=== PATIENT | female | born 1965 | race American Indian/Alaskan Native ===

== ENCOUNTER 2017-02-15 08:26 | Outpatient (CLI) | payer OTHER ==
--- NOTE | 2017-02-15 09:39 | History and Physical Report ---
History of Present Illness Date of examination: 02/15/17 Chief complaint: rt. breast lesion Medications and Allergies Allergies Allergy/AdvReac Type Severity Reaction Status Date / Time No Known Allergies Allergy Unverified 03/25/14 11:38 Home Medications Medication Instructions Recorded Confirmed Last Taken Type Butalb/Acetamin/Caff 50-325-40 1 each PO Q4H PRN #7 tablet 03/25/14 Unknown Rx [Fioricet] amLODIPine [Norvasc] 5 mg PO DAILY #30 tab 03/25/14 Unknown Rx
--- NOTE | 2017-02-15 09:41 | Procedure Note ---
Date of procedure: 02/15/17 Pre-op diagnosis: rt. breast nodule Post-op diagnosis: same Procedure: rt.breast asp. Findings: cyst Anesthesia: local Surgeon: ARMANDO GRIFFIN Estimated blood loss: none Pathology: none Specimen disposition: discarded Condition: stable Disposition: same day
--- NOTE | 2017-02-15 10:09 | Ultrasound Report ---
Ultrasound guided right breast aspiration/right mammogram: The patient presents with outside images demonstrating a hypoechoic, elongated nodule in the 10:00 location with questionable correlation of small nodule on mammogram. Ultrasound imaging of the lateral breast demonstrates the nodule to be relatively anechoic. A second nodule containing a central hilum is also identified as seen on prior study. No other solid masses identified in the area of concern in the upper outer breast. The skin was cleansed with Betadine and 1% lidocaine used for local anesthesia. Under ultrasound guidance the hypoechoic nodule was entered with a 21-gauge needle. The nodule completely collapsed. There is no fluid return in the syringe cylinder. A two-view mammogram was then performed. The nodular area identified on outside mammogram is no longer noted. The mammogram appears generally unremarkable for any suspicious findings. Impressions: Right lymph node and aspirated cyst. Recommendation: Annual mammogram followup. BI-RADS CATEGORY: 2 = Benign ACR BI-RADS MAMMOGRAPHIC CODES: 0 = Needs additional imaging evaluation; 1 = Negative; 2 = Benign; 3 = Probably benign; 4 = Suspicious; 5 = Malignant; 6 = Known biopsy-proven malignancy COMMENT: 1. Dense breast tissue, i.e., adenosis, fibrocystic changes, etc., may obscure an underlying neoplasm. 2. Approximately 10% of cancers are not detected with mammography. 3. A negative mammography report should not delay biopsy if a clinically suspicious mass is present.
== END 2017-02-15 08:27 | disposition home or self-care (01) ==
LOC: US 08:26
PROVIDERS: ATTEND Internal Medicine
DX: N60.01 Solitary cyst of right breast (principal); N63 Unspecified lump in breast
CPT/HCPCS: 19000; G0206

== ENCOUNTER 2018-12-31 10:14 | Outpatient (CLI) | payer OTHER ==
--- NOTE | 2018-12-31 15:31 | Mammography Report ---
BILATERAL DIGITAL SCREENING MAMMOGRAM with CAD: 12/31/18 10:14:00 CLINICAL: Routine screening.History of a benign cyst aspiration of the right breast at 10 o'clock. COMPARISON:02/15/17 FINDINGS: The breasts are heterogeneously dense, which may obscure small masses.A partially circumscribed oval right upper asymmetry is identified on the MLO view and correlates with the previously described cyst that was aspirated. No mass, architectural distortion or suspicious calcifications. IMPRESSION: A benign right upper outer cyst. No mammographic evidence of malignancy. BI-RADS CATEGORY: 2 - - Benign RECOMMENDATION: Routine mammographic screening in one year. COMMENT: Patient follow-up letters are generated by our [employer] application.
== END 2018-12-31 10:15 | disposition home or self-care (01) ==
LOC: MAMMO 10:14
PROVIDERS: ATTEND Internal Medicine
DX: Z12.31 Encounter for screening mammogram for malignant neoplasm of breast (principal)
CPT/HCPCS: 77067

== ENCOUNTER 2021-02-25 00:29 | Emergency (ER) | payer OTHER ==
[2021-02-25 01:26] VITALS: BP 154/79
[2021-02-25] MEDS ORDERED: CONJUGATED ESTROGENS VAG CREAM 30 GM VG ONE (02:33)
[2021-02-25] MEDS ORDERED: SODIUM CHLORIDE 0.9% 1000 ML 1,000 ML IV ONE (02:33)
[2021-02-25] MEDS ORDERED: LORazepam 2 MG/ML VIAL IV ONE (02:34)
[2021-02-25 03:04] LABS: Basophils % (Auto) 0.5 % (0.0-1.8); Eosinophils % (Auto) 0.2 % (0.0-4.3); Hematocrit 39.5 % (30.3-42.9); Hemoglobin 13.1 gm/dl (10.1-14.3); Lymphocytes # (Auto) 1.7 K/mm3 (1.2-5.4); Lymphocytes % (Auto) 23.5 % (13.4-35.0); Mean Corpuscular HGB Conc 33 % (30-34); Mean Corpuscular Volume 85 fl (79-97); Monocytes # (Auto) 0.3 K/mm3 (0.0-0.8); Monocytes % (Auto) 4.1 % (0.0-7.3); Platelet Count 249 K/mm3 (140-440); Red Blood Count 4.64 M/mm3 (3.65-5.03); Red Cell Distribution Width 14.8 % (13.2-15.2)
--- NOTE | 2021-02-25 03:08 | XRay Report ---
CHEST 1 VIEW 02/25/2021 2:42 AM INDICATION / CLINICAL INFORMATION: weakness. COMPARISON: None available. FINDINGS: SUPPORT DEVICES: None. HEART / MEDIASTINUM: No significant abnormality. LUNGS / PLEURA: No significant pulmonary or pleural abnormality. No pneumothorax. ADDITIONAL FINDINGS: No significant additional findings. IMPRESSION: 1. No acute findings. Signer Name: Ciro Cavazos MD Signed: 02/25/2021 3:04 AM Workstation Name: [id number]
[2021-02-25 03:25] LABS: Alanine Aminotransferase 19 units/L (7-56); Albumin 4.7 g/dL (3.9-5); BUN/Creatinine Ratio 13; Blood Urea Nitrogen 13 mg/dL (7-17); Calcium 10.2 mg/dL (8.4-10.2); Hemolysis Index 4
[2021-02-25 03:58] LABS: Mucus,Urine FEW /HPF; RBC,Urine < 1.0 /HPF (0.0-6.0)
[2021-02-25 04:05] LABS: Bilirubin,Urine NEG (Negative); Blood,Urine NEG (Negative); Color,Urine Straw (Yellow); Protein,Urine <15 mg/dL mg/dL (Negative); Urobilinogen,Urine < 2.0 mg/dL (<2.0)
--- NOTE | 2021-02-25 04:51 | Emergency Department Report ---
ED General Adult HPI - General Chief complaint: Medical Clearance Stated complaint: HOT FLASHES Source: patient Mode of arrival: Ambulatory Limitations: No Limitations - History of Present Illness Initial comments: Patient is a 55-year-old postmenopausal -English female with a history of hypertension and anxiety who presents to the ED with complaint of diffuse body aches and pains, burning sensation all over her body with excessive sweats persistently for the last 1 week. Patient states that she knows she has a history of persistent hot flashes but that in the last 1 week her hot flashes have worsened especially in the last 2 days. Patient states that she is unable to sleep because of constantly feeling hot with joint pains and diffuse body aches. Patient states that she was evaluated by her primary care doctor 1 week ago and had some lab tests performed but she is yet to know the lab test results as she has an appointment to follow-up with her primary care physician in the next 5 days. Patient denies dizziness, syncope, chest pain, shortness of breath , fever, chills, cough, nausea and vomiting, diarrhea, dysuria, change in vision, palpitations, headache, cough or sore throat, nasal and sinus congestion. MD Complaint: "Hot flashes" , tingling and burning sensations -: Sudden, week(s) (1) Radiation: non-radiation Severity scale (0 -10): 6 Quality: burning, aching, constant Consistency: constant Improves with: none Worsens with: none Associated Symptoms: denies other symptoms, malaise. denies: confusion, chest pain, cough, diaphoresis, fever/chills, headaches, loss of appetite, nausea/vomiting, rash, seizure, shortness of breath, syncope, weakness Treatments Prior to Arrival: none - Related Data Previous Rx's Medication Instructions Recorded Last Taken Type Butalb/Acetamin/Caff 50-325-40 1 each PO Q4H PRN #7 tablet 03/25/14 Unknown Rx [Fioricet] amLODIPine [Norvasc] 5 mg PO DAILY #30 tab 03/25/14 Unknown Rx Estrogens, Conjugated [Premarin] 1 applicator VG QHS #1 tube 02/25/21 Unknown Rx hydrOXYzine PAMOATE [Vistaril] 50 mg PO Q12H PRN #30 capsule 02/25/21 Unknown Rx Allergies Allergy/AdvReac Type Severity Reaction Status Date / Time No Known Allergies Allergy Unverified 02/25/21 01:21 ED Review of Systems ROS: Stated complaint: HOT FLASHES Other details as noted in HPI Constitutional: malaise, other (diffuse body aches and "feeling hot"). denies: chills, fever, weakness Eyes: denies: eye pain, eye discharge, vision change ENT: denies: ear pain, throat pain, congestion Respiratory: denies: cough, shortness of breath, SOB with exertion, wheezing Cardiovascular: denies: chest pain, palpitations Endocrine: no symptoms reported Gastrointestinal: denies: abdominal pain, nausea, vomiting, diarrhea Genitourinary: denies: urgency, dysuria, discharge Musculoskeletal: arthralgia (diffuse body aches), myalgia, other. denies: back pain, joint swelling Skin: denies: rash, lesions Neurological: denies: headache, weakness, paresthesias Psychiatric: anxiety. denies: depression, auditory hallucinations, visual hallucinations, homicidal thoughts Hematological/Lymphatic: denies: easy bleeding, easy bruising ED Past Medical Hx - Past Medical History Hx Hypertension: Yes Hx Psychiatric Treatment: Yes (Anxiety) - Surgical History Additional Surgical History: c section x 1 - Social History Smoking Status: Never Smoker Substance Use Type: None - Medications Home Medications: Home Medications Medication Instructions Recorded Confirmed Last Taken Type Butalb/Acetamin/Caff 50-325-40 1 each PO Q4H PRN #7 tablet 03/25/14 Unknown Rx [Fioricet] amLODIPine [Norvasc] 5 mg PO DAILY #30 tab 03/25/14 Unknown Rx Estrogens, Conjugated [Premarin] 1 applicator VG QHS #1 tube 02/25/21 Unknown Rx hydrOXYzine PAMOATE [Vistaril] 50 mg PO Q12H PRN #30 capsule 02/25/21 Unknown Rx ED Physical Exam - General Limitations: No Limitations General appearance: alert, in no apparent distress - Head Head exam: Present: atraumatic, normocephalic, normal inspection - Eye Eye exam: Present: normal appearance, PERRL, EOMI Pupils: Present: normal accommodation - ENT ENT exam: Present: normal exam, normal orophraynx, mucous membranes moist, TM's normal bilaterally, normal external ear exam - Neck Neck exam: Present: normal inspection, full ROM. Absent: tenderness, meningismus, lymphadenopathy, thyromegaly - Respiratory Respiratory exam: Present: normal lung sounds bilaterally. Absent: respiratory distress, wheezes, rales, rhonchi, stridor, chest wall tenderness, accessory muscle use, prolonged expiratory - Cardiovascular Cardiovascular Exam: Present: regular rate, normal rhythm, normal heart sounds. Absent: systolic murmur, diastolic murmur, rubs, gallop - GI/Abdominal GI/Abdominal exam: Present: soft, normal bowel sounds. Absent: tenderness, guarding, rebound, hyperactive bowel sounds, hypoactive bowel sounds, organomegaly - Extremities Exam Extremities exam: Present: normal inspection, full ROM, normal capillary refill - Back Exam Back exam: Present: normal inspection, full ROM. Absent: tenderness, CVA tenderness (R), muscle spasm, paraspinal tenderness, vertebral tenderness - Neurological Exam Neurological exam: Present: alert, oriented X3, CN II-XII intact, normal gait, reflexes normal - Psychiatric Psychiatric exam: Present: normal affect, normal mood, anxious. Absent: homicidal ideation, suicidal ideation - Skin Skin exam: Present: warm, dry, intact, normal color. Absent: rash ED Course Vital Signs 02/25/21 01:21 Temperature 98.3 F Pulse Rate 72 Respiratory 18 Rate Blood Pressure 154/79 O2 Sat by Pulse 96 Oximetry ED Medical Decision Making - Lab Data Result diagrams: 02/25/21 02:48 02/25/21 02:48 - Radiology Data Radiology results: report reviewed, image reviewed [address] [address] XRay Report Signed Patient: KAYLA TUCKER MR#: [id number] : 1965 Acct:[id number] Age/Sex: 55 / F ADM Date: 02/25/21 Loc: ED Attending Dr: Ordering Physician: BHPUINDER HENDERSON Date of Service: 02/25/21 Procedure(s): XR chest 1V ap Accession Number(s): [id number] cc: BHUPINDER HENDERSON Fluoro Time In Minutes: CHEST 1 VIEW 02/25/2021 2:42 AM INDICATION / CLINICAL INFORMATION: weakness. COMPARISON: None available. FINDINGS: SUPPORT DEVICES: None. HEART / MEDIASTINUM: No significant abnormality. LUNGS / PLEURA: No significant pulmonary or pleural abnormality. No pneumothorax. ADDITIONAL FINDINGS: No significant additional findings. IMPRESSION: 1. No acute findings. Signer Name: Ciro Cavazos MD Signed: 02/25/2021 3:04 AM Workstation Name: [id number] Transcribed By: MAURO Dictated By: Ciro Cavazos MD Electronically Authenticated By: Ciro Cavazos MD Signed Date/Time: 02/25/21303 DD/ 2 TD/TT: - Medical Decision Making This is a 55-year-old postmenopausal -English female with a history of hypertension and anxiety who presents to the ED with complaint of diffuse body aches and pains, burning sensation all over her body with excessive sweats persistently for the last 1 week. Patient states that she knows she has a history of persistent hot flashes but that in the last 1 week her hot flashes have worsened especially in the last 2 days. Patient states that she is unable to sleep because of constantly feeling hot with joint pains and diffuse body aches. Patient states that she was evaluated by her primary care physician 1 week ago and had some lab tests performed but she is yet to know the lab test results as she has an appointment to follow-up with her primary care physician in the next 5 days. In the ED, patient is alert and oriented x3 and is not in any distress but anxious during the physical exam. Lab test results were reviewed and are all nonactionable. Patient was treated in the ED with normal saline 1 L IV bolus and Ativan for anxiety. On reevaluation, patient felt better and her symptoms resolved and was discharged home on medications. Patient was advised to follow-up with her primary care physician as previously scheduled in 5 days or return to the ED immediately if symptoms get worse. - Differential Diagnosis anxiety; post-menopausal symptoms "Hot flashes", Pneumonia; Viral Syndrome Critical care attestation.: If time is entered above; I have spent that time in minutes in the direct care of this critically ill patient, excluding procedure time. ED Disposition Clinical Impression: Anxiety as acute reaction to exceptional stress, Hot flashes due to menopause Disposition: - TO HOME OR SELFCARE Is pt being admited?: No Does the pt Need Aspirin: No Condition: Stable Instructions: Generalized Anxiety Disorder, Adult, Menopause and Hormone Replacement Therapy Additional Instructions: All lab test results were reviewed and are all nonactionable. Your symptoms are likely due to anxiety complicated by your hot flashes. Therefore take medications as advised, drink plenty of fluids and follow-up with your primary care physician in 5 to 7 days for reevaluation. Return to the ED immediately if symptoms get worse. Prescriptions: Estrogens, Conjugated [Premarin] 1 applicator VG QHS #1 tube hydrOXYzine PAMOATE [Vistaril] 50 mg PO Q12H PRN #30 capsule PRN Reason: Anxiety Referrals: [facility] [Provider Group] - 3-5 Days Forms: Work/School Release Form(ED) Time of Disposition: 04:49 Print Language: [place] CITIZ[place]
== END 2021-02-25 05:10 | disposition home or self-care (01) ==
LOC: ED 00:29
DX: F41.1 Generalized anxiety disorder (principal); F43.0 Acute stress reaction; N95.1 Menopausal and female climacteric states; I10 Essential (primary) hypertension; F41.9 Anxiety disorder, unspecified; Z98.890 Other specified postprocedural states; Z79.899 Other long term (current) drug therapy
CPT/HCPCS: 36415; 71045; 80053; 81001; 84443; 85025; 96361; 96374; 99284; J2060; J7030

== ENCOUNTER 2021-07-18 14:26 | Inpatient (IN) | payer OTHER ==
[2021-07-18] MEDS ORDERED: KETAMINE 500 MG/5 ML VIAL MDV ONE ×2 (14:29→18:30)
[2021-07-18] MEDS ORDERED: ROCURONIUM 50 MG/5 ML INJ IV ONE ×2 (14:29→14:44)
[2021-07-18] MEDS ORDERED: LIP THERAPY VASELINE TP PRN (14:41)
[2021-07-18] MEDS ORDERED: fentaNYL 100 MCG/2 ML INJ IV PRN (14:41)
[2021-07-18] MEDS ORDERED: MINERAL OIL/PETROLATUM, WHITE OPHTH OINT 3.5 GM OU PRN (14:41)
[2021-07-18] MEDS ORDERED: SODIUM CHLORIDE 0.9% 500 ML 500 ML IV ONE (14:44)
[2021-07-18] MEDS ORDERED: KETAMINE 200 MG/20 ML INJ MDV IV ONE ×2 (14:44→18:28)
--- NOTE | 2021-07-18 14:49 | Emergency Department Report ---
ED General Adult HPI - General Chief complaint: Dyspnea/Respdistress Stated complaint: LIZZY PUI?: Yes Time Seen by Provider: 07/18/21 14:40 Source: patient, EMS (Verbal report received from emergency medical services. EMS documentation not available at time of chart dictation ), RN notes reviewed, old records reviewed Mode of arrival: Stretcher Limitations: Altered Mental Status - History of Present Illness Initial comments: The patient was evaluated in the emergency department for symptoms described in the history of present illness. He/she was evaluated in the context of the global COVID-19 pandemic, which necessitated consideration that the patient might be at risk for infection with the virus that causes COVID-19. Institutional protocols and algorithms that pertain to the evaluation of patients at risk for COVID-19 are in a state of rapid change based on information released by regulatory bodies including the CDC and federal and state organizations. These policies and algorithms were followed during the patient's care in the emergency department. Please note that these policies, procedures and recommendations changed on a rapid basis. During the history and physical examination, I had on complete and maximal proximal protective equipment. The patient is a 55-year-old female with a history of obesity and diabetes who is not known to myself previously. She arrives via EMS on a CPAP, and with simultaneous supplemental oxygen running, and is altered, and history is obtained via EMS. EMS reports that they picked up this patient with a complaint of shortness of breath and change in mental status. Her last known well time is not explicitly known. EMS reports the patient was hypoxic in the field to the 50s. On CPAP, she is saturating in the high 60s/low 70s. She is awake and moving 4 extremities. She occasionally tries to take off the CPAP. She is instructed to not take off the CPAP. However, she is altered, does not follow commands or understand instructions. EMS reported normal Accu-Chek in the field. Secondary to alteration in mental status, acute hypoxic respiratory failure, o bvious failure of positive pressure ventilation, this patient is emergently intubated by myself for definitive airway protection. Patient continued on CPAP, and nasal cannula at 15 L/min. She is induced with 200 mg of ketamine, and paralyzed with 100 mg of rocuronium. She receives [id number]-[id number] ventilation, and O2 sat is improved to 91%. Video laryngoscopy is performed, and a 7.5 endotracheal tube is inserted under direct visualization without difficulty. The patient herself is altered, not able to describe the qualitative nature of her symptoms, exacerbating factors, relieving factors or aggravating factors. She is not currently accompanied by friends or family at this time for addit ional information or collateral information -: unknown - Related Data Previous Rx's Medication Instructions Recorded Last Taken Type Butalb/Acetamin/Caff 50-325-40 1 each PO Q4H PRN #7 tablet 03/25/14 Unknown Rx [Fioricet] amLODIPine [Norvasc] 5 mg PO DAILY #30 tab 03/25/14 Unknown Rx Estrogens, Conjugated [Premarin] 1 applicator VG QHS #1 tube 02/25/21 Unknown Rx hydrOXYzine PAMOATE [Vistaril] 50 mg PO Q12H PRN #30 capsule 02/25/21 Unknown Rx Allergies Allergy/AdvReac Type Severity Reaction Status Date / Time No Known Allergies Allergy Unverified 02/25/21 01:21 ED Review of Systems ROS: Stated complaint: LIZZY Other details as noted in HPI Comment: Unobtainable due to pts medical conditions ED Past Medical Hx - Past Medical History Hx Hypertension: Yes Hx Psychiatric Treatment: Yes (Anxiety) - Surgical History Additional Surgical History: c section x 1 - Social History Smoking Status: Never Smoker Substance Use Type: None - Medications Home Medications: Home Medications Medication Instructions Recorded Confirmed Last Taken Type Butalb/Acetamin/Caff 50-325-40 1 each PO Q4H PRN #7 tablet 03/25/14 Unknown Rx [Fioricet] amLODIPine [Norvasc] 5 mg PO DAILY #30 tab 03/25/14 Unknown Rx Estrogens, Conjugated [Premarin] 1 applicator VG QHS #1 tube 02/25/21 Unknown Rx hydrOXYzine PAMOATE [Vistaril] 50 mg PO Q12H PRN #30 capsule 02/25/21 Unknown Rx ED Physical Exam - General Limitations: Altered Mental Status General appearance: anxious, in distress, obese - Head Head exam: Present: atraumatic, normocephalic - Eye Eye exam: Present: normal appearance, PERRL, EOMI - ENT ENT exam: Present: normal exam, normal orophraynx, mucous membranes moist, normal external ear exam - Neck Neck exam: Present: normal inspection, full ROM. Absent: tenderness, meningismus - Respiratory Respiratory exam: Present: accessory muscle use, other (Pulmonary auscultation not performed secondary to lack of disposable stethoscope). 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 Absent: distended, tenderness, guarding, rebound, rigid, pulsatile mass - Extremities Exam Extremities exam: Present: normal inspection, full ROM, other (2+ pulses noted in the bilateral upper and lower extremities. There is no palpable cord. negative Homans sign. Muscular compartments are soft. The pelvis is stable.). Absent: pedal edema, calf tenderness - Back Exam Back exam: Present: normal inspection. Absent: tenderness, CVA tenderness (R), CVA tenderness (L), paraspinal tenderness, vertebral tenderness - Neurological Exam Neurological exam: Present: altered, other (Patient is awake. The patient is nonverbal. The patient is moving 4 extremities.) - Psychiatric Psychiatric exam: Present: anxious - Skin Skin exam: Present: warm, dry, intact, normal color. Absent: rash ED Course Vital Signs 07/18/21 07/18/21 07/18/21 14:40 14:43 14:46 Temperature Pulse Rate 109 H 118 H Respiratory 26 H Rate Blood Pressure 114/70 O2 Sat by Pulse 84 94 91 Oximetry 07/18/21 07/18/21 07/18/21 15:00 15:16 15:22 Temperature 101.8 F H Pulse Rate 110 H 105 H Respiratory 26 H 26 H Rate Blood Pressure 114/70 114/70 O2 Sat by Pulse 87 88 Oximetry 07/18/21 15:37 Temperature Pulse Rate Respiratory Rate Blood Pressure O2 Sat by Pulse 93 Oximetry - Reevaluation(s) Reevaluation #1: 07/18/21 14:50 Differential diagnosis, including but not limited to: Acute hypoxic respiratory failure, acute hypercarbic respiratory failure, acute encephalopathy, toxic metabolic encephalopathy, COVID-19, pneumonia, pulmonary embolism Assessment and plan: 55-year-old female with a nonfocal motor neurologic examination, he was awake, but altered, with an exact last known well time not known, presenting with acute hypoxic respiratory failure and concomitant encephalopathy, has failed positive pressure ventilation, and requires me chanical ventilation for definitive airway management. Place patient on isolation. Start steroids and fluids empirically. Patient likely has Covid, so even though she rules in for sepsis/systemic inflammatory response syndrome, we will withhold 30 cc/kg bolus of IV fluid, these patients may develop acute respiratory distress syndrome. We will defer to the inpatient team to further manage her fluid requirements. We will obtain stat chest x-ray, and CT scan of the brain, and CT angiogram of t he chest. She will be admitted to our critical care unit, and ventilated on a lung protective strategy. Courtesy consultation will be placed for infectious disease to follow on the inpatient side of things, and make recommendations for remdesivir versus other. I will defer to the inpatient team to further follow-up on infectious disease recommendations. I contacted our critical care physician, Dr. Rome, and discussed the patient's history, physical, and available data points at this time. He will be updated in real-time, however, he agrees with placement into the intensive care unit. Start steroids, rectal temperature, stat Accu-Chek, admit to our ICU after initial diagnostics have resulted. 07/18/21 17:08 Patient comfortable on mechanical ventilation. Blood pressure in the 140s/150s at this time. O2 sat 96% on mechanical ventilation. Laboratory studies suggestive of Covid inflammatory process. Elevated troponin is likely a type II troponin leak. CT scan of the brain, CT angiogram chest pending at this time. 07/18/21 17:27 Arterial blood gas demonstrates metabolic acidosis and respiratory acidosis 07/18/21 17:29 07/18/21 17:42 Patient was on 15 mcg per kg per minute of propofol. Blood pressure decreased to the high 70s/low 80s. Propofol decreased. IV fluids ordered. 07/18/21 18:13 As propofol is down titrated, the patient becomes more awake, and agitated. She requires sedation to allow acquisition of diagnostic studies, and to allow for mechanical ventilation. We will de-escalate propofol, and initiate midazolam. We will give a one-time dose of ketamine. Nursing team endorses that the patient is on max dose fentanyl. 07/18/21 18:29 Reevaluation #2: 07/18/21 18:57 After 200 mg of ketamine was personally administered by myself, patient received CT scan of the brain, CT angiogram of the chest without significant incident. Blood pressure currently 114 systolic millimeters of mercury. Patient dissociated. Patient still mechanically ventilated. Antibiotics and steroids ordered. Noncontrast CT scan of the brain to md appears negative for bleed. CT scan of the chest shows multi lobar pneumonia. Hospital physician, Dr. Nat Pacheco to admit to ICU Also, rediscussed sedation package with critical care physician, Dr. Rome. We will de-escalate propofol, and initiate midazolam drip. Further sedation package will depend on how patient tolerates this procedure. 07/18/21 18:59 CT scan chest shows multiple segmental pulmonary emboli. As per discussion with interpreting radiologist, Dr. Gould, there is no saddle pulmonary embolism, no CT evidence of right heart strain, and no main pulmonary artery embolism. We will initiate therapeutic anticoagulation with Lovenox, once noncontrast CT scan of the brain has been interpreted. - Intubation Time Out Performed: No (Emergency situation) Sedative: Ketamine Mg Given: 200 Paralytic: Rocuronium Mg Given: 100 Laryngoscope: fiberoptic video scope Size: 4 Assist Device Used: fiberoptic device ET Tube Size: 7.5 Tube Secured Depth (cm): 22 Tube Secured Location: teeth Tube Placement Confirmation: visualized tube passing t, equal breath sounds bilat, no breath sounds over epi, confirmation by capnometr Patient Tolerated Procedure: well Intubation Complications: none ED Medical Decision Making - Lab Data Result diagrams: 07/18/21 16:00 07/18/21 16:00 Vital Signs 07/18/21 07/18/21 07/18/21 14:40 14:46 15:00 Temperature Pulse Rate 118 H 110 H Respiratory 26 H 26 H Rate Blood Pressure 114/70 O2 Sat by Pulse 84 91 87 Oximetry 07/18/21 07/18/21 15:16 15:22 Temperature 101.8 F H Pulse Rate 105 H Respiratory 26 H Rate Blood Pressure 114/70 O2 Sat by Pulse 88 Oximetry Lab Results 07/18/21 07/18/21 07/18/21 Range/Units 16:00 16:00 16:00 WBC 10.4 (4.5-11.0) K/mm3 RBC 4.20 (3.65-5.03) M/mm3 Hgb 11.6 (10.1-14.3) gm/dl Hct 36.0 (30.3-42.9) % MCV 86 (79-97) fl MCH 28 (28-32) pg MCHC 32 (30-34) % RDW 15.3 H (13.2-15.2) % Plt Count 228 (140-440) K/mm3 Lymph % (Auto) 7.9 L (13.4-35.0) % Ocean % (Auto) 5.6 (0.0-7.3) % Eos % (Auto) 0.0 (0.0-4.3) % Baso % (Auto) 0.2 (0.0-1.8) % Lymph # (Auto) 0.8 L (1.2-5.4) K/mm3 Ocean # (Auto) 0.6 (0.0-0.8) K/mm3 Eos # (Auto) 0.0 (0.0-0.4) K/mm3 Baso # (Auto) 0.0 (0.0-0.1) K/mm3 Seg Neutrophils % 86.3 H (40.0-70.0) % Seg Neutrophils # 9.0 H (1.8-7.7) K/mm3 PT 15.1 H (12.2-14.9) Sec. INR 1.13 (0.87-1.13) APTT 31.9 (24.2-36.6) Sec. Sodium 141 (137-145) mmol/L Potassium 3.5 L (3.6-5.0) mmol/L Chloride 104.3 (98-107) mmol/L Carbon Dioxide 20 L (22-30) mmol/L Anion Gap 20 mmol/L BUN 19 H (7-17) mg/dL Creatinine 1.2 (0.6-1.2) mg/dL Estimated GFR 57 ml/min BUN/Creatinine Ratio 16 % Glucose 140 H (65-100) mg/dL Lactic Acid (0.7-2.0) mmol/L Calcium 8.4 (8.4-10.2) mg/dL Total Bilirubin 0.20 (0.1-1.2) mg/dL AST 43 H (5-40) units/L ALT 16 (7-56) units/L Alkaline Phosphatase 61 (35-129) units/L Lactate Dehydrogenase 705 H (91-180) units/L Total Creatine Kinase 157 H (30-135) units/L C-Reactive Protein 33.00 H (0.00-1.30) mg/dL Total Protein 7.1 (6.3-8.2) g/dL Albumin 3.2 L (3.9-5) g/dL Albumin/Globulin Ratio 0.8 % Salicylates (2.8-20.0) mg/dL Acetaminophen (10.0-30.0) ug/mL Plasma/Serum Alcohol (0-0.07) % Blood Type 07/18/21 07/18/21 07/18/21 Range/Units 16:00 16:00 16:00 WBC (4.5-11.0) K/mm3 RBC (3.65-5.03) M/mm3 Hgb (10.1-14.3) gm/dl Hct (30.3-42.9) % MCV (79-97) fl MCH (28-32) pg MCHC (30-34) % RDW (13.2-15.2) % Plt Count (140-440) K/mm3 Lymph % (Auto) (13.4-35.0) % Ocean % (Auto) (0.0-7.3) % Eos % (Auto) (0.0-4.3) % Baso % (Auto) (0.0-1.8) % Lymph # (Auto) (1.2-5.4) K/mm3 Ocean # (Auto) (0.0-0.8) K/mm3 Eos # (Auto) (0.0-0.4) K/mm3 Baso # (Auto) (0.0-0.1) K/mm3 Seg Neutrophils % (40.0-70.0) % Seg Neutrophils # (1.8-7.7) K/mm3 PT (12.2-14.9) Sec. INR (0.87-1.13) APTT (24.2-36.6) Sec. Sodium (137-145) mmol/L Potassium (3.6-5.0) mmol/L Chloride (98-107) mmol/L Carbon Dioxide (22-30) mmol/L Anion Gap mmol/L BUN (7-17) mg/dL Creatinine (0.6-1.2) mg/dL Estimated GFR ml/min BUN/Creatinine Ratio % Glucose (65-100) mg/dL Lactic Acid 1.40 (0.7-2.0) mmol/L Calcium (8.4-10.2) mg/dL Total Bilirubin (0.1-1.2) mg/dL AST (5-40) units/L ALT (7-56) units/L Alkaline Phosphatase (35-129) units/L Lactate Dehydrogenase (91-180) units/L Total Creatine Kinase (30-135) units/L C-Reactive Protein (0.00-1.30) mg/dL Total Protein (6.3-8.2) g/dL Albumin (3.9-5) g/dL Albumin/Globulin Ratio % Salicylates < 0.3 L (2.8-20.0) mg/dL Acetaminophen 5.7 L (10.0-30.0) ug/mL Plasma/Serum Alcohol (0-0.07) % Blood Type 07/18/21 07/18/21 Range/Units 16:00 16:05 WBC (4.5-11.0) K/mm3 RBC (3.65-5.03) M/mm3 Hgb (10.1-14.3) gm/dl Hct (30.3-42.9) % MCV (79-97) fl MCH (28-32) pg MCHC (30-34) % RDW (13.2-15.2) % Plt Count (140-440) K/mm3 Lymph % (Auto) (13.4-35.0) % Ocean % (Auto) (0.0-7.3) % Eos % (Auto) (0.0-4.3) % Baso % (Auto) (0.0-1.8) % Lymph # (Auto) (1.2-5.4) K/mm3 Ocean # (Auto) (0.0-0.8) K/mm3 Eos # (Auto) (0.0-0.4) K/mm3 Baso # (Auto) (0.0-0.1) K/mm3 Seg Neutrophils % (40.0-70.0) % Seg Neutrophils # (1.8-7.7) K/mm3 PT (12.2-14.9) Sec. INR (0.87-1.13) APTT (24.2-36.6) Sec. Sodium (137-145) mmol/L Potassium (3.6-5.0) mmol/L Chloride (98-107) mmol/L Carbon Dioxide (22-30) mmol/L Anion Gap mmol/L BUN (7-17) mg/dL Creatinine (0.6-1.2) mg/dL Estimated GFR ml/min BUN/Creatinine Ratio % Glucose (65-100) mg/dL Lactic Acid (0.7-2.0) mmol/L Calcium (8.4-10.2) mg/dL Total Bilirubin (0.1-1.2) mg/dL AST (5-40) units/L ALT (7-56) units/L Alkaline Phosphatase (35-129) units/L Lactate Dehydrogenase (91-180) units/L Total Creatine Kinase (30-135) units/L C-Reactive Protein (0.00-1.30) mg/dL Total Protein (6.3-8.2) g/dL Albumin (3.9-5) g/dL Albumin/Globulin Ratio % Salicylates (2.8-20.0) mg/dL Acetaminophen (10.0-30.0) ug/mL Plasma/Serum Alcohol < 0.01 (0-0.07) % Blood Type O POSITIVE - EKG Data -: EKG Interpreted by Oh Rate: tachycardia - EKG Data When compared to previous EKG there are: previous EKG unavailable 07/18/21 15:11 EKG is interpreted at 14: 53 Sinus rhythm, tachycardia, rate 111 bpm. Normal P wave axis. Left axis deviation, left anterior fascicular block. Poor R wave progression. Borderline left ventricular hypertrophy. Nonspecific ST depression. Abnormal EKG. Not a STEMI. - Radiology Data Radiology results: report reviewed, image reviewed [facility] [address] [place] [address] XRay Report Signed Patient: KAYLA TUCKER MR#: [id number] : 1965 Acct:[id number] Age/Sex: 55 / F ADM Date: 07/18/21 Loc: ED Attending Dr: Ordering Physician: GIL SALAS MD Date of Service: 07/18/21 Procedure(s): XR chest 1V ap Accession Number(s): [id number] cc: GIL SALAS MD Fluoro Time In Minutes: CHEST 1 VIEW 07/18/2021 3:04 PM INDICATION / CLINICAL IN FORMATION: Altered Mental Status /ETT PLACEMENT. COMPARISON: 02/25/2021 FINDINGS: SUPPORT DEVICES: ET tube tip 5.5 cm above mirian. NG tube has tip at GE junction with side hole noted in the distal thoracic esophagus. Recommend advancing another 15 cm HEART / MEDIASTINUM: No significant abnormality. LUNGS / PLEURA: Moderate to severe bilateral pneumonia No pneumothorax. ADDITIONAL FINDINGS: No significant additional findings. IMPRESSION: 1. Moderate to severe bilateral pneumonia 2. Malpositioned NG tube tip in distal thoracic esophagus. Signer Name: Vinod Spangler MD Signed: 07/18/2021 3:23 PM Workstation Name: [id number] Transcribed By: TL Dictated By: Vinod Spangler MD Elect ronically Authenticated By: Vinod Spangler MD Signed Date/Time: 07/18/21 1523 DD/ 1522 CT HEAD WITHOUT CONTRAST INDICATION / CLINICAL INFORMATION: Altered Mental Sta tus. TECHNIQUE: All CT scans at this location are performed using CT dose reduction for ALARA by means of automated exposure control. COMPARISON: None available. FINDINGS: HEMORRHAGE: No evidence of intracranial hemorrhage or extra-axial fluid collection. EXTRA-AXIAL SPACES: Cortical sulci, sylvian fissures and basilar cisterns have an unremarkable appearance. VENTRICULAR SYSTEM: The third and lateral ventricles are of normal size and configuration. CEREBRAL PARENCHYMA: No areas of abnormal brain parenchymal attenuation are identified. There is no indication of recent infarction. MIDLINE SHIFT OR HERNIATION: There is no mass effect. CEREBELLUM / BRAINSTEM: Brainstem and cerebellum have an unremarkable appearance. MIDLINE STRUCTURES:No abnormalities of the pituitary gland or pineal region are identified. INTRACRANIAL VESSELS:No abnormalities are identified on this noncontrast head CT. ORBITS: visualized portions of the orbits have an unremarkable appearance. SOFT TISSUES of HEAD: No significant abnormality. CALVARIUM: Evaluation of bone windows reveals no abnormalities. PARANASAL SINUSES / MASTOID AIR CELLS: Visualized portions of the paranasal sinuses are free from inflammatory mucosal disease. Mastoid air cells are normally pneumatized. IMPRESSION: 1. No significant abnormality on head CT without contrast. Signer Name: Cresencio Weiner MD Signed: 07/18/2021 6:01 PM CTA CHEST WITH IV CONTRAST INDICATION: acute resp failure. TECHNIQUE: Axial CT images were obtained through the chest after injection of 100 cc IV contrast. 3 plane MIP reconstructions were produced. All CT scans at this location are performed using CT dose reduction for ALARA by means of automated exposure control. COMPARISON: None available. FINDINGS: PULMONARY ARTERIES: Multiple segmental pulmonary emboli within right lower lobe with small pulmonary emboli within both upper and right middle lobe segmental pulmonary arteries. THORACIC AORTA: No acute abnormality. HEART: Normal. CORONARY ARTERIES: No significant calcification. PLEURA: No pleural effusion. No pneumothorax. LYMPH NODES: No significant adenopathy. LUNGS: Multifocal extensive groundglass and airspace consolidation characteristic for Covid pneumonia ADDITIONAL FINDINGS: ET tube in expected position. UPPER ABDOMEN: Large 13.5 cm left simple renal cyst. NG tube has tip in gastric antrum portion of stomach. SKELETAL STRUCTURES: No significant osseous abnormality. IMPRESSION: 1. Multiple segmental bilateral pulmonary emboli described above 2. Extensive bilateral Covid bronchopneumonia CRITICAL RESULT: Multiple bilateral segmental PTE Time of Discovery (BONDERITE OPERATOR/CDT): 5:59 PM Central time 07/18/2021 Time of Communication (BONDERITE OPERATOR/CDT): 6:01 PM Central time Licensed Practitioner Receiving Report: Gil Salas MD Read-Back Performed: Yes. Signer Name: Vinod Spangler MD Signed: 07/18/2021 6:03 PM Critical Care Time: Yes Critical care time in (mins) excluding proc time.: 120 Critical care attestation.: If time is entered above; I have spent that time in minutes in the direct care of this critically ill patient, excluding procedure time. ED Disposition Clinical Impression: Acute respiratory failure with hypoxia, Acute encephalopathy, Suspected COVID- 19 virus infection, Multiple pulmonary emboli Disposition: ADMITTED INPATIENT Is pt being admited?: Yes Does the pt Need Aspirin: No Condition: Critical Referrals: PRIMARY CARE, [Primary Care Provider] - 3-5 Days
[2021-07-18] MEDS ORDERED: ACETAMINOPHEN 650 MG RECT SUPP PR ONE (15:22)
--- NOTE | 2021-07-18 15:27 | XRay Report ---
CHEST 1 VIEW 07/18/2021 3:04 PM INDICATION / CLINICAL INFORMATION: Altered Mental Status /ETT PLACEMENT. COMPARISON: 02/25/2021 FINDINGS: SUPPORT DEVICES: ET tube tip 5.5 cm above mirian. NG tube has tip at GE junction with side hole noted in the distal thoracic esophagus. Recommend advancing another 15 cm HEART / MEDIASTINUM: No significant abnormality. LUNGS / PLEURA: Moderate to severe bilateral pneumonia No pneumothorax. ADDITIONAL FINDINGS: No significant additional findings. IMPRESSION: 1. Moderate to severe bilateral pneumonia 2. Malpositioned NG tube tip in distal thoracic esophagus. Signer Name: Vinod Spangler MD Signed: 07/18/2021 3:23 PM Workstation Name: [id number]
[2021-07-18] MEDS: fentaNYL DRIP Premix 2,000 MCG/100 ML BAG IV SCH (15:54)
[2021-07-18 16:36] LABS: Basophils % (Auto) 0.2 % (0.0-1.8); Hemoglobin 11.6 gm/dl (10.1-14.3); Lymphocytes # (Auto) 0.8 K/mm3 (1.2-5.4); Lymphocytes % (Auto) 7.9 % (13.4-35.0); Mean Corpuscular HGB Conc 32 % (30-34); Mean Corpuscular Volume 86 fl (79-97); Monocytes # (Auto) 0.6 K/mm3 (0.0-0.8); Monocytes % (Auto) 5.6 % (0.0-7.3); Platelet Count 228 K/mm3 (140-440); Red Cell Distribution Width 15.3 % (13.2-15.2)
[2021-07-18 16:50] LABS: INR 1.13 (0.87-1.13)
[2021-07-18 16:51] LABS: Partial Thromboplastin Time 31.9 Sec. (24.2-36.6)
[2021-07-18 16:55] LABS: Albumin 3.2 g/dL (3.9-5); Calcium 8.4 mg/dL (8.4-10.2)
[2021-07-18 17:15] LABS: Chol/HDL Ratio 3.84 %
[2021-07-18] MEDS ORDERED: SODIUM CHLORIDE 0.9% 1000 ML 1,000 ML ONE (17:33)
[2021-07-18] MEDS ORDERED: SODIUM CHLORIDE 0.9% 1000 ML 1,000 ML IV ONE ×3 (17:40→21:08)
[2021-07-18] MEDS ORDERED: HYDROmorphone 1 MG/1 ML INJ IV ONE (18:12)
[2021-07-18] MEDS ORDERED: AZITHROMYCIN/NS 500 MG/250 ML 500 MG/250 ML BAG IV ONE (18:56)
[2021-07-18] MEDS ORDERED: cefTRIAXone/NS 1 GM/50 ML 1 GM/50 ML BAG IV ONE (18:56)
[2021-07-18] MEDS ORDERED: dexAMETHasone 4 MG/ML VIAL IV ONE (18:56)
--- NOTE | 2021-07-18 19:05 | Cat Scan Report ---
CT HEAD WITHOUT CONTRAST INDICATION / CLINICAL INFORMATION: Altered Mental Status. TECHNIQUE: All CT scans at this location are performed using CT dose reduction for ALARA by means of automated e xposure control. COMPARISON: None available. FINDINGS: HEMORRHAGE: No evidence of intracranial hemorrhage or extra-axial fluid collection. EXTRA-AXIAL SPACES: Cortical sulci, sylvian fissures and basilar cisterns have an unremarkable appear ance. VENTRICULAR SYSTEM: The third and lateral ventricles are of normal size and configuration. CEREBRAL PARENCHYMA: No areas of abnormal brain parenchymal attenuation are identified. There is no i ndication of recent infarction. MIDLINE SHIFT OR HERNIATION: There is no mass effect. CEREBELLUM / BRAINSTEM: Brainstem and cerebellum have an unremarkable appearance. MIDLINE STRUCTURES:No abnormalities of the pituitary gland or pineal region are identified. INTRACRANIAL VESSELS:No abnormalities are identified on this noncontrast head CT. ORBITS: visualized portions of the orbits have an unremarkable appearance. SOFT TISSUES of HEAD: No significant abnormality. CALVARIUM: Evaluation of bone windows reveals no abnormalities. PARANASAL SINUSES / MASTOID AIR CELLS: Visualized portions of the paranasal sinuses are free from inf lammatory mucosal disease. Mastoid air cells are normally pneumatized. IMPRESSION: 1. No significant abnormality on head CT without contrast. Signer Name: Cresencio Weiner MD Signed: 07/18/2021 7:01 PM Workstation Name: [id number]
--- NOTE | 2021-07-18 19:08 | Cat Scan Report ---
CTA CHEST WITH IV CONTRAST INDICATION: acute resp failure. TECHNIQUE: Axial CT images were obtained through the chest after injection of 100 cc IV contrast. 3 plane MIP re constructions were produced. All CT scans at this location are performed using CT dose reduction for ALARA by means of automated exposure control. COMPARISON: None available. FINDINGS: PULMONARY ARTERIES: Multiple segmental pulmonary emboli within right lower lobe with small pulmonary emboli within both upper and right middle lobe segmental pulmonary arteries. THORACIC AORTA: No acute abnormality. HEART: Normal. CORONARY ARTERIES: No significant calcification. PLEURA: No pleural effusion. No pneumothorax. LYMPH NODES: No significant adenopathy. LUNGS: Multifocal extensive groundglass and airspace consolidation characteristic for Covid pneumonia ADDITIONAL FINDINGS: ET tube in expected position. UPPER ABDOMEN: Large 13.5 cm left simple renal cyst. NG tube has tip in gastric antrum portion of sto mach. SKELETAL STRUCTURES: No significant osseous abnormality. IMPRESSION: 1. Multiple segmental bilateral pulmonary emboli described above 2. Extensive bilateral Covid bronchopneumonia CRITICAL RESULT: Multiple bilateral segmental PTE Time of Discovery (CAMERA TECHNICIAN/CDT): 5:59 PM Central time 07/18/2021 Time of Communication (CAMERA TECHNICIAN/CDT): 6:01 PM Central time Licensed Practitioner Receiving Report: Gil Salas MD Read-Back Performed: Yes. Signer Name: Vinod Spangler MD Signed: 07/18/2021 7:03 PM Workstation Name: [id number]
[2021-07-18] MEDS ORDERED: ENOXAPARIN 100 MG/1 ML INJ SUB-Q ONE (19:09)
[2021-07-18 20:15] LABS: Amorphous Crystals,Urine Few; Bacteria,Urine 1+ /HPF (Negative); Bilirubin,Urine NEG (Negative); Blood,Urine NEG (Negative); Color,Urine Yellow (Yellow); Mucus,Urine FEW /HPF; Urobilinogen,Urine < 2.0 mg/dL (<2.0)
[2021-07-18 20:22] LABS: Amphetamine Screen,Urine Negative; Benzodiazepines Screen,Urine Negative; Cannabinoid Screen,Urine Negative; Cocaine Screen,Urine Negative; Methadone Screen,Urine Negative; Opiate Screen,Urine Negative; Protein,Urine >500 mg/dL (Negative)
[2021-07-18] MEDS: MIDAZOLAM 100 MG in SODIUM CHLORIDE 0.9% 80 ML IV SCH (20:34)
[2021-07-18] MEDS: FAMOTIDINE 20 MG/2 ML INJ IV SCH (21:41)
--- NOTE | 2021-07-18 22:04 | XRay Report ---
ABDOMEN 1 VIEW 07/18/2021 9:43 PM INDICATION / CLINICAL INFORMATION: confirm OGT placement. COMPARISON: None available. FINDINGS: TUBES / LINES: Esophagogastric tube projects over the right abdomen possibly in the proximal duodenum . BOWEL GAS PATTERN: No significant abnormality. FREE AIR / EXTRALUMINAL GAS: None. ADDITIONAL FINDINGS: No significant additional findings. IMPRESSION: 1. Esophagogastric tube possibly in the duodenum. Tube could be pulled back about 7 cm for optimal po sitioning Signer Name: Kirsty Christian MD Signed: 07/18/2021 10:00 PM Workstation Name: [id number]
--- NOTE | 2021-07-18 22:48 | History and Physical Report ---
History of Present Illness Date of examination: 07/18/21 Date of admission: 07/18/2021 Chief complaint: Respiratory distress since a.m. History of present illness: 55-year-old -[place] female with history of hypertension and diabetes brought in by EMS with very low oxygen saturations and on CPAP. In spite of being on CPAP patient was saturating in the high 20s 60s and low 70s. Patient is awake and moving all 4 extremities. Patient also fighting to take out the CPAP. Because of the persistently low oxygen levels patient was intubated in the emergency room to improve the oxygenation levels. Patient was intubated emergently by Dr. Dumont in the emergency room. Status of vaccination with Covid not known. Much history is not available. - Past Medical History --Hypertension: Yes --Psychiatric Treatment: Yes (Anxiety) - Surgical History Additional Surgical History: c section x 1 - Social History Smoking Status: Never Smoker Substance Use Type: None Family history unavailable - Medications Home Medications: Home Medications Medication Instructions Recorded Confirmed Last Taken Type Butalb/Acetamin/Caff 50-325-40 1 each PO Q4H PRN #7 tablet 03/25/14 Unknown Rx [Fioricet] amLODIPine [Norvasc] 5 mg PO DAILY #30 tab 03/25/14 Unknown Rx Estrogens, Conjugated [Premarin] 1 applicator VG QHS #1 tube 02/25/21 Unknown Rx hydrOXYzine PAMOATE [Vistaril] 50 mg PO Q12H PRN #30 capsule 02/25/21 Unknown Rx Review of Systems ROS: Stated complaint: LIZZY Other details as noted in HPI Comment: Unobtainable due to pts medical conditions Medications and Allergies Allergies Allergy/AdvReac Type Severity Reaction Status Date / Time No Known Allergies Allergy Unverified 02/25/21 01:21 Home Medications Medication Instructions Recorded Confirmed Last Taken Type Butalb/Acetamin/Caff 50-325-40 1 each PO Q4H PRN #7 tablet 03/25/14 Unknown Rx [Fioricet] amLODIPine [Norvasc] 5 mg PO DAILY #30 tab 03/25/14 Unknown Rx Estrogens, Conjugated [Premarin] 1 applicator VG QHS #1 tube 02/25/21 Unknown Rx hydrOXYzine PAMOATE [Vistaril] 50 mg PO Q12H PRN #30 capsule 02/25/21 Unknown Rx Active Meds: Active Medications Famotidine (Famotidine 20 Mg/2 Ml Inj) 20 mg IV BID [facility] Last Admin: 07/18/21 21:41 Dose: 20 mg Documented by: Fentanyl (Fentanyl 100 Mcg/2 Ml Inj) 50 mcg IV Q10MIN PRN PRN Reason: ANALGESIA Hydrophilic Ointment (Lip Therapy Vaseline) 1 applic TP Q2HR PRN PRN Reason: Dry Lips Fentanyl Citrate (Fentanyl Drip Premix) 2,000 mcg in 100 mls @ 4.915 mls/hr IV TITR [facility]; Protocol Last Admin: 07/18/21 15:54 Dose: 1 mcg/kg/hr, 4.915 mls/hr Documented by: Midazolam HCl 100 mg/ Sodium (Chloride) 100 mls @ 2 mls/hr IV TITR [facility]; Protocol Last Admin: 07/18/21 20:34 Dose: 2 mg/hr, 2 mls/hr Documented by: Midazolam HCl (Midazolam 2 Mg/2 Ml Inj) 2 mg IV Q10MIN PRN PRN Reason: Sedation Multi-Ingred Cream/Lotion/Oil/Oint (Mineral Oil/Petrolatum, White Ophth Oint 3.5 Gm) 1 applic OU Q4HR PRN PRN Reason: Dry Eye(s) Senna/Docusate Sodium (Sennosides/Docusate Sodium 8.6/50 Mg Tab) 1 tab FEEDTUBE BID [facility] Exam - Physical Exam Narrative exam: Patient intubated - Constitutional Vitals: Temp Pulse Resp BP Pulse Ox 97.7 F 70 24 97/60 94 07/18/21 19:50 07/18/21 22:37 07/18/21 21:00 07/18/21 22:37 07/18/21 22:37 General appearance: Present: severe distress, well-nourished - EENT Eyes: Present: PERRL ENT: hearing intact, clear oral mucosa - Neck Neck: Present: supple, normal ROM - Respiratory Respiratory effort: normal Respiratory: bilateral: CTA - Cardiovascular Heart rate: 98 Rhythm: regular Heart Sounds: Present: S1 & S2. Absent: rub, click - Extremities Extremities: pulses symmetrical, No edema Peripheral Pulses: within normal limits - Abdominal General gastrointestinal: Present: soft, non-tender, non-distended, normal bowel sounds Female genitourinary: Present: normal - Integumentary Integumentary: Present: clear, warm, dry - Musculoskeletal Musculoskeletal: strength equal bilaterally, other (Patient sedated) - Psychiatric Psychiatric: other (Patient sedated) - Neurologic Neurologic: CNII-XII intact, moves all extremities - Allied Health Allied health notes reviewed: nursing, case management HEART Score - HEART Score Troponin: Troponin T 0.106 ng/mL (0.00-0.029) H* 07/18/21 16:00 Results - Labs CBC & Chem 7: 07/19/21 04:59 07/19/21 04:59 Labs: Laboratory Last Values WBC 10.4 K/mm3 (4.5-11.0) 07/18/21 16:00 RBC 4.20 M/mm3 (3.65-5.03) 07/18/21 16:00 Hgb 11.6 gm/dl (10.1-14.3) 07/18/21 16:00 Hct 36.0 % (30.3-42.9) 07/18/21 16:00 MCV 86 fl (79-97) 07/18/21 16:00 MCH 28 pg (28-32) 07/18/21 16:00 MCHC 32 % (30-34) 07/18/21 16:00 RDW 15.3 % (13.2-15.2) H 07/18/21 16:00 Plt Count 228 K/mm3 (140-440) 07/18/21 16:00 Lymph % (Auto) 7.9 % (13.4-35.0) L 07/18/21 16:00 [place] % (Auto) 5.6 % (0.0-7.3) 07/18/21 16:00 Eos % (Auto) 0.0 % (0.0-4.3) 07/18/21 16:00 Baso % (Auto) 0.2 % (0.0-1.8) 07/18/21 16:00 Lymph # (Auto) 0.8 K/mm3 (1.2-5.4) L 07/18/21 16:00 [place] # (Auto) 0.6 K/mm3 (0.0-0.8) 07/18/21 16:00 Eos # (Auto) 0.0 K/mm3 (0.0-0.4) 07/18/21 16:00 Baso # (Auto) 0.0 K/mm3 (0.0-0.1) 07/18/21 16:00 Seg Neutrophils % 86.3 % (40.0-70.0) H 07/18/21 16:00 Seg Neutrophils # 9.0 K/mm3 (1.8-7.7) H 07/18/21 16:00 PT 15.1 Sec. (12.2-14.9) H 07/18/21 16:00 INR 1.13 (0.87-1.13) 07/18/21 16:00 APTT 31.9 Sec. (24.2-36.6) 07/18/21 16:00 D-Dimer > 09332 ng/mlDDU (0-234) H 07/18/21 16:00 ABG pH 7.275 (7.320-7.450) L 07/18/21 Unknown POC ABG pCO2 41.5 mmHg (32.0-48.0) 07/18/21 Unknown POC ABG pO2 68.7 mmHg (83-108) L 07/18/21 Unknown POC ABG HCO3 18.8 07/18/21 Unknown ABG O2 Saturation 88.4 (0-100) 07/18/21 Unknown POC ABG Base Excess -7.6 07/18/21 Unknown ABG Hemoglobin 12.6 (12.0-17.5) 07/18/21 Unknown ABG Oxyhemoglobin 88.3 (94-98) L 07/18/21 Unknown ABG Methemoglobin 0.1 (0.0-1.5) 07/18/21 Unknown ABG Sodium 140.1 mmol/L (136.0-145.0) 07/18/21 Unknown ABG Potassium 3.7 mmol/L (3.40-4.50) 07/18/21 Unknown ABG Chloride 105.0 mmol/L (98-107) 07/18/21 Unknown ABG Glucose 170 mg/dL (65-95) H 07/18/21 Unknown Carboxyhemoglobin 0 (0.5-1.5) L 07/18/21 Unknown FiO2 % 100.0 07/18/21 Unknown Sodium 141 mmol/L (137-145) 07/18/21 16:00 Potassium 3.5 mmol/L (3.6-5.0) L 07/18/21 16:00 Chloride 104.3 mmol/L (98-107) 07/18/21 16:00 Carbon Dioxide 20 mmol/L (22-30) L 07/18/21 16:00 Anion Gap 20 mmol/L 07/18/21 16:00 BUN 19 mg/dL (7-17) H 07/18/21 16:00 Creatinine 1.2 mg/dL (0.6-1.2) 07/18/21 16:00 Estimated GFR 57 ml/min 07/18/21 16:00 BUN/Creatinine Ratio 16 % 07/18/21 16:00 Glucose 140 mg/dL (65-100) H 07/18/21 16:00 Lactic Acid 1.40 mmol/L (0.7-2.0) 07/18/21 16:00 Calcium 8.4 mg/dL (8.4-10.2) 07/18/21 16:00 Ferritin 657.0 ng/mL (10.0-200.0) H 07/18/21 16:00 Total Bilirubin 0.20 mg/dL (0.1-1.2) 07/18/21 16:00 AST 43 units/L (5-40) H 07/18/21 16:00 ALT 16 units/L (7-56) 07/18/21 16:00 Alkaline Phosphatase 61 units/L (35-129) 07/18/21 16:00 Ammonia 37.0 umol/L (25-60) 07/18/21 16:00 Lactate Dehydrogenase 705 units/L (91-180) H 07/18/21 16:00 Total Creatine Kinase 157 units/L (30-135) H 07/18/21 16:00 Troponin T 0.106 ng/mL (0.00-0.029) H* 07/18/21 16:00 C-Reactive Protein 33.00 mg/dL (0.00-1.30) H 07/18/21 16:00 Total Protein 7.1 g/dL (6.3-8.2) 07/18/21 16:00 Albumin 3.2 g/dL (3.9-5) L 07/18/21 16:00 Albumin/Globulin Ratio 0.8 % 07/18/21 16:00 Triglycerides 156 mg/dL (2-149) H 07/18/21 16:00 Cholesterol 127 mg/dL (50-199) 07/18/21 16:00 LDL Cholesterol Direct 64 mg/dL (50-130) 07/18/21 16:00 HDL Cholesterol 33 mg/dL (40-59) L 07/18/21 16:00 Cholesterol/HDL Ratio 3.84 % 07/18/21 16:00 Procalcitonin 1.28 ng/mL (<0.15) 07/18/21 16:00 TSH 0.384 mlU/mL (0.270-4.200) 07/18/21 16:00 Arterial Blood Glucose 170 mg/dL (65-95) H 07/18/21 Unknown Urine Color Yellow (Yellow) 07/18/21 Unknown Urine Turbidity Slightly-cloudy (Clear) 07/18/21 Unknown Urine pH 5.0 (5.0-7.0) 07/18/21 Unknown Ur Specific [place] 1.020 (1.003-1.030) 07/18/21 Unknown Urine Protein >500 mg/dL (Negative) 07/18/21 Unknown Urine Glucose (UA) Neg mg/dL (Negative) 07/18/21 Unknown Urine Ketones 20 mg/dL (Negative) 07/18/21 Unknown Urine Blood Neg (Negative) 07/18/21 Unknown Urine Nitrite Neg (Negative) 07/18/21 Unknown Urine Bilirubin Neg (Negative) 07/18/21 Unknown Urine Urobilinogen < 2.0 mg/dL (<2.0) 07/18/21 Unknown Ur Leukocyte Esterase Neg (Negative) 07/18/21 Unknown Urine WBC (Auto) 9.0 /HPF (0.0-6.0) H 07/18/21 Unknown Urine RBC (Auto) 2.0 /HPF (0.0-6.0) 07/18/21 Unknown U Epithel Cells (Auto) 1.0 /HPF (0-13.0) 07/18/21 Unknown Urine Bacteria (Auto) 1+ /HPF (Negative) 07/18/21 Unknown Amorphous Crystals Few 07/18/21 Unknown Urine Mucus Few /HPF 07/18/21 Unknown Salicylates < 0.3 mg/dL (2.8-20.0) L 07/18/21 16:00 Urine Opiates Screen Negative 07/18/21 Unknown Urine Methadone Screen Negative 07/18/21 Unknown Acetaminophen 5.7 ug/mL (10.0-30.0) L 07/18/21 16:00 Ur Barbiturates Screen Negative 07/18/21 Unknown Ur Phencyclidine Scrn Negative 07/18/21 Unknown Ur Amphetamines Screen Negative 07/18/21 Unknown U Benzodiazepines Scrn Negative 07/18/21 Unknown Urine Cocaine Screen Negative 07/18/21 Unknown U Marijuana (THC) Screen Negative 07/18/21 Unknown Drugs of Abuse Note Disclamer 07/18/21 Unknown Plasma/Serum Alcohol < 0.01 % (0-0.07) 07/18/21 16:00 Blood Type O POSITIVE 07/18/21 16:05 Antibody Screen Negative 07/18/21 16:05 Short CBC 07/18/21 07/19/21 Range/Units 16:00 04:59 WBC 10.4 10.3 (4.5-11.0) K/mm3 Hgb 11.6 10.8 (10.1-14.3) gm/dl Hct 36.0 32.9 (30.3-42.9) % Plt Count 228 182 (140-440) K/mm3 BMP 07/18/21 07/19/21 16:00 04:59 Sodium 141 142 Potassium 3.5 L 4.5 D Chloride 104.3 108.8 H Carbon Dioxide 20 L 21 L BUN 19 H 28 H Creatinine 1.2 1.8 H Glucose 140 H 145 H Calcium 8.4 7.8 L Cardiac Enzymes 07/18/21 Range/Units 16:00 Total Creatine Kinase 157 H (30-135) units/L Troponin T 0.106 H* (0.00-0.029) ng/mL Liver Function 07/18/21 07/19/21 Range/Units 16:00 04:59 Total Bilirubin 0.20 0.20 (0.1-1.2) mg/dL AST 43 H 36 (5-40) units/L ALT 16 14 (7-56) units/L Alkaline Phosphatase 61 58 (35-129) units/L Albumin 3.2 L 3.2 L (3.9-5) g/dL Urine 07/18/21 Range/Units Unknown Urine Color Yellow (Yellow) Urine pH 5.0 (5.0-7.0) Ur Specific [place] 1.020 (1.003-1.030) Urine Protein >500 (Negative) mg/dL Urine Glucose (UA) Neg (Negative) mg/dL Microbiology: Microbiology 07/18/21 16:00 Peripheral/Venous Blood Culture - Preliminary Culture in Progress 07/18/21 16:00 Peripheral/Venous Blood Culture - Preliminary Culture in Progress - Imaging and Cardiology EKG: report reviewed Chest x-ray: report reviewed CT Scan - head: report reviewed Imaging and Cardiology: Chest x-ray Moderate to severe bilateral pneumonia Malpositioned NG tube tip in the distal thoracic esophagus Head CT No significant abnormality on head CT without contrast Chest CTA Multiple segmental bilateral pulmonary emboli described above Extensive bilateral COVID bronchopneumonia Chest x-ray Nasogastric tube in the duodenum tube can be pulled back about 7 scheduled weeks Assessment and Plan Assessment and plan: Critical care statement The high probability OF a clinically significant sudden or life-threatening deterioration of the cardiorespiratory system and endocrine system required my full and direct attention, intervention and postoperative management. The [facility] critical care time was 40 minutes. The time is in addition to time spent performing reported procedures but includes the followin: Data review and interpretation 2: Patient assessment and monitoring of vital signs 3: Documentation 4:: Medication orders and management Advance Directives: Yes (Full code) VTE prophylaxis?: Chemical Plan of care discussed with patient/family: Yes - Patient Problems (1) Acute encephalopathy Current Visit: Yes Status: Acute Plan to address problem: Secondary to hypoxia and respiratory failure CHF no infection-highly likely to be Covid pneumonia (2) Acute respiratory failure with hypoxia Current Visit: Yes Status: Acute Plan to address problem: Secondary to bilateral pneumonia and possible Covid pneumonia Vent support Home Sales Consultant consult requested (3) Multiple pulmonary emboli Current Visit: Yes Status: Acute Plan to address problem: Patient on weight-based Lovenox for multiple pulmonary emboli (4) Suspected COVID-19 virus infection Current Visit: Yes Status: Acute Plan to address problem: Coronavirus PCR in a.m. Patient on IV Solu-Medrol 60 mg every 8 hours ID consult requested (5) ION (acute kidney injury) Current Visit: Yes Status: Acute Plan to address problem: Possible vasomotor nephropathy IV fluids for now (6) DVT prophylaxis Current Visit: Yes Status: Acute Plan to address problem: Patient on Lovenox and GI prophylaxis
[2021-07-18] MEDS ORDERED: ONDANSETRON 4 MG/2 ML INJ IV PRN (22:49)
[2021-07-18] MEDS ORDERED: oxyCODONE /ACETAMINOPHEN 5-325MG TAB PO PRN (22:51)
[2021-07-18] MEDS ORDERED: SIMPLE SYRUP 15 ML FEEDTUBE PRN ×2 (22:56)
[2021-07-18] MEDS ORDERED: SODIUM BICARBONATE 325 MG TAB FEEDTUBE PRN (22:56)
[2021-07-18] MEDS ORDERED: LIPASE 10,500/PROTEASE 25,000/AMYLASE 43,750 (UNITS) DR CAP FEEDTUBE PRN (22:56)
[2021-07-18] MEDS ORDERED: SODIUM CHLORIDE 0.9% 1000 ML 1,000 ML IV SCH (23:00)
[2021-07-18] MEDS: SENNOSIDES/DOCUSATE SODIUM 8.6/50 MG TAB FEEDTUBE SCH (23:11)
[2021-07-18] MEDS: methylPREDNISolone Sod Succinate 125 MG/2 ML INJ IV SCH (23:20)
[2021-07-19 05:50] LABS: Basophils % (Auto) 0.1 % (0.0-1.8); Eosinophils % (Auto) 0.1 % (0.0-4.3); Hematocrit 32.9 % (30.3-42.9); Hemoglobin 10.8 gm/dl (10.1-14.3); Lymphocytes # (Auto) 1.1 K/mm3 (1.2-5.4); Lymphocytes % (Auto) 10.7 % (13.4-35.0); Mean Corpuscular HGB Conc 33 % (30-34); Mean Corpuscular Volume 87 fl (79-97); Monocytes # (Auto) 0.5 K/mm3 (0.0-0.8); Monocytes % (Auto) 4.8 % (0.0-7.3); Platelet Count 182 K/mm3 (140-440)
[2021-07-19] MEDS: methylPREDNISolone Sod Succinate 125 MG/2 ML INJ IV SCH ×2 (05:54→15:07)
[2021-07-19 06:03] LABS: Albumin 3.2 g/dL (3.9-5); Calcium 7.8 mg/dL (8.4-10.2)
[2021-07-19] MEDS ORDERED: ENOXAPARIN 40 MG/0.4 ML INJ SUB-Q SCH (10:00)
[2021-07-19] MEDS: ENOXAPARIN 100 MG/1 ML INJ SUB-Q SCH ×2 (11:00→22:00)
[2021-07-19] MEDS: SENNOSIDES/DOCUSATE SODIUM 8.6/50 MG TAB FEEDTUBE SCH ×2 (11:36→22:00)
[2021-07-19] MEDS: FAMOTIDINE 20 MG/2 ML INJ IV SCH (11:36)
--- NOTE | 2021-07-19 12:12 | Consultation ---
History of Present Illness Consult date: 07/19/21 Requesting physician: VITO HERNANDEZ Reason for consult: hypoxemia, abnormal CXR/CT (Concern for COVID, acute respiratory failure.), other (acute respiratory failure requiring intubation) History of present illness: 55 y/o obese female admitted via the ED where she was electively intubated for hypoxic respiratory failure. Patient brought in on CPAP via EMS with sats in the 60's. Patient was awake and alert per ED note prior to intubation. CUrrently sedated on Versed and Fentany. Has severe ARDs, and CTA is consistent with multisubsegemental PE. Remainder of history could not be obtained. Past History Past Medical History: diabetes, hypertension, other (obesity) Past Surgical History: Other (unable to obtain) Social history: other (unable to obtain) Family history: other (unable to obtain) Medications and Allergies Allergies Allergy/AdvReac Type Severity Reaction Status Date / Time No Known Allergies Allergy Unverified 02/25/21 01:21 Home Medications Medication Instructions Recorded Confirmed Last Taken Type Butalb/Acetamin/Caff 50-325-40 1 each PO Q4H PRN #7 tablet 03/25/14 Unknown Rx [Fioricet] amLODIPine [Norvasc] 5 mg PO DAILY #30 tab 03/25/14 Unknown Rx Estrogens, Conjugated [Premarin] 1 applicator VG QHS #1 tube 02/25/21 Unknown Rx hydrOXYzine PAMOATE [Vistaril] 50 mg PO Q12H PRN #30 capsule 02/25/21 Unknown Rx Active Meds: Active Medications Acetaminophen (Acetaminophen 325 Mg Tab) 650 mg PO Q4H PRN PRN Reason: Pain MILD(1-3)/Fever >100.5/URENA Lipase/Protease/Amylase (Lipase 10,500/Protease 25,000/Amylase 43,750 (Units) Dr Alvarado) 1 each FEEDTUBE PRN PRN PRN Reason: For Clogged Feeding Tube Enoxaparin Sodium (Enoxaparin 100 Mg/1 Ml Inj) 100 mg SUB-Q Q12HR [facility]; Protocol Last Admin: 07/19/21 11:00 Dose: 100 mg Documented by: Famotidine (Famotidine 20 Mg/2 Ml Inj) 20 mg IV BID [facility] Last Admin: 07/19/21 11:36 Dose: 20 mg Documented by: Fentanyl (Fentanyl 100 Mcg/2 Ml Inj) 50 mcg IV Q10MIN PRN PRN Reason: ANALGESIA Hydrophilic Ointment (Lip Therapy Vaseline) 1 applic TP Q2HR PRN PRN Reason: Dry Lips Fentanyl Citrate (Fentanyl Drip Premix) 2,000 mcg in 100 mls @ 4.915 mls/hr IV TITR [facility]; Protocol Last Titration: 07/19/21 09:29 Dose: 1 mcg/kg/hr, 4.915 mls/hr Documented by: Midazolam HCl 100 mg/ Sodium (Chloride) 100 mls @ 2 mls/hr IV TITR [facility]; Protocol Last Titration: 07/19/21 09:28 Dose: 5 mg/hr, 5 mls/hr Documented by: Sodium Chloride (Nacl 0.9% 1000 Ml) 1,000 mls @ 75 mls/hr IV DIRECT [facility] Stop: 07/19/21 16:00 Last Admin: 07/19/21 07:02 Dose: 75 mls/hr Documented by: Azithromycin (Zithromax/Ns) 500 mg in 250 mls @ 250 mls/hr IV Q24H [facility] Ceftriaxone Sodium (Rocephin/Ns 2 Gm/100 Ml) 2 gm in 100 mls @ 200 mls/hr IV Q24H [facility]; Protocol Methylprednisolone Sodium Succinate (Methylprednisolone Sod Succinate 125 Mg/2 Ml Inj) 60 mg IV Q8HR [facility] Last Admin: 07/19/21 05:54 Dose: 60 mg Documented by: Midazolam HCl (Midazolam 2 Mg/2 Ml Inj) 2 mg IV Q10MIN PRN PRN Reason: Sedation Multi-Ingred Cream/Lotion/Oil/Oint (Mineral Oil/Petrolatum, White Ophth Oint 3.5 Gm) 1 applic OU Q4HR PRN PRN Reason: Dry Eye(s) Ondansetron HCl (Ondansetron 4 Mg/2 Ml Inj) 4 mg IV Q8H PRN PRN Reason: Nausea And Vomiting Oxycodone/Acetaminophen (Oxycodone /Acetaminophen 5-325mg Tab) 1 tab PO Q6H PRN PRN Reason: Pain, Moderate (4-6) Senna/Docusate Sodium (Sennosides/Docusate Sodium 8.6/50 Mg Tab) 1 tab FEEDTUBE BID [facility] Last Admin: 07/19/21 11:36 Dose: Not Given Documented by: Simple Syrup (Simple Syrup 15 Ml) 15 ml FEEDTUBE PRN PRN PRN Reason: Hypoglycemia Simple Syrup (Simple Syrup 15 Ml) 30 ml FEEDTUBE PRN PRN PRN Reason: Hypoglycemia Sodium Bicarbonate (Sodium Bicarbonate 325 Mg Tab) 325 mg FEEDTUBE PRN PRN PRN Reason: For Clogged Feeding Tube Sodium Chloride (Sodium Chloride 0.9% 10 Ml Flush Syringe) 10 ml IV BID [facility] Last Admin: 07/19/21 11:36 Dose: 10 ml Documented by: Sodium Chloride (Sodium Chloride 0.9% 10 Ml Flush Syringe) 10 ml IV PRN PRN PRN Reason: LINE FLUSH Review of Systems ROS unobtainable: due to endotracheal tube, due to mental status Physical Examination Vital signs: Vital Signs Pulse Ox 84 07/18/21 14:40 General appearance: comatose ENT: other (orally intubated and sedated) Results - Laboratory Findings CBC and BMP: 07/19/21 04:59 07/19/21 04:59 ABG ABG pH 7.391 (7.320-7.450) 07/19/21 04:33 POC ABG pCO2 34.1 mmHg (32.0-48.0) 07/19/21 04:33 POC ABG pO2 53.1 mmHg (83-108) L 07/19/21 04:33 POC ABG HCO3 20.2 07/19/21 04:33 ABG O2 Saturation 85.6 (0-100) 07/19/21 04:33 PT/INR, D-dimer PT 15.1 Sec. (12.2-14.9) H 07/18/21 16:00 INR 1.13 (0.87-1.13) 07/18/21 16:00 D-Dimer > 80014 ng/mlDDU (0-234) H 07/18/21 16:00 Abnormal lab findings: Abnormal Labs 07/18/21 07/18/21 07/18/21 16:00 16:00 16:00 RDW 15.3 H Lymph % (Auto) 7.9 L Lymph # (Auto) 0.8 L Seg Neutrophils % 86.3 H Seg Neutrophils # 9.0 H PT 15.1 H D-Dimer > 46274 H ABG pH POC ABG pO2 ABG Oxyhemoglobin ABG Chloride ABG Glucose Carboxyhemoglobin Potassium 3.5 L Chloride Carbon Dioxide 20 L BUN 19 H Creatinine Glucose 140 H Calcium Ferritin AST 43 H Lactate Dehydrogenase 705 H Total Creatine Kinase 157 H Troponin T 0.106 H* C-Reactive Protein 33.00 H Total Protein Albumin 3.2 L Triglycerides 156 H HDL Cholesterol 33 L Arterial Blood Glucose Urine WBC (Auto) Salicylates Acetaminophen 07/18/21 07/18/21 07/18/21 16:00 16:00 16:00 RDW Lymph % (Auto) Lymph # (Auto) Seg Neutrophils % Seg Neutrophils # PT D-Dimer ABG pH POC ABG pO2 ABG Oxyhemoglobin ABG Chloride ABG Glucose Carboxyhemoglobin Potassium Chloride Carbon Dioxide BUN Creatinine Glucose Calcium Ferritin 657.0 H AST Lactate Dehydrogenase Total Creatine Kinase Troponin T C-Reactive Protein Total Protein Albumin Triglycerides HDL Cholesterol Arterial Blood Glucose Urine WBC (Auto) Salicylates < 0.3 L Acetaminophen 5.7 L 07/18/21 07/18/21 07/19/21 Unknown Unknown 04:33 RDW Lymph % (Auto) Lymph # (Auto) Seg Neutrophils % Seg Neutrophils # PT D-Dimer ABG pH 7.275 L POC ABG pO2 68.7 L 53.1 L ABG Oxyhemoglobin 88.3 L 85.3 L ABG Chloride 109.0 H ABG Glucose 170 H 150 H Carboxyhemoglobin 0 L 0.3 L Potassium Chloride Carbon Dioxide BUN Creatinine Glucose Calcium Ferritin AST Lactate Dehydrogenase Total Creatine Kinase Troponin T C-Reactive Protein Total Protein Albumin Triglycerides HDL Cholesterol Arterial Blood Glucose 170 H 150 H Urine WBC (Auto) 9.0 H Salicylates Acetaminophen 07/19/21 07/19/21 04:59 04:59 RDW 16.0 H Lymph % (Auto) 10.7 L Lymph # (Auto) 1.1 L Seg Neutrophils % 84.3 H Seg Neutrophils # 8.7 H PT D-Dimer ABG pH POC ABG pO2 ABG Oxyhemoglobin ABG Chloride ABG Glucose Carboxyhemoglobin Potassium Chloride 108.8 H Carbon Dioxide 21 L BUN 28 H Creatinine 1.8 H Glucose 145 H Calcium 7.8 L Ferritin AST Lactate Dehydrogenase Total Creatine Kinase Troponin T C-Reactive Protein Total Protein 6.2 L Albumin 3.2 L Triglycerides HDL Cholesterol Arterial Blood Glucose Urine WBC (Auto) Salicylates Acetaminophen - Diagnostic Findings Chest x-ray: image reviewed CT scan - chest: image reviewed Assessment and Plan 55 y/o obese female with acute respiratory failure, pulmonary embolism, now with renal failure, most likely all secondary to COVID 19 1. Follow up COVID testing, continue isolation 2. Agree with high dose IV steroids, if positive, will change to solumedrol [id number] 3. If positive then would need remdesivir and Actemra, hopefully still a candidate given bump in renal function 4. Unable to prone patient at moment, but did increase PEEP to 20 and ordered repeat ABG at 1400 5 Very very guarded prognosis CCT 31 minutes.
--- NOTE | 2021-07-19 13:09 | Progress Note ---
Hospitalist Physical - Constitutional Vitals: Temp Pulse Resp BP Pulse Ox 97.7 F 64 26 H 120/76 97 07/18/21 19:50 07/19/21 11:37 07/19/21 11:37 07/19/21 11:37 07/19/21 11:37 General appearance: Present: severe distress, well-nourished HEART Score - HEART Score Troponin: Troponin T 0.106 ng/mL (0.00-0.029) H* 07/18/21 16:00 Results - Labs CBC & Chem 7: 07/19/21 04:59 07/19/21 04:59 Labs: Laboratory Last Values WBC 10.3 K/mm3 (4.5-11.0) 07/19/21 04:59 RBC 3.80 M/mm3 (3.65-5.03) 07/19/21 04:59 Hgb 10.8 gm/dl (10.1-14.3) 07/19/21 04:59 Hct 32.9 % (30.3-42.9) 07/19/21 04:59 MCV 87 fl (79-97) 07/19/21 04:59 MCH 28 pg (28-32) 07/19/21 04:59 MCHC 33 % (30-34) 07/19/21 04:59 RDW 16.0 % (13.2-15.2) H 07/19/21 04:59 Plt Count 182 K/mm3 (140-440) 07/19/21 04:59 Lymph % (Auto) 10.7 % (13.4-35.0) L 07/19/21 04:59 [place] % (Auto) 4.8 % (0.0-7.3) 07/19/21 04:59 Eos % (Auto) 0.1 % (0.0-4.3) 07/19/21 04:59 Baso % (Auto) 0.1 % (0.0-1.8) 07/19/21 04:59 Lymph # (Auto) 1.1 K/mm3 (1.2-5.4) L 07/19/21 04:59 [place] # (Auto) 0.5 K/mm3 (0.0-0.8) 07/19/21 04:59 Eos # (Auto) 0.0 K/mm3 (0.0-0.4) 07/19/21 04:59 Baso # (Auto) 0.0 K/mm3 (0.0-0.1) 07/19/21 04:59 Seg Neutrophils % 84.3 % (40.0-70.0) H 07/19/21 04:59 Seg Neutrophils # 8.7 K/mm3 (1.8-7.7) H 07/19/21 04:59 PT 15.1 Sec. (12.2-14.9) H 07/18/21 16:00 INR 1.13 (0.87-1.13) 07/18/21 16:00 APTT 31.9 Sec. (24.2-36.6) 07/18/21 16:00 D-Dimer > 05597 ng/mlDDU (0-234) H 07/18/21 16:00 ABG pH 7.391 (7.320-7.450) 07/19/21 04:33 POC ABG pCO2 34.1 mmHg (32.0-48.0) 07/19/21 04:33 POC ABG pO2 53.1 mmHg (83-108) L 07/19/21 04:33 POC ABG HCO3 20.2 07/19/21 04:33 ABG O2 Saturation 85.6 (0-100) 07/19/21 04:33 POC ABG Base Excess -4.0 07/19/21 04:33 ABG Hemoglobin 12.0 (12.0-17.5) 07/19/21 04:33 ABG Oxyhemoglobin 85.3 (94-98) L 07/19/21 04:33 ABG Methemoglobin 0.1 (0.0-1.5) 07/19/21 04:33 ABG Sodium 139.5 mmol/L (136.0-145.0) 07/19/21 04:33 ABG Potassium 4.2 mmol/L (3.40-4.50) 07/19/21 04:33 ABG Chloride 109.0 mmol/L (98-107) H 07/19/21 04:33 ABG Glucose 150 mg/dL (65-95) H 07/19/21 04:33 Carboxyhemoglobin 0.3 (0.5-1.5) L 07/19/21 04:33 FiO2 % 100.0 07/19/21 04:33 Sodium 142 mmol/L (137-145) 07/19/21 04:59 Potassium 4.5 mmol/L (3.6-5.0) D 07/19/21 04:59 Chloride 108.8 mmol/L (98-107) H 07/19/21 04:59 Carbon Dioxide 21 mmol/L (22-30) L 07/19/21 04:59 Anion Gap 17 mmol/L 07/19/21 04:59 BUN 28 mg/dL (7-17) H 07/19/21 04:59 Creatinine 1.8 mg/dL (0.6-1.2) H 07/19/21 04:59 Estimated GFR 35 ml/min 07/19/21 04:59 BUN/Creatinine Ratio 16 % 07/19/21 04:59 Glucose 145 mg/dL (65-100) H 07/19/21 04:59 Lactic Acid 1.40 mmol/L (0.7-2.0) 07/18/21 16:00 Calcium 7.8 mg/dL (8.4-10.2) L 07/19/21 04:59 Ferritin 657.0 ng/mL (10.0-200.0) H 07/18/21 16:00 Total Bilirubin 0.20 mg/dL (0.1-1.2) 07/19/21 04:59 AST 36 units/L (5-40) 07/19/21 04:59 ALT 14 units/L (7-56) 07/19/21 04:59 Alkaline Phosphatase 58 units/L (35-129) 07/19/21 04:59 Ammonia 37.0 umol/L (25-60) 07/18/21 16:00 Lactate Dehydrogenase 705 units/L (91-180) H 07/18/21 16:00 Total Creatine Kinase 157 units/L (30-135) H 07/18/21 16:00 Troponin T 0.106 ng/mL (0.00-0.029) H* 07/18/21 16:00 C-Reactive Protein 33.00 mg/dL (0.00-1.30) H 07/18/21 16:00 Total Protein 6.2 g/dL (6.3-8.2) L 07/19/21 04:59 Albumin 3.2 g/dL (3.9-5) L 07/19/21 04:59 Albumin/Globulin Ratio 1.1 % 07/19/21 04:59 Triglycerides 156 mg/dL (2-149) H 07/18/21 16:00 Cholesterol 127 mg/dL (50-199) 07/18/21 16:00 LDL Cholesterol Direct 64 mg/dL (50-130) 07/18/21 16:00 HDL Cholesterol 33 mg/dL (40-59) L 07/18/21 16:00 Cholesterol/HDL Ratio 3.84 % 07/18/21 16:00 Procalcitonin 1.28 ng/mL (<0.15) 07/18/21 16:00 TSH 0.384 mlU/mL (0.270-4.200) 07/18/21 16:00 Arterial Blood Glucose 150 mg/dL (65-95) H 07/19/21 04:33 Urine Color Yellow (Yellow) 07/18/21 Unknown Urine Turbidity Slightly-cloudy (Clear) 07/18/21 Unknown Urine pH 5.0 (5.0-7.0) 07/18/[address] 1.020 (1.003-1.030) 07/18/21 Unknown Urine Protein >500 mg/dL (Negative) 07/18/21 Unknown Urine Glucose (UA) Neg mg/dL (Negative) 07/18/21 Unknown Urine Ketones 20 mg/dL (Negative) 07/18/21 Unknown Urine Blood Neg (Negative) 07/18/21 Unknown Urine Nitrite Neg (Negative) 07/18/21 Unknown Urine Bilirubin Neg (Negative) 07/18/21 Unknown Urine Urobilinogen < 2.0 mg/dL (<2.0) 07/18/21 Unknown Ur Leukocyte Esterase Neg (Negative) 07/18/21 Unknown Urine WBC (Auto) 9.0 /HPF (0.0-6.0) H 07/18/21 Unknown Urine RBC (Auto) 2.0 /HPF (0.0-6.0) 07/18/21 Unknown U Epithel Cells (Auto) 1.0 /HPF (0-13.0) 07/18/21 Unknown Urine Bacteria (Auto) 1+ /HPF (Negative) 07/18/21 Unknown Amorphous Crystals Few 07/18/21 Unknown Urine Mucus Few /HPF 07/18/21 Unknown Salicylates < 0.3 mg/dL (2.8-20.0) L 07/18/21 16:00 Urine Opiates Screen Negative 07/18/21 Unknown Urine Methadone Screen Negative 07/18/21 Unknown Acetaminophen 5.7 ug/mL (10.0-30.0) L 07/18/21 16:00 Ur Barbiturates Screen Negative 07/18/21 Unknown Ur Phencyclidine Scrn Negative 07/18/21 Unknown Ur Amphetamines Screen Negative 07/18/21 Unknown U Benzodiazepines Scrn Negative 07/18/21 Unknown Urine Cocaine Screen Negative 07/18/21 Unknown U Marijuana (THC) Screen Negative 07/18/21 Unknown Drugs of Abuse Note Disclamer 07/18/21 Unknown Plasma/Serum Alcohol < 0.01 % (0-0.07) 07/18/21 16:00 Blood Type O POSITIVE 07/18/21 16:05 Antibody Screen Negative 07/18/21 16:05 Microbiology: Microbiology 07/18/21 16:00 Peripheral/Venous Blood Culture - Preliminary Culture in Progress 07/18/21 16:00 Peripheral/Venous Blood Culture - Preliminary Culture in Progress Active Medications - Current Medications Current Medications: Generic Name Dose Route Start Last Admin Trade Name Freq PRN Reason Stop Dose Admin Acetaminophen 650 mg 07/18/21 22:49 Acetaminophen 325 Mg Tab PO Q4H PRN Pain MILD(1-3)/Fever >100.5/URENA Lipase/Protease/Amylase 1 each 07/18/21 22:56 Lipase 10,500/Protease 25,000/Amylase 43,750 (Units) Dr Alvarado FEEDTUBE PRN PRN For Clogged Feeding Tube Enoxaparin Sodium 100 mg 07/19/21 10:00 07/19/21 11:00 Enoxaparin 100 Mg/1 Ml Inj SUB-Q 100 mg Q12HR NICOLE Administration Protocol Famotidine 20 mg 07/18/21 22:00 07/19/21 11:36 Famotidine 20 Mg/2 Ml Inj IV 20 mg BID NICOLE Administration Fentanyl 50 mcg 07/18/21 14:41 Fentanyl 100 Mcg/2 Ml Inj IV Q10MIN PRN ANALGESIA Hydrophilic Ointment 1 applic 07/18/21 14:41 Lip Therapy Vaseline TP Q2HR PRN Dry Lips Fentanyl Citrate 2,000 mcg in 100 mls @ 4.915 mls/hr 07/18/21 16:00 07/19/21 09:29 Fentanyl Drip Premix IV 1 mcg/kg/hr TITR NICOLE 4.915 mls/hr Titration Protocol 1 MCG/KG/HR Midazolam HCl 100 mg/ Sodium 100 mls @ 2 mls/hr 07/18/21 19:00 07/19/21 09:28 Chloride IV 5 mg/hr TITR NICOLE 5 mls/hr Titration Protocol 2 MG/HR Sodium Chloride 1,000 mls @ 75 mls/hr 07/18/21 23:00 07/19/21 07:02 Nacl 0.9% 1000 Ml IV 07/19/21 16:00 75 mls/hr DIRECT NICOLE Administration Azithromycin 500 mg in 250 mls @ 250 mls/hr 07/19/21 20:00 Zithromax/Ns IV Q24H NICOLE Ceftriaxone Sodium 2 gm in 100 mls @ 200 mls/hr 07/19/21 20:00 Rocephin/Ns 2 Gm/100 Ml IV Q24H NICOLE Protocol Methylprednisolone Sodium Succinate 60 mg 07/18/21 23:00 07/19/21 05:54 Methylprednisolone Sod Succinate 125 Mg/2 Ml Inj IV 60 mg Q8HR NICOLE Administration Midazolam HCl 2 mg 07/18/21 18:11 Midazolam 2 Mg/2 Ml Inj IV Q10MIN PRN Sedation Multi-Ingred Cream/Lotion/Oil/Oint 1 applic 07/18/21 14:41 Mineral Oil/Petrolatum, White Ophth Oint 3.5 Gm OU Q4HR PRN Dry Eye(s) Ondansetron HCl 4 mg 07/18/21 22:49 Ondansetron 4 Mg/2 Ml Inj IV Q8H PRN Nausea And Vomiting Oxycodone/Acetaminophen 1 tab 07/18/21 22:51 Oxycodone /Acetaminophen 5-325mg Tab PO Q6H PRN Pain, Moderate (4-6) Senna/Docusate Sodium 1 tab 07/18/21 22:00 07/19/21 11:36 Sennosides/Docusate Sodium 8.6/50 Mg Tab FEEDTUBE Not Given BID NICOLE Simple Syrup 15 ml 07/18/21 22:56 Simple Syrup 15 Ml FEEDTUBE PRN PRN Hypoglycemia Simple Syrup 30 ml 07/18/21 22:56 Simple Syrup 15 Ml FEEDTUBE PRN PRN Hypoglycemia Sodium Bicarbonate 325 mg 07/18/21 22:56 Sodium Bicarbonate 325 Mg Tab FEEDTUBE PRN PRN For Clogged Feeding Tube Sodium Chloride 10 ml 07/19/21 10:00 07/19/21 11:36 Sodium Chloride 0.9% 10 Ml Flush Syringe IV 10 ml BID NICOLE Administration Sodium Chloride 10 ml 07/18/21 22:49 Sodium Chloride 0.9% 10 Ml Flush Syringe IV PRN PRN LINE FLUSH Nutrition/Malnutrition Assess - Dietary Evaluation Nutrition/Malnutrition Findings: Nutrition Notes Start: 07/19/21 09 :15 Freq: Status: Active Protocol: Document 07/19/21 09:15 GURPREET (Rec: 07/19/21 09:39 MK [id number]) Nutrition Notes Need for Assessment generated from: MD Order Initial or Follow up Assessment Current Diagnosis Acute Kidney Injury,Diabetes, Hypertension,Respiratory Failure Other Pertinent Diagnosis COVID PUI Current Diet TF Labs/Tests BUN 28 Cr 1.8 BG 145 Pertinent Medications NS at 75 ml/hr Solu Medrol Height 5 ft 6 in Weight 98.3 kg [place] Body Weight (kg) 59.09 BMI 34.9 Weight Status Obese Subjective/Other Information MD order to eval intakes and TF. Pt on vent. Burn Absent Trauma Absent Minimum of two criteria No #1 Nutrition Diagnosis Inadequate oral intake Etiology respiratory failure As Evidenced by Signs and Symptoms pt on vent and unable to consume PO Is patient on ventilator? Yes Is Patient Ambulatory and/or Out of Bed No REE-([facility]-confined to bed) 1923.708 Kcal/Kg value to use for calculation 14 Approximate Energy Requirements Using 1376 kcal/Kg Calculation Used for Recommendations Kcal/kg Additional Notes Protein: (>2g/kg IBW) >118g Fluid: 1 ml/kcal or per MD Nutrition Intervention Change Diet Order: Start TF Nutrition Support: Vital HP at 55 ml/hr Flush 50 ml q4h Kcal 1,320 Protein (gm) 116 Fluid (mL) 1,104 Goal #1 Meet at least 75% of protein and kcal needs via TF Anticipated Discharge Needs: Unable to determine at this time Follow-Up By: 07/21/21 Additional Comments F/u: TF start and tolerance
--- NOTE | 2021-07-19 14:58 | Consultation ---
History of Present Illness - Reason for Consult Consult date: 07/19/21 - History of Present Illness 55-year-old female past medical history hypertension brought to the hospital hypoxic. She was intubated in the emergency room, as such history is obtained per chart. Unknown Covid isolation status. Febrile to 101.8 with a white count 10.3. Covid pending. Decreased renal function, EGFR 35. Procalcitonin elevated in the setting of ION. Elevated inflammatory markers. Blood and sputum cultures pending. Imaging personally reviewed: Chest CTA: Multiple segmental bilateral pulmonary emboli, extensive bilateral pneumonia Past History Past Medical History: diabetes, hypertension, other (obesity) Past Surgical History: Other (unable to obtain) Social history: other (unable to obtain) Family history: other (unable to obtain) Medications and Allergies Allergies Allergy/AdvReac Type Severity Reaction Status Date / Time No Known Allergies Allergy Unverified 02/25/21 01:21 Home Medications Medication Instructions Recorded Confirmed Last Taken Type Butalb/Acetamin/Caff 50-325-40 1 each PO Q4H PRN #7 tablet 03/25/14 Unknown Rx [Fioricet] amLODIPine [Norvasc] 5 mg PO DAILY #30 tab 03/25/14 Unknown Rx Estrogens, Conjugated [Premarin] 1 applicator VG QHS #1 tube 02/25/21 Unknown Rx hydrOXYzine PAMOATE [Vistaril] 50 mg PO Q12H PRN #30 capsule 02/25/21 Unknown Rx Active Meds: Active Medications Acetaminophen (Acetaminophen 325 Mg Tab) 650 mg PO Q4H PRN PRN Reason: Pain MILD(1-3)/Fever >100.5/URENA Lipase/Protease/Amylase (Lipase 10,500/Protease 25,000/Amylase 43,750 (Units) Dr Alvarado) 1 each FEEDTUBE PRN PRN PRN Reason: For Clogged Feeding Tube Enoxaparin Sodium (Enoxaparin 100 Mg/1 Ml Inj) 100 mg SUB-Q Q12HR NICOLE; Protocol Last Admin: 07/19/21 11:00 Dose: 100 mg Documented by: Famotidine (Famotidine 20 Mg/2 Ml Inj) 20 mg IV BID NICOLE Last Admin: 07/19/21 11:36 Dose: 20 mg Documented by: Fentanyl (Fentanyl 100 Mcg/2 Ml Inj) 50 mcg IV Q10MIN PRN PRN Reason: ANALGESIA Hydrophilic Ointment (Lip Therapy Vaseline) 1 applic TP Q2HR PRN PRN Reason: Dry Lips Fentanyl Citrate (Fentanyl Drip Premix) 2,000 mcg in 100 mls @ 4.915 mls/hr IV TITR NICOLE; Protocol Last Titration: 07/19/21 09:29 Dose: 1 mcg/kg/hr, 4.915 mls/hr Documented by: Midazolam HCl 100 mg/ Sodium (Chloride) 100 mls @ 2 mls/hr IV TITR NICOLE; Protocol Last Titration: 07/19/21 09:28 Dose: 5 mg/hr, 5 mls/hr Documented by: Sodium Chloride (Nacl 0.9% 1000 Ml) 1,000 mls @ 75 mls/hr IV DIRECT NICOLE Stop: 07/19/21 16:00 Last Admin: 07/19/21 07:02 Dose: 75 mls/hr Documented by: Azithromycin (Zithromax/Ns) 500 mg in 250 mls @ 250 mls/hr IV Q24H NICOLE Ceftriaxone Sodium (Rocephin/Ns 2 Gm/100 Ml) 2 gm in 100 mls @ 200 mls/hr IV Q24H NICOLE; Protocol Methylprednisolone Sodium Succinate (Methylprednisolone Sod Succinate 125 Mg/2 Ml Inj) 60 mg IV Q8HR NICOLE Last Admin: 07/19/21 05:54 Dose: 60 mg Documented by: Midazolam HCl (Midazolam 2 Mg/2 Ml Inj) 2 mg IV Q10MIN PRN PRN Reason: Sedation Multi-Ingred Cream/Lotion/Oil/Oint (Mineral Oil/Petrolatum, White Ophth Oint 3.5 Gm) 1 applic OU Q4HR PRN PRN Reason: Dry Eye(s) Ondansetron HCl (Ondansetron 4 Mg/2 Ml Inj) 4 mg IV Q8H PRN PRN Reason: Nausea And Vomiting Oxycodone/Acetaminophen (Oxycodone /Acetaminophen 5-325mg Tab) 1 tab PO Q6H PRN PRN Reason: Pain, Moderate (4-6) Senna/Docusate Sodium (Sennosides/Docusate Sodium 8.6/50 Mg Tab) 1 tab FEEDTUBE BID NICOLE Last Admin: 07/19/21 11:36 Dose: Not Given Documented by: Simple Syrup (Simple Syrup 15 Ml) 15 ml FEEDTUBE PRN PRN PRN Reason: Hypoglycemia Simple Syrup (Simple Syrup 15 Ml) 30 ml FEEDTUBE PRN PRN PRN Reason: Hypoglycemia Sodium Bicarbonate (Sodium Bicarbonate 325 Mg Tab) 325 mg FEEDTUBE PRN PRN PRN Reason: For Clogged Feeding Tube Sodium Chloride (Sodium Chloride 0.9% 10 Ml Flush Syringe) 10 ml IV BID NICOLE Last Admin: 07/19/21 11:36 Dose: 10 ml Documented by: Sodium Chloride (Sodium Chloride 0.9% 10 Ml Flush Syringe) 10 ml IV PRN PRN PRN Reason: LINE FLUSH Review of Systems ROS unobtainable: due to endotracheal tube Physical Examination - Physical Exam Narrative exam: Physical exam deferred to reduce risk of transmission of COVID-19. Please refer to primary team's note. - Constitutional Vitals: Vital Signs Temp Pulse Resp BP Pulse Ox 97.7 F 56 L 29 H 104/70 99 07/18/21 19:50 07/19/21 13:47 07/19/21 13:47 07/19/21 13:47 07/19/21 13:47 Temperature -Last 24 Hours Temperature 97.7 F Temperature 98.4 F Temperature 101.8 F Results - Labs CBC & Chem 7: 07/19/21 04:59 07/19/21 04:59 Labs: Abnormal lab results 07/18/21 07/18/21 07/18/21 Range/Units 16:00 16:00 16:00 RDW 15.3 H (13.2-15.2) % Lymph % (Auto) 7.9 L (13.4-35.0) % Lymph # (Auto) 0.8 L (1.2-5.4) K/mm3 Seg Neutrophils % 86.3 H (40.0-70.0) % Seg Neutrophils # 9.0 H (1.8-7.7) K/mm3 PT 15.1 H (12.2-14.9) Sec. D-Dimer > 10069 H (0-234) ng/mlDDU ABG pH (7.320-7.450) POC ABG pO2 (83-108) mmHg ABG Oxyhemoglobin (94-98) ABG Chloride (98-107) mmol/L ABG Glucose (65-95) mg/dL Carboxyhemoglobin (0.5-1.5) Potassium 3.5 L (3.6-5.0) mmol/L Chloride (98-107) mmol/L Carbon Dioxide 20 L (22-30) mmol/L BUN 19 H (7-17) mg/dL Creatinine (0.6-1.2) mg/dL Glucose 140 H (65-100) mg/dL Calcium (8.4-10.2) mg/dL Ferritin (10.0-200.0) ng/mL AST 43 H (5-40) units/L Lactate Dehydrogenase 705 H (91-180) units/L Total Creatine Kinase 157 H (30-135) units/L Troponin T 0.106 H* (0.00-0.029) ng/mL C-Reactive Protein 33.00 H (0.00-1.30) mg/dL Total Protein (6.3-8.2) g/dL Albumin 3.2 L (3.9-5) g/dL Triglycerides 156 H (2-149) mg/dL HDL Cholesterol 33 L (40-59) mg/dL Arterial Blood Glucose (65-95) mg/dL Urine WBC (Auto) (0.0-6.0) /HPF Salicylates (2.8-20.0) mg/dL Acetaminophen (10.0-30.0) ug/mL 07/18/21 07/18/21 07/18/21 Range/Units 16:00 16:00 16:00 RDW (13.2-15.2) % Lymph % (Auto) (13.4-35.0) % Lymph # (Auto) (1.2-5.4) K/mm3 Seg Neutrophils % (40.0-70.0) % Seg Neutrophils # (1.8-7.7) K/mm3 PT (12.2-14.9) Sec. D-Dimer (0-234) ng/mlDDU ABG pH (7.320-7.450) POC ABG pO2 (83-108) mmHg ABG Oxyhemoglobin (94-98) ABG Chloride (98-107) mmol/L ABG Glucose (65-95) mg/dL Carboxyhemoglobin (0.5-1.5) Potassium (3.6-5.0) mmol/L Chloride (98-107) mmol/L Carbon Dioxide (22-30) mmol/L BUN (7-17) mg/dL Creatinine (0.6-1.2) mg/dL Glucose (65-100) mg/dL Calcium (8.4-10.2) mg/dL Ferritin 657.0 H (10.0-200.0) ng/mL AST (5-40) units/L Lactate Dehydrogenase (91-180) units/L Total Creatine Kinase (30-135) units/L Troponin T (0.00-0.029) ng/mL C-Reactive Protein (0.00-1.30) mg/dL Total Protein (6.3-8.2) g/dL Albumin (3.9-5) g/dL Triglycerides (2-149) mg/dL HDL Cholesterol (40-59) mg/dL Arterial Blood Glucose (65-95) mg/dL Urine WBC (Auto) (0.0-6.0) /HPF Salicylates < 0.3 L (2.8-20.0) mg/dL Acetaminophen 5.7 L (10.0-30.0) ug/mL 07/18/21 07/18/21 07/19/21 Range/Units Unknown Unknown 04:33 RDW (13.2-15.2) % Lymph % (Auto) (13.4-35.0) % Lymph # (Auto) (1.2-5.4) K/mm3 Seg Neutrophils % (40.0-70.0) % Seg Neutrophils # (1.8-7.7) K/mm3 PT (12.2-14.9) Sec. D-Dimer (0-234) ng/mlDDU ABG pH 7.275 L (7.320-7.450) POC ABG pO2 68.7 L 53.1 L (83-108) mmHg ABG Oxyhemoglobin 88.3 L 85.3 L (94-98) ABG Chloride 109.0 H (98-107) mmol/L ABG Glucose 170 H 150 H (65-95) mg/dL Carboxyhemoglobin 0 L 0.3 L (0.5-1.5) Potassium (3.6-5.0) mmol/L Chloride (98-107) mmol/L Carbon Dioxide (22-30) mmol/L BUN (7-17) mg/dL Creatinine (0.6-1.2) mg/dL Glucose (65-100) mg/dL Calcium (8.4-10.2) mg/dL Ferritin (10.0-200.0) ng/mL AST (5-40) units/L Lactate Dehydrogenase (91-180) units/L Total Creatine Kinase (30-135) units/L Troponin T (0.00-0.029) ng/mL C-Reactive Protein (0.00-1.30) mg/dL Total Protein (6.3-8.2) g/dL Albumin (3.9-5) g/dL Triglycerides (2-149) mg/dL HDL Cholesterol (40-59) mg/dL Arterial Blood Glucose 170 H 150 H (65-95) mg/dL Urine WBC (Auto) 9.0 H (0.0-6.0) /HPF Salicylates (2.8-20.0) mg/dL Acetaminophen (10.0-30.0) ug/mL 07/19/21 07/19/21 Range/Units 04:59 04:59 RDW 16.0 H (13.2-15.2) % Lymph % (Auto) 10.7 L (13.4-35.0) % Lymph # (Auto) 1.1 L (1.2-5.4) K/mm3 Seg Neutrophils % 84.3 H (40.0-70.0) % Seg Neutrophils # 8.7 H (1.8-7.7) K/mm3 PT (12.2-14.9) Sec. D-Dimer (0-234) ng/mlDDU ABG pH (7.320-7.450) POC ABG pO2 (83-108) mmHg ABG Oxyhemoglobin (94-98) ABG Chloride (98-107) mmol/L ABG Glucose (65-95) mg/dL Carboxyhemoglobin (0.5-1.5) Potassium (3.6-5.0) mmol/L Chloride 108.8 H (98-107) mmol/L Carbon Dioxide 21 L (22-30) mmol/L BUN 28 H (7-17) mg/dL Creatinine 1.8 H (0.6-1.2) mg/dL Glucose 145 H (65-100) mg/dL Calcium 7.8 L (8.4-10.2) mg/dL Ferritin (10.0-200.0) ng/mL AST (5-40) units/L Lactate Dehydrogenase (91-180) units/L Total Creatine Kinase (30-135) units/L Troponin T (0.00-0.029) ng/mL C-Reactive Protein (0.00-1.30) mg/dL Total Protein 6.2 L (6.3-8.2) g/dL Albumin 3.2 L (3.9-5) g/dL Triglycerides (2-149) mg/dL HDL Cholesterol (40-59) mg/dL Arterial Blood Glucose (65-95) mg/dL Urine WBC (Auto) (0.0-6.0) /HPF Salicylates (2.8-20.0) mg/dL Acetaminophen (10.0-30.0) ug/mL Assessment and Plan Cultures: Blood culture 07/18/2021 no growth so far Urine culture 07/18/2021 no growth so far A/P: 55 yo F PMHx HTN, DM2 presents with severe COVID pneumonia. #Presumed COVID pneumonia: pending PCR, clinical presentation consistent with diagnosis. Elevated procalcitonin as well, however in the setting of ION #Acute hypoxic respiratory failure: currently on the vent #Bilateral pulmonary emboli: anticoagulation per hoptal protocol #ION Recs: -Continue empiric ceftriaxone and azithromycin to complete 5 days -Would start Remdesivir now, can stop if PCR negative for COVID -Recommend Actemra if PCR positive -Anticoagulation per hospital protocol -Proning as able -Obtain q48-72h inflammatory markers - ferritin, Ddimer, CRP, LDH Thank you for the consult, we will continue to follow. Jessica Hassan MD [facility] ([facility] O: [phone] F: [phone]
--- NOTE | 2021-07-19 16:53 | Progress Note ---
<CYNTHIA RIZZO Ginna - Last Filed: 07/19/21 17:30> Assessment and Plan Assessment and plan: 55-year-old -[place] female with history of hypertension and diabetes brought in by EMS with very low oxygen saturations and on CPAP. In spite of being on CPAP patient was saturating in the high 20s 60s and low 70s. Patient is awake and moving all 4 extremities. Patient also fighting to take out the CPAP. Because of the persistently low oxygen levels patient was intubated in the emergency room to improve the oxygenation levels. Patient was intubated emergently by Dr. Dumont in the emergency room. Status of vaccination with Covid not known. Much history is not available. Remains intubated and ventilated in ER; while waiting on ICU bed NEURO; ANXIETY; AMS/ METABOLIC ENCEPHALOPATHY/ REQUIRING SEDATION NOK daughter updated by Dr Knight her no is [phone] sedated on fentanyl/versed SAT as tolerated CV: nap SR MAP goal > 65 PRN vaso/NE RESP: ACUTE RESP FAILURE WITH PE/COVID19 PNA mechanically ventilated see RT notes ABG ordered this afternoon- as of 1710 not done- reordered stat- call to Dr Rome trend ABG and chest xray CTA pos PE GI; PROTEIN JOELLEN MALNUTRITION nutrition consult PPI bowel reg TF ordered by Dr Pacheco- reordered today should be fed to dobhoff nutrition orders placed for goal rate PPI bowel reg : volume overload strict I/O follow and replace electrolytes as needed trend Cr AM labs ordered HEME: coagulopathic with covid19 no bleeding on exam trend CBC on enoxaparin ID: [id number] pna with PE ID following trend WBC and temp curve follow culture data continue remdes./ methylpred and empiric antibiotics PRN tylenol for fever ENDO- stress hyperglycemia; DM2; obesity SSI PRN avoid hypoglycemia The high probability of a clinically significant, sudden or life threatening deterioration of the [] system(s) required my full and direct attention, int ervention and personal management. The aggregate critical care time was [30] minutes. This time is in addition to time spent performing reported procedures but includes the following: [x] Data Review and interpretation [x] Patient assessment and monitoring of vital signs [x] Documentation [x] Medication orders and management 07/18 admit to hospital via ER; being held in ER for ICU bed 07/19 remains in ER intubated and mechanically ventilated; covid pos Disposition Plan: In ER waiting on ICU bed Total Time Spent with Patient (Minutes): 30 History Interval history: no acute events overnight Hospitalist Physical - Constitutional Vitals: Temp Pulse Resp BP Pulse Ox 97.7 F 53 L 28 H 108/70 99 07/18/21 19:50 07/19/21 16:08 07/19/21 16:08 07/19/21 16:08 07/19/21 16:08 General appearance: Present: well-nourished - EENT Eyes: Present: EOM intact ENT: hearing intact - Neck Neck: Present: supple - Respiratory Respiratory effort: normal - Cardiovascular Rhythm: regular Heart Sounds: Present: S1 & S2 - Abdominal General gastrointestinal: soft - Integumentary Integumentary: Present: clear, warm - Allied Health Allied health notes reviewed: nursing, RT, social work, case management HEART Score - HEART Score Troponin: Troponin T 0.106 ng/mL (0.00-0.029) H* 07/18/21 16:00 Results - Labs CBC & Chem 7: 07/19/21 04:59 07/19/21 04:59 Labs: Laboratory Last Values WBC 10.3 K/mm3 (4.5-11.0) 07/19/21 04:59 RBC 3.80 M/mm3 (3.65-5.03) 07/19/21 04:59 Hgb 10.8 gm/dl (10.1-14.3) 07/19/21 04:59 Hct 32.9 % (30.3-42.9) 07/19/21 04:59 MCV 87 fl (79-97) 07/19/21 04:59 MCH 28 pg (28-32) 07/19/21 04:59 MCHC 33 % (30-34) 07/19/21 04:59 RDW 16.0 % (13.2-15.2) H 07/19/21 04:59 Plt Count 182 K/mm3 (140-440) 07/19/21 04:59 Lymph % (Auto) 10.7 % (13.4-35.0) L 07/19/21 04:59 Stephens % (Auto) 4.8 % (0.0-7.3) 07/19/21 04:59 Eos % (Auto) 0.1 % (0.0-4.3) 07/19/21 04:59 Baso % (Auto) 0.1 % (0.0-1.8) 07/19/21 04:59 Lymph # (Auto) 1.1 K/mm3 (1.2-5.4) L 07/19/21 04:59 Stephens # (Auto) 0.5 K/mm3 (0.0-0.8) 07/19/21 04:59 Eos # (Auto) 0.0 K/mm3 (0.0-0.4) 07/19/21 04:59 Baso # (Auto) 0.0 K/mm3 (0.0-0.1) 07/19/21 04:59 Seg Neutrophils % 84.3 % (40.0-70.0) H 07/19/21 04:59 Seg Neutrophils # 8.7 K/mm3 (1.8-7.7) H 07/19/21 04:59 PT 15.1 Sec. (12.2-14.9) H 07/18/21 16:00 INR 1.13 (0.87-1.13) 07/18/21 16:00 APTT 31.9 Sec. (24.2-36.6) 07/18/21 16:00 D-Dimer > 23695 ng/mlDDU (0-234) H 07/18/21 16:00 ABG pH 7.391 (7.320-7.450) 07/19/21 04:33 POC ABG pCO2 34.1 mmHg (32.0-48.0) 07/19/21 04:33 POC ABG pO2 53.1 mmHg (83-108) L 07/19/21 04:33 POC ABG HCO3 20.2 07/19/21 04:33 ABG O2 Saturation 85.6 (0-100) 07/19/21 04:33 POC ABG Base Excess -4.0 07/19/21 04:33 ABG Hemoglobin 12.0 (12.0-17.5) 07/19/21 04:33 ABG Oxyhemoglobin 85.3 (94-98) L 07/19/21 04:33 ABG Methemoglobin 0.1 (0.0-1.5) 07/19/21 04:33 ABG Sodium 139.5 mmol/L (136.0-145.0) 07/19/21 04:33 ABG Potassium 4.2 mmol/L (3.40-4.50) 07/19/21 04:33 ABG Chloride 109.0 mmol/L (98-107) H 07/19/21 04:33 ABG Glucose 150 mg/dL (65-95) H 07/19/21 04:33 Carboxyhemoglobin 0.3 (0.5-1.5) L 07/19/21 04:33 FiO2 % 100.0 07/19/21 04:33 Sodium 142 mmol/L (137-145) 07/19/21 04:59 Potassium 4.5 mmol/L (3.6-5.0) D 07/19/21 04:59 Chloride 108.8 mmol/L (98-107) H 07/19/21 04:59 Carbon Dioxide 21 mmol/L (22-30) L 07/19/21 04:59 Anion Gap 17 mmol/L 07/19/21 04:59 BUN 28 mg/dL (7-17) H 07/19/21 04:59 Creatinine 1.8 mg/dL (0.6-1.2) H 07/19/21 04:59 Estimated GFR 35 ml/min 07/19/21 04:59 BUN/Creatinine Ratio 16 % 07/19/21 04:59 Glucose 145 mg/dL (65-100) H 07/19/21 04:59 Lactic Acid 1.40 mmol/L (0.7-2.0) 07/18/21 16:00 Calcium 7.8 mg/dL (8.4-10.2) L 07/19/21 04:59 Ferritin 657.0 ng/mL (10.0-200.0) H 07/18/21 16:00 Total Bilirubin 0.20 mg/dL (0.1-1.2) 07/19/21 04:59 AST 36 units/L (5-40) 07/19/21 04:59 ALT 14 units/L (7-56) 07/19/21 04:59 Alkaline Phosphatase 58 units/L (35-129) 07/19/21 04:59 Ammonia 37.0 umol/L (25-60) 07/18/21 16:00 Lactate Dehydrogenase 705 units/L (91-180) H 07/18/21 16:00 Total Creatine Kinase 157 units/L (30-135) H 07/18/21 16:00 Troponin T 0.106 ng/mL (0.00-0.029) H* 07/18/21 16:00 C-Reactive Protein 33.00 mg/dL (0.00-1.30) H 07/18/21 16:00 Total Protein 6.2 g/dL (6.3-8.2) L 07/19/21 04:59 Albumin 3.2 g/dL (3.9-5) L 07/19/21 04:59 Albumin/Globulin Ratio 1.1 % 07/19/21 04:59 Triglycerides 156 mg/dL (2-149) H 07/18/21 16:00 Cholesterol 127 mg/dL (50-199) 07/18/21 16:00 LDL Cholesterol Direct 64 mg/dL (50-130) 07/18/21 16:00 HDL Cholesterol 33 mg/dL (40-59) L 07/18/21 16:00 Cholesterol/HDL Ratio 3.84 % 07/18/21 16:00 Procalcitonin 1.28 ng/mL (<0.15) 07/18/21 16:00 TSH 0.384 mlU/mL (0.270-4.200) 07/18/21 16:00 Arterial Blood Glucose 150 mg/dL (65-95) H 07/19/21 04:33 Urine Color Yellow (Yellow) 07/18/21 Unknown Urine Turbidity Slightly-cloudy (Clear) 07/18/21 Unknown Urine pH 5.0 (5.0-7.0) 07/18/21 Unknown Ur Specific Nucla 1.020 (1.003-1.030) 07/18/21 Unknown Urine Protein >500 mg/dL (Negative) 07/18/21 Unknown Urine Glucose (UA) Neg mg/dL (Negative) 07/18/21 Unknown Urine Ketones 20 mg/dL (Negative) 07/18/21 Unknown Urine Blood Neg (Negative) 07/18/21 Unknown Urine Nitrite Neg (Negative) 07/18/21 Unknown Urine Bilirubin Neg (Negative) 07/18/21 Unknown Urine Urobilinogen < 2.0 mg/dL (<2.0) 07/18/21 Unknown Ur Leukocyte Esterase Neg (Negative) 07/18/21 Unknown Urine WBC (Auto) 9.0 /HPF (0.0-6.0) H 07/18/21 Unknown Urine RBC (Auto) 2.0 /HPF (0.0-6.0) 07/18/21 Unknown U Epithel Cells (Auto) 1.0 /HPF (0-13.0) 07/18/21 Unknown Urine Bacteria (Auto) 1+ /HPF (Negative) 07/18/21 Unknown Amorphous Crystals Few 07/18/21 Unknown Urine Mucus Few /HPF 07/18/21 Unknown Salicylates < 0.3 mg/dL (2.8-20.0) L 07/18/21 16:00 Urine Opiates Screen Negative 07/18/21 Unknown Urine Methadone Screen Negative 07/18/21 Unknown Acetaminophen 5.7 ug/mL (10.0-30.0) L 07/18/21 16:00 Ur Barbiturates Screen Negative 07/18/21 Unknown Ur Phencyclidine Scrn Negative 07/18/21 Unknown Ur Amphetamines Screen Negative 07/18/21 Unknown U Benzodiazepines Scrn Negative 07/18/21 Unknown Urine Cocaine Screen Negative 07/18/21 Unknown U Marijuana (THC) Screen Negative 07/18/21 Unknown Drugs of Abuse Note Disclamer 07/18/21 Unknown Plasma/Serum Alcohol < 0.01 % (0-0.07) 07/18/21 16:00 Coronavirus (PCR) Positive (Negative) A 07/19/21 Unknown Blood Type O POSITIVE 07/18/21 16:05 Antibody Screen Negative 07/18/21 16:05 Microbiology: Microbiology 07/18/21 Unknown Sputum - Endotracheal Wash Sputum Culture - Preliminary 07/18/21 16:00 Peripheral/Venous Blood Culture - Preliminary Culture in Progress 07/18/21 16:00 Peripheral/Venous Blood Culture - Preliminary Culture in Progress Active Medications - Current Medications Current Medications: Generic Name Dose Route Start Last Admin Trade Name Freq PRN Reason Stop Dose Admin Acetaminophen 650 mg 07/18/21 22:49 Acetaminophen 325 Mg Tab PO Q4H PRN Pain MILD(1-3)/Fever >100.5/URENA Lipase/Protease/Amylase 1 each 07/18/21 22:56 Lipase 10,500/Protease 25,000/Amylase 43,750 (Units) Dr Cap FEEDTUBE PRN PRN For Clogged Feeding Tube Enoxaparin Sodium 100 mg 07/19/21 10:00 07/19/21 11:00 Enoxaparin 100 Mg/1 Ml Inj SUB-Q 100 mg Q12HR NICOLE Administration Protocol Famotidine 20 mg 07/18/21 22:00 07/19/21 11:36 Famotidine 20 Mg/2 Ml Inj IV 20 mg BID NICOLE Administration Fentanyl 50 mcg 07/18/21 14:41 Fentanyl 100 Mcg/2 Ml Inj IV Q10MIN PRN ANALGESIA Hydrophilic Ointment 1 applic 07/18/21 14:41 Lip Therapy Vaseline TP Q2HR PRN Dry Lips Fentanyl Citrate 2,000 mcg in 100 mls @ 4.915 mls/hr 07/18/21 16:00 07/19/21 09:29 Fentanyl Drip Premix IV 1 mcg/kg/hr TITR NICOLE 4.915 mls/hr Titration Protocol 1 MCG/KG/HR Midazolam HCl 100 mg/ Sodium 100 mls @ 2 mls/hr 07/18/21 19:00 07/19/21 09:28 Chloride IV 5 mg/hr TITR NICOLE 5 mls/hr Titration Protocol 2 MG/HR Azithromycin 500 mg in 250 mls @ 250 mls/hr 07/19/21 20:00 Zithromax/Ns IV Q24H [facility] Ceftriaxone Sodium 2 gm in 100 mls @ 200 mls/hr 07/19/21 20:00 Rocephin/Ns 2 Gm/100 Ml IV Q24H [facility] Protocol REMDESIVIR 200 mg/ Sodium 250 mls @ 500 mls/hr 07/19/21 17:00 Chloride IV 07/19/21 17:29 ONCE ONE REMDESIVIR 100 mg/ Sodium 250 mls @ 500 mls/hr 07/20/21 21:00 Chloride IV 07/23/21 21:29 Q24HR@2100 [facility] Methylprednisolone Sodium Succinate 60 mg 07/18/21 23:00 07/19/21 15:07 Methylprednisolone Sod Succinate 125 Mg/2 Ml Inj IV 60 mg Q8HR NICOLE Administration Midazolam HCl 2 mg 07/18/21 18:11 Midazolam 2 Mg/2 Ml Inj IV Q10MIN PRN Sedation Multi-Ingred Cream/Lotion/Oil/Oint 1 applic 07/18/21 14:41 Mineral Oil/Petrolatum, White Ophth Oint 3.5 Gm OU Q4HR PRN Dry Eye(s) Ondansetron HCl 4 mg 07/18/21 22:49 Ondansetron 4 Mg/2 Ml Inj IV Q8H PRN Nausea And Vomiting Oxycodone/Acetaminophen 1 tab 07/18/21 22:51 Oxycodone /Acetaminophen 5-325mg Tab PO Q6H PRN Pain, Moderate (4-6) Senna/Docusate Sodium 1 tab 07/18/21 22:00 07/19/21 11:36 Sennosides/Docusate Sodium 8.6/50 Mg Tab FEEDTUBE Not Given BID NICOLE Simple Syrup 15 ml 07/18/21 22:56 Simple Syrup 15 Ml FEEDTUBE PRN PRN Hypoglycemia Simple Syrup 30 ml 07/18/21 22:56 Simple Syrup 15 Ml FEEDTUBE PRN PRN Hypoglycemia Sodium Bicarbonate 325 mg 07/18/21 22:56 Sodium Bicarbonate 325 Mg Tab FEEDTUBE PRN PRN For Clogged Feeding Tube Sodium Chloride 10 ml 07/19/21 10:00 07/19/21 11:36 Sodium Chloride 0.9% 10 Ml Flush Syringe IV 10 ml BID NICOLE Administration Sodium Chloride 10 ml 07/18/21 22:49 Sodium Chloride 0.9% 10 Ml Flush Syringe IV PRN PRN LINE FLUSH Sodium Chloride 50 ml 07/19/21 17:00 Sodium Chloride 0.9% 50 Ml Ivpb IV 07/22/21 21:01 Q24HR@2100 [facility] Nutrition/Malnutrition Assess - Dietary Evaluation Nutrition/Malnutrition Findings: Nutrition Notes Start: 07/19/21 09:1 5 Freq: Status: Active Protocol: Document 07/19/21 09:15 (Rec: 07/19/21 09:39 [id number]) Nutrition Notes Need for Assessment generated from: MD Order Initial or Follow up Assessment Current Diagnosis Acute Kidney Injury,Diabetes, Hypertension,Respiratory Failure Other Pertinent Diagnosis COVID PUI Current Diet TF Labs/Tests BUN 28 Cr 1.8 BG 145 Pertinent Medications NS at 75 ml/hr Solu Medrol Height 5 ft 6 in Weight 98.3 kg [place] Body Weight (kg) 59.09 BMI 34.9 Weight Status Obese Subjective/Other Information MD order to eval intakes and TF. Pt on vent. Burn Absent Trauma Absent Minimum of two criteria No #1 Nutrition Diagnosis Inadequate oral intake Etiology respiratory failure As Evidenced by Signs and Symptoms pt on vent and unable to consume PO Is patient on ventilator? Yes Is Patient Ambulatory and/or Out of Bed No REE-([facility]et[facility]-confined to bed) 1923.708 Kcal/Kg value to use for calculation 14 Approximate Energy Requirements Using 1376 kcal/Kg Calculation Used for Recommendations Kcal/kg Additional Notes Protein: (>2g/kg IBW) >118g Fluid: 1 ml/kcal or per MD Nutrition Intervention Change Diet Order: Start TF Nutrition Support: Vital HP at 55 ml/hr Flush 50 ml q4h Kcal 1,320 Protein (gm) 116 Fluid (mL) 1,104 Goal #1 Meet at least 75% of protein and kcal needs via TF Anticipated Discharge Needs: Unable to determine at this time Follow-Up By: 07/21/21 Additional Comments F/u: TF start and tolerance - Attestation Statement I have reviewed and agreed w/ Malnutrition eval & tx plan: Yes <EDMUNDO KNIGHT - Last Filed: 07/19/21 17:43> History Interval history: I saw and evaluated the patient. Discussed with the nurse practitioner and agree with their findings and plan as documented in this note. Hospitalist Physical - Constitutional Vitals: Temp Pulse Resp BP Pulse Ox 97.7 F 70 28 H 108/70 98 07/18/21 19:50 07/19/21 16:14 07/19/21 16:08 07/19/21 16:08 07/19/21 16:14 HEART Score - HEART Score Troponin: Troponin T 0.106 ng/mL (0.00-0.029) H* 07/18/21 16:00 Results - Labs CBC & Chem 7: 07/19/21 04:59 07/19/21 04:59 Labs: Laboratory Last Values WBC 10.3 K/mm3 (4.5-11.0) 07/19/21 04:59 RBC 3.80 M/mm3 (3.65-5.03) 07/19/21 04:59 Hgb 10.8 gm/dl (10.1-14.3) 07/19/21 04:59 Hct 32.9 % (30.3-42.9) 07/19/21 04:59 MCV 87 fl (79-97) 07/19/21 04:59 MCH 28 pg (28-32) 07/19/21 04:59 MCHC 33 % (30-34) 07/19/21 04:59 RDW 16.0 % (13.2-15.2) H 07/19/21 04:59 Plt Count 182 K/mm3 (140-440) 07/19/21 04:59 Lymph % (Auto) 10.7 % (13.4-35.0) L 07/19/21 04:59 Stephens % (Auto) 4.8 % (0.0-7.3) 07/19/21 04:59 Eos % (Auto) 0.1 % (0.0-4.3) 07/19/21 04:59 Baso % (Auto) 0.1 % (0.0-1.8) 07/19/21 04:59 Lymph # (Auto) 1.1 K/mm3 (1.2-5.4) L 07/19/21 04:59 Stephens # (Auto) 0.5 K/mm3 (0.0-0.8) 07/19/21 04:59 Eos # (Auto) 0.0 K/mm3 (0.0-0.4) 07/19/21 04:59 Baso # (Auto) 0.0 K/mm3 (0.0-0.1) 07/19/21 04:59 Seg Neutrophils % 84.3 % (40.0-70.0) H 07/19/21 04:59 Seg Neutrophils # 8.7 K/mm3 (1.8-7.7) H 07/19/21 04:59 PT 15.1 Sec. (12.2-14.9) H 07/18/21 16:00 INR 1.13 (0.87-1.13) 07/18/21 16:00 APTT 31.9 Sec. (24.2-36.6) 07/18/21 16:00 D-Dimer > 72333 ng/mlDDU (0-234) H 07/18/21 16:00 ABG pH 7.391 (7.320-7.450) 07/19/21 04:33 POC ABG pCO2 34.1 mmHg (32.0-48.0) 07/19/21 04:33 POC ABG pO2 53.1 mmHg (83-108) L 07/19/21 04:33 POC ABG HCO3 20.2 07/19/21 04:33 ABG O2 Saturation 85.6 (0-100) 07/19/21 04:33 POC ABG Base Excess -4.0 07/19/21 04:33 ABG Hemoglobin 12.0 (12.0-17.5) 07/19/21 04:33 ABG Oxyhemoglobin 85.3 (94-98) L 07/19/21 04:33 ABG Methemoglobin 0.1 (0.0-1.5) 07/19/21 04:33 ABG Sodium 139.5 mmol/L (136.0-145.0) 07/19/21 04:33 ABG Potassium 4.2 mmol/L (3.40-4.50) 07/19/21 04:33 ABG Chloride 109.0 mmol/L (98-107) H 07/19/21 04:33 ABG Glucose 150 mg/dL (65-95) H 07/19/21 04:33 Carboxyhemoglobin 0.3 (0.5-1.5) L 07/19/21 04:33 FiO2 % 100.0 07/19/21 04:33 Sodium 142 mmol/L (137-145) 07/19/21 04:59 Potassium 4.5 mmol/L (3.6-5.0) D 07/19/21 04:59 Chloride 108.8 mmol/L (98-107) H 07/19/21 04:59 Carbon Dioxide 21 mmol/L (22-30) L 07/19/21 04:59 Anion Gap 17 mmol/L 07/19/21 04:59 BUN 28 mg/dL (7-17) H 07/19/21 04:59 Creatinine 1.8 mg/dL (0.6-1.2) H 07/19/21 04:59 Estimated GFR 35 ml/min 07/19/21 04:59 BUN/Creatinine Ratio 16 % 07/19/21 04:59 Glucose 145 mg/dL (65-100) H 07/19/21 04:59 Lactic Acid 1.40 mmol/L (0.7-2.0) 07/18/21 16:00 Calcium 7.8 mg/dL (8.4-10.2) L 07/19/21 04:59 Ferritin 657.0 ng/mL (10.0-200.0) H 07/18/21 16:00 Total Bilirubin 0.20 mg/dL (0.1-1.2) 07/19/21 04:59 AST 36 units/L (5-40) 07/19/21 04:59 ALT 14 units/L (7-56) 07/19/21 04:59 Alkaline Phosphatase 58 units/L (35-129) 07/19/21 04:59 Ammonia 37.0 umol/L (25-60) 07/18/21 16:00 Lactate Dehydrogenase 705 units/L (91-180) H 07/18/21 16:00 Total Creatine Kinase 157 units/L (30-135) H 07/18/21 16:00 Troponin T 0.106 ng/mL (0.00-0.029) H* 07/18/21 16:00 C-Reactive Protein 33.00 mg/dL (0.00-1.30) H 07/18/21 16:00 Total Protein 6.2 g/dL (6.3-8.2) L 07/19/21 04:59 Albumin 3.2 g/dL (3.9-5) L 07/19/21 04:59 Albumin/Globulin Ratio 1.1 % 07/19/21 04:59 Triglycerides 156 mg/dL (2-149) H 07/18/21 16:00 Cholesterol 127 mg/dL (50-199) 07/18/21 16:00 LDL Cholesterol Direct 64 mg/dL (50-130) 07/18/21 16:00 HDL Cholesterol 33 mg/dL (40-59) L 07/18/21 16:00 Cholesterol/HDL Ratio 3.84 % 07/18/21 16:00 Procalcitonin 1.28 ng/mL (<0.15) 07/18/21 16:00 TSH 0.384 mlU/mL (0.270-4.200) 07/18/21 16:00 Arterial Blood Glucose 150 mg/dL (65-95) H 07/19/21 04:33 Urine Color Yellow (Yellow) 07/18/21 Unknown Urine Turbidity Slightly-cloudy (Clear) 07/18/21 Unknown Urine pH 5.0 (5.0-7.0) 07/18/21 Unknown Ur Specific Nucla 1.020 (1.003-1.030) 07/18/21 Unknown Urine Protein >500 mg/dL (Negative) 07/18/21 Unknown Urine Glucose (UA) Neg mg/dL (Negative) 07/18/21 Unknown Urine Ketones 20 mg/dL (Negative) 07/18/21 Unknown Urine Blood Neg (Negative) 07/18/21 Unknown Urine Nitrite Neg (Negative) 07/18/21 Unknown Urine Bilirubin Neg (Negative) 07/18/21 Unknown Urine Urobilinogen < 2.0 mg/dL (<2.0) 07/18/21 Unknown Ur Leukocyte Esterase Neg (Negative) 07/18/21 Unknown Urine WBC (Auto) 9.0 /HPF (0.0-6.0) H 07/18/21 Unknown Urine RBC (Auto) 2.0 /HPF (0.0-6.0) 07/18/21 Unknown U Epithel Cells (Auto) 1.0 /HPF (0-13.0) 07/18/21 Unknown Urine Bacteria (Auto) 1+ /HPF (Negative) 07/18/21 Unknown Amorphous Crystals Few 07/18/21 Unknown Urine Mucus Few /HPF 07/18/21 Unknown Salicylates < 0.3 mg/dL (2.8-20.0) L 07/18/21 16:00 Urine Opiates Screen Negative 07/18/21 Unknown Urine Methadone Screen Negative 07/18/21 Unknown Acetaminophen 5.7 ug/mL (10.0-30.0) L 07/18/21 16:00 Ur Barbiturates Screen Negative 07/18/21 Unknown Ur Phencyclidine Scrn Negative 07/18/21 Unknown Ur Amphetamines Screen Negative 07/18/21 Unknown U Benzodiazepines Scrn Negative 07/18/21 Unknown Urine Cocaine Screen Negative 07/18/21 Unknown U Marijuana (THC) Screen Negative 07/18/21 Unknown Drugs of Abuse Note Disclamer 07/18/21 Unknown Plasma/Serum Alcohol < 0.01 % (0-0.07) 07/18/21 16:00 Coronavirus (PCR) Positive (Negative) A 07/19/21 Unknown Blood Type O POSITIVE 07/18/21 16:05 Antibody Screen Negative 07/18/21 16:05 Microbiology: Microbiology 07/18/21 Unknown Sputum - Endotracheal Wash Sputum Culture - Preliminary 07/18/21 16:00 Peripheral/Venous Blood Culture - Preliminary Culture in Progress 07/18/21 16:00 Peripheral/Venous Blood Culture - Preliminary Culture in Progress Active Medications - Current Medications Current Medications: Generic Name Dose Route Start Last Admin Trade Name Freq PRN Reason Stop Dose Admin Acetaminophen 650 mg 07/18/21 22:49 Acetaminophen 325 Mg Tab PO Q4H PRN Pain MILD(1-3)/Fever >100.5/URENA Lipase/Protease/Amylase 1 each 07/18/21 22:56 Lipase 10,500/Protease 25,000/Amylase 43,750 (Units) Dr Cap FEEDTUBE PRN PRN For Clogged Feeding Tube Enoxaparin Sodium 100 mg 07/19/21 10:00 07/19/21 11:00 Enoxaparin 100 Mg/1 Ml Inj SUB-Q 100 mg Q12HR NICOLE Administration Protocol Famotidine 20 mg 07/18/21 22:00 07/19/21 11:36 Famotidine 20 Mg/2 Ml Inj IV 20 mg BID NICOLE Administration Fentanyl 50 mcg 07/18/21 14:41 Fentanyl 100 Mcg/2 Ml Inj IV Q10MIN PRN ANALGESIA Hydrophilic Ointment 1 applic 07/18/21 14:41 Lip Therapy Vaseline TP Q2HR PRN Dry Lips Fentanyl Citrate 2,000 mcg in 100 mls @ 4.915 mls/hr 07/18/21 16:00 07/19/21 09:29 Fentanyl Drip Premix IV 1 mcg/kg/hr TITR NICOLE 4.915 mls/hr Titration Protocol 1 MCG/KG/HR Midazolam HCl 100 mg/ Sodium 100 mls @ 2 mls/hr 07/18/21 19:00 07/19/21 09:28 Chloride IV 5 mg/hr TITR NICOLE 5 mls/hr Titration Protocol 2 MG/HR Azithromycin 500 mg in 250 mls @ 250 mls/hr 07/19/21 20:00 Zithromax/Ns IV Q24H [facility] Ceftriaxone Sodium 2 gm in 100 mls @ 200 mls/hr 07/19/21 20:00 Rocephin/Ns 2 Gm/100 Ml IV Q24H [facility] Protocol REMDESIVIR 100 mg/ Sodium 250 mls @ 500 mls/hr 07/20/21 21:00 Chloride IV 07/23/21 21:29 Q24HR@2100 [facility] Insulin Human Lispro 0 unit 07/19/21 18:00 Insulin Lispro 100 Unit/Ml SUB-Q Q6H [facility] Protocol Methylprednisolone Sodium Succinate 60 mg 07/18/21 23:00 07/19/21 15:07 Methylprednisolone Sod Succinate 125 Mg/2 Ml Inj IV 60 mg Q8HR NICOLE Administration Midazolam HCl 2 mg 07/18/21 18:11 Midazolam 2 Mg/2 Ml Inj IV Q10MIN PRN Sedation Multi-Ingred Cream/Lotion/Oil/Oint 1 applic 07/18/21 14:41 Mineral Oil/Petrolatum, White Ophth Oint 3.5 Gm OU Q4HR PRN Dry Eye(s) Ondansetron HCl 4 mg 07/18/21 22:49 Ondansetron 4 Mg/2 Ml Inj IV Q8H PRN Nausea And Vomiting Senna/Docusate Sodium 1 tab 07/18/21 22:00 07/19/21 11:36 Sennosides/Docusate Sodium 8.6/50 Mg Tab FEEDTUBE Not Given BID NICOLE Simple Syrup 15 ml 07/18/21 22:56 Simple Syrup 15 Ml FEEDTUBE PRN PRN Hypoglycemia Simple Syrup 30 ml 07/18/21 22:56 Simple Syrup 15 Ml FEEDTUBE PRN PRN Hypoglycemia Sodium Bicarbonate 325 mg 07/18/21 22:56 Sodium Bicarbonate 325 Mg Tab FEEDTUBE PRN PRN For Clogged Feeding Tube Sodium Chloride 10 ml 07/19/21 10:00 07/19/21 11:36 Sodium Chloride 0.9% 10 Ml Flush Syringe IV 10 ml BID NICOLE Administration Sodium Chloride 10 ml 07/18/21 22:49 Sodium Chloride 0.9% 10 Ml Flush Syringe IV PRN PRN LINE FLUSH Sodium Chloride 50 ml 07/19/21 17:00 Sodium Chloride 0.9% 50 Ml Ivpb IV 07/22/21 21:01 [id number]@2100 [facility] Nutrition/Malnutrition Assess - Dietary Evaluation Nutrition/Malnutrition Findings: Nutrition Notes Start: 07/19/21 09 :15 Freq: Status: Active Protocol: Document 07/19/21 09:15 GURPREET (Rec: 07/19/21 09:39 GURPREET [id number]) Nutrition Notes Need for Assessment generated from: MD Order Initial or Follow up Assessment Current Diagnosis Acute Kidney Injury,Diabetes, Hypertension,Respiratory Failure Other Pertinent Diagnosis COVID PUI Current Diet TF Labs/Tests BUN 28 Cr 1.8 BG 145 Pertinent Medications NS at 75 ml/hr Solu Medrol Height 5 ft 6 in Weight 98.3 kg [place] Body Weight (kg) 59.09 BMI 34.9 Weight Status Obese Subjective/Other Information MD order to eval intakes and TF. Pt on vent. Burn Absent Trauma Absent Minimum of two criteria No #1 Nutrition Diagnosis Inadequate oral intake Etiology respiratory failure As Evidenced by Signs and Symptoms pt on vent and unable to consume PO Is patient on ventilator? Yes Is Patient Ambulatory and/or Out of Bed No REE-([place]-confined to bed) 1923.708 Kcal/Kg value to use for calculation 14 Approximate Energy Requirements Using 1376 kcal/Kg Calculation Used for Recommendations Kcal/kg Additional Notes Protein: (>2g/kg IBW) >118g Fluid: 1 ml/kcal or per MD Nutrition Intervention Change Diet Order: Start TF Nutrition Support: Vital HP at 55 ml/hr Flush 50 ml q4h Kcal 1,320 Protein (gm) 116 Fluid (mL) 1,104 Goal #1 Meet at least 75% of protein and kcal needs via TF Anticipated Discharge Needs: Unable to determine at this time Follow-Up By: 07/21/21 Additional Comments F/u: TF start and tolerance
[2021-07-19] MEDS ORDERED: REMDESIVIR 200 MG in SODIUM CHLORIDE 0.9% 250ML 250 ML IV ONE (17:00)
[2021-07-19] MEDS: SODIUM CHLORIDE 0.9% 50 ML IVPB IV SCH ×2 (18:00→21:00)
[2021-07-19] MEDS: INSULIN LISPRO 100 UNIT/ML SUB-Q SCH (18:00)
[2021-07-19 18:22] LABS: ABG Base Excess -4.5 mmol/L (-2.0-3.0); ABG HCO3 20.1 mmol/L (20.0-26.0); ABG Methemoglobin 0.6 % (0.0-1.5); ABG Oxygen Saturation 93.2 % (95.0-99.0); ABG PCO2 35.2 mm Hg; ABG PH 7.374 pH Units (7.350-7.450); ABG PO2 64.2 mm Hg (80.0-90.0)
[2021-07-19] MEDS ORDERED: SODIUM CHLORIDE 0.9% 1000 ML 1,000 ML ONE (19:34)
[2021-07-20] MEDS: AZITHROMYCIN/NS 500 MG/250 ML 500 MG/250 ML BAG IV SCH ×2 (01:14→20:58)
[2021-07-20] MEDS: FAMOTIDINE 20 MG/2 ML INJ IV SCH ×3 (01:14→21:09)
[2021-07-20] MEDS: cefTRIAXone/NS 2 GM/100 ML 2 GM/100 ML BAG IV SCH ×2 (01:14→20:59)
[2021-07-20] MEDS: methylPREDNISolone Sod Succinate 125 MG/2 ML INJ IV SCH ×4 (01:14→21:09)
[2021-07-20] MEDS: MIDAZOLAM 100 MG in SODIUM CHLORIDE 0.9% 80 ML IV SCH (03:39)
[2021-07-20 05:54] LABS: Hematocrit 29.3 % (30.3-42.9); Hemoglobin 9.7 gm/dl (10.1-14.3); Mean Corpuscular HGB Conc 33 % (30-34); Mean Corpuscular Volume 86 fl (79-97); Platelet Count 214 K/mm3 (140-440); Red Blood Count 3.42 M/mm3 (3.65-5.03); Red Cell Distribution Width 16.1 % (13.2-15.2)
[2021-07-20 06:18] LABS: Alanine Aminotransferase 13 units/L (7-56); Albumin 2.8 g/dL (3.9-5); BUN/Creatinine Ratio 29; Blood Urea Nitrogen 38 mg/dL (7-17); Calcium 8.1 mg/dL (8.4-10.2); Hemolysis Index 16
[2021-07-20] MEDS: INSULIN LISPRO 100 UNIT/ML SUB-Q SCH ×4 (07:11→18:05)
[2021-07-20] MEDS ORDERED: TOCILIZUMAB 810 MG in SODIUM CHLORIDE 0.9% 100 ML IV ONE (08:00)
--- NOTE | 2021-07-20 08:55 | Electrocardiograph Report ---
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
[2021-07-20] MEDS: ENOXAPARIN 100 MG/1 ML INJ SUB-Q SCH ×2 (10:01→21:07)
[2021-07-20] MEDS: fentaNYL DRIP Premix 2,000 MCG/100 ML BAG IV SCH (10:04)
[2021-07-20] MEDS: SENNOSIDES/DOCUSATE SODIUM 8.6/50 MG TAB FEEDTUBE SCH ×2 (10:15→21:08)
--- NOTE | 2021-07-20 10:45 | Progress Note ---
Assessment and Plan Assessment and plan: 55-year-old -[place] female with history of hypertension and diabetes brought in by EMS with very low oxygen saturations and on CPAP. In spite of being on CPAP patient was saturating in the high 20s 60s and low 70s. Patient is awake and moving all 4 extremities. Patient also fighting to take out the CPAP. Because of the persistently low oxygen levels patient was intubated in the emergency room to improve the oxygenation levels. Patient was intubated emergently by Dr. Dumont in the emergency room. Status of vaccination with Covid not known. Much history is not available. Remains intubated and ventilated in ER; while waiting on ICU bed NEURO; ANXIETY; AMS/ METABOLIC ENCEPHALOPATHY/ REQUIRING SEDATION NOK daughter updated by Dr Knight her no is [phone] sedated on fentanyl/versed SAT as tolerated responding to voice CV: bradycardia; sp PE SR---now SB NO rate lowering meds MAP goal > 65 PRN vaso/NE EKG ordered Echo ordered RESP: ACUTE RESP FAILURE WITH PE/COVID19 PNA mechanically ventilated see RT notes TV to 420, PEEP 16, FiO2 .85 trend ABG and chest xray CTA pos PE GI; PROTEIN JOELLEN MALNUTRITION nutrition following PPI bowel reg TF infusing PPI bowel reg : volume overload; ION likely due to poor perfusion follow and replace electrolytes as needed trend Cr 1.3 today making urine mahan for strict I/O HEME: coagulopathic with covid19 no bleeding on exam trend CBC on enoxaparin ID: [id number] pna with PE ID following trend WBC and temp curve follow culture data continue remdes./ methylpred and empiric antibiotics PRN tylenol for fever ENDO- stress hyperglycemia; DM2; obesity SSI PRN avoid hypoglycemia thyroid studies in AM The high probability of a clinically significant, sudden or life threatening deterioration of the [] system(s) required my full and direct attention, intervention and personal management. The aggregate critical care time was [60] minutes. This time is in addition to time spent performing reported procedures but includes the following: [x] Data Review and interpretation [x] Patient assessment and monitoring of vital signs [x] Documentation [x] Medication orders and management 07/18 admit to hospital via ER; being held in ER for ICU bed 07/19 remains in ER intubated and mechanically ventilated; covid pos 07-20 came to ICU overnight from ER; no bradycardic Disposition Plan: icu Total Time Spent with Patient (Minutes): 60 History Interval history: no acute events overnight Hospitalist Physical - Constitutional Vitals: Temp Pulse Resp BP Pulse Ox 98.1 F 53 L 19 112/72 100 07/20/21 09:30 07/20/21 08:27 07/19/21 23:10 07/20/21 08:27 07/20/21 08:27 General appearance: Present: no acute distress, well-nourished - EENT Eyes: Present: PERRL ENT: clear oral mucosa - Neck Neck: Present: supple - Respiratory Respiratory effort: normal - Cardiovascular Heart Sounds: Present: S1 & S2 - Extremities Extremity abnormal: edema - Abdominal General gastrointestinal: soft - Integumentary Integumentary: Present: clear, warm, dry - Psychiatric Psychiatric: other - Neurologic Neurologic: other - Allied Health Allied health notes reviewed: nursing, RT, social work, case management HEART Score - HEART Score Troponin: Troponin T 0.106 ng/mL (0.00-0.029) H* 07/18/21 16:00 Results - Labs CBC & Chem 7: 07/20/21 04:44 07/20/21 04:44 Labs: Laboratory Last Values WBC 9.1 K/mm3 (4.5-11.0) 07/20/21 04:44 RBC 3.42 M/mm3 (3.65-5.03) L 07/20/21 04:44 Hgb 9.7 gm/dl (10.1-14.3) L 07/20/21 04:44 Hct 29.3 % (30.3-42.9) L 07/20/21 04:44 MCV 86 fl (79-97) 07/20/21 04:44 MCH 28 pg (28-32) 07/20/21 04:44 MCHC 33 % (30-34) 07/20/21 04:44 RDW 16.1 % (13.2-15.2) H 07/20/21 04:44 Plt Count 214 K/mm3 (140-440) 07/20/21 04:44 Lymph % (Auto) 10.7 % (13.4-35.0) L 07/19/21 04:59 Thomas % (Auto) 4.8 % (0.0-7.3) 07/19/21 04:59 Eos % (Auto) 0.1 % (0.0-4.3) 07/19/21 04:59 Baso % (Auto) 0.1 % (0.0-1.8) 07/19/21 04:59 Lymph # (Auto) 1.1 K/mm3 (1.2-5.4) L 07/19/21 04:59 Thomas # (Auto) 0.5 K/mm3 (0.0-0.8) 07/19/21 04:59 Eos # (Auto) 0.0 K/mm3 (0.0-0.4) 07/19/21 04:59 Baso # (Auto) 0.0 K/mm3 (0.0-0.1) 07/19/21 04:59 Seg Neutrophils % 84.3 % (40.0-70.0) H 07/19/21 04:59 Seg Neutrophils # 8.7 K/mm3 (1.8-7.7) H 07/19/21 04:59 PT 15.1 Sec. (12.2-14.9) H 07/18/21 16:00 INR 1.13 (0.87-1.13) 07/18/21 16:00 APTT 31.9 Sec. (24.2-36.6) 07/18/21 16:00 D-Dimer > 43723 ng/mlDDU (0-234) H 07/18/21 16:00 ABG pH 7.375 (7.320-7.450) 07/20/21 05:00 POC ABG pCO2 34.6 mmHg (32.0-48.0) 07/20/21 05:00 ABG pCO2 35.2 mm Hg 07/19/21 Unknown POC ABG pO2 139.0 mmHg (83-108) H 07/20/21 05:00 ABG pO2 64.2 mm Hg (80.0-90.0) L 07/19/21 Unknown POC ABG HCO3 19.8 07/20/21 05:00 ABG HCO3 20.1 mmol/L (20.0-26.0) 07/19/21 Unknown ABG O2 Saturation 98.5 (0-100) 07/20/21 05:00 ABG O2 Content 14.3 (0.0-44) 07/19/21 Unknown POC ABG Base Excess -4.8 07/20/21 05:00 ABG Base Excess -4.5 mmol/L (-2.0-3.0) L 07/19/21 Unknown ABG Hemoglobin 10.1 (12.0-17.5) L 07/20/21 05:00 ABG Oxyhemoglobin 97.9 (94-98) 07/20/21 05:00 ABG Carboxyhemoglobin 0.8 % (0.0-5.0) 07/19/21 Unknown ABG Methemoglobin 0.3 (0.0-1.5) 07/20/21 05:00 ABG Sodium 144.5 mmol/L (136.0-145.0) 07/20/21 05:00 ABG Potassium 4.2 mmol/L (3.40-4.50) 07/20/21 05:00 ABG Chloride 113.0 mmol/L (98-107) H 07/20/21 05:00 ABG Glucose 155 mg/dL (65-95) H 07/20/21 05:00 Oxyhemoglobin 91.9 % (95.0-99.0) L 07/19/21 Unknown Carboxyhemoglobin 0.3 (0.5-1.5) L 07/20/21 05:00 FiO2 100 % 07/19/21 Unknown FiO2 % 100.0 07/20/21 05:00 Sodium 145 mmol/L (137-145) 07/20/21 04:44 Potassium 4.4 mmol/L (3.6-5.0) 07/20/21 04:44 Chloride 112.2 mmol/L (98-107) H 07/20/21 04:44 Carbon Dioxide 22 mmol/L (22-30) 07/20/21 04:44 Anion Gap 15 mmol/L 07/20/21 04:44 BUN 38 mg/dL (7-17) H 07/20/21 04:44 Creatinine 1.3 mg/dL (0.6-1.2) H 07/20/21 04:44 Estimated GFR 52 ml/min 07/20/21 04:44 BUN/Creatinine Ratio 29 % 07/20/21 04:44 Glucose 156 mg/dL (65-100) H 07/20/21 04:44 POC Glucose 164 mg/dL (70-105) H 07/20/21 05:40 Lactic Acid 1.40 mmol/L (0.7-2.0) 07/18/21 16:00 Calcium 8.1 mg/dL (8.4-10.2) L 07/20/21 04:44 Phosphorus 3.70 mg/dL (2.5-4.5) 07/20/21 04:44 Magnesium 3.10 mg/dL (1.7-2.3) H 07/20/21 04:44 Ferritin 657.0 ng/mL (10.0-200.0) H 07/18/21 16:00 Total Bilirubin < 0.20 mg/dL (0.1-1.2) 07/20/21 04:44 AST 24 units/L (5-40) 07/20/21 04:44 ALT 13 units/L (7-56) 07/20/21 04:44 Alkaline Phosphatase 64 units/L (35-129) 07/20/21 04:44 Ammonia 37.0 umol/L (25-60) 07/18/21 16:00 Lactate Dehydrogenase 705 units/L (91-180) H 07/18/21 16:00 Total Creatine Kinase 157 units/L (30-135) H 07/18/21 16:00 Troponin T 0.106 ng/mL (0.00-0.029) H* 07/18/21 16:00 C-Reactive Protein 33.00 mg/dL (0.00-1.30) H 07/18/21 16:00 Total Protein 6.6 g/dL (6.3-8.2) 07/20/21 04:44 Albumin 2.8 g/dL (3.9-5) L 07/20/21 04:44 Albumin/Globulin Ratio 0.7 % 07/20/21 04:44 Triglycerides 156 mg/dL (2-149) H 07/18/21 16:00 Cholesterol 127 mg/dL (50-199) 07/18/21 16:00 LDL Cholesterol Direct 64 mg/dL (50-130) 07/18/21 16:00 HDL Cholesterol 33 mg/dL (40-59) L 07/18/21 16:00 Cholesterol/HDL Ratio 3.84 % 07/18/21 16:00 Procalcitonin 1.28 ng/mL (<0.15) 07/18/21 16:00 TSH 0.384 mlU/mL (0.270-4.200) 07/18/21 16:00 Arterial Blood Glucose 155 mg/dL (65-95) H 07/20/21 05:00 Arterial Blood Ionized Calcium 4.4 mg/dL (4.6-5.3) L 07/20/21 05:00 Urine Color Yellow (Yellow) 07/18/21 Unknown Urine Turbidity Slightly-cloudy (Clear) 07/18/21 Unknown Urine pH 5.0 (5.0-7.0) 07/18/21 Unknown Ur Specific [place] 1.020 (1.003-1.030) 07/18/21 Unknown Urine Protein >500 mg/dL (Negative) 07/18/21 Unknown Urine Glucose (UA) Neg mg/dL (Negative) 07/18/21 Unknown Urine Ketones 20 mg/dL (Negative) 07/18/21 Unknown Urine Blood Neg (Negative) 07/18/21 Unknown Urine Nitrite Neg (Negative) 07/18/21 Unknown Urine Bilirubin Neg (Negative) 07/18/21 Unknown Urine Urobilinogen < 2.0 mg/dL (<2.0) 07/18/21 Unknown Ur Leukocyte Esterase Neg (Negative) 07/18/21 Unknown Urine WBC (Auto) 9.0 /HPF (0.0-6.0) H 07/18/21 Unknown Urine RBC (Auto) 2.0 /HPF (0.0-6.0) 07/18/21 Unknown U Epithel Cells (Auto) 1.0 /HPF (0-13.0) 07/18/21 Unknown Urine Bacteria (Auto) 1+ /HPF (Negative) 07/18/21 Unknown Amorphous Crystals Few 07/18/21 Unknown Urine Mucus Few /HPF 07/18/21 Unknown Salicylates < 0.3 mg/dL (2.8-20.0) L 07/18/21 16:00 Urine Opiates Screen Negative 07/18/21 Unknown Urine Methadone Screen Negative 07/18/21 Unknown Acetaminophen 5.7 ug/mL (10.0-30.0) L 07/18/21 16:00 Ur Barbiturates Screen Negative 07/18/21 Unknown Ur Phencyclidine Scrn Negative 07/18/21 Unknown Ur Amphetamines Screen Negative 07/18/21 Unknown U Benzodiazepines Scrn Negative 07/18/21 Unknown Urine Cocaine Screen Negative 07/18/21 Unknown U Marijuana (THC) Screen Negative 07/18/21 Unknown Drugs of Abuse Note Disclamer 07/18/21 Unknown Plasma/Serum Alcohol < 0.01 % (0-0.07) 07/18/21 16:00 Coronavirus (PCR) Positive (Negative) A 07/19/21 Unknown Blood Type O POSITIVE 07/18/21 16:05 Antibody Screen Negative 07/18/21 16:05 Microbiology: Microbiology 07/18/21 Unknown Sputum - Endotracheal Wash Sputum Culture - Final 07/18/21 16:00 Peripheral/Venous Blood Culture - Preliminary NO GROWTH AFTER 24 HOURS 07/18/21 16:00 Peripheral/Venous Blood Culture - Preliminary NO GROWTH AFTER 24 HOURS Mahan/IV: Voiding Method Indwelling Catheter Active Medications - Current Medications Current Medications: Generic Name Dose Route Start Last Admin Trade Name Freq PRN Reason Stop Dose Admin Acetaminophen 650 mg 07/18/21 22:49 Acetaminophen 325 Mg Tab PO Q4H PRN Pain MILD(1-3)/Fever >100.5/URENA Lipase/Protease/Amylase 1 each 07/18/21 22:56 Lipase 10,500/Protease 25,000/Amylase 43,750 (Units) Dr Cap FEEDTUBE PRN PRN For Clogged Feeding Tube Enoxaparin Sodium 100 mg 07/19/21 10:00 07/20/21 10:01 Enoxaparin 100 Mg/1 Ml Inj SUB-Q 100 mg Q12HR [facility] Administration Protocol Famotidine 20 mg 07/18/21 22:00 07/20/21 10:02 Famotidine 20 Mg/2 Ml Inj IV 20 mg BID NICOLE Administration Fentanyl 50 mcg 07/18/21 14:41 Fentanyl 100 Mcg/2 Ml Inj IV Q10MIN PRN ANALGESIA Hydrophilic Ointment 1 applic 07/18/21 14:41 Lip Therapy Vaseline TP Q2HR PRN Dry Lips Fentanyl Citrate 2,000 mcg in 100 mls @ 4.915 mls/hr 07/18/21 16:00 07/20/21 10:04 Fentanyl Drip Premix IV 1 mcg/kg/hr TITR NICOLE 4.915 mls/hr Administration Protocol 1 MCG/KG/HR Midazolam HCl 100 mg/ Sodium 100 mls @ 2 mls/hr 07/18/21 19:00 07/20/21 03:39 Chloride IV 1 mg/hr TITR NICOLE 1 mls/hr Administration Protocol 2 MG/HR Azithromycin 500 mg in 250 mls @ 250 mls/hr 07/19/21 20:00 07/20/21 01:14 Zithromax/Ns IV 07/23/21 20:59 250 mls/hr Q24H NICOLE Administration Ceftriaxone Sodium 2 gm in 100 mls @ 200 mls/hr 07/19/21 20:00 07/20/21 01:14 Rocephin/Ns 2 Gm/100 Ml IV 07/23/21 20:29 200 mls/hr Q24H NICOLE Administration Protocol REMDESIVIR 100 mg/ Sodium 250 mls @ 500 mls/hr 07/20/21 21:00 Chloride IV 07/23/21 21:29 Q24HR@2100 NICOLE Insulin Human Lispro 0 unit 07/19/21 18:00 07/20/21 07:11 Insulin Lispro 100 Unit/Ml SUB-Q 2 unit Q6H NICOLE Administration Protocol Methylprednisolone Sodium Succinate 60 mg 07/18/21 23:00 07/20/21 07:08 Methylprednisolone Sod Succinate 125 Mg/2 Ml Inj IV 60 mg Q8HR NICOLE Administration Midazolam HCl 2 mg 07/18/21 18:11 Midazolam 2 Mg/2 Ml Inj IV Q10MIN PRN Sedation Multi-Ingred Cream/Lotion/Oil/Oint 1 applic 07/18/21 14:41 Mineral Oil/Petrolatum, White Ophth Oint 3.5 Gm OU Q4HR PRN Dry Eye(s) Ondansetron HCl 4 mg 07/18/21 22:49 Ondansetron 4 Mg/2 Ml Inj IV Q8H PRN Nausea And Vomiting Senna/Docusate Sodium 1 tab 07/18/21 22:00 07/19/21 11:36 Sennosides/Docusate Sodium 8.6/50 Mg Tab FEEDTUBE Not Given BID NICOLE Simple Syrup 15 ml 07/18/21 22:56 Simple Syrup 15 Ml FEEDTUBE PRN PRN Hypoglycemia Simple Syrup 30 ml 07/18/21 22:56 Simple Syrup 15 Ml FEEDTUBE PRN PRN Hypoglycemia Sodium Bicarbonate 325 mg 07/18/21 22:56 Sodium Bicarbonate 325 Mg Tab FEEDTUBE PRN PRN For Clogged Feeding Tube Sodium Chloride 10 ml 07/19/21 10:00 07/19/21 11:36 Sodium Chloride 0.9% 10 Ml Flush Syringe IV 10 ml BID NICOLE Administration Sodium Chloride 10 ml 07/18/21 22:49 Sodium Chloride 0.9% 10 Ml Flush Syringe IV PRN PRN LINE FLUSH Sodium Chloride 50 ml 07/19/21 17:00 07/19/21 18:00 Sodium Chloride 0.9% 50 Ml Ivpb IV 07/22/21 21:01 50 ml Q24HR@2100 NICOLE Administration Nutrition/Malnutrition Assess - Dietary Evaluation Nutrition/Malnutrition Findings: Nutrition Notes Start: 07/19/21 09:15 Freq: Status: Active Protocol: Document 07/19/21 09:15 GURPREET (Rec: 07/19/21 09:39 GURPREET [id number]) Nutrition Notes Need for Assessment generated from: MD Order Initial or Follow up Assessment Current Diagnosis Acute Kidney Injury,Diabetes, Hypertension,Respiratory Failure Other Pertinent Diagnosis COVID PUI Current Diet TF Labs/Tests BUN 28 Cr 1.8 BG 145 Pertinent Medications NS at 75 ml/hr Solu Medrol Height 5 ft 6 in Weight 98.3 kg [place] Body Weight (kg) 59.09 BMI 34.9 Weight Status Obese Subjective/Other Information MD order to eval intakes and TF. Pt on vent. Burn Absent Trauma Absent Minimum of two criteria No #1 Nutrition Diagnosis Inadequate oral intake Etiology respiratory failure As Evidenced by Signs and Symptoms pt on vent and unable to consume PO Is patient on ventilator? Yes Is Patient Ambulatory and/or Out of Bed No REE-([facility]-confined to bed) 1923.708 Kcal/Kg value to use for calculation 14 Approximate Energy Requirements Using 1376 kcal/Kg Calculation Used for Recommendations Kcal/kg Additional Notes Protein: (>2g/kg IBW) >118g Fluid: 1 ml/kcal or per MD Nutrition Intervention Change Diet Order: Start TF Nutrition Support: Vital HP at 55 ml/hr Flush 50 ml q4h Kcal 1,320 Protein (gm) 116 Fluid (mL) 1,104 Goal #1 Meet at least 75% of protein and kcal needs via TF Anticipated Discharge Needs: Unable to determine at this time Follow-Up By: 07/21/21 Additional Comments F/u: TF start and tolerance - Attestation Statement I have reviewed and agreed w/ Malnutrition eval & tx plan: Yes
--- NOTE | 2021-07-20 12:15 | Progress Note ---
Assessment and Plan 55 y/o obese female with acute respiratory failure, pulmonary embolism, now with renal failure, most likely all secondary to COVID 19 07/20/21: COVID positive. Started Remdesivir. Renal function improved. COntinue high dose steroids at current dosing for now. Suggest repeat ABG later this afternoon if able, may need art line but BP stable for now. No proning. Agree with therapeutic Lovenox. Guarded prognosis. 1. Follow up COVID testing, continue isolation 2. Agree with high dose IV steroids, if positive, will change to solumedrol 125q8 3. If positive then would need remdesivir and Actemra, hopefully still a candidate given bump in renal function 4. Unable to prone patient at moment, but did increase PEEP to 20 and ordered repeat ABG at 1400 5 Very very guarded prognosis CCT 31 minutes. Subjective Date of service: 07/20/21 Interval history: Now in unit. ABG was good this am. Mad some further adjustments in vent based off this. Sedation is adequate and is still making urine. Objective Vital Signs - 12hr 07/20/21 07/20/21 07/20/21 02:00 03:31 03:44 Temperature 97.6 F Pulse Rate 49 L Pulse Rate [ 48 L Right Dorsalis Pedis] Blood Pressure 117/72 O2 Sat by Pulse 96 98 Oximetry 07/20/21 07/20/21 07/20/21 04:00 05:23 08:27 Temperature Pulse Rate 48 L 53 L Pulse Rate [ 46 L Right Dorsalis Pedis] Blood Pressure 112/72 O2 Sat by Pulse 96 100 Oximetry 07/20/21 09:30 Temperature 98.1 F Pulse Rate Pulse Rate [ Right Dorsalis Pedis] Blood Pressure O2 Sat by Pulse Oximetry Constitutional: comatose ENT: other (orally intubated and sedated) CBC and BMP: 07/20/21 04:44 07/20/21 04:44 ABG, PT/INR, D-dimer: ABG ABG pH 7.375 (7.320-7.450) 07/20/21 05:00 POC ABG pCO2 34.6 mmHg (32.0-48.0) 07/20/21 05:00 ABG pCO2 35.2 mm Hg 07/19/21 Unknown POC ABG pO2 139.0 mmHg (83-108) H 07/20/21 05:00 ABG pO2 64.2 mm Hg (80.0-90.0) L 07/19/21 Unknown POC ABG HCO3 19.8 07/20/21 05:00 ABG O2 Saturation 98.5 (0-100) 07/20/21 05:00 PT/INR, D-dimer PT 15.1 Sec. (12.2-14.9) H 07/18/21 16:00 INR 1.13 (0.87-1.13) 07/18/21 16:00 D-Dimer > 53880 ng/mlDDU (0-234) H 07/18/21 16:00 Abnormal lab findings: Abnormal Labs 07/18/21 07/18/21 07/18/21 16:00 16:00 16:00 RBC Hgb Hct RDW 15.3 H Lymph % (Auto) 7.9 L Lymph # (Auto) 0.8 L Seg Neutrophils % 86.3 H Seg Neutrophils # 9.0 H PT 15.1 H D-Dimer > 96463 H ABG pH POC ABG pO2 ABG pO2 ABG O2 Saturation ABG Base Excess ABG Hemoglobin ABG Oxyhemoglobin ABG Chloride ABG Glucose Oxyhemoglobin Carboxyhemoglobin Potassium 3.5 L Chloride Carbon Dioxide 20 L BUN 19 H Creatinine Glucose 140 H POC Glucose Calcium Magnesium Ferritin AST 43 H Lactate Dehydrogenase 705 H Total Creatine Kinase 157 H Troponin T 0.106 H* C-Reactive Protein 33.00 H Total Protein Albumin 3.2 L Triglycerides 156 H HDL Cholesterol 33 L Arterial Blood Glucose Arterial Blood Ionized Calcium Urine WBC (Auto) Salicylates Acetaminophen Coronavirus (PCR) 07/18/21 07/18/21 07/18/21 16:00 16:00 16:00 RBC Hgb Hct RDW Lymph % (Auto) Lymph # (Auto) Seg Neutrophils % Seg Neutrophils # PT D-Dimer ABG pH POC ABG pO2 ABG pO2 ABG O2 Saturation ABG Base Excess ABG Hemoglobin ABG Oxyhemoglobin ABG Chloride ABG Glucose Oxyhemoglobin Carboxyhemoglobin Potassium Chloride Carbon Dioxide BUN Creatinine Glucose POC Glucose Calcium Magnesium Ferritin 657.0 H AST Lactate Dehydrogenase Total Creatine Kinase Troponin T C-Reactive Protein Total Protein Albumin Triglycerides HDL Cholesterol Arterial Blood Glucose Arterial Blood Ionized Calcium Urine WBC (Auto) Salicylates < 0.3 L Acetaminophen 5.7 L Coronavirus (PCR) 07/18/21 07/18/21 07/19/21 Unknown Unknown 04:33 RBC Hgb Hct RDW Lymph % (Auto) Lymph # (Auto) Seg Neutrophils % Seg Neutrophils # PT D-Dimer ABG pH 7.275 L POC ABG pO2 68.7 L 53.1 L ABG pO2 ABG O2 Saturation ABG Base Excess ABG Hemoglobin ABG Oxyhemoglobin 88.3 L 85.3 L ABG Chloride 109.0 H ABG Glucose 170 H 150 H Oxyhemoglobin Carboxyhemoglobin 0 L 0.3 L Potassium Chloride Carbon Dioxide BUN Creatinine Glucose POC Glucose Calcium Magnesium Ferritin AST Lactate Dehydrogenase Total Creatine Kinase Troponin T C-Reactive Protein Total Protein Albumin Triglycerides HDL Cholesterol Arterial Blood Glucose 170 H 150 H Arterial Blood Ionized Calcium Urine WBC (Auto) 9.0 H Salicylates Acetaminophen Coronavirus (PCR) 07/19/21 07/19/21 07/19/21 04:59 04:59 Unknown RBC Hgb Hct RDW 16.0 H Lymph % (Auto) 10.7 L Lymph # (Auto) 1.1 L Seg Neutrophils % 84.3 H Seg Neutrophils # 8.7 H PT D-Dimer ABG pH POC ABG pO2 ABG pO2 ABG O2 Saturation ABG Base Excess ABG Hemoglobin ABG Oxyhemoglobin ABG Chloride ABG Glucose Oxyhemoglobin Carboxyhemoglobin Potassium Chloride 108.8 H Carbon Dioxide 21 L BUN 28 H Creatinine 1.8 H Glucose 145 H POC Glucose Calcium 7.8 L Magnesium Ferritin AST Lactate Dehydrogenase Total Creatine Kinase Troponin T C-Reactive Protein Total Protein 6.2 L Albumin 3.2 L Triglycerides HDL Cholesterol Arterial Blood Glucose Arterial Blood Ionized Calcium Urine WBC (Auto) Salicylates Acetaminophen Coronavirus (PCR) Positive A 07/19/21 07/20/21 07/20/21 Unknown 00:14 04:44 RBC Hgb Hct RDW Lymph % (Auto) Lymph # (Auto) Seg Neutrophils % Seg Neutrophils # PT D-Dimer ABG pH POC ABG pO2 ABG pO2 64.2 L ABG O2 Saturation 93.2 L ABG Base Excess -4.5 L ABG Hemoglobin 11.0 L ABG Oxyhemoglobin ABG Chloride ABG Glucose Oxyhemoglobin 91.9 L Carboxyhemoglobin Potassium Chloride 112.2 H Carbon Dioxide BUN 38 H Creatinine 1.3 H Glucose 156 H POC Glucose 164 H Calcium 8.1 L Magnesium 3.10 H Ferritin AST Lactate Dehydrogenase Total Creatine Kinase Troponin T C-Reactive Protein Total Protein Albumin 2.8 L Triglycerides HDL Cholesterol Arterial Blood Glucose Arterial Blood Ionized Calcium Urine WBC (Auto) Salicylates Acetaminophen Coronavirus (PCR) 07/20/21 07/20/21 07/20/21 04:44 05:00 05:40 RBC 3.42 L Hgb 9.7 L Hct 29.3 L RDW 16.1 H Lymph % (Auto) Lymph # (Auto) Seg Neutrophils % Seg Neutrophils # PT D-Dimer ABG pH POC ABG pO2 139.0 H ABG pO2 ABG O2 Saturation ABG Base Excess ABG Hemoglobin 10.1 L ABG Oxyhemoglobin ABG Chloride 113.0 H ABG Glucose 155 H Oxyhemoglobin Carboxyhemoglobin 0.3 L Potassium Chloride Carbon Dioxide BUN Creatinine Glucose POC Glucose 164 H Calcium Magnesium Ferritin AST Lactate Dehydrogenase Total Creatine Kinase Troponin T C-Reactive Protein Total Protein Albumin Triglycerides HDL Cholesterol Arterial Blood Glucose 155 H Arterial Blood Ionized Calcium 4.4 L Urine WBC (Auto) Salicylates Acetaminophen Coronavirus (PCR) 07/20/21 11:40 RBC Hgb Hct RDW Lymph % (Auto) Lymph # (Auto) Seg Neutrophils % Seg Neutrophils # PT D-Dimer ABG pH POC ABG pO2 ABG pO2 ABG O2 Saturation ABG Base Excess ABG Hemoglobin ABG Oxyhemoglobin ABG Chloride ABG Glucose Oxyhemoglobin Carboxyhemoglobin Potassium Chloride Carbon Dioxide BUN Creatinine Glucose POC Glucose 137 H Calcium Magnesium Ferritin AST Lactate Dehydrogenase Total Creatine Kinase Troponin T C-Reactive Protein Total Protein Albumin Triglycerides HDL Cholesterol Arterial Blood Glucose Arterial Blood Ionized Calcium Urine WBC (Auto) Salicylates Acetaminophen Coronavirus (PCR)
[2021-07-20] MEDS ORDERED: DOPamine/D5W 800 MG/250 ML 800 MG/250 ML BAG IV SCH (14:00)
[2021-07-20] MEDS ORDERED: SODIUM CHLORIDE 0.9% 1000 ML 1,000 ML ONE (14:12)
[2021-07-20] MEDS ORDERED: SODIUM CHLORIDE 0.9% 1000 ML IV SOLN IV PRN (14:38)
--- NOTE | 2021-07-20 15:15 | Progress Note ---
Assessment and Plan Cultures: Blood culture 07/18/2021 no growth so far Urine culture 07/18/2021 no growth so far A/P: 55 yo F PMHx HTN, DM2 presents with severe COVID pneumonia. #Presumed COVID pneumonia: pending PCR, clinical presentation consistent with d iagnosis. Elevated procalcitonin as well, however in the setting of ION #Acute hypoxic respiratory failure: currently on the vent #Bilateral pulmonary emboli: anticoagulation per hoptal protocol #ION Recs: -Continue empiric ceftriaxone and azithromycin to complete 5 days -Complete 5 days remdesivir -Received Actemra 07/20/2021 -Anticoagulation per hospital protocol -Proning as able -Obtain q48-72h inflammatory markers - ferritin, Ddimer, CRP, LDH Thank you for the consult, we will continue to follow. Jessica Hassan MD [facility] ([facility]) O: [phone] F: [phone] Subjective Date of service: 07/20/21 Interval history: Afebrile, normal white count. Cultures remain negative. Covid positive. Remains on the vent. Objective - Exam Narrative Exam: Physical exam deferred to reduce risk of transmission of COVID-19. Please refer to primary team's note. - Constitutional Vitals: Vital Signs Temp Pulse Resp BP Pulse Ox 98.1 F 44 L 26 H 113/73 97 07/20/21 09:30 07/20/21 13:50 07/20/21 13:50 07/20/21 13:50 07/20/21 13:50 Temperature -Last 24 Hours Temperature 98.1 F Temperature 97.6 F Temperature 97.6 F - Labs CBC & Chem 7: 07/20/21 04:44 07/20/21 04:44 Labs: Abnormal lab results 07/19/21 07/20/21 07/20/21 Range/Units Unknown 00:14 04:44 RBC (3.65-5.03) M/mm3 Hgb (10.1-14.3) gm/dl Hct (30.3-42.9) % RDW (13.2-15.2) % POC ABG pO2 (83-108) mmHg ABG pO2 64.2 L (80.0-90.0) mm Hg ABG O2 Saturation 93.2 L (95.0-99.0) % ABG Base Excess -4.5 L (-2.0-3.0) mmol/L ABG Hemoglobin 11.0 L (12.0-16.0) gm/dl ABG Chloride (98-107) mmol/L ABG Glucose (65-95) mg/dL Oxyhemoglobin 91.9 L (95.0-99.0) % Carboxyhemoglobin (0.5-1.5) Chloride 112.2 H (98-107) mmol/L BUN 38 H (7-17) mg/dL Creatinine 1.3 H (0.6-1.2) mg/dL Glucose 156 H (65-100) mg/dL POC Glucose 164 H (70-105) mg/dL Calcium 8.1 L (8.4-10.2) mg/dL Magnesium 3.10 H (1.7-2.3) mg/dL Albumin 2.8 L (3.9-5) g/dL Arterial Blood Glucose (65-95) mg/dL Arterial Blood Ionized Calcium (4.6-5.3) mg/dL 07/20/21 07/20/21 07/20/21 Range/Units 04:44 05:00 05:40 RBC 3.42 L (3.65-5.03) M/mm3 Hgb 9.7 L (10.1-14.3) gm/dl Hct 29.3 L (30.3-42.9) % RDW 16.1 H (13.2-15.2) % POC ABG pO2 139.0 H (83-108) mmHg ABG pO2 (80.0-90.0) mm Hg ABG O2 Saturation (95.0-99.0) % ABG Base Excess (-2.0-3.0) mmol/L ABG Hemoglobin 10.1 L (12.0-16.0) gm/dl ABG Chloride 113.0 H (98-107) mmol/L ABG Glucose 155 H (65-95) mg/dL Oxyhemoglobin (95.0-99.0) % Carboxyhemoglobin 0.3 L (0.5-1.5) Chloride (98-107) mmol/L BUN (7-17) mg/dL Creatinine (0.6-1.2) mg/dL Glucose (65-100) mg/dL POC Glucose 164 H (70-105) mg/dL Calcium (8.4-10.2) mg/dL Magnesium (1.7-2.3) mg/dL Albumin (3.9-5) g/dL Arterial Blood Glucose 155 H (65-95) mg/dL Arterial Blood Ionized Calcium 4.4 L (4.6-5.3) mg/dL 07/20/21 Range/Units 11:40 RBC (3.65-5.03) M/mm3 Hgb (10.1-14.3) gm/dl Hct (30.3-42.9) % RDW (13.2-15.2) % POC ABG pO2 (83-108) mmHg ABG pO2 (80.0-90.0) mm Hg ABG O2 Saturation (95.0-99.0) % ABG Base Excess (-2.0-3.0) mmol/L ABG Hemoglobin (12.0-16.0) gm/dl ABG Chloride (98-107) mmol/L ABG Glucose (65-95) mg/dL Oxyhemoglobin (95.0-99.0) % Carboxyhemoglobin (0.5-1.5) Chloride (98-107) mmol/L BUN (7-17) mg/dL Creatinine (0.6-1.2) mg/dL Glucose (65-100) mg/dL POC Glucose 137 H (70-105) mg/dL Calcium (8.4-10.2) mg/dL Magnesium (1.7-2.3) mg/dL Albumin (3.9-5) g/dL Arterial Blood Glucose (65-95) mg/dL Arterial Blood Ionized Calcium (4.6-5.3) mg/dL
--- NOTE | 2021-07-20 17:42 | Procedure Note ---
Date of procedure: 07/20/21 (kumar) Pre-op diagnosis: resp failure Procedure: right RADIAL KUMAR INSERTED WITHOUT DIFFICULTY Procedure completed under sterile technique. Site prepped with CHG. US used to identify radial artery. Artery cannulated without difficulty. Transduced to monitor with good waveform. Pt tolerated procedure well. Time spent not included Pathology: none Disposition: ICU
[2021-07-20] MEDS: SODIUM CHLORIDE 0.9% 50 ML IVPB IV SCH (21:44)
[2021-07-20] MEDS: REMDESIVIR 100 MG in SODIUM CHLORIDE 0.9% 250ML 250 ML IV SCH (21:44)
[2021-07-21] MEDS: fentaNYL DRIP Premix 2,000 MCG/100 ML BAG IV SCH ×2 (00:06→20:23)
[2021-07-21 05:25] LABS: Alanine Aminotransferase 15 units/L (7-56); BUN/Creatinine Ratio 35; Blood Urea Nitrogen 49 mg/dL (7-17); Calcium 8.3 mg/dL (8.4-10.2); Hemolysis Index 1
[2021-07-21] MEDS: methylPREDNISolone Sod Succinate 125 MG/2 ML INJ IV SCH ×3 (06:22→21:05)
[2021-07-21] MEDS: INSULIN LISPRO 100 UNIT/ML SUB-Q SCH ×5 (06:23→23:58)
[2021-07-21] MEDS: ENOXAPARIN 100 MG/1 ML INJ SUB-Q SCH ×2 (10:07→21:06)
[2021-07-21] MEDS: SENNOSIDES/DOCUSATE SODIUM 8.6/50 MG TAB FEEDTUBE SCH ×2 (10:07→21:07)
[2021-07-21] MEDS: FAMOTIDINE 20 MG/2 ML INJ IV SCH ×2 (10:07→21:05)
--- NOTE | 2021-07-21 10:24 | Progress Note ---
Assessment and Plan Assessment and plan: 55 yo F PMHx HTN, DM2 presents with severe COVID pneumonia. Acute hypoxic respiratory failure Severe COVID-19 pneumonia. Covid PCR positive on 07/19/2021. Severe sepsis/septic shock. Patient meets criteria given the tachycardia, tachypnea and diagnosis of pneumonia. Patient also hypotensive requiring pressors Bilateral pulmonary emboli. CTA reveals multiple segmental bilateral pulmonary emboli Acute kidney injury. Etiology secondary to sepsis/ATN. Diabetes mellitus type 2 Obesity. Moderate protein calorie malnutrition Hospital course: 07/18 admit to hospital via ER; being held in ER for ICU bed 07/19 remains in ER intubated and mechanically ventilated; covid pos 07-20 came to ICU overnight from ER; no bradycardic 07/21/2021. Patient remains orally intubated on mechanical ventilation AC mode rate of 26, tidal volume 420, FiO2 90% and PEEP of 16. Continue empiric antibiotics of ceftriaxone and azithromycin for 5 days total. Complete 5 days of remdesivir and continue IV steroids. Patient received Actemra 07/20/2021. Continue therapeutic anticoagulation with Lovenox 100 mg subcu twice daily. Continue sedation of fentanyl and Versed as tolerated. Continue pressors to angelita ntain MAP > 65. Follow-up echocardiogram. The high probability of a clinically significant, sudden or life threatening deterioration of the [cardiac, respiratory and immunologic] system(s) required my full and direct attention, intervention and personal management. The aggregate critical care time was [32] minutes. This time is in addition to time spent performing reported procedures but includes the following: [] Data Review and interpretation [] Patient assessment and monitoring of vital signs [] Documentation [] Medication orders and management History Interval history: No new issues overnight. Hospitalist Physical - Constitutional Vitals: Temp Pulse Resp BP Pulse Ox 97.7 F 67 16 135/81 98 07/21/21 07:17 07/21/21 08:20 07/21/21 08:20 07/21/21 08:20 07/21/21 08:20 General appearance: Present: no acute distress, well-nourished - EENT Eyes: Present: PERRL, EOM intact ENT: hearing intact, clear oral mucosa, dentition normal - Neck Neck: Present: supple, normal ROM - Respiratory Respiratory effort: normal Respiratory: bilateral: CTA - Cardiovascular Rhythm: regular Heart Sounds: Present: S1 & S2. Absent: gallop, rub - Extremities Extremities: no ischemia, No edema, Full ROM - Abdominal General gastrointestinal: soft, non-tender, non-distended, normal bowel sounds - Integumentary Integumentary: Present: clear, warm, dry - Neurologic Neurologic: CNII-XII intact, moves all extremities HEART Score - HEART Score Troponin: Troponin T 0.106 ng/mL (0.00-0.029) H* 07/18/21 16:00 Results - Labs CBC & Chem 7: 07/20/21 04:44 07/21/21 04:52 Labs: Laboratory Last Values WBC 9.1 K/mm3 (4.5-11.0) 07/20/21 04:44 RBC 3.42 M/mm3 (3.65-5.03) L 07/20/21 04:44 Hgb 9.7 gm/dl (10.1-14.3) L 07/20/21 04:44 Hct 29.3 % (30.3-42.9) L 07/20/21 04:44 MCV 86 fl (79-97) 07/20/21 04:44 MCH 28 pg (28-32) 07/20/21 04:44 MCHC 33 % (30-34) 07/20/21 04:44 RDW 16.1 % (13.2-15.2) H 07/20/21 04:44 Plt Count 214 K/mm3 (140-440) 07/20/21 04:44 Lymph % (Auto) 10.7 % (13.4-35.0) L 07/19/21 04:59 [place] % (Auto) 4.8 % (0.0-7.3) 07/19/21 04:59 Eos % (Auto) 0.1 % (0.0-4.3) 07/19/21 04:59 Baso % (Auto) 0.1 % (0.0-1.8) 07/19/21 04:59 Lymph # (Auto) 1.1 K/mm3 (1.2-5.4) L 07/19/21 04:59 [place] # (Auto) 0.5 K/mm3 (0.0-0.8) 07/19/21 04:59 Eos # (Auto) 0.0 K/mm3 (0.0-0.4) 07/19/21 04:59 Baso # (Auto) 0.0 K/mm3 (0.0-0.1) 07/19/21 04:59 Seg Neutrophils % 84.3 % (40.0-70.0) H 07/19/21 04:59 Seg Neutrophils # 8.7 K/mm3 (1.8-7.7) H 07/19/21 04:59 PT 15.1 Sec. (12.2-14.9) H 07/18/21 16:00 INR 1.13 (0.87-1.13) 07/18/21 16:00 APTT 31.9 Sec. (24.2-36.6) 07/18/21 16:00 D-Dimer > 66864 ng/mlDDU (0-234) H 07/18/21 16:00 ABG pH 7.377 (7.320-7.450) 07/21/21 04:30 POC ABG pCO2 31.7 mmHg (32.0-48.0) L 07/21/21 04:30 ABG pCO2 35.2 mm Hg 07/19/21 Unknown POC ABG pO2 77.6 mmHg (83-108) L 07/21/21 04:30 ABG pO2 64.2 mm Hg (80.0-90.0) L 07/19/21 Unknown POC ABG HCO3 18.2 07/21/21 04:30 ABG HCO3 20.1 mmol/L (20.0-26.0) 07/19/21 Unknown ABG O2 Saturation 94.5 (0-100) 07/21/21 04:30 ABG O2 Content 14.3 (0.0-44) 07/19/21 Unknown POC ABG Base Excess -6.1 07/21/21 04:30 ABG Base Excess -4.5 mmol/L (-2.0-3.0) L 07/19/21 Unknown ABG Hemoglobin 10.2 (12.0-17.5) L 07/21/21 04:30 ABG Oxyhemoglobin 94.2 (94-98) 07/21/21 04:30 ABG Carboxyhemoglobin 0.8 % (0.0-5.0) 07/19/21 Unknown ABG Methemoglobin 0.1 (0.0-1.5) 07/21/21 04:30 ABG Sodium 148.3 mmol/L (136.0-145.0) H 07/21/21 04:30 ABG Potassium 3.7 mmol/L (3.40-4.50) 07/21/21 04:30 ABG Chloride 120.0 mmol/L (98-107) H 07/21/21 04:30 ABG Glucose 168 mg/dL (65-95) H 07/21/21 04:30 Oxyhemoglobin 91.9 % (95.0-99.0) L 07/19/21 Unknown Carboxyhemoglobin 0.2 (0.5-1.5) L 07/21/21 04:30 FiO2 100 % 07/19/21 Unknown FiO2 % 90.0 07/21/21 04:30 Sodium 150 mmol/L (137-145) H 07/21/21 04:52 Potassium 4.6 mmol/L (3.6-5.0) 07/21/21 04:52 Chloride 115.7 mmol/L (98-107) H 07/21/21 04:52 Carbon Dioxide 22 mmol/L (22-30) 07/21/21 04:52 Anion Gap 17 mmol/L 07/21/21 04:52 BUN 49 mg/dL (7-17) H 07/21/21 04:52 Creatinine 1.4 mg/dL (0.6-1.2) H 07/21/21 04:52 Estimated GFR 47 ml/min 07/21/21 04:52 BUN/Creatinine Ratio 35 % 07/21/21 04:52 Glucose 185 mg/dL (65-100) H 07/21/21 04:52 POC Glucose 170 mg/dL (70-105) H 07/21/21 05:21 Lactic Acid 1.40 mmol/L (0.7-2.0) 07/18/21 16:00 Calcium 8.3 mg/dL (8.4-10.2) L 07/21/21 04:52 Phosphorus 3.70 mg/dL (2.5-4.5) 07/20/21 04:44 Magnesium 3.10 mg/dL (1.7-2.3) H 07/20/21 04:44 Ferritin 657.0 ng/mL (10.0-200.0) H 07/18/21 16:00 Total Bilirubin < 0.20 mg/dL (0.1-1.2) 07/21/21 04:52 AST 22 units/L (5-40) 07/21/21 04:52 ALT 15 units/L (7-56) 07/21/21 04:52 Alkaline Phosphatase 75 units/L (35-129) 07/21/21 04:52 Ammonia 37.0 umol/L (25-60) 07/18/21 16:00 Lactate Dehydrogenase 705 units/L (91-180) H 07/18/21 16:00 Total Creatine Kinase 157 units/L (30-135) H 07/18/21 16:00 Troponin T 0.106 ng/mL (0.00-0.029) H* 07/18/21 16:00 C-Reactive Protein 33.00 mg/dL (0.00-1.30) H 07/18/21 16:00 Total Protein 6.6 g/dL (6.3-8.2) 07/21/21 04:52 Albumin 3.0 g/dL (3.9-5) L 07/21/21 04:52 Albumin/Globulin Ratio 0.8 % 07/21/21 04:52 Triglycerides 156 mg/dL (2-149) H 07/18/21 16:00 Cholesterol 127 mg/dL (50-199) 07/18/21 16:00 LDL Cholesterol Direct 64 mg/dL (50-130) 07/18/21 16:00 HDL Cholesterol 33 mg/dL (40-59) L 07/18/21 16:00 Cholesterol/HDL Ratio 3.84 % 07/18/21 16:00 Procalcitonin 1.28 ng/mL (<0.15) 07/18/21 16:00 TSH 0.469 mlU/mL (0.270-4.200) 07/21/21 04:52 Free T4 1.05 ng/dL (0.76-1.46) 07/21/21 04:52 Arterial Blood Glucose 168 mg/dL (65-95) H 07/21/21 04:30 Arterial Blood Ionized Calcium 4.4 mg/dL (4.6-5.3) L 07/21/21 04:30 Urine Color Yellow (Yellow) 07/18/21 Unknown Urine Turbidity Slightly-cloudy (Clear) 07/18/21 Unknown Urine pH 5.0 (5.0-7.0) 07/18/21 Unknown Ur Specific [place] 1.020 (1.003-1.030) 07/18/21 Unknown Urine Protein >500 mg/dL (Negative) 07/18/21 Unknown Urine Glucose (UA) Neg mg/dL (Negative) 07/18/21 Unknown Urine Ketones 20 mg/dL (Negative) 07/18/21 Unknown Urine Blood Neg (Negative) 07/18/21 Unknown Urine Nitrite Neg (Negative) 07/18/21 Unknown Urine Bilirubin Neg (Negative) 07/18/21 Unknown Urine Urobilinogen < 2.0 mg/dL (<2.0) 07/18/21 Unknown Ur Leukocyte Esterase Neg (Negative) 07/18/21 Unknown Urine WBC (Auto) 9.0 /HPF (0.0-6.0) H 07/18/21 Unknown Urine RBC (Auto) 2.0 /HPF (0.0-6.0) 07/18/21 Unknown U Epithel Cells (Auto) 1.0 /HPF (0-13.0) 07/18/21 Unknown Urine Bacteria (Auto) 1+ /HPF (Negative) 07/18/21 Unknown Amorphous Crystals Few 07/18/21 Unknown Urine Mucus Few /HPF 07/18/21 Unknown Salicylates < 0.3 mg/dL (2.8-20.0) L 07/18/21 16:00 Urine Opiates Screen Negative 07/18/21 Unknown Urine Methadone Screen Negative 07/18/21 Unknown Acetaminophen 5.7 ug/mL (10.0-30.0) L 07/18/21 16:00 Ur Barbiturates Screen Negative 07/18/21 Unknown Ur Phencyclidine Scrn Negative 07/18/21 Unknown Ur Amphetamines Screen Negative 07/18/21 Unknown U Benzodiazepines Scrn Negative 07/18/21 Unknown Urine Cocaine Screen Negative 07/18/21 Unknown U Marijuana (THC) Screen Negative 07/18/21 Unknown Drugs of Abuse Note Disclamer 07/18/21 Unknown Plasma/Serum Alcohol < 0.01 % (0-0.07) 07/18/21 16:00 Coronavirus (PCR) Positive (Negative) A 07/19/21 Unknown Blood Type O POSITIVE 07/18/21 16:05 Antibody Screen Negative 07/18/21 16:05 Microbiology: Microbiology 07/18/21 16:00 Peripheral/Venous Blood Culture - Preliminary NO GROWTH AFTER 48 HOURS 07/18/21 16:00 Peripheral/Venous Blood Culture - Preliminary NO GROWTH AFTER 48 HOURS 07/18/21 Unknown Urine,Catheterized - Straight Catheter Urine Culture - Preliminary NO GROWTH AFTER 24 HOURS 07/18/21 Unknown Sputum - Endotracheal Wash Sputum Culture - Final Guzman/IV: Voiding Method Indwelling Catheter Active Medications - Current Medications Current Medications: Generic Name Dose Route Start Last Admin Trade Name Freq PRN Reason Stop Dose Admin Acetaminophen 650 mg 07/18/21 22:49 Acetaminophen 325 Mg Tab PO Q4H PRN Pain MILD(1-3)/Fever >100.5/URENA Lipase/Protease/Amylase 1 each 07/18/21 22:56 Lipase 10,500/Protease 25,000/Amylase 43,750 (Units) Dr Cap FEEDTUBE PRN PRN For Clogged Feeding Tube Enoxaparin Sodium 100 mg 07/19/21 10:00 07/21/21 10:07 Enoxaparin 100 Mg/1 Ml Inj SUB-Q 100 mg Q12HR NICOLE Administration Protocol Famotidine 20 mg 07/18/21 22:00 07/21/21 10:07 Famotidine 20 Mg/2 Ml Inj IV 20 mg BID NICOLE Administration Fentanyl 50 mcg 07/18/21 14:41 Fentanyl 100 Mcg/2 Ml Inj IV Q10MIN PRN ANALGESIA Hydrophilic Ointment 1 applic 07/18/21 14:41 Lip Therapy Vaseline TP Q2HR PRN Dry Lips Fentanyl Citrate 2,000 mcg in 100 mls @ 4.915 mls/hr 07/18/21 16:00 07/21/21 00:06 Fentanyl Drip Premix IV 1 mcg/kg/hr TITR NICOLE 4.915 mls/hr Administration Protocol 1 MCG/KG/HR Midazolam HCl 100 mg/ Sodium 100 mls @ 2 mls/hr 07/18/21 19:00 07/21/21 00:08 Chloride IV 3 mg/hr TITR NICOLE 3 mls/hr Titration Protocol 2 MG/HR Azithromycin 500 mg in 250 mls @ 250 mls/hr 07/19/21 20:00 07/20/21 21:58 Zithromax/Ns IV 07/23/21 20:59 Infused Q24H NICOLE Infusion Ceftriaxone Sodium 2 gm in 100 mls @ 200 mls/hr 07/19/21 20:00 07/20/21 21:30 Rocephin/Ns 2 Gm/100 Ml IV 07/23/21 20:29 Infused Q24H NICOLE Infusion Protocol REMDESIVIR 100 mg/ Sodium 250 mls @ 500 mls/hr 07/20/21 21:00 07/20/21 22:15 Chloride IV 07/23/21 21:29 Infused Q24HR@2100 NICOLE Infusion Dopamine HCl/Dextrose 800 mg in 250 mls @ 3.686 mls/hr 07/20/21 14:00 07/20/21 21:02 Intropin Drip 800 Mg/D5w 250 Ml IV 0 mcg/kg/min TITR NICOLE 0 mls/hr Titration Protocol 2 MCG/KG/MIN Insulin Human Lispro 0 unit 07/19/21 18:00 07/21/21 06:23 Insulin Lispro 100 Unit/Ml SUB-Q 2 unit Q6H NICOLE Administration Protocol Methylprednisolone Sodium Succinate 60 mg 07/18/21 23:00 07/21/21 06:22 Methylprednisolone Sod Succinate 125 Mg/2 Ml Inj IV 60 mg Q8HR NICOLE Administration Midazolam HCl 2 mg 07/18/21 18:11 Midazolam 2 Mg/2 Ml Inj IV Q10MIN PRN Sedation Multi-Ingred Cream/Lotion/Oil/Oint 1 applic 07/18/21 14:41 Mineral Oil/Petrolatum, White Ophth Oint 3.5 Gm OU Q4HR PRN Dry Eye(s) Ondansetron HCl 4 mg 07/18/21 22:49 Ondansetron 4 Mg/2 Ml Inj IV Q8H PRN Nausea And Vomiting Senna/Docusate Sodium 1 tab 07/18/21 22:00 07/21/21 10:07 Sennosides/Docusate Sodium 8.6/50 Mg Tab FEEDTUBE 1 tab BID NICOLE Administration Simple Syrup 15 ml 07/18/21 22:56 Simple Syrup 15 Ml FEEDTUBE PRN PRN Hypoglycemia Simple Syrup 30 ml 07/18/21 22:56 Simple Syrup 15 Ml FEEDTUBE PRN PRN Hypoglycemia Sodium Bicarbonate 325 mg 07/18/21 22:56 Sodium Bicarbonate 325 Mg Tab FEEDTUBE PRN PRN For Clogged Feeding Tube Sodium Chloride 10 ml 07/19/21 10:00 07/21/21 10:09 Sodium Chloride 0.9% 10 Ml Flush Syringe IV 10 ml BID NICOLE Administration Sodium Chloride 10 ml 07/18/21 22:49 Sodium Chloride 0.9% 10 Ml Flush Syringe IV PRN PRN LINE FLUSH Sodium Chloride 50 ml 07/19/21 17:00 07/20/21 21:44 Sodium Chloride 0.9% 50 Ml Ivpb IV 07/22/21 21:01 50 ml Q24HR@2100 NICOLE Administration Sodium Chloride 5 ml 07/20/21 14:38 Sodium Chloride 0.9% 1000 Ml Iv Soln IV PRN PRN ART-LINE Nutrition/Malnutrition Assess - Dietary Evaluation Nutrition/Malnutrition Findings: Nutrition Notes Start: 07/19/21 09:15 Freq: Status: Active Protocol: Document 07/19/21 09:15 (Rec: 07/19/21 09:39 [id number]) Nutrition Notes Need for Assessment generated from: MD Order Initial or Follow up Assessment Current Diagnosis Acute Kidney Injury,Diabetes, Hypertension,Respiratory Failure Other Pertinent Diagnosis COVID PUI Current Diet TF Labs/Tests BUN 28 Cr 1.8 BG 145 Pertinent Medications NS at 75 ml/hr Solu Medrol Height 5 ft 6 in Weight 98.3 kg [place] Body Weight (kg) 59.09 BMI 34.9 Weight Status Obese Subjective/Other Information MD order to eval intakes and TF. Pt on vent. Burn Absent Trauma Absent Minimum of two criteria No #1 Nutrition Diagnosis Inadequate oral intake Etiology respiratory failure As Evidenced by Signs and Symptoms pt on vent and unable to consume PO Is patient on ventilator? Yes Is Patient Ambulatory and/or Out of Bed No REE-([facility]-confined to bed) 1923.708 Kcal/Kg value to use for calculation 14 Approximate Energy Requirements Using 1376 kcal/Kg Calculation Used for Recommendations Kcal/kg Additional Notes Protein: (>2g/kg IBW) >118g Fluid: 1 ml/kcal or per MD Nutrition Intervention Change Diet Order: Start TF Nutrition Support: Vital HP at 55 ml/hr Flush 50 ml q4h Kcal 1,320 Protein (gm) 116 Fluid (mL) 1,104 Goal #1 Meet at least 75% of protein and kcal needs via TF Anticipated Discharge Needs: Unable to determine at this time Follow-Up By: 07/21/21 Additional Comments F/u: TF start and tolerance
[2021-07-21] MEDS: MIDAZOLAM 2 MG/2 ML INJ IV PRN (13:10)
--- NOTE | 2021-07-21 13:33 | Progress Note ---
Assessment and Plan 55 y/o obese female with acute respiratory failure, pulmonary embolism, now with renal failure, most likely all secondary to COVID 19 07/21/21: Dropped FiO2 to 80%. Continue to wean for sats >88%. Keep peep elevated until FiO2 around 50-55%. Continue remdesivir and adequate levels of sedation. Continue high dose steroids. No proning for now. Continue therapeutic lovenox. Prognosis remains guarded. 07/20/21: COVID positive. Started Remdesivir. Renal function improved. COntinue high dose steroids at current dosing for now. Suggest repeat ABG later this afternoon if able, may need art line but BP stable for now. No proning. Agree with therapeutic Lovenox. Guarded prognosis. 1. Follow up COVID testing, continue isolation 2. Agree with high dose IV steroids, if positive, will change to solumedrol [id number] 3. If positive then would need remdesivir and Actemra, hopefully still a candidate given bump in renal function 4. Unable to prone patient at moment, but did increase PEEP to 20 and ordered repeat ABG at 1400 5 Very very guarded prognosis CCT 31 minutes. Subjective Date of service: 07/21/21 Interval history: No acute events overnight. Art line placed yesterday by CINDY. PaO2 better this am on 90%. PEEP the same. Dropped to 80%. Objective Vital Signs - 12hr 07/21/21 07/21/21 07/21/21 01:40 01:50 02:00 Temperature Pulse Rate 48 L 49 L 49 L Respiratory 9 L 10 L 10 L Rate Blood Pressure 125/72 131/75 128/70 O2 Sat by Pulse 96 96 94 Oximetry 07/21/21 07/21/21 07/21/21 02:10 02:20 02:30 Temperature Pulse Rate 48 L 47 L 48 L Respiratory 11 L 9 L 9 L Rate Blood Pressure 128/70 139/75 129/75 O2 Sat by Pulse 96 97 95 Oximetry 07/21/21 07/21/21 07/21/21 02:40 02:50 03:00 Temperature Pulse Rate 48 L 48 L 48 L Respiratory 10 L 11 L 10 L Rate Blood Pressure 129/75 129/73 130/73 O2 Sat by Pulse 96 96 94 Oximetry 07/21/21 07/21/21 07/21/21 03:10 03:20 03:30 Temperature Pulse Rate 59 L 52 L 62 Respiratory 14 24 11 L Rate Blood Pressure 130/73 139/75 136/82 O2 Sat by Pulse 96 97 94 Oximetry 07/21/21 07/21/21 07/21/21 03:35 03:40 03:50 Temperature Pulse Rate 73 55 L 52 L Respiratory 21 17 Rate Blood Pressure 147/75 136/82 131/75 O2 Sat by Pulse 95 95 94 Oximetry 07/21/21 07/21/21 07/21/21 04:00 04:10 04:20 Temperature 96.2 F L Pulse Rate 48 L 50 L 70 Respiratory 12 15 23 Rate Blood Pressure 134/72 134/72 158/97 O2 Sat by Pulse 89 93 96 Oximetry 07/21/21 07/21/21 07/21/21 04:30 04:40 04:50 Temperature Pulse Rate 56 L 54 L 56 L Respiratory 28 H 17 16 Rate Blood Pressure 142/85 142/85 140/82 O2 Sat by Pulse 86 92 94 Oximetry 07/21/21 07/21/21 07/21/21 05:00 05:10 05:20 Temperature Pulse Rate 49 L 49 L 54 L Respiratory 14 19 19 Rate Blood Pressure 127/72 127/72 134/73 O2 Sat by Pulse 89 93 94 Oximetry 07/21/21 07/21/21 07/21/21 05:30 05:40 05:50 Temperature Pulse Rate 50 L 49 L 49 L Respiratory 16 11 L 18 Rate Blood Pressure 135/72 135/72 137/74 O2 Sat by Pulse 90 94 94 Oximetry 07/21/21 07/21/21 07/21/21 06:00 06:10 06:20 Temperature Pulse Rate 49 L 100 H 58 L Respiratory 18 26 H 17 Rate Blood Pressure 136/75 136/75 135/84 O2 Sat by Pulse 93 97 92 Oximetry 07/21/21 07/21/21 07/21/21 06:25 06:30 06:40 Temperature Pulse Rate 85 54 L 50 L Respiratory 15 26 H Rate Blood Pressure 142/82 129/99 129/99 O2 Sat by Pulse 93 95 Oximetry 07/21/21 07/21/21 07/21/21 06:50 07:00 07:10 Temperature Pulse Rate 50 L 49 L 49 L Respiratory 25 H 22 26 H Rate Blood Pressure 132/69 130/70 129/99 O2 Sat by Pulse 96 94 97 Oximetry 07/21/21 07/21/21 07/21/21 07:17 07:20 07:30 Temperature 97.7 F Pulse Rate 49 L 50 L Respiratory 27 H 29 H Rate Blood Pressure 129/70 138/80 O2 Sat by Pulse 98 96 Oximetry 07/21/21 07/21/21 07/21/21 07:40 07:50 08:00 Temperature Pulse Rate 49 L 50 L 48 L Respiratory 28 H 28 H 27 H Rate Blood Pressure 138/80 130/71 141/71 O2 Sat by Pulse 97 96 93 Oximetry 07/21/21 07/21/21 07/21/21 08:10 08:16 08:20 Temperature Pulse Rate 50 L 50 L 67 Respiratory 27 H 16 Rate Blood Pressure 130/71 135/81 135/81 O2 Sat by Pulse 97 96 98 Oximetry 07/21/21 07/21/21 07/21/21 08:30 08:40 08:50 Temperature Pulse Rate 49 L 49 L 49 L Respiratory 26 H 26 H 27 H Rate Blood Pressure 130/85 135/81 139/72 O2 Sat by Pulse 93 97 97 Oximetry 07/21/21 07/21/21 07/21/21 09:00 09:10 09:20 Temperature Pulse Rate 48 L 48 L 49 L Respiratory 26 H 27 H 26 H Rate Blood Pressure 145/74 139/72 134/73 O2 Sat by Pulse 94 97 97 Oximetry 07/21/21 07/21/21 07/21/21 09:30 09:40 09:50 Temperature Pulse Rate 62 53 L 51 L Respiratory 21 15 26 H Rate Blood Pressure 134/73 145/82 146/80 O2 Sat by Pulse 97 96 96 Oximetry 07/21/21 07/21/21 07/21/21 10:00 10:10 10:20 Temperature Pulse Rate 49 L 51 L 50 L Respiratory 18 26 H 26 H Rate Blood Pressure 146/74 146/80 144/76 O2 Sat by Pulse 93 97 98 Oximetry 07/21/21 07/21/21 07/21/21 10:30 10:40 10:50 Temperature Pulse Rate 51 L 49 L 49 L Respiratory 26 H 19 22 Rate Blood Pressure 133/73 144/76 141/72 O2 Sat by Pulse 96 97 97 Oximetry 07/21/21 07/21/21 07/21/21 11:00 11:10 11:20 Temperature Pulse Rate 51 L 51 L 61 Respiratory 17 16 14 Rate Blood Pressure 150/75 150/75 134/69 O2 Sat by Pulse 93 97 98 Oximetry 07/21/21 07/21/21 07/21/21 11:25 11:29 11:30 Temperature 98.1 F Pulse Rate 56 L 54 L Respiratory 21 Rate Blood Pressure 134/69 140/77 O2 Sat by Pulse 97 94 Oximetry 07/21/21 07/21/21 07/21/21 11:40 11:50 12:00 Temperature Pulse Rate 52 L 52 L 51 L Respiratory 26 H 18 19 Rate Blood Pressure 140/77 161/71 139/68 O2 Sat by Pulse 97 96 96 Oximetry 07/21/21 07/21/21 07/21/21 12:10 12:20 13:20 Temperature Pulse Rate 49 L 49 L 47 L Respiratory 22 27 H Rate Blood Pressure 139/68 142/71 141/72 O2 Sat by Pulse 97 97 96 Oximetry Constitutional: comatose ENT: other (orally intubated and sedated) CBC and BMP: 07/20/21 04:44 07/21/21 04:52 ABG, PT/INR, D-dimer: ABG ABG pH 7.377 (7.320-7.450) 07/21/21 04:30 POC ABG pCO2 31.7 mmHg (32.0-48.0) L 07/21/21 04:30 ABG pCO2 35.2 mm Hg 07/19/21 Unknown POC ABG pO2 77.6 mmHg (83-108) L 07/21/21 04:30 ABG pO2 64.2 mm Hg (80.0-90.0) L 07/19/21 Unknown POC ABG HCO3 18.2 07/21/21 04:30 ABG O2 Saturation 94.5 (0-100) 07/21/21 04:30 PT/INR, D-dimer PT 15.1 Sec. (12.2-14.9) H 07/18/21 16:00 INR 1.13 (0.87-1.13) 07/18/21 16:00 D-Dimer > 64780 ng/mlDDU (0-234) H 07/18/21 16:00 Abnormal lab findings: Abnormal Labs 07/18/21 07/18/21 07/18/21 16:00 16:00 16:00 RBC Hgb Hct RDW 15.3 H Lymph % (Auto) 7.9 L Lymph # (Auto) 0.8 L Seg Neutrophils % 86.3 H Seg Neutrophils # 9.0 H PT 15.1 H D-Dimer > 91711 H ABG pH POC ABG pCO2 POC ABG pO2 ABG pO2 ABG O2 Saturation ABG Base Excess ABG Hemoglobin ABG Oxyhemoglobin ABG Sodium ABG Chloride ABG Glucose Oxyhemoglobin Carboxyhemoglobin Sodium Potassium 3.5 L Chloride Carbon Dioxide 20 L BUN 19 H Creatinine Glucose 140 H POC Glucose Calcium Magnesium Ferritin AST 43 H Lactate Dehydrogenase 705 H Total Creatine Kinase 157 H Troponin T 0.106 H* C-Reactive Protein 33.00 H Total Protein Albumin 3.2 L Triglycerides 156 H HDL Cholesterol 33 L Arterial Blood Glucose Arterial Blood Ionized Calcium Urine WBC (Auto) Salicylates Acetaminophen Coronavirus (PCR) 07/18/21 07/18/21 07/18/21 16:00 16:00 16:00 RBC Hgb Hct RDW Lymph % (Auto) Lymph # (Auto) Seg Neutrophils % Seg Neutrophils # PT D-Dimer ABG pH POC ABG pCO2 POC ABG pO2 ABG pO2 ABG O2 Saturation ABG Base Excess ABG Hemoglobin ABG Oxyhemoglobin ABG Sodium ABG Chloride ABG Glucose Oxyhemoglobin Carboxyhemoglobin Sodium Potassium Chloride Carbon Dioxide BUN Creatinine Glucose POC Glucose Calcium Magnesium Ferritin 657.0 H AST Lactate Dehydrogenase Total Creatine Kinase Troponin T C-Reactive Protein Total Protein Albumin Triglycerides HDL Cholesterol Arterial Blood Glucose Arterial Blood Ionized Calcium Urine WBC (Auto) Salicylates < 0.3 L Acetaminophen 5.7 L Coronavirus (PCR) 07/18/21 07/18/21 07/19/21 Unknown Unknown 04:33 RBC Hgb Hct RDW Lymph % (Auto) Lymph # (Auto) Seg Neutrophils % Seg Neutrophils # PT D-Dimer ABG pH 7.275 L POC ABG pCO2 POC ABG pO2 68.7 L 53.1 L ABG pO2 ABG O2 Saturation ABG Base Excess ABG Hemoglobin ABG Oxyhemoglobin 88.3 L 85.3 L ABG Sodium ABG Chloride 109.0 H ABG Glucose 170 H 150 H Oxyhemoglobin Carboxyhemoglobin 0 L 0.3 L Sodium Potassium Chloride Carbon Dioxide BUN Creatinine Glucose POC Glucose Calcium Magnesium Ferritin AST Lactate Dehydrogenase Total Creatine Kinase Troponin T C-Reactive Protein Total Protein Albumin Triglycerides HDL Cholesterol Arterial Blood Glucose 170 H 150 H Arterial Blood Ionized Calcium Urine WBC (Auto) 9.0 H Salicylates Acetaminophen Coronavirus (PCR) 07/19/21 07/19/21 07/19/21 04:59 04:59 Unknown RBC Hgb Hct RDW 16.0 H Lymph % (Auto) 10.7 L Lymph # (Auto) 1.1 L Seg Neutrophils % 84.3 H Seg Neutrophils # 8.7 H PT D-Dimer ABG pH POC ABG pCO2 POC ABG pO2 ABG pO2 ABG O2 Saturation ABG Base Excess ABG Hemoglobin ABG Oxyhemoglobin ABG Sodium ABG Chloride ABG Glucose Oxyhemoglobin Carboxyhemoglobin Sodium Potassium Chloride 108.8 H Carbon Dioxide 21 L BUN 28 H Creatinine 1.8 H Glucose 145 H POC Glucose Calcium 7.8 L Magnesium Ferritin AST Lactate Dehydrogenase Total Creatine Kinase Troponin T C-Reactive Protein Total Protein 6.2 L Albumin 3.2 L Triglycerides HDL Cholesterol Arterial Blood Glucose Arterial Blood Ionized Calcium Urine WBC (Auto) Salicylates Acetaminophen Coronavirus (PCR) Positive A 07/19/21 07/20/21 07/20/21 Unknown 00:14 04:44 RBC Hgb Hct RDW Lymph % (Auto) Lymph # (Auto) Seg Neutrophils % Seg Neutrophils # PT D-Dimer ABG pH POC ABG pCO2 POC ABG pO2 ABG pO2 64.2 L ABG O2 Saturation 93.2 L ABG Base Excess -4.5 L ABG Hemoglobin 11.0 L ABG Oxyhemoglobin ABG Sodium ABG Chloride ABG Glucose Oxyhemoglobin 91.9 L Carboxyhemoglobin Sodium Potassium Chloride 112.2 H Carbon Dioxide BUN 38 H Creatinine 1.3 H Glucose 156 H POC Glucose 164 H Calcium 8.1 L Magnesium 3.10 H Ferritin AST Lactate Dehydrogenase Total Creatine Kinase Troponin T C-Reactive Protein Total Protein Albumin 2.8 L Triglycerides HDL Cholesterol Arterial Blood Glucose Arterial Blood Ionized Calcium Urine WBC (Auto) Salicylates Acetaminophen Coronavirus (PCR) 07/20/21 07/20/21 07/20/21 04:44 05:00 05:40 RBC 3.42 L Hgb 9.7 L Hct 29.3 L RDW 16.1 H Lymph % (Auto) Lymph # (Auto) Seg Neutrophils % Seg Neutrophils # PT D-Dimer ABG pH POC ABG pCO2 POC ABG pO2 139.0 H ABG pO2 ABG O2 Saturation ABG Base Excess ABG Hemoglobin 10.1 L ABG Oxyhemoglobin ABG Sodium ABG Chloride 113.0 H ABG Glucose 155 H Oxyhemoglobin Carboxyhemoglobin 0.3 L Sodium Potassium Chloride Carbon Dioxide BUN Creatinine Glucose POC Glucose 164 H Calcium Magnesium Ferritin AST Lactate Dehydrogenase Total Creatine Kinase Troponin T C-Reactive Protein Total Protein Albumin Triglycerides HDL Cholesterol Arterial Blood Glucose 155 H Arterial Blood Ionized Calcium 4.4 L Urine WBC (Auto) Salicylates Acetaminophen Coronavirus (PCR) 07/20/21 07/20/21 07/21/21 11:40 17:48 03:31 RBC Hgb Hct RDW Lymph % (Auto) Lymph # (Auto) Seg Neutrophils % Seg Neutrophils # PT D-Dimer ABG pH POC ABG pCO2 POC ABG pO2 ABG pO2 ABG O2 Saturation ABG Base Excess ABG Hemoglobin ABG Oxyhemoglobin ABG Sodium ABG Chloride ABG Glucose Oxyhemoglobin Carboxyhemoglobin Sodium Potassium Chloride Carbon Dioxide BUN Creatinine Glucose POC Glucose 137 H 143 H 157 H Calcium Magnesium Ferritin AST Lactate Dehydrogenase Total Creatine Kinase Troponin T C-Reactive Protein Total Protein Albumin Triglycerides HDL Cholesterol Arterial Blood Glucose Arterial Blood Ionized Calcium Urine WBC (Auto) Salicylates Acetaminophen Coronavirus (PCR) 07/21/21 07/21/21 07/21/21 04:30 04:52 05:21 RBC Hgb Hct RDW Lymph % (Auto) Lymph # (Auto) Seg Neutrophils % Seg Neutrophils # PT D-Dimer ABG pH POC ABG pCO2 31.7 L POC ABG pO2 77.6 L ABG pO2 ABG O2 Saturation ABG Base Excess ABG Hemoglobin 10.2 L ABG Oxyhemoglobin ABG Sodium 148.3 H ABG Chloride 120.0 H ABG Glucose 168 H Oxyhemoglobin Carboxyhemoglobin 0.2 L Sodium 150 H Potassium Chloride 115.7 H Carbon Dioxide BUN 49 H Creatinine 1.4 H Glucose 185 H POC Glucose 170 H Calcium 8.3 L Magnesium Ferritin AST Lactate Dehydrogenase Total Creatine Kinase Troponin T C-Reactive Protein Total Protein Albumin 3.0 L Triglycerides HDL Cholesterol Arterial Blood Glucose 168 H Arterial Blood Ionized Calcium 4.4 L Urine WBC (Auto) Salicylates Acetaminophen Coronavirus (PCR) 07/21/21 11:17 RBC Hgb Hct RDW Lymph % (Auto) Lymph # (Auto) Seg Neutrophils % Seg Neutrophils # PT D-Dimer ABG pH POC ABG pCO2 POC ABG pO2 ABG pO2 ABG O2 Saturation ABG Base Excess ABG Hemoglobin ABG Oxyhemoglobin ABG Sodium ABG Chloride ABG Glucose Oxyhemoglobin Carboxyhemoglobin Sodium Potassium Chloride Carbon Dioxide BUN Creatinine Glucose POC Glucose 176 H Calcium Magnesium Ferritin AST Lactate Dehydrogenase Total Creatine Kinase Troponin T C-Reactive Protein Total Protein Albumin Triglycerides HDL Cholesterol Arterial Blood Glucose Arterial Blood Ionized Calcium Urine WBC (Auto) Salicylates Acetaminophen Coronavirus (PCR)
[2021-07-21] MEDS: FREE WATER PO SCH ×3 (15:52→21:06)
[2021-07-21] MEDS: DEXTROSE 5% IN WATER 1,000 ML IV SCH (15:53)
--- NOTE | 2021-07-21 16:50 | Progress Note ---
Assessment and Plan Cultures: Blood culture 07/18/2021 no growth so far Urine culture 07/18/2021 no growth so far A/P: 55 yo F PMHx HTN, DM2 presents with severe COVID pneumonia. #Presumed COVID pneumonia: pending PCR, clinical presentation consistent with d iagnosis. Elevated procalcitonin as well, however in the setting of ION #Acute hypoxic respiratory failure: currently on the vent #Bilateral pulmonary emboli: anticoagulation per hoptal protocol #ION Recs: -Continue empiric ceftriaxone and azithromycin to complete 5 days -Complete 5 days remdesivir -Received Actemra 07/20/2021 -Anticoagulation per hospital protocol -Proning as able -Obtain q48-72h inflammatory markers - ferritin, Ddimer, CRP, LDH Thank you for the consult, we will continue to follow. Jessica Hassan MD [facility] ([facility]) O: [phone] F: [phone] Subjective Date of service: 07/21/21 Interval history: Afebrile, remains on the vent. Cultures all been negative. Objective - Exam Narrative Exam: Physical exam deferred to reduce risk of transmission of COVID-19. Please refer to primary team's note. - Constitutional Vitals: Vital Signs Temp Pulse Resp BP Pulse Ox 98.7 F 49 L 24 140/72 94 07/21/21 16:00 07/21/21 13:30 07/21/21 13:30 07/21/21 13:30 07/21/21 13:30 Temperature -Last 24 Hours Temperature 98.7 F Temperature 98.1 F Temperature 97.7 F Temperature 96.2 F Temperature 98.3 F Temperature 98.1 F - Labs CBC & Chem 7: 07/20/21 04:44 07/21/21 04:52 Labs: Abnormal lab results 07/20/21 07/21/21 07/21/21 Range/Units 17:48 03:31 04:30 POC ABG pCO2 31.7 L (32.0-48.0) mmHg POC ABG pO2 77.6 L (83-108) mmHg ABG Hemoglobin 10.2 L (12.0-17.5) ABG Sodium 148.3 H (136.0-145.0) mmol/L ABG Chloride 120.0 H (98-107) mmol/L ABG Glucose 168 H (65-95) mg/dL Carboxyhemoglobin 0.2 L (0.5-1.5) Sodium (137-145) mmol/L Chloride (98-107) mmol/L BUN (7-17) mg/dL Creatinine (0.6-1.2) mg/dL Glucose (65-100) mg/dL POC Glucose 143 H 157 H (70-105) mg/dL Calcium (8.4-10.2) mg/dL Albumin (3.9-5) g/dL Arterial Blood Glucose 168 H (65-95) mg/dL Arterial Blood Ionized Calcium 4.4 L (4.6-5.3) mg/dL 07/21/21 07/21/21 07/21/21 Range/Units 04:52 05:21 11:17 POC ABG pCO2 (32.0-48.0) mmHg POC ABG pO2 (83-108) mmHg ABG Hemoglobin (12.0-17.5) ABG Sodium (136.0-145.0) mmol/L ABG Chloride (98-107) mmol/L ABG Glucose (65-95) mg/dL Carboxyhemoglobin (0.5-1.5) Sodium 150 H (137-145) mmol/L Chloride 115.7 H (98-107) mmol/L BUN 49 H (7-17) mg/dL Creatinine 1.4 H (0.6-1.2) mg/dL Glucose 185 H (65-100) mg/dL POC Glucose 170 H 176 H (70-105) mg/dL Calcium 8.3 L (8.4-10.2) mg/dL Albumin 3.0 L (3.9-5) g/dL Arterial Blood Glucose (65-95) mg/dL Arterial Blood Ionized Calcium (4.6-5.3) mg/dL
[2021-07-21] MEDS: cefTRIAXone/NS 2 GM/100 ML 2 GM/100 ML BAG IV SCH (20:22)
[2021-07-21] MEDS: AZITHROMYCIN/NS 500 MG/250 ML 500 MG/250 ML BAG IV SCH (20:22)
[2021-07-21] MEDS: MIDAZOLAM 100 MG in SODIUM CHLORIDE 0.9% 80 ML IV SCH (21:04)
[2021-07-21] MEDS: REMDESIVIR 100 MG in SODIUM CHLORIDE 0.9% 250ML 250 ML IV SCH (21:04)
[2021-07-21] MEDS: SODIUM CHLORIDE 0.9% 50 ML IVPB IV SCH (21:06)
[2021-07-22] MEDS: FREE WATER PO SCH ×6 (01:43→21:03)
[2021-07-22 06:19] LABS: Alanine Aminotransferase 29 units/L (7-56); Albumin 2.9 g/dL (3.9-5); BUN/Creatinine Ratio 42; Blood Urea Nitrogen 46 mg/dL (7-17); Calcium 8.4 mg/dL (8.4-10.2); Hemolysis Index 31
[2021-07-22] MEDS: methylPREDNISolone Sod Succinate 125 MG/2 ML INJ IV SCH ×3 (06:44→21:03)
[2021-07-22] MEDS: INSULIN LISPRO 100 UNIT/ML SUB-Q SCH ×3 (06:44→18:39)
[2021-07-22] MEDS: MIDAZOLAM 2 MG/2 ML INJ IV PRN (07:56)
--- NOTE | 2021-07-22 08:54 | Progress Note ---
Assessment and Plan Assessment and plan: 55 yo F PMHx HTN, DM2 presents with severe COVID pneumonia. Acute hypoxic respiratory failure Severe COVID-19 pneumonia. Covid PCR positive on 07/19/2021. Severe sepsis/septic shock. Patient meets criteria given the tachycardia, tachypnea and diagnosis of pneumonia. Patient also hypotensive requiring pressors Bilateral pulmonary emboli. CTA reveals multiple segmental bilateral pulmonary emboli Acute kidney injury. Etiology secondary to sepsis/ATN. Diabetes mellitus type 2 Obesity. Moderate protein calorie malnutrition Hospital course: 07/18 admit to hospital via ER; being held in ER for ICU bed 07/19 remains in ER intubated and mechanically ventilated; covid pos 07-20 came to ICU overnight from ER; no bradycardic 07/21/2021. Patient remains orally intubated on mechanical ventilation AC mode rate of 26, tidal volume 420, FiO2 90% and PEEP of 16. Continue empiric antibiotics of ceftriaxone and azithromycin for 5 days total. Complete 5 days of remdesivir and continue IV steroids. Patient received Actemra 07/20/2021. Continue therapeutic anticoagulation with Lovenox 100 mg subcu twice daily. Continue sedation of fentanyl and Versed as tolerated. Continue pressors to maintain MAP > 65. Follow-up echocardiogram. 07/22/2021. Patient on mechanical ventilation AC mode rate of 26, FiO2 70% and PEEP of 16. Continue to wean FiO2 as tolerated. Continue antibiotics per ID recommendations. Patient currently with ceftriaxone and azithromycin. Complete 5 days of remdesivir. Continue IV steroids. Patient received Actemra on 07/20/2021. Continue prone positioning as able. Continue to trend inflammatory markers. The high probability of a clinically significant, sudden or life threatening deterioration of the [cardiac, respiratory and immunologic] system(s) required my full and direct attention, intervention and personal management. The aggregate critical care time was [32] minutes. This time is in addition to time spent performing reported procedures but includes the following: [x] Data Review and interpretation [x] Patient assessment and monitoring of vital signs [x] Documentation [x] Medication orders and management History Interval history: No new issues overnight. Hospitalist Physical - Constitutional Vitals: Temp Pulse Resp BP Pulse Ox 99.0 F 55 L 24 190/94 95 07/22/21 04:00 07/22/21 07:24 07/22/21 06:40 07/22/21 07:24 07/22/21 07:24 General appearance: Present: no acute distress, well-nourished, other (Patient orally intubated) - EENT Eyes: Present: PERRL, EOM intact ENT: hearing intact, clear oral mucosa, dentition normal - Neck Neck: Present: supple, normal ROM - Respiratory Respiratory effort: normal Respiratory: bilateral: CTA - Cardiovascular Rhythm: regular Heart Sounds: Present: S1 & S2. Absent: gallop, rub - Extremities Extremities: no ischemia, No edema, Full ROM - Abdominal General gastrointestinal: soft, non-tender, non-distended, normal bowel sounds - Integumentary Integumentary: Present: clear, warm, dry - Neurologic Neurologic: CNII-XII intact, moves all extremities HEART Score - HEART Score Troponin: Troponin T 0.106 ng/mL (0.00-0.029) H* 07/18/21 16:00 Results - Labs CBC & Chem 7: 07/20/21 04:44 07/22/21 04:39 Labs: Laboratory Last Values WBC 9.1 K/mm3 (4.5-11.0) 07/20/21 04:44 RBC 3.42 M/mm3 (3.65-5.03) L 07/20/21 04:44 Hgb 9.7 gm/dl (10.1-14.3) L 07/20/21 04:44 Hct 29.3 % (30.3-42.9) L 07/20/21 04:44 MCV 86 fl (79-97) 07/20/21 04:44 MCH 28 pg (28-32) 07/20/21 04:44 MCHC 33 % (30-34) 07/20/21 04:44 RDW 16.1 % (13.2-15.2) H 07/20/21 04:44 Plt Count 214 K/mm3 (140-440) 07/20/21 04:44 Lymph % (Auto) 10.7 % (13.4-35.0) L 07/19/21 04:59 [place] % (Auto) 4.8 % (0.0-7.3) 07/19/21 04:59 Eos % (Auto) 0.1 % (0.0-4.3) 07/19/21 04:59 Baso % (Auto) 0.1 % (0.0-1.8) 07/19/21 04:59 Lymph # (Auto) 1.1 K/mm3 (1.2-5.4) L 07/19/21 04:59 [place] # (Auto) 0.5 K/mm3 (0.0-0.8) 07/19/21 04:59 Eos # (Auto) 0.0 K/mm3 (0.0-0.4) 07/19/21 04:59 Baso # (Auto) 0.0 K/mm3 (0.0-0.1) 07/19/21 04:59 Seg Neutrophils % 84.3 % (40.0-70.0) H 07/19/21 04:59 Seg Neutrophils # 8.7 K/mm3 (1.8-7.7) H 07/19/21 04:59 PT 15.1 Sec. (12.2-14.9) H 07/18/21 16:00 INR 1.13 (0.87-1.13) 07/18/21 16:00 APTT 31.9 Sec. (24.2-36.6) 07/18/21 16:00 D-Dimer > 16444 ng/mlDDU (0-234) H 07/18/21 16:00 ABG pH 7.398 (7.320-7.450) 07/22/21 03:30 POC ABG pCO2 38.4 mmHg (32.0-48.0) 07/22/21 03:30 ABG pCO2 35.2 mm Hg 07/19/21 Unknown POC ABG pO2 67.4 mmHg (83-108) L 07/22/21 03:30 ABG pO2 64.2 mm Hg (80.0-90.0) L 07/19/21 Unknown POC ABG HCO3 23.1 07/22/21 03:30 ABG HCO3 20.1 mmol/L (20.0-26.0) 07/19/21 Unknown ABG O2 Saturation 92.3 (0-100) 07/22/21 03:30 ABG O2 Content 14.3 (0.0-44) 07/19/21 Unknown POC ABG Base Excess -1.5 07/22/21 03:30 ABG Base Excess -4.5 mmol/L (-2.0-3.0) L 07/19/21 Unknown ABG Hemoglobin 10.4 (12.0-17.5) L 07/22/21 03:30 ABG Oxyhemoglobin 91.8 (94-98) L 07/22/21 03:30 ABG Carboxyhemoglobin 0.8 % (0.0-5.0) 07/19/21 Unknown ABG Methemoglobin 0.3 (0.0-1.5) 07/22/21 03:30 ABG Sodium 118.4 mmol/L (136.0-145.0) L 07/22/21 03:30 ABG Potassium 4.5 mmol/L (3.40-4.50) 07/22/21 03:30 ABG Chloride 114.0 mmol/L (98-107) H 07/22/21 03:30 ABG Glucose 189 mg/dL (65-95) H 07/22/21 03:30 Oxyhemoglobin 91.9 % (95.0-99.0) L 07/19/21 Unknown Carboxyhemoglobin 0.2 (0.5-1.5) L 07/22/21 03:30 FiO2 100 % 07/19/21 Unknown FiO2 % 70.0 07/22/21 03:30 Sodium 146 mmol/L (137-145) H 07/22/21 04:39 Potassium 4.9 mmol/L (3.6-5.0) 07/22/21 04:39 Chloride 112.8 mmol/L (98-107) H 07/22/21 04:39 Carbon Dioxide 21 mmol/L (22-30) L 07/22/21 04:39 Anion Gap 17 mmol/L 07/22/21 04:39 BUN 46 mg/dL (7-17) H 07/22/21 04:39 Creatinine 1.1 mg/dL (0.6-1.2) 07/22/21 04:39 Estimated GFR > 60 ml/min 07/22/21 04:39 BUN/Creatinine Ratio 42 % 07/22/21 04:39 Glucose 191 mg/dL (65-100) H 07/22/21 04:39 POC Glucose 191 mg/dL (70-105) H 07/22/21 05:29 Lactic Acid 1.40 mmol/L (0.7-2.0) 07/18/21 16:00 Calcium 8.4 mg/dL (8.4-10.2) 07/22/21 04:39 Phosphorus 3.70 mg/dL (2.5-4.5) 07/20/21 04:44 Magnesium 3.10 mg/dL (1.7-2.3) H 07/20/21 04:44 Ferritin 657.0 ng/mL (10.0-200.0) H 07/18/21 16:00 Total Bilirubin 0.20 mg/dL (0.1-1.2) 07/22/21 04:39 AST 38 units/L (5-40) 07/22/21 04:39 ALT 29 units/L (7-56) 07/22/21 04:39 Alkaline Phosphatase 83 units/L (35-129) 07/22/21 04:39 Ammonia 37.0 umol/L (25-60) 07/18/21 16:00 Lactate Dehydrogenase 705 units/L (91-180) H 07/18/21 16:00 Total Creatine Kinase 157 units/L (30-135) H 07/18/21 16:00 Troponin T 0.106 ng/mL (0.00-0.029) H* 07/18/21 16:00 C-Reactive Protein 33.00 mg/dL (0.00-1.30) H 07/18/21 16:00 Total Protein 6.4 g/dL (6.3-8.2) 07/22/21 04:39 Albumin 2.9 g/dL (3.9-5) L 07/22/21 04:39 Albumin/Globulin Ratio 0.8 % 07/22/21 04:39 Triglycerides 156 mg/dL (2-149) H 07/18/21 16:00 Cholesterol 127 mg/dL (50-199) 07/18/21 16:00 LDL Cholesterol Direct 64 mg/dL (50-130) 07/18/21 16:00 HDL Cholesterol 33 mg/dL (40-59) L 07/18/21 16:00 Cholesterol/HDL Ratio 3.84 % 07/18/21 16:00 Procalcitonin 1.28 ng/mL (<0.15) 07/18/21 16:00 TSH 0.469 mlU/mL (0.270-4.200) 07/21/21 04:52 Free T4 1.05 ng/dL (0.76-1.46) 07/21/21 04:52 Arterial Blood Glucose 189 mg/dL (65-95) H 07/22/21 03:30 Arterial Blood Ionized Calcium 4.5 mg/dL (4.6-5.3) L 07/22/21 03:30 Urine Color Yellow (Yellow) 07/18/21 Unknown Urine Turbidity Slightly-cloudy (Clear) 07/18/21 Unknown Urine pH 5.0 (5.0-7.0) 07/18/21 Unknown Ur Specific [place] 1.020 (1.003-1.030) 07/18/21 Unknown Urine Protein >500 mg/dL (Negative) 07/18/21 Unknown Urine Glucose (UA) Neg mg/dL (Negative) 07/18/21 Unknown Urine Ketones 20 mg/dL (Negative) 07/18/21 Unknown Urine Blood Neg (Negative) 07/18/21 Unknown Urine Nitrite Neg (Negative) 07/18/21 Unknown Urine Bilirubin Neg (Negative) 07/18/21 Unknown Urine Urobilinogen < 2.0 mg/dL (<2.0) 07/18/21 Unknown Ur Leukocyte Esterase Neg (Negative) 07/18/21 Unknown Urine WBC (Auto) 9.0 /HPF (0.0-6.0) H 07/18/21 Unknown Urine RBC (Auto) 2.0 /HPF (0.0-6.0) 07/18/21 Unknown U Epithel Cells (Auto) 1.0 /HPF (0-13.0) 07/18/21 Unknown Urine Bacteria (Auto) 1+ /HPF (Negative) 07/18/21 Unknown Amorphous Crystals Few 07/18/21 Unknown Urine Mucus Few /HPF 07/18/21 Unknown Salicylates < 0.3 mg/dL (2.8-20.0) L 07/18/21 16:00 Urine Opiates Screen Negative 07/18/21 Unknown Urine Methadone Screen Negative 07/18/21 Unknown Acetaminophen 5.7 ug/mL (10.0-30.0) L 07/18/21 16:00 Ur Barbiturates Screen Negative 07/18/21 Unknown Ur Phencyclidine Scrn Negative 07/18/21 Unknown Ur Amphetamines Screen Negative 07/18/21 Unknown U Benzodiazepines Scrn Negative 07/18/21 Unknown Urine Cocaine Screen Negative 07/18/21 Unknown U Marijuana (THC) Screen Negative 07/18/21 Unknown Drugs of Abuse Note Disclamer 07/18/21 Unknown Plasma/Serum Alcohol < 0.01 % (0-0.07) 07/18/21 16:00 Coronavirus (PCR) Positive (Negative) A 07/19/21 Unknown Blood Type O POSITIVE 07/18/21 16:05 Antibody Screen Negative 07/18/21 16:05 Microbiology: Microbiology 07/18/21 16:00 Peripheral/Venous Blood Culture - Preliminary NO GROWTH AFTER 72 HOURS 07/18/21 16:00 Peripheral/Venous Blood Culture - Preliminary NO GROWTH AFTER 72 HOURS 07/18/21 Unknown Urine,Catheterized - Straight Catheter Urine Culture - Final NO GROWTH AFTER 48 HOURS Guzman/IV: Voiding Method Indwelling Catheter Active Medications - Current Medications Current Medications: Generic Name Dose Route Start Last Admin Trade Name Freq PRN Reason Stop Dose Admin Acetaminophen 650 mg 07/18/21 22:49 Acetaminophen 325 Mg Tab PO Q4H PRN Pain MILD(1-3)/Fever >100.5/URENA Lipase/Protease/Amylase 1 each 07/18/21 22:56 Lipase 10,500/Protease 25,000/Amylase 43,750 (Units) Dr Cap FEEDTUBE PRN PRN For Clogged Feeding Tube Enoxaparin Sodium 100 mg 07/19/21 10:00 07/21/21 21:06 Enoxaparin 100 Mg/1 Ml Inj SUB-Q 100 mg Q12HR NICOLE Administration Protocol Famotidine 20 mg 07/18/21 22:00 07/21/21 21:05 Famotidine 20 Mg/2 Ml Inj IV 20 mg BID NICOLE Administration Fentanyl 50 mcg 07/18/21 14:41 Fentanyl 100 Mcg/2 Ml Inj IV Q10MIN PRN ANALGESIA Hydrophilic Ointment 1 applic 07/18/21 14:41 Lip Therapy Vaseline TP Q2HR PRN Dry Lips Fentanyl Citrate 2,000 mcg in 100 mls @ 4.915 mls/hr 07/18/21 16:00 07/22/21 07:51 Fentanyl Drip Premix IV 2 mcg/kg/hr TITR NICOLE 9.83 mls/hr Titration Protocol 1 MCG/KG/HR Midazolam HCl 100 mg/ Sodium 100 mls @ 2 mls/hr 07/18/21 19:00 07/22/21 07:50 Chloride IV 5 mg/hr TITR NICOLE 5 mls/hr Titration Protocol 2 MG/HR Azithromycin 500 mg in 250 mls @ 250 mls/hr 07/19/21 20:00 07/21/21 21:22 Zithromax/Ns IV 07/23/21 20:59 Infused Q24H NICOLE Infusion Ceftriaxone Sodium 2 gm in 100 mls @ 200 mls/hr 07/19/21 20:00 07/21/21 21:00 Rocephin/Ns 2 Gm/100 Ml IV 07/23/21 20:29 Infused Q24H NICOLE Infusion Protocol REMDESIVIR 100 mg/ Sodium 250 mls @ 500 mls/hr 07/20/21 21:00 07/21/21 21:35 Chloride IV 07/23/21 21:29 Infused Q24HR@2100 NICOLE Infusion Dopamine HCl/Dextrose 800 mg in 250 mls @ 3.686 mls/hr 07/20/21 14:00 07/20/21 21:02 Intropin Drip 800 Mg/D5w 250 Ml IV 0 mcg/kg/min TITR NICOLE 0 mls/hr Titration Protocol 2 MCG/KG/MIN Dextrose 1,000 mls @ 75 mls/hr 07/21/21 14:00 07/21/21 15:53 D5w IV 75 mls/hr DIRECT NICOLE Administration Insulin Human Lispro 0 unit 07/19/21 18:00 07/22/21 06:44 Insulin Lispro 100 Unit/Ml SUB-Q 2 unit Q6H NICOLE Administration Protocol Methylprednisolone Sodium Succinate 60 mg 07/18/21 23:00 07/22/21 06:44 Methylprednisolone Sod Succinate 125 Mg/2 Ml Inj IV 60 mg Q8HR NICOLE Administration Midazolam HCl 2 mg 07/18/21 18:11 07/22/21 07:56 Midazolam 2 Mg/2 Ml Inj IV 2 mg Q10MIN PRN Administration Sedation Multi-Ingred Cream/Lotion/Oil/Oint 1 applic 07/18/21 14:41 Mineral Oil/Petrolatum, White Ophth Oint 3.5 Gm OU Q4HR PRN Dry Eye(s) Ondansetron HCl 4 mg 07/18/21 22:49 Ondansetron 4 Mg/2 Ml Inj IV Q8H PRN Nausea And Vomiting Senna/Docusate Sodium 1 tab 07/18/21 22:00 07/21/21 21:07 Sennosides/Docusate Sodium 8.6/50 Mg Tab FEEDTUBE 1 tab BID NICOLE Administration Simple Syrup 15 ml 07/18/21 22:56 Simple Syrup 15 Ml FEEDTUBE PRN PRN Hypoglycemia Simple Syrup 30 ml 07/18/21 22:56 Simple Syrup 15 Ml FEEDTUBE PRN PRN Hypoglycemia Sodium Bicarbonate 325 mg 07/18/21 22:56 Sodium Bicarbonate 325 Mg Tab FEEDTUBE PRN PRN For Clogged Feeding Tube Sodium Chloride 10 ml 07/19/21 10:00 07/21/21 21:07 Sodium Chloride 0.9% 10 Ml Flush Syringe IV 10 ml BID NICOLE Administration Sodium Chloride 10 ml 07/18/21 22:49 Sodium Chloride 0.9% 10 Ml Flush Syringe IV PRN PRN LINE FLUSH Sodium Chloride 50 ml 07/19/21 17:00 07/21/21 21:06 Sodium Chloride 0.9% 50 Ml Ivpb IV 07/22/21 21:01 50 ml Q24HR@2100 NICOLE Administration Sodium Chloride 5 ml 07/20/21 14:38 Sodium Chloride 0.9% 1000 Ml Iv Soln IV PRN PRN ART-LINE Nutrition/Malnutrition Assess - Dietary Evaluation Nutrition/Malnutrition Findings: Nutrition Notes Start: 07/19/21 09:15 Freq: Status: Active Protocol: Document 07/21/21 14:54 SG (Rec: 07/21/21 15:03 SG [id number]) Nutrition Notes Need for Assessment generated from: MD Order Initial or Follow up Brief Note Current Diagnosis Acute Kidney Injury,Diabetes, Hypertension,Respiratory Failure Other Pertinent Diagnosis COVID PUI Current Diet TF Height 5 ft 6 in Weight 104 kg [place] Body Weight (kg) 59.09 BMI 37.0 Burn Absent Trauma Absent #1 Nutrition Diagnosis Inadequate oral intake Etiology respiratory failure As Evidenced by Signs and Symptoms pt on vent and unable to consume PO Diagnosis Progress(for reassessment Continues documentation) Is patient on ventilator? Yes Is Patient Ambulatory and/or Out of Bed No REE-([facility]-confined to bed) 1992.036 Kcal/Kg value to use for calculation 14 Approximate Energy Requirements Using 1456 kcal/Kg Calculation Used for Recommendations Kcal/kg Additional Notes Protein: (>2g/kg IBW) >118g Fluid: 1 ml/kcal or per MD Nutrition Intervention Nutrition Support: Osmolite 1.5 yajaira at 10 ml/hr goal rate Kcal 360 Protein (gm) 15 Goal #[address] will evaluate for increase in TF goal rate Follow-Up By: 07/22/21 Additional Comments f/u for TF formula and energy intake.
[2021-07-22] MEDS: DEXTROSE 5% IN WATER 1,000 ML IV SCH ×2 (09:40→21:12)
[2021-07-22] MEDS: fentaNYL DRIP Premix 2,000 MCG/100 ML BAG IV SCH ×2 (09:45→17:33)
[2021-07-22] MEDS: FAMOTIDINE 20 MG/2 ML INJ IV SCH ×2 (10:56→21:04)
[2021-07-22] MEDS: ENOXAPARIN 100 MG/1 ML INJ SUB-Q SCH ×2 (10:56→21:03)
--- NOTE | 2021-07-22 11:14 | Progress Note ---
Assessment and Plan 55 y/o obese female with acute respiratory failure, pulmonary embolism, now with renal failure, most likely all secondary to COVID 19 07/22/21: Dropped Fio2 to 65. Continue to wean for sats >88%. keep elevated peep until FiO2 around 50-55% so hopefully in the next 24-36 hours we can get there. Continue sedation to keep rass at -4. Continue high dose steroids. Will continue D5W for now until Free water can control sodium. need CBC in the am along with BMP. Prognosis still remains guarded. Continue lovenox 07/21/21: Dropped FiO2 to 80%. Continue to wean for sats >88%. Keep peep elevated until FiO2 around 50-55%. Continue remdesivir and adequate levels of sedation. Continue high dose steroids. No proning for now. Continue therapeutic lovenox. Prognosis remains guarded. 07/20/21: COVID positive. Started Remdesivir. Renal function improved. COntinue high dose steroids at current dosing for now. Suggest repeat ABG later this afternoon if able, may need art line but BP stable for now. No proning. Agree with therapeutic Lovenox. Guarded prognosis. 1. Follow up COVID testing, continue isolation 2. Agree with high dose IV steroids, if positive, will change to solumedrol [id number] 3. If positive then would need remdesivir and Actemra, hopefully still a candidate given bump in renal function 4. Unable to prone patient at moment, but did increase PEEP to 20 and ordered repeat ABG at 1400 5 Very very guarded prognosis CCT 31 minutes. Subjective Date of service: 07/22/21 Interval history: Having some bradycardia this am but BP stable. Was started on dopamine at 2. Sedated with versed and Fent. RR consistent with what is dialed in on vent. Dropped fiO2 to 65%. Still with good urine out put. Awaiting repeat EKG. Objective Vital Signs - 12hr 07/21/21 07/21/21 07/21/21 23:10 23:20 23:30 Temperature Pulse Rate 47 L 48 L 48 L Respiratory 11 L 11 L 9 L Rate Blood Pressure 139/74 139/74 139/74 O2 Sat by Pulse 97 96 97 Oximetry 07/21/21 07/21/21 07/22/21 23:40 23:50 00:00 Temperature 98.9 F Pulse Rate 49 L 49 L 47 L Respiratory 16 12 17 Rate Blood Pressure 139/74 139/74 152/78 O2 Sat by Pulse 98 97 97 Oximetry 07/22/21 07/22/21 07/22/21 00:10 00:20 00:30 Temperature Pulse Rate 48 L 45 L 48 L Respiratory 20 26 H 18 Rate Blood Pressure 139/74 139/74 139/74 O2 Sat by Pulse 97 98 97 Oximetry 07/22/21 07/22/21 07/22/21 00:40 00:50 01:00 Temperature Pulse Rate 48 L 48 L 47 L Respiratory 26 H 21 16 Rate Blood Pressure 139/74 139/74 139/74 O2 Sat by Pulse 97 96 96 Oximetry 07/22/21 07/22/21 07/22/21 01:10 01:20 01:30 Temperature Pulse Rate 47 L 48 L 46 L Respiratory 26 H 9 L 15 Rate Blood Pressure 139/74 139/74 139/74 O2 Sat by Pulse 97 96 96 Oximetry 07/22/21 07/22/21 07/22/21 01:40 01:50 02:00 Temperature Pulse Rate 47 L 53 L 47 L Respiratory 24 16 20 Rate Blood Pressure 139/74 139/74 139/74 O2 Sat by Pulse 96 97 97 Oximetry 07/22/21 07/22/21 07/22/21 02:10 02:20 02:30 Temperature Pulse Rate 46 L 54 L 67 Respiratory 17 20 16 Rate Blood Pressure 139/74 139/74 139/74 O2 Sat by Pulse 96 97 95 Oximetry 07/22/21 07/22/21 07/22/21 02:40 02:50 03:00 Temperature Pulse Rate 52 L 52 L 60 Respiratory 9 L 13 18 Rate Blood Pressure 139/74 139/74 139/74 O2 Sat by Pulse 94 94 94 Oximetry 07/22/21 07/22/21 07/22/21 03:10 03:20 03:30 Temperature Pulse Rate 56 L 51 L 49 L Respiratory 13 17 11 L Rate Blood Pressure 139/74 139/74 139/74 O2 Sat by Pulse 95 93 93 Oximetry 07/22/21 07/22/21 07/22/21 03:40 03:50 04:00 Temperature 99.0 F Pulse Rate 45 L 60 75 Respiratory 11 L 17 22 Rate Blood Pressure 139/74 139/74 139/74 O2 Sat by Pulse 95 96 94 Oximetry 07/22/21 07/22/21 07/22/21 04:10 04:20 04:30 Temperature Pulse Rate 84 53 L 49 L Respiratory 21 27 H 26 H Rate Blood Pressure 139/74 148/90 148/90 O2 Sat by Pulse 92 92 94 Oximetry 07/22/21 07/22/21 07/22/21 04:40 04:45 04:50 Temperature Pulse Rate 49 L 51 L 47 L Respiratory 25 H 27 H Rate Blood Pressure 148/90 174/84 148/90 O2 Sat by Pulse 94 95 94 Oximetry 07/22/21 07/22/21 07/22/21 05:00 05:10 05:20 Temperature Pulse Rate 49 L 48 L 47 L Respiratory 26 H 26 H 25 H Rate Blood Pressure 152/83 152/83 152/83 O2 Sat by Pulse 93 95 93 Oximetry 07/22/21 07/22/21 07/22/21 05:30 05:40 05:50 Temperature Pulse Rate 51 L 45 L 45 L Respiratory 15 26 H 24 Rate Blood Pressure 152/83 152/83 152/83 O2 Sat by Pulse 95 95 95 Oximetry 07/22/21 07/22/21 07/22/21 06:00 06:10 06:20 Temperature Pulse Rate 49 L 47 L 46 L Respiratory 26 H 24 24 Rate Blood Pressure 147/75 152/83 152/83 O2 Sat by Pulse 93 95 94 Oximetry 07/22/21 07/22/21 07/22/21 06:30 06:40 07:24 Temperature Pulse Rate 43 L 47 L 55 L Respiratory 26 H 24 Rate Blood Pressure 152/83 147/75 190/94 O2 Sat by Pulse 95 95 95 Oximetry Constitutional: comatose ENT: other (orally intubated and sedated) CBC and BMP: 07/20/21 04:44 07/22/21 04:39 ABG, PT/INR, D-dimer: ABG ABG pH 7.398 (7.320-7.450) 07/22/21 03:30 POC ABG pCO2 38.4 mmHg (32.0-48.0) 07/22/21 03:30 ABG pCO2 35.2 mm Hg 07/19/21 Unknown POC ABG pO2 67.4 mmHg (83-108) L 07/22/21 03:30 ABG pO2 64.2 mm Hg (80.0-90.0) L 07/19/21 Unknown POC ABG HCO3 23.1 07/22/21 03:30 ABG O2 Saturation 92.3 (0-100) 07/22/21 03:30 PT/INR, D-dimer PT 15.1 Sec. (12.2-14.9) H 07/18/21 16:00 INR 1.13 (0.87-1.13) 07/18/21 16:00 D-Dimer > 88365 ng/mlDDU (0-234) H 07/18/21 16:00 Abnormal lab findings: Abnormal Labs 07/18/21 07/18/21 07/18/21 16:00 16:00 16:00 RBC Hgb Hct RDW 15.3 H Lymph % (Auto) 7.9 L Lymph # (Auto) 0.8 L Seg Neutrophils % 86.3 H Seg Neutrophils # 9.0 H PT 15.1 H D-Dimer > 32412 H ABG pH POC ABG pCO2 POC ABG pO2 ABG pO2 ABG O2 Saturation ABG Base Excess ABG Hemoglobin ABG Oxyhemoglobin ABG Sodium ABG Chloride ABG Glucose Oxyhemoglobin Carboxyhemoglobin Sodium Potassium 3.5 L Chloride Carbon Dioxide 20 L BUN 19 H Creatinine Glucose 140 H POC Glucose Calcium Magnesium Ferritin AST 43 H Lactate Dehydrogenase 705 H Total Creatine Kinase 157 H Troponin T 0.106 H* C-Reactive Protein 33.00 H Total Protein Albumin 3.2 L Triglycerides 156 H HDL Cholesterol 33 L Arterial Blood Glucose Arterial Blood Ionized Calcium Urine WBC (Auto) Salicylates Acetaminophen Coronavirus (PCR) 07/18/21 07/18/21 07/18/21 16:00 16:00 16:00 RBC Hgb Hct RDW Lymph % (Auto) Lymph # (Auto) Seg Neutrophils % Seg Neutrophils # PT D-Dimer ABG pH POC ABG pCO2 POC ABG pO2 ABG pO2 ABG O2 Saturation ABG Base Excess ABG Hemoglobin ABG Oxyhemoglobin ABG Sodium ABG Chloride ABG Glucose Oxyhemoglobin Carboxyhemoglobin Sodium Potassium Chloride Carbon Dioxide BUN Creatinine Glucose POC Glucose Calcium Magnesium Ferritin 657.0 H AST Lactate Dehydrogenase Total Creatine Kinase Troponin T C-Reactive Protein Total Protein Albumin Triglycerides HDL Cholesterol Arterial Blood Glucose Arterial Blood Ionized Calcium Urine WBC (Auto) Salicylates < 0.3 L Acetaminophen 5.7 L Coronavirus (PCR) 07/18/21 07/18/21 07/19/21 Unknown Unknown 04:33 RBC Hgb Hct RDW Lymph % (Auto) Lymph # (Auto) Seg Neutrophils % Seg Neutrophils # PT D-Dimer ABG pH 7.275 L POC ABG pCO2 POC ABG pO2 68.7 L 53.1 L ABG pO2 ABG O2 Saturation ABG Base Excess ABG Hemoglobin ABG Oxyhemoglobin 88.3 L 85.3 L ABG Sodium ABG Chloride 109.0 H ABG Glucose 170 H 150 H Oxyhemoglobin Carboxyhemoglobin 0 L 0.3 L Sodium Potassium Chloride Carbon Dioxide BUN Creatinine Glucose POC Glucose Calcium Magnesium Ferritin AST Lactate Dehydrogenase Total Creatine Kinase Troponin T C-Reactive Protein Total Protein Albumin Triglycerides HDL Cholesterol Arterial Blood Glucose 170 H 150 H Arterial Blood Ionized Calcium Urine WBC (Auto) 9.0 H Salicylates Acetaminophen Coronavirus (PCR) 07/19/21 07/19/21 07/19/21 04:59 04:59 Unknown RBC Hgb Hct RDW 16.0 H Lymph % (Auto) 10.7 L Lymph # (Auto) 1.1 L Seg Neutrophils % 84.3 H Seg Neutrophils # 8.7 H PT D-Dimer ABG pH POC ABG pCO2 POC ABG pO2 ABG pO2 ABG O2 Saturation ABG Base Excess ABG Hemoglobin ABG Oxyhemoglobin ABG Sodium ABG Chloride ABG Glucose Oxyhemoglobin Carboxyhemoglobin Sodium Potassium Chloride 108.8 H Carbon Dioxide 21 L BUN 28 H Creatinine 1.8 H Glucose 145 H POC Glucose Calcium 7.8 L Magnesium Ferritin AST Lactate Dehydrogenase Total Creatine Kinase Troponin T C-Reactive Protein Total Protein 6.2 L Albumin 3.2 L Triglycerides HDL Cholesterol Arterial Blood Glucose Arterial Blood Ionized Calcium Urine WBC (Auto) Salicylates Acetaminophen Coronavirus (PCR) Positive A 07/19/21 07/20/21 07/20/21 Unknown 00:14 04:44 RBC Hgb Hct RDW Lymph % (Auto) Lymph # (Auto) Seg Neutrophils % Seg Neutrophils # PT D-Dimer ABG pH POC ABG pCO2 POC ABG pO2 ABG pO2 64.2 L ABG O2 Saturation 93.2 L ABG Base Excess -4.5 L ABG Hemoglobin 11.0 L ABG Oxyhemoglobin ABG Sodium ABG Chloride ABG Glucose Oxyhemoglobin 91.9 L Carboxyhemoglobin Sodium Potassium Chloride 112.2 H Carbon Dioxide BUN 38 H Creatinine 1.3 H Glucose 156 H POC Glucose 164 H Calcium 8.1 L Magnesium 3.10 H Ferritin AST Lactate Dehydrogenase Total Creatine Kinase Troponin T C-Reactive Protein Total Protein Albumin 2.8 L Triglycerides HDL Cholesterol Arterial Blood Glucose Arterial Blood Ionized Calcium Urine WBC (Auto) Salicylates Acetaminophen Coronavirus (PCR) 07/20/21 07/20/21 07/20/21 04:44 05:00 05:40 RBC 3.42 L Hgb 9.7 L Hct 29.3 L RDW 16.1 H Lymph % (Auto) Lymph # (Auto) Seg Neutrophils % Seg Neutrophils # PT D-Dimer ABG pH POC ABG pCO2 POC ABG pO2 139.0 H ABG pO2 ABG O2 Saturation ABG Base Excess ABG Hemoglobin 10.1 L ABG Oxyhemoglobin ABG Sodium ABG Chloride 113.0 H ABG Glucose 155 H Oxyhemoglobin Carboxyhemoglobin 0.3 L Sodium Potassium Chloride Carbon Dioxide BUN Creatinine Glucose POC Glucose 164 H Calcium Magnesium Ferritin AST Lactate Dehydrogenase Total Creatine Kinase Troponin T C-Reactive Protein Total Protein Albumin Triglycerides HDL Cholesterol Arterial Blood Glucose 155 H Arterial Blood Ionized Calcium 4.4 L Urine WBC (Auto) Salicylates Acetaminophen Coronavirus (PCR) 07/20/21 07/20/21 07/21/21 11:40 17:48 03:31 RBC Hgb Hct RDW Lymph % (Auto) Lymph # (Auto) Seg Neutrophils % Seg Neutrophils # PT D-Dimer ABG pH POC ABG pCO2 POC ABG pO2 ABG pO2 ABG O2 Saturation ABG Base Excess ABG Hemoglobin ABG Oxyhemoglobin ABG Sodium ABG Chloride ABG Glucose Oxyhemoglobin Carboxyhemoglobin Sodium Potassium Chloride Carbon Dioxide BUN Creatinine Glucose POC Glucose 137 H 143 H 157 H Calcium Magnesium Ferritin AST Lactate Dehydrogenase Total Creatine Kinase Troponin T C-Reactive Protein Total Protein Albumin Triglycerides HDL Cholesterol Arterial Blood Glucose Arterial Blood Ionized Calcium Urine WBC (Auto) Salicylates Acetaminophen Coronavirus (PCR) 07/21/21 07/21/21 07/21/21 04:30 04:52 05:21 RBC Hgb Hct RDW Lymph % (Auto) Lymph # (Auto) Seg Neutrophils % Seg Neutrophils # PT D-Dimer ABG pH POC ABG pCO2 31.7 L POC ABG pO2 77.6 L ABG pO2 ABG O2 Saturation ABG Base Excess ABG Hemoglobin 10.2 L ABG Oxyhemoglobin ABG Sodium 148.3 H ABG Chloride 120.0 H ABG Glucose 168 H Oxyhemoglobin Carboxyhemoglobin 0.2 L Sodium 150 H Potassium Chloride 115.7 H Carbon Dioxide BUN 49 H Creatinine 1.4 H Glucose 185 H POC Glucose 170 H Calcium 8.3 L Magnesium Ferritin AST Lactate Dehydrogenase Total Creatine Kinase Troponin T C-Reactive Protein Total Protein Albumin 3.0 L Triglycerides HDL Cholesterol Arterial Blood Glucose 168 H Arterial Blood Ionized Calcium 4.4 L Urine WBC (Auto) Salicylates Acetaminophen Coronavirus (PCR) 07/21/21 07/21/21 07/21/21 11:17 17:26 23:40 RBC Hgb Hct RDW Lymph % (Auto) Lymph # (Auto) Seg Neutrophils % Seg Neutrophils # PT D-Dimer ABG pH POC ABG pCO2 POC ABG pO2 ABG pO2 ABG O2 Saturation ABG Base Excess ABG Hemoglobin ABG Oxyhemoglobin ABG Sodium ABG Chloride ABG Glucose Oxyhemoglobin Carboxyhemoglobin Sodium Potassium Chloride Carbon Dioxide BUN Creatinine Glucose POC Glucose 176 H 184 H 161 H Calcium Magnesium Ferritin AST Lactate Dehydrogenase Total Creatine Kinase Troponin T C-Reactive Protein Total Protein Albumin Triglycerides HDL Cholesterol Arterial Blood Glucose Arterial Blood Ionized Calcium Urine WBC (Auto) Salicylates Acetaminophen Coronavirus (PCR) 07/22/21 07/22/21 07/22/21 03:30 04:39 05:29 RBC Hgb Hct RDW Lymph % (Auto) Lymph # (Auto) Seg Neutrophils % Seg Neutrophils # PT D-Dimer ABG pH POC ABG pCO2 POC ABG pO2 67.4 L ABG pO2 ABG O2 Saturation ABG Base Excess ABG Hemoglobin 10.4 L ABG Oxyhemoglobin 91.8 L ABG Sodium 118.4 L ABG Chloride 114.0 H ABG Glucose 189 H Oxyhemoglobin Carboxyhemoglobin 0.2 L Sodium 146 H Potassium Chloride 112.8 H Carbon Dioxide 21 L BUN 46 H Creatinine Glucose 191 H POC Glucose 191 H Calcium Magnesium Ferritin AST Lactate Dehydrogenase Total Creatine Kinase Troponin T C-Reactive Protein Total Protein Albumin 2.9 L Triglycerides HDL Cholesterol Arterial Blood Glucose 189 H Arterial Blood Ionized Calcium 4.5 L Urine WBC (Auto) Salicylates Acetaminophen Coronavirus (PCR)
--- NOTE | 2021-07-22 13:15 | Progress Note ---
Assessment and Plan Cultures: Blood culture 07/18/2021 no growth so far Urine culture 07/18/2021 no growth so far A/P: 55 yo F PMHx HTN, DM2 presents with severe COVID pneumonia. #Presumed COVID pneumonia: pending PCR, clinical presentation consistent with d iagnosis. Elevated procalcitonin as well, however in the setting of ION #Acute hypoxic respiratory failure: currently on the vent #Bilateral pulmonary emboli: anticoagulation per hoptal protocol #ION Recs: -Continue empiric ceftriaxone and azithromycin to complete 5 days -Complete 5 days remdesivir -Received Actemra 07/20/2021 -Anticoagulation per hospital protocol -Proning as able -Obtain q48-72h inflammatory markers - ferritin, Ddimer, CRP, LDH Thank you for the consult, we will continue to follow. Jessica Hassan MD [facility] ([facility]) O: [phone] F: [phone] Subjective Date of service: 07/22/21 Interval history: +Afebrile, no acute change. Remains on the vent. Objective - Exam Narrative Exam: Physical exam deferred to reduce risk of transmission of COVID-19. Please refer to primary team's note. - Constitutional Vitals: Vital Signs Temp Pulse Resp BP Pulse Ox 99.0 F 44 L 24 161/76 95 07/22/21 04:00 07/22/21 11:59 07/22/21 06:40 07/22/21 11:59 07/22/21 11:59 Temperature -Last 24 Hours Temperature 99.0 F Temperature 98.9 F Temperature 99.6 F Temperature 98.7 F - Labs CBC & Chem 7: 07/20/21 04:44 07/22/21 04:39 Labs: Abnormal lab results 07/21/21 07/21/21 07/22/21 Range/Units 17:26 23:40 03:30 POC ABG pO2 67.4 L (83-108) mmHg ABG Hemoglobin 10.4 L (12.0-17.5) ABG Oxyhemoglobin 91.8 L (94-98) ABG Sodium 118.4 L (136.0-145.0) mmol/L ABG Chloride 114.0 H (98-107) mmol/L ABG Glucose 189 H (65-95) mg/dL Carboxyhemoglobin 0.2 L (0.5-1.5) Sodium (137-145) mmol/L Chloride (98-107) mmol/L Carbon Dioxide (22-30) mmol/L BUN (7-17) mg/dL Glucose (65-100) mg/dL POC Glucose 184 H 161 H (70-105) mg/dL Albumin (3.9-5) g/dL Arterial Blood Glucose 189 H (65-95) mg/dL Arterial Blood Ionized Calcium 4.5 L (4.6-5.3) mg/dL 07/22/21 07/22/21 07/22/21 Range/Units 04:39 05:29 12:17 POC ABG pO2 (83-108) mmHg ABG Hemoglobin (12.0-17.5) ABG Oxyhemoglobin (94-98) ABG Sodium (136.0-145.0) mmol/L ABG Chloride (98-107) mmol/L ABG Glucose (65-95) mg/dL Carboxyhemoglobin (0.5-1.5) Sodium 146 H (137-145) mmol/L Chloride 112.8 H (98-107) mmol/L Carbon Dioxide 21 L (22-30) mmol/L BUN 46 H (7-17) mg/dL Glucose 191 H (65-100) mg/dL POC Glucose 191 H 206 H (70-105) mg/dL Albumin 2.9 L (3.9-5) g/dL Arterial Blood Glucose (65-95) mg/dL Arterial Blood Ionized Calcium (4.6-5.3) mg/dL
--- NOTE | 2021-07-22 14:14 | XRay Report ---
CHEST - 1 VIEW INDICATION: eval covid 19 COMPARISON: 07/18/2021 FINDINGS: SUPPORT DEVICES: Stable support device positioning. HEART: Stable cardiomediastinal silhouette. LUNGS/PLEURA: Moderate patchy multifocal airspace disease again noted, largely unchanged. ADDITIONAL FINDINGS: None. IMPRESSION: Unchanged exam. Signer Name: Luis A Colon MD Signed: 07/22/2021 2:04 PM Workstation Name: [id number]
[2021-07-22] MEDS: SENNOSIDES/DOCUSATE SODIUM 8.6/50 MG TAB FEEDTUBE SCH ×2 (16:48→21:03)
[2021-07-22] MEDS: MIDAZOLAM 100 MG in SODIUM CHLORIDE 0.9% 80 ML IV SCH (17:34)
[2021-07-22] MEDS: AZITHROMYCIN/NS 500 MG/250 ML 500 MG/250 ML BAG IV SCH (20:51)
[2021-07-22] MEDS: REMDESIVIR 100 MG in SODIUM CHLORIDE 0.9% 250ML 250 ML IV SCH (20:52)
[2021-07-22] MEDS: cefTRIAXone/NS 2 GM/100 ML 2 GM/100 ML BAG IV SCH (20:52)
[2021-07-22] MEDS: SODIUM CHLORIDE 0.9% 50 ML IVPB IV SCH (20:53)
[2021-07-23] MEDS: INSULIN LISPRO 100 UNIT/ML SUB-Q SCH ×4 (00:11→18:34)
[2021-07-23] MEDS: fentaNYL DRIP Premix 2,000 MCG/100 ML BAG IV SCH ×4 (01:10→21:40)
[2021-07-23] MEDS: FREE WATER PO SCH ×6 (01:12→21:38)
[2021-07-23] MEDS: methylPREDNISolone Sod Succinate 125 MG/2 ML INJ IV SCH ×3 (06:20→21:37)
[2021-07-23 09:34] LABS: Hematocrit 32.5 % (30.3-42.9); Hemoglobin 10.5 gm/dl (10.1-14.3); Mean Corpuscular HGB Conc 32 % (30-34); Mean Corpuscular Volume 86 fl (79-97); Platelet Count 274 K/mm3 (140-440); Red Blood Count 3.78 M/mm3 (3.65-5.03); Red Cell Distribution Width 15.7 % (13.2-15.2)
[2021-07-23 09:36] LABS: BUN/Creatinine Ratio 40; Blood Urea Nitrogen 32 mg/dL (7-17); Calcium 8.4 mg/dL (8.4-10.2); Hemolysis Index 5
--- NOTE | 2021-07-23 10:41 | Progress Note ---
Assessment and Plan 55 y/o obese female with acute respiratory failure, pulmonary embolism, now with renal failure, most likely all secondary to COVID 19 07/23/21: Dropped FiO2 to 70. Hopeful to wean back down. Keep peep elevated until FiO2 at 50-55%. Continue High dose steroids. Keep RASS at -4. Na is better. Will stop D5W. Updated Daughter (Linda) and [employer] over the phone. If someone could please call them at least one day over the weekend I will call them again on Monday. Prognosis remains very guarded. Explained to them the high mortality rate associated with COVID and mechanical ventilation. 07/22/21: Dropped Fio2 to 65. Continue to wean for sats >88%. keep elevated peep until FiO2 around 50-55% so hopefully in the next 24-36 hours we can get there. Continue sedation to keep rass at -4. Continue high dose steroids. Aman l continue D5W for now until Free water can control sodium. need CBC in the am along with BMP. Prognosis still remains guarded. Continue lovenox 07/21/21: Dropped FiO2 to 80%. Continue to wean for sats >88%. Keep peep elevated until FiO2 around 50-55%. Continue remdesivir and adequate levels of sedation. Continue high dose steroids. No proning for now. Continue therapeutic lovenox. Prognosis remains guarded. 07/20/21: COVID positive. Started Remdesivir. Renal function improved. COnt inue high dose steroids at current dosing for now. Suggest repeat ABG later this afternoon if able, may need art line but BP stable for now. No proning. Agree with therapeutic Lovenox. Guarded prognosis. 1. Follow up COVID testing, continue isolation 2. Agree with high dose IV steroids, if positive, will change to solumedrol [id number] 3. If positive then would need remdesivir and Actemra, hopefully still a candidate given bump in renal function 4. Unable to prone patient at moment, but did increase PEEP to 20 and ordered repeat ABG at 1400 5 Very very guarded prognosis CCT 31 minutes. Subjective Date of service: 07/23/21 Interval history: Dropped FiO2 to 70% this morning on my exam. She had to be increased yesterday to 75%. Still making urine. Objective Vital Signs - 12hr 07/22/21 07/22/2107/22/21 22:40 22:50 23:00 Temperature Pulse Rate 50 L 49 L 47 L Pulse Rate [ From Monitor] Respiratory 26 H 26 H 26 H Rate Blood Pressure 118/65 118/65 119/64 O2 Sat by Pulse 94 94 91 Oximetry 07/22/21 07/22/21 07/22/21 23:10 23:20 23:30 Temperature Pulse Rate 48 L 47 L 46 L Pulse Rate [ From Monitor] Respiratory 26 H 26 H 26 H Rate Blood Pressure 119/64 119/64 119/64 O2 Sat by Pulse 92 91 93 Oximetry 07/22/21 07/22/21 07/22/21 23:40 23:42 23:50 Temperature 99.4 F Pulse Rate 45 L 46 L Pulse Rate [ From Monitor] Respiratory 26 H 26 H Rate Blood Pressure 119/64 119/64 O2 Sat by Pulse 93 95 Oximetry 07/23/21 07/23/21 07/23/21 00:00 00:06 00:09 Temperature Pulse Rate 46 L 48 L 48 L Pulse Rate [ 48 L From Monitor] Respiratory 26 H 26 H Rate Blood Pressure 123/62 123/62 123/62 O2 Sat by Pulse 93 94 91 Oximetry 07/23/21 07/23/21 07/23/21 00:10 00:20 00:30 Temperature Pulse Rate 49 L 50 L 46 L Pulse Rate [ From Monitor] Respiratory 24 26 H 23 Rate Blood Pressure 123/62 123/62 123/62 O2 Sat by Pulse 90 90 95 Oximetry 07/23/21 07/23/21 07/23/21 00:40 00:50 01:00 Temperature Pulse Rate 47 L 46 L 52 L Pulse Rate [ From Monitor] Respiratory 18 22 15 Rate Blood Pressure 123/62 123/62 123/62 O2 Sat by Pulse 93 95 94 Oximetry 07/23/21 07/23/21 07/23/21 01:10 01:20 01:30 Temperature Pulse Rate 68 59 L 55 L Pulse Rate [ From Monitor] Respiratory 14 11 L 12 Rate Blood Pressure 149/73 149/73 149/73 O2 Sat by Pulse 96 92 92 Oximetry 07/23/21 07/23/21 07/23/21 01:40 01:50 02:00 Temperature Pulse Rate 57 L 53 L 49 L Pulse Rate [ From Monitor] Respiratory 17 17 23 Rate Blood Pressure 149/73 149/73 149/73 O2 Sat by Pulse 93 93 Oximetry 07/23/21 07/23/21 07/23/21 02:10 02:20 02:30 Temperature Pulse Rate 51 L 55 L 51 L Pulse Rate [ From Monitor] Respiratory 17 21 17 Rate Blood Pressure 128/61 128/61 128/61 O2 Sat by Pulse 93 92 93 Oximetry 07/23/21 07/23/21 07/23/21 02:40 02:50 03:00 Temperature Pulse Rate 49 L 50 L 57 L Pulse Rate [ From Monitor] Respiratory 20 26 H 15 Rate Blood Pressure 128/61 128/61 137/71 O2 Sat by Pulse 93 94 93 Oximetry 07/23/21 07/23/21 07/23/21 03:10 03:20 03:30 Temperature Pulse Rate 56 L 51 L 48 L Pulse Rate [ From Monitor] Respiratory 16 25 H 25 H Rate Blood Pressure 137/71 128/61 128/61 O2 Sat by Pulse 93 93 94 Oximetry 07/23/21 07/23/21 07/23/21 03:40 03:46 03:50 Temperature 99.7 F H Pulse Rate 49 L 56 L Pulse Rate [ From Monitor] Respiratory 26 H 17 Rate Blood Pressure 128/61 128/61 O2 Sat by Pulse 94 93 Oximetry 07/23/21 07/23/21 07/23/21 04:00 04:10 04:14 Temperature Pulse Rate 52 L 51 L 53 L Pulse Rate [ 54 L From Monitor] Respiratory 15 20 Rate Blood Pressure 141/63 141/63 141/63 O2 Sat by Pulse 92 94 94 Oximetry 07/23/21 07/23/21 07/23/21 04:20 04:30 04:40 Temperature Pulse Rate 52 L 82 65 Pulse Rate [ From Monitor] Respiratory 17 16 12 Rate Blood Pressure 141/63 141/63 141/63 O2 Sat by Pulse 94 97 94 Oximetry 07/23/21 07/23/21 07/23/21 04:50 05:00 05:10 Temperature Pulse Rate 57 L 61 53 L Pulse Rate [ From Monitor] Respiratory 25 H 21 26 H Rate Blood Pressure 141/63 151/74 151/74 O2 Sat by Pulse 92 90 91 Oximetry 07/23/21 07/23/21 07/23/21 05:20 05:30 05:40 Temperature Pulse Rate 51 L 52 L 51 L Pulse Rate [ From Monitor] Respiratory 22 15 6 L Rate Blood Pressure 151/74 141/63 141/63 O2 Sat by Pulse 91 91 90 Oximetry 07/23/21 07/23/21 07/23/21 05:50 06:00 06:10 Temperature Pulse Rate 51 L 49 L 49 L Pulse Rate [ From Monitor] Respiratory 8 L 9 L 9 L Rate Blood Pressure 141/63 141/63 125/58 O2 Sat by Pulse 89 88 90 Oximetry 07/23/21 07/23/21 07/23/21 06:20 06:30 06:40 Temperature Pulse Rate 50 L 51 L 50 L Pulse Rate [ From Monitor] Respiratory 12 9 L 9 L Rate Blood Pressure 125/58 125/58 125/58 O2 Sat by Pulse 91 90 91 Oximetry 07/23/21 07/23/21 07/23/21 06:50 07:00 07:10 Temperature 100.2 F H Pulse Rate 49 L 48 L 50 L Pulse Rate [ From Monitor] Respiratory 7 L 11 L 15 Rate Blood Pressure 125/58 136/60 136/60 O2 Sat by Pulse 89 90 91 Oximetry 07/23/21 07:21 Temperature Pulse Rate 51 L Pulse Rate [ From Monitor] Respiratory Rate Blood Pressure 136/60 O2 Sat by Pulse 92 Oximetry Constitutional: comatose ENT: other (orally intubated and sedated) CBC and BMP: 07/23/21 09:02 07/23/21 09:02 ABG, PT/INR, D-dimer: ABG ABG pH 7.415 (7.320-7.450) 07/23/21 03:30 POC ABG pCO2 39.1 mmHg (32.0-48.0) 07/23/21 03:30 ABG pCO2 35.2 mm Hg 07/19/21 Unknown POC ABG pO2 70.9 mmHg (83-108) L 07/23/21 03:30 ABG pO2 64.2 mm Hg (80.0-90.0) L 07/19/21 Unknown POC ABG HCO3 24.5 07/23/21 03:30 ABG O2 Saturation 93.3 (0-100) 07/23/21 03:30 PT/INR, D-dimer PT 15.1 Sec. (12.2-14.9) H 07/18/21 16:00 INR 1.13 (0.87-1.13) 07/18/21 16:00 D-Dimer > 80657 ng/mlDDU (0-234) H 07/18/21 16:00 Abnormal lab findings: Abnormal Labs 07/18/21 07/18/21 07/18/21 16:00 16:00 16:00 WBC RBC Hgb Hct RDW 15.3 H Lymph % (Auto) 7.9 L Lymph # (Auto) 0.8 L Seg Neutrophils % 86.3 H Seg Neutrophils # 9.0 H PT 15.1 H D-Dimer > 40434 H ABG pH POC ABG pCO2 POC ABG pO2 ABG pO2 ABG O2 Saturation ABG Base Excess ABG Hemoglobin ABG Oxyhemoglobin ABG Sodium ABG Chloride ABG Glucose Oxyhemoglobin Carboxyhemoglobin Sodium Potassium 3.5 L Chloride Carbon Dioxide 20 L BUN 19 H Creatinine Glucose 140 H POC Glucose Calcium Magnesium Ferritin AST 43 H Lactate Dehydrogenase 705 H Total Creatine Kinase 157 H Troponin T 0.106 H* C-Reactive Protein 33.00 H Total Protein Albumin 3.2 L Triglycerides 156 H HDL Cholesterol 33 L Arterial Blood Glucose Arterial Blood Ionized Calcium Urine WBC (Auto) Salicylates Acetaminophen Coronavirus (PCR) 07/18/21 07/18/21 07/18/21 16:00 16:00 16:00 WBC RBC Hgb Hct RDW Lymph % (Auto) Lymph # (Auto) Seg Neutrophils % Seg Neutrophils # PT D-Dimer ABG pH POC ABG pCO2 POC ABG pO2 ABG pO2 ABG O2 Saturation ABG Base Excess ABG Hemoglobin ABG Oxyhemoglobin ABG Sodium ABG Chloride ABG Glucose Oxyhemoglobin Carboxyhemoglobin Sodium Potassium Chloride Carbon Dioxide BUN Creatinine Glucose POC Glucose Calcium Magnesium Ferritin 657.0 H AST Lactate Dehydrogenase Total Creatine Kinase Troponin T C-Reactive Protein Total Protein Albumin Triglycerides HDL Cholesterol Arterial Blood Glucose Arterial Blood Ionized Calcium Urine WBC (Auto) Salicylates < 0.3 L Acetaminophen 5.7 L Coronavirus (PCR) 07/18/21 07/18/21 07/19/21 Unknown Unknown 04:33 WBC RBC Hgb Hct RDW Lymph % (Auto) Lymph # (Auto) Seg Neutrophils % Seg Neutrophils # PT D-Dimer ABG pH 7.275 L POC ABG pCO2 POC ABG pO2 68.7 L 53.1 L ABG pO2 ABG O2 Saturation ABG Base Excess ABG Hemoglobin ABG Oxyhemoglobin 88.3 L 85.3 L ABG Sodium ABG Chloride 109.0 H ABG Glucose 170 H 150 H Oxyhemoglobin Carboxyhemoglobin 0 L 0.3 L Sodium Potassium Chloride Carbon Dioxide BUN Creatinine Glucose POC Glucose Calcium Magnesium Ferritin AST Lactate Dehydrogenase Total Creatine Kinase Troponin T C-Reactive Protein Total Protein Albumin Triglycerides HDL Cholesterol Arterial Blood Glucose 170 H 150 H Arterial Blood Ionized Calcium Urine WBC (Auto) 9.0 H Salicylates Acetaminophen Coronavirus (PCR) 07/19/21 07/19/21 07/19/21 04:59 04:59 Unknown WBC RBC Hgb Hct RDW 16.0 H Lymph % (Auto) 10.7 L Lymph # (Auto) 1.1 L Seg Neutrophils % 84.3 H Seg Neutrophils # 8.7 H PT D-Dimer ABG pH POC ABG pCO2 POC ABG pO2 ABG pO2 ABG O2 Saturation ABG Base Excess ABG Hemoglobin ABG Oxyhemoglobin ABG Sodium ABG Chloride ABG Glucose Oxyhemoglobin Carboxyhemoglobin Sodium Potassium Chloride 108.8 H Carbon Dioxide 21 L BUN 28 H Creatinine 1.8 H Glucose 145 H POC Glucose Calcium 7.8 L Magnesium Ferritin AST Lactate Dehydrogenase Total Creatine Kinase Troponin T C-Reactive Protein Total Protein 6.2 L Albumin 3.2 L Triglycerides HDL Cholesterol Arterial Blood Glucose Arterial Blood Ionized Calcium Urine WBC (Auto) Salicylates Acetaminophen Coronavirus (PCR) Positive A 07/19/21 07/20/21 07/20/21 Unknown 00:14 04:44 WBC RBC Hgb Hct RDW Lymph % (Auto) Lymph # (Auto) Seg Neutrophils % Seg Neutrophils # PT D-Dimer ABG pH POC ABG pCO2 POC ABG pO2 ABG pO2 64.2 L ABG O2 Saturation 93.2 L ABG Base Excess -4.5 L ABG Hemoglobin 11.0 L ABG Oxyhemoglobin ABG Sodium ABG Chloride ABG Glucose Oxyhemoglobin 91.9 L Carboxyhemoglobin Sodium Potassium Chloride 112.2 H Carbon Dioxide BUN 38 H Creatinine 1.3 H Glucose 156 H POC Glucose 164 H Calcium 8.1 L Magnesium 3.10 H Ferritin AST Lactate Dehydrogenase Total Creatine Kinase Troponin T C-Reactive Protein Total Protein Albumin 2.8 L Triglycerides HDL Cholesterol Arterial Blood Glucose Arterial Blood Ionized Calcium Urine WBC (Auto) Salicylates Acetaminophen Coronavirus (PCR) 07/20/21 07/20/21 07/20/21 04:44 05:00 05:40 WBC RBC 3.42 L Hgb 9.7 L Hct 29.3 L RDW 16.1 H Lymph % (Auto) Lymph # (Auto) Seg Neutrophils % Seg Neutrophils # PT D-Dimer ABG pH POC ABG pCO2 POC ABG pO2 139.0 H ABG pO2 ABG O2 Saturation ABG Base Excess ABG Hemoglobin 10.1 L ABG Oxyhemoglobin ABG Sodium ABG Chloride 113.0 H ABG Glucose 155 H Oxyhemoglobin Carboxyhemoglobin 0.3 L Sodium Potassium Chloride Carbon Dioxide BUN Creatinine Glucose POC Glucose 164 H Calcium Magnesium Ferritin AST Lactate Dehydrogenase Total Creatine Kinase Troponin T C-Reactive Protein Total Protein Albumin Triglycerides HDL Cholesterol Arterial Blood Glucose 155 H Arterial Blood Ionized Calcium 4.4 L Urine WBC (Auto) Salicylates Acetaminophen Coronavirus (PCR) 07/20/21 07/20/21 07/21/21 11:40 17:48 03:31 WBC RBC Hgb Hct RDW Lymph % (Auto) Lymph # (Auto) Seg Neutrophils % Seg Neutrophils # PT D-Dimer ABG pH POC ABG pCO2 POC ABG pO2 ABG pO2 ABG O2 Saturation ABG Base Excess ABG Hemoglobin ABG Oxyhemoglobin ABG Sodium ABG Chloride ABG Glucose Oxyhemoglobin Carboxyhemoglobin Sodium Potassium Chloride Carbon Dioxide BUN Creatinine Glucose POC Glucose 137 H 143 H 157 H Calcium Magnesium Ferritin AST Lactate Dehydrogenase Total Creatine Kinase Troponin T C-Reactive Protein Total Protein Albumin Triglycerides HDL Cholesterol Arterial Blood Glucose Arterial Blood Ionized Calcium Urine WBC (Auto) Salicylates Acetaminophen Coronavirus (PCR) 07/21/21 07/21/21 07/21/21 04:30 04:52 05:21 WBC RBC Hgb Hct RDW Lymph % (Auto) Lymph # (Auto) Seg Neutrophils % Seg Neutrophils # PT D-Dimer ABG pH POC ABG pCO2 31.7 L POC ABG pO2 77.6 L ABG pO2 ABG O2 Saturation ABG Base Excess ABG Hemoglobin 10.2 L ABG Oxyhemoglobin ABG Sodium 148.3 H ABG Chloride 120.0 H ABG Glucose 168 H Oxyhemoglobin Carboxyhemoglobin 0.2 L Sodium 150 H Potassium Chloride 115.7 H Carbon Dioxide BUN 49 H Creatinine 1.4 H Glucose 185 H POC Glucose 170 H Calcium 8.3 L Magnesium Ferritin AST Lactate Dehydrogenase Total Creatine Kinase Troponin T C-Reactive Protein Total Protein Albumin 3.0 L Triglycerides HDL Cholesterol Arterial Blood Glucose 168 H Arterial Blood Ionized Calcium 4.4 L Urine WBC (Auto) Salicylates Acetaminophen Coronavirus (PCR) 07/21/21 07/21/21 07/21/21 11:17 17:26 23:40 WBC RBC Hgb Hct RDW Lymph % (Auto) Lymph # (Auto) Seg Neutrophils % Seg Neutrophils # PT D-Dimer ABG pH POC ABG pCO2 POC ABG pO2 ABG pO2 ABG O2 Saturation ABG Base Excess ABG Hemoglobin ABG Oxyhemoglobin ABG Sodium ABG Chloride ABG Glucose Oxyhemoglobin Carboxyhemoglobin Sodium Potassium Chloride Carbon Dioxide BUN Creatinine Glucose POC Glucose 176 H 184 H 161 H Calcium Magnesium Ferritin AST Lactate Dehydrogenase Total Creatine Kinase Troponin T C-Reactive Protein Total Protein Albumin Triglycerides HDL Cholesterol Arterial Blood Glucose Arterial Blood Ionized Calcium Urine WBC (Auto) Salicylates Acetaminophen Coronavirus (PCR) 07/22/21 07/22/21 07/22/21 03:30 04:39 05:29 WBC RBC Hgb Hct RDW Lymph % (Auto) Lymph # (Auto) Seg Neutrophils % Seg Neutrophils # PT D-Dimer ABG pH POC ABG pCO2 POC ABG pO2 67.4 L ABG pO2 ABG O2 Saturation ABG Base Excess ABG Hemoglobin 10.4 L ABG Oxyhemoglobin 91.8 L ABG Sodium 118.4 L ABG Chloride 114.0 H ABG Glucose 189 H Oxyhemoglobin Carboxyhemoglobin 0.2 L Sodium 146 H Potassium Chloride 112.8 H Carbon Dioxide 21 L BUN 46 H Creatinine Glucose 191 H POC Glucose 191 H Calcium Magnesium Ferritin AST Lactate Dehydrogenase Total Creatine Kinase Troponin T C-Reactive Protein Total Protein Albumin 2.9 L Triglycerides HDL Cholesterol Arterial Blood Glucose 189 H Arterial Blood Ionized Calcium 4.5 L Urine WBC (Auto) Salicylates Acetaminophen Coronavirus (PCR) 07/22/21 07/22/21 07/22/21 12:17 17:54 23:34 WBC RBC Hgb Hct RDW Lymph % (Auto) Lymph # (Auto) Seg Neutrophils % Seg Neutrophils # PT D-Dimer ABG pH POC ABG pCO2 POC ABG pO2 ABG pO2 ABG O2 Saturation ABG Base Excess ABG Hemoglobin ABG Oxyhemoglobin ABG Sodium ABG Chloride ABG Glucose Oxyhemoglobin Carboxyhemoglobin Sodium Potassium Chloride Carbon Dioxide BUN Creatinine Glucose POC Glucose 206 H 213 H 164 H Calcium Magnesium Ferritin AST Lactate Dehydrogenase Total Creatine Kinase Troponin T C-Reactive Protein Total Protein Albumin Triglycerides HDL Cholesterol Arterial Blood Glucose Arterial Blood Ionized Calcium Urine WBC (Auto) Salicylates Acetaminophen Coronavirus (PCR) 07/23/21 07/23/21 07/23/21 03:30 05:21 09:02 WBC RBC Hgb Hct RDW Lymph % (Auto) Lymph # (Auto) Seg Neutrophils % Seg Neutrophils # PT D-Dimer ABG pH POC ABG pCO2 POC ABG pO2 70.9 L ABG pO2 ABG O2 Saturation ABG Base Excess ABG Hemoglobin 10.9 L ABG Oxyhemoglobin 92.9 L ABG Sodium 130.2 L ABG Chloride 109.0 H ABG Glucose 177 H Oxyhemoglobin Carboxyhemoglobin 0.1 L Sodium Potassium 5.1 H Chloride Carbon Dioxide BUN 32 H Creatinine Glucose 200 H POC Glucose 191 H Calcium Magnesium Ferritin AST Lactate Dehydrogenase Total Creatine Kinase Troponin T C-Reactive Protein Total Protein Albumin Triglycerides HDL Cholesterol Arterial Blood Glucose 177 H Arterial Blood Ionized Calcium 4.3 L Urine WBC (Auto) Salicylates Acetaminophen Coronavirus (PCR) 07/23/21 09:02 WBC 13.8 H RBC Hgb Hct RDW 15.7 H Lymph % (Auto) Lymph # (Auto) Seg Neutrophils % Seg Neutrophils # PT D-Dimer ABG pH POC ABG pCO2 POC ABG pO2 ABG pO2 ABG O2 Saturation ABG Base Excess ABG Hemoglobin ABG Oxyhemoglobin ABG Sodium ABG Chloride ABG Glucose Oxyhemoglobin Carboxyhemoglobin Sodium Potassium Chloride Carbon Dioxide BUN Creatinine Glucose POC Glucose Calcium Magnesium Ferritin AST Lactate Dehydrogenase Total Creatine Kinase Troponin T C-Reactive Protein Total Protein Albumin Triglycerides HDL Cholesterol Arterial Blood Glucose Arterial Blood Ionized Calcium Urine WBC (Auto) Salicylates Acetaminophen Coronavirus (PCR)
[2021-07-23] MEDS ORDERED: SODIUM POLYSTYRENE 15 GM/60 ML ORAL LIQD PO ONE (11:00)
--- NOTE | 2021-07-23 12:04 | Progress Note ---
Assessment and Plan Assessment and plan: 55 yo F PMHx HTN, DM2 presents with severe COVID pneumonia. Acute hypoxic respiratory failure Severe COVID-19 pneumonia. Covid PCR positive on 07/19/2021. Severe sepsis/septic shock. Patient meets criteria given the tachycardia, tachypnea and diagnosis of pneumonia. Patient also hypotensive requiring pressors Bilateral pulmonary emboli. CTA reveals multiple segmental bilateral pulmonary emboli Acute kidney injury. Etiology secondary to sepsis/ATN. Diabetes mellitus type 2 Obesity. Moderate protein calorie malnutrition Hospital course: 07/18 admit to hospital via ER; being held in ER for ICU bed 07/19 remains in ER intubated and mechanically ventilated; covid pos 07-20 came to ICU overnight from ER; no bradycardic 07/21/2021. Patient remains orally intubated on mechanical ventilation AC mode rate of 26, tidal volume 420, FiO2 90% and PEEP of 16. Continue empiric antibiotics of ceftriaxone and azithromycin for 5 days total. Complete 5 days of remdesivir and continue IV steroids. Patient received Actemra 07/20/2021. Continue therapeutic anticoagulation with Lovenox 100 mg subcu twice daily. Continue sedation of fentanyl and Versed as tolerated. Continue pressors to maintain MAP > 65. Follow-up echocardiogram. 07/22/2021. Patient on mechanical ventilation AC mode rate of 26, FiO2 70% and PEEP of 16. Continue to wean FiO2 as tolerated. Continue antibiotics per ID recommendations. Patient currently with ceftriaxone and azithromycin. Complete 5 days of remdesivir. Continue IV steroids. Patient received Actemra on 07/20/2021. Continue prone positioning as able. Continue to trend inflammatory markers. 07/23/2021. Patient remains on mechanical ventilation AC mode rate of 26, tidal volume 420, FiO2 75% and PEEP of 16. Continue to wean FiO2 as tolerated. Continue antibiotics per ID recommendations. Patient currently with ceftriaxone and azithromycin. Complete 5 days of remdesivir. Continue IV steroids. Patient received Actemra on 07/20/2021. Continue prone positioning as able. Continue to trend inflammatory markers. ID and pulmonary following. The high probability of a clinically significant, sudden or life threatening deterioration of the [cardiac, respiratory and immunologic] system(s) required my full and direct attention, intervention and personal management. The aggregate critical care time was [32] minutes. This time is in addition to time spent performing reported procedures but includes the following: [x] Data Review and interpretation [x] Patient assessment and monitoring of vital signs [x] Documentation [x] Medication orders and management History Interval history: No new issues overnight. Hospitalist Physical - Constitutional Vitals: Temp Pulse Resp BP Pulse Ox 99.5 F 51 L 15 136/60 92 07/23/21 11:46 07/23/21 07:21 07/23/21 07:10 07/23/21 07:21 07/23/21 07:21 General appearance: Present: no acute distress, well-nourished, other (Patient orally intubated) - EENT Eyes: Present: PERRL, EOM intact ENT: hearing intact, clear oral mucosa, dentition normal - Neck Neck: Present: supple, normal ROM - Respiratory Respiratory effort: normal Respiratory: bilateral: CTA - Cardiovascular Rhythm: regular Heart Sounds: Present: S1 & S2. Absent: gallop, rub - Extremities Extremities: no ischemia, No edema, Full ROM - Abdominal General gastrointestinal: soft, non-tender, non-distended, normal bowel sounds - Integumentary Integumentary: Present: clear, warm, dry - Neurologic Neurologic: CNII-XII intact, moves all extremities HEART Score - HEART Score Troponin: Troponin T 0.106 ng/mL (0.00-0.029) H* 07/18/21 16:00 Results - Labs CBC & Chem 7: 07/23/21 09:02 07/23/21 09:02 Labs: Laboratory Last Values WBC 13.8 K/mm3 (4.5-11.0) H 07/23/21 09:02 RBC 3.78 M/mm3 (3.65-5.03) 07/23/21 09:02 Hgb 10.5 gm/dl (10.1-14.3) 07/23/21 09:02 Hct 32.5 % (30.3-42.9) 07/23/21 09:02 MCV 86 fl (79-97) 07/23/21 09:02 MCH 28 pg (28-32) 07/23/21 09:02 MCHC 32 % (30-34) 07/23/21 09:02 RDW 15.7 % (13.2-15.2) H 07/23/21 09:02 Plt Count 274 K/mm3 (140-440) 07/23/21 09:02 Lymph % (Auto) 10.7 % (13.4-35.0) L 07/19/21 04:59 [place] % (Auto) 4.8 % (0.0-7.3) 07/19/21 04:59 Eos % (Auto) 0.1 % (0.0-4.3) 07/19/21 04:59 Baso % (Auto) 0.1 % (0.0-1.8) 07/19/21 04:59 Lymph # (Auto) 1.1 K/mm3 (1.2-5.4) L 07/19/21 04:59 [place] # (Auto) 0.5 K/mm3 (0.0-0.8) 07/19/21 04:59 Eos # (Auto) 0.0 K/mm3 (0.0-0.4) 07/19/21 04:59 Baso # (Auto) 0.0 K/mm3 (0.0-0.1) 07/19/21 04:59 Seg Neutrophils % 84.3 % (40.0-70.0) H 07/19/21 04:59 Seg Neutrophils # 8.7 K/mm3 (1.8-7.7) H 07/19/21 04:59 PT 15.1 Sec. (12.2-14.9) H 07/18/21 16:00 INR 1.13 (0.87-1.13) 07/18/21 16:00 APTT 31.9 Sec. (24.2-36.6) 07/18/21 16:00 D-Dimer > 72029 ng/mlDDU (0-234) H 07/18/21 16:00 ABG pH 7.415 (7.320-7.450) 07/23/21 03:30 POC ABG pCO2 39.1 mmHg (32.0-48.0) 07/23/21 03:30 ABG pCO2 35.2 mm Hg 07/19/21 Unknown POC ABG pO2 70.9 mmHg (83-108) L 07/23/21 03:30 ABG pO2 64.2 mm Hg (80.0-90.0) L 07/19/21 Unknown POC ABG HCO3 24.5 07/23/21 03:30 ABG HCO3 20.1 mmol/L (20.0-26.0) 07/19/21 Unknown ABG O2 Saturation 93.3 (0-100) 07/23/21 03:30 ABG O2 Content 14.3 (0.0-44) 07/19/21 Unknown POC ABG Base Excess 0 07/23/21 03:30 ABG Base Excess -4.5 mmol/L (-2.0-3.0) L 07/19/21 Unknown ABG Hemoglobin 10.9 (12.0-17.5) L 07/23/21 03:30 ABG Oxyhemoglobin 92.9 (94-98) L 07/23/21 03:30 ABG Carboxyhemoglobin 0.8 % (0.0-5.0) 07/19/21 Unknown ABG Methemoglobin 0.3 (0.0-1.5) 07/23/21 03:30 ABG Sodium 130.2 mmol/L (136.0-145.0) L 07/23/21 03:30 ABG Potassium 4.4 mmol/L (3.40-4.50) 07/23/21 03:30 ABG Chloride 109.0 mmol/L (98-107) H 07/23/21 03:30 ABG Glucose 177 mg/dL (65-95) H 07/23/21 03:30 Oxyhemoglobin 91.9 % (95.0-99.0) L 07/19/21 Unknown Carboxyhemoglobin 0.1 (0.5-1.5) L 07/23/21 03:30 FiO2 100 % 07/19/21 Unknown FiO2 % 75.0 07/23/21 03:30 Sodium 140 mmol/L (137-145) 07/23/21 09:02 Potassium 5.1 mmol/L (3.6-5.0) H 07/23/21 09:02 Chloride 105.2 mmol/L (98-107) 07/23/21 09:02 Carbon Dioxide 28 mmol/L (22-30) D 07/23/21 09:02 Anion Gap 12 mmol/L 07/23/21 09:02 BUN 32 mg/dL (7-17) H 07/23/21 09:02 Creatinine 0.8 mg/dL (0.6-1.2) 07/23/21 09:02 Estimated GFR > 60 ml/min 07/23/21 09:02 BUN/Creatinine Ratio 40 % 07/23/21 09:02 Glucose 200 mg/dL (65-100) H 07/23/21 09:02 POC Glucose 208 mg/dL (70-105) H 07/23/21 11:34 Lactic Acid 1.40 mmol/L (0.7-2.0) 07/18/21 16:00 Calcium 8.4 mg/dL (8.4-10.2) 07/23/21 09:02 Phosphorus 3.70 mg/dL (2.5-4.5) 07/20/21 04:44 Magnesium 3.10 mg/dL (1.7-2.3) H 07/20/21 04:44 Ferritin 657.0 ng/mL (10.0-200.0) H 07/18/21 16:00 Total Bilirubin 0.20 mg/dL (0.1-1.2) 07/22/21 04:39 AST 38 units/L (5-40) 07/22/21 04:39 ALT 29 units/L (7-56) 07/22/21 04:39 Alkaline Phosphatase 83 units/L (35-129) 07/22/21 04:39 Ammonia 37.0 umol/L (25-60) 07/18/21 16:00 Lactate Dehydrogenase 705 units/L (91-180) H 07/18/21 16:00 Total Creatine Kinase 157 units/L (30-135) H 07/18/21 16:00 Troponin T 0.106 ng/mL (0.00-0.029) H* 07/18/21 16:00 C-Reactive Protein 33.00 mg/dL (0.00-1.30) H 07/18/21 16:00 Total Protein 6.4 g/dL (6.3-8.2) 07/22/21 04:39 Albumin 2.9 g/dL (3.9-5) L 07/22/21 04:39 Albumin/Globulin Ratio 0.8 % 07/22/21 04:39 Triglycerides 156 mg/dL (2-149) H 07/18/21 16:00 Cholesterol 127 mg/dL (50-199) 07/18/21 16:00 LDL Cholesterol Direct 64 mg/dL (50-130) 07/18/21 16:00 HDL Cholesterol 33 mg/dL (40-59) L 07/18/21 16:00 Cholesterol/HDL Ratio 3.84 % 07/18/21 16:00 Procalcitonin 1.28 ng/mL (<0.15) 07/18/21 16:00 TSH 0.469 mlU/mL (0.270-4.200) 07/21/21 04:52 Free T4 1.05 ng/dL (0.76-1.46) 07/21/21 04:52 Arterial Blood Glucose 177 mg/dL (65-95) H 07/23/21 03:30 Arterial Blood Ionized Calcium 4.3 mg/dL (4.6-5.3) L 07/23/21 03:30 Urine Color Yellow (Yellow) 07/18/21 Unknown Urine Turbidity Slightly-cloudy (Clear) 07/18/21 Unknown Urine pH 5.0 (5.0-7.0) 07/18/21 Unknown Ur Specific [place] 1.020 (1.003-1.030) 07/18/21 Unknown Urine Protein >500 mg/dL (Negative) 07/18/21 Unknown Urine Glucose (UA) Neg mg/dL (Negative) 07/18/21 Unknown Urine Ketones 20 mg/dL (Negative) 07/18/21 Unknown Urine Blood Neg (Negative) 07/18/21 Unknown Urine Nitrite Neg (Negative) 07/18/21 Unknown Urine Bilirubin Neg (Negative) 07/18/21 Unknown Urine Urobilinogen < 2.0 mg/dL (<2.0) 07/18/21 Unknown Ur Leukocyte Esterase Neg (Negative) 07/18/21 Unknown Urine WBC (Auto) 9.0 /HPF (0.0-6.0) H 07/18/21 Unknown Urine RBC (Auto) 2.0 /HPF (0.0-6.0) 07/18/21 Unknown U Epithel Cells (Auto) 1.0 /HPF (0-13.0) 07/18/21 Unknown Urine Bacteria (Auto) 1+ /HPF (Negative) 07/18/21 Unknown Amorphous Crystals Few 07/18/21 Unknown Urine Mucus Few /HPF 07/18/21 Unknown Salicylates < 0.3 mg/dL (2.8-20.0) L 07/18/21 16:00 Urine Opiates Screen Negative 07/18/21 Unknown Urine Methadone Screen Negative 07/18/21 Unknown Acetaminophen 5.7 ug/mL (10.0-30.0) L 07/18/21 16:00 Ur Barbiturates Screen Negative 07/18/21 Unknown Ur Phencyclidine Scrn Negative 07/18/21 Unknown Ur Amphetamines Screen Negative 07/18/21 Unknown U Benzodiazepines Scrn Negative 07/18/21 Unknown Urine Cocaine Screen Negative 07/18/21 Unknown U Marijuana (THC) Screen Negative 07/18/21 Unknown Drugs of Abuse Note Disclamer 07/18/21 Unknown Plasma/Serum Alcohol < 0.01 % (0-0.07) 07/18/21 16:00 Coronavirus (PCR) Positive (Negative) A 07/19/21 Unknown Blood Type O POSITIVE 07/18/21 16:05 Antibody Screen Negative 07/18/21 16:05 Microbiology: Microbiology 07/18/21 16:00 Peripheral/Venous Blood Culture - Preliminary NO GROWTH AFTER 4 DAYS 07/18/21 16:00 Peripheral/Venous Blood Culture - Preliminary NO GROWTH AFTER 4 DAYS Guzman/IV: Voiding Method Indwelling Catheter Active Medications - Current Medications Current Medications: Generic Name Dose Route Start Last Admin Trade Name Freq PRN Reason Stop Dose Admin Acetaminophen 650 mg 07/18/21 22:49 Acetaminophen 325 Mg Tab PO Q4H PRN Pain MILD(1-3)/Fever >100.5/URENA Lipase/Protease/Amylase 1 each 07/18/21 22:56 Lipase 10,500/Protease 25,000/Amylase 43,750 (Units) Dr Alvarado FEEDTUBE PRN PRN For Clogged Feeding Tube Enoxaparin Sodium 100 mg 07/19/21 10:00 07/22/21 21:03 Enoxaparin 100 Mg/1 Ml Inj SUB-Q 100 mg Q12HR NICOLE Administration Protocol Famotidine 20 mg 07/18/21 22:00 07/22/21 21:04 Famotidine 20 Mg/2 Ml Inj IV 20 mg BID NICOLE Administration Fentanyl 50 mcg 07/18/21 14:41 Fentanyl 100 Mcg/2 Ml Inj IV Q10MIN PRN ANALGESIA Hydrophilic Ointment 1 applic 07/18/21 14:41 Lip Therapy Vaseline TP Q2HR PRN Dry Lips Fentanyl Citrate 2,000 mcg in 100 mls @ 4.915 mls/hr 07/18/21 16:00 07/23/21 10:22 Fentanyl Drip Premix IV 4 mcg/kg/hr TITR NICOLE 19.66 mls/hr Titration Protocol 1 MCG/KG/HR Midazolam HCl 100 mg/ Sodium 100 mls @ 2 mls/hr 07/18/21 19:00 07/23/21 04:40 Chloride IV 5 mg/hr TITR NICOLE 5 mls/hr Titration Protocol 2 MG/HR Azithromycin 500 mg in 250 mls @ 250 mls/hr 07/19/21 20:00 07/22/21 21:51 Zithromax/Ns IV 07/23/21 20:59 Infused Q24H NICOLE Infusion Ceftriaxone Sodium 2 gm in 100 mls @ 200 mls/hr 07/19/21 20:00 07/22/21 21:22 Rocephin/Ns 2 Gm/100 Ml IV 07/23/21 20:29 Infused Q24H NICOLE Infusion Protocol REMDESIVIR 100 mg/ Sodium 250 mls @ 500 mls/hr 07/20/21 21:00 07/22/21 21:22 Chloride IV 07/23/21 21:29 Infused Q24HR@2100 NICOLE Infusion Insulin Human Lispro 0 unit 07/19/21 18:00 07/23/21 06:00 Insulin Lispro 100 Unit/Ml SUB-Q Not Given Q6H [facility] Protocol Methylprednisolone Sodium Succinate 60 mg 07/18/21 23:00 07/23/21 06:20 Methylprednisolone Sod Succinate 125 Mg/2 Ml Inj IV 60 mg Q8HR NICOLE Administration Midazolam HCl 2 mg 07/18/21 18:11 07/22/21 07:56 Midazolam 2 Mg/2 Ml Inj IV 2 mg Q10MIN PRN Administration Sedation Multi-Ingred Cream/Lotion/Oil/Oint 1 applic 07/18/21 14:41 Mineral Oil/Petrolatum, White Ophth Oint 3.5 Gm OU Q4HR PRN Dry Eye(s) Ondansetron HCl 4 mg 07/18/21 22:49 Ondansetron 4 Mg/2 Ml Inj IV Q8H PRN Nausea And Vomiting Senna/Docusate Sodium 1 tab 07/18/21 22:00 07/22/21 21:03 Sennosides/Docusate Sodium 8.6/50 Mg Tab FEEDTUBE 1 tab BID NICOLE Administration Simple Syrup 15 ml 07/18/21 22:56 Simple Syrup 15 Ml FEEDTUBE PRN PRN Hypoglycemia Simple Syrup 30 ml 07/18/21 22:56 Simple Syrup 15 Ml FEEDTUBE PRN PRN Hypoglycemia Sodium Bicarbonate 325 mg 07/18/21 22:56 Sodium Bicarbonate 325 Mg Tab FEEDTUBE PRN PRN For Clogged Feeding Tube Sodium Chloride 10 ml 07/19/21 10:00 07/22/21 21:04 Sodium Chloride 0.9% 10 Ml Flush Syringe IV 10 ml BID NICOLE Administration Sodium Chloride 10 ml 07/18/21 22:49 Sodium Chloride 0.9% 10 Ml Flush Syringe IV PRN PRN LINE FLUSH Sodium Chloride 5 ml 07/20/21 14:38 Sodium Chloride 0.9% 1000 Ml Iv Soln IV PRN PRN ART-LINE Nutrition/Malnutrition Assess - Dietary Evaluation Nutrition/Malnutrition Findings: Nutrition Notes Start: 07/19/21 09:15 Freq: Status: Active Protocol: Document 07/22/21 14:09 GURPREET (Rec: 07/22/21 14:14 [id number]) Nutrition Notes Initial or Follow up Reassessment Current Diagnosis Acute Kidney Injury,Diabetes, Hypertension,Respiratory Failure Other Pertinent Diagnosis COVID Current Diet Vital HP at 55 ml/hr Labs/Tests Na 143 BUN 46 BG 191 Pertinent Medications D5w at 75ml/hr Solu Medrol Height 5 ft 6 in Weight 101.7 kg [place] Body Weight (kg) 59.09 BMI 36.1 Weight change and time frame wt flucuations noted Weight Status Obese Subjective/Other Information RN reports Vital HP is running at 55 ml/hr and pt is tolerating it. Percent of energy/protein needs met: 93%/98% Burn Absent Trauma Absent Minimum of two criteria No #1 Nutrition Diagnosis Inadequate oral intake Diagnosis Progress(for reassessment Continues documentation) Is patient on ventilator? Yes Is Patient Ambulatory and/or Out of Bed No REE-([facility]-confined to bed) 1964.460 Kcal/Kg value to use for calculation 14 Approximate Energy Requirements Using 1424 kcal/Kg Calculation Used for Recommendations Kcal/kg Additional Notes Protein: (>2g/kg IBW) >118g Fluid: 1 ml/kcal or per MD Nutrition Intervention Change Diet Order: Continue Vital HP Nutrition Support: Vital HP at 55 ml/hr Flush 50 ml q4h Kcal 1,320 Protein (gm) 116 Fluid (mL) 1,104 Goal #1 Meet at least 75% of protein and kcal needs via PO and ONS intakes Anticipated Discharge Needs: Unable to determine at this time Follow-Up By: 07/24/21 Additional Comments F/u: TF tolerance
[2021-07-23] MEDS: SENNOSIDES/DOCUSATE SODIUM 8.6/50 MG TAB FEEDTUBE SCH ×2 (12:16→21:38)
[2021-07-23] MEDS: FAMOTIDINE 20 MG/2 ML INJ IV SCH ×2 (12:16→21:37)
[2021-07-23] MEDS: ENOXAPARIN 100 MG/1 ML INJ SUB-Q SCH ×2 (12:16→21:38)
--- NOTE | 2021-07-23 13:37 | Progress Note ---
Assessment and Plan Cultures: Blood culture 07/18/2021 no growth so far Urine culture 07/18/2021 no growth so far A/P: 55 yo F PMHx HTN, DM2 presents with severe COVID pneumonia. #Presumed COVID pneumonia: pending PCR, clinical presentation consistent with d iagnosis. Elevated procalcitonin as well, however in the setting of ION #Acute hypoxic respiratory failure: currently on the vent #Bilateral pulmonary emboli: anticoagulation per hoptal protocol #Tricuspid valve vegetation: possible seen on echo. #ION Recs: -Continue empiric ceftriaxone, added vancomycin -May be thrombotic lesion -Recommend cardiology consult -Complete 5 days remdesivir -Received Actemra 07/20/2021 -Anticoagulation per hospital protocol -Proning as able -Obtain q48-72h inflammatory markers - ferritin, Ddimer, CRP, LDH Thank you for the consult, we will continue to follow. Jessica Hassan MD [facility] ([facility] O: [phone] F: [phone] Subjective Date of service: 07/23/21 Interval history: Afebrile, white count 13.4 Objective - Exam Narrative Exam: Physical exam deferred to reduce risk of transmission of COVID-19. Please refer to primary team's note. - Constitutional Vitals: Vital Signs Temp Pulse Resp BP Pulse Ox 99.5 F 50 L 26 H 153/86 94 07/23/21 11:46 07/23/21 12:40 07/23/21 12:40 07/23/21 12:40 07/23/21 12:40 Temperature -Last 24 Hours Temperature 99.5 F Temperature 100.2 F Temperature 99.7 F Temperature 99.4 F Temperature 98.8 F Temperature 98.6 F - Labs CBC & Chem 7: 07/23/21 09:02 07/23/21 09:02 Labs: Abnormal lab results 07/22/21 07/22/21 07/23/21 Range/Units 17:54 23:34 03:30 WBC (4.5-11.0) K/mm3 RDW (13.2-15.2) % POC ABG pO2 70.9 L (83-108) mmHg ABG Hemoglobin 10.9 L (12.0-17.5) ABG Oxyhemoglobin 92.9 L (94-98) ABG Sodium 130.2 L (136.0-145.0) mmol/L ABG Chloride 109.0 H (98-107) mmol/L ABG Glucose 177 H (65-95) mg/dL Carboxyhemoglobin 0.1 L (0.5-1.5) Potassium (3.6-5.0) mmol/L BUN (7-17) mg/dL Glucose (65-100) mg/dL POC Glucose 213 H 164 H (70-105) mg/dL Arterial Blood Glucose 177 H (65-95) mg/dL Arterial Blood Ionized Calcium 4.3 L (4.6-5.3) mg/dL 07/23/21 07/23/21 07/23/21 Range/Units 05:21 09:02 09:02 WBC 13.8 H (4.5-11.0) K/mm3 RDW 15.7 H (13.2-15.2) % POC ABG pO2 (83-108) mmHg ABG Hemoglobin (12.0-17.5) ABG Oxyhemoglobin (94-98) ABG Sodium (136.0-145.0) mmol/L ABG Chloride (98-107) mmol/L ABG Glucose (65-95) mg/dL Carboxyhemoglobin (0.5-1.5) Potassium 5.1 H (3.6-5.0) mmol/L BUN 32 H (7-17) mg/dL Glucose 200 H (65-100) mg/dL POC Glucose 191 H (70-105) mg/dL Arterial Blood Glucose (65-95) mg/dL Arterial Blood Ionized Calcium (4.6-5.3) mg/dL 07/23/21 Range/Units 11:34 WBC (4.5-11.0) K/mm3 RDW (13.2-15.2) % POC ABG pO2 (83-108) mmHg ABG Hemoglobin (12.0-17.5) ABG Oxyhemoglobin (94-98) ABG Sodium (136.0-145.0) mmol/L ABG Chloride (98-107) mmol/L ABG Glucose (65-95) mg/dL Carboxyhemoglobin (0.5-1.5) Potassium (3.6-5.0) mmol/L BUN (7-17) mg/dL Glucose (65-100) mg/dL POC Glucose 208 H (70-105) mg/dL Arterial Blood Glucose (65-95) mg/dL Arterial Blood Ionized Calcium (4.6-5.3) mg/dL
[2021-07-23] MEDS ORDERED: VANCOMYCIN PHARMACY TO DOSE IV SCH (14:00)
[2021-07-23] MEDS: MIDAZOLAM 100 MG in SODIUM CHLORIDE 0.9% 80 ML IV SCH (14:19)
[2021-07-23] MEDS: VANCOMYCIN 2,000 MG in SODIUM CHLORIDE 0.9% 500 ML 500 ML IV SCH (15:31)
[2021-07-23] MEDS: AZITHROMYCIN/NS 500 MG/250 ML 500 MG/250 ML BAG IV SCH (20:24)
[2021-07-23] MEDS: cefTRIAXone/NS 2 GM/100 ML 2 GM/100 ML BAG IV SCH (20:24)
[2021-07-23] MEDS: REMDESIVIR 100 MG in SODIUM CHLORIDE 0.9% 250ML 250 ML IV SCH (20:25)
[2021-07-24] MEDS: INSULIN LISPRO 100 UNIT/ML SUB-Q SCH ×5 (00:11→23:58)
[2021-07-24] MEDS: FREE WATER PO SCH ×6 (02:10→22:42)
[2021-07-24] MEDS: fentaNYL DRIP Premix 2,000 MCG/100 ML BAG IV SCH ×5 (03:11→22:38)
[2021-07-24] MEDS: VANCOMYCIN 2,000 MG in SODIUM CHLORIDE 0.9% 500 ML 500 ML IV SCH ×2 (03:13→14:18)
[2021-07-24] MEDS: methylPREDNISolone Sod Succinate 125 MG/2 ML INJ IV SCH ×3 (06:38→22:37)
[2021-07-24 06:45] LABS: BUN/Creatinine Ratio 36; Blood Urea Nitrogen 29 mg/dL (7-17); Calcium 7.8 mg/dL (8.4-10.2); Hemolysis Index 29
[2021-07-24] MEDS: FAMOTIDINE 20 MG/2 ML INJ IV SCH ×2 (09:25→22:37)
[2021-07-24] MEDS: ENOXAPARIN 100 MG/1 ML INJ SUB-Q SCH ×2 (09:25→22:36)
[2021-07-24] MEDS: SENNOSIDES/DOCUSATE SODIUM 8.6/50 MG TAB FEEDTUBE SCH ×2 (09:25→22:36)
[2021-07-24] MEDS: MIDAZOLAM 100 MG in SODIUM CHLORIDE 0.9% 80 ML IV SCH ×2 (09:25→23:52)
--- NOTE | 2021-07-24 09:46 | Progress Note ---
Assessment and Plan Assessment and plan: 55 yo F PMHx HTN, DM2 presents with severe COVID pneumonia. Acute hypoxic respiratory failure Severe COVID-19 pneumonia. Covid PCR positive on 07/19/2021. Severe sepsis/septic shock. Patient meets criteria given the tachycardia, tachypnea and diagnosis of pneumonia. Patient also hypotensive requiring pressors Bilateral pulmonary emboli. CTA reveals multiple segmental bilateral pulmonary emboli Acute kidney injury. Etiology secondary to sepsis/ATN. Diabetes mellitus type 2 Obesity. Moderate protein calorie malnutrition Hospital course: 07/18 admit to hospital via ER; being held in ER for ICU bed 07/19 remains in ER intubated and mechanically ventilated; covid pos 07-20 came to ICU overnight from ER; no bradycardic 07/21/2021. Patient remains orally intubated on mechanical ventilation AC mode rate of 26, tidal volume 420, FiO2 90% and PEEP of 16. Continue empiric antibiotics of ceftriaxone and azithromycin for 5 days total. Complete 5 days of remdesivir and continue IV steroids. Patient received Actemra 07/20/2021. Continue therapeutic anticoagulation with Lovenox 100 mg subcu twice daily. Continue sedation of fentanyl and Versed as tolerated. Continue pressors to maintain MAP > 65. Follow-up echocardiogram. 07/22/2021. Patient on mechanical ventilation AC mode rate of 26, FiO2 70% and PEEP of 16. Continue to wean FiO2 as tolerated. Continue antibiotics per ID recommendations. Patient currently with ceftriaxone and azithromycin. Complete 5 days of remdesivir. Continue IV steroids. Patient received Actemra on 07/20/2021. Continue prone positioning as able. Continue to trend inflammatory markers. 07/23/2021. Patient remains on mechanical ventilation AC mode rate of 26, tidal volume 420, FiO2 75% and PEEP of 16. Continue to wean FiO2 as tolerated. Continue antibiotics per ID recommendations. Patient currently with ceftriaxone and azithromycin. Complete 5 days of remdesivir. Continue IV steroids. Patient received Actemra on 07/20/2021. Continue prone positioning as able. Continue to trend inflammatory markers. ID and pulmonary following. 07/24/2021. Patient remains on mechanical ventilation AC mode rate of 26, tidal volume 420, FiO2 70% and PEEP of 16. Patient with possible tricuspid valve vegetation seen on echocardiogram. Consult cardiology for further evaluation. Continue IV antibiotics per ID recommendations. Prone position is possible. Continue to trend inflammatory markers. The high probability of a clinically significant, sudden or life threatening deterioration of the [cardiac, respiratory and immunologic] system(s) required my full and direct attention, intervention and personal management. The aggregate critical care time was [32] minutes. This time is in addition to time spent performing reported procedures but includes the following: [x] Data Review and interpretation [x] Patient assessment and monitoring of vital signs [x] Documentation [x] Medication orders and management History Interval history: No new issues overnight. Hospitalist Physical - Constitutional Vitals: Temp Pulse Resp BP Pulse Ox 99.1 F 51 L 26 H 114/65 92 07/24/21 07:00 07/24/21 08:51 07/24/21 08:51 07/24/21 08:51 07/24/21 08:51 General appearance: Present: no acute distress, well-nourished, other (Patient orally intubated) - EENT Eyes: Present: PERRL, EOM intact ENT: hearing intact, clear oral mucosa, dentition normal - Neck Neck: Present: supple, normal ROM - Respiratory Respiratory effort: normal Respiratory: bilateral: CTA - Cardiovascular Rhythm: regular Heart Sounds: Present: S1 & S2. Absent: gallop, rub - Extremities Extremities: no ischemia, No edema, Full ROM - Abdominal General gastrointestinal: soft, non-tender, non-distended, normal bowel sounds - Integumentary Integumentary: Present: clear, warm, dry - Neurologic Neurologic: CNII-XII intact, moves all extremities HEART Score - HEART Score Troponin: Troponin T 0.106 ng/mL (0.00-0.029) H* 07/18/21 16:00 Results - Labs CBC & Chem 7: 07/23/21 09:02 07/24/21 05:01 Labs: Laboratory Last Values WBC 13.8 K/mm3 (4.5-11.0) H 07/23/21 09:02 RBC 3.78 M/mm3 (3.65-5.03) 07/23/21 09:02 Hgb 10.5 gm/dl (10.1-14.3) 07/23/21 09:02 Hct 32.5 % (30.3-42.9) 07/23/21 09:02 MCV 86 fl (79-97) 07/23/21 09:02 MCH 28 pg (28-32) 07/23/21 09:02 MCHC 32 % (30-34) 07/23/21 09:02 RDW 15.7 % (13.2-15.2) H 07/23/21 09:02 Plt Count 274 K/mm3 (140-440) 07/23/21 09:02 Lymph % (Auto) 10.7 % (13.4-35.0) L 07/19/21 04:59 [place] % (Auto) 4.8 % (0.0-7.3) 07/19/21 04:59 Eos % (Auto) 0.1 % (0.0-4.3) 07/19/21 04:59 Baso % (Auto) 0.1 % (0.0-1.8) 07/19/21 04:59 Lymph # (Auto) 1.1 K/mm3 (1.2-5.4) L 07/19/21 04:59 [place] # (Auto) 0.5 K/mm3 (0.0-0.8) 07/19/21 04:59 Eos # (Auto) 0.0 K/mm3 (0.0-0.4) 07/19/21 04:59 Baso # (Auto) 0.0 K/mm3 (0.0-0.1) 07/19/21 04:59 Seg Neutrophils % 84.3 % (40.0-70.0) H 07/19/21 04:59 Seg Neutrophils # 8.7 K/mm3 (1.8-7.7) H 07/19/21 04:59 PT 15.1 Sec. (12.2-14.9) H 07/18/21 16:00 INR 1.13 (0.87-1.13) 07/18/21 16:00 APTT 31.9 Sec. (24.2-36.6) 07/18/21 16:00 D-Dimer > 77573 ng/mlDDU (0-234) H 07/18/21 16:00 ABG pH 7.386 (7.320-7.450) 07/24/21 03:06 POC ABG pCO2 46.5 mmHg (32.0-48.0) 07/24/21 03:06 ABG pCO2 35.2 mm Hg 07/19/21 Unknown POC ABG pO2 51.1 mmHg (83-108) L 07/24/21 03:06 ABG pO2 64.2 mm Hg (80.0-90.0) L 07/19/21 Unknown POC ABG HCO3 27.3 07/24/21 03:06 ABG HCO3 20.1 mmol/L (20.0-26.0) 07/19/21 Unknown ABG O2 Saturation 85.6 (0-100) 07/24/21 03:06 ABG O2 Content 14.3 (0.0-44) 07/19/21 Unknown POC ABG Base Excess 1.7 07/24/21 03:06 ABG Base Excess -4.5 mmol/L (-2.0-3.0) L 07/19/21 Unknown ABG Hemoglobin 12.4 (12.0-17.5) 07/24/21 03:06 ABG Oxyhemoglobin 85.0 (94-98) L 07/24/21 03:06 ABG Carboxyhemoglobin 0.8 % (0.0-5.0) 07/19/21 Unknown ABG Methemoglobin 0.3 (0.0-1.5) 07/24/21 03:06 ABG Sodium 135.5 mmol/L (136.0-145.0) L 07/24/21 03:06 ABG Potassium 3.9 mmol/L (3.40-4.50) 07/24/21 03:06 ABG Chloride 106.0 mmol/L (98-107) 07/24/21 03:06 ABG Glucose 131 mg/dL (65-95) H 07/24/21 03:06 Oxyhemoglobin 91.9 % (95.0-99.0) L 07/19/21 Unknown Carboxyhemoglobin 0.4 (0.5-1.5) L 07/24/21 03:06 FiO2 100 % 07/19/21 Unknown FiO2 % 70.0 07/24/21 03:06 Sodium 142 mmol/L (137-145) 07/24/21 05:01 Potassium 4.5 mmol/L (3.6-5.0) 07/24/21 05:01 Chloride 105.9 mmol/L (98-107) 07/24/21 05:01 Carbon Dioxide 27 mmol/L (22-30) 07/24/21 05:01 Anion Gap 14 mmol/L 07/24/21 05:01 BUN 29 mg/dL (7-17) H 07/24/21 05:01 Creatinine 0.8 mg/dL (0.6-1.2) 07/24/21 05:01 Estimated GFR > 60 ml/min 07/24/21 05:01 BUN/Creatinine Ratio 36 % 07/24/21 05:01 Glucose 132 mg/dL (65-100) H 07/24/21 05:01 POC Glucose 125 mg/dL (70-105) H 07/24/21 05:06 Lactic Acid 1.40 mmol/L (0.7-2.0) 07/18/21 16:00 Calcium 7.8 mg/dL (8.4-10.2) L 07/24/21 05:01 Phosphorus 3.70 mg/dL (2.5-4.5) 07/20/21 04:44 Magnesium 3.10 mg/dL (1.7-2.3) H 07/20/21 04:44 Ferritin 657.0 ng/mL (10.0-200.0) H 07/18/21 16:00 Total Bilirubin 0.20 mg/dL (0.1-1.2) 07/22/21 04:39 AST 38 units/L (5-40) 07/22/21 04:39 ALT 29 units/L (7-56) 07/22/21 04:39 Alkaline Phosphatase 83 units/L (35-129) 07/22/21 04:39 Ammonia 37.0 umol/L (25-60) 07/18/21 16:00 Lactate Dehydrogenase 705 units/L (91-180) H 07/18/21 16:00 Total Creatine Kinase 157 units/L (30-135) H 07/18/21 16:00 Troponin T 0.106 ng/mL (0.00-0.029) H* 07/18/21 16:00 C-Reactive Protein 33.00 mg/dL (0.00-1.30) H 07/18/21 16:00 Total Protein 6.4 g/dL (6.3-8.2) 07/22/21 04:39 Albumin 2.9 g/dL (3.9-5) L 07/22/21 04:39 Albumin/Globulin Ratio 0.8 % 07/22/21 04:39 Triglycerides 156 mg/dL (2-149) H 07/18/21 16:00 Cholesterol 127 mg/dL (50-199) 07/18/21 16:00 LDL Cholesterol Direct 64 mg/dL (50-130) 07/18/21 16:00 HDL Cholesterol 33 mg/dL (40-59) L 07/18/21 16:00 Cholesterol/HDL Ratio 3.84 % 07/18/21 16:00 Procalcitonin 1.28 ng/mL (<0.15) 07/18/21 16:00 TSH 0.469 mlU/mL (0.270-4.200) 07/21/21 04:52 Free T4 1.05 ng/dL (0.76-1.46) 07/21/21 04:52 Arterial Blood Glucose 131 mg/dL (65-95) H 07/24/21 03:06 Arterial Blood Ionized Calcium 4.5 mg/dL (4.6-5.3) L 07/24/21 03:06 Urine Color Yellow (Yellow) 07/18/21 Unknown Urine Turbidity Slightly-cloudy (Clear) 07/18/21 Unknown Urine pH 5.0 (5.0-7.0) 07/18/21 Unknown Ur Specific [place] 1.020 (1.003-1.030) 07/18/21 Unknown Urine Protein >500 mg/dL (Negative) 07/18/21 Unknown Urine Glucose (UA) Neg mg/dL (Negative) 07/18/21 Unknown Urine Ketones 20 mg/dL (Negative) 07/18/21 Unknown Urine Blood Neg (Negative) 07/18/21 Unknown Urine Nitrite Neg (Negative) 07/18/21 Unknown Urine Bilirubin Neg (Negative) 07/18/21 Unknown Urine Urobilinogen < 2.0 mg/dL (<2.0) 07/18/21 Unknown Ur Leukocyte Esterase Neg (Negative) 07/18/21 Unknown Urine WBC (Auto) 9.0 /HPF (0.0-6.0) H 07/18/21 Unknown Urine RBC (Auto) 2.0 /HPF (0.0-6.0) 07/18/21 Unknown U Epithel Cells (Auto) 1.0 /HPF (0-13.0) 07/18/21 Unknown Urine Bacteria (Auto) 1+ /HPF (Negative) 07/18/21 Unknown Amorphous Crystals Few 07/18/21 Unknown Urine Mucus Few /HPF 07/18/21 Unknown Salicylates < 0.3 mg/dL (2.8-20.0) L 07/18/21 16:00 Urine Opiates Screen Negative 07/18/21 Unknown Urine Methadone Screen Negative 07/18/21 Unknown Acetaminophen 5.7 ug/mL (10.0-30.0) L 07/18/21 16:00 Ur Barbiturates Screen Negative 07/18/21 Unknown Ur Phencyclidine Scrn Negative 07/18/21 Unknown Ur Amphetamines Screen Negative 07/18/21 Unknown U Benzodiazepines Scrn Negative 07/18/21 Unknown Urine Cocaine Screen Negative 07/18/21 Unknown U Marijuana (THC) Screen Negative 07/18/21 Unknown Drugs of Abuse Note Disclamer 07/18/21 Unknown Plasma/Serum Alcohol < 0.01 % (0-0.07) 07/18/21 16:00 Coronavirus (PCR) Positive (Negative) A 07/19/21 Unknown Blood Type O POSITIVE 07/18/21 16:05 Antibody Screen Negative 07/18/21 16:05 Microbiology: Microbiology 07/18/21 16:00 Peripheral/Venous Blood Culture - Final NO GROWTH AFTER 5 DAYS 07/18/21 16:00 Peripheral/Venous Blood Culture - Final NO GROWTH AFTER 5 DAYS Guzman/IV: Voiding Method Indwelling Catheter Active Medications - Current Medications Current Medications: Generic Name Dose Route Start Last Admin Trade Name Freq PRN Reason Stop Dose Admin Acetaminophen 650 mg 07/18/21 22:49 Acetaminophen 325 Mg Tab PO Q4H PRN Pain MILD(1-3)/Fever >100.5/URENA Lipase/Protease/Amylase 1 each 07/18/21 22:56 Lipase 10,500/Protease 25,000/Amylase 43,750 (Units) Dr Alvarado FEEDTUBE PRN PRN For Clogged Feeding Tube Enoxaparin Sodium 100 mg 07/19/21 10:00 07/24/21 09:25 Enoxaparin 100 Mg/1 Ml Inj SUB-Q 100 mg Q12HR NCIOLE Administration Protocol Famotidine 20 mg 07/18/21 22:00 07/24/21 09:25 Famotidine 20 Mg/2 Ml Inj IV 20 mg BID NICOLE Administration Fentanyl 50 mcg 07/18/21 14:41 Fentanyl 100 Mcg/2 Ml Inj IV Q10MIN PRN ANALGESIA Hydrophilic Ointment 1 applic 07/18/21 14:41 Lip Therapy Vaseline TP Q2HR PRN Dry Lips Fentanyl Citrate 2,000 mcg in 100 mls @ 4.915 mls/hr 07/18/21 16:00 07/24/21 09:26 Fentanyl Drip Premix IV 4 mcg/kg/hr TITR NICOLE 19.66 mls/hr Administration Protocol 1 MCG/KG/HR Midazolam HCl 100 mg/ Sodium 100 mls @ 2 mls/hr 07/18/21 19:00 07/24/21 09:25 Chloride IV 5 mg/hr TITR NICOLE 5 mls/hr Administration Protocol 2 MG/HR Ceftriaxone Sodium 2 gm in 100 mls @ 200 mls/hr 07/24/21 22:00 Rocephin/Ns 2 Gm/100 Ml IV Q24H [facility] Protocol Vancomycin HCl 2,000 mg/ 540 mls @ 250 mls/hr 07/23/21 15:00 07/24/21 05:39 Sodium Chloride IV Infused Q12H [facility] Infusion Insulin Human Lispro 0 unit 07/19/21 18:00 07/24/21 06:06 Insulin Lispro 100 Unit/Ml SUB-Q Not Given Q6H [facility] Protocol Methylprednisolone Sodium Succinate 60 mg 07/18/21 23:00 07/24/21 06:38 Methylprednisolone Sod Succinate 125 Mg/2 Ml Inj IV 60 mg Q8HR [facility] Administration Midazolam HCl 2 mg 07/18/21 18:11 07/22/21 07:56 Midazolam 2 Mg/2 Ml Inj IV 2 mg Q10MIN PRN Administration Sedation Multi-Ingred Cream/Lotion/Oil/Oint 1 applic 07/18/21 14:41 Mineral Oil/Petrolatum, White Ophth Oint 3.5 Gm OU Q4HR PRN Dry Eye(s) Ondansetron HCl 4 mg 07/18/21 22:49 Ondansetron 4 Mg/2 Ml Inj IV Q8H PRN Nausea And Vomiting Senna/Docusate Sodium 1 tab 07/18/21 22:00 07/24/21 09:25 Sennosides/Docusate Sodium 8.6/50 Mg Tab FEEDTUBE 1 tab BID NICOLE Administration Simple Syrup 15 ml 07/18/21 22:56 Simple Syrup 15 Ml FEEDTUBE PRN PRN Hypoglycemia Simple Syrup 30 ml 07/18/21 22:56 Simple Syrup 15 Ml FEEDTUBE PRN PRN Hypoglycemia Sodium Bicarbonate 325 mg 07/18/21 22:56 Sodium Bicarbonate 325 Mg Tab FEEDTUBE PRN PRN For Clogged Feeding Tube Sodium Chloride 10 ml 07/19/21 10:00 07/24/21 09:26 Sodium Chloride 0.9% 10 Ml Flush Syringe IV 10 ml BID NICOLE Administration Sodium Chloride 10 ml 07/18/21 22:49 Sodium Chloride 0.9% 10 Ml Flush Syringe IV PRN PRN LINE FLUSH Sodium Chloride 5 ml 07/20/21 14:38 Sodium Chloride 0.9% 1000 Ml Iv Soln IV PRN PRN ART-LINE Nutrition/Malnutrition Assess - Dietary Evaluation Nutrition/Malnutrition Findings: Nutrition Notes Start: 07/19/21 09:15 Freq: Status: Active Protocol: Document 07/22/21 14:09 GURPREET (Rec: 07/22/21 14:14 GURPREET [id number]) Nutrition Notes Initial or Follow up Reassessment Current Diagnosis Acute Kidney Injury,Diabetes, Hypertension,Respiratory Failure Other Pertinent Diagnosis COVID Current Diet Vital HP at 55 ml/hr Labs/Tests Na 143 BUN 46 BG 191 Pertinent Medications D5w at 75ml/hr Solu Medrol Height 5 ft 6 in Weight 101.7 kg [place] Body Weight (kg) 59.09 BMI 36.1 Weight change and time frame wt flucuations noted Weight Status Obese Subjective/Other Information RN reports Vital HP is running at 55 ml/hr and pt is tolerating it. Percent of energy/protein needs met: 93%/98% Burn Absent Trauma Absent Minimum of two criteria No #1 Nutrition Diagnosis Inadequate oral intake Diagnosis Progress(for reassessment Continues documentation) Is patient on ventilator? Yes Is Patient Ambulatory and/or Out of Bed No REE-([facility]-confined to bed) 1964.460 Kcal/Kg value to use for calculation 14 Approximate Energy Requirements Using 1424 kcal/Kg Calculation Used for Recommendations Kcal/kg Additional Notes Protein: (>2g/kg IBW) >118g Fluid: 1 ml/kcal or per MD Nutrition Intervention Change Diet Order: Continue Vital HP Nutrition Support: Vital HP at 55 ml/hr Flush 50 ml q4h Kcal 1,320 Protein (gm) 116 Fluid (mL) 1,104 Goal #1 Meet at least 75% of protein and kcal needs via PO and ONS intakes Anticipated Discharge Needs: Unable to determine at this time Follow-Up By: 07/24/21 Additional Comments F/u: TF tolerance
--- NOTE | 2021-07-24 14:33 | Progress Note ---
Assessment and Plan Assessment and Plan 55 y/o obese female with acute respiratory failure, pulmonary embolism, now with renal failure, most likely all secondary to COVID 19 07/24/2021: Improving oxygenation. We will continue to wean FiO2 and PEEP. 07/23/21: Dropped FiO2 to 70. Hopeful to wean back down. Keep peep elevated until FiO2 at 50-55%. Continue High dose steroids. Keep RASS at -4. Na is better. Will stop D5W. Updated Daughter (Linda) and God[employer]aughter over the phone. If someone could please call them at least one day over the weekend I will call them again on Monday. Prognosis remains very guarded. Explained to them the high mortality rate associated with COVID and mechanical ventilation. 07/22/21: Dropped Fio2 to 65. Continue to wean for sats >88%. keep elevated peep until FiO2 around 50-55% so hopefully in the next 24-36 hours we can get there. Continue sedation to keep rass at -4. Continue high dose steroids. Will continue D5W for now until Free water can control sodium. need CBC in the am along with BMP. Prognosis still remains guarded. Continue lovenox 07/21/21: Dropped FiO2 to 80%. Continue to wean for sats >88%. Keep peep elevated until FiO2 around 50-55%. Continue remdesivir and adequate levels of sedation. Continue high dose steroids. No proning for now. Continue therap eutic lovenox. Prognosis remains guarded. 07/20/21: COVID positive. Started Remdesivir. Renal function improved. COntinue high dose steroids at current dosing for now. Suggest repeat ABG later this afternoon if able, may need art line but BP stable for now. No proning. Agree with therapeutic Lovenox. Guarded prognosis. 1. Follow up COVID testing, continue isolation 2. Agree with high dose IV steroids, if positive, will change to solumedrol [id number] 3. If positive then would need remdesivir and Actemra, hopefully still a candidate given bump in renal function 4. Unable to prone patient at moment, but did increase PEEP to 20 and ordered repeat ABG at 1400 5 Very very guarded prognosis CCT 31 minutes Subjective Date of service: 07/24/21 Interval history: No significant change PaO2 in morning blood gases show fifty-one however saturation has been in high 90s. Has been able to wean down FiO2. Objective - Exam Narrative Exam: Physical exam deferred to reduce risk of transmission of COVID-19. Please refer to primary team's note. Vital Signs - 12hr 07/24/21 07/24/21 07/24/21 02:40 02:50 03:00 Temperature Pulse Rate 48 L 45 L 89 Pulse Rate [ From Monitor] Respiratory 26 H 26 H 10 L Rate Blood Pressure 131/74 131/74 131/74 O2 Sat by Pulse 96 96 96 Oximetry 07/24/21 07/24/21 07/24/21 03:08 03:10 03:20 Temperature 99.2 F Pulse Rate 68 58 L Pulse Rate [ From Monitor] Respiratory 18 26 H Rate Blood Pressure 174/125 174/125 O2 Sat by Pulse 97 92 Oximetry 07/24/21 07/24/21 07/24/21 03:30 03:40 03:50 Temperature Pulse Rate 71 59 L 71 Pulse Rate [ From Monitor] Respiratory 17 28 H 21 Rate Blood Pressure 131/74 131/74 131/74 O2 Sat by Pulse 91 88 86 Oximetry 07/24/21 07/24/21 07/24/21 04:00 04:10 04:14 Temperature Pulse Rate 67 62 67 Pulse Rate [ 62 From Monitor] Respiratory 18 24 Rate Blood Pressure 118/75 118/75 118/75 O2 Sat by Pulse 96 85 92 Oximetry 07/24/21 07/24/21 07/24/21 04:20 04:30 04:40 Temperature Pulse Rate 61 90 64 Pulse Rate [ From Monitor] Respiratory 26 H 20 26 H Rate Blood Pressure 118/75 118/75 118/75 O2 Sat by Pulse 90 87 84 Oximetry 07/24/21 07/24/21 07/24/21 04:50 05:00 05:10 Temperature Pulse Rate 61 77 60 Pulse Rate [ From Monitor] Respiratory 26 H 16 27 H Rate Blood Pressure 118/75 118/75 118/75 O2 Sat by Pulse 85 98 89 Oximetry 07/24/21 07/24/21 07/24/21 05:20 05:30 05:40 Temperature Pulse Rate 64 62 61 Pulse Rate [ From Monitor] Respiratory 26 H 26 H 26 H Rate Blood Pressure 118/75 118/75 118/75 O2 Sat by Pulse 86 85 85 Oximetry 07/24/21 07/24/21 07/24/21 05:50 06:00 06:10 Temperature Pulse Rate 59 L 65 57 L Pulse Rate [ From Monitor] Respiratory 26 H 24 26 H Rate Blood Pressure 118/75 110/80 110/80 O2 Sat by Pulse 90 87 93 Oximetry 07/24/21 07/24/21 07/24/21 06:20 06:30 06:40 Temperature Pulse Rate 56 L 54 L 53 L Pulse Rate [ From Monitor] Respiratory 26 H 26 H 26 H Rate Blood Pressure 110/80 110/80 110/80 O2 Sat by Pulse 96 95 93 Oximetry 07/24/21 07/24/21 07/24/21 06:50 07:00 07:10 Temperature 99.1 F Pulse Rate 53 L 54 L 51 L Pulse Rate [ From Monitor] Respiratory 26 H 26 H 26 H Rate Blood Pressure 110/80 110/65 110/65 O2 Sat by Pulse 93 92 91 Oximetry 07/24/21 07/24/21 07/24/21 07:20 07:30 07:40 Temperature Pulse Rate 50 L 49 L 48 L Pulse Rate [ From Monitor] Respiratory 26 H 26 H 26 H Rate Blood Pressure 110/65 110/65 110/65 O2 Sat by Pulse 90 91 91 Oximetry 07/24/21 07/24/21 07/24/21 07:50 07:54 08:00 Temperature Pulse Rate 48 L 90 49 L Pulse Rate [ 68 From Monitor] Respiratory 26 H 26 H Rate Blood Pressure 110/65 110/65 114/65 O2 Sat by Pulse 90 91 88 Oximetry 07/24/21 07/24/21 07/24/21 08:10 08:21 08:31 Temperature Pulse Rate 48 L 46 L 49 L Pulse Rate [ From Monitor] Respiratory 26 H 26 H 26 H Rate Blood Pressure 114/65 114/65 O2 Sat by Pulse 91 92 91 Oximetry 07/24/21 07/24/21 07/24/21 08:41 08:51 09:00 Temperature Pulse Rate 50 L 51 L 48 L Pulse Rate [ From Monitor] Respiratory 26 H 26 H 26 H Rate Blood Pressure 114/65 114/65 110/61 O2 Sat by Pulse 92 92 92 Oximetry 07/24/21 07/24/21 07/24/21 09:11 09:21 09:31 Temperature Pulse Rate 50 L 48 L 49 L Pulse Rate [ From Monitor] Respiratory 26 H 26 H 26 H Rate Blood Pressure 110/61 110/61 110/61 O2 Sat by Pulse 94 94 94 Oximetry 07/24/21 07/24/21 07/24/21 09:41 09:51 10:00 Temperature Pulse Rate 51 L 49 L 48 L Pulse Rate [ From Monitor] Respiratory 26 H 26 H 26 H Rate Blood Pressure 110/61 110/61 118/68 O2 Sat by Pulse 94 94 92 Oximetry 07/24/21 07/24/21 07/24/21 10:11 10:21 10:31 Temperature Pulse Rate 47 L 50 L 48 L Pulse Rate [ From Monitor] Respiratory 26 H 26 H 26 H Rate Blood Pressure 118/68 118/68 118/68 O2 Sat by Pulse 94 94 95 Oximetry 07/24/21 07/24/21 07/24/21 10:41 10:51 11:00 Temperature 99.2 F Pulse Rate 47 L 47 L 46 L Pulse Rate [ From Monitor] Respiratory 26 H 26 H 26 H Rate Blood Pressure 118/68 118/68 106/60 O2 Sat by Pulse 95 95 93 Oximetry 07/24/21 07/24/21 07/24/21 11:11 11:21 11:31 Temperature Pulse Rate 48 L 48 L 48 L Pulse Rate [ From Monitor] Respiratory 26 H 26 H 26 H Rate Blood Pressure 106/60 106/60 106/60 O2 Sat by Pulse 95 95 95 Oximetry 07/24/21 07/24/21 07/24/21 11:41 11:51 11:52 Temperature Pulse Rate 45 L 45 L 44 L Pulse Rate [ From Monitor] Respiratory 26 H 26 H Rate Blood Pressure 106/60 106/60 106/60 O2 Sat by Pulse 96 96 96 Oximetry 07/24/21 07/24/21 12:00 12:11 Temperature Pulse Rate 44 L 45 L Pulse Rate [ From Monitor] Respiratory 26 H 26 H Rate Blood Pressure 117/69 117/69 O2 Sat by Pulse 94 96 Oximetry Constitutional: no acute distress, comatose ENT: other (orally intubated and sedated) Ascultation: Bilateral: diminished breath sounds Cardiovascular: regular rate and rhythm Gastrointestinal: normoactive bowel sounds, soft, non-tender Integumentary: normal Extremities: no cyanosis Neurologic: other (Sedated) CBC and BMP: 07/23/21 09:02 07/24/21 05:01 ABG, PT/INR, D-dimer: ABG ABG pH 7.386 (7.320-7.450) 07/24/21 03:06 POC ABG pCO2 46.5 mmHg (32.0-48.0) 07/24/21 03:06 ABG pCO2 35.2 mm Hg 07/19/21 Unknown POC ABG pO2 51.1 mmHg (83-108) L 07/24/21 03:06 ABG pO2 64.2 mm Hg (80.0-90.0) L 07/19/21 Unknown POC ABG HCO3 27.3 07/24/21 03:06 ABG O2 Saturation 85.6 (0-100) 07/24/21 03:06 PT/INR, D-dimer PT 15.1 Sec. (12.2-14.9) H 07/18/21 16:00 INR 1.13 (0.87-1.13) 07/18/21 16:00 D-Dimer > 15869 ng/mlDDU (0-234) H 07/18/21 16:00 Abnormal lab findings: Abnormal Labs 07/18/21 07/18/21 07/18/21 16:00 16:00 16:00 WBC RBC Hgb Hct RDW 15.3 H Lymph % (Auto) 7.9 L Lymph # (Auto) 0.8 L Seg Neutrophils % 86.3 H Seg Neutrophils # 9.0 H PT 15.1 H D-Dimer > 79422 H ABG pH POC ABG pCO2 POC ABG pO2 ABG pO2 ABG O2 Saturation ABG Base Excess ABG Hemoglobin ABG Oxyhemoglobin ABG Sodium ABG Chloride ABG Glucose Oxyhemoglobin Carboxyhemoglobin Sodium Potassium 3.5 L Chloride Carbon Dioxide 20 L BUN 19 H Creatinine Glucose 140 H POC Glucose Calcium Magnesium Ferritin AST 43 H Lactate Dehydrogenase 705 H Total Creatine Kinase 157 H Troponin T 0.106 H* C-Reactive Protein 33.00 H Total Protein Albumin 3.2 L Triglycerides 156 H HDL Cholesterol 33 L Arterial Blood Glucose Arterial Blood Ionized Calcium Urine WBC (Auto) Salicylates Acetaminophen Coronavirus (PCR) 07/18/21 07/18/21 07/18/21 16:00 16:00 16:00 WBC RBC Hgb Hct RDW Lymph % (Auto) Lymph # (Auto) Seg Neutrophils % Seg Neutrophils # PT D-Dimer ABG pH POC ABG pCO2 POC ABG pO2 ABG pO2 ABG O2 Saturation ABG Base Excess ABG Hemoglobin ABG Oxyhemoglobin ABG Sodium ABG Chloride ABG Glucose Oxyhemoglobin Carboxyhemoglobin Sodium Potassium Chloride Carbon Dioxide BUN Creatinine Glucose POC Glucose Calcium Magnesium Ferritin 657.0 H AST Lactate Dehydrogenase Total Creatine Kinase Troponin T C-Reactive Protein Total Protein Albumin Triglycerides HDL Cholesterol Arterial Blood Glucose Arterial Blood Ionized Calcium Urine WBC (Auto) Salicylates < 0.3 L Acetaminophen 5.7 L Coronavirus (PCR) 07/18/21 07/18/21 07/19/21 Unknown Unknown 04:33 WBC RBC Hgb Hct RDW Lymph % (Auto) Lymph # (Auto) Seg Neutrophils % Seg Neutrophils # PT D-Dimer ABG pH 7.275 L POC ABG pCO2 POC ABG pO2 68.7 L 53.1 L ABG pO2 ABG O2 Saturation ABG Base Excess ABG Hemoglobin ABG Oxyhemoglobin 88.3 L 85.3 L ABG Sodium ABG Chloride 109.0 H ABG Glucose 170 H 150 H Oxyhemoglobin Carboxyhemoglobin 0 L 0.3 L Sodium Potassium Chloride Carbon Dioxide BUN Creatinine Glucose POC Glucose Calcium Magnesium Ferritin AST Lactate Dehydrogenase Total Creatine Kinase Troponin T C-Reactive Protein Total Protein Albumin Triglycerides HDL Cholesterol Arterial Blood Glucose 170 H 150 H Arterial Blood Ionized Calcium Urine WBC (Auto) 9.0 H Salicylates Acetaminophen Coronavirus (PCR) 07/19/21 07/19/21 07/19/21 04:59 04:59 Unknown WBC RBC Hgb Hct RDW 16.0 H Lymph % (Auto) 10.7 L Lymph # (Auto) 1.1 L Seg Neutrophils % 84.3 H Seg Neutrophils # 8.7 H PT D-Dimer ABG pH POC ABG pCO2 POC ABG pO2 ABG pO2 ABG O2 Saturation ABG Base Excess ABG Hemoglobin ABG Oxyhemoglobin ABG Sodium ABG Chloride ABG Glucose Oxyhemoglobin Carboxyhemoglobin Sodium Potassium Chloride 108.8 H Carbon Dioxide 21 L BUN 28 H Creatinine 1.8 H Glucose 145 H POC Glucose Calcium 7.8 L Magnesium Ferritin AST Lactate Dehydrogenase Total Creatine Kinase Troponin T C-Reactive Protein Total Protein 6.2 L Albumin 3.2 L Triglycerides HDL Cholesterol Arterial Blood Glucose Arterial Blood Ionized Calcium Urine WBC (Auto) Salicylates Acetaminophen Coronavirus (PCR) Positive A 07/19/21 07/20/21 07/20/21 Unknown 00:14 04:44 WBC RBC Hgb Hct RDW Lymph % (Auto) Lymph # (Auto) Seg Neutrophils % Seg Neutrophils # PT D-Dimer ABG pH POC ABG pCO2 POC ABG pO2 ABG pO2 64.2 L ABG O2 Saturation 93.2 L ABG Base Excess -4.5 L ABG Hemoglobin 11.0 L ABG Oxyhemoglobin ABG Sodium ABG Chloride ABG Glucose Oxyhemoglobin 91.9 L Carboxyhemoglobin Sodium Potassium Chloride 112.2 H Carbon Dioxide BUN 38 H Creatinine 1.3 H Glucose 156 H POC Glucose 164 H Calcium 8.1 L Magnesium 3.10 H Ferritin AST Lactate Dehydrogenase Total Creatine Kinase Troponin T C-Reactive Protein Total Protein Albumin 2.8 L Triglycerides HDL Cholesterol Arterial Blood Glucose Arterial Blood Ionized Calcium Urine WBC (Auto) Salicylates Acetaminophen Coronavirus (PCR) 07/20/21 07/20/21 07/20/21 04:44 05:00 05:40 WBC RBC 3.42 L Hgb 9.7 L Hct 29.3 L RDW 16.1 H Lymph % (Auto) Lymph # (Auto) Seg Neutrophils % Seg Neutrophils # PT D-Dimer ABG pH POC ABG pCO2 POC ABG pO2 139.0 H ABG pO2 ABG O2 Saturation ABG Base Excess ABG Hemoglobin 10.1 L ABG Oxyhemoglobin ABG Sodium ABG Chloride 113.0 H ABG Glucose 155 H Oxyhemoglobin Carboxyhemoglobin 0.3 L Sodium Potassium Chloride Carbon Dioxide BUN Creatinine Glucose POC Glucose 164 H Calcium Magnesium Ferritin AST Lactate Dehydrogenase Total Creatine Kinase Troponin T C-Reactive Protein Total Protein Albumin Triglycerides HDL Cholesterol Arterial Blood Glucose 155 H Arterial Blood Ionized Calcium 4.4 L Urine WBC (Auto) Salicylates Acetaminophen Coronavirus (PCR) 07/20/21 07/20/21 07/21/21 11:40 17:48 03:31 WBC RBC Hgb Hct RDW Lymph % (Auto) Lymph # (Auto) Seg Neutrophils % Seg Neutrophils # PT D-Dimer ABG pH POC ABG pCO2 POC ABG pO2 ABG pO2 ABG O2 Saturation ABG Base Excess ABG Hemoglobin ABG Oxyhemoglobin ABG Sodium ABG Chloride ABG Glucose Oxyhemoglobin Carboxyhemoglobin Sodium Potassium Chloride Carbon Dioxide BUN Creatinine Glucose POC Glucose 137 H 143 H 157 H Calcium Magnesium Ferritin AST Lactate Dehydrogenase Total Creatine Kinase Troponin T C-Reactive Protein Total Protein Albumin Triglycerides HDL Cholesterol Arterial Blood Glucose Arterial Blood Ionized Calcium Urine WBC (Auto) Salicylates Acetaminophen Coronavirus (PCR) 07/21/21 07/21/21 07/21/21 04:30 04:52 05:21 WBC RBC Hgb Hct RDW Lymph % (Auto) Lymph # (Auto) Seg Neutrophils % Seg Neutrophils # PT D-Dimer ABG pH POC ABG pCO2 31.7 L POC ABG pO2 77.6 L ABG pO2 ABG O2 Saturation ABG Base Excess ABG Hemoglobin 10.2 L ABG Oxyhemoglobin ABG Sodium 148.3 H ABG Chloride 120.0 H ABG Glucose 168 H Oxyhemoglobin Carboxyhemoglobin 0.2 L Sodium 150 H Potassium Chloride 115.7 H Carbon Dioxide BUN 49 H Creatinine 1.4 H Glucose 185 H POC Glucose 170 H Calcium 8.3 L Magnesium Ferritin AST Lactate Dehydrogenase Total Creatine Kinase Troponin T C-Reactive Protein Total Protein Albumin 3.0 L Triglycerides HDL Cholesterol Arterial Blood Glucose 168 H Arterial Blood Ionized Calcium 4.4 L Urine WBC (Auto) Salicylates Acetaminophen Coronavirus (PCR) 07/21/21 07/21/21 07/21/21 11:17 17:26 23:40 WBC RBC Hgb Hct RDW Lymph % (Auto) Lymph # (Auto) Seg Neutrophils % Seg Neutrophils # PT D-Dimer ABG pH POC ABG pCO2 POC ABG pO2 ABG pO2 ABG O2 Saturation ABG Base Excess ABG Hemoglobin ABG Oxyhemoglobin ABG Sodium ABG Chloride ABG Glucose Oxyhemoglobin Carboxyhemoglobin Sodium Potassium Chloride Carbon Dioxide BUN Creatinine Glucose POC Glucose 176 H 184 H 161 H Calcium Magnesium Ferritin AST Lactate Dehydrogenase Total Creatine Kinase Troponin T C-Reactive Protein Total Protein Albumin Triglycerides HDL Cholesterol Arterial Blood Glucose Arterial Blood Ionized Calcium Urine WBC (Auto) Salicylates Acetaminophen Coronavirus (PCR) 07/22/21 07/22/21 07/22/21 03:30 04:39 05:29 WBC RBC Hgb Hct RDW Lymph % (Auto) Lymph # (Auto) Seg Neutrophils % Seg Neutrophils # PT D-Dimer ABG pH POC ABG pCO2 POC ABG pO2 67.4 L ABG pO2 ABG O2 Saturation ABG Base Excess ABG Hemoglobin 10.4 L ABG Oxyhemoglobin 91.8 L ABG Sodium 118.4 L ABG Chloride 114.0 H ABG Glucose 189 H Oxyhemoglobin Carboxyhemoglobin 0.2 L Sodium 146 H Potassium Chloride 112.8 H Carbon Dioxide 21 L BUN 46 H Creatinine Glucose 191 H POC Glucose 191 H Calcium Magnesium Ferritin AST Lactate Dehydrogenase Total Creatine Kinase Troponin T C-Reactive Protein Total Protein Albumin 2.9 L Triglycerides HDL Cholesterol Arterial Blood Glucose 189 H Arterial Blood Ionized Calcium 4.5 L Urine WBC (Auto) Salicylates Acetaminophen Coronavirus (PCR) 07/22/21 07/22/21 07/22/21 12:17 17:54 23:34 WBC RBC Hgb Hct RDW Lymph % (Auto) Lymph # (Auto) Seg Neutrophils % Seg Neutrophils # PT D-Dimer ABG pH POC ABG pCO2 POC ABG pO2 ABG pO2 ABG O2 Saturation ABG Base Excess ABG Hemoglobin ABG Oxyhemoglobin ABG Sodium ABG Chloride ABG Glucose Oxyhemoglobin Carboxyhemoglobin Sodium Potassium Chloride Carbon Dioxide BUN Creatinine Glucose POC Glucose 206 H 213 H 164 H Calcium Magnesium Ferritin AST Lactate Dehydrogenase Total Creatine Kinase Troponin T C-Reactive Protein Total Protein Albumin Triglycerides HDL Cholesterol Arterial Blood Glucose Arterial Blood Ionized Calcium Urine WBC (Auto) Salicylates Acetaminophen Coronavirus (PCR) 07/23/21 07/23/21 07/23/21 03:30 05:21 09:02 WBC RBC Hgb Hct RDW Lymph % (Auto) Lymph # (Auto) Seg Neutrophils % Seg Neutrophils # PT D-Dimer ABG pH POC ABG pCO2 POC ABG pO2 70.9 L ABG pO2 ABG O2 Saturation ABG Base Excess ABG Hemoglobin 10.9 L ABG Oxyhemoglobin 92.9 L ABG Sodium 130.2 L ABG Chloride 109.0 H ABG Glucose 177 H Oxyhemoglobin Carboxyhemoglobin 0.1 L Sodium Potassium 5.1 H Chloride Carbon Dioxide BUN 32 H Creatinine Glucose 200 H POC Glucose 191 H Calcium Magnesium Ferritin AST Lactate Dehydrogenase Total Creatine Kinase Troponin T C-Reactive Protein Total Protein Albumin Triglycerides HDL Cholesterol Arterial Blood Glucose 177 H Arterial Blood Ionized Calcium 4.3 L Urine WBC (Auto) Salicylates Acetaminophen Coronavirus (PCR) 07/23/21 07/23/21 07/23/21 09:02 11:34 17:52 WBC 13.8 H RBC Hgb Hct RDW 15.7 H Lymph % (Auto) Lymph # (Auto) Seg Neutrophils % Seg Neutrophils # PT D-Dimer ABG pH POC ABG pCO2 POC ABG pO2 ABG pO2 ABG O2 Saturation ABG Base Excess ABG Hemoglobin ABG Oxyhemoglobin ABG Sodium ABG Chloride ABG Glucose Oxyhemoglobin Carboxyhemoglobin Sodium Potassium Chloride Carbon Dioxide BUN Creatinine Glucose POC Glucose 208 H 158 H Calcium Magnesium Ferritin AST Lactate Dehydrogenase Total Creatine Kinase Troponin T C-Reactive Protein Total Protein Albumin Triglycerides HDL Cholesterol Arterial Blood Glucose Arterial Blood Ionized Calcium Urine WBC (Auto) Salicylates Acetaminophen Coronavirus (PCR) 07/23/21 07/24/21 07/24/21 23:28 03:06 05:01 WBC RBC Hgb Hct RDW Lymph % (Auto) Lymph # (Auto) Seg Neutrophils % Seg Neutrophils # PT D-Dimer ABG pH POC ABG pCO2 POC ABG pO2 51.1 L ABG pO2 ABG O2 Saturation ABG Base Excess ABG Hemoglobin ABG Oxyhemoglobin 85.0 L ABG Sodium 135.5 L ABG Chloride ABG Glucose 131 H Oxyhemoglobin Carboxyhemoglobin 0.4 L Sodium Potassium Chloride Carbon Dioxide BUN 29 H Creatinine Glucose 132 H POC Glucose 142 H Calcium 7.8 L Magnesium Ferritin AST Lactate Dehydrogenase Total Creatine Kinase Troponin T C-Reactive Protein Total Protein Albumin Triglycerides HDL Cholesterol Arterial Blood Glucose 131 H Arterial Blood Ionized Calcium 4.5 L Urine WBC (Auto) Salicylates Acetaminophen Coronavirus (PCR) 07/24/21 07/24/21 05:06 11:38 WBC RBC Hgb Hct RDW Lymph % (Auto) Lymph # (Auto) Seg Neutrophils % Seg Neutrophils # PT D-Dimer ABG pH POC ABG pCO2 POC ABG pO2 ABG pO2 ABG O2 Saturation ABG Base Excess ABG Hemoglobin ABG Oxyhemoglobin ABG Sodium ABG Chloride ABG Glucose Oxyhemoglobin Carboxyhemoglobin Sodium Potassium Chloride Carbon Dioxide BUN Creatinine Glucose POC Glucose 125 H 215 H Calcium Magnesium Ferritin AST Lactate Dehydrogenase Total Creatine Kinase Troponin T C-Reactive Protein Total Protein Albumin Triglycerides HDL Cholesterol Arterial Blood Glucose Arterial Blood Ionized Calcium Urine WBC (Auto) Salicylates Acetaminophen Coronavirus (PCR)
[2021-07-24] MEDS ORDERED: cefTRIAXone/NS 2 GM/100 ML 2 GM/100 ML BAG IV SCH (22:00)
[2021-07-25] MEDS: FREE WATER PO SCH ×6 (02:50→22:14)
[2021-07-25] MEDS: VANCOMYCIN 2,000 MG in SODIUM CHLORIDE 0.9% 500 ML 500 ML IV SCH (02:54)
[2021-07-25] MEDS: fentaNYL DRIP Premix 2,000 MCG/100 ML BAG IV SCH ×5 (04:08→22:02)
[2021-07-25 05:05] LABS: Hematocrit 34.4 % (30.3-42.9); Hemoglobin 11.2 gm/dl (10.1-14.3); Mean Corpuscular HGB Conc 33 % (30-34); Mean Corpuscular Volume 87 fl (79-97); Platelet Count 206 K/mm3 (140-440); Red Blood Count 3.95 M/mm3 (3.65-5.03); Red Cell Distribution Width 15.6 % (13.2-15.2)
[2021-07-25 05:24] LABS: Blood Urea Nitrogen 29 mg/dL (7-17); Calcium 7.3 mg/dL (8.4-10.2); Hemolysis Index 191
[2021-07-25 05:27] LABS: BUN/Creatinine Ratio 41
[2021-07-25] MEDS: methylPREDNISolone Sod Succinate 125 MG/2 ML INJ IV SCH ×3 (05:43→22:14)
[2021-07-25] MEDS: INSULIN LISPRO 100 UNIT/ML SUB-Q SCH ×3 (05:46→17:35)
--- NOTE | 2021-07-25 09:37 | Progress Note ---
Assessment and Plan Assessment and plan: 55 yo F PMHx HTN, DM2 presents with severe COVID pneumonia. Acute hypoxic respiratory failure Severe COVID-19 pneumonia. Covid PCR positive on 07/19/2021. Severe sepsis/septic shock. Patient meets criteria given the tachycardia, tachypnea and diagnosis of pneumonia. Patient also hypotensive requiring pressors Bilateral pulmonary emboli. CTA reveals multiple segmental bilateral pulmonary emboli Acute kidney injury. Etiology secondary to sepsis/ATN. Diabetes mellitus type 2 Obesity. Moderate protein calorie malnutrition Hospital course: 07/18 admit to hospital via ER; being held in ER for ICU bed 07/19 remains in ER intubated and mechanically ventilated; covid pos 07-20 came to ICU overnight from ER; no bradycardic 07/21/2021. Patient remains orally intubated on mechanical ventilation AC mode rate of 26, tidal volume 420, FiO2 90% and PEEP of 16. Continue empiric antibiotics of ceftriaxone and azithromycin for 5 days total. Complete 5 days of remdesivir and continue IV steroids. Patient received Actemra 07/20/2021. Continue therapeutic anticoagulation with Lovenox 100 mg subcu twice daily. Continue sedation of fentanyl and Versed as tolerated. Continue pressors to maintain MAP > 65. Follow-up echocardiogram. 07/22/2021. Patient on mechanical ventilation AC mode rate of 26, FiO2 70% and PEEP of 16. Continue to wean FiO2 as tolerated. Continue antibiotics per ID recommendations. Patient currently with ceftriaxone and azithromycin. Complete 5 days of remdesivir. Continue IV steroids. Patient received Actemra on 07/20/2021. Continue prone positioning as able. Continue to trend inflammatory markers. 07/23/2021. Patient remains on mechanical ventilation AC mode rate of 26, tidal volume 420, FiO2 75% and PEEP of 16. Continue to wean FiO2 as tolerated. Continue antibiotics per ID recommendations. Patient currently with ceftriaxone and azithromycin. Complete 5 days of remdesivir. Continue IV steroids. Patient received Actemra on 07/20/2021. Continue prone positioning as able. Continue to trend inflammatory markers. ID and pulmonary following. 07/24/2021. Patient remains on mechanical ventilation AC mode rate of 26, tidal volume 420, FiO2 70% and PEEP of 16. Patient with possible tricuspid valve vegetation seen on echocardiogram. Consult cardiology for further evaluation. Continue IV antibiotics per ID recommendations. Prone position is possible. Continue to trend inflammatory markers. 07/25/2021. Patient remains on mechanical ventilation AC mode rate of 26, tidal volume 420, FiO2 70% and PEEP of 14. Patient with possible tricuspid valve vegetation seen on echocardiogram. Consult cardiology for further evaluation. Continue IV antibiotics per ID recommendations. Prone position is possible. Continue to trend inflammatory markers. The high probability of a clinically significant, sudden or life threatening deterioration of the [cardiac, respiratory and immunologic] system(s) required my full and direct attention, intervention and personal management. The aggregate critical care time was [32] minutes. This time is in addition to time spent performing reported procedures but includes the following: [x] Data Review and interpretation [x] Patient assessment and monitoring of vital signs [x] Documentation [x] Medication orders and management History Interval history: No new issues overnight. Hospitalist Physical - Constitutional Vitals: Temp Pulse Resp BP Pulse Ox 98.7 F 40 L 26 H 115/67 93 07/25/21 07:00 07/25/21 08:27 07/25/21 08:00 07/25/21 08:27 07/25/21 08:27 General appearance: Present: no acute distress, well-nourished, other (Patient orally intubated) - EENT Eyes: Present: PERRL, EOM intact ENT: hearing intact, clear oral mucosa, dentition normal - Neck Neck: Present: supple, normal ROM - Respiratory Respiratory effort: normal Respiratory: bilateral: CTA - Cardiovascular Rhythm: regular Heart Sounds: Present: S1 & S2. Absent: gallop, rub - Extremities Extremities: no ischemia, No edema, Full ROM - Abdominal General gastrointestinal: soft, non-tender, non-distended, normal bowel sounds - Integumentary Integumentary: Present: clear, warm, dry - Neurologic Neurologic: CNII-XII intact, moves all extremities HEART Score - HEART Score Troponin: Troponin T 0.106 ng/mL (0.00-0.029) H* 07/18/21 16:00 Results - Labs CBC & Chem 7: 07/25/21 04:28 07/25/21 04:28 Labs: Laboratory Last Values WBC 14.9 K/mm3 (4.5-11.0) H 07/25/21 04:28 RBC 3.95 M/mm3 (3.65-5.03) 07/25/21 04:28 Hgb 11.2 gm/dl (10.1-14.3) 07/25/21 04:28 Hct 34.4 % (30.3-42.9) 07/25/21 04:28 MCV 87 fl (79-97) 07/25/21 04:28 MCH 28 pg (28-32) 07/25/21 04:28 MCHC 33 % (30-34) 07/25/21 04:28 RDW 15.6 % (13.2-15.2) H 07/25/21 04:28 Plt Count 206 K/mm3 (140-440) 07/25/21 04:28 Lymph % (Auto) 10.7 % (13.4-35.0) L 07/19/21 04:59 [place] % (Auto) 4.8 % (0.0-7.3) 07/19/21 04:59 Eos % (Auto) 0.1 % (0.0-4.3) 07/19/21 04:59 Baso % (Auto) 0.1 % (0.0-1.8) 07/19/21 04:59 Lymph # (Auto) 1.1 K/mm3 (1.2-5.4) L 07/19/21 04:59 [place] # (Auto) 0.5 K/mm3 (0.0-0.8) 07/19/21 04:59 Eos # (Auto) 0.0 K/mm3 (0.0-0.4) 07/19/21 04:59 Baso # (Auto) 0.0 K/mm3 (0.0-0.1) 07/19/21 04:59 Seg Neutrophils % [employer] Of Engineering 07/25/21 04:28 Seg Neutrophils # 8.7 K/mm3 (1.8-7.7) H 07/19/21 04:59 PT 15.1 Sec. (12.2-14.9) H 07/18/21 16:00 INR 1.13 (0.87-1.13) 07/18/21 16:00 APTT 31.9 Sec. (24.2-36.6) 07/18/21 16:00 D-Dimer > 94848 ng/mlDDU (0-234) H 07/18/21 16:00 ABG pH 7.420 (7.320-7.450) 07/25/21 03:33 POC ABG pCO2 43.8 mmHg (32.0-48.0) 07/25/21 03:33 ABG pCO2 35.2 mm Hg 07/19/21 Unknown POC ABG pO2 107.2 mmHg (83-108) 07/25/21 03:33 ABG pO2 64.2 mm Hg (80.0-90.0) L 07/19/21 Unknown POC ABG HCO3 27.8 07/25/21 03:33 ABG HCO3 20.1 mmol/L (20.0-26.0) 07/19/21 Unknown ABG O2 Saturation 98.0 (0-100) 07/25/21 03:33 ABG O2 Content 14.3 (0.0-44) 07/19/21 Unknown POC ABG Base Excess 2.9 07/25/21 03:33 ABG Base Excess -4.5 mmol/L (-2.0-3.0) L 07/19/21 Unknown ABG Hemoglobin 12.0 (12.0-17.5) 07/25/21 03:33 ABG Oxyhemoglobin 97.6 (94-98) 07/25/21 03:33 ABG Carboxyhemoglobin 0.8 % (0.0-5.0) 07/19/21 Unknown ABG Methemoglobin 0.3 (0.0-1.5) 07/25/21 03:33 ABG Sodium 135.6 mmol/L (136.0-145.0) L 07/25/21 03:33 ABG Potassium 4.3 mmol/L (3.40-4.50) 07/25/21 03:33 ABG Chloride 104.0 mmol/L (98-107) 07/25/21 03:33 ABG Glucose 174 mg/dL (65-95) H 07/25/21 03:33 Oxyhemoglobin 91.9 % (95.0-99.0) L 07/19/21 Unknown Carboxyhemoglobin 0.1 (0.5-1.5) L 07/25/21 03:33 FiO2 100 % 07/19/21 Unknown FiO2 % 90.0 07/25/21 03:33 Sodium 140 mmol/L (137-145) 07/25/21 04:28 Potassium 5.1 mmol/L (3.6-5.0) H 07/25/21 04:28 Chloride 107.7 mmol/L (98-107) H 07/25/21 04:28 Carbon Dioxide 26 mmol/L (22-30) 07/25/21 04:28 Anion Gap 11 mmol/L 07/25/21 04:28 BUN 29 mg/dL (7-17) H 07/25/21 04:28 Creatinine 0.7 mg/dL (0.6-1.2) 07/25/21 04:28 Estimated GFR > 60 ml/min 07/25/21 04:28 BUN/Creatinine Ratio 41 % 07/25/21 04:28 Glucose 164 mg/dL (65-100) H 07/25/21 04:28 POC Glucose 173 mg/dL (70-105) H 07/25/21 05:17 Lactic Acid 1.40 mmol/L (0.7-2.0) 07/18/21 16:00 Calcium 7.3 mg/dL (8.4-10.2) L 07/25/21 04:28 Phosphorus 3.70 mg/dL (2.5-4.5) 07/20/21 04:44 Magnesium 3.10 mg/dL (1.7-2.3) H 07/20/21 04:44 Ferritin 657.0 ng/mL (10.0-200.0) H 07/18/21 16:00 Total Bilirubin 0.20 mg/dL (0.1-1.2) 07/22/21 04:39 AST 38 units/L (5-40) 07/22/21 04:39 ALT 29 units/L (7-56) 07/22/21 04:39 Alkaline Phosphatase 83 units/L (35-129) 07/22/21 04:39 Ammonia 37.0 umol/L (25-60) 07/18/21 16:00 Lactate Dehydrogenase 705 units/L (91-180) H 07/18/21 16:00 Total Creatine Kinase 157 units/L (30-135) H 07/18/21 16:00 Troponin T 0.106 ng/mL (0.00-0.029) H* 07/18/21 16:00 C-Reactive Protein 33.00 mg/dL (0.00-1.30) H 07/18/21 16:00 Total Protein 6.4 g/dL (6.3-8.2) 07/22/21 04:39 Albumin 2.9 g/dL (3.9-5) L 07/22/21 04:39 Albumin/Globulin Ratio 0.8 % 07/22/21 04:39 Triglycerides 156 mg/dL (2-149) H 07/18/21 16:00 Cholesterol 127 mg/dL (50-199) 07/18/21 16:00 LDL Cholesterol Direct 64 mg/dL (50-130) 07/18/21 16:00 HDL Cholesterol 33 mg/dL (40-59) L 07/18/21 16:00 Cholesterol/HDL Ratio 3.84 % 07/18/21 16:00 Procalcitonin 1.28 ng/mL (<0.15) 07/18/21 16:00 TSH 0.469 mlU/mL (0.270-4.200) 07/21/21 04:52 Free T4 1.05 ng/dL (0.76-1.46) 07/21/21 04:52 Arterial Blood Glucose 174 mg/dL (65-95) H 07/25/21 03:33 Arterial Blood Ionized Calcium 4.6 mg/dL (4.6-5.3) 07/25/21 03:33 Urine Color Yellow (Yellow) 07/18/21 Unknown Urine Turbidity Slightly-cloudy (Clear) 07/18/21 Unknown Urine pH 5.0 (5.0-7.0) 07/18/21 Unknown Ur Specific [place] 1.020 (1.003-1.030) 07/18/21 Unknown Urine Protein >500 mg/dL (Negative) 07/18/21 Unknown Urine Glucose (UA) Neg mg/dL (Negative) 07/18/21 Unknown Urine Ketones 20 mg/dL (Negative) 07/18/21 Unknown Urine Blood Neg (Negative) 07/18/21 Unknown Urine Nitrite Neg (Negative) 07/18/21 Unknown Urine Bilirubin Neg (Negative) 07/18/21 Unknown Urine Urobilinogen < 2.0 mg/dL (<2.0) 07/18/21 Unknown Ur Leukocyte Esterase Neg (Negative) 07/18/21 Unknown Urine WBC (Auto) 9.0 /HPF (0.0-6.0) H 07/18/21 Unknown Urine RBC (Auto) 2.0 /HPF (0.0-6.0) 07/18/21 Unknown U Epithel Cells (Auto) 1.0 /HPF (0-13.0) 07/18/21 Unknown Urine Bacteria (Auto) 1+ /HPF (Negative) 07/18/21 Unknown Amorphous Crystals Few 07/18/21 Unknown Urine Mucus Few /HPF 07/18/21 Unknown Vancomycin Trough 22.9 ug/mL (5.0-20.0) H 07/25/21 04:28 Salicylates < 0.3 mg/dL (2.8-20.0) L 07/18/21 16:00 Urine Opiates Screen Negative 07/18/21 Unknown Urine Methadone Screen Negative 07/18/21 Unknown Acetaminophen 5.7 ug/mL (10.0-30.0) L 07/18/21 16:00 Ur Barbiturates Screen Negative 07/18/21 Unknown Ur Phencyclidine Scrn Negative 07/18/21 Unknown Ur Amphetamines Screen Negative 07/18/21 Unknown U Benzodiazepines Scrn Negative 07/18/21 Unknown Urine Cocaine Screen Negative 07/18/21 Unknown U Marijuana (THC) Screen Negative 07/18/21 Unknown Drugs of Abuse Note Disclamer 07/18/21 Unknown Plasma/Serum Alcohol < 0.01 % (0-0.07) 07/18/21 16:00 Coronavirus (PCR) Positive (Negative) A 07/19/21 Unknown Blood Type O POSITIVE 07/18/21 16:05 Antibody Screen Negative 07/18/21 16:05 Guzman/IV: Voiding Method Indwelling Catheter Active Medications - Current Medications Current Medications: Generic Name Dose Route Start Last Admin Trade Name Freq PRN Reason Stop Dose Admin Acetaminophen 650 mg 07/18/21 22:49 Acetaminophen 325 Mg Tab PO Q4H PRN Pain MILD(1-3)/Fever >100.5/URENA Lipase/Protease/Amylase 1 each 07/18/21 22:56 Lipase 10,500/Protease 25,000/Amylase 43,750 (Units) Dr Alvarado FEEDTUBE PRN PRN For Clogged Feeding Tube Enoxaparin Sodium 100 mg 07/19/21 10:00 07/24/21 22:36 Enoxaparin 100 Mg/1 Ml Inj SUB-Q 100 mg Q12HR NICOLE Administration Protocol Famotidine 20 mg 07/18/21 22:00 07/24/21 22:37 Famotidine 20 Mg/2 Ml Inj IV 20 mg BID NICOLE Administration Fentanyl 50 mcg 07/18/21 14:41 Fentanyl 100 Mcg/2 Ml Inj IV Q10MIN PRN ANALGESIA Hydrophilic Ointment 1 applic 07/18/21 14:41 Lip Therapy Vaseline TP Q2HR PRN Dry Lips Fentanyl Citrate 2,000 mcg in 100 mls @ 4.915 mls/hr 07/18/21 16:00 07/25/21 08:34 Fentanyl Drip Premix IV 4 mcg/kg/hr TITR NICOLE 19.66 mls/hr Administration Protocol 1 MCG/KG/HR Midazolam HCl 100 mg/ Sodium 100 mls @ 2 mls/hr 07/18/21 19:00 07/24/21 23:52 Chloride IV 4 mg/hr TITR NICOLE 4 mls/hr Administration Protocol 2 MG/HR Ceftriaxone Sodium 2 gm in 100 mls @ 200 mls/hr 07/24/21 22:00 07/24/21 22:35 Rocephin/Ns 2 Gm/100 Ml IV 200 mls/hr Q24H NICOLE Administration Protocol Vancomycin HCl 2,000 mg/ 540 mls @ 250 mls/hr 07/23/21 15:00 07/25/21 02:54 Sodium Chloride IV 250 mls/hr Q12H NICOLE Administration Insulin Human Lispro 0 unit 07/19/21 18:00 07/25/21 05:46 Insulin Lispro 100 Unit/Ml SUB-Q 2 unit Q6H NICOLE Administration Protocol Methylprednisolone Sodium Succinate 60 mg 07/18/21 23:00 07/25/21 05:43 Methylprednisolone Sod Succinate 125 Mg/2 Ml Inj IV 60 mg Q8HR NICOLE Administration Midazolam HCl 2 mg 07/18/21 18:11 07/22/21 07:56 Midazolam 2 Mg/2 Ml Inj IV 2 mg Q10MIN PRN Administration Sedation Multi-Ingred Cream/Lotion/Oil/Oint 1 applic 07/18/21 14:41 Mineral Oil/Petrolatum, White Ophth Oint 3.5 Gm OU Q4HR PRN Dry Eye(s) Ondansetron HCl 4 mg 07/18/21 22:49 Ondansetron 4 Mg/2 Ml Inj IV Q8H PRN Nausea And Vomiting Senna/Docusate Sodium 1 tab 07/18/21 22:00 07/24/21 22:36 Sennosides/Docusate Sodium 8.6/50 Mg Tab FEEDTUBE 1 tab BID NICOLE Administration Simple Syrup 15 ml 07/18/21 22:56 Simple Syrup 15 Ml FEEDTUBE PRN PRN Hypoglycemia Simple Syrup 30 ml 07/18/21 22:56 Simple Syrup 15 Ml FEEDTUBE PRN PRN Hypoglycemia Sodium Bicarbonate 325 mg 07/18/21 22:56 Sodium Bicarbonate 325 Mg Tab FEEDTUBE PRN PRN For Clogged Feeding Tube Sodium Chloride 10 ml 07/19/21 10:00 07/24/21 22:36 Sodium Chloride 0.9% 10 Ml Flush Syringe IV 10 ml BID NICOLE Administration Sodium Chloride 10 ml 07/18/21 22:49 Sodium Chloride 0.9% 10 Ml Flush Syringe IV PRN PRN LINE FLUSH Sodium Chloride 5 ml 07/20/21 14:38 Sodium Chloride 0.9% 1000 Ml Iv Soln IV PRN PRN ART-LINE Nutrition/Malnutrition Assess - Dietary Evaluation Nutrition/Malnutrition Findings: Nutrition Notes Start: 07/19/21 09:15 Freq: Status: Active Protocol: Document 07/24/21 12:35 SG (Rec: 07/24/21 12:39 [id number]) Nutrition Notes Initial or Follow up Brief Note Current Diagnosis Acute Kidney Injury,Diabetes, Hypertension,Respiratory Failure Other Pertinent Diagnosis COVID Current Diet Vital HP at 55 ml/hr Height 5 ft 6 in Weight 104.8 kg [place] Body Weight (kg) 59.09 BMI 37.3 Subjective/Other Information RN reports Vital HP is running at 55 ml/hr and pt is tolerating it. LAxtitive recommended to RN to to address lack of bowel movement . #1 Nutrition Diagnosis Inadequate oral intake Diagnosis Progress(for reassessment Continues documentation) Is patient on ventilator? Yes Is Patient Ambulatory and/or Out of Bed No REE-([facility]-confined to bed) [phone] Additional Notes Protein: (>2g/kg IBW) >118g Fluid: 1 ml/kcal or per MD Nutrition Intervention Change Diet Order: Continue Vital HP Goal #1 Meet at least 75% of protein and kcal needs via TF Anticipated Discharge Needs: Unable to determine at this time Follow-Up By: 07/26/21 Additional Comments F/u: TF tolerance
--- NOTE | 2021-07-25 09:39 | Consultation ---
History of Present Illness Consult date: 07/25/21 Consult reason: bradycardia History of present illness: Patient admitted with hypoxic respiratory failure, currently intubated and mechanically ventilated. Cardiology consulted because of abnormal transthoracic echocardiogram showing a mobile echogenic density attached to the tricuspid valve apparatus. Blood cultures are NGTD. CTA chest pertinent for multiple pulmonary emboli. Past History Past Medical History: diabetes, hypertension, other (obesity) Past Surgical History: Other (unable to obtain) Social history: other (unable to obtain) Family history: other (unable to obtain) Medications and Allergies Allergies Allergy/AdvReac Type Severity Reaction Status Date / Time No Known Allergies Allergy Unverified 02/25/21 01:21 Home Medications Medication Instructions Recorded Confirmed Last Taken Type Butalb/Acetamin/Caff 50-325-40 1 each PO Q4H PRN #7 tablet 03/25/14 Unknown Rx [Fioricet] amLODIPine [Norvasc] 5 mg PO DAILY #30 tab 03/25/14 Unknown Rx Estrogens, Conjugated [Premarin] 1 applicator VG QHS #1 tube 02/25/21 Unknown Rx hydrOXYzine PAMOATE [Vistaril] 50 mg PO Q12H PRN #30 capsule 02/25/21 Unknown Rx Active Meds: Active Medications Acetaminophen (Acetaminophen 325 Mg Tab) 650 mg PO Q4H PRN PRN Reason: Pain MILD(1-3)/Fever >100.5/URENA Lipase/Protease/Amylase (Lipase 10,500/Protease 25,000/Amylase 43,750 (Units) Dr Cap) 1 each FEEDTUBE PRN PRN PRN Reason: For Clogged Feeding Tube Enoxaparin Sodium (Enoxaparin 100 Mg/1 Ml Inj) 100 mg SUB-Q Q12HR [facility]; Protocol Last Admin: 07/24/21 22:36 Dose: 100 mg Documented by: Famotidine (Famotidine 20 Mg/2 Ml Inj) 20 mg IV BID NICOLE Last Admin: 07/24/21 22:37 Dose: 20 mg Documented by: Fentanyl (Fentanyl 100 Mcg/2 Ml Inj) 50 mcg IV Q10MIN PRN PRN Reason: ANALGESIA Hydrophilic Ointment (Lip Therapy Vaseline) 1 applic TP Q2HR PRN PRN Reason: Dry Lips Fentanyl Citrate (Fentanyl Drip Premix) 2,000 mcg in 100 mls @ 4.915 mls/hr IV TITR [facility]; Protocol Last Admin: 07/25/21 08:34 Dose: 4 mcg/kg/hr, 19.66 mls/hr Documented by: Midazolam HCl 100 mg/ Sodium (Chloride) 100 mls @ 2 mls/hr IV TITR [facility]; Protocol Last Admin: 07/24/21 23:52 Dose: 4 mg/hr, 4 mls/hr Documented by: Ceftriaxone Sodium (Rocephin/Ns 2 Gm/100 Ml) 2 gm in 100 mls @ 200 mls/hr IV Q24H [facility]; Protocol Last Admin: 07/24/21 22:35 Dose: 200 mls/hr Documented by: Vancomycin HCl 2,000 mg/ (Sodium Chloride) 540 mls @ 250 mls/hr IV Q12H [facility] Last Admin: 07/25/21 02:54 Dose: 250 mls/hr Documented by: Insulin Human Lispro (Insulin Lispro 100 Unit/Ml) 0 unit SUB-Q Q6H [facility]; Protocol Last Admin: 07/25/21 05:46 Dose: 2 unit Documented by: Methylprednisolone Sodium Succinate (Methylprednisolone Sod Succinate 125 Mg/2 Ml Inj) 60 mg IV Q8HR [facility] Last Admin: 07/25/21 05:43 Dose: 60 mg Documented by: Midazolam HCl (Midazolam 2 Mg/2 Ml Inj) 2 mg IV Q10MIN PRN PRN Reason: Sedation Last Admin: 07/22/21 07:56 Dose: 2 mg Documented by: Multi-Ingred Cream/Lotion/Oil/Oint (Mineral Oil/Petrolatum, White Ophth Oint 3.5 Gm) 1 applic OU Q4HR PRN PRN Reason: Dry Eye(s) Ondansetron HCl (Ondansetron 4 Mg/2 Ml Inj) 4 mg IV Q8H PRN PRN Reason: Nausea And Vomiting Senna/Docusate Sodium (Sennosides/Docusate Sodium 8.6/50 Mg Tab) 1 tab FEEDTUBE BID [facility] Last Admin: 07/24/21 22:36 Dose: 1 tab Documented by: Simple Syrup (Simple Syrup 15 Ml) 15 ml FEEDTUBE PRN PRN PRN Reason: Hypoglycemia Simple Syrup (Simple Syrup 15 Ml) 30 ml FEEDTUBE PRN PRN PRN Reason: Hypoglycemia Sodium Bicarbonate (Sodium Bicarbonate 325 Mg Tab) 325 mg FEEDTUBE PRN PRN PRN Reason: For Clogged Feeding Tube Sodium Chloride (Sodium Chloride 0.9% 10 Ml Flush Syringe) 10 ml IV BID NICOLE Last Admin: 07/24/21 22:36 Dose: 10 ml Documented by: Sodium Chloride (Sodium Chloride 0.9% 10 Ml Flush Syringe) 10 ml IV PRN PRN PRN Reason: LINE FLUSH Sodium Chloride (Sodium Chloride 0.9% 1000 Ml Iv Soln) 5 ml IV PRN PRN PRN Reason: ART-LINE Review of Systems All systems: negative Physical Examination Vital Signs Pulse Ox 84 07/18/21 14:40 General appearance: no acute distress Neck: Positive: neck supple Cardiac: Positive: Bradycardia Lungs: Positive: Ventilated Respirations Abdomen: Positive: Soft Results 07/25/21 04:28 07/25/21 04:28 CBC 07/25/21 Range/Units 04:28 WBC 14.9 H (4.5-11.0) K/mm3 RBC 3.95 (3.65-5.03) M/mm3 Hgb 11.2 (10.1-14.3) gm/dl Hct 34.4 (30.3-42.9) % Plt Count 206 (140-440) K/mm3 Comprehensive Metabolic Panel 07/25/21 Range/Units 04:28 Sodium 140 (137-145) mmol/L Potassium 5.1 H (3.6-5.0) mmol/L Chloride 107.7 H (98-107) mmol/L Carbon Dioxide 26 (22-30) mmol/L BUN 29 H (7-17) mg/dL Creatinine 0.7 (0.6-1.2) mg/dL Glucose 164 H (65-100) mg/dL Calcium 7.3 L (8.4-10.2) mg/dL EKG interpretations - Telemetry EKG Rhythm: Sinus Bradycardia Assessment and Plan Covid 19 pneumonia Multiple pulmonary emboli on CTA chest Acute hypoxic respiratory failure Mobile echogenic density on the tricuspid valve apparatus Given clinical picture, density most likely represents a thrombus and less likely a vegetation Sinus bradycardia No pauses or high degree AV block on tele Normal TSH Likely aggravated by remdesivir Recommendations: Continue supportive care Continue SC lovenox Recommend repeat echo in 3 months to re-evaluate mobile density Avoid negative chronotropic agents
[2021-07-25 10:23] LABS: Band Neutrophils # (Manual) 0.3 K/mm3; Myelocytes # (Manual) 0.1 K/mm3; Total Cells Counted 100
[2021-07-25 10:24] LABS: Platelet Estimate Consistent w Auto; RBC Morphology Normal
[2021-07-25] MEDS: ENOXAPARIN 100 MG/1 ML INJ SUB-Q SCH ×2 (10:39→22:13)
[2021-07-25] MEDS: FAMOTIDINE 20 MG/2 ML INJ IV SCH ×2 (10:40→22:14)
[2021-07-25] MEDS: SENNOSIDES/DOCUSATE SODIUM 8.6/50 MG TAB FEEDTUBE SCH ×2 (10:40→22:15)
--- NOTE | 2021-07-25 12:29 | Progress Note ---
Assessment and Plan Assessment and Plan 55 y/o obese female with acute respiratory failure, pulmonary embolism, now with renal failure, most likely all secondary to COVID 19 07/25/2021: Patient showing improvement in oxygenation. Able to wean down FiO2 and to some degree PEEP as well. Echocardiogram on 831 showed possible vegetation or growth on the tricuspid valve currently being worked up by cardiology. Cultures etc. has been ordered. We will continue to wean FiO2 and PEEP as tolerated. Total critical care time 31-minute 07/24/2021: Improving oxygenation. We will continue to wean FiO2 and PEEP. 07/23/21: Dropped FiO2 to 70. Hopeful to wean back down. Keep peep elevated until FiO2 at 50-55%. Continue High dose steroids. Keep RASS at -4. Na is better. Will stop D5W. Updated Daughter (Linda) and God[employer]aughter over the phone. If someone could please call them at least one day over the weekend I will call them again on Monday. Prognosis remains very guarded. Explained to them the high mortality rate associated with COVID and mechanical ventilation. 07/22/21: Dropped Fio2 to 65. Continue to wean for sats >88%. keep elevated peep until FiO2 around 50-55% so hopefully in the next 24-36 hours we can get there. Continue sedation to keep rass at -4. Continue high dose steroids. Will continue D5W for now until Free water can control sodium. need CBC in the am along with BMP. Prognosis still remains guarded. Continue lovenox 07/21/21: Dropped FiO2 to 80%. Continue to wean for sats >88%. Keep peep elevated until FiO2 around 50-55%. Continue remdesivir and adequate levels of sedation. Continue high dose steroids. No proning for now. Continue therapeutic lovenox. Prognosis remains guarded. 07/20/21: COVID positive. Started Remdesivir. Renal function improved. COntinue high dose steroids at current dosing for now. Suggest repeat ABG later this afternoon if able, may need art line but BP stable for now. No proning. Agree with therapeutic Lovenox. Guarded prognosis. 1. Follow up COVID testing, continue isolation 2. Agree with high dose IV steroids, if positive, will change to solumedrol [id number] 3. If positive then would need remdesivir and Actemra, hopefully still a cand idate given bump in renal function 4. Unable to prone patient at moment, but did increase PEEP to 20 and ordered repeat ABG at 1400 5 Very very guarded prognosis CCT 31 minutes Subjective Date of service: 07/25/21 Interval history: No significant change PaO2 in morning blood gases show PaO2 of 107 however saturation has been in high 90s. Has been able to wean down FiO2. Objective Vital Signs - 12hr 07/25/21 07/25/21 07/25/21 00:31 00:45 01:00 Temperature Pulse Rate 43 L 41 L 47 L Pulse Rate [ Right Dorsalis Pedis] Respiratory 26 H 26 H 24 Rate Blood Pressure O2 Sat by Pulse 97 97 97 Oximetry 07/25/21 07/25/21 07/25/21 01:15 01:31 01:45 Temperature Pulse Rate 41 L 41 L 43 L Pulse Rate [ Right Dorsalis Pedis] Respiratory 26 H 26 H 26 H Rate Blood Pressure 115/62 O2 Sat by Pulse 97 97 97 Oximetry 07/25/21 07/25/21 07/25/21 02:00 02:15 02:31 Temperature Pulse Rate 42 L 41 L 41 L Pulse Rate [ Right Dorsalis Pedis] Respiratory 26 H 26 H 26 H Rate Blood Pressure O2 Sat by Pulse 96 98 98 Oximetry 07/25/21 07/25/21 07/25/21 02:45 03:00 03:15 Temperature Pulse Rate 40 L 40 L 43 L Pulse Rate [ Right Dorsalis Pedis] Respiratory 26 H 26 H 26 H Rate Blood Pressure O2 Sat by Pulse 98 97 99 Oximetry 07/25/21 07/25/21 07/25/21 03:31 03:38 03:45 Temperature 100.1 F H Pulse Rate 39 L 39 L Pulse Rate [ Right Dorsalis Pedis] Respiratory 26 H 26 H Rate Blood Pressure O2 Sat by Pulse 99 99 Oximetry 07/25/21 07/25/21 07/25/21 04:00 04:15 04:28 Temperature Pulse Rate 40 L 54 L 45 L Pulse Rate [ Right Dorsalis Pedis] Respiratory 26 H 26 H Rate Blood Pressure 124/61 O2 Sat by Pulse 97 100 98 Oximetry 07/25/21 07/25/21 07/25/21 04:31 04:45 04:57 Temperature Pulse Rate 44 L 42 L 46 L Pulse Rate [ Right Dorsalis Pedis] Respiratory 26 H 26 H Rate Blood Pressure O2 Sat by Pulse 99 99 Oximetry 07/25/21 07/25/21 07/25/21 05:00 05:15 05:22 Temperature Pulse Rate 43 L 41 L Pulse Rate [ Right Dorsalis Pedis] Respiratory 26 H 26 H Rate Blood Pressure O2 Sat by Pulse 96 98 96 Oximetry 07/25/21 07/25/21 07/25/21 05:31 05:45 06:00 Temperature Pulse Rate 47 L 46 L 44 L Pulse Rate [ Right Dorsalis Pedis] Respiratory 26 H 26 H 26 H Rate Blood Pressure O2 Sat by Pulse 97 95 94 Oximetry 07/25/21 07/25/21 07/25/21 06:15 06:31 06:45 Temperature Pulse Rate 44 L 44 L 44 L Pulse Rate [ Right Dorsalis Pedis] Respiratory 26 H 26 H 26 H Rate Blood Pressure 130/75 130/75 O2 Sat by Pulse 95 93 93 Oximetry 07/25/21 07/25/21 07/25/21 07:00 07:15 07:31 Temperature 98.7 F Pulse Rate 41 L 44 L 43 L Pulse Rate [ Right Dorsalis Pedis] Respiratory 26 H 26 H 26 H Rate Blood Pressure 112/62 112/62 112/62 O2 Sat by Pulse 92 94 95 Oximetry 07/25/21 07/25/21 07/25/21 07:45 08:00 08:15 Temperature Pulse Rate 42 L 41 L 45 L Pulse Rate [ 41 L Right Dorsalis Pedis] Respiratory 26 H 26 H 26 H Rate Blood Pressure 112/62 115/67 115/67 O2 Sat by Pulse 95 99 95 Oximetry 07/25/21 07/25/21 07/25/21 08:27 08:31 08:45 Temperature Pulse Rate 40 L 58 L 46 L Pulse Rate [ Right Dorsalis Pedis] Respiratory 26 H 26 H Rate Blood Pressure 115/67 115/67 115/67 O2 Sat by Pulse 93 93 95 Oximetry 07/25/21 07/25/21 07/25/21 09:00 09:15 09:31 Temperature Pulse Rate 43 L 41 L 42 L Pulse Rate [ Right Dorsalis Pedis] Respiratory 26 H 26 H 26 H Rate Blood Pressure 120/72 120/72 120/72 O2 Sat by Pulse 93 95 96 Oximetry 07/25/21 07/25/21 07/25/21 09:45 10:00 10:15 Temperature Pulse Rate 41 L 40 L 42 L Pulse Rate [ Right Dorsalis Pedis] Respiratory 26 H 26 H 26 H Rate Blood Pressure 120/72 120/67 120/67 O2 Sat by Pulse 96 93 95 Oximetry 07/25/21 07/25/21 07/25/21 10:31 10:45 11:00 Temperature Pulse Rate 41 L 40 L 40 L Pulse Rate [ Right Dorsalis Pedis] Respiratory 26 H 26 H 26 H Rate Blood Pressure 120/67 120/67 124/69 O2 Sat by Pulse 96 96 95 Oximetry 07/25/21 07/25/21 11:43 12:19 Temperature 98.5 F Pulse Rate 40 L Pulse Rate [ Right Dorsalis Pedis] Respiratory Rate Blood Pressure 126/71 O2 Sat by Pulse 96 Oximetry Constitutional: no acute distress, comatose ENT: other (orally intubated and sedated) Ascultation: Bilateral: diminished breath sounds Cardiovascular: regular rate and rhythm Gastrointestinal: normoactive bowel sounds, soft, non-tender Integumentary: normal Extremities: no cyanosis Neurologic: other (Sedated) CBC and BMP: 07/25/21 04:28 07/25/21 04:28 ABG, PT/INR, D-dimer: ABG ABG pH 7.420 (7.320-7.450) 07/25/21 03:33 POC ABG pCO2 43.8 mmHg (32.0-48.0) 07/25/21 03:33 ABG pCO2 35.2 mm Hg 07/19/21 Unknown POC ABG pO2 107.2 mmHg (83-108) 07/25/21 03:33 ABG pO2 64.2 mm Hg (80.0-90.0) L 07/19/21 Unknown POC ABG HCO3 27.8 07/25/21 03:33 ABG O2 Saturation 98.0 (0-100) 07/25/21 03:33 PT/INR, D-dimer PT 15.1 Sec. (12.2-14.9) H 07/18/21 16:00 INR 1.13 (0.87-1.13) 07/18/21 16:00 D-Dimer > 56457 ng/mlDDU (0-234) H 07/18/21 16:00 Abnormal lab findings: Abnormal Labs 0807/18/21 07/18/21 16:00 16:00 16:00 WBC RBC Hgb Hct RDW 15.3 H Lymph % (Auto) 7.9 L Lymph # (Auto) 0.8 L Seg Neutrophils % 86.3 H Seg Neuts % (Manual) Lymphocytes % (Manual) Seg Neutrophils # 9.0 H Seg Neutrophils # Man Lymphocytes # (Manual) PT 15.1 H D-Dimer > 78274 H ABG pH POC ABG pCO2 POC ABG pO2 ABG pO2 ABG O2 Saturation ABG Base Excess ABG Hemoglobin ABG Oxyhemoglobin ABG Sodium ABG Chloride ABG Glucose Oxyhemoglobin Carboxyhemoglobin Sodium Potassium 3.5 L Chloride Carbon Dioxide 20 L BUN 19 H Creatinine Glucose 140 H POC Glucose Calcium Magnesium Ferritin AST 43 H Lactate Dehydrogenase 705 H Total Creatine Kinase 157 H Troponin T 0.106 H* C-Reactive Protein 33.00 H Total Protein Albumin 3.2 L Triglycerides 156 H HDL Cholesterol 33 L Arterial Blood Glucose Arterial Blood Ionized Calcium Urine WBC (Auto) Vancomycin Trough Salicylates Acetaminophen Coronavirus (PCR) 07/18/21 07/18/21 07/18/21 16:00 16:00 16:00 WBC RBC Hgb Hct RDW Lymph % (Auto) Lymph # (Auto) Seg Neutrophils % Seg Neuts % (Manual) Lymphocytes % (Manual) Seg Neutrophils # Seg Neutrophils # Man Lymphocytes # (Manual) PT D-Dimer ABG pH POC ABG pCO2 POC ABG pO2 ABG pO2 ABG O2 Saturation ABG Base Excess ABG Hemoglobin ABG Oxyhemoglobin ABG Sodium ABG Chloride ABG Glucose Oxyhemoglobin Carboxyhemoglobin Sodium Potassium Chloride Carbon Dioxide BUN Creatinine Glucose POC Glucose Calcium Magnesium Ferritin 657.0 H AST Lactate Dehydrogenase Total Creatine Kinase Troponin T C-Reactive Protein Total Protein Albumin Triglycerides HDL Cholesterol Arterial Blood Glucose Arterial Blood Ionized Calcium Urine WBC (Auto) Vancomycin Trough Salicylates < 0.3 L Acetaminophen 5.7 L Coronavirus (PCR) 07/18/21 07/18/21 07/19/21 Unknown Unknown 04:33 WBC RBC Hgb Hct RDW Lymph % (Auto) Lymph # (Auto) Seg Neutrophils % Seg Neuts % (Manual) Lymphocytes % (Manual) Seg Neutrophils # Seg Neutrophils # Man Lymphocytes # (Manual) PT D-Dimer ABG pH 7.275 L POC ABG pCO2 POC ABG pO2 68.7 L 53.1 L ABG pO2 ABG O2 Saturation ABG Base Excess ABG Hemoglobin ABG Oxyhemoglobin 88.3 L 85.3 L ABG Sodium ABG Chloride 109.0 H ABG Glucose 170 H 150 H Oxyhemoglobin Carboxyhemoglobin 0 L 0.3 L Sodium Potassium Chloride Carbon Dioxide BUN Creatinine Glucose POC Glucose Calcium Magnesium Ferritin AST Lactate Dehydrogenase Total Creatine Kinase Troponin T C-Reactive Protein Total Protein Albumin Triglycerides HDL Cholesterol Arterial Blood Glucose 170 H 150 H Arterial Blood Ionized Calcium Urine WBC (Auto) 9.0 H Vancomycin Trough Salicylates Acetaminophen Coronavirus (PCR) 07/19/21 07/19/21 07/19/21 04:59 04:59 Unknown WBC RBC Hgb Hct RDW 16.0 H Lymph % (Auto) 10.7 L Lymph # (Auto) 1.1 L Seg Neutrophils % 84.3 H Seg Neuts % (Manual) Lymphocytes % (Manual) Seg Neutrophils # 8.7 H Seg Neutrophils # Man Lymphocytes # (Manual) PT D-Dimer ABG pH POC ABG pCO2 POC ABG pO2 ABG pO2 ABG O2 Saturation ABG Base Excess ABG Hemoglobin ABG Oxyhemoglobin ABG Sodium ABG Chloride ABG Glucose Oxyhemoglobin Carboxyhemoglobin Sodium Potassium Chloride 108.8 H Carbon Dioxide 21 L BUN 28 H Creatinine 1.8 H Glucose 145 H POC Glucose Calcium 7.8 L Magnesium Ferritin AST Lactate Dehydrogenase Total Creatine Kinase Troponin T C-Reactive Protein Total Protein 6.2 L Albumin 3.2 L Triglycerides HDL Cholesterol Arterial Blood Glucose Arterial Blood Ionized Calcium Urine WBC (Auto) Vancomycin Trough Salicylates Acetaminophen Coronavirus (PCR) Positive A 07/19/21 07/20/21 07/20/21 Unknown 00:14 04:44 WBC RBC Hgb Hct RDW Lymph % (Auto) Lymph # (Auto) Seg Neutrophils % Seg Neuts % (Manual) Lymphocytes % (Manual) Seg Neutrophils # Seg Neutrophils # Man Lymphocytes # (Manual) PT D-Dimer ABG pH POC ABG pCO2 POC ABG pO2 ABG pO2 64.2 L ABG O2 Saturation 93.2 L ABG Base Excess -4.5 L ABG Hemoglobin 11.0 L ABG Oxyhemoglobin ABG Sodium ABG Chloride ABG Glucose Oxyhemoglobin 91.9 L Carboxyhemoglobin Sodium Potassium Chloride 112.2 H Carbon Dioxide BUN 38 H Creatinine 1.3 H Glucose 156 H POC Glucose 164 H Calcium 8.1 L Magnesium 3.10 H Ferritin AST Lactate Dehydrogenase Total Creatine Kinase Troponin T C-Reactive Protein Total Protein Albumin 2.8 L Triglycerides HDL Cholesterol Arterial Blood Glucose Arterial Blood Ionized Calcium Urine WBC (Auto) Vancomycin Trough Salicylates Acetaminophen Coronavirus (PCR) 07/20/21 07/20/21 07/20/21 04:44 05:00 05:40 WBC RBC 3.42 L Hgb 9.7 L Hct 29.3 L RDW 16.1 H Lymph % (Auto) Lymph # (Auto) Seg Neutrophils % Seg Neuts % (Manual) Lymphocytes % (Manual) Seg Neutrophils # Seg Neutrophils # Man Lymphocytes # (Manual) PT D-Dimer ABG pH POC ABG pCO2 POC ABG pO2 139.0 H ABG pO2 ABG O2 Saturation ABG Base Excess ABG Hemoglobin 10.1 L ABG Oxyhemoglobin ABG Sodium ABG Chloride 113.0 H ABG Glucose 155 H Oxyhemoglobin Carboxyhemoglobin 0.3 L Sodium Potassium Chloride Carbon Dioxide BUN Creatinine Glucose POC Glucose 164 H Calcium Magnesium Ferritin AST Lactate Dehydrogenase Total Creatine Kinase Troponin T C-Reactive Protein Total Protein Albumin Triglycerides HDL Cholesterol Arterial Blood Glucose 155 H Arterial Blood Ionized Calcium 4.4 L Urine WBC (Auto) Vancomycin Trough Salicylates Acetaminophen Coronavirus (PCR) 07/20/21 07/20/21 07/21/21 11:40 17:48 03:31 WBC RBC Hgb Hct RDW Lymph % (Auto) Lymph # (Auto) Seg Neutrophils % Seg Neuts % (Manual) Lymphocytes % (Manual) Seg Neutrophils # Seg Neutrophils # Man Lymphocytes # (Manual) PT D-Dimer ABG pH POC ABG pCO2 POC ABG pO2 ABG pO2 ABG O2 Saturation ABG Base Excess ABG Hemoglobin ABG Oxyhemoglobin ABG Sodium ABG Chloride ABG Glucose Oxyhemoglobin Carboxyhemoglobin Sodium Potassium Chloride Carbon Dioxide BUN Creatinine Glucose POC Glucose 137 H 143 H 157 H Calcium Magnesium Ferritin AST Lactate Dehydrogenase Total Creatine Kinase Troponin T C-Reactive Protein Total Protein Albumin Triglycerides HDL Cholesterol Arterial Blood Glucose Arterial Blood Ionized Calcium Urine WBC (Auto) Vancomycin Trough Salicylates Acetaminophen Coronavirus (PCR) 07/21/21 07/21/21 07/21/21 04:30 04:52 05:21 WBC RBC Hgb Hct RDW Lymph % (Auto) Lymph # (Auto) Seg Neutrophils % Seg Neuts % (Manual) Lymphocytes % (Manual) Seg Neutrophils # Seg Neutrophils # Man Lymphocytes # (Manual) PT D-Dimer ABG pH POC ABG pCO2 31.7 L POC ABG pO2 77.6 L ABG pO2 ABG O2 Saturation ABG Base Excess ABG Hemoglobin 10.2 L ABG Oxyhemoglobin ABG Sodium 148.3 H ABG Chloride 120.0 H ABG Glucose 168 H Oxyhemoglobin Carboxyhemoglobin 0.2 L Sodium 150 H Potassium Chloride 115.7 H Carbon Dioxide BUN 49 H Creatinine 1.4 H Glucose 185 H POC Glucose 170 H Calcium 8.3 L Magnesium Ferritin AST Lactate Dehydrogenase Total Creatine Kinase Troponin T C-Reactive Protein Total Protein Albumin 3.0 L Triglycerides HDL Cholesterol Arterial Blood Glucose 168 H Arterial Blood Ionized Calcium 4.4 L Urine WBC (Auto) Vancomycin Trough Salicylates Acetaminophen Coronavirus (PCR) 07/21/21 07/21/21 07/21/21 11:17 17:26 23:40 WBC RBC Hgb Hct RDW Lymph % (Auto) Lymph # (Auto) Seg Neutrophils % Seg Neuts % (Manual) Lymphocytes % (Manual) Seg Neutrophils # Seg Neutrophils # Man Lymphocytes # (Manual) PT D-Dimer ABG pH POC ABG pCO2 POC ABG pO2 ABG pO2 ABG O2 Saturation ABG Base Excess ABG Hemoglobin ABG Oxyhemoglobin ABG Sodium ABG Chloride ABG Glucose Oxyhemoglobin Carboxyhemoglobin Sodium Potassium Chloride Carbon Dioxide BUN Creatinine Glucose POC Glucose 176 H 184 H 161 H Calcium Magnesium Ferritin AST Lactate Dehydrogenase Total Creatine Kinase Troponin T C-Reactive Protein Total Protein Albumin Triglycerides HDL Cholesterol Arterial Blood Glucose Arterial Blood Ionized Calcium Urine WBC (Auto) Vancomycin Trough Salicylates Acetaminophen Coronavirus (PCR) 07/22/21 07/22/21 07/22/21 03:30 04:39 05:29 WBC RBC Hgb Hct RDW Lymph % (Auto) Lymph # (Auto) Seg Neutrophils % Seg Neuts % (Manual) Lymphocytes % (Manual) Seg Neutrophils # Seg Neutrophils # Man Lymphocytes # (Manual) PT D-Dimer ABG pH POC ABG pCO2 POC ABG pO2 67.4 L ABG pO2 ABG O2 Saturation ABG Base Excess ABG Hemoglobin 10.4 L ABG Oxyhemoglobin 91.8 L ABG Sodium 118.4 L ABG Chloride 114.0 H ABG Glucose 189 H Oxyhemoglobin Carboxyhemoglobin 0.2 L Sodium 146 H Potassium Chloride 112.8 H Carbon Dioxide 21 L BUN 46 H Creatinine Glucose 191 H POC Glucose 191 H Calcium Magnesium Ferritin AST Lactate Dehydrogenase Total Creatine Kinase Troponin T C-Reactive Protein Total Protein Albumin 2.9 L Triglycerides HDL Cholesterol Arterial Blood Glucose 189 H Arterial Blood Ionized Calcium 4.5 L Urine WBC (Auto) Vancomycin Trough Salicylates Acetaminophen Coronavirus (PCR) 07/22/21 07/22/21 07/22/21 12:17 17:54 23:34 WBC RBC Hgb Hct RDW Lymph % (Auto) Lymph # (Auto) Seg Neutrophils % Seg Neuts % (Manual) Lymphocytes % (Manual) Seg Neutrophils # Seg Neutrophils # Man Lymphocytes # (Manual) PT D-Dimer ABG pH POC ABG pCO2 POC ABG pO2 ABG pO2 ABG O2 Saturation ABG Base Excess ABG Hemoglobin ABG Oxyhemoglobin ABG Sodium ABG Chloride ABG Glucose Oxyhemoglobin Carboxyhemoglobin Sodium Potassium Chloride Carbon Dioxide BUN Creatinine Glucose POC Glucose 206 H 213 H 164 H Calcium Magnesium Ferritin AST Lactate Dehydrogenase Total Creatine Kinase Troponin T C-Reactive Protein Total Protein Albumin Triglycerides HDL Cholesterol Arterial Blood Glucose Arterial Blood Ionized Calcium Urine WBC (Auto) Vancomycin Trough Salicylates Acetaminophen Coronavirus (PCR) 07/23/21 07/23/21 07/23/21 03:30 05:21 09:02 WBC RBC Hgb Hct RDW Lymph % (Auto) Lymph # (Auto) Seg Neutrophils % Seg Neuts % (Manual) Lymphocytes % (Manual) Seg Neutrophils # Seg Neutrophils # Man Lymphocytes # (Manual) PT D-Dimer ABG pH POC ABG pCO2 POC ABG pO2 70.9 L ABG pO2 ABG O2 Saturation ABG Base Excess ABG Hemoglobin 10.9 L ABG Oxyhemoglobin 92.9 L ABG Sodium 130.2 L ABG Chloride 109.0 H ABG Glucose 177 H Oxyhemoglobin Carboxyhemoglobin 0.1 L Sodium Potassium 5.1 H Chloride Carbon Dioxide BUN 32 H Creatinine Glucose 200 H POC Glucose 191 H Calcium Magnesium Ferritin AST Lactate Dehydrogenase Total Creatine Kinase Troponin T C-Reactive Protein Total Protein Albumin Triglycerides HDL Cholesterol Arterial Blood Glucose 177 H Arterial Blood Ionized Calcium 4.3 L Urine WBC (Auto) Vancomycin Trough Salicylates Acetaminophen Coronavirus (PCR) 07/23/21 07/23/21 07/23/21 09:02 11:34 17:52 WBC 13.8 H RBC Hgb Hct RDW 15.7 H Lymph % (Auto) Lymph # (Auto) Seg Neutrophils % Seg Neuts % (Manual) Lymphocytes % (Manual) Seg Neutrophils # Seg Neutrophils # Man Lymphocytes # (Manual) PT D-Dimer ABG pH POC ABG pCO2 POC ABG pO2 ABG pO2 ABG O2 Saturation ABG Base Excess ABG Hemoglobin ABG Oxyhemoglobin ABG Sodium ABG Chloride ABG Glucose Oxyhemoglobin Carboxyhemoglobin Sodium Potassium Chloride Carbon Dioxide BUN Creatinine Glucose POC Glucose 208 H 158 H Calcium Magnesium Ferritin AST Lactate Dehydrogenase Total Creatine Kinase Troponin T C-Reactive Protein Total Protein Albumin Triglycerides HDL Cholesterol Arterial Blood Glucose Arterial Blood Ionized Calcium Urine WBC (Auto) Vancomycin Trough Salicylates Acetaminophen Coronavirus (PCR) 07/23/21 07/24/21 07/24/21 23:28 03:06 05:01 WBC RBC Hgb Hct RDW Lymph % (Auto) Lymph # (Auto) Seg Neutrophils % Seg Neuts % (Manual) Lymphocytes % (Manual) Seg Neutrophils # Seg Neutrophils # Man Lymphocytes # (Manual) PT D-Dimer ABG pH POC ABG pCO2 POC ABG pO2 51.1 L ABG pO2 ABG O2 Saturation ABG Base Excess ABG Hemoglobin ABG Oxyhemoglobin 85.0 L ABG Sodium 135.5 L ABG Chloride ABG Glucose 131 H Oxyhemoglobin Carboxyhemoglobin 0.4 L Sodium Potassium Chloride Carbon Dioxide BUN 29 H Creatinine Glucose 132 H POC Glucose 142 H Calcium 7.8 L Magnesium Ferritin AST Lactate Dehydrogenase Total Creatine Kinase Troponin T C-Reactive Protein Total Protein Albumin Triglycerides HDL Cholesterol Arterial Blood Glucose 131 H Arterial Blood Ionized Calcium 4.5 L Urine WBC (Auto) Vancomycin Trough Salicylates Acetaminophen Coronavirus (PCR) 07/24/21 07/24/21 07/24/21 05:06 11:38 17:26 WBC RBC Hgb Hct RDW Lymph % (Auto) Lymph # (Auto) Seg Neutrophils % Seg Neuts % (Manual) Lymphocytes % (Manual) Seg Neutrophils # Seg Neutrophils # Man Lymphocytes # (Manual) PT D-Dimer ABG pH POC ABG pCO2 POC ABG pO2 ABG pO2 ABG O2 Saturation ABG Base Excess ABG Hemoglobin ABG Oxyhemoglobin ABG Sodium ABG Chloride ABG Glucose Oxyhemoglobin Carboxyhemoglobin Sodium Potassium Chloride Carbon Dioxide BUN Creatinine Glucose POC Glucose 125 H 215 H 173 H Calcium Magnesium Ferritin AST Lactate Dehydrogenase Total Creatine Kinase Troponin T C-Reactive Protein Total Protein Albumin Triglycerides HDL Cholesterol Arterial Blood Glucose Arterial Blood Ionized Calcium Urine WBC (Auto) Vancomycin Trough Salicylates Acetaminophen Coronavirus (PCR) 07/24/21 07/25/21 07/25/21 23:23 03:33 04:28 WBC RBC Hgb Hct RDW Lymph % (Auto) Lymph # (Auto) Seg Neutrophils % Seg Neuts % (Manual) Lymphocytes % (Manual) Seg Neutrophils # Seg Neutrophils # Man Lymphocytes # (Manual) PT D-Dimer ABG pH POC ABG pCO2 POC ABG pO2 ABG pO2 ABG O2 Saturation ABG Base Excess ABG Hemoglobin ABG Oxyhemoglobin ABG Sodium 135.6 L ABG Chloride ABG Glucose 174 H Oxyhemoglobin Carboxyhemoglobin 0.1 L Sodium Potassium 5.1 H Chloride 107.7 H Carbon Dioxide BUN 29 H Creatinine Glucose 164 H POC Glucose 133 H Calcium 7.3 L Magnesium Ferritin AST Lactate Dehydrogenase Total Creatine Kinase Troponin T C-Reactive Protein Total Protein Albumin Triglycerides HDL Cholesterol Arterial Blood Glucose 174 H Arterial Blood Ionized Calcium Urine WBC (Auto) Vancomycin Trough Salicylates Acetaminophen Coronavirus (PCR) 07/25/21 07/25/21 07/25/21 04:28 04:28 05:17 WBC 14.9 H RBC Hgb Hct RDW 15.6 H Lymph % (Auto) Lymph # (Auto) Seg Neutrophils % Seg Neuts % (Manual) 92.0 H Lymphocytes % (Manual) 2.0 L Seg Neutrophils # Seg Neutrophils # Man 13.7 H Lymphocytes # (Manual) 0.3 L PT D-Dimer ABG pH POC ABG pCO2 POC ABG pO2 ABG pO2 ABG O2 Saturation ABG Base Excess ABG Hemoglobin ABG Oxyhemoglobin ABG Sodium ABG Chloride ABG Glucose Oxyhemoglobin Carboxyhemoglobin Sodium Potassium Chloride Carbon Dioxide BUN Creatinine Glucose POC Glucose 173 H Calcium Magnesium Ferritin AST Lactate Dehydrogenase Total Creatine Kinase Troponin T C-Reactive Protein Total Protein Albumin Triglycerides HDL Cholesterol Arterial Blood Glucose Arterial Blood Ionized Calcium Urine WBC (Auto) Vancomycin Trough 22.9 H Salicylates Acetaminophen Coronavirus (PCR) 07/25/21 11:29 WBC RBC Hgb Hct RDW Lymph % (Auto) Lymph # (Auto) Seg Neutrophils % Seg Neuts % (Manual) Lymphocytes % (Manual) Seg Neutrophils # Seg Neutrophils # Man Lymphocytes # (Manual) PT D-Dimer ABG pH POC ABG pCO2 POC ABG pO2 ABG pO2 ABG O2 Saturation ABG Base Excess ABG Hemoglobin ABG Oxyhemoglobin ABG Sodium ABG Chloride ABG Glucose Oxyhemoglobin Carboxyhemoglobin Sodium Potassium Chloride Carbon Dioxide BUN Creatinine Glucose POC Glucose 191 H Calcium Magnesium Ferritin AST Lactate Dehydrogenase Total Creatine Kinase Troponin T C-Reactive Protein Total Protein Albumin Triglycerides HDL Cholesterol Arterial Blood Glucose Arterial Blood Ionized Calcium Urine WBC (Auto) Vancomycin Trough Salicylates Acetaminophen Coronavirus (PCR)
--- NOTE | 2021-07-25 13:03 | Progress Note ---
Assessment and Plan Cultures: Blood culture 07/18/2021 no growth so far Urine culture 07/18/2021 no growth so far A/P: 55 yo F PMHx HTN, DM2 presents with severe COVID pneumonia. #Presumed COVID pneumonia: pending PCR, clinical presentation consistent with d iagnosis. Elevated procalcitonin as well, however in the setting of ION #Acute hypoxic respiratory failure: currently on the vent #[facility] #Tricuspid valve vegetation: possible seen on echo. #ION Recs: -Stopped ceftriaxone/vancomycin, started cefepime given fevers -Agree with cardiology TV lesion likely thrombus -Recommend cardiology consult -Complete 5 days remdesivir -Received Actemra 07/20/2021 -Anticoagulation per hospital protocol -Proning as able -Obtain q48-72h inflammatory markers - ferritin, Ddimer, CRP, LDH Thank you for the consult, we will continue to follow. Jessica Hassan MD [facility] ([facility] O: [phone] F: [phone] Subjective Date of service: 07/25/21 Interval history: Febrile yesterday to 101.2 with a white count 14.9. Remains on the vent. Objective - Exam Narrative Exam: Physical exam deferred to reduce risk of transmission of COVID-19. Please refer to primary team's note. - Constitutional Vitals: Vital Signs Temp Pulse Resp BP Pulse Ox 98.5 F 40 L 26 H 126/71 96 07/25/21 11:43 07/25/21 12:19 07/25/21 11:00 07/25/21 12:19 07/25/21 12:19 Temperature -Last 24 Hours Temperature 98.5 F Temperature 98.7 F Temperature 100.1 F Temperature 100.3 F Temperature 99.8 F Temperature 101.2 F - Labs CBC & Chem 7: 07/25/21 04:28 07/25/21 04:28 Labs: Abnormal lab results 07/24/21 07/24/21 07/25/21 Range/Units 17:26 23:23 03:33 WBC (4.5-11.0) K/mm3 RDW (13.2-15.2) % Seg Neuts % (Manual) (40.0-70.0) % Lymphocytes % (Manual) (13.4-35.0) % Seg Neutrophils # Man (1.8-7.7) K/mm3 Lymphocytes # (Manual) (1.2-5.4) K/mm3 ABG Sodium 135.6 L (136.0-145.0) mmol/L ABG Glucose 174 H (65-95) mg/dL Carboxyhemoglobin 0.1 L (0.5-1.5) Potassium (3.6-5.0) mmol/L Chloride (98-107) mmol/L BUN (7-17) mg/dL Glucose (65-100) mg/dL POC Glucose 173 H 133 H (70-105) mg/dL Calcium (8.4-10.2) mg/dL Arterial Blood Glucose 174 H (65-95) mg/dL Vancomycin Trough (5.0-20.0) ug/mL 07/25/21 07/25/21 07/25/21 Range/Units 04:28 04:28 04:28 WBC 14.9 H (4.5-11.0) K/mm3 RDW 15.6 H (13.2-15.2) % Seg Neuts % (Manual) 92.0 H (40.0-70.0) % Lymphocytes % (Manual) 2.0 L (13.4-35.0) % Seg Neutrophils # Man 13.7 H (1.8-7.7) K/mm3 Lymphocytes # (Manual) 0.3 L (1.2-5.4) K/mm3 ABG Sodium (136.0-145.0) mmol/L ABG Glucose (65-95) mg/dL Carboxyhemoglobin (0.5-1.5) Potassium 5.1 H (3.6-5.0) mmol/L Chloride 107.7 H (98-107) mmol/L BUN 29 H (7-17) mg/dL Glucose 164 H (65-100) mg/dL POC Glucose (70-105) mg/dL Calcium 7.3 L (8.4-10.2) mg/dL Arterial Blood Glucose (65-95) mg/dL Vancomycin Trough 22.9 H (5.0-20.0) ug/mL 07/25/21 07/25/21 Range/Units 05:17 11:29 WBC (4.5-11.0) K/mm3 RDW (13.2-15.2) % Seg Neuts % (Manual) (40.0-70.0) % Lymphocytes % (Manual) (13.4-35.0) % Seg Neutrophils # Man (1.8-7.7) K/mm3 Lymphocytes # (Manual) (1.2-5.4) K/mm3 ABG Sodium (136.0-145.0) mmol/L ABG Glucose (65-95) mg/dL Carboxyhemoglobin (0.5-1.5) Potassium (3.6-5.0) mmol/L Chloride (98-107) mmol/L BUN (7-17) mg/dL Glucose (65-100) mg/dL POC Glucose 173 H 191 H (70-105) mg/dL Calcium (8.4-10.2) mg/dL Arterial Blood Glucose (65-95) mg/dL Vancomycin Trough (5.0-20.0) ug/mL
[2021-07-25] MEDS: CEFEPIME/NS 2 GM/100 ML 2 GM/100 ML BAG IV SCH ×2 (14:55→22:16)
[2021-07-25] MEDS: MIDAZOLAM 100 MG in SODIUM CHLORIDE 0.9% 80 ML IV SCH (19:42)
[2021-07-26] MEDS: INSULIN LISPRO 100 UNIT/ML SUB-Q SCH ×4 (01:07→18:02)
[2021-07-26] MEDS: FREE WATER PO SCH ×5 (01:08→18:00)
[2021-07-26] MEDS: fentaNYL DRIP Premix 2,000 MCG/100 ML BAG IV SCH ×4 (02:34→17:55)
[2021-07-26] MEDS: CEFEPIME/NS 2 GM/100 ML 2 GM/100 ML BAG IV SCH ×3 (05:19→21:12)
[2021-07-26] MEDS: methylPREDNISolone Sod Succinate 125 MG/2 ML INJ IV SCH ×3 (05:20→22:43)
[2021-07-26 06:58] LABS: Blood Urea Nitrogen 33 mg/dL (7-17); Calcium 8.3 mg/dL (8.4-10.2); Hemolysis Index 26
[2021-07-26 07:01] LABS: Hematocrit 35.3 % (30.3-42.9); Hemoglobin 11.5 gm/dl (10.1-14.3); Mean Corpuscular HGB Conc 33 % (30-34); Mean Corpuscular Volume 87 fl (79-97); Platelet Count 218 K/mm3 (140-440); Red Blood Count 4.06 M/mm3 (3.65-5.03); Red Cell Distribution Width 15.6 % (13.2-15.2)
[2021-07-26 07:04] LABS: BUN/Creatinine Ratio 55
[2021-07-26] MEDS ORDERED: SODIUM POLYSTYRENE 15 GM/60 ML ORAL LIQD PO ONE (08:30)
[2021-07-26] MEDS: FAMOTIDINE 20 MG/2 ML INJ IV SCH ×2 (09:09→21:12)
[2021-07-26] MEDS: ENOXAPARIN 100 MG/1 ML INJ SUB-Q SCH ×2 (09:09→21:11)
[2021-07-26] MEDS: SENNOSIDES/DOCUSATE SODIUM 8.6/50 MG TAB FEEDTUBE SCH (09:09)
--- NOTE | 2021-07-26 09:25 | Progress Note ---
Assessment and Plan Covid 19 pneumonia Multiple pulmonary emboli on CTA chest Acute hypoxic respiratory failure Mobile echogenic density on the tricuspid valve apparatus Given clinical picture, density most likely represents a thrombus and less likely a vegetation Sinus bradycardia No pauses or high degree AV block on tele Normal TSH Likely aggravated by remdesivir Recommendations: Continue supportive care Continue SC lovenox Recommend repeat echo in 3 months to re-evaluate mobile density Avoid negative chronotropic agents No new cardiac recommendations Will continue to follow Subjective Date of service: 07/26/21 Principal diagnosis: COVID pneumonia Interval history: No interval changes cardiac afm She continues to have profound sinus bradycardia without pauses or evidence of high degree AV block Objective Vital Signs Temp Pulse Pulse Pulse Resp BP Pulse Ox 07/26/21 08:27 46 L 142/78 97 07/26/21 08:00 40 L 26 H 97 07/26/21 07:45 39 L 26 H 130/73 97 07/26/21 07:31 40 L 26 H 130/73 97 07/26/21 07:16 98.5 F 07/26/21 07:15 36 L 26 H 130/73 97 07/26/21 07:00 37 L 26 H 130/73 96 07/26/21 06:45 37 L 26 H 123/69 97 07/26/21 06:31 38 L 26 H 123/69 97 07/26/21 06:15 40 L 26 H 123/69 98 07/26/21 06:00 39 L 26 H 118/67 96 07/26/21 05:45 39 L 26 H 123/69 96 07/26/21 05:31 40 L 26 H 123/69 96 07/26/21 05:15 42 L 26 H 123/69 96 07/26/21 05:01 42 L 26 H 123/69 94 07/26/21 04:45 42 L 26 H 107/68 94 07/26/21 04:31 41 L 25 H 107/68 95 07/26/21 04:15 45 L 26 H 107/68 96 07/26/21 04:12 45 L 135/65 96 07/26/21 04:00 69 14 107/68 96 07/26/21 03:45 41 L 26 H 124/72 97 07/26/21 03:42 98.9 F 07/26/21 03:31 41 L 26 H 124/72 97 07/26/21 03:15 41 L 26 H 124/72 96 07/26/21 03:00 42 L 26 H 109/60 94 07/26/21 02:45 43 L 26 H 124/72 95 07/26/21 02:31 43 L 26 H 124/72 96 07/26/21 02:15 44 L 26 H 124/72 96 07/26/21 02:00 46 L 26 H 124/72 95 07/26/21 01:45 62 26 H 109/59 97 07/26/21 01:31 41 L 26 H 109/59 95 07/26/21 01:15 43 L 26 H 109/59 95 07/26/21 01:00 42 L 26 H 109/59 92 07/26/21 00:45 43 L 26 H 107/56 94 07/26/21 00:31 42 L 26 H 107/56 94 07/26/21 00:18 94 H 107/56 94 07/26/21 00:15 42 L 26 H 107/56 94 07/26/21 00:00 98.8 F 42 L 26 H 107/56 91 07/25/21 23:45 43 L 26 H 104/60 93 07/25/21 23:31 44 L 26 H 104/60 93 07/25/21 23:15 44 L 26 H 104/60 95 07/25/21 23:00 44 L 26 H 104/60 92 07/25/21 22:45 43 L 26 H 106/59 94 07/25/21 22:31 43 L 26 H 106/59 95 07/25/21 22:15 42 L 26 H 106/59 94 07/25/21 22:00 43 L 26 H 106/59 93 07/25/21 21:45 46 L 26 H 108/61 94 07/25/21 21:31 46 L 26 H 108/61 94 07/25/21 21:15 48 L 26 H 108/61 94 07/25/21 21:01 49 L 26 H 108/61 94 07/25/21 20:45 52 L 26 H 138/81 94 07/25/21 20:31 56 L 26 H 138/81 94 07/25/21 20:15 84 21 158/106 93 07/25/21 20:00 104 H 16 158/106 92 07/25/21 19:56 99 H 173/98 92 09/05/21 19:45 75 25 H 146/96 88 07/25/21 19:31 98 H 19 146/96 88 07/25/21 19:18 94 H 07/25/21 19:15 74 21 146/96 88 07/25/21 19:00 78 25 H 146/96 88 07/25/21 18:00 69 20 127/91 91 07/25/21 17:45 58 L 26 H 142/83 92 07/25/21 17:31 50 L 26 H 142/83 93 07/25/21 17:15 50 L 26 H 142/83 92 07/25/21 17:01 54 L 26 H 142/83 93 07/25/21 16:45 63 26 H 143/80 94 07/25/21 16:31 44 L 26 H 143/80 94 07/25/21 16:26 56 L 143/80 93 07/25/21 16:15 42 L 26 H 143/80 95 07/25/21 16:00 64 41 L 26 H 143/80 93 07/25/21 15:54 98.1 F 07/25/21 15:45 39 L 26 H 128/74 94 07/25/21 15:31 39 L 26 H 128/74 94 07/25/21 15:15 40 L 26 H 128/74 93 07/25/21 15:00 41 L 26 H 128/74 91 07/25/21 14:45 38 L 26 H 122/68 93 07/25/21 14:31 41 L 26 H 122/68 93 07/25/21 14:15 39 L 26 H 122/68 94 07/25/21 14:00 38 L 26 H 122/68 91 07/25/21 13:45 42 L 26 H 126/71 94 07/25/21 13:31 41 L 26 H 126/71 94 07/25/21 13:15 42 L 26 H 126/71 94 07/25/21 13:00 40 L 26 H 126/72 93 07/25/21 12:45 40 L 26 H 126/71 94 07/25/21 12:31 39 L 26 H 126/71 94 07/25/21 12:19 40 L 126/71 96 07/25/21 12:15 41 L 26 H 126/71 96 07/25/21 12:00 39 L 41 L 26 H 126/71 99 07/25/21 11:45 40 L 26 H 124/69 97 07/25/21 11:43 98.5 F 07/25/21 11:31 41 L 26 H 124/69 98 07/25/21 11:15 41 L 26 H 124/69 96 07/25/21 11:00 40 L 26 H 124/69 95 07/25/21 10:45 40 L 26 H 120/67 96 07/25/21 10:31 41 L 26 H 120/67 96 07/25/21 10:15 42 L 26 H 120/67 95 07/25/21 10:00 40 L 26 H 120/67 93 07/25/21 09:45 41 L 26 H 120/72 96 07/25/21 09:31 42 L 26 H 120/72 96 - Physical Examination Neck: Positive: neck supple Cardiac: Positive: Reg Rate and Rhythm Lungs: Positive: Normal Exam Abdomen: Positive: Soft - Labs and Meds CBC 07/26/21 Range/Units 06:07 WBC 18.0 H (4.5-11.0) K/mm3 RBC 4.06 (3.65-5.03) M/mm3 Hgb 11.5 (10.1-14.3) gm/dl Hct 35.3 (30.3-42.9) % Plt Count 218 (140-440) K/mm3 Comprehensive Metabolic Panel 07/26/21 Range/Units 06:07 Sodium 141 (137-145) mmol/L Potassium 5.4 H (3.6-5.0) mmol/L Chloride 103.9 (98-107) mmol/L Carbon Dioxide 29 (22-30) mmol/L BUN 33 H (7-17) mg/dL Creatinine 0.6 (0.6-1.2) mg/dL Glucose 155 H (65-100) mg/dL Calcium 8.3 L (8.4-10.2) mg/dL - Imaging and Cardiology EKG: report reviewed
--- NOTE | 2021-07-26 09:56 | Progress Note ---
Assessment and Plan 55 y/o obese female with acute respiratory failure, pulmonary embolism, now with renal failure, most likely all secondary to COVID 19 07/26/21: Back down to 65% like on 07/22 but PEEP is at 12. Will monitor closely. COntinue current level of sedation and high dose steroids. Prognosis is very very guarded. 07/23/21: Dropped FiO2 to 70. Hopeful to wean back down. Keep peep elevated until FiO2 at 50-55%. Continue High dose steroids. Keep RASS at -4. Na is better. Will stop D5W. Updated Daughter (Linda) and [employer] over the phone. If someone could please call them at least one day over the weekend I will call them again on Monday. Prognosis remains very guarded. Explained to them the high mortality rate associated with COVID and mechanical ventilation. 07/22/21: Dropped Fio2 to 65. Continue to wean for sats >88%. keep elevated peep until FiO2 around 50-55% so hopefully in the next 24-36 hours we can get there. Continue sedation to keep rass at -4. Continue high dose steroids. Will continue D5W for now until Free water can control sodium. need CBC in the am along with BMP. Prognosis still remains guarded. Continue lovenox 07/21/21: Dropped FiO2 to 80%. Continue to wean for sats >88%. Keep peep eleva ronna until FiO2 around 50-55%. Continue remdesivir and adequate levels of sedation. Continue high dose steroids. No proning for now. Continue therapeutic lovenox. Prognosis remains guarded. 07/20/21: COVID positive. Started Remdesivir. Renal function improved. COntinue high dose steroids at current dosing for now. Suggest repeat ABG later this afternoon if able, may need art line but BP stable for now. No proning. Agree with therapeutic Lovenox. Guarded prognosis. 1. Follow up COVID testing, continue isolation 2. Agree with high dose IV steroids, if positive, will change to solumedrol [id number] 3. If positive then would need remdesivir and Actemra, hopefully still a candidate given bump in renal function 4. Unable to prone patient at moment, but did increase PEEP to 20 and ordered repeat ABG at 1400 5 Very very guarded prognosis CCT 31 minutes. Subjective Date of service: 07/26/21 Principal diagnosis: COVID pneumonia Interval history: Down to 65%, still with sinus bradycardia but no changes/issues with BP. Cards is seeing secondary to veg on tricuspid along with bradycardia. Objective Vital Signs - 12hr 07/25/21 07/25/21 07/25/21 22:00 22:15 22:31 Temperature Pulse Rate 43 L 42 L 43 L Pulse Rate [ From Monitor] Respiratory 26 H 26 H 26 H Rate Blood Pressure 106/59 106/59 106/59 O2 Sat by Pulse 93 94 95 Oximetry 07/25/21 07/25/21 07/25/21 22:45 23:00 23:15 Temperature Pulse Rate 43 L 44 L 44 L Pulse Rate [ From Monitor] Respiratory 26 H 26 H 26 H Rate Blood Pressure 106/59 104/60 104/60 O2 Sat by Pulse 94 92 95 Oximetry 07/25/21 07/25/21 07/26/21 23:31 23:45 00:00 Temperature 98.8 F Pulse Rate 44 L 43 L 42 L Pulse Rate [ From Monitor] Respiratory 26 H 26 H 26 H Rate Blood Pressure 104/60 104/60 107/56 O2 Sat by Pulse 93 93 91 Oximetry 07/26/21 07/26/21 07/26/21 00:15 00:18 00:31 Temperature Pulse Rate 42 L 94 H 42 L Pulse Rate [ From Monitor] Respiratory 26 H 26 H Rate Blood Pressure 107/56 107/56 107/56 O2 Sat by Pulse 94 94 94 Oximetry 07/26/21 07/26/21 07/26/21 00:45 01:00 01:15 Temperature Pulse Rate 43 L 42 L 43 L Pulse Rate [ From Monitor] Respiratory 26 H 26 H 26 H Rate Blood Pressure 107/56 109/59 109/59 O2 Sat by Pulse 94 92 95 Oximetry 07/26/21 07/26/21 07/26/21 01:31 01:45 02:00 Temperature Pulse Rate 41 L 62 46 L Pulse Rate [ From Monitor] Respiratory 26 H 26 H 26 H Rate Blood Pressure 109/59 109/59 124/72 O2 Sat by Pulse 95 97 95 Oximetry 07/26/21 07/26/21 07/26/21 02:15 02:31 02:45 Temperature Pulse Rate 44 L 43 L 43 L Pulse Rate [ From Monitor] Respiratory 26 H 26 H 26 H Rate Blood Pressure 124/72 124/72 124/72 O2 Sat by Pulse 96 96 95 Oximetry 07/26/21 07/26/21 07/26/21 03:00 03:15 03:31 Temperature Pulse Rate 42 L 41 L 41 L Pulse Rate [ From Monitor] Respiratory 26 H 26 H 26 H Rate Blood Pressure 109/60 124/72 124/72 O2 Sat by Pulse 94 96 97 Oximetry 07/26/21 07/26/21 07/26/21 03:42 03:45 04:00 Temperature 98.9 F Pulse Rate 41 L 69 Pulse Rate [ From Monitor] Respiratory 26 H 14 Rate Blood Pressure 124/72 107/68 O2 Sat by Pulse 97 96 Oximetry 07/26/21 07/26/21 07/26/21 04:12 04:15 04:31 Temperature Pulse Rate 45 L 45 L 41 L Pulse Rate [ From Monitor] Respiratory 26 H 25 H Rate Blood Pressure 135/65 107/68 107/68 O2 Sat by Pulse 96 96 95 Oximetry 07/26/21 07/26/21 07/26/21 04:45 05:01 05:15 Temperature Pulse Rate 42 L 42 L 42 L Pulse Rate [ From Monitor] Respiratory 26 H 26 H 26 H Rate Blood Pressure 107/68 123/69 123/69 O2 Sat by Pulse 94 94 96 Oximetry 07/26/21 07/26/21 07/26/21 05:31 05:45 06:00 Temperature Pulse Rate 40 L 39 L 39 L Pulse Rate [ From Monitor] Respiratory 26 H 26 H 26 H Rate Blood Pressure 123/69 123/69 118/67 O2 Sat by Pulse 96 96 96 Oximetry 07/26/21 07/26/21 07/26/21 06:15 06:31 06:45 Temperature Pulse Rate 40 L 38 L 37 L Pulse Rate [ From Monitor] Respiratory 26 H 26 H 26 H Rate Blood Pressure 123/69 123/69 123/69 O2 Sat by Pulse 98 97 97 Oximetry 07/26/21 07/26/21 07/26/21 07:00 07:15 07:16 Temperature 98.5 F Pulse Rate 37 L 36 L Pulse Rate [ From Monitor] Respiratory 26 H 26 H Rate Blood Pressure 130/73 130/73 O2 Sat by Pulse 96 97 Oximetry 07/26/21 07/26/21 07/26/21 07:31 07:45 08:00 Temperature Pulse Rate 40 L 39 L Pulse Rate [ 40 L From Monitor] Respiratory 26 H 26 H 26 H Rate Blood Pressure 130/73 130/73 O2 Sat by Pulse 97 97 97 Oximetry 07/26/21 08:27 Temperature Pulse Rate 46 L Pulse Rate [ From Monitor] Respiratory Rate Blood Pressure 142/78 O2 Sat by Pulse 97 Oximetry Constitutional: no acute distress, comatose ENT: other (orally intubated and sedated) Ascultation: Bilateral: diminished breath sounds Cardiovascular: regular rate and rhythm Gastrointestinal: normoactive bowel sounds, soft, non-tender Integumentary: normal Extremities: no cyanosis Neurologic: other (Sedated) CBC and BMP: 07/26/21 06:07 07/26/21 06:07 ABG, PT/INR, D-dimer: ABG ABG pH 7.414 (7.320-7.450) 07/26/21 03:17 POC ABG pCO2 46.3 mmHg (32.0-48.0) 07/26/21 03:17 ABG pCO2 35.2 mm Hg 07/19/21 Unknown POC ABG pO2 73.7 mmHg (83-108) L 07/26/21 03:17 ABG pO2 64.2 mm Hg (80.0-90.0) L 07/19/21 Unknown POC ABG HCO3 29.0 07/26/21 03:17 ABG O2 Saturation 94.1 (0-100) 07/26/21 03:17 PT/INR, D-dimer PT 15.1 Sec. (12.2-14.9) H 07/18/21 16:00 INR 1.13 (0.87-1.13) 07/18/21 16:00 D-Dimer > 75771 ng/mlDDU (0-234) H 07/18/21 16:00 Abnormal lab findings: Abnormal Labs 07/18/21 07/18/21 07/18/21 16:00 16:00 16:00 WBC RBC Hgb Hct RDW 15.3 H Lymph % (Auto) 7.9 L Lymph # (Auto) 0.8 L Seg Neutrophils % 86.3 H Seg Neuts % (Manual) Lymphocytes % (Manual) Seg Neutrophils # 9.0 H Seg Neutrophils # Man Lymphocytes # (Manual) PT 15.1 H D-Dimer > 94224 H ABG pH POC ABG pCO2 POC ABG pO2 ABG pO2 ABG O2 Saturation ABG Base Excess ABG Hemoglobin ABG Oxyhemoglobin ABG Sodium ABG Chloride ABG Glucose Oxyhemoglobin Carboxyhemoglobin Sodium Potassium 3.5 L Chloride Carbon Dioxide 20 L BUN 19 H Creatinine Glucose 140 H POC Glucose Calcium Magnesium Ferritin AST 43 H Lactate Dehydrogenase 705 H Total Creatine Kinase 157 H Troponin T 0.106 H* C-Reactive Protein 33.00 H Total Protein Albumin 3.2 L Triglycerides 156 H HDL Cholesterol 33 L Arterial Blood Glucose Arterial Blood Ionized Calcium Urine WBC (Auto) Vancomycin Trough Salicylates Acetaminophen Coronavirus (PCR) 07/18/21 07/18/21 07/18/21 16:00 16:00 16:00 WBC RBC Hgb Hct RDW Lymph % (Auto) Lymph # (Auto) Seg Neutrophils % Seg Neuts % (Manual) Lymphocytes % (Manual) Seg Neutrophils # Seg Neutrophils # Man Lymphocytes # (Manual) PT D-Dimer ABG pH POC ABG pCO2 POC ABG pO2 ABG pO2 ABG O2 Saturation ABG Base Excess ABG Hemoglobin ABG Oxyhemoglobin ABG Sodium ABG Chloride ABG Glucose Oxyhemoglobin Carboxyhemoglobin Sodium Potassium Chloride Carbon Dioxide BUN Creatinine Glucose POC Glucose Calcium Magnesium Ferritin 657.0 H AST Lactate Dehydrogenase Total Creatine Kinase Troponin T C-Reactive Protein Total Protein Albumin Triglycerides HDL Cholesterol Arterial Blood Glucose Arterial Blood Ionized Calcium Urine WBC (Auto) Vancomycin Trough Salicylates < 0.3 L Acetaminophen 5.7 L Coronavirus (PCR) 07/18/21 07/18/21 07/19/21 Unknown Unknown 04:33 WBC RBC Hgb Hct RDW Lymph % (Auto) Lymph # (Auto) Seg Neutrophils % Seg Neuts % (Manual) Lymphocytes % (Manual) Seg Neutrophils # Seg Neutrophils # Man Lymphocytes # (Manual) PT D-Dimer ABG pH 7.275 L POC ABG pCO2 POC ABG pO2 68.7 L 53.1 L ABG pO2 ABG O2 Saturation ABG Base Excess ABG Hemoglobin ABG Oxyhemoglobin 88.3 L 85.3 L ABG Sodium ABG Chloride 109.0 H ABG Glucose 170 H 150 H Oxyhemoglobin Carboxyhemoglobin 0 L 0.3 L Sodium Potassium Chloride Carbon Dioxide BUN Creatinine Glucose POC Glucose Calcium Magnesium Ferritin AST Lactate Dehydrogenase Total Creatine Kinase Troponin T C-Reactive Protein Total Protein Albumin Triglycerides HDL Cholesterol Arterial Blood Glucose 170 H 150 H Arterial Blood Ionized Calcium Urine WBC (Auto) 9.0 H Vancomycin Trough Salicylates Acetaminophen Coronavirus (PCR) 07/19/21 07/19/21 07/19/21 04:59 04:59 Unknown WBC RBC Hgb Hct RDW 16.0 H Lymph % (Auto) 10.7 L Lymph # (Auto) 1.1 L Seg Neutrophils % 84.3 H Seg Neuts % (Manual) Lymphocytes % (Manual) Seg Neutrophils # 8.7 H Seg Neutrophils # Man Lymphocytes # (Manual) PT D-Dimer ABG pH POC ABG pCO2 POC ABG pO2 ABG pO2 ABG O2 Saturation ABG Base Excess ABG Hemoglobin ABG Oxyhemoglobin ABG Sodium ABG Chloride ABG Glucose Oxyhemoglobin Carboxyhemoglobin Sodium Potassium Chloride 108.8 H Carbon Dioxide 21 L BUN 28 H Creatinine 1.8 H Glucose 145 H POC Glucose Calcium 7.8 L Magnesium Ferritin AST Lactate Dehydrogenase Total Creatine Kinase Troponin T C-Reactive Protein Total Protein 6.2 L Albumin 3.2 L Triglycerides HDL Cholesterol Arterial Blood Glucose Arterial Blood Ionized Calcium Urine WBC (Auto) Vancomycin Trough Salicylates Acetaminophen Coronavirus (PCR) Positive A 07/19/21 07/20/21 07/20/21 Unknown 00:14 04:44 WBC RBC Hgb Hct RDW Lymph % (Auto) Lymph # (Auto) Seg Neutrophils % Seg Neuts % (Manual) Lymphocytes % (Manual) Seg Neutrophils # Seg Neutrophils # Man Lymphocytes # (Manual) PT D-Dimer ABG pH POC ABG pCO2 POC ABG pO2 ABG pO2 64.2 L ABG O2 Saturation 93.2 L ABG Base Excess -4.5 L ABG Hemoglobin 11.0 L ABG Oxyhemoglobin ABG Sodium ABG Chloride ABG Glucose Oxyhemoglobin 91.9 L Carboxyhemoglobin Sodium Potassium Chloride 112.2 H Carbon Dioxide BUN 38 H Creatinine 1.3 H Glucose 156 H POC Glucose 164 H Calcium 8.1 L Magnesium 3.10 H Ferritin AST Lactate Dehydrogenase Total Creatine Kinase Troponin T C-Reactive Protein Total Protein Albumin 2.8 L Triglycerides HDL Cholesterol Arterial Blood Glucose Arterial Blood Ionized Calcium Urine WBC (Auto) Vancomycin Trough Salicylates Acetaminophen Coronavirus (PCR) 07/20/21 07/20/21 07/20/21 04:44 05:00 05:40 WBC RBC 3.42 L Hgb 9.7 L Hct 29.3 L RDW 16.1 H Lymph % (Auto) Lymph # (Auto) Seg Neutrophils % Seg Neuts % (Manual) Lymphocytes % (Manual) Seg Neutrophils # Seg Neutrophils # Man Lymphocytes # (Manual) PT D-Dimer ABG pH POC ABG pCO2 POC ABG pO2 139.0 H ABG pO2 ABG O2 Saturation ABG Base Excess ABG Hemoglobin 10.1 L ABG Oxyhemoglobin ABG Sodium ABG Chloride 113.0 H ABG Glucose 155 H Oxyhemoglobin Carboxyhemoglobin 0.3 L Sodium Potassium Chloride Carbon Dioxide BUN Creatinine Glucose POC Glucose 164 H Calcium Magnesium Ferritin AST Lactate Dehydrogenase Total Creatine Kinase Troponin T C-Reactive Protein Total Protein Albumin Triglycerides HDL Cholesterol Arterial Blood Glucose 155 H Arterial Blood Ionized Calcium 4.4 L Urine WBC (Auto) Vancomycin Trough Salicylates Acetaminophen Coronavirus (PCR) 07/20/21 07/20/21 07/21/21 11:40 17:48 03:31 WBC RBC Hgb Hct RDW Lymph % (Auto) Lymph # (Auto) Seg Neutrophils % Seg Neuts % (Manual) Lymphocytes % (Manual) Seg Neutrophils # Seg Neutrophils # Man Lymphocytes # (Manual) PT D-Dimer ABG pH POC ABG pCO2 POC ABG pO2 ABG pO2 ABG O2 Saturation ABG Base Excess ABG Hemoglobin ABG Oxyhemoglobin ABG Sodium ABG Chloride ABG Glucose Oxyhemoglobin Carboxyhemoglobin Sodium Potassium Chloride Carbon Dioxide BUN Creatinine Glucose POC Glucose 137 H 143 H 157 H Calcium Magnesium Ferritin AST Lactate Dehydrogenase Total Creatine Kinase Troponin T C-Reactive Protein Total Protein Albumin Triglycerides HDL Cholesterol Arterial Blood Glucose Arterial Blood Ionized Calcium Urine WBC (Auto) Vancomycin Trough Salicylates Acetaminophen Coronavirus (PCR) 07/21/21 07/21/21 07/21/21 04:30 04:52 05:21 WBC RBC Hgb Hct RDW Lymph % (Auto) Lymph # (Auto) Seg Neutrophils % Seg Neuts % (Manual) Lymphocytes % (Manual) Seg Neutrophils # Seg Neutrophils # Man Lymphocytes # (Manual) PT D-Dimer ABG pH POC ABG pCO2 31.7 L POC ABG pO2 77.6 L ABG pO2 ABG O2 Saturation ABG Base Excess ABG Hemoglobin 10.2 L ABG Oxyhemoglobin ABG Sodium 148.3 H ABG Chloride 120.0 H ABG Glucose 168 H Oxyhemoglobin Carboxyhemoglobin 0.2 L Sodium 150 H Potassium Chloride 115.7 H Carbon Dioxide BUN 49 H Creatinine 1.4 H Glucose 185 H POC Glucose 170 H Calcium 8.3 L Magnesium Ferritin AST Lactate Dehydrogenase Total Creatine Kinase Troponin T C-Reactive Protein Total Protein Albumin 3.0 L Triglycerides HDL Cholesterol Arterial Blood Glucose 168 H Arterial Blood Ionized Calcium 4.4 L Urine WBC (Auto) Vancomycin Trough Salicylates Acetaminophen Coronavirus (PCR) 07/21/21 07/21/21 07/21/21 11:17 17:26 23:40 WBC RBC Hgb Hct RDW Lymph % (Auto) Lymph # (Auto) Seg Neutrophils % Seg Neuts % (Manual) Lymphocytes % (Manual) Seg Neutrophils # Seg Neutrophils # Man Lymphocytes # (Manual) PT D-Dimer ABG pH POC ABG pCO2 POC ABG pO2 ABG pO2 ABG O2 Saturation ABG Base Excess ABG Hemoglobin ABG Oxyhemoglobin ABG Sodium ABG Chloride ABG Glucose Oxyhemoglobin Carboxyhemoglobin Sodium Potassium Chloride Carbon Dioxide BUN Creatinine Glucose POC Glucose 176 H 184 H 161 H Calcium Magnesium Ferritin AST Lactate Dehydrogenase Total Creatine Kinase Troponin T C-Reactive Protein Total Protein Albumin Triglycerides HDL Cholesterol Arterial Blood Glucose Arterial Blood Ionized Calcium Urine WBC (Auto) Vancomycin Trough Salicylates Acetaminophen Coronavirus (PCR) 07/22/21 07/22/21 07/22/21 03:30 04:39 05:29 WBC RBC Hgb Hct RDW Lymph % (Auto) Lymph # (Auto) Seg Neutrophils % Seg Neuts % (Manual) Lymphocytes % (Manual) Seg Neutrophils # Seg Neutrophils # Man Lymphocytes # (Manual) PT D-Dimer ABG pH POC ABG pCO2 POC ABG pO2 67.4 L ABG pO2 ABG O2 Saturation ABG Base Excess ABG Hemoglobin 10.4 L ABG Oxyhemoglobin 91.8 L ABG Sodium 118.4 L ABG Chloride 114.0 H ABG Glucose 189 H Oxyhemoglobin Carboxyhemoglobin 0.2 L Sodium 146 H Potassium Chloride 112.8 H Carbon Dioxide 21 L BUN 46 H Creatinine Glucose 191 H POC Glucose 191 H Calcium Magnesium Ferritin AST Lactate Dehydrogenase Total Creatine Kinase Troponin T C-Reactive Protein Total Protein Albumin 2.9 L Triglycerides HDL Cholesterol Arterial Blood Glucose 189 H Arterial Blood Ionized Calcium 4.5 L Urine WBC (Auto) Vancomycin Trough Salicylates Acetaminophen Coronavirus (PCR) 07/22/21 07/22/21 07/22/21 12:17 17:54 23:34 WBC RBC Hgb Hct RDW Lymph % (Auto) Lymph # (Auto) Seg Neutrophils % Seg Neuts % (Manual) Lymphocytes % (Manual) Seg Neutrophils # Seg Neutrophils # Man Lymphocytes # (Manual) PT D-Dimer ABG pH POC ABG pCO2 POC ABG pO2 ABG pO2 ABG O2 Saturation ABG Base Excess ABG Hemoglobin ABG Oxyhemoglobin ABG Sodium ABG Chloride ABG Glucose Oxyhemoglobin Carboxyhemoglobin Sodium Potassium Chloride Carbon Dioxide BUN Creatinine Glucose POC Glucose 206 H 213 H 164 H Calcium Magnesium Ferritin AST Lactate Dehydrogenase Total Creatine Kinase Troponin T C-Reactive Protein Total Protein Albumin Triglycerides HDL Cholesterol Arterial Blood Glucose Arterial Blood Ionized Calcium Urine WBC (Auto) Vancomycin Trough Salicylates Acetaminophen Coronavirus (PCR) 07/23/21 07/23/21 07/23/21 03:30 05:21 09:02 WBC RBC Hgb Hct RDW Lymph % (Auto) Lymph # (Auto) Seg Neutrophils % Seg Neuts % (Manual) Lymphocytes % (Manual) Seg Neutrophils # Seg Neutrophils # Man Lymphocytes # (Manual) PT D-Dimer ABG pH POC ABG pCO2 POC ABG pO2 70.9 L ABG pO2 ABG O2 Saturation ABG Base Excess ABG Hemoglobin 10.9 L ABG Oxyhemoglobin 92.9 L ABG Sodium 130.2 L ABG Chloride 109.0 H ABG Glucose 177 H Oxyhemoglobin Carboxyhemoglobin 0.1 L Sodium Potassium 5.1 H Chloride Carbon Dioxide BUN 32 H Creatinine Glucose 200 H POC Glucose 191 H Calcium Magnesium Ferritin AST Lactate Dehydrogenase Total Creatine Kinase Troponin T C-Reactive Protein Total Protein Albumin Triglycerides HDL Cholesterol Arterial Blood Glucose 177 H Arterial Blood Ionized Calcium 4.3 L Urine WBC (Auto) Vancomycin Trough Salicylates Acetaminophen Coronavirus (PCR) 07/23/21 07/23/21 07/23/21 09:02 11:34 17:52 WBC 13.8 H RBC Hgb Hct RDW 15.7 H Lymph % (Auto) Lymph # (Auto) Seg Neutrophils % Seg Neuts % (Manual) Lymphocytes % (Manual) Seg Neutrophils # Seg Neutrophils # Man Lymphocytes # (Manual) PT D-Dimer ABG pH POC ABG pCO2 POC ABG pO2 ABG pO2 ABG O2 Saturation ABG Base Excess ABG Hemoglobin ABG Oxyhemoglobin ABG Sodium ABG Chloride ABG Glucose Oxyhemoglobin Carboxyhemoglobin Sodium Potassium Chloride Carbon Dioxide BUN Creatinine Glucose POC Glucose 208 H 158 H Calcium Magnesium Ferritin AST Lactate Dehydrogenase Total Creatine Kinase Troponin T C-Reactive Protein Total Protein Albumin Triglycerides HDL Cholesterol Arterial Blood Glucose Arterial Blood Ionized Calcium Urine WBC (Auto) Vancomycin Trough Salicylates Acetaminophen Coronavirus (PCR) 07/23/21 07/24/21 07/24/21 23:28 03:06 05:01 WBC RBC Hgb Hct RDW Lymph % (Auto) Lymph # (Auto) Seg Neutrophils % Seg Neuts % (Manual) Lymphocytes % (Manual) Seg Neutrophils # Seg Neutrophils # Man Lymphocytes # (Manual) PT D-Dimer ABG pH POC ABG pCO2 POC ABG pO2 51.1 L ABG pO2 ABG O2 Saturation ABG Base Excess ABG Hemoglobin ABG Oxyhemoglobin 85.0 L ABG Sodium 135.5 L ABG Chloride ABG Glucose 131 H Oxyhemoglobin Carboxyhemoglobin 0.4 L Sodium Potassium Chloride Carbon Dioxide BUN 29 H Creatinine Glucose 132 H POC Glucose 142 H Calcium 7.8 L Magnesium Ferritin AST Lactate Dehydrogenase Total Creatine Kinase Troponin T C-Reactive Protein Total Protein Albumin Triglycerides HDL Cholesterol Arterial Blood Glucose 131 H Arterial Blood Ionized Calcium 4.5 L Urine WBC (Auto) Vancomycin Trough Salicylates Acetaminophen Coronavirus (PCR) 07/24/21 07/24/21 07/24/21 05:06 11:38 17:26 WBC RBC Hgb Hct RDW Lymph % (Auto) Lymph # (Auto) Seg Neutrophils % Seg Neuts % (Manual) Lymphocytes % (Manual) Seg Neutrophils # Seg Neutrophils # Man Lymphocytes # (Manual) PT D-Dimer ABG pH POC ABG pCO2 POC ABG pO2 ABG pO2 ABG O2 Saturation ABG Base Excess ABG Hemoglobin ABG Oxyhemoglobin ABG Sodium ABG Chloride ABG Glucose Oxyhemoglobin Carboxyhemoglobin Sodium Potassium Chloride Carbon Dioxide BUN Creatinine Glucose POC Glucose 125 H 215 H 173 H Calcium Magnesium Ferritin AST Lactate Dehydrogenase Total Creatine Kinase Troponin T C-Reactive Protein Total Protein Albumin Triglycerides HDL Cholesterol Arterial Blood Glucose Arterial Blood Ionized Calcium Urine WBC (Auto) Vancomycin Trough Salicylates Acetaminophen Coronavirus (PCR) 07/24/21 07/25/21 07/25/21 23:23 03:33 04:28 WBC RBC Hgb Hct RDW Lymph % (Auto) Lymph # (Auto) Seg Neutrophils % Seg Neuts % (Manual) Lymphocytes % (Manual) Seg Neutrophils # Seg Neutrophils # Man Lymphocytes # (Manual) PT D-Dimer ABG pH POC ABG pCO2 POC ABG pO2 ABG pO2 ABG O2 Saturation ABG Base Excess ABG Hemoglobin ABG Oxyhemoglobin ABG Sodium 135.6 L ABG Chloride ABG Glucose 174 H Oxyhemoglobin Carboxyhemoglobin 0.1 L Sodium Potassium 5.1 H Chloride 107.7 H Carbon Dioxide BUN 29 H Creatinine Glucose 164 H POC Glucose 133 H Calcium 7.3 L Magnesium Ferritin AST Lactate Dehydrogenase Total Creatine Kinase Troponin T C-Reactive Protein Total Protein Albumin Triglycerides HDL Cholesterol Arterial Blood Glucose 174 H Arterial Blood Ionized Calcium Urine WBC (Auto) Vancomycin Trough Salicylates Acetaminophen Coronavirus (PCR) 07/25/21 07/25/21 07/25/21 04:28 04:28 05:17 WBC 14.9 H RBC Hgb Hct RDW 15.6 H Lymph % (Auto) Lymph # (Auto) Seg Neutrophils % Seg Neuts % (Manual) 92.0 H Lymphocytes % (Manual) 2.0 L Seg Neutrophils # Seg Neutrophils # Man 13.7 H Lymphocytes # (Manual) 0.3 L PT D-Dimer ABG pH POC ABG pCO2 POC ABG pO2 ABG pO2 ABG O2 Saturation ABG Base Excess ABG Hemoglobin ABG Oxyhemoglobin ABG Sodium ABG Chloride ABG Glucose Oxyhemoglobin Carboxyhemoglobin Sodium Potassium Chloride Carbon Dioxide BUN Creatinine Glucose POC Glucose 173 H Calcium Magnesium Ferritin AST Lactate Dehydrogenase Total Creatine Kinase Troponin T C-Reactive Protein Total Protein Albumin Triglycerides HDL Cholesterol Arterial Blood Glucose Arterial Blood Ionized Calcium Urine WBC (Auto) Vancomycin Trough 22.9 H Salicylates Acetaminophen Coronavirus (PCR) 07/25/21 07/25/21 07/25/21 11:29 17:00 23:46 WBC RBC Hgb Hct RDW Lymph % (Auto) Lymph # (Auto) Seg Neutrophils % Seg Neuts % (Manual) Lymphocytes % (Manual) Seg Neutrophils # Seg Neutrophils # Man Lymphocytes # (Manual) PT D-Dimer ABG pH POC ABG pCO2 POC ABG pO2 ABG pO2 ABG O2 Saturation ABG Base Excess ABG Hemoglobin ABG Oxyhemoglobin ABG Sodium ABG Chloride ABG Glucose Oxyhemoglobin Carboxyhemoglobin Sodium Potassium Chloride Carbon Dioxide BUN Creatinine Glucose POC Glucose 191 H 184 H 192 H Calcium Magnesium Ferritin AST Lactate Dehydrogenase Total Creatine Kinase Troponin T C-Reactive Protein Total Protein Albumin Triglycerides HDL Cholesterol Arterial Blood Glucose Arterial Blood Ionized Calcium Urine WBC (Auto) Vancomycin Trough Salicylates Acetaminophen Coronavirus (PCR) 07/26/21 07/26/21 07/26/21 03:17 05:33 06:07 WBC 18.0 H RBC Hgb Hct RDW 15.6 H Lymph % (Auto) Lymph # (Auto) Seg Neutrophils % Seg Neuts % (Manual) Lymphocytes % (Manual) Seg Neutrophils # Seg Neutrophils # Man Lymphocytes # (Manual) PT D-Dimer ABG pH POC ABG pCO2 POC ABG pO2 73.7 L ABG pO2 ABG O2 Saturation ABG Base Excess ABG Hemoglobin 11.8 L ABG Oxyhemoglobin 93.6 L ABG Sodium ABG Chloride ABG Glucose 183 H Oxyhemoglobin Carboxyhemoglobin 0.2 L Sodium Potassium Chloride Carbon Dioxide BUN Creatinine Glucose POC Glucose 172 H Calcium Magnesium Ferritin AST Lactate Dehydrogenase Total Creatine Kinase Troponin T C-Reactive Protein Total Protein Albumin Triglycerides HDL Cholesterol Arterial Blood Glucose 183 H Arterial Blood Ionized Calcium Urine WBC (Auto) Vancomycin Trough Salicylates Acetaminophen Coronavirus (PCR) 07/26/21 06:07 WBC RBC Hgb Hct RDW Lymph % (Auto) Lymph # (Auto) Seg Neutrophils % Seg Neuts % (Manual) Lymphocytes % (Manual) Seg Neutrophils # Seg Neutrophils # Man Lymphocytes # (Manual) PT D-Dimer ABG pH POC ABG pCO2 POC ABG pO2 ABG pO2 ABG O2 Saturation ABG Base Excess ABG Hemoglobin ABG Oxyhemoglobin ABG Sodium ABG Chloride ABG Glucose Oxyhemoglobin Carboxyhemoglobin Sodium Potassium 5.4 H Chloride Carbon Dioxide BUN 33 H Creatinine Glucose 155 H POC Glucose Calcium 8.3 L Magnesium Ferritin AST Lactate Dehydrogenase Total Creatine Kinase Troponin T C-Reactive Protein Total Protein Albumin Triglycerides HDL Cholesterol Arterial Blood Glucose Arterial Blood Ionized Calcium Urine WBC (Auto) Vancomycin Trough Salicylates Acetaminophen Coronavirus (PCR)
[2021-07-26 13:49] LABS: Band Neutrophils # (Manual) 0.2 K/mm3; Platelet Estimate Consistent w Auto; RBC Morphology Normal; Total Cells Counted 100
--- NOTE | 2021-07-26 13:58 | Electrocardiograph Report ---
[facility] Test Date: 2021-07-22 Test Time: 10:54:20 Pat Name: KAYLA TUCKER Department: Room: A257 1 Gender: F [employer]er: VISHNU : 1965 Requested By: FRANCINE SORTO Order Number: [id number] Reading MD: Juan Francisco Logan Measurements Intervals [place] Rate: 45 P: 30 [place]: 155 QRS: 5 QRSD: 95 T: 22 QT: 525 QTc: 457 Interpretive Statements Sinus bradycardia Nonspecific early repolarization ST changes Compared to ECG 07/18/2021 14:53:19 Sinus rate has decreased Electronically Signed On 07-26-2021 13:57:52 EDT by Juan Francisco Logan
[2021-07-26 14:59] LABS: C-Reactive Protein 0.4 mg/dL (0.00-1.30)
--- NOTE | 2021-07-26 15:04 | Progress Note ---
Assessment and Plan Assessment and plan: This is a 55-year-old female with obesity, diabetes, anxiety, hypertension admitted with severe Covid 19 pneumonia, multiple subsegmental pulmonary embolism, acute kidney injury and sepsis Neuro: Acute metabolic encephalopathy, h/o anxiety -Sedated with fentanyl and Versed -Goal RASS 0 to -1 -Daily SAT trial when appropriate -Avoid delirium -Bilateral wrist restraints for safety CV: SRSB, mobile echogenic density on the tricuspid valve apparatus -Cardiology consulted, patient recommendations -Cardiology concluded SVT likely aggravated by remdesivir -Normal TSH -Recommend repeat echo in 3 months to evaluate mobile port density -Per cardiology: Given clinical picture density most likely represents a thrombus in the second vegetation Respiratory: ARDS, acute hypoxic respiratory failure, severe COVID-19 bronchopneumonia -Intubated 07/18 with 7.50 ETT at 21 the lips -[facility] consulted, appreciate recommendations -VAP bundle -A.m. vent settings assist control tidal volume 420, rate 26, PEEP of 12, FiO2 60% -Daily CXR and ABG -Daily SAT/SBT trials when appropriate GI: Moderate protein calorie malnutrition, obesity -Nutrition consult -On tube feedings -BR with Senokot -PPI -24-hour fluid balance +541 -Free water flush 200 mL every 4 : Acute kidney injury secondary to sepsis/ATN, hyperkalemia -Strict intake and output -Daily weights -Give Kionex -Trend BMP Heme: Multiple subsegmental pulmonary embolism -On Lovenox -Trend CBC -Monitor temperature curve -SCDs to bilateral lower extremities while in bed -Evidenced on CTA chest-> see results ID: COVID-19 pneumonia, sepsis/septic shock -Infectious disease consulted, patient recommendations -COVID-19 PCR positive -Antibiotics with cefepime -S/p remdesivir and Actemra -Solu-Medrol 60 mg every 8 Endo: Stress hyperglycemia, obesity, h/o DM type II -Avoid hypoglycemia -SSI -Accu-Cheks every 6 The high probability of a clinically significant, sudden or life threatening deterioration of the [multi] system(s) required my full and direct attention, intervention and personal management. The aggregate critical care time was [60] minutes. This time is in addition to time spent performing reported procedures but includes the following: [x] Data Review and interpretation [x] Patient assessment and monitoring of vital signs [x] Documentation [x] Medication orders and management Disposition Plan: icu Total Time Spent with Patient (Minutes): 60 History Interval history: This is a 55-year-old female with obesity, diabetes, anxiety, hypertension who presented to the emergency department on 07/18 via EMS for low oxygen saturations on CPAP in the high 60s to 70s. In the emergency department patient had persistently low oxygen levels and was intubated electively. Work-up in the emergency department revealed bilateral pneumonia, multiple segmental bilateral pulmonary emboli, extensive bilateral Covid bronchopneumonia. Patient was admitted to the hospitalist service with consults to [facility] for acute hypoxic respiratory failure, acute encephalopathy, multiple pulmonary embolism ION and as a COVID-19 PUI. 07/18 admit to hospital via ER; being held in ER for ICU bed 07/19 remains in ER intubated and mechanically ventilated; covid pos 07-20 came to ICU overnight from ER; no bradycardic 07/21/2021. Patient remains orally intubated on mechanical ventilation AC mode rate of 26, tidal volume 420, FiO2 90% and PEEP of 16. Continue empiric antibiotics of ceftriaxone and azithromycin for 5 days total. Complete 5 days of remdesivir and continue IV steroids. Patient received Actemra 07/20/2021. Continue therapeutic anticoagulation with Lovenox 100 mg subcu twice daily. Continue sedation of fentanyl and Versed as tolerated. Continue pressors to maintain MAP > 65. Follow-up echocardiogram. 07/22/2021. Patient on mechanical ventilation AC mode rate of 26, FiO2 70% and PEEP of 16. Continue to wean FiO2 as tolerated. Continue antibiotics per ID recommendations. Patient currently with ceftriaxone and azithromycin. Complete 5 days of remdesivir. Continue IV steroids. Patient received Actemra on 07/20/2021. Continue prone positioning as able. Continue to trend inflammatory markers. 07/23/2021. Patient remains on mechanical ventilation AC mode rate of 26, tidal v olume 420, FiO2 75% and PEEP of 16. Continue to wean FiO2 as tolerated. C ontinue antibiotics per ID recommendations. Patient currently with ceftriaxone and azithromycin. Complete 5 days of remdesivir. Continue IV steroids. Patient received Actemra on 07/20/2021. Continue prone positioning as able. Continue to trend inflammatory markers. ID and pulmonary following. 07/24/2021. Patient remains on mechanical ventilation AC mode rate of 26, tidal volume 420, FiO2 70% and PEEP of 16. Patient with possible tricuspid valve vegetation seen on echocardiogram. Consult cardiology for further evaluation. Continue IV antibiotics per ID recommendations. Prone position is possible. Continue to trend inflammatory markers. 07/25/2021. Patient remains on mechanical ventilation AC mode rate of 26, tidal volume 420, FiO2 70% and PEEP of 14. Patient with possible tricuspid valve vegetation seen on echocardiogram. Consult cardiology for further evaluation. Continue IV antibiotics per ID recommendations. Prone position is possible. Continue to trend inflammatory markers. 07/26: MICHAEL, hyperkalemia Hospitalist Physical - Constitutional Vitals: Temp Pulse Resp BP Pulse Ox 98.8 F 42 L 26 H 118/60 96 07/26/21 12:10 07/26/21 14:00 07/26/21 14:00 07/26/21 14:00 07/26/21 14:00 General appearance: Present: no acute distress, other (sedated) - EENT Eyes: Present: PERRL ENT: hearing intact, poor dentition - Neck Neck: Present: normal ROM - Respiratory Respiratory effort: normal Respiratory: bilateral: diminished - Cardiovascular Rhythm: regular Heart Sounds: Present: S1 & S2. Absent: systolic murmur, diastolic murmur - Extremities Extremities: no ischemia, pulses intact, pulses symmetrical, No edema, normal temperature, normal color, Full ROM Peripheral Pulses: within normal limits - Abdominal General gastrointestinal: soft, non-tender, non-distended, normal bowel sounds - Integumentary Integumentary: Present: warm, dry - Psychiatric Psychiatric: cooperative - Neurologic Neurologic: CNII-XII intact, moves all extremities - Allied Health Allied health notes reviewed: nursing, RT HEART Score - HEART Score Troponin: Troponin T 0.106 ng/mL (0.00-0.029) H* 07/18/21 16:00 Results - Labs CBC & Chem 7: 07/26/21 06:07 07/26/21 14:16 Labs: Laboratory Last Values WBC 18.0 K/mm3 (4.5-11.0) H 07/26/21 06:07 RBC 4.06 M/mm3 (3.65-5.03) 07/26/21 06:07 Hgb 11.5 gm/dl (10.1-14.3) 07/26/21 06:07 Hct 35.3 % (30.3-42.9) 07/26/21 06:07 MCV 87 fl (79-97) 07/26/21 06:07 MCH 28 pg (28-32) 07/26/21 06:07 MCHC 33 % (30-34) 07/26/21 06:07 RDW 15.6 % (13.2-15.2) H 07/26/21 06:07 Plt Count 218 K/mm3 (140-440) 07/26/21 06:07 Lymph % (Auto) 10.7 % (13.4-35.0) L 07/19/21 04:59 [place] % (Auto) 4.8 % (0.0-7.3) 07/19/21 04:59 Eos % (Auto) 0.1 % (0.0-4.3) 07/19/21 04:59 Baso % (Auto) 0.1 % (0.0-1.8) 07/19/21 04:59 Lymph # (Auto) 1.1 K/mm3 (1.2-5.4) L 07/19/21 04:59 [place] # (Auto) 0.5 K/mm3 (0.0-0.8) 07/19/21 04:59 Eos # (Auto) 0.0 K/mm3 (0.0-0.4) 07/19/21 04:59 Baso # (Auto) 0.0 K/mm3 (0.0-0.1) 07/19/21 04:59 Add Manual Diff Complete 07/26/21 06:07 Total Counted 100 07/26/21 06:07 Seg Neutrophils % Service Desk Lead 07/25/21 04:28 Seg Neuts % (Manual) 87.0 % (40.0-70.0) H 07/26/21 06:07 Band Neutrophils % 1.0 % 07/26/21 06:07 Lymphocytes % (Manual) 5.0 % (13.4-35.0) L 07/26/21 06:07 Monocytes % (Manual) 6.0 % (0.0-7.3) 07/26/21 06:07 Metamyelocytes % 1.0 % 07/26/21 06:07 Myelocytes % 1.0 % 07/25/21 04:28 Nucleated RBC % Not Reportable 07/26/21 06:07 Seg Neutrophils # 8.7 K/mm3 (1.8-7.7) H 07/19/21 04:59 Seg Neutrophils # Man 15.7 K/mm3 (1.8-7.7) H 07/26/21 06:07 Band Neutrophils # 0.2 K/mm3 07/26/21 06:07 Lymphocytes # (Manual) 0.9 K/mm3 (1.2-5.4) L 07/26/21 06:07 Abs React Lymphs (Man) 0.0 K/mm3 07/26/21 06:07 Monocytes # (Manual) 1.1 K/mm3 (0.0-0.8) H 07/26/21 06:07 Eosinophils # (Manual) 0.0 K/mm3 (0.0-0.4) 07/26/21 06:07 Basophils # (Manual) 0.0 K/mm3 (0.0-0.1) 07/26/21 06:07 Metamyelocytes # 0.2 K/mm3 07/26/21 06:07 Myelocytes # 0.0 K/mm3 07/26/21 06:07 Promyelocytes # 0.0 K/mm3 07/26/21 06:07 Blast Cells # 0.0 K/mm3 07/26/21 06:07 WBC Morphology Not Reportable 07/26/21 06:07 Hypersegmented Neuts Not Reportable 07/26/21 06:07 Hyposegmented Neuts Not Reportable 07/26/21 06:07 Hypogranular Neuts Not Reportable 07/26/21 06:07 Smudge Cells Not Reportable 07/26/21 06:07 Toxic Granulation Not Reportable 07/26/21 06:07 Toxic Vacuolation Not Reportable 07/26/21 06:07 Dohle Bodies Not Reportable 07/26/21 06:07 Pelger-Huet Anomaly Not Reportable 07/26/21 06:07 Alonzo Rods Not Reportable 07/26/21 06:07 Platelet Estimate Consistent w auto 07/26/21 06:07 Clumped Platelets Not Reportable 07/26/21 06:07 Plt Clumps, EDTA Not Reportable 07/26/21 06:07 Large Platelets Not Reportable 07/26/21 06:07 Giant Platelets Not Reportable 07/26/21 06:07 Platelet Satelliting Not Reportable 07/26/21 06:07 Plt Morphology Comment Not Reportable 07/26/21 06:07 RBC Morphology Normal 07/26/21 06:07 Dimorphic RBCs Not Reportable 07/26/21 06:07 Polychromasia Not Reportable 07/26/21 06:07 Hypochromasia Not Reportable 07/26/21 06:07 Poikilocytosis Not Reportable 07/26/21 06:07 Anisocytosis Not Reportable 07/26/21 06:07 Microcytosis Not Reportable 07/26/21 06:07 Macrocytosis Not Reportable 07/26/21 06:07 Spherocytes Not Reportable 07/26/21 06:07 Pappenheimer Bodies Not Reportable 07/26/21 06:07 Sickle Cells Not Reportable 07/26/21 06:07 Target Cells Not Reportable 07/26/21 06:07 Tear Drop Cells Not Reportable 07/26/21 06:07 Ovalocytes Not Reportable 07/26/21 06:07 Helmet Cells Not Reportable 07/26/21 06:07 [place] Bodies Not Reportable 07/26/21 06:07 [place] Rings Not Reportable 07/26/21 06:07 [place] Cells Not Reportable 07/26/21 06:07 Bite Cells Not Reportable 07/26/21 06:07 Crenated Cell Not Reportable 07/26/21 06:07 Elliptocytes Not Reportable 07/26/21 06:07 Acanthocytes (Spur) Not Reportable 07/26/21 06:07 Rouleaux Not Reportable 07/26/21 06:07 Hemoglobin C Crystals Not Reportable 07/26/21 06:07 Schistocytes Not Reportable 07/26/21 06:07 Malaria parasites Not Reportable 07/26/21 06:07 [place] Bodies Not Reportable 07/26/21 06:07 Hem Pathologist Commnt No 07/26/21 06:07 PT 15.1 Sec. (12.2-14.9) H 07/18/21 16:00 INR 1.13 (0.87-1.13) 07/18/21 16:00 APTT 31.9 Sec. (24.2-36.6) 07/18/21 16:00 D-Dimer > 49124 ng/mlDDU (0-234) H 07/18/21 16:00 ABG pH 7.414 (7.320-7.450) 07/26/21 03:17 POC ABG pCO2 46.3 mmHg (32.0-48.0) 07/26/21 03:17 ABG pCO2 35.2 mm Hg 07/19/21 Unknown POC ABG pO2 73.7 mmHg (83-108) L 07/26/21 03:17 ABG pO2 64.2 mm Hg (80.0-90.0) L 07/19/21 Unknown POC ABG HCO3 29.0 07/26/21 03:17 ABG HCO3 20.1 mmol/L (20.0-26.0) 07/19/21 Unknown ABG O2 Saturation 94.1 (0-100) 07/26/21 03:17 ABG O2 Content 14.3 (0.0-44) 07/19/21 Unknown POC ABG Base Excess 3.8 07/26/21 03:17 ABG Base Excess -4.5 mmol/L (-2.0-3.0) L 07/19/21 Unknown ABG Hemoglobin 11.8 (12.0-17.5) L 07/26/21 03:17 ABG Oxyhemoglobin 93.6 (94-98) L 07/26/21 03:17 ABG Carboxyhemoglobin 0.8 % (0.0-5.0) 07/19/21 Unknown ABG Methemoglobin 0.3 (0.0-1.5) 07/26/21 03:17 ABG Sodium 136.1 mmol/L (136.0-145.0) 07/26/21 03:17 ABG Potassium 4.5 mmol/L (3.40-4.50) 07/26/21 03:17 ABG Chloride 104.0 mmol/L (98-107) 07/26/21 03:17 ABG Glucose 183 mg/dL (65-95) H 07/26/21 03:17 Oxyhemoglobin 91.9 % (95.0-99.0) L 07/19/21 Unknown Carboxyhemoglobin 0.2 (0.5-1.5) L 07/26/21 03:17 FiO2 100 % 07/19/21 Unknown FiO2 % 70.0 07/26/21 03:17 Sodium 141 mmol/L (137-145) 07/26/21 06:07 Potassium 5.4 mmol/L (3.6-5.0) H 07/26/21 06:07 Chloride 103.9 mmol/L (98-107) 07/26/21 06:07 Carbon Dioxide 29 mmol/L (22-30) 07/26/21 06:07 Anion Gap 14 mmol/L 07/26/21 06:07 BUN 33 mg/dL (7-17) H 07/26/21 06:07 Creatinine 0.6 mg/dL (0.6-1.2) 07/26/21 06:07 Estimated GFR > 60 ml/min 07/26/21 06:07 BUN/Creatinine Ratio 55 % 07/26/21 06:07 Glucose 200 mg/dL (65-100) H 07/26/21 14:16 POC Glucose 142 mg/dL (70-105) H 07/26/21 11:46 Lactic Acid 1.40 mmol/L (0.7-2.0) 07/18/21 16:00 Calcium 8.3 mg/dL (8.4-10.2) L 07/26/21 06:07 Phosphorus 3.70 mg/dL (2.5-4.5) 07/20/21 04:44 Magnesium 3.10 mg/dL (1.7-2.3) H 07/20/21 04:44 Ferritin 657.0 ng/mL (10.0-200.0) H 07/18/21 16:00 Total Bilirubin 0.20 mg/dL (0.1-1.2) 07/22/21 04:39 AST 38 units/L (5-40) 07/22/21 04:39 ALT 29 units/L (7-56) 07/22/21 04:39 Alkaline Phosphatase 83 units/L (35-129) 07/22/21 04:39 Ammonia 37.0 umol/L (25-60) 07/18/21 16:00 Lactate Dehydrogenase 515 units/L (91-180) H 07/26/21 14:16 Total Creatine Kinase 157 units/L (30-135) H 07/18/21 16:00 Troponin T 0.106 ng/mL (0.00-0.029) H* 07/18/21 16:00 C-Reactive Protein 0.40 mg/dL (0.00-1.30) 07/26/21 14:16 Total Protein 6.4 g/dL (6.3-8.2) 07/22/21 04:39 Albumin 2.9 g/dL (3.9-5) L 07/22/21 04:39 Albumin/Globulin Ratio 0.8 % 07/22/21 04:39 Triglycerides 156 mg/dL (2-149) H 07/18/21 16:00 Cholesterol 127 mg/dL (50-199) 07/18/21 16:00 LDL Cholesterol Direct 64 mg/dL (50-130) 07/18/21 16:00 HDL Cholesterol 33 mg/dL (40-59) L 07/18/21 16:00 Cholesterol/HDL Ratio 3.84 % 07/18/21 16:00 Procalcitonin 1.28 ng/mL (<0.15) 07/18/21 16:00 TSH 0.469 mlU/mL (0.270-4.200) 07/21/21 04:52 Free T4 1.05 ng/dL (0.76-1.46) 07/21/21 04:52 Arterial Blood Glucose 183 mg/dL (65-95) H 07/26/21 03:17 Arterial Blood Ionized Calcium 4.7 mg/dL (4.6-5.3) 07/26/21 03:17 Urine Color Yellow (Yellow) 07/18/21 Unknown Urine Turbidity Slightly-cloudy (Clear) 07/18/21 Unknown Urine pH 5.0 (5.0-7.0) 07/18/21 Unknown Ur Specific [place] 1.020 (1.003-1.030) 07/18/21 Unknown Urine Protein >500 mg/dL (Negative) 07/18/21 Unknown Urine Glucose (UA) Neg mg/dL (Negative) 07/18/21 Unknown Urine Ketones 20 mg/dL (Negative) 07/18/21 Unknown Urine Blood Neg (Negative) 07/18/21 Unknown Urine Nitrite Neg (Negative) 07/18/21 Unknown Urine Bilirubin Neg (Negative) 07/18/21 Unknown Urine Urobilinogen < 2.0 mg/dL (<2.0) 07/18/21 Unknown Ur Leukocyte Esterase Neg (Negative) 07/18/21 Unknown Urine WBC (Auto) 9.0 /HPF (0.0-6.0) H 07/18/21 Unknown Urine RBC (Auto) 2.0 /HPF (0.0-6.0) 07/18/21 Unknown U Epithel Cells (Auto) 1.0 /HPF (0-13.0) 07/18/21 Unknown Urine Bacteria (Auto) 1+ /HPF (Negative) 07/18/21 Unknown Amorphous Crystals Few 07/18/21 Unknown Urine Mucus Few /HPF 07/18/21 Unknown Vancomycin Trough 22.9 ug/mL (5.0-20.0) H 07/25/21 04:28 Salicylates < 0.3 mg/dL (2.8-20.0) L 07/18/21 16:00 Urine Opiates Screen Negative 07/18/21 Unknown Urine Methadone Screen Negative 07/18/21 Unknown Acetaminophen 5.7 ug/mL (10.0-30.0) L 07/18/21 16:00 Ur Barbiturates Screen Negative 07/18/21 Unknown Ur Phencyclidine Scrn Negative 07/18/21 Unknown Ur Amphetamines Screen Negative 07/18/21 Unknown U Benzodiazepines Scrn Negative 07/18/21 Unknown Urine Cocaine Screen Negative 07/18/21 Unknown U Marijuana (THC) Screen Negative 07/18/21 Unknown Drugs of Abuse Note Disclamer 07/18/21 Unknown Plasma/Serum Alcohol < 0.01 % (0-0.07) 07/18/21 16:00 Coronavirus (PCR) Positive (Negative) A 07/19/21 Unknown Blood Type O POSITIVE 07/18/21 16:05 Antibody Screen Negative 07/18/21 16:05 Guzman/IV: Voiding Method Indwelling Catheter Active Medications - Current Medications Current Medications: Generic Name Dose Route Start Last Admin Trade Name Freq PRN Reason Stop Dose Admin Acetaminophen 650 mg 07/18/21 22:49 Acetaminophen 325 Mg Tab PO Q4H PRN Pain MILD(1-3)/Fever >100.5/URENA Lipase/Protease/Amylase 1 each 07/18/21 22:56 Lipase 10,500/Protease 25,000/Amylase 43,750 (Units) Dr Alvarado FEEDTUBE PRN PRN For Clogged Feeding Tube Enoxaparin Sodium 100 mg 07/19/21 10:00 09/06/21 09:09 Enoxaparin 100 Mg/1 Ml Inj SUB-Q 100 mg Q12HR [facility] Administration Protocol Famotidine 20 mg 07/18/21 22:00 07/26/21 09:09 Famotidine 20 Mg/2 Ml Inj IV 20 mg BID NICOLE Administration Fentanyl 50 mcg 07/18/21 14:41 Fentanyl 100 Mcg/2 Ml Inj IV Q10MIN PRN ANALGESIA Hydrophilic Ointment 1 applic 07/18/21 14:41 Lip Therapy Vaseline TP Q2HR PRN Dry Lips Fentanyl Citrate 2,000 mcg in 100 mls @ 4.915 mls/hr 07/18/21 16:00 07/26/21 12:46 Fentanyl Drip Premix IV 4 mcg/kg/hr TITR NICOLE 19.66 mls/hr Administration Protocol 1 MCG/KG/HR Midazolam HCl 100 mg/ Sodium 100 mls @ 2 mls/hr 07/18/21 19:00 07/26/21 07:00 Chloride IV 5 mg/hr TITR NICOLE 5 mls/hr Titration Protocol 2 MG/HR Cefepime HCl 2 gm in 100 mls @ 200 mls/hr 07/25/21 14:00 07/26/21 13:25 Cefepime/Ns 2 Gm/100 Ml IV 200 mls/hr Q8H [facility] Administration Protocol Insulin Human Lispro 0 unit 07/19/21 18:00 07/26/21 12:49 Insulin Lispro 100 Unit/Ml SUB-Q Not Given Q6H [facility] Protocol Methylprednisolone Sodium Succinate 60 mg 07/18/21 23:00 07/26/21 13:24 Methylprednisolone Sod Succinate 125 Mg/2 Ml Inj IV 60 mg Q8HR NICOLE Administration Midazolam HCl 2 mg 07/18/21 18:11 07/22/21 07:56 Midazolam 2 Mg/2 Ml Inj IV 2 mg Q10MIN PRN Administration Sedation Multi-Ingred Cream/Lotion/Oil/Oint 1 applic 07/18/21 14:41 Mineral Oil/Petrolatum, White Ophth Oint 3.5 Gm OU Q4HR PRN Dry Eye(s) Ondansetron HCl 4 mg 07/18/21 22:49 Ondansetron 4 Mg/2 Ml Inj IV Q8H PRN Nausea And Vomiting Senna/Docusate Sodium 1 tab 07/18/21 22:00 07/26/21 09:09 Sennosides/Docusate Sodium 8.6/50 Mg Tab FEEDTUBE 1 tab BID NICOLE Administration Simple Syrup 15 ml 07/18/21 22:56 Simple Syrup 15 Ml FEEDTUBE PRN PRN Hypoglycemia Simple Syrup 30 ml 07/18/21 22:56 Simple Syrup 15 Ml FEEDTUBE PRN PRN Hypoglycemia Sodium Bicarbonate 325 mg 07/18/21 22:56 Sodium Bicarbonate 325 Mg Tab FEEDTUBE PRN PRN For Clogged Feeding Tube Sodium Chloride 10 ml 07/19/21 10:00 07/26/21 09:10 Sodium Chloride 0.9% 10 Ml Flush Syringe IV 10 ml BID NICOLE Administration Sodium Chloride 10 ml 07/18/21 22:49 Sodium Chloride 0.9% 10 Ml Flush Syringe IV PRN PRN LINE FLUSH Sodium Chloride 5 ml 07/20/21 14:38 Sodium Chloride 0.9% 1000 Ml Iv Soln IV PRN PRN ART-LINE Nutrition/Malnutrition Assess - Dietary Evaluation Nutrition/Malnutrition Findings: Nutrition Notes Start: 07/19/21 09:15 Freq: Status: Active Protocol: Document 07/26/21 10:11 CW (Rec: 07/26/21 10:21 CW [id number]) Nutrition Notes Initial or Follow up Reassessment Current Diagnosis Acute Kidney Injury,Diabetes, Hypertension,Respiratory Failure Other Pertinent Diagnosis COVID Current Diet Vital HP at 55 ml/hr Labs/Tests K 5.4 BUN 33 BG 155 Pertinent Medications Senokot Humalog Solumedrol Kionex Height 5 ft 6 in Weight 104.8 kg [place] Body Weight (kg) 59.09 BMI 37.3 Weight Status Obese Subjective/Other Information Pt remains on mechancial vent. TF continues to run at goal. No reports of TF intolerance. Percent of energy/protein needs met: 93%/98% Burn Absent Trauma Absent Difficulty In Swallowing Current % PO Negligible Minimum of two criteria No physical signs of malnutrition #1 Nutrition Diagnosis Inadequate oral intake Diagnosis Progress(for reassessment Continues documentation) Is patient on ventilator? Yes Is Patient Ambulatory and/or Out of Bed No REE-([facility]-confined to bed) 2000.624 Kcal/Kg value to use for calculation 14 Approximate Energy Requirements Using 1467 kcal/Kg Calculation Used for Recommendations Kcal/kg Additional Notes Protein: (>2g/kg IBW) >118g Fluid: 1 ml/kcal or per MD Nutrition Intervention Change Diet Order: Continue Vital HP Nutrition Support: Vital HP at 55 ml/hr Flush 50 ml q4h Kcal 1,320 Protein (gm) 116 Fluid (mL) 1,104 Goal #1 Meet at least 75% of protein and kcal needs via TF Anticipated Discharge Needs: Unable to determine at this time Follow-Up By: 07/29/21 Additional Comments F/u: TF tolerance
[2021-07-26] MEDS: MIDAZOLAM 100 MG in SODIUM CHLORIDE 0.9% 80 ML IV SCH (16:58)
[2021-07-27] MEDS: INSULIN LISPRO 100 UNIT/ML SUB-Q SCH ×4 (00:42→18:19)
[2021-07-27] MEDS: fentaNYL DRIP Premix 2,000 MCG/100 ML BAG IV SCH ×5 (00:42→22:17)
[2021-07-27] MEDS: FREE WATER PO SCH ×5 (05:58→22:17)
[2021-07-27] MEDS: CEFEPIME/NS 2 GM/100 ML 2 GM/100 ML BAG IV SCH ×3 (05:58→22:18)
[2021-07-27 05:59] LABS: Hematocrit 34.3 % (30.3-42.9); Hemoglobin 11.1 gm/dl (10.1-14.3); Mean Corpuscular HGB Conc 32 % (30-34); Mean Corpuscular Volume 87 fl (79-97); Platelet Count 209 K/mm3 (140-440); Red Blood Count 3.96 M/mm3 (3.65-5.03); Red Cell Distribution Width 14.7 % (13.2-15.2)
[2021-07-27 06:07] LABS: Blood Urea Nitrogen 35 mg/dL (7-17); Calcium 8.6 mg/dL (8.4-10.2); Hemolysis Index 13
[2021-07-27 06:08] LABS: BUN/Creatinine Ratio 58
--- NOTE | 2021-07-27 09:55 | XRay Report ---
CHEST 1 VIEW 07/27/2021 9:35 AM INDICATION / CLINICAL INFORMATION: hypoxia. COMPARISON: 07/22/2021 FINDINGS: SUPPORT DEVICES: ET tube 6.6 cm above the mirian HEART / MEDIASTINUM: No significant abnormality. LUNGS / PLEURA: Mild increased interstitial prominence and opacities in bilateral lungs No pneumothor ax. ADDITIONAL FINDINGS: No significant additional findings. IMPRESSION: 1. Bilateral pulmonary opacities persist however appear improved Signer Name: Jt Perez MD Signed: 07/27/2021 9:51 AM Workstation Name: [id number]
--- NOTE | 2021-07-27 10:50 | Progress Note ---
Assessment and Plan Covid 19 pneumonia Multiple pulmonary emboli on CTA chest on lovenox Acute hypoxic respiratory failure Mobile echogenic density on the tricuspid valve apparatus Given clinical picture, density most likely represents a thrombus and less likely a vegetation Sinus bradycardia No pauses or high degree AV block on tele Normal TSH Recommendations: Continue telemetry monitoring. Avoid AV jaylene blocking agents. Subjective Date of service: 07/27/21 Principal diagnosis: COVID pneumonia Interval history: Remains intubated on the vent. Currently she is marked sinus bradycardia, rate 44 on telemetry. Objective Vital Signs Temp Pulse Pulse Resp BP Pulse Ox 07/27/21 08:46 46 L 26 H 130/66 96 07/27/21 08:30 41 L 26 H 130/66 98 07/27/21 08:16 43 L 26 H 130/66 97 07/27/21 08:04 42 L 130/66 96 07/27/21 08:00 98.8 F 49 L 41 L 26 H 130/66 95 07/27/21 07:46 42 L 26 H 146/79 95 07/27/21 07:30 40 L 26 H 146/79 96 07/27/21 07:16 39 L 26 H 146/79 97 07/27/21 07:00 43 L 26 H 143/74 96 07/27/21 06:45 44 L 26 H 146/79 96 07/27/21 06:31 45 L 26 H 146/79 97 07/27/21 06:15 41 L 26 H 146/79 97 07/27/21 06:00 45 L 26 H 146/79 97 07/27/21 05:45 36 L 26 H 123/66 97 07/27/21 05:31 37 L 23 123/66 97 07/27/21 05:15 37 L 26 H 123/66 98 07/27/21 05:00 37 L 26 H 123/66 95 07/27/21 04:45 39 L 26 H 119/60 98 07/27/21 04:35 41 L 119/60 97 07/27/21 04:31 40 L 26 H 119/60 96 07/27/21 04:15 39 L 26 H 119/60 97 07/27/21 04:00 97.6 F 39 L 41 L 26 H 119/60 95 07/27/21 03:45 38 L 25 H 119/65 97 07/27/21 03:31 41 L 26 H 119/65 97 07/27/21 03:15 38 L 26 H 119/65 97 07/27/21 03:00 41 L 26 H 119/65 95 07/27/21 02:45 41 L 26 H 127/68 97 07/27/21 02:31 43 L 26 H 127/68 96 07/27/21 02:15 46 L 26 H 127/68 97 07/27/21 02:01 48 L 26 H 127/68 95 07/27/21 01:45 49 L 26 H 158/78 94 07/27/21 01:31 49 L 26 H 158/78 95 07/27/21 01:15 47 L 26 H 158/78 95 07/27/21 01:00 52 L 26 H 158/78 95 07/27/21 00:45 60 26 H 119/59 96 07/27/21 00:41 57 L 160/83 96 07/27/21 00:31 58 L 26 H 119/59 96 07/27/21 00:15 43 L 26 H 119/59 97 07/27/21 00:01 46 L 26 H 119/59 95 07/27/21 00:00 98.3 F 42 L 41 L 26 H 97 07/26/21 23:45 47 L 26 H 119/59 97 07/26/21 23:37 39 L 26 H 119/59 96 07/26/21 23:31 37 L 26 H 119/59 96 07/26/21 23:15 36 L 26 H 119/59 95 07/26/21 23:00 37 L 26 H 119/59 93 07/26/21 22:45 36 L 26 H 114/56 95 07/26/21 22:31 40 L 26 H 114/56 95 07/26/21 22:15 40 L 26 H 114/56 94 07/26/21 22:01 41 L 26 H 114/56 92 07/26/21 21:45 42 L 26 H 143/76 95 07/26/21 21:31 41 L 26 H 143/76 95 07/26/21 21:15 47 L 26 H 143/76 96 07/26/21 21:01 47 L 26 H 143/76 92 07/26/21 20:45 40 L 26 H 117/65 94 07/26/21 20:31 42 L 26 H 117/65 96 07/26/21 20:23 41 L 117/65 97 07/26/21 20:15 39 L 26 H 117/65 97 07/26/21 20:00 98.4 F 34 L 41 L 26 H 117/65 93 07/26/21 19:45 40 L 26 H 137/79 97 07/26/21 19:31 40 L 26 H 137/79 97 07/26/21 19:15 40 L 26 H 137/79 96 07/26/21 19:00 47 L 26 H 137/79 95 07/26/21 18:45 39 L 26 H 151/74 97 07/26/21 18:31 42 L 26 H 151/74 97 07/26/21 18:15 41 L 26 H 151/74 97 07/26/21 18:01 45 L 26 H 151/74 96 07/26/21 17:45 42 L 26 H 141/77 96 07/26/21 17:31 41 L 26 H 141/77 97 07/26/21 17:15 51 L 26 H 141/77 98 07/26/21 17:01 41 L 26 H 141/77 97 07/26/21 16:45 41 L 26 H 112/60 98 07/26/21 16:32 45 L 112/60 98 07/26/21 16:31 82 11 L 112/60 94 07/26/21 16:19 98.3 F 07/26/21 16:15 39 L 26 H 112/60 98 07/26/21 16:00 40 L 41 L 26 H 112/60 97 07/26/21 15:45 38 L 26 H 110/63 97 07/26/21 15:31 39 L 26 H 110/63 97 07/26/21 15:15 41 L 26 H 110/63 96 07/26/21 15:00 41 L 26 H 110/63 96 07/26/21 14:45 40 L 26 H 118/60 97 07/26/21 14:31 40 L 26 H 118/60 97 07/26/21 14:15 54 L 26 H 118/60 99 07/26/21 14:00 42 L 26 H 118/60 96 07/26/21 13:45 41 L 26 H 112/63 97 07/26/21 13:31 40 L 26 H 112/63 97 07/26/21 13:15 41 L 26 H 112/63 97 07/26/21 13:00 42 L 26 H 112/63 95 07/26/21 12:45 43 L 26 H 131/74 97 07/26/21 12:31 42 L 26 H 131/74 98 07/26/21 12:15 43 L 26 H 131/74 98 07/26/21 12:10 98.8 F 07/26/21 12:00 47 L 42 L 26 H 131/74 95 07/26/21 11:45 43 L 26 H 128/73 97 07/26/21 11:31 61 25 H 128/73 98 07/26/21 11:15 40 L 26 H 128/73 98 07/26/21 11:00 43 L 26 H 128/73 96 - Physical Examination Narrative exam: Deferred due to isolation protocol. General: Other (intubated on the vent) Cardiac: Positive: Bradycardia - Labs and Meds Cardiac Enzymes 07/26/21 Range/Units 14:16 Lactate Dehydrogenase 515 H (91-180) units/L CBC 07/27/21 Range/Units 04:48 WBC 16.5 H (4.5-11.0) K/mm3 RBC 3.96 (3.65-5.03) M/mm3 Hgb 11.1 (10.1-14.3) gm/dl Hct 34.3 (30.3-42.9) % Plt Count 209 (140-440) K/mm3 Comprehensive Metabolic Panel 07/26/21 07/27/21 Range/Units 14:16 04:48 Sodium 137 (137-145) mmol/L Potassium 4.5 (3.6-5.0) mmol/L Chloride 98.9 (98-107) mmol/L Carbon Dioxide 29 (22-30) mmol/L BUN 35 H (7-17) mg/dL Creatinine 0.6 (0.6-1.2) mg/dL Glucose 200 H 216 H (65-100) mg/dL Calcium 8.6 (8.4-10.2) mg/dL
--- NOTE | 2021-07-27 10:59 | Progress Note ---
Assessment and Plan 55 y/o obese female with acute respiratory failure, pulmonary embolism, now with renal failure, most likely all secondary to COVID 19 07/27/21: Ok with advancing ET tube 2-3 cm. Continue to wean FiO2 as tolerated. Repeat CXR post advancement of ET tube. Dropped steroids too 40q8 07/26/21: Back down to 65% like on 07/22 but PEEP is at 12. Will monitor closely. COntinue current level of sedation and high dose steroids. Prognosis is very very guarded. 07/23/21: Dropped FiO2 to 70. Hopeful to wean back down. Keep peep elevated until FiO2 at 50-55%. Continue High dose steroids. Keep RASS at -4. Na is better. Will stop D5W. Updated Daughter (Linda) and [employer] over the phone. If someone could please call them at least one day over the weekend I will call them again on Monday. Prognosis remains very guarded. Explained to them the high mortality rate associated with COVID and mechanical ventilation. 07/22/21: Dropped Fio2 to 65. Continue to wean for sats >88%. keep elevated peep until FiO2 around 50-55% so hopefully in the next 24-36 hours we can get there. Continue sedation to keep rass at -4. Continue high dose steroids. Will continue D5W for now until Free water can control sodium. need CBC in the am along with BMP. Prognosis still remains guarded. Continue lovenox 07/21/21: Dropped FiO2 to 80%. Continue to wean for sats >88%. Keep peep elevated until FiO2 around 50-55%. Continue remdesivir and adequate levels of sedation. Continue high dose steroids. No proning for now. Continue therap eutic lovenox. Prognosis remains guarded. 07/20/21: COVID positive. Started Remdesivir. Renal function improved. COntinue high dose steroids at current dosing for now. Suggest repeat ABG later this afternoon if able, may need art line but BP stable for now. No proning. Agree with therapeutic Lovenox. Guarded prognosis. 1. Follow up COVID testing, continue isolation 2. Agree with high dose IV steroids, if positive, will change to solumedrol 125q8 3. If positive then would need remdesivir and Actemra, hopefully still a candidate given bump in renal function 4. Unable to prone patient at moment, but did increase PEEP to 20 and ordered repeat ABG at 1400 5 Very very guarded prognosis CCT 31 minutes. Subjective Date of service: 07/27/21 Principal diagnosis: COVID pneumonia Interval history: no acute events. Down to 50% FiO2 this am. CXR shows ET tube to be up higher than it should. Objective Vital Signs - 12hr 07/26/21 07/26/21 07/26/21 23:00 23:15 23:31 Temperature Pulse Rate 37 L 36 L 37 L Pulse Rate [ From Monitor] Respiratory 26 H 26 H 26 H Rate Blood Pressure 119/59 119/59 119/59 O2 Sat by Pulse 93 95 96 Oximetry 07/26/21 07/26/21 07/27/21 23:37 23:45 00:00 Temperature 98.3 F Pulse Rate 39 L 47 L 42 L Pulse Rate [ 41 L From Monitor] Respiratory 26 H 26 H 26 H Rate Blood Pressure 119/59 119/59 O2 Sat by Pulse 96 97 97 Oximetry 07/27/21 07/27/21 07/27/21 00:01 00:15 00:31 Temperature Pulse Rate 46 L 43 L 58 L Pulse Rate [ From Monitor] Respiratory 26 H 26 H 26 H Rate Blood Pressure 119/59 119/59 119/59 O2 Sat by Pulse 95 97 96 Oximetry 07/27/21 07/27/21 07/27/21 00:41 00:45 01:00 Temperature Pulse Rate 57 L 60 52 L Pulse Rate [ From Monitor] Respiratory 26 H 26 H Rate Blood Pressure 160/83 119/59 158/78 O2 Sat by Pulse 96 96 95 Oximetry 07/27/21 07/27/21 07/27/21 01:15 01:31 01:45 Temperature Pulse Rate 47 L 49 L 49 L Pulse Rate [ From Monitor] Respiratory 26 H 26 H 26 H Rate Blood Pressure 158/78 158/78 158/78 O2 Sat by Pulse 95 95 94 Oximetry 07/27/21 07/27/21 07/27/21 02:01 02:15 02:31 Temperature Pulse Rate 48 L 46 L 43 L Pulse Rate [ From Monitor] Respiratory 26 H 26 H 26 H Rate Blood Pressure 127/68 127/68 127/68 O2 Sat by Pulse 95 97 96 Oximetry 07/27/21 07/27/21 07/27/21 02:45 03:00 03:15 Temperature Pulse Rate 41 L 41 L 38 L Pulse Rate [ From Monitor] Respiratory 26 H 26 H 26 H Rate Blood Pressure 127/68 119/65 119/65 O2 Sat by Pulse 97 95 97 Oximetry 07/27/21 07/27/21 07/27/21 03:31 03:45 04:00 Temperature 97.6 F Pulse Rate 41 L 38 L 39 L Pulse Rate [ 41 L From Monitor] Respiratory 26 H 25 H 26 H Rate Blood Pressure 119/65 119/65 119/60 O2 Sat by Pulse 97 97 95 Oximetry 07/27/21 07/27/21 07/27/21 04:15 04:31 04:35 Temperature Pulse Rate 39 L 40 L 41 L Pulse Rate [ From Monitor] Respiratory 26 H 26 H Rate Blood Pressure 119/60 119/60 119/60 O2 Sat by Pulse 97 96 97 Oximetry 07/27/21 07/27/21 07/27/21 04:45 05:00 05:15 Temperature Pulse Rate 39 L 37 L 37 L Pulse Rate [ From Monitor] Respiratory 26 H 26 H 26 H Rate Blood Pressure 119/60 123/66 123/66 O2 Sat by Pulse 98 95 98 Oximetry 07/27/21 07/27/21 07/27/21 05:31 05:45 06:00 Temperature Pulse Rate 37 L 36 L 45 L Pulse Rate [ From Monitor] Respiratory 23 26 H 26 H Rate Blood Pressure 123/66 123/66 146/79 O2 Sat by Pulse 97 97 97 Oximetry 07/27/21 07/27/21 07/27/21 06:15 06:31 06:45 Temperature Pulse Rate 41 L 45 L 44 L Pulse Rate [ From Monitor] Respiratory 26 H 26 H 26 H Rate Blood Pressure 146/79 146/79 146/79 O2 Sat by Pulse 97 97 96 Oximetry 07/27/21 07/27/21 07/27/21 07:00 07:16 07:30 Temperature Pulse Rate 43 L 39 L 40 L Pulse Rate [ From Monitor] Respiratory 26 H 26 H 26 H Rate Blood Pressure 143/74 146/79 146/79 O2 Sat by Pulse 96 97 96 Oximetry 07/27/21 07/27/21 07/27/21 07:46 08:00 08:04 Temperature 98.8 F Pulse Rate 42 L 49 L 42 L Pulse Rate [ 41 L From Monitor] Respiratory 26 H 26 H Rate Blood Pressure 146/79 130/66 130/66 O2 Sat by Pulse 95 95 96 Oximetry 07/27/21 07/27/21 07/27/21 08:16 08:30 08:46 Temperature Pulse Rate 43 L 41 L 46 L Pulse Rate [ From Monitor] Respiratory 26 H 26 H 26 H Rate Blood Pressure 130/66 130/66 130/66 O2 Sat by Pulse 97 98 96 Oximetry Constitutional: no acute distress, comatose ENT: other (orally intubated and sedated) Ascultation: Bilateral: diminished breath sounds Cardiovascular: regular rate and rhythm Gastrointestinal: normoactive bowel sounds, soft, non-tender Integumentary: normal Extremities: no cyanosis Neurologic: other (Sedated) CBC and BMP: 07/27/21 04:48 07/27/21 04:48 ABG, PT/INR, D-dimer: ABG ABG pH 7.481 (7.320-7.450) H 07/27/21 04:00 POC ABG pCO2 36.6 mmHg (32.0-48.0) 07/27/21 04:00 ABG pCO2 35.2 mm Hg 07/19/21 Unknown POC ABG pO2 70.4 mmHg (83-108) L 07/27/21 04:00 ABG pO2 64.2 mm Hg (80.0-90.0) L 07/19/21 Unknown POC ABG HCO3 26.7 07/27/21 04:00 ABG O2 Saturation 95.0 (0-100) 07/27/21 04:00 PT/INR, D-dimer PT 15.1 Sec. (12.2-14.9) H 07/18/21 16:00 INR 1.13 (0.87-1.13) 07/18/21 16:00 D-Dimer 6992.45 ng/mlDDU (0-234) H 07/26/21 13:53 Abnormal lab findings: Abnormal Labs 07/18/21 07/18/21 07/18/21 16:00 16:00 16:00 WBC RBC Hgb Hct RDW 15.3 H Lymph % (Auto) 7.9 L Lymph # (Auto) 0.8 L Seg Neutrophils % 86.3 H Seg Neuts % (Manual) Lymphocytes % (Manual) Seg Neutrophils # 9.0 H Seg Neutrophils # Man Lymphocytes # (Manual) Monocytes # (Manual) PT 15.1 H D-Dimer > 74037 H ABG pH POC ABG pCO2 POC ABG pO2 ABG pO2 ABG O2 Saturation ABG Base Excess ABG Hemoglobin ABG Oxyhemoglobin ABG Sodium ABG Chloride ABG Glucose Oxyhemoglobin Carboxyhemoglobin Sodium Potassium 3.5 L Chloride Carbon Dioxide 20 L BUN 19 H Creatinine Glucose 140 H POC Glucose Calcium Magnesium Ferritin AST 43 H Lactate Dehydrogenase 705 H Total Creatine Kinase 157 H Troponin T 0.106 H* C-Reactive Protein 33.00 H Total Protein Albumin 3.2 L Triglycerides 156 H HDL Cholesterol 33 L Arterial Blood Glucose Arterial Blood Ionized Calcium Urine WBC (Auto) Vancomycin Trough Salicylates Acetaminophen Coronavirus (PCR) 07/18/21 07/18/21 07/18/21 16:00 16:00 16:00 WBC RBC Hgb Hct RDW Lymph % (Auto) Lymph # (Auto) Seg Neutrophils % Seg Neuts % (Manual) Lymphocytes % (Manual) Seg Neutrophils # Seg Neutrophils # Man Lymphocytes # (Manual) Monocytes # (Manual) PT D-Dimer ABG pH POC ABG pCO2 POC ABG pO2 ABG pO2 ABG O2 Saturation ABG Base Excess ABG Hemoglobin ABG Oxyhemoglobin ABG Sodium ABG Chloride ABG Glucose Oxyhemoglobin Carboxyhemoglobin Sodium Potassium Chloride Carbon Dioxide BUN Creatinine Glucose POC Glucose Calcium Magnesium Ferritin 657.0 H AST Lactate Dehydrogenase Total Creatine Kinase Troponin T C-Reactive Protein Total Protein Albumin Triglycerides HDL Cholesterol Arterial Blood Glucose Arterial Blood Ionized Calcium Urine WBC (Auto) Vancomycin Trough Salicylates < 0.3 L Acetaminophen 5.7 L Coronavirus (PCR) 07/18/21 07/18/21 07/19/21 Unknown Unknown 04:33 WBC RBC Hgb Hct RDW Lymph % (Auto) Lymph # (Auto) Seg Neutrophils % Seg Neuts % (Manual) Lymphocytes % (Manual) Seg Neutrophils # Seg Neutrophils # Man Lymphocytes # (Manual) Monocytes # (Manual) PT D-Dimer ABG pH 7.275 L POC ABG pCO2 POC ABG pO2 68.7 L 53.1 L ABG pO2 ABG O2 Saturation ABG Base Excess ABG Hemoglobin ABG Oxyhemoglobin 88.3 L 85.3 L ABG Sodium ABG Chloride 109.0 H ABG Glucose 170 H 150 H Oxyhemoglobin Carboxyhemoglobin 0 L 0.3 L Sodium Potassium Chloride Carbon Dioxide BUN Creatinine Glucose POC Glucose Calcium Magnesium Ferritin AST Lactate Dehydrogenase Total Creatine Kinase Troponin T C-Reactive Protein Total Protein Albumin Triglycerides HDL Cholesterol Arterial Blood Glucose 170 H 150 H Arterial Blood Ionized Calcium Urine WBC (Auto) 9.0 H Vancomycin Trough Salicylates Acetaminophen Coronavirus (PCR) 07/19/21 07/19/21 07/19/21 04:59 04:59 Unknown WBC RBC Hgb Hct RDW 16.0 H Lymph % (Auto) 10.7 L Lymph # (Auto) 1.1 L Seg Neutrophils % 84.3 H Seg Neuts % (Manual) Lymphocytes % (Manual) Seg Neutrophils # 8.7 H Seg Neutrophils # Man Lymphocytes # (Manual) Monocytes # (Manual) PT D-Dimer ABG pH POC ABG pCO2 POC ABG pO2 ABG pO2 ABG O2 Saturation ABG Base Excess ABG Hemoglobin ABG Oxyhemoglobin ABG Sodium ABG Chloride ABG Glucose Oxyhemoglobin Carboxyhemoglobin Sodium Potassium Chloride 108.8 H Carbon Dioxide 21 L BUN 28 H Creatinine 1.8 H Glucose 145 H POC Glucose Calcium 7.8 L Magnesium Ferritin AST Lactate Dehydrogenase Total Creatine Kinase Troponin T C-Reactive Protein Total Protein 6.2 L Albumin 3.2 L Triglycerides HDL Cholesterol Arterial Blood Glucose Arterial Blood Ionized Calcium Urine WBC (Auto) Vancomycin Trough Salicylates Acetaminophen Coronavirus (PCR) Positive A 07/19/21 07/20/21 07/20/21 Unknown 00:14 04:44 WBC RBC Hgb Hct RDW Lymph % (Auto) Lymph # (Auto) Seg Neutrophils % Seg Neuts % (Manual) Lymphocytes % (Manual) Seg Neutrophils # Seg Neutrophils # Man Lymphocytes # (Manual) Monocytes # (Manual) PT D-Dimer ABG pH POC ABG pCO2 POC ABG pO2 ABG pO2 64.2 L ABG O2 Saturation 93.2 L ABG Base Excess -4.5 L ABG Hemoglobin 11.0 L ABG Oxyhemoglobin ABG Sodium ABG Chloride ABG Glucose Oxyhemoglobin 91.9 L Carboxyhemoglobin Sodium Potassium Chloride 112.2 H Carbon Dioxide BUN 38 H Creatinine 1.3 H Glucose 156 H POC Glucose 164 H Calcium 8.1 L Magnesium 3.10 H Ferritin AST Lactate Dehydrogenase Total Creatine Kinase Troponin T C-Reactive Protein Total Protein Albumin 2.8 L Triglycerides HDL Cholesterol Arterial Blood Glucose Arterial Blood Ionized Calcium Urine WBC (Auto) Vancomycin Trough Salicylates Acetaminophen Coronavirus (PCR) 07/20/21 07/20/21 07/20/21 04:44 05:00 05:40 WBC RBC 3.42 L Hgb 9.7 L Hct 29.3 L RDW 16.1 H Lymph % (Auto) Lymph # (Auto) Seg Neutrophils % Seg Neuts % (Manual) Lymphocytes % (Manual) Seg Neutrophils # Seg Neutrophils # Man Lymphocytes # (Manual) Monocytes # (Manual) PT D-Dimer ABG pH POC ABG pCO2 POC ABG pO2 139.0 H ABG pO2 ABG O2 Saturation ABG Base Excess ABG Hemoglobin 10.1 L ABG Oxyhemoglobin ABG Sodium ABG Chloride 113.0 H ABG Glucose 155 H Oxyhemoglobin Carboxyhemoglobin 0.3 L Sodium Potassium Chloride Carbon Dioxide BUN Creatinine Glucose POC Glucose 164 H Calcium Magnesium Ferritin AST Lactate Dehydrogenase Total Creatine Kinase Troponin T C-Reactive Protein Total Protein Albumin Triglycerides HDL Cholesterol Arterial Blood Glucose 155 H Arterial Blood Ionized Calcium 4.4 L Urine WBC (Auto) Vancomycin Trough Salicylates Acetaminophen Coronavirus (PCR) 07/20/21 07/20/21 07/21/21 11:40 17:48 03:31 WBC RBC Hgb Hct RDW Lymph % (Auto) Lymph # (Auto) Seg Neutrophils % Seg Neuts % (Manual) Lymphocytes % (Manual) Seg Neutrophils # Seg Neutrophils # Man Lymphocytes # (Manual) Monocytes # (Manual) PT D-Dimer ABG pH POC ABG pCO2 POC ABG pO2 ABG pO2 ABG O2 Saturation ABG Base Excess ABG Hemoglobin ABG Oxyhemoglobin ABG Sodium ABG Chloride ABG Glucose Oxyhemoglobin Carboxyhemoglobin Sodium Potassium Chloride Carbon Dioxide BUN Creatinine Glucose POC Glucose 137 H 143 H 157 H Calcium Magnesium Ferritin AST Lactate Dehydrogenase Total Creatine Kinase Troponin T C-Reactive Protein Total Protein Albumin Triglycerides HDL Cholesterol Arterial Blood Glucose Arterial Blood Ionized Calcium Urine WBC (Auto) Vancomycin Trough Salicylates Acetaminophen Coronavirus (PCR) 07/21/21 07/21/21 07/21/21 04:30 04:52 05:21 WBC RBC Hgb Hct RDW Lymph % (Auto) Lymph # (Auto) Seg Neutrophils % Seg Neuts % (Manual) Lymphocytes % (Manual) Seg Neutrophils # Seg Neutrophils # Man Lymphocytes # (Manual) Monocytes # (Manual) PT D-Dimer ABG pH POC ABG pCO2 31.7 L POC ABG pO2 77.6 L ABG pO2 ABG O2 Saturation ABG Base Excess ABG Hemoglobin 10.2 L ABG Oxyhemoglobin ABG Sodium 148.3 H ABG Chloride 120.0 H ABG Glucose 168 H Oxyhemoglobin Carboxyhemoglobin 0.2 L Sodium 150 H Potassium Chloride 115.7 H Carbon Dioxide BUN 49 H Creatinine 1.4 H Glucose 185 H POC Glucose 170 H Calcium 8.3 L Magnesium Ferritin AST Lactate Dehydrogenase Total Creatine Kinase Troponin T C-Reactive Protein Total Protein Albumin 3.0 L Triglycerides HDL Cholesterol Arterial Blood Glucose 168 H Arterial Blood Ionized Calcium 4.4 L Urine WBC (Auto) Vancomycin Trough Salicylates Acetaminophen Coronavirus (PCR) 07/21/21 07/21/21 07/21/21 11:17 17:26 23:40 WBC RBC Hgb Hct RDW Lymph % (Auto) Lymph # (Auto) Seg Neutrophils % Seg Neuts % (Manual) Lymphocytes % (Manual) Seg Neutrophils # Seg Neutrophils # Man Lymphocytes # (Manual) Monocytes # (Manual) PT D-Dimer ABG pH POC ABG pCO2 POC ABG pO2 ABG pO2 ABG O2 Saturation ABG Base Excess ABG Hemoglobin ABG Oxyhemoglobin ABG Sodium ABG Chloride ABG Glucose Oxyhemoglobin Carboxyhemoglobin Sodium Potassium Chloride Carbon Dioxide BUN Creatinine Glucose POC Glucose 176 H 184 H 161 H Calcium Magnesium Ferritin AST Lactate Dehydrogenase Total Creatine Kinase Troponin T C-Reactive Protein Total Protein Albumin Triglycerides HDL Cholesterol Arterial Blood Glucose Arterial Blood Ionized Calcium Urine WBC (Auto) Vancomycin Trough Salicylates Acetaminophen Coronavirus (PCR) 07/22/21 07/22/21 07/22/21 03:30 04:39 05:29 WBC RBC Hgb Hct RDW Lymph % (Auto) Lymph # (Auto) Seg Neutrophils % Seg Neuts % (Manual) Lymphocytes % (Manual) Seg Neutrophils # Seg Neutrophils # Man Lymphocytes # (Manual) Monocytes # (Manual) PT D-Dimer ABG pH POC ABG pCO2 POC ABG pO2 67.4 L ABG pO2 ABG O2 Saturation ABG Base Excess ABG Hemoglobin 10.4 L ABG Oxyhemoglobin 91.8 L ABG Sodium 118.4 L ABG Chloride 114.0 H ABG Glucose 189 H Oxyhemoglobin Carboxyhemoglobin 0.2 L Sodium 146 H Potassium Chloride 112.8 H Carbon Dioxide 21 L BUN 46 H Creatinine Glucose 191 H POC Glucose 191 H Calcium Magnesium Ferritin AST Lactate Dehydrogenase Total Creatine Kinase Troponin T C-Reactive Protein Total Protein Albumin 2.9 L Triglycerides HDL Cholesterol Arterial Blood Glucose 189 H Arterial Blood Ionized Calcium 4.5 L Urine WBC (Auto) Vancomycin Trough Salicylates Acetaminophen Coronavirus (PCR) 07/22/21 07/22/21 07/22/21 12:17 17:54 23:34 WBC RBC Hgb Hct RDW Lymph % (Auto) Lymph # (Auto) Seg Neutrophils % Seg Neuts % (Manual) Lymphocytes % (Manual) Seg Neutrophils # Seg Neutrophils # Man Lymphocytes # (Manual) Monocytes # (Manual) PT D-Dimer ABG pH POC ABG pCO2 POC ABG pO2 ABG pO2 ABG O2 Saturation ABG Base Excess ABG Hemoglobin ABG Oxyhemoglobin ABG Sodium ABG Chloride ABG Glucose Oxyhemoglobin Carboxyhemoglobin Sodium Potassium Chloride Carbon Dioxide BUN Creatinine Glucose POC Glucose 206 H 213 H 164 H Calcium Magnesium Ferritin AST Lactate Dehydrogenase Total Creatine Kinase Troponin T C-Reactive Protein Total Protein Albumin Triglycerides HDL Cholesterol Arterial Blood Glucose Arterial Blood Ionized Calcium Urine WBC (Auto) Vancomycin Trough Salicylates Acetaminophen Coronavirus (PCR) 07/23/21 07/23/21 07/23/21 03:30 05:21 09:02 WBC RBC Hgb Hct RDW Lymph % (Auto) Lymph # (Auto) Seg Neutrophils % Seg Neuts % (Manual) Lymphocytes % (Manual) Seg Neutrophils # Seg Neutrophils # Man Lymphocytes # (Manual) Monocytes # (Manual) PT D-Dimer ABG pH POC ABG pCO2 POC ABG pO2 70.9 L ABG pO2 ABG O2 Saturation ABG Base Excess ABG Hemoglobin 10.9 L ABG Oxyhemoglobin 92.9 L ABG Sodium 130.2 L ABG Chloride 109.0 H ABG Glucose 177 H Oxyhemoglobin Carboxyhemoglobin 0.1 L Sodium Potassium 5.1 H Chloride Carbon Dioxide BUN 32 H Creatinine Glucose 200 H POC Glucose 191 H Calcium Magnesium Ferritin AST Lactate Dehydrogenase Total Creatine Kinase Troponin T C-Reactive Protein Total Protein Albumin Triglycerides HDL Cholesterol Arterial Blood Glucose 177 H Arterial Blood Ionized Calcium 4.3 L Urine WBC (Auto) Vancomycin Trough Salicylates Acetaminophen Coronavirus (PCR) 07/23/21 07/23/21 07/23/21 09:02 11:34 17:52 WBC 13.8 H RBC Hgb Hct RDW 15.7 H Lymph % (Auto) Lymph # (Auto) Seg Neutrophils % Seg Neuts % (Manual) Lymphocytes % (Manual) Seg Neutrophils # Seg Neutrophils # Man Lymphocytes # (Manual) Monocytes # (Manual) PT D-Dimer ABG pH POC ABG pCO2 POC ABG pO2 ABG pO2 ABG O2 Saturation ABG Base Excess ABG Hemoglobin ABG Oxyhemoglobin ABG Sodium ABG Chloride ABG Glucose Oxyhemoglobin Carboxyhemoglobin Sodium Potassium Chloride Carbon Dioxide BUN Creatinine Glucose POC Glucose 208 H 158 H Calcium Magnesium Ferritin AST Lactate Dehydrogenase Total Creatine Kinase Troponin T C-Reactive Protein Total Protein Albumin Triglycerides HDL Cholesterol Arterial Blood Glucose Arterial Blood Ionized Calcium Urine WBC (Auto) Vancomycin Trough Salicylates Acetaminophen Coronavirus (PCR) 07/23/21 07/24/21 07/24/21 23:28 03:06 05:01 WBC RBC Hgb Hct RDW Lymph % (Auto) Lymph # (Auto) Seg Neutrophils % Seg Neuts % (Manual) Lymphocytes % (Manual) Seg Neutrophils # Seg Neutrophils # Man Lymphocytes # (Manual) Monocytes # (Manual) PT D-Dimer ABG pH POC ABG pCO2 POC ABG pO2 51.1 L ABG pO2 ABG O2 Saturation ABG Base Excess ABG Hemoglobin ABG Oxyhemoglobin 85.0 L ABG Sodium 135.5 L ABG Chloride ABG Glucose 131 H Oxyhemoglobin Carboxyhemoglobin 0.4 L Sodium Potassium Chloride Carbon Dioxide BUN 29 H Creatinine Glucose 132 H POC Glucose 142 H Calcium 7.8 L Magnesium Ferritin AST Lactate Dehydrogenase Total Creatine Kinase Troponin T C-Reactive Protein Total Protein Albumin Triglycerides HDL Cholesterol Arterial Blood Glucose 131 H Arterial Blood Ionized Calcium 4.5 L Urine WBC (Auto) Vancomycin Trough Salicylates Acetaminophen Coronavirus (PCR) 07/24/21 07/24/21 07/24/21 05:06 11:38 17:26 WBC RBC Hgb Hct RDW Lymph % (Auto) Lymph # (Auto) Seg Neutrophils % Seg Neuts % (Manual) Lymphocytes % (Manual) Seg Neutrophils # Seg Neutrophils # Man Lymphocytes # (Manual) Monocytes # (Manual) PT D-Dimer ABG pH POC ABG pCO2 POC ABG pO2 ABG pO2 ABG O2 Saturation ABG Base Excess ABG Hemoglobin ABG Oxyhemoglobin ABG Sodium ABG Chloride ABG Glucose Oxyhemoglobin Carboxyhemoglobin Sodium Potassium Chloride Carbon Dioxide BUN Creatinine Glucose POC Glucose 125 H 215 H 173 H Calcium Magnesium Ferritin AST Lactate Dehydrogenase Total Creatine Kinase Troponin T C-Reactive Protein Total Protein Albumin Triglycerides HDL Cholesterol Arterial Blood Glucose Arterial Blood Ionized Calcium Urine WBC (Auto) Vancomycin Trough Salicylates Acetaminophen Coronavirus (PCR) 07/24/21 07/25/21 07/25/21 23:23 03:33 04:28 WBC RBC Hgb Hct RDW Lymph % (Auto) Lymph # (Auto) Seg Neutrophils % Seg Neuts % (Manual) Lymphocytes % (Manual) Seg Neutrophils # Seg Neutrophils # Man Lymphocytes # (Manual) Monocytes # (Manual) PT D-Dimer ABG pH POC ABG pCO2 POC ABG pO2 ABG pO2 ABG O2 Saturation ABG Base Excess ABG Hemoglobin ABG Oxyhemoglobin ABG Sodium 135.6 L ABG Chloride ABG Glucose 174 H Oxyhemoglobin Carboxyhemoglobin 0.1 L Sodium Potassium 5.1 H Chloride 107.7 H Carbon Dioxide BUN 29 H Creatinine Glucose 164 H POC Glucose 133 H Calcium 7.3 L Magnesium Ferritin AST Lactate Dehydrogenase Total Creatine Kinase Troponin T C-Reactive Protein Total Protein Albumin Triglycerides HDL Cholesterol Arterial Blood Glucose 174 H Arterial Blood Ionized Calcium Urine WBC (Auto) Vancomycin Trough Salicylates Acetaminophen Coronavirus (PCR) 07/25/21 07/25/21 07/25/21 04:28 04:28 05:17 WBC 14.9 H RBC Hgb Hct RDW 15.6 H Lymph % (Auto) Lymph # (Auto) Seg Neutrophils % Seg Neuts % (Manual) 92.0 H Lymphocytes % (Manual) 2.0 L Seg Neutrophils # Seg Neutrophils # Man 13.7 H Lymphocytes # (Manual) 0.3 L Monocytes # (Manual) PT D-Dimer ABG pH POC ABG pCO2 POC ABG pO2 ABG pO2 ABG O2 Saturation ABG Base Excess ABG Hemoglobin ABG Oxyhemoglobin ABG Sodium ABG Chloride ABG Glucose Oxyhemoglobin Carboxyhemoglobin Sodium Potassium Chloride Carbon Dioxide BUN Creatinine Glucose POC Glucose 173 H Calcium Magnesium Ferritin AST Lactate Dehydrogenase Total Creatine Kinase Troponin T C-Reactive Protein Total Protein Albumin Triglycerides HDL Cholesterol Arterial Blood Glucose Arterial Blood Ionized Calcium Urine WBC (Auto) Vancomycin Trough 22.9 H Salicylates Acetaminophen Coronavirus (PCR) 07/25/21 07/25/21 07/25/21 11:29 17:00 23:46 WBC RBC Hgb Hct RDW Lymph % (Auto) Lymph # (Auto) Seg Neutrophils % Seg Neuts % (Manual) Lymphocytes % (Manual) Seg Neutrophils # Seg Neutrophils # Man Lymphocytes # (Manual) Monocytes # (Manual) PT D-Dimer ABG pH POC ABG pCO2 POC ABG pO2 ABG pO2 ABG O2 Saturation ABG Base Excess ABG Hemoglobin ABG Oxyhemoglobin ABG Sodium ABG Chloride ABG Glucose Oxyhemoglobin Carboxyhemoglobin Sodium Potassium Chloride Carbon Dioxide BUN Creatinine Glucose POC Glucose 191 H 184 H 192 H Calcium Magnesium Ferritin AST Lactate Dehydrogenase Total Creatine Kinase Troponin T C-Reactive Protein Total Protein Albumin Triglycerides HDL Cholesterol Arterial Blood Glucose Arterial Blood Ionized Calcium Urine WBC (Auto) Vancomycin Trough Salicylates Acetaminophen Coronavirus (PCR) 07/26/21 07/26/21 07/26/21 03:17 05:33 06:07 WBC 18.0 H RBC Hgb Hct RDW 15.6 H Lymph % (Auto) Lymph # (Auto) Seg Neutrophils % Seg Neuts % (Manual) 87.0 H Lymphocytes % (Manual) 5.0 L Seg Neutrophils # Seg Neutrophils # Man 15.7 H Lymphocytes # (Manual) 0.9 L Monocytes # (Manual) 1.1 H PT D-Dimer ABG pH POC ABG pCO2 POC ABG pO2 73.7 L ABG pO2 ABG O2 Saturation ABG Base Excess ABG Hemoglobin 11.8 L ABG Oxyhemoglobin 93.6 L ABG Sodium ABG Chloride ABG Glucose 183 H Oxyhemoglobin Carboxyhemoglobin 0.2 L Sodium Potassium Chloride Carbon Dioxide BUN Creatinine Glucose POC Glucose 172 H Calcium Magnesium Ferritin AST Lactate Dehydrogenase Total Creatine Kinase Troponin T C-Reactive Protein Total Protein Albumin Triglycerides HDL Cholesterol Arterial Blood Glucose 183 H Arterial Blood Ionized Calcium Urine WBC (Auto) Vancomycin Trough Salicylates Acetaminophen Coronavirus (PCR) 07/26/21 07/26/21 07/26/21 06:07 11:46 13:53 WBC RBC Hgb Hct RDW Lymph % (Auto) Lymph # (Auto) Seg Neutrophils % Seg Neuts % (Manual) Lymphocytes % (Manual) Seg Neutrophils # Seg Neutrophils # Man Lymphocytes # (Manual) Monocytes # (Manual) PT D-Dimer 6992.45 H ABG pH POC ABG pCO2 POC ABG pO2 ABG pO2 ABG O2 Saturation ABG Base Excess ABG Hemoglobin ABG Oxyhemoglobin ABG Sodium ABG Chloride ABG Glucose Oxyhemoglobin Carboxyhemoglobin Sodium Potassium 5.4 H Chloride Carbon Dioxide BUN 33 H Creatinine Glucose 155 H POC Glucose 142 H Calcium 8.3 L Magnesium Ferritin AST Lactate Dehydrogenase Total Creatine Kinase Troponin T C-Reactive Protein Total Protein Albumin Triglycerides HDL Cholesterol Arterial Blood Glucose Arterial Blood Ionized Calcium Urine WBC (Auto) Vancomycin Trough Salicylates Acetaminophen Coronavirus (PCR) 07/26/21 07/26/21 07/26/21 13:53 14:16 17:29 WBC RBC Hgb Hct RDW Lymph % (Auto) Lymph # (Auto) Seg Neutrophils % Seg Neuts % (Manual) Lymphocytes % (Manual) Seg Neutrophils # Seg Neutrophils # Man Lymphocytes # (Manual) Monocytes # (Manual) PT D-Dimer ABG pH POC ABG pCO2 POC ABG pO2 ABG pO2 ABG O2 Saturation ABG Base Excess ABG Hemoglobin ABG Oxyhemoglobin ABG Sodium ABG Chloride ABG Glucose Oxyhemoglobin Carboxyhemoglobin Sodium Potassium Chloride Carbon Dioxide BUN Creatinine Glucose 200 H POC Glucose 185 H Calcium Magnesium Ferritin 348.4 H AST Lactate Dehydrogenase 515 H Total Creatine Kinase Troponin T C-Reactive Protein Total Protein Albumin Triglycerides HDL Cholesterol Arterial Blood Glucose Arterial Blood Ionized Calcium Urine WBC (Auto) Vancomycin Trough Salicylates Acetaminophen Coronavirus (PCR) 07/26/21 07/27/21 07/27/21 23:30 04:00 04:48 WBC 16.5 H RBC Hgb Hct RDW Lymph % (Auto) Lymph # (Auto) Seg Neutrophils % Seg Neuts % (Manual) Lymphocytes % (Manual) Seg Neutrophils # Seg Neutrophils # Man Lymphocytes # (Manual) Monocytes # (Manual) PT D-Dimer ABG pH 7.481 H POC ABG pCO2 POC ABG pO2 70.4 L ABG pO2 ABG O2 Saturation ABG Base Excess ABG Hemoglobin 11.6 L ABG Oxyhemoglobin ABG Sodium 131.9 L ABG Chloride ABG Glucose 207 H Oxyhemoglobin Carboxyhemoglobin Sodium Potassium Chloride Carbon Dioxide BUN Creatinine Glucose POC Glucose 186 H Calcium Magnesium Ferritin AST Lactate Dehydrogenase Total Creatine Kinase Troponin T C-Reactive Protein Total Protein Albumin Triglycerides HDL Cholesterol Arterial Blood Glucose 207 H Arterial Blood Ionized Calcium Urine WBC (Auto) Vancomycin Trough Salicylates Acetaminophen Coronavirus (PCR) 07/27/21 07/27/21 04:48 05:04 WBC RBC Hgb Hct RDW Lymph % (Auto) Lymph # (Auto) Seg Neutrophils % Seg Neuts % (Manual) Lymphocytes % (Manual) Seg Neutrophils # Seg Neutrophils # Man Lymphocytes # (Manual) Monocytes # (Manual) PT D-Dimer ABG pH POC ABG pCO2 POC ABG pO2 ABG pO2 ABG O2 Saturation ABG Base Excess ABG Hemoglobin ABG Oxyhemoglobin ABG Sodium ABG Chloride ABG Glucose Oxyhemoglobin Carboxyhemoglobin Sodium Potassium Chloride Carbon Dioxide BUN 35 H Creatinine Glucose 216 H POC Glucose 201 H Calcium Magnesium Ferritin AST Lactate Dehydrogenase Total Creatine Kinase Troponin T C-Reactive Protein Total Protein Albumin Triglycerides HDL Cholesterol Arterial Blood Glucose Arterial Blood Ionized Calcium Urine WBC (Auto) Vancomycin Trough Salicylates Acetaminophen Coronavirus (PCR)
[2021-07-27] MEDS: FAMOTIDINE 20 MG/2 ML INJ IV SCH ×2 (11:16→22:19)
[2021-07-27] MEDS: ENOXAPARIN 100 MG/1 ML INJ SUB-Q SCH ×2 (11:16→22:18)
[2021-07-27] MEDS: SENNOSIDES/DOCUSATE SODIUM 8.6/50 MG TAB FEEDTUBE SCH ×2 (11:18→22:19)
[2021-07-27] MEDS: MIDAZOLAM 100 MG in SODIUM CHLORIDE 0.9% 80 ML IV SCH (12:41)
[2021-07-27 13:42] LABS: Platelet Estimate Consistent w Auto; RBC Morphology Normal; Total Cells Counted 100
[2021-07-27] MEDS: methylPREDNISolone Sod Succinate 40 MG/1 ML INJ IV SCH ×2 (14:09→22:19)
--- NOTE | 2021-07-27 15:15 | XRay Report ---
XR chest 1V ap INDICATION / CLINICAL INFORMATION: advanced ett. COMPARISON: Radiograph from earlier same day. FINDINGS: SUPPORT DEVICES: The distal tip of the endotracheal tube is difficult to visualize. The tip of the tu be appears to terminate at the mirian. Otherwise unchanged. HEART /PULMONARY VASCULATURE: Unchanged. LUNGS / PLEURA: Lung parenchyma is not significantly changed. No pneumothorax. IMPRESSION: Distal tip of endotracheal tube is difficult to visualize, though appears to terminate at the mirian. Recommend retraction by approximately 3-4 cm. Signer Name: Yimi Gonzalez MD Signed: 07/27/2021 3:11 PM Workstation Name: [id number]
--- NOTE | 2021-07-27 15:22 | Progress Note ---
<CASSIDYKirstyRYANVeronica - Last Filed: 07/27/21 16:59> Assessment and Plan Assessment and plan: This is a 55-year-old female with obesity, diabetes, anxiety, hypertension admitted with severe Covid 19 pneumonia, multiple subsegmental pulmonary embolism, acute kidney injury and sepsis Neuro: Acute metabolic encephalopathy, h/o anxiety -Sedated with fentanyl and Versed -Goal RASS 0 to -1 -Daily SAT trial when appropriate -Avoid delirium -Bilateral wrist restraints for safety CV: SRSB, mobile echogenic density on the tricuspid valve apparatus -Cardiology consulted, appreciate recommendations -Cardiology concluded SB likely aggravated by remdesivir -Normal TSH -Recommend repeat echo in 3 months to evaluate mobile port density -Per cardiology: Given clinical picture density most likely represents a thrombus in the second vegetation Respiratory: ARDS, acute hypoxic respiratory failure, severe COVID-19 bronchopneumonia -Intubated 07/18 with 7.50 ETT at 21 the lips -CCM consulted, appreciate recommendations -VAP bundle -A.m. vent settings assist control TV 420, R 20, PEPP 12, 50% fiO2 -Daily CXR and ABG -Daily SAT/SBT trials when appropriate -RT advanced oett today GI: Moderate protein calorie malnutrition, obesity -Nutrition consult -On tube feedings -BR with Senokot -PPI -24-hour fluid balance -393 -Free water flush 200 mL every 4 : Acute kidney injury secondary to sepsis/ATN, hyperkalemia -Strict intake and output -Daily weights -Give Kionex -Trend BMP Heme: Multiple subsegmental pulmonary embolism, LLE DVT -On Lovenox -Trend CBC -Monitor temperature curve -SCDs to bilateral lower extremities while in bed -Evidenced on CTA chest-> see results -BLE US today shows LLE DVT ID: COVID-19 pneumonia, sepsis/septic shock -Infectious disease consulted, patient recommendations -COVID-19 PCR positive -Antibiotics with cefepime -S/p remdesivir and Actemra -Solu-Medrol 60 mg every 8->weaning per CCM Endo: Stress hyperglycemia, obesity, h/o DM type II -Avoid hypoglycemia -SSI -Accu-Cheks every 6 The high probability of a clinically significant, sudden or life threatening deterioration of the [multi] system(s) required my full and direct attention, intervention and personal management. The aggregate critical care time was [60] minutes. This time is in addition to time spent performing reported procedures but includes the following: [x] Data Review and interpretation [x] Patient assessment and monitoring of vital signs [x] Documentation [x] Medication orders and management Disposition Plan: icu Total Time Spent with Patient (Minutes): 60 History Interval history: This is a 55-year-old female with obesity, diabetes, anxiety, hypertension who presented to the emergency department on 07/18 via EMS for low oxygen saturations on CPAP in the high 60s to 70s. In the emergency department patient had persistently low oxygen levels and was intubated electively. Work-up in the emergency department revealed bilateral pneumonia, multiple segmental bilateral pulmonary emboli, extensive bilateral Covid bronchopneumonia. Patient was admitted to the hospitalist service with consults to [facility] for acute hypoxic respiratory failure, acute encephalopathy, multiple pulmonary embolism ION and as a COVID-19 PUI. 07/18 admit to hospital via ER; being held in ER for ICU bed 07/19 remains in ER intubated and mechanically ventilated; covid pos 07-20 came to ICU overnight from ER; no bradycardic 07/21/2021. Patient remains orally intubated on mechanical ventilation AC mode rate of 26, tidal volume 420, FiO2 90% and PEEP of 16. Continue empiric antibiotics of ceftriaxone and azithromycin for 5 days total. Complete 5 days of remdesivir and continue IV steroids. Patient received Actemra 07/20/2021. Continue therapeutic anticoagulation with Lovenox 100 mg subcu twice daily. Continue sedation of fentanyl and Versed as tolerated. Continue pressors to maintain MAP > 65. Follow-up echocardiogram. 07/22/2021. Patient on mechanical ventilation AC mode rate of 26, FiO2 70% and PEEP of 16. Continue to wean FiO2 as tolerated. Continue antibiotics per ID recommendations. Patient currently with ceftriaxone and azithromycin. Complete 5 days of remdesivir. Continue IV steroids. Patient received Actemra on 07/20/2021. Continue prone positioning as able. Continue to trend inflammatory markers. 07/23/2021. Patient remains on mechanical ventilation AC mode rate of 26, tidal volume 420, FiO2 75% and PEEP of 16. Continue to wean FiO2 as tolerated. Continue antibiotics per ID recommendations. Patient currently with ceftriaxone and azithromycin. Complete 5 days of remdesivir. Continue IV steroids. Patient received Actemra on 07/20/2021. Continue prone positioning as able. Continue to trend inflammatory markers. ID and pulmonary following. 07/24/2021. Patient remains on mechanical ventilation AC mode rate of 26, tidal volume 420, FiO2 70% and PEEP of 16. Patient with possible tricuspid valve vegetation seen on echocardiogram. Consult cardiology for further evaluation. Continue IV antibiotics per ID recommendations. Prone position is possible. Continue to trend inflammatory markers. 07/25/2021. Patient remains on mechanical ventilation AC mode rate of 26, tidal volume 420, FiO2 70% and PEEP of 14. Patient with possible tricuspid valve veg etation seen on echocardiogram. Consult cardiology for further evaluation. Continue IV antibiotics per ID recommendations. Prone position is possible. Continue to trend inflammatory markers. 07/26: MICHAEL, hyperkalemia 07/27: OETT advanced. Remains sedated but able to follow commands. MICHAEL. Hospitalist Physical - Constitutional Vitals: Temp Pulse Resp BP Pulse Ox 98.5 F 59 L 26 H 130/71 90 07/27/21 12:00 07/27/21 11:46 07/27/21 08:46 07/27/21 11:46 07/27/21 11:46 General appearance: Present: no acute distress, other (sedated) - EENT Eyes: Present: PERRL ENT: dentition normal - Neck Neck: Present: normal ROM - Respiratory Respiratory effort: normal Respiratory: bilateral: diminished - Cardiovascular Rhythm: regular Heart Sounds: Present: S1 & S2. Absent: systolic murmur, diastolic murmur - Extremities Extremities: no ischemia, pulses intact, pulses symmetrical, No edema, normal temperature, normal color Peripheral Pulses: within normal limits - Abdominal General gastrointestinal: soft, non-tender, non-distended, normal bowel sounds - Integumentary Integumentary: Present: warm, dry - Psychiatric Psychiatric: other (sedated) - Neurologic Neurologic: other (sedated) - Allied Health Allied health notes reviewed: nursing, RT HEART Score - HEART Score Troponin: Troponin T 0.106 ng/mL (0.00-0.029) H* 07/18/21 16:00 Results - Labs CBC & Chem 7: 07/27/21 04:48 07/27/21 04:48 Labs: Laboratory Last Values WBC 16.5 K/mm3 (4.5-11.0) H 07/27/21 04:48 RBC 3.96 M/mm3 (3.65-5.03) 07/27/21 04:48 Hgb 11.1 gm/dl (10.1-14.3) 07/27/21 04:48 Hct 34.3 % (30.3-42.9) 07/27/21 04:48 MCV 87 fl (79-97) 07/27/21 04:48 MCH 28 pg (28-32) 07/27/21 04:48 MCHC 32 % (30-34) 07/27/21 04:48 RDW 14.7 % (13.2-15.2) 07/27/21 04:48 Plt Count 209 K/mm3 (140-440) 07/27/21 04:48 Lymph % (Auto) 10.7 % (13.4-35.0) L 07/19/21 04:59 Ray % (Auto) 4.8 % (0.0-7.3) 07/19/21 04:59 Eos % (Auto) 0.1 % (0.0-4.3) 07/19/21 04:59 Baso % (Auto) 0.1 % (0.0-1.8) 07/19/21 04:59 Lymph # (Auto) 1.1 K/mm3 (1.2-5.4) L 07/19/21 04:59 Ray # (Auto) 0.5 K/mm3 (0.0-0.8) 07/19/21 04:59 Eos # (Auto) 0.0 K/mm3 (0.0-0.4) 07/19/21 04:59 Baso # (Auto) 0.0 K/mm3 (0.0-0.1) 07/19/21 04:59 Add Manual Diff Complete 07/27/21 04:48 Total Counted 100 07/27/21 04:48 Seg Neutrophils % Environmental Compliance Engineer 07/27/21 04:48 Seg Neuts % (Manual) 92.0 % (40.0-70.0) H 07/27/21 04:48 Band Neutrophils % 1.0 % 07/26/21 06:07 Lymphocytes % (Manual) 3.0 % (13.4-35.0) L 07/27/21 04:48 Monocytes % (Manual) 5.0 % (0.0-7.3) 07/27/21 04:48 Metamyelocytes % 1.0 % 07/26/21 06:07 Myelocytes % 1.0 % 07/25/21 04:28 Nucleated RBC % 1.0 % (0.0-0.9) H 07/27/21 04:48 Seg Neutrophils # 8.7 K/mm3 (1.8-7.7) H 07/19/21 04:59 Seg Neutrophils # Man 15.2 K/mm3 (1.8-7.7) H 07/27/21 04:48 Band Neutrophils # 0.0 K/mm3 07/27/21 04:48 Lymphocytes # (Manual) 0.5 K/mm3 (1.2-5.4) L 07/27/21 04:48 Abs React Lymphs (Man) 0.0 K/mm3 07/27/21 04:48 Monocytes # (Manual) 0.8 K/mm3 (0.0-0.8) 07/27/21 04:48 Eosinophils # (Manual) 0.0 K/mm3 (0.0-0.4) 07/27/21 04:48 Basophils # (Manual) 0.0 K/mm3 (0.0-0.1) 07/27/21 04:48 Metamyelocytes # 0.0 K/mm3 07/27/21 04:48 Myelocytes # 0.0 K/mm3 07/27/21 04:48 Promyelocytes # 0.0 K/mm3 07/27/21 04:48 Blast Cells # 0.0 K/mm3 07/27/21 04:48 WBC Morphology Not Reportable 07/27/21 04:48 Hypersegmented Neuts Not Reportable 07/27/21 04:48 Hyposegmented Neuts Not Reportable 07/27/21 04:48 Hypogranular Neuts Not Reportable 07/27/21 04:48 Smudge Cells Not Reportable 07/27/21 04:48 Toxic Granulation Not Reportable 07/27/21 04:48 Toxic Vacuolation Not Reportable 07/27/21 04:48 Dohle Bodies Not Reportable 07/27/21 04:48 Pelger-Huet Anomaly Not Reportable 07/27/21 04:48 Alonzo Rods Not Reportable 07/27/21 04:48 Platelet Estimate Consistent w auto 07/27/21 04:48 Clumped Platelets Not Reportable 07/27/21 04:48 Plt Clumps, EDTA Not Reportable 07/27/21 04:48 Large Platelets Not Reportable 07/27/21 04:48 Giant Platelets Not Reportable 07/27/21 04:48 Platelet Satelliting Not Reportable 07/27/21 04:48 Plt Morphology Comment Not Reportable 07/27/21 04:48 RBC Morphology Normal 07/27/21 04:48 Dimorphic RBCs Not Reportable 07/27/21 04:48 Polychromasia Not Reportable 07/27/21 04:48 Hypochromasia Not Reportable 07/27/21 04:48 Poikilocytosis Not Reportable 07/27/21 04:48 Anisocytosis Not Reportable 07/27/21 04:48 Microcytosis Not Reportable 07/27/21 04:48 Macrocytosis Not Reportable 07/27/21 04:48 Spherocytes Not Reportable 07/27/21 04:48 Pappenheimer Bodies Not Reportable 07/27/21 04:48 Sickle Cells Not Reportable 07/27/21 04:48 Target Cells Not Reportable 07/27/21 04:48 Tear Drop Cells Not Reportable 07/27/21 04:48 Ovalocytes Not Reportable 07/27/21 04:48 Helmet Cells Not Reportable 07/27/21 04:48 Jacinto-Dresbach Bodies Not Reportable 07/27/21 04:48 [place] Rings Not Reportable 07/27/21 04:48 Marshall Cells Not Reportable 07/27/21 04:48 Bite Cells Not Reportable 07/27/21 04:48 Crenated Cell Not Reportable 07/27/21 04:48 Elliptocytes Not Reportable 07/27/21 04:48 Acanthocytes (Spur) Not Reportable 07/27/21 04:48 Rouleaux Not Reportable 07/27/21 04:48 Hemoglobin C Crystals Not Reportable 07/27/21 04:48 Schistocytes Not Reportable 07/27/21 04:48 Malaria parasites Not Reportable 07/27/21 04:48 Jarvis Bodies Not Reportable 07/27/21 04:48 Hem Pathologist Commnt No 07/27/21 04:48 PT 15.1 Sec. (12.2-14.9) H 07/18/21 16:00 INR 1.13 (0.87-1.13) 07/18/21 16:00 APTT 31.9 Sec. (24.2-36.6) 07/18/21 16:00 D-Dimer 6992.45 ng/mlDDU (0-234) H 07/26/21 13:53 ABG pH 7.481 (7.320-7.450) H 07/27/21 04:00 POC ABG pCO2 36.6 mmHg (32.0-48.0) 07/27/21 04:00 ABG pCO2 35.2 mm Hg 07/19/21 Unknown POC ABG pO2 70.4 mmHg (83-108) L 07/27/21 04:00 ABG pO2 64.2 mm Hg (80.0-90.0) L 07/19/21 Unknown POC ABG HCO3 26.7 07/27/21 04:00 ABG HCO3 20.1 mmol/L (20.0-26.0) 07/19/21 Unknown ABG O2 Saturation 95.0 (0-100) 07/27/21 04:00 ABG O2 Content 14.3 (0.0-44) 07/19/21 Unknown POC ABG Base Excess 3.2 07/27/21 04:00 ABG Base Excess -4.5 mmol/L (-2.0-3.0) L 07/19/21 Unknown ABG Hemoglobin 11.6 (12.0-17.5) L 07/27/21 04:00 ABG Oxyhemoglobin 94.1 (94-98) 07/27/21 04:00 ABG Carboxyhemoglobin 0.8 % (0.0-5.0) 07/19/21 Unknown ABG Methemoglobin 0.3 (0.0-1.5) 07/27/21 04:00 ABG Sodium 131.9 mmol/L (136.0-145.0) L 07/27/21 04:00 ABG Potassium 4.1 mmol/L (3.40-4.50) 07/27/21 04:00 ABG Chloride 102.0 mmol/L (98-107) 07/27/21 04:00 ABG Glucose 207 mg/dL (65-95) H 07/27/21 04:00 Oxyhemoglobin 91.9 % (95.0-99.0) L 07/19/21 Unknown Carboxyhemoglobin 0.6 (0.5-1.5) 07/27/21 04:00 FiO2 100 % 07/19/21 Unknown FiO2 % 50.0 07/27/21 04:00 Sodium 137 mmol/L (137-145) 07/27/21 04:48 Potassium 4.5 mmol/L (3.6-5.0) 07/27/21 04:48 Chloride 98.9 mmol/L (98-107) 07/27/21 04:48 Carbon Dioxide 29 mmol/L (22-30) 07/27/21 04:48 Anion Gap 14 mmol/L 07/27/21 04:48 BUN 35 mg/dL (7-17) H 07/27/21 04:48 Creatinine 0.6 mg/dL (0.6-1.2) 07/27/21 04:48 Estimated GFR > 60 ml/min 07/27/21 04:48 BUN/Creatinine Ratio 58 % 07/27/21 04:48 Glucose 216 mg/dL (65-100) H 07/27/21 04:48 POC Glucose 142 mg/dL (70-105) H 07/27/21 11:36 Lactic Acid 1.40 mmol/L (0.7-2.0) 07/18/21 16:00 Calcium 8.6 mg/dL (8.4-10.2) 07/27/21 04:48 Phosphorus 3.70 mg/dL (2.5-4.5) 07/20/21 04:44 Magnesium 3.10 mg/dL (1.7-2.3) H 07/20/21 04:44 Ferritin 348.4 ng/mL (10.0-200.0) H 07/26/21 13:53 Total Bilirubin 0.20 mg/dL (0.1-1.2) 07/22/21 04:39 AST 38 units/L (5-40) 07/22/21 04:39 ALT 29 units/L (7-56) 07/22/21 04:39 Alkaline Phosphatase 83 units/L (35-129) 07/22/21 04:39 Ammonia 37.0 umol/L (25-60) 07/18/21 16:00 Lactate Dehydrogenase 515 units/L (91-180) H 07/26/21 14:16 Total Creatine Kinase 157 units/L (30-135) H 07/18/21 16:00 Troponin T 0.106 ng/mL (0.00-0.029) H* 07/18/21 16:00 C-Reactive Protein 0.40 mg/dL (0.00-1.30) 07/26/21 14:16 Total Protein 6.4 g/dL (6.3-8.2) 07/22/21 04:39 Albumin 2.9 g/dL (3.9-5) L 07/22/21 04:39 Albumin/Globulin Ratio 0.8 % 07/22/21 04:39 Triglycerides 156 mg/dL (2-149) H 07/18/21 16:00 Cholesterol 127 mg/dL (50-199) 07/18/21 16:00 LDL Cholesterol Direct 64 mg/dL (50-130) 07/18/21 16:00 HDL Cholesterol 33 mg/dL (40-59) L 07/18/21 16:00 Cholesterol/HDL Ratio 3.84 % 07/18/21 16:00 Procalcitonin < 0.05 ng/mL (<0.15) 07/26/21 13:53 TSH 0.469 mlU/mL (0.270-4.200) 07/21/21 04:52 Free T4 1.05 ng/dL (0.76-1.46) 07/21/21 04:52 Arterial Blood Glucose 207 mg/dL (65-95) H 07/27/21 04:00 Arterial Blood Ionized Calcium 4.6 mg/dL (4.6-5.3) 07/27/21 04:00 Urine Color Yellow (Yellow) 07/18/21 Unknown Urine Turbidity Slightly-cloudy (Clear) 07/18/21 Unknown Urine pH 5.0 (5.0-7.0) 07/18/21 Unknown Ur Specific [place] 1.020 (1.003-1.030) 07/18/21 Unknown Urine Protein >500 mg/dL (Negative) 07/18/21 Unknown Urine Glucose (UA) Neg mg/dL (Negative) 07/18/21 Unknown Urine Ketones 20 mg/dL (Negative) 07/18/21 Unknown Urine Blood Neg (Negative) 07/18/21 Unknown Urine Nitrite Neg (Negative) 07/18/21 Unknown Urine Bilirubin Neg (Negative) 07/18/21 Unknown Urine Urobilinogen < 2.0 mg/dL (<2.0) 07/18/21 Unknown Ur Leukocyte Esterase Neg (Negative) 07/18/21 Unknown Urine WBC (Auto) 9.0 /HPF (0.0-6.0) H 07/18/21 Unknown Urine RBC (Auto) 2.0 /HPF (0.0-6.0) 07/18/21 Unknown U Epithel Cells (Auto) 1.0 /HPF (0-13.0) 07/18/21 Unknown Urine Bacteria (Auto) 1+ /HPF (Negative) 07/18/21 Unknown Amorphous Crystals Few 07/18/21 Unknown Urine Mucus Few /HPF 07/18/21 Unknown Vancomycin Trough 22.9 ug/mL (5.0-20.0) H 07/25/21 04:28 Salicylates < 0.3 mg/dL (2.8-20.0) L 07/18/21 16:00 Urine Opiates Screen Negative 07/18/21 Unknown Urine Methadone Screen Negative 07/18/21 Unknown Acetaminophen 5.7 ug/mL (10.0-30.0) L 07/18/21 16:00 Ur Barbiturates Screen Negative 07/18/21 Unknown Ur Phencyclidine Scrn Negative 07/18/21 Unknown Ur Amphetamines Screen Negative 07/18/21 Unknown U Benzodiazepines Scrn Negative 07/18/21 Unknown Urine Cocaine Screen Negative 07/18/21 Unknown U Marijuana (THC) Screen Negative 07/18/21 Unknown Drugs of Abuse Note Disclamer 07/18/21 Unknown Plasma/Serum Alcohol < 0.01 % (0-0.07) 07/18/21 16:00 Coronavirus (PCR) Positive (Negative) A 07/19/21 Unknown Blood Type O POSITIVE 07/18/21 16:05 Antibody Screen Negative 07/18/21 16:05 Guzamn/IV: Voiding Method Indwelling Catheter Active Medications - Current Medications Current Medications: Generic Name Dose Route Start Last Admin Trade Name Freq PRN Reason Stop Dose Admin Acetaminophen 650 mg 07/18/21 22:49 Acetaminophen 325 Mg Tab PO Q4H PRN Pain MILD(1-3)/Fever >100.5/URENA Lipase/Protease/Amylase 1 each 07/18/21 22:56 Lipase 10,500/Protease 25,000/Amylase 43,750 (Units) Dr Alvarado FEEDTUBE PRN PRN For Clogged Feeding Tube Bisacodyl 10 mg 07/27/21 09:02 07/27/21 11:16 Bisacodyl 10 Mg Rect Supp [place] 10 mg QDAY PRN Administration Constip unreliev by MOM/or NPO Enoxaparin Sodium 100 mg 07/19/21 10:00 07/27/21 11:16 Enoxaparin 100 Mg/1 Ml Inj SUB-Q 100 mg Q12HR [facility] Administration Protocol Famotidine 20 mg 07/18/21 22:00 07/27/21 11:16 Famotidine 20 Mg/2 Ml Inj IV 20 mg BID [facility] Administration Fentanyl 50 mcg 07/18/21 14:41 Fentanyl 100 Mcg/2 Ml Inj IV Q10MIN PRN ANALGESIA Hydrophilic Ointment 1 applic 07/18/21 14:41 Lip Therapy Vaseline TP Q2HR PRN Dry Lips Fentanyl Citrate 2,000 mcg in 100 mls @ 4.915 mls/hr 07/18/21 16:00 07/27/21 11:31 Fentanyl Drip Premix IV 4 mcg/kg/hr TITR NICOLE 19.66 mls/hr Administration Protocol 1 MCG/KG/HR Midazolam HCl 100 mg/ Sodium 100 mls @ 2 mls/hr 07/18/21 19:00 07/27/21 12:41 Chloride IV 5 mg/hr TITR NICOLE 5 mls/hr Administration Protocol 2 MG/HR Cefepime HCl 2 gm in 100 mls @ 200 mls/hr 07/25/21 14:00 07/27/21 14:08 Cefepime/Ns 2 Gm/100 Ml IV 200 mls/hr Q8H [facility] Administration Protocol Insulin Glargine 5 units 07/27/21 22:00 Insulin Glargine 100 Units/Ml SUB-Q QHS [facility] Insulin Human Lispro 0 unit 07/27/21 12:00 07/27/21 12:43 Insulin Lispro 100 Unit/Ml SUB-Q Not Given Q6HR [facility] Protocol Methylprednisolone Sodium Succinate 40 mg 07/27/21 14:00 07/27/21 14:09 Methylprednisolone Sod Succinate 40 Mg/1 Ml Inj IV 40 mg Q8HR [facility] Administration Midazolam HCl 2 mg 07/18/21 18:11 07/22/21 07:56 Midazolam 2 Mg/2 Ml Inj IV 2 mg Q10MIN PRN Administration Sedation Multi-Ingred Cream/Lotion/Oil/Oint 1 applic 07/18/21 14:41 Mineral Oil/Petrolatum, White Ophth Oint 3.5 Gm OU Q4HR PRN Dry Eye(s) Ondansetron HCl 4 mg 07/18/21 22:49 Ondansetron 4 Mg/2 Ml Inj IV Q8H PRN Nausea And Vomiting Senna/Docusate Sodium 1 tab 07/18/21 22:00 07/27/21 11:18 Sennosides/Docusate Sodium 8.6/50 Mg Tab FEEDTUBE Not Given BID NICOLE Simple Syrup 15 ml 07/18/21 22:56 Simple Syrup 15 Ml FEEDTUBE PRN PRN Hypoglycemia Simple Syrup 30 ml 07/18/21 22:56 Simple Syrup 15 Ml FEEDTUBE PRN PRN Hypoglycemia Sodium Bicarbonate 325 mg 07/18/21 22:56 Sodium Bicarbonate 325 Mg Tab FEEDTUBE PRN PRN For Clogged Feeding Tube Sodium Chloride 10 ml 07/19/21 10:00 07/27/21 11:17 Sodium Chloride 0.9% 10 Ml Flush Syringe IV 10 ml BID NICOLE Administration Sodium Chloride 10 ml 07/18/21 22:49 Sodium Chloride 0.9% 10 Ml Flush Syringe IV PRN PRN LINE FLUSH Sodium Chloride 5 ml 07/20/21 14:38 Sodium Chloride 0.9% 1000 Ml Iv Soln IV PRN PRN ART-LINE Nutrition/Malnutrition Assess - Dietary Evaluation Nutrition/Malnutrition Findings: Nutrition Notes Start: 07/19/21 09:15 Freq: Status: Active Protocol: Document 07/26/21 10:11 CW (Rec: 07/26/21 10:21 CW [id number]) Nutrition Notes Initial or Follow up Reassessment Current Diagnosis Acute Kidney Injury,Diabetes, Hypertension,Respiratory Failure Other Pertinent Diagnosis COVID Current Diet Vital HP at 55 ml/hr Labs/Tests K 5.4 BUN 33 BG 155 Pertinent Medications Senokot Humalog Solumedrol Kionex Height 5 ft 6 in Weight 104.8 kg [place] Body Weight (kg) 59.09 BMI 37.3 Weight Status Obese Subjective/Other Information Pt remains on mechancial vent. TF continues to run at goal. No reports of TF intolerance. Percent of energy/protein needs met: 93%/98% Burn Absent Trauma Absent Difficulty In Swallowing Current % PO Negligible Minimum of two criteria No physical signs of malnutrition #1 Nutrition Diagnosis Inadequate oral intake Diagnosis Progress(for reassessment Continues documentation) Is patient on ventilator? Yes Is Patient Ambulatory and/or Out of Bed No REE-([facility]-confined to bed) 2000.624 Kcal/Kg value to use for calculation 14 Approximate Energy Requirements Using 1467 kcal/Kg Calculation Used for Recommendations Kcal/kg Additional Notes Protein: (>2g/kg IBW) >118g Fluid: 1 ml/kcal or per MD Nutrition Intervention Change Diet Order: Continue Vital HP Nutrition Support: Vital HP at 55 ml/hr Flush 50 ml q4h Kcal 1,320 Protein (gm) 116 Fluid (mL) 1,104 Goal #1 Meet at least 75% of protein and kcal needs via TF Anticipated Discharge Needs: Unable to determine at this time Follow-Up By: 07/29/21 Additional Comments F/u: TF tolerance <EDMUNDO DAS - Last Filed: 07/28/21 07:16> History Interval history: I saw and evaluated the patient. Discussed with the nurse practitioner and agree with their findings and plan as documented in this note. Hospitalist Physical - Constitutional Vitals: Temp Pulse Resp BP Pulse Ox 97.4 F L 48 L 26 H 159/81 99 07/28/21 04:00 07/28/21 05:45 07/28/21 05:45 07/28/21 05:45 07/28/21 05:45 HEART Score - HEART Score Troponin: Troponin T 0.106 ng/mL (0.00-0.029) H* 07/18/21 16:00 Results - Labs CBC & Chem 7: 07/28/21 04:10 07/28/21 04:10 Labs: Laboratory Last Values WBC 13.7 K/mm3 (4.5-11.0) H 07/28/21 04:10 RBC 4.11 M/mm3 (3.65-5.03) 07/28/21 04:10 Hgb 11.5 gm/dl (10.1-14.3) 07/28/21 04:10 Hct 35.1 % (30.3-42.9) 07/28/21 04:10 MCV 85 fl (79-97) 07/28/21 04:10 MCH 28 pg (28-32) 07/28/21 04:10 MCHC 33 % (30-34) 07/28/21 04:10 RDW 15.0 % (13.2-15.2) 07/28/21 04:10 Plt Count 206 K/mm3 (140-440) 07/28/21 04:10 Lymph % (Auto) 10.7 % (13.4-35.0) L 07/19/21 04:59 Ray % (Auto) 4.8 % (0.0-7.3) 07/19/21 04:59 Eos % (Auto) 0.1 % (0.0-4.3) 07/19/21 04:59 Baso % (Auto) 0.1 % (0.0-1.8) 07/19/21 04:59 Lymph # (Auto) 1.1 K/mm3 (1.2-5.4) L 07/19/21 04:59 Ray # (Auto) 0.5 K/mm3 (0.0-0.8) 07/19/21 04:59 Eos # (Auto) 0.0 K/mm3 (0.0-0.4) 07/19/21 04:59 Baso # (Auto) 0.0 K/mm3 (0.0-0.1) 07/19/21 04:59 Add Manual Diff Complete 07/27/21 04:48 Total Counted 100 07/27/21 04:48 Seg Neutrophils % Environmental Compliance Engineer 07/27/21 04:48 Seg Neuts % (Manual) 92.0 % (40.0-70.0) H 07/27/21 04:48 Band Neutrophils % 1.0 % 07/26/21 06:07 Lymphocytes % (Manual) 3.0 % (13.4-35.0) L 07/27/21 04:48 Monocytes % (Manual) 5.0 % (0.0-7.3) 07/27/21 04:48 Metamyelocytes % 1.0 % 07/26/21 06:07 Myelocytes % 1.0 % 07/25/21 04:28 Nucleated RBC % 1.0 % (0.0-0.9) H 07/27/21 04:48 Seg Neutrophils # 8.7 K/mm3 (1.8-7.7) H 07/19/21 04:59 Seg Neutrophils # Man 15.2 K/mm3 (1.8-7.7) H 07/27/21 04:48 Band Neutrophils # 0.0 K/mm3 07/27/21 04:48 Lymphocytes # (Manual) 0.5 K/mm3 (1.2-5.4) L 07/27/21 04:48 Abs React Lymphs (Man) 0.0 K/mm3 07/27/21 04:48 Monocytes # (Manual) 0.8 K/mm3 (0.0-0.8) 07/27/21 04:48 Eosinophils # (Manual) 0.0 K/mm3 (0.0-0.4) 07/27/21 04:48 Basophils # (Manual) 0.0 K/mm3 (0.0-0.1) 07/27/21 04:48 Metamyelocytes # 0.0 K/mm3 07/27/21 04:48 Myelocytes # 0.0 K/mm3 07/27/21 04:48 Promyelocytes # 0.0 K/mm3 07/27/21 04:48 Blast Cells # 0.0 K/mm3 07/27/21 04:48 WBC Morphology Not Reportable 07/27/21 04:48 Hypersegmented Neuts Not Reportable 07/27/21 04:48 Hyposegmented Neuts Not Reportable 07/27/21 04:48 Hypogranular Neuts Not Reportable 07/27/21 04:48 Smudge Cells Not Reportable 07/27/21 04:48 Toxic Granulation Not Reportable 07/27/21 04:48 Toxic Vacuolation Not Reportable 07/27/21 04:48 Dohle Bodies Not Reportable 07/27/21 04:48 Pelger-Huet Anomaly Not Reportable 07/27/21 04:48 Alonzo Rods Not Reportable 07/27/21 04:48 Platelet Estimate Consistent w auto 07/27/21 04:48 Clumped Platelets Not Reportable 07/27/21 04:48 Plt Clumps, EDTA Not Reportable 07/27/21 04:48 Large Platelets Not Reportable 07/27/21 04:48 Giant Platelets Not Reportable 07/27/21 04:48 Platelet Satelliting Not Reportable 07/27/21 04:48 Plt Morphology Comment Not Reportable 07/27/21 04:48 RBC Morphology Normal 07/27/21 04:48 Dimorphic RBCs Not Reportable 07/27/21 04:48 Polychromasia Not Reportable 07/27/21 04:48 Hypochromasia Not Reportable 07/27/21 04:48 Poikilocytosis Not Reportable 07/27/21 04:48 Anisocytosis Not Reportable 07/27/21 04:48 Microcytosis Not Reportable 07/27/21 04:48 Macrocytosis Not Reportable 07/27/21 04:48 Spherocytes Not Reportable 07/27/21 04:48 Pappenheimer Bodies Not Reportable 07/27/21 04:48 Sickle Cells Not Reportable 07/27/21 04:48 Target Cells Not Reportable 07/27/21 04:48 Tear Drop Cells Not Reportable 07/27/21 04:48 Ovalocytes Not Reportable 07/27/21 04:48 Helmet Cells Not Reportable 07/27/21 04:48 Jacinto-Dresbach Bodies Not Reportable 07/27/21 04:48 [place] Rings Not Reportable 07/27/21 04:48 [place] Cells Not Reportable 07/27/21 04:48 Bite Cells Not Reportable 07/27/21 04:48 Crenated Cell Not Reportable 07/27/21 04:48 Elliptocytes Not Reportable 07/27/21 04:48 Acanthocytes (Spur) Not Reportable 07/27/21 04:48 Rouleaux Not Reportable 07/27/21 04:48 Hemoglobin C Crystals Not Reportable 07/27/21 04:48 Schistocytes Not Reportable 07/27/21 04:48 Malaria parasites Not Reportable 07/27/21 04:48 Jarvis Bodies Not Reportable 07/27/21 04:48 Hem Pathologist Commnt No 07/27/21 04:48 PT 15.1 Sec. (12.2-14.9) H 07/18/21 16:00 INR 1.13 (0.87-1.13) 07/18/21 16:00 APTT 31.9 Sec. (24.2-36.6) 07/18/21 16:00 D-Dimer 5318.85 ng/mlDDU (0-234) H 07/28/21 04:10 ABG pH 7.491 (7.320-7.450) H 07/28/21 04:00 POC ABG pCO2 39.4 mmHg (32.0-48.0) 07/28/21 04:00 ABG pCO2 35.2 mm Hg 07/19/21 Unknown POC ABG pO2 109.2 mmHg (83-108) H 07/28/21 04:00 ABG pO2 64.2 mm Hg (80.0-90.0) L 07/19/21 Unknown POC ABG HCO3 29.4 07/28/21 04:00 ABG HCO3 20.1 mmol/L (20.0-26.0) 07/19/21 Unknown ABG O2 Saturation 98.2 (0-100) 07/28/21 04:00 ABG O2 Content 14.3 (0.0-44) 07/19/21 Unknown POC ABG Base Excess 5.7 07/28/21 04:00 ABG Base Excess -4.5 mmol/L (-2.0-3.0) L 07/19/21 Unknown ABG Hemoglobin 12.3 (12.0-17.5) 07/28/21 04:00 ABG Oxyhemoglobin 97.4 (94-98) 07/28/21 04:00 ABG Carboxyhemoglobin 0.8 % (0.0-5.0) 07/19/21 Unknown ABG Methemoglobin 0.3 (0.0-1.5) 07/28/21 04:00 ABG Sodium 133.9 mmol/L (136.0-145.0) L 07/28/21 04:00 ABG Potassium 4.4 mmol/L (3.40-4.50) 07/28/21 04:00 ABG Chloride 100.0 mmol/L (98-107) 07/28/21 04:00 ABG Glucose 163 mg/dL (65-95) H 07/28/21 04:00 Oxyhemoglobin 91.9 % (95.0-99.0) L 07/19/21 Unknown Carboxyhemoglobin 0.5 (0.5-1.5) 07/28/21 04:00 FiO2 100 % 07/19/21 Unknown FiO2 % 70.0 07/28/21 04:00 Sodium 138 mmol/L (137-145) 07/28/21 04:10 Potassium 4.6 mmol/L (3.6-5.0) 07/28/21 04:10 Chloride 100.8 mmol/L (98-107) 07/28/21 04:10 Carbon Dioxide 31 mmol/L (22-30) H 07/28/21 04:10 Anion Gap 11 mmol/L 07/28/21 04:10 BUN 35 mg/dL (7-17) H 07/28/21 04:10 Creatinine 0.6 mg/dL (0.6-1.2) 07/28/21 04:10 Estimated GFR > 60 ml/min 07/28/21 04:10 BUN/Creatinine Ratio 58 % 07/28/21 04:10 Glucose 187 mg/dL (65-100) H 07/28/21 04:10 POC Glucose 152 mg/dL (70-105) H 07/28/21 05:25 Lactic Acid 1.40 mmol/L (0.7-2.0) 07/18/21 16:00 Calcium 8.9 mg/dL (8.4-10.2) 07/28/21 04:10 Phosphorus 3.70 mg/dL (2.5-4.5) 07/20/21 04:44 Magnesium 3.10 mg/dL (1.7-2.3) H 07/20/21 04:44 Ferritin 324.6 ng/mL (10.0-200.0) H 07/28/21 04:10 Total Bilirubin 0.20 mg/dL (0.1-1.2) 07/22/21 04:39 AST 38 units/L (5-40) 07/22/21 04:39 ALT 29 units/L (7-56) 07/22/21 04:39 Alkaline Phosphatase 83 units/L (35-129) 07/22/21 04:39 Ammonia 37.0 umol/L (25-60) 07/18/21 16:00 Lactate Dehydrogenase 414 units/L (91-180) H 07/28/21 04:10 Total Creatine Kinase 157 units/L (30-135) H 07/18/21 16:00 Troponin T 0.106 ng/mL (0.00-0.029) H* 07/18/21 16:00 C-Reactive Protein 0.30 mg/dL (0.00-1.30) 07/28/21 04:10 Total Protein 6.4 g/dL (6.3-8.2) 07/22/21 04:39 Albumin 2.9 g/dL (3.9-5) L 07/22/21 04:39 Albumin/Globulin Ratio 0.8 % 07/22/21 04:39 Triglycerides 156 mg/dL (2-149) H 07/18/21 16:00 Cholesterol 127 mg/dL (50-199) 07/18/21 16:00 LDL Cholesterol Direct 64 mg/dL (50-130) 07/18/21 16:00 HDL Cholesterol 33 mg/dL (40-59) L 07/18/21 16:00 Cholesterol/HDL Ratio 3.84 % 07/18/21 16:00 Procalcitonin < 0.05 ng/mL (<0.15) 07/26/21 13:53 TSH 0.469 mlU/mL (0.270-4.200) 07/21/21 04:52 Free T4 1.05 ng/dL (0.76-1.46) 07/21/21 04:52 Arterial Blood Glucose 163 mg/dL (65-95) H 07/28/21 04:00 Arterial Blood Ionized Calcium 4.6 mg/dL (4.6-5.3) 07/28/21 04:00 Urine Color Yellow (Yellow) 07/18/21 Unknown Urine Turbidity Slightly-cloudy (Clear) 07/18/21 Unknown Urine pH 5.0 (5.0-7.0) 07/18/21 Unknown Ur Specific [place] 1.020 (1.003-1.030) 07/18/21 Unknown Urine Protein >500 mg/dL (Negative) 07/18/21 Unknown Urine Glucose (UA) Neg mg/dL (Negative) 07/18/21 Unknown Urine Ketones 20 mg/dL (Negative) 07/18/21 Unknown Urine Blood Neg (Negative) 07/18/21 Unknown Urine Nitrite Neg (Negative) 07/18/21 Unknown Urine Bilirubin Neg (Negative) 07/18/21 Unknown Urine Urobilinogen < 2.0 mg/dL (<2.0) 07/18/21 Unknown Ur Leukocyte Esterase Neg (Negative) 07/18/21 Unknown Urine WBC (Auto) 9.0 /HPF (0.0-6.0) H 07/18/21 Unknown Urine RBC (Auto) 2.0 /HPF (0.0-6.0) 07/18/21 Unknown U Epithel Cells (Auto) 1.0 /HPF (0-13.0) 07/18/21 Unknown Urine Bacteria (Auto) 1+ /HPF (Negative) 07/18/21 Unknown Amorphous Crystals Few 07/18/21 Unknown Urine Mucus Few /HPF 07/18/21 Unknown Vancomycin Trough 22.9 ug/mL (5.0-20.0) H 07/25/21 04:28 Salicylates < 0.3 mg/dL (2.8-20.0) L 07/18/21 16:00 Urine Opiates Screen Negative 07/18/21 Unknown Urine Methadone Screen Negative 07/18/21 Unknown Acetaminophen 5.7 ug/mL (10.0-30.0) L 07/18/21 16:00 Ur Barbiturates Screen Negative 07/18/21 Unknown Ur Phencyclidine Scrn Negative 07/18/21 Unknown Ur Amphetamines Screen Negative 07/18/21 Unknown U Benzodiazepines Scrn Negative 07/18/21 Unknown Urine Cocaine Screen Negative 07/18/21 Unknown U Marijuana (THC) Screen Negative 07/18/21 Unknown Drugs of Abuse Note Disclamer 07/18/21 Unknown Plasma/Serum Alcohol < 0.01 % (0-0.07) 07/18/21 16:00 Coronavirus (PCR) Positive (Negative) A 07/19/21 Unknown Blood Type O POSITIVE 07/18/21 16:05 Antibody Screen Negative 07/18/21 16:05 Guzman/IV: Voiding Method Indwelling Catheter Active Medications - Current Medications Current Medications: Generic Name Dose Route Start Last Admin Trade Name Freq PRN Reason Stop Dose Admin Acetaminophen 650 mg 07/18/21 22:49 Acetaminophen 325 Mg Tab PO Q4H PRN Pain MILD(1-3)/Fever >100.5/URENA Lipase/Protease/Amylase 1 each 07/18/21 22:56 Lipase 10,500/Protease 25,000/Amylase 43,750 (Units) Dr Cap FEEDTUBE PRN PRN For Clogged Feeding Tube Bisacodyl 10 mg 07/27/21 09:02 07/27/21 11:16 Bisacodyl 10 Mg Rect Supp [place] 10 mg QDAY PRN Administration Constip unreliev by MOM/or NPO Enoxaparin Sodium 100 mg 07/19/21 10:00 07/27/21 22:18 Enoxaparin 100 Mg/1 Ml Inj SUB-Q 100 mg Q12HR NICOLE Administration Protocol Famotidine 20 mg 07/18/21 22:00 07/27/21 22:19 Famotidine 20 Mg/2 Ml Inj IV 20 mg BID NICOLE Administration Fentanyl 50 mcg 07/18/21 14:41 Fentanyl 100 Mcg/2 Ml Inj IV Q10MIN PRN ANALGESIA Hydrophilic Ointment 1 applic 07/18/21 14:41 Lip Therapy Vaseline TP Q2HR PRN Dry Lips Fentanyl Citrate 2,000 mcg in 100 mls @ 4.915 mls/hr 07/18/21 16:00 07/27/21 22:17 Fentanyl Drip Premix IV 4 mcg/kg/hr TITR NICOLE 19.66 mls/hr Administration Protocol 1 MCG/KG/HR Midazolam HCl 100 mg/ Sodium 100 mls @ 2 mls/hr 07/18/21 19:00 07/27/21 12:41 Chloride IV 5 mg/hr TITR NICOLE 5 mls/hr Administration Protocol 2 MG/HR Cefepime HCl 2 gm in 100 mls @ 200 mls/hr 07/25/21 14:00 07/28/21 05:54 Cefepime/Ns 2 Gm/100 Ml IV 200 mls/hr Q8H [facility] Administration Protocol Insulin Glargine 5 units 07/27/21 22:00 07/27/21 22:18 Insulin Glargine 100 Units/Ml SUB-Q 5 units QHS NICOLE Administration Insulin Human Lispro 0 unit 07/27/21 12:00 07/27/21 18:19 Insulin Lispro 100 Unit/Ml SUB-Q 3 unit Q6HR [facility] Administration Protocol Methylprednisolone Sodium Succinate 40 mg 07/27/21 14:00 07/28/21 06:37 Methylprednisolone Sod Succinate 40 Mg/1 Ml Inj IV 40 mg Q8HR NICOLE Administration Midazolam HCl 2 mg 07/18/21 18:11 07/22/21 07:56 Midazolam 2 Mg/2 Ml Inj IV 2 mg Q10MIN PRN Administration Sedation Multi-Ingred Cream/Lotion/Oil/Oint 1 applic 07/18/21 14:41 Mineral Oil/Petrolatum, White Ophth Oint 3.5 Gm OU Q4HR PRN Dry Eye(s) Ondansetron HCl 4 mg 07/18/21 22:49 Ondansetron 4 Mg/2 Ml Inj IV Q8H PRN Nausea And Vomiting Senna/Docusate Sodium 1 tab 07/18/21 22:00 07/27/21 22:19 Sennosides/Docusate Sodium 8.6/50 Mg Tab FEEDTUBE 1 tab BID NICOLE Administration Simple Syrup 15 ml 07/18/21 22:56 Simple Syrup 15 Ml FEEDTUBE PRN PRN Hypoglycemia Simple Syrup 30 ml 07/18/21 22:56 Simple Syrup 15 Ml FEEDTUBE PRN PRN Hypoglycemia Sodium Bicarbonate 325 mg 07/18/21 22:56 Sodium Bicarbonate 325 Mg Tab FEEDTUBE PRN PRN For Clogged Feeding Tube Sodium Chloride 10 ml 07/19/21 10:00 07/27/21 11:17 Sodium Chloride 0.9% 10 Ml Flush Syringe IV 10 ml BID NICOLE Administration Sodium Chloride 10 ml 07/18/21 22:49 Sodium Chloride 0.9% 10 Ml Flush Syringe IV PRN PRN LINE FLUSH Sodium Chloride 5 ml 07/20/21 14:38 Sodium Chloride 0.9% 1000 Ml Iv Soln IV PRN PRN ART-LINE Nutrition/Malnutrition Assess - Dietary Evaluation Nutrition/Malnutrition Findings: Nutrition Notes Start: 07/19/21 0 9:15 Freq: Status: Active Protocol: Document 07/26/21 10:11 CW (Rec: 07/26/21 10:21 CW [email or web address]) Nutrition Notes Initial or Follow up Reassessment Current Diagnosis Acute Kidney Injury,Diabetes, Hypertension,Respiratory Failure Other Pertinent Diagnosis COVID Current Diet Vital HP at 55 ml/hr Labs/Tests K 5.4 BUN 33 BG 155 Pertinent Medications Senokot Humalog Solumedrol Kionex Height 5 ft 6 in Weight 104.8 kg [place] Body Weight (kg) 59.09 BMI 37.3 Weight Status Obese Subjective/Other Information Pt remains on mechancial vent. TF continues to run at goal. No reports of TF intolerance. Percent of energy/protein needs met: 93%/98% Burn Absent Trauma Absent Difficulty In Swallowing Current % PO Negligible Minimum of two criteria No physical signs of malnutrition #1 Nutrition Diagnosis Inadequate oral intake Diagnosis Progress(for reassessment Continues documentation) Is patient on ventilator? Yes Is Patient Ambulatory and/or Out of Bed No REE-([facility]-confined to bed) 2000.624 Kcal/Kg value to use for calculation 14 Approximate Energy Requirements Using 1467 kcal/Kg Calculation Used for Recommendations Kcal/kg Additional Notes Protein: (>2g/kg IBW) >118g Fluid: 1 ml/kcal or per MD Nutrition Intervention Change Diet Order: Continue Vital HP Nutrition Support: Vital HP at 55 ml/hr Flush 50 ml q4h Kcal 1,320 Protein (gm) 116 Fluid (mL) 1,104 Goal #1 Meet at least 75% of protein and kcal needs via TF Anticipated Discharge Needs: Unable to determine at this time Follow-Up By: 07/29/21 Additional Comments F/u: TF tolerance
--- NOTE | 2021-07-27 16:32 | Progress Note ---
Assessment and Plan Cultures: Blood culture 07/18/2021 no growth so far Urine culture 07/18/2021 no growth so far A/P: 55 yo F PMHx HTN, DM2 presents with severe COVID pneumonia. #Presumed COVID pneumonia: pending PCR, clinical presentation consistent with d iagnosis. Elevated procalcitonin as well, however in the setting of ION #Acute hypoxic respiratory failure: currently on the vent #Bilateral pulmonary emboli: anticoagulation per hoptal protocol #Tricuspid valve vegetation: possible seen on echo. #ION Recs: -Continue cefepime given fevers -Agree with cardiology TV lesion likely thrombus -Completed 5 days remdesivir -Received Actemra 07/20/2021 -Anticoagulation per hospital protocol -Proning as able -Obtain q48-72h inflammatory markers - ferritin, Ddimer, CRP, LDH Thank you for the consult, we will continue to follow. Jessica Hassan MD [facility] ([facility]) O: [phone] F: [phone] Subjective Date of service: 07/27/21 Principal diagnosis: COVID pneumonia Interval history: Afebrile, white count 16.5 which is stable. Cultures are remain negative. Imaging personally reviewed: Chest x-ray: Lung opacities unchanged. Objective - Exam Narrative Exam: Physical exam deferred to reduce risk of transmission of COVID-19. Please refer to primary team's note. - Constitutional Vitals: Vital Signs Temp Pulse Resp BP Pulse Ox 98.5 F 59 L 26 H 130/71 90 07/27/21 12:00 07/27/21 11:46 07/27/21 08:46 07/27/21 11:46 07/27/21 11:46 Temperature -Last 24 Hours Temperature 98.5 F Temperature 98.8 F Temperature 97.6 F Temperature 98.3 F Temperature 98.4 F - Labs CBC & Chem 7: 07/27/21 04:48 07/27/21 04:48 Labs: Abnormal lab results 07/26/21 07/26/21 07/27/21 Range/Units 17:29 23:30 04:00 WBC (4.5-11.0) K/mm3 Seg Neuts % (Manual) (40.0-70.0) % Lymphocytes % (Manual) (13.4-35.0) % Nucleated RBC % (0.0-0.9) % Seg Neutrophils # Man (1.8-7.7) K/mm3 Lymphocytes # (Manual) (1.2-5.4) K/mm3 ABG pH 7.481 H (7.320-7.450) POC ABG pO2 70.4 L (83-108) mmHg ABG Hemoglobin 11.6 L (12.0-17.5) ABG Sodium 131.9 L (136.0-145.0) mmol/L ABG Glucose 207 H (65-95) mg/dL BUN (7-17) mg/dL Glucose (65-100) mg/dL POC Glucose 185 H 186 H (70-105) mg/dL Arterial Blood Glucose 207 H (65-95) mg/dL 07/27/21 07/27/21 07/27/21 Range/Units 04:48 04:48 05:04 WBC 16.5 H (4.5-11.0) K/mm3 Seg Neuts % (Manual) 92.0 H (40.0-70.0) % Lymphocytes % (Manual) 3.0 L (13.4-35.0) % Nucleated RBC % 1.0 H (0.0-0.9) % Seg Neutrophils # Man 15.2 H (1.8-7.7) K/mm3 Lymphocytes # (Manual) 0.5 L (1.2-5.4) K/mm3 ABG pH (7.320-7.450) POC ABG pO2 (83-108) mmHg ABG Hemoglobin (12.0-17.5) ABG Sodium (136.0-145.0) mmol/L ABG Glucose (65-95) mg/dL BUN 35 H (7-17) mg/dL Glucose 216 H (65-100) mg/dL POC Glucose 201 H (70-105) mg/dL Arterial Blood Glucose (65-95) mg/dL 07/27/21 Range/Units 11:36 WBC (4.5-11.0) K/mm3 Seg Neuts % (Manual) (40.0-70.0) % Lymphocytes % (Manual) (13.4-35.0) % Nucleated RBC % (0.0-0.9) % Seg Neutrophils # Man (1.8-7.7) K/mm3 Lymphocytes # (Manual) (1.2-5.4) K/mm3 ABG pH (7.320-7.450) POC ABG pO2 (83-108) mmHg ABG Hemoglobin (12.0-17.5) ABG Sodium (136.0-145.0) mmol/L ABG Glucose (65-95) mg/dL BUN (7-17) mg/dL Glucose (65-100) mg/dL POC Glucose 142 H (70-105) mg/dL Arterial Blood Glucose (65-95) mg/dL
--- NOTE | 2021-07-27 18:01 | Vascular Lab Report ---
VL venous duplex LE BILAT INDICATION / CLINICAL INFORMATION: r/o dvt. TECHNIQUE: Duplex doppler imaging was performed using venous compression and other maneuvers. COMPARISON: None available. FINDINGS: Nonobstructing thrombus seen left posterior tibial vein and peroneal vein. No venous thrombosis is identified within the visualized right lower extremity vasculature. ADDITIONAL FINDINGS: None. IMPRESSION: 1. Deep venous thrombosis in the left lower extremity as described. 2. No DVT in the right lower extremity. Signer Name: Darren Coleman MD Signed: 07/27/2021 5:57 PM Workstation Name: [id number]
[2021-07-27] MEDS: INSULIN GLARGINE 100 UNITS/ML SUB-Q SCH (22:18)
[2021-07-28 04:55] LABS: Hematocrit 35.1 % (30.3-42.9); Hemoglobin 11.5 gm/dl (10.1-14.3); Mean Corpuscular HGB Conc 33 % (30-34); Mean Corpuscular Volume 85 fl (79-97); Platelet Count 206 K/mm3 (140-440); Red Blood Count 4.11 M/mm3 (3.65-5.03)
[2021-07-28 05:34] LABS: Blood Urea Nitrogen 35 mg/dL (7-17); Calcium 8.9 mg/dL (8.4-10.2); Hemolysis Index 2
[2021-07-28 05:51] LABS: BUN/Creatinine Ratio 58
[2021-07-28] MEDS: CEFEPIME/NS 2 GM/100 ML 2 GM/100 ML BAG IV SCH ×3 (05:54→22:25)
[2021-07-28] MEDS: methylPREDNISolone Sod Succinate 40 MG/1 ML INJ IV SCH ×3 (06:37→22:17)
[2021-07-28] MEDS: INSULIN LISPRO 100 UNIT/ML SUB-Q SCH ×3 (07:47→18:01)
[2021-07-28] MEDS: fentaNYL DRIP Premix 2,000 MCG/100 ML BAG IV SCH ×3 (08:29→18:19)
[2021-07-28] MEDS: MIDAZOLAM 100 MG in SODIUM CHLORIDE 0.9% 80 ML IV SCH (08:45)
--- NOTE | 2021-07-28 08:57 | Progress Note ---
Assessment and Plan Covid 19 pneumonia Acute bilateral pulmonary emboli on CTA chest on lovenox Acute hypoxic respiratory failure Mobile echogenic density on the tricuspid valve apparatus Given clinical picture, density most likely represents a thrombus and less likely a vegetation Sinus bradycardia -resolved No pauses or high degree AV block on tele Normal TSH Recommendations: Continue telemetry monitoring. Avoid AV jaylene blocking agents. Otherwise, conservative cardiac management. Subjective Date of service: 07/28/21 Principal diagnosis: COVID pneumonia Interval history: Remains intubated on the vent. Currently, she is sinus rhythm, rate 65 on telemetry. Objective Vital Signs Temp Pulse Pulse Resp BP Pulse Ox 07/28/21 08:38 57 L 174/84 100 07/28/21 07:00 99.4 F 07/28/21 05:45 48 L 26 H 159/81 99 07/28/21 05:31 44 L 26 H 159/81 99 07/28/21 05:15 46 L 26 H 159/81 100 07/28/21 05:01 44 L 26 H 159/81 100 07/28/21 04:45 39 L 26 H 172/79 100 07/28/21 04:31 37 L 26 H 172/79 100 07/28/21 04:15 41 L 26 H 172/79 100 07/28/21 04:01 36 L 26 H 121/65 100 07/28/21 04:00 97.4 F L 46 L 37 L 26 H 97 07/28/21 03:48 35 L 113/61 99 07/28/21 03:45 36 L 26 H 121/65 99 07/28/21 03:31 35 L 26 H 121/65 99 07/28/21 03:15 36 L 26 H 121/65 99 07/28/21 03:00 36 L 26 H 121/65 98 07/28/21 02:45 39 L 26 H 129/78 99 07/28/21 02:31 37 L 26 H 129/78 99 07/28/21 02:15 39 L 26 H 129/78 98 07/28/21 02:00 48 L 26 H 129/78 97 07/28/21 01:45 48 L 26 H 139/73 96 07/28/21 01:31 45 L 26 H 139/73 98 07/28/21 01:15 43 L 26 H 139/73 98 07/28/21 01:00 48 L 26 H 139/73 97 07/28/21 00:45 41 L 26 H 134/83 98 07/28/21 00:31 44 L 26 H 134/83 99 07/28/21 00:15 45 L 26 H 134/83 100 07/28/21 00:01 46 L 26 H 134/83 100 07/28/21 00:00 98.9 F 37 L 31 L 26 H 97 07/27/21 23:45 43 L 26 H 124/73 100 07/27/21 23:31 38 L 26 H 124/73 98 07/27/21 23:15 36 L 26 H 124/73 99 07/27/21 23:05 37 L 127/61 98 07/27/21 23:00 39 L 26 H 124/73 96 07/27/21 22:45 37 L 26 H 112/65 97 07/27/21 22:31 38 L 26 H 112/65 98 07/27/21 22:15 36 L 26 H 112/65 98 07/27/21 22:00 38 L 26 H 112/65 96 07/27/21 21:45 39 L 26 H 111/63 98 07/27/21 21:31 37 L 26 H 111/63 97 07/27/21 21:15 38 L 26 H 111/63 98 07/27/21 21:00 40 L 26 H 111/63 96 07/27/21 20:47 37 L 26 H 108/62 99 07/27/21 20:45 40 L 26 H 108/62 98 07/27/21 20:31 38 L 26 H 108/62 98 07/27/21 20:15 39 L 26 H 108/62 98 07/27/21 20:10 118/56 93 07/27/21 20:00 99.0 F 43 L 38 L 26 H 108/62 93 07/27/21 19:45 41 L 26 H 132/77 95 07/27/21 19:31 40 L 26 H 132/77 95 07/27/21 19:15 44 L 26 H 132/77 97 07/27/21 19:00 47 L 26 H 132/77 98 07/27/21 18:45 44 L 26 H 114/65 100 07/27/21 18:31 66 23 114/65 99 07/27/21 18:15 42 L 26 H 114/65 95 07/27/21 18:01 41 L 26 H 114/65 94 07/27/21 17:45 44 L 26 H 138/85 94 07/27/21 17:31 46 L 26 H 138/85 93 07/27/21 17:15 46 L 26 H 138/85 92 07/27/21 17:11 89 138/85 91 07/27/21 17:00 51 L 26 H 138/85 91 07/27/21 16:45 44 L 26 H 125/67 95 07/27/21 16:31 47 L 26 H 125/67 94 07/27/21 16:15 52 L 26 H 125/67 95 07/27/21 16:00 99 F 47 L 47 L 26 H 125/67 97 07/27/21 15:45 47 L 26 H 160/87 91 07/27/21 15:31 47 L 26 H 160/87 90 07/27/21 15:15 49 L 26 H 160/87 84 07/27/21 15:01 58 L 26 H 160/87 92 07/27/21 14:45 50 L 26 H 149/95 87 07/27/21 14:31 52 L 26 H 149/95 92 07/27/21 14:15 50 L 26 H 149/95 90 07/27/21 14:01 85 25 H 149/95 96 07/27/21 13:45 47 L 26 H 143/73 93 07/27/21 13:31 63 26 H 143/73 93 07/27/21 13:15 48 L 26 H 143/73 93 07/27/21 13:00 54 L 26 H 143/73 92 07/27/21 12:45 46 L 26 H 143/75 90 07/27/21 12:31 45 L 26 H 143/75 87 07/27/21 12:15 47 L 26 H 143/75 86 07/27/21 12:00 98.5 F 46 L 41 L 26 H 143/75 97 07/27/21 11:46 59 L 130/71 90 07/27/21 11:45 56 L 26 H 130/71 90 07/27/21 11:31 52 L 26 H 130/71 91 07/27/21 11:15 36 L 26 H 130/71 97 07/27/21 11:00 40 L 26 H 130/71 96 07/27/21 10:45 42 L 26 H 143/74 96 07/27/21 10:31 40 L 26 H 143/74 96 07/27/21 10:15 43 L 26 H 96 07/27/21 10:00 47 L 26 H 135/73 96 07/27/21 09:46 59 L 26 H 135/73 97 07/27/21 09:30 39 L 26 H 135/73 98 07/27/21 09:16 40 L 26 H 135/73 99 07/27/21 09:00 43 L 26 H 135/73 98 - Physical Examination Narrative exam: Deferred due to isolation protocol. General: Other (intubated on the vent) Cardiac: Positive: Reg Rate and Rhythm - Labs and Meds Cardiac Enzymes 07/28/21 Range/Units 04:10 Lactate Dehydrogenase 414 H (91-180) units/L CBC 07/28/21 Range/Units 04:10 WBC 13.7 H (4.5-11.0) K/mm3 RBC 4.11 (3.65-5.03) M/mm3 Hgb 11.5 (10.1-14.3) gm/dl Hct 35.1 (30.3-42.9) % Plt Count 206 (140-440) K/mm3 Comprehensive Metabolic Panel 07/28/21 Range/Units 04:10 Sodium 138 (137-145) mmol/L Potassium 4.6 (3.6-5.0) mmol/L Chloride 100.8 (98-107) mmol/L Carbon Dioxide 31 H (22-30) mmol/L BUN 35 H (7-17) mg/dL Creatinine 0.6 (0.6-1.2) mg/dL Glucose 187 H (65-100) mg/dL Calcium 8.9 (8.4-10.2) mg/dL
[2021-07-28] MEDS: FREE WATER PO SCH ×4 (09:41→22:10)
[2021-07-28] MEDS: SENNOSIDES/DOCUSATE SODIUM 8.6/50 MG TAB FEEDTUBE SCH ×2 (09:41→22:00)
[2021-07-28] MEDS: ENOXAPARIN 100 MG/1 ML INJ SUB-Q SCH ×2 (09:41→22:19)
[2021-07-28] MEDS: FAMOTIDINE 20 MG/2 ML INJ IV SCH ×2 (09:41→22:00)
--- NOTE | 2021-07-28 14:39 | Progress Note ---
Assessment and Plan 55 y/o obese female with acute respiratory failure, pulmonary embolism, now with renal failure, most likely all secondary to COVID 19 07/28/21: Repeat CXR today to check ET tube. Wean steroids when able. Continue to wean FiO2 as tolerated. Do not move PEEP until FiO2 is at 45-50%. Guarded prognosis remains. Will call family now. 07/27/21: Ok with advancing ET tube 2-3 cm. Continue to wean FiO2 as tolerated. Repeat CXR post advancement of ET tube. Dropped steroids too 40q8 07/26/21: Back down to 65% like on 07/22 but PEEP is at 12. Will monitor closely. COntinue current level of sedation and high dose steroids. Prognosis is very very guarded. 07/23/21: Dropped FiO2 to 70. Hopeful to wean back down. Keep peep elevated unt il FiO2 at 50-55%. Continue High dose steroids. Keep RASS at -4. Na is better. Will stop D5W. Updated Daughter (Linda) and GodDaughter over the phone. If someone could please call them at least one day over the weekend I will call them again on Monday. Prognosis remains very guarded. Explained to them the high mortality rate associated with COVID and mechanical ventilation. 07/22/21: Dropped Fio2 to 65. Continue to wean for sats >88%. keep elevated peep until FiO2 around 50-55% so hopefully in the next 24-36 hours we can get there. Continue sedation to keep rass at -4. Continue high dose steroids. Will continue D5W for now until Free water can control sodium. need CBC in the am along with BMP. Prognosis still remains guarded. Continue lovenox 07/21/21: Dropped FiO2 to 80%. Continue to wean for sats >88%. Keep peep elevated until FiO2 around 50-55%. Continue remdesivir and adequate levels of sedation. Continue high dose steroids. No proning for now. Continue ther apeutic lovenox. Prognosis remains guarded. 07/20/21: COVID positive. Started Remdesivir. Renal function improved. COntinue high dose steroids at current dosing for now. Suggest repeat ABG later this afternoon if able, may need art line but BP stable for now. No proning. Agree with therapeutic Lovenox. Guarded prognosis. 1. Follow up COVID testing, continue isolation 2. Agree with high dose IV steroids, if positive, will change to solumedrol 125q8 3. If positive then would need remdesivir and Actemra, hopefully still a candidate given bump in renal function 4. Unable to prone patient at moment, but did increase PEEP to 20 and ordered repeat ABG at 1400 5 Very very guarded prognosis CCT 31 minutes. Subjective Date of service: 07/28/21 Principal diagnosis: COVID pneumonia Interval history: Back down to 60%. Had to be increased again overnight. Renal function is still holding. Family has called several times already today but I hadn't seen the patient yet so wasn't ready to speak with them. Objective Vital Signs - 12hr 07/28/21 07/28/21 07/28/21 02:45 03:00 03:15 Temperature Pulse Rate 39 L 36 L 36 L Pulse Rate [ From Monitor] Respiratory 26 H 26 H 26 H Rate Blood Pressure 129/78 121/65 121/65 O2 Sat by Pulse 99 98 99 Oximetry 07/28/21 07/28/21 07/28/21 03:31 03:45 03:48 Temperature Pulse Rate 35 L 36 L 35 L Pulse Rate [ From Monitor] Respiratory 26 H 26 H Rate Blood Pressure 121/65 121/65 113/61 O2 Sat by Pulse 99 99 99 Oximetry 07/28/21 07/28/21 07/28/21 04:00 04:01 04:15 Temperature 97.4 F L Pulse Rate 46 L 36 L 41 L Pulse Rate [ 37 L From Monitor] Respiratory 26 H 26 H 26 H Rate Blood Pressure 121/65 172/79 O2 Sat by Pulse 97 100 100 Oximetry 07/28/21 07/28/21 07/28/21 04:31 04:45 05:01 Temperature Pulse Rate 37 L 39 L 44 L Pulse Rate [ From Monitor] Respiratory 26 H 26 H 26 H Rate Blood Pressure 172/79 172/79 159/81 O2 Sat by Pulse 100 100 100 Oximetry 07/28/21 07/28/21 07/28/21 05:15 05:31 05:45 Temperature Pulse Rate 46 L 44 L 48 L Pulse Rate [ From Monitor] Respiratory 26 H 26 H 26 H Rate Blood Pressure 159/81 159/81 159/81 O2 Sat by Pulse 100 99 99 Oximetry 07/28/21 07/28/21 07/28/21 06:00 06:15 06:31 Temperature Pulse Rate 46 L 44 L 44 L Pulse Rate [ From Monitor] Respiratory 26 H 26 H 26 H Rate Blood Pressure 159/81 146/75 146/75 O2 Sat by Pulse 99 97 97 Oximetry 07/28/21 07/28/21 07/28/21 06:45 07:00 07:15 Temperature 99.4 F Pulse Rate 48 L 51 L 51 L Pulse Rate [ From Monitor] Respiratory 26 H 26 H 26 H Rate Blood Pressure 146/75 154/78 154/78 O2 Sat by Pulse 99 99 99 Oximetry 07/28/21 07/28/21 07/28/21 07:31 07:45 08:00 Temperature Pulse Rate 56 L 51 L 49 L Pulse Rate [ 37 L From Monitor] Respiratory 26 H 26 H 26 H Rate Blood Pressure 154/78 154/78 146/74 O2 Sat by Pulse 99 99 97 Oximetry 07/28/21 07/28/21 07/28/21 08:15 08:31 08:38 Temperature Pulse Rate 52 L 57 L 57 L Pulse Rate [ From Monitor] Respiratory 26 H 26 H Rate Blood Pressure 146/74 146/74 174/84 O2 Sat by Pulse 100 100 100 Oximetry 07/28/21 07/28/21 07/28/21 08:45 09:00 09:15 Temperature Pulse Rate 72 61 59 L Pulse Rate [ From Monitor] Respiratory 26 H 26 H 26 H Rate Blood Pressure 174/84 147/80 147/80 O2 Sat by Pulse 98 98 Oximetry 07/28/21 07/28/21 07/28/21 09:31 09:45 10:00 Temperature Pulse Rate 59 L 52 L 53 L Pulse Rate [ From Monitor] Respiratory 26 H 26 H 26 H Rate Blood Pressure 147/80 147/80 143/69 O2 Sat by Pulse 99 98 98 Oximetry 07/28/21 07/28/21 07/28/21 10:15 10:30 10:45 Temperature Pulse Rate 49 L 46 L 45 L Pulse Rate [ From Monitor] Respiratory 26 H 26 H 26 H Rate Blood Pressure 143/69 143/69 143/69 O2 Sat by Pulse 100 100 100 Oximetry 07/28/21 07/28/21 07/28/21 11:00 11:01 11:15 Temperature 98.3 F Pulse Rate 43 L 40 L Pulse Rate [ From Monitor] Respiratory 26 H 26 H Rate Blood Pressure 104/59 104/59 O2 Sat by Pulse 98 99 Oximetry 07/28/21 07/28/21 07/28/21 11:31 11:45 12:00 Temperature Pulse Rate 41 L 41 L 39 L Pulse Rate [ From Monitor] Respiratory 26 H 26 H 26 H Rate Blood Pressure 104/59 104/59 100/54 O2 Sat by Pulse 99 99 98 Oximetry 07/28/21 07/28/21 07/28/21 12:15 12:29 12:36 Temperature 98.3 F Pulse Rate 40 L 40 L Pulse Rate [ From Monitor] Respiratory 26 H Rate Blood Pressure 100/54 100/54 O2 Sat by Pulse 100 100 Oximetry Constitutional: no acute distress, comatose ENT: other (orally intubated and sedated) Ascultation: Bilateral: diminished breath sounds Cardiovascular: regular rate and rhythm Gastrointestinal: normoactive bowel sounds, soft, non-tender Integumentary: normal Extremities: no cyanosis Neurologic: other (Sedated) CBC and BMP: 07/28/21 04:10 07/28/21 04:10 ABG, PT/INR, D-dimer: ABG ABG pH 7.491 (7.320-7.450) H 07/28/21 04:00 POC ABG pCO2 39.4 mmHg (32.0-48.0) 07/28/21 04:00 ABG pCO2 35.2 mm Hg 07/19/21 Unknown POC ABG pO2 109.2 mmHg (83-108) H 07/28/21 04:00 ABG pO2 64.2 mm Hg (80.0-90.0) L 07/19/21 Unknown POC ABG HCO3 29.4 07/28/21 04:00 ABG O2 Saturation 98.2 (0-100) 07/28/21 04:00 PT/INR, D-dimer PT 15.1 Sec. (12.2-14.9) H 07/18/21 16:00 INR 1.13 (0.87-1.13) 07/18/21 16:00 D-Dimer 5318.85 ng/mlDDU (0-234) H 07/28/21 04:10 Abnormal lab findings: Abnormal Labs 07/18/21 07/18/21 07/18/21 16:00 16:00 16:00 WBC RBC Hgb Hct RDW 15.3 H Lymph % (Auto) 7.9 L Lymph # (Auto) 0.8 L Seg Neutrophils % 86.3 H Seg Neuts % (Manual) Lymphocytes % (Manual) Nucleated RBC % Seg Neutrophils # 9.0 H Seg Neutrophils # Man Lymphocytes # (Manual) Monocytes # (Manual) PT 15.1 H D-Dimer > 44912 H ABG pH POC ABG pCO2 POC ABG pO2 ABG pO2 ABG O2 Saturation ABG Base Excess ABG Hemoglobin ABG Oxyhemoglobin ABG Sodium ABG Chloride ABG Glucose Oxyhemoglobin Carboxyhemoglobin Sodium Potassium 3.5 L Chloride Carbon Dioxide 20 L BUN 19 H Creatinine Glucose 140 H POC Glucose Calcium Magnesium Ferritin AST 43 H Lactate Dehydrogenase 705 H Total Creatine Kinase 157 H Troponin T 0.106 H* C-Reactive Protein 33.00 H Total Protein Albumin 3.2 L Triglycerides 156 H HDL Cholesterol 33 L Arterial Blood Glucose Arterial Blood Ionized Calcium Urine WBC (Auto) Vancomycin Trough Salicylates Acetaminophen Coronavirus (PCR) 07/18/21 07/18/21 07/18/21 16:00 16:00 16:00 WBC RBC Hgb Hct RDW Lymph % (Auto) Lymph # (Auto) Seg Neutrophils % Seg Neuts % (Manual) Lymphocytes % (Manual) Nucleated RBC % Seg Neutrophils # Seg Neutrophils # Man Lymphocytes # (Manual) Monocytes # (Manual) PT D-Dimer ABG pH POC ABG pCO2 POC ABG pO2 ABG pO2 ABG O2 Saturation ABG Base Excess ABG Hemoglobin ABG Oxyhemoglobin ABG Sodium ABG Chloride ABG Glucose Oxyhemoglobin Carboxyhemoglobin Sodium Potassium Chloride Carbon Dioxide BUN Creatinine Glucose POC Glucose Calcium Magnesium Ferritin 657.0 H AST Lactate Dehydrogenase Total Creatine Kinase Troponin T C-Reactive Protein Total Protein Albumin Triglycerides HDL Cholesterol Arterial Blood Glucose Arterial Blood Ionized Calcium Urine WBC (Auto) Vancomycin Trough Salicylates < 0.3 L Acetaminophen 5.7 L Coronavirus (PCR) 07/18/21 07/18/21 07/19/21 Unknown Unknown 04:33 WBC RBC Hgb Hct RDW Lymph % (Auto) Lymph # (Auto) Seg Neutrophils % Seg Neuts % (Manual) Lymphocytes % (Manual) Nucleated RBC % Seg Neutrophils # Seg Neutrophils # Man Lymphocytes # (Manual) Monocytes # (Manual) PT D-Dimer ABG pH 7.275 L POC ABG pCO2 POC ABG pO2 68.7 L 53.1 L ABG pO2 ABG O2 Saturation ABG Base Excess ABG Hemoglobin ABG Oxyhemoglobin 88.3 L 85.3 L ABG Sodium ABG Chloride 109.0 H ABG Glucose 170 H 150 H Oxyhemoglobin Carboxyhemoglobin 0 L 0.3 L Sodium Potassium Chloride Carbon Dioxide BUN Creatinine Glucose POC Glucose Calcium Magnesium Ferritin AST Lactate Dehydrogenase Total Creatine Kinase Troponin T C-Reactive Protein Total Protein Albumin Triglycerides HDL Cholesterol Arterial Blood Glucose 170 H 150 H Arterial Blood Ionized Calcium Urine WBC (Auto) 9.0 H Vancomycin Trough Salicylates Acetaminophen Coronavirus (PCR) 07/19/21 07/19/21 07/19/21 04:59 04:59 Unknown WBC RBC Hgb Hct RDW 16.0 H Lymph % (Auto) 10.7 L Lymph # (Auto) 1.1 L Seg Neutrophils % 84.3 H Seg Neuts % (Manual) Lymphocytes % (Manual) Nucleated RBC % Seg Neutrophils # 8.7 H Seg Neutrophils # Man Lymphocytes # (Manual) Monocytes # (Manual) PT D-Dimer ABG pH POC ABG pCO2 POC ABG pO2 ABG pO2 ABG O2 Saturation ABG Base Excess ABG Hemoglobin ABG Oxyhemoglobin ABG Sodium ABG Chloride ABG Glucose Oxyhemoglobin Carboxyhemoglobin Sodium Potassium Chloride 108.8 H Carbon Dioxide 21 L BUN 28 H Creatinine 1.8 H Glucose 145 H POC Glucose Calcium 7.8 L Magnesium Ferritin AST Lactate Dehydrogenase Total Creatine Kinase Troponin T C-Reactive Protein Total Protein 6.2 L Albumin 3.2 L Triglycerides HDL Cholesterol Arterial Blood Glucose Arterial Blood Ionized Calcium Urine WBC (Auto) Vancomycin Trough Salicylates Acetaminophen Coronavirus (PCR) Positive A 07/19/21 07/20/21 07/20/21 Unknown 00:14 04:44 WBC RBC Hgb Hct RDW Lymph % (Auto) Lymph # (Auto) Seg Neutrophils % Seg Neuts % (Manual) Lymphocytes % (Manual) Nucleated RBC % Seg Neutrophils # Seg Neutrophils # Man Lymphocytes # (Manual) Monocytes # (Manual) PT D-Dimer ABG pH POC ABG pCO2 POC ABG pO2 ABG pO2 64.2 L ABG O2 Saturation 93.2 L ABG Base Excess -4.5 L ABG Hemoglobin 11.0 L ABG Oxyhemoglobin ABG Sodium ABG Chloride ABG Glucose Oxyhemoglobin 91.9 L Carboxyhemoglobin Sodium Potassium Chloride 112.2 H Carbon Dioxide BUN 38 H Creatinine 1.3 H Glucose 156 H POC Glucose 164 H Calcium 8.1 L Magnesium 3.10 H Ferritin AST Lactate Dehydrogenase Total Creatine Kinase Troponin T C-Reactive Protein Total Protein Albumin 2.8 L Triglycerides HDL Cholesterol Arterial Blood Glucose Arterial Blood Ionized Calcium Urine WBC (Auto) Vancomycin Trough Salicylates Acetaminophen Coronavirus (PCR) 07/20/21 07/20/21 07/20/21 04:44 05:00 05:40 WBC RBC 3.42 L Hgb 9.7 L Hct 29.3 L RDW 16.1 H Lymph % (Auto) Lymph # (Auto) Seg Neutrophils % Seg Neuts % (Manual) Lymphocytes % (Manual) Nucleated RBC % Seg Neutrophils # Seg Neutrophils # Man Lymphocytes # (Manual) Monocytes # (Manual) PT D-Dimer ABG pH POC ABG pCO2 POC ABG pO2 139.0 H ABG pO2 ABG O2 Saturation ABG Base Excess ABG Hemoglobin 10.1 L ABG Oxyhemoglobin ABG Sodium ABG Chloride 113.0 H ABG Glucose 155 H Oxyhemoglobin Carboxyhemoglobin 0.3 L Sodium Potassium Chloride Carbon Dioxide BUN Creatinine Glucose POC Glucose 164 H Calcium Magnesium Ferritin AST Lactate Dehydrogenase Total Creatine Kinase Troponin T C-Reactive Protein Total Protein Albumin Triglycerides HDL Cholesterol Arterial Blood Glucose 155 H Arterial Blood Ionized Calcium 4.4 L Urine WBC (Auto) Vancomycin Trough Salicylates Acetaminophen Coronavirus (PCR) 07/20/21 07/20/21 07/21/21 11:40 17:48 03:31 WBC RBC Hgb Hct RDW Lymph % (Auto) Lymph # (Auto) Seg Neutrophils % Seg Neuts % (Manual) Lymphocytes % (Manual) Nucleated RBC % Seg Neutrophils # Seg Neutrophils # Man Lymphocytes # (Manual) Monocytes # (Manual) PT D-Dimer ABG pH POC ABG pCO2 POC ABG pO2 ABG pO2 ABG O2 Saturation ABG Base Excess ABG Hemoglobin ABG Oxyhemoglobin ABG Sodium ABG Chloride ABG Glucose Oxyhemoglobin Carboxyhemoglobin Sodium Potassium Chloride Carbon Dioxide BUN Creatinine Glucose POC Glucose 137 H 143 H 157 H Calcium Magnesium Ferritin AST Lactate Dehydrogenase Total Creatine Kinase Troponin T C-Reactive Protein Total Protein Albumin Triglycerides HDL Cholesterol Arterial Blood Glucose Arterial Blood Ionized Calcium Urine WBC (Auto) Vancomycin Trough Salicylates Acetaminophen Coronavirus (PCR) 07/21/21 07/21/21 07/21/21 04:30 04:52 05:21 WBC RBC Hgb Hct RDW Lymph % (Auto) Lymph # (Auto) Seg Neutrophils % Seg Neuts % (Manual) Lymphocytes % (Manual) Nucleated RBC % Seg Neutrophils # Seg Neutrophils # Man Lymphocytes # (Manual) Monocytes # (Manual) PT D-Dimer ABG pH POC ABG pCO2 31.7 L POC ABG pO2 77.6 L ABG pO2 ABG O2 Saturation ABG Base Excess ABG Hemoglobin 10.2 L ABG Oxyhemoglobin ABG Sodium 148.3 H ABG Chloride 120.0 H ABG Glucose 168 H Oxyhemoglobin Carboxyhemoglobin 0.2 L Sodium 150 H Potassium Chloride 115.7 H Carbon Dioxide BUN 49 H Creatinine 1.4 H Glucose 185 H POC Glucose 170 H Calcium 8.3 L Magnesium Ferritin AST Lactate Dehydrogenase Total Creatine Kinase Troponin T C-Reactive Protein Total Protein Albumin 3.0 L Triglycerides HDL Cholesterol Arterial Blood Glucose 168 H Arterial Blood Ionized Calcium 4.4 L Urine WBC (Auto) Vancomycin Trough Salicylates Acetaminophen Coronavirus (PCR) 07/21/21 07/21/21 07/21/21 11:17 17:26 23:40 WBC RBC Hgb Hct RDW Lymph % (Auto) Lymph # (Auto) Seg Neutrophils % Seg Neuts % (Manual) Lymphocytes % (Manual) Nucleated RBC % Seg Neutrophils # Seg Neutrophils # Man Lymphocytes # (Manual) Monocytes # (Manual) PT D-Dimer ABG pH POC ABG pCO2 POC ABG pO2 ABG pO2 ABG O2 Saturation ABG Base Excess ABG Hemoglobin ABG Oxyhemoglobin ABG Sodium ABG Chloride ABG Glucose Oxyhemoglobin Carboxyhemoglobin Sodium Potassium Chloride Carbon Dioxide BUN Creatinine Glucose POC Glucose 176 H 184 H 161 H Calcium Magnesium Ferritin AST Lactate Dehydrogenase Total Creatine Kinase Troponin T C-Reactive Protein Total Protein Albumin Triglycerides HDL Cholesterol Arterial Blood Glucose Arterial Blood Ionized Calcium Urine WBC (Auto) Vancomycin Trough Salicylates Acetaminophen Coronavirus (PCR) 07/22/21 07/22/21 07/22/21 03:30 04:39 05:29 WBC RBC Hgb Hct RDW Lymph % (Auto) Lymph # (Auto) Seg Neutrophils % Seg Neuts % (Manual) Lymphocytes % (Manual) Nucleated RBC % Seg Neutrophils # Seg Neutrophils # Man Lymphocytes # (Manual) Monocytes # (Manual) PT D-Dimer ABG pH POC ABG pCO2 POC ABG pO2 67.4 L ABG pO2 ABG O2 Saturation ABG Base Excess ABG Hemoglobin 10.4 L ABG Oxyhemoglobin 91.8 L ABG Sodium 118.4 L ABG Chloride 114.0 H ABG Glucose 189 H Oxyhemoglobin Carboxyhemoglobin 0.2 L Sodium 146 H Potassium Chloride 112.8 H Carbon Dioxide 21 L BUN 46 H Creatinine Glucose 191 H POC Glucose 191 H Calcium Magnesium Ferritin AST Lactate Dehydrogenase Total Creatine Kinase Troponin T C-Reactive Protein Total Protein Albumin 2.9 L Triglycerides HDL Cholesterol Arterial Blood Glucose 189 H Arterial Blood Ionized Calcium 4.5 L Urine WBC (Auto) Vancomycin Trough Salicylates Acetaminophen Coronavirus (PCR) 07/22/21 07/22/21 07/22/21 12:17 17:54 23:34 WBC RBC Hgb Hct RDW Lymph % (Auto) Lymph # (Auto) Seg Neutrophils % Seg Neuts % (Manual) Lymphocytes % (Manual) Nucleated RBC % Seg Neutrophils # Seg Neutrophils # Man Lymphocytes # (Manual) Monocytes # (Manual) PT D-Dimer ABG pH POC ABG pCO2 POC ABG pO2 ABG pO2 ABG O2 Saturation ABG Base Excess ABG Hemoglobin ABG Oxyhemoglobin ABG Sodium ABG Chloride ABG Glucose Oxyhemoglobin Carboxyhemoglobin Sodium Potassium Chloride Carbon Dioxide BUN Creatinine Glucose POC Glucose 206 H 213 H 164 H Calcium Magnesium Ferritin AST Lactate Dehydrogenase Total Creatine Kinase Troponin T C-Reactive Protein Total Protein Albumin Triglycerides HDL Cholesterol Arterial Blood Glucose Arterial Blood Ionized Calcium Urine WBC (Auto) Vancomycin Trough Salicylates Acetaminophen Coronavirus (PCR) 07/23/21 07/23/21 07/23/21 03:30 05:21 09:02 WBC RBC Hgb Hct RDW Lymph % (Auto) Lymph # (Auto) Seg Neutrophils % Seg Neuts % (Manual) Lymphocytes % (Manual) Nucleated RBC % Seg Neutrophils # Seg Neutrophils # Man Lymphocytes # (Manual) Monocytes # (Manual) PT D-Dimer ABG pH POC ABG pCO2 POC ABG pO2 70.9 L ABG pO2 ABG O2 Saturation ABG Base Excess ABG Hemoglobin 10.9 L ABG Oxyhemoglobin 92.9 L ABG Sodium 130.2 L ABG Chloride 109.0 H ABG Glucose 177 H Oxyhemoglobin Carboxyhemoglobin 0.1 L Sodium Potassium 5.1 H Chloride Carbon Dioxide BUN 32 H Creatinine Glucose 200 H POC Glucose 191 H Calcium Magnesium Ferritin AST Lactate Dehydrogenase Total Creatine Kinase Troponin T C-Reactive Protein Total Protein Albumin Triglycerides HDL Cholesterol Arterial Blood Glucose 177 H Arterial Blood Ionized Calcium 4.3 L Urine WBC (Auto) Vancomycin Trough Salicylates Acetaminophen Coronavirus (PCR) 07/23/21 07/23/21 07/23/21 09:02 11:34 17:52 WBC 13.8 H RBC Hgb Hct RDW 15.7 H Lymph % (Auto) Lymph # (Auto) Seg Neutrophils % Seg Neuts % (Manual) Lymphocytes % (Manual) Nucleated RBC % Seg Neutrophils # Seg Neutrophils # Man Lymphocytes # (Manual) Monocytes # (Manual) PT D-Dimer ABG pH POC ABG pCO2 POC ABG pO2 ABG pO2 ABG O2 Saturation ABG Base Excess ABG Hemoglobin ABG Oxyhemoglobin ABG Sodium ABG Chloride ABG Glucose Oxyhemoglobin Carboxyhemoglobin Sodium Potassium Chloride Carbon Dioxide BUN Creatinine Glucose POC Glucose 208 H 158 H Calcium Magnesium Ferritin AST Lactate Dehydrogenase Total Creatine Kinase Troponin T C-Reactive Protein Total Protein Albumin Triglycerides HDL Cholesterol Arterial Blood Glucose Arterial Blood Ionized Calcium Urine WBC (Auto) Vancomycin Trough Salicylates Acetaminophen Coronavirus (PCR) 07/23/21 07/24/21 07/24/21 23:28 03:06 05:01 WBC RBC Hgb Hct RDW Lymph % (Auto) Lymph # (Auto) Seg Neutrophils % Seg Neuts % (Manual) Lymphocytes % (Manual) Nucleated RBC % Seg Neutrophils # Seg Neutrophils # Man Lymphocytes # (Manual) Monocytes # (Manual) PT D-Dimer ABG pH POC ABG pCO2 POC ABG pO2 51.1 L ABG pO2 ABG O2 Saturation ABG Base Excess ABG Hemoglobin ABG Oxyhemoglobin 85.0 L ABG Sodium 135.5 L ABG Chloride ABG Glucose 131 H Oxyhemoglobin Carboxyhemoglobin 0.4 L Sodium Potassium Chloride Carbon Dioxide BUN 29 H Creatinine Glucose 132 H POC Glucose 142 H Calcium 7.8 L Magnesium Ferritin AST Lactate Dehydrogenase Total Creatine Kinase Troponin T C-Reactive Protein Total Protein Albumin Triglycerides HDL Cholesterol Arterial Blood Glucose 131 H Arterial Blood Ionized Calcium 4.5 L Urine WBC (Auto) Vancomycin Trough Salicylates Acetaminophen Coronavirus (PCR) 07/24/21 07/24/21 07/24/21 05:06 11:38 17:26 WBC RBC Hgb Hct RDW Lymph % (Auto) Lymph # (Auto) Seg Neutrophils % Seg Neuts % (Manual) Lymphocytes % (Manual) Nucleated RBC % Seg Neutrophils # Seg Neutrophils # Man Lymphocytes # (Manual) Monocytes # (Manual) PT D-Dimer ABG pH POC ABG pCO2 POC ABG pO2 ABG pO2 ABG O2 Saturation ABG Base Excess ABG Hemoglobin ABG Oxyhemoglobin ABG Sodium ABG Chloride ABG Glucose Oxyhemoglobin Carboxyhemoglobin Sodium Potassium Chloride Carbon Dioxide BUN Creatinine Glucose POC Glucose 125 H 215 H 173 H Calcium Magnesium Ferritin AST Lactate Dehydrogenase Total Creatine Kinase Troponin T C-Reactive Protein Total Protein Albumin Triglycerides HDL Cholesterol Arterial Blood Glucose Arterial Blood Ionized Calcium Urine WBC (Auto) Vancomycin Trough Salicylates Acetaminophen Coronavirus (PCR) 07/24/21 07/25/21 07/25/21 23:23 03:33 04:28 WBC RBC Hgb Hct RDW Lymph % (Auto) Lymph # (Auto) Seg Neutrophils % Seg Neuts % (Manual) Lymphocytes % (Manual) Nucleated RBC % Seg Neutrophils # Seg Neutrophils # Man Lymphocytes # (Manual) Monocytes # (Manual) PT D-Dimer ABG pH POC ABG pCO2 POC ABG pO2 ABG pO2 ABG O2 Saturation ABG Base Excess ABG Hemoglobin ABG Oxyhemoglobin ABG Sodium 135.6 L ABG Chloride ABG Glucose 174 H Oxyhemoglobin Carboxyhemoglobin 0.1 L Sodium Potassium 5.1 H Chloride 107.7 H Carbon Dioxide BUN 29 H Creatinine Glucose 164 H POC Glucose 133 H Calcium 7.3 L Magnesium Ferritin AST Lactate Dehydrogenase Total Creatine Kinase Troponin T C-Reactive Protein Total Protein Albumin Triglycerides HDL Cholesterol Arterial Blood Glucose 174 H Arterial Blood Ionized Calcium Urine WBC (Auto) Vancomycin Trough Salicylates Acetaminophen Coronavirus (PCR) 07/25/21 07/25/21 07/25/21 04:28 04:28 05:17 WBC 14.9 H RBC Hgb Hct RDW 15.6 H Lymph % (Auto) Lymph # (Auto) Seg Neutrophils % Seg Neuts % (Manual) 92.0 H Lymphocytes % (Manual) 2.0 L Nucleated RBC % Seg Neutrophils # Seg Neutrophils # Man 13.7 H Lymphocytes # (Manual) 0.3 L Monocytes # (Manual) PT D-Dimer ABG pH POC ABG pCO2 POC ABG pO2 ABG pO2 ABG O2 Saturation ABG Base Excess ABG Hemoglobin ABG Oxyhemoglobin ABG Sodium ABG Chloride ABG Glucose Oxyhemoglobin Carboxyhemoglobin Sodium Potassium Chloride Carbon Dioxide BUN Creatinine Glucose POC Glucose 173 H Calcium Magnesium Ferritin AST Lactate Dehydrogenase Total Creatine Kinase Troponin T C-Reactive Protein Total Protein Albumin Triglycerides HDL Cholesterol Arterial Blood Glucose Arterial Blood Ionized Calcium Urine WBC (Auto) Vancomycin Trough 22.9 H Salicylates Acetaminophen Coronavirus (PCR) 07/25/21 07/25/21 07/25/21 11:29 17:00 23:46 WBC RBC Hgb Hct RDW Lymph % (Auto) Lymph # (Auto) Seg Neutrophils % Seg Neuts % (Manual) Lymphocytes % (Manual) Nucleated RBC % Seg Neutrophils # Seg Neutrophils # Man Lymphocytes # (Manual) Monocytes # (Manual) PT D-Dimer ABG pH POC ABG pCO2 POC ABG pO2 ABG pO2 ABG O2 Saturation ABG Base Excess ABG Hemoglobin ABG Oxyhemoglobin ABG Sodium ABG Chloride ABG Glucose Oxyhemoglobin Carboxyhemoglobin Sodium Potassium Chloride Carbon Dioxide BUN Creatinine Glucose POC Glucose 191 H 184 H 192 H Calcium Magnesium Ferritin AST Lactate Dehydrogenase Total Creatine Kinase Troponin T C-Reactive Protein Total Protein Albumin Triglycerides HDL Cholesterol Arterial Blood Glucose Arterial Blood Ionized Calcium Urine WBC (Auto) Vancomycin Trough Salicylates Acetaminophen Coronavirus (PCR) 07/26/21 07/26/21 07/26/21 03:17 05:33 06:07 WBC 18.0 H RBC Hgb Hct RDW 15.6 H Lymph % (Auto) Lymph # (Auto) Seg Neutrophils % Seg Neuts % (Manual) 87.0 H Lymphocytes % (Manual) 5.0 L Nucleated RBC % Seg Neutrophils # Seg Neutrophils # Man 15.7 H Lymphocytes # (Manual) 0.9 L Monocytes # (Manual) 1.1 H PT D-Dimer ABG pH POC ABG pCO2 POC ABG pO2 73.7 L ABG pO2 ABG O2 Saturation ABG Base Excess ABG Hemoglobin 11.8 L ABG Oxyhemoglobin 93.6 L ABG Sodium ABG Chloride ABG Glucose 183 H Oxyhemoglobin Carboxyhemoglobin 0.2 L Sodium Potassium Chloride Carbon Dioxide BUN Creatinine Glucose POC Glucose 172 H Calcium Magnesium Ferritin AST Lactate Dehydrogenase Total Creatine Kinase Troponin T C-Reactive Protein Total Protein Albumin Triglycerides HDL Cholesterol Arterial Blood Glucose 183 H Arterial Blood Ionized Calcium Urine WBC (Auto) Vancomycin Trough Salicylates Acetaminophen Coronavirus (PCR) 07/26/21 07/26/21 07/26/21 06:07 11:46 13:53 WBC RBC Hgb Hct RDW Lymph % (Auto) Lymph # (Auto) Seg Neutrophils % Seg Neuts % (Manual) Lymphocytes % (Manual) Nucleated RBC % Seg Neutrophils # Seg Neutrophils # Man Lymphocytes # (Manual) Monocytes # (Manual) PT D-Dimer 6992.45 H ABG pH POC ABG pCO2 POC ABG pO2 ABG pO2 ABG O2 Saturation ABG Base Excess ABG Hemoglobin ABG Oxyhemoglobin ABG Sodium ABG Chloride ABG Glucose Oxyhemoglobin Carboxyhemoglobin Sodium Potassium 5.4 H Chloride Carbon Dioxide BUN 33 H Creatinine Glucose 155 H POC Glucose 142 H Calcium 8.3 L Magnesium Ferritin AST Lactate Dehydrogenase Total Creatine Kinase Troponin T C-Reactive Protein Total Protein Albumin Triglycerides HDL Cholesterol Arterial Blood Glucose Arterial Blood Ionized Calcium Urine WBC (Auto) Vancomycin Trough Salicylates Acetaminophen Coronavirus (PCR) 07/26/21 07/26/21 07/26/21 13:53 14:16 17:29 WBC RBC Hgb Hct RDW Lymph % (Auto) Lymph # (Auto) Seg Neutrophils % Seg Neuts % (Manual) Lymphocytes % (Manual) Nucleated RBC % Seg Neutrophils # Seg Neutrophils # Man Lymphocytes # (Manual) Monocytes # (Manual) PT D-Dimer ABG pH POC ABG pCO2 POC ABG pO2 ABG pO2 ABG O2 Saturation ABG Base Excess ABG Hemoglobin ABG Oxyhemoglobin ABG Sodium ABG Chloride ABG Glucose Oxyhemoglobin Carboxyhemoglobin Sodium Potassium Chloride Carbon Dioxide BUN Creatinine Glucose 200 H POC Glucose 185 H Calcium Magnesium Ferritin 348.4 H AST Lactate Dehydrogenase 515 H Total Creatine Kinase Troponin T C-Reactive Protein Total Protein Albumin Triglycerides HDL Cholesterol Arterial Blood Glucose Arterial Blood Ionized Calcium Urine WBC (Auto) Vancomycin Trough Salicylates Acetaminophen Coronavirus (PCR) 07/26/21 07/27/21 07/27/21 23:30 04:00 04:48 WBC 16.5 H RBC Hgb Hct RDW Lymph % (Auto) Lymph # (Auto) Seg Neutrophils % Seg Neuts % (Manual) 92.0 H Lymphocytes % (Manual) 3.0 L Nucleated RBC % 1.0 H Seg Neutrophils # Seg Neutrophils # Man 15.2 H Lymphocytes # (Manual) 0.5 L Monocytes # (Manual) PT D-Dimer ABG pH 7.481 H POC ABG pCO2 POC ABG pO2 70.4 L ABG pO2 ABG O2 Saturation ABG Base Excess ABG Hemoglobin 11.6 L ABG Oxyhemoglobin ABG Sodium 131.9 L ABG Chloride ABG Glucose 207 H Oxyhemoglobin Carboxyhemoglobin Sodium Potassium Chloride Carbon Dioxide BUN Creatinine Glucose POC Glucose 186 H Calcium Magnesium Ferritin AST Lactate Dehydrogenase Total Creatine Kinase Troponin T C-Reactive Protein Total Protein Albumin Triglycerides HDL Cholesterol Arterial Blood Glucose 207 H Arterial Blood Ionized Calcium Urine WBC (Auto) Vancomycin Trough Salicylates Acetaminophen Coronavirus (PCR) 07/27/21 07/27/21 07/27/21 04:48 05:04 11:36 WBC RBC Hgb Hct RDW Lymph % (Auto) Lymph # (Auto) Seg Neutrophils % Seg Neuts % (Manual) Lymphocytes % (Manual) Nucleated RBC % Seg Neutrophils # Seg Neutrophils # Man Lymphocytes # (Manual) Monocytes # (Manual) PT D-Dimer ABG pH POC ABG pCO2 POC ABG pO2 ABG pO2 ABG O2 Saturation ABG Base Excess ABG Hemoglobin ABG Oxyhemoglobin ABG Sodium ABG Chloride ABG Glucose Oxyhemoglobin Carboxyhemoglobin Sodium Potassium Chloride Carbon Dioxide BUN 35 H Creatinine Glucose 216 H POC Glucose 201 H 142 H Calcium Magnesium Ferritin AST Lactate Dehydrogenase Total Creatine Kinase Troponin T C-Reactive Protein Total Protein Albumin Triglycerides HDL Cholesterol Arterial Blood Glucose Arterial Blood Ionized Calcium Urine WBC (Auto) Vancomycin Trough Salicylates Acetaminophen Coronavirus (PCR) 07/27/21 07/27/21 07/28/21 18:14 22:03 04:00 WBC RBC Hgb Hct RDW Lymph % (Auto) Lymph # (Auto) Seg Neutrophils % Seg Neuts % (Manual) Lymphocytes % (Manual) Nucleated RBC % Seg Neutrophils # Seg Neutrophils # Man Lymphocytes # (Manual) Monocytes # (Manual) PT D-Dimer ABG pH 7.491 H POC ABG pCO2 POC ABG pO2 109.2 H ABG pO2 ABG O2 Saturation ABG Base Excess ABG Hemoglobin ABG Oxyhemoglobin ABG Sodium 133.9 L ABG Chloride ABG Glucose 163 H Oxyhemoglobin Carboxyhemoglobin Sodium Potassium Chloride Carbon Dioxide BUN Creatinine Glucose POC Glucose 166 H 149 H Calcium Magnesium Ferritin AST Lactate Dehydrogenase Total Creatine Kinase Troponin T C-Reactive Protein Total Protein Albumin Triglycerides HDL Cholesterol Arterial Blood Glucose 163 H Arterial Blood Ionized Calcium Urine WBC (Auto) Vancomycin Trough Salicylates Acetaminophen Coronavirus (PCR) 07/28/21 07/28/21 07/28/21 04:10 04:10 04:10 WBC RBC Hgb Hct RDW Lymph % (Auto) Lymph # (Auto) Seg Neutrophils % Seg Neuts % (Manual) Lymphocytes % (Manual) Nucleated RBC % Seg Neutrophils # Seg Neutrophils # Man Lymphocytes # (Manual) Monocytes # (Manual) PT D-Dimer 5318.85 H ABG pH POC ABG pCO2 POC ABG pO2 ABG pO2 ABG O2 Saturation ABG Base Excess ABG Hemoglobin ABG Oxyhemoglobin ABG Sodium ABG Chloride ABG Glucose Oxyhemoglobin Carboxyhemoglobin Sodium Potassium Chloride Carbon Dioxide 31 H BUN 35 H Creatinine Glucose 187 H POC Glucose Calcium Magnesium Ferritin 324.6 H AST Lactate Dehydrogenase 414 H Total Creatine Kinase Troponin T C-Reactive Protein Total Protein Albumin Triglycerides HDL Cholesterol Arterial Blood Glucose Arterial Blood Ionized Calcium Urine WBC (Auto) Vancomycin Trough Salicylates Acetaminophen Coronavirus (PCR) 07/28/21 07/28/21 07/28/21 04:10 05:25 12:10 WBC 13.7 H RBC Hgb Hct RDW Lymph % (Auto) Lymph # (Auto) Seg Neutrophils % Seg Neuts % (Manual) Lymphocytes % (Manual) Nucleated RBC % Seg Neutrophils # Seg Neutrophils # Man Lymphocytes # (Manual) Monocytes # (Manual) PT D-Dimer ABG pH POC ABG pCO2 POC ABG pO2 ABG pO2 ABG O2 Saturation ABG Base Excess ABG Hemoglobin ABG Oxyhemoglobin ABG Sodium ABG Chloride ABG Glucose Oxyhemoglobin Carboxyhemoglobin Sodium Potassium Chloride Carbon Dioxide BUN Creatinine Glucose POC Glucose 152 H 162 H Calcium Magnesium Ferritin AST Lactate Dehydrogenase Total Creatine Kinase Troponin T C-Reactive Protein Total Protein Albumin Triglycerides HDL Cholesterol Arterial Blood Glucose Arterial Blood Ionized Calcium Urine WBC (Auto) Vancomycin Trough Salicylates Acetaminophen Coronavirus (PCR)
[2021-07-28] MEDS ORDERED: hydrALAZINE 25 MG TAB PO SCH (15:00)
--- NOTE | 2021-07-28 15:34 | XRay Report ---
CHEST 1 VIEW 07/28/2021 2:18 PM INDICATION / CLINICAL INFORMATION: Verify position of ET tube. COMPARISON: 07/27/2021 FINDINGS: SUPPORT DEVICES: Endotracheal tube terminates approximately 1.5 cm above the mirian. HEART / MEDIASTINUM: Stable. LUNGS / PLEURA: Mild patchy airspace disease is unchanged. No pneumothorax. ADDITIONAL FINDINGS: No significant additional findings. IMPRESSION: 1. Endotracheal tube is about 1.5 cm from the mirian. Recommend retraction of approximately 3 cm with repeat radiograph. Signer Name: Bryan Foley MD Signed: 07/28/2021 3:30 PM Workstation Name: [id number]
--- NOTE | 2021-07-28 16:03 | Progress Note ---
Assessment and Plan Cultures: Blood culture 07/18/2021 no growth so far Urine culture 07/18/2021 no growth so far A/P: 55 yo F PMHx HTN, DM2 presents with severe COVID pneumonia. #Presumed COVID pneumonia: pending PCR, clinical presentation consistent with d iagnosis. Elevated procalcitonin as well, however in the setting of ION #Acute hypoxic respiratory failure: currently on the vent #Bilateral pulmonary emboli: anticoagulation per hospital protocol #Tricuspid valve thrombus #ION Recs: -Continue cefepime given fevers, plan 8 days -Agree with cardiology TV lesion likely thrombus -Completed 5 days remdesivir -Received Actemra 07/20/2021 -Anticoagulation per hospital protocol -Proning as able -Obtain q48-72h inflammatory markers - ferritin, Ddimer, CRP, LDH Thank you for the consult, we will continue to follow. Jessica Hassan MD [facility] O: [phone] F: [phone] Subjective Date of service: 07/28/21 Principal diagnosis: COVID pneumonia Interval history: Afebrile, white count 13.7 which is improving. Remains on the vent. Imaging personally reviewed: Chest x-ray: Stable bilateral airspace disease. Objective - Exam Narrative Exam: Physical exam deferred to reduce risk of transmission of COVID-19. Please refer to primary team's note. - Constitutional Vitals: Vital Signs Temp Pulse Resp BP Pulse Ox 98.3 F 52 L 26 H 132/50 97 07/28/21 14:50 07/28/21 15:45 07/28/21 15:00 07/28/21 15:45 07/28/21 15:00 Temperature -Last 24 Hours Temperature 98.3 F Temperature 98.3 F Temperature 98.3 F Temperature 99.4 F Temperature 97.4 F Temperature 98.9 F Temperature 99.0 F - Labs CBC & Chem 7: 07/28/21 04:10 07/28/21 04:10 Labs: Abnormal lab results 07/27/21 07/27/21 07/28/21 Range/Units 18:14 22:03 04:00 WBC (4.5-11.0) K/mm3 D-Dimer (0-234) ng/mlDDU ABG pH 7.491 H (7.320-7.450) POC ABG pO2 109.2 H (83-108) mmHg ABG Sodium 133.9 L (136.0-145.0) mmol/L ABG Glucose 163 H (65-95) mg/dL Carbon Dioxide (22-30) mmol/L BUN (7-17) mg/dL Glucose (65-100) mg/dL POC Glucose 166 H 149 H (70-105) mg/dL Ferritin (10.0-200.0) ng/mL Lactate Dehydrogenase (91-180) units/L Arterial Blood Glucose 163 H (65-95) mg/dL 07/28/21 07/28/21 07/28/21 Range/Units 04:10 04:10 04:10 WBC (4.5-11.0) K/mm3 D-Dimer 5318.85 H (0-234) ng/mlDDU ABG pH (7.320-7.450) POC ABG pO2 (83-108) mmHg ABG Sodium (136.0-145.0) mmol/L ABG Glucose (65-95) mg/dL Carbon Dioxide 31 H (22-30) mmol/L BUN 35 H (7-17) mg/dL Glucose 187 H (65-100) mg/dL POC Glucose (70-105) mg/dL Ferritin 324.6 H (10.0-200.0) ng/mL Lactate Dehydrogenase 414 H (91-180) units/L Arterial Blood Glucose (65-95) mg/dL 07/28/21 07/28/21 07/28/21 Range/Units 04:10 05:25 12:10 WBC 13.7 H (4.5-11.0) K/mm3 D-Dimer (0-234) ng/mlDDU ABG pH (7.320-7.450) POC ABG pO2 (83-108) mmHg ABG Sodium (136.0-145.0) mmol/L ABG Glucose (65-95) mg/dL Carbon Dioxide (22-30) mmol/L BUN (7-17) mg/dL Glucose (65-100) mg/dL POC Glucose 152 H 162 H (70-105) mg/dL Ferritin (10.0-200.0) ng/mL Lactate Dehydrogenase (91-180) units/L Arterial Blood Glucose (65-95) mg/dL
--- NOTE | 2021-07-28 19:32 | Progress Note ---
<KMAARIRYAN BermudezVeronica - Last Filed: 07/28/21 19:28> Assessment and Plan Assessment and plan: This is a 55-year-old female with obesity, diabetes, anxiety, hypertension admitted with severe Covid 19 pneumonia, multiple subsegmental pulmonary embolism, acute kidney injury and sepsis Neuro: Acute metabolic encephalopathy, h/o anxiety -Sedated with fentanyl and Versed -Goal RASS 0 to -1 -Daily SAT trial when appropriate -Avoid delirium -Bilateral wrist restraints for safety CV: SRSB, mobile echogenic density on the tricuspid valve apparatus -Cardiology consulted, appreciate recommendations -Cardiology concluded SB likely aggravated by remdesivir -Normal TSH -Recommend repeat echo in 3 months to evaluate mobile port density -Per cardiology: Given clinical picture density most likely represents a thrombus in the second vegetation Respiratory: ARDS, acute hypoxic respiratory failure, severe COVID-19 bronchopneumonia -Intubated 07/18 with 7.50 ETT at 21 the lips -CCM consulted, appreciate recommendations -VAP bundle -A.m. vent settings assist control TV 420, R 26, PEEP 12, 60% fiO2 -Daily CXR and ABG -Daily SAT/SBT trials when appropriate -RT advanced oett today GI: Moderate protein calorie malnutrition, obesity -Nutrition consult -On tube feedings -BR with Senokot -PPI -24-hour fluid balance +185ml -Free water flush 200 mL every 4 : Acute kidney injury secondary to sepsis/ATN, hyperkalemia (resolved) -Strict intake and output -Daily weights -Monitor and intervene with electrolytes as needed -Trend BMP Heme: Multiple subsegmental pulmonary embolism, LLE DVT -On Lovenox -Trend CBC -Monitor temperature curve -SCDs to bilateral lower extremities while in bed -Evidenced on CTA chest-> see results -BLE US shows LLE DVT ID: COVID-19 pneumonia, sepsis/septic shock -Infectious disease consulted, appreciate recommendations -COVID-19 PCR positive -Antibiotics with cefepime -S/p remdesivir and Actemra -Solu-Medrol 60 mg every 8->weaning per CCM -Contact/droplet isolation -Prone as tolerated and needed -Pulmonary hygiene -Trend COVID-19 from 2 markers to risk stratification Endo: Stress hyperglycemia, obesity, h/o DM type II -Avoid hypoglycemia -SSI -Accu-Cheks every 6 The high probability of a clinically significant, sudden or life threatening deterioration of the [multi] system(s) required my full and direct attention, intervention and personal management. The aggregate critical care time was [60] minutes. This time is in addition to time spent performing reported procedures but includes the following: [x] Data Review and interpretation [x] Patient assessment and monitoring of vital signs [x] Documentation [x] Medication orders and management Disposition Plan: icu Total Time Spent with Patient (Minutes): 60 History Interval history: This is a 55-year-old female with obesity, diabetes, anxiety, hypertension who presented to the emergency department on 07/18 via EMS for low oxygen saturations on CPAP in the high 60s to 70s. In the emergency department patient had persistently low oxygen levels and was intubated electively. Work-up in the emergency department revealed bilateral pneumonia, multiple segmental bilateral pulmonary emboli, extensive bilateral Covid bronchopneumonia. Patient was admitted to the hospitalist service with consults to [facility] for acute hypoxic respiratory failure, acute encephalopathy, multiple pulmonary embolism ION and as a COVID-19 PUI. 07/18 admit to hospital via ER; being held in ER for ICU bed 07/19 remains in ER intubated and mechanically ventilated; covid pos - came to ICU overnight from ER; no bradycardic 07/21/2021. Patient remains orally intubated on mechanical ventilation AC mode rate of 26, tidal volume 420, FiO2 90% and PEEP of 16. Continue empiric antibiotics of ceftriaxone and azithromycin for 5 days total. Complete 5 days of remdesivir and continue IV steroids. Patient received Actemra 07/20/2021. Continue therapeutic anticoagulation with Lovenox 100 mg subcu twice daily. Continue sedation of fentanyl and Versed as tolerated. Continue pressors to maintain MAP > 65. Follow-up echocardiogram. 07/22/2021. Patient on mechanical ventilation AC mode rate of 26, FiO2 70% and PEEP of 16. Continue to wean FiO2 as tolerated. Continue antibiotics per ID recommendations. Patient currently with ceftriaxone and azithromycin. Complete 5 days of remdesivir. Continue IV steroids. Patient received Actemra on 07/20/2021. Continue prone positioning as able. Continue to trend inflammatory markers. 07/23/2021. Patient remains on mechanical ventilation AC mode rate of 26, tidal volume 420, FiO2 75% and PEEP of 16. Continue to wean FiO2 as tolerated. Continue antibiotics per ID recommendations. Patient currently with ceftriaxone and azithromycin. Complete 5 days of remdesivir. Continue IV steroids. Patient received Actemra on 07/20/2021. Continue prone positioning as able. Continue to trend inflammatory markers. ID and pulmonary following. 07/24/2021. Patient remains on mechanical ventilation AC mode rate of 26, tidal volume 420, FiO2 70% and PEEP of 16. Patient with possible tricuspid valve veg etation seen on echocardiogram. Consult cardiology for further evaluation. Continue IV antibiotics per ID recommendations. Prone position is possible. Continue to trend inflammatory markers. 07/25/2021. Patient remains on mechanical ventilation AC mode rate of 26, tidal volume 420, FiO2 70% and PEEP of 14. Patient with possible tricuspid valve vegetation seen on echocardiogram. Consult cardiology for further evaluation. Continue IV antibiotics per ID recommendations. Prone position is possible. Continue to trend inflammatory markers. 07/26: MICHAEL, hyperkalemia 07/27: OETT advanced. Remains sedated but able to follow commands. MICHAEL. 07/28: O ETT retracted. MICHAEL overnight. Patient remains sinus bradycardia and hypertensive at times. Remains on Versed and fentanyl. Hospitalist Physical - Constitutional Vitals: Temp Pulse Resp BP Pulse Ox 98.3 F 61 26 H 144/72 98 07/28/21 14:50 07/28/21 18:31 07/28/21 18:31 07/28/21 18:31 07/28/21 18:31 General appearance: Present: no acute distress, other (sedated) - EENT Eyes: Present: PERRL ENT: dentition normal - Neck Neck: Present: normal ROM - Respiratory Respiratory effort: normal Respiratory: bilateral: diminished - Cardiovascular Rhythm: regular Heart Sounds: Present: S1 & S2. Absent: systolic murmur, diastolic murmur - Extremities Extremities: no ischemia, pulses intact, pulses symmetrical, No edema, normal temperature, normal color Peripheral Pulses: within normal limits - Abdominal General gastrointestinal: soft, non-tender, non-distended, normal bowel sounds - Integumentary Integumentary: Present: warm, dry - Psychiatric Psychiatric: cooperative - Neurologic Neurologic: moves all extremities - Allied Health Allied health notes reviewed: nursing, RT, social work HEART Score - HEART Score Troponin: Troponin T 0.106 ng/mL (0.00-0.029) H* 07/18/21 16:00 Results - Labs CBC & Chem 7: 07/28/21 04:10 07/28/21 04:10 Labs: Laboratory Last Values WBC 13.7 K/mm3 (4.5-11.0) H 07/28/21 04:10 RBC 4.11 M/mm3 (3.65-5.03) 07/28/21 04:10 Hgb 11.5 gm/dl (10.1-14.3) 07/28/21 04:10 Hct 35.1 % (30.3-42.9) 07/28/21 04:10 MCV 85 fl (79-97) 07/28/21 04:10 MCH 28 pg (28-32) 07/28/21 04:10 MCHC 33 % (30-34) 07/28/21 04:10 RDW 15.0 % (13.2-15.2) 07/28/21 04:10 Plt Count 206 K/mm3 (140-440) 07/28/21 04:10 Lymph % (Auto) 10.7 % (13.4-35.0) L 07/19/21 04:59 [place] % (Auto) 4.8 % (0.0-7.3) 07/19/21 04:59 Eos % (Auto) 0.1 % (0.0-4.3) 07/19/21 04:59 Baso % (Auto) 0.1 % (0.0-1.8) 07/19/21 04:59 Lymph # (Auto) 1.1 K/mm3 (1.2-5.4) L 07/19/21 04:59 [place] # (Auto) 0.5 K/mm3 (0.0-0.8) 07/19/21 04:59 Eos # (Auto) 0.0 K/mm3 (0.0-0.4) 07/19/21 04:59 Baso # (Auto) 0.0 K/mm3 (0.0-0.1) 07/19/21 04:59 Add Manual Diff Complete 07/27/21 04:48 Total Counted 100 07/27/21 04:48 Seg Neutrophils % Director Speech 07/27/21 04:48 Seg Neuts % (Manual) 92.0 % (40.0-70.0) H 07/27/21 04:48 Band Neutrophils % 1.0 % 07/26/21 06:07 Lymphocytes % (Manual) 3.0 % (13.4-35.0) L 07/27/21 04:48 Monocytes % (Manual) 5.0 % (0.0-7.3) 07/27/21 04:48 Metamyelocytes % 1.0 % 07/26/21 06:07 Myelocytes % 1.0 % 07/25/21 04:28 Nucleated RBC % 1.0 % (0.0-0.9) H 07/27/21 04:48 Seg Neutrophils # 8.7 K/mm3 (1.8-7.7) H 07/19/21 04:59 Seg Neutrophils # Man 15.2 K/mm3 (1.8-7.7) H 07/27/21 04:48 Band Neutrophils # 0.0 K/mm3 07/27/21 04:48 Lymphocytes # (Manual) 0.5 K/mm3 (1.2-5.4) L 07/27/21 04:48 Abs React Lymphs (Man) 0.0 K/mm3 07/27/21 04:48 Monocytes # (Manual) 0.8 K/mm3 (0.0-0.8) 07/27/21 04:48 Eosinophils # (Manual) 0.0 K/mm3 (0.0-0.4) 07/27/21 04:48 Basophils # (Manual) 0.0 K/mm3 (0.0-0.1) 07/27/21 04:48 Metamyelocytes # 0.0 K/mm3 07/27/21 04:48 Myelocytes # 0.0 K/mm3 07/27/21 04:48 Promyelocytes # 0.0 K/mm3 07/27/21 04:48 Blast Cells # 0.0 K/mm3 07/27/21 04:48 WBC Morphology Not Reportable 07/27/21 04:48 Hypersegmented Neuts Not Reportable 07/27/21 04:48 Hyposegmented Neuts Not Reportable 07/27/21 04:48 Hypogranular Neuts Not Reportable 07/27/21 04:48 Smudge Cells Not Reportable 07/27/21 04:48 Toxic Granulation Not Reportable 07/27/21 04:48 Toxic Vacuolation Not Reportable 07/27/21 04:48 Dohle Bodies Not Reportable 07/27/21 04:48 Pelger-Huet Anomaly Not Reportable 07/27/21 04:48 Alonzo Rods Not Reportable 07/27/21 04:48 Platelet Estimate Consistent w auto 07/27/21 04:48 Clumped Platelets Not Reportable 07/27/21 04:48 Plt Clumps, EDTA Not Reportable 07/27/21 04:48 Large Platelets Not Reportable 07/27/21 04:48 Giant Platelets Not Reportable 07/27/21 04:48 Platelet Satelliting Not Reportable 07/27/21 04:48 Plt Morphology Comment Not Reportable 07/27/21 04:48 RBC Morphology Normal 07/27/21 04:48 Dimorphic RBCs Not Reportable 07/27/21 04:48 Polychromasia Not Reportable 07/27/21 04:48 Hypochromasia Not Reportable 07/27/21 04:48 Poikilocytosis Not Reportable 07/27/21 04:48 Anisocytosis Not Reportable 07/27/21 04:48 Microcytosis Not Reportable 07/27/21 04:48 Macrocytosis Not Reportable 07/27/21 04:48 Spherocytes Not Reportable 07/27/21 04:48 Pappenheimer Bodies Not Reportable 07/27/21 04:48 Sickle Cells Not Reportable 07/27/21 04:48 Target Cells Not Reportable 07/27/21 04:48 Tear Drop Cells Not Reportable 07/27/21 04:48 Ovalocytes Not Reportable 07/27/21 04:48 Helmet Cells Not Reportable 07/27/21 04:48 [place] Bodies Not Reportable 07/27/21 04:48 Tibbie Rings Not Reportable 07/27/21 04:48 [place] Cells Not Reportable 07/27/21 04:48 Bite Cells Not Reportable 07/27/21 04:48 Crenated Cell Not Reportable 07/27/21 04:48 Elliptocytes Not Reportable 07/27/21 04:48 Acanthocytes (Spur) Not Reportable 07/27/21 04:48 Rouleaux Not Reportable 07/27/21 04:48 Hemoglobin C Crystals Not Reportable 07/27/21 04:48 Schistocytes Not Reportable 07/27/21 04:48 Malaria parasites Not Reportable 07/27/21 04:48 Jarvis Bodies Not Reportable 07/27/21 04:48 Hem Pathologist Commnt No 07/27/21 04:48 PT 15.1 Sec. (12.2-14.9) H 07/18/21 16:00 INR 1.13 (0.87-1.13) 07/18/21 16:00 APTT 31.9 Sec. (24.2-36.6) 07/18/21 16:00 D-Dimer 5318.85 ng/mlDDU (0-234) H 07/28/21 04:10 ABG pH 7.491 (7.320-7.450) H 07/28/21 04:00 POC ABG pCO2 39.4 mmHg (32.0-48.0) 07/28/21 04:00 ABG pCO2 35.2 mm Hg 07/19/21 Unknown POC ABG pO2 109.2 mmHg (83-108) H 07/28/21 04:00 ABG pO2 64.2 mm Hg (80.0-90.0) L 07/19/21 Unknown POC ABG HCO3 29.4 07/28/21 04:00 ABG HCO3 20.1 mmol/L (20.0-26.0) 07/19/21 Unknown ABG O2 Saturation 98.2 (0-100) 07/28/21 04:00 ABG O2 Content 14.3 (0.0-44) 07/19/21 Unknown POC ABG Base Excess 5.7 07/28/21 04:00 ABG Base Excess -4.5 mmol/L (-2.0-3.0) L 07/19/21 Unknown ABG Hemoglobin 12.3 (12.0-17.5) 07/28/21 04:00 ABG Oxyhemoglobin 97.4 (94-98) 07/28/21 04:00 ABG Carboxyhemoglobin 0.8 % (0.0-5.0) 07/19/21 Unknown ABG Methemoglobin 0.3 (0.0-1.5) 07/28/21 04:00 ABG Sodium 133.9 mmol/L (136.0-145.0) L 07/28/21 04:00 ABG Potassium 4.4 mmol/L (3.40-4.50) 07/28/21 04:00 ABG Chloride 100.0 mmol/L (98-107) 07/28/21 04:00 ABG Glucose 163 mg/dL (65-95) H 07/28/21 04:00 Oxyhemoglobin 91.9 % (95.0-99.0) L 07/19/21 Unknown Carboxyhemoglobin 0.5 (0.5-1.5) 07/28/21 04:00 FiO2 100 % 07/19/21 Unknown FiO2 % 70.0 07/28/21 04:00 Sodium 138 mmol/L (137-145) 07/28/21 04:10 Potassium 4.6 mmol/L (3.6-5.0) 07/28/21 04:10 Chloride 100.8 mmol/L (98-107) 07/28/21 04:10 Carbon Dioxide 31 mmol/L (22-30) H 07/28/21 04:10 Anion Gap 11 mmol/L 07/28/21 04:10 BUN 35 mg/dL (7-17) H 07/28/21 04:10 Creatinine 0.6 mg/dL (0.6-1.2) 07/28/21 04:10 Estimated GFR > 60 ml/min 07/28/21 04:10 BUN/Creatinine Ratio 58 % 07/28/21 04:10 Glucose 187 mg/dL (65-100) H 07/28/21 04:10 POC Glucose 152 mg/dL (70-105) H 07/28/21 17:44 Lactic Acid 1.40 mmol/L (0.7-2.0) 07/18/21 16:00 Calcium 8.9 mg/dL (8.4-10.2) 07/28/21 04:10 Phosphorus 3.70 mg/dL (2.5-4.5) 07/20/21 04:44 Magnesium 3.10 mg/dL (1.7-2.3) H 07/20/21 04:44 Ferritin 324.6 ng/mL (10.0-200.0) H 07/28/21 04:10 Total Bilirubin 0.20 mg/dL (0.1-1.2) 07/22/21 04:39 AST 38 units/L (5-40) 07/22/21 04:39 ALT 29 units/L (7-56) 07/22/21 04:39 Alkaline Phosphatase 83 units/L (35-129) 07/22/21 04:39 Ammonia 37.0 umol/L (25-60) 07/18/21 16:00 Lactate Dehydrogenase 414 units/L (91-180) H 07/28/21 04:10 Total Creatine Kinase 157 units/L (30-135) H 07/18/21 16:00 Troponin T 0.106 ng/mL (0.00-0.029) H* 07/18/21 16:00 C-Reactive Protein 0.30 mg/dL (0.00-1.30) 07/28/21 04:10 Total Protein 6.4 g/dL (6.3-8.2) 07/22/21 04:39 Albumin 2.9 g/dL (3.9-5) L 07/22/21 04:39 Albumin/Globulin Ratio 0.8 % 07/22/21 04:39 Triglycerides 156 mg/dL (2-149) H 07/18/21 16:00 Cholesterol 127 mg/dL (50-199) 07/18/21 16:00 LDL Cholesterol Direct 64 mg/dL (50-130) 07/18/21 16:00 HDL Cholesterol 33 mg/dL (40-59) L 07/18/21 16:00 Cholesterol/HDL Ratio 3.84 % 07/18/21 16:00 Procalcitonin < 0.05 ng/mL (<0.15) 07/26/21 13:53 TSH 0.469 mlU/mL (0.270-4.200) 07/21/21 04:52 Free T4 1.05 ng/dL (0.76-1.46) 07/21/21 04:52 Arterial Blood Glucose 163 mg/dL (65-95) H 07/28/21 04:00 Arterial Blood Ionized Calcium 4.6 mg/dL (4.6-5.3) 07/28/21 04:00 Urine Color Yellow (Yellow) 07/18/21 Unknown Urine Turbidity Slightly-cloudy (Clear) 07/18/21 Unknown Urine pH 5.0 (5.0-7.0) 07/18/21 Unknown Ur Specific [place] 1.020 (1.003-1.030) 07/18/21 Unknown Urine Protein >500 mg/dL (Negative) 07/18/21 Unknown Urine Glucose (UA) Neg mg/dL (Negative) 07/18/21 Unknown Urine Ketones 20 mg/dL (Negative) 07/18/21 Unknown Urine Blood Neg (Negative) 07/18/21 Unknown Urine Nitrite Neg (Negative) 07/18/21 Unknown Urine Bilirubin Neg (Negative) 07/18/21 Unknown Urine Urobilinogen < 2.0 mg/dL (<2.0) 07/18/21 Unknown Ur Leukocyte Esterase Neg (Negative) 07/18/21 Unknown Urine WBC (Auto) 9.0 /HPF (0.0-6.0) H 07/18/21 Unknown Urine RBC (Auto) 2.0 /HPF (0.0-6.0) 07/18/21 Unknown U Epithel Cells (Auto) 1.0 /HPF (0-13.0) 07/18/21 Unknown Urine Bacteria (Auto) 1+ /HPF (Negative) 07/18/21 Unknown Amorphous Crystals Few 07/18/21 Unknown Urine Mucus Few /HPF 07/18/21 Unknown Vancomycin Trough 22.9 ug/mL (5.0-20.0) H 07/25/21 04:28 Salicylates < 0.3 mg/dL (2.8-20.0) L 07/18/21 16:00 Urine Opiates Screen Negative 07/18/21 Unknown Urine Methadone Screen Negative 07/18/21 Unknown Acetaminophen 5.7 ug/mL (10.0-30.0) L 07/18/21 16:00 Ur Barbiturates Screen Negative 07/18/21 Unknown Ur Phencyclidine Scrn Negative 07/18/21 Unknown Ur Amphetamines Screen Negative 07/18/21 Unknown U Benzodiazepines Scrn Negative 07/18/21 Unknown Urine Cocaine Screen Negative 07/18/21 Unknown U Marijuana (THC) Screen Negative 07/18/21 Unknown Drugs of Abuse Note Disclamer 07/18/21 Unknown Plasma/Serum Alcohol < 0.01 % (0-0.07) 07/18/21 16:00 Coronavirus (PCR) Positive (Negative) A 07/19/21 Unknown Blood Type O POSITIVE 07/18/21 16:05 Antibody Screen Negative 07/18/21 16:05 Guzman/IV: Voiding Method Indwelling Catheter Active Medications - Current Medications Current Medications: Generic Name Dose Route Start Last Admin Trade Name Freq PRN Reason Stop Dose Admin Acetaminophen 650 mg 07/18/21 22:49 Acetaminophen 325 Mg Tab PO Q4H PRN Pain MILD(1-3)/Fever >100.5/URENA Lipase/Protease/Amylase 1 each 07/18/21 22:56 Lipase 10,500/Protease 25,000/Amylase 43,750 (Units) Dr Alvarado FEEDTUBE PRN PRN For Clogged Feeding Tube Bisacodyl 10 mg 07/27/21 09:02 07/27/21 11:16 Bisacodyl 10 Mg Rect Supp IL 10 mg QDAY PRN Administration Constip unreliev by MOM/or NPO Enoxaparin Sodium 100 mg 07/19/21 10:00 07/28/21 09:41 Enoxaparin 100 Mg/1 Ml Inj SUB-Q 100 mg Q12HR NICOLE Administration Protocol Famotidine 20 mg 07/18/21 22:00 07/28/21 09:41 Famotidine 20 Mg/2 Ml Inj IV 20 mg BID NICOLE Administration Fentanyl 50 mcg 07/18/21 14:41 Fentanyl 100 Mcg/2 Ml Inj IV Q10MIN PRN ANALGESIA Hydralazine HCl 25 mg 07/28/21 15:00 07/28/21 15:45 Hydralazine 25 Mg Tab PO 25 mg Q8HR NICOLE Administration Hydrophilic Ointment 1 applic 07/18/21 14:41 Lip Therapy Vaseline TP Q2HR PRN Dry Lips Fentanyl Citrate 2,000 mcg in 100 mls @ 4.915 mls/hr 07/18/21 16:00 07/28/21 18:19 Fentanyl Drip Premix IV 4 mcg/kg/hr TITR NICOLE 19.66 mls/hr Administration Protocol 1 MCG/KG/HR Midazolam HCl 100 mg/ Sodium 100 mls @ 2 mls/hr 07/18/21 19:00 07/28/21 08:45 Chloride IV 5 mg/hr TITR NICOLE 5 mls/hr Administration Protocol 2 MG/HR Cefepime HCl 2 gm in 100 mls @ 200 mls/hr 07/25/21 14:00 07/28/21 13:12 Cefepime/Ns 2 Gm/100 Ml IV 200 mls/hr Q8H NICOLE Administration Protocol Insulin Glargine 5 units 07/27/21 22:00 07/27/21 22:18 Insulin Glargine 100 Units/Ml SUB-Q 5 units QHS NICOLE Administration Insulin Human Lispro 0 unit 07/27/21 12:00 07/28/21 18:01 Insulin Lispro 100 Unit/Ml SUB-Q 3 unit Q6HR NICOLE Administration Protocol Methylprednisolone Sodium Succinate 40 mg 07/27/21 14:00 07/28/21 13:12 Methylprednisolone Sod Succinate 40 Mg/1 Ml Inj IV 40 mg Q8HR NICOLE Administration Midazolam HCl 2 mg 07/18/21 18:11 07/22/21 07:56 Midazolam 2 Mg/2 Ml Inj IV 2 mg Q10MIN PRN Administration Sedation Multi-Ingred Cream/Lotion/Oil/Oint 1 applic 07/18/21 14:41 Mineral Oil/Petrolatum, White Ophth Oint 3.5 Gm OU Q4HR PRN Dry Eye(s) Ondansetron HCl 4 mg 07/18/21 22:49 Ondansetron 4 Mg/2 Ml Inj IV Q8H PRN Nausea And Vomiting Senna/Docusate Sodium 1 tab 07/18/21 22:00 07/28/21 09:41 Sennosides/Docusate Sodium 8.6/50 Mg Tab FEEDTUBE 1 tab BID NICOLE Administration Simple Syrup 15 ml 07/18/21 22:56 Simple Syrup 15 Ml FEEDTUBE PRN PRN Hypoglycemia Simple Syrup 30 ml 07/18/21 22:56 Simple Syrup 15 Ml FEEDTUBE PRN PRN Hypoglycemia Sodium Bicarbonate 325 mg 07/18/21 22:56 Sodium Bicarbonate 325 Mg Tab FEEDTUBE PRN PRN For Clogged Feeding Tube Sodium Chloride 10 ml 07/19/21 10:00 07/28/21 09:41 Sodium Chloride 0.9% 10 Ml Flush Syringe IV 10 ml BID NICOLE Administration Sodium Chloride 10 ml 07/18/21 22:49 Sodium Chloride 0.9% 10 Ml Flush Syringe IV PRN PRN LINE FLUSH Sodium Chloride 5 ml 07/20/21 14:38 Sodium Chloride 0.9% 1000 Ml Iv Soln IV PRN PRN ART-LINE Nutrition/Malnutrition Assess - Dietary Evaluation Nutrition/Malnutrition Findings: Nutrition Notes Start: 07/19/21 09:15 Freq: Status: Active Protocol: Document 07/26/21 10:11 CW (Rec: 07/26/21 10:21 CW [id number]) Nutrition Notes Initial or Follow up Reassessment Current Diagnosis Acute Kidney Injury,Diabetes, Hypertension,Respiratory Failure Other Pertinent Diagnosis COVID Current Diet Vital HP at 55 ml/hr Labs/Tests K 5.4 BUN 33 BG 155 Pertinent Medications Senokot Humalog Solumedrol Kionex Height 5 ft 6 in Weight 104.8 kg [place] Body Weight (kg) 59.09 BMI 37.3 Weight Status Obese Subjective/Other Information Pt remains on mechancial vent. TF continues to run at goal. No reports of TF intolerance. Percent of energy/protein needs met: 93%/98% Burn Absent Trauma Absent Difficulty In Swallowing Current % PO Negligible Minimum of two criteria No physical signs of malnutrition #1 Nutrition Diagnosis Inadequate oral intake Diagnosis Progress(for reassessment Continues documentation) Is patient on ventilator? Yes Is Patient Ambulatory and/or Out of Bed No REE-([facility]-confined to bed) 2000.624 Kcal/Kg value to use for calculation 14 Approximate Energy Requirements Using 1467 kcal/Kg Calculation Used for Recommendations Kcal/kg Additional Notes Protein: (>2g/kg IBW) >118g Fluid: 1 ml/kcal or per MD Nutrition Intervention Change Diet Order: Continue Vital HP Nutrition Support: Vital HP at 55 ml/hr Flush 50 ml q4h Kcal 1,320 Protein (gm) 116 Fluid (mL) 1,104 Goal #1 Meet at least 75% of protein and kcal needs via TF Anticipated Discharge Needs: Unable to determine at this time Follow-Up By: 07/29/21 Additional Comments F/u: TF tolerance <EDMUNDO DAS - Last Filed: 07/29/21 07:27> History Interval history: I saw and evaluated the patient. Discussed with the nurse practitioner and agree with their findings and plan as documented in this note. Hospitalist Physical - Constitutional Vitals: Temp Pulse Resp BP Pulse Ox 99.2 F 60 26 H 130/70 99 07/29/21 07:00 07/29/21 05:45 07/29/21 05:45 07/29/21 05:45 07/29/21 05:45 HEART Score - HEART Score Troponin: Troponin T 0.106 ng/mL (0.00-0.029) H* 07/18/21 16:00 Results - Labs CBC & Chem 7: 07/29/21 04:35 07/29/21 04:35 Labs: Laboratory Last Values WBC 12.0 K/mm3 (4.5-11.0) H 07/29/21 04:35 RBC 3.94 M/mm3 (3.65-5.03) 07/29/21 04:35 Hgb 11.3 gm/dl (10.1-14.3) 07/29/21 04:35 Hct 34.1 % (30.3-42.9) 07/29/21 04:35 MCV 87 fl (79-97) 07/29/21 04:35 MCH 29 pg (28-32) 07/29/21 04:35 MCHC 33 % (30-34) 07/29/21 04:35 RDW 14.7 % (13.2-15.2) 07/29/21 04:35 Plt Count 201 K/mm3 (140-440) 07/29/21 04:35 Lymph % (Auto) 10.7 % (13.4-35.0) L 07/19/21 04:59 [place] % (Auto) 4.8 % (0.0-7.3) 07/19/21 04:59 Eos % (Auto) 0.1 % (0.0-4.3) 07/19/21 04:59 Baso % (Auto) 0.1 % (0.0-1.8) 07/19/21 04:59 Lymph # (Auto) 1.1 K/mm3 (1.2-5.4) L 07/19/21 04:59 [place] # (Auto) 0.5 K/mm3 (0.0-0.8) 07/19/21 04:59 Eos # (Auto) 0.0 K/mm3 (0.0-0.4) 07/19/21 04:59 Baso # (Auto) 0.0 K/mm3 (0.0-0.1) 07/19/21 04:59 Add Manual Diff Complete 07/27/21 04:48 Total Counted 100 07/27/21 04:48 Seg Neutrophils % Director Speech 07/27/21 04:48 Seg Neuts % (Manual) 92.0 % (40.0-70.0) H 07/27/21 04:48 Band Neutrophils % 1.0 % 07/26/21 06:07 Lymphocytes % (Manual) 3.0 % (13.4-35.0) L 07/27/21 04:48 Monocytes % (Manual) 5.0 % (0.0-7.3) 07/27/21 04:48 Metamyelocytes % 1.0 % 07/26/21 06:07 Myelocytes % 1.0 % 07/25/21 04:28 Nucleated RBC % 1.0 % (0.0-0.9) H 07/27/21 04:48 Seg Neutrophils # 8.7 K/mm3 (1.8-7.7) H 07/19/21 04:59 Seg Neutrophils # Man 15.2 K/mm3 (1.8-7.7) H 07/27/21 04:48 Band Neutrophils # 0.0 K/mm3 07/27/21 04:48 Lymphocytes # (Manual) 0.5 K/mm3 (1.2-5.4) L 07/27/21 04:48 Abs React Lymphs (Man) 0.0 K/mm3 07/27/21 04:48 Monocytes # (Manual) 0.8 K/mm3 (0.0-0.8) 07/27/21 04:48 Eosinophils # (Manual) 0.0 K/mm3 (0.0-0.4) 07/27/21 04:48 Basophils # (Manual) 0.0 K/mm3 (0.0-0.1) 07/27/21 04:48 Metamyelocytes # 0.0 K/mm3 07/27/21 04:48 Myelocytes # 0.0 K/mm3 07/27/21 04:48 Promyelocytes # 0.0 K/mm3 07/27/21 04:48 Blast Cells # 0.0 K/mm3 07/27/21 04:48 WBC Morphology Not Reportable 07/27/21 04:48 Hypersegmented Neuts Not Reportable 07/27/21 04:48 Hyposegmented Neuts Not Reportable 07/27/21 04:48 Hypogranular Neuts Not Reportable 07/27/21 04:48 Smudge Cells Not Reportable 07/27/21 04:48 Toxic Granulation Not Reportable 07/27/21 04:48 Toxic Vacuolation Not Reportable 07/27/21 04:48 Dohle Bodies Not Reportable 07/27/21 04:48 Pelger-Huet Anomaly Not Reportable 07/27/21 04:48 Alonzo Rods Not Reportable 07/27/21 04:48 Platelet Estimate Consistent w auto 07/27/21 04:48 Clumped Platelets Not Reportable 07/27/21 04:48 Plt Clumps, EDTA Not Reportable 07/27/21 04:48 Large Platelets Not Reportable 07/27/21 04:48 Giant Platelets Not Reportable 07/27/21 04:48 Platelet Satelliting Not Reportable 07/27/21 04:48 Plt Morphology Comment Not Reportable 07/27/21 04:48 RBC Morphology Normal 07/27/21 04:48 Dimorphic RBCs Not Reportable 07/27/21 04:48 Polychromasia Not Reportable 07/27/21 04:48 Hypochromasia Not Reportable 07/27/21 04:48 Poikilocytosis Not Reportable 07/27/21 04:48 Anisocytosis Not Reportable 07/27/21 04:48 Microcytosis Not Reportable 07/27/21 04:48 Macrocytosis Not Reportable 07/27/21 04:48 Spherocytes Not Reportable 07/27/21 04:48 Pappenheimer Bodies Not Reportable 07/27/21 04:48 Sickle Cells Not Reportable 07/27/21 04:48 Target Cells Not Reportable 07/27/21 04:48 Tear Drop Cells Not Reportable 07/27/21 04:48 Ovalocytes Not Reportable 07/27/21 04:48 Helmet Cells Not Reportable 07/27/21 04:48 [place] Bodies Not Reportable 07/27/21 04:48 Tibbie Rings Not Reportable 07/27/21 04:48 [place] Cells Not Reportable 07/27/21 04:48 Bite Cells Not Reportable 07/27/21 04:48 Crenated Cell Not Reportable 07/27/21 04:48 Elliptocytes Not Reportable 07/27/21 04:48 Acanthocytes (Spur) Not Reportable 07/27/21 04:48 Rouleaux Not Reportable 07/27/21 04:48 Hemoglobin C Crystals Not Reportable 07/27/21 04:48 Schistocytes Not Reportable 07/27/21 04:48 Malaria parasites Not Reportable 07/27/21 04:48 Jarvis Bodies Not Reportable 07/27/21 04:48 Hem Pathologist Commnt No 07/27/21 04:48 PT 15.1 Sec. (12.2-14.9) H 07/18/21 16:00 INR 1.13 (0.87-1.13) 07/18/21 16:00 APTT 31.9 Sec. (24.2-36.6) 07/18/21 16:00 D-Dimer 5318.85 ng/mlDDU (0-234) H 07/28/21 04:10 ABG pH 7.510 (7.320-7.450) H 07/29/21 04:00 POC ABG pCO2 38.1 mmHg (32.0-48.0) 07/29/21 04:00 ABG pCO2 35.2 mm Hg 07/19/21 Unknown POC ABG pO2 113.0 mmHg (83-108) H 07/29/21 04:00 ABG pO2 64.2 mm Hg (80.0-90.0) L 07/19/21 Unknown POC ABG HCO3 29.7 07/29/21 04:00 ABG HCO3 20.1 mmol/L (20.0-26.0) 07/19/21 Unknown ABG O2 Saturation 98.0 (0-100) 07/29/21 04:00 ABG O2 Content 14.3 (0.0-44) 07/19/21 Unknown POC ABG Base Excess 6.3 07/29/21 04:00 ABG Base Excess -4.5 mmol/L (-2.0-3.0) L 07/19/21 Unknown ABG Hemoglobin 11.1 (12.0-17.5) L 07/29/21 04:00 ABG Oxyhemoglobin 97.4 (94-98) 07/29/21 04:00 ABG Carboxyhemoglobin 0.8 % (0.0-5.0) 07/19/21 Unknown ABG Methemoglobin 0.3 (0.0-1.5) 07/29/21 04:00 ABG Sodium 135.0 mmol/L (136.0-145.0) L 07/29/21 04:00 ABG Potassium 4.4 mmol/L (3.40-4.50) 07/29/21 04:00 ABG Chloride 101.0 mmol/L (98-107) 07/29/21 04:00 ABG Glucose 162 mg/dL (65-95) H 07/29/21 04:00 Oxyhemoglobin 91.9 % (95.0-99.0) L 07/19/21 Unknown Carboxyhemoglobin 0.3 (0.5-1.5) L 07/29/21 04:00 FiO2 100 % 07/19/21 Unknown FiO2 % 60.0 07/29/21 04:00 Sodium 138 mmol/L (137-145) 07/29/21 04:35 Potassium 4.8 mmol/L (3.6-5.0) 07/29/21 04:35 Chloride 99.6 mmol/L (98-107) 07/29/21 04:35 Carbon Dioxide 30 mmol/L (22-30) 07/29/21 04:35 Anion Gap 13 mmol/L 07/29/21 04:35 BUN 34 mg/dL (7-17) H 07/29/21 04:35 Creatinine 0.6 mg/dL (0.6-1.2) 07/29/21 04:35 Estimated GFR > 60 ml/min 07/29/21 04:35 BUN/Creatinine Ratio 57 % 07/29/21 04:35 Glucose 170 mg/dL (65-100) H 07/29/21 04:35 POC Glucose 153 mg/dL (70-105) H 07/29/21 05:47 Lactic Acid 1.40 mmol/L (0.7-2.0) 07/18/21 16:00 Calcium 9.0 mg/dL (8.4-10.2) 07/29/21 04:35 Phosphorus 3.70 mg/dL (2.5-4.5) 07/20/21 04:44 Magnesium 3.10 mg/dL (1.7-2.3) H 07/20/21 04:44 Ferritin 324.6 ng/mL (10.0-200.0) H 07/28/21 04:10 Total Bilirubin 0.20 mg/dL (0.1-1.2) 07/22/21 04:39 AST 38 units/L (5-40) 07/22/21 04:39 ALT 29 units/L (7-56) 07/22/21 04:39 Alkaline Phosphatase 83 units/L (35-129) 07/22/21 04:39 Ammonia 37.0 umol/L (25-60) 07/18/21 16:00 Lactate Dehydrogenase 414 units/L (91-180) H 07/28/21 04:10 Total Creatine Kinase 157 units/L (30-135) H 07/18/21 16:00 Troponin T 0.106 ng/mL (0.00-0.029) H* 07/18/21 16:00 C-Reactive Protein 0.30 mg/dL (0.00-1.30) 07/28/21 04:10 Total Protein 6.4 g/dL (6.3-8.2) 07/22/21 04:39 Albumin 2.9 g/dL (3.9-5) L 07/22/21 04:39 Albumin/Globulin Ratio 0.8 % 07/22/21 04:39 Triglycerides 156 mg/dL (2-149) H 07/18/21 16:00 Cholesterol 127 mg/dL (50-199) 07/18/21 16:00 LDL Cholesterol Direct 64 mg/dL (50-130) 07/18/21 16:00 HDL Cholesterol 33 mg/dL (40-59) L 07/18/21 16:00 Cholesterol/HDL Ratio 3.84 % 07/18/21 16:00 Procalcitonin < 0.05 ng/mL (<0.15) 07/26/21 13:53 TSH 0.469 mlU/mL (0.270-4.200) 07/21/21 04:52 Free T4 1.05 ng/dL (0.76-1.46) 07/21/21 04:52 Arterial Blood Glucose 162 mg/dL (65-95) H 07/29/21 04:00 Arterial Blood Ionized Calcium 4.4 mg/dL (4.6-5.3) L 07/29/21 04:00 Urine Color Yellow (Yellow) 07/18/21 Unknown Urine Turbidity Slightly-cloudy (Clear) 07/18/21 Unknown Urine pH 5.0 (5.0-7.0) 07/18/21 Unknown Ur Specific [place] 1.020 (1.003-1.030) 07/18/21 Unknown Urine Protein >500 mg/dL (Negative) 07/18/21 Unknown Urine Glucose (UA) Neg mg/dL (Negative) 07/18/21 Unknown Urine Ketones 20 mg/dL (Negative) 07/18/21 Unknown Urine Blood Neg (Negative) 07/18/21 Unknown Urine Nitrite Neg (Negative) 07/18/21 Unknown Urine Bilirubin Neg (Negative) 07/18/21 Unknown Urine Urobilinogen < 2.0 mg/dL (<2.0) 07/18/21 Unknown Ur Leukocyte Esterase Neg (Negative) 07/18/21 Unknown Urine WBC (Auto) 9.0 /HPF (0.0-6.0) H 07/18/21 Unknown Urine RBC (Auto) 2.0 /HPF (0.0-6.0) 07/18/21 Unknown U Epithel Cells (Auto) 1.0 /HPF (0-13.0) 07/18/21 Unknown Urine Bacteria (Auto) 1+ /HPF (Negative) 07/18/21 Unknown Amorphous Crystals Few 07/18/21 Unknown Urine Mucus Few /HPF 07/18/21 Unknown Vancomycin Trough 22.9 ug/mL (5.0-20.0) H 07/25/21 04:28 Salicylates < 0.3 mg/dL (2.8-20.0) L 07/18/21 16:00 Urine Opiates Screen Negative 07/18/21 Unknown Urine Methadone Screen Negative 07/18/21 Unknown Acetaminophen 5.7 ug/mL (10.0-30.0) L 07/18/21 16:00 Ur Barbiturates Screen Negative 07/18/21 Unknown Ur Phencyclidine Scrn Negative 07/18/21 Unknown Ur Amphetamines Screen Negative 07/18/21 Unknown U Benzodiazepines Scrn Negative 07/18/21 Unknown Urine Cocaine Screen Negative 07/18/21 Unknown U Marijuana (THC) Screen Negative 07/18/21 Unknown Drugs of Abuse Note Disclamer 07/18/21 Unknown Plasma/Serum Alcohol < 0.01 % (0-0.07) 07/18/21 16:00 Coronavirus (PCR) Positive (Negative) A 07/19/21 Unknown Blood Type O POSITIVE 07/18/21 16:05 Antibody Screen Negative 07/18/21 16:05 Guzman/IV: Voiding Method Indwelling Catheter Active Medications - Current Medications Current Medications: Generic Name Dose Route Start Last Admin Trade Name Freq PRN Reason Stop Dose Admin Acetaminophen 650 mg 07/18/21 22:49 Acetaminophen 325 Mg Tab PO Q4H PRN Pain MILD(1-3)/Fever >100.5/URENA Lipase/Protease/Amylase 1 each 07/18/21 22:56 Lipase 10,500/Protease 25,000/Amylase 43,750 (Units) Dr Alvarado FEEDTUBE PRN PRN For Clogged Feeding Tube Bisacodyl 10 mg 07/27/21 09:02 07/27/21 11:16 Bisacodyl 10 Mg Rect Supp [place] 10 mg QDAY PRN Administration Constip unreliev by MOM/or NPO Enoxaparin Sodium 100 mg 07/19/21 10:00 07/28/21 22:19 Enoxaparin 100 Mg/1 Ml Inj SUB-Q 100 mg Q12HR NICOLE Administration Protocol Famotidine 20 mg 07/18/21 22:00 07/28/21 09:41 Famotidine 20 Mg/2 Ml Inj IV 20 mg BID NICOLE Administration Fentanyl 50 mcg 07/18/21 14:41 Fentanyl 100 Mcg/2 Ml Inj IV Q10MIN PRN ANALGESIA Hydralazine HCl 25 mg 07/28/21 15:00 07/28/21 15:45 Hydralazine 25 Mg Tab PO 25 mg Q8HR NICOLE Administration Hydrophilic Ointment 1 applic 07/18/21 14:41 Lip Therapy Vaseline TP Q2HR PRN Dry Lips Fentanyl Citrate 2,000 mcg in 100 mls @ 4.915 mls/hr 07/18/21 16:00 07/29/21 00:49 Fentanyl Drip Premix IV 2 mcg/kg/hr TITR NICOLE 9.83 mls/hr Administration Protocol 1 MCG/KG/HR Midazolam HCl 100 mg/ Sodium 100 mls @ 2 mls/hr 07/18/21 19:00 07/29/21 01:31 Chloride IV 3 mg/hr TITR NICOLE 3 mls/hr Administration Protocol 2 MG/HR Cefepime HCl 2 gm in 100 mls @ 200 mls/hr 07/25/21 14:00 07/29/21 06:06 Cefepime/Ns 2 Gm/100 Ml IV 08/02/21 06:29 200 mls/hr Q8H NICOLE Administration Protocol Insulin Glargine 5 units 07/27/21 22:00 07/28/21 22:17 Insulin Glargine 100 Units/Ml SUB-Q 5 units QHS NICOLE Administration Insulin Human Lispro 0 unit 07/27/21 12:00 07/28/21 18:01 Insulin Lispro 100 Unit/Ml SUB-Q 3 unit Q6HR NICOLE Administration Protocol Methylprednisolone Sodium Succinate 40 mg 07/27/21 14:00 07/29/21 06:06 Methylprednisolone Sod Succinate 40 Mg/1 Ml Inj IV 40 mg Q8HR NICOLE Administration Midazolam HCl 2 mg 07/18/21 18:11 07/22/21 07:56 Midazolam 2 Mg/2 Ml Inj IV 2 mg Q10MIN PRN Administration Sedation Multi-Ingred Cream/Lotion/Oil/Oint 1 applic 07/18/21 14:41 Mineral Oil/Petrolatum, White Ophth Oint 3.5 Gm OU Q4HR PRN Dry Eye(s) Ondansetron HCl 4 mg 07/18/21 22:49 Ondansetron 4 Mg/2 Ml Inj IV Q8H PRN Nausea And Vomiting Senna/Docusate Sodium 1 tab 07/18/21 22:00 07/28/21 09:41 Sennosides/Docusate Sodium 8.6/50 Mg Tab FEEDTUBE 1 tab BID NICOLE Administration Simple Syrup 15 ml 07/18/21 22:56 Simple Syrup 15 Ml FEEDTUBE PRN PRN Hypoglycemia Simple Syrup 30 ml 07/18/21 22:56 Simple Syrup 15 Ml FEEDTUBE PRN PRN Hypoglycemia Sodium Bicarbonate 325 mg 07/18/21 22:56 Sodium Bicarbonate 325 Mg Tab FEEDTUBE PRN PRN For Clogged Feeding Tube Sodium Chloride 10 ml 07/19/21 10:00 07/28/21 22:08 Sodium Chloride 0.9% 10 Ml Flush Syringe IV 10 ml BID NICOLE Administration Sodium Chloride 10 ml 07/18/21 22:49 Sodium Chloride 0.9% 10 Ml Flush Syringe IV PRN PRN LINE FLUSH Sodium Chloride 5 ml 07/20/21 14:38 Sodium Chloride 0.9% 1000 Ml Iv Soln IV PRN PRN ART-LINE Nutrition/Malnutrition Assess - Dietary Evaluation Nutrition/Malnutrition Findings: Nutrition Notes Start: 07/19/21 09:15 Freq: Status: Active Protocol: Document 07/26/21 10:11 CW (Rec: 07/26/21 10:21 CW [id number]) Nutrition Notes Initial or Follow up Reassessment Current Diagnosis Acute Kidney Injury,Diabetes, Hypertension,Respiratory Failure Other Pertinent Diagnosis COVID Current Diet Vital HP at 55 ml/hr Labs/Tests K 5.4 BUN 33 BG 155 Pertinent Medications Senokot Humalog Solumedrol Kionex Height 5 ft 6 in Weight 104.8 kg [place] Body Weight (kg) 59.09 BMI 37.3 Weight Status Obese Subjective/Other Information Pt remains on mechancial vent. TF continues to run at goal. No reports of TF intolerance. Percent of energy/protein needs met: 93%/98% Burn Absent Trauma Absent Difficulty In Swallowing Current % PO Negligible Minimum of two criteria No physical signs of malnutrition #1 Nutrition Diagnosis Inadequate oral intake Diagnosis Progress(for reassessment Continues documentation) Is patient on ventilator? Yes Is Patient Ambulatory and/or Out of Bed No REE-([facility]-confined to bed) 2000.624 Kcal/Kg value to use for calculation 14 Approximate Energy Requirements Using 1467 kcal/Kg Calculation Used for Recommendations Kcal/kg Additional Notes Protein: (>2g/kg IBW) >118g Fluid: 1 ml/kcal or per MD Nutrition Intervention Change Diet Order: Continue Vital HP Nutrition Support: Vital HP at 55 ml/hr Flush 50 ml q4h Kcal 1,320 Protein (gm) 116 Fluid (mL) 1,104 Goal #1 Meet at least 75% of protein and kcal needs via TF Anticipated Discharge Needs: Unable to determine at this time Follow-Up By: 07/29/21 Additional Comments F/u: TF tolerance
--- NOTE | 2021-07-28 20:25 | XRay Report ---
CHEST 1 VIEW INDICATION / CLINICAL INFORMATION: OETT placement STUDY TIME: 1999 COMPARISON: 1451 FINDINGS: SUPPORT DEVICES: The endotracheal tube is of low density making evaluation difficult on this image. T he tip is somewhat difficult to visualize but I believe lies in satisfactory position approximately 3 cm above the mirian. Nasogastric tube is again seen extending below the diaphragm well into the stom ach. HEART / MEDIASTINUM: Stable LUNGS / PLEURA: Bibasilar infiltrates appear mildly improved. No pneumothorax. ADDITIONAL FINDINGS: No significant additional findings. Signer Name: Naldo Vyas MD Signed: 07/28/2021 8:21 PM Workstation Name: [id number]
[2021-07-28] MEDS ORDERED: SODIUM CHLORIDE 0.9% 500 ML 500 ML IV ONE (22:05)
[2021-07-28] MEDS: INSULIN GLARGINE 100 UNITS/ML SUB-Q SCH (22:17)
[2021-07-29] MEDS: fentaNYL DRIP Premix 2,000 MCG/100 ML BAG IV SCH ×5 (00:49→23:35)
[2021-07-29] MEDS: MIDAZOLAM 100 MG in SODIUM CHLORIDE 0.9% 80 ML IV SCH (01:31)
[2021-07-29 05:01] LABS: Hematocrit 34.1 % (30.3-42.9); Hemoglobin 11.3 gm/dl (10.1-14.3); Mean Corpuscular HGB Conc 33 % (30-34); Mean Corpuscular Volume 87 fl (79-97); Platelet Count 201 K/mm3 (140-440); Red Blood Count 3.94 M/mm3 (3.65-5.03); Red Cell Distribution Width 14.7 % (13.2-15.2)
[2021-07-29 05:27] LABS: Blood Urea Nitrogen 34 mg/dL (7-17); Hemolysis Index 3
[2021-07-29 05:30] LABS: BUN/Creatinine Ratio 57
[2021-07-29] MEDS: CEFEPIME/NS 2 GM/100 ML 2 GM/100 ML BAG IV SCH ×3 (06:06→22:35)
[2021-07-29] MEDS: FREE WATER PO SCH ×5 (06:06→22:11)
[2021-07-29] MEDS: methylPREDNISolone Sod Succinate 40 MG/1 ML INJ IV SCH ×3 (06:06→22:30)
--- NOTE | 2021-07-29 06:20 | XRay Report ---
CHEST 1 VIEW INDICATION: hypoxia. COMPARISON: One day prior. FINDINGS: Support devices: Unchanged. Heart: Stable. Lungs/Pleura: Lung volumes are decreased on today's exam, this may account at least in part for appar ent worsening of right lung opacities. No pneumothorax is seen. IMPRESSION: 1. Low lung volumes on today's exam which may account for apparent worsening of right lung opacities. Signer Name: Shan Seth MD Signed: 07/29/2021 6:16 AM Workstation Name: [id number]
[2021-07-29] MEDS: INSULIN LISPRO 100 UNIT/ML SUB-Q SCH ×4 (08:00→17:22)
[2021-07-29] MEDS: hydrALAZINE 10 MG TAB PO SCH ×3 (09:54→22:09)
[2021-07-29] MEDS: ENOXAPARIN 100 MG/1 ML INJ SUB-Q SCH ×2 (09:54→22:30)
[2021-07-29] MEDS: SENNOSIDES/DOCUSATE SODIUM 8.6/50 MG TAB FEEDTUBE SCH ×2 (09:55→22:00)
[2021-07-29] MEDS: FAMOTIDINE 20 MG/2 ML INJ IV SCH ×2 (09:55→22:29)
--- NOTE | 2021-07-29 11:42 | Progress Note ---
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 Avoid AV jaylene blocking agents. Continue optimal anticoagulation therapy. Otherwise, conservative cardiac management. Subjective Date of service: 07/29/21 Principal diagnosis: COVID pneumonia Interval history: Remains intubated on the vent. Currently, she is sinus rhythm, rate 61 on telemetry. Objective Vital Signs Temp Pulse Pulse Resp BP Pulse Ox 07/29/21 09:54 70 166/76 07/29/21 09:24 66 155/72 99 07/29/21 08:15 29 H 174/83 99 07/29/21 08:01 68 26 H 174/83 97 07/29/21 07:45 63 26 H 146/73 99 07/29/21 07:31 61 26 H 146/73 100 07/29/21 07:15 56 L 26 H 146/73 99 07/29/21 07:01 58 L 26 H 146/73 98 07/29/21 07:00 99.2 F 07/29/21 06:45 59 L 26 H 143/73 100 07/29/21 06:31 53 L 26 H 143/73 100 07/29/21 06:15 55 L 26 H 143/73 100 07/29/21 06:00 52 L 26 H 143/73 95 07/29/21 05:45 60 26 H 130/70 99 07/29/21 05:31 57 L 26 H 130/70 99 07/29/21 05:15 104 H 24 130/70 99 07/29/21 05:00 53 L 26 H 130/70 96 07/29/21 04:45 51 L 26 H 143/80 99 07/29/21 04:44 54 L 143/80 99 07/29/21 04:31 51 L 26 H 143/80 99 07/29/21 04:15 53 L 26 H 143/80 99 07/29/21 04:00 99.4 F 52 L 52 L 26 H 143/80 97 07/29/21 03:45 53 L 26 H 154/81 99 07/29/21 03:31 55 L 26 H 154/81 99 07/29/21 03:15 58 L 26 H 154/81 99 07/29/21 03:00 53 L 26 H 154/81 96 07/29/21 02:45 53 L 26 H 135/74 99 07/29/21 02:31 56 L 26 H 135/74 99 07/29/21 02:15 54 L 26 H 135/74 99 07/29/21 02:00 57 L 26 H 135/74 95 07/29/21 01:45 52 L 26 H 142/86 98 07/29/21 01:31 53 L 26 H 142/86 98 07/29/21 01:15 60 26 H 142/86 98 07/29/21 01:00 56 L 26 H 142/86 96 07/29/21 00:45 57 L 26 H 147/78 99 07/29/21 00:31 59 L 26 H 147/78 99 07/29/21 00:20 59 L 147/78 99 07/29/21 00:15 58 L 26 H 147/78 99 07/29/21 00:00 55 L 57 L 26 H 147/78 98 07/28/21 23:45 57 L 26 H 151/82 100 07/28/21 23:42 98.9 F 07/28/21 23:31 48 L 26 H 164/90 100 07/28/21 23:15 47 L 26 H 164/90 100 07/28/21 23:00 52 L 26 H 164/90 100 07/28/21 22:45 49 L 26 H 105/58 100 07/28/21 22:31 46 L 26 H 105/58 100 07/28/21 22:15 44 L 26 H 105/58 99 07/28/21 22:00 42 L 26 H 105/58 98 07/28/21 21:45 42 L 26 H 108/60 100 07/28/21 21:31 43 L 26 H 108/60 100 07/28/21 21:15 45 L 26 H 108/60 100 07/28/21 21:01 46 L 26 H 108/60 97 07/28/21 20:45 51 L 26 H 142/78 99 07/28/21 20:31 59 L 25 H 142/78 99 07/28/21 20:27 51 L 142/78 99 07/28/21 20:15 52 L 26 H 142/78 100 07/28/21 20:00 99.3 F 73 54 L 26 H 142/78 97 07/28/21 19:45 55 L 26 H 133/68 99 07/28/21 19:31 51 L 26 H 133/68 99 07/28/21 19:15 55 L 26 H 133/68 99 07/28/21 19:00 52 L 26 H 133/68 97 07/28/21 18:45 54 L 26 H 144/72 100 07/28/21 18:43 64 26 H 144/72 98 07/28/21 18:31 61 26 H 144/72 98 07/28/21 18:15 74 26 H 144/72 98 07/28/21 18:00 98.3 F 50 L 26 H 144/72 96 07/28/21 17:45 52 L 26 H 139/67 98 07/28/21 17:31 48 L 26 H 139/67 98 07/28/21 17:15 48 L 26 H 139/67 98 07/28/21 17:07 48 L 139/67 98 07/28/21 17:00 60 26 H 139/67 97 07/28/21 16:45 51 L 26 H 123/75 99 07/28/21 16:31 52 L 26 H 123/75 99 07/28/21 16:15 51 L 26 H 123/75 99 07/28/21 16:00 54 L 26 H 123/75 99 07/28/21 15:45 51 L 26 H 134/69 99 07/28/21 15:31 49 L 26 H 134/69 99 07/28/21 15:15 47 L 26 H 134/69 98 07/28/21 15:00 53 L 26 H 134/69 97 07/28/21 14:50 98.3 F 07/28/21 14:45 47 L 26 H 130/65 98 07/28/21 14:31 51 L 26 H 130/65 100 07/28/21 14:15 45 L 26 H 130/65 98 07/28/21 14:00 52 L 26 H 130/65 98 07/28/21 13:45 45 L 26 H 134/73 98 07/28/21 13:31 44 L 26 H 134/73 100 07/28/21 13:15 44 L 26 H 134/73 100 07/28/21 13:01 45 L 26 H 134/73 100 07/28/21 12:45 42 L 26 H 100/54 100 07/28/21 12:36 40 L 100/54 100 07/28/21 12:31 39 L 26 H 100/54 100 07/28/21 12:29 98.3 F 07/28/21 12:15 40 L 26 H 100/54 100 07/28/21 12:00 39 L 26 H 100/54 97 07/28/21 11:45 41 L 26 H 104/59 99 - Physical Examination Narrative exam: Deferred due to isolation protocol. General: Other (intubated on the vent) Cardiac: Positive: Reg Rate and Rhythm - Labs and Meds CBC 07/29/21 Range/Units 04:35 WBC 12.0 H (4.5-11.0) K/mm3 RBC 3.94 (3.65-5.03) M/mm3 Hgb 11.3 (10.1-14.3) gm/dl Hct 34.1 (30.3-42.9) % Plt Count 201 (140-440) K/mm3 Comprehensive Metabolic Panel 07/29/21 Range/Units 04:35 Sodium 138 (137-145) mmol/L Potassium 4.8 (3.6-5.0) mmol/L Chloride 99.6 (98-107) mmol/L Carbon Dioxide 30 (22-30) mmol/L BUN 34 H (7-17) mg/dL Creatinine 0.6 (0.6-1.2) mg/dL Glucose 170 H (65-100) mg/dL Calcium 9.0 (8.4-10.2) mg/dL
--- NOTE | 2021-07-29 13:29 | Progress Note ---
Assessment and Plan 55 y/o obese female with acute respiratory failure, pulmonary embolism, now with renal failure, most likely all secondary to COVID 19 07/29/21: Wean FiO2 as tolerated. PaO2 is good. Continue current dose of steroids. Changed Hydralazine. Continue anticoagulation. May be able to start weaning PEEP tomorrow. 07/28/21: Repeat CXR today to check ET tube. Wean steroids when able. Continue to wean FiO2 as tolerated. Do not move PEEP until FiO2 is at 45-50%. Guarded prognosis remains. Will call family now. 07/27/21: Ok with advancing ET tube 2-3 cm. Continue to wean FiO2 as tolerated. Repeat CXR post advancement of ET tube. Dropped steroids too 40q8 07/26/21: Back down to 65% like on 07/22 but PEEP is at 12. Will monitor closely. COntinue current level of sedation and high dose steroids. Prognosis is very very guarded. 07/23/21: Dropped FiO2 to 70. Hopeful to wean back down. Keep peep elevated until FiO2 at 50-55%. Continue High dose steroids. Keep RASS at -4. Na is better. Will stop D5W. Updated Daughter (Linda) and God[employer]aughter over the phone. If someone could please call them at least one day over the weekend I will call them again on Monday. Prognosis remains very guarded. Explained to them the high mortality rate associated with COVID and mechanical ventilation. 07/22/21: Dropped Fio2 to 65. Continue to wean for sats >88%. keep elevated peep until FiO2 around 50-55% so hopefully in the next 24-36 hours we can get there. Continue sedation to keep rass at -4. Continue high dose steroids. W ill continue D5W for now until Free water can control sodium. need CBC in the am along with BMP. Prognosis still remains guarded. Continue lovenox 07/21/21: Dropped FiO2 to 80%. Continue to wean for sats >88%. Keep peep elevated until FiO2 around 50-55%. Continue remdesivir and adequate levels of sedation. Continue high dose steroids. No proning for now. Continue therapeutic lovenox. Prognosis remains guarded. 07/20/21: COVID positive. Started Remdesivir. Renal function improved. CO ntinue high dose steroids at current dosing for now. Suggest repeat ABG later this afternoon if able, may need art line but BP stable for now. No proning. Agree with therapeutic Lovenox. Guarded prognosis. 1. Follow up COVID testing, continue isolation 2. Agree with high dose IV steroids, if positive, will change to solumedrol 125q8 3. If positive then would need remdesivir and Actemra, hopefully still a candidate given bump in renal function 4. Unable to prone patient at moment, but did increase PEEP to 20 and ordered repeat ABG at 1400 5 Very very guarded prognosis CCT 31 minutes. Subjective Date of service: 07/29/21 Principal diagnosis: COVID pneumonia Interval history: Had some hypotension last night. Bolused with fluid. Hydralazine adjusted. Objective Vital Signs - 12hr 07/29/21 07/29/21 07/29/21 01:31 01:45 02:00 Temperature Pulse Rate 53 L 52 L 57 L Pulse Rate [ From Monitor] Respiratory 26 H 26 H 26 H Rate Blood Pressure 142/86 142/86 135/74 O2 Sat by Pulse 98 98 95 Oximetry 07/29/21 07/29/21 07/29/21 02:15 02:31 02:45 Temperature Pulse Rate 54 L 56 L 53 L Pulse Rate [ From Monitor] Respiratory 26 H 26 H 26 H Rate Blood Pressure 135/74 135/74 135/74 O2 Sat by Pulse 99 99 99 Oximetry 07/29/21 07/29/21 07/29/21 03:00 03:15 03:31 Temperature Pulse Rate 53 L 58 L 55 L Pulse Rate [ From Monitor] Respiratory 26 H 26 H 26 H Rate Blood Pressure 154/81 154/81 154/81 O2 Sat by Pulse 96 99 99 Oximetry 07/29/21 07/29/21 07/29/21 03:45 04:00 04:15 Temperature 99.4 F Pulse Rate 53 L 52 L 53 L Pulse Rate [ 52 L From Monitor] Respiratory 26 H 26 H 26 H Rate Blood Pressure 154/81 143/80 143/80 O2 Sat by Pulse 99 97 99 Oximetry 07/29/21 07/29/21 07/29/21 04:31 04:44 04:45 Temperature Pulse Rate 51 L 54 L 51 L Pulse Rate [ From Monitor] Respiratory 26 H 26 H Rate Blood Pressure 143/80 143/80 143/80 O2 Sat by Pulse 99 99 99 Oximetry 07/29/21 07/29/21 07/29/21 05:00 05:15 05:31 Temperature Pulse Rate 53 L 104 H 57 L Pulse Rate [ From Monitor] Respiratory 26 H 24 26 H Rate Blood Pressure 130/70 130/70 130/70 O2 Sat by Pulse 96 99 99 Oximetry 07/29/21 07/29/21 07/29/21 05:45 06:00 06:15 Temperature Pulse Rate 60 52 L 55 L Pulse Rate [ From Monitor] Respiratory 26 H 26 H 26 H Rate Blood Pressure 130/70 143/73 143/73 O2 Sat by Pulse 99 95 100 Oximetry 07/29/21 07/29/21 07/29/21 06:31 06:45 07:00 Temperature 99.2 F Pulse Rate 53 L 59 L Pulse Rate [ From Monitor] Respiratory 26 H 26 H Rate Blood Pressure 143/73 143/73 O2 Sat by Pulse 100 100 Oximetry 07/29/21 07/29/21 07/29/21 07:01 07:15 07:31 Temperature Pulse Rate 58 L 56 L 61 Pulse Rate [ From Monitor] Respiratory 26 H 26 H 26 H Rate Blood Pressure 146/73 146/73 146/73 O2 Sat by Pulse 98 99 100 Oximetry 07/29/21 07/29/21 07/29/21 07:45 08:01 08:15 Temperature Pulse Rate 63 68 Pulse Rate [ From Monitor] Respiratory 26 H 26 H 29 H Rate Blood Pressure 146/73 174/83 174/83 O2 Sat by Pulse 99 97 99 Oximetry 07/29/21 07/29/21 07/29/21 09:24 09:54 11:42 Temperature 100.2 F H Pulse Rate 66 70 Pulse Rate [ From Monitor] Respiratory Rate Blood Pressure 155/72 166/76 O2 Sat by Pulse 99 Oximetry 07/29/21 12:35 Temperature Pulse Rate 54 L Pulse Rate [ From Monitor] Respiratory Rate Blood Pressure 126/62 O2 Sat by Pulse 99 Oximetry Constitutional: no acute distress, comatose ENT: other (orally intubated and sedated) Ascultation: Bilateral: diminished breath sounds Cardiovascular: regular rate and rhythm Gastrointestinal: normoactive bowel sounds, soft, non-tender Integumentary: normal Extremities: no cyanosis Neurologic: other (Sedated) CBC and BMP: 07/29/21 04:35 07/29/21 04:35 ABG, PT/INR, D-dimer: ABG ABG pH 7.510 (7.320-7.450) H 07/29/21 04:00 POC ABG pCO2 38.1 mmHg (32.0-48.0) 07/29/21 04:00 ABG pCO2 35.2 mm Hg 07/19/21 Unknown POC ABG pO2 113.0 mmHg (83-108) H 07/29/21 04:00 ABG pO2 64.2 mm Hg (80.0-90.0) L 07/19/21 Unknown POC ABG HCO3 29.7 07/29/21 04:00 ABG O2 Saturation 98.0 (0-100) 07/29/21 04:00 PT/INR, D-dimer PT 15.1 Sec. (12.2-14.9) H 07/18/21 16:00 INR 1.13 (0.87-1.13) 07/18/21 16:00 D-Dimer 5318.85 ng/mlDDU (0-234) H 07/28/21 04:10 Abnormal lab findings: Abnormal Labs 07/18/21 07/18/21 07/18/21 16:00 16:00 16:00 WBC RBC Hgb Hct RDW 15.3 H Lymph % (Auto) 7.9 L Lymph # (Auto) 0.8 L Seg Neutrophils % 86.3 H Seg Neuts % (Manual) Lymphocytes % (Manual) Nucleated RBC % Seg Neutrophils # 9.0 H Seg Neutrophils # Man Lymphocytes # (Manual) Monocytes # (Manual) PT 15.1 H D-Dimer > 65196 H ABG pH POC ABG pCO2 POC ABG pO2 ABG pO2 ABG O2 Saturation ABG Base Excess ABG Hemoglobin ABG Oxyhemoglobin ABG Sodium ABG Chloride ABG Glucose Oxyhemoglobin Carboxyhemoglobin Sodium Potassium 3.5 L Chloride Carbon Dioxide 20 L BUN 19 H Creatinine Glucose 140 H POC Glucose Calcium Magnesium Ferritin AST 43 H Lactate Dehydrogenase 705 H Total Creatine Kinase 157 H Troponin T 0.106 H* C-Reactive Protein 33.00 H Total Protein Albumin 3.2 L Triglycerides 156 H HDL Cholesterol 33 L Arterial Blood Glucose Arterial Blood Ionized Calcium Urine WBC (Auto) Vancomycin Trough Salicylates Acetaminophen Coronavirus (PCR) 07/18/21 07/18/21 07/18/21 16:00 16:00 16:00 WBC RBC Hgb Hct RDW Lymph % (Auto) Lymph # (Auto) Seg Neutrophils % Seg Neuts % (Manual) Lymphocytes % (Manual) Nucleated RBC % Seg Neutrophils # Seg Neutrophils # Man Lymphocytes # (Manual) Monocytes # (Manual) PT D-Dimer ABG pH POC ABG pCO2 POC ABG pO2 ABG pO2 ABG O2 Saturation ABG Base Excess ABG Hemoglobin ABG Oxyhemoglobin ABG Sodium ABG Chloride ABG Glucose Oxyhemoglobin Carboxyhemoglobin Sodium Potassium Chloride Carbon Dioxide BUN Creatinine Glucose POC Glucose Calcium Magnesium Ferritin 657.0 H AST Lactate Dehydrogenase Total Creatine Kinase Troponin T C-Reactive Protein Total Protein Albumin Triglycerides HDL Cholesterol Arterial Blood Glucose Arterial Blood Ionized Calcium Urine WBC (Auto) Vancomycin Trough Salicylates < 0.3 L Acetaminophen 5.7 L Coronavirus (PCR) 07/18/21 07/18/21 07/19/21 Unknown Unknown 04:33 WBC RBC Hgb Hct RDW Lymph % (Auto) Lymph # (Auto) Seg Neutrophils % Seg Neuts % (Manual) Lymphocytes % (Manual) Nucleated RBC % Seg Neutrophils # Seg Neutrophils # Man Lymphocytes # (Manual) Monocytes # (Manual) PT D-Dimer ABG pH 7.275 L POC ABG pCO2 POC ABG pO2 68.7 L 53.1 L ABG pO2 ABG O2 Saturation ABG Base Excess ABG Hemoglobin ABG Oxyhemoglobin 88.3 L 85.3 L ABG Sodium ABG Chloride 109.0 H ABG Glucose 170 H 150 H Oxyhemoglobin Carboxyhemoglobin 0 L 0.3 L Sodium Potassium Chloride Carbon Dioxide BUN Creatinine Glucose POC Glucose Calcium Magnesium Ferritin AST Lactate Dehydrogenase Total Creatine Kinase Troponin T C-Reactive Protein Total Protein Albumin Triglycerides HDL Cholesterol Arterial Blood Glucose 170 H 150 H Arterial Blood Ionized Calcium Urine WBC (Auto) 9.0 H Vancomycin Trough Salicylates Acetaminophen Coronavirus (PCR) 07/19/21 07/19/21 07/19/21 04:59 04:59 Unknown WBC RBC Hgb Hct RDW 16.0 H Lymph % (Auto) 10.7 L Lymph # (Auto) 1.1 L Seg Neutrophils % 84.3 H Seg Neuts % (Manual) Lymphocytes % (Manual) Nucleated RBC % Seg Neutrophils # 8.7 H Seg Neutrophils # Man Lymphocytes # (Manual) Monocytes # (Manual) PT D-Dimer ABG pH POC ABG pCO2 POC ABG pO2 ABG pO2 ABG O2 Saturation ABG Base Excess ABG Hemoglobin ABG Oxyhemoglobin ABG Sodium ABG Chloride ABG Glucose Oxyhemoglobin Carboxyhemoglobin Sodium Potassium Chloride 108.8 H Carbon Dioxide 21 L BUN 28 H Creatinine 1.8 H Glucose 145 H POC Glucose Calcium 7.8 L Magnesium Ferritin AST Lactate Dehydrogenase Total Creatine Kinase Troponin T C-Reactive Protein Total Protein 6.2 L Albumin 3.2 L Triglycerides HDL Cholesterol Arterial Blood Glucose Arterial Blood Ionized Calcium Urine WBC (Auto) Vancomycin Trough Salicylates Acetaminophen Coronavirus (PCR) Positive A 07/19/21 07/20/21 07/20/21 Unknown 00:14 04:44 WBC RBC Hgb Hct RDW Lymph % (Auto) Lymph # (Auto) Seg Neutrophils % Seg Neuts % (Manual) Lymphocytes % (Manual) Nucleated RBC % Seg Neutrophils # Seg Neutrophils # Man Lymphocytes # (Manual) Monocytes # (Manual) PT D-Dimer ABG pH POC ABG pCO2 POC ABG pO2 ABG pO2 64.2 L ABG O2 Saturation 93.2 L ABG Base Excess -4.5 L ABG Hemoglobin 11.0 L ABG Oxyhemoglobin ABG Sodium ABG Chloride ABG Glucose Oxyhemoglobin 91.9 L Carboxyhemoglobin Sodium Potassium Chloride 112.2 H Carbon Dioxide BUN 38 H Creatinine 1.3 H Glucose 156 H POC Glucose 164 H Calcium 8.1 L Magnesium 3.10 H Ferritin AST Lactate Dehydrogenase Total Creatine Kinase Troponin T C-Reactive Protein Total Protein Albumin 2.8 L Triglycerides HDL Cholesterol Arterial Blood Glucose Arterial Blood Ionized Calcium Urine WBC (Auto) Vancomycin Trough Salicylates Acetaminophen Coronavirus (PCR) 07/20/21 07/20/21 07/20/21 04:44 05:00 05:40 WBC RBC 3.42 L Hgb 9.7 L Hct 29.3 L RDW 16.1 H Lymph % (Auto) Lymph # (Auto) Seg Neutrophils % Seg Neuts % (Manual) Lymphocytes % (Manual) Nucleated RBC % Seg Neutrophils # Seg Neutrophils # Man Lymphocytes # (Manual) Monocytes # (Manual) PT D-Dimer ABG pH POC ABG pCO2 POC ABG pO2 139.0 H ABG pO2 ABG O2 Saturation ABG Base Excess ABG Hemoglobin 10.1 L ABG Oxyhemoglobin ABG Sodium ABG Chloride 113.0 H ABG Glucose 155 H Oxyhemoglobin Carboxyhemoglobin 0.3 L Sodium Potassium Chloride Carbon Dioxide BUN Creatinine Glucose POC Glucose 164 H Calcium Magnesium Ferritin AST Lactate Dehydrogenase Total Creatine Kinase Troponin T C-Reactive Protein Total Protein Albumin Triglycerides HDL Cholesterol Arterial Blood Glucose 155 H Arterial Blood Ionized Calcium 4.4 L Urine WBC (Auto) Vancomycin Trough Salicylates Acetaminophen Coronavirus (PCR) 07/20/21 07/20/21 07/21/21 11:40 17:48 03:31 WBC RBC Hgb Hct RDW Lymph % (Auto) Lymph # (Auto) Seg Neutrophils % Seg Neuts % (Manual) Lymphocytes % (Manual) Nucleated RBC % Seg Neutrophils # Seg Neutrophils # Man Lymphocytes # (Manual) Monocytes # (Manual) PT D-Dimer ABG pH POC ABG pCO2 POC ABG pO2 ABG pO2 ABG O2 Saturation ABG Base Excess ABG Hemoglobin ABG Oxyhemoglobin ABG Sodium ABG Chloride ABG Glucose Oxyhemoglobin Carboxyhemoglobin Sodium Potassium Chloride Carbon Dioxide BUN Creatinine Glucose POC Glucose 137 H 143 H 157 H Calcium Magnesium Ferritin AST Lactate Dehydrogenase Total Creatine Kinase Troponin T C-Reactive Protein Total Protein Albumin Triglycerides HDL Cholesterol Arterial Blood Glucose Arterial Blood Ionized Calcium Urine WBC (Auto) Vancomycin Trough Salicylates Acetaminophen Coronavirus (PCR) 07/21/21 07/21/21 07/21/21 04:30 04:52 05:21 WBC RBC Hgb Hct RDW Lymph % (Auto) Lymph # (Auto) Seg Neutrophils % Seg Neuts % (Manual) Lymphocytes % (Manual) Nucleated RBC % Seg Neutrophils # Seg Neutrophils # Man Lymphocytes # (Manual) Monocytes # (Manual) PT D-Dimer ABG pH POC ABG pCO2 31.7 L POC ABG pO2 77.6 L ABG pO2 ABG O2 Saturation ABG Base Excess ABG Hemoglobin 10.2 L ABG Oxyhemoglobin ABG Sodium 148.3 H ABG Chloride 120.0 H ABG Glucose 168 H Oxyhemoglobin Carboxyhemoglobin 0.2 L Sodium 150 H Potassium Chloride 115.7 H Carbon Dioxide BUN 49 H Creatinine 1.4 H Glucose 185 H POC Glucose 170 H Calcium 8.3 L Magnesium Ferritin AST Lactate Dehydrogenase Total Creatine Kinase Troponin T C-Reactive Protein Total Protein Albumin 3.0 L Triglycerides HDL Cholesterol Arterial Blood Glucose 168 H Arterial Blood Ionized Calcium 4.4 L Urine WBC (Auto) Vancomycin Trough Salicylates Acetaminophen Coronavirus (PCR) 07/21/21 07/21/21 07/21/21 11:17 17:26 23:40 WBC RBC Hgb Hct RDW Lymph % (Auto) Lymph # (Auto) Seg Neutrophils % Seg Neuts % (Manual) Lymphocytes % (Manual) Nucleated RBC % Seg Neutrophils # Seg Neutrophils # Man Lymphocytes # (Manual) Monocytes # (Manual) PT D-Dimer ABG pH POC ABG pCO2 POC ABG pO2 ABG pO2 ABG O2 Saturation ABG Base Excess ABG Hemoglobin ABG Oxyhemoglobin ABG Sodium ABG Chloride ABG Glucose Oxyhemoglobin Carboxyhemoglobin Sodium Potassium Chloride Carbon Dioxide BUN Creatinine Glucose POC Glucose 176 H 184 H 161 H Calcium Magnesium Ferritin AST Lactate Dehydrogenase Total Creatine Kinase Troponin T C-Reactive Protein Total Protein Albumin Triglycerides HDL Cholesterol Arterial Blood Glucose Arterial Blood Ionized Calcium Urine WBC (Auto) Vancomycin Trough Salicylates Acetaminophen Coronavirus (PCR) 07/22/21 07/22/21 07/22/21 03:30 04:39 05:29 WBC RBC Hgb Hct RDW Lymph % (Auto) Lymph # (Auto) Seg Neutrophils % Seg Neuts % (Manual) Lymphocytes % (Manual) Nucleated RBC % Seg Neutrophils # Seg Neutrophils # Man Lymphocytes # (Manual) Monocytes # (Manual) PT D-Dimer ABG pH POC ABG pCO2 POC ABG pO2 67.4 L ABG pO2 ABG O2 Saturation ABG Base Excess ABG Hemoglobin 10.4 L ABG Oxyhemoglobin 91.8 L ABG Sodium 118.4 L ABG Chloride 114.0 H ABG Glucose 189 H Oxyhemoglobin Carboxyhemoglobin 0.2 L Sodium 146 H Potassium Chloride 112.8 H Carbon Dioxide 21 L BUN 46 H Creatinine Glucose 191 H POC Glucose 191 H Calcium Magnesium Ferritin AST Lactate Dehydrogenase Total Creatine Kinase Troponin T C-Reactive Protein Total Protein Albumin 2.9 L Triglycerides HDL Cholesterol Arterial Blood Glucose 189 H Arterial Blood Ionized Calcium 4.5 L Urine WBC (Auto) Vancomycin Trough Salicylates Acetaminophen Coronavirus (PCR) 07/22/21 07/22/21 07/22/21 12:17 17:54 23:34 WBC RBC Hgb Hct RDW Lymph % (Auto) Lymph # (Auto) Seg Neutrophils % Seg Neuts % (Manual) Lymphocytes % (Manual) Nucleated RBC % Seg Neutrophils # Seg Neutrophils # Man Lymphocytes # (Manual) Monocytes # (Manual) PT D-Dimer ABG pH POC ABG pCO2 POC ABG pO2 ABG pO2 ABG O2 Saturation ABG Base Excess ABG Hemoglobin ABG Oxyhemoglobin ABG Sodium ABG Chloride ABG Glucose Oxyhemoglobin Carboxyhemoglobin Sodium Potassium Chloride Carbon Dioxide BUN Creatinine Glucose POC Glucose 206 H 213 H 164 H Calcium Magnesium Ferritin AST Lactate Dehydrogenase Total Creatine Kinase Troponin T C-Reactive Protein Total Protein Albumin Triglycerides HDL Cholesterol Arterial Blood Glucose Arterial Blood Ionized Calcium Urine WBC (Auto) Vancomycin Trough Salicylates Acetaminophen Coronavirus (PCR) 07/23/21 07/23/21 07/23/21 03:30 05:21 09:02 WBC RBC Hgb Hct RDW Lymph % (Auto) Lymph # (Auto) Seg Neutrophils % Seg Neuts % (Manual) Lymphocytes % (Manual) Nucleated RBC % Seg Neutrophils # Seg Neutrophils # Man Lymphocytes # (Manual) Monocytes # (Manual) PT D-Dimer ABG pH POC ABG pCO2 POC ABG pO2 70.9 L ABG pO2 ABG O2 Saturation ABG Base Excess ABG Hemoglobin 10.9 L ABG Oxyhemoglobin 92.9 L ABG Sodium 130.2 L ABG Chloride 109.0 H ABG Glucose 177 H Oxyhemoglobin Carboxyhemoglobin 0.1 L Sodium Potassium 5.1 H Chloride Carbon Dioxide BUN 32 H Creatinine Glucose 200 H POC Glucose 191 H Calcium Magnesium Ferritin AST Lactate Dehydrogenase Total Creatine Kinase Troponin T C-Reactive Protein Total Protein Albumin Triglycerides HDL Cholesterol Arterial Blood Glucose 177 H Arterial Blood Ionized Calcium 4.3 L Urine WBC (Auto) Vancomycin Trough Salicylates Acetaminophen Coronavirus (PCR) 07/23/21 07/23/21 07/23/21 09:02 11:34 17:52 WBC 13.8 H RBC Hgb Hct RDW 15.7 H Lymph % (Auto) Lymph # (Auto) Seg Neutrophils % Seg Neuts % (Manual) Lymphocytes % (Manual) Nucleated RBC % Seg Neutrophils # Seg Neutrophils # Man Lymphocytes # (Manual) Monocytes # (Manual) PT D-Dimer ABG pH POC ABG pCO2 POC ABG pO2 ABG pO2 ABG O2 Saturation ABG Base Excess ABG Hemoglobin ABG Oxyhemoglobin ABG Sodium ABG Chloride ABG Glucose Oxyhemoglobin Carboxyhemoglobin Sodium Potassium Chloride Carbon Dioxide BUN Creatinine Glucose POC Glucose 208 H 158 H Calcium Magnesium Ferritin AST Lactate Dehydrogenase Total Creatine Kinase Troponin T C-Reactive Protein Total Protein Albumin Triglycerides HDL Cholesterol Arterial Blood Glucose Arterial Blood Ionized Calcium Urine WBC (Auto) Vancomycin Trough Salicylates Acetaminophen Coronavirus (PCR) 0907/24/21 07/24/21 23:28 03:06 05:01 WBC RBC Hgb Hct RDW Lymph % (Auto) Lymph # (Auto) Seg Neutrophils % Seg Neuts % (Manual) Lymphocytes % (Manual) Nucleated RBC % Seg Neutrophils # Seg Neutrophils # Man Lymphocytes # (Manual) Monocytes # (Manual) PT D-Dimer ABG pH POC ABG pCO2 POC ABG pO2 51.1 L ABG pO2 ABG O2 Saturation ABG Base Excess ABG Hemoglobin ABG Oxyhemoglobin 85.0 L ABG Sodium 135.5 L ABG Chloride ABG Glucose 131 H Oxyhemoglobin Carboxyhemoglobin 0.4 L Sodium Potassium Chloride Carbon Dioxide BUN 29 H Creatinine Glucose 132 H POC Glucose 142 H Calcium 7.8 L Magnesium Ferritin AST Lactate Dehydrogenase Total Creatine Kinase Troponin T C-Reactive Protein Total Protein Albumin Triglycerides HDL Cholesterol Arterial Blood Glucose 131 H Arterial Blood Ionized Calcium 4.5 L Urine WBC (Auto) Vancomycin Trough Salicylates Acetaminophen Coronavirus (PCR) 07/24/21 07/24/21 07/24/21 05:06 11:38 17:26 WBC RBC Hgb Hct RDW Lymph % (Auto) Lymph # (Auto) Seg Neutrophils % Seg Neuts % (Manual) Lymphocytes % (Manual) Nucleated RBC % Seg Neutrophils # Seg Neutrophils # Man Lymphocytes # (Manual) Monocytes # (Manual) PT D-Dimer ABG pH POC ABG pCO2 POC ABG pO2 ABG pO2 ABG O2 Saturation ABG Base Excess ABG Hemoglobin ABG Oxyhemoglobin ABG Sodium ABG Chloride ABG Glucose Oxyhemoglobin Carboxyhemoglobin Sodium Potassium Chloride Carbon Dioxide BUN Creatinine Glucose POC Glucose 125 H 215 H 173 H Calcium Magnesium Ferritin AST Lactate Dehydrogenase Total Creatine Kinase Troponin T C-Reactive Protein Total Protein Albumin Triglycerides HDL Cholesterol Arterial Blood Glucose Arterial Blood Ionized Calcium Urine WBC (Auto) Vancomycin Trough Salicylates Acetaminophen Coronavirus (PCR) 07/24/21 07/25/21 07/25/21 23:23 03:33 04:28 WBC RBC Hgb Hct RDW Lymph % (Auto) Lymph # (Auto) Seg Neutrophils % Seg Neuts % (Manual) Lymphocytes % (Manual) Nucleated RBC % Seg Neutrophils # Seg Neutrophils # Man Lymphocytes # (Manual) Monocytes # (Manual) PT D-Dimer ABG pH POC ABG pCO2 POC ABG pO2 ABG pO2 ABG O2 Saturation ABG Base Excess ABG Hemoglobin ABG Oxyhemoglobin ABG Sodium 135.6 L ABG Chloride ABG Glucose 174 H Oxyhemoglobin Carboxyhemoglobin 0.1 L Sodium Potassium 5.1 H Chloride 107.7 H Carbon Dioxide BUN 29 H Creatinine Glucose 164 H POC Glucose 133 H Calcium 7.3 L Magnesium Ferritin AST Lactate Dehydrogenase Total Creatine Kinase Troponin T C-Reactive Protein Total Protein Albumin Triglycerides HDL Cholesterol Arterial Blood Glucose 174 H Arterial Blood Ionized Calcium Urine WBC (Auto) Vancomycin Trough Salicylates Acetaminophen Coronavirus (PCR) 07/25/21 07/25/21 07/25/21 04:28 04:28 05:17 WBC 14.9 H RBC Hgb Hct RDW 15.6 H Lymph % (Auto) Lymph # (Auto) Seg Neutrophils % Seg Neuts % (Manual) 92.0 H Lymphocytes % (Manual) 2.0 L Nucleated RBC % Seg Neutrophils # Seg Neutrophils # Man 13.7 H Lymphocytes # (Manual) 0.3 L Monocytes # (Manual) PT D-Dimer ABG pH POC ABG pCO2 POC ABG pO2 ABG pO2 ABG O2 Saturation ABG Base Excess ABG Hemoglobin ABG Oxyhemoglobin ABG Sodium ABG Chloride ABG Glucose Oxyhemoglobin Carboxyhemoglobin Sodium Potassium Chloride Carbon Dioxide BUN Creatinine Glucose POC Glucose 173 H Calcium Magnesium Ferritin AST Lactate Dehydrogenase Total Creatine Kinase Troponin T C-Reactive Protein Total Protein Albumin Triglycerides HDL Cholesterol Arterial Blood Glucose Arterial Blood Ionized Calcium Urine WBC (Auto) Vancomycin Trough 22.9 H Salicylates Acetaminophen Coronavirus (PCR) 07/25/21 07/25/21 07/25/21 11:29 17:00 23:46 WBC RBC Hgb Hct RDW Lymph % (Auto) Lymph # (Auto) Seg Neutrophils % Seg Neuts % (Manual) Lymphocytes % (Manual) Nucleated RBC % Seg Neutrophils # Seg Neutrophils # Man Lymphocytes # (Manual) Monocytes # (Manual) PT D-Dimer ABG pH POC ABG pCO2 POC ABG pO2 ABG pO2 ABG O2 Saturation ABG Base Excess ABG Hemoglobin ABG Oxyhemoglobin ABG Sodium ABG Chloride ABG Glucose Oxyhemoglobin Carboxyhemoglobin Sodium Potassium Chloride Carbon Dioxide BUN Creatinine Glucose POC Glucose 191 H 184 H 192 H Calcium Magnesium Ferritin AST Lactate Dehydrogenase Total Creatine Kinase Troponin T C-Reactive Protein Total Protein Albumin Triglycerides HDL Cholesterol Arterial Blood Glucose Arterial Blood Ionized Calcium Urine WBC (Auto) Vancomycin Trough Salicylates Acetaminophen Coronavirus (PCR) 07/26/21 07/26/21 07/26/21 03:17 05:33 06:07 WBC 18.0 H RBC Hgb Hct RDW 15.6 H Lymph % (Auto) Lymph # (Auto) Seg Neutrophils % Seg Neuts % (Manual) 87.0 H Lymphocytes % (Manual) 5.0 L Nucleated RBC % Seg Neutrophils # Seg Neutrophils # Man 15.7 H Lymphocytes # (Manual) 0.9 L Monocytes # (Manual) 1.1 H PT D-Dimer ABG pH POC ABG pCO2 POC ABG pO2 73.7 L ABG pO2 ABG O2 Saturation ABG Base Excess ABG Hemoglobin 11.8 L ABG Oxyhemoglobin 93.6 L ABG Sodium ABG Chloride ABG Glucose 183 H Oxyhemoglobin Carboxyhemoglobin 0.2 L Sodium Potassium Chloride Carbon Dioxide BUN Creatinine Glucose POC Glucose 172 H Calcium Magnesium Ferritin AST Lactate Dehydrogenase Total Creatine Kinase Troponin T C-Reactive Protein Total Protein Albumin Triglycerides HDL Cholesterol Arterial Blood Glucose 183 H Arterial Blood Ionized Calcium Urine WBC (Auto) Vancomycin Trough Salicylates Acetaminophen Coronavirus (PCR) 07/26/21 07/26/21 07/26/21 06:07 11:46 13:53 WBC RBC Hgb Hct RDW Lymph % (Auto) Lymph # (Auto) Seg Neutrophils % Seg Neuts % (Manual) Lymphocytes % (Manual) Nucleated RBC % Seg Neutrophils # Seg Neutrophils # Man Lymphocytes # (Manual) Monocytes # (Manual) PT D-Dimer 6992.45 H ABG pH POC ABG pCO2 POC ABG pO2 ABG pO2 ABG O2 Saturation ABG Base Excess ABG Hemoglobin ABG Oxyhemoglobin ABG Sodium ABG Chloride ABG Glucose Oxyhemoglobin Carboxyhemoglobin Sodium Potassium 5.4 H Chloride Carbon Dioxide BUN 33 H Creatinine Glucose 155 H POC Glucose 142 H Calcium 8.3 L Magnesium Ferritin AST Lactate Dehydrogenase Total Creatine Kinase Troponin T C-Reactive Protein Total Protein Albumin Triglycerides HDL Cholesterol Arterial Blood Glucose Arterial Blood Ionized Calcium Urine WBC (Auto) Vancomycin Trough Salicylates Acetaminophen Coronavirus (PCR) 07/26/21 07/26/21 07/26/21 13:53 14:16 17:29 WBC RBC Hgb Hct RDW Lymph % (Auto) Lymph # (Auto) Seg Neutrophils % Seg Neuts % (Manual) Lymphocytes % (Manual) Nucleated RBC % Seg Neutrophils # Seg Neutrophils # Man Lymphocytes # (Manual) Monocytes # (Manual) PT D-Dimer ABG pH POC ABG pCO2 POC ABG pO2 ABG pO2 ABG O2 Saturation ABG Base Excess ABG Hemoglobin ABG Oxyhemoglobin ABG Sodium ABG Chloride ABG Glucose Oxyhemoglobin Carboxyhemoglobin Sodium Potassium Chloride Carbon Dioxide BUN Creatinine Glucose 200 H POC Glucose 185 H Calcium Magnesium Ferritin 348.4 H AST Lactate Dehydrogenase 515 H Total Creatine Kinase Troponin T C-Reactive Protein Total Protein Albumin Triglycerides HDL Cholesterol Arterial Blood Glucose Arterial Blood Ionized Calcium Urine WBC (Auto) Vancomycin Trough Salicylates Acetaminophen Coronavirus (PCR) 07/26/21 07/27/21 07/27/21 23:30 04:00 04:48 WBC 16.5 H RBC Hgb Hct RDW Lymph % (Auto) Lymph # (Auto) Seg Neutrophils % Seg Neuts % (Manual) 92.0 H Lymphocytes % (Manual) 3.0 L Nucleated RBC % 1.0 H Seg Neutrophils # Seg Neutrophils # Man 15.2 H Lymphocytes # (Manual) 0.5 L Monocytes # (Manual) PT D-Dimer ABG pH 7.481 H POC ABG pCO2 POC ABG pO2 70.4 L ABG pO2 ABG O2 Saturation ABG Base Excess ABG Hemoglobin 11.6 L ABG Oxyhemoglobin ABG Sodium 131.9 L ABG Chloride ABG Glucose 207 H Oxyhemoglobin Carboxyhemoglobin Sodium Potassium Chloride Carbon Dioxide BUN Creatinine Glucose POC Glucose 186 H Calcium Magnesium Ferritin AST Lactate Dehydrogenase Total Creatine Kinase Troponin T C-Reactive Protein Total Protein Albumin Triglycerides HDL Cholesterol Arterial Blood Glucose 207 H Arterial Blood Ionized Calcium Urine WBC (Auto) Vancomycin Trough Salicylates Acetaminophen Coronavirus (PCR) 07/27/21 07/27/21 07/27/21 04:48 05:04 11:36 WBC RBC Hgb Hct RDW Lymph % (Auto) Lymph # (Auto) Seg Neutrophils % Seg Neuts % (Manual) Lymphocytes % (Manual) Nucleated RBC % Seg Neutrophils # Seg Neutrophils # Man Lymphocytes # (Manual) Monocytes # (Manual) PT D-Dimer ABG pH POC ABG pCO2 POC ABG pO2 ABG pO2 ABG O2 Saturation ABG Base Excess ABG Hemoglobin ABG Oxyhemoglobin ABG Sodium ABG Chloride ABG Glucose Oxyhemoglobin Carboxyhemoglobin Sodium Potassium Chloride Carbon Dioxide BUN 35 H Creatinine Glucose 216 H POC Glucose 201 H 142 H Calcium Magnesium Ferritin AST Lactate Dehydrogenase Total Creatine Kinase Troponin T C-Reactive Protein Total Protein Albumin Triglycerides HDL Cholesterol Arterial Blood Glucose Arterial Blood Ionized Calcium Urine WBC (Auto) Vancomycin Trough Salicylates Acetaminophen Coronavirus (PCR) 07/27/21 07/27/21 07/28/21 18:14 22:03 04:00 WBC RBC Hgb Hct RDW Lymph % (Auto) Lymph # (Auto) Seg Neutrophils % Seg Neuts % (Manual) Lymphocytes % (Manual) Nucleated RBC % Seg Neutrophils # Seg Neutrophils # Man Lymphocytes # (Manual) Monocytes # (Manual) PT D-Dimer ABG pH 7.491 H POC ABG pCO2 POC ABG pO2 109.2 H ABG pO2 ABG O2 Saturation ABG Base Excess ABG Hemoglobin ABG Oxyhemoglobin ABG Sodium 133.9 L ABG Chloride ABG Glucose 163 H Oxyhemoglobin Carboxyhemoglobin Sodium Potassium Chloride Carbon Dioxide BUN Creatinine Glucose POC Glucose 166 H 149 H Calcium Magnesium Ferritin AST Lactate Dehydrogenase Total Creatine Kinase Troponin T C-Reactive Protein Total Protein Albumin Triglycerides HDL Cholesterol Arterial Blood Glucose 163 H Arterial Blood Ionized Calcium Urine WBC (Auto) Vancomycin Trough Salicylates Acetaminophen Coronavirus (PCR) 07/28/21 07/28/21 07/28/21 04:10 04:10 04:10 WBC RBC Hgb Hct RDW Lymph % (Auto) Lymph # (Auto) Seg Neutrophils % Seg Neuts % (Manual) Lymphocytes % (Manual) Nucleated RBC % Seg Neutrophils # Seg Neutrophils # Man Lymphocytes # (Manual) Monocytes # (Manual) PT D-Dimer 5318.85 H ABG pH POC ABG pCO2 POC ABG pO2 ABG pO2 ABG O2 Saturation ABG Base Excess ABG Hemoglobin ABG Oxyhemoglobin ABG Sodium ABG Chloride ABG Glucose Oxyhemoglobin Carboxyhemoglobin Sodium Potassium Chloride Carbon Dioxide 31 H BUN 35 H Creatinine Glucose 187 H POC Glucose Calcium Magnesium Ferritin 324.6 H AST Lactate Dehydrogenase 414 H Total Creatine Kinase Troponin T C-Reactive Protein Total Protein Albumin Triglycerides HDL Cholesterol Arterial Blood Glucose Arterial Blood Ionized Calcium Urine WBC (Auto) Vancomycin Trough Salicylates Acetaminophen Coronavirus (PCR) 07/28/21 07/28/21 07/28/21 04:10 05:25 12:10 WBC 13.7 H RBC Hgb Hct RDW Lymph % (Auto) Lymph # (Auto) Seg Neutrophils % Seg Neuts % (Manual) Lymphocytes % (Manual) Nucleated RBC % Seg Neutrophils # Seg Neutrophils # Man Lymphocytes # (Manual) Monocytes # (Manual) PT D-Dimer ABG pH POC ABG pCO2 POC ABG pO2 ABG pO2 ABG O2 Saturation ABG Base Excess ABG Hemoglobin ABG Oxyhemoglobin ABG Sodium ABG Chloride ABG Glucose Oxyhemoglobin Carboxyhemoglobin Sodium Potassium Chloride Carbon Dioxide BUN Creatinine Glucose POC Glucose 152 H 162 H Calcium Magnesium Ferritin AST Lactate Dehydrogenase Total Creatine Kinase Troponin T C-Reactive Protein Total Protein Albumin Triglycerides HDL Cholesterol Arterial Blood Glucose Arterial Blood Ionized Calcium Urine WBC (Auto) Vancomycin Trough Salicylates Acetaminophen Coronavirus (PCR) 07/28/21 07/28/21 07/29/21 17:44 21:58 04:00 WBC RBC Hgb Hct RDW Lymph % (Auto) Lymph # (Auto) Seg Neutrophils % Seg Neuts % (Manual) Lymphocytes % (Manual) Nucleated RBC % Seg Neutrophils # Seg Neutrophils # Man Lymphocytes # (Manual) Monocytes # (Manual) PT D-Dimer ABG pH 7.510 H POC ABG pCO2 POC ABG pO2 113.0 H ABG pO2 ABG O2 Saturation ABG Base Excess ABG Hemoglobin 11.1 L ABG Oxyhemoglobin ABG Sodium 135.0 L ABG Chloride ABG Glucose 162 H Oxyhemoglobin Carboxyhemoglobin 0.3 L Sodium Potassium Chloride Carbon Dioxide BUN Creatinine Glucose POC Glucose 152 H 139 H Calcium Magnesium Ferritin AST Lactate Dehydrogenase Total Creatine Kinase Troponin T C-Reactive Protein Total Protein Albumin Triglycerides HDL Cholesterol Arterial Blood Glucose 162 H Arterial Blood Ionized Calcium 4.4 L Urine WBC (Auto) Vancomycin Trough Salicylates Acetaminophen Coronavirus (PCR) 07/29/21 07/29/21 07/29/21 04:35 04:35 05:47 WBC 12.0 H RBC Hgb Hct RDW Lymph % (Auto) Lymph # (Auto) Seg Neutrophils % Seg Neuts % (Manual) Lymphocytes % (Manual) Nucleated RBC % Seg Neutrophils # Seg Neutrophils # Man Lymphocytes # (Manual) Monocytes # (Manual) PT D-Dimer ABG pH POC ABG pCO2 POC ABG pO2 ABG pO2 ABG O2 Saturation ABG Base Excess ABG Hemoglobin ABG Oxyhemoglobin ABG Sodium ABG Chloride ABG Glucose Oxyhemoglobin Carboxyhemoglobin Sodium Potassium Chloride Carbon Dioxide BUN 34 H Creatinine Glucose 170 H POC Glucose 153 H Calcium Magnesium Ferritin AST Lactate Dehydrogenase Total Creatine Kinase Troponin T C-Reactive Protein Total Protein Albumin Triglycerides HDL Cholesterol Arterial Blood Glucose Arterial Blood Ionized Calcium Urine WBC (Auto) Vancomycin Trough Salicylates Acetaminophen Coronavirus (PCR) 07/29/21 11:25 WBC RBC Hgb Hct RDW Lymph % (Auto) Lymph # (Auto) Seg Neutrophils % Seg Neuts % (Manual) Lymphocytes % (Manual) Nucleated RBC % Seg Neutrophils # Seg Neutrophils # Man Lymphocytes # (Manual) Monocytes # (Manual) PT D-Dimer ABG pH POC ABG pCO2 POC ABG pO2 ABG pO2 ABG O2 Saturation ABG Base Excess ABG Hemoglobin ABG Oxyhemoglobin ABG Sodium ABG Chloride ABG Glucose Oxyhemoglobin Carboxyhemoglobin Sodium Potassium Chloride Carbon Dioxide BUN Creatinine Glucose POC Glucose 142 H Calcium Magnesium Ferritin AST Lactate Dehydrogenase Total Creatine Kinase Troponin T C-Reactive Protein Total Protein Albumin Triglycerides HDL Cholesterol Arterial Blood Glucose Arterial Blood Ionized Calcium Urine WBC (Auto) Vancomycin Trough Salicylates Acetaminophen Coronavirus (PCR)
--- NOTE | 2021-07-29 14:32 | Progress Note ---
Assessment and Plan Cultures: Blood culture 07/18/2021 no growth so far Urine culture 07/18/2021 no growth so far A/P: 55 yo F PMHx HTN, DM2 presents with severe COVID pneumonia. #Presumed COVID pneumonia: pending PCR, clinical presentation consistent with d iagnosis. Elevated procalcitonin as well, however in the setting of ION #Acute hypoxic respiratory failure: currently on the vent #Bilateral pulmonary emboli: anticoagulation per hospital protocol #Tricuspid valve thrombus #ION Recs: -Continue cefepime given fevers, plan 8 days -Completed 5 days remdesivir -Received Actemra 07/20/2021 -Anticoagulation per hospital protocol -Proning as able -Obtain q48-72h inflammatory markers - ferritin, Ddimer, CRP, LDH Thank you for the consult, we will sign off. Please call back with any questions. Jessica Hassan MD [facility] O: [phone] F: [phone] Subjective Date of service: 07/29/21 Principal diagnosis: COVID pneumonia Interval history: Afebrile with T-max 100.2. White count improving, now 12. Imaging personally reviewed: Chest x-ray: Low lung volumes. Objective - Exam Narrative Exam: Physical exam deferred to reduce risk of transmission of COVID-19. Please refer to primary team's note. - Constitutional Vitals: Vital Signs Temp Pulse Resp BP Pulse Ox 100.2 F H 54 L 29 H 126/62 99 07/29/21 11:42 07/29/21 12:35 07/29/21 08:15 07/29/21 12:35 07/29/21 12:35 Temperature -Last 24 Hours Temperature 100.2 F Temperature 99.2 F Temperature 99.4 F Temperature 98.9 F Temperature 99.3 F Temperature 98.3 F Temperature 98.3 F - Labs CBC & Chem 7: 07/29/21 04:35 07/29/21 04:35 Labs: Abnormal lab results 07/28/21 07/28/21 07/29/21 Range/Units 17:44 21:58 04:00 WBC (4.5-11.0) K/mm3 ABG pH 7.510 H (7.320-7.450) POC ABG pO2 113.0 H (83-108) mmHg ABG Hemoglobin 11.1 L (12.0-17.5) ABG Sodium 135.0 L (136.0-145.0) mmol/L ABG Glucose 162 H (65-95) mg/dL Carboxyhemoglobin 0.3 L (0.5-1.5) BUN (7-17) mg/dL Glucose (65-100) mg/dL POC Glucose 152 H 139 H (70-105) mg/dL Arterial Blood Glucose 162 H (65-95) mg/dL Arterial Blood Ionized Calcium 4.4 L (4.6-5.3) mg/dL 07/29/21 07/29/21 07/29/21 Range/Units 04:35 04:35 05:47 WBC 12.0 H (4.5-11.0) K/mm3 ABG pH (7.320-7.450) POC ABG pO2 (83-108) mmHg ABG Hemoglobin (12.0-17.5) ABG Sodium (136.0-145.0) mmol/L ABG Glucose (65-95) mg/dL Carboxyhemoglobin (0.5-1.5) BUN 34 H (7-17) mg/dL Glucose 170 H (65-100) mg/dL POC Glucose 153 H (70-105) mg/dL Arterial Blood Glucose (65-95) mg/dL Arterial Blood Ionized Calcium (4.6-5.3) mg/dL 07/29/21 Range/Units 11:25 WBC (4.5-11.0) K/mm3 ABG pH (7.320-7.450) POC ABG pO2 (83-108) mmHg ABG Hemoglobin (12.0-17.5) ABG Sodium (136.0-145.0) mmol/L ABG Glucose (65-95) mg/dL Carboxyhemoglobin (0.5-1.5) BUN (7-17) mg/dL Glucose (65-100) mg/dL POC Glucose 142 H (70-105) mg/dL Arterial Blood Glucose (65-95) mg/dL Arterial Blood Ionized Calcium (4.6-5.3) mg/dL
--- NOTE | 2021-07-29 16:33 | Progress Note ---
<KAMARIRYAN HVeronica - Last Filed: 07/29/21 16:25> Assessment and Plan Assessment and plan: This is a 55-year-old female with obesity, diabetes, anxiety, hypertension admitted with severe Covid 19 pneumonia, multiple subsegmental pulmonary embolism, acute kidney injury and sepsis Neuro: Acute metabolic encephalopathy, h/o anxiety -Sedated with fentanyl and Versed -Goal RASS 0 to -1 -Daily SAT trial when appropriate -Avoid delirium -Bilateral wrist restraints for safety CV: SRSB, mobile echogenic density on the tricuspid valve apparatus -Cardiology consulted, appreciate recommendations -Cardiology concluded SB likely aggravated by remdesivir -Normal TSH -Recommend repeat echo in 3 months to evaluate mobile port density -Per cardiology: Given clinical picture density most likely represents a thrombus in the second vegetation Respiratory: ARDS, acute hypoxic respiratory failure, severe COVID-19 bronchopneumonia -Intubated 07/18 with 7.50 ETT at 21 the lips -CCM consulted, appreciate recommendations -VAP bundle -A.m. vent settings: AC rate 26, tidal volume 420, PEEP 12, FiO2 55% -See RT notes for titration -Daily CXR and ABG -Daily SAT/SBT trials when appropriate -AM CXR and ABG reviewed GI: Moderate protein calorie malnutrition, obesity -Nutrition consult -On tube feedings -BR with Senokot -PPI -24-hour fluid balance -775 -Free water flush 200 mL every 4 : Acute kidney injury secondary to sepsis/ATN, hyperkalemia (resolved) -Strict intake and output -Daily weights -Monitor and intervene with electrolytes as needed -Trend BMP Heme: Multiple subsegmental pulmonary embolism, LLE DVT -On Lovenox -Trend CBC -Monitor temperature curve -SCDs to bilateral lower extremities while in bed -Evidenced on CTA chest-> see results -BLE US shows LLE DVT ID: COVID-19 pneumonia, sepsis/septic shock -Infectious disease consulted, appreciate recommendations -COVID-19 PCR positive -Antibiotics with cefepime -S/p remdesivir and Actemra -Solu-Medrol 60 mg every 8->weaning per CCM -Contact/droplet isolation -Prone as tolerated and needed -Pulmonary hygiene -Trend COVID-19 inflammatory markers for recertification Endo: Stress hyperglycemia, obesity, h/o DM type II -Avoid hypoglycemia -SSI -Lantus -Accu-Cheks every 6 The high probability of a clinically significant, sudden or life threatening deterioration of the [multi] system(s) required my full and direct attention, intervention and personal management. The aggregate critical care time was [60] minutes. This time is in addition to time spent performing reported procedures but includes the following: [x] Data Review and interpretation [x] Patient assessment and monitoring of vital signs [x] Documentation [x] Medication orders and management Disposition Plan: icu Total Time Spent with Patient (Minutes): 60 History Interval history: This is a 55-year-old female with obesity, diabetes, anxiety, hypertension who presented to the emergency department on 07/18 via EMS for low oxygen saturations on CPAP in the high 60s to 70s. In the emergency department patient had persistently low oxygen levels and was intubated electively. Work-up in the emergency department revealed bilateral pneumonia, multiple segmental bilateral pulmonary emboli, extensive bilateral Covid bronchopneumonia. Patient was admitted to the hospitalist service with consults to [facility] for acute hypoxic respiratory failure, acute encephalopathy, multiple pulmonary embolism ION and as a COVID-19 PUI. 07/18 admit to hospital via ER; being held in ER for ICU bed 07/19 remains in ER intubated and mechanically ventilated; covid pos 07-20 came to ICU overnight from ER; no bradycardic 07/21/2021. Patient remains orally intubated on mechanical ventilation AC mode rate of 26, tidal volume 420, FiO2 90% and PEEP of 16. Continue empiric antibiotics of ceftriaxone and azithromycin for 5 days total. Complete 5 days of remdesivir and continue IV steroids. Patient received Actemra 07/20/2021. Continue therapeutic anticoagulation with Lovenox 100 mg subcu twice daily. Continue sedation of fentanyl and Versed as tolerated. Continue pressors to maintain MAP > 65. Follow-up echocardiogram. 07/22/2021. Patient on mechanical ventilation AC mode rate of 26, FiO2 70% and PEEP of 16. Continue to wean FiO2 as tolerated. Continue antibiotics per ID recommendations. Patient currently with ceftriaxone and azithromycin. Complete 5 days of remdesivir. Continue IV steroids. Patient received Actemra on 07/20/2021. Continue prone positioning as able. Continue to trend inflammatory markers. 07/23/2021. Patient remains on mechanical ventilation AC mode rate of 26, tidal volume 420, FiO2 75% and PEEP of 16. Continue to wean FiO2 as tolerated. Continue antibiotics per ID recommendations. Patient currently with ceftriaxone and azithromycin. Complete 5 days of remdesivir. Continue IV steroids. Patient received Actemra on 07/20/2021. Continue prone positioning as able. Continue to trend inflammatory markers. ID and pulmonary following. 07/24/2021. Patient remains on mechanical ventilation AC mode rate of 26, tidal volume 420, FiO2 70% and PEEP of 16. Patient with possible tricuspid valve vegetation seen on echocardiogram. Consult cardiology for further evaluation. Continue IV antibiotics per ID recommendations. Prone position is possible. Continue to trend inflammatory markers. 07/25/2021. Patient remains on mechanical ventilation AC mode rate of 26, tidal volume 420, FiO2 70% and PEEP of 14. Patient with possible tricuspid valve vegetation seen on echocardiogram. Consult cardiology for further evaluation. Continue IV antibiotics per ID recommendations. Prone position is possible. Continue to trend inflammatory markers. 07/26: MICHAEL, hyperkalemia 07/27: OETT advanced. Remains sedated but able to follow commands. MICHAEL. 07/28: O ETT retracted. MICHAEL overnight. Patient remains sinus bradycardia and hypertensive at times. Remains on Versed and fentanyl. 07/29: Night patient became hypotensive and required a 500 cc bolus. Hydralazine dose change. Hospitalist Physical - Constitutional Vitals: Temp Pulse Resp BP Pulse Ox 100.2 F H 39 L 26 H 99/49 99 07/29/21 11:42 07/29/21 16:21 07/29/21 16:00 07/29/21 16:21 07/29/21 16:21 General appearance: Present: no acute distress, other (sedated) - EENT Eyes: Present: PERRL ENT: dentition normal - Neck Neck: Present: normal ROM - Respiratory Respiratory effort: normal Respiratory: bilateral: diminished - Cardiovascular Rhythm: regular Heart Sounds: Present: S1 & S2. Absent: systolic murmur, diastolic murmur - Extremities Extremities: no ischemia, pulses intact, pulses symmetrical, normal temperature, normal color Extremity abnormal: edema Peripheral Pulses: within normal limits - Abdominal General gastrointestinal: soft, non-tender, non-distended, normal bowel sounds - Integumentary Integumentary: Present: warm, dry - Psychiatric Psychiatric: other (Sedated) - Allied Health Allied health notes reviewed: nursing, RT, social work HEART Score - HEART Score Troponin: Troponin T 0.106 ng/mL (0.00-0.029) H* 07/18/21 16:00 Results - Labs CBC & Chem 7: 07/29/21 04:35 07/29/21 04:35 Labs: Laboratory Last Values WBC 12.0 K/mm3 (4.5-11.0) H 07/29/21 04:35 RBC 3.94 M/mm3 (3.65-5.03) 07/29/21 04:35 Hgb 11.3 gm/dl (10.1-14.3) 07/29/21 04:35 Hct 34.1 % (30.3-42.9) 07/29/21 04:35 MCV 87 fl (79-97) 07/29/21 04:35 MCH 29 pg (28-32) 07/29/21 04:35 MCHC 33 % (30-34) 07/29/21 04:35 RDW 14.7 % (13.2-15.2) 07/29/21 04:35 Plt Count 201 K/mm3 (140-440) 07/29/21 04:35 Lymph % (Auto) 10.7 % (13.4-35.0) L 07/19/21 04:59 Mayes % (Auto) 4.8 % (0.0-7.3) 07/19/21 04:59 Eos % (Auto) 0.1 % (0.0-4.3) 07/19/21 04:59 Baso % (Auto) 0.1 % (0.0-1.8) 07/19/21 04:59 Lymph # (Auto) 1.1 K/mm3 (1.2-5.4) L 07/19/21 04:59 Mayes # (Auto) 0.5 K/mm3 (0.0-0.8) 07/19/21 04:59 Eos # (Auto) 0.0 K/mm3 (0.0-0.4) 07/19/21 04:59 Baso # (Auto) 0.0 K/mm3 (0.0-0.1) 07/19/21 04:59 Add Manual Diff Complete 07/27/21 04:48 Total Counted 100 07/27/21 04:48 Seg Neutrophils % Rhythmic Gymnastics Coach 07/27/21 04:48 Seg Neuts % (Manual) 92.0 % (40.0-70.0) H 07/27/21 04:48 Band Neutrophils % 1.0 % 07/26/21 06:07 Lymphocytes % (Manual) 3.0 % (13.4-35.0) L 07/27/21 04:48 Monocytes % (Manual) 5.0 % (0.0-7.3) 07/27/21 04:48 Metamyelocytes % 1.0 % 07/26/21 06:07 Myelocytes % 1.0 % 07/25/21 04:28 Nucleated RBC % 1.0 % (0.0-0.9) H 07/27/21 04:48 Seg Neutrophils # 8.7 K/mm3 (1.8-7.7) H 07/19/21 04:59 Seg Neutrophils # Man 15.2 K/mm3 (1.8-7.7) H 07/27/21 04:48 Band Neutrophils # 0.0 K/mm3 07/27/21 04:48 Lymphocytes # (Manual) 0.5 K/mm3 (1.2-5.4) L 07/27/21 04:48 Abs React Lymphs (Man) 0.0 K/mm3 07/27/21 04:48 Monocytes # (Manual) 0.8 K/mm3 (0.0-0.8) 07/27/21 04:48 Eosinophils # (Manual) 0.0 K/mm3 (0.0-0.4) 07/27/21 04:48 Basophils # (Manual) 0.0 K/mm3 (0.0-0.1) 07/27/21 04:48 Metamyelocytes # 0.0 K/mm3 07/27/21 04:48 Myelocytes # 0.0 K/mm3 07/27/21 04:48 Promyelocytes # 0.0 K/mm3 07/27/21 04:48 Blast Cells # 0.0 K/mm3 07/27/21 04:48 WBC Morphology Not Reportable 07/27/21 04:48 Hypersegmented Neuts Not Reportable 07/27/21 04:48 Hyposegmented Neuts Not Reportable 07/27/21 04:48 Hypogranular Neuts Not Reportable 07/27/21 04:48 Smudge Cells Not Reportable 07/27/21 04:48 Toxic Granulation Not Reportable 07/27/21 04:48 Toxic Vacuolation Not Reportable 07/27/21 04:48 Dohle Bodies Not Reportable 07/27/21 04:48 Pelger-Huet Anomaly Not Reportable 07/27/21 04:48 Alonzo Rods Not Reportable 07/27/21 04:48 Platelet Estimate Consistent w auto 07/27/21 04:48 Clumped Platelets Not Reportable 07/27/21 04:48 Plt Clumps, EDTA Not Reportable 07/27/21 04:48 Large Platelets Not Reportable 07/27/21 04:48 Giant Platelets Not Reportable 07/27/21 04:48 Platelet Satelliting Not Reportable 07/27/21 04:48 Plt Morphology Comment Not Reportable 07/27/21 04:48 RBC Morphology Normal 07/27/21 04:48 Dimorphic RBCs Not Reportable 07/27/21 04:48 Polychromasia Not Reportable 07/27/21 04:48 Hypochromasia Not Reportable 07/27/21 04:48 Poikilocytosis Not Reportable 07/27/21 04:48 Anisocytosis Not Reportable 07/27/21 04:48 Microcytosis Not Reportable 07/27/21 04:48 Macrocytosis Not Reportable 07/27/21 04:48 Spherocytes Not Reportable 07/27/21 04:48 Pappenheimer Bodies Not Reportable 07/27/21 04:48 Sickle Cells Not Reportable 07/27/21 04:48 Target Cells Not Reportable 07/27/21 04:48 Tear Drop Cells Not Reportable 07/27/21 04:48 Ovalocytes Not Reportable 07/27/21 04:48 Helmet Cells Not Reportable 07/27/21 04:48 Jacinto-Hospers Bodies Not Reportable 07/27/21 04:48 [place] Rings Not Reportable 07/27/21 04:48 Platinum Cells Not Reportable 07/27/21 04:48 Bite Cells Not Reportable 07/27/21 04:48 Crenated Cell Not Reportable 07/27/21 04:48 Elliptocytes Not Reportable 07/27/21 04:48 Acanthocytes (Spur) Not Reportable 07/27/21 04:48 Rouleaux Not Reportable 07/27/21 04:48 Hemoglobin C Crystals Not Reportable 07/27/21 04:48 Schistocytes Not Reportable 07/27/21 04:48 Malaria parasites Not Reportable 07/27/21 04:48 Jarvis Bodies Not Reportable 07/27/21 04:48 Hem Pathologist Commnt No 07/27/21 04:48 PT 15.1 Sec. (12.2-14.9) H 07/18/21 16:00 INR 1.13 (0.87-1.13) 07/18/21 16:00 APTT 31.9 Sec. (24.2-36.6) 07/18/21 16:00 D-Dimer 5318.85 ng/mlDDU (0-234) H 07/28/21 04:10 ABG pH 7.510 (7.320-7.450) H 07/29/21 04:00 POC ABG pCO2 38.1 mmHg (32.0-48.0) 07/29/21 04:00 ABG pCO2 35.2 mm Hg 07/19/21 Unknown POC ABG pO2 113.0 mmHg (83-108) H 07/29/21 04:00 ABG pO2 64.2 mm Hg (80.0-90.0) L 07/19/21 Unknown POC ABG HCO3 29.7 07/29/21 04:00 ABG HCO3 20.1 mmol/L (20.0-26.0) 07/19/21 Unknown ABG O2 Saturation 98.0 (0-100) 07/29/21 04:00 ABG O2 Content 14.3 (0.0-44) 07/19/21 Unknown POC ABG Base Excess 6.3 07/29/21 04:00 ABG Base Excess -4.5 mmol/L (-2.0-3.0) L 07/19/21 Unknown ABG Hemoglobin 11.1 (12.0-17.5) L 07/29/21 04:00 ABG Oxyhemoglobin 97.4 (94-98) 07/29/21 04:00 ABG Carboxyhemoglobin 0.8 % (0.0-5.0) 07/19/21 Unknown ABG Methemoglobin 0.3 (0.0-1.5) 07/29/21 04:00 ABG Sodium 135.0 mmol/L (136.0-145.0) L 07/29/21 04:00 ABG Potassium 4.4 mmol/L (3.40-4.50) 07/29/21 04:00 ABG Chloride 101.0 mmol/L (98-107) 07/29/21 04:00 ABG Glucose 162 mg/dL (65-95) H 07/29/21 04:00 Oxyhemoglobin 91.9 % (95.0-99.0) L 07/19/21 Unknown Carboxyhemoglobin 0.3 (0.5-1.5) L 07/29/21 04:00 FiO2 100 % 07/19/21 Unknown FiO2 % 60.0 07/29/21 04:00 Sodium 138 mmol/L (137-145) 07/29/21 04:35 Potassium 4.8 mmol/L (3.6-5.0) 07/29/21 04:35 Chloride 99.6 mmol/L (98-107) 07/29/21 04:35 Carbon Dioxide 30 mmol/L (22-30) 07/29/21 04:35 Anion Gap 13 mmol/L 07/29/21 04:35 BUN 34 mg/dL (7-17) H 07/29/21 04:35 Creatinine 0.6 mg/dL (0.6-1.2) 07/29/21 04:35 Estimated GFR > 60 ml/min 07/29/21 04:35 BUN/Creatinine Ratio 57 % 07/29/21 04:35 Glucose 170 mg/dL (65-100) H 07/29/21 04:35 POC Glucose 142 mg/dL (70-105) H 07/29/21 11:25 Lactic Acid 1.40 mmol/L (0.7-2.0) 07/18/21 16:00 Calcium 9.0 mg/dL (8.4-10.2) 07/29/21 04:35 Phosphorus 3.70 mg/dL (2.5-4.5) 07/20/21 04:44 Magnesium 3.10 mg/dL (1.7-2.3) H 07/20/21 04:44 Ferritin 324.6 ng/mL (10.0-200.0) H 07/28/21 04:10 Total Bilirubin 0.20 mg/dL (0.1-1.2) 07/22/21 04:39 AST 38 units/L (5-40) 07/22/21 04:39 ALT 29 units/L (7-56) 07/22/21 04:39 Alkaline Phosphatase 83 units/L (35-129) 07/22/21 04:39 Ammonia 37.0 umol/L (25-60) 07/18/21 16:00 Lactate Dehydrogenase 414 units/L (91-180) H 07/28/21 04:10 Total Creatine Kinase 157 units/L (30-135) H 07/18/21 16:00 Troponin T 0.106 ng/mL (0.00-0.029) H* 07/18/21 16:00 C-Reactive Protein 0.30 mg/dL (0.00-1.30) 07/28/21 04:10 Total Protein 6.4 g/dL (6.3-8.2) 07/22/21 04:39 Albumin 2.9 g/dL (3.9-5) L 07/22/21 04:39 Albumin/Globulin Ratio 0.8 % 07/22/21 04:39 Triglycerides 156 mg/dL (2-149) H 07/18/21 16:00 Cholesterol 127 mg/dL (50-199) 07/18/21 16:00 LDL Cholesterol Direct 64 mg/dL (50-130) 07/18/21 16:00 HDL Cholesterol 33 mg/dL (40-59) L 07/18/21 16:00 Cholesterol/HDL Ratio 3.84 % 07/18/21 16:00 Procalcitonin < 0.05 ng/mL (<0.15) 07/26/21 13:53 TSH 0.469 mlU/mL (0.270-4.200) 07/21/21 04:52 Free T4 1.05 ng/dL (0.76-1.46) 07/21/21 04:52 Arterial Blood Glucose 162 mg/dL (65-95) H 07/29/21 04:00 Arterial Blood Ionized Calcium 4.4 mg/dL (4.6-5.3) L 07/29/21 04:00 Urine Color Yellow (Yellow) 07/18/21 Unknown Urine Turbidity Slightly-cloudy (Clear) 07/18/21 Unknown Urine pH 5.0 (5.0-7.0) 07/18/21 Unknown Ur Specific [place] 1.020 (1.003-1.030) 07/18/21 Unknown Urine Protein >500 mg/dL (Negative) 07/18/21 Unknown Urine Glucose (UA) Neg mg/dL (Negative) 07/18/21 Unknown Urine Ketones 20 mg/dL (Negative) 07/18/21 Unknown Urine Blood Neg (Negative) 07/18/21 Unknown Urine Nitrite Neg (Negative) 07/18/21 Unknown Urine Bilirubin Neg (Negative) 07/18/21 Unknown Urine Urobilinogen < 2.0 mg/dL (<2.0) 07/18/21 Unknown Ur Leukocyte Esterase Neg (Negative) 07/18/21 Unknown Urine WBC (Auto) 9.0 /HPF (0.0-6.0) H 07/18/21 Unknown Urine RBC (Auto) 2.0 /HPF (0.0-6.0) 07/18/21 Unknown U Epithel Cells (Auto) 1.0 /HPF (0-13.0) 07/18/21 Unknown Urine Bacteria (Auto) 1+ /HPF (Negative) 07/18/21 Unknown Amorphous Crystals Few 07/18/21 Unknown Urine Mucus Few /HPF 07/18/21 Unknown Vancomycin Trough 22.9 ug/mL (5.0-20.0) H 07/25/21 04:28 Salicylates < 0.3 mg/dL (2.8-20.0) L 07/18/21 16:00 Urine Opiates Screen Negative 07/18/21 Unknown Urine Methadone Screen Negative 07/18/21 Unknown Acetaminophen 5.7 ug/mL (10.0-30.0) L 07/18/21 16:00 Ur Barbiturates Screen Negative 07/18/21 Unknown Ur Phencyclidine Scrn Negative 07/18/21 Unknown Ur Amphetamines Screen Negative 07/18/21 Unknown U Benzodiazepines Scrn Negative 07/18/21 Unknown Urine Cocaine Screen Negative 07/18/21 Unknown U Marijuana (THC) Screen Negative 07/18/21 Unknown Drugs of Abuse Note Disclamer 07/18/21 Unknown Plasma/Serum Alcohol < 0.01 % (0-0.07) 07/18/21 16:00 Coronavirus (PCR) Positive (Negative) A 07/19/21 Unknown Blood Type O POSITIVE 07/18/21 16:05 Antibody Screen Negative 07/18/21 16:05 Guzman/IV: Voiding Method Indwelling Catheter Active Medications - Current Medications Current Medications: Generic Name Dose Route Start Last Admin Trade Name Freq PRN Reason Stop Dose Admin Acetaminophen 650 mg 07/18/21 22:49 Acetaminophen 325 Mg Tab PO Q4H PRN Pain MILD(1-3)/Fever >100.5/URENA Lipase/Protease/Amylase 1 each 07/18/21 22:56 Lipase 10,500/Protease 25,000/Amylase 43,750 (Units) Dr Cap FEEDTUBE PRN PRN For Clogged Feeding Tube Bisacodyl 10 mg 07/27/21 09:02 07/27/21 11:16 Bisacodyl 10 Mg Rect Supp CO 10 mg QDAY PRN Administration Constip unreliev by MOM/or NPO Enoxaparin Sodium 100 mg 07/19/21 10:00 07/29/21 09:54 Enoxaparin 100 Mg/1 Ml Inj SUB-Q 100 mg Q12HR NICOLE Administration Protocol Famotidine 20 mg 07/18/21 22:00 07/29/21 09:55 Famotidine 20 Mg/2 Ml Inj IV 20 mg BID NICOLE Administration Fentanyl 50 mcg 07/18/21 14:41 Fentanyl 100 Mcg/2 Ml Inj IV Q10MIN PRN ANALGESIA Hydralazine HCl 10 mg 07/29/21 09:00 07/29/21 09:54 Hydralazine 10 Mg Tab PO 10 mg Q8HR NICOLE Administration Hydrophilic Ointment 1 applic 07/18/21 14:41 Lip Therapy Vaseline TP Q2HR PRN Dry Lips Fentanyl Citrate 2,000 mcg in 100 mls @ 4.915 mls/hr 07/18/21 16:00 07/29/21 13:26 Fentanyl Drip Premix IV 4 mcg/kg/hr TITR NICOLE 19.66 mls/hr Administration Protocol 1 MCG/KG/HR Midazolam HCl 100 mg/ Sodium 100 mls @ 2 mls/hr 07/18/21 19:00 07/29/21 10:03 Chloride IV 5 mg/hr TITR NICOLE 5 mls/hr Titration Protocol 2 MG/HR Cefepime HCl 2 gm in 100 mls @ 200 mls/hr 07/25/21 14:00 07/29/21 13:24 Cefepime/Ns 2 Gm/100 Ml IV 08/02/21 06:29 200 mls/hr Q8H NICOLE Administration Protocol Insulin Glargine 5 units 07/27/21 22:00 07/28/21 22:17 Insulin Glargine 100 Units/Ml SUB-Q 5 units QHS NICOLE Administration Insulin Human Lispro 0 unit 07/27/21 12:00 07/29/21 08:00 Insulin Lispro 100 Unit/Ml SUB-Q 3 unit Q6HR NICOLE Administration Protocol Methylprednisolone Sodium Succinate 40 mg 07/27/21 14:00 07/29/21 13:25 Methylprednisolone Sod Succinate 40 Mg/1 Ml Inj IV 40 mg Q8HR NICOLE Administration Midazolam HCl 2 mg 07/18/21 18:11 07/22/21 07:56 Midazolam 2 Mg/2 Ml Inj IV 2 mg Q10MIN PRN Administration Sedation Multi-Ingred Cream/Lotion/Oil/Oint 1 applic 07/18/21 14:41 Mineral Oil/Petrolatum, White Ophth Oint 3.5 Gm OU Q4HR PRN Dry Eye(s) Ondansetron HCl 4 mg 07/18/21 22:49 Ondansetron 4 Mg/2 Ml Inj IV Q8H PRN Nausea And Vomiting Senna/Docusate Sodium 1 tab 07/18/21 22:00 07/29/21 09:55 Sennosides/Docusate Sodium 8.6/50 Mg Tab FEEDTUBE 1 tab BID NICOLE Administration Simple Syrup 15 ml 07/18/21 22:56 Simple Syrup 15 Ml FEEDTUBE PRN PRN Hypoglycemia Simple Syrup 30 ml 07/18/21 22:56 Simple Syrup 15 Ml FEEDTUBE PRN PRN Hypoglycemia Sodium Bicarbonate 325 mg 07/18/21 22:56 Sodium Bicarbonate 325 Mg Tab FEEDTUBE PRN PRN For Clogged Feeding Tube Sodium Chloride 10 ml 07/19/21 10:00 07/29/21 09:55 Sodium Chloride 0.9% 10 Ml Flush Syringe IV 10 ml BID NICOLE Administration Sodium Chloride 10 ml 07/18/21 22:49 Sodium Chloride 0.9% 10 Ml Flush Syringe IV PRN PRN LINE FLUSH Sodium Chloride 5 ml 07/20/21 14:38 Sodium Chloride 0.9% 1000 Ml Iv Soln IV PRN PRN ART-LINE Nutrition/Malnutrition Assess - Dietary Evaluation Nutrition/Malnutrition Findings: Nutrition Notes Start: 07/19/21 09:15 Freq: Status: Active Protocol: Document 07/29/21 11:53 MK (Rec: 07/29/21 11:55 MK [id number]) Nutrition Notes Initial or Follow up Reassessment Current Diagnosis Acute Kidney Injury,Diabetes, Hypertension,Respiratory Failure Other Pertinent Diagnosis COVID Current Diet Vital HP at 55 ml/hr Labs/Tests BUN 34 Pertinent Medications Solumedrol Height 5 ft 6 in Weight 104.8 kg [place] Body Weight (kg) 59.09 BMI 37.3 Weight Status Obese Subjective/Other Information TF remains at goal and pt tolerating. Percent of energy/protein needs met: 93%/98% Burn Absent Trauma Absent Difficulty In Swallowing Current % PO Negligible Minimum of two criteria No physical signs of malnutrition #1 Nutrition Diagnosis Inadequate oral intake Diagnosis Progress(for reassessment Continues documentation) Is patient on ventilator? Yes Is Patient Ambulatory and/or Out of Bed No REE-([facility]-confined to bed) 2000.624 Kcal/Kg value to use for calculation 14 Approximate Energy Requirements Using 1467 kcal/Kg Calculation Used for Recommendations Kcal/kg Additional Notes Protein: (>2g/kg IBW) >118g Fluid: 1 ml/kcal or per MD Nutrition Intervention Change Diet Order: Continue Vital HP Nutrition Support: Vital HP at 55 ml/hr Flush 50 ml q4h Kcal 1,320 Protein (gm) 116 Fluid (mL) 1,104 Goal #1 Meet at least 75% of protein and kcal needs via TF Anticipated Discharge Needs: Unable to determine at this time Follow-Up By: 08/03/21 Additional Comments F/u: TF tolerance and renal function <EDMUNDO DAS - Last Filed: 07/30/21 16:50> History Interval history: I saw and evaluated the patient. Discussed with the nurse practitioner and agree with their findings and plan as documented in this note. Hospitalist Physical - Constitutional Vitals: Temp Pulse Resp BP Pulse Ox 99.0 F 67 26 H 131/44 98 07/30/21 16:00 07/30/21 15:15 07/30/21 13:15 07/30/21 15:15 07/30/21 15:15 HEART Score - HEART Score Troponin: Troponin T 0.106 ng/mL (0.00-0.029) H* 07/18/21 16:00 Results - Labs CBC & Chem 7: 07/30/21 05:00 07/30/21 05:00 Labs: Laboratory Last Values WBC 9.2 K/mm3 (4.5-11.0) 07/30/21 05:00 RBC 3.45 M/mm3 (3.65-5.03) L 07/30/21 05:00 Hgb 10.0 gm/dl (10.1-14.3) L 07/30/21 05:00 Hct 29.9 % (30.3-42.9) L 07/30/21 05:00 MCV 87 fl (79-97) 07/30/21 05:00 MCH 29 pg (28-32) 07/30/21 05:00 MCHC 34 % (30-34) 07/30/21 05:00 RDW 14.9 % (13.2-15.2) 07/30/21 05:00 Plt Count 180 K/mm3 (140-440) 07/30/21 05:00 Lymph % (Auto) 10.7 % (13.4-35.0) L 07/19/21 04:59 Mayes % (Auto) 4.8 % (0.0-7.3) 07/19/21 04:59 Eos % (Auto) 0.1 % (0.0-4.3) 07/19/21 04:59 Baso % (Auto) 0.1 % (0.0-1.8) 07/19/21 04:59 Lymph # (Auto) 1.1 K/mm3 (1.2-5.4) L 07/19/21 04:59 Mayes # (Auto) 0.5 K/mm3 (0.0-0.8) 07/19/21 04:59 Eos # (Auto) 0.0 K/mm3 (0.0-0.4) 07/19/21 04:59 Baso # (Auto) 0.0 K/mm3 (0.0-0.1) 07/19/21 04:59 Add Manual Diff Complete 07/27/21 04:48 Total Counted 100 07/27/21 04:48 Seg Neutrophils % Rhythmic Gymnastics Coach 07/27/21 04:48 Seg Neuts % (Manual) 92.0 % (40.0-70.0) H 07/27/21 04:48 Band Neutrophils % 1.0 % 07/26/21 06:07 Lymphocytes % (Manual) 3.0 % (13.4-35.0) L 07/27/21 04:48 Monocytes % (Manual) 5.0 % (0.0-7.3) 07/27/21 04:48 Metamyelocytes % 1.0 % 07/26/21 06:07 Myelocytes % 1.0 % 07/25/21 04:28 Nucleated RBC % 1.0 % (0.0-0.9) H 07/27/21 04:48 Seg Neutrophils # 8.7 K/mm3 (1.8-7.7) H 07/19/21 04:59 Seg Neutrophils # Man 15.2 K/mm3 (1.8-7.7) H 07/27/21 04:48 Band Neutrophils # 0.0 K/mm3 07/27/21 04:48 Lymphocytes # (Manual) 0.5 K/mm3 (1.2-5.4) L 07/27/21 04:48 Abs React Lymphs (Man) 0.0 K/mm3 07/27/21 04:48 Monocytes # (Manual) 0.8 K/mm3 (0.0-0.8) 07/27/21 04:48 Eosinophils # (Manual) 0.0 K/mm3 (0.0-0.4) 07/27/21 04:48 Basophils # (Manual) 0.0 K/mm3 (0.0-0.1) 07/27/21 04:48 Metamyelocytes # 0.0 K/mm3 07/27/21 04:48 Myelocytes # 0.0 K/mm3 07/27/21 04:48 Promyelocytes # 0.0 K/mm3 07/27/21 04:48 Blast Cells # 0.0 K/mm3 07/27/21 04:48 WBC Morphology Not Reportable 07/27/21 04:48 Hypersegmented Neuts Not Reportable 07/27/21 04:48 Hyposegmented Neuts Not Reportable 07/27/21 04:48 Hypogranular Neuts Not Reportable 07/27/21 04:48 Smudge Cells Not Reportable 07/27/21 04:48 Toxic Granulation Not Reportable 07/27/21 04:48 Toxic Vacuolation Not Reportable 07/27/21 04:48 Dohle Bodies Not Reportable 07/27/21 04:48 Pelger-Huet Anomaly Not Reportable 07/27/21 04:48 Alonzo Rods Not Reportable 07/27/21 04:48 Platelet Estimate Consistent w auto 07/27/21 04:48 Clumped Platelets Not Reportable 07/27/21 04:48 Plt Clumps, EDTA Not Reportable 07/27/21 04:48 Large Platelets Not Reportable 07/27/21 04:48 Giant Platelets Not Reportable 07/27/21 04:48 Platelet Satelliting Not Reportable 07/27/21 04:48 Plt Morphology Comment Not Reportable 07/27/21 04:48 RBC Morphology Normal 07/27/21 04:48 Dimorphic RBCs Not Reportable 07/27/21 04:48 Polychromasia Not Reportable 07/27/21 04:48 Hypochromasia Not Reportable 07/27/21 04:48 Poikilocytosis Not Reportable 07/27/21 04:48 Anisocytosis Not Reportable 07/27/21 04:48 Microcytosis Not Reportable 07/27/21 04:48 Macrocytosis Not Reportable 07/27/21 04:48 Spherocytes Not Reportable 07/27/21 04:48 Pappenheimer Bodies Not Reportable 07/27/21 04:48 Sickle Cells Not Reportable 07/27/21 04:48 Target Cells Not Reportable 07/27/21 04:48 Tear Drop Cells Not Reportable 07/27/21 04:48 Ovalocytes Not Reportable 07/27/21 04:48 Helmet Cells Not Reportable 07/27/21 04:48 Jacinto-Hospers Bodies Not Reportable 07/27/21 04:48 [place] Rings Not Reportable 07/27/21 04:48 Marshall Cells Not Reportable 07/27/21 04:48 Bite Cells Not Reportable 07/27/21 04:48 Crenated Cell Not Reportable 07/27/21 04:48 Elliptocytes Not Reportable 07/27/21 04:48 Acanthocytes (Spur) Not Reportable 07/27/21 04:48 Rouleaux Not Reportable 07/27/21 04:48 Hemoglobin C Crystals Not Reportable 07/27/21 04:48 Schistocytes Not Reportable 07/27/21 04:48 Malaria parasites Not Reportable 07/27/21 04:48 Jarvis Bodies Not Reportable 07/27/21 04:48 Hem Pathologist Commnt No 07/27/21 04:48 PT 15.1 Sec. (12.2-14.9) H 07/18/21 16:00 INR 1.13 (0.87-1.13) 07/18/21 16:00 APTT 31.9 Sec. (24.2-36.6) 07/18/21 16:00 D-Dimer 1818.72 ng/mlDDU (0-234) H 07/30/21 05:00 ABG pH 7.510 (7.320-7.450) H 07/29/21 04:00 POC ABG pCO2 38.1 mmHg (32.0-48.0) 07/29/21 04:00 ABG pCO2 35.2 mm Hg 07/19/21 Unknown POC ABG pO2 113.0 mmHg (83-108) H 07/29/21 04:00 ABG pO2 64.2 mm Hg (80.0-90.0) L 07/19/21 Unknown POC ABG HCO3 29.7 07/29/21 04:00 ABG HCO3 20.1 mmol/L (20.0-26.0) 07/19/21 Unknown ABG O2 Saturation 98.0 (0-100) 07/29/21 04:00 ABG O2 Content 14.3 (0.0-44) 07/19/21 Unknown POC ABG Base Excess 6.3 07/29/21 04:00 ABG Base Excess -4.5 mmol/L (-2.0-3.0) L 07/19/21 Unknown ABG Hemoglobin 11.1 (12.0-17.5) L 07/29/21 04:00 ABG Oxyhemoglobin 97.4 (94-98) 07/29/21 04:00 ABG Carboxyhemoglobin 0.8 % (0.0-5.0) 07/19/21 Unknown ABG Methemoglobin 0.3 (0.0-1.5) 07/29/21 04:00 ABG Sodium 135.0 mmol/L (136.0-145.0) L 07/29/21 04:00 ABG Potassium 4.4 mmol/L (3.40-4.50) 07/29/21 04:00 ABG Chloride 101.0 mmol/L (98-107) 07/29/21 04:00 ABG Glucose 162 mg/dL (65-95) H 07/29/21 04:00 Oxyhemoglobin 91.9 % (95.0-99.0) L 07/19/21 Unknown Carboxyhemoglobin 0.3 (0.5-1.5) L 07/29/21 04:00 FiO2 100 % 07/19/21 Unknown FiO2 % 60.0 07/29/21 04:00 Sodium 138 mmol/L (137-145) 07/30/21 05:00 Potassium 4.5 mmol/L (3.6-5.0) 07/30/21 05:00 Chloride 102.6 mmol/L (98-107) 07/30/21 05:00 Carbon Dioxide 29 mmol/L (22-30) 07/30/21 05:00 Anion Gap 11 mmol/L 07/30/21 05:00 BUN 34 mg/dL (7-17) H 07/30/21 05:00 Creatinine 0.6 mg/dL (0.6-1.2) 07/30/21 05:00 Estimated GFR > 60 ml/min 07/30/21 05:00 BUN/Creatinine Ratio 57 % 07/30/21 05:00 Glucose 184 mg/dL (65-100) H 07/30/21 05:00 POC Glucose 182 mg/dL (70-105) H 07/30/21 11:41 Lactic Acid 1.40 mmol/L (0.7-2.0) 07/18/21 16:00 Calcium 9.0 mg/dL (8.4-10.2) 07/30/21 05:00 Phosphorus 3.70 mg/dL (2.5-4.5) 07/30/21 05:00 Magnesium 2.10 mg/dL (1.7-2.3) 07/30/21 05:00 Ferritin 242.1 ng/mL (10.0-200.0) H 07/30/21 05:00 Total Bilirubin 0.20 mg/dL (0.1-1.2) 07/22/21 04:39 AST 38 units/L (5-40) 07/22/21 04:39 ALT 29 units/L (7-56) 07/22/21 04:39 Alkaline Phosphatase 83 units/L (35-129) 07/22/21 04:39 Ammonia 37.0 umol/L (25-60) 07/18/21 16:00 Lactate Dehydrogenase 304 units/L (91-180) H 07/30/21 05:00 Total Creatine Kinase 157 units/L (30-135) H 07/18/21 16:00 Troponin T 0.106 ng/mL (0.00-0.029) H* 07/18/21 16:00 C-Reactive Protein 0.20 mg/dL (0.00-1.30) 07/30/21 05:00 Total Protein 6.4 g/dL (6.3-8.2) 07/22/21 04:39 Albumin 2.9 g/dL (3.9-5) L 07/22/21 04:39 Albumin/Globulin Ratio 0.8 % 07/22/21 04:39 Triglycerides 156 mg/dL (2-149) H 07/18/21 16:00 Cholesterol 127 mg/dL (50-199) 07/18/21 16:00 LDL Cholesterol Direct 64 mg/dL (50-130) 07/18/21 16:00 HDL Cholesterol 33 mg/dL (40-59) L 07/18/21 16:00 Cholesterol/HDL Ratio 3.84 % 07/18/21 16:00 Procalcitonin < 0.05 ng/mL (<0.15) 07/26/21 13:53 TSH 0.469 mlU/mL (0.270-4.200) 07/21/21 04:52 Free T4 1.05 ng/dL (0.76-1.46) 07/21/21 04:52 Arterial Blood Glucose 162 mg/dL (65-95) H 07/29/21 04:00 Arterial Blood Ionized Calcium 4.4 mg/dL (4.6-5.3) L 07/29/21 04:00 Urine Color Yellow (Yellow) 07/18/21 Unknown Urine Turbidity Slightly-cloudy (Clear) 07/18/21 Unknown Urine pH 5.0 (5.0-7.0) 07/18/21 Unknown Ur Specific [place] 1.020 (1.003-1.030) 07/18/21 Unknown Urine Protein >500 mg/dL (Negative) 07/18/21 Unknown Urine Glucose (UA) Neg mg/dL (Negative) 07/18/21 Unknown Urine Ketones 20 mg/dL (Negative) 07/18/21 Unknown Urine Blood Neg (Negative) 07/18/21 Unknown Urine Nitrite Neg (Negative) 07/18/21 Unknown Urine Bilirubin Neg (Negative) 07/18/21 Unknown Urine Urobilinogen < 2.0 mg/dL (<2.0) 07/18/21 Unknown Ur Leukocyte Esterase Neg (Negative) 07/18/21 Unknown Urine WBC (Auto) 9.0 /HPF (0.0-6.0) H 07/18/21 Unknown Urine RBC (Auto) 2.0 /HPF (0.0-6.0) 07/18/21 Unknown U Epithel Cells (Auto) 1.0 /HPF (0-13.0) 07/18/21 Unknown Urine Bacteria (Auto) 1+ /HPF (Negative) 07/18/21 Unknown Amorphous Crystals Few 07/18/21 Unknown Urine Mucus Few /HPF 07/18/21 Unknown Vancomycin Trough 22.9 ug/mL (5.0-20.0) H 07/25/21 04:28 Salicylates < 0.3 mg/dL (2.8-20.0) L 07/18/21 16:00 Urine Opiates Screen Negative 07/18/21 Unknown Urine Methadone Screen Negative 07/18/21 Unknown Acetaminophen 5.7 ug/mL (10.0-30.0) L 07/18/21 16:00 Ur Barbiturates Screen Negative 07/18/21 Unknown Ur Phencyclidine Scrn Negative 07/18/21 Unknown Ur Amphetamines Screen Negative 07/18/21 Unknown U Benzodiazepines Scrn Negative 07/18/21 Unknown Urine Cocaine Screen Negative 07/18/21 Unknown U Marijuana (THC) Screen Negative 07/18/21 Unknown Drugs of Abuse Note Disclamer 07/18/21 Unknown Plasma/Serum Alcohol < 0.01 % (0-0.07) 07/18/21 16:00 Coronavirus (PCR) Positive (Negative) A 07/19/21 Unknown Blood Type O POSITIVE 07/18/21 16:05 Antibody Screen Negative 07/18/21 16:05 Guzman/IV: Voiding Method Indwelling Catheter Active Medications - Current Medications Current Medications: Generic Name Dose Route Start Last Admin Trade Name Freq PRN Reason Stop Dose Admin Acetaminophen 650 mg 07/18/21 22:49 Acetaminophen 325 Mg Tab PO Q4H PRN Pain MILD(1-3)/Fever >100.5/URENA Lipase/Protease/Amylase 1 each 07/18/21 22:56 Lipase 10,500/Protease 25,000/Amylase 43,750 (Units) Dr Cap FEEDTUBE PRN PRN For Clogged Feeding Tube Bisacodyl 10 mg 07/27/21 09:02 07/27/21 11:16 Bisacodyl 10 Mg Rect Supp CO 10 mg QDAY PRN Administration Constip unreliev by MOM/or NPO Enoxaparin Sodium 100 mg 07/19/21 10:00 07/30/21 09:00 Enoxaparin 100 Mg/1 Ml Inj SUB-Q 100 mg Q12HR NICOLE Administration Protocol Famotidine 20 mg 07/18/21 22:00 07/30/21 09:00 Famotidine 20 Mg/2 Ml Inj IV 20 mg BID NICOLE Administration Fentanyl 50 mcg 07/18/21 14:41 Fentanyl 100 Mcg/2 Ml Inj IV Q10MIN PRN ANALGESIA Hydralazine HCl 10 mg 07/29/21 09:00 07/30/21 13:10 Hydralazine 10 Mg Tab PO 10 mg Q8HR NICOLE Administration Hydrophilic Ointment 1 applic 07/18/21 14:41 Lip Therapy Vaseline TP Q2HR PRN Dry Lips Fentanyl Citrate 2,000 mcg in 100 mls @ 4.915 mls/hr 07/18/21 16:00 07/30/21 05:59 Fentanyl Drip Premix IV 2 mcg/kg/hr TITR NICOLE 9.83 mls/hr Administration Protocol 1 MCG/KG/HR Midazolam HCl 100 mg/ Sodium 100 mls @ 2 mls/hr 07/18/21 19:00 07/30/21 09:17 Chloride IV 3 mg/hr TITR NICOLE 3 mls/hr Titration Protocol 2 MG/HR Cefepime HCl 2 gm in 100 mls @ 200 mls/hr 07/25/21 14:00 07/30/21 13:11 Cefepime/Ns 2 Gm/100 Ml IV 08/02/21 06:29 200 mls/hr Q8H NICOLE Administration Protocol Insulin Glargine 5 units 07/27/21 22:00 07/29/21 22:10 Insulin Glargine 100 Units/Ml SUB-Q 5 units QHS NICOLE Administration Insulin Human Lispro 0 unit 07/27/21 12:00 07/30/21 13:11 Insulin Lispro 100 Unit/Ml SUB-Q 3 unit Q6HR NICOLE Administration Protocol Methylprednisolone Sodium Succinate 40 mg 07/27/21 14:00 07/30/21 13:11 Methylprednisolone Sod Succinate 40 Mg/1 Ml Inj IV 40 mg Q8HR NICOLE Administration Midazolam HCl 2 mg 07/18/21 18:11 07/22/21 07:56 Midazolam 2 Mg/2 Ml Inj IV 2 mg Q10MIN PRN Administration Sedation Multi-Ingred Cream/Lotion/Oil/Oint 1 applic 07/18/21 14:41 Mineral Oil/Petrolatum, White Ophth Oint 3.5 Gm OU Q4HR PRN Dry Eye(s) Ondansetron HCl 4 mg 07/18/21 22:49 Ondansetron 4 Mg/2 Ml Inj IV Q8H PRN Nausea And Vomiting Quetiapine Fumarate 25 mg 07/30/21 22:00 Quetiapine 25 Mg Tab PO QHS NICOLE Senna/Docusate Sodium 1 tab 07/18/21 22:00 07/30/21 09:00 Sennosides/Docusate Sodium 8.6/50 Mg Tab FEEDTUBE 1 tab BID NICOLE Administration Simple Syrup 15 ml 07/18/21 22:56 Simple Syrup 15 Ml FEEDTUBE PRN PRN Hypoglycemia Simple Syrup 30 ml 07/18/21 22:56 Simple Syrup 15 Ml FEEDTUBE PRN PRN Hypoglycemia Sodium Bicarbonate 325 mg 07/18/21 22:56 Sodium Bicarbonate 325 Mg Tab FEEDTUBE PRN PRN For Clogged Feeding Tube Sodium Chloride 10 ml 07/19/21 10:00 07/30/21 09:01 Sodium Chloride 0.9% 10 Ml Flush Syringe IV 10 ml BID NICOLE Administration Sodium Chloride 10 ml 07/18/21 22:49 Sodium Chloride 0.9% 10 Ml Flush Syringe IV PRN PRN LINE FLUSH Sodium Chloride 5 ml 07/20/21 14:38 Sodium Chloride 0.9% 1000 Ml Iv Soln IV PRN PRN ART-LINE Nutrition/Malnutrition Assess - Dietary Evaluation Nutrition/Malnutrition Findings: Nutrition Notes Start: 07/19/21 09:15 Freq: Status: Active Protocol: Document 07/29/21 11:53 MK (Rec: 07/29/21 11:55 MK [id number]) Nutrition Notes Initial or Follow up Reassessment Current Diagnosis Acute Kidney Injury,Diabetes, Hypertension,Respiratory Failure Other Pertinent Diagnosis COVID Current Diet Vital HP at 55 ml/hr Labs/Tests BUN 34 Pertinent Medications Solumedrol Height 5 ft 6 in Weight 104.8 kg [place] Body Weight (kg) 59.09 BMI 37.3 Weight Status Obese Subjective/Other Information TF remains at goal and pt tolerating. Percent of energy/protein needs met: 93%/98% Burn Absent Trauma Absent Difficulty In Swallowing Current % PO Negligible Minimum of two criteria No physical signs of malnutrition #1 Nutrition Diagnosis Inadequate oral intake Diagnosis Progress(for reassessment Continues documentation) Is patient on ventilator? Yes Is Patient Ambulatory and/or Out of Bed No REE-([facility]-confined to bed) 2000.624 Kcal/Kg value to use for calculation 14 Approximate Energy Requirements Using 1467 kcal/Kg Calculation Used for Recommendations Kcal/kg Additional Notes Protein: (>2g/kg IBW) >118g Fluid: 1 ml/kcal or per MD Nutrition Intervention Change Diet Order: Continue Vital HP Nutrition Support: Vital HP at 55 ml/hr Flush 50 ml q4h Kcal 1,320 Protein (gm) 116 Fluid (mL) 1,104 Goal #1 Meet at least 75% of protein and kcal needs via TF Anticipated Discharge Needs: Unable to determine at this time Follow-Up By: 08/03/21 Additional Comments F/u: TF tolerance and renal function
[2021-07-29] MEDS: INSULIN GLARGINE 100 UNITS/ML SUB-Q SCH (22:10)
[2021-07-30] MEDS: INSULIN LISPRO 100 UNIT/ML SUB-Q SCH ×4 (00:51→18:07)
[2021-07-30] MEDS: FREE WATER PO SCH ×5 (01:56→18:07)
--- NOTE | 2021-07-30 02:05 | XRay Report ---
CHEST 1 VIEW INDICATION: hypoxia. COMPARISON: One day prior. FINDINGS: Support devices: Unchanged. Heart: Stable. Lungs/Pleura: Pulmonary opacities are relatively stable. There is no pneumothorax. IMPRESSION: 1. No significant change. Signer Name: Shan Seth MD Signed: 07/30/2021 2:01 AM Workstation Name: [id number]
[2021-07-30] MEDS: MIDAZOLAM 100 MG in SODIUM CHLORIDE 0.9% 80 ML IV SCH (02:33)
[2021-07-30 05:29] LABS: Hematocrit 29.9 % (30.3-42.9); Mean Corpuscular HGB Conc 34 % (30-34); Mean Corpuscular Volume 87 fl (79-97); Platelet Count 180 K/mm3 (140-440); Red Blood Count 3.45 M/mm3 (3.65-5.03); Red Cell Distribution Width 14.9 % (13.2-15.2)
[2021-07-30] MEDS: hydrALAZINE 10 MG TAB PO SCH ×2 (05:42→13:10)
[2021-07-30] MEDS: CEFEPIME/NS 2 GM/100 ML 2 GM/100 ML BAG IV SCH ×3 (05:57→22:24)
[2021-07-30] MEDS: methylPREDNISolone Sod Succinate 40 MG/1 ML INJ IV SCH ×3 (05:57→22:26)
[2021-07-30] MEDS: fentaNYL DRIP Premix 2,000 MCG/100 ML BAG IV SCH ×2 (05:59→18:24)
[2021-07-30 06:00] LABS: Blood Urea Nitrogen 34 mg/dL (7-17); Hemolysis Index 2
[2021-07-30 06:02] LABS: BUN/Creatinine Ratio 57
[2021-07-30] MEDS: SENNOSIDES/DOCUSATE SODIUM 8.6/50 MG TAB FEEDTUBE SCH ×2 (09:00→22:25)
[2021-07-30] MEDS: FAMOTIDINE 20 MG/2 ML INJ IV SCH ×2 (09:00→22:25)
[2021-07-30] MEDS: ENOXAPARIN 100 MG/1 ML INJ SUB-Q SCH ×2 (09:00→22:24)
--- NOTE | 2021-07-30 09:12 | Progress Note ---
Assessment and Plan 55 y/o obese female with acute respiratory failure, pulmonary embolism, now with renal failure, most likely all secondary to COVID 19 07/30/21: Will wean PEEP to 10 this afternoon. If tolerates then around 6-8 PM may drop to 8. Would not go any further than that today. Keep FiO2 at 40%. Once PEEP around 6, can start to lighten sedation and try PSV trials. Prognosis is still guarded. Spoke with family over the phone to update them on progress but also explain to them their family member is still gravely ill. Keep steroids at current dose at leas through the weekend. 07/29/21: Wean FiO2 as tolerated. PaO2 is good. Continue current dose of steroids. Changed Hydralazine. Continue anticoagulation. May be able to start weaning PEEP tomorrow. 07/28/21: Repeat CXR today to check ET tube. Wean steroids when able. Continue to wean FiO2 as tolerated. Do not move PEEP until FiO2 is at 45-50%. Guarded prognosis remains. Will call family now. 07/27/21: Ok with advancing ET tube 2-3 cm. Continue to wean FiO2 as tolerated. Repeat CXR post advancement of ET tube. Dropped steroids too 40q8 07/26/21: Back down to 65% like on 07/22 but PEEP is at 12. Will monitor closely. COntinue current level of sedation and high dose steroids. Prognosis is very very guarded. 07/23/21: Dropped FiO2 to 70. Hopeful to wean back down. Keep peep elevated until FiO2 at 50-55%. Continue High dose steroids. Keep RASS at -4. Na is b sushila. Will stop D5W. Updated Daughter (Linda) and GodDaughter over the phone. If someone could please call them at least one day over the weekend I will call them again on Monday. Prognosis remains very guarded. Explained to them the high mortality rate associated with COVID and mechanical ventilation. 07/22/21: Dropped Fio2 to 65. Continue to wean for sats >88%. keep elevated peep until FiO2 around 50-55% so hopefully in the next 24-36 hours we can get there. Continue sedation to keep rass at -4. Continue high dose steroids. Will continue D5W for now until Free water can control sodium. need CBC in the am along with BMP. Prognosis still remains guarded. Continue lovenox 07/21/21: Dropped FiO2 to 80%. Continue to wean for sats >88%. Keep peep elevated until FiO2 around 50-55%. Continue remdesivir and adequate levels of sedation. Continue high dose steroids. No proning for now. Continue therapeutic lovenox. Prognosis remains guarded. 07/20/21: COVID positive. Started Remdesivir. Renal function improved. COntinue high dose steroids at current dosing for now. Suggest repeat ABG later this afternoon if able, may need art line but BP stable for now. No proning. Agree with therapeutic Lovenox. Guarded prognosis. 1. Follow up COVID testing, continue isolation 2. Agree with high dose IV steroids, if positive, will change to solumedrol 125q8 3. If positive then would need remdesivir and Actemra, hopefully still a candidate given bump in renal function 4. Unable to prone patient at moment, but did increase PEEP to 20 and ordered repeat ABG at 1400 5 Very very guarded prognosis CCT 31 minutes. Subjective Date of service: 07/30/21 Principal diagnosis: COVID pneumonia Interval history: Down to 40% and PEEP of 12. Stable BP's. Good urine output. No fevers. Objective Vital Signs - 12hr 07/29/21 07/29/21 07/29/21 21:15 21:31 21:45 Temperature Pulse Rate 38 L 40 L 39 L Respiratory 22 26 H 26 H Rate Blood Pressure 103/56 103/56 103/56 O2 Sat by Pulse 98 98 100 Oximetry 07/29/21 07/29/21 07/29/21 22:00 22:09 22:15 Temperature Pulse Rate 40 L 40 L 37 L Respiratory 26 H 26 H Rate Blood Pressure 96/50 90/39 96/50 O2 Sat by Pulse 98 99 Oximetry 07/29/21 07/29/21 07/29/21 22:31 22:45 23:00 Temperature Pulse Rate 45 L 49 L 48 L Respiratory 26 H 26 H 26 H Rate Blood Pressure 96/50 96/50 146/80 O2 Sat by Pulse 100 100 100 Oximetry 07/29/21 07/29/21 07/29/21 23:15 23:31 23:45 Temperature Pulse Rate 49 L 51 L 50 L Respiratory 26 H 26 H 26 H Rate Blood Pressure 146/80 146/80 146/80 O2 Sat by Pulse 100 99 99 Oximetry 07/30/21 07/30/21 07/30/21 00:00 00:15 00:17 Temperature 97.6 F Pulse Rate 54 L 60 62 Respiratory 26 H 26 H Rate Blood Pressure 148/81 148/81 148/81 O2 Sat by Pulse 100 100 100 Oximetry 07/30/21 07/30/21 07/30/21 00:31 00:45 01:00 Temperature Pulse Rate 72 100 H 83 Respiratory 22 19 25 H Rate Blood Pressure 148/81 148/81 162/85 O2 Sat by Pulse 99 99 97 Oximetry 07/30/21 07/30/21 07/30/21 01:15 01:31 01:45 Temperature Pulse Rate 107 H 64 59 L Respiratory 22 26 H 26 H Rate Blood Pressure 162/85 162/85 162/85 O2 Sat by Pulse 96 96 96 Oximetry 07/30/21 07/30/21 07/30/21 02:01 02:15 02:31 Temperature Pulse Rate 61 60 56 L Respiratory 26 H 26 H 26 H Rate Blood Pressure 124/61 124/61 124/61 O2 Sat by Pulse 96 97 98 Oximetry 07/30/21 07/30/21 07/30/21 02:45 03:00 03:15 Temperature Pulse Rate 52 L 50 L 53 L Respiratory 26 H 26 H 26 H Rate Blood Pressure 124/61 119/64 124/61 O2 Sat by Pulse 98 97 100 Oximetry 07/30/21 07/30/21 07/30/21 03:31 03:45 04:00 Temperature 98.2 F Pulse Rate 50 L 49 L 46 L Respiratory 26 H 26 H 26 H Rate Blood Pressure 124/61 124/61 107/55 O2 Sat by Pulse 99 99 97 Oximetry 07/30/21 07/30/21 07/30/21 04:15 04:16 04:31 Temperature Pulse Rate 44 L 44 L 44 L Respiratory 26 H 26 H Rate Blood Pressure 107/55 107/55 107/55 O2 Sat by Pulse 98 97 97 Oximetry 07/30/21 07/30/21 07/30/21 04:45 05:00 05:15 Temperature Pulse Rate 44 L 44 L 48 L Respiratory 26 H 26 H 26 H Rate Blood Pressure 107/55 111/56 111/56 O2 Sat by Pulse 97 96 97 Oximetry 07/30/21 07/30/21 07/30/21 05:31 05:42 05:45 Temperature Pulse Rate 44 L 45 L 45 L Respiratory 26 H 26 H Rate Blood Pressure 111/56 90/35 111/56 O2 Sat by Pulse 98 98 Oximetry 07/30/21 07/30/21 07/30/21 06:00 06:15 06:31 Temperature Pulse Rate 44 L 48 L 49 L Respiratory 26 H 26 H 26 H Rate Blood Pressure 102/51 102/51 102/51 O2 Sat by Pulse 98 98 98 Oximetry 07/30/21 07/30/21 07/30/21 06:45 07:01 07:04 Temperature 99.3 F Pulse Rate 53 L 55 L Respiratory 26 H 26 H Rate Blood Pressure 102/51 136/76 O2 Sat by Pulse 98 97 Oximetry 07/30/21 07/30/21 07/30/21 07:15 07:31 07:45 Temperature Pulse Rate 51 L 50 L 51 L Respiratory 26 H 26 H 26 H Rate Blood Pressure 136/76 136/76 136/76 O2 Sat by Pulse 99 98 98 Oximetry 07/30/21 07/30/21 07/30/21 08:00 08:15 08:31 Temperature Pulse Rate 53 L 54 L 55 L Respiratory 26 H 26 H 26 H Rate Blood Pressure 139/75 139/75 139/75 O2 Sat by Pulse 95 97 97 Oximetry 07/30/21 08:45 Temperature Pulse Rate 60 Respiratory 26 H Rate Blood Pressure 139/75 O2 Sat by Pulse 98 Oximetry Constitutional: no acute distress, comatose ENT: other (orally intubated and sedated) Ascultation: Bilateral: diminished breath sounds Cardiovascular: regular rate and rhythm Gastrointestinal: normoactive bowel sounds, soft, non-tender Integumentary: normal Extremities: no cyanosis Neurologic: other (Sedated) CBC and BMP: 07/30/21 05:00 07/30/21 05:00 ABG, PT/INR, D-dimer: ABG ABG pH 7.510 (7.320-7.450) H 07/29/21 04:00 POC ABG pCO2 38.1 mmHg (32.0-48.0) 07/29/21 04:00 ABG pCO2 35.2 mm Hg 07/19/21 Unknown POC ABG pO2 113.0 mmHg (83-108) H 07/29/21 04:00 ABG pO2 64.2 mm Hg (80.0-90.0) L 07/19/21 Unknown POC ABG HCO3 29.7 07/29/21 04:00 ABG O2 Saturation 98.0 (0-100) 07/29/21 04:00 PT/INR, D-dimer PT 15.1 Sec. (12.2-14.9) H 07/18/21 16:00 INR 1.13 (0.87-1.13) 07/18/21 16:00 D-Dimer 1818.72 ng/mlDDU (0-234) H 07/30/21 05:00 Abnormal lab findings: Abnormal Labs 07/18/21 07/18/21 07/18/21 16:00 16:00 16:00 WBC RBC Hgb Hct RDW 15.3 H Lymph % (Auto) 7.9 L Lymph # (Auto) 0.8 L Seg Neutrophils % 86.3 H Seg Neuts % (Manual) Lymphocytes % (Manual) Nucleated RBC % Seg Neutrophils # 9.0 H Seg Neutrophils # Man Lymphocytes # (Manual) Monocytes # (Manual) PT 15.1 H D-Dimer > 73836 H ABG pH POC ABG pCO2 POC ABG pO2 ABG pO2 ABG O2 Saturation ABG Base Excess ABG Hemoglobin ABG Oxyhemoglobin ABG Sodium ABG Chloride ABG Glucose Oxyhemoglobin Carboxyhemoglobin Sodium Potassium 3.5 L Chloride Carbon Dioxide 20 L BUN 19 H Creatinine Glucose 140 H POC Glucose Calcium Magnesium Ferritin AST 43 H Lactate Dehydrogenase 705 H Total Creatine Kinase 157 H Troponin T 0.106 H* C-Reactive Protein 33.00 H Total Protein Albumin 3.2 L Triglycerides 156 H HDL Cholesterol 33 L Arterial Blood Glucose Arterial Blood Ionized Calcium Urine WBC (Auto) Vancomycin Trough Salicylates Acetaminophen Coronavirus (PCR) 07/18/21 07/18/21 07/18/21 16:00 16:00 16:00 WBC RBC Hgb Hct RDW Lymph % (Auto) Lymph # (Auto) Seg Neutrophils % Seg Neuts % (Manual) Lymphocytes % (Manual) Nucleated RBC % Seg Neutrophils # Seg Neutrophils # Man Lymphocytes # (Manual) Monocytes # (Manual) PT D-Dimer ABG pH POC ABG pCO2 POC ABG pO2 ABG pO2 ABG O2 Saturation ABG Base Excess ABG Hemoglobin ABG Oxyhemoglobin ABG Sodium ABG Chloride ABG Glucose Oxyhemoglobin Carboxyhemoglobin Sodium Potassium Chloride Carbon Dioxide BUN Creatinine Glucose POC Glucose Calcium Magnesium Ferritin 657.0 H AST Lactate Dehydrogenase Total Creatine Kinase Troponin T C-Reactive Protein Total Protein Albumin Triglycerides HDL Cholesterol Arterial Blood Glucose Arterial Blood Ionized Calcium Urine WBC (Auto) Vancomycin Trough Salicylates < 0.3 L Acetaminophen 5.7 L Coronavirus (PCR) 07/18/21 07/18/21 07/19/21 Unknown Unknown 04:33 WBC RBC Hgb Hct RDW Lymph % (Auto) Lymph # (Auto) Seg Neutrophils % Seg Neuts % (Manual) Lymphocytes % (Manual) Nucleated RBC % Seg Neutrophils # Seg Neutrophils # Man Lymphocytes # (Manual) Monocytes # (Manual) PT D-Dimer ABG pH 7.275 L POC ABG pCO2 POC ABG pO2 68.7 L 53.1 L ABG pO2 ABG O2 Saturation ABG Base Excess ABG Hemoglobin ABG Oxyhemoglobin 88.3 L 85.3 L ABG Sodium ABG Chloride 109.0 H ABG Glucose 170 H 150 H Oxyhemoglobin Carboxyhemoglobin 0 L 0.3 L Sodium Potassium Chloride Carbon Dioxide BUN Creatinine Glucose POC Glucose Calcium Magnesium Ferritin AST Lactate Dehydrogenase Total Creatine Kinase Troponin T C-Reactive Protein Total Protein Albumin Triglycerides HDL Cholesterol Arterial Blood Glucose 170 H 150 H Arterial Blood Ionized Calcium Urine WBC (Auto) 9.0 H Vancomycin Trough Salicylates Acetaminophen Coronavirus (PCR) 07/19/21 07/19/21 07/19/21 04:59 04:59 Unknown WBC RBC Hgb Hct RDW 16.0 H Lymph % (Auto) 10.7 L Lymph # (Auto) 1.1 L Seg Neutrophils % 84.3 H Seg Neuts % (Manual) Lymphocytes % (Manual) Nucleated RBC % Seg Neutrophils # 8.7 H Seg Neutrophils # Man Lymphocytes # (Manual) Monocytes # (Manual) PT D-Dimer ABG pH POC ABG pCO2 POC ABG pO2 ABG pO2 ABG O2 Saturation ABG Base Excess ABG Hemoglobin ABG Oxyhemoglobin ABG Sodium ABG Chloride ABG Glucose Oxyhemoglobin Carboxyhemoglobin Sodium Potassium Chloride 108.8 H Carbon Dioxide 21 L BUN 28 H Creatinine 1.8 H Glucose 145 H POC Glucose Calcium 7.8 L Magnesium Ferritin AST Lactate Dehydrogenase Total Creatine Kinase Troponin T C-Reactive Protein Total Protein 6.2 L Albumin 3.2 L Triglycerides HDL Cholesterol Arterial Blood Glucose Arterial Blood Ionized Calcium Urine WBC (Auto) Vancomycin Trough Salicylates Acetaminophen Coronavirus (PCR) Positive A 07/19/21 07/20/21 07/20/21 Unknown 00:14 04:44 WBC RBC Hgb Hct RDW Lymph % (Auto) Lymph # (Auto) Seg Neutrophils % Seg Neuts % (Manual) Lymphocytes % (Manual) Nucleated RBC % Seg Neutrophils # Seg Neutrophils # Man Lymphocytes # (Manual) Monocytes # (Manual) PT D-Dimer ABG pH POC ABG pCO2 POC ABG pO2 ABG pO2 64.2 L ABG O2 Saturation 93.2 L ABG Base Excess -4.5 L ABG Hemoglobin 11.0 L ABG Oxyhemoglobin ABG Sodium ABG Chloride ABG Glucose Oxyhemoglobin 91.9 L Carboxyhemoglobin Sodium Potassium Chloride 112.2 H Carbon Dioxide BUN 38 H Creatinine 1.3 H Glucose 156 H POC Glucose 164 H Calcium 8.1 L Magnesium 3.10 H Ferritin AST Lactate Dehydrogenase Total Creatine Kinase Troponin T C-Reactive Protein Total Protein Albumin 2.8 L Triglycerides HDL Cholesterol Arterial Blood Glucose Arterial Blood Ionized Calcium Urine WBC (Auto) Vancomycin Trough Salicylates Acetaminophen Coronavirus (PCR) 07/20/21 07/20/21 07/20/21 04:44 05:00 05:40 WBC RBC 3.42 L Hgb 9.7 L Hct 29.3 L RDW 16.1 H Lymph % (Auto) Lymph # (Auto) Seg Neutrophils % Seg Neuts % (Manual) Lymphocytes % (Manual) Nucleated RBC % Seg Neutrophils # Seg Neutrophils # Man Lymphocytes # (Manual) Monocytes # (Manual) PT D-Dimer ABG pH POC ABG pCO2 POC ABG pO2 139.0 H ABG pO2 ABG O2 Saturation ABG Base Excess ABG Hemoglobin 10.1 L ABG Oxyhemoglobin ABG Sodium ABG Chloride 113.0 H ABG Glucose 155 H Oxyhemoglobin Carboxyhemoglobin 0.3 L Sodium Potassium Chloride Carbon Dioxide BUN Creatinine Glucose POC Glucose 164 H Calcium Magnesium Ferritin AST Lactate Dehydrogenase Total Creatine Kinase Troponin T C-Reactive Protein Total Protein Albumin Triglycerides HDL Cholesterol Arterial Blood Glucose 155 H Arterial Blood Ionized Calcium 4.4 L Urine WBC (Auto) Vancomycin Trough Salicylates Acetaminophen Coronavirus (PCR) 07/20/21 07/20/21 07/21/21 11:40 17:48 03:31 WBC RBC Hgb Hct RDW Lymph % (Auto) Lymph # (Auto) Seg Neutrophils % Seg Neuts % (Manual) Lymphocytes % (Manual) Nucleated RBC % Seg Neutrophils # Seg Neutrophils # Man Lymphocytes # (Manual) Monocytes # (Manual) PT D-Dimer ABG pH POC ABG pCO2 POC ABG pO2 ABG pO2 ABG O2 Saturation ABG Base Excess ABG Hemoglobin ABG Oxyhemoglobin ABG Sodium ABG Chloride ABG Glucose Oxyhemoglobin Carboxyhemoglobin Sodium Potassium Chloride Carbon Dioxide BUN Creatinine Glucose POC Glucose 137 H 143 H 157 H Calcium Magnesium Ferritin AST Lactate Dehydrogenase Total Creatine Kinase Troponin T C-Reactive Protein Total Protein Albumin Triglycerides HDL Cholesterol Arterial Blood Glucose Arterial Blood Ionized Calcium Urine WBC (Auto) Vancomycin Trough Salicylates Acetaminophen Coronavirus (PCR) 07/21/21 07/21/21 07/21/21 04:30 04:52 05:21 WBC RBC Hgb Hct RDW Lymph % (Auto) Lymph # (Auto) Seg Neutrophils % Seg Neuts % (Manual) Lymphocytes % (Manual) Nucleated RBC % Seg Neutrophils # Seg Neutrophils # Man Lymphocytes # (Manual) Monocytes # (Manual) PT D-Dimer ABG pH POC ABG pCO2 31.7 L POC ABG pO2 77.6 L ABG pO2 ABG O2 Saturation ABG Base Excess ABG Hemoglobin 10.2 L ABG Oxyhemoglobin ABG Sodium 148.3 H ABG Chloride 120.0 H ABG Glucose 168 H Oxyhemoglobin Carboxyhemoglobin 0.2 L Sodium 150 H Potassium Chloride 115.7 H Carbon Dioxide BUN 49 H Creatinine 1.4 H Glucose 185 H POC Glucose 170 H Calcium 8.3 L Magnesium Ferritin AST Lactate Dehydrogenase Total Creatine Kinase Troponin T C-Reactive Protein Total Protein Albumin 3.0 L Triglycerides HDL Cholesterol Arterial Blood Glucose 168 H Arterial Blood Ionized Calcium 4.4 L Urine WBC (Auto) Vancomycin Trough Salicylates Acetaminophen Coronavirus (PCR) 07/21/21 07/21/21 07/21/21 11:17 17:26 23:40 WBC RBC Hgb Hct RDW Lymph % (Auto) Lymph # (Auto) Seg Neutrophils % Seg Neuts % (Manual) Lymphocytes % (Manual) Nucleated RBC % Seg Neutrophils # Seg Neutrophils # Man Lymphocytes # (Manual) Monocytes # (Manual) PT D-Dimer ABG pH POC ABG pCO2 POC ABG pO2 ABG pO2 ABG O2 Saturation ABG Base Excess ABG Hemoglobin ABG Oxyhemoglobin ABG Sodium ABG Chloride ABG Glucose Oxyhemoglobin Carboxyhemoglobin Sodium Potassium Chloride Carbon Dioxide BUN Creatinine Glucose POC Glucose 176 H 184 H 161 H Calcium Magnesium Ferritin AST Lactate Dehydrogenase Total Creatine Kinase Troponin T C-Reactive Protein Total Protein Albumin Triglycerides HDL Cholesterol Arterial Blood Glucose Arterial Blood Ionized Calcium Urine WBC (Auto) Vancomycin Trough Salicylates Acetaminophen Coronavirus (PCR) 07/22/21 07/22/21 07/22/21 03:30 04:39 05:29 WBC RBC Hgb Hct RDW Lymph % (Auto) Lymph # (Auto) Seg Neutrophils % Seg Neuts % (Manual) Lymphocytes % (Manual) Nucleated RBC % Seg Neutrophils # Seg Neutrophils # Man Lymphocytes # (Manual) Monocytes # (Manual) PT D-Dimer ABG pH POC ABG pCO2 POC ABG pO2 67.4 L ABG pO2 ABG O2 Saturation ABG Base Excess ABG Hemoglobin 10.4 L ABG Oxyhemoglobin 91.8 L ABG Sodium 118.4 L ABG Chloride 114.0 H ABG Glucose 189 H Oxyhemoglobin Carboxyhemoglobin 0.2 L Sodium 146 H Potassium Chloride 112.8 H Carbon Dioxide 21 L BUN 46 H Creatinine Glucose 191 H POC Glucose 191 H Calcium Magnesium Ferritin AST Lactate Dehydrogenase Total Creatine Kinase Troponin T C-Reactive Protein Total Protein Albumin 2.9 L Triglycerides HDL Cholesterol Arterial Blood Glucose 189 H Arterial Blood Ionized Calcium 4.5 L Urine WBC (Auto) Vancomycin Trough Salicylates Acetaminophen Coronavirus (PCR) 07/22/21 07/22/21 07/22/21 12:17 17:54 23:34 WBC RBC Hgb Hct RDW Lymph % (Auto) Lymph # (Auto) Seg Neutrophils % Seg Neuts % (Manual) Lymphocytes % (Manual) Nucleated RBC % Seg Neutrophils # Seg Neutrophils # Man Lymphocytes # (Manual) Monocytes # (Manual) PT D-Dimer ABG pH POC ABG pCO2 POC ABG pO2 ABG pO2 ABG O2 Saturation ABG Base Excess ABG Hemoglobin ABG Oxyhemoglobin ABG Sodium ABG Chloride ABG Glucose Oxyhemoglobin Carboxyhemoglobin Sodium Potassium Chloride Carbon Dioxide BUN Creatinine Glucose POC Glucose 206 H 213 H 164 H Calcium Magnesium Ferritin AST Lactate Dehydrogenase Total Creatine Kinase Troponin T C-Reactive Protein Total Protein Albumin Triglycerides HDL Cholesterol Arterial Blood Glucose Arterial Blood Ionized Calcium Urine WBC (Auto) Vancomycin Trough Salicylates Acetaminophen Coronavirus (PCR) 07/23/21 07/23/21 07/23/21 03:30 05:21 09:02 WBC RBC Hgb Hct RDW Lymph % (Auto) Lymph # (Auto) Seg Neutrophils % Seg Neuts % (Manual) Lymphocytes % (Manual) Nucleated RBC % Seg Neutrophils # Seg Neutrophils # Man Lymphocytes # (Manual) Monocytes # (Manual) PT D-Dimer ABG pH POC ABG pCO2 POC ABG pO2 70.9 L ABG pO2 ABG O2 Saturation ABG Base Excess ABG Hemoglobin 10.9 L ABG Oxyhemoglobin 92.9 L ABG Sodium 130.2 L ABG Chloride 109.0 H ABG Glucose 177 H Oxyhemoglobin Carboxyhemoglobin 0.1 L Sodium Potassium 5.1 H Chloride Carbon Dioxide BUN 32 H Creatinine Glucose 200 H POC Glucose 191 H Calcium Magnesium Ferritin AST Lactate Dehydrogenase Total Creatine Kinase Troponin T C-Reactive Protein Total Protein Albumin Triglycerides HDL Cholesterol Arterial Blood Glucose 177 H Arterial Blood Ionized Calcium 4.3 L Urine WBC (Auto) Vancomycin Trough Salicylates Acetaminophen Coronavirus (PCR) 07/23/21 07/23/21 07/23/21 09:02 11:34 17:52 WBC 13.8 H RBC Hgb Hct RDW 15.7 H Lymph % (Auto) Lymph # (Auto) Seg Neutrophils % Seg Neuts % (Manual) Lymphocytes % (Manual) Nucleated RBC % Seg Neutrophils # Seg Neutrophils # Man Lymphocytes # (Manual) Monocytes # (Manual) PT D-Dimer ABG pH POC ABG pCO2 POC ABG pO2 ABG pO2 ABG O2 Saturation ABG Base Excess ABG Hemoglobin ABG Oxyhemoglobin ABG Sodium ABG Chloride ABG Glucose Oxyhemoglobin Carboxyhemoglobin Sodium Potassium Chloride Carbon Dioxide BUN Creatinine Glucose POC Glucose 208 H 158 H Calcium Magnesium Ferritin AST Lactate Dehydrogenase Total Creatine Kinase Troponin T C-Reactive Protein Total Protein Albumin Triglycerides HDL Cholesterol Arterial Blood Glucose Arterial Blood Ionized Calcium Urine WBC (Auto) Vancomycin Trough Salicylates Acetaminophen Coronavirus (PCR) 07/23/21 07/24/21 07/24/21 23:28 03:06 05:01 WBC RBC Hgb Hct RDW Lymph % (Auto) Lymph # (Auto) Seg Neutrophils % Seg Neuts % (Manual) Lymphocytes % (Manual) Nucleated RBC % Seg Neutrophils # Seg Neutrophils # Man Lymphocytes # (Manual) Monocytes # (Manual) PT D-Dimer ABG pH POC ABG pCO2 POC ABG pO2 51.1 L ABG pO2 ABG O2 Saturation ABG Base Excess ABG Hemoglobin ABG Oxyhemoglobin 85.0 L ABG Sodium 135.5 L ABG Chloride ABG Glucose 131 H Oxyhemoglobin Carboxyhemoglobin 0.4 L Sodium Potassium Chloride Carbon Dioxide BUN 29 H Creatinine Glucose 132 H POC Glucose 142 H Calcium 7.8 L Magnesium Ferritin AST Lactate Dehydrogenase Total Creatine Kinase Troponin T C-Reactive Protein Total Protein Albumin Triglycerides HDL Cholesterol Arterial Blood Glucose 131 H Arterial Blood Ionized Calcium 4.5 L Urine WBC (Auto) Vancomycin Trough Salicylates Acetaminophen Coronavirus (PCR) 07/24/21 07/24/21 07/24/21 05:06 11:38 17:26 WBC RBC Hgb Hct RDW Lymph % (Auto) Lymph # (Auto) Seg Neutrophils % Seg Neuts % (Manual) Lymphocytes % (Manual) Nucleated RBC % Seg Neutrophils # Seg Neutrophils # Man Lymphocytes # (Manual) Monocytes # (Manual) PT D-Dimer ABG pH POC ABG pCO2 POC ABG pO2 ABG pO2 ABG O2 Saturation ABG Base Excess ABG Hemoglobin ABG Oxyhemoglobin ABG Sodium ABG Chloride ABG Glucose Oxyhemoglobin Carboxyhemoglobin Sodium Potassium Chloride Carbon Dioxide BUN Creatinine Glucose POC Glucose 125 H 215 H 173 H Calcium Magnesium Ferritin AST Lactate Dehydrogenase Total Creatine Kinase Troponin T C-Reactive Protein Total Protein Albumin Triglycerides HDL Cholesterol Arterial Blood Glucose Arterial Blood Ionized Calcium Urine WBC (Auto) Vancomycin Trough Salicylates Acetaminophen Coronavirus (PCR) 07/24/21 07/25/21 07/25/21 23:23 03:33 04:28 WBC RBC Hgb Hct RDW Lymph % (Auto) Lymph # (Auto) Seg Neutrophils % Seg Neuts % (Manual) Lymphocytes % (Manual) Nucleated RBC % Seg Neutrophils # Seg Neutrophils # Man Lymphocytes # (Manual) Monocytes # (Manual) PT D-Dimer ABG pH POC ABG pCO2 POC ABG pO2 ABG pO2 ABG O2 Saturation ABG Base Excess ABG Hemoglobin ABG Oxyhemoglobin ABG Sodium 135.6 L ABG Chloride ABG Glucose 174 H Oxyhemoglobin Carboxyhemoglobin 0.1 L Sodium Potassium 5.1 H Chloride 107.7 H Carbon Dioxide BUN 29 H Creatinine Glucose 164 H POC Glucose 133 H Calcium 7.3 L Magnesium Ferritin AST Lactate Dehydrogenase Total Creatine Kinase Troponin T C-Reactive Protein Total Protein Albumin Triglycerides HDL Cholesterol Arterial Blood Glucose 174 H Arterial Blood Ionized Calcium Urine WBC (Auto) Vancomycin Trough Salicylates Acetaminophen Coronavirus (PCR) 07/25/21 07/25/21 07/25/21 04:28 04:28 05:17 WBC 14.9 H RBC Hgb Hct RDW 15.6 H Lymph % (Auto) Lymph # (Auto) Seg Neutrophils % Seg Neuts % (Manual) 92.0 H Lymphocytes % (Manual) 2.0 L Nucleated RBC % Seg Neutrophils # Seg Neutrophils # Man 13.7 H Lymphocytes # (Manual) 0.3 L Monocytes # (Manual) PT D-Dimer ABG pH POC ABG pCO2 POC ABG pO2 ABG pO2 ABG O2 Saturation ABG Base Excess ABG Hemoglobin ABG Oxyhemoglobin ABG Sodium ABG Chloride ABG Glucose Oxyhemoglobin Carboxyhemoglobin Sodium Potassium Chloride Carbon Dioxide BUN Creatinine Glucose POC Glucose 173 H Calcium Magnesium Ferritin AST Lactate Dehydrogenase Total Creatine Kinase Troponin T C-Reactive Protein Total Protein Albumin Triglycerides HDL Cholesterol Arterial Blood Glucose Arterial Blood Ionized Calcium Urine WBC (Auto) Vancomycin Trough 22.9 H Salicylates Acetaminophen Coronavirus (PCR) 07/25/21 07/25/21 07/25/21 11:29 17:00 23:46 WBC RBC Hgb Hct RDW Lymph % (Auto) Lymph # (Auto) Seg Neutrophils % Seg Neuts % (Manual) Lymphocytes % (Manual) Nucleated RBC % Seg Neutrophils # Seg Neutrophils # Man Lymphocytes # (Manual) Monocytes # (Manual) PT D-Dimer ABG pH POC ABG pCO2 POC ABG pO2 ABG pO2 ABG O2 Saturation ABG Base Excess ABG Hemoglobin ABG Oxyhemoglobin ABG Sodium ABG Chloride ABG Glucose Oxyhemoglobin Carboxyhemoglobin Sodium Potassium Chloride Carbon Dioxide BUN Creatinine Glucose POC Glucose 191 H 184 H 192 H Calcium Magnesium Ferritin AST Lactate Dehydrogenase Total Creatine Kinase Troponin T C-Reactive Protein Total Protein Albumin Triglycerides HDL Cholesterol Arterial Blood Glucose Arterial Blood Ionized Calcium Urine WBC (Auto) Vancomycin Trough Salicylates Acetaminophen Coronavirus (PCR) 07/26/21 07/26/21 07/26/21 03:17 05:33 06:07 WBC 18.0 H RBC Hgb Hct RDW 15.6 H Lymph % (Auto) Lymph # (Auto) Seg Neutrophils % Seg Neuts % (Manual) 87.0 H Lymphocytes % (Manual) 5.0 L Nucleated RBC % Seg Neutrophils # Seg Neutrophils # Man 15.7 H Lymphocytes # (Manual) 0.9 L Monocytes # (Manual) 1.1 H PT D-Dimer ABG pH POC ABG pCO2 POC ABG pO2 73.7 L ABG pO2 ABG O2 Saturation ABG Base Excess ABG Hemoglobin 11.8 L ABG Oxyhemoglobin 93.6 L ABG Sodium ABG Chloride ABG Glucose 183 H Oxyhemoglobin Carboxyhemoglobin 0.2 L Sodium Potassium Chloride Carbon Dioxide BUN Creatinine Glucose POC Glucose 172 H Calcium Magnesium Ferritin AST Lactate Dehydrogenase Total Creatine Kinase Troponin T C-Reactive Protein Total Protein Albumin Triglycerides HDL Cholesterol Arterial Blood Glucose 183 H Arterial Blood Ionized Calcium Urine WBC (Auto) Vancomycin Trough Salicylates Acetaminophen Coronavirus (PCR) 07/26/21 07/26/21 07/26/21 06:07 11:46 13:53 WBC RBC Hgb Hct RDW Lymph % (Auto) Lymph # (Auto) Seg Neutrophils % Seg Neuts % (Manual) Lymphocytes % (Manual) Nucleated RBC % Seg Neutrophils # Seg Neutrophils # Man Lymphocytes # (Manual) Monocytes # (Manual) PT D-Dimer 6992.45 H ABG pH POC ABG pCO2 POC ABG pO2 ABG pO2 ABG O2 Saturation ABG Base Excess ABG Hemoglobin ABG Oxyhemoglobin ABG Sodium ABG Chloride ABG Glucose Oxyhemoglobin Carboxyhemoglobin Sodium Potassium 5.4 H Chloride Carbon Dioxide BUN 33 H Creatinine Glucose 155 H POC Glucose 142 H Calcium 8.3 L Magnesium Ferritin AST Lactate Dehydrogenase Total Creatine Kinase Troponin T C-Reactive Protein Total Protein Albumin Triglycerides HDL Cholesterol Arterial Blood Glucose Arterial Blood Ionized Calcium Urine WBC (Auto) Vancomycin Trough Salicylates Acetaminophen Coronavirus (PCR) 07/26/21 07/26/21 07/26/21 13:53 14:16 17:29 WBC RBC Hgb Hct RDW Lymph % (Auto) Lymph # (Auto) Seg Neutrophils % Seg Neuts % (Manual) Lymphocytes % (Manual) Nucleated RBC % Seg Neutrophils # Seg Neutrophils # Man Lymphocytes # (Manual) Monocytes # (Manual) PT D-Dimer ABG pH POC ABG pCO2 POC ABG pO2 ABG pO2 ABG O2 Saturation ABG Base Excess ABG Hemoglobin ABG Oxyhemoglobin ABG Sodium ABG Chloride ABG Glucose Oxyhemoglobin Carboxyhemoglobin Sodium Potassium Chloride Carbon Dioxide BUN Creatinine Glucose 200 H POC Glucose 185 H Calcium Magnesium Ferritin 348.4 H AST Lactate Dehydrogenase 515 H Total Creatine Kinase Troponin T C-Reactive Protein Total Protein Albumin Triglycerides HDL Cholesterol Arterial Blood Glucose Arterial Blood Ionized Calcium Urine WBC (Auto) Vancomycin Trough Salicylates Acetaminophen Coronavirus (PCR) 07/26/21 07/27/21 07/27/21 23:30 04:00 04:48 WBC 16.5 H RBC Hgb Hct RDW Lymph % (Auto) Lymph # (Auto) Seg Neutrophils % Seg Neuts % (Manual) 92.0 H Lymphocytes % (Manual) 3.0 L Nucleated RBC % 1.0 H Seg Neutrophils # Seg Neutrophils # Man 15.2 H Lymphocytes # (Manual) 0.5 L Monocytes # (Manual) PT D-Dimer ABG pH 7.481 H POC ABG pCO2 POC ABG pO2 70.4 L ABG pO2 ABG O2 Saturation ABG Base Excess ABG Hemoglobin 11.6 L ABG Oxyhemoglobin ABG Sodium 131.9 L ABG Chloride ABG Glucose 207 H Oxyhemoglobin Carboxyhemoglobin Sodium Potassium Chloride Carbon Dioxide BUN Creatinine Glucose POC Glucose 186 H Calcium Magnesium Ferritin AST Lactate Dehydrogenase Total Creatine Kinase Troponin T C-Reactive Protein Total Protein Albumin Triglycerides HDL Cholesterol Arterial Blood Glucose 207 H Arterial Blood Ionized Calcium Urine WBC (Auto) Vancomycin Trough Salicylates Acetaminophen Coronavirus (PCR) 07/27/21 07/27/21 07/27/21 04:48 05:04 11:36 WBC RBC Hgb Hct RDW Lymph % (Auto) Lymph # (Auto) Seg Neutrophils % Seg Neuts % (Manual) Lymphocytes % (Manual) Nucleated RBC % Seg Neutrophils # Seg Neutrophils # Man Lymphocytes # (Manual) Monocytes # (Manual) PT D-Dimer ABG pH POC ABG pCO2 POC ABG pO2 ABG pO2 ABG O2 Saturation ABG Base Excess ABG Hemoglobin ABG Oxyhemoglobin ABG Sodium ABG Chloride ABG Glucose Oxyhemoglobin Carboxyhemoglobin Sodium Potassium Chloride Carbon Dioxide BUN 35 H Creatinine Glucose 216 H POC Glucose 201 H 142 H Calcium Magnesium Ferritin AST Lactate Dehydrogenase Total Creatine Kinase Troponin T C-Reactive Protein Total Protein Albumin Triglycerides HDL Cholesterol Arterial Blood Glucose Arterial Blood Ionized Calcium Urine WBC (Auto) Vancomycin Trough Salicylates Acetaminophen Coronavirus (PCR) 07/27/21 07/27/21 07/28/21 18:14 22:03 04:00 WBC RBC Hgb Hct RDW Lymph % (Auto) Lymph # (Auto) Seg Neutrophils % Seg Neuts % (Manual) Lymphocytes % (Manual) Nucleated RBC % Seg Neutrophils # Seg Neutrophils # Man Lymphocytes # (Manual) Monocytes # (Manual) PT D-Dimer ABG pH 7.491 H POC ABG pCO2 POC ABG pO2 109.2 H ABG pO2 ABG O2 Saturation ABG Base Excess ABG Hemoglobin ABG Oxyhemoglobin ABG Sodium 133.9 L ABG Chloride ABG Glucose 163 H Oxyhemoglobin Carboxyhemoglobin Sodium Potassium Chloride Carbon Dioxide BUN Creatinine Glucose POC Glucose 166 H 149 H Calcium Magnesium Ferritin AST Lactate Dehydrogenase Total Creatine Kinase Troponin T C-Reactive Protein Total Protein Albumin Triglycerides HDL Cholesterol Arterial Blood Glucose 163 H Arterial Blood Ionized Calcium Urine WBC (Auto) Vancomycin Trough Salicylates Acetaminophen Coronavirus (PCR) 07/28/21 07/28/21 07/28/21 04:10 04:10 04:10 WBC RBC Hgb Hct RDW Lymph % (Auto) Lymph # (Auto) Seg Neutrophils % Seg Neuts % (Manual) Lymphocytes % (Manual) Nucleated RBC % Seg Neutrophils # Seg Neutrophils # Man Lymphocytes # (Manual) Monocytes # (Manual) PT D-Dimer 5318.85 H ABG pH POC ABG pCO2 POC ABG pO2 ABG pO2 ABG O2 Saturation ABG Base Excess ABG Hemoglobin ABG Oxyhemoglobin ABG Sodium ABG Chloride ABG Glucose Oxyhemoglobin Carboxyhemoglobin Sodium Potassium Chloride Carbon Dioxide 31 H BUN 35 H Creatinine Glucose 187 H POC Glucose Calcium Magnesium Ferritin 324.6 H AST Lactate Dehydrogenase 414 H Total Creatine Kinase Troponin T C-Reactive Protein Total Protein Albumin Triglycerides HDL Cholesterol Arterial Blood Glucose Arterial Blood Ionized Calcium Urine WBC (Auto) Vancomycin Trough Salicylates Acetaminophen Coronavirus (PCR) 07/28/21 07/28/21 07/28/21 04:10 05:25 12:10 WBC 13.7 H RBC Hgb Hct RDW Lymph % (Auto) Lymph # (Auto) Seg Neutrophils % Seg Neuts % (Manual) Lymphocytes % (Manual) Nucleated RBC % Seg Neutrophils # Seg Neutrophils # Man Lymphocytes # (Manual) Monocytes # (Manual) PT D-Dimer ABG pH POC ABG pCO2 POC ABG pO2 ABG pO2 ABG O2 Saturation ABG Base Excess ABG Hemoglobin ABG Oxyhemoglobin ABG Sodium ABG Chloride ABG Glucose Oxyhemoglobin Carboxyhemoglobin Sodium Potassium Chloride Carbon Dioxide BUN Creatinine Glucose POC Glucose 152 H 162 H Calcium Magnesium Ferritin AST Lactate Dehydrogenase Total Creatine Kinase Troponin T C-Reactive Protein Total Protein Albumin Triglycerides HDL Cholesterol Arterial Blood Glucose Arterial Blood Ionized Calcium Urine WBC (Auto) Vancomycin Trough Salicylates Acetaminophen Coronavirus (PCR) 07/28/21 07/28/21 07/29/21 17:44 21:58 04:00 WBC RBC Hgb Hct RDW Lymph % (Auto) Lymph # (Auto) Seg Neutrophils % Seg Neuts % (Manual) Lymphocytes % (Manual) Nucleated RBC % Seg Neutrophils # Seg Neutrophils # Man Lymphocytes # (Manual) Monocytes # (Manual) PT D-Dimer ABG pH 7.510 H POC ABG pCO2 POC ABG pO2 113.0 H ABG pO2 ABG O2 Saturation ABG Base Excess ABG Hemoglobin 11.1 L ABG Oxyhemoglobin ABG Sodium 135.0 L ABG Chloride ABG Glucose 162 H Oxyhemoglobin Carboxyhemoglobin 0.3 L Sodium Potassium Chloride Carbon Dioxide BUN Creatinine Glucose POC Glucose 152 H 139 H Calcium Magnesium Ferritin AST Lactate Dehydrogenase Total Creatine Kinase Troponin T C-Reactive Protein Total Protein Albumin Triglycerides HDL Cholesterol Arterial Blood Glucose 162 H Arterial Blood Ionized Calcium 4.4 L Urine WBC (Auto) Vancomycin Trough Salicylates Acetaminophen Coronavirus (PCR) 07/29/21 07/29/21 07/29/21 04:35 04:35 05:47 WBC 12.0 H RBC Hgb Hct RDW Lymph % (Auto) Lymph # (Auto) Seg Neutrophils % Seg Neuts % (Manual) Lymphocytes % (Manual) Nucleated RBC % Seg Neutrophils # Seg Neutrophils # Man Lymphocytes # (Manual) Monocytes # (Manual) PT D-Dimer ABG pH POC ABG pCO2 POC ABG pO2 ABG pO2 ABG O2 Saturation ABG Base Excess ABG Hemoglobin ABG Oxyhemoglobin ABG Sodium ABG Chloride ABG Glucose Oxyhemoglobin Carboxyhemoglobin Sodium Potassium Chloride Carbon Dioxide BUN 34 H Creatinine Glucose 170 H POC Glucose 153 H Calcium Magnesium Ferritin AST Lactate Dehydrogenase Total Creatine Kinase Troponin T C-Reactive Protein Total Protein Albumin Triglycerides HDL Cholesterol Arterial Blood Glucose Arterial Blood Ionized Calcium Urine WBC (Auto) Vancomycin Trough Salicylates Acetaminophen Coronavirus (PCR) 07/29/21 07/29/21 07/29/21 11:25 16:29 23:39 WBC RBC Hgb Hct RDW Lymph % (Auto) Lymph # (Auto) Seg Neutrophils % Seg Neuts % (Manual) Lymphocytes % (Manual) Nucleated RBC % Seg Neutrophils # Seg Neutrophils # Man Lymphocytes # (Manual) Monocytes # (Manual) PT D-Dimer ABG pH POC ABG pCO2 POC ABG pO2 ABG pO2 ABG O2 Saturation ABG Base Excess ABG Hemoglobin ABG Oxyhemoglobin ABG Sodium ABG Chloride ABG Glucose Oxyhemoglobin Carboxyhemoglobin Sodium Potassium Chloride Carbon Dioxide BUN Creatinine Glucose POC Glucose 142 H 167 H 141 H Calcium Magnesium Ferritin AST Lactate Dehydrogenase Total Creatine Kinase Troponin T C-Reactive Protein Total Protein Albumin Triglycerides HDL Cholesterol Arterial Blood Glucose Arterial Blood Ionized Calcium Urine WBC (Auto) Vancomycin Trough Salicylates Acetaminophen Coronavirus (PCR) 07/30/21 07/30/21 07/30/21 05:00 05:00 05:00 WBC RBC Hgb Hct RDW Lymph % (Auto) Lymph # (Auto) Seg Neutrophils % Seg Neuts % (Manual) Lymphocytes % (Manual) Nucleated RBC % Seg Neutrophils # Seg Neutrophils # Man Lymphocytes # (Manual) Monocytes # (Manual) PT D-Dimer 1818.72 H ABG pH POC ABG pCO2 POC ABG pO2 ABG pO2 ABG O2 Saturation ABG Base Excess ABG Hemoglobin ABG Oxyhemoglobin ABG Sodium ABG Chloride ABG Glucose Oxyhemoglobin Carboxyhemoglobin Sodium Potassium Chloride Carbon Dioxide BUN 34 H Creatinine Glucose 184 H POC Glucose Calcium Magnesium Ferritin 242.1 H AST Lactate Dehydrogenase 304 H Total Creatine Kinase Troponin T C-Reactive Protein Total Protein Albumin Triglycerides HDL Cholesterol Arterial Blood Glucose Arterial Blood Ionized Calcium Urine WBC (Auto) Vancomycin Trough Salicylates Acetaminophen Coronavirus (PCR) 07/30/21 07/30/21 05:00 06:08 WBC RBC 3.45 L Hgb 10.0 L Hct 29.9 L RDW Lymph % (Auto) Lymph # (Auto) Seg Neutrophils % Seg Neuts % (Manual) Lymphocytes % (Manual) Nucleated RBC % Seg Neutrophils # Seg Neutrophils # Man Lymphocytes # (Manual) Monocytes # (Manual) PT D-Dimer ABG pH POC ABG pCO2 POC ABG pO2 ABG pO2 ABG O2 Saturation ABG Base Excess ABG Hemoglobin ABG Oxyhemoglobin ABG Sodium ABG Chloride ABG Glucose Oxyhemoglobin Carboxyhemoglobin Sodium Potassium Chloride Carbon Dioxide BUN Creatinine Glucose POC Glucose 171 H Calcium Magnesium Ferritin AST Lactate Dehydrogenase Total Creatine Kinase Troponin T C-Reactive Protein Total Protein Albumin Triglycerides HDL Cholesterol Arterial Blood Glucose Arterial Blood Ionized Calcium Urine WBC (Auto) Vancomycin Trough Salicylates Acetaminophen Coronavirus (PCR)
--- NOTE | 2021-07-30 13:29 | Progress Note ---
Assessment and Plan - Patient Problems (1) Acute respiratory failure due to COVID-19 Current Visit: Yes Status: Acute Plan to address problem: Patient on the vent and supportive management of acute COVID-19 viral pneumonia. (2) Multiple pulmonary emboli Current Visit: Yes Status: Acute Plan to address problem: Intercurrent finding of acute bilateral pulmonary emboli, on anticoagulation therapy. (3) Right ventricular thrombus Current Visit: Yes Status: Acute Plan to address problem: Incidental finding of right ventricular thrombus is likely thrombus in transition associated with ongoing acute venous thromboembolism. Subjective Date of service: 07/30/21 Principal diagnosis: COVID pneumonia Interval history: Patient is sedated, on the vent. Normal sinus rhythm on nurse monitoring. No cardiac complaints have been reported. Objective Vital Signs Temp Pulse Resp BP Pulse Ox 07/30/21 13:15 61 26 H 151/86 99 07/30/21 13:10 63 157/61 07/30/21 13:00 80 26 H 151/86 97 07/30/21 12:45 64 26 H 157/90 99 07/30/21 12:30 62 26 H 157/90 99 07/30/21 12:15 63 26 H 157/90 99 07/30/21 12:00 60 26 H 157/90 98 07/30/21 11:50 98.2 F 07/30/21 11:45 75 26 H 160/78 99 07/30/21 11:31 63 26 H 160/78 98 07/30/21 11:15 62 26 H 160/78 98 07/30/21 11:00 60 26 H 160/78 96 07/30/21 10:45 66 26 H 144/80 98 07/30/21 10:31 66 26 H 144/80 98 07/30/21 10:15 62 26 H 144/80 97 07/30/21 10:00 63 26 H 144/80 95 07/30/21 09:45 67 26 H 171/113 97 07/30/21 09:31 78 26 H 171/113 96 07/30/21 09:15 121 H 19 171/113 97 07/30/21 09:01 133 H 22 171/113 95 07/30/21 08:45 60 26 H 139/75 98 07/30/21 08:31 55 L 26 H 139/75 97 07/30/21 08:15 54 L 26 H 139/75 97 07/30/21 08:00 63 26 H 158/67 97 07/30/21 07:45 51 L 26 H 136/76 98 07/30/21 07:31 50 L 26 H 136/76 98 07/30/21 07:15 51 L 26 H 136/76 99 07/30/21 07:04 99.3 F 07/30/21 07:01 55 L 26 H 136/76 97 07/30/21 06:45 53 L 26 H 102/51 98 07/30/21 06:31 49 L 26 H 102/51 98 07/30/21 06:15 48 L 26 H 102/51 98 07/30/21 06:00 44 L 26 H 102/51 98 07/30/21 05:45 45 L 26 H 111/56 98 07/30/21 05:42 45 L 90/35 07/30/21 05:31 44 L 26 H 111/56 98 07/30/21 05:15 48 L 26 H 111/56 97 07/30/21 05:00 44 L 26 H 111/56 96 07/30/21 04:45 44 L 26 H 107/55 97 07/30/21 04:31 44 L 26 H 107/55 97 07/30/21 04:16 44 L 107/55 97 07/30/21 04:15 44 L 26 H 107/55 98 07/30/21 04:00 98.2 F 46 L 26 H 107/55 97 07/30/21 03:45 49 L 26 H 124/61 99 07/30/21 03:31 50 L 26 H 124/61 99 07/30/21 03:15 53 L 26 H 124/61 100 07/30/21 03:00 50 L 26 H 119/64 97 07/30/21 02:45 52 L 26 H 124/61 98 07/30/21 02:31 56 L 26 H 124/61 98 07/30/21 02:15 60 26 H 124/61 97 07/30/21 02:01 61 26 H 124/61 96 07/30/21 01:45 59 L 26 H 162/85 96 07/30/21 01:31 64 26 H 162/85 96 07/30/21 01:15 107 H 22 162/85 96 07/30/21 01:00 83 25 H 162/85 97 07/30/21 00:45 100 H 19 148/81 99 07/30/21 00:31 72 22 148/81 99 07/30/21 00:17 62 148/81 100 07/30/21 00:15 60 26 H 148/81 100 07/30/21 00:00 97.6 F 54 L 26 H 148/81 100 07/29/21 23:45 50 L 26 H 146/80 99 07/29/21 23:31 51 L 26 H 146/80 99 07/29/21 23:15 49 L 26 H 146/80 100 07/29/21 23:00 48 L 26 H 146/80 100 07/29/21 22:45 49 L 26 H 96/50 100 07/29/21 22:31 45 L 26 H 96/50 100 07/29/21 22:15 37 L 26 H 96/50 99 07/29/21 22:09 40 L 90/39 07/29/21 22:00 40 L 26 H 96/50 98 07/29/21 21:45 39 L 26 H 103/56 100 07/29/21 21:31 40 L 26 H 103/56 98 07/29/21 21:15 38 L 22 103/56 98 07/29/21 21:01 38 L 15 103/56 97 07/29/21 20:45 39 L 23 128/77 98 07/29/21 20:31 39 L 25 H 128/77 99 07/29/21 20:15 40 L 26 H 128/77 99 07/29/21 20:00 97.4 F L 42 L 26 H 128/77 99 07/29/21 19:57 51 L 128/71 100 07/29/21 19:45 41 L 26 H 128/71 99 07/29/21 19:31 41 L 26 H 128/71 99 07/29/21 19:15 44 L 26 H 128/71 99 07/29/21 19:01 45 L 26 H 128/71 98 07/29/21 18:45 47 L 26 H 151/81 99 07/29/21 18:31 50 L 26 H 151/81 99 07/29/21 18:19 50 L 26 H 151/81 99 07/29/21 18:15 49 L 26 H 151/81 100 07/29/21 18:00 52 L 26 H 151/81 100 07/29/21 17:45 52 L 26 H 146/74 99 07/29/21 17:31 94 H 12 99/49 100 07/29/21 17:15 39 L 26 H 99/49 100 07/29/21 17:00 39 L 26 H 99/49 99 07/29/21 16:45 39 L 26 H 99/49 100 07/29/21 16:31 39 L 26 H 99/49 100 07/29/21 16:21 39 L 99/49 99 07/29/21 16:15 39 L 26 H 99/49 99 07/29/21 16:00 98.9 F 41 L 26 H 99/49 98 07/29/21 15:45 43 L 21 107/53 100 07/29/21 15:31 41 L 26 H 107/53 100 07/29/21 15:15 40 L 26 H 107/53 100 07/29/21 15:01 41 L 26 H 107/53 99 07/29/21 14:45 45 L 26 H 147/74 99 07/29/21 14:31 45 L 26 H 147/74 99 07/29/21 14:15 51 L 26 H 147/74 99 07/29/21 14:00 54 L 26 H 07/29/21 13:45 56 L 26 H 147/74 99 07/29/21 13:31 61 26 H 126/62 100 - Physical Examination Narrative exam: Full physical exam is deferred due to patient's acute Covid pneumonia. General: Other (intubated on the vent) Neck: Positive: neck supple Abdomen: Positive: Soft - Labs and Meds Cardiac Enzymes 07/30/21 Range/Units 05:00 Lactate Dehydrogenase 304 H (91-180) units/L CBC 07/30/21 Range/Units 05:00 WBC 9.2 (4.5-11.0) K/mm3 RBC 3.45 L (3.65-5.03) M/mm3 Hgb 10.0 L (10.1-14.3) gm/dl Hct 29.9 L (30.3-42.9) % Plt Count 180 (140-440) K/mm3 Comprehensive Metabolic Panel 07/30/21 Range/Units 05:00 Sodium 138 (137-145) mmol/L Potassium 4.5 (3.6-5.0) mmol/L Chloride 102.6 (98-107) mmol/L Carbon Dioxide 29 (22-30) mmol/L BUN 34 H (7-17) mg/dL Creatinine 0.6 (0.6-1.2) mg/dL Glucose 184 H (65-100) mg/dL Calcium 9.0 (8.4-10.2) mg/dL - Imaging and Cardiology EKG: report reviewed
--- NOTE | 2021-07-30 16:11 | Progress Note ---
<KAMARIRYAN BermudezVeronica - Last Filed: 07/30/21 16:13> Assessment and Plan Assessment and plan: This is a 55-year-old female with obesity, diabetes, anxiety, hypertension admitted with severe Covid 19 pneumonia, multiple subsegmental pulmonary embolism, acute kidney injury and sepsis Neuro: Acute metabolic encephalopathy, h/o anxiety -Sedated with fentanyl and Versed -Goal RASS 0 to -1 -Daily SAT trial when appropriate -Avoid delirium -Bilateral wrist restraints for safety CV: SRSB, mobile echogenic density on the tricuspid valve apparatus -Cardiology consulted, appreciate recommendations -Cardiology concluded SB likely aggravated by remdesivir -Normal TSH -Recommend repeat echo in 3 months to evaluate mobile port density -Per cardiology: Given clinical picture density most likely represents a thrombus in the second vegetation Respiratory: ARDS, acute hypoxic respiratory failure, severe COVID-19 bronchopneumonia -Intubated 07/18 with 7.50 ETT at 21 the lips -CCM consulted, appreciate recommendations -VAP bundle -A.m. vent settings: AC rate 26, tidal volume 420, PEEP 12 FiO2 40 -See RT notes for titration -Daily CXR and ABG -Daily SAT/SBT trials when appropriate -AM CXR and ABG reviewed GI: Moderate protein calorie malnutrition, obesity -Nutrition consult -On tube feedings -BR with Senokot -PPI -24-hour fluid balance - 1202 -Free water flush 200 mL every 4 : Acute kidney injury secondary to sepsis/ATN (resolved), hyperkalemia (resolved) -Strict intake and output -Daily weights -Monitor and intervene with electrolytes as needed -Trend BMP Heme: Multiple subsegmental pulmonary embolism, LLE DVT -On Lovenox -Trend CBC -Monitor temperature curve -SCDs to bilateral lower extremities while in bed -Evidenced on CTA chest-> see results -BLE US shows LLE DVT ID: COVID-19 pneumonia, sepsis/septic shock -Infectious disease consulted, appreciate recommendations -COVID-19 PCR positive -Antibiotics with cefepime -S/p remdesivir and Actemra -Solu-Medrol 60 mg every 8->weaning per CCM -Contact/droplet isolation -Prone as tolerated and needed -Pulmonary hygiene -Trend COVID-19 inflammatory markers for risk stratification e Endo: Stress hyperglycemia, obesity, h/o DM type II -Avoid hypoglycemia -SSI -Lantus -Accu-Cheks every 6 The high probability of a clinically significant, sudden or life threatening deterioration of the [multi] system(s) required my full and direct attention, intervention and personal management. The aggregate critical care time was [60] minutes. This time is in addition to time spent performing reported procedures but includes the following: [x] Data Review and interpretation [x] Patient assessment and monitoring of vital signs [x] Documentation [x] Medication orders and management Disposition Plan: icu Total Time Spent with Patient (Minutes): 60 History Interval history: This is a 55-year-old female with obesity, diabetes, anxiety, hypertension who presented to the emergency department on 07/18 via EMS for low oxygen saturations on CPAP in the high 60s to 70s. In the emergency department patient had persistently low oxygen levels and was intubated electively. Work-up in the emergency department revealed bilateral pneumonia, multiple segmental bilateral pulmonary emboli, extensive bilateral Covid bronchopneumonia. Patient was admitted to the hospitalist service with consults to [facility] for acute hypoxic respiratory failure, acute encephalopathy, multiple pulmonary embolism ION and as a COVID-19 PUI. 07/18 admit to hospital via ER; being held in ER for ICU bed 07/19 remains in ER intubated and mechanically ventilated; covid pos 07-20 came to ICU overnight from ER; no bradycardic 07/21/2021. Patient remains orally intubated on mechanical ventilation AC mode rate of 26, tidal volume 420, FiO2 90% and PEEP of 16. Continue empiric antibiotics of ceftriaxone and azithromycin for 5 days total. Complete 5 days of remdesivir and continue IV steroids. Patient received Actemra 07/20/2021. Continue therapeutic anticoagulation with Lovenox 100 mg subcu twice daily. Continue sedation of fentanyl and Versed as tolerated. Continue pressors to maintain MAP > 65. Follow-up echocardiogram. 07/22/2021. Patient on mechanical ventilation AC mode rate of 26, FiO2 70% and PEEP of 16. Continue to wean FiO2 as tolerated. Continue antibiotics per ID recommendations. Patient currently with ceftriaxone and azithromycin. Complete 5 days of remdesivir. Continue IV steroids. Patient received Actemra on 07/20/2021. Continue prone positioning as able. Continue to trend inflammatory markers. 07/23/2021. Patient remains on mechanical ventilation AC mode rate of 26, tidal volume 420, FiO2 75% and PEEP of 16. Continue to wean FiO2 as tolerated. Continue antibiotics per ID recommendations. Patient currently with ceftriaxone and azithromycin. Complete 5 days of remdesivir. Continue IV steroids. Patient received Actemra on 07/20/2021. Continue prone positioning as able. Continue to trend inflammatory markers. ID and pulmonary following. 07/24/2021. Patient remains on mechanical ventilation AC mode rate of 26, tidal volume 420, FiO2 70% and PEEP of 16. Patient with possible tricuspid valve vegetation seen on echocardiogram. Consult cardiology for further evaluation. Continue IV antibiotics per ID recommendations. Prone position is possible. Continue to trend inflammatory markers. 07/25/2021. Patient remains on mechanical ventilation AC mode rate of 26, tidal volume 420, FiO2 70% and PEEP of 14. Patient with possible tricuspid valve vegetation seen on echocardiogram. Consult cardiology for further evaluation. Continue IV antibiotics per ID recommendations. Prone position is possible. Continue to trend inflammatory markers. 07/26: MICHAEL, hyperkalemia 07/27: OETT advanced. Remains sedated but able to follow commands. MICHAEL. 07/28: O ETT retracted. MICHAEL overnight. Patient remains sinus bradycardia and hypertensive at times. Remains on Versed and fentanyl. 07/29: Night patient became hypotensive and required a 500 cc bolus. Hydralazine dose change. 07/30: Vent changes made per [facility], patient remains on fentanyl and Versed. Increase in Lantus Hospitalist Physical - Constitutional Vitals: Temp Pulse Resp BP Pulse Ox 99.0 F 67 26 H 131/44 98 07/30/21 16:00 07/30/21 15:15 07/30/21 13:15 07/30/21 15:15 07/30/21 15:15 General appearance: Present: no acute distress, other (sedated) - EENT Eyes: Present: PERRL ENT: dentition normal - Neck Neck: Absent: masses or JVD, cervical LAD - Respiratory Respiratory effort: normal Respiratory: bilateral: diminished - Cardiovascular Rhythm: regular Heart Sounds: Present: S1 & S2. Absent: systolic murmur, diastolic murmur - Extremities Extremities: no ischemia, pulses intact, pulses symmetrical, No edema, normal temperature, normal color Peripheral Pulses: within normal limits - Abdominal General gastrointestinal: soft, non-tender, non-distended, normal bowel sounds - Integumentary Integumentary: Present: warm, dry - Psychiatric Psychiatric: other (sedated) - Neurologic Neurologic: other (sedated) - Allied Health Allied health notes reviewed: nursing, RT, social work HEART Score - HEART Score Troponin: Troponin T 0.106 ng/mL (0.00-0.029) H* 07/18/21 16:00 Results - Labs CBC & Chem 7: 07/30/21 05:00 07/30/21 05:00 Labs: Laboratory Last Values WBC 9.2 K/mm3 (4.5-11.0) 07/30/21 05:00 RBC 3.45 M/mm3 (3.65-5.03) L 07/30/21 05:00 Hgb 10.0 gm/dl (10.1-14.3) L 07/30/21 05:00 Hct 29.9 % (30.3-42.9) L 07/30/21 05:00 MCV 87 fl (79-97) 07/30/21 05:00 MCH 29 pg (28-32) 07/30/21 05:00 MCHC 34 % (30-34) 07/30/21 05:00 RDW 14.9 % (13.2-15.2) 07/30/21 05:00 Plt Count 180 K/mm3 (140-440) 07/30/21 05:00 Lymph % (Auto) 10.7 % (13.4-35.0) L 07/19/21 04:59 [place] % (Auto) 4.8 % (0.0-7.3) 07/19/21 04:59 Eos % (Auto) 0.1 % (0.0-4.3) 07/19/21 04:59 Baso % (Auto) 0.1 % (0.0-1.8) 07/19/21 04:59 Lymph # (Auto) 1.1 K/mm3 (1.2-5.4) L 07/19/21 04:59 [place] # (Auto) 0.5 K/mm3 (0.0-0.8) 07/19/21 04:59 Eos # (Auto) 0.0 K/mm3 (0.0-0.4) 07/19/21 04:59 Baso # (Auto) 0.0 K/mm3 (0.0-0.1) 07/19/21 04:59 Add Manual Diff Complete 07/27/21 04:48 Total Counted 100 07/27/21 04:48 Seg Neutrophils % Cook Jelly 07/27/21 04:48 Seg Neuts % (Manual) 92.0 % (40.0-70.0) H 07/27/21 04:48 Band Neutrophils % 1.0 % 07/26/21 06:07 Lymphocytes % (Manual) 3.0 % (13.4-35.0) L 07/27/21 04:48 Monocytes % (Manual) 5.0 % (0.0-7.3) 07/27/21 04:48 Metamyelocytes % 1.0 % 07/26/21 06:07 Myelocytes % 1.0 % 07/25/21 04:28 Nucleated RBC % 1.0 % (0.0-0.9) H 07/27/21 04:48 Seg Neutrophils # 8.7 K/mm3 (1.8-7.7) H 07/19/21 04:59 Seg Neutrophils # Man 15.2 K/mm3 (1.8-7.7) H 07/27/21 04:48 Band Neutrophils # 0.0 K/mm3 07/27/21 04:48 Lymphocytes # (Manual) 0.5 K/mm3 (1.2-5.4) L 07/27/21 04:48 Abs React Lymphs (Man) 0.0 K/mm3 07/27/21 04:48 Monocytes # (Manual) 0.8 K/mm3 (0.0-0.8) 07/27/21 04:48 Eosinophils # (Manual) 0.0 K/mm3 (0.0-0.4) 07/27/21 04:48 Basophils # (Manual) 0.0 K/mm3 (0.0-0.1) 07/27/21 04:48 Metamyelocytes # 0.0 K/mm3 07/27/21 04:48 Myelocytes # 0.0 K/mm3 07/27/21 04:48 Promyelocytes # 0.0 K/mm3 07/27/21 04:48 Blast Cells # 0.0 K/mm3 07/27/21 04:48 WBC Morphology Not Reportable 07/27/21 04:48 Hypersegmented Neuts Not Reportable 07/27/21 04:48 Hyposegmented Neuts Not Reportable 07/27/21 04:48 Hypogranular Neuts Not Reportable 07/27/21 04:48 Smudge Cells Not Reportable 07/27/21 04:48 Toxic Granulation Not Reportable 07/27/21 04:48 Toxic Vacuolation Not Reportable 07/27/21 04:48 Dohle Bodies Not Reportable 07/27/21 04:48 Pelger-Huet Anomaly Not Reportable 07/27/21 04:48 Alonzo Rods Not Reportable 07/27/21 04:48 Platelet Estimate Consistent w auto 07/27/21 04:48 Clumped Platelets Not Reportable 07/27/21 04:48 Plt Clumps, EDTA Not Reportable 07/27/21 04:48 Large Platelets Not Reportable 07/27/21 04:48 Giant Platelets Not Reportable 07/27/21 04:48 Platelet Satelliting Not Reportable 07/27/21 04:48 Plt Morphology Comment Not Reportable 07/27/21 04:48 RBC Morphology Normal 07/27/21 04:48 Dimorphic RBCs Not Reportable 07/27/21 04:48 Polychromasia Not Reportable 07/27/21 04:48 Hypochromasia Not Reportable 07/27/21 04:48 Poikilocytosis Not Reportable 07/27/21 04:48 Anisocytosis Not Reportable 07/27/21 04:48 Microcytosis Not Reportable 07/27/21 04:48 Macrocytosis Not Reportable 07/27/21 04:48 Spherocytes Not Reportable 07/27/21 04:48 Pappenheimer Bodies Not Reportable 07/27/21 04:48 Sickle Cells Not Reportable 07/27/21 04:48 Target Cells Not Reportable 07/27/21 04:48 Tear Drop Cells Not Reportable 07/27/21 04:48 Ovalocytes Not Reportable 07/27/21 04:48 Helmet Cells Not Reportable 07/27/21 04:48 Jacinto-[place]orton Bodies Not Reportable 07/27/21 04:48 [place]ne Rings Not Reportable 07/27/21 04:48 [place] Cells Not Reportable 07/27/21 04:48 Bite Cells Not Reportable 07/27/21 04:48 Crenated Cell Not Reportable 07/27/21 04:48 Elliptocytes Not Reportable 07/27/21 04:48 Acanthocytes (Spur) Not Reportable 07/27/21 04:48 Rouleaux Not Reportable 07/27/21 04:48 Hemoglobin C Crystals Not Reportable 07/27/21 04:48 Schistocytes Not Reportable 07/27/21 04:48 Malaria parasites Not Reportable 07/27/21 04:48 Jarvis Bodies Not Reportable 07/27/21 04:48 Hem Pathologist Commnt No 07/27/21 04:48 PT 15.1 Sec. (12.2-14.9) H 07/18/21 16:00 INR 1.13 (0.87-1.13) 07/18/21 16:00 APTT 31.9 Sec. (24.2-36.6) 07/18/21 16:00 D-Dimer 1818.72 ng/mlDDU (0-234) H 07/30/21 05:00 ABG pH 7.510 (7.320-7.450) H 07/29/21 04:00 POC ABG pCO2 38.1 mmHg (32.0-48.0) 07/29/21 04:00 ABG pCO2 35.2 mm Hg 07/19/21 Unknown POC ABG pO2 113.0 mmHg (83-108) H 07/29/21 04:00 ABG pO2 64.2 mm Hg (80.0-90.0) L 07/19/21 Unknown POC ABG HCO3 29.7 07/29/21 04:00 ABG HCO3 20.1 mmol/L (20.0-26.0) 07/19/21 Unknown ABG O2 Saturation 98.0 (0-100) 07/29/21 04:00 ABG O2 Content 14.3 (0.0-44) 07/19/21 Unknown POC ABG Base Excess 6.3 07/29/21 04:00 ABG Base Excess -4.5 mmol/L (-2.0-3.0) L 07/19/21 Unknown ABG Hemoglobin 11.1 (12.0-17.5) L 07/29/21 04:00 ABG Oxyhemoglobin 97.4 (94-98) 07/29/21 04:00 ABG Carboxyhemoglobin 0.8 % (0.0-5.0) 07/19/21 Unknown ABG Methemoglobin 0.3 (0.0-1.5) 07/29/21 04:00 ABG Sodium 135.0 mmol/L (136.0-145.0) L 07/29/21 04:00 ABG Potassium 4.4 mmol/L (3.40-4.50) 07/29/21 04:00 ABG Chloride 101.0 mmol/L (98-107) 07/29/21 04:00 ABG Glucose 162 mg/dL (65-95) H 07/29/21 04:00 Oxyhemoglobin 91.9 % (95.0-99.0) L 07/19/21 Unknown Carboxyhemoglobin 0.3 (0.5-1.5) L 07/29/21 04:00 FiO2 100 % 07/19/21 Unknown FiO2 % 60.0 07/29/21 04:00 Sodium 138 mmol/L (137-145) 07/30/21 05:00 Potassium 4.5 mmol/L (3.6-5.0) 07/30/21 05:00 Chloride 102.6 mmol/L (98-107) 07/30/21 05:00 Carbon Dioxide 29 mmol/L (22-30) 07/30/21 05:00 Anion Gap 11 mmol/L 07/30/21 05:00 BUN 34 mg/dL (7-17) H 07/30/21 05:00 Creatinine 0.6 mg/dL (0.6-1.2) 07/30/21 05:00 Estimated GFR > 60 ml/min 07/30/21 05:00 BUN/Creatinine Ratio 57 % 07/30/21 05:00 Glucose 184 mg/dL (65-100) H 07/30/21 05:00 POC Glucose 182 mg/dL (70-105) H 07/30/21 11:41 Lactic Acid 1.40 mmol/L (0.7-2.0) 07/18/21 16:00 Calcium 9.0 mg/dL (8.4-10.2) 07/30/21 05:00 Phosphorus 3.70 mg/dL (2.5-4.5) 07/30/21 05:00 Magnesium 2.10 mg/dL (1.7-2.3) 07/30/21 05:00 Ferritin 242.1 ng/mL (10.0-200.0) H 07/30/21 05:00 Total Bilirubin 0.20 mg/dL (0.1-1.2) 07/22/21 04:39 AST 38 units/L (5-40) 07/22/21 04:39 ALT 29 units/L (7-56) 07/22/21 04:39 Alkaline Phosphatase 83 units/L (35-129) 07/22/21 04:39 Ammonia 37.0 umol/L (25-60) 07/18/21 16:00 Lactate Dehydrogenase 304 units/L (91-180) H 07/30/21 05:00 Total Creatine Kinase 157 units/L (30-135) H 07/18/21 16:00 Troponin T 0.106 ng/mL (0.00-0.029) H* 07/18/21 16:00 C-Reactive Protein 0.20 mg/dL (0.00-1.30) 07/30/21 05:00 Total Protein 6.4 g/dL (6.3-8.2) 07/22/21 04:39 Albumin 2.9 g/dL (3.9-5) L 07/22/21 04:39 Albumin/Globulin Ratio 0.8 % 07/22/21 04:39 Triglycerides 156 mg/dL (2-149) H 07/18/21 16:00 Cholesterol 127 mg/dL (50-199) 07/18/21 16:00 LDL Cholesterol Direct 64 mg/dL (50-130) 07/18/21 16:00 HDL Cholesterol 33 mg/dL (40-59) L 07/18/21 16:00 Cholesterol/HDL Ratio 3.84 % 07/18/21 16:00 Procalcitonin < 0.05 ng/mL (<0.15) 07/26/21 13:53 TSH 0.469 mlU/mL (0.270-4.200) 07/21/21 04:52 Free T4 1.05 ng/dL (0.76-1.46) 07/21/21 04:52 Arterial Blood Glucose 162 mg/dL (65-95) H 07/29/21 04:00 Arterial Blood Ionized Calcium 4.4 mg/dL (4.6-5.3) L 07/29/21 04:00 Urine Color Yellow (Yellow) 07/18/21 Unknown Urine Turbidity Slightly-cloudy (Clear) 07/18/21 Unknown Urine pH 5.0 (5.0-7.0) 07/18/21 Unknown Ur Specific [place] 1.020 (1.003-1.030) 07/18/21 Unknown Urine Protein >500 mg/dL (Negative) 07/18/21 Unknown Urine Glucose (UA) Neg mg/dL (Negative) 07/18/21 Unknown Urine Ketones 20 mg/dL (Negative) 07/18/21 Unknown Urine Blood Neg (Negative) 07/18/21 Unknown Urine Nitrite Neg (Negative) 07/18/21 Unknown Urine Bilirubin Neg (Negative) 07/18/21 Unknown Urine Urobilinogen < 2.0 mg/dL (<2.0) 07/18/21 Unknown Ur Leukocyte Esterase Neg (Negative) 07/18/21 Unknown Urine WBC (Auto) 9.0 /HPF (0.0-6.0) H 07/18/21 Unknown Urine RBC (Auto) 2.0 /HPF (0.0-6.0) 07/18/21 Unknown U Epithel Cells (Auto) 1.0 /HPF (0-13.0) 07/18/21 Unknown Urine Bacteria (Auto) 1+ /HPF (Negative) 07/18/21 Unknown Amorphous Crystals Few 07/18/21 Unknown Urine Mucus Few /HPF 07/18/21 Unknown Vancomycin Trough 22.9 ug/mL (5.0-20.0) H 07/25/21 04:28 Salicylates < 0.3 mg/dL (2.8-20.0) L 07/18/21 16:00 Urine Opiates Screen Negative 07/18/21 Unknown Urine Methadone Screen Negative 07/18/21 Unknown Acetaminophen 5.7 ug/mL (10.0-30.0) L 07/18/21 16:00 Ur Barbiturates Screen Negative 07/18/21 Unknown Ur Phencyclidine Scrn Negative 07/18/21 Unknown Ur Amphetamines Screen Negative 07/18/21 Unknown U Benzodiazepines Scrn Negative 07/18/21 Unknown Urine Cocaine Screen Negative 07/18/21 Unknown U Marijuana (THC) Screen Negative 07/18/21 Unknown Drugs of Abuse Note Disclamer 07/18/21 Unknown Plasma/Serum Alcohol < 0.01 % (0-0.07) 07/18/21 16:00 Coronavirus (PCR) Positive (Negative) A 07/19/21 Unknown Blood Type O POSITIVE 07/18/21 16:05 Antibody Screen Negative 07/18/21 16:05 Guzman/IV: Voiding Method Indwelling Catheter Active Medications - Current Medications Current Medications: Generic Name Dose Route Start Last Admin Trade Name Freq PRN Reason Stop Dose Admin Acetaminophen 650 mg 07/18/21 22:49 Acetaminophen 325 Mg Tab PO Q4H PRN Pain MILD(1-3)/Fever >100.5/URENA Lipase/Protease/Amylase 1 each 07/18/21 22:56 Lipase 10,500/Protease 25,000/Amylase 43,750 (Units) Dr Cap FEEDTUBE PRN PRN For Clogged Feeding Tube Bisacodyl 10 mg 07/27/21 09:02 07/27/21 11:16 Bisacodyl 10 Mg Rect Supp [place] 10 mg QDAY PRN Administration Constip unreliev by MOM/or NPO Enoxaparin Sodium 100 mg 07/19/21 10:00 07/30/21 09:00 Enoxaparin 100 Mg/1 Ml Inj SUB-Q 100 mg Q12HR NICOLE Administration Protocol Famotidine 20 mg 07/18/21 22:00 07/30/21 09:00 Famotidine 20 Mg/2 Ml Inj IV 20 mg BID NICOLE Administration Fentanyl 50 mcg 07/18/21 14:41 Fentanyl 100 Mcg/2 Ml Inj IV Q10MIN PRN ANALGESIA Hydralazine HCl 10 mg 07/29/21 09:00 07/30/21 13:10 Hydralazine 10 Mg Tab PO 10 mg Q8HR NICOLE Administration Hydrophilic Ointment 1 applic 07/18/21 14:41 Lip Therapy Vaseline TP Q2HR PRN Dry Lips Fentanyl Citrate 2,000 mcg in 100 mls @ 4.915 mls/hr 07/18/21 16:00 07/30/21 05:59 Fentanyl Drip Premix IV 2 mcg/kg/hr TITR NICOLE 9.83 mls/hr Administration Protocol 1 MCG/KG/HR Midazolam HCl 100 mg/ Sodium 100 mls @ 2 mls/hr 07/18/21 19:00 07/30/21 09:17 Chloride IV 3 mg/hr TITR NICOLE 3 mls/hr Titration Protocol 2 MG/HR Cefepime HCl 2 gm in 100 mls @ 200 mls/hr 07/25/21 14:00 07/30/21 13:11 Cefepime/Ns 2 Gm/100 Ml IV 08/02/21 06:29 200 mls/hr Q8H NICOLE Administration Protocol Insulin Glargine 5 units 07/27/21 22:00 07/29/21 22:10 Insulin Glargine 100 Units/Ml SUB-Q 5 units QHS NICOLE Administration Insulin Human Lispro 0 unit 07/27/21 12:00 07/30/21 13:11 Insulin Lispro 100 Unit/Ml SUB-Q 3 unit Q6HR [facility] Administration Protocol Methylprednisolone Sodium Succinate 40 mg 07/27/21 14:00 07/30/21 13:11 Methylprednisolone Sod Succinate 40 Mg/1 Ml Inj IV 40 mg Q8HR NICOLE Administration Midazolam HCl 2 mg 07/18/21 18:11 07/22/21 07:56 Midazolam 2 Mg/2 Ml Inj IV 2 mg Q10MIN PRN Administration Sedation Multi-Ingred Cream/Lotion/Oil/Oint 1 applic 07/18/21 14:41 Mineral Oil/Petrolatum, White Ophth Oint 3.5 Gm OU Q4HR PRN Dry Eye(s) Ondansetron HCl 4 mg 07/18/21 22:49 Ondansetron 4 Mg/2 Ml Inj IV Q8H PRN Nausea And Vomiting Quetiapine Fumarate 25 mg 07/30/21 22:00 Quetiapine 25 Mg Tab PO QHS NICOLE Senna/Docusate Sodium 1 tab 07/18/21 22:00 07/30/21 09:00 Sennosides/Docusate Sodium 8.6/50 Mg Tab FEEDTUBE 1 tab BID NICOLE Administration Simple Syrup 15 ml 07/18/21 22:56 Simple Syrup 15 Ml FEEDTUBE PRN PRN Hypoglycemia Simple Syrup 30 ml 07/18/21 22:56 Simple Syrup 15 Ml FEEDTUBE PRN PRN Hypoglycemia Sodium Bicarbonate 325 mg 07/18/21 22:56 Sodium Bicarbonate 325 Mg Tab FEEDTUBE PRN PRN For Clogged Feeding Tube Sodium Chloride 10 ml 07/19/21 10:00 07/30/21 09:01 Sodium Chloride 0.9% 10 Ml Flush Syringe IV 10 ml BID NICOLE Administration Sodium Chloride 10 ml 07/18/21 22:49 Sodium Chloride 0.9% 10 Ml Flush Syringe IV PRN PRN LINE FLUSH Sodium Chloride 5 ml 07/20/21 14:38 Sodium Chloride 0.9% 1000 Ml Iv Soln IV PRN PRN ART-LINE Nutrition/Malnutrition Assess - Dietary Evaluation Nutrition/Malnutrition Findings: Nutrition Notes Start: 07/19/21 09:15 Freq: Status: Active Protocol: Document 07/29/21 11:53 MK (Rec: 07/29/21 11:55 MK [id number]) Nutrition Notes Initial or Follow up Reassessment Current Diagnosis Acute Kidney Injury,Diabetes, Hypertension,Respiratory Failure Other Pertinent Diagnosis COVID Current Diet Vital HP at 55 ml/hr Labs/Tests BUN 34 Pertinent Medications Solumedrol Height 5 ft 6 in Weight 104.8 kg [place] Body Weight (kg) 59.09 BMI 37.3 Weight Status Obese Subjective/Other Information TF remains at goal and pt tolerating. Percent of energy/protein needs met: 93%/98% Burn Absent Trauma Absent Difficulty In Swallowing Current % PO Negligible Minimum of two criteria No physical signs of malnutrition #1 Nutrition Diagnosis Inadequate oral intake Diagnosis Progress(for reassessment Continues documentation) Is patient on ventilator? Yes Is Patient Ambulatory and/or Out of Bed No REE-([facility]-confined to bed) 2001.624 Kcal/Kg value to use for calculation 14 Approximate Energy Requirements Using 1467 kcal/Kg Calculation Used for Recommendations Kcal/kg Additional Notes Protein: (>2g/kg IBW) >118g Fluid: 1 ml/kcal or per MD Nutrition Intervention Change Diet Order: Continue Vital HP Nutrition Support: Vital HP at 55 ml/hr Flush 50 ml q4h Kcal 1,320 Protein (gm) 116 Fluid (mL) 1,104 Goal #1 Meet at least 75% of protein and kcal needs via TF Anticipated Discharge Needs: Unable to determine at this time Follow-Up By: 08/03/21 Additional Comments F/u: TF tolerance and renal function <EDMUNDO DAS - Last Filed: 08/01/21 11:08> History Interval history: I saw and evaluated the patient. Discussed with the nurse practitioner and agree with their findings and plan as documented in this note. Hospitalist Physical - Constitutional Vitals: Temp Pulse Resp BP Pulse Ox 99.9 F H 129 H 26 H 200/72 95 08/01/21 03:12 08/01/21 08:25 08/01/21 05:31 08/01/21 08:25 08/01/21 10:21 HEART Score - HEART Score Troponin: Troponin T 0.106 ng/mL (0.00-0.029) H* 07/18/21 16:00 Results - Labs CBC & Chem 7: 08/01/21 06:00 08/01/21 06:00 Labs: Laboratory Last Values WBC 10.1 K/mm3 (4.5-11.0) 08/01/21 06:00 RBC 3.65 M/mm3 (3.65-5.03) 08/01/21 06:00 Hgb 10.7 gm/dl (10.1-14.3) 08/01/21 06:00 Hct 31.9 % (30.3-42.9) 08/01/21 06:00 MCV 88 fl (79-97) 08/01/21 06:00 MCH 29 pg (28-32) 08/01/21 06:00 MCHC 34 % (30-34) 08/01/21 06:00 RDW 14.9 % (13.2-15.2) 08/01/21 06:00 Plt Count 223 K/mm3 (140-440) 08/01/21 06:00 Lymph % (Auto) 10.7 % (13.4-35.0) L 07/19/21 04:59 [place] % (Auto) 4.8 % (0.0-7.3) 07/19/21 04:59 Eos % (Auto) 0.1 % (0.0-4.3) 07/19/21 04:59 Baso % (Auto) 0.1 % (0.0-1.8) 07/19/21 04:59 Lymph # (Auto) 1.1 K/mm3 (1.2-5.4) L 07/19/21 04:59 [place] # (Auto) 0.5 K/mm3 (0.0-0.8) 07/19/21 04:59 Eos # (Auto) 0.0 K/mm3 (0.0-0.4) 07/19/21 04:59 Baso # (Auto) 0.0 K/mm3 (0.0-0.1) 07/19/21 04:59 Add Manual Diff Complete 07/27/21 04:48 Total Counted 100 07/27/21 04:48 Seg Neutrophils % Cook Jelly 07/27/21 04:48 Seg Neuts % (Manual) 92.0 % (40.0-70.0) H 07/27/21 04:48 Band Neutrophils % 1.0 % 07/26/21 06:07 Lymphocytes % (Manual) 3.0 % (13.4-35.0) L 07/27/21 04:48 Monocytes % (Manual) 5.0 % (0.0-7.3) 07/27/21 04:48 Metamyelocytes % 1.0 % 07/26/21 06:07 Myelocytes % 1.0 % 07/25/21 04:28 Nucleated RBC % 1.0 % (0.0-0.9) H 07/27/21 04:48 Seg Neutrophils # 8.7 K/mm3 (1.8-7.7) H 07/19/21 04:59 Seg Neutrophils # Man 15.2 K/mm3 (1.8-7.7) H 07/27/21 04:48 Band Neutrophils # 0.0 K/mm3 07/27/21 04:48 Lymphocytes # (Manual) 0.5 K/mm3 (1.2-5.4) L 07/27/21 04:48 Abs React Lymphs (Man) 0.0 K/mm3 07/27/21 04:48 Monocytes # (Manual) 0.8 K/mm3 (0.0-0.8) 07/27/21 04:48 Eosinophils # (Manual) 0.0 K/mm3 (0.0-0.4) 07/27/21 04:48 Basophils # (Manual) 0.0 K/mm3 (0.0-0.1) 07/27/21 04:48 Metamyelocytes # 0.0 K/mm3 07/27/21 04:48 Myelocytes # 0.0 K/mm3 07/27/21 04:48 Promyelocytes # 0.0 K/mm3 07/27/21 04:48 Blast Cells # 0.0 K/mm3 07/27/21 04:48 WBC Morphology Not Reportable 07/27/21 04:48 Hypersegmented Neuts Not Reportable 07/27/21 04:48 Hyposegmented Neuts Not Reportable 07/27/21 04:48 Hypogranular Neuts Not Reportable 07/27/21 04:48 Smudge Cells Not Reportable 07/27/21 04:48 Toxic Granulation Not Reportable 07/27/21 04:48 Toxic Vacuolation Not Reportable 07/27/21 04:48 Dohle Bodies Not Reportable 07/27/21 04:48 Pelger-Huet Anomaly Not Reportable 07/27/21 04:48 Alonzo Rods Not Reportable 07/27/21 04:48 Platelet Estimate Consistent w auto 07/27/21 04:48 Clumped Platelets Not Reportable 07/27/21 04:48 Plt Clumps, EDTA Not Reportable 07/27/21 04:48 Large Platelets Not Reportable 07/27/21 04:48 Giant Platelets Not Reportable 07/27/21 04:48 Platelet Satelliting Not Reportable 07/27/21 04:48 Plt Morphology Comment Not Reportable 07/27/21 04:48 RBC Morphology Normal 07/27/21 04:48 Dimorphic RBCs Not Reportable 07/27/21 04:48 Polychromasia Not Reportable 07/27/21 04:48 Hypochromasia Not Reportable 07/27/21 04:48 Poikilocytosis Not Reportable 07/27/21 04:48 Anisocytosis Not Reportable 07/27/21 04:48 Microcytosis Not Reportable 07/27/21 04:48 Macrocytosis Not Reportable 07/27/21 04:48 Spherocytes Not Reportable 07/27/21 04:48 Pappenheimer Bodies Not Reportable 07/27/21 04:48 Sickle Cells Not Reportable 07/27/21 04:48 Target Cells Not Reportable 07/27/21 04:48 Tear Drop Cells Not Reportable 07/27/21 04:48 Ovalocytes Not Reportable 07/27/21 04:48 Helmet Cells Not Reportable 07/27/21 04:48 Jacinto-[place]orton Bodies Not Reportable 07/27/21 04:48 [place] Rings Not Reportable 07/27/21 04:48 [place] Cells Not Reportable 07/27/21 04:48 Bite Cells Not Reportable 07/27/21 04:48 Crenated Cell Not Reportable 07/27/21 04:48 Elliptocytes Not Reportable 07/27/21 04:48 Acanthocytes (Spur) Not Reportable 07/27/21 04:48 Rouleaux Not Reportable 07/27/21 04:48 Hemoglobin C Crystals Not Reportable 07/27/21 04:48 Schistocytes Not Reportable 07/27/21 04:48 Malaria parasites Not Reportable 07/27/21 04:48 Jarvis Bodies Not Reportable 07/27/21 04:48 Hem Pathologist Commnt No 07/27/21 04:48 PT 15.1 Sec. (12.2-14.9) H 07/18/21 16:00 INR 1.13 (0.87-1.13) 07/18/21 16:00 APTT 31.9 Sec. (24.2-36.6) 07/18/21 16:00 D-Dimer 1503.43 ng/mlDDU (0-234) H 08/01/21 06:00 ABG pH 7.477 (7.320-7.450) H 08/01/21 04:00 POC ABG pCO2 41.3 mmHg (32.0-48.0) 08/01/21 04:00 ABG pCO2 35.2 mm Hg 07/19/21 Unknown POC ABG pO2 89.8 mmHg (83-108) 08/01/21 04:00 ABG pO2 64.2 mm Hg (80.0-90.0) L 07/19/21 Unknown POC ABG HCO3 29.9 08/01/21 04:00 ABG HCO3 20.1 mmol/L (20.0-26.0) 07/19/21 Unknown ABG O2 Saturation 97.0 (0-100) 08/01/21 04:00 ABG O2 Content 14.3 (0.0-44) 07/19/21 Unknown POC ABG Base Excess 5.8 08/01/21 04:00 ABG Base Excess -4.5 mmol/L (-2.0-3.0) L 07/19/21 Unknown ABG Hemoglobin 11.4 (12.0-17.5) L 08/01/21 04:00 ABG Oxyhemoglobin 96.4 (94-98) 08/01/21 04:00 ABG Carboxyhemoglobin 0.8 % (0.0-5.0) 07/19/21 Unknown ABG Methemoglobin 0.3 (0.0-1.5) 08/01/21 04:00 ABG Sodium 134.4 mmol/L (136.0-145.0) L 08/01/21 04:00 ABG Potassium 4.3 mmol/L (3.40-4.50) 08/01/21 04:00 ABG Chloride 99.0 mmol/L (98-107) 08/01/21 04:00 ABG Glucose 173 mg/dL (65-95) H 08/01/21 04:00 Oxyhemoglobin 91.9 % (95.0-99.0) L 07/19/21 Unknown Carboxyhemoglobin 0.3 (0.5-1.5) L 08/01/21 04:00 FiO2 100 % 07/19/21 Unknown FiO2 % 40.0 08/01/21 04:00 Sodium 136 mmol/L (137-145) L 08/01/21 06:00 Potassium 4.8 mmol/L (3.6-5.0) 08/01/21 06:00 Chloride 98.7 mmol/L (98-107) 08/01/21 06:00 Carbon Dioxide 31 mmol/L (22-30) H 08/01/21 06:00 Anion Gap 11 mmol/L 08/01/21 06:00 BUN 28 mg/dL (7-17) H 08/01/21 06:00 Creatinine 0.5 mg/dL (0.6-1.2) L 08/01/21 06:00 Estimated GFR > 60 ml/min 08/01/21 06:00 BUN/Creatinine Ratio 56 % 08/01/21 06:00 Glucose 154 mg/dL (65-100) H 08/01/21 06:00 POC Glucose 153 mg/dL (70-105) H 08/01/21 04:58 Lactic Acid 1.40 mmol/L (0.7-2.0) 07/18/21 16:00 Calcium 9.7 mg/dL (8.4-10.2) 08/01/21 06:00 Phosphorus 3.30 mg/dL (2.5-4.5) 08/01/21 06:00 Magnesium 2.10 mg/dL (1.7-2.3) 08/01/21 06:00 Ferritin 244.0 ng/mL (10.0-200.0) H 08/01/21 06:00 Total Bilirubin 0.20 mg/dL (0.1-1.2) 07/22/21 04:39 AST 38 units/L (5-40) 07/22/21 04:39 ALT 29 units/L (7-56) 07/22/21 04:39 Alkaline Phosphatase 83 units/L (35-129) 07/22/21 04:39 Ammonia 37.0 umol/L (25-60) 07/18/21 16:00 Lactate Dehydrogenase 369 units/L (91-180) H 08/01/21 06:00 Total Creatine Kinase 157 units/L (30-135) H 07/18/21 16:00 Troponin T 0.106 ng/mL (0.00-0.029) H* 07/18/21 16:00 C-Reactive Protein 0.20 mg/dL (0.00-1.30) 08/01/21 06:00 Total Protein 6.4 g/dL (6.3-8.2) 07/22/21 04:39 Albumin 2.9 g/dL (3.9-5) L 07/22/21 04:39 Albumin/Globulin Ratio 0.8 % 07/22/21 04:39 Triglycerides 156 mg/dL (2-149) H 07/18/21 16:00 Cholesterol 127 mg/dL (50-199) 07/18/21 16:00 LDL Cholesterol Direct 64 mg/dL (50-130) 07/18/21 16:00 HDL Cholesterol 33 mg/dL (40-59) L 07/18/21 16:00 Cholesterol/HDL Ratio 3.84 % 07/18/21 16:00 Procalcitonin < 0.05 ng/mL (<0.15) 07/26/21 13:53 TSH 0.469 mlU/mL (0.270-4.200) 07/21/21 04:52 Free T4 1.05 ng/dL (0.76-1.46) 07/21/21 04:52 Arterial Blood Glucose 173 mg/dL (65-95) H 08/01/21 04:00 Arterial Blood Ionized Calcium 4.7 mg/dL (4.6-5.3) 08/01/21 04:00 Urine Color Yellow (Yellow) 07/18/21 Unknown Urine Turbidity Slightly-cloudy (Clear) 07/18/21 Unknown Urine pH 5.0 (5.0-7.0) 07/18/21 Unknown Ur Specific [place] 1.020 (1.003-1.030) 07/18/21 Unknown Urine Protein >500 mg/dL (Negative) 07/18/21 Unknown Urine Glucose (UA) Neg mg/dL (Negative) 07/18/21 Unknown Urine Ketones 20 mg/dL (Negative) 07/18/21 Unknown Urine Blood Neg (Negative) 07/18/21 Unknown Urine Nitrite Neg (Negative) 07/18/21 Unknown Urine Bilirubin Neg (Negative) 07/18/21 Unknown Urine Urobilinogen < 2.0 mg/dL (<2.0) 07/18/21 Unknown Ur Leukocyte Esterase Neg (Negative) 07/18/21 Unknown Urine WBC (Auto) 9.0 /HPF (0.0-6.0) H 07/18/21 Unknown Urine RBC (Auto) 2.0 /HPF (0.0-6.0) 07/18/21 Unknown U Epithel Cells (Auto) 1.0 /HPF (0-13.0) 07/18/21 Unknown Urine Bacteria (Auto) 1+ /HPF (Negative) 07/18/21 Unknown Amorphous Crystals Few 07/18/21 Unknown Urine Mucus Few /HPF 07/18/21 Unknown Vancomycin Trough 22.9 ug/mL (5.0-20.0) H 07/25/21 04:28 Salicylates < 0.3 mg/dL (2.8-20.0) L 07/18/21 16:00 Urine Opiates Screen Negative 07/18/21 Unknown Urine Methadone Screen Negative 07/18/21 Unknown Acetaminophen 5.7 ug/mL (10.0-30.0) L 07/18/21 16:00 Ur Barbiturates Screen Negative 07/18/21 Unknown Ur Phencyclidine Scrn Negative 07/18/21 Unknown Ur Amphetamines Screen Negative 07/18/21 Unknown U Benzodiazepines Scrn Negative 07/18/21 Unknown Urine Cocaine Screen Negative 07/18/21 Unknown U Marijuana (THC) Screen Negative 07/18/21 Unknown Drugs of Abuse Note Disclamer 07/18/21 Unknown Plasma/Serum Alcohol < 0.01 % (0-0.07) 07/18/21 16:00 Coronavirus (PCR) Positive (Negative) A 07/19/21 Unknown Blood Type O POSITIVE 07/18/21 16:05 Antibody Screen Negative 07/18/21 16:05 Guzman/IV: Voiding Method Indwelling Catheter Active Medications - Current Medications Current Medications: Generic Name Dose Route Start Last Admin Trade Name Freq PRN Reason Stop Dose Admin Acetaminophen 650 mg 07/18/21 22:49 Acetaminophen 325 Mg Tab PO Q4H PRN Pain MILD(1-3)/Fever >100.5/URENA Lipase/Protease/Amylase 1 each 07/18/21 22:56 Lipase 10,500/Protease 25,000/Amylase 43,750 (Units) Dr Alvarado FEEDTUBE PRN PRN For Clogged Feeding Tube Bisacodyl 10 mg 07/27/21 09:02 07/27/21 11:16 Bisacodyl 10 Mg Rect Supp [place] 10 mg QDAY PRN Administration Constip unreliev by MOM/or NPO Enoxaparin Sodium 100 mg 07/19/21 10:00 08/01/21 09:04 Enoxaparin 100 Mg/1 Ml Inj SUB-Q 100 mg Q12HR NICOLE Administration Protocol Famotidine 20 mg 07/18/21 22:00 08/01/21 09:04 Famotidine 20 Mg/2 Ml Inj IV 20 mg BID NICOLE Administration Fentanyl 50 mcg 07/18/21 14:41 Fentanyl 100 Mcg/2 Ml Inj IV Q10MIN PRN ANALGESIA Fentanyl 50 mcg 08/01/21 09:00 08/01/21 09:05 Fentanyl 100 Mcg/2 Ml Inj IV 50 mcg Q4H PRN Administration Pain , Severe (7-10) Haloperidol Lactate 5 mg 08/01/21 10:29 Haloperidol Lactate 5 Mg/1 Ml Inj IV Q6H PRN Agitation Hydralazine HCl 20 mg 08/01/21 11:00 Hydralazine 20 Mg/1 Ml Inj IV Q4HR NICOLE Hydrophilic Ointment 1 applic 07/18/21 14:41 Lip Therapy Vaseline TP Q2HR PRN Dry Lips Cefepime HCl 2 gm in 100 mls @ 200 mls/hr 07/25/21 14:00 08/01/21 06:15 Cefepime/Ns 2 Gm/100 Ml IV 08/02/21 06:29 200 mls/hr Q8H NICOLE Administration Protocol Insulin Glargine 5 units 07/27/21 22:00 07/31/21 22:48 Insulin Glargine 100 Units/Ml SUB-Q 5 units QHS NICOLE Administration Insulin Human Lispro 0 unit 07/27/21 12:00 08/01/21 06:15 Insulin Lispro 100 Unit/Ml SUB-Q 3 unit Q6HR NICOLE Administration Protocol Lorazepam 1 mg 08/01/21 09:00 Lorazepam 2 Mg/Ml Vial IV Q4H PRN Anxiety Methylprednisolone Sodium Succinate 40 mg 07/27/21 14:00 08/01/21 06:14 Methylprednisolone Sod Succinate 40 Mg/1 Ml Inj IV 40 mg Q8HR NICOLE Administration Midazolam HCl 2 mg 07/18/21 18:11 07/22/21 07:56 Midazolam 2 Mg/2 Ml Inj IV 2 mg Q10MIN PRN Administration Sedation Multi-Ingred Cream/Lotion/Oil/Oint 1 applic 07/18/21 14:41 Mineral Oil/Petrolatum, White Ophth Oint 3.5 Gm OU Q4HR PRN Dry Eye(s) Ondansetron HCl 4 mg 07/18/21 22:49 Ondansetron 4 Mg/2 Ml Inj IV Q8H PRN Nausea And Vomiting Senna/Docusate Sodium 1 tab 07/18/21 22:00 07/31/21 22:51 Sennosides/Docusate Sodium 8.6/50 Mg Tab FEEDTUBE 1 tab BID NICOLE Administration Simple Syrup 15 ml 07/18/21 22:56 Simple Syrup 15 Ml FEEDTUBE PRN PRN Hypoglycemia Simple Syrup 30 ml 07/18/21 22:56 Simple Syrup 15 Ml FEEDTUBE PRN PRN Hypoglycemia Sodium Bicarbonate 325 mg 07/18/21 22:56 Sodium Bicarbonate 325 Mg Tab FEEDTUBE PRN PRN For Clogged Feeding Tube Sodium Chloride 10 ml 07/19/21 10:00 08/01/21 09:06 Sodium Chloride 0.9% 10 Ml Flush Syringe IV 10 ml BID NICOLE Administration Sodium Chloride 10 ml 07/18/21 22:49 Sodium Chloride 0.9% 10 Ml Flush Syringe IV PRN PRN LINE FLUSH Sodium Chloride 5 ml 07/20/21 14:38 Sodium Chloride 0.9% 1000 Ml Iv Soln IV PRN PRN ART-LINE Nutrition/Malnutrition Assess - Dietary Evaluation Nutrition/Malnutrition Findings: Nutrition Notes Start: 07/19/21 09:15 Freq: Status: Active Protocol: Document 07/29/21 11:53 MK (Rec: 07/29/21 11:55 MK [id number]) Nutrition Notes Initial or Follow up Reassessment Current Diagnosis Acute Kidney Injury,Diabetes, Hypertension,Respiratory Failure Other Pertinent Diagnosis COVID Current Diet Vital HP at 55 ml/hr Labs/Tests BUN 34 Pertinent Medications Solumedrol Height 5 ft 6 in Weight 104.8 kg [place] Body Weight (kg) 59.09 BMI 37.3 Weight Status Obese Subjective/Other Information TF remains at goal and pt tolerating. Percent of energy/protein needs met: 93%/98% Burn Absent Trauma Absent Difficulty In Swallowing Current % PO Negligible Minimum of two criteria No physical signs of malnutrition #1 Nutrition Diagnosis Inadequate oral intake Diagnosis Progress(for reassessment Continues documentation) Is patient on ventilator? Yes Is Patient Ambulatory and/or Out of Bed No REE-([facility]-confined to bed) 2001.624 Kcal/Kg value to use for calculation 14 Approximate Energy Requirements Using 1467 kcal/Kg Calculation Used for Recommendations Kcal/kg Additional Notes Protein: (>2g/kg IBW) >118g Fluid: 1 ml/kcal or per MD Nutrition Intervention Change Diet Order: Continue Vital HP Nutrition Support: Vital HP at 55 ml/hr Flush 50 ml q4h Kcal 1,320 Protein (gm) 116 Fluid (mL) 1,104 Goal #1 Meet at least 75% of protein and kcal needs via TF Anticipated Discharge Needs: Unable to determine at this time Follow-Up By: 08/03/21 Additional Comments F/u: TF tolerance and renal function
[2021-07-30] MEDS: INSULIN GLARGINE 100 UNITS/ML SUB-Q SCH (22:24)
[2021-07-30] MEDS: QUEtiapine 25 MG TAB PO SCH (22:25)
[2021-07-31] MEDS: FREE WATER PO SCH ×6 (01:19→22:54)
[2021-07-31] MEDS: INSULIN LISPRO 100 UNIT/ML SUB-Q SCH ×4 (01:19→18:30)
[2021-07-31] MEDS ORDERED: SODIUM CHLORIDE 0.9% 500 ML 500 ML IV ONE (01:23)
[2021-07-31] MEDS: hydrALAZINE 10 MG TAB PO SCH ×3 (01:28→16:28)
--- NOTE | 2021-07-31 05:22 | XRay Report ---
CHEST 1 VIEW 07/31/2021 5:00 AM INDICATION / CLINICAL INFORMATION: hypoxia. COMPARISON: 07/30/2021 FINDINGS: SUPPORT DEVICES: Stable, satisfactory device positioning. HEART / MEDIASTINUM: No significant abnormality. LUNGS / PLEURA: Increased opacity throughout the left lung appears increased No pneumothorax. Signer Name: Jt Perez MD Signed: 07/31/2021 5:17 AM Workstation Name: [email or web address][id number]
[2021-07-31] MEDS: CEFEPIME/NS 2 GM/100 ML 2 GM/100 ML BAG IV SCH ×3 (05:23→22:45)
[2021-07-31] MEDS: methylPREDNISolone Sod Succinate 40 MG/1 ML INJ IV SCH ×3 (05:24→22:49)
[2021-07-31] MEDS: fentaNYL DRIP Premix 2,000 MCG/100 ML BAG IV SCH ×2 (05:24→16:28)
[2021-07-31 07:41] LABS: Hematocrit 33.9 % (30.3-42.9); Mean Corpuscular HGB Conc 33 % (30-34); Mean Corpuscular Volume 88 fl (79-97); Platelet Count 234 K/mm3 (140-440); Red Blood Count 3.85 M/mm3 (3.65-5.03); Red Cell Distribution Width 14.9 % (13.2-15.2)
[2021-07-31 08:27] LABS: Blood Urea Nitrogen 32 mg/dL (7-17); Calcium 9.7 mg/dL (8.4-10.2); Hemolysis Index 2
[2021-07-31 08:28] LABS: BUN/Creatinine Ratio 53
--- NOTE | 2021-07-31 08:44 | Progress Note ---
Assessment and Plan - Patient Problems (1) Acute respiratory failure due to COVID-19 Current Visit: Yes Status: Acute Subjective Date of service: 07/31/21 Principal diagnosis: COVID pneumonia Interval history: on the vent Objective Vital Signs Temp Pulse Pulse Resp BP Pulse Ox 07/31/21 08:00 99.7 F H 07/31/21 06:31 83 18 159/92 98 07/31/21 06:15 106 H 16 159/92 98 07/31/21 06:00 120 H 16 162/89 97 07/31/21 05:45 118 H 16 172/105 98 07/31/21 05:31 100 H 15 172/105 98 07/31/21 05:15 172/105 98 07/31/21 05:00 114 H 17 167/94 98 07/31/21 04:45 88 12 166/98 97 07/31/21 04:31 84 18 167/94 97 07/31/21 04:15 84 26 H 167/94 96 07/31/21 04:00 99.6 F 98 H 79 13 167/94 95 07/31/21 03:55 116 H 165/59 97 07/31/21 03:45 135 H 18 169/98 98 07/31/21 03:30 84 20 111/58 96 07/31/21 03:15 103 H 16 169/98 96 07/31/21 03:00 105 H 12 169/98 96 07/31/21 02:45 127 H 16 111/58 99 07/31/21 02:31 51 L 26 H 111/58 100 07/31/21 02:15 44 L 26 H 111/58 99 07/31/21 02:01 44 L 26 H 111/63 99 07/31/21 01:46 45 L 26 H 111/58 100 07/31/21 01:31 44 L 26 H 96/51 100 07/31/21 01:28 59 L 111/58 07/31/21 01:15 46 L 26 H 96/51 99 07/31/21 01:00 48 L 26 H 111/58 97 07/31/21 00:45 48 L 26 H 96/51 99 07/31/21 00:31 53 L 26 H 96/51 98 07/31/21 00:15 49 L 26 H 96/51 99 07/31/21 00:00 98.5 F 46 L 69 26 H 96/51 97 07/30/21 23:45 50 L 26 H 157/74 98 07/30/21 23:31 54 L 26 H 157/74 98 07/30/21 23:15 56 L 26 H 157/74 98 07/30/21 23:01 60 26 H 118/64 97 07/30/21 22:45 62 26 H 157/74 98 07/30/21 22:31 73 26 H 157/74 97 07/30/21 22:15 87 15 157/74 98 07/30/21 22:00 67 26 H 157/74 93 07/30/21 21:45 65 26 H 145/78 98 07/30/21 21:31 62 26 H 145/78 98 07/30/21 21:15 64 17 145/78 98 07/30/21 21:00 75 24 145/78 94 07/30/21 20:45 66 26 H 142/70 97 07/30/21 20:43 66 26 H 142/70 97 07/30/21 20:31 65 26 H 177/96 97 07/30/21 20:28 67 26 H 177/96 97 07/30/21 20:15 70 26 H 177/96 97 07/30/21 20:01 110 H 15 177/96 94 07/30/21 20:00 98.5 F 69 69 95 07/30/21 19:52 68 116/38 98 07/30/21 19:45 75 14 163/102 98 07/30/21 19:31 71 11 L 163/102 98 07/30/21 19:15 70 26 H 163/102 98 07/30/21 19:00 107 H 13 163/102 95 07/30/21 18:45 71 20 172/88 98 07/30/21 18:31 72 26 H 172/88 97 07/30/21 18:15 115 H 15 172/88 99 07/30/21 18:01 73 12 172/88 95 07/30/21 17:45 76 20 185/98 98 07/30/21 17:31 103 H 15 185/98 98 07/30/21 17:15 90 21 185/98 98 07/30/21 17:00 105 H 13 185/98 92 07/30/21 16:45 120 H 15 172/88 98 07/30/21 16:31 116 H 14 172/88 98 07/30/21 16:15 112 H 21 164/94 98 07/30/21 16:01 111 H 19 164/94 94 07/30/21 16:00 99.0 F 70 95 07/30/21 15:45 119 H 14 154/79 98 07/30/21 15:31 64 26 H 154/79 98 07/30/21 15:15 71 26 H 154/79 98 07/30/21 15:00 100 H 26 H 154/79 96 07/30/21 14:45 143 H 11 L 162/76 98 07/30/21 14:31 65 26 H 162/76 99 07/30/21 14:15 64 26 H 162/76 99 07/30/21 14:00 74 26 H 162/76 97 07/30/21 13:45 63 26 H 151/86 99 07/30/21 13:31 61 26 H 151/86 99 07/30/21 13:15 61 26 H 151/86 99 07/30/21 13:10 63 157/61 07/30/21 13:00 80 26 H 151/86 97 07/30/21 12:45 64 26 H 157/90 99 07/30/21 12:30 62 26 H 157/90 99 07/30/21 12:15 63 26 H 157/90 99 07/30/21 12:00 60 26 H 157/90 98 07/30/21 11:50 98.2 F 07/30/21 11:45 75 26 H 160/78 99 07/30/21 11:31 63 26 H 160/78 98 07/30/21 11:15 62 26 H 160/78 98 07/30/21 11:00 60 26 H 160/78 96 07/30/21 10:45 66 26 H 144/80 98 07/30/21 10:31 66 26 H 144/80 98 07/30/21 10:15 62 26 H 144/80 97 07/30/21 10:00 63 26 H 144/80 95 07/30/21 09:45 67 26 H 171/113 97 07/30/21 09:31 78 26 H 171/113 96 07/30/21 09:15 121 H 19 171/113 97 07/30/21 09:01 133 H 22 171/113 95 07/30/21 08:45 60 26 H 139/75 98 - Physical Examination General: Other (intubated on the vent,,exam deferred) Neck: Positive: neck supple Abdomen: Positive: Soft - Labs and Meds CBC 07/31/21 Range/Units 05:50 WBC 11.5 H (4.5-11.0) K/mm3 RBC 3.85 (3.65-5.03) M/mm3 Hgb 11.0 (10.1-14.3) gm/dl Hct 33.9 (30.3-42.9) % Plt Count 234 (140-440) K/mm3 Comprehensive Metabolic Panel 07/31/21 Range/Units 05:50 Sodium 140 (137-145) mmol/L Potassium 4.8 (3.6-5.0) mmol/L Chloride 102.0 (98-107) mmol/L Carbon Dioxide 29 (22-30) mmol/L BUN 32 H (7-17) mg/dL Creatinine 0.6 (0.6-1.2) mg/dL Glucose 158 H (65-100) mg/dL Calcium 9.7 (8.4-10.2) mg/dL - Imaging and Cardiology EKG: report reviewed
[2021-07-31] MEDS ORDERED: EPINEPHrine 1 MG/10 ML SYRINGE ONE (09:10)
[2021-07-31] MEDS ORDERED: SODIUM BICARB 8.4% 50 MEQ/50 ML SYRINGE IV ONE (09:11)
[2021-07-31] MEDS: MIDAZOLAM 100 MG in SODIUM CHLORIDE 0.9% 80 ML IV SCH (09:37)
[2021-07-31] MEDS: FAMOTIDINE 20 MG/2 ML INJ IV SCH ×2 (09:54→22:49)
[2021-07-31] MEDS: SENNOSIDES/DOCUSATE SODIUM 8.6/50 MG TAB FEEDTUBE SCH ×2 (09:54→22:51)
[2021-07-31] MEDS: ENOXAPARIN 100 MG/1 ML INJ SUB-Q SCH ×2 (09:54→22:49)
--- NOTE | 2021-07-31 11:17 | Progress Note ---
Assessment and Plan 55 y/o obese female with acute respiratory failure, pulmonary embolism, now with renal failure, most likely all secondary to COVID 19 07/31/21: Drop PEEP to 6 later this afternoon and attempt to wean sedation to off. patient will likely not tolerate this. If she does then will try PSV this afternoon. If not, will plan to extubate with bipap available PRN early tomorrow morning. Discussed this with daughters over the phone. Asked nursing to address transducer with art line. I suspect the positioning is incorrect. 07/30/21: Will wean PEEP to 10 this afternoon. If tolerates then around 6-8 PM may drop to 8. Would not go any further than that today. Keep FiO2 at 40%. Once PEEP around 6, can start to lighten sedation and try PSV trials. Prognosis is still guarded. Spoke with family over the phone to update them on progress but also explain to them their family member is still gravely ill. Keep steroids at current dose at leas through the weekend. 07/29/21: Wean FiO2 as tolerated. PaO2 is good. Continue current dose of steroids. Changed Hydralazine. Continue anticoagulation. May be able to start weaning PEEP tomorrow. 07/28/21: Repeat CXR today to check ET tube. Wean steroids when able. Continue to wean FiO2 as tolerated. Do not move PEEP until FiO2 is at 45-50%. Guarded prognosis remains. Will call family now. 07/27/21: Ok with advancing ET tube 2-3 cm. Continue to wean FiO2 as tolerated. Repeat CXR post advancement of ET tube. Dropped steroids too 40q8 07/26/21: Back down to 65% like on 07/22 but PEEP is at 12. Will monitor closely. COntinue current level of sedation and high dose steroids. Prognosis is very very guarded. 07/23/21: Dropped FiO2 to 70. Hopeful to wean back down. Keep peep elevated until FiO2 at 50-55%. Continue High dose steroids. Keep RASS at -4. Na is better. Will stop D5W. Updated Daughter (Linda) and GodDaughter over the phone. If someone could please call them at least one day over the weekend I will call them again on Monday. Prognosis remains very guarded. Explained to them the high mortality rate associated with COVID and mechanical ventilation. 07/22/21: Dropped Fio2 to 65. Continue to wean for sats >88%. keep elevated peep until FiO2 around 50-55% so hopefully in the next 24-36 hours we can get there. Continue sedation to keep rass at -4. Continue high dose steroids. Will continue D5W for now until Free water can control sodium. need CBC in the am along with BMP. Prognosis still remains guarded. Continue lovenox 07/21/21: Dropped FiO2 to 80%. Continue to wean for sats >88%. Keep peep elevated until FiO2 around 50-55%. Continue remdesivir and adequate levels of sedation. Continue high dose steroids. No proning for now. Continue therapeutic lovenox. Prognosis remains guarded. 07/20/21: COVID positive. Started Remdesivir. Renal function improved. COntinue high dose steroids at current dosing for now. Suggest repeat ABG later this afternoon if able, may need art line but BP stable for now. No proning. Agree with therapeutic Lovenox. Guarded prognosis. 1. Follow up COVID testing, continue isolation 2. Agree with high dose IV steroids, if positive, will change to solumedrol 125q8 3. If positive then would need remdesivir and Actemra, hopefully still a candidate given bump in renal function 4. Unable to prone patient at moment, but did increase PEEP to 20 and ordered repeat ABG at 1400 5 Very very guarded prognosis CCT 31 minutes. Subjective Date of service: 07/31/21 Principal diagnosis: COVID pneumonia Interval history: Down to 40% and 8 of PEEP. Good sats. Had an episode of desats when sedation was lowered and became agitated. Objective Vital Signs - 12hr 07/30/21 07/30/21 07/30/21 23:15 23:31 23:45 Temperature Pulse Rate 56 L 54 L 50 L Pulse Rate [ From Monitor] Respiratory 26 H 26 H 26 H Rate Blood Pressure 157/74 157/74 157/74 O2 Sat by Pulse 98 98 98 Oximetry 07/31/21 07/31/21 07/31/21 00:00 00:15 00:31 Temperature 98.5 F Pulse Rate 46 L 49 L 53 L Pulse Rate [ 69 From Monitor] Respiratory 26 H 26 H 26 H Rate Blood Pressure 96/51 96/51 96/51 O2 Sat by Pulse 97 99 98 Oximetry 0907/31/21 07/31/21 00:45 01:00 01:15 Temperature Pulse Rate 48 L 48 L 46 L Pulse Rate [ From Monitor] Respiratory 26 H 26 H 26 H Rate Blood Pressure 96/51 111/58 96/51 O2 Sat by Pulse 99 97 99 Oximetry 07/31/21 07/31/21 07/31/21 01:28 01:31 01:46 Temperature Pulse Rate 59 L 44 L 45 L Pulse Rate [ From Monitor] Respiratory 26 H 26 H Rate Blood Pressure 111/58 96/51 111/58 O2 Sat by Pulse 100 100 Oximetry 07/31/21 07/31/21 07/31/21 02:01 02:15 02:31 Temperature Pulse Rate 44 L 44 L 51 L Pulse Rate [ From Monitor] Respiratory 26 H 26 H 26 H Rate Blood Pressure 111/63 111/58 111/58 O2 Sat by Pulse 99 99 100 Oximetry 07/31/21 07/31/21 07/31/21 02:45 03:00 03:15 Temperature Pulse Rate 127 H 105 H 103 H Pulse Rate [ From Monitor] Respiratory 16 12 16 Rate Blood Pressure 111/58 169/98 169/98 O2 Sat by Pulse 99 96 96 Oximetry 07/31/21 07/31/21 07/31/21 03:30 03:45 03:55 Temperature Pulse Rate 84 135 H 116 H Pulse Rate [ From Monitor] Respiratory 20 18 Rate Blood Pressure 111/58 169/98 165/59 O2 Sat by Pulse 96 98 97 Oximetry 07/31/21 07/31/21 07/31/21 04:00 04:15 04:31 Temperature 99.6 F Pulse Rate 98 H 84 84 Pulse Rate [ 79 From Monitor] Respiratory 13 26 H 18 Rate Blood Pressure 167/94 167/94 167/94 O2 Sat by Pulse 95 96 97 Oximetry 07/31/21 07/31/21 07/31/21 04:45 05:00 05:15 Temperature Pulse Rate 88 114 H Pulse Rate [ From Monitor] Respiratory 12 17 Rate Blood Pressure 166/98 167/94 172/105 O2 Sat by Pulse 97 98 98 Oximetry 07/31/21 07/31/21 07/31/21 05:31 05:45 06:00 Temperature Pulse Rate 100 H 118 H 120 H Pulse Rate [ From Monitor] Respiratory 15 16 16 Rate Blood Pressure 172/105 172/105 162/89 O2 Sat by Pulse 98 98 97 Oximetry 07/31/21 07/31/21 07/31/21 06:15 06:31 08:00 Temperature 99.7 F H Pulse Rate 106 H 83 81 Pulse Rate [ From Monitor] Respiratory 16 18 Rate Blood Pressure 159/92 159/92 145/50 O2 Sat by Pulse 98 98 98 Oximetry Constitutional: no acute distress, comatose ENT: other (orally intubated and sedated) Ascultation: Bilateral: diminished breath sounds Cardiovascular: regular rate and rhythm Gastrointestinal: normoactive bowel sounds, soft, non-tender Integumentary: normal Extremities: no cyanosis Neurologic: other (Sedated) CBC and BMP: 07/31/21 05:50 07/31/21 05:50 ABG, PT/INR, D-dimer: ABG ABG pH 7.436 (7.320-7.450) 07/31/21 04:00 POC ABG pCO2 41.1 mmHg (32.0-48.0) 07/31/21 04:00 ABG pCO2 35.2 mm Hg 07/19/21 Unknown POC ABG pO2 88.8 mmHg (83-108) 07/31/21 04:00 ABG pO2 64.2 mm Hg (80.0-90.0) L 07/19/21 Unknown POC ABG HCO3 27.0 07/31/21 04:00 ABG O2 Saturation 96.6 (0-100) 07/31/21 04:00 PT/INR, D-dimer PT 15.1 Sec. (12.2-14.9) H 07/18/21 16:00 INR 1.13 (0.87-1.13) 07/18/21 16:00 D-Dimer 1818.72 ng/mlDDU (0-234) H 07/30/21 05:00 Abnormal lab findings: Abnormal Labs 07/18/21 07/18/21 07/18/21 16:00 16:00 16:00 WBC RBC Hgb Hct RDW 15.3 H Lymph % (Auto) 7.9 L Lymph # (Auto) 0.8 L Seg Neutrophils % 86.3 H Seg Neuts % (Manual) Lymphocytes % (Manual) Nucleated RBC % Seg Neutrophils # 9.0 H Seg Neutrophils # Man Lymphocytes # (Manual) Monocytes # (Manual) PT 15.1 H D-Dimer > 99343 H ABG pH POC ABG pCO2 POC ABG pO2 ABG pO2 ABG O2 Saturation ABG Base Excess ABG Hemoglobin ABG Oxyhemoglobin ABG Sodium ABG Chloride ABG Glucose Oxyhemoglobin Carboxyhemoglobin Sodium Potassium 3.5 L Chloride Carbon Dioxide 20 L BUN 19 H Creatinine Glucose 140 H POC Glucose Calcium Magnesium Ferritin AST 43 H Lactate Dehydrogenase 705 H Total Creatine Kinase 157 H Troponin T 0.106 H* C-Reactive Protein 33.00 H Total Protein Albumin 3.2 L Triglycerides 156 H HDL Cholesterol 33 L Arterial Blood Glucose Arterial Blood Ionized Calcium Urine WBC (Auto) Vancomycin Trough Salicylates Acetaminophen Coronavirus (PCR) 07/18/21 07/18/21 07/18/21 16:00 16:00 16:00 WBC RBC Hgb Hct RDW Lymph % (Auto) Lymph # (Auto) Seg Neutrophils % Seg Neuts % (Manual) Lymphocytes % (Manual) Nucleated RBC % Seg Neutrophils # Seg Neutrophils # Man Lymphocytes # (Manual) Monocytes # (Manual) PT D-Dimer ABG pH POC ABG pCO2 POC ABG pO2 ABG pO2 ABG O2 Saturation ABG Base Excess ABG Hemoglobin ABG Oxyhemoglobin ABG Sodium ABG Chloride ABG Glucose Oxyhemoglobin Carboxyhemoglobin Sodium Potassium Chloride Carbon Dioxide BUN Creatinine Glucose POC Glucose Calcium Magnesium Ferritin 657.0 H AST Lactate Dehydrogenase Total Creatine Kinase Troponin T C-Reactive Protein Total Protein Albumin Triglycerides HDL Cholesterol Arterial Blood Glucose Arterial Blood Ionized Calcium Urine WBC (Auto) Vancomycin Trough Salicylates < 0.3 L Acetaminophen 5.7 L Coronavirus (PCR) 07/18/21 07/18/21 07/19/21 Unknown Unknown 04:33 WBC RBC Hgb Hct RDW Lymph % (Auto) Lymph # (Auto) Seg Neutrophils % Seg Neuts % (Manual) Lymphocytes % (Manual) Nucleated RBC % Seg Neutrophils # Seg Neutrophils # Man Lymphocytes # (Manual) Monocytes # (Manual) PT D-Dimer ABG pH 7.275 L POC ABG pCO2 POC ABG pO2 68.7 L 53.1 L ABG pO2 ABG O2 Saturation ABG Base Excess ABG Hemoglobin ABG Oxyhemoglobin 88.3 L 85.3 L ABG Sodium ABG Chloride 109.0 H ABG Glucose 170 H 150 H Oxyhemoglobin Carboxyhemoglobin 0 L 0.3 L Sodium Potassium Chloride Carbon Dioxide BUN Creatinine Glucose POC Glucose Calcium Magnesium Ferritin AST Lactate Dehydrogenase Total Creatine Kinase Troponin T C-Reactive Protein Total Protein Albumin Triglycerides HDL Cholesterol Arterial Blood Glucose 170 H 150 H Arterial Blood Ionized Calcium Urine WBC (Auto) 9.0 H Vancomycin Trough Salicylates Acetaminophen Coronavirus (PCR) 07/19/21 07/19/21 07/19/21 04:59 04:59 Unknown WBC RBC Hgb Hct RDW 16.0 H Lymph % (Auto) 10.7 L Lymph # (Auto) 1.1 L Seg Neutrophils % 84.3 H Seg Neuts % (Manual) Lymphocytes % (Manual) Nucleated RBC % Seg Neutrophils # 8.7 H Seg Neutrophils # Man Lymphocytes # (Manual) Monocytes # (Manual) PT D-Dimer ABG pH POC ABG pCO2 POC ABG pO2 ABG pO2 ABG O2 Saturation ABG Base Excess ABG Hemoglobin ABG Oxyhemoglobin ABG Sodium ABG Chloride ABG Glucose Oxyhemoglobin Carboxyhemoglobin Sodium Potassium Chloride 108.8 H Carbon Dioxide 21 L BUN 28 H Creatinine 1.8 H Glucose 145 H POC Glucose Calcium 7.8 L Magnesium Ferritin AST Lactate Dehydrogenase Total Creatine Kinase Troponin T C-Reactive Protein Total Protein 6.2 L Albumin 3.2 L Triglycerides HDL Cholesterol Arterial Blood Glucose Arterial Blood Ionized Calcium Urine WBC (Auto) Vancomycin Trough Salicylates Acetaminophen Coronavirus (PCR) Positive A 07/19/21 07/20/21 07/20/21 Unknown 00:14 04:44 WBC RBC Hgb Hct RDW Lymph % (Auto) Lymph # (Auto) Seg Neutrophils % Seg Neuts % (Manual) Lymphocytes % (Manual) Nucleated RBC % Seg Neutrophils # Seg Neutrophils # Man Lymphocytes # (Manual) Monocytes # (Manual) PT D-Dimer ABG pH POC ABG pCO2 POC ABG pO2 ABG pO2 64.2 L ABG O2 Saturation 93.2 L ABG Base Excess -4.5 L ABG Hemoglobin 11.0 L ABG Oxyhemoglobin ABG Sodium ABG Chloride ABG Glucose Oxyhemoglobin 91.9 L Carboxyhemoglobin Sodium Potassium Chloride 112.2 H Carbon Dioxide BUN 38 H Creatinine 1.3 H Glucose 156 H POC Glucose 164 H Calcium 8.1 L Magnesium 3.10 H Ferritin AST Lactate Dehydrogenase Total Creatine Kinase Troponin T C-Reactive Protein Total Protein Albumin 2.8 L Triglycerides HDL Cholesterol Arterial Blood Glucose Arterial Blood Ionized Calcium Urine WBC (Auto) Vancomycin Trough Salicylates Acetaminophen Coronavirus (PCR) 07/20/21 07/20/21 07/20/21 04:44 05:00 05:40 WBC RBC 3.42 L Hgb 9.7 L Hct 29.3 L RDW 16.1 H Lymph % (Auto) Lymph # (Auto) Seg Neutrophils % Seg Neuts % (Manual) Lymphocytes % (Manual) Nucleated RBC % Seg Neutrophils # Seg Neutrophils # Man Lymphocytes # (Manual) Monocytes # (Manual) PT D-Dimer ABG pH POC ABG pCO2 POC ABG pO2 139.0 H ABG pO2 ABG O2 Saturation ABG Base Excess ABG Hemoglobin 10.1 L ABG Oxyhemoglobin ABG Sodium ABG Chloride 113.0 H ABG Glucose 155 H Oxyhemoglobin Carboxyhemoglobin 0.3 L Sodium Potassium Chloride Carbon Dioxide BUN Creatinine Glucose POC Glucose 164 H Calcium Magnesium Ferritin AST Lactate Dehydrogenase Total Creatine Kinase Troponin T C-Reactive Protein Total Protein Albumin Triglycerides HDL Cholesterol Arterial Blood Glucose 155 H Arterial Blood Ionized Calcium 4.4 L Urine WBC (Auto) Vancomycin Trough Salicylates Acetaminophen Coronavirus (PCR) 07/20/21 07/20/21 07/21/21 11:40 17:48 03:31 WBC RBC Hgb Hct RDW Lymph % (Auto) Lymph # (Auto) Seg Neutrophils % Seg Neuts % (Manual) Lymphocytes % (Manual) Nucleated RBC % Seg Neutrophils # Seg Neutrophils # Man Lymphocytes # (Manual) Monocytes # (Manual) PT D-Dimer ABG pH POC ABG pCO2 POC ABG pO2 ABG pO2 ABG O2 Saturation ABG Base Excess ABG Hemoglobin ABG Oxyhemoglobin ABG Sodium ABG Chloride ABG Glucose Oxyhemoglobin Carboxyhemoglobin Sodium Potassium Chloride Carbon Dioxide BUN Creatinine Glucose POC Glucose 137 H 143 H 157 H Calcium Magnesium Ferritin AST Lactate Dehydrogenase Total Creatine Kinase Troponin T C-Reactive Protein Total Protein Albumin Triglycerides HDL Cholesterol Arterial Blood Glucose Arterial Blood Ionized Calcium Urine WBC (Auto) Vancomycin Trough Salicylates Acetaminophen Coronavirus (PCR) 07/21/21 07/21/21 07/21/21 04:30 04:52 05:21 WBC RBC Hgb Hct RDW Lymph % (Auto) Lymph # (Auto) Seg Neutrophils % Seg Neuts % (Manual) Lymphocytes % (Manual) Nucleated RBC % Seg Neutrophils # Seg Neutrophils # Man Lymphocytes # (Manual) Monocytes # (Manual) PT D-Dimer ABG pH POC ABG pCO2 31.7 L POC ABG pO2 77.6 L ABG pO2 ABG O2 Saturation ABG Base Excess ABG Hemoglobin 10.2 L ABG Oxyhemoglobin ABG Sodium 148.3 H ABG Chloride 120.0 H ABG Glucose 168 H Oxyhemoglobin Carboxyhemoglobin 0.2 L Sodium 150 H Potassium Chloride 115.7 H Carbon Dioxide BUN 49 H Creatinine 1.4 H Glucose 185 H POC Glucose 170 H Calcium 8.3 L Magnesium Ferritin AST Lactate Dehydrogenase Total Creatine Kinase Troponin T C-Reactive Protein Total Protein Albumin 3.0 L Triglycerides HDL Cholesterol Arterial Blood Glucose 168 H Arterial Blood Ionized Calcium 4.4 L Urine WBC (Auto) Vancomycin Trough Salicylates Acetaminophen Coronavirus (PCR) 07/21/21 07/21/21 07/21/21 11:17 17:26 23:40 WBC RBC Hgb Hct RDW Lymph % (Auto) Lymph # (Auto) Seg Neutrophils % Seg Neuts % (Manual) Lymphocytes % (Manual) Nucleated RBC % Seg Neutrophils # Seg Neutrophils # Man Lymphocytes # (Manual) Monocytes # (Manual) PT D-Dimer ABG pH POC ABG pCO2 POC ABG pO2 ABG pO2 ABG O2 Saturation ABG Base Excess ABG Hemoglobin ABG Oxyhemoglobin ABG Sodium ABG Chloride ABG Glucose Oxyhemoglobin Carboxyhemoglobin Sodium Potassium Chloride Carbon Dioxide BUN Creatinine Glucose POC Glucose 176 H 184 H 161 H Calcium Magnesium Ferritin AST Lactate Dehydrogenase Total Creatine Kinase Troponin T C-Reactive Protein Total Protein Albumin Triglycerides HDL Cholesterol Arterial Blood Glucose Arterial Blood Ionized Calcium Urine WBC (Auto) Vancomycin Trough Salicylates Acetaminophen Coronavirus (PCR) 07/22/21 07/22/21 07/22/21 03:30 04:39 05:29 WBC RBC Hgb Hct RDW Lymph % (Auto) Lymph # (Auto) Seg Neutrophils % Seg Neuts % (Manual) Lymphocytes % (Manual) Nucleated RBC % Seg Neutrophils # Seg Neutrophils # Man Lymphocytes # (Manual) Monocytes # (Manual) PT D-Dimer ABG pH POC ABG pCO2 POC ABG pO2 67.4 L ABG pO2 ABG O2 Saturation ABG Base Excess ABG Hemoglobin 10.4 L ABG Oxyhemoglobin 91.8 L ABG Sodium 118.4 L ABG Chloride 114.0 H ABG Glucose 189 H Oxyhemoglobin Carboxyhemoglobin 0.2 L Sodium 146 H Potassium Chloride 112.8 H Carbon Dioxide 21 L BUN 46 H Creatinine Glucose 191 H POC Glucose 191 H Calcium Magnesium Ferritin AST Lactate Dehydrogenase Total Creatine Kinase Troponin T C-Reactive Protein Total Protein Albumin 2.9 L Triglycerides HDL Cholesterol Arterial Blood Glucose 189 H Arterial Blood Ionized Calcium 4.5 L Urine WBC (Auto) Vancomycin Trough Salicylates Acetaminophen Coronavirus (PCR) 07/22/21 07/22/21 07/22/21 12:17 17:54 23:34 WBC RBC Hgb Hct RDW Lymph % (Auto) Lymph # (Auto) Seg Neutrophils % Seg Neuts % (Manual) Lymphocytes % (Manual) Nucleated RBC % Seg Neutrophils # Seg Neutrophils # Man Lymphocytes # (Manual) Monocytes # (Manual) PT D-Dimer ABG pH POC ABG pCO2 POC ABG pO2 ABG pO2 ABG O2 Saturation ABG Base Excess ABG Hemoglobin ABG Oxyhemoglobin ABG Sodium ABG Chloride ABG Glucose Oxyhemoglobin Carboxyhemoglobin Sodium Potassium Chloride Carbon Dioxide BUN Creatinine Glucose POC Glucose 206 H 213 H 164 H Calcium Magnesium Ferritin AST Lactate Dehydrogenase Total Creatine Kinase Troponin T C-Reactive Protein Total Protein Albumin Triglycerides HDL Cholesterol Arterial Blood Glucose Arterial Blood Ionized Calcium Urine WBC (Auto) Vancomycin Trough Salicylates Acetaminophen Coronavirus (PCR) 07/23/21 07/23/21 07/23/21 03:30 05:21 09:02 WBC RBC Hgb Hct RDW Lymph % (Auto) Lymph # (Auto) Seg Neutrophils % Seg Neuts % (Manual) Lymphocytes % (Manual) Nucleated RBC % Seg Neutrophils # Seg Neutrophils # Man Lymphocytes # (Manual) Monocytes # (Manual) PT D-Dimer ABG pH POC ABG pCO2 POC ABG pO2 70.9 L ABG pO2 ABG O2 Saturation ABG Base Excess ABG Hemoglobin 10.9 L ABG Oxyhemoglobin 92.9 L ABG Sodium 130.2 L ABG Chloride 109.0 H ABG Glucose 177 H Oxyhemoglobin Carboxyhemoglobin 0.1 L Sodium Potassium 5.1 H Chloride Carbon Dioxide BUN 32 H Creatinine Glucose 200 H POC Glucose 191 H Calcium Magnesium Ferritin AST Lactate Dehydrogenase Total Creatine Kinase Troponin T C-Reactive Protein Total Protein Albumin Triglycerides HDL Cholesterol Arterial Blood Glucose 177 H Arterial Blood Ionized Calcium 4.3 L Urine WBC (Auto) Vancomycin Trough Salicylates Acetaminophen Coronavirus (PCR) 07/23/21 07/23/21 07/23/21 09:02 11:34 17:52 WBC 13.8 H RBC Hgb Hct RDW 15.7 H Lymph % (Auto) Lymph # (Auto) Seg Neutrophils % Seg Neuts % (Manual) Lymphocytes % (Manual) Nucleated RBC % Seg Neutrophils # Seg Neutrophils # Man Lymphocytes # (Manual) Monocytes # (Manual) PT D-Dimer ABG pH POC ABG pCO2 POC ABG pO2 ABG pO2 ABG O2 Saturation ABG Base Excess ABG Hemoglobin ABG Oxyhemoglobin ABG Sodium ABG Chloride ABG Glucose Oxyhemoglobin Carboxyhemoglobin Sodium Potassium Chloride Carbon Dioxide BUN Creatinine Glucose POC Glucose 208 H 158 H Calcium Magnesium Ferritin AST Lactate Dehydrogenase Total Creatine Kinase Troponin T C-Reactive Protein Total Protein Albumin Triglycerides HDL Cholesterol Arterial Blood Glucose Arterial Blood Ionized Calcium Urine WBC (Auto) Vancomycin Trough Salicylates Acetaminophen Coronavirus (PCR) 07/23/21 07/24/21 07/24/21 23:28 03:06 05:01 WBC RBC Hgb Hct RDW Lymph % (Auto) Lymph # (Auto) Seg Neutrophils % Seg Neuts % (Manual) Lymphocytes % (Manual) Nucleated RBC % Seg Neutrophils # Seg Neutrophils # Man Lymphocytes # (Manual) Monocytes # (Manual) PT D-Dimer ABG pH POC ABG pCO2 POC ABG pO2 51.1 L ABG pO2 ABG O2 Saturation ABG Base Excess ABG Hemoglobin ABG Oxyhemoglobin 85.0 L ABG Sodium 135.5 L ABG Chloride ABG Glucose 131 H Oxyhemoglobin Carboxyhemoglobin 0.4 L Sodium Potassium Chloride Carbon Dioxide BUN 29 H Creatinine Glucose 132 H POC Glucose 142 H Calcium 7.8 L Magnesium Ferritin AST Lactate Dehydrogenase Total Creatine Kinase Troponin T C-Reactive Protein Total Protein Albumin Triglycerides HDL Cholesterol Arterial Blood Glucose 131 H Arterial Blood Ionized Calcium 4.5 L Urine WBC (Auto) Vancomycin Trough Salicylates Acetaminophen Coronavirus (PCR) 07/24/21 07/24/21 07/24/21 05:06 11:38 17:26 WBC RBC Hgb Hct RDW Lymph % (Auto) Lymph # (Auto) Seg Neutrophils % Seg Neuts % (Manual) Lymphocytes % (Manual) Nucleated RBC % Seg Neutrophils # Seg Neutrophils # Man Lymphocytes # (Manual) Monocytes # (Manual) PT D-Dimer ABG pH POC ABG pCO2 POC ABG pO2 ABG pO2 ABG O2 Saturation ABG Base Excess ABG Hemoglobin ABG Oxyhemoglobin ABG Sodium ABG Chloride ABG Glucose Oxyhemoglobin Carboxyhemoglobin Sodium Potassium Chloride Carbon Dioxide BUN Creatinine Glucose POC Glucose 125 H 215 H 173 H Calcium Magnesium Ferritin AST Lactate Dehydrogenase Total Creatine Kinase Troponin T C-Reactive Protein Total Protein Albumin Triglycerides HDL Cholesterol Arterial Blood Glucose Arterial Blood Ionized Calcium Urine WBC (Auto) Vancomycin Trough Salicylates Acetaminophen Coronavirus (PCR) 07/24/21 07/25/21 07/25/21 23:23 03:33 04:28 WBC RBC Hgb Hct RDW Lymph % (Auto) Lymph # (Auto) Seg Neutrophils % Seg Neuts % (Manual) Lymphocytes % (Manual) Nucleated RBC % Seg Neutrophils # Seg Neutrophils # Man Lymphocytes # (Manual) Monocytes # (Manual) PT D-Dimer ABG pH POC ABG pCO2 POC ABG pO2 ABG pO2 ABG O2 Saturation ABG Base Excess ABG Hemoglobin ABG Oxyhemoglobin ABG Sodium 135.6 L ABG Chloride ABG Glucose 174 H Oxyhemoglobin Carboxyhemoglobin 0.1 L Sodium Potassium 5.1 H Chloride 107.7 H Carbon Dioxide BUN 29 H Creatinine Glucose 164 H POC Glucose 133 H Calcium 7.3 L Magnesium Ferritin AST Lactate Dehydrogenase Total Creatine Kinase Troponin T C-Reactive Protein Total Protein Albumin Triglycerides HDL Cholesterol Arterial Blood Glucose 174 H Arterial Blood Ionized Calcium Urine WBC (Auto) Vancomycin Trough Salicylates Acetaminophen Coronavirus (PCR) 07/25/21 07/25/21 07/25/21 04:28 04:28 05:17 WBC 14.9 H RBC Hgb Hct RDW 15.6 H Lymph % (Auto) Lymph # (Auto) Seg Neutrophils % Seg Neuts % (Manual) 92.0 H Lymphocytes % (Manual) 2.0 L Nucleated RBC % Seg Neutrophils # Seg Neutrophils # Man 13.7 H Lymphocytes # (Manual) 0.3 L Monocytes # (Manual) PT D-Dimer ABG pH POC ABG pCO2 POC ABG pO2 ABG pO2 ABG O2 Saturation ABG Base Excess ABG Hemoglobin ABG Oxyhemoglobin ABG Sodium ABG Chloride ABG Glucose Oxyhemoglobin Carboxyhemoglobin Sodium Potassium Chloride Carbon Dioxide BUN Creatinine Glucose POC Glucose 173 H Calcium Magnesium Ferritin AST Lactate Dehydrogenase Total Creatine Kinase Troponin T C-Reactive Protein Total Protein Albumin Triglycerides HDL Cholesterol Arterial Blood Glucose Arterial Blood Ionized Calcium Urine WBC (Auto) Vancomycin Trough 22.9 H Salicylates Acetaminophen Coronavirus (PCR) 07/25/21 07/25/21 07/25/21 11:29 17:00 23:46 WBC RBC Hgb Hct RDW Lymph % (Auto) Lymph # (Auto) Seg Neutrophils % Seg Neuts % (Manual) Lymphocytes % (Manual) Nucleated RBC % Seg Neutrophils # Seg Neutrophils # Man Lymphocytes # (Manual) Monocytes # (Manual) PT D-Dimer ABG pH POC ABG pCO2 POC ABG pO2 ABG pO2 ABG O2 Saturation ABG Base Excess ABG Hemoglobin ABG Oxyhemoglobin ABG Sodium ABG Chloride ABG Glucose Oxyhemoglobin Carboxyhemoglobin Sodium Potassium Chloride Carbon Dioxide BUN Creatinine Glucose POC Glucose 191 H 184 H 192 H Calcium Magnesium Ferritin AST Lactate Dehydrogenase Total Creatine Kinase Troponin T C-Reactive Protein Total Protein Albumin Triglycerides HDL Cholesterol Arterial Blood Glucose Arterial Blood Ionized Calcium Urine WBC (Auto) Vancomycin Trough Salicylates Acetaminophen Coronavirus (PCR) 07/26/21 07/26/21 07/26/21 03:17 05:33 06:07 WBC 18.0 H RBC Hgb Hct RDW 15.6 H Lymph % (Auto) Lymph # (Auto) Seg Neutrophils % Seg Neuts % (Manual) 87.0 H Lymphocytes % (Manual) 5.0 L Nucleated RBC % Seg Neutrophils # Seg Neutrophils # Man 15.7 H Lymphocytes # (Manual) 0.9 L Monocytes # (Manual) 1.1 H PT D-Dimer ABG pH POC ABG pCO2 POC ABG pO2 73.7 L ABG pO2 ABG O2 Saturation ABG Base Excess ABG Hemoglobin 11.8 L ABG Oxyhemoglobin 93.6 L ABG Sodium ABG Chloride ABG Glucose 183 H Oxyhemoglobin Carboxyhemoglobin 0.2 L Sodium Potassium Chloride Carbon Dioxide BUN Creatinine Glucose POC Glucose 172 H Calcium Magnesium Ferritin AST Lactate Dehydrogenase Total Creatine Kinase Troponin T C-Reactive Protein Total Protein Albumin Triglycerides HDL Cholesterol Arterial Blood Glucose 183 H Arterial Blood Ionized Calcium Urine WBC (Auto) Vancomycin Trough Salicylates Acetaminophen Coronavirus (PCR) 07/26/21 07/26/21 07/26/21 06:07 11:46 13:53 WBC RBC Hgb Hct RDW Lymph % (Auto) Lymph # (Auto) Seg Neutrophils % Seg Neuts % (Manual) Lymphocytes % (Manual) Nucleated RBC % Seg Neutrophils # Seg Neutrophils # Man Lymphocytes # (Manual) Monocytes # (Manual) PT D-Dimer 6992.45 H ABG pH POC ABG pCO2 POC ABG pO2 ABG pO2 ABG O2 Saturation ABG Base Excess ABG Hemoglobin ABG Oxyhemoglobin ABG Sodium ABG Chloride ABG Glucose Oxyhemoglobin Carboxyhemoglobin Sodium Potassium 5.4 H Chloride Carbon Dioxide BUN 33 H Creatinine Glucose 155 H POC Glucose 142 H Calcium 8.3 L Magnesium Ferritin AST Lactate Dehydrogenase Total Creatine Kinase Troponin T C-Reactive Protein Total Protein Albumin Triglycerides HDL Cholesterol Arterial Blood Glucose Arterial Blood Ionized Calcium Urine WBC (Auto) Vancomycin Trough Salicylates Acetaminophen Coronavirus (PCR) 07/26/21 07/26/21 07/26/21 13:53 14:16 17:29 WBC RBC Hgb Hct RDW Lymph % (Auto) Lymph # (Auto) Seg Neutrophils % Seg Neuts % (Manual) Lymphocytes % (Manual) Nucleated RBC % Seg Neutrophils # Seg Neutrophils # Man Lymphocytes # (Manual) Monocytes # (Manual) PT D-Dimer ABG pH POC ABG pCO2 POC ABG pO2 ABG pO2 ABG O2 Saturation ABG Base Excess ABG Hemoglobin ABG Oxyhemoglobin ABG Sodium ABG Chloride ABG Glucose Oxyhemoglobin Carboxyhemoglobin Sodium Potassium Chloride Carbon Dioxide BUN Creatinine Glucose 200 H POC Glucose 185 H Calcium Magnesium Ferritin 348.4 H AST Lactate Dehydrogenase 515 H Total Creatine Kinase Troponin T C-Reactive Protein Total Protein Albumin Triglycerides HDL Cholesterol Arterial Blood Glucose Arterial Blood Ionized Calcium Urine WBC (Auto) Vancomycin Trough Salicylates Acetaminophen Coronavirus (PCR) 07/26/21 07/27/21 07/27/21 23:30 04:00 04:48 WBC 16.5 H RBC Hgb Hct RDW Lymph % (Auto) Lymph # (Auto) Seg Neutrophils % Seg Neuts % (Manual) 92.0 H Lymphocytes % (Manual) 3.0 L Nucleated RBC % 1.0 H Seg Neutrophils # Seg Neutrophils # Man 15.2 H Lymphocytes # (Manual) 0.5 L Monocytes # (Manual) PT D-Dimer ABG pH 7.481 H POC ABG pCO2 POC ABG pO2 70.4 L ABG pO2 ABG O2 Saturation ABG Base Excess ABG Hemoglobin 11.6 L ABG Oxyhemoglobin ABG Sodium 131.9 L ABG Chloride ABG Glucose 207 H Oxyhemoglobin Carboxyhemoglobin Sodium Potassium Chloride Carbon Dioxide BUN Creatinine Glucose POC Glucose 186 H Calcium Magnesium Ferritin AST Lactate Dehydrogenase Total Creatine Kinase Troponin T C-Reactive Protein Total Protein Albumin Triglycerides HDL Cholesterol Arterial Blood Glucose 207 H Arterial Blood Ionized Calcium Urine WBC (Auto) Vancomycin Trough Salicylates Acetaminophen Coronavirus (PCR) 07/27/21 07/27/21 07/27/21 04:48 05:04 11:36 WBC RBC Hgb Hct RDW Lymph % (Auto) Lymph # (Auto) Seg Neutrophils % Seg Neuts % (Manual) Lymphocytes % (Manual) Nucleated RBC % Seg Neutrophils # Seg Neutrophils # Man Lymphocytes # (Manual) Monocytes # (Manual) PT D-Dimer ABG pH POC ABG pCO2 POC ABG pO2 ABG pO2 ABG O2 Saturation ABG Base Excess ABG Hemoglobin ABG Oxyhemoglobin ABG Sodium ABG Chloride ABG Glucose Oxyhemoglobin Carboxyhemoglobin Sodium Potassium Chloride Carbon Dioxide BUN 35 H Creatinine Glucose 216 H POC Glucose 201 H 142 H Calcium Magnesium Ferritin AST Lactate Dehydrogenase Total Creatine Kinase Troponin T C-Reactive Protein Total Protein Albumin Triglycerides HDL Cholesterol Arterial Blood Glucose Arterial Blood Ionized Calcium Urine WBC (Auto) Vancomycin Trough Salicylates Acetaminophen Coronavirus (PCR) 07/27/21 07/27/21 07/28/21 18:14 22:03 04:00 WBC RBC Hgb Hct RDW Lymph % (Auto) Lymph # (Auto) Seg Neutrophils % Seg Neuts % (Manual) Lymphocytes % (Manual) Nucleated RBC % Seg Neutrophils # Seg Neutrophils # Man Lymphocytes # (Manual) Monocytes # (Manual) PT D-Dimer ABG pH 7.491 H POC ABG pCO2 POC ABG pO2 109.2 H ABG pO2 ABG O2 Saturation ABG Base Excess ABG Hemoglobin ABG Oxyhemoglobin ABG Sodium 133.9 L ABG Chloride ABG Glucose 163 H Oxyhemoglobin Carboxyhemoglobin Sodium Potassium Chloride Carbon Dioxide BUN Creatinine Glucose POC Glucose 166 H 149 H Calcium Magnesium Ferritin AST Lactate Dehydrogenase Total Creatine Kinase Troponin T C-Reactive Protein Total Protein Albumin Triglycerides HDL Cholesterol Arterial Blood Glucose 163 H Arterial Blood Ionized Calcium Urine WBC (Auto) Vancomycin Trough Salicylates Acetaminophen Coronavirus (PCR) 07/28/21 07/28/21 07/28/21 04:10 04:10 04:10 WBC RBC Hgb Hct RDW Lymph % (Auto) Lymph # (Auto) Seg Neutrophils % Seg Neuts % (Manual) Lymphocytes % (Manual) Nucleated RBC % Seg Neutrophils # Seg Neutrophils # Man Lymphocytes # (Manual) Monocytes # (Manual) PT D-Dimer 5318.85 H ABG pH POC ABG pCO2 POC ABG pO2 ABG pO2 ABG O2 Saturation ABG Base Excess ABG Hemoglobin ABG Oxyhemoglobin ABG Sodium ABG Chloride ABG Glucose Oxyhemoglobin Carboxyhemoglobin Sodium Potassium Chloride Carbon Dioxide 31 H BUN 35 H Creatinine Glucose 187 H POC Glucose Calcium Magnesium Ferritin 324.6 H AST Lactate Dehydrogenase 414 H Total Creatine Kinase Troponin T C-Reactive Protein Total Protein Albumin Triglycerides HDL Cholesterol Arterial Blood Glucose Arterial Blood Ionized Calcium Urine WBC (Auto) Vancomycin Trough Salicylates Acetaminophen Coronavirus (PCR) 07/28/21 07/28/21 07/28/21 04:10 05:25 12:10 WBC 13.7 H RBC Hgb Hct RDW Lymph % (Auto) Lymph # (Auto) Seg Neutrophils % Seg Neuts % (Manual) Lymphocytes % (Manual) Nucleated RBC % Seg Neutrophils # Seg Neutrophils # Man Lymphocytes # (Manual) Monocytes # (Manual) PT D-Dimer ABG pH POC ABG pCO2 POC ABG pO2 ABG pO2 ABG O2 Saturation ABG Base Excess ABG Hemoglobin ABG Oxyhemoglobin ABG Sodium ABG Chloride ABG Glucose Oxyhemoglobin Carboxyhemoglobin Sodium Potassium Chloride Carbon Dioxide BUN Creatinine Glucose POC Glucose 152 H 162 H Calcium Magnesium Ferritin AST Lactate Dehydrogenase Total Creatine Kinase Troponin T C-Reactive Protein Total Protein Albumin Triglycerides HDL Cholesterol Arterial Blood Glucose Arterial Blood Ionized Calcium Urine WBC (Auto) Vancomycin Trough Salicylates Acetaminophen Coronavirus (PCR) 07/28/21 07/28/21 07/29/21 17:44 21:58 04:00 WBC RBC Hgb Hct RDW Lymph % (Auto) Lymph # (Auto) Seg Neutrophils % Seg Neuts % (Manual) Lymphocytes % (Manual) Nucleated RBC % Seg Neutrophils # Seg Neutrophils # Man Lymphocytes # (Manual) Monocytes # (Manual) PT D-Dimer ABG pH 7.510 H POC ABG pCO2 POC ABG pO2 113.0 H ABG pO2 ABG O2 Saturation ABG Base Excess ABG Hemoglobin 11.1 L ABG Oxyhemoglobin ABG Sodium 135.0 L ABG Chloride ABG Glucose 162 H Oxyhemoglobin Carboxyhemoglobin 0.3 L Sodium Potassium Chloride Carbon Dioxide BUN Creatinine Glucose POC Glucose 152 H 139 H Calcium Magnesium Ferritin AST Lactate Dehydrogenase Total Creatine Kinase Troponin T C-Reactive Protein Total Protein Albumin Triglycerides HDL Cholesterol Arterial Blood Glucose 162 H Arterial Blood Ionized Calcium 4.4 L Urine WBC (Auto) Vancomycin Trough Salicylates Acetaminophen Coronavirus (PCR) 07/29/21 07/29/21 07/29/21 04:35 04:35 05:47 WBC 12.0 H RBC Hgb Hct RDW Lymph % (Auto) Lymph # (Auto) Seg Neutrophils % Seg Neuts % (Manual) Lymphocytes % (Manual) Nucleated RBC % Seg Neutrophils # Seg Neutrophils # Man Lymphocytes # (Manual) Monocytes # (Manual) PT D-Dimer ABG pH POC ABG pCO2 POC ABG pO2 ABG pO2 ABG O2 Saturation ABG Base Excess ABG Hemoglobin ABG Oxyhemoglobin ABG Sodium ABG Chloride ABG Glucose Oxyhemoglobin Carboxyhemoglobin Sodium Potassium Chloride Carbon Dioxide BUN 34 H Creatinine Glucose 170 H POC Glucose 153 H Calcium Magnesium Ferritin AST Lactate Dehydrogenase Total Creatine Kinase Troponin T C-Reactive Protein Total Protein Albumin Triglycerides HDL Cholesterol Arterial Blood Glucose Arterial Blood Ionized Calcium Urine WBC (Auto) Vancomycin Trough Salicylates Acetaminophen Coronavirus (PCR) 07/29/21 07/29/21 07/29/21 11:25 16:29 23:39 WBC RBC Hgb Hct RDW Lymph % (Auto) Lymph # (Auto) Seg Neutrophils % Seg Neuts % (Manual) Lymphocytes % (Manual) Nucleated RBC % Seg Neutrophils # Seg Neutrophils # Man Lymphocytes # (Manual) Monocytes # (Manual) PT D-Dimer ABG pH POC ABG pCO2 POC ABG pO2 ABG pO2 ABG O2 Saturation ABG Base Excess ABG Hemoglobin ABG Oxyhemoglobin ABG Sodium ABG Chloride ABG Glucose Oxyhemoglobin Carboxyhemoglobin Sodium Potassium Chloride Carbon Dioxide BUN Creatinine Glucose POC Glucose 142 H 167 H 141 H Calcium Magnesium Ferritin AST Lactate Dehydrogenase Total Creatine Kinase Troponin T C-Reactive Protein Total Protein Albumin Triglycerides HDL Cholesterol Arterial Blood Glucose Arterial Blood Ionized Calcium Urine WBC (Auto) Vancomycin Trough Salicylates Acetaminophen Coronavirus (PCR) 07/30/21 07/30/21 07/30/21 05:00 05:00 05:00 WBC RBC Hgb Hct RDW Lymph % (Auto) Lymph # (Auto) Seg Neutrophils % Seg Neuts % (Manual) Lymphocytes % (Manual) Nucleated RBC % Seg Neutrophils # Seg Neutrophils # Man Lymphocytes # (Manual) Monocytes # (Manual) PT D-Dimer 1818.72 H ABG pH POC ABG pCO2 POC ABG pO2 ABG pO2 ABG O2 Saturation ABG Base Excess ABG Hemoglobin ABG Oxyhemoglobin ABG Sodium ABG Chloride ABG Glucose Oxyhemoglobin Carboxyhemoglobin Sodium Potassium Chloride Carbon Dioxide BUN 34 H Creatinine Glucose 184 H POC Glucose Calcium Magnesium Ferritin 242.1 H AST Lactate Dehydrogenase 304 H Total Creatine Kinase Troponin T C-Reactive Protein Total Protein Albumin Triglycerides HDL Cholesterol Arterial Blood Glucose Arterial Blood Ionized Calcium Urine WBC (Auto) Vancomycin Trough Salicylates Acetaminophen Coronavirus (PCR) 07/30/21 07/30/21 07/30/21 05:00 06:08 11:41 WBC RBC 3.45 L Hgb 10.0 L Hct 29.9 L RDW Lymph % (Auto) Lymph # (Auto) Seg Neutrophils % Seg Neuts % (Manual) Lymphocytes % (Manual) Nucleated RBC % Seg Neutrophils # Seg Neutrophils # Man Lymphocytes # (Manual) Monocytes # (Manual) PT D-Dimer ABG pH POC ABG pCO2 POC ABG pO2 ABG pO2 ABG O2 Saturation ABG Base Excess ABG Hemoglobin ABG Oxyhemoglobin ABG Sodium ABG Chloride ABG Glucose Oxyhemoglobin Carboxyhemoglobin Sodium Potassium Chloride Carbon Dioxide BUN Creatinine Glucose POC Glucose 171 H 182 H Calcium Magnesium Ferritin AST Lactate Dehydrogenase Total Creatine Kinase Troponin T C-Reactive Protein Total Protein Albumin Triglycerides HDL Cholesterol Arterial Blood Glucose Arterial Blood Ionized Calcium Urine WBC (Auto) Vancomycin Trough Salicylates Acetaminophen Coronavirus (PCR) 07/30/21 07/30/21 07/30/21 17:28 22:22 23:43 WBC RBC Hgb Hct RDW Lymph % (Auto) Lymph # (Auto) Seg Neutrophils % Seg Neuts % (Manual) Lymphocytes % (Manual) Nucleated RBC % Seg Neutrophils # Seg Neutrophils # Man Lymphocytes # (Manual) Monocytes # (Manual) PT D-Dimer ABG pH POC ABG pCO2 POC ABG pO2 ABG pO2 ABG O2 Saturation ABG Base Excess ABG Hemoglobin ABG Oxyhemoglobin ABG Sodium ABG Chloride ABG Glucose Oxyhemoglobin Carboxyhemoglobin Sodium Potassium Chloride Carbon Dioxide BUN Creatinine Glucose POC Glucose 176 H 150 H 161 H Calcium Magnesium Ferritin AST Lactate Dehydrogenase Total Creatine Kinase Troponin T C-Reactive Protein Total Protein Albumin Triglycerides HDL Cholesterol Arterial Blood Glucose Arterial Blood Ionized Calcium Urine WBC (Auto) Vancomycin Trough Salicylates Acetaminophen Coronavirus (PCR) 07/31/21 07/31/21 07/31/21 04:00 05:25 05:50 WBC 11.5 H RBC Hgb Hct RDW Lymph % (Auto) Lymph # (Auto) Seg Neutrophils % Seg Neuts % (Manual) Lymphocytes % (Manual) Nucleated RBC % Seg Neutrophils # Seg Neutrophils # Man Lymphocytes # (Manual) Monocytes # (Manual) PT D-Dimer ABG pH POC ABG pCO2 POC ABG pO2 ABG pO2 ABG O2 Saturation ABG Base Excess ABG Hemoglobin 11.5 L ABG Oxyhemoglobin ABG Sodium ABG Chloride ABG Glucose 143 H Oxyhemoglobin Carboxyhemoglobin Sodium Potassium Chloride Carbon Dioxide BUN Creatinine Glucose POC Glucose 150 H Calcium Magnesium Ferritin AST Lactate Dehydrogenase Total Creatine Kinase Troponin T C-Reactive Protein Total Protein Albumin Triglycerides HDL Cholesterol Arterial Blood Glucose 143 H Arterial Blood Ionized Calcium Urine WBC (Auto) Vancomycin Trough Salicylates Acetaminophen Coronavirus (PCR) 07/31/21 05:50 WBC RBC Hgb Hct RDW Lymph % (Auto) Lymph # (Auto) Seg Neutrophils % Seg Neuts % (Manual) Lymphocytes % (Manual) Nucleated RBC % Seg Neutrophils # Seg Neutrophils # Man Lymphocytes # (Manual) Monocytes # (Manual) PT D-Dimer ABG pH POC ABG pCO2 POC ABG pO2 ABG pO2 ABG O2 Saturation ABG Base Excess ABG Hemoglobin ABG Oxyhemoglobin ABG Sodium ABG Chloride ABG Glucose Oxyhemoglobin Carboxyhemoglobin Sodium Potassium Chloride Carbon Dioxide BUN 32 H Creatinine Glucose 158 H POC Glucose Calcium Magnesium Ferritin AST Lactate Dehydrogenase Total Creatine Kinase Troponin T C-Reactive Protein Total Protein Albumin Triglycerides HDL Cholesterol Arterial Blood Glucose Arterial Blood Ionized Calcium Urine WBC (Auto) Vancomycin Trough Salicylates Acetaminophen Coronavirus (PCR)
--- NOTE | 2021-07-31 14:49 | Progress Note ---
<KAMARIRYANVeronica - Last Filed: 07/31/21 14:44> Assessment and Plan Assessment and plan: This is a 55-year-old female with obesity, diabetes, anxiety, hypertension admitted with severe Covid 19 pneumonia, multiple subsegmental pulmonary embolism, acute kidney injury and sepsis Neuro: Acute metabolic encephalopathy, h/o anxiety -Sedated with fentanyl and Versed -Goal RASS 0 to -1 -Daily SAT trial when appropriate -Avoid delirium -Bilateral wrist restraints for safety CV: SRSB, mobile echogenic density on the tricuspid valve apparatus -Cardiology consulted, appreciate recommendations -Cardiology concluded SB likely aggravated by remdesivir -Normal TSH -Recommend repeat echo in 3 months to evaluate mobile port density -Per cardiology: Given clinical picture density most likely represents a thrombus in the second vegetation -Started on hydral->titrate as needed -hypotension with sedation, hypertension without sedation Respiratory: ARDS, acute hypoxic respiratory failure, severe COVID-19 bronchopneumonia -Intubated 07/18 with 7.50 ETT at 21 the lips -CCM consulted, appreciate recommendations -VAP bundle -A.m. vent settings: AC rate 26, tidal volume 420, PEEP 8, FiO2 40 -See RT notes for titration -Daily CXR and ABG -Daily SAT/SBT trials when appropriate -AM CXR and ABG reviewed GI: Moderate protein calorie malnutrition, obesity -Nutrition consult -On tube feedings -BR with Senokot -PPI -24-hour fluid balance +100 -Free water flush 200 mL every 4 : Acute kidney injury secondary to sepsis/ATN (resolved), hyperkalemia (resolved) -Strict intake and output -Daily weights -Monitor and intervene with electrolytes as needed -Trend BMP Heme: Multiple subsegmental pulmonary embolism, LLE DVT -On Lovenox -Trend CBC -Monitor temperature curve -SCDs to bilateral lower extremities while in bed -Evidenced on CTA chest-> see results -BLE US shows LLE DVT ID: COVID-19 pneumonia, sepsis/septic shock -Infectious disease consulted, appreciate recommendations -COVID-19 PCR positive -Antibiotics with cefepime -S/p remdesivir and Actemra -Solu-Medrol 60 mg every 8->weaning per CCM -Contact/droplet isolation -Prone as tolerated and needed -Pulmonary hygiene -Trend COVID-19 inflammatory markers for risk stratification Endo: Stress hyperglycemia, obesity, h/o DM type II -Avoid hypoglycemia -SSI -Lantus -Accu-Cheks every 6 The high probability of a clinically significant, sudden or life threatening deterioration of the [multi] system(s) required my full and direct attention, intervention and personal management. The aggregate critical care time was [60] minutes. This time is in addition to time spent performing reported procedures but includes the following: [x] Data Review and interpretation [x] Patient assessment and monitoring of vital signs [x] Documentation [x] Medication orders and management Disposition Plan: icu Total Time Spent with Patient (Minutes): 60 History Interval history: This is a 55-year-old female with obesity, diabetes, anxiety, hypertension who presented to the emergency department on 07/18 via EMS for low oxygen saturations on CPAP in the high 60s to 70s. In the emergency department patient had persistently low oxygen levels and was intubated electively. Work-up in the emergency department revealed bilateral pneumonia, multiple segmental bilateral pulmonary emboli, extensive bilateral Covid bronchopneumonia. Patient was admitted to the hospitalist service with consults to [facility] for acute hypoxic respiratory failure, acute encephalopathy, multiple pulmonary embolism ION and as a COVID-19 PUI. 07/18 admit to hospital via ER; being held in ER for ICU bed 07/19 remains in ER intubated and mechanically ventilated; covid pos 07-20 came to ICU overnight from ER; no bradycardic 07/21/2021. Patient remains orally intubated on mechanical ventilation AC mode rate of 26, tidal volume 420, FiO2 90% and PEEP of 16. Continue empiric antibiotics of ceftriaxone and azithromycin for 5 days total. Complete 5 days of remdesivir and continue IV steroids. Patient received Actemra 07/20/2021. Continue therapeutic anticoagulation with Lovenox 100 mg subcu twice daily. Continue sedation of fentanyl and Versed as tolerated. Continue pressors to maintain MAP > 65. Follow-up echocardiogram. 07/22/2021. Patient on mechanical ventilation AC mode rate of 26, FiO2 70% and PEEP of 16. Continue to wean FiO2 as tolerated. Continue antibiotics per ID recommendations. Patient currently with ceftriaxone and azithromycin. Complete 5 days of remdesivir. Continue IV steroids. Patient received Actemra on 07/20. Continue prone positioning as able. Continue to trend inflammatory markers. 07/23/2021. Patient remains on mechanical ventilation AC mode rate of 26, tidal volume 420, FiO2 75% and PEEP of 16. Continue to wean FiO2 as tolerated. Continue antibiotics per ID recommendations. Patient currently with ceftriaxone and azithromycin. Complete 5 days of remdesivir. Continue IV steroids. Patient received Actemra on 07/20/2021. Continue prone positioning as able. Con tinue to trend inflammatory markers. ID and pulmonary following. 07/24/2021. Patient remains on mechanical ventilation AC mode rate of 26, tidal volume 420, FiO2 70% and PEEP of 16. Patient with possible tricuspid valve vegetation seen on echocardiogram. Consult cardiology for further evaluation. Continue IV antibiotics per ID recommendations. Prone position is possible. Continue to trend inflammatory markers. 07/25/2021. Patient remains on mechanical ventilation AC mode rate of 26, tidal volume 420, FiO2 70% and PEEP of 14. Patient with possible tricuspid valve vegetation seen on echocardiogram. Consult cardiology for further evaluation. Continue IV antibiotics per ID recommendations. Prone position is possible. Continue to trend inflammatory markers. 07/26: MICHAEL, hyperkalemia 07/27: OETT advanced. Remains sedated but able to follow commands. MICHAEL. 07/28: O ETT retracted. MICHAEL overnight. Patient remains sinus bradycardia and hyp ertensive at times. Remains on Versed and fentanyl. 07/29: Night patient became hypotensive and required a 500 cc bolus. Hydralazine dose change. 07/30: Vent changes made per [facility], patient remains on fentanyl and Versed. Increase in Lantus 07/31: [facility] made vent changes, patient is very sensitive to decreases in sedation Hospitalist Physical - Constitutional Vitals: Temp Pulse Resp BP Pulse Ox 99 F 115 H 18 172/66 99 07/31/21 12:00 07/31/21 12:00 07/31/21 06:31 07/31/21 12:00 07/31/21 12:00 General appearance: Present: no acute distress, other (sedated) - EENT Eyes: Present: PERRL ENT: dentition normal - Neck Neck: Present: normal ROM - Respiratory Respiratory effort: normal Respiratory: bilateral: diminished - Cardiovascular Rhythm: regular Heart Sounds: Present: S1 & S2. Absent: systolic murmur, diastolic murmur - Extremities Extremities: no ischemia, pulses intact, pulses symmetrical, normal temperature, normal color Extremity abnormal: edema Peripheral Pulses: within normal limits - Abdominal General gastrointestinal: soft, non-tender, non-distended, normal bowel sounds - Integumentary Integumentary: Present: warm, dry - Psychiatric Psychiatric: agitated, other (sedated) - Neurologic Neurologic: other (sedated) - Allied Health Allied health notes reviewed: nursing, RT, social work HEART Score - HEART Score Troponin: Troponin T 0.106 ng/mL (0.00-0.029) H* 07/18/21 16:00 Results - Labs CBC & Chem 7: 07/31/21 05:50 07/31/21 05:50 Labs: Laboratory Last Values WBC 11.5 K/mm3 (4.5-11.0) H 07/31/21 05:50 RBC 3.85 M/mm3 (3.65-5.03) 07/31/21 05:50 Hgb 11.0 gm/dl (10.1-14.3) 07/31/21 05:50 Hct 33.9 % (30.3-42.9) 07/31/21 05:50 MCV 88 fl (79-97) 07/31/21 05:50 MCH 29 pg (28-32) 07/31/21 05:50 MCHC 33 % (30-34) 07/31/21 05:50 RDW 14.9 % (13.2-15.2) 07/31/21 05:50 Plt Count 234 K/mm3 (140-440) 07/31/21 05:50 Lymph % (Auto) 10.7 % (13.4-35.0) L 07/19/21 04:59 [place] % (Auto) 4.8 % (0.0-7.3) 07/19/21 04:59 Eos % (Auto) 0.1 % (0.0-4.3) 07/19/21 04:59 Baso % (Auto) 0.1 % (0.0-1.8) 07/19/21 04:59 Lymph # (Auto) 1.1 K/mm3 (1.2-5.4) L 07/19/21 04:59 [place] # (Auto) 0.5 K/mm3 (0.0-0.8) 07/19/21 04:59 Eos # (Auto) 0.0 K/mm3 (0.0-0.4) 07/19/21 04:59 Baso # (Auto) 0.0 K/mm3 (0.0-0.1) 07/19/21 04:59 Add Manual Diff Complete 07/27/21 04:48 Total Counted 100 07/27/21 04:48 Seg Neutrophils % Breaker Off 07/27/21 04:48 Seg Neuts % (Manual) 92.0 % (40.0-70.0) H 07/27/21 04:48 Band Neutrophils % 1.0 % 07/26/21 06:07 Lymphocytes % (Manual) 3.0 % (13.4-35.0) L 07/27/21 04:48 Monocytes % (Manual) 5.0 % (0.0-7.3) 07/27/21 04:48 Metamyelocytes % 1.0 % 07/26/21 06:07 Myelocytes % 1.0 % 07/25/21 04:28 Nucleated RBC % 1.0 % (0.0-0.9) H 07/27/21 04:48 Seg Neutrophils # 8.7 K/mm3 (1.8-7.7) H 07/19/21 04:59 Seg Neutrophils # Man 15.2 K/mm3 (1.8-7.7) H 07/27/21 04:48 Band Neutrophils # 0.0 K/mm3 07/27/21 04:48 Lymphocytes # (Manual) 0.5 K/mm3 (1.2-5.4) L 07/27/21 04:48 Abs React Lymphs (Man) 0.0 K/mm3 07/27/21 04:48 Monocytes # (Manual) 0.8 K/mm3 (0.0-0.8) 07/27/21 04:48 Eosinophils # (Manual) 0.0 K/mm3 (0.0-0.4) 07/27/21 04:48 Basophils # (Manual) 0.0 K/mm3 (0.0-0.1) 07/27/21 04:48 Metamyelocytes # 0.0 K/mm3 07/27/21 04:48 Myelocytes # 0.0 K/mm3 07/27/21 04:48 Promyelocytes # 0.0 K/mm3 07/27/21 04:48 Blast Cells # 0.0 K/mm3 07/27/21 04:48 WBC Morphology Not Reportable 07/27/21 04:48 Hypersegmented Neuts Not Reportable 07/27/21 04:48 Hyposegmented Neuts Not Reportable 07/27/21 04:48 Hypogranular Neuts Not Reportable 07/27/21 04:48 Smudge Cells Not Reportable 07/27/21 04:48 Toxic Granulation Not Reportable 07/27/21 04:48 Toxic Vacuolation Not Reportable 07/27/21 04:48 Dohle Bodies Not Reportable 07/27/21 04:48 Pelger-Huet Anomaly Not Reportable 07/27/21 04:48 Alonzo Rods Not Reportable 07/27/21 04:48 Platelet Estimate Consistent w auto 07/27/21 04:48 Clumped Platelets Not Reportable 07/27/21 04:48 Plt Clumps, EDTA Not Reportable 07/27/21 04:48 Large Platelets Not Reportable 07/27/21 04:48 Giant Platelets Not Reportable 07/27/21 04:48 Platelet Satelliting Not Reportable 07/27/21 04:48 Plt Morphology Comment Not Reportable 07/27/21 04:48 RBC Morphology Normal 07/27/21 04:48 Dimorphic RBCs Not Reportable 07/27/21 04:48 Polychromasia Not Reportable 07/27/21 04:48 Hypochromasia Not Reportable 07/27/21 04:48 Poikilocytosis Not Reportable 07/27/21 04:48 Anisocytosis Not Reportable 07/27/21 04:48 Microcytosis Not Reportable 07/27/21 04:48 Macrocytosis Not Reportable 07/27/21 04:48 Spherocytes Not Reportable 07/27/21 04:48 Pappenheimer Bodies Not Reportable 07/27/21 04:48 Sickle Cells Not Reportable 07/27/21 04:48 Target Cells Not Reportable 07/27/21 04:48 Tear Drop Cells Not Reportable 07/27/21 04:48 Ovalocytes Not Reportable 07/27/21 04:48 Helmet Cells Not Reportable 07/27/21 04:48 [place] Bodies Not Reportable 07/27/21 04:48 [place] Rings Not Reportable 07/27/21 04:48 [place] Cells Not Reportable 07/27/21 04:48 Bite Cells Not Reportable 07/27/21 04:48 Crenated Cell Not Reportable 07/27/21 04:48 Elliptocytes Not Reportable 07/27/21 04:48 Acanthocytes (Spur) Not Reportable 07/27/21 04:48 Rouleaux Not Reportable 07/27/21 04:48 Hemoglobin C Crystals Not Reportable 07/27/21 04:48 Schistocytes Not Reportable 07/27/21 04:48 Malaria parasites Not Reportable 07/27/21 04:48 Jarvis Bodies Not Reportable 07/27/21 04:48 Hem Pathologist Commnt No 07/27/21 04:48 PT 15.1 Sec. (12.2-14.9) H 07/18/21 16:00 INR 1.13 (0.87-1.13) 07/18/21 16:00 APTT 31.9 Sec. (24.2-36.6) 07/18/21 16:00 D-Dimer 1818.72 ng/mlDDU (0-234) H 07/30/21 05:00 ABG pH 7.436 (7.320-7.450) 07/31/21 04:00 POC ABG pCO2 41.1 mmHg (32.0-48.0) 07/31/21 04:00 ABG pCO2 35.2 mm Hg 07/19/21 Unknown POC ABG pO2 88.8 mmHg (83-108) 07/31/21 04:00 ABG pO2 64.2 mm Hg (80.0-90.0) L 07/19/21 Unknown POC ABG HCO3 27.0 07/31/21 04:00 ABG HCO3 20.1 mmol/L (20.0-26.0) 07/19/21 Unknown ABG O2 Saturation 96.6 (0-100) 07/31/21 04:00 ABG O2 Content 14.3 (0.0-44) 07/19/21 Unknown POC ABG Base Excess 2.6 07/31/21 04:00 ABG Base Excess -4.5 mmol/L (-2.0-3.0) L 07/19/21 Unknown ABG Hemoglobin 11.5 (12.0-17.5) L 07/31/21 04:00 ABG Oxyhemoglobin 95.8 (94-98) 07/31/21 04:00 ABG Carboxyhemoglobin 0.8 % (0.0-5.0) 07/19/21 Unknown ABG Methemoglobin 0.3 (0.0-1.5) 07/31/21 04:00 ABG Sodium 136.7 mmol/L (136.0-145.0) 07/31/21 04:00 ABG Potassium 4.2 mmol/L (3.40-4.50) 07/31/21 04:00 ABG Chloride 103.0 mmol/L (98-107) 07/31/21 04:00 ABG Glucose 143 mg/dL (65-95) H 07/31/21 04:00 Oxyhemoglobin 91.9 % (95.0-99.0) L 07/19/21 Unknown Carboxyhemoglobin 0.5 (0.5-1.5) 07/31/21 04:00 FiO2 100 % 07/19/21 Unknown FiO2 % 40.0 07/31/21 04:00 Sodium 140 mmol/L (137-145) 07/31/21 05:50 Potassium 4.8 mmol/L (3.6-5.0) 07/31/21 05:50 Chloride 102.0 mmol/L (98-107) 07/31/21 05:50 Carbon Dioxide 29 mmol/L (22-30) 07/31/21 05:50 Anion Gap 14 mmol/L 07/31/21 05:50 BUN 32 mg/dL (7-17) H 07/31/21 05:50 Creatinine 0.6 mg/dL (0.6-1.2) 07/31/21 05:50 Estimated GFR > 60 ml/min 07/31/21 05:50 BUN/Creatinine Ratio 53 % 07/31/21 05:50 Glucose 158 mg/dL (65-100) H 07/31/21 05:50 POC Glucose 179 mg/dL (70-105) H 07/31/21 11:36 Lactic Acid 1.40 mmol/L (0.7-2.0) 07/18/21 16:00 Calcium 9.7 mg/dL (8.4-10.2) 07/31/21 05:50 Phosphorus 3.70 mg/dL (2.5-4.5) 07/30/21 05:00 Magnesium 2.10 mg/dL (1.7-2.3) 07/30/21 05:00 Ferritin 242.1 ng/mL (10.0-200.0) H 07/30/21 05:00 Total Bilirubin 0.20 mg/dL (0.1-1.2) 07/22/21 04:39 AST 38 units/L (5-40) 07/22/21 04:39 ALT 29 units/L (7-56) 07/22/21 04:39 Alkaline Phosphatase 83 units/L (35-129) 07/22/21 04:39 Ammonia 37.0 umol/L (25-60) 07/18/21 16:00 Lactate Dehydrogenase 304 units/L (91-180) H 07/30/21 05:00 Total Creatine Kinase 157 units/L (30-135) H 07/18/21 16:00 Troponin T 0.106 ng/mL (0.00-0.029) H* 07/18/21 16:00 C-Reactive Protein 0.20 mg/dL (0.00-1.30) 07/30/21 05:00 Total Protein 6.4 g/dL (6.3-8.2) 07/22/21 04:39 Albumin 2.9 g/dL (3.9-5) L 07/22/21 04:39 Albumin/Globulin Ratio 0.8 % 07/22/21 04:39 Triglycerides 156 mg/dL (2-149) H 07/18/21 16:00 Cholesterol 127 mg/dL (50-199) 07/18/21 16:00 LDL Cholesterol Direct 64 mg/dL (50-130) 07/18/21 16:00 HDL Cholesterol 33 mg/dL (40-59) L 07/18/21 16:00 Cholesterol/HDL Ratio 3.84 % 07/18/21 16:00 Procalcitonin < 0.05 ng/mL (<0.15) 07/26/21 13:53 TSH 0.469 mlU/mL (0.270-4.200) 07/21/21 04:52 Free T4 1.05 ng/dL (0.76-1.46) 07/21/21 04:52 Arterial Blood Glucose 143 mg/dL (65-95) H 07/31/21 04:00 Arterial Blood Ionized Calcium 4.6 mg/dL (4.6-5.3) 07/31/21 04:00 Urine Color Yellow (Yellow) 07/18/21 Unknown Urine Turbidity Slightly-cloudy (Clear) 07/18/21 Unknown Urine pH 5.0 (5.0-7.0) 07/18/21 Unknown Ur Specific [place] 1.020 (1.003-1.030) 07/18/21 Unknown Urine Protein >500 mg/dL (Negative) 07/18/21 Unknown Urine Glucose (UA) Neg mg/dL (Negative) 07/18/21 Unknown Urine Ketones 20 mg/dL (Negative) 07/18/21 Unknown Urine Blood Neg (Negative) 07/18/21 Unknown Urine Nitrite Neg (Negative) 07/18/21 Unknown Urine Bilirubin Neg (Negative) 07/18/21 Unknown Urine Urobilinogen < 2.0 mg/dL (<2.0) 07/18/21 Unknown Ur Leukocyte Esterase Neg (Negative) 07/18/21 Unknown Urine WBC (Auto) 9.0 /HPF (0.0-6.0) H 07/18/21 Unknown Urine RBC (Auto) 2.0 /HPF (0.0-6.0) 07/18/21 Unknown U Epithel Cells (Auto) 1.0 /HPF (0-13.0) 07/18/21 Unknown Urine Bacteria (Auto) 1+ /HPF (Negative) 07/18/21 Unknown Amorphous Crystals Few 07/18/21 Unknown Urine Mucus Few /HPF 07/18/21 Unknown Vancomycin Trough 22.9 ug/mL (5.0-20.0) H 07/25/21 04:28 Salicylates < 0.3 mg/dL (2.8-20.0) L 07/18/21 16:00 Urine Opiates Screen Negative 07/18/21 Unknown Urine Methadone Screen Negative 07/18/21 Unknown Acetaminophen 5.7 ug/mL (10.0-30.0) L 07/18/21 16:00 Ur Barbiturates Screen Negative 07/18/21 Unknown Ur Phencyclidine Scrn Negative 07/18/21 Unknown Ur Amphetamines Screen Negative 07/18/21 Unknown U Benzodiazepines Scrn Negative 07/18/21 Unknown Urine Cocaine Screen Negative 07/18/21 Unknown U Marijuana (THC) Screen Negative 07/18/21 Unknown Drugs of Abuse Note Disclamer 07/18/21 Unknown Plasma/Serum Alcohol < 0.01 % (0-0.07) 07/18/21 16:00 Coronavirus (PCR) Positive (Negative) A 07/19/21 Unknown Blood Type O POSITIVE 07/18/21 16:05 Antibody Screen Negative 07/18/21 16:05 Guzman/IV: Voiding Method Indwelling Catheter Active Medications - Current Medications Current Medications: Generic Name Dose Route Start Last Admin Trade Name Freq PRN Reason Stop Dose Admin Acetaminophen 650 mg 07/18/21 22:49 Acetaminophen 325 Mg Tab PO Q4H PRN Pain MILD(1-3)/Fever >100.5/URENA Lipase/Protease/Amylase 1 each 07/18/21 22:56 Lipase 10,500/Protease 25,000/Amylase 43,750 (Units) Dr Alvarado FEEDTUBE PRN PRN For Clogged Feeding Tube Bisacodyl 10 mg 07/27/21 09:02 07/27/21 11:16 Bisacodyl 10 Mg Rect Supp [place] 10 mg QDAY PRN Administration Constip unreliev by MOM/or NPO Enoxaparin Sodium 100 mg 07/19/21 10:00 07/31/21 09:54 Enoxaparin 100 Mg/1 Ml Inj SUB-Q 100 mg Q12HR NICOLE Administration Protocol Famotidine 20 mg 07/18/21 22:00 07/31/21 09:54 Famotidine 20 Mg/2 Ml Inj IV 20 mg BID NICOLE Administration Fentanyl 50 mcg 07/18/21 14:41 Fentanyl 100 Mcg/2 Ml Inj IV Q10MIN PRN ANALGESIA Hydralazine HCl 10 mg 07/29/21 09:00 07/31/21 09:56 Hydralazine 10 Mg Tab PO Not Given Q8HR NICOLE Hydrophilic Ointment 1 applic 07/18/21 14:41 Lip Therapy Vaseline TP Q2HR PRN Dry Lips Fentanyl Citrate 2,000 mcg in 100 mls @ 4.915 mls/hr 07/18/21 16:00 07/31/21 07:00 Fentanyl Drip Premix IV 2 mcg/kg/hr TITR NICOLE 9.83 mls/hr Titration Protocol 1 MCG/KG/HR Midazolam HCl 100 mg/ Sodium 100 mls @ 2 mls/hr 07/18/21 19:00 07/31/21 12:30 Chloride IV 0 mg/hr TITR NICOLE 0 mls/hr Titration Protocol 2 MG/HR Cefepime HCl 2 gm in 100 mls @ 200 mls/hr 07/25/21 14:00 07/31/21 05:23 Cefepime/Ns 2 Gm/100 Ml IV 08/02/21 06:29 200 mls/hr Q8H NICOLE Administration Protocol Insulin Glargine 5 units 07/27/21 22:00 07/30/21 22:24 Insulin Glargine 100 Units/Ml SUB-Q 5 units QHS NICOLE Administration Insulin Human Lispro 0 unit 07/27/21 12:00 07/31/21 12:34 Insulin Lispro 100 Unit/Ml SUB-Q 3 unit Q6HR NICOLE Administration Protocol Methylprednisolone Sodium Succinate 40 mg 07/27/21 14:00 07/31/21 05:24 Methylprednisolone Sod Succinate 40 Mg/1 Ml Inj IV 40 mg Q8HR NICOLE Administration Midazolam HCl 2 mg 07/18/21 18:11 07/22/21 07:56 Midazolam 2 Mg/2 Ml Inj IV 2 mg Q10MIN PRN Administration Sedation Multi-Ingred Cream/Lotion/Oil/Oint 1 applic 07/18/21 14:41 Mineral Oil/Petrolatum, White Ophth Oint 3.5 Gm OU Q4HR PRN Dry Eye(s) Ondansetron HCl 4 mg 07/18/21 22:49 Ondansetron 4 Mg/2 Ml Inj IV Q8H PRN Nausea And Vomiting Quetiapine Fumarate 25 mg 07/30/21 22:00 07/30/21 22:25 Quetiapine 25 Mg Tab PO 25 mg QHS NICOLE Administration Senna/Docusate Sodium 1 tab 07/18/21 22:00 07/31/21 09:54 Sennosides/Docusate Sodium 8.6/50 Mg Tab FEEDTUBE 1 tab BID NICOLE Administration Simple Syrup 15 ml 07/18/21 22:56 Simple Syrup 15 Ml FEEDTUBE PRN PRN Hypoglycemia Simple Syrup 30 ml 07/18/21 22:56 Simple Syrup 15 Ml FEEDTUBE PRN PRN Hypoglycemia Sodium Bicarbonate 325 mg 07/18/21 22:56 Sodium Bicarbonate 325 Mg Tab FEEDTUBE PRN PRN For Clogged Feeding Tube Sodium Chloride 10 ml 07/19/21 10:00 07/31/21 09:56 Sodium Chloride 0.9% 10 Ml Flush Syringe IV 10 ml BID NICOLE Administration Sodium Chloride 10 ml 07/18/21 22:49 Sodium Chloride 0.9% 10 Ml Flush Syringe IV PRN PRN LINE FLUSH Sodium Chloride 5 ml 07/20/21 14:38 Sodium Chloride 0.9% 1000 Ml Iv Soln IV PRN PRN ART-LINE Nutrition/Malnutrition Assess - Dietary Evaluation Nutrition/Malnutrition Findings: Nutrition Notes Start: 07/19/21 09:15 Freq: Status: Active Protocol: Document 07/29/21 11:53 (Rec: 07/29/21 11:55 [id number]) Nutrition Notes Initial or Follow up Reassessment Current Diagnosis Acute Kidney Injury,Diabetes, Hypertension,Respiratory Failure Other Pertinent Diagnosis COVID Current Diet Vital HP at 55 ml/hr Labs/Tests BUN 34 Pertinent Medications Solumedrol Height 5 ft 6 in Weight 104.8 kg [place] Body Weight (kg) 59.09 BMI 37.3 Weight Status Obese Subjective/Other Information TF remains at goal and pt tolerating. Percent of energy/protein needs met: 93%/98% Burn Absent Trauma Absent Difficulty In Swallowing Current % PO Negligible Minimum of two criteria No physical signs of malnutrition #1 Nutrition Diagnosis Inadequate oral intake Diagnosis Progress(for reassessment Continues documentation) Is patient on ventilator? Yes Is Patient Ambulatory and/or Out of Bed No REE-([facility]-confined to bed) 2000.624 Kcal/Kg value to use for calculation 14 Approximate Energy Requirements Using 1467 kcal/Kg Calculation Used for Recommendations Kcal/kg Additional Notes Protein: (>2g/kg IBW) >118g Fluid: 1 ml/kcal or per MD Nutrition Intervention Change Diet Order: Continue Vital HP Nutrition Support: Vital HP at 55 ml/hr Flush 50 ml q4h Kcal 1,320 Protein (gm) 116 Fluid (mL) 1,104 Goal #1 Meet at least 75% of protein and kcal needs via TF Anticipated Discharge Needs: Unable to determine at this time Follow-Up By: 08/03/21 Additional Comments F/u: TF tolerance and renal function <EDMUNDO DAS - Last Filed: 08/01/21 11:05> History Interval history: I saw and evaluated the patient. Discussed with the nurse practitioner and agree with their findings and plan as documented in this note. Hospitalist Physical - Constitutional Vitals: Temp Pulse Resp BP Pulse Ox 99.9 F H 129 H 26 H 200/72 95 08/01/21 03:12 08/01/21 08:25 08/01/21 05:31 08/01/21 08:25 08/01/21 10:21 HEART Score - HEART Score Troponin: Troponin T 0.106 ng/mL (0.00-0.029) H* 07/18/21 16:00 Results - Labs CBC & Chem 7: 08/01/21 06:00 08/01/21 06:00 Labs: Laboratory Last Values WBC 10.1 K/mm3 (4.5-11.0) 08/01/21 06:00 RBC 3.65 M/mm3 (3.65-5.03) 08/01/21 06:00 Hgb 10.7 gm/dl (10.1-14.3) 08/01/21 06:00 Hct 31.9 % (30.3-42.9) 08/01/21 06:00 MCV 88 fl (79-97) 08/01/21 06:00 MCH 29 pg (28-32) 08/01/21 06:00 MCHC 34 % (30-34) 08/01/21 06:00 RDW 14.9 % (13.2-15.2) 08/01/21 06:00 Plt Count 223 K/mm3 (140-440) 08/01/21 06:00 Lymph % (Auto) 10.7 % (13.4-35.0) L 07/19/21 04:59 [place] % (Auto) 4.8 % (0.0-7.3) 07/19/21 04:59 Eos % (Auto) 0.1 % (0.0-4.3) 07/19/21 04:59 Baso % (Auto) 0.1 % (0.0-1.8) 07/19/21 04:59 Lymph # (Auto) 1.1 K/mm3 (1.2-5.4) L 07/19/21 04:59 [place] # (Auto) 0.5 K/mm3 (0.0-0.8) 07/19/21 04:59 Eos # (Auto) 0.0 K/mm3 (0.0-0.4) 07/19/21 04:59 Baso # (Auto) 0.0 K/mm3 (0.0-0.1) 07/19/21 04:59 Add Manual Diff Complete 07/27/21 04:48 Total Counted 100 07/27/21 04:48 Seg Neutrophils % Breaker Off 07/27/21 04:48 Seg Neuts % (Manual) 92.0 % (40.0-70.0) H 07/27/21 04:48 Band Neutrophils % 1.0 % 07/26/21 06:07 Lymphocytes % (Manual) 3.0 % (13.4-35.0) L 07/27/21 04:48 Monocytes % (Manual) 5.0 % (0.0-7.3) 07/27/21 04:48 Metamyelocytes % 1.0 % 07/26/21 06:07 Myelocytes % 1.0 % 07/25/21 04:28 Nucleated RBC % 1.0 % (0.0-0.9) H 07/27/21 04:48 Seg Neutrophils # 8.7 K/mm3 (1.8-7.7) H 07/19/21 04:59 Seg Neutrophils # Man 15.2 K/mm3 (1.8-7.7) H 07/27/21 04:48 Band Neutrophils # 0.0 K/mm3 07/27/21 04:48 Lymphocytes # (Manual) 0.5 K/mm3 (1.2-5.4) L 07/27/21 04:48 Abs React Lymphs (Man) 0.0 K/mm3 07/27/21 04:48 Monocytes # (Manual) 0.8 K/mm3 (0.0-0.8) 07/27/21 04:48 Eosinophils # (Manual) 0.0 K/mm3 (0.0-0.4) 07/27/21 04:48 Basophils # (Manual) 0.0 K/mm3 (0.0-0.1) 07/27/21 04:48 Metamyelocytes # 0.0 K/mm3 07/27/21 04:48 Myelocytes # 0.0 K/mm3 07/27/21 04:48 Promyelocytes # 0.0 K/mm3 07/27/21 04:48 Blast Cells # 0.0 K/mm3 07/27/21 04:48 WBC Morphology Not Reportable 07/27/21 04:48 Hypersegmented Neuts Not Reportable 07/27/21 04:48 Hyposegmented Neuts Not Reportable 07/27/21 04:48 Hypogranular Neuts Not Reportable 07/27/21 04:48 Smudge Cells Not Reportable 07/27/21 04:48 Toxic Granulation Not Reportable 07/27/21 04:48 Toxic Vacuolation Not Reportable 07/27/21 04:48 Dohle Bodies Not Reportable 07/27/21 04:48 Pelger-Huet Anomaly Not Reportable 07/27/21 04:48 Alonzo Rods Not Reportable 07/27/21 04:48 Platelet Estimate Consistent w auto 07/27/21 04:48 Clumped Platelets Not Reportable 07/27/21 04:48 Plt Clumps, EDTA Not Reportable 07/27/21 04:48 Large Platelets Not Reportable 07/27/21 04:48 Giant Platelets Not Reportable 07/27/21 04:48 Platelet Satelliting Not Reportable 07/27/21 04:48 Plt Morphology Comment Not Reportable 07/27/21 04:48 RBC Morphology Normal 07/27/21 04:48 Dimorphic RBCs Not Reportable 07/27/21 04:48 Polychromasia Not Reportable 07/27/21 04:48 Hypochromasia Not Reportable 07/27/21 04:48 Poikilocytosis Not Reportable 07/27/21 04:48 Anisocytosis Not Reportable 07/27/21 04:48 Microcytosis Not Reportable 07/27/21 04:48 Macrocytosis Not Reportable 07/27/21 04:48 Spherocytes Not Reportable 07/27/21 04:48 Pappenheimer Bodies Not Reportable 07/27/21 04:48 Sickle Cells Not Reportable 07/27/21 04:48 Target Cells Not Reportable 07/27/21 04:48 Tear Drop Cells Not Reportable 07/27/21 04:48 Ovalocytes Not Reportable 07/27/21 04:48 Helmet Cells Not Reportable 07/27/21 04:48 [place] Bodies Not Reportable 07/27/21 04:48 [place] Rings Not Reportable 07/27/21 04:48 [place] Cells Not Reportable 07/27/21 04:48 Bite Cells Not Reportable 07/27/21 04:48 Crenated Cell Not Reportable 07/27/21 04:48 Elliptocytes Not Reportable 07/27/21 04:48 Acanthocytes (Spur) Not Reportable 07/27/21 04:48 Rouleaux Not Reportable 07/27/21 04:48 Hemoglobin C Crystals Not Reportable 07/27/21 04:48 Schistocytes Not Reportable 07/27/21 04:48 Malaria parasites Not Reportable 07/27/21 04:48 [place] Bodies Not Reportable 07/27/21 04:48 Hem Pathologist Commnt No 07/27/21 04:48 PT 15.1 Sec. (12.2-14.9) H 07/18/21 16:00 INR 1.13 (0.87-1.13) 07/18/21 16:00 APTT 31.9 Sec. (24.2-36.6) 07/18/21 16:00 D-Dimer 1503.43 ng/mlDDU (0-234) H 08/01/21 06:00 ABG pH 7.477 (7.320-7.450) H 08/01/21 04:00 POC ABG pCO2 41.3 mmHg (32.0-48.0) 08/01/21 04:00 ABG pCO2 35.2 mm Hg 07/19/21 Unknown POC ABG pO2 89.8 mmHg (83-108) 08/01/21 04:00 ABG pO2 64.2 mm Hg (80.0-90.0) L 07/19/21 Unknown POC ABG HCO3 29.9 08/01/21 04:00 ABG HCO3 20.1 mmol/L (20.0-26.0) 07/19/21 Unknown ABG O2 Saturation 97.0 (0-100) 08/01/21 04:00 ABG O2 Content 14.3 (0.0-44) 07/19/21 Unknown POC ABG Base Excess 5.8 08/01/21 04:00 ABG Base Excess -4.5 mmol/L (-2.0-3.0) L 07/19/21 Unknown ABG Hemoglobin 11.4 (12.0-17.5) L 08/01/21 04:00 ABG Oxyhemoglobin 96.4 (94-98) 08/01/21 04:00 ABG Carboxyhemoglobin 0.8 % (0.0-5.0) 07/19/21 Unknown ABG Methemoglobin 0.3 (0.0-1.5) 08/01/21 04:00 ABG Sodium 134.4 mmol/L (136.0-145.0) L 08/01/21 04:00 ABG Potassium 4.3 mmol/L (3.40-4.50) 08/01/21 04:00 ABG Chloride 99.0 mmol/L (98-107) 08/01/21 04:00 ABG Glucose 173 mg/dL (65-95) H 08/01/21 04:00 Oxyhemoglobin 91.9 % (95.0-99.0) L 07/19/21 Unknown Carboxyhemoglobin 0.3 (0.5-1.5) L 08/01/21 04:00 FiO2 100 % 07/19/21 Unknown FiO2 % 40.0 08/01/21 04:00 Sodium 136 mmol/L (137-145) L 08/01/21 06:00 Potassium 4.8 mmol/L (3.6-5.0) 08/01/21 06:00 Chloride 98.7 mmol/L (98-107) 08/01/21 06:00 Carbon Dioxide 31 mmol/L (22-30) H 08/01/21 06:00 Anion Gap 11 mmol/L 08/01/21 06:00 BUN 28 mg/dL (7-17) H 08/01/21 06:00 Creatinine 0.5 mg/dL (0.6-1.2) L 08/01/21 06:00 Estimated GFR > 60 ml/min 08/01/21 06:00 BUN/Creatinine Ratio 56 % 08/01/21 06:00 Glucose 154 mg/dL (65-100) H 08/01/21 06:00 POC Glucose 153 mg/dL (70-105) H 08/01/21 04:58 Lactic Acid 1.40 mmol/L (0.7-2.0) 07/18/21 16:00 Calcium 9.7 mg/dL (8.4-10.2) 08/01/21 06:00 Phosphorus 3.30 mg/dL (2.5-4.5) 08/01/21 06:00 Magnesium 2.10 mg/dL (1.7-2.3) 08/01/21 06:00 Ferritin 244.0 ng/mL (10.0-200.0) H 08/01/21 06:00 Total Bilirubin 0.20 mg/dL (0.1-1.2) 07/22/21 04:39 AST 38 units/L (5-40) 07/22/21 04:39 ALT 29 units/L (7-56) 07/22/21 04:39 Alkaline Phosphatase 83 units/L (35-129) 07/22/21 04:39 Ammonia 37.0 umol/L (25-60) 07/18/21 16:00 Lactate Dehydrogenase 369 units/L (91-180) H 08/01/21 06:00 Total Creatine Kinase 157 units/L (30-135) H 07/18/21 16:00 Troponin T 0.106 ng/mL (0.00-0.029) H* 07/18/21 16:00 C-Reactive Protein 0.20 mg/dL (0.00-1.30) 08/01/21 06:00 Total Protein 6.4 g/dL (6.3-8.2) 07/22/21 04:39 Albumin 2.9 g/dL (3.9-5) L 07/22/21 04:39 Albumin/Globulin Ratio 0.8 % 07/22/21 04:39 Triglycerides 156 mg/dL (2-149) H 07/18/21 16:00 Cholesterol 127 mg/dL (50-199) 07/18/21 16:00 LDL Cholesterol Direct 64 mg/dL (50-130) 07/18/21 16:00 HDL Cholesterol 33 mg/dL (40-59) L 07/18/21 16:00 Cholesterol/HDL Ratio 3.84 % 07/18/21 16:00 Procalcitonin < 0.05 ng/mL (<0.15) 07/26/21 13:53 TSH 0.469 mlU/mL (0.270-4.200) 07/21/21 04:52 Free T4 1.05 ng/dL (0.76-1.46) 07/21/21 04:52 Arterial Blood Glucose 173 mg/dL (65-95) H 08/01/21 04:00 Arterial Blood Ionized Calcium 4.7 mg/dL (4.6-5.3) 08/01/21 04:00 Urine Color Yellow (Yellow) 07/18/21 Unknown Urine Turbidity Slightly-cloudy (Clear) 07/18/21 Unknown Urine pH 5.0 (5.0-7.0) 07/18/21 Unknown Ur Specific [place] 1.020 (1.003-1.030) 07/18/21 Unknown Urine Protein >500 mg/dL (Negative) 07/18/21 Unknown Urine Glucose (UA) Neg mg/dL (Negative) 07/18/21 Unknown Urine Ketones 20 mg/dL (Negative) 07/18/21 Unknown Urine Blood Neg (Negative) 07/18/21 Unknown Urine Nitrite Neg (Negative) 07/18/21 Unknown Urine Bilirubin Neg (Negative) 07/18/21 Unknown Urine Urobilinogen < 2.0 mg/dL (<2.0) 07/18/21 Unknown Ur Leukocyte Esterase Neg (Negative) 07/18/21 Unknown Urine WBC (Auto) 9.0 /HPF (0.0-6.0) H 07/18/21 Unknown Urine RBC (Auto) 2.0 /HPF (0.0-6.0) 07/18/21 Unknown U Epithel Cells (Auto) 1.0 /HPF (0-13.0) 07/18/21 Unknown Urine Bacteria (Auto) 1+ /HPF (Negative) 07/18/21 Unknown Amorphous Crystals Few 07/18/21 Unknown Urine Mucus Few /HPF 07/18/21 Unknown Vancomycin Trough 22.9 ug/mL (5.0-20.0) H 07/25/21 04:28 Salicylates < 0.3 mg/dL (2.8-20.0) L 07/18/21 16:00 Urine Opiates Screen Negative 07/18/21 Unknown Urine Methadone Screen Negative 07/18/21 Unknown Acetaminophen 5.7 ug/mL (10.0-30.0) L 07/18/21 16:00 Ur Barbiturates Screen Negative 07/18/21 Unknown Ur Phencyclidine Scrn Negative 07/18/21 Unknown Ur Amphetamines Screen Negative 07/18/21 Unknown U Benzodiazepines Scrn Negative 07/18/21 Unknown Urine Cocaine Screen Negative 07/18/21 Unknown U Marijuana (THC) Screen Negative 07/18/21 Unknown Drugs of Abuse Note Disclamer 07/18/21 Unknown Plasma/Serum Alcohol < 0.01 % (0-0.07) 07/18/21 16:00 Coronavirus (PCR) Positive (Negative) A 07/19/21 Unknown Blood Type O POSITIVE 07/18/21 16:05 Antibody Screen Negative 07/18/21 16:05 Guzman/IV: Voiding Method Indwelling Catheter Active Medications - Current Medications Current Medications: Generic Name Dose Route Start Last Admin Trade Name Freq PRN Reason Stop Dose Admin Acetaminophen 650 mg 07/18/21 22:49 Acetaminophen 325 Mg Tab PO Q4H PRN Pain MILD(1-3)/Fever >100.5/URENA Lipase/Protease/Amylase 1 each 07/18/21 22:56 Lipase 10,500/Protease 25,000/Amylase 43,750 (Units) Dr Alvarado FEEDTUBE PRN PRN For Clogged Feeding Tube Bisacodyl 10 mg 07/27/21 09:02 07/27/21 11:16 Bisacodyl 10 Mg Rect Supp [place] 10 mg QDAY PRN Administration Constip unreliev by MOM/or NPO Enoxaparin Sodium 100 mg 07/19/21 10:00 08/01/21 09:04 Enoxaparin 100 Mg/1 Ml Inj SUB-Q 100 mg Q12HR NICOLE Administration Protocol Famotidine 20 mg 07/18/21 22:00 08/01/21 09:04 Famotidine 20 Mg/2 Ml Inj IV 20 mg BID NICOLE Administration Fentanyl 50 mcg 07/18/21 14:41 Fentanyl 100 Mcg/2 Ml Inj IV Q10MIN PRN ANALGESIA Fentanyl 50 mcg 08/01/21 09:00 08/01/21 09:05 Fentanyl 100 Mcg/2 Ml Inj IV 50 mcg Q4H PRN Administration Pain , Severe (7-10) Haloperidol Lactate 5 mg 08/01/21 10:29 Haloperidol Lactate 5 Mg/1 Ml Inj IV Q6H PRN Agitation Hydralazine HCl 20 mg 08/01/21 11:00 Hydralazine 20 Mg/1 Ml Inj IV Q4HR NICOLE Hydrophilic Ointment 1 applic 07/18/21 14:41 Lip Therapy Vaseline TP Q2HR PRN Dry Lips Cefepime HCl 2 gm in 100 mls @ 200 mls/hr 07/25/21 14:00 08/01/21 06:15 Cefepime/Ns 2 Gm/100 Ml IV 08/02/21 06:29 200 mls/hr Q8H NICOLE Administration Protocol Insulin Glargine 5 units 07/27/21 22:00 07/31/21 22:48 Insulin Glargine 100 Units/Ml SUB-Q 5 units QHS NICOLE Administration Insulin Human Lispro 0 unit 07/27/21 12:00 08/01/21 06:15 Insulin Lispro 100 Unit/Ml SUB-Q 3 unit Q6HR NICOLE Administration Protocol Lorazepam 1 mg 08/01/21 09:00 Lorazepam 2 Mg/Ml Vial IV Q4H PRN Anxiety Methylprednisolone Sodium Succinate 40 mg 07/27/21 14:00 08/01/21 06:14 Methylprednisolone Sod Succinate 40 Mg/1 Ml Inj IV 40 mg Q8HR NICOLE Administration Midazolam HCl 2 mg 07/18/21 18:11 07/22/21 07:56 Midazolam 2 Mg/2 Ml Inj IV 2 mg Q10MIN PRN Administration Sedation Multi-Ingred Cream/Lotion/Oil/Oint 1 applic 07/18/21 14:41 Mineral Oil/Petrolatum, White Ophth Oint 3.5 Gm OU Q4HR PRN Dry Eye(s) Ondansetron HCl 4 mg 07/18/21 22:49 Ondansetron 4 Mg/2 Ml Inj IV Q8H PRN Nausea And Vomiting Senna/Docusate Sodium 1 tab 07/18/21 22:00 07/31/21 22:51 Sennosides/Docusate Sodium 8.6/50 Mg Tab FEEDTUBE 1 tab BID NICOLE Administration Simple Syrup 15 ml 07/18/21 22:56 Simple Syrup 15 Ml FEEDTUBE PRN PRN Hypoglycemia Simple Syrup 30 ml 07/18/21 22:56 Simple Syrup 15 Ml FEEDTUBE PRN PRN Hypoglycemia Sodium Bicarbonate 325 mg 07/18/21 22:56 Sodium Bicarbonate 325 Mg Tab FEEDTUBE PRN PRN For Clogged Feeding Tube Sodium Chloride 10 ml 07/19/21 10:00 08/01/21 09:06 Sodium Chloride 0.9% 10 Ml Flush Syringe IV 10 ml BID NICOLE Administration Sodium Chloride 10 ml 07/18/21 22:49 Sodium Chloride 0.9% 10 Ml Flush Syringe IV PRN PRN LINE FLUSH Sodium Chloride 5 ml 07/20/21 14:38 Sodium Chloride 0.9% 1000 Ml Iv Soln IV PRN PRN ART-LINE Nutrition/Malnutrition Assess - Dietary Evaluation Nutrition/Malnutrition Findings: Nutrition Notes Start: 07/19/21 09:15 Freq: Status: Active Protocol: Document 07/29/21 11:53 MK (Rec: 07/29/21 11:55 MK [id number]) Nutrition Notes Initial or Follow up Reassessment Current Diagnosis Acute Kidney Injury,Diabetes, Hypertension,Respiratory Failure Other Pertinent Diagnosis COVID Current Diet Vital HP at 55 ml/hr Labs/Tests BUN 34 Pertinent Medications Solumedrol Height 5 ft 6 in Weight 104.8 kg [place] Body Weight (kg) 59.09 BMI 37.3 Weight Status Obese Subjective/Other Information TF remains at goal and pt tolerating. Percent of energy/protein needs met: 93%/98% Burn Absent Trauma Absent Difficulty In Swallowing Current % PO Negligible Minimum of two criteria No physical signs of malnutrition #1 Nutrition Diagnosis Inadequate oral intake Diagnosis Progress(for reassessment Continues documentation) Is patient on ventilator? Yes Is Patient Ambulatory and/or Out of Bed No REE-([facility]-confined to bed) 2001.624 Kcal/Kg value to use for calculation 14 Approximate Energy Requirements Using 1467 kcal/Kg Calculation Used for Recommendations Kcal/kg Additional Notes Protein: (>2g/kg IBW) >118g Fluid: 1 ml/kcal or per MD Nutrition Intervention Change Diet Order: Continue Vital HP Nutrition Support: Vital HP at 55 ml/hr Flush 50 ml q4h Kcal 1,320 Protein (gm) 116 Fluid (mL) 1,104 Goal #1 Meet at least 75% of protein and kcal needs via TF Anticipated Discharge Needs: Unable to determine at this time Follow-Up By: 08/03/21 Additional Comments F/u: TF tolerance and renal function
[2021-07-31] MEDS: INSULIN GLARGINE 100 UNITS/ML SUB-Q SCH (22:48)
[2021-07-31] MEDS: QUEtiapine 25 MG TAB PO SCH (22:51)
[2021-08-01] MEDS: fentaNYL DRIP Premix 2,000 MCG/100 ML BAG IV SCH (02:51)
[2021-08-01] MEDS: INSULIN LISPRO 100 UNIT/ML SUB-Q SCH ×4 (06:14→19:18)
[2021-08-01] MEDS: FREE WATER PO SCH ×4 (06:14→19:18)
[2021-08-01] MEDS: methylPREDNISolone Sod Succinate 40 MG/1 ML INJ IV SCH ×2 (06:14→14:52)
[2021-08-01] MEDS: CEFEPIME/NS 2 GM/100 ML 2 GM/100 ML BAG IV SCH ×2 (06:15→14:52)
[2021-08-01 06:39] LABS: Hematocrit 31.9 % (30.3-42.9); Hemoglobin 10.7 gm/dl (10.1-14.3); Mean Corpuscular HGB Conc 34 % (30-34); Mean Corpuscular Volume 88 fl (79-97); Platelet Count 223 K/mm3 (140-440); Red Blood Count 3.65 M/mm3 (3.65-5.03); Red Cell Distribution Width 14.9 % (13.2-15.2)
[2021-08-01 06:57] LABS: Blood Urea Nitrogen 28 mg/dL (7-17); Calcium 9.7 mg/dL (8.4-10.2); Hemolysis Index 2
[2021-08-01 06:59] LABS: BUN/Creatinine Ratio 56
[2021-08-01] MEDS: hydrALAZINE 10 MG TAB PO SCH ×3 (07:11→07:20)
--- NOTE | 2021-08-01 08:19 | Progress Note ---
Assessment and Plan 55 y/o obese female with acute respiratory failure, pulmonary embolism, now with renal failure, most likely all secondary to COVID 19 08/01/21: Will attempt extubation this am. Ordered bipap therapy for PRN. Likely will need bp control but will address once extubated. Called family to update and then will call back once off the vent. 07/31/21: Drop PEEP to 6 later this afternoon and attempt to wean sedation to off. patient will likely not tolerate this. If she does then will try PSV this afternoon. If not, will plan to extubate with bipap available PRN early tomorrow morning. Discussed this with daughters over the phone. Asked nursing to address transducer with art line. I suspect the positioning is incorrect. 07/30/21: Will wean PEEP to 10 this afternoon. If tolerates then around 6-8 PM may drop to 8. Would not go any further than that today. Keep FiO2 at 40%. Once PEEP around 6, can start to lighten sedation and try PSV trials. Prognosis is still guarded. Spoke with family over the phone to update them on progress but also explain to them their family member is still gravely ill. Keep steroids at current dose at leas through the weekend. 07/29/21: Wean FiO2 as tolerated. PaO2 is good. Continue current dose of steroids. Changed Hydralazine. Continue anticoagulation. May be able to start weaning PEEP tomorrow. 07/28/21: Repeat CXR today to check ET tube. Wean steroids when able. Continue to wean FiO2 as tolerated. Do not move PEEP until FiO2 is at 45-50%. Guarded prognosis remains. Will call family now. 07/27/21: Ok with advancing ET tube 2-3 cm. Continue to wean FiO2 as tolerated. Repeat CXR post advancement of ET tube. Dropped steroids too 40q8 07/26/21: Back down to 65% like on 07/22 but PEEP is at 12. Will monitor closely. COntinue current level of sedation and high dose steroids. Prognosis is very very guarded. 07/23/21: Dropped FiO2 to 70. Hopeful to wean back down. Keep peep elevated until FiO2 at 50-55%. Continue High dose steroids. Keep RASS at -4. Na is better. Will stop D5W. Updated Daughter (Linda) and GodDaughter over the phone. If someone could please call them at least one day over the weekend I will call them again on Monday. Prognosis remains very guarded. Explained to them the high mortality rate associated with COVID and mechanical ventilation. 07/22/21: Dropped Fio2 to 65. Continue to wean for sats >88%. keep elevated peep until FiO2 around 50-55% so hopefully in the next 24-36 hours we can get there. Continue sedation to keep rass at -4. Continue high dose steroids. Will continue D5W for now until Free water can control sodium. need CBC in the am along with BMP. Prognosis still remains guarded. Continue lovenox 07/21/21: Dropped FiO2 to 80%. Continue to wean for sats >88%. Keep peep elevated until FiO2 around 50-55%. Continue remdesivir and adequate levels of sedation. Continue high dose steroids. No proning for now. Continue therapeutic lovenox. Prognosis remains guarded. 07/20/21: COVID positive. Started Remdesivir. Renal function improved. COntinue high dose steroids at current dosing for now. Suggest repeat ABG later this afternoon if able, may need art line but BP stable for now. No proning. Agree with therapeutic Lovenox. Guarded prognosis. 1. Follow up COVID testing, continue isolation 2. Agree with high dose IV steroids, if positive, will change to solumedrol 125q8 3. If positive then would need remdesivir and Actemra, hopefully still a candidate given bump in renal function 4. Unable to prone patient at moment, but did increase PEEP to 20 and ordered repeat ABG at 1400 5 Very very guarded prognosis CCT 31 minutes. Subjective Date of service: 08/01/21 Principal diagnosis: COVID pneumonia Interval history: Awake but still on sedation. ABG good this am. Objective Vital Signs - 12hr 07/31/21 07/31/21 07/31/21 20:31 20:45 20:57 Temperature Pulse Rate 60 59 L 58 L Pulse Rate [ From Monitor] Respiratory 26 H 26 H 26 H Rate Blood Pressure 133/76 133/76 133/76 O2 Sat by Pulse 97 97 97 Oximetry 07/31/21 07/31/21 07/31/21 21:00 21:15 21:30 Temperature Pulse Rate 63 59 L 80 Pulse Rate [ From Monitor] Respiratory 26 H 26 H 26 H Rate Blood Pressure 138/79 138/79 138/79 O2 Sat by Pulse 95 98 98 Oximetry 07/31/21 07/31/21 07/31/21 21:45 22:01 22:15 Temperature Pulse Rate 69 69 71 Pulse Rate [ From Monitor] Respiratory 26 H 26 H 25 H Rate Blood Pressure 138/79 137/83 137/83 O2 Sat by Pulse 97 95 97 Oximetry 07/31/21 07/31/21 07/31/21 22:31 22:45 23:00 Temperature Pulse Rate 67 77 66 Pulse Rate [ From Monitor] Respiratory 26 H 26 H 26 H Rate Blood Pressure 137/83 137/83 125/77 O2 Sat by Pulse 97 97 96 Oximetry 07/31/21 07/31/21 07/31/21 23:15 23:20 23:31 Temperature Pulse Rate 64 68 65 Pulse Rate [ From Monitor] Respiratory 26 H 26 H Rate Blood Pressure 125/77 147/44 125/77 O2 Sat by Pulse 98 98 98 Oximetry 07/31/21 07/31/21 08/01/21 23:34 23:45 00:00 Temperature 99.5 F Pulse Rate 63 63 Pulse Rate [ 56 L From Monitor] Respiratory 26 H 26 H Rate Blood Pressure 125/77 118/67 O2 Sat by Pulse 97 95 Oximetry 08/01/21 08/01/21 08/01/21 00:15 00:31 00:45 Temperature Pulse Rate 62 55 L 52 L Pulse Rate [ From Monitor] Respiratory 26 H 26 H 26 H Rate Blood Pressure 118/67 118/67 118/67 O2 Sat by Pulse 97 97 97 Oximetry 08/01/21 08/01/21 08/01/21 01:01 01:15 01:31 Temperature Pulse Rate 59 L 112 H 71 Pulse Rate [ From Monitor] Respiratory 26 H 16 22 Rate Blood Pressure 157/79 157/79 157/79 O2 Sat by Pulse 98 98 96 Oximetry 08/01/21 08/01/21 08/01/21 01:45 02:00 02:15 Temperature Pulse Rate 68 78 75 Pulse Rate [ From Monitor] Respiratory 26 H 14 15 Rate Blood Pressure 157/79 169/83 169/83 O2 Sat by Pulse 96 95 97 Oximetry 08/01/21 08/01/21 08/01/21 02:31 02:45 03:00 Temperature Pulse Rate 117 H 113 H 74 Pulse Rate [ From Monitor] Respiratory 16 13 26 H Rate Blood Pressure 169/83 169/83 152/83 O2 Sat by Pulse 97 97 94 Oximetry 08/01/21 08/01/21 08/01/21 03:12 03:15 03:26 Temperature 99.9 F H Pulse Rate 67 101 H Pulse Rate [ From Monitor] Respiratory 26 H Rate Blood Pressure 152/83 168/62 O2 Sat by Pulse 98 98 Oximetry 08/01/21 08/01/21 08/01/21 03:31 03:45 04:00 Temperature Pulse Rate 88 64 102 H Pulse Rate [ 102 H From Monitor] Respiratory 17 26 H 31 H Rate Blood Pressure 152/83 152/83 O2 Sat by Pulse 99 98 97 Oximetry 08/01/21 08/01/21 08/01/21 04:01 04:15 04:31 Temperature Pulse Rate 67 63 Pulse Rate [ From Monitor] Respiratory 26 H Rate Blood Pressure 196/104 173/94 171/88 O2 Sat by Pulse 96 97 98 Oximetry 08/01/21 08/01/21 08/01/21 04:45 05:00 05:15 Temperature Pulse Rate 64 64 61 Pulse Rate [ From Monitor] Respiratory 26 H 26 H 26 H Rate Blood Pressure 171/88 182/84 182/84 O2 Sat by Pulse 98 98 99 Oximetry 08/01/21 08/01/21 08/01/21 05:31 07:11 07:20 Temperature Pulse Rate 64 59 L 86 Pulse Rate [ From Monitor] Respiratory 26 H Rate Blood Pressure 182/84 99/34 192/52 O2 Sat by Pulse 100 Oximetry Constitutional: no acute distress, comatose ENT: other (orally intubated and sedated) Ascultation: Bilateral: diminished breath sounds Cardiovascular: regular rate and rhythm Gastrointestinal: normoactive bowel sounds, soft, non-tender Integumentary: normal Extremities: no cyanosis Neurologic: other (Sedated) CBC and BMP: 08/01/21 06:00 08/01/21 06:00 ABG, PT/INR, D-dimer: ABG ABG pH 7.477 (7.320-7.450) H 08/01/21 04:00 POC ABG pCO2 41.3 mmHg (32.0-48.0) 08/01/21 04:00 ABG pCO2 35.2 mm Hg 07/19/21 Unknown POC ABG pO2 89.8 mmHg (83-108) 08/01/21 04:00 ABG pO2 64.2 mm Hg (80.0-90.0) L 07/19/21 Unknown POC ABG HCO3 29.9 08/01/21 04:00 ABG O2 Saturation 97.0 (0-100) 08/01/21 04:00 PT/INR, D-dimer PT 15.1 Sec. (12.2-14.9) H 07/18/21 16:00 INR 1.13 (0.87-1.13) 07/18/21 16:00 D-Dimer 1818.72 ng/mlDDU (0-234) H 07/30/21 05:00 Abnormal lab findings: Abnormal Labs 07/18/21 07/18/21 07/18/21 16:00 16:00 16:00 WBC RBC Hgb Hct RDW 15.3 H Lymph % (Auto) 7.9 L Lymph # (Auto) 0.8 L Seg Neutrophils % 86.3 H Seg Neuts % (Manual) Lymphocytes % (Manual) Nucleated RBC % Seg Neutrophils # 9.0 H Seg Neutrophils # Man Lymphocytes # (Manual) Monocytes # (Manual) PT 15.1 H D-Dimer > 58089 H ABG pH POC ABG pCO2 POC ABG pO2 ABG pO2 ABG O2 Saturation ABG Base Excess ABG Hemoglobin ABG Oxyhemoglobin ABG Sodium ABG Chloride ABG Glucose Oxyhemoglobin Carboxyhemoglobin Sodium Potassium 3.5 L Chloride Carbon Dioxide 20 L BUN 19 H Creatinine Glucose 140 H POC Glucose Calcium Magnesium Ferritin AST 43 H Lactate Dehydrogenase 705 H Total Creatine Kinase 157 H Troponin T 0.106 H* C-Reactive Protein 33.00 H Total Protein Albumin 3.2 L Triglycerides 156 H HDL Cholesterol 33 L Arterial Blood Glucose Arterial Blood Ionized Calcium Urine WBC (Auto) Vancomycin Trough Salicylates Acetaminophen Coronavirus (PCR) 07/18/21 07/18/21 07/18/21 16:00 16:00 16:00 WBC RBC Hgb Hct RDW Lymph % (Auto) Lymph # (Auto) Seg Neutrophils % Seg Neuts % (Manual) Lymphocytes % (Manual) Nucleated RBC % Seg Neutrophils # Seg Neutrophils # Man Lymphocytes # (Manual) Monocytes # (Manual) PT D-Dimer ABG pH POC ABG pCO2 POC ABG pO2 ABG pO2 ABG O2 Saturation ABG Base Excess ABG Hemoglobin ABG Oxyhemoglobin ABG Sodium ABG Chloride ABG Glucose Oxyhemoglobin Carboxyhemoglobin Sodium Potassium Chloride Carbon Dioxide BUN Creatinine Glucose POC Glucose Calcium Magnesium Ferritin 657.0 H AST Lactate Dehydrogenase Total Creatine Kinase Troponin T C-Reactive Protein Total Protein Albumin Triglycerides HDL Cholesterol Arterial Blood Glucose Arterial Blood Ionized Calcium Urine WBC (Auto) Vancomycin Trough Salicylates < 0.3 L Acetaminophen 5.7 L Coronavirus (PCR) 07/18/21 07/18/21 07/19/21 Unknown Unknown 04:33 WBC RBC Hgb Hct RDW Lymph % (Auto) Lymph # (Auto) Seg Neutrophils % Seg Neuts % (Manual) Lymphocytes % (Manual) Nucleated RBC % Seg Neutrophils # Seg Neutrophils # Man Lymphocytes # (Manual) Monocytes # (Manual) PT D-Dimer ABG pH 7.275 L POC ABG pCO2 POC ABG pO2 68.7 L 53.1 L ABG pO2 ABG O2 Saturation ABG Base Excess ABG Hemoglobin ABG Oxyhemoglobin 88.3 L 85.3 L ABG Sodium ABG Chloride 109.0 H ABG Glucose 170 H 150 H Oxyhemoglobin Carboxyhemoglobin 0 L 0.3 L Sodium Potassium Chloride Carbon Dioxide BUN Creatinine Glucose POC Glucose Calcium Magnesium Ferritin AST Lactate Dehydrogenase Total Creatine Kinase Troponin T C-Reactive Protein Total Protein Albumin Triglycerides HDL Cholesterol Arterial Blood Glucose 170 H 150 H Arterial Blood Ionized Calcium Urine WBC (Auto) 9.0 H Vancomycin Trough Salicylates Acetaminophen Coronavirus (PCR) 07/19/21 07/19/21 07/19/21 04:59 04:59 Unknown WBC RBC Hgb Hct RDW 16.0 H Lymph % (Auto) 10.7 L Lymph # (Auto) 1.1 L Seg Neutrophils % 84.3 H Seg Neuts % (Manual) Lymphocytes % (Manual) Nucleated RBC % Seg Neutrophils # 8.7 H Seg Neutrophils # Man Lymphocytes # (Manual) Monocytes # (Manual) PT D-Dimer ABG pH POC ABG pCO2 POC ABG pO2 ABG pO2 ABG O2 Saturation ABG Base Excess ABG Hemoglobin ABG Oxyhemoglobin ABG Sodium ABG Chloride ABG Glucose Oxyhemoglobin Carboxyhemoglobin Sodium Potassium Chloride 108.8 H Carbon Dioxide 21 L BUN 28 H Creatinine 1.8 H Glucose 145 H POC Glucose Calcium 7.8 L Magnesium Ferritin AST Lactate Dehydrogenase Total Creatine Kinase Troponin T C-Reactive Protein Total Protein 6.2 L Albumin 3.2 L Triglycerides HDL Cholesterol Arterial Blood Glucose Arterial Blood Ionized Calcium Urine WBC (Auto) Vancomycin Trough Salicylates Acetaminophen Coronavirus (PCR) Positive A 07/19/21 07/20/21 07/20/21 Unknown 00:14 04:44 WBC RBC Hgb Hct RDW Lymph % (Auto) Lymph # (Auto) Seg Neutrophils % Seg Neuts % (Manual) Lymphocytes % (Manual) Nucleated RBC % Seg Neutrophils # Seg Neutrophils # Man Lymphocytes # (Manual) Monocytes # (Manual) PT D-Dimer ABG pH POC ABG pCO2 POC ABG pO2 ABG pO2 64.2 L ABG O2 Saturation 93.2 L ABG Base Excess -4.5 L ABG Hemoglobin 11.0 L ABG Oxyhemoglobin ABG Sodium ABG Chloride ABG Glucose Oxyhemoglobin 91.9 L Carboxyhemoglobin Sodium Potassium Chloride 112.2 H Carbon Dioxide BUN 38 H Creatinine 1.3 H Glucose 156 H POC Glucose 164 H Calcium 8.1 L Magnesium 3.10 H Ferritin AST Lactate Dehydrogenase Total Creatine Kinase Troponin T C-Reactive Protein Total Protein Albumin 2.8 L Triglycerides HDL Cholesterol Arterial Blood Glucose Arterial Blood Ionized Calcium Urine WBC (Auto) Vancomycin Trough Salicylates Acetaminophen Coronavirus (PCR) 07/20/21 07/20/21 07/20/21 04:44 05:00 05:40 WBC RBC 3.42 L Hgb 9.7 L Hct 29.3 L RDW 16.1 H Lymph % (Auto) Lymph # (Auto) Seg Neutrophils % Seg Neuts % (Manual) Lymphocytes % (Manual) Nucleated RBC % Seg Neutrophils # Seg Neutrophils # Man Lymphocytes # (Manual) Monocytes # (Manual) PT D-Dimer ABG pH POC ABG pCO2 POC ABG pO2 139.0 H ABG pO2 ABG O2 Saturation ABG Base Excess ABG Hemoglobin 10.1 L ABG Oxyhemoglobin ABG Sodium ABG Chloride 113.0 H ABG Glucose 155 H Oxyhemoglobin Carboxyhemoglobin 0.3 L Sodium Potassium Chloride Carbon Dioxide BUN Creatinine Glucose POC Glucose 164 H Calcium Magnesium Ferritin AST Lactate Dehydrogenase Total Creatine Kinase Troponin T C-Reactive Protein Total Protein Albumin Triglycerides HDL Cholesterol Arterial Blood Glucose 155 H Arterial Blood Ionized Calcium 4.4 L Urine WBC (Auto) Vancomycin Trough Salicylates Acetaminophen Coronavirus (PCR) 07/20/21 07/20/21 07/21/21 11:40 17:48 03:31 WBC RBC Hgb Hct RDW Lymph % (Auto) Lymph # (Auto) Seg Neutrophils % Seg Neuts % (Manual) Lymphocytes % (Manual) Nucleated RBC % Seg Neutrophils # Seg Neutrophils # Man Lymphocytes # (Manual) Monocytes # (Manual) PT D-Dimer ABG pH POC ABG pCO2 POC ABG pO2 ABG pO2 ABG O2 Saturation ABG Base Excess ABG Hemoglobin ABG Oxyhemoglobin ABG Sodium ABG Chloride ABG Glucose Oxyhemoglobin Carboxyhemoglobin Sodium Potassium Chloride Carbon Dioxide BUN Creatinine Glucose POC Glucose 137 H 143 H 157 H Calcium Magnesium Ferritin AST Lactate Dehydrogenase Total Creatine Kinase Troponin T C-Reactive Protein Total Protein Albumin Triglycerides HDL Cholesterol Arterial Blood Glucose Arterial Blood Ionized Calcium Urine WBC (Auto) Vancomycin Trough Salicylates Acetaminophen Coronavirus (PCR) 07/21/21 07/21/21 07/21/21 04:30 04:52 05:21 WBC RBC Hgb Hct RDW Lymph % (Auto) Lymph # (Auto) Seg Neutrophils % Seg Neuts % (Manual) Lymphocytes % (Manual) Nucleated RBC % Seg Neutrophils # Seg Neutrophils # Man Lymphocytes # (Manual) Monocytes # (Manual) PT D-Dimer ABG pH POC ABG pCO2 31.7 L POC ABG pO2 77.6 L ABG pO2 ABG O2 Saturation ABG Base Excess ABG Hemoglobin 10.2 L ABG Oxyhemoglobin ABG Sodium 148.3 H ABG Chloride 120.0 H ABG Glucose 168 H Oxyhemoglobin Carboxyhemoglobin 0.2 L Sodium 150 H Potassium Chloride 115.7 H Carbon Dioxide BUN 49 H Creatinine 1.4 H Glucose 185 H POC Glucose 170 H Calcium 8.3 L Magnesium Ferritin AST Lactate Dehydrogenase Total Creatine Kinase Troponin T C-Reactive Protein Total Protein Albumin 3.0 L Triglycerides HDL Cholesterol Arterial Blood Glucose 168 H Arterial Blood Ionized Calcium 4.4 L Urine WBC (Auto) Vancomycin Trough Salicylates Acetaminophen Coronavirus (PCR) 07/21/21 07/21/21 07/21/21 11:17 17:26 23:40 WBC RBC Hgb Hct RDW Lymph % (Auto) Lymph # (Auto) Seg Neutrophils % Seg Neuts % (Manual) Lymphocytes % (Manual) Nucleated RBC % Seg Neutrophils # Seg Neutrophils # Man Lymphocytes # (Manual) Monocytes # (Manual) PT D-Dimer ABG pH POC ABG pCO2 POC ABG pO2 ABG pO2 ABG O2 Saturation ABG Base Excess ABG Hemoglobin ABG Oxyhemoglobin ABG Sodium ABG Chloride ABG Glucose Oxyhemoglobin Carboxyhemoglobin Sodium Potassium Chloride Carbon Dioxide BUN Creatinine Glucose POC Glucose 176 H 184 H 161 H Calcium Magnesium Ferritin AST Lactate Dehydrogenase Total Creatine Kinase Troponin T C-Reactive Protein Total Protein Albumin Triglycerides HDL Cholesterol Arterial Blood Glucose Arterial Blood Ionized Calcium Urine WBC (Auto) Vancomycin Trough Salicylates Acetaminophen Coronavirus (PCR) 07/22/21 07/22/21 07/22/21 03:30 04:39 05:29 WBC RBC Hgb Hct RDW Lymph % (Auto) Lymph # (Auto) Seg Neutrophils % Seg Neuts % (Manual) Lymphocytes % (Manual) Nucleated RBC % Seg Neutrophils # Seg Neutrophils # Man Lymphocytes # (Manual) Monocytes # (Manual) PT D-Dimer ABG pH POC ABG pCO2 POC ABG pO2 67.4 L ABG pO2 ABG O2 Saturation ABG Base Excess ABG Hemoglobin 10.4 L ABG Oxyhemoglobin 91.8 L ABG Sodium 118.4 L ABG Chloride 114.0 H ABG Glucose 189 H Oxyhemoglobin Carboxyhemoglobin 0.2 L Sodium 146 H Potassium Chloride 112.8 H Carbon Dioxide 21 L BUN 46 H Creatinine Glucose 191 H POC Glucose 191 H Calcium Magnesium Ferritin AST Lactate Dehydrogenase Total Creatine Kinase Troponin T C-Reactive Protein Total Protein Albumin 2.9 L Triglycerides HDL Cholesterol Arterial Blood Glucose 189 H Arterial Blood Ionized Calcium 4.5 L Urine WBC (Auto) Vancomycin Trough Salicylates Acetaminophen Coronavirus (PCR) 07/22/21 07/22/21 07/22/21 12:17 17:54 23:34 WBC RBC Hgb Hct RDW Lymph % (Auto) Lymph # (Auto) Seg Neutrophils % Seg Neuts % (Manual) Lymphocytes % (Manual) Nucleated RBC % Seg Neutrophils # Seg Neutrophils # Man Lymphocytes # (Manual) Monocytes # (Manual) PT D-Dimer ABG pH POC ABG pCO2 POC ABG pO2 ABG pO2 ABG O2 Saturation ABG Base Excess ABG Hemoglobin ABG Oxyhemoglobin ABG Sodium ABG Chloride ABG Glucose Oxyhemoglobin Carboxyhemoglobin Sodium Potassium Chloride Carbon Dioxide BUN Creatinine Glucose POC Glucose 206 H 213 H 164 H Calcium Magnesium Ferritin AST Lactate Dehydrogenase Total Creatine Kinase Troponin T C-Reactive Protein Total Protein Albumin Triglycerides HDL Cholesterol Arterial Blood Glucose Arterial Blood Ionized Calcium Urine WBC (Auto) Vancomycin Trough Salicylates Acetaminophen Coronavirus (PCR) 07/23/21 07/23/21 07/23/21 03:30 05:21 09:02 WBC RBC Hgb Hct RDW Lymph % (Auto) Lymph # (Auto) Seg Neutrophils % Seg Neuts % (Manual) Lymphocytes % (Manual) Nucleated RBC % Seg Neutrophils # Seg Neutrophils # Man Lymphocytes # (Manual) Monocytes # (Manual) PT D-Dimer ABG pH POC ABG pCO2 POC ABG pO2 70.9 L ABG pO2 ABG O2 Saturation ABG Base Excess ABG Hemoglobin 10.9 L ABG Oxyhemoglobin 92.9 L ABG Sodium 130.2 L ABG Chloride 109.0 H ABG Glucose 177 H Oxyhemoglobin Carboxyhemoglobin 0.1 L Sodium Potassium 5.1 H Chloride Carbon Dioxide BUN 32 H Creatinine Glucose 200 H POC Glucose 191 H Calcium Magnesium Ferritin AST Lactate Dehydrogenase Total Creatine Kinase Troponin T C-Reactive Protein Total Protein Albumin Triglycerides HDL Cholesterol Arterial Blood Glucose 177 H Arterial Blood Ionized Calcium 4.3 L Urine WBC (Auto) Vancomycin Trough Salicylates Acetaminophen Coronavirus (PCR) 07/23/21 07/23/21 07/23/21 09:02 11:34 17:52 WBC 13.8 H RBC Hgb Hct RDW 15.7 H Lymph % (Auto) Lymph # (Auto) Seg Neutrophils % Seg Neuts % (Manual) Lymphocytes % (Manual) Nucleated RBC % Seg Neutrophils # Seg Neutrophils # Man Lymphocytes # (Manual) Monocytes # (Manual) PT D-Dimer ABG pH POC ABG pCO2 POC ABG pO2 ABG pO2 ABG O2 Saturation ABG Base Excess ABG Hemoglobin ABG Oxyhemoglobin ABG Sodium ABG Chloride ABG Glucose Oxyhemoglobin Carboxyhemoglobin Sodium Potassium Chloride Carbon Dioxide BUN Creatinine Glucose POC Glucose 208 H 158 H Calcium Magnesium Ferritin AST Lactate Dehydrogenase Total Creatine Kinase Troponin T C-Reactive Protein Total Protein Albumin Triglycerides HDL Cholesterol Arterial Blood Glucose Arterial Blood Ionized Calcium Urine WBC (Auto) Vancomycin Trough Salicylates Acetaminophen Coronavirus (PCR) 07/23/21 07/24/21 07/24/21 23:28 03:06 05:01 WBC RBC Hgb Hct RDW Lymph % (Auto) Lymph # (Auto) Seg Neutrophils % Seg Neuts % (Manual) Lymphocytes % (Manual) Nucleated RBC % Seg Neutrophils # Seg Neutrophils # Man Lymphocytes # (Manual) Monocytes # (Manual) PT D-Dimer ABG pH POC ABG pCO2 POC ABG pO2 51.1 L ABG pO2 ABG O2 Saturation ABG Base Excess ABG Hemoglobin ABG Oxyhemoglobin 85.0 L ABG Sodium 135.5 L ABG Chloride ABG Glucose 131 H Oxyhemoglobin Carboxyhemoglobin 0.4 L Sodium Potassium Chloride Carbon Dioxide BUN 29 H Creatinine Glucose 132 H POC Glucose 142 H Calcium 7.8 L Magnesium Ferritin AST Lactate Dehydrogenase Total Creatine Kinase Troponin T C-Reactive Protein Total Protein Albumin Triglycerides HDL Cholesterol Arterial Blood Glucose 131 H Arterial Blood Ionized Calcium 4.5 L Urine WBC (Auto) Vancomycin Trough Salicylates Acetaminophen Coronavirus (PCR) 07/24/21 07/24/21 07/24/21 05:06 11:38 17:26 WBC RBC Hgb Hct RDW Lymph % (Auto) Lymph # (Auto) Seg Neutrophils % Seg Neuts % (Manual) Lymphocytes % (Manual) Nucleated RBC % Seg Neutrophils # Seg Neutrophils # Man Lymphocytes # (Manual) Monocytes # (Manual) PT D-Dimer ABG pH POC ABG pCO2 POC ABG pO2 ABG pO2 ABG O2 Saturation ABG Base Excess ABG Hemoglobin ABG Oxyhemoglobin ABG Sodium ABG Chloride ABG Glucose Oxyhemoglobin Carboxyhemoglobin Sodium Potassium Chloride Carbon Dioxide BUN Creatinine Glucose POC Glucose 125 H 215 H 173 H Calcium Magnesium Ferritin AST Lactate Dehydrogenase Total Creatine Kinase Troponin T C-Reactive Protein Total Protein Albumin Triglycerides HDL Cholesterol Arterial Blood Glucose Arterial Blood Ionized Calcium Urine WBC (Auto) Vancomycin Trough Salicylates Acetaminophen Coronavirus (PCR) 07/24/21 07/25/21 07/25/21 23:23 03:33 04:28 WBC RBC Hgb Hct RDW Lymph % (Auto) Lymph # (Auto) Seg Neutrophils % Seg Neuts % (Manual) Lymphocytes % (Manual) Nucleated RBC % Seg Neutrophils # Seg Neutrophils # Man Lymphocytes # (Manual) Monocytes # (Manual) PT D-Dimer ABG pH POC ABG pCO2 POC ABG pO2 ABG pO2 ABG O2 Saturation ABG Base Excess ABG Hemoglobin ABG Oxyhemoglobin ABG Sodium 135.6 L ABG Chloride ABG Glucose 174 H Oxyhemoglobin Carboxyhemoglobin 0.1 L Sodium Potassium 5.1 H Chloride 107.7 H Carbon Dioxide BUN 29 H Creatinine Glucose 164 H POC Glucose 133 H Calcium 7.3 L Magnesium Ferritin AST Lactate Dehydrogenase Total Creatine Kinase Troponin T C-Reactive Protein Total Protein Albumin Triglycerides HDL Cholesterol Arterial Blood Glucose 174 H Arterial Blood Ionized Calcium Urine WBC (Auto) Vancomycin Trough Salicylates Acetaminophen Coronavirus (PCR) 07/25/21 07/25/21 07/25/21 04:28 04:28 05:17 WBC 14.9 H RBC Hgb Hct RDW 15.6 H Lymph % (Auto) Lymph # (Auto) Seg Neutrophils % Seg Neuts % (Manual) 92.0 H Lymphocytes % (Manual) 2.0 L Nucleated RBC % Seg Neutrophils # Seg Neutrophils # Man 13.7 H Lymphocytes # (Manual) 0.3 L Monocytes # (Manual) PT D-Dimer ABG pH POC ABG pCO2 POC ABG pO2 ABG pO2 ABG O2 Saturation ABG Base Excess ABG Hemoglobin ABG Oxyhemoglobin ABG Sodium ABG Chloride ABG Glucose Oxyhemoglobin Carboxyhemoglobin Sodium Potassium Chloride Carbon Dioxide BUN Creatinine Glucose POC Glucose 173 H Calcium Magnesium Ferritin AST Lactate Dehydrogenase Total Creatine Kinase Troponin T C-Reactive Protein Total Protein Albumin Triglycerides HDL Cholesterol Arterial Blood Glucose Arterial Blood Ionized Calcium Urine WBC (Auto) Vancomycin Trough 22.9 H Salicylates Acetaminophen Coronavirus (PCR) 07/25/21 07/25/21 07/25/21 11:29 17:00 23:46 WBC RBC Hgb Hct RDW Lymph % (Auto) Lymph # (Auto) Seg Neutrophils % Seg Neuts % (Manual) Lymphocytes % (Manual) Nucleated RBC % Seg Neutrophils # Seg Neutrophils # Man Lymphocytes # (Manual) Monocytes # (Manual) PT D-Dimer ABG pH POC ABG pCO2 POC ABG pO2 ABG pO2 ABG O2 Saturation ABG Base Excess ABG Hemoglobin ABG Oxyhemoglobin ABG Sodium ABG Chloride ABG Glucose Oxyhemoglobin Carboxyhemoglobin Sodium Potassium Chloride Carbon Dioxide BUN Creatinine Glucose POC Glucose 191 H 184 H 192 H Calcium Magnesium Ferritin AST Lactate Dehydrogenase Total Creatine Kinase Troponin T C-Reactive Protein Total Protein Albumin Triglycerides HDL Cholesterol Arterial Blood Glucose Arterial Blood Ionized Calcium Urine WBC (Auto) Vancomycin Trough Salicylates Acetaminophen Coronavirus (PCR) 07/26/21 07/26/21 07/26/21 03:17 05:33 06:07 WBC 18.0 H RBC Hgb Hct RDW 15.6 H Lymph % (Auto) Lymph # (Auto) Seg Neutrophils % Seg Neuts % (Manual) 87.0 H Lymphocytes % (Manual) 5.0 L Nucleated RBC % Seg Neutrophils # Seg Neutrophils # Man 15.7 H Lymphocytes # (Manual) 0.9 L Monocytes # (Manual) 1.1 H PT D-Dimer ABG pH POC ABG pCO2 POC ABG pO2 73.7 L ABG pO2 ABG O2 Saturation ABG Base Excess ABG Hemoglobin 11.8 L ABG Oxyhemoglobin 93.6 L ABG Sodium ABG Chloride ABG Glucose 183 H Oxyhemoglobin Carboxyhemoglobin 0.2 L Sodium Potassium Chloride Carbon Dioxide BUN Creatinine Glucose POC Glucose 172 H Calcium Magnesium Ferritin AST Lactate Dehydrogenase Total Creatine Kinase Troponin T C-Reactive Protein Total Protein Albumin Triglycerides HDL Cholesterol Arterial Blood Glucose 183 H Arterial Blood Ionized Calcium Urine WBC (Auto) Vancomycin Trough Salicylates Acetaminophen Coronavirus (PCR) 07/26/21 07/26/21 07/26/21 06:07 11:46 13:53 WBC RBC Hgb Hct RDW Lymph % (Auto) Lymph # (Auto) Seg Neutrophils % Seg Neuts % (Manual) Lymphocytes % (Manual) Nucleated RBC % Seg Neutrophils # Seg Neutrophils # Man Lymphocytes # (Manual) Monocytes # (Manual) PT D-Dimer 6992.45 H ABG pH POC ABG pCO2 POC ABG pO2 ABG pO2 ABG O2 Saturation ABG Base Excess ABG Hemoglobin ABG Oxyhemoglobin ABG Sodium ABG Chloride ABG Glucose Oxyhemoglobin Carboxyhemoglobin Sodium Potassium 5.4 H Chloride Carbon Dioxide BUN 33 H Creatinine Glucose 155 H POC Glucose 142 H Calcium 8.3 L Magnesium Ferritin AST Lactate Dehydrogenase Total Creatine Kinase Troponin T C-Reactive Protein Total Protein Albumin Triglycerides HDL Cholesterol Arterial Blood Glucose Arterial Blood Ionized Calcium Urine WBC (Auto) Vancomycin Trough Salicylates Acetaminophen Coronavirus (PCR) 07/26/21 07/26/21 07/26/21 13:53 14:16 17:29 WBC RBC Hgb Hct RDW Lymph % (Auto) Lymph # (Auto) Seg Neutrophils % Seg Neuts % (Manual) Lymphocytes % (Manual) Nucleated RBC % Seg Neutrophils # Seg Neutrophils # Man Lymphocytes # (Manual) Monocytes # (Manual) PT D-Dimer ABG pH POC ABG pCO2 POC ABG pO2 ABG pO2 ABG O2 Saturation ABG Base Excess ABG Hemoglobin ABG Oxyhemoglobin ABG Sodium ABG Chloride ABG Glucose Oxyhemoglobin Carboxyhemoglobin Sodium Potassium Chloride Carbon Dioxide BUN Creatinine Glucose 200 H POC Glucose 185 H Calcium Magnesium Ferritin 348.4 H AST Lactate Dehydrogenase 515 H Total Creatine Kinase Troponin T C-Reactive Protein Total Protein Albumin Triglycerides HDL Cholesterol Arterial Blood Glucose Arterial Blood Ionized Calcium Urine WBC (Auto) Vancomycin Trough Salicylates Acetaminophen Coronavirus (PCR) 07/26/21 07/27/21 07/27/21 23:30 04:00 04:48 WBC 16.5 H RBC Hgb Hct RDW Lymph % (Auto) Lymph # (Auto) Seg Neutrophils % Seg Neuts % (Manual) 92.0 H Lymphocytes % (Manual) 3.0 L Nucleated RBC % 1.0 H Seg Neutrophils # Seg Neutrophils # Man 15.2 H Lymphocytes # (Manual) 0.5 L Monocytes # (Manual) PT D-Dimer ABG pH 7.481 H POC ABG pCO2 POC ABG pO2 70.4 L ABG pO2 ABG O2 Saturation ABG Base Excess ABG Hemoglobin 11.6 L ABG Oxyhemoglobin ABG Sodium 131.9 L ABG Chloride ABG Glucose 207 H Oxyhemoglobin Carboxyhemoglobin Sodium Potassium Chloride Carbon Dioxide BUN Creatinine Glucose POC Glucose 186 H Calcium Magnesium Ferritin AST Lactate Dehydrogenase Total Creatine Kinase Troponin T C-Reactive Protein Total Protein Albumin Triglycerides HDL Cholesterol Arterial Blood Glucose 207 H Arterial Blood Ionized Calcium Urine WBC (Auto) Vancomycin Trough Salicylates Acetaminophen Coronavirus (PCR) 07/27/21 07/27/21 07/27/21 04:48 05:04 11:36 WBC RBC Hgb Hct RDW Lymph % (Auto) Lymph # (Auto) Seg Neutrophils % Seg Neuts % (Manual) Lymphocytes % (Manual) Nucleated RBC % Seg Neutrophils # Seg Neutrophils # Man Lymphocytes # (Manual) Monocytes # (Manual) PT D-Dimer ABG pH POC ABG pCO2 POC ABG pO2 ABG pO2 ABG O2 Saturation ABG Base Excess ABG Hemoglobin ABG Oxyhemoglobin ABG Sodium ABG Chloride ABG Glucose Oxyhemoglobin Carboxyhemoglobin Sodium Potassium Chloride Carbon Dioxide BUN 35 H Creatinine Glucose 216 H POC Glucose 201 H 142 H Calcium Magnesium Ferritin AST Lactate Dehydrogenase Total Creatine Kinase Troponin T C-Reactive Protein Total Protein Albumin Triglycerides HDL Cholesterol Arterial Blood Glucose Arterial Blood Ionized Calcium Urine WBC (Auto) Vancomycin Trough Salicylates Acetaminophen Coronavirus (PCR) 07/27/21 07/27/21 07/28/21 18:14 22:03 04:00 WBC RBC Hgb Hct RDW Lymph % (Auto) Lymph # (Auto) Seg Neutrophils % Seg Neuts % (Manual) Lymphocytes % (Manual) Nucleated RBC % Seg Neutrophils # Seg Neutrophils # Man Lymphocytes # (Manual) Monocytes # (Manual) PT D-Dimer ABG pH 7.491 H POC ABG pCO2 POC ABG pO2 109.2 H ABG pO2 ABG O2 Saturation ABG Base Excess ABG Hemoglobin ABG Oxyhemoglobin ABG Sodium 133.9 L ABG Chloride ABG Glucose 163 H Oxyhemoglobin Carboxyhemoglobin Sodium Potassium Chloride Carbon Dioxide BUN Creatinine Glucose POC Glucose 166 H 149 H Calcium Magnesium Ferritin AST Lactate Dehydrogenase Total Creatine Kinase Troponin T C-Reactive Protein Total Protein Albumin Triglycerides HDL Cholesterol Arterial Blood Glucose 163 H Arterial Blood Ionized Calcium Urine WBC (Auto) Vancomycin Trough Salicylates Acetaminophen Coronavirus (PCR) 07/28/21 07/28/21 07/28/21 04:10 04:10 04:10 WBC RBC Hgb Hct RDW Lymph % (Auto) Lymph # (Auto) Seg Neutrophils % Seg Neuts % (Manual) Lymphocytes % (Manual) Nucleated RBC % Seg Neutrophils # Seg Neutrophils # Man Lymphocytes # (Manual) Monocytes # (Manual) PT D-Dimer 5318.85 H ABG pH POC ABG pCO2 POC ABG pO2 ABG pO2 ABG O2 Saturation ABG Base Excess ABG Hemoglobin ABG Oxyhemoglobin ABG Sodium ABG Chloride ABG Glucose Oxyhemoglobin Carboxyhemoglobin Sodium Potassium Chloride Carbon Dioxide 31 H BUN 35 H Creatinine Glucose 187 H POC Glucose Calcium Magnesium Ferritin 324.6 H AST Lactate Dehydrogenase 414 H Total Creatine Kinase Troponin T C-Reactive Protein Total Protein Albumin Triglycerides HDL Cholesterol Arterial Blood Glucose Arterial Blood Ionized Calcium Urine WBC (Auto) Vancomycin Trough Salicylates Acetaminophen Coronavirus (PCR) 07/28/21 07/28/21 07/28/21 04:10 05:25 12:10 WBC 13.7 H RBC Hgb Hct RDW Lymph % (Auto) Lymph # (Auto) Seg Neutrophils % Seg Neuts % (Manual) Lymphocytes % (Manual) Nucleated RBC % Seg Neutrophils # Seg Neutrophils # Man Lymphocytes # (Manual) Monocytes # (Manual) PT D-Dimer ABG pH POC ABG pCO2 POC ABG pO2 ABG pO2 ABG O2 Saturation ABG Base Excess ABG Hemoglobin ABG Oxyhemoglobin ABG Sodium ABG Chloride ABG Glucose Oxyhemoglobin Carboxyhemoglobin Sodium Potassium Chloride Carbon Dioxide BUN Creatinine Glucose POC Glucose 152 H 162 H Calcium Magnesium Ferritin AST Lactate Dehydrogenase Total Creatine Kinase Troponin T C-Reactive Protein Total Protein Albumin Triglycerides HDL Cholesterol Arterial Blood Glucose Arterial Blood Ionized Calcium Urine WBC (Auto) Vancomycin Trough Salicylates Acetaminophen Coronavirus (PCR) 07/28/21 07/28/21 07/29/21 17:44 21:58 04:00 WBC RBC Hgb Hct RDW Lymph % (Auto) Lymph # (Auto) Seg Neutrophils % Seg Neuts % (Manual) Lymphocytes % (Manual) Nucleated RBC % Seg Neutrophils # Seg Neutrophils # Man Lymphocytes # (Manual) Monocytes # (Manual) PT D-Dimer ABG pH 7.510 H POC ABG pCO2 POC ABG pO2 113.0 H ABG pO2 ABG O2 Saturation ABG Base Excess ABG Hemoglobin 11.1 L ABG Oxyhemoglobin ABG Sodium 135.0 L ABG Chloride ABG Glucose 162 H Oxyhemoglobin Carboxyhemoglobin 0.3 L Sodium Potassium Chloride Carbon Dioxide BUN Creatinine Glucose POC Glucose 152 H 139 H Calcium Magnesium Ferritin AST Lactate Dehydrogenase Total Creatine Kinase Troponin T C-Reactive Protein Total Protein Albumin Triglycerides HDL Cholesterol Arterial Blood Glucose 162 H Arterial Blood Ionized Calcium 4.4 L Urine WBC (Auto) Vancomycin Trough Salicylates Acetaminophen Coronavirus (PCR) 07/29/21 07/29/21 07/29/21 04:35 04:35 05:47 WBC 12.0 H RBC Hgb Hct RDW Lymph % (Auto) Lymph # (Auto) Seg Neutrophils % Seg Neuts % (Manual) Lymphocytes % (Manual) Nucleated RBC % Seg Neutrophils # Seg Neutrophils # Man Lymphocytes # (Manual) Monocytes # (Manual) PT D-Dimer ABG pH POC ABG pCO2 POC ABG pO2 ABG pO2 ABG O2 Saturation ABG Base Excess ABG Hemoglobin ABG Oxyhemoglobin ABG Sodium ABG Chloride ABG Glucose Oxyhemoglobin Carboxyhemoglobin Sodium Potassium Chloride Carbon Dioxide BUN 34 H Creatinine Glucose 170 H POC Glucose 153 H Calcium Magnesium Ferritin AST Lactate Dehydrogenase Total Creatine Kinase Troponin T C-Reactive Protein Total Protein Albumin Triglycerides HDL Cholesterol Arterial Blood Glucose Arterial Blood Ionized Calcium Urine WBC (Auto) Vancomycin Trough Salicylates Acetaminophen Coronavirus (PCR) 07/29/21 07/29/21 07/29/21 11:25 16:29 23:39 WBC RBC Hgb Hct RDW Lymph % (Auto) Lymph # (Auto) Seg Neutrophils % Seg Neuts % (Manual) Lymphocytes % (Manual) Nucleated RBC % Seg Neutrophils # Seg Neutrophils # Man Lymphocytes # (Manual) Monocytes # (Manual) PT D-Dimer ABG pH POC ABG pCO2 POC ABG pO2 ABG pO2 ABG O2 Saturation ABG Base Excess ABG Hemoglobin ABG Oxyhemoglobin ABG Sodium ABG Chloride ABG Glucose Oxyhemoglobin Carboxyhemoglobin Sodium Potassium Chloride Carbon Dioxide BUN Creatinine Glucose POC Glucose 142 H 167 H 141 H Calcium Magnesium Ferritin AST Lactate Dehydrogenase Total Creatine Kinase Troponin T C-Reactive Protein Total Protein Albumin Triglycerides HDL Cholesterol Arterial Blood Glucose Arterial Blood Ionized Calcium Urine WBC (Auto) Vancomycin Trough Salicylates Acetaminophen Coronavirus (PCR) 07/30/21 07/30/21 07/30/21 05:00 05:00 05:00 WBC RBC Hgb Hct RDW Lymph % (Auto) Lymph # (Auto) Seg Neutrophils % Seg Neuts % (Manual) Lymphocytes % (Manual) Nucleated RBC % Seg Neutrophils # Seg Neutrophils # Man Lymphocytes # (Manual) Monocytes # (Manual) PT D-Dimer 1818.72 H ABG pH POC ABG pCO2 POC ABG pO2 ABG pO2 ABG O2 Saturation ABG Base Excess ABG Hemoglobin ABG Oxyhemoglobin ABG Sodium ABG Chloride ABG Glucose Oxyhemoglobin Carboxyhemoglobin Sodium Potassium Chloride Carbon Dioxide BUN 34 H Creatinine Glucose 184 H POC Glucose Calcium Magnesium Ferritin 242.1 H AST Lactate Dehydrogenase 304 H Total Creatine Kinase Troponin T C-Reactive Protein Total Protein Albumin Triglycerides HDL Cholesterol Arterial Blood Glucose Arterial Blood Ionized Calcium Urine WBC (Auto) Vancomycin Trough Salicylates Acetaminophen Coronavirus (PCR) 07/30/21 07/30/21 07/30/21 05:00 06:08 11:41 WBC RBC 3.45 L Hgb 10.0 L Hct 29.9 L RDW Lymph % (Auto) Lymph # (Auto) Seg Neutrophils % Seg Neuts % (Manual) Lymphocytes % (Manual) Nucleated RBC % Seg Neutrophils # Seg Neutrophils # Man Lymphocytes # (Manual) Monocytes # (Manual) PT D-Dimer ABG pH POC ABG pCO2 POC ABG pO2 ABG pO2 ABG O2 Saturation ABG Base Excess ABG Hemoglobin ABG Oxyhemoglobin ABG Sodium ABG Chloride ABG Glucose Oxyhemoglobin Carboxyhemoglobin Sodium Potassium Chloride Carbon Dioxide BUN Creatinine Glucose POC Glucose 171 H 182 H Calcium Magnesium Ferritin AST Lactate Dehydrogenase Total Creatine Kinase Troponin T C-Reactive Protein Total Protein Albumin Triglycerides HDL Cholesterol Arterial Blood Glucose Arterial Blood Ionized Calcium Urine WBC (Auto) Vancomycin Trough Salicylates Acetaminophen Coronavirus (PCR) 07/30/21 07/30/21 07/30/21 17:28 22:22 23:43 WBC RBC Hgb Hct RDW Lymph % (Auto) Lymph # (Auto) Seg Neutrophils % Seg Neuts % (Manual) Lymphocytes % (Manual) Nucleated RBC % Seg Neutrophils # Seg Neutrophils # Man Lymphocytes # (Manual) Monocytes # (Manual) PT D-Dimer ABG pH POC ABG pCO2 POC ABG pO2 ABG pO2 ABG O2 Saturation ABG Base Excess ABG Hemoglobin ABG Oxyhemoglobin ABG Sodium ABG Chloride ABG Glucose Oxyhemoglobin Carboxyhemoglobin Sodium Potassium Chloride Carbon Dioxide BUN Creatinine Glucose POC Glucose 176 H 150 H 161 H Calcium Magnesium Ferritin AST Lactate Dehydrogenase Total Creatine Kinase Troponin T C-Reactive Protein Total Protein Albumin Triglycerides HDL Cholesterol Arterial Blood Glucose Arterial Blood Ionized Calcium Urine WBC (Auto) Vancomycin Trough Salicylates Acetaminophen Coronavirus (PCR) 07/31/21 07/31/21 07/31/21 04:00 05:25 05:50 WBC 11.5 H RBC Hgb Hct RDW Lymph % (Auto) Lymph # (Auto) Seg Neutrophils % Seg Neuts % (Manual) Lymphocytes % (Manual) Nucleated RBC % Seg Neutrophils # Seg Neutrophils # Man Lymphocytes # (Manual) Monocytes # (Manual) PT D-Dimer ABG pH POC ABG pCO2 POC ABG pO2 ABG pO2 ABG O2 Saturation ABG Base Excess ABG Hemoglobin 11.5 L ABG Oxyhemoglobin ABG Sodium ABG Chloride ABG Glucose 143 H Oxyhemoglobin Carboxyhemoglobin Sodium Potassium Chloride Carbon Dioxide BUN Creatinine Glucose POC Glucose 150 H Calcium Magnesium Ferritin AST Lactate Dehydrogenase Total Creatine Kinase Troponin T C-Reactive Protein Total Protein Albumin Triglycerides HDL Cholesterol Arterial Blood Glucose 143 H Arterial Blood Ionized Calcium Urine WBC (Auto) Vancomycin Trough Salicylates Acetaminophen Coronavirus (PCR) 07/31/21 07/31/21 07/31/21 05:50 11:36 17:30 WBC RBC Hgb Hct RDW Lymph % (Auto) Lymph # (Auto) Seg Neutrophils % Seg Neuts % (Manual) Lymphocytes % (Manual) Nucleated RBC % Seg Neutrophils # Seg Neutrophils # Man Lymphocytes # (Manual) Monocytes # (Manual) PT D-Dimer ABG pH POC ABG pCO2 POC ABG pO2 ABG pO2 ABG O2 Saturation ABG Base Excess ABG Hemoglobin ABG Oxyhemoglobin ABG Sodium ABG Chloride ABG Glucose Oxyhemoglobin Carboxyhemoglobin Sodium Potassium Chloride Carbon Dioxide BUN 32 H Creatinine Glucose 158 H POC Glucose 179 H 115 H Calcium Magnesium Ferritin AST Lactate Dehydrogenase Total Creatine Kinase Troponin T C-Reactive Protein Total Protein Albumin Triglycerides HDL Cholesterol Arterial Blood Glucose Arterial Blood Ionized Calcium Urine WBC (Auto) Vancomycin Trough Salicylates Acetaminophen Coronavirus (PCR) 07/31/21 08/01/21 08/01/21 22:36 04:00 04:58 WBC RBC Hgb Hct RDW Lymph % (Auto) Lymph # (Auto) Seg Neutrophils % Seg Neuts % (Manual) Lymphocytes % (Manual) Nucleated RBC % Seg Neutrophils # Seg Neutrophils # Man Lymphocytes # (Manual) Monocytes # (Manual) PT D-Dimer ABG pH 7.477 H POC ABG pCO2 POC ABG pO2 ABG pO2 ABG O2 Saturation ABG Base Excess ABG Hemoglobin 11.4 L ABG Oxyhemoglobin ABG Sodium 134.4 L ABG Chloride ABG Glucose 173 H Oxyhemoglobin Carboxyhemoglobin 0.3 L Sodium Potassium Chloride Carbon Dioxide BUN Creatinine Glucose POC Glucose 150 H 153 H Calcium Magnesium Ferritin AST Lactate Dehydrogenase Total Creatine Kinase Troponin T C-Reactive Protein Total Protein Albumin Triglycerides HDL Cholesterol Arterial Blood Glucose 173 H Arterial Blood Ionized Calcium Urine WBC (Auto) Vancomycin Trough Salicylates Acetaminophen Coronavirus (PCR) 08/01/21 08/01/21 06:00 06:00 WBC RBC Hgb Hct RDW Lymph % (Auto) Lymph # (Auto) Seg Neutrophils % Seg Neuts % (Manual) Lymphocytes % (Manual) Nucleated RBC % Seg Neutrophils # Seg Neutrophils # Man Lymphocytes # (Manual) Monocytes # (Manual) PT D-Dimer ABG pH POC ABG pCO2 POC ABG pO2 ABG pO2 ABG O2 Saturation ABG Base Excess ABG Hemoglobin ABG Oxyhemoglobin ABG Sodium ABG Chloride ABG Glucose Oxyhemoglobin Carboxyhemoglobin Sodium 136 L Potassium Chloride Carbon Dioxide 31 H BUN 28 H Creatinine 0.5 L Glucose 154 H POC Glucose Calcium Magnesium Ferritin 244.0 H AST Lactate Dehydrogenase 369 H Total Creatine Kinase Troponin T C-Reactive Protein Total Protein Albumin Triglycerides HDL Cholesterol Arterial Blood Glucose Arterial Blood Ionized Calcium Urine WBC (Auto) Vancomycin Trough Salicylates Acetaminophen Coronavirus (PCR)
[2021-08-01] MEDS ORDERED: LORazepam 2 MG/ML VIAL IV PRN (09:00)
[2021-08-01] MEDS ORDERED: fentaNYL 100 MCG/2 ML INJ IV PRN (09:00)
[2021-08-01] MEDS: ENOXAPARIN 100 MG/1 ML INJ SUB-Q SCH (09:04)
[2021-08-01] MEDS: FAMOTIDINE 20 MG/2 ML INJ IV SCH (09:04)
--- NOTE | 2021-08-01 10:18 | Progress Note ---
Assessment and Plan - Patient Problems (1) Acute respiratory failure due to COVID-19 Current Visit: Yes Status: Acute (2) Multiple pulmonary emboli Current Visit: Yes Status: Acute (3) Suspected COVID-19 virus infection Current Visit: Yes Status: Acute Subjective Date of service: 08/01/21 Principal diagnosis: COVID pneumonia Interval history: no exam / COVID Objective Vital Signs Temp Pulse Pulse Resp BP Pulse Ox 08/01/21 09:30 98 08/01/21 08:25 129 H 200/72 97 08/01/21 07:20 86 192/52 08/01/21 07:11 59 L 99/34 08/01/21 05:31 64 26 H 182/84 100 08/01/21 05:15 61 26 H 182/84 99 08/01/21 05:00 64 26 H 182/84 98 08/01/21 04:45 64 26 H 171/88 98 08/01/21 04:31 63 26 H 171/88 98 08/01/21 04:15 67 173/94 97 08/01/21 04:01 196/104 96 08/01/21 04:00 102 H 102 H 31 H 97 08/01/21 03:45 64 26 H 152/83 98 08/01/21 03:31 88 17 152/83 99 08/01/21 03:26 101 H 168/62 98 08/01/21 03:15 67 26 H 152/83 98 08/01/21 03:12 99.9 F H 08/01/21 03:00 74 26 H 152/83 94 08/01/21 02:45 113 H 13 169/83 97 08/01/21 02:31 117 H 16 169/83 97 08/01/21 02:15 75 15 169/83 97 08/01/21 02:00 78 14 169/83 95 08/01/21 01:45 68 26 H 157/79 96 08/01/21 01:31 71 22 157/79 96 08/01/21 01:15 112 H 16 157/79 98 08/01/21 01:01 59 L 26 H 157/79 98 08/01/21 00:45 52 L 26 H 118/67 97 08/01/21 00:31 55 L 26 H 118/67 97 08/01/21 00:15 62 26 H 118/67 97 08/01/21 00:00 63 56 L 26 H 118/67 95 07/31/21 23:45 63 26 H 125/77 97 07/31/21 23:34 99.5 F 07/31/21 23:31 65 26 H 125/77 98 07/31/21 23:20 68 147/44 98 07/31/21 23:15 64 26 H 125/77 98 07/31/21 23:00 66 26 H 125/77 96 07/31/21 22:45 77 26 H 137/83 97 07/31/21 22:31 67 26 H 137/83 97 07/31/21 22:15 71 25 H 137/83 97 07/31/21 22:01 69 26 H 137/83 95 07/31/21 21:45 69 26 H 138/79 97 07/31/21 21:30 80 26 H 138/79 98 07/31/21 21:15 59 L 26 H 138/79 98 07/31/21 21:00 63 26 H 138/79 95 07/31/21 20:57 58 L 26 H 133/76 97 07/31/21 20:45 59 L 26 H 133/76 97 07/31/21 20:31 60 26 H 133/76 97 07/31/21 20:15 61 26 H 133/76 97 07/31/21 20:01 66 26 H 133/76 95 07/31/21 20:00 93 H 62 34 H 97 07/31/21 19:55 73 143/53 97 07/31/21 19:45 63 26 H 126/72 97 07/31/21 19:32 99.9 F H 07/31/21 19:31 62 26 H 126/72 98 07/31/21 19:15 61 26 H 126/72 97 07/31/21 19:01 65 26 H 126/72 93 07/31/21 18:45 62 26 H 125/71 96 07/31/21 18:31 63 26 H 125/71 96 07/31/21 18:15 62 26 H 125/71 95 07/31/21 18:01 66 26 H 125/71 94 07/31/21 17:45 73 26 H 190/117 94 07/31/21 17:31 101 H 12 190/117 95 07/31/21 17:15 81 16 190/117 96 09/11/21 17:01 97 H 18 190/117 97 07/31/21 16:50 121 H 190/68 97 07/31/21 16:45 121 H 29 H 190/117 95 07/31/21 16:31 110 H 21 190/117 94 07/31/21 16:15 92 H 13 190/117 95 07/31/21 16:01 113 H 24 190/117 93 07/31/21 16:00 99.3 F 73 122 H 34 H 97 07/31/21 15:45 92 H 14 176/92 95 07/31/21 15:31 70 24 176/92 93 07/31/21 15:15 74 25 H 176/92 90 07/31/21 15:01 69 14 143/79 91 07/31/21 14:45 75 15 176/92 94 07/31/21 14:31 89 16 176/92 94 07/31/21 14:15 111 H 18 176/92 93 07/31/21 14:01 103 H 20 176/92 94 07/31/21 13:45 107 H 13 100/57 99 07/31/21 13:31 47 L 26 H 100/57 96 07/31/21 13:15 50 L 26 H 100/57 96 07/31/21 13:00 47 L 26 H 94/55 97 07/31/21 12:45 46 L 26 H 94/55 98 07/31/21 12:31 50 L 26 H 94/55 97 07/31/21 12:15 48 L 26 H 91/53 98 07/31/21 12:00 99 F 53 L 26 H 91/53 96 07/31/21 11:45 53 L 26 H 105/60 98 07/31/21 11:31 53 L 26 H 105/60 97 07/31/21 11:15 55 L 26 H 105/60 97 07/31/21 11:00 60 26 H 105/60 93 07/31/21 10:45 69 24 166/85 96 07/31/21 10:31 68 24 166/85 98 - Physical Examination General: Other (extubated,,exam deferred) Neck: Positive: neck supple Abdomen: Positive: Soft - Labs and Meds Cardiac Enzymes 08/01/21 Range/Units 06:00 Lactate Dehydrogenase 369 H (91-180) units/L CBC 08/01/21 Range/Units 06:00 WBC 10.1 (4.5-11.0) K/mm3 RBC 3.65 (3.65-5.03) M/mm3 Hgb 10.7 (10.1-14.3) gm/dl Hct 31.9 (30.3-42.9) % Plt Count 223 (140-440) K/mm3 Comprehensive Metabolic Panel 08/01/21 Range/Units 06:00 Sodium 136 L (137-145) mmol/L Potassium 4.8 (3.6-5.0) mmol/L Chloride 98.7 (98-107) mmol/L Carbon Dioxide 31 H (22-30) mmol/L BUN 28 H (7-17) mg/dL Creatinine 0.5 L (0.6-1.2) mg/dL Glucose 154 H (65-100) mg/dL Calcium 9.7 (8.4-10.2) mg/dL - Imaging and Cardiology EKG: report reviewed
[2021-08-01] MEDS ORDERED: HALOPERIDOL LACTATE 5 MG/1 ML INJ IV PRN (10:29)
[2021-08-01] MEDS ORDERED: hydrALAZINE 25 MG TAB PO SCH (14:00)
--- NOTE | 2021-08-01 14:31 | Progress Note ---
<CASSIDYKirstyRYANVeronica - Last Filed: 08/01/21 14:24> Assessment and Plan Assessment and plan: This is a 55-year-old female with obesity, diabetes, anxiety, hypertension admitted with severe Covid 19 pneumonia, multiple subsegmental pulmonary embolism, acute kidney injury and sepsis Neuro: Acute metabolic encephalopathy, h/o anxiety -Reorientation as needed -Avoid delirium -Bilateral wrist restraints for safety CV: SRSB, mobile echogenic density on the tricuspid valve apparatus -Cardiology consulted, appreciate recommendations -Cardiology concluded SB likely aggravated by remdesivir -Normal TSH -Recommend repeat echo in 3 months to evaluate mobile port density -Per cardiology: Given clinical picture density most likely represents a thrombus in the second vegetation -Started on hydral->titrate as needed -hypotension with sedation, hypertension without sedation Respiratory: ARDS, acute hypoxic respiratory failure, severe COVID-19 bronchopneumonia -Intubated 07/18 with 7.50 ETT at 21 the lips -Patient was extubated today on 08/01 -CCM consulted, appreciate recommendations -Supplemental oxygen as needed -SPO2 monitoring per protocol GI: Moderate protein calorie malnutrition, obesity -Nutrition consult -BR with Senokot -PPI -24-hour net -728 -RN to complete bedside swallow, ST evaluation if fails. : Acute kidney injury secondary to sepsis/ATN (resolved) -Strict intake and output -Daily weights -Monitor and intervene with electrolytes as needed -Trend BMP Heme: Multiple subsegmental pulmonary embolism, LLE DVT -On Lovenox -Trend CBC -Monitor temperature curve -SCDs to bilateral lower extremities while in bed -Evidenced on CTA chest-> see results -BLE US shows LLE DVT ID: COVID-19 pneumonia, sepsis/septic shock -Infectious disease consulted, appreciate recommendations -COVID-19 PCR positive -Antibiotics with cefepime -S/p remdesivir and Actemra -Solu-Medrol 60 mg every 8->weaning per CCM -Contact/droplet isolation -Prone as tolerated and needed -Pulmonary hygiene -Trend COVID-19 inflammatory markers for risk stratification Endo: Stress hyperglycemia, obesity, h/o DM type II -Avoid hypoglycemia -SSI -Lantus -Accu-Cheks every 6 The high probability of a clinically significant, sudden or life threatening deterioration of the [multi] system(s) required my full and direct attention, intervention and personal management. The aggregate critical care time was [60] minutes. This time is in addition to time spent performing reported procedures but includes the following: [x] Data Review and interpretation [x] Patient assessment and monitoring of vital signs [x] Documentation [x] Medication orders and management Disposition Plan: icu Total Time Spent with Patient (Minutes): 60 History Interval history: This is a 55-year-old female with obesity, diabetes, anxiety, hypertension who presented to the emergency department on 07/18 via EMS for low oxygen saturations on CPAP in the high 60s to 70s. In the emergency department patient had persistently low oxygen levels and was intubated electively. Work-up in the emergency department revealed bilateral pneumonia, multiple segmental bilateral pulmonary emboli, extensive bilateral Covid bronchopneumonia. Patient was admitted to the hospitalist service with consults to [facility] for acute hypoxic respiratory failure, acute encephalopathy, multiple pulmonary embolism ION and as a COVID-19 PUI. 07/18 admit to hospital via ER; being held in ER for ICU bed 07/19 remains in ER intubated and mechanically ventilated; covid pos 07-20 came to ICU overnight from ER; no bradycardic 07/21/2021. Patient remains orally intubated on mechanical ventilation AC mode rate of 26, tidal volume 420, FiO2 90% and PEEP of 16. Continue empiric antibiotics of ceftriaxone and azithromycin for 5 days total. Complete 5 days of remdesivir and continue IV steroids. Patient received Actemra 07/20/2021. Continue therapeutic anticoagulation with Lovenox 100 mg subcu twice daily. Continue sedation of fentanyl and Versed as tolerated. Continue pressors to maintain MAP > 65. Follow-up echocardiogram. 07/22/2021. Patient on mechanical ventilation AC mode rate of 26, FiO2 70% and PEEP of 16. Continue to wean FiO2 as tolerated. Continue antibiotics per ID recommendations. Patient currently with ceftriaxone and azithromycin. Complete 5 days of remdesivir. Continue IV steroids. Patient received Actemra on 07/20/2021. Continue prone positioning as able. Continue to trend inflammatory markers. 07/23/2021. Patient remains on mechanical ventilation AC mode rate of 26, tidal volume 420, FiO2 75% and PEEP of 16. Continue to wean FiO2 as tolerated. Continue antibiotics per ID recommendations. Patient currently with ceftriaxone and azithromycin. Complete 5 days of remdesivir. Continue IV steroids. Patient received Actemra on 07/20/2021. Continue prone positioning as able. Continue to trend inflammatory markers. ID and pulmonary following. 07/24/2021. Patient remains on mechanical ventilation AC mode rate of 26, tidal volume 420, FiO2 70% and PEEP of 16. Patient with possible tricuspid valve vegetation seen on echocardiogram. Consult cardiology for further evaluation. Continue IV antibiotics per ID recommendations. Prone position is possible. Continue to trend inflammatory markers. 07/25/2021. Patient remains on mechanical ventilation AC mode rate of 26, tidal volume 420, FiO2 70% and PEEP of 14. Patient with possible tricuspid valve vegetation seen on echocardiogram. Consult cardiology for further evaluation. Continue IV antibiotics per ID recommendations. Prone position is possible. Continue to trend inflammatory markers. 07/26: MICHAEL, hyperkalemia 07/27: OETT advanced. Remains sedated but able to follow commands. MICHAEL. 07/28: O ETT retracted. MICHAEL overnight. Patient remains sinus bradycardia and hypertensive at times. Remains on Versed and fentanyl. 07/29: Night patient became hypotensive and required a 500 cc bolus. Hydralazine dose change. 07/30: Vent changes made per CCM, patient remains on fentanyl and Versed. Increase in Lantus 07/31: CCM made vent changes, patient is very sensitive to decreases in sedation 08/01: Patient was extubated today by [facility], patient seems to be confused however sedation was just stopped today. Hospitalist Physical - Constitutional Vitals: Temp Pulse Resp BP Pulse Ox 99.0 F 129 H 26 H 200/72 95 08/01/21 12:00 08/01/21 08:25 08/01/21 05:31 08/01/21 08:25 08/01/21 10:21 General appearance: Present: no acute distress, other - EENT Eyes: Present: PERRL ENT: hearing intact, dentition normal - Neck Neck: Present: normal ROM - Respiratory Respiratory effort: normal Respiratory: bilateral: diminished - Cardiovascular Rhythm: regular Heart Sounds: Present: S1 & S2. Absent: systolic murmur, diastolic murmur - Extremities Extremities: no ischemia, pulses intact, pulses symmetrical, No edema, normal temperature, normal color Peripheral Pulses: within normal limits - Abdominal General gastrointestinal: soft, non-tender, non-distended, normal bowel sounds - Integumentary Integumentary: Present: warm, dry - Psychiatric Psychiatric: agitated - Neurologic Neurologic: moves all extremities, other (confused) - Allied Health Allied health notes reviewed: nursing, RT, social work HEART Score - HEART Score Troponin: Troponin T 0.106 ng/mL (0.00-0.029) H* 07/18/21 16:00 Results - Labs CBC & Chem 7: 08/01/21 06:00 08/01/21 06:00 Labs: Laboratory Last Values WBC 10.1 K/mm3 (4.5-11.0) 08/01/21 06:00 RBC 3.65 M/mm3 (3.65-5.03) 08/01/21 06:00 Hgb 10.7 gm/dl (10.1-14.3) 08/01/21 06:00 Hct 31.9 % (30.3-42.9) 08/01/21 06:00 MCV 88 fl (79-97) 08/01/21 06:00 MCH 29 pg (28-32) 08/01/21 06:00 MCHC 34 % (30-34) 08/01/21 06:00 RDW 14.9 % (13.2-15.2) 08/01/21 06:00 Plt Count 223 K/mm3 (140-440) 08/01/21 06:00 Lymph % (Auto) 10.7 % (13.4-35.0) L 07/19/21 04:59 [place] % (Auto) 4.8 % (0.0-7.3) 07/19/21 04:59 Eos % (Auto) 0.1 % (0.0-4.3) 07/19/21 04:59 Baso % (Auto) 0.1 % (0.0-1.8) 07/19/21 04:59 Lymph # (Auto) 1.1 K/mm3 (1.2-5.4) L 07/19/21 04:59 [place] # (Auto) 0.5 K/mm3 (0.0-0.8) 07/19/21 04:59 Eos # (Auto) 0.0 K/mm3 (0.0-0.4) 07/19/21 04:59 Baso # (Auto) 0.0 K/mm3 (0.0-0.1) 07/19/21 04:59 Add Manual Diff Complete 07/27/21 04:48 Total Counted 100 07/27/21 04:48 Seg Neutrophils % Records Officer 07/27/21 04:48 Seg Neuts % (Manual) 92.0 % (40.0-70.0) H 07/27/21 04:48 Band Neutrophils % 1.0 % 07/26/21 06:07 Lymphocytes % (Manual) 3.0 % (13.4-35.0) L 07/27/21 04:48 Monocytes % (Manual) 5.0 % (0.0-7.3) 07/27/21 04:48 Metamyelocytes % 1.0 % 07/26/21 06:07 Myelocytes % 1.0 % 07/25/21 04:28 Nucleated RBC % 1.0 % (0.0-0.9) H 07/27/21 04:48 Seg Neutrophils # 8.7 K/mm3 (1.8-7.7) H 07/19/21 04:59 Seg Neutrophils # Man 15.2 K/mm3 (1.8-7.7) H 07/27/21 04:48 Band Neutrophils # 0.0 K/mm3 07/27/21 04:48 Lymphocytes # (Manual) 0.5 K/mm3 (1.2-5.4) L 07/27/21 04:48 Abs React Lymphs (Man) 0.0 K/mm3 07/27/21 04:48 Monocytes # (Manual) 0.8 K/mm3 (0.0-0.8) 07/27/21 04:48 Eosinophils # (Manual) 0.0 K/mm3 (0.0-0.4) 07/27/21 04:48 Basophils # (Manual) 0.0 K/mm3 (0.0-0.1) 07/27/21 04:48 Metamyelocytes # 0.0 K/mm3 07/27/21 04:48 Myelocytes # 0.0 K/mm3 07/27/21 04:48 Promyelocytes # 0.0 K/mm3 07/27/21 04:48 Blast Cells # 0.0 K/mm3 07/27/21 04:48 WBC Morphology Not Reportable 07/27/21 04:48 Hypersegmented Neuts Not Reportable 07/27/21 04:48 Hyposegmented Neuts Not Reportable 07/27/21 04:48 Hypogranular Neuts Not Reportable 07/27/21 04:48 Smudge Cells Not Reportable 07/27/21 04:48 Toxic Granulation Not Reportable 07/27/21 04:48 Toxic Vacuolation Not Reportable 07/27/21 04:48 Dohle Bodies Not Reportable 07/27/21 04:48 Pelger-Huet Anomaly Not Reportable 07/27/21 04:48 Alonzo Rods Not Reportable 07/27/21 04:48 Platelet Estimate Consistent w auto 07/27/21 04:48 Clumped Platelets Not Reportable 07/27/21 04:48 Plt Clumps, EDTA Not Reportable 07/27/21 04:48 Large Platelets Not Reportable 07/27/21 04:48 Giant Platelets Not Reportable 07/27/21 04:48 Platelet Satelliting Not Reportable 07/27/21 04:48 Plt Morphology Comment Not Reportable 07/27/21 04:48 RBC Morphology Normal 07/27/21 04:48 Dimorphic RBCs Not Reportable 07/27/21 04:48 Polychromasia Not Reportable 07/27/21 04:48 Hypochromasia Not Reportable 07/27/21 04:48 Poikilocytosis Not Reportable 07/27/21 04:48 Anisocytosis Not Reportable 07/27/21 04:48 Microcytosis Not Reportable 07/27/21 04:48 Macrocytosis Not Reportable 07/27/21 04:48 Spherocytes Not Reportable 07/27/21 04:48 Pappenheimer Bodies Not Reportable 07/27/21 04:48 Sickle Cells Not Reportable 07/27/21 04:48 Target Cells Not Reportable 07/27/21 04:48 Tear Drop Cells Not Reportable 07/27/21 04:48 Ovalocytes Not Reportable 07/27/21 04:48 Helmet Cells Not Reportable 07/27/21 04:48 Jacinto-Keyser Bodies Not Reportable 07/27/21 04:48 Walton Rings Not Reportable 07/27/21 04:48 Marshall Cells Not Reportable 07/27/21 04:48 Bite Cells Not Reportable 07/27/21 04:48 Crenated Cell Not Reportable 07/27/21 04:48 Elliptocytes Not Reportable 07/27/21 04:48 Acanthocytes (Spur) Not Reportable 07/27/21 04:48 Rouleaux Not Reportable 07/27/21 04:48 Hemoglobin C Crystals Not Reportable 07/27/21 04:48 Schistocytes Not Reportable 07/27/21 04:48 Malaria parasites Not Reportable 07/27/21 04:48 Jarvis Bodies Not Reportable 07/27/21 04:48 Hem Pathologist Commnt No 07/27/21 04:48 PT 15.1 Sec. (12.2-14.9) H 07/18/21 16:00 INR 1.13 (0.87-1.13) 07/18/21 16:00 APTT 31.9 Sec. (24.2-36.6) 07/18/21 16:00 D-Dimer 1503.43 ng/mlDDU (0-234) H 08/01/21 06:00 ABG pH 7.477 (7.320-7.450) H 08/01/21 04:00 POC ABG pCO2 41.3 mmHg (32.0-48.0) 08/01/21 04:00 ABG pCO2 35.2 mm Hg 07/19/21 Unknown POC ABG pO2 89.8 mmHg (83-108) 08/01/21 04:00 ABG pO2 64.2 mm Hg (80.0-90.0) L 07/19/21 Unknown POC ABG HCO3 29.9 08/01/21 04:00 ABG HCO3 20.1 mmol/L (20.0-26.0) 07/19/21 Unknown ABG O2 Saturation 97.0 (0-100) 08/01/21 04:00 ABG O2 Content 14.3 (0.0-44) 07/19/21 Unknown POC ABG Base Excess 5.8 08/01/21 04:00 ABG Base Excess -4.5 mmol/L (-2.0-3.0) L 07/19/21 Unknown ABG Hemoglobin 11.4 (12.0-17.5) L 08/01/21 04:00 ABG Oxyhemoglobin 96.4 (94-98) 08/01/21 04:00 ABG Carboxyhemoglobin 0.8 % (0.0-5.0) 07/19/21 Unknown ABG Methemoglobin 0.3 (0.0-1.5) 08/01/21 04:00 ABG Sodium 134.4 mmol/L (136.0-145.0) L 08/01/21 04:00 ABG Potassium 4.3 mmol/L (3.40-4.50) 08/01/21 04:00 ABG Chloride 99.0 mmol/L (98-107) 08/01/21 04:00 ABG Glucose 173 mg/dL (65-95) H 08/01/21 04:00 Oxyhemoglobin 91.9 % (95.0-99.0) L 07/19/21 Unknown Carboxyhemoglobin 0.3 (0.5-1.5) L 08/01/21 04:00 FiO2 100 % 07/19/21 Unknown FiO2 % 40.0 08/01/21 04:00 Sodium 136 mmol/L (137-145) L 08/01/21 06:00 Potassium 4.8 mmol/L (3.6-5.0) 08/01/21 06:00 Chloride 98.7 mmol/L (98-107) 08/01/21 06:00 Carbon Dioxide 31 mmol/L (22-30) H 08/01/21 06:00 Anion Gap 11 mmol/L 08/01/21 06:00 BUN 28 mg/dL (7-17) H 08/01/21 06:00 Creatinine 0.5 mg/dL (0.6-1.2) L 08/01/21 06:00 Estimated GFR > 60 ml/min 08/01/21 06:00 BUN/Creatinine Ratio 56 % 08/01/21 06:00 Glucose 154 mg/dL (65-100) H 08/01/21 06:00 POC Glucose 144 mg/dL (70-105) H 08/01/21 12:32 Lactic Acid 1.40 mmol/L (0.7-2.0) 07/18/21 16:00 Calcium 9.7 mg/dL (8.4-10.2) 08/01/21 06:00 Phosphorus 3.30 mg/dL (2.5-4.5) 08/01/21 06:00 Magnesium 2.10 mg/dL (1.7-2.3) 08/01/21 06:00 Ferritin 244.0 ng/mL (10.0-200.0) H 08/01/21 06:00 Total Bilirubin 0.20 mg/dL (0.1-1.2) 07/22/21 04:39 AST 38 units/L (5-40) 07/22/21 04:39 ALT 29 units/L (7-56) 07/22/21 04:39 Alkaline Phosphatase 83 units/L (35-129) 07/22/21 04:39 Ammonia 37.0 umol/L (25-60) 07/18/21 16:00 Lactate Dehydrogenase 369 units/L (91-180) H 08/01/21 06:00 Total Creatine Kinase 157 units/L (30-135) H 07/18/21 16:00 Troponin T 0.106 ng/mL (0.00-0.029) H* 07/18/21 16:00 C-Reactive Protein 0.20 mg/dL (0.00-1.30) 08/01/21 06:00 Total Protein 6.4 g/dL (6.3-8.2) 07/22/21 04:39 Albumin 2.9 g/dL (3.9-5) L 07/22/21 04:39 Albumin/Globulin Ratio 0.8 % 07/22/21 04:39 Triglycerides 156 mg/dL (2-149) H 07/18/21 16:00 Cholesterol 127 mg/dL (50-199) 07/18/21 16:00 LDL Cholesterol Direct 64 mg/dL (50-130) 07/18/21 16:00 HDL Cholesterol 33 mg/dL (40-59) L 07/18/21 16:00 Cholesterol/HDL Ratio 3.84 % 07/18/21 16:00 Procalcitonin < 0.05 ng/mL (<0.15) 07/26/21 13:53 TSH 0.469 mlU/mL (0.270-4.200) 07/21/21 04:52 Free T4 1.05 ng/dL (0.76-1.46) 07/21/21 04:52 Arterial Blood Glucose 173 mg/dL (65-95) H 08/01/21 04:00 Arterial Blood Ionized Calcium 4.7 mg/dL (4.6-5.3) 08/01/21 04:00 Urine Color Yellow (Yellow) 07/18/21 Unknown Urine Turbidity Slightly-cloudy (Clear) 07/18/21 Unknown Urine pH 5.0 (5.0-7.0) 07/18/21 Unknown Ur Specific [place] 1.020 (1.003-1.030) 07/18/21 Unknown Urine Protein >500 mg/dL (Negative) 07/18/21 Unknown Urine Glucose (UA) Neg mg/dL (Negative) 07/18/21 Unknown Urine Ketones 20 mg/dL (Negative) 07/18/21 Unknown Urine Blood Neg (Negative) 07/18/21 Unknown Urine Nitrite Neg (Negative) 07/18/21 Unknown Urine Bilirubin Neg (Negative) 07/18/21 Unknown Urine Urobilinogen < 2.0 mg/dL (<2.0) 07/18/21 Unknown Ur Leukocyte Esterase Neg (Negative) 07/18/21 Unknown Urine WBC (Auto) 9.0 /HPF (0.0-6.0) H 07/18/21 Unknown Urine RBC (Auto) 2.0 /HPF (0.0-6.0) 07/18/21 Unknown U Epithel Cells (Auto) 1.0 /HPF (0-13.0) 07/18/21 Unknown Urine Bacteria (Auto) 1+ /HPF (Negative) 07/18/21 Unknown Amorphous Crystals Few 07/18/21 Unknown Urine Mucus Few /HPF 07/18/21 Unknown Vancomycin Trough 22.9 ug/mL (5.0-20.0) H 07/25/21 04:28 Salicylates < 0.3 mg/dL (2.8-20.0) L 07/18/21 16:00 Urine Opiates Screen Negative 07/18/21 Unknown Urine Methadone Screen Negative 07/18/21 Unknown Acetaminophen 5.7 ug/mL (10.0-30.0) L 07/18/21 16:00 Ur Barbiturates Screen Negative 07/18/21 Unknown Ur Phencyclidine Scrn Negative 07/18/21 Unknown Ur Amphetamines Screen Negative 07/18/21 Unknown U Benzodiazepines Scrn Negative 07/18/21 Unknown Urine Cocaine Screen Negative 07/18/21 Unknown U Marijuana (THC) Screen Negative 07/18/21 Unknown Drugs of Abuse Note Disclamer 07/18/21 Unknown Plasma/Serum Alcohol < 0.01 % (0-0.07) 07/18/21 16:00 Coronavirus (PCR) Positive (Negative) A 07/19/21 Unknown Blood Type O POSITIVE 07/18/21 16:05 Antibody Screen Negative 07/18/21 16:05 Guzman/IV: Voiding Method Indwelling Catheter Active Medications - Current Medications Current Medications: Generic Name Dose Route Start Last Admin Trade Name Freq PRN Reason Stop Dose Admin Acetaminophen 650 mg 07/18/21 22:49 Acetaminophen 325 Mg Tab PO Q4H PRN Pain MILD(1-3)/Fever >100.5/URENA Lipase/Protease/Amylase 1 each 07/18/21 22:56 Lipase 10,500/Protease 25,000/Amylase 43,750 (Units) Dr Alvarado FEEDTUBE PRN PRN For Clogged Feeding Tube Bisacodyl 10 mg 07/27/21 09:02 07/27/21 11:16 Bisacodyl 10 Mg Rect Supp SD 10 mg QDAY PRN Administration Constip unreliev by MOM/or NPO Enoxaparin Sodium 100 mg 07/19/21 10:00 08/01/21 09:04 Enoxaparin 100 Mg/1 Ml Inj SUB-Q 100 mg Q12HR NICOLE Administration Protocol Famotidine 20 mg 07/18/21 22:00 08/01/21 09:04 Famotidine 20 Mg/2 Ml Inj IV 20 mg BID NICOLE Administration Fentanyl 50 mcg 07/18/21 14:41 Fentanyl 100 Mcg/2 Ml Inj IV Q10MIN PRN ANALGESIA Fentanyl 50 mcg 08/01/21 09:00 08/01/21 09:05 Fentanyl 100 Mcg/2 Ml Inj IV 50 mcg Q4H PRN Administration Pain , Severe (7-10) Haloperidol Lactate 5 mg 08/01/21 10:29 Haloperidol Lactate 5 Mg/1 Ml Inj IV Q6H PRN Agitation Hydralazine HCl 20 mg 08/01/21 11:00 Hydralazine 20 Mg/1 Ml Inj IV Q4HR NICOLE Hydrophilic Ointment 1 applic 07/18/21 14:41 Lip Therapy Vaseline TP Q2HR PRN Dry Lips Cefepime HCl 2 gm in 100 mls @ 200 mls/hr 07/25/21 14:00 08/01/21 06:15 Cefepime/Ns 2 Gm/100 Ml IV 08/02/21 06:29 200 mls/hr Q8H NICOLE Administration Protocol Insulin Glargine 5 units 07/27/21 22:00 07/31/21 22:48 Insulin Glargine 100 Units/Ml SUB-Q 5 units QHS NICOLE Administration Insulin Human Lispro 0 unit 07/27/21 12:00 08/01/21 06:15 Insulin Lispro 100 Unit/Ml SUB-Q 3 unit Q6HR NICOLE Administration Protocol Lorazepam 1 mg 08/01/21 09:00 Lorazepam 2 Mg/Ml Vial IV Q4H PRN Anxiety Methylprednisolone Sodium Succinate 40 mg 07/27/21 14:00 08/01/21 06:14 Methylprednisolone Sod Succinate 40 Mg/1 Ml Inj IV 40 mg Q8HR NICOLE Administration Midazolam HCl 2 mg 07/18/21 18:11 07/22/21 07:56 Midazolam 2 Mg/2 Ml Inj IV 2 mg Q10MIN PRN Administration Sedation Multi-Ingred Cream/Lotion/Oil/Oint 1 applic 07/18/21 14:41 Mineral Oil/Petrolatum, White Ophth Oint 3.5 Gm OU Q4HR PRN Dry Eye(s) Ondansetron HCl 4 mg 07/18/21 22:49 Ondansetron 4 Mg/2 Ml Inj IV Q8H PRN Nausea And Vomiting Senna/Docusate Sodium 1 tab 07/18/21 22:00 07/31/21 22:51 Sennosides/Docusate Sodium 8.6/50 Mg Tab FEEDTUBE 1 tab BID NICOLE Administration Simple Syrup 15 ml 07/18/21 22:56 Simple Syrup 15 Ml FEEDTUBE PRN PRN Hypoglycemia Simple Syrup 30 ml 07/18/21 22:56 Simple Syrup 15 Ml FEEDTUBE PRN PRN Hypoglycemia Sodium Bicarbonate 325 mg 07/18/21 22:56 Sodium Bicarbonate 325 Mg Tab FEEDTUBE PRN PRN For Clogged Feeding Tube Sodium Chloride 10 ml 07/19/21 10:00 08/01/21 09:06 Sodium Chloride 0.9% 10 Ml Flush Syringe IV 10 ml BID NICOLE Administration Sodium Chloride 10 ml 07/18/21 22:49 Sodium Chloride 0.9% 10 Ml Flush Syringe IV PRN PRN LINE FLUSH Sodium Chloride 5 ml 07/20/21 14:38 Sodium Chloride 0.9% 1000 Ml Iv Soln IV PRN PRN ART-LINE Nutrition/Malnutrition Assess - Dietary Evaluation Nutrition/Malnutrition Findings: Nutrition Notes Start: 07/19/21 09:15 Freq: Status: Active Protocol: Document 07/29/21 11:53 MK (Rec: 07/29/21 11:55 MK [id number]) Nutrition Notes Initial or Follow up Reassessment Current Diagnosis Acute Kidney Injury,Diabetes, Hypertension,Respiratory Failure Other Pertinent Diagnosis COVID Current Diet Vital HP at 55 ml/hr Labs/Tests BUN 34 Pertinent Medications Solumedrol Height 5 ft 6 in Weight 104.8 kg [place] Body Weight (kg) 59.09 BMI 37.3 Weight Status Obese Subjective/Other Information TF remains at goal and pt tolerating. Percent of energy/protein needs met: 93%/98% Burn Absent Trauma Absent Difficulty In Swallowing Current % PO Negligible Minimum of two criteria No physical signs of malnutrition #1 Nutrition Diagnosis Inadequate oral intake Diagnosis Progress(for reassessment Continues documentation) Is patient on ventilator? Yes Is Patient Ambulatory and/or Out of Bed No REE-([facility]-confined to bed) 2000.624 Kcal/Kg value to use for calculation 14 Approximate Energy Requirements Using 1467 kcal/Kg Calculation Used for Recommendations Kcal/kg Additional Notes Protein: (>2g/kg IBW) >118g Fluid: 1 ml/kcal or per MD Nutrition Intervention Change Diet Order: Continue Vital HP Nutrition Support: Vital HP at 55 ml/hr Flush 50 ml q4h Kcal 1,320 Protein (gm) 116 Fluid (mL) 1,104 Goal #1 Meet at least 75% of protein and kcal needs via TF Anticipated Discharge Needs: Unable to determine at this time Follow-Up By: 08/03/21 Additional Comments F/u: TF tolerance and renal function <EDMUNDO DAS - Last Filed: 08/03/21 09:09> History Interval history: I saw and evaluated the patient. Discussed with the nurse practitioner and agree with their findings and plan as documented in this note. Hospitalist Physical - Constitutional Vitals: Temp Pulse Resp BP Pulse Ox 99.6 F 99 H 20 128/57 93 08/03/21 06:32 08/03/21 06:48 08/03/21 06:32 08/03/21 06:48 08/03/21 06:32 HEART Score - HEART Score Troponin: Troponin T 0.106 ng/mL (0.00-0.029) H* 07/18/21 16:00 Results - Labs CBC & Chem 7: 08/03/21 05:33 08/03/21 05:33 Labs: Laboratory Last Values WBC 10.1 K/mm3 (4.5-11.0) 08/03/21 05:33 RBC 3.66 M/mm3 (3.65-5.03) 08/03/21 05:33 Hgb 10.7 gm/dl (10.1-14.3) 08/03/21 05:33 Hct 32.2 % (30.3-42.9) 08/03/21 05:33 MCV 88 fl (79-97) 08/03/21 05:33 MCH 29 pg (28-32) 08/03/21 05:33 MCHC 33 % (30-34) 08/03/21 05:33 RDW 15.4 % (13.2-15.2) H 08/03/21 05:33 Plt Count 286 K/mm3 (140-440) 08/03/21 05:33 Lymph % (Auto) 10.7 % (13.4-35.0) L 07/19/21 04:59 [place] % (Auto) 4.8 % (0.0-7.3) 07/19/21 04:59 Eos % (Auto) 0.1 % (0.0-4.3) 07/19/21 04:59 Baso % (Auto) 0.1 % (0.0-1.8) 07/19/21 04:59 Lymph # (Auto) 1.1 K/mm3 (1.2-5.4) L 07/19/21 04:59 [place] # (Auto) 0.5 K/mm3 (0.0-0.8) 07/19/21 04:59 Eos # (Auto) 0.0 K/mm3 (0.0-0.4) 07/19/21 04:59 Baso # (Auto) 0.0 K/mm3 (0.0-0.1) 07/19/21 04:59 Add Manual Diff Complete 07/27/21 04:48 Total Counted 100 07/27/21 04:48 Seg Neutrophils % Records Officer 07/27/21 04:48 Seg Neuts % (Manual) 92.0 % (40.0-70.0) H 07/27/21 04:48 Band Neutrophils % 1.0 % 07/26/21 06:07 Lymphocytes % (Manual) 3.0 % (13.4-35.0) L 07/27/21 04:48 Monocytes % (Manual) 5.0 % (0.0-7.3) 07/27/21 04:48 Metamyelocytes % 1.0 % 07/26/21 06:07 Myelocytes % 1.0 % 07/25/21 04:28 Nucleated RBC % 1.0 % (0.0-0.9) H 07/27/21 04:48 Seg Neutrophils # 8.7 K/mm3 (1.8-7.7) H 07/19/21 04:59 Seg Neutrophils # Man 15.2 K/mm3 (1.8-7.7) H 07/27/21 04:48 Band Neutrophils # 0.0 K/mm3 07/27/21 04:48 Lymphocytes # (Manual) 0.5 K/mm3 (1.2-5.4) L 07/27/21 04:48 Abs React Lymphs (Man) 0.0 K/mm3 07/27/21 04:48 Monocytes # (Manual) 0.8 K/mm3 (0.0-0.8) 07/27/21 04:48 Eosinophils # (Manual) 0.0 K/mm3 (0.0-0.4) 07/27/21 04:48 Basophils # (Manual) 0.0 K/mm3 (0.0-0.1) 07/27/21 04:48 Metamyelocytes # 0.0 K/mm3 07/27/21 04:48 Myelocytes # 0.0 K/mm3 07/27/21 04:48 Promyelocytes # 0.0 K/mm3 07/27/21 04:48 Blast Cells # 0.0 K/mm3 07/27/21 04:48 WBC Morphology Not Reportable 07/27/21 04:48 Hypersegmented Neuts Not Reportable 07/27/21 04:48 Hyposegmented Neuts Not Reportable 07/27/21 04:48 Hypogranular Neuts Not Reportable 07/27/21 04:48 Smudge Cells Not Reportable 07/27/21 04:48 Toxic Granulation Not Reportable 07/27/21 04:48 Toxic Vacuolation Not Reportable 07/27/21 04:48 Dohle Bodies Not Reportable 07/27/21 04:48 Pelger-Huet Anomaly Not Reportable 07/27/21 04:48 Alonzo Rods Not Reportable 07/27/21 04:48 Platelet Estimate Consistent w auto 07/27/21 04:48 Clumped Platelets Not Reportable 07/27/21 04:48 Plt Clumps, EDTA Not Reportable 07/27/21 04:48 Large Platelets Not Reportable 07/27/21 04:48 Giant Platelets Not Reportable 07/27/21 04:48 Platelet Satelliting Not Reportable 07/27/21 04:48 Plt Morphology Comment Not Reportable 07/27/21 04:48 RBC Morphology Normal 07/27/21 04:48 Dimorphic RBCs Not Reportable 07/27/21 04:48 Polychromasia Not Reportable 07/27/21 04:48 Hypochromasia Not Reportable 07/27/21 04:48 Poikilocytosis Not Reportable 07/27/21 04:48 Anisocytosis Not Reportable 07/27/21 04:48 Microcytosis Not Reportable 07/27/21 04:48 Macrocytosis Not Reportable 07/27/21 04:48 Spherocytes Not Reportable 07/27/21 04:48 Pappenheimer Bodies Not Reportable 07/27/21 04:48 Sickle Cells Not Reportable 07/27/21 04:48 Target Cells Not Reportable 07/27/21 04:48 Tear Drop Cells Not Reportable 07/27/21 04:48 Ovalocytes Not Reportable 07/27/21 04:48 Helmet Cells Not Reportable 07/27/21 04:48 Jacinto-Keyser Bodies Not Reportable 07/27/21 04:48 [place] Rings Not Reportable 07/27/21 04:48 [place] Cells Not Reportable 07/27/21 04:48 Bite Cells Not Reportable 07/27/21 04:48 Crenated Cell Not Reportable 07/27/21 04:48 Elliptocytes Not Reportable 07/27/21 04:48 Acanthocytes (Spur) Not Reportable 07/27/21 04:48 Rouleaux Not Reportable 07/27/21 04:48 Hemoglobin C Crystals Not Reportable 07/27/21 04:48 Schistocytes Not Reportable 07/27/21 04:48 Malaria parasites Not Reportable 07/27/21 04:48 Jarvis Bodies Not Reportable 07/27/21 04:48 Hem Pathologist Commnt No 07/27/21 04:48 PT 15.4 Sec. (12.2-14.9) H 08/03/21 05:33 INR 1.17 (0.87-1.13) H 08/03/21 05:33 APTT 31.9 Sec. (24.2-36.6) 07/18/21 16:00 D-Dimer 1383.44 ng/mlDDU (0-234) H 08/03/21 05:33 ABG pH 7.477 (7.320-7.450) H 08/01/21 04:00 POC ABG pCO2 41.3 mmHg (32.0-48.0) 08/01/21 04:00 ABG pCO2 35.2 mm Hg 07/19/21 Unknown POC ABG pO2 89.8 mmHg (83-108) 08/01/21 04:00 ABG pO2 64.2 mm Hg (80.0-90.0) L 07/19/21 Unknown POC ABG HCO3 29.9 08/01/21 04:00 ABG HCO3 20.1 mmol/L (20.0-26.0) 07/19/21 Unknown ABG O2 Saturation 97.0 (0-100) 08/01/21 04:00 ABG O2 Content 14.3 (0.0-44) 07/19/21 Unknown POC ABG Base Excess 5.8 08/01/21 04:00 ABG Base Excess -4.5 mmol/L (-2.0-3.0) L 07/19/21 Unknown ABG Hemoglobin 11.4 (12.0-17.5) L 08/01/21 04:00 ABG Oxyhemoglobin 96.4 (94-98) 08/01/21 04:00 ABG Carboxyhemoglobin 0.8 % (0.0-5.0) 07/19/21 Unknown ABG Methemoglobin 0.3 (0.0-1.5) 08/01/21 04:00 ABG Sodium 134.4 mmol/L (136.0-145.0) L 08/01/21 04:00 ABG Potassium 4.3 mmol/L (3.40-4.50) 08/01/21 04:00 ABG Chloride 99.0 mmol/L (98-107) 08/01/21 04:00 ABG Glucose 173 mg/dL (65-95) H 08/01/21 04:00 Oxyhemoglobin 91.9 % (95.0-99.0) L 07/19/21 Unknown Carboxyhemoglobin 0.3 (0.5-1.5) L 08/01/21 04:00 FiO2 100 % 07/19/21 Unknown FiO2 % 40.0 08/01/21 04:00 Sodium 136 mmol/L (137-145) L 08/03/21 05:33 Potassium 4.3 mmol/L (3.6-5.0) 08/03/21 05:33 Chloride 99.4 mmol/L (98-107) 08/03/21 05:33 Carbon Dioxide 29 mmol/L (22-30) 08/03/21 05:33 Anion Gap 12 mmol/L 08/03/21 05:33 BUN 28 mg/dL (7-17) H 08/03/21 05:33 Creatinine 0.6 mg/dL (0.6-1.2) 08/03/21 05:33 Estimated GFR > 60 ml/min 08/03/21 05:33 BUN/Creatinine Ratio 47 % 08/03/21 05:33 Glucose 114 mg/dL (65-100) H 08/03/21 05:33 POC Glucose 124 mg/dL (70-105) H 08/03/21 07:57 Lactic Acid 1.40 mmol/L (0.7-2.0) 07/18/21 16:00 Calcium 9.4 mg/dL (8.4-10.2) 08/03/21 05:33 Phosphorus 3.30 mg/dL (2.5-4.5) 08/01/21 06:00 Magnesium 2.10 mg/dL (1.7-2.3) 08/01/21 06:00 Ferritin 263.2 ng/mL (10.0-200.0) H 08/03/21 05:33 Total Bilirubin 0.20 mg/dL (0.1-1.2) 07/22/21 04:39 AST 38 units/L (5-40) 07/22/21 04:39 ALT 29 units/L (7-56) 07/22/21 04:39 Alkaline Phosphatase 83 units/L (35-129) 07/22/21 04:39 Ammonia 37.0 umol/L (25-60) 07/18/21 16:00 Lactate Dehydrogenase 427 units/L (91-180) H 08/03/21 05:33 Total Creatine Kinase 157 units/L (30-135) H 07/18/21 16:00 Troponin T 0.106 ng/mL (0.00-0.029) H* 07/18/21 16:00 C-Reactive Protein 0.20 mg/dL (0.00-1.30) 08/03/21 05:33 Total Protein 6.4 g/dL (6.3-8.2) 07/22/21 04:39 Albumin 2.9 g/dL (3.9-5) L 07/22/21 04:39 Albumin/Globulin Ratio 0.8 % 07/22/21 04:39 Triglycerides 156 mg/dL (2-149) H 07/18/21 16:00 Cholesterol 127 mg/dL (50-199) 07/18/21 16:00 LDL Cholesterol Direct 64 mg/dL (50-130) 07/18/21 16:00 HDL Cholesterol 33 mg/dL (40-59) L 07/18/21 16:00 Cholesterol/HDL Ratio 3.84 % 07/18/21 16:00 Procalcitonin < 0.05 ng/mL (<0.15) 07/26/21 13:53 TSH 0.469 mlU/mL (0.270-4.200) 07/21/21 04:52 Free T4 1.05 ng/dL (0.76-1.46) 07/21/21 04:52 Arterial Blood Glucose 173 mg/dL (65-95) H 08/01/21 04:00 Arterial Blood Ionized Calcium 4.7 mg/dL (4.6-5.3) 08/01/21 04:00 Urine Color Yellow (Yellow) 07/18/21 Unknown Urine Turbidity Slightly-cloudy (Clear) 07/18/21 Unknown Urine pH 5.0 (5.0-7.0) 07/18/21 Unknown Ur Specific [place] 1.020 (1.003-1.030) 07/18/21 Unknown Urine Protein >500 mg/dL (Negative) 07/18/21 Unknown Urine Glucose (UA) Neg mg/dL (Negative) 07/18/21 Unknown Urine Ketones 20 mg/dL (Negative) 07/18/21 Unknown Urine Blood Neg (Negative) 07/18/21 Unknown Urine Nitrite Neg (Negative) 07/18/21 Unknown Urine Bilirubin Neg (Negative) 07/18/21 Unknown Urine Urobilinogen < 2.0 mg/dL (<2.0) 07/18/21 Unknown Ur Leukocyte Esterase Neg (Negative) 07/18/21 Unknown Urine WBC (Auto) 9.0 /HPF (0.0-6.0) H 07/18/21 Unknown Urine RBC (Auto) 2.0 /HPF (0.0-6.0) 07/18/21 Unknown U Epithel Cells (Auto) 1.0 /HPF (0-13.0) 07/18/21 Unknown Urine Bacteria (Auto) 1+ /HPF (Negative) 07/18/21 Unknown Amorphous Crystals Few 07/18/21 Unknown Urine Mucus Few /HPF 07/18/21 Unknown Vancomycin Trough 22.9 ug/mL (5.0-20.0) H 07/25/21 04:28 Salicylates < 0.3 mg/dL (2.8-20.0) L 07/18/21 16:00 Urine Opiates Screen Negative 07/18/21 Unknown Urine Methadone Screen Negative 07/18/21 Unknown Acetaminophen 5.7 ug/mL (10.0-30.0) L 07/18/21 16:00 Ur Barbiturates Screen Negative 07/18/21 Unknown Ur Phencyclidine Scrn Negative 07/18/21 Unknown Ur Amphetamines Screen Negative 07/18/21 Unknown U Benzodiazepines Scrn Negative 07/18/21 Unknown Urine Cocaine Screen Negative 07/18/21 Unknown U Marijuana (THC) Screen Negative 07/18/21 Unknown Drugs of Abuse Note Disclamer 07/18/21 Unknown Plasma/Serum Alcohol < 0.01 % (0-0.07) 07/18/21 16:00 Coronavirus (PCR) Positive (Negative) A 07/19/21 Unknown Blood Type O POSITIVE 07/18/21 16:05 Antibody Screen Negative 07/18/21 16:05 Guzman/IV: Voiding Method Indwelling Catheter Active Medications - Current Medications Current Medications: Generic Name Dose Route Start Last Admin Trade Name Freq PRN Reason Stop Dose Admin Acetaminophen 650 mg 07/18/21 22:49 Acetaminophen 325 Mg Tab PO Q4H PRN Pain MILD(1-3)/Fever >100.5/URENA Lipase/Protease/Amylase 1 each 07/18/21 22:56 Lipase 10,500/Protease 25,000/Amylase 43,750 (Units) Dr Alvarado FEEDTUBE PRN PRN For Clogged Feeding Tube Bisacodyl 10 mg 07/27/21 09:02 07/27/21 11:16 Bisacodyl 10 Mg Rect Supp SD 10 mg QDAY PRN Administration Constip unreliev by MOM/or NPO Enoxaparin Sodium 100 mg 07/19/21 10:00 08/02/21 21:08 Enoxaparin 100 Mg/1 Ml Inj SUB-Q 100 mg Q12HR NICOLE Administration Protocol Famotidine 20 mg 07/18/21 22:00 08/02/21 21:09 Famotidine 20 Mg/2 Ml Inj IV 20 mg BID NICOLE Administration Haloperidol Lactate 5 mg 08/01/21 10:29 Haloperidol Lactate 5 Mg/1 Ml Inj IV Q6H PRN Agitation Hydralazine HCl 20 mg 08/01/21 11:00 08/03/21 06:48 Hydralazine 20 Mg/1 Ml Inj IV Not Given Q4HR [facility] Hydrophilic Ointment 1 applic 07/18/21 14:41 Lip Therapy Vaseline TP Q2HR PRN Dry Lips Insulin Glargine 5 units 07/27/21 22:00 08/02/21 21:16 Insulin Glargine 100 Units/Ml SUB-Q Not Given QHS [facility] Insulin Human Lispro 0 unit 07/27/21 12:00 08/03/21 06:48 Insulin Lispro 100 Unit/Ml SUB-Q Not Given Q6HR [facility] Protocol Methylprednisolone Sodium Succinate 40 mg 07/27/21 14:00 08/03/21 05:45 Methylprednisolone Sod Succinate 40 Mg/1 Ml Inj IV 40 mg Q8HR NICOLE Administration Multi-Ingred Cream/Lotion/Oil/Oint 1 applic 07/18/21 14:41 Mineral Oil/Petrolatum, White Ophth Oint 3.5 Gm OU Q4HR PRN Dry Eye(s) Ondansetron HCl 4 mg 07/18/21 22:49 Ondansetron 4 Mg/2 Ml Inj IV Q8H PRN Nausea And Vomiting Oxycodone/Acetaminophen 1 tab 08/01/21 15:00 Oxycodone /Acetaminophen 5-325mg Tab PO Q6H PRN Pain, Moderate (4-6) Nutrition/Malnutrition Assess - Dietary Evaluation Nutrition/Malnutrition Findings: Nutrition Notes Start: 07/19/21 09:15 Freq: Status: Active Protocol: Document 07/29/21 11:53 MK (Rec: 07/29/21 11:55 MK [id number]) Nutrition Notes Initial or Follow up Reassessment Current Diagnosis Acute Kidney Injury,Diabetes, Hypertension,Respiratory Failure Other Pertinent Diagnosis COVID Current Diet Vital HP at 55 ml/hr Labs/Tests BUN 34 Pertinent Medications Solumedrol Height 5 ft 6 in Weight 104.8 kg [place] Body Weight (kg) 59.09 BMI 37.3 Weight Status Obese Subjective/Other Information TF remains at goal and pt tolerating. Percent of energy/protein needs met: 93%/98% Burn Absent Trauma Absent Difficulty In Swallowing Current % PO Negligible Minimum of two criteria No physical signs of malnutrition #1 Nutrition Diagnosis Inadequate oral intake Diagnosis Progress(for reassessment Continues documentation) Is patient on ventilator? Yes Is Patient Ambulatory and/or Out of Bed No REE-([facility]-confined to bed) 2000.624 Kcal/Kg value to use for calculation 14 Approximate Energy Requirements Using 1467 kcal/Kg Calculation Used for Recommendations Kcal/kg Additional Notes Protein: (>2g/kg IBW) >118g Fluid: 1 ml/kcal or per MD Nutrition Intervention Change Diet Order: Continue Vital HP Nutrition Support: Vital HP at 55 ml/hr Flush 50 ml q4h Kcal 1,320 Protein (gm) 116 Fluid (mL) 1,104 Goal #1 Meet at least 75% of protein and kcal needs via TF Anticipated Discharge Needs: Unable to determine at this time Follow-Up By: 08/03/21 Additional Comments F/u: TF tolerance and renal function
[2021-08-01] MEDS: hydrALAZINE 20 MG/1 ML INJ IV SCH ×3 (14:52→19:17)
[2021-08-01] MEDS: SENNOSIDES/DOCUSATE SODIUM 8.6/50 MG TAB FEEDTUBE SCH (14:53)
[2021-08-01] MEDS ORDERED: oxyCODONE /ACETAMINOPHEN 5-325MG TAB PO PRN (15:00)
[2021-08-02 06:30] LABS: Hematocrit 32.9 % (30.3-42.9); Hemoglobin 10.9 gm/dl (10.1-14.3); Mean Corpuscular HGB Conc 33 % (30-34); Mean Corpuscular Volume 87 fl (79-97); Platelet Count 251 K/mm3 (140-440); Red Blood Count 3.79 M/mm3 (3.65-5.03); Red Cell Distribution Width 15.2 % (13.2-15.2)
[2021-08-02] MEDS: CEFEPIME/NS 2 GM/100 ML 2 GM/100 ML BAG IV SCH ×2 (06:40→06:47)
[2021-08-02] MEDS: hydrALAZINE 20 MG/1 ML INJ IV SCH ×6 (06:42→23:19)
[2021-08-02 06:43] LABS: Blood Urea Nitrogen 23 mg/dL (7-17); Calcium 9.7 mg/dL (8.4-10.2); Hemolysis Index 4
[2021-08-02] MEDS: ENOXAPARIN 100 MG/1 ML INJ SUB-Q SCH ×3 (06:44→21:08)
[2021-08-02] MEDS: INSULIN GLARGINE 100 UNITS/ML SUB-Q SCH ×2 (06:44→21:16)
[2021-08-02 06:45] LABS: BUN/Creatinine Ratio 46
[2021-08-02] MEDS: FAMOTIDINE 20 MG/2 ML INJ IV SCH ×3 (06:45→21:09)
[2021-08-02] MEDS: SENNOSIDES/DOCUSATE SODIUM 8.6/50 MG TAB FEEDTUBE SCH ×2 (06:45→10:11)
[2021-08-02] MEDS: methylPREDNISolone Sod Succinate 40 MG/1 ML INJ IV SCH ×4 (06:45→21:07)
[2021-08-02] MEDS: INSULIN LISPRO 100 UNIT/ML SUB-Q SCH ×3 (06:46→23:20)
[2021-08-02] MEDS: FREE WATER PO SCH ×3 (10:09→13:26)
--- NOTE | 2021-08-02 10:41 | Progress Note ---
<LUCÍACYNTHIA CARLSON - Last Filed: 08/02/21 12:28> Assessment and Plan Assessment and plan: =Assessment and plan: This is a 55-year-old female with obesity, diabetes, anxiety, hypertension admitted with severe Covid 19 pneumonia, multiple subsegmental pulmonary embolism, acute kidney injury and sepsis Neuro: Acute metabolic encephalopathy, h/o anxiety -delirium protocol -selective talking- but she has spoke in maltese and creole -OYSTER FLOATER pos -prn PAIN MEDS -avoid oversedation -07/18 CT head NAP CV: SRSB, mobile echogenic density on the tricuspid valve apparatus -Cardiology consulted, appreciate recommendations -Cardiology concluded SB likely aggravated by remdesivir -Normal TSH -Recommend repeat echo in 3 months to evaluate mobile port density -Per cardiology: Given clinical picture density most likely represents a thrombus in the second vegetation SR echo-- see report Respiratory: ARDS, acute hypoxic respiratory failure, severe COVID-19 bronchopneumonia--improving -Intubated 07/18 with 7.50 ETT at 21 the lips -Patient was extubated on 08/01 -CCM FOLLOWING -Supplemental oxygen as needed -tolerating NC -SPO2 monitoring per protocol GI: Moderate protein calorie malnutrition, obesity -Nutrition FOLLOWING -TF -speech consult for swallowing -bowel reg -PPI while on steroids : Acute kidney injury secondary to sepsis/ATN (resolved) -Strict intake and output -Daily weights -Monitor and intervene with electrolytes as needed -Trend BMP -AM labs ordered Heme: Multiple subsegmental pulmonary embolism, LLE DVT -On Lovenox- therapeutic pending speech eval- start coumadin with daily INR -Trend CBC -Monitor temperature curve -SCDs to bilateral lower extremities while in bed -Evidenced on CTA chest-> see results -BLE US shows LLE DVT ID: COVID-19 pneumonia, sepsis/septic shock-improving -Infectious disease consulted, appreciate recommendations -COVID-19 PCR positive -Antibiotics with cefepime -S/p remdesivir and Actemra -Solu-Medrol -weaning per CCM -Contact/droplet isolation -Pulmonary hygiene -Trend COVID-19 inflammatory markers for risk stratification Endo: Stress hyperglycemia, obesity, h/o DM type II -Avoid hypoglycemia -SSI -Lantus -Accu-Cheks every 6h The high probability of a clinically significant, sudden or life threatening deterioration of the [multi] system(s) required my full and direct attention, intervention and personal management. The aggregate NON critical care time was [30] minutes. This time is in addition to time spent performing reported procedures but includes the following: [x] Data Review and interpretation [x] Patient assessment and monitoring of vital signs [x] Documentation [x] Medication orders and management Disposition Plan: transfer to floor today Total Time Spent with Patient (Minutes): 30 History Interval history: This is a 55-year-old female with obesity, diabetes, anxiety, hypertension who presented to the emergency department on 07/18 via EMS for low oxygen saturations on CPAP in the high 60s to 70s. In the emergency department patient had persistently low oxygen levels and was intubated electively. Work-up in the emergency department revealed bilateral pneumonia, multiple segmental bilateral pulmonary emboli, extensive bilateral Covid bronchopneumonia. Patient was admi tted to the hospitalist service with consults to [facility] for acute hypoxic respiratory failure, acute encephalopathy, multiple pulmonary embolism ION and as a COVID-19 PUI. 07/18 admit to hospital via ER; being held in ER for ICU bed 07/19 remains in ER intubated and mechanically ventilated; covid pos 07-20 came to ICU overnight from ER; no bradycardic 07/21/2021. Patient remains orally intubated on mechanical ventilation AC mode rate of 26, tidal volume 420, FiO2 90% and PEEP of 16. Continue empiric antibiotics of ceftriaxone and azithromycin for 5 days total. Complete 5 days of remdesivir and continue IV steroids. Patient received Actemra 07/20/2021. Continue therapeutic anticoagulation with Lovenox 100 mg subcu twice daily. Continue sedation of fentanyl and Versed as tolerated. Continue pressors to maintain MAP > 65. Follow-up echocardiogram. 07/22/2021. Patient on mechanical ventilation AC mode rate of 26, FiO2 70% and PEEP of 16. Continue to wean FiO2 as tolerated. Continue antibiotics per ID recommendations. Patient currently with ceftriaxone and azithromycin. Complete 5 days of remdesivir. Continue IV steroids. Patient received Actemra on 07/20/2021. Continue prone positioning as able. Continue to trend inflammatory markers. 07/23/2021. Patient remains on mechanical ventilation AC mode rate of 26, tidal volume 420, FiO2 75% and PEEP of 16. Continue to wean FiO2 as tolerated. Continue antibiotics per ID recommendations. Patient currently with ceftriaxone and azithromycin. Complete 5 days of remdesivir. Continue IV steroids. Patient received Actemra on 07/20/2021. Continue prone positioning as able. Continue to trend inflammatory markers. ID and pulmonary following. 07/24/2021. Patient remains on mechanical ventilation AC mode rate of 26, tidal volume 420, FiO2 70% and PEEP of 16. Patient with possible tricuspid valve vegetation seen on echocardiogram. Consult cardiology for further evaluation. Continue IV antibiotics per ID recommendations. Prone position is possible. Continue to trend inflammatory markers. 07/25/2021. Patient remains on mechanical ventilation AC mode rate of 26, tidal volume 420, FiO2 70% and PEEP of 14. Patient with possible tricuspid valve vegetation seen on echocardiogram. Consult cardiology for further evaluation. Continue IV antibiotics per ID recommendations. Prone position is possible. Continue to trend inflammatory markers. 07/26: MICHAEL, hyperkalemia 07/27: OETT advanced. Remains sedated but able to follow commands. MICHAEL. 07/28: O ETT retracted. MICHAEL overnight. Patient remains sinus bradycardia and hypertensive at times. Remains on Versed and fentanyl. 07/29: Night patient became hypotensive and required a 500 cc bolus. Hydralazine dose change. 07/30: Vent changes made per [facility], patient remains on fentanyl and Versed. Increase in Lantus 07/31: CCM made vent changes, patient is very sensitive to decreases in sedation 08/01: Patient was extubated today by [facility], patient seems to be confused however sedation was just stopped today. 08-02 delirium; NC; speech to see; transfer to the floor Disposition Plan: transfer to floor Total Time Spent with Patient (Minutes): 30 non critical care History Interval history: extubated yesterday Hospitalist Physical - Constitutional Vitals: Temp Pulse Resp BP Pulse Ox 98.6 F 103 H 19 132/116 90 08/02/21 08:00 08/02/21 10:10 08/02/21 09:16 08/02/21 10:10 08/02/21 09:16 General appearance: Present: no acute distress, other - EENT Eyes: Present: PERRL, EOM intact ENT: hearing intact, clear oral mucosa - Neck Neck: Present: supple, normal ROM - Respiratory Respiratory effort: normal - Cardiovascular Heart Sounds: Present: S1 & S2 - Extremities Extremities: no ischemia Peripheral Pulses: within normal limits - Abdominal General gastrointestinal: soft, non-tender - Integumentary Integumentary: Present: clear, warm, dry - Psychiatric Psychiatric: other - Neurologic Neurologic: other - Allied Health Allied health notes reviewed: nursing, RT, social work, case management HEART Score - HEART Score Troponin: Troponin T 0.106 ng/mL (0.00-0.029) H* 07/18/21 16:00 Results - Labs CBC & Chem 7: 08/02/21 05:30 08/02/21 05:30 Labs: Laboratory Last Values WBC 11.2 K/mm3 (4.5-11.0) H 08/02/21 05:30 RBC 3.79 M/mm3 (3.65-5.03) 08/02/21 05:30 Hgb 10.9 gm/dl (10.1-14.3) 08/02/21 05:30 Hct 32.9 % (30.3-42.9) 08/02/21 05:30 MCV 87 fl (79-97) 08/02/21 05:30 MCH 29 pg (28-32) 08/02/21 05:30 MCHC 33 % (30-34) 08/02/21 05:30 RDW 15.2 % (13.2-15.2) 08/02/21 05:30 Plt Count 251 K/mm3 (140-440) 08/02/21 05:30 Lymph % (Auto) 10.7 % (13.4-35.0) L 07/19/21 04:59 [place] % (Auto) 4.8 % (0.0-7.3) 07/19/21 04:59 Eos % (Auto) 0.1 % (0.0-4.3) 07/19/21 04:59 Baso % (Auto) 0.1 % (0.0-1.8) 07/19/21 04:59 Lymph # (Auto) 1.1 K/mm3 (1.2-5.4) L 07/19/21 04:59 [place] # (Auto) 0.5 K/mm3 (0.0-0.8) 07/19/21 04:59 Eos # (Auto) 0.0 K/mm3 (0.0-0.4) 07/19/21 04:59 Baso # (Auto) 0.0 K/mm3 (0.0-0.1) 07/19/21 04:59 Add Manual Diff Complete 07/27/21 04:48 Total Counted 100 07/27/21 04:48 Seg Neutrophils % Bag Valver 07/27/21 04:48 Seg Neuts % (Manual) 92.0 % (40.0-70.0) H 07/27/21 04:48 Band Neutrophils % 1.0 % 07/26/21 06:07 Lymphocytes % (Manual) 3.0 % (13.4-35.0) L 07/27/21 04:48 Monocytes % (Manual) 5.0 % (0.0-7.3) 07/27/21 04:48 Metamyelocytes % 1.0 % 07/26/21 06:07 Myelocytes % 1.0 % 07/25/21 04:28 Nucleated RBC % 1.0 % (0.0-0.9) H 07/27/21 04:48 Seg Neutrophils # 8.7 K/mm3 (1.8-7.7) H 07/19/21 04:59 Seg Neutrophils # Man 15.2 K/mm3 (1.8-7.7) H 07/27/21 04:48 Band Neutrophils # 0.0 K/mm3 07/27/21 04:48 Lymphocytes # (Manual) 0.5 K/mm3 (1.2-5.4) L 07/27/21 04:48 Abs React Lymphs (Man) 0.0 K/mm3 07/27/21 04:48 Monocytes # (Manual) 0.8 K/mm3 (0.0-0.8) 07/27/21 04:48 Eosinophils # (Manual) 0.0 K/mm3 (0.0-0.4) 07/27/21 04:48 Basophils # (Manual) 0.0 K/mm3 (0.0-0.1) 07/27/21 04:48 Metamyelocytes # 0.0 K/mm3 07/27/21 04:48 Myelocytes # 0.0 K/mm3 07/27/21 04:48 Promyelocytes # 0.0 K/mm3 07/27/21 04:48 Blast Cells # 0.0 K/mm3 07/27/21 04:48 WBC Morphology Not Reportable 07/27/21 04:48 Hypersegmented Neuts Not Reportable 07/27/21 04:48 Hyposegmented Neuts Not Reportable 07/27/21 04:48 Hypogranular Neuts Not Reportable 07/27/21 04:48 Smudge Cells Not Reportable 07/27/21 04:48 Toxic Granulation Not Reportable 07/27/21 04:48 Toxic Vacuolation Not Reportable 07/27/21 04:48 Dohle Bodies Not Reportable 07/27/21 04:48 Pelger-Huet Anomaly Not Reportable 07/27/21 04:48 Alonzo Rods Not Reportable 07/27/21 04:48 Platelet Estimate Consistent w auto 07/27/21 04:48 Clumped Platelets Not Reportable 07/27/21 04:48 Plt Clumps, EDTA Not Reportable 07/27/21 04:48 Large Platelets Not Reportable 07/27/21 04:48 Giant Platelets Not Reportable 07/27/21 04:48 Platelet Satelliting Not Reportable 07/27/21 04:48 Plt Morphology Comment Not Reportable 07/27/21 04:48 RBC Morphology Normal 07/27/21 04:48 Dimorphic RBCs Not Reportable 07/27/21 04:48 Polychromasia Not Reportable 07/27/21 04:48 Hypochromasia Not Reportable 07/27/21 04:48 Poikilocytosis Not Reportable 07/27/21 04:48 Anisocytosis Not Reportable 07/27/21 04:48 Microcytosis Not Reportable 07/27/21 04:48 Macrocytosis Not Reportable 07/27/21 04:48 Spherocytes Not Reportable 07/27/21 04:48 Pappenheimer Bodies Not Reportable 07/27/21 04:48 Sickle Cells Not Reportable 07/27/21 04:48 Target Cells Not Reportable 07/27/21 04:48 Tear Drop Cells Not Reportable 07/27/21 04:48 Ovalocytes Not Reportable 07/27/21 04:48 Helmet Cells Not Reportable 07/27/21 04:48 [place] Bodies Not Reportable 07/27/21 04:48 [place] Rings Not Reportable 07/27/21 04:48 [place] Cells Not Reportable 07/27/21 04:48 Bite Cells Not Reportable 07/27/21 04:48 Crenated Cell Not Reportable 07/27/21 04:48 Elliptocytes Not Reportable 07/27/21 04:48 Acanthocytes (Spur) Not Reportable 07/27/21 04:48 Rouleaux Not Reportable 07/27/21 04:48 Hemoglobin C Crystals Not Reportable 07/27/21 04:48 Schistocytes Not Reportable 07/27/21 04:48 Malaria parasites Not Reportable 07/27/21 04:48 Jarvis Bodies Not Reportable 07/27/21 04:48 Hem Pathologist Commnt No 07/27/21 04:48 PT 15.1 Sec. (12.2-14.9) H 07/18/21 16:00 INR 1.13 (0.87-1.13) 07/18/21 16:00 APTT 31.9 Sec. (24.2-36.6) 07/18/21 16:00 D-Dimer 1503.43 ng/mlDDU (0-234) H 08/01/21 06:00 ABG pH 7.477 (7.320-7.450) H 08/01/21 04:00 POC ABG pCO2 41.3 mmHg (32.0-48.0) 08/01/21 04:00 ABG pCO2 35.2 mm Hg 07/19/21 Unknown POC ABG pO2 89.8 mmHg (83-108) 08/01/21 04:00 ABG pO2 64.2 mm Hg (80.0-90.0) L 07/19/21 Unknown POC ABG HCO3 29.9 08/01/21 04:00 ABG HCO3 20.1 mmol/L (20.0-26.0) 07/19/21 Unknown ABG O2 Saturation 97.0 (0-100) 08/01/21 04:00 ABG O2 Content 14.3 (0.0-44) 07/19/21 Unknown POC ABG Base Excess 5.8 08/01/21 04:00 ABG Base Excess -4.5 mmol/L (-2.0-3.0) L 07/19/21 Unknown ABG Hemoglobin 11.4 (12.0-17.5) L 08/01/21 04:00 ABG Oxyhemoglobin 96.4 (94-98) 08/01/21 04:00 ABG Carboxyhemoglobin 0.8 % (0.0-5.0) 07/19/21 Unknown ABG Methemoglobin 0.3 (0.0-1.5) 08/01/21 04:00 ABG Sodium 134.4 mmol/L (136.0-145.0) L 08/01/21 04:00 ABG Potassium 4.3 mmol/L (3.40-4.50) 08/01/21 04:00 ABG Chloride 99.0 mmol/L (98-107) 08/01/21 04:00 ABG Glucose 173 mg/dL (65-95) H 08/01/21 04:00 Oxyhemoglobin 91.9 % (95.0-99.0) L 07/19/21 Unknown Carboxyhemoglobin 0.3 (0.5-1.5) L 08/01/21 04:00 FiO2 100 % 07/19/21 Unknown FiO2 % 40.0 08/01/21 04:00 Sodium 138 mmol/L (137-145) 08/02/21 05:30 Potassium 4.1 mmol/L (3.6-5.0) 08/02/21 05:30 Chloride 98.1 mmol/L (98-107) 08/02/21 05:30 Carbon Dioxide 33 mmol/L (22-30) H 08/02/21 05:30 Anion Gap 11 mmol/L 08/02/21 05:30 BUN 23 mg/dL (7-17) H 08/02/21 05:30 Creatinine 0.5 mg/dL (0.6-1.2) L 08/02/21 05:30 Estimated GFR > 60 ml/min 08/02/21 05:30 BUN/Creatinine Ratio 46 % 08/02/21 05:30 Glucose 108 mg/dL (65-100) H 08/02/21 05:30 POC Glucose 102 mg/dL (70-105) 08/02/21 04:36 Lactic Acid 1.40 mmol/L (0.7-2.0) 07/18/21 16:00 Calcium 9.7 mg/dL (8.4-10.2) 08/02/21 05:30 Phosphorus 3.30 mg/dL (2.5-4.5) 08/01/21 06:00 Magnesium 2.10 mg/dL (1.7-2.3) 08/01/21 06:00 Ferritin 244.0 ng/mL (10.0-200.0) H 08/01/21 06:00 Total Bilirubin 0.20 mg/dL (0.1-1.2) 07/22/21 04:39 AST 38 units/L (5-40) 07/22/21 04:39 ALT 29 units/L (7-56) 07/22/21 04:39 Alkaline Phosphatase 83 units/L (35-129) 07/22/21 04:39 Ammonia 37.0 umol/L (25-60) 07/18/21 16:00 Lactate Dehydrogenase 369 units/L (91-180) H 08/01/21 06:00 Total Creatine Kinase 157 units/L (30-135) H 07/18/21 16:00 Troponin T 0.106 ng/mL (0.00-0.029) H* 07/18/21 16:00 C-Reactive Protein 0.20 mg/dL (0.00-1.30) 08/01/21 06:00 Total Protein 6.4 g/dL (6.3-8.2) 07/22/21 04:39 Albumin 2.9 g/dL (3.9-5) L 07/22/21 04:39 Albumin/Globulin Ratio 0.8 % 07/22/21 04:39 Triglycerides 156 mg/dL (2-149) H 07/18/21 16:00 Cholesterol 127 mg/dL (50-199) 07/18/21 16:00 LDL Cholesterol Direct 64 mg/dL (50-130) 07/18/21 16:00 HDL Cholesterol 33 mg/dL (40-59) L 07/18/21 16:00 Cholesterol/HDL Ratio 3.84 % 07/18/21 16:00 Procalcitonin < 0.05 ng/mL (<0.15) 07/26/21 13:53 TSH 0.469 mlU/mL (0.270-4.200) 07/21/21 04:52 Free T4 1.05 ng/dL (0.76-1.46) 07/21/21 04:52 Arterial Blood Glucose 173 mg/dL (65-95) H 08/01/21 04:00 Arterial Blood Ionized Calcium 4.7 mg/dL (4.6-5.3) 08/01/21 04:00 Urine Color Yellow (Yellow) 07/18/21 Unknown Urine Turbidity Slightly-cloudy (Clear) 07/18/21 Unknown Urine pH 5.0 (5.0-7.0) 07/18/21 Unknown Ur Specific Glendo 1.020 (1.003-1.030) 07/18/21 Unknown Urine Protein >500 mg/dL (Negative) 07/18/21 Unknown Urine Glucose (UA) Neg mg/dL (Negative) 07/18/21 Unknown Urine Ketones 20 mg/dL (Negative) 07/18/21 Unknown Urine Blood Neg (Negative) 07/18/21 Unknown Urine Nitrite Neg (Negative) 07/18/21 Unknown Urine Bilirubin Neg (Negative) 07/18/21 Unknown Urine Urobilinogen < 2.0 mg/dL (<2.0) 07/18/21 Unknown Ur Leukocyte Esterase Neg (Negative) 07/18/21 Unknown Urine WBC (Auto) 9.0 /HPF (0.0-6.0) H 07/18/21 Unknown Urine RBC (Auto) 2.0 /HPF (0.0-6.0) 07/18/21 Unknown U Epithel Cells (Auto) 1.0 /HPF (0-13.0) 07/18/21 Unknown Urine Bacteria (Auto) 1+ /HPF (Negative) 07/18/21 Unknown Amorphous Crystals Few 07/18/21 Unknown Urine Mucus Few /HPF 07/18/21 Unknown Vancomycin Trough 22.9 ug/mL (5.0-20.0) H 07/25/21 04:28 Salicylates < 0.3 mg/dL (2.8-20.0) L 07/18/21 16:00 Urine Opiates Screen Negative 07/18/21 Unknown Urine Methadone Screen Negative 07/18/21 Unknown Acetaminophen 5.7 ug/mL (10.0-30.0) L 07/18/21 16:00 Ur Barbiturates Screen Negative 07/18/21 Unknown Ur Phencyclidine Scrn Negative 07/18/21 Unknown Ur Amphetamines Screen Negative 07/18/21 Unknown U Benzodiazepines Scrn Negative 07/18/21 Unknown Urine Cocaine Screen Negative 07/18/21 Unknown U Marijuana (THC) Screen Negative 07/18/21 Unknown Drugs of Abuse Note Disclamer 07/18/21 Unknown Plasma/Serum Alcohol < 0.01 % (0-0.07) 07/18/21 16:00 Coronavirus (PCR) Positive (Negative) A 07/19/21 Unknown Blood Type O POSITIVE 07/18/21 16:05 Antibody Screen Negative 07/18/21 16:05 Guzman/IV: Voiding Method Indwelling Catheter Active Medications - Current Medications Current Medications: Generic Name Dose Route Start Last Admin Trade Name Freq PRN Reason Stop Dose Admin Acetaminophen 650 mg 07/18/21 22:49 Acetaminophen 325 Mg Tab PO Q4H PRN Pain MILD(1-3)/Fever >100.5/URENA Lipase/Protease/Amylase 1 each 07/18/21 22:56 Lipase 10,500/Protease 25,000/Amylase 43,750 (Units) Dr Alvarado FEEDTUBE PRN PRN For Clogged Feeding Tube Bisacodyl 10 mg 07/27/21 09:02 07/27/21 11:16 Bisacodyl 10 Mg Rect Supp AK 10 mg QDAY PRN Administration Constip unreliev by MOM/or NPO Enoxaparin Sodium 100 mg 07/19/21 10:00 08/02/21 10:10 Enoxaparin 100 Mg/1 Ml Inj SUB-Q 100 mg Q12HR NICOLE Administration Protocol Famotidine 20 mg 07/18/21 22:00 08/02/21 10:10 Famotidine 20 Mg/2 Ml Inj IV 20 mg BID NICOLE Administration Haloperidol Lactate 5 mg 08/01/21 10:29 Haloperidol Lactate 5 Mg/1 Ml Inj IV Q6H PRN Agitation Hydralazine HCl 20 mg 08/01/21 11:00 08/02/21 10:10 Hydralazine 20 Mg/1 Ml Inj IV 20 mg Q4HR NICOLE Administration Hydrophilic Ointment 1 applic 07/18/21 14:41 Lip Therapy Vaseline TP Q2HR PRN Dry Lips Insulin Glargine 5 units 07/27/21 22:00 08/02/21 06:44 Insulin Glargine 100 Units/Ml SUB-Q Not Given QHS NICOLE Insulin Human Lispro 0 unit 07/27/21 12:00 08/02/21 06:46 Insulin Lispro 100 Unit/Ml SUB-Q Not Given Q6HR [facility] Protocol Lorazepam 1 mg 08/01/21 09:00 Lorazepam 2 Mg/Ml Vial IV Q4H PRN Anxiety Methylprednisolone Sodium Succinate 40 mg 07/27/21 14:00 08/02/21 06:45 Methylprednisolone Sod Succinate 40 Mg/1 Ml Inj IV 40 mg Q8HR NICOLE Administration Multi-Ingred Cream/Lotion/Oil/Oint 1 applic 07/18/21 14:41 Mineral Oil/Petrolatum, White Ophth Oint 3.5 Gm OU Q4HR PRN Dry Eye(s) Ondansetron HCl 4 mg 07/18/21 22:49 Ondansetron 4 Mg/2 Ml Inj IV Q8H PRN Nausea And Vomiting Oxycodone/Acetaminophen 1 tab 08/01/21 15:00 Oxycodone /Acetaminophen 5-325mg Tab PO Q6H PRN Pain, Moderate (4-6) Senna/Docusate Sodium 1 tab 07/18/21 22:00 08/02/21 10:11 Sennosides/Docusate Sodium 8.6/50 Mg Tab FEEDTUBE Not Given BID NICOLE Simple Syrup 15 ml 07/18/21 22:56 Simple Syrup 15 Ml FEEDTUBE PRN PRN Hypoglycemia Simple Syrup 30 ml 07/18/21 22:56 Simple Syrup 15 Ml FEEDTUBE PRN PRN Hypoglycemia Sodium Bicarbonate 325 mg 07/18/21 22:56 Sodium Bicarbonate 325 Mg Tab FEEDTUBE PRN PRN For Clogged Feeding Tube Sodium Chloride 10 ml 07/19/21 10:00 08/02/21 10:11 Sodium Chloride 0.9% 10 Ml Flush Syringe IV 10 ml BID NICOLE Administration Sodium Chloride 10 ml 07/18/21 22:49 Sodium Chloride 0.9% 10 Ml Flush Syringe IV PRN PRN LINE FLUSH Sodium Chloride 5 ml 07/20/21 14:38 Sodium Chloride 0.9% 1000 Ml Iv Soln IV PRN PRN ART-LINE Nutrition/Malnutrition Assess - Dietary Evaluation Nutrition/Malnutrition Findings: Nutrition Notes Start: 07/19/21 09:15 Freq: Status: Active Protocol: Document 07/29/21 11:53 MK (Rec: 07/29/21 11:55 MK [id number]) Nutrition Notes Initial or Follow up Reassessment Current Diagnosis Acute Kidney Injury,Diabetes, Hypertension,Respiratory Failure Other Pertinent Diagnosis COVID Current Diet Vital HP at 55 ml/hr Labs/Tests BUN 34 Pertinent Medications Solumedrol Height 5 ft 6 in Weight 104.8 kg [place] Body Weight (kg) 59.09 BMI 37.3 Weight Status Obese Subjective/Other Information TF remains at goal and pt tolerating. Percent of energy/protein needs met: 93%/98% Burn Absent Trauma Absent Difficulty In Swallowing Current % PO Negligible Minimum of two criteria No physical signs of malnutrition #1 Nutrition Diagnosis Inadequate oral intake Diagnosis Progress(for reassessment Continues documentation) Is patient on ventilator? Yes Is Patient Ambulatory and/or Out of Bed No REE-([facility]-confined to bed) 2000.624 Kcal/Kg value to use for calculation 14 Approximate Energy Requirements Using 1467 kcal/Kg Calculation Used for Recommendations Kcal/kg Additional Notes Protein: (>2g/kg IBW) >118g Fluid: 1 ml/kcal or per MD Nutrition Intervention Change Diet Order: Continue Vital HP Nutrition Support: Vital HP at 55 ml/hr Flush 50 ml q4h Kcal 1,320 Protein (gm) 116 Fluid (mL) 1,104 Goal #1 Meet at least 75% of protein and kcal needs via TF Anticipated Discharge Needs: Unable to determine at this time Follow-Up By: 08/03/21 Additional Comments F/u: TF tolerance and renal function - Attestation Statement I have reviewed and agreed w/ Malnutrition eval & tx plan: Yes <EDMUNDO DAS - Last Filed: 08/03/21 09:07> History Interval history: I saw and evaluated the patient. Discussed with the nurse practitioner and agree with their findings and plan as documented in this note. Hospitalist Physical - Constitutional Vitals: Temp Pulse Resp BP Pulse Ox 99.6 F 99 H 20 128/57 93 08/03/21 06:32 08/03/21 06:48 08/03/21 06:32 08/03/21 06:48 08/03/21 06:32 HEART Score - HEART Score Troponin: Troponin T 0.106 ng/mL (0.00-0.029) H* 07/18/21 16:00 Results - Labs CBC & Chem 7: 08/03/21 05:33 08/03/21 05:33 Labs: Laboratory Last Values WBC 10.1 K/mm3 (4.5-11.0) 08/03/21 05:33 RBC 3.66 M/mm3 (3.65-5.03) 08/03/21 05:33 Hgb 10.7 gm/dl (10.1-14.3) 08/03/21 05:33 Hct 32.2 % (30.3-42.9) 08/03/21 05:33 MCV 88 fl (79-97) 08/03/21 05:33 MCH 29 pg (28-32) 08/03/21 05:33 MCHC 33 % (30-34) 08/03/21 05:33 RDW 15.4 % (13.2-15.2) H 08/03/21 05:33 Plt Count 286 K/mm3 (140-440) 08/03/21 05:33 Lymph % (Auto) 10.7 % (13.4-35.0) L 07/19/21 04:59 [place] % (Auto) 4.8 % (0.0-7.3) 07/19/21 04:59 Eos % (Auto) 0.1 % (0.0-4.3) 07/19/21 04:59 Baso % (Auto) 0.1 % (0.0-1.8) 07/19/21 04:59 Lymph # (Auto) 1.1 K/mm3 (1.2-5.4) L 07/19/21 04:59 [place] # (Auto) 0.5 K/mm3 (0.0-0.8) 07/19/21 04:59 Eos # (Auto) 0.0 K/mm3 (0.0-0.4) 07/19/21 04:59 Baso # (Auto) 0.0 K/mm3 (0.0-0.1) 07/19/21 04:59 Add Manual Diff Complete 07/27/21 04:48 Total Counted 100 07/27/21 04:48 Seg Neutrophils % Bag Valver 07/27/21 04:48 Seg Neuts % (Manual) 92.0 % (40.0-70.0) H 07/27/21 04:48 Band Neutrophils % 1.0 % 07/26/21 06:07 Lymphocytes % (Manual) 3.0 % (13.4-35.0) L 07/27/21 04:48 Monocytes % (Manual) 5.0 % (0.0-7.3) 07/27/21 04:48 Metamyelocytes % 1.0 % 07/26/21 06:07 Myelocytes % 1.0 % 07/25/21 04:28 Nucleated RBC % 1.0 % (0.0-0.9) H 07/27/21 04:48 Seg Neutrophils # 8.7 K/mm3 (1.8-7.7) H 07/19/21 04:59 Seg Neutrophils # Man 15.2 K/mm3 (1.8-7.7) H 07/27/21 04:48 Band Neutrophils # 0.0 K/mm3 07/27/21 04:48 Lymphocytes # (Manual) 0.5 K/mm3 (1.2-5.4) L 07/27/21 04:48 Abs React Lymphs (Man) 0.0 K/mm3 07/27/21 04:48 Monocytes # (Manual) 0.8 K/mm3 (0.0-0.8) 07/27/21 04:48 Eosinophils # (Manual) 0.0 K/mm3 (0.0-0.4) 07/27/21 04:48 Basophils # (Manual) 0.0 K/mm3 (0.0-0.1) 07/27/21 04:48 Metamyelocytes # 0.0 K/mm3 07/27/21 04:48 Myelocytes # 0.0 K/mm3 07/27/21 04:48 Promyelocytes # 0.0 K/mm3 07/27/21 04:48 Blast Cells # 0.0 K/mm3 07/27/21 04:48 WBC Morphology Not Reportable 07/27/21 04:48 Hypersegmented Neuts Not Reportable 07/27/21 04:48 Hyposegmented Neuts Not Reportable 07/27/21 04:48 Hypogranular Neuts Not Reportable 07/27/21 04:48 Smudge Cells Not Reportable 07/27/21 04:48 Toxic Granulation Not Reportable 07/27/21 04:48 Toxic Vacuolation Not Reportable 07/27/21 04:48 Dohle Bodies Not Reportable 07/27/21 04:48 Pelger-Huet Anomaly Not Reportable 07/27/21 04:48 Alonzo Rods Not Reportable 07/27/21 04:48 Platelet Estimate Consistent w auto 07/27/21 04:48 Clumped Platelets Not Reportable 07/27/21 04:48 Plt Clumps, EDTA Not Reportable 07/27/21 04:48 Large Platelets Not Reportable 07/27/21 04:48 Giant Platelets Not Reportable 07/27/21 04:48 Platelet Satelliting Not Reportable 07/27/21 04:48 Plt Morphology Comment Not Reportable 07/27/21 04:48 RBC Morphology Normal 07/27/21 04:48 Dimorphic RBCs Not Reportable 07/27/21 04:48 Polychromasia Not Reportable 07/27/21 04:48 Hypochromasia Not Reportable 07/27/21 04:48 Poikilocytosis Not Reportable 07/27/21 04:48 Anisocytosis Not Reportable 07/27/21 04:48 Microcytosis Not Reportable 07/27/21 04:48 Macrocytosis Not Reportable 07/27/21 04:48 Spherocytes Not Reportable 07/27/21 04:48 Pappenheimer Bodies Not Reportable 07/27/21 04:48 Sickle Cells Not Reportable 07/27/21 04:48 Target Cells Not Reportable 07/27/21 04:48 Tear Drop Cells Not Reportable 07/27/21 04:48 Ovalocytes Not Reportable 07/27/21 04:48 Helmet Cells Not Reportable 07/27/21 04:48 [place] Bodies Not Reportable 07/27/21 04:48 [place] Rings Not Reportable 07/27/21 04:48 Marshall Cells Not Reportable 07/27/21 04:48 Bite Cells Not Reportable 07/27/21 04:48 Crenated Cell Not Reportable 07/27/21 04:48 Elliptocytes Not Reportable 07/27/21 04:48 Acanthocytes (Spur) Not Reportable 07/27/21 04:48 Rouleaux Not Reportable 07/27/21 04:48 Hemoglobin C Crystals Not Reportable 07/27/21 04:48 Schistocytes Not Reportable 07/27/21 04:48 Malaria parasites Not Reportable 07/27/21 04:48 Jarvis Bodies Not Reportable 07/27/21 04:48 Hem Pathologist Commnt No 07/27/21 04:48 PT 15.4 Sec. (12.2-14.9) H 08/03/21 05:33 INR 1.17 (0.87-1.13) H 08/03/21 05:33 APTT 31.9 Sec. (24.2-36.6) 07/18/21 16:00 D-Dimer 1383.44 ng/mlDDU (0-234) H 08/03/21 05:33 ABG pH 7.477 (7.320-7.450) H 08/01/21 04:00 POC ABG pCO2 41.3 mmHg (32.0-48.0) 08/01/21 04:00 ABG pCO2 35.2 mm Hg 07/19/21 Unknown POC ABG pO2 89.8 mmHg (83-108) 08/01/21 04:00 ABG pO2 64.2 mm Hg (80.0-90.0) L 07/19/21 Unknown POC ABG HCO3 29.9 08/01/21 04:00 ABG HCO3 20.1 mmol/L (20.0-26.0) 07/19/21 Unknown ABG O2 Saturation 97.0 (0-100) 08/01/21 04:00 ABG O2 Content 14.3 (0.0-44) 07/19/21 Unknown POC ABG Base Excess 5.8 08/01/21 04:00 ABG Base Excess -4.5 mmol/L (-2.0-3.0) L 07/19/21 Unknown ABG Hemoglobin 11.4 (12.0-17.5) L 08/01/21 04:00 ABG Oxyhemoglobin 96.4 (94-98) 08/01/21 04:00 ABG Carboxyhemoglobin 0.8 % (0.0-5.0) 07/19/21 Unknown ABG Methemoglobin 0.3 (0.0-1.5) 08/01/21 04:00 ABG Sodium 134.4 mmol/L (136.0-145.0) L 08/01/21 04:00 ABG Potassium 4.3 mmol/L (3.40-4.50) 08/01/21 04:00 ABG Chloride 99.0 mmol/L (98-107) 08/01/21 04:00 ABG Glucose 173 mg/dL (65-95) H 08/01/21 04:00 Oxyhemoglobin 91.9 % (95.0-99.0) L 07/19/21 Unknown Carboxyhemoglobin 0.3 (0.5-1.5) L 08/01/21 04:00 FiO2 100 % 07/19/21 Unknown FiO2 % 40.0 08/01/21 04:00 Sodium 136 mmol/L (137-145) L 08/03/21 05:33 Potassium 4.3 mmol/L (3.6-5.0) 08/03/21 05:33 Chloride 99.4 mmol/L (98-107) 08/03/21 05:33 Carbon Dioxide 29 mmol/L (22-30) 08/03/21 05:33 Anion Gap 12 mmol/L 08/03/21 05:33 BUN 28 mg/dL (7-17) H 08/03/21 05:33 Creatinine 0.6 mg/dL (0.6-1.2) 08/03/21 05:33 Estimated GFR > 60 ml/min 08/03/21 05:33 BUN/Creatinine Ratio 47 % 08/03/21 05:33 Glucose 114 mg/dL (65-100) H 08/03/21 05:33 POC Glucose 124 mg/dL (70-105) H 08/03/21 07:57 Lactic Acid 1.40 mmol/L (0.7-2.0) 07/18/21 16:00 Calcium 9.4 mg/dL (8.4-10.2) 08/03/21 05:33 Phosphorus 3.30 mg/dL (2.5-4.5) 08/01/21 06:00 Magnesium 2.10 mg/dL (1.7-2.3) 08/01/21 06:00 Ferritin 263.2 ng/mL (10.0-200.0) H 08/03/21 05:33 Total Bilirubin 0.20 mg/dL (0.1-1.2) 07/22/21 04:39 AST 38 units/L (5-40) 07/22/21 04:39 ALT 29 units/L (7-56) 07/22/21 04:39 Alkaline Phosphatase 83 units/L (35-129) 07/22/21 04:39 Ammonia 37.0 umol/L (25-60) 07/18/21 16:00 Lactate Dehydrogenase 427 units/L (91-180) H 08/03/21 05:33 Total Creatine Kinase 157 units/L (30-135) H 07/18/21 16:00 Troponin T 0.106 ng/mL (0.00-0.029) H* 07/18/21 16:00 C-Reactive Protein 0.20 mg/dL (0.00-1.30) 08/03/21 05:33 Total Protein 6.4 g/dL (6.3-8.2) 07/22/21 04:39 Albumin 2.9 g/dL (3.9-5) L 07/22/21 04:39 Albumin/Globulin Ratio 0.8 % 07/22/21 04:39 Triglycerides 156 mg/dL (2-149) H 07/18/21 16:00 Cholesterol 127 mg/dL (50-199) 07/18/21 16:00 LDL Cholesterol Direct 64 mg/dL (50-130) 07/18/21 16:00 HDL Cholesterol 33 mg/dL (40-59) L 07/18/21 16:00 Cholesterol/HDL Ratio 3.84 % 07/18/21 16:00 Procalcitonin < 0.05 ng/mL (<0.15) 07/26/21 13:53 TSH 0.469 mlU/mL (0.270-4.200) 07/21/21 04:52 Free T4 1.05 ng/dL (0.76-1.46) 07/21/21 04:52 Arterial Blood Glucose 173 mg/dL (65-95) H 08/01/21 04:00 Arterial Blood Ionized Calcium 4.7 mg/dL (4.6-5.3) 08/01/21 04:00 Urine Color Yellow (Yellow) 07/18/21 Unknown Urine Turbidity Slightly-cloudy (Clear) 07/18/21 Unknown Urine pH 5.0 (5.0-7.0) 07/18/21 Unknown Ur Specific Glendo 1.020 (1.003-1.030) 07/18/21 Unknown Urine Protein >500 mg/dL (Negative) 07/18/21 Unknown Urine Glucose (UA) Neg mg/dL (Negative) 07/18/21 Unknown Urine Ketones 20 mg/dL (Negative) 07/18/21 Unknown Urine Blood Neg (Negative) 07/18/21 Unknown Urine Nitrite Neg (Negative) 07/18/21 Unknown Urine Bilirubin Neg (Negative) 07/18/21 Unknown Urine Urobilinogen < 2.0 mg/dL (<2.0) 07/18/21 Unknown Ur Leukocyte Esterase Neg (Negative) 07/18/21 Unknown Urine WBC (Auto) 9.0 /HPF (0.0-6.0) H 07/18/21 Unknown Urine RBC (Auto) 2.0 /HPF (0.0-6.0) 07/18/21 Unknown U Epithel Cells (Auto) 1.0 /HPF (0-13.0) 07/18/21 Unknown Urine Bacteria (Auto) 1+ /HPF (Negative) 07/18/21 Unknown Amorphous Crystals Few 07/18/21 Unknown Urine Mucus Few /HPF 07/18/21 Unknown Vancomycin Trough 22.9 ug/mL (5.0-20.0) H 07/25/21 04:28 Salicylates < 0.3 mg/dL (2.8-20.0) L 07/18/21 16:00 Urine Opiates Screen Negative 07/18/21 Unknown Urine Methadone Screen Negative 07/18/21 Unknown Acetaminophen 5.7 ug/mL (10.0-30.0) L 07/18/21 16:00 Ur Barbiturates Screen Negative 07/18/21 Unknown Ur Phencyclidine Scrn Negative 07/18/21 Unknown Ur Amphetamines Screen Negative 07/18/21 Unknown U Benzodiazepines Scrn Negative 07/18/21 Unknown Urine Cocaine Screen Negative 07/18/21 Unknown U Marijuana (THC) Screen Negative 07/18/21 Unknown Drugs of Abuse Note Disclamer 07/18/21 Unknown Plasma/Serum Alcohol < 0.01 % (0-0.07) 07/18/21 16:00 Coronavirus (PCR) Positive (Negative) A 07/19/21 Unknown Blood Type O POSITIVE 07/18/21 16:05 Antibody Screen Negative 07/18/21 16:05 Guzman/IV: Voiding Method Indwelling Catheter Active Medications - Current Medications Current Medications: Generic Name Dose Route Start Last Admin Trade Name Freq PRN Reason Stop Dose Admin Acetaminophen 650 mg 07/18/21 22:49 Acetaminophen 325 Mg Tab PO Q4H PRN Pain MILD(1-3)/Fever >100.5/URENA Lipase/Protease/Amylase 1 each 07/18/21 22:56 Lipase 10,500/Protease 25,000/Amylase 43,750 (Units) Dr Alvarado FEEDTUBE PRN PRN For Clogged Feeding Tube Bisacodyl 10 mg 07/27/21 09:02 07/27/21 11:16 Bisacodyl 10 Mg Rect Supp [place] 10 mg QDAY PRN Administration Constip unreliev by MOM/or NPO Enoxaparin Sodium 100 mg 07/19/21 10:00 08/02/21 21:08 Enoxaparin 100 Mg/1 Ml Inj SUB-Q 100 mg Q12HR [facility] Administration Protocol Famotidine 20 mg 07/18/21 22:00 08/02/21 21:09 Famotidine 20 Mg/2 Ml Inj IV 20 mg BID NICOLE Administration Haloperidol Lactate 5 mg 08/01/21 10:29 Haloperidol Lactate 5 Mg/1 Ml Inj IV Q6H PRN Agitation Hydralazine HCl 20 mg 08/01/21 11:00 08/03/21 06:48 Hydralazine 20 Mg/1 Ml Inj IV Not Given Q4HR [facility] Hydrophilic Ointment 1 applic 07/18/21 14:41 Lip Therapy Vaseline TP Q2HR PRN Dry Lips Insulin Glargine 5 units 07/27/21 22:00 08/02/21 21:16 Insulin Glargine 100 Units/Ml SUB-Q Not Given QHS [facility] Insulin Human Lispro 0 unit 07/27/21 12:00 08/03/21 06:48 Insulin Lispro 100 Unit/Ml SUB-Q Not Given Q6HR [facility] Protocol Methylprednisolone Sodium Succinate 40 mg 07/27/21 14:00 08/03/21 05:45 Methylprednisolone Sod Succinate 40 Mg/1 Ml Inj IV 40 mg Q8HR [facility] Administration Multi-Ingred Cream/Lotion/Oil/Oint 1 applic 07/18/21 14:41 Mineral Oil/Petrolatum, White Ophth Oint 3.5 Gm OU Q4HR PRN Dry Eye(s) Ondansetron HCl 4 mg 07/18/21 22:49 Ondansetron 4 Mg/2 Ml Inj IV Q8H PRN Nausea And Vomiting Oxycodone/Acetaminophen 1 tab 08/01/21 15:00 Oxycodone /Acetaminophen 5-325mg Tab PO Q6H PRN Pain, Moderate (4-6) Nutrition/Malnutrition Assess - Dietary Evaluation Nutrition/Malnutrition Findings: Nutrition Notes Start: 07/19/21 09:15 Freq: Status: Active Protocol: Document 07/29/21 11:53 MK (Rec: 07/29/21 11:55 MK [id number]) Nutrition Notes Initial or Follow up Reassessment Current Diagnosis Acute Kidney Injury,Diabetes, Hypertension,Respiratory Failure Other Pertinent Diagnosis COVID Current Diet Vital HP at 55 ml/hr Labs/Tests BUN 34 Pertinent Medications Solumedrol Height 5 ft 6 in Weight 104.8 kg [place] Body Weight (kg) 59.09 BMI 37.3 Weight Status Obese Subjective/Other Information TF remains at goal and pt tolerating. Percent of energy/protein needs met: 93%/98% Burn Absent Trauma Absent Difficulty In Swallowing Current % PO Negligible Minimum of two criteria No physical signs of malnutrition #1 Nutrition Diagnosis Inadequate oral intake Diagnosis Progress(for reassessment Continues documentation) Is patient on ventilator? Yes Is Patient Ambulatory and/or Out of Bed No REE-([facility]-confined to bed) 2000.624 Kcal/Kg value to use for calculation 14 Approximate Energy Requirements Using 1467 kcal/Kg Calculation Used for Recommendations Kcal/kg Additional Notes Protein: (>2g/kg IBW) >118g Fluid: 1 ml/kcal or per MD Nutrition Intervention Change Diet Order: Continue Vital HP Nutrition Support: Vital HP at 55 ml/hr Flush 50 ml q4h Kcal 1,320 Protein (gm) 116 Fluid (mL) 1,104 Goal #1 Meet at least 75% of protein and kcal needs via TF Anticipated Discharge Needs: Unable to determine at this time Follow-Up By: 08/03/21 Additional Comments F/u: TF tolerance and renal function
--- NOTE | 2021-08-02 11:22 | Progress Note ---
Assessment and Plan - Patient Problems (1) Acute respiratory failure due to COVID-19 Current Visit: Yes Status: Acute Plan to address problem: Status post respiratory failure, continue management by internal medicine. (2) Multiple pulmonary emboli Current Visit: Yes Status: Acute Plan to address problem: Continue anticoagulation management. (3) Right ventricular thrombus Current Visit: Yes Status: Acute Plan to address problem: Continue anticoagulation management. Subjective Date of service: 08/02/21 Principal diagnosis: COVID pneumonia Interval history: Patient was extubated yesterday, currently breathing comfortably on bedrest, no cardiac complaints. On the quality assurance monitor chassis, she is a stable sinus rhythm at 99. A twelve-lead EKG done earlier this morning also shows a stable sinus rhythm, with poor R wave progression, no acute changes, benign ECG. Objective Vital Signs Temp Pulse Pulse Resp BP Pulse Ox 08/02/21 10:10 103 H 132/116 08/02/21 09:16 100 H 19 125/80 90 08/02/21 09:14 91 08/02/21 09:00 106 H 16 139/75 90 08/02/21 08:46 99 H 17 139/75 89 08/02/21 08:30 98 H 21 139/75 89 08/02/21 08:16 97 H 12 139/75 91 08/02/21 08:00 98.6 F 107 H 105 H 15 139/75 90 08/02/21 07:46 107 H 17 125/67 90 08/02/21 07:30 106 H 10 L 125/67 91 08/02/21 07:16 113 H 12 125/67 91 08/02/21 07:00 112 H 20 150/83 91 08/02/21 06:46 104 H 14 150/83 91 08/02/21 06:43 120 H 135/73 08/02/21 06:42 99 H 149/43 08/02/21 06:30 74 18 150/83 91 08/02/21 06:16 73 29 H 150/83 91 08/02/21 06:00 96 H 13 137/77 92 08/02/21 05:46 69 18 137/77 91 08/02/21 05:30 81 15 137/77 89 08/02/21 05:16 100 H 21 137/77 91 08/02/21 05:00 99 H 19 151/79 90 08/02/21 04:46 97 H 14 151/79 89 08/02/21 04:30 97 H 11 L 151/79 90 08/02/21 04:16 78 11 L 151/79 91 08/02/21 04:00 74 101 H 19 146/74 93 08/02/21 03:46 73 17 146/74 91 08/02/21 03:30 76 12 146/74 91 08/02/21 03:16 77 28 H 146/74 91 08/02/21 03:03 98.9 F 08/02/21 03:00 76 17 146/74 90 08/02/21 02:46 91 H 20 146/74 90 08/02/21 02:30 82 17 146/74 92 08/02/21 02:16 74 21 146/74 89 08/02/21 02:00 72 24 145/80 91 08/02/21 01:46 73 14 145/80 91 08/02/21 01:30 74 17 145/80 91 08/02/21 01:16 78 13 145/80 91 08/02/21 01:00 98 H 15 138/74 93 08/02/21 00:46 94 H 9 L 138/74 89 08/02/21 00:30 99 H 10 L 92 08/02/21 00:16 90 12 138/74 92 08/02/21 00:00 94 H 100 H 15 138/74 90 08/01/21 23:45 78 18 129/77 91 08/01/21 23:39 100.2 F H 08/01/21 23:31 94 H 21 129/77 91 08/01/21 23:15 92 H 16 129/77 92 08/01/21 23:00 105 H 13 129/77 86 08/01/21 22:45 106 H 29 H 131/60 90 08/01/21 22:31 92 H 18 131/60 92 08/01/21 22:15 101 H 24 131/60 92 08/01/21 22:00 102 H 30 H 131/60 88 08/01/21 21:45 99 H 23 133/70 91 08/01/21 21:31 108 H 13 133/70 91 08/01/21 21:15 98 H 16 126/66 90 08/01/21 21:00 97 H 15 126/66 89 08/01/21 20:45 112 H 15 167/90 89 08/01/21 20:37 114 H 24 133/70 89 08/01/21 20:31 119 H 22 167/90 90 08/01/21 20:15 104 H 35 H 133/70 93 08/01/21 20:00 114 H 108 H 29 H 133/70 91 08/01/21 19:53 91 08/01/21 19:45 120 H 21 167/90 92 08/01/21 19:39 98.9 F 08/01/21 19:31 115 H 21 167/90 93 08/01/21 19:17 104 H 167/84 08/01/21 19:15 101 H 20 167/90 94 08/01/21 19:01 109 H 35 H 167/90 79 L 08/01/21 18:45 111 H 23 150/87 91 08/01/21 18:31 120 H 18 154/90 92 08/01/21 18:15 112 H 32 H 154/90 92 08/01/21 18:00 117 H 33 H 150/87 90 08/01/21 17:45 124 H 19 154/90 91 08/01/21 17:31 106 H 31 H 154/90 90 08/01/21 17:15 97 H 36 H 154/90 90 08/01/21 17:00 103 H 41 H 154/90 84 08/01/21 16:45 103 H 23 151/83 90 08/01/21 16:31 114 H 26 H 151/83 87 08/01/21 16:15 102 H 37 H 151/83 88 08/01/21 16:00 99.0 F 106 H 106 H 36 H 144/74 88 08/01/21 15:45 117 H 40 H 151/83 89 08/01/21 15:39 93 08/01/21 15:31 115 H 24 151/83 93 08/01/21 15:15 114 H 27 H 151/83 93 08/01/21 15:00 69 17 151/83 91 08/01/21 14:52 84 158/83 08/01/21 14:45 70 25 H 167/97 86 08/01/21 14:31 76 26 H 167/97 90 08/01/21 14:15 119 H 20 167/97 93 08/01/21 14:01 98 H 18 158/83 93 08/01/21 13:45 74 14 167/97 93 08/01/21 13:31 106 H 20 167/97 93 08/01/21 13:15 120 H 14 167/97 91 08/01/21 13:00 115 H 30 H 167/97 85 08/01/21 12:45 112 H 16 171/102 82 L 08/01/21 12:31 121 H 16 171/102 85 08/01/21 12:15 121 H 22 171/102 81 L 08/01/21 12:00 99.0 F 136 H 18 171/102 81 L 08/01/21 11:45 137 H 23 169/101 97 08/01/21 11:31 122 H 25 H 169/101 95 - Physical Examination Narrative exam: Full physical exam deferred due to acute Covid pneumonia. General: Other (extubated) Neck: Positive: neck supple Abdomen: Positive: Soft - Labs and Meds CBC 08/02/21 Range/Units 05:30 WBC 11.2 H (4.5-11.0) K/mm3 RBC 3.79 (3.65-5.03) M/mm3 Hgb 10.9 (10.1-14.3) gm/dl Hct 32.9 (30.3-42.9) % Plt Count 251 (140-440) K/mm3 Comprehensive Metabolic Panel 08/02/21 Range/Units 05:30 Sodium 138 (137-145) mmol/L Potassium 4.1 (3.6-5.0) mmol/L Chloride 98.1 (98-107) mmol/L Carbon Dioxide 33 H (22-30) mmol/L BUN 23 H (7-17) mg/dL Creatinine 0.5 L (0.6-1.2) mg/dL Glucose 108 H (65-100) mg/dL Calcium 9.7 (8.4-10.2) mg/dL - Imaging and Cardiology EKG: report reviewed
--- NOTE | 2021-08-02 11:51 | Electrocardiograph Report ---
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
--- NOTE | 2021-08-02 12:08 | Progress Note ---
Assessment and Plan 55 y/o obese female with acute respiratory failure, pulmonary embolism, now with renal failure, most likely all secondary to COVID 19 08/02/21: Successful extubation with weaning of oxygen. Still confused, most likely ICU delirium. Awaiting speech eval. If able to swallow suggest scheduled BID seroquel (50 BID). Spoke with cards. They only feel we need to treat the PE and DVT as this thrombus is likely from passing through the heart from the venous system. If able to swallow will do Eliquis if she can afford it. Given stability and improvement, will transfer to COVID floor with telemetry. Needs PT/OT as she may need rehab. Guarded prognosis still but promising. 08/01/21: Will attempt extubation this am. Ordered bipap therapy for PRN. Likely will need bp control but will address once extubated. Called family to update and then will call back once off the vent. 07/31/21: Drop PEEP to 6 later this afternoon and attempt to wean sedation to off. patient will likely not tolerate this. If she does then will try PSV this afternoon. If not, will plan to extubate with bipap available PRN early tomorrow morning. Discussed this with daughters over the phone. Asked nursing to address transducer with art line. I suspect the positioning is incorrect. 07/30/21: Will wean PEEP to 10 this afternoon. If tolerates then around 6-8 PM may drop to 8. Would not go any further than that today. Keep FiO2 at 40%. Once PEEP around 6, can start to lighten sedation and try PSV trials. Prognosis is still guarded. Spoke with family over the phone to update them on progress but also explain to them their family member is still gravely ill. Keep steroids at current dose at leas through the weekend. 07/29/21: Wean FiO2 as tolerated. PaO2 is good. Continue current dose of steroids. Changed Hydralazine. Continue anticoagulation. May be able to start weaning PEEP tomorrow. 07/28/21: Repeat CXR today to check ET tube. Wean steroids when able. Continue to wean FiO2 as tolerated. Do not move PEEP until FiO2 is at 45-50%. Guarded prognosis remains. Will call family now. 07/27/21: Ok with advancing ET tube 2-3 cm. Continue to wean FiO2 as tolerated. Repeat CXR post advancement of ET tube. Dropped steroids too 40q8 07/26/21: Back down to 65% like on 07/22 but PEEP is at 12. Will monitor closely. COntinue current level of sedation and high dose steroids. Prognosis is very very guarded. 07/23/21: Dropped FiO2 to 70. Hopeful to wean back down. Keep peep elevated until FiO2 at 50-55%. Continue High dose steroids. Keep RASS at -4. Na is better. Will stop D5W. Updated Daughter (Linda) and GodDaughter over the phone. If someone could please call them at least one day over the weekend I will call them again on Monday. Prognosis remains very guarded. Explained to them the high mortality rate associated with COVID and mechanical ventilation. 07/22/21: Dropped Fio2 to 65. Continue to wean for sats >88%. keep elevated peep until FiO2 around 50-55% so hopefully in the next 24-36 hours we can get there. Continue sedation to keep rass at -4. Continue high dose steroids. Will continue D5W for now until Free water can control sodium. need CBC in the am along with BMP. Prognosis still remains guarded. Continue lovenox 07/21/21: Dropped FiO2 to 80%. Continue to wean for sats >88%. Keep peep elevated until FiO2 around 50-55%. Continue remdesivir and adequate levels of sedation. Continue high dose steroids. No proning for now. Continue therapeutic lovenox. Prognosis remains guarded. 07/20/21: COVID positive. Started Remdesivir. Renal function improved. COntinue high dose steroids at current dosing for now. Suggest repeat ABG later this afternoon if able, may need art line but BP stable for now. No proning. Agree with therapeutic Lovenox. Guarded prognosis. 1. Follow up COVID testing, continue isolation 2. Agree with high dose IV steroids, if positive, will change to solumedrol 125q8 3. If positive then would need remdesivir and Actemra, hopefully still a candidate given bump in renal function 4. Unable to prone patient at moment, but did increase PEEP to 20 and ordered repeat ABG at 1400 5 Very very guarded prognosis CCT 31 minutes. Subjective Date of service: 08/02/21 Principal diagnosis: COVID pneumonia Interval history: Down to 5 liters. Was down to 4 but had to be bumped up to 5. No fever. WC is 30K. No diarrhea. Still confused. Objective Vital Signs - 12hr 08/02/21 08/02/21 08/02/21 00:16 00:30 00:46 Temperature Pulse Rate 90 99 H 94 H Pulse Rate [ From Monitor] Respiratory 12 10 L 9 L Rate Blood Pressure 138/74 138/74 O2 Sat by Pulse 92 92 89 Oximetry 08/02/21 08/02/21 08/02/21 01:00 01:16 01:30 Temperature Pulse Rate 98 H 78 74 Pulse Rate [ From Monitor] Respiratory 15 13 17 Rate Blood Pressure 138/74 145/80 145/80 O2 Sat by Pulse 93 91 91 Oximetry 08/02/21 08/02/21 08/02/21 01:46 02:00 02:16 Temperature Pulse Rate 73 72 74 Pulse Rate [ From Monitor] Respiratory 14 24 21 Rate Blood Pressure 145/80 145/80 146/74 O2 Sat by Pulse 91 91 89 Oximetry 08/02/21 08/02/21 08/02/21 02:30 02:46 03:00 Temperature Pulse Rate 82 91 H 76 Pulse Rate [ From Monitor] Respiratory 17 20 17 Rate Blood Pressure 146/74 146/74 146/74 O2 Sat by Pulse 92 90 90 Oximetry 08/02/21 08/02/21 08/02/21 03:03 03:16 03:30 Temperature 98.9 F Pulse Rate 77 76 Pulse Rate [ From Monitor] Respiratory 28 H 12 Rate Blood Pressure 146/74 146/74 O2 Sat by Pulse 91 91 Oximetry 08/02/21 08/02/21 08/02/21 03:46 04:00 04:16 Temperature Pulse Rate 73 74 78 Pulse Rate [ 101 H From Monitor] Respiratory 17 19 11 L Rate Blood Pressure 146/74 146/74 151/79 O2 Sat by Pulse 91 93 91 Oximetry 08/02/21 08/02/21 08/02/21 04:30 04:46 05:00 Temperature Pulse Rate 97 H 97 H 99 H Pulse Rate [ From Monitor] Respiratory 11 L 14 19 Rate Blood Pressure 151/79 151/79 151/79 O2 Sat by Pulse 90 89 90 Oximetry 08/02/21 08/02/21 08/02/21 05:16 05:30 05:46 Temperature Pulse Rate 100 H 81 69 Pulse Rate [ From Monitor] Respiratory 21 15 18 Rate Blood Pressure 137/77 137/77 137/77 O2 Sat by Pulse 91 89 91 Oximetry 08/02/21 08/02/21 08/02/21 06:00 06:16 06:30 Temperature Pulse Rate 96 H 73 74 Pulse Rate [ From Monitor] Respiratory 13 29 H 18 Rate Blood Pressure 137/77 150/83 150/83 O2 Sat by Pulse 92 91 91 Oximetry 08/02/21 08/02/21 08/02/21 06:42 06:43 06:46 Temperature Pulse Rate 99 H 120 H 104 H Pulse Rate [ From Monitor] Respiratory 14 Rate Blood Pressure 149/43 135/73 150/83 O2 Sat by Pulse 91 Oximetry 08/02/21 08/02/21 08/02/21 07:00 07:16 07:30 Temperature Pulse Rate 112 H 113 H 106 H Pulse Rate [ From Monitor] Respiratory 20 12 10 L Rate Blood Pressure 150/83 125/67 125/67 O2 Sat by Pulse 91 91 91 Oximetry 08/02/21 08/02/21 08/02/21 07:46 08:00 08:16 Temperature 98.6 F Pulse Rate 107 H 107 H 97 H Pulse Rate [ 105 H From Monitor] Respiratory 17 15 12 Rate Blood Pressure 125/67 139/75 139/75 O2 Sat by Pulse 90 90 91 Oximetry 08/02/21 08/02/21 08/02/21 08:30 08:46 09:00 Temperature Pulse Rate 98 H 99 H 106 H Pulse Rate [ From Monitor] Respiratory 21 17 16 Rate Blood Pressure 139/75 139/75 139/75 O2 Sat by Pulse 89 89 90 Oximetry 08/02/21 08/02/21 08/02/21 09:14 09:16 10:10 Temperature Pulse Rate 100 H 103 H Pulse Rate [ From Monitor] Respiratory 19 Rate Blood Pressure 125/80 132/116 O2 Sat by Pulse 91 90 Oximetry Constitutional: no acute distress, comatose ENT: other (orally intubated and sedated) Ascultation: Bilateral: diminished breath sounds Cardiovascular: regular rate and rhythm Gastrointestinal: normoactive bowel sounds, soft, non-tender Integumentary: normal Extremities: no cyanosis Neurologic: other (Sedated) CBC and BMP: 08/02/21 05:30 08/02/21 05:30 ABG, PT/INR, D-dimer: ABG ABG pH 7.477 (7.320-7.450) H 08/01/21 04:00 POC ABG pCO2 41.3 mmHg (32.0-48.0) 08/01/21 04:00 ABG pCO2 35.2 mm Hg 07/19/21 Unknown POC ABG pO2 89.8 mmHg (83-108) 08/01/21 04:00 ABG pO2 64.2 mm Hg (80.0-90.0) L 07/19/21 Unknown POC ABG HCO3 29.9 08/01/21 04:00 ABG O2 Saturation 97.0 (0-100) 08/01/21 04:00 PT/INR, D-dimer PT 15.1 Sec. (12.2-14.9) H 07/18/21 16:00 INR 1.13 (0.87-1.13) 07/18/21 16:00 D-Dimer 1503.43 ng/mlDDU (0-234) H 08/01/21 06:00 Abnormal lab findings: Abnormal Labs 07/18/21 07/18/21 07/18/21 16:00 16:00 16:00 WBC RBC Hgb Hct RDW 15.3 H Lymph % (Auto) 7.9 L Lymph # (Auto) 0.8 L Seg Neutrophils % 86.3 H Seg Neuts % (Manual) Lymphocytes % (Manual) Nucleated RBC % Seg Neutrophils # 9.0 H Seg Neutrophils # Man Lymphocytes # (Manual) Monocytes # (Manual) PT 15.1 H D-Dimer > 52349 H ABG pH POC ABG pCO2 POC ABG pO2 ABG pO2 ABG O2 Saturation ABG Base Excess ABG Hemoglobin ABG Oxyhemoglobin ABG Sodium ABG Chloride ABG Glucose Oxyhemoglobin Carboxyhemoglobin Sodium Potassium 3.5 L Chloride Carbon Dioxide 20 L BUN 19 H Creatinine Glucose 140 H POC Glucose Calcium Magnesium Ferritin AST 43 H Lactate Dehydrogenase 705 H Total Creatine Kinase 157 H Troponin T 0.106 H* C-Reactive Protein 33.00 H Total Protein Albumin 3.2 L Triglycerides 156 H HDL Cholesterol 33 L Arterial Blood Glucose Arterial Blood Ionized Calcium Urine WBC (Auto) Vancomycin Trough Salicylates Acetaminophen Coronavirus (PCR) 07/18/21 07/18/21 07/18/21 16:00 16:00 16:00 WBC RBC Hgb Hct RDW Lymph % (Auto) Lymph # (Auto) Seg Neutrophils % Seg Neuts % (Manual) Lymphocytes % (Manual) Nucleated RBC % Seg Neutrophils # Seg Neutrophils # Man Lymphocytes # (Manual) Monocytes # (Manual) PT D-Dimer ABG pH POC ABG pCO2 POC ABG pO2 ABG pO2 ABG O2 Saturation ABG Base Excess ABG Hemoglobin ABG Oxyhemoglobin ABG Sodium ABG Chloride ABG Glucose Oxyhemoglobin Carboxyhemoglobin Sodium Potassium Chloride Carbon Dioxide BUN Creatinine Glucose POC Glucose Calcium Magnesium Ferritin 657.0 H AST Lactate Dehydrogenase Total Creatine Kinase Troponin T C-Reactive Protein Total Protein Albumin Triglycerides HDL Cholesterol Arterial Blood Glucose Arterial Blood Ionized Calcium Urine WBC (Auto) Vancomycin Trough Salicylates < 0.3 L Acetaminophen 5.7 L Coronavirus (PCR) 07/18/21 07/18/21 07/19/21 Unknown Unknown 04:33 WBC RBC Hgb Hct RDW Lymph % (Auto) Lymph # (Auto) Seg Neutrophils % Seg Neuts % (Manual) Lymphocytes % (Manual) Nucleated RBC % Seg Neutrophils # Seg Neutrophils # Man Lymphocytes # (Manual) Monocytes # (Manual) PT D-Dimer ABG pH 7.275 L POC ABG pCO2 POC ABG pO2 68.7 L 53.1 L ABG pO2 ABG O2 Saturation ABG Base Excess ABG Hemoglobin ABG Oxyhemoglobin 88.3 L 85.3 L ABG Sodium ABG Chloride 109.0 H ABG Glucose 170 H 150 H Oxyhemoglobin Carboxyhemoglobin 0 L 0.3 L Sodium Potassium Chloride Carbon Dioxide BUN Creatinine Glucose POC Glucose Calcium Magnesium Ferritin AST Lactate Dehydrogenase Total Creatine Kinase Troponin T C-Reactive Protein Total Protein Albumin Triglycerides HDL Cholesterol Arterial Blood Glucose 170 H 150 H Arterial Blood Ionized Calcium Urine WBC (Auto) 9.0 H Vancomycin Trough Salicylates Acetaminophen Coronavirus (PCR) 07/19/21 07/19/21 07/19/21 04:59 04:59 Unknown WBC RBC Hgb Hct RDW 16.0 H Lymph % (Auto) 10.7 L Lymph # (Auto) 1.1 L Seg Neutrophils % 84.3 H Seg Neuts % (Manual) Lymphocytes % (Manual) Nucleated RBC % Seg Neutrophils # 8.7 H Seg Neutrophils # Man Lymphocytes # (Manual) Monocytes # (Manual) PT D-Dimer ABG pH POC ABG pCO2 POC ABG pO2 ABG pO2 ABG O2 Saturation ABG Base Excess ABG Hemoglobin ABG Oxyhemoglobin ABG Sodium ABG Chloride ABG Glucose Oxyhemoglobin Carboxyhemoglobin Sodium Potassium Chloride 108.8 H Carbon Dioxide 21 L BUN 28 H Creatinine 1.8 H Glucose 145 H POC Glucose Calcium 7.8 L Magnesium Ferritin AST Lactate Dehydrogenase Total Creatine Kinase Troponin T C-Reactive Protein Total Protein 6.2 L Albumin 3.2 L Triglycerides HDL Cholesterol Arterial Blood Glucose Arterial Blood Ionized Calcium Urine WBC (Auto) Vancomycin Trough Salicylates Acetaminophen Coronavirus (PCR) Positive A 07/19/21 07/20/21 07/20/21 Unknown 00:14 04:44 WBC RBC Hgb Hct RDW Lymph % (Auto) Lymph # (Auto) Seg Neutrophils % Seg Neuts % (Manual) Lymphocytes % (Manual) Nucleated RBC % Seg Neutrophils # Seg Neutrophils # Man Lymphocytes # (Manual) Monocytes # (Manual) PT D-Dimer ABG pH POC ABG pCO2 POC ABG pO2 ABG pO2 64.2 L ABG O2 Saturation 93.2 L ABG Base Excess -4.5 L ABG Hemoglobin 11.0 L ABG Oxyhemoglobin ABG Sodium ABG Chloride ABG Glucose Oxyhemoglobin 91.9 L Carboxyhemoglobin Sodium Potassium Chloride 112.2 H Carbon Dioxide BUN 38 H Creatinine 1.3 H Glucose 156 H POC Glucose 164 H Calcium 8.1 L Magnesium 3.10 H Ferritin AST Lactate Dehydrogenase Total Creatine Kinase Troponin T C-Reactive Protein Total Protein Albumin 2.8 L Triglycerides HDL Cholesterol Arterial Blood Glucose Arterial Blood Ionized Calcium Urine WBC (Auto) Vancomycin Trough Salicylates Acetaminophen Coronavirus (PCR) 07/20/21 07/20/21 07/20/21 04:44 05:00 05:40 WBC RBC 3.42 L Hgb 9.7 L Hct 29.3 L RDW 16.1 H Lymph % (Auto) Lymph # (Auto) Seg Neutrophils % Seg Neuts % (Manual) Lymphocytes % (Manual) Nucleated RBC % Seg Neutrophils # Seg Neutrophils # Man Lymphocytes # (Manual) Monocytes # (Manual) PT D-Dimer ABG pH POC ABG pCO2 POC ABG pO2 139.0 H ABG pO2 ABG O2 Saturation ABG Base Excess ABG Hemoglobin 10.1 L ABG Oxyhemoglobin ABG Sodium ABG Chloride 113.0 H ABG Glucose 155 H Oxyhemoglobin Carboxyhemoglobin 0.3 L Sodium Potassium Chloride Carbon Dioxide BUN Creatinine Glucose POC Glucose 164 H Calcium Magnesium Ferritin AST Lactate Dehydrogenase Total Creatine Kinase Troponin T C-Reactive Protein Total Protein Albumin Triglycerides HDL Cholesterol Arterial Blood Glucose 155 H Arterial Blood Ionized Calcium 4.4 L Urine WBC (Auto) Vancomycin Trough Salicylates Acetaminophen Coronavirus (PCR) 07/20/21 07/20/21 07/21/21 11:40 17:48 03:31 WBC RBC Hgb Hct RDW Lymph % (Auto) Lymph # (Auto) Seg Neutrophils % Seg Neuts % (Manual) Lymphocytes % (Manual) Nucleated RBC % Seg Neutrophils # Seg Neutrophils # Man Lymphocytes # (Manual) Monocytes # (Manual) PT D-Dimer ABG pH POC ABG pCO2 POC ABG pO2 ABG pO2 ABG O2 Saturation ABG Base Excess ABG Hemoglobin ABG Oxyhemoglobin ABG Sodium ABG Chloride ABG Glucose Oxyhemoglobin Carboxyhemoglobin Sodium Potassium Chloride Carbon Dioxide BUN Creatinine Glucose POC Glucose 137 H 143 H 157 H Calcium Magnesium Ferritin AST Lactate Dehydrogenase Total Creatine Kinase Troponin T C-Reactive Protein Total Protein Albumin Triglycerides HDL Cholesterol Arterial Blood Glucose Arterial Blood Ionized Calcium Urine WBC (Auto) Vancomycin Trough Salicylates Acetaminophen Coronavirus (PCR) 07/21/21 07/21/21 07/21/21 04:30 04:52 05:21 WBC RBC Hgb Hct RDW Lymph % (Auto) Lymph # (Auto) Seg Neutrophils % Seg Neuts % (Manual) Lymphocytes % (Manual) Nucleated RBC % Seg Neutrophils # Seg Neutrophils # Man Lymphocytes # (Manual) Monocytes # (Manual) PT D-Dimer ABG pH POC ABG pCO2 31.7 L POC ABG pO2 77.6 L ABG pO2 ABG O2 Saturation ABG Base Excess ABG Hemoglobin 10.2 L ABG Oxyhemoglobin ABG Sodium 148.3 H ABG Chloride 120.0 H ABG Glucose 168 H Oxyhemoglobin Carboxyhemoglobin 0.2 L Sodium 150 H Potassium Chloride 115.7 H Carbon Dioxide BUN 49 H Creatinine 1.4 H Glucose 185 H POC Glucose 170 H Calcium 8.3 L Magnesium Ferritin AST Lactate Dehydrogenase Total Creatine Kinase Troponin T C-Reactive Protein Total Protein Albumin 3.0 L Triglycerides HDL Cholesterol Arterial Blood Glucose 168 H Arterial Blood Ionized Calcium 4.4 L Urine WBC (Auto) Vancomycin Trough Salicylates Acetaminophen Coronavirus (PCR) 07/21/21 07/21/21 07/21/21 11:17 17:26 23:40 WBC RBC Hgb Hct RDW Lymph % (Auto) Lymph # (Auto) Seg Neutrophils % Seg Neuts % (Manual) Lymphocytes % (Manual) Nucleated RBC % Seg Neutrophils # Seg Neutrophils # Man Lymphocytes # (Manual) Monocytes # (Manual) PT D-Dimer ABG pH POC ABG pCO2 POC ABG pO2 ABG pO2 ABG O2 Saturation ABG Base Excess ABG Hemoglobin ABG Oxyhemoglobin ABG Sodium ABG Chloride ABG Glucose Oxyhemoglobin Carboxyhemoglobin Sodium Potassium Chloride Carbon Dioxide BUN Creatinine Glucose POC Glucose 176 H 184 H 161 H Calcium Magnesium Ferritin AST Lactate Dehydrogenase Total Creatine Kinase Troponin T C-Reactive Protein Total Protein Albumin Triglycerides HDL Cholesterol Arterial Blood Glucose Arterial Blood Ionized Calcium Urine WBC (Auto) Vancomycin Trough Salicylates Acetaminophen Coronavirus (PCR) 07/22/21 07/22/21 07/22/21 03:30 04:39 05:29 WBC RBC Hgb Hct RDW Lymph % (Auto) Lymph # (Auto) Seg Neutrophils % Seg Neuts % (Manual) Lymphocytes % (Manual) Nucleated RBC % Seg Neutrophils # Seg Neutrophils # Man Lymphocytes # (Manual) Monocytes # (Manual) PT D-Dimer ABG pH POC ABG pCO2 POC ABG pO2 67.4 L ABG pO2 ABG O2 Saturation ABG Base Excess ABG Hemoglobin 10.4 L ABG Oxyhemoglobin 91.8 L ABG Sodium 118.4 L ABG Chloride 114.0 H ABG Glucose 189 H Oxyhemoglobin Carboxyhemoglobin 0.2 L Sodium 146 H Potassium Chloride 112.8 H Carbon Dioxide 21 L BUN 46 H Creatinine Glucose 191 H POC Glucose 191 H Calcium Magnesium Ferritin AST Lactate Dehydrogenase Total Creatine Kinase Troponin T C-Reactive Protein Total Protein Albumin 2.9 L Triglycerides HDL Cholesterol Arterial Blood Glucose 189 H Arterial Blood Ionized Calcium 4.5 L Urine WBC (Auto) Vancomycin Trough Salicylates Acetaminophen Coronavirus (PCR) 07/22/21 07/22/21 07/22/21 12:17 17:54 23:34 WBC RBC Hgb Hct RDW Lymph % (Auto) Lymph # (Auto) Seg Neutrophils % Seg Neuts % (Manual) Lymphocytes % (Manual) Nucleated RBC % Seg Neutrophils # Seg Neutrophils # Man Lymphocytes # (Manual) Monocytes # (Manual) PT D-Dimer ABG pH POC ABG pCO2 POC ABG pO2 ABG pO2 ABG O2 Saturation ABG Base Excess ABG Hemoglobin ABG Oxyhemoglobin ABG Sodium ABG Chloride ABG Glucose Oxyhemoglobin Carboxyhemoglobin Sodium Potassium Chloride Carbon Dioxide BUN Creatinine Glucose POC Glucose 206 H 213 H 164 H Calcium Magnesium Ferritin AST Lactate Dehydrogenase Total Creatine Kinase Troponin T C-Reactive Protein Total Protein Albumin Triglycerides HDL Cholesterol Arterial Blood Glucose Arterial Blood Ionized Calcium Urine WBC (Auto) Vancomycin Trough Salicylates Acetaminophen Coronavirus (PCR) 07/23/21 07/23/21 07/23/21 03:30 05:21 09:02 WBC RBC Hgb Hct RDW Lymph % (Auto) Lymph # (Auto) Seg Neutrophils % Seg Neuts % (Manual) Lymphocytes % (Manual) Nucleated RBC % Seg Neutrophils # Seg Neutrophils # Man Lymphocytes # (Manual) Monocytes # (Manual) PT D-Dimer ABG pH POC ABG pCO2 POC ABG pO2 70.9 L ABG pO2 ABG O2 Saturation ABG Base Excess ABG Hemoglobin 10.9 L ABG Oxyhemoglobin 92.9 L ABG Sodium 130.2 L ABG Chloride 109.0 H ABG Glucose 177 H Oxyhemoglobin Carboxyhemoglobin 0.1 L Sodium Potassium 5.1 H Chloride Carbon Dioxide BUN 32 H Creatinine Glucose 200 H POC Glucose 191 H Calcium Magnesium Ferritin AST Lactate Dehydrogenase Total Creatine Kinase Troponin T C-Reactive Protein Total Protein Albumin Triglycerides HDL Cholesterol Arterial Blood Glucose 177 H Arterial Blood Ionized Calcium 4.3 L Urine WBC (Auto) Vancomycin Trough Salicylates Acetaminophen Coronavirus (PCR) 07/23/21 07/23/21 07/23/21 09:02 11:34 17:52 WBC 13.8 H RBC Hgb Hct RDW 15.7 H Lymph % (Auto) Lymph # (Auto) Seg Neutrophils % Seg Neuts % (Manual) Lymphocytes % (Manual) Nucleated RBC % Seg Neutrophils # Seg Neutrophils # Man Lymphocytes # (Manual) Monocytes # (Manual) PT D-Dimer ABG pH POC ABG pCO2 POC ABG pO2 ABG pO2 ABG O2 Saturation ABG Base Excess ABG Hemoglobin ABG Oxyhemoglobin ABG Sodium ABG Chloride ABG Glucose Oxyhemoglobin Carboxyhemoglobin Sodium Potassium Chloride Carbon Dioxide BUN Creatinine Glucose POC Glucose 208 H 158 H Calcium Magnesium Ferritin AST Lactate Dehydrogenase Total Creatine Kinase Troponin T C-Reactive Protein Total Protein Albumin Triglycerides HDL Cholesterol Arterial Blood Glucose Arterial Blood Ionized Calcium Urine WBC (Auto) Vancomycin Trough Salicylates Acetaminophen Coronavirus (PCR) 07/23/21 07/24/21 07/24/21 23:28 03:06 05:01 WBC RBC Hgb Hct RDW Lymph % (Auto) Lymph # (Auto) Seg Neutrophils % Seg Neuts % (Manual) Lymphocytes % (Manual) Nucleated RBC % Seg Neutrophils # Seg Neutrophils # Man Lymphocytes # (Manual) Monocytes # (Manual) PT D-Dimer ABG pH POC ABG pCO2 POC ABG pO2 51.1 L ABG pO2 ABG O2 Saturation ABG Base Excess ABG Hemoglobin ABG Oxyhemoglobin 85.0 L ABG Sodium 135.5 L ABG Chloride ABG Glucose 131 H Oxyhemoglobin Carboxyhemoglobin 0.4 L Sodium Potassium Chloride Carbon Dioxide BUN 29 H Creatinine Glucose 132 H POC Glucose 142 H Calcium 7.8 L Magnesium Ferritin AST Lactate Dehydrogenase Total Creatine Kinase Troponin T C-Reactive Protein Total Protein Albumin Triglycerides HDL Cholesterol Arterial Blood Glucose 131 H Arterial Blood Ionized Calcium 4.5 L Urine WBC (Auto) Vancomycin Trough Salicylates Acetaminophen Coronavirus (PCR) 07/24/21 07/24/21 07/24/21 05:06 11:38 17:26 WBC RBC Hgb Hct RDW Lymph % (Auto) Lymph # (Auto) Seg Neutrophils % Seg Neuts % (Manual) Lymphocytes % (Manual) Nucleated RBC % Seg Neutrophils # Seg Neutrophils # Man Lymphocytes # (Manual) Monocytes # (Manual) PT D-Dimer ABG pH POC ABG pCO2 POC ABG pO2 ABG pO2 ABG O2 Saturation ABG Base Excess ABG Hemoglobin ABG Oxyhemoglobin ABG Sodium ABG Chloride ABG Glucose Oxyhemoglobin Carboxyhemoglobin Sodium Potassium Chloride Carbon Dioxide BUN Creatinine Glucose POC Glucose 125 H 215 H 173 H Calcium Magnesium Ferritin AST Lactate Dehydrogenase Total Creatine Kinase Troponin T C-Reactive Protein Total Protein Albumin Triglycerides HDL Cholesterol Arterial Blood Glucose Arterial Blood Ionized Calcium Urine WBC (Auto) Vancomycin Trough Salicylates Acetaminophen Coronavirus (PCR) 07/24/21 07/25/21 07/25/21 23:23 03:33 04:28 WBC RBC Hgb Hct RDW Lymph % (Auto) Lymph # (Auto) Seg Neutrophils % Seg Neuts % (Manual) Lymphocytes % (Manual) Nucleated RBC % Seg Neutrophils # Seg Neutrophils # Man Lymphocytes # (Manual) Monocytes # (Manual) PT D-Dimer ABG pH POC ABG pCO2 POC ABG pO2 ABG pO2 ABG O2 Saturation ABG Base Excess ABG Hemoglobin ABG Oxyhemoglobin ABG Sodium 135.6 L ABG Chloride ABG Glucose 174 H Oxyhemoglobin Carboxyhemoglobin 0.1 L Sodium Potassium 5.1 H Chloride 107.7 H Carbon Dioxide BUN 29 H Creatinine Glucose 164 H POC Glucose 133 H Calcium 7.3 L Magnesium Ferritin AST Lactate Dehydrogenase Total Creatine Kinase Troponin T C-Reactive Protein Total Protein Albumin Triglycerides HDL Cholesterol Arterial Blood Glucose 174 H Arterial Blood Ionized Calcium Urine WBC (Auto) Vancomycin Trough Salicylates Acetaminophen Coronavirus (PCR) 07/25/21 07/25/21 07/25/21 04:28 04:28 05:17 WBC 14.9 H RBC Hgb Hct RDW 15.6 H Lymph % (Auto) Lymph # (Auto) Seg Neutrophils % Seg Neuts % (Manual) 92.0 H Lymphocytes % (Manual) 2.0 L Nucleated RBC % Seg Neutrophils # Seg Neutrophils # Man 13.7 H Lymphocytes # (Manual) 0.3 L Monocytes # (Manual) PT D-Dimer ABG pH POC ABG pCO2 POC ABG pO2 ABG pO2 ABG O2 Saturation ABG Base Excess ABG Hemoglobin ABG Oxyhemoglobin ABG Sodium ABG Chloride ABG Glucose Oxyhemoglobin Carboxyhemoglobin Sodium Potassium Chloride Carbon Dioxide BUN Creatinine Glucose POC Glucose 173 H Calcium Magnesium Ferritin AST Lactate Dehydrogenase Total Creatine Kinase Troponin T C-Reactive Protein Total Protein Albumin Triglycerides HDL Cholesterol Arterial Blood Glucose Arterial Blood Ionized Calcium Urine WBC (Auto) Vancomycin Trough 22.9 H Salicylates Acetaminophen Coronavirus (PCR) 07/25/21 07/25/21 07/25/21 11:29 17:00 23:46 WBC RBC Hgb Hct RDW Lymph % (Auto) Lymph # (Auto) Seg Neutrophils % Seg Neuts % (Manual) Lymphocytes % (Manual) Nucleated RBC % Seg Neutrophils # Seg Neutrophils # Man Lymphocytes # (Manual) Monocytes # (Manual) PT D-Dimer ABG pH POC ABG pCO2 POC ABG pO2 ABG pO2 ABG O2 Saturation ABG Base Excess ABG Hemoglobin ABG Oxyhemoglobin ABG Sodium ABG Chloride ABG Glucose Oxyhemoglobin Carboxyhemoglobin Sodium Potassium Chloride Carbon Dioxide BUN Creatinine Glucose POC Glucose 191 H 184 H 192 H Calcium Magnesium Ferritin AST Lactate Dehydrogenase Total Creatine Kinase Troponin T C-Reactive Protein Total Protein Albumin Triglycerides HDL Cholesterol Arterial Blood Glucose Arterial Blood Ionized Calcium Urine WBC (Auto) Vancomycin Trough Salicylates Acetaminophen Coronavirus (PCR) 07/26/21 07/26/21 07/26/21 03:17 05:33 06:07 WBC 18.0 H RBC Hgb Hct RDW 15.6 H Lymph % (Auto) Lymph # (Auto) Seg Neutrophils % Seg Neuts % (Manual) 87.0 H Lymphocytes % (Manual) 5.0 L Nucleated RBC % Seg Neutrophils # Seg Neutrophils # Man 15.7 H Lymphocytes # (Manual) 0.9 L Monocytes # (Manual) 1.1 H PT D-Dimer ABG pH POC ABG pCO2 POC ABG pO2 73.7 L ABG pO2 ABG O2 Saturation ABG Base Excess ABG Hemoglobin 11.8 L ABG Oxyhemoglobin 93.6 L ABG Sodium ABG Chloride ABG Glucose 183 H Oxyhemoglobin Carboxyhemoglobin 0.2 L Sodium Potassium Chloride Carbon Dioxide BUN Creatinine Glucose POC Glucose 172 H Calcium Magnesium Ferritin AST Lactate Dehydrogenase Total Creatine Kinase Troponin T C-Reactive Protein Total Protein Albumin Triglycerides HDL Cholesterol Arterial Blood Glucose 183 H Arterial Blood Ionized Calcium Urine WBC (Auto) Vancomycin Trough Salicylates Acetaminophen Coronavirus (PCR) 07/26/21 07/26/21 07/26/21 06:07 11:46 13:53 WBC RBC Hgb Hct RDW Lymph % (Auto) Lymph # (Auto) Seg Neutrophils % Seg Neuts % (Manual) Lymphocytes % (Manual) Nucleated RBC % Seg Neutrophils # Seg Neutrophils # Man Lymphocytes # (Manual) Monocytes # (Manual) PT D-Dimer 6992.45 H ABG pH POC ABG pCO2 POC ABG pO2 ABG pO2 ABG O2 Saturation ABG Base Excess ABG Hemoglobin ABG Oxyhemoglobin ABG Sodium ABG Chloride ABG Glucose Oxyhemoglobin Carboxyhemoglobin Sodium Potassium 5.4 H Chloride Carbon Dioxide BUN 33 H Creatinine Glucose 155 H POC Glucose 142 H Calcium 8.3 L Magnesium Ferritin AST Lactate Dehydrogenase Total Creatine Kinase Troponin T C-Reactive Protein Total Protein Albumin Triglycerides HDL Cholesterol Arterial Blood Glucose Arterial Blood Ionized Calcium Urine WBC (Auto) Vancomycin Trough Salicylates Acetaminophen Coronavirus (PCR) 07/26/21 07/26/21 07/26/21 13:53 14:16 17:29 WBC RBC Hgb Hct RDW Lymph % (Auto) Lymph # (Auto) Seg Neutrophils % Seg Neuts % (Manual) Lymphocytes % (Manual) Nucleated RBC % Seg Neutrophils # Seg Neutrophils # Man Lymphocytes # (Manual) Monocytes # (Manual) PT D-Dimer ABG pH POC ABG pCO2 POC ABG pO2 ABG pO2 ABG O2 Saturation ABG Base Excess ABG Hemoglobin ABG Oxyhemoglobin ABG Sodium ABG Chloride ABG Glucose Oxyhemoglobin Carboxyhemoglobin Sodium Potassium Chloride Carbon Dioxide BUN Creatinine Glucose 200 H POC Glucose 185 H Calcium Magnesium Ferritin 348.4 H AST Lactate Dehydrogenase 515 H Total Creatine Kinase Troponin T C-Reactive Protein Total Protein Albumin Triglycerides HDL Cholesterol Arterial Blood Glucose Arterial Blood Ionized Calcium Urine WBC (Auto) Vancomycin Trough Salicylates Acetaminophen Coronavirus (PCR) 07/26/21 07/27/21 07/27/21 23:30 04:00 04:48 WBC 16.5 H RBC Hgb Hct RDW Lymph % (Auto) Lymph # (Auto) Seg Neutrophils % Seg Neuts % (Manual) 92.0 H Lymphocytes % (Manual) 3.0 L Nucleated RBC % 1.0 H Seg Neutrophils # Seg Neutrophils # Man 15.2 H Lymphocytes # (Manual) 0.5 L Monocytes # (Manual) PT D-Dimer ABG pH 7.481 H POC ABG pCO2 POC ABG pO2 70.4 L ABG pO2 ABG O2 Saturation ABG Base Excess ABG Hemoglobin 11.6 L ABG Oxyhemoglobin ABG Sodium 131.9 L ABG Chloride ABG Glucose 207 H Oxyhemoglobin Carboxyhemoglobin Sodium Potassium Chloride Carbon Dioxide BUN Creatinine Glucose POC Glucose 186 H Calcium Magnesium Ferritin AST Lactate Dehydrogenase Total Creatine Kinase Troponin T C-Reactive Protein Total Protein Albumin Triglycerides HDL Cholesterol Arterial Blood Glucose 207 H Arterial Blood Ionized Calcium Urine WBC (Auto) Vancomycin Trough Salicylates Acetaminophen Coronavirus (PCR) 07/27/21 07/27/21 07/27/21 04:48 05:04 11:36 WBC RBC Hgb Hct RDW Lymph % (Auto) Lymph # (Auto) Seg Neutrophils % Seg Neuts % (Manual) Lymphocytes % (Manual) Nucleated RBC % Seg Neutrophils # Seg Neutrophils # Man Lymphocytes # (Manual) Monocytes # (Manual) PT D-Dimer ABG pH POC ABG pCO2 POC ABG pO2 ABG pO2 ABG O2 Saturation ABG Base Excess ABG Hemoglobin ABG Oxyhemoglobin ABG Sodium ABG Chloride ABG Glucose Oxyhemoglobin Carboxyhemoglobin Sodium Potassium Chloride Carbon Dioxide BUN 35 H Creatinine Glucose 216 H POC Glucose 201 H 142 H Calcium Magnesium Ferritin AST Lactate Dehydrogenase Total Creatine Kinase Troponin T C-Reactive Protein Total Protein Albumin Triglycerides HDL Cholesterol Arterial Blood Glucose Arterial Blood Ionized Calcium Urine WBC (Auto) Vancomycin Trough Salicylates Acetaminophen Coronavirus (PCR) 07/27/21 07/27/21 07/28/21 18:14 22:03 04:00 WBC RBC Hgb Hct RDW Lymph % (Auto) Lymph # (Auto) Seg Neutrophils % Seg Neuts % (Manual) Lymphocytes % (Manual) Nucleated RBC % Seg Neutrophils # Seg Neutrophils # Man Lymphocytes # (Manual) Monocytes # (Manual) PT D-Dimer ABG pH 7.491 H POC ABG pCO2 POC ABG pO2 109.2 H ABG pO2 ABG O2 Saturation ABG Base Excess ABG Hemoglobin ABG Oxyhemoglobin ABG Sodium 133.9 L ABG Chloride ABG Glucose 163 H Oxyhemoglobin Carboxyhemoglobin Sodium Potassium Chloride Carbon Dioxide BUN Creatinine Glucose POC Glucose 166 H 149 H Calcium Magnesium Ferritin AST Lactate Dehydrogenase Total Creatine Kinase Troponin T C-Reactive Protein Total Protein Albumin Triglycerides HDL Cholesterol Arterial Blood Glucose 163 H Arterial Blood Ionized Calcium Urine WBC (Auto) Vancomycin Trough Salicylates Acetaminophen Coronavirus (PCR) 07/28/21 07/28/21 07/28/21 04:10 04:10 04:10 WBC RBC Hgb Hct RDW Lymph % (Auto) Lymph # (Auto) Seg Neutrophils % Seg Neuts % (Manual) Lymphocytes % (Manual) Nucleated RBC % Seg Neutrophils # Seg Neutrophils # Man Lymphocytes # (Manual) Monocytes # (Manual) PT D-Dimer 5318.85 H ABG pH POC ABG pCO2 POC ABG pO2 ABG pO2 ABG O2 Saturation ABG Base Excess ABG Hemoglobin ABG Oxyhemoglobin ABG Sodium ABG Chloride ABG Glucose Oxyhemoglobin Carboxyhemoglobin Sodium Potassium Chloride Carbon Dioxide 31 H BUN 35 H Creatinine Glucose 187 H POC Glucose Calcium Magnesium Ferritin 324.6 H AST Lactate Dehydrogenase 414 H Total Creatine Kinase Troponin T C-Reactive Protein Total Protein Albumin Triglycerides HDL Cholesterol Arterial Blood Glucose Arterial Blood Ionized Calcium Urine WBC (Auto) Vancomycin Trough Salicylates Acetaminophen Coronavirus (PCR) 07/28/21 07/28/21 07/28/21 04:10 05:25 12:10 WBC 13.7 H RBC Hgb Hct RDW Lymph % (Auto) Lymph # (Auto) Seg Neutrophils % Seg Neuts % (Manual) Lymphocytes % (Manual) Nucleated RBC % Seg Neutrophils # Seg Neutrophils # Man Lymphocytes # (Manual) Monocytes # (Manual) PT D-Dimer ABG pH POC ABG pCO2 POC ABG pO2 ABG pO2 ABG O2 Saturation ABG Base Excess ABG Hemoglobin ABG Oxyhemoglobin ABG Sodium ABG Chloride ABG Glucose Oxyhemoglobin Carboxyhemoglobin Sodium Potassium Chloride Carbon Dioxide BUN Creatinine Glucose POC Glucose 152 H 162 H Calcium Magnesium Ferritin AST Lactate Dehydrogenase Total Creatine Kinase Troponin T C-Reactive Protein Total Protein Albumin Triglycerides HDL Cholesterol Arterial Blood Glucose Arterial Blood Ionized Calcium Urine WBC (Auto) Vancomycin Trough Salicylates Acetaminophen Coronavirus (PCR) 07/28/21 07/28/21 07/29/21 17:44 21:58 04:00 WBC RBC Hgb Hct RDW Lymph % (Auto) Lymph # (Auto) Seg Neutrophils % Seg Neuts % (Manual) Lymphocytes % (Manual) Nucleated RBC % Seg Neutrophils # Seg Neutrophils # Man Lymphocytes # (Manual) Monocytes # (Manual) PT D-Dimer ABG pH 7.510 H POC ABG pCO2 POC ABG pO2 113.0 H ABG pO2 ABG O2 Saturation ABG Base Excess ABG Hemoglobin 11.1 L ABG Oxyhemoglobin ABG Sodium 135.0 L ABG Chloride ABG Glucose 162 H Oxyhemoglobin Carboxyhemoglobin 0.3 L Sodium Potassium Chloride Carbon Dioxide BUN Creatinine Glucose POC Glucose 152 H 139 H Calcium Magnesium Ferritin AST Lactate Dehydrogenase Total Creatine Kinase Troponin T C-Reactive Protein Total Protein Albumin Triglycerides HDL Cholesterol Arterial Blood Glucose 162 H Arterial Blood Ionized Calcium 4.4 L Urine WBC (Auto) Vancomycin Trough Salicylates Acetaminophen Coronavirus (PCR) 07/29/21 07/29/21 07/29/21 04:35 04:35 05:47 WBC 12.0 H RBC Hgb Hct RDW Lymph % (Auto) Lymph # (Auto) Seg Neutrophils % Seg Neuts % (Manual) Lymphocytes % (Manual) Nucleated RBC % Seg Neutrophils # Seg Neutrophils # Man Lymphocytes # (Manual) Monocytes # (Manual) PT D-Dimer ABG pH POC ABG pCO2 POC ABG pO2 ABG pO2 ABG O2 Saturation ABG Base Excess ABG Hemoglobin ABG Oxyhemoglobin ABG Sodium ABG Chloride ABG Glucose Oxyhemoglobin Carboxyhemoglobin Sodium Potassium Chloride Carbon Dioxide BUN 34 H Creatinine Glucose 170 H POC Glucose 153 H Calcium Magnesium Ferritin AST Lactate Dehydrogenase Total Creatine Kinase Troponin T C-Reactive Protein Total Protein Albumin Triglycerides HDL Cholesterol Arterial Blood Glucose Arterial Blood Ionized Calcium Urine WBC (Auto) Vancomycin Trough Salicylates Acetaminophen Coronavirus (PCR) 07/29/21 07/29/21 07/29/21 11:25 16:29 23:39 WBC RBC Hgb Hct RDW Lymph % (Auto) Lymph # (Auto) Seg Neutrophils % Seg Neuts % (Manual) Lymphocytes % (Manual) Nucleated RBC % Seg Neutrophils # Seg Neutrophils # Man Lymphocytes # (Manual) Monocytes # (Manual) PT D-Dimer ABG pH POC ABG pCO2 POC ABG pO2 ABG pO2 ABG O2 Saturation ABG Base Excess ABG Hemoglobin ABG Oxyhemoglobin ABG Sodium ABG Chloride ABG Glucose Oxyhemoglobin Carboxyhemoglobin Sodium Potassium Chloride Carbon Dioxide BUN Creatinine Glucose POC Glucose 142 H 167 H 141 H Calcium Magnesium Ferritin AST Lactate Dehydrogenase Total Creatine Kinase Troponin T C-Reactive Protein Total Protein Albumin Triglycerides HDL Cholesterol Arterial Blood Glucose Arterial Blood Ionized Calcium Urine WBC (Auto) Vancomycin Trough Salicylates Acetaminophen Coronavirus (PCR) 07/30/21 07/30/21 07/30/21 05:00 05:00 05:00 WBC RBC Hgb Hct RDW Lymph % (Auto) Lymph # (Auto) Seg Neutrophils % Seg Neuts % (Manual) Lymphocytes % (Manual) Nucleated RBC % Seg Neutrophils # Seg Neutrophils # Man Lymphocytes # (Manual) Monocytes # (Manual) PT D-Dimer 1818.72 H ABG pH POC ABG pCO2 POC ABG pO2 ABG pO2 ABG O2 Saturation ABG Base Excess ABG Hemoglobin ABG Oxyhemoglobin ABG Sodium ABG Chloride ABG Glucose Oxyhemoglobin Carboxyhemoglobin Sodium Potassium Chloride Carbon Dioxide BUN 34 H Creatinine Glucose 184 H POC Glucose Calcium Magnesium Ferritin 242.1 H AST Lactate Dehydrogenase 304 H Total Creatine Kinase Troponin T C-Reactive Protein Total Protein Albumin Triglycerides HDL Cholesterol Arterial Blood Glucose Arterial Blood Ionized Calcium Urine WBC (Auto) Vancomycin Trough Salicylates Acetaminophen Coronavirus (PCR) 07/30/21 07/30/21 07/30/21 05:00 06:08 11:41 WBC RBC 3.45 L Hgb 10.0 L Hct 29.9 L RDW Lymph % (Auto) Lymph # (Auto) Seg Neutrophils % Seg Neuts % (Manual) Lymphocytes % (Manual) Nucleated RBC % Seg Neutrophils # Seg Neutrophils # Man Lymphocytes # (Manual) Monocytes # (Manual) PT D-Dimer ABG pH POC ABG pCO2 POC ABG pO2 ABG pO2 ABG O2 Saturation ABG Base Excess ABG Hemoglobin ABG Oxyhemoglobin ABG Sodium ABG Chloride ABG Glucose Oxyhemoglobin Carboxyhemoglobin Sodium Potassium Chloride Carbon Dioxide BUN Creatinine Glucose POC Glucose 171 H 182 H Calcium Magnesium Ferritin AST Lactate Dehydrogenase Total Creatine Kinase Troponin T C-Reactive Protein Total Protein Albumin Triglycerides HDL Cholesterol Arterial Blood Glucose Arterial Blood Ionized Calcium Urine WBC (Auto) Vancomycin Trough Salicylates Acetaminophen Coronavirus (PCR) 07/30/21 07/30/21 07/30/21 17:28 22:22 23:43 WBC RBC Hgb Hct RDW Lymph % (Auto) Lymph # (Auto) Seg Neutrophils % Seg Neuts % (Manual) Lymphocytes % (Manual) Nucleated RBC % Seg Neutrophils # Seg Neutrophils # Man Lymphocytes # (Manual) Monocytes # (Manual) PT D-Dimer ABG pH POC ABG pCO2 POC ABG pO2 ABG pO2 ABG O2 Saturation ABG Base Excess ABG Hemoglobin ABG Oxyhemoglobin ABG Sodium ABG Chloride ABG Glucose Oxyhemoglobin Carboxyhemoglobin Sodium Potassium Chloride Carbon Dioxide BUN Creatinine Glucose POC Glucose 176 H 150 H 161 H Calcium Magnesium Ferritin AST Lactate Dehydrogenase Total Creatine Kinase Troponin T C-Reactive Protein Total Protein Albumin Triglycerides HDL Cholesterol Arterial Blood Glucose Arterial Blood Ionized Calcium Urine WBC (Auto) Vancomycin Trough Salicylates Acetaminophen Coronavirus (PCR) 07/31/21 07/31/21 07/31/21 04:00 05:25 05:50 WBC 11.5 H RBC Hgb Hct RDW Lymph % (Auto) Lymph # (Auto) Seg Neutrophils % Seg Neuts % (Manual) Lymphocytes % (Manual) Nucleated RBC % Seg Neutrophils # Seg Neutrophils # Man Lymphocytes # (Manual) Monocytes # (Manual) PT D-Dimer ABG pH POC ABG pCO2 POC ABG pO2 ABG pO2 ABG O2 Saturation ABG Base Excess ABG Hemoglobin 11.5 L ABG Oxyhemoglobin ABG Sodium ABG Chloride ABG Glucose 143 H Oxyhemoglobin Carboxyhemoglobin Sodium Potassium Chloride Carbon Dioxide BUN Creatinine Glucose POC Glucose 150 H Calcium Magnesium Ferritin AST Lactate Dehydrogenase Total Creatine Kinase Troponin T C-Reactive Protein Total Protein Albumin Triglycerides HDL Cholesterol Arterial Blood Glucose 143 H Arterial Blood Ionized Calcium Urine WBC (Auto) Vancomycin Trough Salicylates Acetaminophen Coronavirus (PCR) 07/31/21 07/31/21 07/31/21 05:50 11:36 17:30 WBC RBC Hgb Hct RDW Lymph % (Auto) Lymph # (Auto) Seg Neutrophils % Seg Neuts % (Manual) Lymphocytes % (Manual) Nucleated RBC % Seg Neutrophils # Seg Neutrophils # Man Lymphocytes # (Manual) Monocytes # (Manual) PT D-Dimer ABG pH POC ABG pCO2 POC ABG pO2 ABG pO2 ABG O2 Saturation ABG Base Excess ABG Hemoglobin ABG Oxyhemoglobin ABG Sodium ABG Chloride ABG Glucose Oxyhemoglobin Carboxyhemoglobin Sodium Potassium Chloride Carbon Dioxide BUN 32 H Creatinine Glucose 158 H POC Glucose 179 H 115 H Calcium Magnesium Ferritin AST Lactate Dehydrogenase Total Creatine Kinase Troponin T C-Reactive Protein Total Protein Albumin Triglycerides HDL Cholesterol Arterial Blood Glucose Arterial Blood Ionized Calcium Urine WBC (Auto) Vancomycin Trough Salicylates Acetaminophen Coronavirus (PCR) 07/31/21 08/01/21 08/01/21 22:36 04:00 04:58 WBC RBC Hgb Hct RDW Lymph % (Auto) Lymph # (Auto) Seg Neutrophils % Seg Neuts % (Manual) Lymphocytes % (Manual) Nucleated RBC % Seg Neutrophils # Seg Neutrophils # Man Lymphocytes # (Manual) Monocytes # (Manual) PT D-Dimer ABG pH 7.477 H POC ABG pCO2 POC ABG pO2 ABG pO2 ABG O2 Saturation ABG Base Excess ABG Hemoglobin 11.4 L ABG Oxyhemoglobin ABG Sodium 134.4 L ABG Chloride ABG Glucose 173 H Oxyhemoglobin Carboxyhemoglobin 0.3 L Sodium Potassium Chloride Carbon Dioxide BUN Creatinine Glucose POC Glucose 150 H 153 H Calcium Magnesium Ferritin AST Lactate Dehydrogenase Total Creatine Kinase Troponin T C-Reactive Protein Total Protein Albumin Triglycerides HDL Cholesterol Arterial Blood Glucose 173 H Arterial Blood Ionized Calcium Urine WBC (Auto) Vancomycin Trough Salicylates Acetaminophen Coronavirus (PCR) 08/01/21 08/01/21 08/01/21 06:00 06:00 06:00 WBC RBC Hgb Hct RDW Lymph % (Auto) Lymph # (Auto) Seg Neutrophils % Seg Neuts % (Manual) Lymphocytes % (Manual) Nucleated RBC % Seg Neutrophils # Seg Neutrophils # Man Lymphocytes # (Manual) Monocytes # (Manual) PT D-Dimer 1503.43 H ABG pH POC ABG pCO2 POC ABG pO2 ABG pO2 ABG O2 Saturation ABG Base Excess ABG Hemoglobin ABG Oxyhemoglobin ABG Sodium ABG Chloride ABG Glucose Oxyhemoglobin Carboxyhemoglobin Sodium 136 L Potassium Chloride Carbon Dioxide 31 H BUN 28 H Creatinine 0.5 L Glucose 154 H POC Glucose Calcium Magnesium Ferritin 244.0 H AST Lactate Dehydrogenase 369 H Total Creatine Kinase Troponin T C-Reactive Protein Total Protein Albumin Triglycerides HDL Cholesterol Arterial Blood Glucose Arterial Blood Ionized Calcium Urine WBC (Auto) Vancomycin Trough Salicylates Acetaminophen Coronavirus (PCR) 08/01/21 08/01/21 08/01/21 12:32 18:30 23:23 WBC RBC Hgb Hct RDW Lymph % (Auto) Lymph # (Auto) Seg Neutrophils % Seg Neuts % (Manual) Lymphocytes % (Manual) Nucleated RBC % Seg Neutrophils # Seg Neutrophils # Man Lymphocytes # (Manual) Monocytes # (Manual) PT D-Dimer ABG pH POC ABG pCO2 POC ABG pO2 ABG pO2 ABG O2 Saturation ABG Base Excess ABG Hemoglobin ABG Oxyhemoglobin ABG Sodium ABG Chloride ABG Glucose Oxyhemoglobin Carboxyhemoglobin Sodium Potassium Chloride Carbon Dioxide BUN Creatinine Glucose POC Glucose 144 H 127 H 123 H Calcium Magnesium Ferritin AST Lactate Dehydrogenase Total Creatine Kinase Troponin T C-Reactive Protein Total Protein Albumin Triglycerides HDL Cholesterol Arterial Blood Glucose Arterial Blood Ionized Calcium Urine WBC (Auto) Vancomycin Trough Salicylates Acetaminophen Coronavirus (PCR) 08/02/21 08/02/21 08/02/21 05:30 05:30 11:18 WBC 11.2 H RBC Hgb Hct RDW Lymph % (Auto) Lymph # (Auto) Seg Neutrophils % Seg Neuts % (Manual) Lymphocytes % (Manual) Nucleated RBC % Seg Neutrophils # Seg Neutrophils # Man Lymphocytes # (Manual) Monocytes # (Manual) PT D-Dimer ABG pH POC ABG pCO2 POC ABG pO2 ABG pO2 ABG O2 Saturation ABG Base Excess ABG Hemoglobin ABG Oxyhemoglobin ABG Sodium ABG Chloride ABG Glucose Oxyhemoglobin Carboxyhemoglobin Sodium Potassium Chloride Carbon Dioxide 33 H BUN 23 H Creatinine 0.5 L Glucose 108 H POC Glucose 131 H Calcium Magnesium Ferritin AST Lactate Dehydrogenase Total Creatine Kinase Troponin T C-Reactive Protein Total Protein Albumin Triglycerides HDL Cholesterol Arterial Blood Glucose Arterial Blood Ionized Calcium Urine WBC (Auto) Vancomycin Trough Salicylates Acetaminophen Coronavirus (PCR)
[2021-08-03] MEDS: INSULIN LISPRO 100 UNIT/ML SUB-Q SCH ×4 (00:41→17:35)
[2021-08-03] MEDS: methylPREDNISolone Sod Succinate 40 MG/1 ML INJ IV SCH ×3 (05:45→22:16)
[2021-08-03 06:32] LABS: Blood Urea Nitrogen 28 mg/dL (7-17); Calcium 9.4 mg/dL (8.4-10.2); Hematocrit 32.2 % (30.3-42.9); Hemoglobin 10.7 gm/dl (10.1-14.3); Mean Corpuscular HGB Conc 33 % (30-34); Mean Corpuscular Volume 88 fl (79-97); Platelet Count 286 K/mm3 (140-440); Red Blood Count 3.66 M/mm3 (3.65-5.03); Red Cell Distribution Width 15.4 % (13.2-15.2)
[2021-08-03 06:38] LABS: BUN/Creatinine Ratio 47
[2021-08-03 06:39] LABS: INR 1.17 (0.87-1.13)
[2021-08-03] MEDS: hydrALAZINE 20 MG/1 ML INJ IV SCH ×6 (06:47→23:38)
[2021-08-03 07:40] LABS: C-Reactive Protein 0.2 mg/dL (0.00-1.30)
--- NOTE | 2021-08-03 09:52 | Progress Note ---
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 Avoid AV jaylene blocking agents. Otherwise, conservative cardiac management. Subjective Date of service: 08/03/21 Principal diagnosis: COVID pneumonia Interval history: Patient has no cardiac complaints. No distress noted. Currently, she is sinus rhythm, rate 78 on telemetry. Objective Vital Signs Temp Pulse Pulse Resp BP BP Pulse Ox 08/03/21 09:37 97 08/03/21 06:48 99 H 128/57 08/03/21 06:47 99 H 128/57 08/03/21 06:32 99.6 F 99 H 20 128/57 93 08/03/21 04:00 105 H 20 97 08/03/21 00:00 98.6 F 105 H 22 97 08/02/21 23:50 98.6 F 109 H 22 133/79 93 08/02/21 23:19 111 H 131/79 08/02/21 22:50 137/88 91 08/02/21 22:40 137/88 82 L 08/02/21 21:25 98.9 F 111 H 22 131/79 93 08/02/21 21:19 114 H 93 08/02/21 21:17 137/88 08/02/21 21:09 137/88 08/02/21 21:00 92 08/02/21 20:10 137/88 08/02/21 19:13 137/88 08/02/21 18:30 137/88 89 08/02/21 18:20 109 H 44 H 137/88 94 08/02/21 18:17 95 H 146/44 08/02/21 18:10 110 H 30 H 137/88 90 08/02/21 18:00 111 H 43 H 150/80 93 08/02/21 17:50 120 H 35 H 150/80 90 08/02/21 17:40 121 H 26 H 150/80 93 08/02/21 17:30 110 H 22 150/80 92 08/02/21 17:20 109 H 27 H 150/80 94 08/02/21 17:10 118 H 26 H 150/80 92 08/02/21 17:00 113 H 15 134/70 92 08/02/21 16:50 119 H 24 134/70 93 08/02/21 16:40 114 H 33 H 134/70 92 08/02/21 16:30 121 H 14 134/70 91 08/02/21 16:20 114 H 35 H 134/70 89 08/02/21 16:10 118 H 24 134/70 89 08/02/21 16:00 99.9 F H 109 H 19 133/67 90 08/02/21 15:50 118 H 12 133/67 91 08/02/21 15:40 109 H 13 133/67 90 08/02/21 15:30 112 H 15 133/67 90 08/02/21 15:20 113 H 22 133/67 90 08/02/21 15:10 114 H 40 H 133/67 91 08/02/21 15:00 113 H 40 H 127/57 91 08/02/21 14:50 113 H 47 H 127/57 91 08/02/21 14:40 120 H 18 127/57 89 08/02/21 14:30 112 H 25 H 127/57 92 08/02/21 14:20 113 H 36 H 127/57 89 08/02/21 14:10 114 H 31 H 127/57 91 08/02/21 14:00 116 H 16 122/76 89 08/02/21 13:46 116 H 11 L 122/76 91 08/02/21 13:31 108 H 136/41 08/02/21 13:30 108 H 12 122/76 90 08/02/21 13:16 112 H 15 122/76 90 08/02/21 13:00 117 H 11 L 134/45 91 08/02/21 12:46 106 H 20 134/45 90 08/02/21 12:30 112 H 14 134/45 90 08/02/21 12:16 107 H 14 134/45 92 08/02/21 12:00 99.2 F 112 H 107 H 30 H 117/67 93 08/02/21 11:46 105 H 12 117/67 93 08/02/21 11:30 107 H 22 117/67 91 08/02/21 11:16 113 H 21 117/67 89 08/02/21 11:00 110 H 17 147/72 92 08/02/21 10:46 113 H 17 147/72 93 08/02/21 10:30 109 H 16 147/72 92 08/02/21 10:16 117 H 14 147/72 93 08/02/21 10:10 103 H 132/116 08/02/21 10:00 105 H 25 H 125/80 93 - Physical Examination Narrative exam: Deferred due to isolation protocol. General: No Apparent Distress Cardiac: Positive: Reg Rate and Rhythm - Labs and Meds Cardiac Enzymes 08/03/21 Range/Units 05:33 Lactate Dehydrogenase 427 H (91-180) units/L Coagulation 08/03/21 Range/Units 05:33 PT 15.4 H (12.2-14.9) Sec. INR 1.17 H (0.87-1.13) CBC 08/03/21 Range/Units 05:33 WBC 10.1 (4.5-11.0) K/mm3 RBC 3.66 (3.65-5.03) M/mm3 Hgb 10.7 (10.1-14.3) gm/dl Hct 32.2 (30.3-42.9) % Plt Count 286 (140-440) K/mm3 Comprehensive Metabolic Panel 08/03/21 Range/Units 05:33 Sodium 136 L (137-145) mmol/L Potassium 4.3 (3.6-5.0) mmol/L Chloride 99.4 (98-107) mmol/L Carbon Dioxide 29 (22-30) mmol/L BUN 28 H (7-17) mg/dL Creatinine 0.6 (0.6-1.2) mg/dL Glucose 114 H (65-100) mg/dL Calcium 9.4 (8.4-10.2) mg/dL
--- NOTE | 2021-08-03 10:25 | Progress Note ---
Assessment and Plan 55 y/o obese female with acute respiratory failure, pulmonary embolism, now with renal failure, most likely all secondary to COVID 19 08/03/21: Pulm status is stable to improving. Suggest continuing 2 liters until patient can ambulate or after PT/OT assessment before further weaning. Will start to wean steroids tomorrow. If able to swallow appropriately will switch to Prednisone 60 if not then solumedrol 20 IV q8 08/02/21: Successful extubation with weaning of oxygen. Still confused, most likely ICU delirium. Awaiting speech eval. If able to swallow suggest scheduled BID seroquel (50 BID). Spoke with cards. They only feel we need to treat the PE and DVT as this thrombus is likely from passing through the heart from the v enous system. If able to swallow will do Eliquis if she can afford it. Given stability and improvement, will transfer to COVID floor with telemetry. Needs PT/OT as she may need rehab. Guarded prognosis still but promising. 08/01/21: Will attempt extubation this am. Ordered bipap therapy for PRN. Likely will need bp control but will address once extubated. Called family to update and then will call back once off the vent. 07/31/21: Drop PEEP to 6 later this afternoon and attempt to wean sedation to off. patient will likely not tolerate this. If she does then will try PSV this afternoon. If not, will plan to extubate with bipap available PRN early tomorrow morning. Discussed this with daughters over the phone. Asked nursing to address transducer with art line. I suspect the positioning is incorrect. 07/30/21: Will wean PEEP to 10 this afternoon. If tolerates then around 6-8 PM may drop to 8. Would not go any further than that today. Keep FiO2 at 40%. Once PEEP around 6, can start to lighten sedation and try PSV trials. Prognosis is still guarded. Spoke with family over the phone to update them on progress but also explain to them their family member is still gravely ill. Keep steroids at current dose at leas through the weekend. 07/29/21: Wean FiO2 as tolerated. PaO2 is good. Continue current dose of steroids. Changed Hydralazine. Continue anticoagulation. May be able to start weaning PEEP tomorrow. 07/28/21: Repeat CXR today to check ET tube. Wean steroids when able. Continue to wean FiO2 as tolerated. Do not move PEEP until FiO2 is at 45-50%. Guarded prognosis remains. Will call family now. 07/27/21: Ok with advancing ET tube 2-3 cm. Continue to wean FiO2 as tolerated. Repeat CXR post advancement of ET tube. Dropped steroids too 40q8 07/26/21: Back down to 65% like on 07/22 but PEEP is at 12. Will monitor closely. COntinue current level of sedation and high dose steroids. Prognosis is very very guarded. 07/23/21: Dropped FiO2 to 70. Hopeful to wean back down. Keep peep elevated until FiO2 at 50-55%. Continue High dose steroids. Keep RASS at -4. Na is better. Will stop D5W. Updated Daughter (Linda) and GodDaughter over the phone. If someone could please call them at least one day over the weekend I will call them again on Monday. Prognosis remains very guarded. Explained to them the high mortality rate associated with COVID and mechanical ventilation. 07/22/21: Dropped Fio2 to 65. Continue to wean for sats >88%. keep elevated peep until FiO2 around 50-55% so hopefully in the next 24-36 hours we can get th ere. Continue sedation to keep rass at -4. Continue high dose steroids. Will continue D5W for now until Free water can control sodium. need CBC in the am along with BMP. Prognosis still remains guarded. Continue lovenox 07/21/21: Dropped FiO2 to 80%. Continue to wean for sats >88%. Keep peep elevated until FiO2 around 50-55%. Continue remdesivir and adequate levels of sedation. Continue high dose steroids. No proning for now. Continue therapeutic lovenox. Prognosis remains guarded. 07/20/21: COVID positive. Started Remdesivir. Renal function improved. COntinue high dose steroids at current dosing for now. Suggest repeat ABG later this afternoon if able, may need art line but BP stable for now. No proning. Agree with therapeutic Lovenox. Guarded prognosis. 1. Follow up COVID testing, continue isolation 2. Agree with high dose IV steroids, if positive, will change to solumedrol 125q8 3. If positive then would need remdesivir and Actemra, hopefully still a candidate given bump in renal function 4. Unable to prone patient at moment, but did increase PEEP to 20 and ordered repeat ABG at 1400 5 Very very guarded prognosis CCT 31 minutes. Subjective Date of service: 08/03/21 Principal diagnosis: COVID pneumonia Interval history: Successful transition out of ICU. Good sats on 2 liters. Needs PT/OT and Speech evals Objective Vital Signs - 12hr 08/02/21 08/02/21 08/02/21 22:40 22:50 23:19 Temperature Pulse Rate 111 H Pulse Rate [ From Monitor] Respiratory Rate Blood Pressure 137/88 137/88 131/79 Blood Pressure [Left] O2 Sat by Pulse 82 L 91 Oximetry 08/02/21 08/03/21 08/03/21 23:50 00:00 04:00 Temperature 98.6 F 98.6 F Pulse Rate 109 H Pulse Rate [ 105 H 105 H From Monitor] Respiratory 22 22 20 Rate Blood Pressure Blood Pressure 133/79 [Left] O2 Sat by Pulse 93 97 97 Oximetry 08/03/21 08/03/21 08/03/21 06:32 06:47 06:48 Temperature 99.6 F Pulse Rate 99 H 99 H 99 H Pulse Rate [ From Monitor] Respiratory 20 Rate Blood Pressure 128/57 128/57 128/57 Blood Pressure [Left] O2 Sat by Pulse 93 Oximetry 08/03/21 09:37 Temperature Pulse Rate Pulse Rate [ From Monitor] Respiratory Rate Blood Pressure Blood Pressure [Left] O2 Sat by Pulse 97 Oximetry Constitutional: no acute distress, comatose ENT: other (orally intubated and sedated) Ascultation: Bilateral: diminished breath sounds Cardiovascular: regular rate and rhythm Gastrointestinal: normoactive bowel sounds, soft, non-tender Integumentary: normal Extremities: no cyanosis Neurologic: other (Sedated) CBC and BMP: 08/03/21 05:33 08/03/21 05:33 ABG, PT/INR, D-dimer: ABG ABG pH 7.477 (7.320-7.450) H 08/01/21 04:00 POC ABG pCO2 41.3 mmHg (32.0-48.0) 08/01/21 04:00 ABG pCO2 35.2 mm Hg 07/19/21 Unknown POC ABG pO2 89.8 mmHg (83-108) 08/01/21 04:00 ABG pO2 64.2 mm Hg (80.0-90.0) L 07/19/21 Unknown POC ABG HCO3 29.9 08/01/21 04:00 ABG O2 Saturation 97.0 (0-100) 08/01/21 04:00 PT/INR, D-dimer PT 15.4 Sec. (12.2-14.9) H 08/03/21 05:33 INR 1.17 (0.87-1.13) H 08/03/21 05:33 D-Dimer 1383.44 ng/mlDDU (0-234) H 08/03/21 05:33 Abnormal lab findings: Abnormal Labs 07/18/21 07/18/21 07/18/21 16:00 16:00 16:00 WBC RBC Hgb Hct RDW 15.3 H Lymph % (Auto) 7.9 L Lymph # (Auto) 0.8 L Seg Neutrophils % 86.3 H Seg Neuts % (Manual) Lymphocytes % (Manual) Nucleated RBC % Seg Neutrophils # 9.0 H Seg Neutrophils # Man Lymphocytes # (Manual) Monocytes # (Manual) PT 15.1 H INR D-Dimer > 20840 H ABG pH POC ABG pCO2 POC ABG pO2 ABG pO2 ABG O2 Saturation ABG Base Excess ABG Hemoglobin ABG Oxyhemoglobin ABG Sodium ABG Chloride ABG Glucose Oxyhemoglobin Carboxyhemoglobin Sodium Potassium 3.5 L Chloride Carbon Dioxide 20 L BUN 19 H Creatinine Glucose 140 H POC Glucose Calcium Magnesium Ferritin AST 43 H Lactate Dehydrogenase 705 H Total Creatine Kinase 157 H Troponin T 0.106 H* C-Reactive Protein 33.00 H Total Protein Albumin 3.2 L Triglycerides 156 H HDL Cholesterol 33 L Arterial Blood Glucose Arterial Blood Ionized Calcium Urine WBC (Auto) Vancomycin Trough Salicylates Acetaminophen Coronavirus (PCR) 07/18/21 07/18/21 07/18/21 16:00 16:00 16:00 WBC RBC Hgb Hct RDW Lymph % (Auto) Lymph # (Auto) Seg Neutrophils % Seg Neuts % (Manual) Lymphocytes % (Manual) Nucleated RBC % Seg Neutrophils # Seg Neutrophils # Man Lymphocytes # (Manual) Monocytes # (Manual) PT INR D-Dimer ABG pH POC ABG pCO2 POC ABG pO2 ABG pO2 ABG O2 Saturation ABG Base Excess ABG Hemoglobin ABG Oxyhemoglobin ABG Sodium ABG Chloride ABG Glucose Oxyhemoglobin Carboxyhemoglobin Sodium Potassium Chloride Carbon Dioxide BUN Creatinine Glucose POC Glucose Calcium Magnesium Ferritin 657.0 H AST Lactate Dehydrogenase Total Creatine Kinase Troponin T C-Reactive Protein Total Protein Albumin Triglycerides HDL Cholesterol Arterial Blood Glucose Arterial Blood Ionized Calcium Urine WBC (Auto) Vancomycin Trough Salicylates < 0.3 L Acetaminophen 5.7 L Coronavirus (PCR) 07/18/21 07/18/21 07/19/21 Unknown Unknown 04:33 WBC RBC Hgb Hct RDW Lymph % (Auto) Lymph # (Auto) Seg Neutrophils % Seg Neuts % (Manual) Lymphocytes % (Manual) Nucleated RBC % Seg Neutrophils # Seg Neutrophils # Man Lymphocytes # (Manual) Monocytes # (Manual) PT INR D-Dimer ABG pH 7.275 L POC ABG pCO2 POC ABG pO2 68.7 L 53.1 L ABG pO2 ABG O2 Saturation ABG Base Excess ABG Hemoglobin ABG Oxyhemoglobin 88.3 L 85.3 L ABG Sodium ABG Chloride 109.0 H ABG Glucose 170 H 150 H Oxyhemoglobin Carboxyhemoglobin 0 L 0.3 L Sodium Potassium Chloride Carbon Dioxide BUN Creatinine Glucose POC Glucose Calcium Magnesium Ferritin AST Lactate Dehydrogenase Total Creatine Kinase Troponin T C-Reactive Protein Total Protein Albumin Triglycerides HDL Cholesterol Arterial Blood Glucose 170 H 150 H Arterial Blood Ionized Calcium Urine WBC (Auto) 9.0 H Vancomycin Trough Salicylates Acetaminophen Coronavirus (PCR) 07/19/21 07/19/21 07/19/21 04:59 04:59 Unknown WBC RBC Hgb Hct RDW 16.0 H Lymph % (Auto) 10.7 L Lymph # (Auto) 1.1 L Seg Neutrophils % 84.3 H Seg Neuts % (Manual) Lymphocytes % (Manual) Nucleated RBC % Seg Neutrophils # 8.7 H Seg Neutrophils # Man Lymphocytes # (Manual) Monocytes # (Manual) PT INR D-Dimer ABG pH POC ABG pCO2 POC ABG pO2 ABG pO2 ABG O2 Saturation ABG Base Excess ABG Hemoglobin ABG Oxyhemoglobin ABG Sodium ABG Chloride ABG Glucose Oxyhemoglobin Carboxyhemoglobin Sodium Potassium Chloride 108.8 H Carbon Dioxide 21 L BUN 28 H Creatinine 1.8 H Glucose 145 H POC Glucose Calcium 7.8 L Magnesium Ferritin AST Lactate Dehydrogenase Total Creatine Kinase Troponin T C-Reactive Protein Total Protein 6.2 L Albumin 3.2 L Triglycerides HDL Cholesterol Arterial Blood Glucose Arterial Blood Ionized Calcium Urine WBC (Auto) Vancomycin Trough Salicylates Acetaminophen Coronavirus (PCR) Positive A 07/19/21 07/20/21 07/20/21 Unknown 00:14 04:44 WBC RBC Hgb Hct RDW Lymph % (Auto) Lymph # (Auto) Seg Neutrophils % Seg Neuts % (Manual) Lymphocytes % (Manual) Nucleated RBC % Seg Neutrophils # Seg Neutrophils # Man Lymphocytes # (Manual) Monocytes # (Manual) PT INR D-Dimer ABG pH POC ABG pCO2 POC ABG pO2 ABG pO2 64.2 L ABG O2 Saturation 93.2 L ABG Base Excess -4.5 L ABG Hemoglobin 11.0 L ABG Oxyhemoglobin ABG Sodium ABG Chloride ABG Glucose Oxyhemoglobin 91.9 L Carboxyhemoglobin Sodium Potassium Chloride 112.2 H Carbon Dioxide BUN 38 H Creatinine 1.3 H Glucose 156 H POC Glucose 164 H Calcium 8.1 L Magnesium 3.10 H Ferritin AST Lactate Dehydrogenase Total Creatine Kinase Troponin T C-Reactive Protein Total Protein Albumin 2.8 L Triglycerides HDL Cholesterol Arterial Blood Glucose Arterial Blood Ionized Calcium Urine WBC (Auto) Vancomycin Trough Salicylates Acetaminophen Coronavirus (PCR) 07/20/21 07/20/21 07/20/21 04:44 05:00 05:40 WBC RBC 3.42 L Hgb 9.7 L Hct 29.3 L RDW 16.1 H Lymph % (Auto) Lymph # (Auto) Seg Neutrophils % Seg Neuts % (Manual) Lymphocytes % (Manual) Nucleated RBC % Seg Neutrophils # Seg Neutrophils # Man Lymphocytes # (Manual) Monocytes # (Manual) PT INR D-Dimer ABG pH POC ABG pCO2 POC ABG pO2 139.0 H ABG pO2 ABG O2 Saturation ABG Base Excess ABG Hemoglobin 10.1 L ABG Oxyhemoglobin ABG Sodium ABG Chloride 113.0 H ABG Glucose 155 H Oxyhemoglobin Carboxyhemoglobin 0.3 L Sodium Potassium Chloride Carbon Dioxide BUN Creatinine Glucose POC Glucose 164 H Calcium Magnesium Ferritin AST Lactate Dehydrogenase Total Creatine Kinase Troponin T C-Reactive Protein Total Protein Albumin Triglycerides HDL Cholesterol Arterial Blood Glucose 155 H Arterial Blood Ionized Calcium 4.4 L Urine WBC (Auto) Vancomycin Trough Salicylates Acetaminophen Coronavirus (PCR) 07/20/21 07/20/21 07/21/21 11:40 17:48 03:31 WBC RBC Hgb Hct RDW Lymph % (Auto) Lymph # (Auto) Seg Neutrophils % Seg Neuts % (Manual) Lymphocytes % (Manual) Nucleated RBC % Seg Neutrophils # Seg Neutrophils # Man Lymphocytes # (Manual) Monocytes # (Manual) PT INR D-Dimer ABG pH POC ABG pCO2 POC ABG pO2 ABG pO2 ABG O2 Saturation ABG Base Excess ABG Hemoglobin ABG Oxyhemoglobin ABG Sodium ABG Chloride ABG Glucose Oxyhemoglobin Carboxyhemoglobin Sodium Potassium Chloride Carbon Dioxide BUN Creatinine Glucose POC Glucose 137 H 143 H 157 H Calcium Magnesium Ferritin AST Lactate Dehydrogenase Total Creatine Kinase Troponin T C-Reactive Protein Total Protein Albumin Triglycerides HDL Cholesterol Arterial Blood Glucose Arterial Blood Ionized Calcium Urine WBC (Auto) Vancomycin Trough Salicylates Acetaminophen Coronavirus (PCR) 07/21/21 07/21/21 07/21/21 04:30 04:52 05:21 WBC RBC Hgb Hct RDW Lymph % (Auto) Lymph # (Auto) Seg Neutrophils % Seg Neuts % (Manual) Lymphocytes % (Manual) Nucleated RBC % Seg Neutrophils # Seg Neutrophils # Man Lymphocytes # (Manual) Monocytes # (Manual) PT INR D-Dimer ABG pH POC ABG pCO2 31.7 L POC ABG pO2 77.6 L ABG pO2 ABG O2 Saturation ABG Base Excess ABG Hemoglobin 10.2 L ABG Oxyhemoglobin ABG Sodium 148.3 H ABG Chloride 120.0 H ABG Glucose 168 H Oxyhemoglobin Carboxyhemoglobin 0.2 L Sodium 150 H Potassium Chloride 115.7 H Carbon Dioxide BUN 49 H Creatinine 1.4 H Glucose 185 H POC Glucose 170 H Calcium 8.3 L Magnesium Ferritin AST Lactate Dehydrogenase Total Creatine Kinase Troponin T C-Reactive Protein Total Protein Albumin 3.0 L Triglycerides HDL Cholesterol Arterial Blood Glucose 168 H Arterial Blood Ionized Calcium 4.4 L Urine WBC (Auto) Vancomycin Trough Salicylates Acetaminophen Coronavirus (PCR) 07/21/21 07/21/21 07/21/21 11:17 17:26 23:40 WBC RBC Hgb Hct RDW Lymph % (Auto) Lymph # (Auto) Seg Neutrophils % Seg Neuts % (Manual) Lymphocytes % (Manual) Nucleated RBC % Seg Neutrophils # Seg Neutrophils # Man Lymphocytes # (Manual) Monocytes # (Manual) PT INR D-Dimer ABG pH POC ABG pCO2 POC ABG pO2 ABG pO2 ABG O2 Saturation ABG Base Excess ABG Hemoglobin ABG Oxyhemoglobin ABG Sodium ABG Chloride ABG Glucose Oxyhemoglobin Carboxyhemoglobin Sodium Potassium Chloride Carbon Dioxide BUN Creatinine Glucose POC Glucose 176 H 184 H 161 H Calcium Magnesium Ferritin AST Lactate Dehydrogenase Total Creatine Kinase Troponin T C-Reactive Protein Total Protein Albumin Triglycerides HDL Cholesterol Arterial Blood Glucose Arterial Blood Ionized Calcium Urine WBC (Auto) Vancomycin Trough Salicylates Acetaminophen Coronavirus (PCR) 07/22/21 07/22/21 07/22/21 03:30 04:39 05:29 WBC RBC Hgb Hct RDW Lymph % (Auto) Lymph # (Auto) Seg Neutrophils % Seg Neuts % (Manual) Lymphocytes % (Manual) Nucleated RBC % Seg Neutrophils # Seg Neutrophils # Man Lymphocytes # (Manual) Monocytes # (Manual) PT INR D-Dimer ABG pH POC ABG pCO2 POC ABG pO2 67.4 L ABG pO2 ABG O2 Saturation ABG Base Excess ABG Hemoglobin 10.4 L ABG Oxyhemoglobin 91.8 L ABG Sodium 118.4 L ABG Chloride 114.0 H ABG Glucose 189 H Oxyhemoglobin Carboxyhemoglobin 0.2 L Sodium 146 H Potassium Chloride 112.8 H Carbon Dioxide 21 L BUN 46 H Creatinine Glucose 191 H POC Glucose 191 H Calcium Magnesium Ferritin AST Lactate Dehydrogenase Total Creatine Kinase Troponin T C-Reactive Protein Total Protein Albumin 2.9 L Triglycerides HDL Cholesterol Arterial Blood Glucose 189 H Arterial Blood Ionized Calcium 4.5 L Urine WBC (Auto) Vancomycin Trough Salicylates Acetaminophen Coronavirus (PCR) 07/22/21 07/22/21 07/22/21 12:17 17:54 23:34 WBC RBC Hgb Hct RDW Lymph % (Auto) Lymph # (Auto) Seg Neutrophils % Seg Neuts % (Manual) Lymphocytes % (Manual) Nucleated RBC % Seg Neutrophils # Seg Neutrophils # Man Lymphocytes # (Manual) Monocytes # (Manual) PT INR D-Dimer ABG pH POC ABG pCO2 POC ABG pO2 ABG pO2 ABG O2 Saturation ABG Base Excess ABG Hemoglobin ABG Oxyhemoglobin ABG Sodium ABG Chloride ABG Glucose Oxyhemoglobin Carboxyhemoglobin Sodium Potassium Chloride Carbon Dioxide BUN Creatinine Glucose POC Glucose 206 H 213 H 164 H Calcium Magnesium Ferritin AST Lactate Dehydrogenase Total Creatine Kinase Troponin T C-Reactive Protein Total Protein Albumin Triglycerides HDL Cholesterol Arterial Blood Glucose Arterial Blood Ionized Calcium Urine WBC (Auto) Vancomycin Trough Salicylates Acetaminophen Coronavirus (PCR) 07/23/21 07/23/21 07/23/21 03:30 05:21 09:02 WBC RBC Hgb Hct RDW Lymph % (Auto) Lymph # (Auto) Seg Neutrophils % Seg Neuts % (Manual) Lymphocytes % (Manual) Nucleated RBC % Seg Neutrophils # Seg Neutrophils # Man Lymphocytes # (Manual) Monocytes # (Manual) PT INR D-Dimer ABG pH POC ABG pCO2 POC ABG pO2 70.9 L ABG pO2 ABG O2 Saturation ABG Base Excess ABG Hemoglobin 10.9 L ABG Oxyhemoglobin 92.9 L ABG Sodium 130.2 L ABG Chloride 109.0 H ABG Glucose 177 H Oxyhemoglobin Carboxyhemoglobin 0.1 L Sodium Potassium 5.1 H Chloride Carbon Dioxide BUN 32 H Creatinine Glucose 200 H POC Glucose 191 H Calcium Magnesium Ferritin AST Lactate Dehydrogenase Total Creatine Kinase Troponin T C-Reactive Protein Total Protein Albumin Triglycerides HDL Cholesterol Arterial Blood Glucose 177 H Arterial Blood Ionized Calcium 4.3 L Urine WBC (Auto) Vancomycin Trough Salicylates Acetaminophen Coronavirus (PCR) 07/23/21 07/23/21 07/23/21 09:02 11:34 17:52 WBC 13.8 H RBC Hgb Hct RDW 15.7 H Lymph % (Auto) Lymph # (Auto) Seg Neutrophils % Seg Neuts % (Manual) Lymphocytes % (Manual) Nucleated RBC % Seg Neutrophils # Seg Neutrophils # Man Lymphocytes # (Manual) Monocytes # (Manual) PT INR D-Dimer ABG pH POC ABG pCO2 POC ABG pO2 ABG pO2 ABG O2 Saturation ABG Base Excess ABG Hemoglobin ABG Oxyhemoglobin ABG Sodium ABG Chloride ABG Glucose Oxyhemoglobin Carboxyhemoglobin Sodium Potassium Chloride Carbon Dioxide BUN Creatinine Glucose POC Glucose 208 H 158 H Calcium Magnesium Ferritin AST Lactate Dehydrogenase Total Creatine Kinase Troponin T C-Reactive Protein Total Protein Albumin Triglycerides HDL Cholesterol Arterial Blood Glucose Arterial Blood Ionized Calcium Urine WBC (Auto) Vancomycin Trough Salicylates Acetaminophen Coronavirus (PCR) 07/23/21 07/24/21 07/24/21 23:28 03:06 05:01 WBC RBC Hgb Hct RDW Lymph % (Auto) Lymph # (Auto) Seg Neutrophils % Seg Neuts % (Manual) Lymphocytes % (Manual) Nucleated RBC % Seg Neutrophils # Seg Neutrophils # Man Lymphocytes # (Manual) Monocytes # (Manual) PT INR D-Dimer ABG pH POC ABG pCO2 POC ABG pO2 51.1 L ABG pO2 ABG O2 Saturation ABG Base Excess ABG Hemoglobin ABG Oxyhemoglobin 85.0 L ABG Sodium 135.5 L ABG Chloride ABG Glucose 131 H Oxyhemoglobin Carboxyhemoglobin 0.4 L Sodium Potassium Chloride Carbon Dioxide BUN 29 H Creatinine Glucose 132 H POC Glucose 142 H Calcium 7.8 L Magnesium Ferritin AST Lactate Dehydrogenase Total Creatine Kinase Troponin T C-Reactive Protein Total Protein Albumin Triglycerides HDL Cholesterol Arterial Blood Glucose 131 H Arterial Blood Ionized Calcium 4.5 L Urine WBC (Auto) Vancomycin Trough Salicylates Acetaminophen Coronavirus (PCR) 07/24/21 07/24/21 07/24/21 05:06 11:38 17:26 WBC RBC Hgb Hct RDW Lymph % (Auto) Lymph # (Auto) Seg Neutrophils % Seg Neuts % (Manual) Lymphocytes % (Manual) Nucleated RBC % Seg Neutrophils # Seg Neutrophils # Man Lymphocytes # (Manual) Monocytes # (Manual) PT INR D-Dimer ABG pH POC ABG pCO2 POC ABG pO2 ABG pO2 ABG O2 Saturation ABG Base Excess ABG Hemoglobin ABG Oxyhemoglobin ABG Sodium ABG Chloride ABG Glucose Oxyhemoglobin Carboxyhemoglobin Sodium Potassium Chloride Carbon Dioxide BUN Creatinine Glucose POC Glucose 125 H 215 H 173 H Calcium Magnesium Ferritin AST Lactate Dehydrogenase Total Creatine Kinase Troponin T C-Reactive Protein Total Protein Albumin Triglycerides HDL Cholesterol Arterial Blood Glucose Arterial Blood Ionized Calcium Urine WBC (Auto) Vancomycin Trough Salicylates Acetaminophen Coronavirus (PCR) 07/24/21 07/25/21 07/25/21 23:23 03:33 04:28 WBC RBC Hgb Hct RDW Lymph % (Auto) Lymph # (Auto) Seg Neutrophils % Seg Neuts % (Manual) Lymphocytes % (Manual) Nucleated RBC % Seg Neutrophils # Seg Neutrophils # Man Lymphocytes # (Manual) Monocytes # (Manual) PT INR D-Dimer ABG pH POC ABG pCO2 POC ABG pO2 ABG pO2 ABG O2 Saturation ABG Base Excess ABG Hemoglobin ABG Oxyhemoglobin ABG Sodium 135.6 L ABG Chloride ABG Glucose 174 H Oxyhemoglobin Carboxyhemoglobin 0.1 L Sodium Potassium 5.1 H Chloride 107.7 H Carbon Dioxide BUN 29 H Creatinine Glucose 164 H POC Glucose 133 H Calcium 7.3 L Magnesium Ferritin AST Lactate Dehydrogenase Total Creatine Kinase Troponin T C-Reactive Protein Total Protein Albumin Triglycerides HDL Cholesterol Arterial Blood Glucose 174 H Arterial Blood Ionized Calcium Urine WBC (Auto) Vancomycin Trough Salicylates Acetaminophen Coronavirus (PCR) 07/25/21 07/25/21 07/25/21 04:28 04:28 05:17 WBC 14.9 H RBC Hgb Hct RDW 15.6 H Lymph % (Auto) Lymph # (Auto) Seg Neutrophils % Seg Neuts % (Manual) 92.0 H Lymphocytes % (Manual) 2.0 L Nucleated RBC % Seg Neutrophils # Seg Neutrophils # Man 13.7 H Lymphocytes # (Manual) 0.3 L Monocytes # (Manual) PT INR D-Dimer ABG pH POC ABG pCO2 POC ABG pO2 ABG pO2 ABG O2 Saturation ABG Base Excess ABG Hemoglobin ABG Oxyhemoglobin ABG Sodium ABG Chloride ABG Glucose Oxyhemoglobin Carboxyhemoglobin Sodium Potassium Chloride Carbon Dioxide BUN Creatinine Glucose POC Glucose 173 H Calcium Magnesium Ferritin AST Lactate Dehydrogenase Total Creatine Kinase Troponin T C-Reactive Protein Total Protein Albumin Triglycerides HDL Cholesterol Arterial Blood Glucose Arterial Blood Ionized Calcium Urine WBC (Auto) Vancomycin Trough 22.9 H Salicylates Acetaminophen Coronavirus (PCR) 07/25/21 07/25/21 07/25/21 11:29 17:00 23:46 WBC RBC Hgb Hct RDW Lymph % (Auto) Lymph # (Auto) Seg Neutrophils % Seg Neuts % (Manual) Lymphocytes % (Manual) Nucleated RBC % Seg Neutrophils # Seg Neutrophils # Man Lymphocytes # (Manual) Monocytes # (Manual) PT INR D-Dimer ABG pH POC ABG pCO2 POC ABG pO2 ABG pO2 ABG O2 Saturation ABG Base Excess ABG Hemoglobin ABG Oxyhemoglobin ABG Sodium ABG Chloride ABG Glucose Oxyhemoglobin Carboxyhemoglobin Sodium Potassium Chloride Carbon Dioxide BUN Creatinine Glucose POC Glucose 191 H 184 H 192 H Calcium Magnesium Ferritin AST Lactate Dehydrogenase Total Creatine Kinase Troponin T C-Reactive Protein Total Protein Albumin Triglycerides HDL Cholesterol Arterial Blood Glucose Arterial Blood Ionized Calcium Urine WBC (Auto) Vancomycin Trough Salicylates Acetaminophen Coronavirus (PCR) 07/26/21 07/26/21 07/26/21 03:17 05:33 06:07 WBC 18.0 H RBC Hgb Hct RDW 15.6 H Lymph % (Auto) Lymph # (Auto) Seg Neutrophils % Seg Neuts % (Manual) 87.0 H Lymphocytes % (Manual) 5.0 L Nucleated RBC % Seg Neutrophils # Seg Neutrophils # Man 15.7 H Lymphocytes # (Manual) 0.9 L Monocytes # (Manual) 1.1 H PT INR D-Dimer ABG pH POC ABG pCO2 POC ABG pO2 73.7 L ABG pO2 ABG O2 Saturation ABG Base Excess ABG Hemoglobin 11.8 L ABG Oxyhemoglobin 93.6 L ABG Sodium ABG Chloride ABG Glucose 183 H Oxyhemoglobin Carboxyhemoglobin 0.2 L Sodium Potassium Chloride Carbon Dioxide BUN Creatinine Glucose POC Glucose 172 H Calcium Magnesium Ferritin AST Lactate Dehydrogenase Total Creatine Kinase Troponin T C-Reactive Protein Total Protein Albumin Triglycerides HDL Cholesterol Arterial Blood Glucose 183 H Arterial Blood Ionized Calcium Urine WBC (Auto) Vancomycin Trough Salicylates Acetaminophen Coronavirus (PCR) 07/26/21 07/26/21 07/26/21 06:07 11:46 13:53 WBC RBC Hgb Hct RDW Lymph % (Auto) Lymph # (Auto) Seg Neutrophils % Seg Neuts % (Manual) Lymphocytes % (Manual) Nucleated RBC % Seg Neutrophils # Seg Neutrophils # Man Lymphocytes # (Manual) Monocytes # (Manual) PT INR D-Dimer 6992.45 H ABG pH POC ABG pCO2 POC ABG pO2 ABG pO2 ABG O2 Saturation ABG Base Excess ABG Hemoglobin ABG Oxyhemoglobin ABG Sodium ABG Chloride ABG Glucose Oxyhemoglobin Carboxyhemoglobin Sodium Potassium 5.4 H Chloride Carbon Dioxide BUN 33 H Creatinine Glucose 155 H POC Glucose 142 H Calcium 8.3 L Magnesium Ferritin AST Lactate Dehydrogenase Total Creatine Kinase Troponin T C-Reactive Protein Total Protein Albumin Triglycerides HDL Cholesterol Arterial Blood Glucose Arterial Blood Ionized Calcium Urine WBC (Auto) Vancomycin Trough Salicylates Acetaminophen Coronavirus (PCR) 07/26/21 07/26/21 07/26/21 13:53 14:16 17:29 WBC RBC Hgb Hct RDW Lymph % (Auto) Lymph # (Auto) Seg Neutrophils % Seg Neuts % (Manual) Lymphocytes % (Manual) Nucleated RBC % Seg Neutrophils # Seg Neutrophils # Man Lymphocytes # (Manual) Monocytes # (Manual) PT INR D-Dimer ABG pH POC ABG pCO2 POC ABG pO2 ABG pO2 ABG O2 Saturation ABG Base Excess ABG Hemoglobin ABG Oxyhemoglobin ABG Sodium ABG Chloride ABG Glucose Oxyhemoglobin Carboxyhemoglobin Sodium Potassium Chloride Carbon Dioxide BUN Creatinine Glucose 200 H POC Glucose 185 H Calcium Magnesium Ferritin 348.4 H AST Lactate Dehydrogenase 515 H Total Creatine Kinase Troponin T C-Reactive Protein Total Protein Albumin Triglycerides HDL Cholesterol Arterial Blood Glucose Arterial Blood Ionized Calcium Urine WBC (Auto) Vancomycin Trough Salicylates Acetaminophen Coronavirus (PCR) 07/26/21 07/27/21 07/27/21 23:30 04:00 04:48 WBC 16.5 H RBC Hgb Hct RDW Lymph % (Auto) Lymph # (Auto) Seg Neutrophils % Seg Neuts % (Manual) 92.0 H Lymphocytes % (Manual) 3.0 L Nucleated RBC % 1.0 H Seg Neutrophils # Seg Neutrophils # Man 15.2 H Lymphocytes # (Manual) 0.5 L Monocytes # (Manual) PT INR D-Dimer ABG pH 7.481 H POC ABG pCO2 POC ABG pO2 70.4 L ABG pO2 ABG O2 Saturation ABG Base Excess ABG Hemoglobin 11.6 L ABG Oxyhemoglobin ABG Sodium 131.9 L ABG Chloride ABG Glucose 207 H Oxyhemoglobin Carboxyhemoglobin Sodium Potassium Chloride Carbon Dioxide BUN Creatinine Glucose POC Glucose 186 H Calcium Magnesium Ferritin AST Lactate Dehydrogenase Total Creatine Kinase Troponin T C-Reactive Protein Total Protein Albumin Triglycerides HDL Cholesterol Arterial Blood Glucose 207 H Arterial Blood Ionized Calcium Urine WBC (Auto) Vancomycin Trough Salicylates Acetaminophen Coronavirus (PCR) 07/27/21 07/27/21 07/27/21 04:48 05:04 11:36 WBC RBC Hgb Hct RDW Lymph % (Auto) Lymph # (Auto) Seg Neutrophils % Seg Neuts % (Manual) Lymphocytes % (Manual) Nucleated RBC % Seg Neutrophils # Seg Neutrophils # Man Lymphocytes # (Manual) Monocytes # (Manual) PT INR D-Dimer ABG pH POC ABG pCO2 POC ABG pO2 ABG pO2 ABG O2 Saturation ABG Base Excess ABG Hemoglobin ABG Oxyhemoglobin ABG Sodium ABG Chloride ABG Glucose Oxyhemoglobin Carboxyhemoglobin Sodium Potassium Chloride Carbon Dioxide BUN 35 H Creatinine Glucose 216 H POC Glucose 201 H 142 H Calcium Magnesium Ferritin AST Lactate Dehydrogenase Total Creatine Kinase Troponin T C-Reactive Protein Total Protein Albumin Triglycerides HDL Cholesterol Arterial Blood Glucose Arterial Blood Ionized Calcium Urine WBC (Auto) Vancomycin Trough Salicylates Acetaminophen Coronavirus (PCR) 07/27/21 07/27/21 07/28/21 18:14 22:03 04:00 WBC RBC Hgb Hct RDW Lymph % (Auto) Lymph # (Auto) Seg Neutrophils % Seg Neuts % (Manual) Lymphocytes % (Manual) Nucleated RBC % Seg Neutrophils # Seg Neutrophils # Man Lymphocytes # (Manual) Monocytes # (Manual) PT INR D-Dimer ABG pH 7.491 H POC ABG pCO2 POC ABG pO2 109.2 H ABG pO2 ABG O2 Saturation ABG Base Excess ABG Hemoglobin ABG Oxyhemoglobin ABG Sodium 133.9 L ABG Chloride ABG Glucose 163 H Oxyhemoglobin Carboxyhemoglobin Sodium Potassium Chloride Carbon Dioxide BUN Creatinine Glucose POC Glucose 166 H 149 H Calcium Magnesium Ferritin AST Lactate Dehydrogenase Total Creatine Kinase Troponin T C-Reactive Protein Total Protein Albumin Triglycerides HDL Cholesterol Arterial Blood Glucose 163 H Arterial Blood Ionized Calcium Urine WBC (Auto) Vancomycin Trough Salicylates Acetaminophen Coronavirus (PCR) 07/28/21 07/28/21 07/28/21 04:10 04:10 04:10 WBC RBC Hgb Hct RDW Lymph % (Auto) Lymph # (Auto) Seg Neutrophils % Seg Neuts % (Manual) Lymphocytes % (Manual) Nucleated RBC % Seg Neutrophils # Seg Neutrophils # Man Lymphocytes # (Manual) Monocytes # (Manual) PT INR D-Dimer 5318.85 H ABG pH POC ABG pCO2 POC ABG pO2 ABG pO2 ABG O2 Saturation ABG Base Excess ABG Hemoglobin ABG Oxyhemoglobin ABG Sodium ABG Chloride ABG Glucose Oxyhemoglobin Carboxyhemoglobin Sodium Potassium Chloride Carbon Dioxide 31 H BUN 35 H Creatinine Glucose 187 H POC Glucose Calcium Magnesium Ferritin 324.6 H AST Lactate Dehydrogenase 414 H Total Creatine Kinase Troponin T C-Reactive Protein Total Protein Albumin Triglycerides HDL Cholesterol Arterial Blood Glucose Arterial Blood Ionized Calcium Urine WBC (Auto) Vancomycin Trough Salicylates Acetaminophen Coronavirus (PCR) 07/28/21 07/28/21 07/28/21 04:10 05:25 12:10 WBC 13.7 H RBC Hgb Hct RDW Lymph % (Auto) Lymph # (Auto) Seg Neutrophils % Seg Neuts % (Manual) Lymphocytes % (Manual) Nucleated RBC % Seg Neutrophils # Seg Neutrophils # Man Lymphocytes # (Manual) Monocytes # (Manual) PT INR D-Dimer ABG pH POC ABG pCO2 POC ABG pO2 ABG pO2 ABG O2 Saturation ABG Base Excess ABG Hemoglobin ABG Oxyhemoglobin ABG Sodium ABG Chloride ABG Glucose Oxyhemoglobin Carboxyhemoglobin Sodium Potassium Chloride Carbon Dioxide BUN Creatinine Glucose POC Glucose 152 H 162 H Calcium Magnesium Ferritin AST Lactate Dehydrogenase Total Creatine Kinase Troponin T C-Reactive Protein Total Protein Albumin Triglycerides HDL Cholesterol Arterial Blood Glucose Arterial Blood Ionized Calcium Urine WBC (Auto) Vancomycin Trough Salicylates Acetaminophen Coronavirus (PCR) 07/28/21 07/28/21 07/29/21 17:44 21:58 04:00 WBC RBC Hgb Hct RDW Lymph % (Auto) Lymph # (Auto) Seg Neutrophils % Seg Neuts % (Manual) Lymphocytes % (Manual) Nucleated RBC % Seg Neutrophils # Seg Neutrophils # Man Lymphocytes # (Manual) Monocytes # (Manual) PT INR D-Dimer ABG pH 7.510 H POC ABG pCO2 POC ABG pO2 113.0 H ABG pO2 ABG O2 Saturation ABG Base Excess ABG Hemoglobin 11.1 L ABG Oxyhemoglobin ABG Sodium 135.0 L ABG Chloride ABG Glucose 162 H Oxyhemoglobin Carboxyhemoglobin 0.3 L Sodium Potassium Chloride Carbon Dioxide BUN Creatinine Glucose POC Glucose 152 H 139 H Calcium Magnesium Ferritin AST Lactate Dehydrogenase Total Creatine Kinase Troponin T C-Reactive Protein Total Protein Albumin Triglycerides HDL Cholesterol Arterial Blood Glucose 162 H Arterial Blood Ionized Calcium 4.4 L Urine WBC (Auto) Vancomycin Trough Salicylates Acetaminophen Coronavirus (PCR) 07/29/21 07/29/21 07/29/21 04:35 04:35 05:47 WBC 12.0 H RBC Hgb Hct RDW Lymph % (Auto) Lymph # (Auto) Seg Neutrophils % Seg Neuts % (Manual) Lymphocytes % (Manual) Nucleated RBC % Seg Neutrophils # Seg Neutrophils # Man Lymphocytes # (Manual) Monocytes # (Manual) PT INR D-Dimer ABG pH POC ABG pCO2 POC ABG pO2 ABG pO2 ABG O2 Saturation ABG Base Excess ABG Hemoglobin ABG Oxyhemoglobin ABG Sodium ABG Chloride ABG Glucose Oxyhemoglobin Carboxyhemoglobin Sodium Potassium Chloride Carbon Dioxide BUN 34 H Creatinine Glucose 170 H POC Glucose 153 H Calcium Magnesium Ferritin AST Lactate Dehydrogenase Total Creatine Kinase Troponin T C-Reactive Protein Total Protein Albumin Triglycerides HDL Cholesterol Arterial Blood Glucose Arterial Blood Ionized Calcium Urine WBC (Auto) Vancomycin Trough Salicylates Acetaminophen Coronavirus (PCR) 07/29/21 07/29/21 07/29/21 11:25 16:29 23:39 WBC RBC Hgb Hct RDW Lymph % (Auto) Lymph # (Auto) Seg Neutrophils % Seg Neuts % (Manual) Lymphocytes % (Manual) Nucleated RBC % Seg Neutrophils # Seg Neutrophils # Man Lymphocytes # (Manual) Monocytes # (Manual) PT INR D-Dimer ABG pH POC ABG pCO2 POC ABG pO2 ABG pO2 ABG O2 Saturation ABG Base Excess ABG Hemoglobin ABG Oxyhemoglobin ABG Sodium ABG Chloride ABG Glucose Oxyhemoglobin Carboxyhemoglobin Sodium Potassium Chloride Carbon Dioxide BUN Creatinine Glucose POC Glucose 142 H 167 H 141 H Calcium Magnesium Ferritin AST Lactate Dehydrogenase Total Creatine Kinase Troponin T C-Reactive Protein Total Protein Albumin Triglycerides HDL Cholesterol Arterial Blood Glucose Arterial Blood Ionized Calcium Urine WBC (Auto) Vancomycin Trough Salicylates Acetaminophen Coronavirus (PCR) 07/30/21 07/30/21 07/30/21 05:00 05:00 05:00 WBC RBC Hgb Hct RDW Lymph % (Auto) Lymph # (Auto) Seg Neutrophils % Seg Neuts % (Manual) Lymphocytes % (Manual) Nucleated RBC % Seg Neutrophils # Seg Neutrophils # Man Lymphocytes # (Manual) Monocytes # (Manual) PT INR D-Dimer 1818.72 H ABG pH POC ABG pCO2 POC ABG pO2 ABG pO2 ABG O2 Saturation ABG Base Excess ABG Hemoglobin ABG Oxyhemoglobin ABG Sodium ABG Chloride ABG Glucose Oxyhemoglobin Carboxyhemoglobin Sodium Potassium Chloride Carbon Dioxide BUN 34 H Creatinine Glucose 184 H POC Glucose Calcium Magnesium Ferritin 242.1 H AST Lactate Dehydrogenase 304 H Total Creatine Kinase Troponin T C-Reactive Protein Total Protein Albumin Triglycerides HDL Cholesterol Arterial Blood Glucose Arterial Blood Ionized Calcium Urine WBC (Auto) Vancomycin Trough Salicylates Acetaminophen Coronavirus (PCR) 07/30/21 07/30/21 07/30/21 05:00 06:08 11:41 WBC RBC 3.45 L Hgb 10.0 L Hct 29.9 L RDW Lymph % (Auto) Lymph # (Auto) Seg Neutrophils % Seg Neuts % (Manual) Lymphocytes % (Manual) Nucleated RBC % Seg Neutrophils # Seg Neutrophils # Man Lymphocytes # (Manual) Monocytes # (Manual) PT INR D-Dimer ABG pH POC ABG pCO2 POC ABG pO2 ABG pO2 ABG O2 Saturation ABG Base Excess ABG Hemoglobin ABG Oxyhemoglobin ABG Sodium ABG Chloride ABG Glucose Oxyhemoglobin Carboxyhemoglobin Sodium Potassium Chloride Carbon Dioxide BUN Creatinine Glucose POC Glucose 171 H 182 H Calcium Magnesium Ferritin AST Lactate Dehydrogenase Total Creatine Kinase Troponin T C-Reactive Protein Total Protein Albumin Triglycerides HDL Cholesterol Arterial Blood Glucose Arterial Blood Ionized Calcium Urine WBC (Auto) Vancomycin Trough Salicylates Acetaminophen Coronavirus (PCR) 07/30/21 07/30/21 07/30/21 17:28 22:22 23:43 WBC RBC Hgb Hct RDW Lymph % (Auto) Lymph # (Auto) Seg Neutrophils % Seg Neuts % (Manual) Lymphocytes % (Manual) Nucleated RBC % Seg Neutrophils # Seg Neutrophils # Man Lymphocytes # (Manual) Monocytes # (Manual) PT INR D-Dimer ABG pH POC ABG pCO2 POC ABG pO2 ABG pO2 ABG O2 Saturation ABG Base Excess ABG Hemoglobin ABG Oxyhemoglobin ABG Sodium ABG Chloride ABG Glucose Oxyhemoglobin Carboxyhemoglobin Sodium Potassium Chloride Carbon Dioxide BUN Creatinine Glucose POC Glucose 176 H 150 H 161 H Calcium Magnesium Ferritin AST Lactate Dehydrogenase Total Creatine Kinase Troponin T C-Reactive Protein Total Protein Albumin Triglycerides HDL Cholesterol Arterial Blood Glucose Arterial Blood Ionized Calcium Urine WBC (Auto) Vancomycin Trough Salicylates Acetaminophen Coronavirus (PCR) 07/31/21 07/31/21 07/31/21 04:00 05:25 05:50 WBC 11.5 H RBC Hgb Hct RDW Lymph % (Auto) Lymph # (Auto) Seg Neutrophils % Seg Neuts % (Manual) Lymphocytes % (Manual) Nucleated RBC % Seg Neutrophils # Seg Neutrophils # Man Lymphocytes # (Manual) Monocytes # (Manual) PT INR D-Dimer ABG pH POC ABG pCO2 POC ABG pO2 ABG pO2 ABG O2 Saturation ABG Base Excess ABG Hemoglobin 11.5 L ABG Oxyhemoglobin ABG Sodium ABG Chloride ABG Glucose 143 H Oxyhemoglobin Carboxyhemoglobin Sodium Potassium Chloride Carbon Dioxide BUN Creatinine Glucose POC Glucose 150 H Calcium Magnesium Ferritin AST Lactate Dehydrogenase Total Creatine Kinase Troponin T C-Reactive Protein Total Protein Albumin Triglycerides HDL Cholesterol Arterial Blood Glucose 143 H Arterial Blood Ionized Calcium Urine WBC (Auto) Vancomycin Trough Salicylates Acetaminophen Coronavirus (PCR) 07/31/21 07/31/21 07/31/21 05:50 11:36 17:30 WBC RBC Hgb Hct RDW Lymph % (Auto) Lymph # (Auto) Seg Neutrophils % Seg Neuts % (Manual) Lymphocytes % (Manual) Nucleated RBC % Seg Neutrophils # Seg Neutrophils # Man Lymphocytes # (Manual) Monocytes # (Manual) PT INR D-Dimer ABG pH POC ABG pCO2 POC ABG pO2 ABG pO2 ABG O2 Saturation ABG Base Excess ABG Hemoglobin ABG Oxyhemoglobin ABG Sodium ABG Chloride ABG Glucose Oxyhemoglobin Carboxyhemoglobin Sodium Potassium Chloride Carbon Dioxide BUN 32 H Creatinine Glucose 158 H POC Glucose 179 H 115 H Calcium Magnesium Ferritin AST Lactate Dehydrogenase Total Creatine Kinase Troponin T C-Reactive Protein Total Protein Albumin Triglycerides HDL Cholesterol Arterial Blood Glucose Arterial Blood Ionized Calcium Urine WBC (Auto) Vancomycin Trough Salicylates Acetaminophen Coronavirus (PCR) 07/31/21 08/01/21 08/01/21 22:36 04:00 04:58 WBC RBC Hgb Hct RDW Lymph % (Auto) Lymph # (Auto) Seg Neutrophils % Seg Neuts % (Manual) Lymphocytes % (Manual) Nucleated RBC % Seg Neutrophils # Seg Neutrophils # Man Lymphocytes # (Manual) Monocytes # (Manual) PT INR D-Dimer ABG pH 7.477 H POC ABG pCO2 POC ABG pO2 ABG pO2 ABG O2 Saturation ABG Base Excess ABG Hemoglobin 11.4 L ABG Oxyhemoglobin ABG Sodium 134.4 L ABG Chloride ABG Glucose 173 H Oxyhemoglobin Carboxyhemoglobin 0.3 L Sodium Potassium Chloride Carbon Dioxide BUN Creatinine Glucose POC Glucose 150 H 153 H Calcium Magnesium Ferritin AST Lactate Dehydrogenase Total Creatine Kinase Troponin T C-Reactive Protein Total Protein Albumin Triglycerides HDL Cholesterol Arterial Blood Glucose 173 H Arterial Blood Ionized Calcium Urine WBC (Auto) Vancomycin Trough Salicylates Acetaminophen Coronavirus (PCR) 08/01/21 08/01/21 08/01/21 06:00 06:00 06:00 WBC RBC Hgb Hct RDW Lymph % (Auto) Lymph # (Auto) Seg Neutrophils % Seg Neuts % (Manual) Lymphocytes % (Manual) Nucleated RBC % Seg Neutrophils # Seg Neutrophils # Man Lymphocytes # (Manual) Monocytes # (Manual) PT INR D-Dimer 1503.43 H ABG pH POC ABG pCO2 POC ABG pO2 ABG pO2 ABG O2 Saturation ABG Base Excess ABG Hemoglobin ABG Oxyhemoglobin ABG Sodium ABG Chloride ABG Glucose Oxyhemoglobin Carboxyhemoglobin Sodium 136 L Potassium Chloride Carbon Dioxide 31 H BUN 28 H Creatinine 0.5 L Glucose 154 H POC Glucose Calcium Magnesium Ferritin 244.0 H AST Lactate Dehydrogenase 369 H Total Creatine Kinase Troponin T C-Reactive Protein Total Protein Albumin Triglycerides HDL Cholesterol Arterial Blood Glucose Arterial Blood Ionized Calcium Urine WBC (Auto) Vancomycin Trough Salicylates Acetaminophen Coronavirus (PCR) 09/11/0908/01/21 08/01/21 12:32 18:30 23:23 WBC RBC Hgb Hct RDW Lymph % (Auto) Lymph # (Auto) Seg Neutrophils % Seg Neuts % (Manual) Lymphocytes % (Manual) Nucleated RBC % Seg Neutrophils # Seg Neutrophils # Man Lymphocytes # (Manual) Monocytes # (Manual) PT INR D-Dimer ABG pH POC ABG pCO2 POC ABG pO2 ABG pO2 ABG O2 Saturation ABG Base Excess ABG Hemoglobin ABG Oxyhemoglobin ABG Sodium ABG Chloride ABG Glucose Oxyhemoglobin Carboxyhemoglobin Sodium Potassium Chloride Carbon Dioxide BUN Creatinine Glucose POC Glucose 144 H 127 H 123 H Calcium Magnesium Ferritin AST Lactate Dehydrogenase Total Creatine Kinase Troponin T C-Reactive Protein Total Protein Albumin Triglycerides HDL Cholesterol Arterial Blood Glucose Arterial Blood Ionized Calcium Urine WBC (Auto) Vancomycin Trough Salicylates Acetaminophen Coronavirus (PCR) 08/02/21 08/02/21 08/02/21 05:30 05:30 11:18 WBC 11.2 H RBC Hgb Hct RDW Lymph % (Auto) Lymph # (Auto) Seg Neutrophils % Seg Neuts % (Manual) Lymphocytes % (Manual) Nucleated RBC % Seg Neutrophils # Seg Neutrophils # Man Lymphocytes # (Manual) Monocytes # (Manual) PT INR D-Dimer ABG pH POC ABG pCO2 POC ABG pO2 ABG pO2 ABG O2 Saturation ABG Base Excess ABG Hemoglobin ABG Oxyhemoglobin ABG Sodium ABG Chloride ABG Glucose Oxyhemoglobin Carboxyhemoglobin Sodium Potassium Chloride Carbon Dioxide 33 H BUN 23 H Creatinine 0.5 L Glucose 108 H POC Glucose 131 H Calcium Magnesium Ferritin AST Lactate Dehydrogenase Total Creatine Kinase Troponin T C-Reactive Protein Total Protein Albumin Triglycerides HDL Cholesterol Arterial Blood Glucose Arterial Blood Ionized Calcium Urine WBC (Auto) Vancomycin Trough Salicylates Acetaminophen Coronavirus (PCR) 08/02/21 08/03/21 08/03/21 17:22 05:33 05:33 WBC RBC Hgb Hct RDW Lymph % (Auto) Lymph # (Auto) Seg Neutrophils % Seg Neuts % (Manual) Lymphocytes % (Manual) Nucleated RBC % Seg Neutrophils # Seg Neutrophils # Man Lymphocytes # (Manual) Monocytes # (Manual) PT 15.4 H INR 1.17 H D-Dimer 1383.44 H ABG pH POC ABG pCO2 POC ABG pO2 ABG pO2 ABG O2 Saturation ABG Base Excess ABG Hemoglobin ABG Oxyhemoglobin ABG Sodium ABG Chloride ABG Glucose Oxyhemoglobin Carboxyhemoglobin Sodium Potassium Chloride Carbon Dioxide BUN Creatinine Glucose POC Glucose 127 H Calcium Magnesium Ferritin AST Lactate Dehydrogenase 427 H Total Creatine Kinase Troponin T C-Reactive Protein Total Protein Albumin Triglycerides HDL Cholesterol Arterial Blood Glucose Arterial Blood Ionized Calcium Urine WBC (Auto) Vancomycin Trough Salicylates Acetaminophen Coronavirus (PCR) 08/03/21 08/03/21 08/03/21 05:33 05:33 05:33 WBC RBC Hgb Hct RDW 15.4 H Lymph % (Auto) Lymph # (Auto) Seg Neutrophils % Seg Neuts % (Manual) Lymphocytes % (Manual) Nucleated RBC % Seg Neutrophils # Seg Neutrophils # Man Lymphocytes # (Manual) Monocytes # (Manual) PT INR D-Dimer ABG pH POC ABG pCO2 POC ABG pO2 ABG pO2 ABG O2 Saturation ABG Base Excess ABG Hemoglobin ABG Oxyhemoglobin ABG Sodium ABG Chloride ABG Glucose Oxyhemoglobin Carboxyhemoglobin Sodium 136 L Potassium Chloride Carbon Dioxide BUN 28 H Creatinine Glucose 114 H POC Glucose Calcium Magnesium Ferritin 263.2 H AST Lactate Dehydrogenase Total Creatine Kinase Troponin T C-Reactive Protein Total Protein Albumin Triglycerides HDL Cholesterol Arterial Blood Glucose Arterial Blood Ionized Calcium Urine WBC (Auto) Vancomycin Trough Salicylates Acetaminophen Coronavirus (PCR) 08/03/21 08/03/21 05:59 07:57 WBC RBC Hgb Hct RDW Lymph % (Auto) Lymph # (Auto) Seg Neutrophils % Seg Neuts % (Manual) Lymphocytes % (Manual) Nucleated RBC % Seg Neutrophils # Seg Neutrophils # Man Lymphocytes # (Manual) Monocytes # (Manual) PT INR D-Dimer ABG pH POC ABG pCO2 POC ABG pO2 ABG pO2 ABG O2 Saturation ABG Base Excess ABG Hemoglobin ABG Oxyhemoglobin ABG Sodium ABG Chloride ABG Glucose Oxyhemoglobin Carboxyhemoglobin Sodium Potassium Chloride Carbon Dioxide BUN Creatinine Glucose POC Glucose 110 H 124 H Calcium Magnesium Ferritin AST Lactate Dehydrogenase Total Creatine Kinase Troponin T C-Reactive Protein Total Protein Albumin Triglycerides HDL Cholesterol Arterial Blood Glucose Arterial Blood Ionized Calcium Urine WBC (Auto) Vancomycin Trough Salicylates Acetaminophen Coronavirus (PCR)
[2021-08-03] MEDS: ENOXAPARIN 100 MG/1 ML INJ SUB-Q SCH ×2 (10:28→22:15)
[2021-08-03] MEDS: FAMOTIDINE 20 MG/2 ML INJ IV SCH ×2 (10:28→22:16)
--- NOTE | 2021-08-03 14:14 | Progress Note ---
Assessment and Plan Assessment and plan: Patient is a 55-year-old female history of obesity diabetes, anxiety, hypertension who was admitted with severe COVID-19 pneumonia also found to have multiple subsegmental PEs, ION and sepsis. #Acute metabolic encephalopathy -Improving -Continue delirium protocol #Severe COVID-19 pneumonia -Extubated 08/01 -Status post remdesivir & Acemtra -Methylprednisone weaning per CCM #Tricuspid valve thrombus -Continue therapeutic Lovenox -Cardiology following -Repeat echo in 3 months #Multiple subsegmental pulmonary embolism, LLE DVT -Lovenox, SCDs to lower extremity -Continue to monitor SPO2 #History of type 2 diabetes -POC glucose within goal (140-180) -Continue as needed SSI Total Time Spent with Patient (Minutes): 20 minutes - Patient Problems (1) Acute encephalopathy Current Visit: Yes Status: Acute (2) Multiple pulmonary emboli Current Visit: Yes Status: Acute (3) Right ventricular thrombus Current Visit: Yes Status: Acute History Interval history: Patient transferred from ICU on 913. Currently clinically stable on 2 L O2. Patient alert to self with minimal response to commands, awaiting speech evaluation. Hospitalist Physical - Constitutional Vitals: Temp Pulse Resp BP Pulse Ox 99.5 F 99 H 20 119/69 86 08/03/21 11:07 08/03/21 11:07 08/03/21 11:07 08/03/21 11:07 08/03/21 11:07 General appearance: Present: no acute distress, other - EENT Eyes: Present: PERRL, EOM intact - Respiratory Respiratory effort: normal Respiratory: bilateral: CTA - Cardiovascular Rhythm: regular Heart Sounds: Present: S1 & S2 - Extremities Extremities: pulses intact Extremity abnormal: edema (RUE) - Abdominal General gastrointestinal: soft, non-tender, non-distended - Integumentary Integumentary: Present: warm, dry - Neurologic Neurologic: moves all extremities - Allied Health Allied health notes reviewed: nursing, social work HEART Score - HEART Score Troponin: Troponin T 0.106 ng/mL (0.00-0.029) H* 07/18/21 16:00 Results - Labs CBC & Chem 7: 08/03/21 05:33 08/03/21 05:33 Labs: Laboratory Last Values WBC 10.1 K/mm3 (4.5-11.0) 08/03/21 05:33 RBC 3.66 M/mm3 (3.65-5.03) 08/03/21 05:33 Hgb 10.7 gm/dl (10.1-14.3) 08/03/21 05:33 Hct 32.2 % (30.3-42.9) 08/03/21 05:33 MCV 88 fl (79-97) 08/03/21 05:33 MCH 29 pg (28-32) 08/03/21 05:33 MCHC 33 % (30-34) 08/03/21 05:33 RDW 15.4 % (13.2-15.2) H 08/03/21 05:33 Plt Count 286 K/mm3 (140-440) 08/03/21 05:33 Lymph % (Auto) 10.7 % (13.4-35.0) L 07/19/21 04:59 [place] % (Auto) 4.8 % (0.0-7.3) 07/19/21 04:59 Eos % (Auto) 0.1 % (0.0-4.3) 07/19/21 04:59 Baso % (Auto) 0.1 % (0.0-1.8) 07/19/21 04:59 Lymph # (Auto) 1.1 K/mm3 (1.2-5.4) L 07/19/21 04:59 [place] # (Auto) 0.5 K/mm3 (0.0-0.8) 07/19/21 04:59 Eos # (Auto) 0.0 K/mm3 (0.0-0.4) 07/19/21 04:59 Baso # (Auto) 0.0 K/mm3 (0.0-0.1) 07/19/21 04:59 Add Manual Diff Complete 07/27/21 04:48 Total Counted 100 07/27/21 04:48 Seg Neutrophils % Sewing Machine Operator Zipper 07/27/21 04:48 Seg Neuts % (Manual) 92.0 % (40.0-70.0) H 07/27/21 04:48 Band Neutrophils % 1.0 % 07/26/21 06:07 Lymphocytes % (Manual) 3.0 % (13.4-35.0) L 07/27/21 04:48 Monocytes % (Manual) 5.0 % (0.0-7.3) 07/27/21 04:48 Metamyelocytes % 1.0 % 07/26/21 06:07 Myelocytes % 1.0 % 07/25/21 04:28 Nucleated RBC % 1.0 % (0.0-0.9) H 07/27/21 04:48 Seg Neutrophils # 8.7 K/mm3 (1.8-7.7) H 07/19/21 04:59 Seg Neutrophils # Man 15.2 K/mm3 (1.8-7.7) H 07/27/21 04:48 Band Neutrophils # 0.0 K/mm3 07/27/21 04:48 Lymphocytes # (Manual) 0.5 K/mm3 (1.2-5.4) L 07/27/21 04:48 Abs React Lymphs (Man) 0.0 K/mm3 07/27/21 04:48 Monocytes # (Manual) 0.8 K/mm3 (0.0-0.8) 07/27/21 04:48 Eosinophils # (Manual) 0.0 K/mm3 (0.0-0.4) 07/27/21 04:48 Basophils # (Manual) 0.0 K/mm3 (0.0-0.1) 07/27/21 04:48 Metamyelocytes # 0.0 K/mm3 07/27/21 04:48 Myelocytes # 0.0 K/mm3 07/27/21 04:48 Promyelocytes # 0.0 K/mm3 07/27/21 04:48 Blast Cells # 0.0 K/mm3 07/27/21 04:48 WBC Morphology Not Reportable 07/27/21 04:48 Hypersegmented Neuts Not Reportable 07/27/21 04:48 Hyposegmented Neuts Not Reportable 07/27/21 04:48 Hypogranular Neuts Not Reportable 07/27/21 04:48 Smudge Cells Not Reportable 07/27/21 04:48 Toxic Granulation Not Reportable 07/27/21 04:48 Toxic Vacuolation Not Reportable 07/27/21 04:48 Dohle Bodies Not Reportable 07/27/21 04:48 Pelger-Huet Anomaly Not Reportable 07/27/21 04:48 Alonzo Rods Not Reportable 07/27/21 04:48 Platelet Estimate Consistent w auto 07/27/21 04:48 Clumped Platelets Not Reportable 07/27/21 04:48 Plt Clumps, EDTA Not Reportable 07/27/21 04:48 Large Platelets Not Reportable 07/27/21 04:48 Giant Platelets Not Reportable 07/27/21 04:48 Platelet Satelliting Not Reportable 07/27/21 04:48 Plt Morphology Comment Not Reportable 07/27/21 04:48 RBC Morphology Normal 07/27/21 04:48 Dimorphic RBCs Not Reportable 07/27/21 04:48 Polychromasia Not Reportable 07/27/21 04:48 Hypochromasia Not Reportable 07/27/21 04:48 Poikilocytosis Not Reportable 07/27/21 04:48 Anisocytosis Not Reportable 07/27/21 04:48 Microcytosis Not Reportable 07/27/21 04:48 Macrocytosis Not Reportable 07/27/21 04:48 Spherocytes Not Reportable 07/27/21 04:48 Pappenheimer Bodies Not Reportable 07/27/21 04:48 Sickle Cells Not Reportable 07/27/21 04:48 Target Cells Not Reportable 07/27/21 04:48 Tear Drop Cells Not Reportable 07/27/21 04:48 Ovalocytes Not Reportable 07/27/21 04:48 Helmet Cells Not Reportable 07/27/21 04:48 [place] Bodies Not Reportable 07/27/21 04:48 Ramah Rings Not Reportable 07/27/21 04:48 Marshall Cells Not Reportable 07/27/21 04:48 Bite Cells Not Reportable 07/27/21 04:48 Crenated Cell Not Reportable 07/27/21 04:48 Elliptocytes Not Reportable 07/27/21 04:48 Acanthocytes (Spur) Not Reportable 07/27/21 04:48 Rouleaux Not Reportable 07/27/21 04:48 Hemoglobin C Crystals Not Reportable 07/27/21 04:48 Schistocytes Not Reportable 07/27/21 04:48 Malaria parasites Not Reportable 07/27/21 04:48 Jarvis Bodies Not Reportable 07/27/21 04:48 Hem Pathologist Commnt No 07/27/21 04:48 PT 15.4 Sec. (12.2-14.9) H 08/03/21 05:33 INR 1.17 (0.87-1.13) H 08/03/21 05:33 APTT 31.9 Sec. (24.2-36.6) 07/18/21 16:00 D-Dimer 1383.44 ng/mlDDU (0-234) H 08/03/21 05:33 ABG pH 7.477 (7.320-7.450) H 08/01/21 04:00 POC ABG pCO2 41.3 mmHg (32.0-48.0) 08/01/21 04:00 ABG pCO2 35.2 mm Hg 07/19/21 Unknown POC ABG pO2 89.8 mmHg (83-108) 08/01/21 04:00 ABG pO2 64.2 mm Hg (80.0-90.0) L 07/19/21 Unknown POC ABG HCO3 29.9 08/01/21 04:00 ABG HCO3 20.1 mmol/L (20.0-26.0) 07/19/21 Unknown ABG O2 Saturation 97.0 (0-100) 08/01/21 04:00 ABG O2 Content 14.3 (0.0-44) 07/19/21 Unknown POC ABG Base Excess 5.8 08/01/21 04:00 ABG Base Excess -4.5 mmol/L (-2.0-3.0) L 07/19/21 Unknown ABG Hemoglobin 11.4 (12.0-17.5) L 08/01/21 04:00 ABG Oxyhemoglobin 96.4 (94-98) 08/01/21 04:00 ABG Carboxyhemoglobin 0.8 % (0.0-5.0) 07/19/21 Unknown ABG Methemoglobin 0.3 (0.0-1.5) 08/01/21 04:00 ABG Sodium 134.4 mmol/L (136.0-145.0) L 08/01/21 04:00 ABG Potassium 4.3 mmol/L (3.40-4.50) 08/01/21 04:00 ABG Chloride 99.0 mmol/L (98-107) 08/01/21 04:00 ABG Glucose 173 mg/dL (65-95) H 08/01/21 04:00 Oxyhemoglobin 91.9 % (95.0-99.0) L 07/19/21 Unknown Carboxyhemoglobin 0.3 (0.5-1.5) L 08/01/21 04:00 FiO2 100 % 07/19/21 Unknown FiO2 % 40.0 08/01/21 04:00 Sodium 136 mmol/L (137-145) L 08/03/21 05:33 Potassium 4.3 mmol/L (3.6-5.0) 08/03/21 05:33 Chloride 99.4 mmol/L (98-107) 08/03/21 05:33 Carbon Dioxide 29 mmol/L (22-30) 08/03/21 05:33 Anion Gap 12 mmol/L 08/03/21 05:33 BUN 28 mg/dL (7-17) H 08/03/21 05:33 Creatinine 0.6 mg/dL (0.6-1.2) 08/03/21 05:33 Estimated GFR > 60 ml/min 08/03/21 05:33 BUN/Creatinine Ratio 47 % 08/03/21 05:33 Glucose 114 mg/dL (65-100) H 08/03/21 05:33 POC Glucose 125 mg/dL (70-105) H 08/03/21 12:24 Lactic Acid 1.40 mmol/L (0.7-2.0) 07/18/21 16:00 Calcium 9.4 mg/dL (8.4-10.2) 08/03/21 05:33 Phosphorus 3.30 mg/dL (2.5-4.5) 08/01/21 06:00 Magnesium 2.10 mg/dL (1.7-2.3) 08/01/21 06:00 Ferritin 263.2 ng/mL (10.0-200.0) H 08/03/21 05:33 Total Bilirubin 0.20 mg/dL (0.1-1.2) 07/22/21 04:39 AST 38 units/L (5-40) 07/22/21 04:39 ALT 29 units/L (7-56) 07/22/21 04:39 Alkaline Phosphatase 83 units/L (35-129) 07/22/21 04:39 Ammonia 37.0 umol/L (25-60) 07/18/21 16:00 Lactate Dehydrogenase 427 units/L (91-180) H 08/03/21 05:33 Total Creatine Kinase 157 units/L (30-135) H 07/18/21 16:00 Troponin T 0.106 ng/mL (0.00-0.029) H* 07/18/21 16:00 C-Reactive Protein 0.20 mg/dL (0.00-1.30) 08/03/21 05:33 Total Protein 6.4 g/dL (6.3-8.2) 07/22/21 04:39 Albumin 2.9 g/dL (3.9-5) L 07/22/21 04:39 Albumin/Globulin Ratio 0.8 % 07/22/21 04:39 Triglycerides 156 mg/dL (2-149) H 07/18/21 16:00 Cholesterol 127 mg/dL (50-199) 07/18/21 16:00 LDL Cholesterol Direct 64 mg/dL (50-130) 07/18/21 16:00 HDL Cholesterol 33 mg/dL (40-59) L 07/18/21 16:00 Cholesterol/HDL Ratio 3.84 % 07/18/21 16:00 Procalcitonin < 0.05 ng/mL (<0.15) 07/26/21 13:53 TSH 0.469 mlU/mL (0.270-4.200) 07/21/21 04:52 Free T4 1.05 ng/dL (0.76-1.46) 07/21/21 04:52 Arterial Blood Glucose 173 mg/dL (65-95) H 08/01/21 04:00 Arterial Blood Ionized Calcium 4.7 mg/dL (4.6-5.3) 08/01/21 04:00 Urine Color Yellow (Yellow) 07/18/21 Unknown Urine Turbidity Slightly-cloudy (Clear) 07/18/21 Unknown Urine pH 5.0 (5.0-7.0) 07/18/21 Unknown Ur Specific [place] 1.020 (1.003-1.030) 07/18/21 Unknown Urine Protein >500 mg/dL (Negative) 07/18/21 Unknown Urine Glucose (UA) Neg mg/dL (Negative) 07/18/21 Unknown Urine Ketones 20 mg/dL (Negative) 07/18/21 Unknown Urine Blood Neg (Negative) 07/18/21 Unknown Urine Nitrite Neg (Negative) 07/18/21 Unknown Urine Bilirubin Neg (Negative) 07/18/21 Unknown Urine Urobilinogen < 2.0 mg/dL (<2.0) 07/18/21 Unknown Ur Leukocyte Esterase Neg (Negative) 07/18/21 Unknown Urine WBC (Auto) 9.0 /HPF (0.0-6.0) H 07/18/21 Unknown Urine RBC (Auto) 2.0 /HPF (0.0-6.0) 07/18/21 Unknown U Epithel Cells (Auto) 1.0 /HPF (0-13.0) 07/18/21 Unknown Urine Bacteria (Auto) 1+ /HPF (Negative) 07/18/21 Unknown Amorphous Crystals Few 07/18/21 Unknown Urine Mucus Few /HPF 07/18/21 Unknown Vancomycin Trough 22.9 ug/mL (5.0-20.0) H 07/25/21 04:28 Salicylates < 0.3 mg/dL (2.8-20.0) L 07/18/21 16:00 Urine Opiates Screen Negative 07/18/21 Unknown Urine Methadone Screen Negative 07/18/21 Unknown Acetaminophen 5.7 ug/mL (10.0-30.0) L 07/18/21 16:00 Ur Barbiturates Screen Negative 07/18/21 Unknown Ur Phencyclidine Scrn Negative 07/18/21 Unknown Ur Amphetamines Screen Negative 07/18/21 Unknown U Benzodiazepines Scrn Negative 07/18/21 Unknown Urine Cocaine Screen Negative 07/18/21 Unknown U Marijuana (THC) Screen Negative 07/18/21 Unknown Drugs of Abuse Note Disclamer 07/18/21 Unknown Plasma/Serum Alcohol < 0.01 % (0-0.07) 07/18/21 16:00 Coronavirus (PCR) Positive (Negative) A 07/19/21 Unknown Blood Type O POSITIVE 07/18/21 16:05 Antibody Screen Negative 07/18/21 16:05 Guzman/IV: Voiding Method Indwelling Catheter Active Medications - Current Medications Current Medications: Generic Name Dose Route Start Last Admin Trade Name Freq PRN Reason Stop Dose Admin Acetaminophen 650 mg 07/18/21 22:49 Acetaminophen 325 Mg Tab PO Q4H PRN Pain MILD(1-3)/Fever >100.5/URENA Lipase/Protease/Amylase 1 each 07/18/21 22:56 Lipase 10,500/Protease 25,000/Amylase 43,750 (Units) Dr Alvarado FEEDTUBE PRN PRN For Clogged Feeding Tube Bisacodyl 10 mg 07/27/21 09:02 07/27/21 11:16 Bisacodyl 10 Mg Rect Supp ME 10 mg QDAY PRN Administration Constip unreliev by MOM/or NPO Enoxaparin Sodium 100 mg 07/19/21 10:00 08/03/21 10:28 Enoxaparin 100 Mg/1 Ml Inj SUB-Q 100 mg Q12HR [facility] Administration Protocol Famotidine 20 mg 07/18/21 22:00 08/03/21 10:28 Famotidine 20 Mg/2 Ml Inj IV 20 mg BID NICOLE Administration Haloperidol Lactate 5 mg 08/01/21 10:29 Haloperidol Lactate 5 Mg/1 Ml Inj IV Q6H PRN Agitation Hydralazine HCl 20 mg 08/01/21 11:00 08/03/21 13:21 Hydralazine 20 Mg/1 Ml Inj IV Not Given Q4HR [facility] Hydrophilic Ointment 1 applic 07/18/21 14:41 Lip Therapy Vaseline TP Q2HR PRN Dry Lips Insulin Glargine 5 units 07/27/21 22:00 08/02/21 21:16 Insulin Glargine 100 Units/Ml SUB-Q Not Given QHS [facility] Insulin Human Lispro 0 unit 07/27/21 12:00 08/03/21 12:59 Insulin Lispro 100 Unit/Ml SUB-Q Not Given Q6HR [facility] Protocol Methylprednisolone Sodium Succinate 40 mg 07/27/21 14:00 08/03/21 05:45 Methylprednisolone Sod Succinate 40 Mg/1 Ml Inj IV 40 mg Q8HR NICOLE Administration Multi-Ingred Cream/Lotion/Oil/Oint 1 applic 07/18/21 14:41 Mineral Oil/Petrolatum, White Ophth Oint 3.5 Gm OU Q4HR PRN Dry Eye(s) Ondansetron HCl 4 mg 07/18/21 22:49 Ondansetron 4 Mg/2 Ml Inj IV Q8H PRN Nausea And Vomiting Oxycodone/Acetaminophen 1 tab 08/01/21 15:00 Oxycodone /Acetaminophen 5-325mg Tab PO Q6H PRN Pain, Moderate (4-6) Nutrition/Malnutrition Assess - Dietary Evaluation Nutrition/Malnutrition Findings: Nutrition Notes Start: 07/19/21 09:15 Freq: Status: Active Protocol: Document 08/03/21 11:44 MK (Rec: 08/03/21 11:45 MK [id number]) Nutrition Notes Initial or Follow up Brief Note Current Diagnosis Acute Kidney Injury,Diabetes, Hypertension,Respiratory Failure Other Pertinent Diagnosis COVID Current Diet No diet Subjective/Other Information Pt was extubated on 08/01. Pt is waiting for ASSOCIATE PROJECT MANAGER eval for diet advancement. Nutrition Intervention Follow-Up By: 08/05/21 Additional Comments F/u: diet advancement and intakes
[2021-08-03] MEDS: INSULIN GLARGINE 100 UNITS/ML SUB-Q SCH (23:40)
[2021-08-04] MEDS: INSULIN LISPRO 100 UNIT/ML SUB-Q SCH ×4 (01:48→18:35)
[2021-08-04] MEDS: hydrALAZINE 20 MG/1 ML INJ IV SCH ×5 (02:02→22:39)
[2021-08-04] MEDS: methylPREDNISolone Sod Succinate 40 MG/1 ML INJ IV SCH ×3 (06:10→22:27)
--- NOTE | 2021-08-04 07:10 | Progress Note ---
Assessment and Plan Assessment and plan: Patient is a 55-year-old female history of obesity diabetes, anxiety, hypertension who was admitted with severe COVID-19 pneumonia also found to have multiple subsegmental PEs, ION and sepsis. #Acute metabolic encephalopathy -Improved, patient now talking appropriately -Continue delirium protocol -ST consulted, patient refusing to cooperate #Severe COVID-19 pneumonia -Extubated 08/01 -Status post remdesivir & Acemtra -[facility] we[facility] (currently 20mg q8hr); will convert to prednisone when patient tolerates PO -will continue supplemental O2, will wean as tolerated #Tricuspid valve thrombus -Continue therapeutic Lovenox -Cardiology following -Repeat echo in 3 months #Multiple subsegmental pulmonary embolism, LLE DVT -Lovenox, SCDs to lower extremity -Continue to monitor SPO2 #History of type 2 diabetes -POC glucose within goal (140-180) -Continue as needed SSI Total Time Spent with Patient (Minutes): 30 minutes - Patient Problems (1) Acute encephalopathy Current Visit: Yes Status: Acute (2) Multiple pulmonary emboli Current Visit: Yes Status: Acute (3) Right ventricular thrombus Current Visit: Yes Status: Acute Hospitalist Physical - Physical exam Narrative exam: GENERAL: Well-developed well-nourished. Lying in bed. CHEST/LUNGS: CTAB on 2L NC HEART/CARDIOVASCULAR: RRR. No murmur, rubs or gallops appreciated. ABDOMEN: +BS. NT/ND. NEURO: No focal motor deficit. Follows all commands. MUSCULOSKELETAL: No joint effusion EXTREMITIES: No cyanosis, cubbing or edema. PSYCH: Cooperative. - Constitutional Vitals: Temp Pulse Resp BP Pulse Ox 98.2 F 83 20 125/64 90 08/04/21 05:25 08/04/21 06:07 08/04/21 05:25 08/04/21 06:07 08/03/21 23:00 General appearance: Present: no acute distress, other HEART Score - HEART Score Troponin: Troponin T 0.106 ng/mL (0.00-0.029) H* 07/18/21 16:00 Results - Labs CBC & Chem 7: 08/03/21 05:33 08/04/21 07:11 Labs: Laboratory Last Values WBC 10.1 K/mm3 (4.5-11.0) 08/03/21 05:33 RBC 3.66 M/mm3 (3.65-5.03) 08/03/21 05:33 Hgb 10.7 gm/dl (10.1-14.3) 08/03/21 05:33 Hct 32.2 % (30.3-42.9) 08/03/21 05:33 MCV 88 fl (79-97) 08/03/21 05:33 MCH 29 pg (28-32) 08/03/21 05:33 MCHC 33 % (30-34) 08/03/21 05:33 RDW 15.4 % (13.2-15.2) H 08/03/21 05:33 Plt Count 286 K/mm3 (140-440) 08/03/21 05:33 Lymph % (Auto) 10.7 % (13.4-35.0) L 07/19/21 04:59 [place] % (Auto) 4.8 % (0.0-7.3) 07/19/21 04:59 Eos % (Auto) 0.1 % (0.0-4.3) 07/19/21 04:59 Baso % (Auto) 0.1 % (0.0-1.8) 07/19/21 04:59 Lymph # (Auto) 1.1 K/mm3 (1.2-5.4) L 07/19/21 04:59 [place] # (Auto) 0.5 K/mm3 (0.0-0.8) 07/19/21 04:59 Eos # (Auto) 0.0 K/mm3 (0.0-0.4) 07/19/21 04:59 Baso # (Auto) 0.0 K/mm3 (0.0-0.1) 07/19/21 04:59 Add Manual Diff Complete 07/27/21 04:48 Total Counted 100 07/27/21 04:48 Seg Neutrophils % Proj Engineer 07/27/21 04:48 Seg Neuts % (Manual) 92.0 % (40.0-70.0) H 07/27/21 04:48 Band Neutrophils % 1.0 % 07/26/21 06:07 Lymphocytes % (Manual) 3.0 % (13.4-35.0) L 07/27/21 04:48 Monocytes % (Manual) 5.0 % (0.0-7.3) 07/27/21 04:48 Metamyelocytes % 1.0 % 07/26/21 06:07 Myelocytes % 1.0 % 07/25/21 04:28 Nucleated RBC % 1.0 % (0.0-0.9) H 07/27/21 04:48 Seg Neutrophils # 8.7 K/mm3 (1.8-7.7) H 07/19/21 04:59 Seg Neutrophils # Man 15.2 K/mm3 (1.8-7.7) H 07/27/21 04:48 Band Neutrophils # 0.0 K/mm3 07/27/21 04:48 Lymphocytes # (Manual) 0.5 K/mm3 (1.2-5.4) L 07/27/21 04:48 Abs React Lymphs (Man) 0.0 K/mm3 07/27/21 04:48 Monocytes # (Manual) 0.8 K/mm3 (0.0-0.8) 07/27/21 04:48 Eosinophils # (Manual) 0.0 K/mm3 (0.0-0.4) 07/27/21 04:48 Basophils # (Manual) 0.0 K/mm3 (0.0-0.1) 07/27/21 04:48 Metamyelocytes # 0.0 K/mm3 07/27/21 04:48 Myelocytes # 0.0 K/mm3 07/27/21 04:48 Promyelocytes # 0.0 K/mm3 07/27/21 04:48 Blast Cells # 0.0 K/mm3 07/27/21 04:48 WBC Morphology Not Reportable 07/27/21 04:48 Hypersegmented Neuts Not Reportable 07/27/21 04:48 Hyposegmented Neuts Not Reportable 07/27/21 04:48 Hypogranular Neuts Not Reportable 07/27/21 04:48 Smudge Cells Not Reportable 07/27/21 04:48 Toxic Granulation Not Reportable 07/27/21 04:48 Toxic Vacuolation Not Reportable 07/27/21 04:48 Dohle Bodies Not Reportable 07/27/21 04:48 Pelger-Huet Anomaly Not Reportable 07/27/21 04:48 Alonzo Rods Not Reportable 07/27/21 04:48 Platelet Estimate Consistent w auto 07/27/21 04:48 Clumped Platelets Not Reportable 07/27/21 04:48 Plt Clumps, EDTA Not Reportable 07/27/21 04:48 Large Platelets Not Reportable 07/27/21 04:48 Giant Platelets Not Reportable 07/27/21 04:48 Platelet Satelliting Not Reportable 07/27/21 04:48 Plt Morphology Comment Not Reportable 07/27/21 04:48 RBC Morphology Normal 07/27/21 04:48 Dimorphic RBCs Not Reportable 07/27/21 04:48 Polychromasia Not Reportable 07/27/21 04:48 Hypochromasia Not Reportable 07/27/21 04:48 Poikilocytosis Not Reportable 07/27/21 04:48 Anisocytosis Not Reportable 07/27/21 04:48 Microcytosis Not Reportable 07/27/21 04:48 Macrocytosis Not Reportable 07/27/21 04:48 Spherocytes Not Reportable 07/27/21 04:48 Pappenheimer Bodies Not Reportable 07/27/21 04:48 Sickle Cells Not Reportable 07/27/21 04:48 Target Cells Not Reportable 07/27/21 04:48 Tear Drop Cells Not Reportable 07/27/21 04:48 Ovalocytes Not Reportable 07/27/21 04:48 Helmet Cells Not Reportable 07/27/21 04:48 [place] Bodies Not Reportable 07/27/21 04:48 [place] Rings Not Reportable 07/27/21 04:48 [place] Cells Not Reportable 07/27/21 04:48 Bite Cells Not Reportable 07/27/21 04:48 Crenated Cell Not Reportable 07/27/21 04:48 Elliptocytes Not Reportable 07/27/21 04:48 Acanthocytes (Spur) Not Reportable 07/27/21 04:48 Rouleaux Not Reportable 07/27/21 04:48 Hemoglobin C Crystals Not Reportable 07/27/21 04:48 Schistocytes Not Reportable 07/27/21 04:48 Malaria parasites Not Reportable 07/27/21 04:48 [place] Bodies Not Reportable 07/27/21 04:48 Hem Pathologist Commnt No 07/27/21 04:48 PT 15.4 Sec. (12.2-14.9) H 08/03/21 05:33 INR 1.17 (0.87-1.13) H 08/03/21 05:33 APTT 31.9 Sec. (24.2-36.6) 07/18/21 16:00 D-Dimer 1383.44 ng/mlDDU (0-234) H 08/03/21 05:33 ABG pH 7.477 (7.320-7.450) H 08/01/21 04:00 POC ABG pCO2 41.3 mmHg (32.0-48.0) 08/01/21 04:00 ABG pCO2 35.2 mm Hg 07/19/21 Unknown POC ABG pO2 89.8 mmHg (83-108) 08/01/21 04:00 ABG pO2 64.2 mm Hg (80.0-90.0) L 07/19/21 Unknown POC ABG HCO3 29.9 08/01/21 04:00 ABG HCO3 20.1 mmol/L (20.0-26.0) 07/19/21 Unknown ABG O2 Saturation 97.0 (0-100) 08/01/21 04:00 ABG O2 Content 14.3 (0.0-44) 07/19/21 Unknown POC ABG Base Excess 5.8 08/01/21 04:00 ABG Base Excess -4.5 mmol/L (-2.0-3.0) L 07/19/21 Unknown ABG Hemoglobin 11.4 (12.0-17.5) L 08/01/21 04:00 ABG Oxyhemoglobin 96.4 (94-98) 08/01/21 04:00 ABG Carboxyhemoglobin 0.8 % (0.0-5.0) 07/19/21 Unknown ABG Methemoglobin 0.3 (0.0-1.5) 08/01/21 04:00 ABG Sodium 134.4 mmol/L (136.0-145.0) L 08/01/21 04:00 ABG Potassium 4.3 mmol/L (3.40-4.50) 08/01/21 04:00 ABG Chloride 99.0 mmol/L (98-107) 08/01/21 04:00 ABG Glucose 173 mg/dL (65-95) H 08/01/21 04:00 Oxyhemoglobin 91.9 % (95.0-99.0) L 07/19/21 Unknown Carboxyhemoglobin 0.3 (0.5-1.5) L 08/01/21 04:00 FiO2 100 % 07/19/21 Unknown FiO2 % 40.0 08/01/21 04:00 Sodium 136 mmol/L (137-145) L 08/03/21 05:33 Potassium 4.3 mmol/L (3.6-5.0) 08/03/21 05:33 Chloride 99.4 mmol/L (98-107) 08/03/21 05:33 Carbon Dioxide 29 mmol/L (22-30) 08/03/21 05:33 Anion Gap 12 mmol/L 08/03/21 05:33 BUN 28 mg/dL (7-17) H 08/03/21 05:33 Creatinine 0.6 mg/dL (0.6-1.2) 08/03/21 05:33 Estimated GFR > 60 ml/min 08/03/21 05:33 BUN/Creatinine Ratio 47 % 08/03/21 05:33 Glucose 114 mg/dL (65-100) H 08/03/21 05:33 POC Glucose 114 mg/dL (70-105) H 08/03/21 23:22 Lactic Acid 1.40 mmol/L (0.7-2.0) 07/18/21 16:00 Calcium 9.4 mg/dL (8.4-10.2) 08/03/21 05:33 Phosphorus 3.30 mg/dL (2.5-4.5) 08/01/21 06:00 Magnesium 2.10 mg/dL (1.7-2.3) 08/01/21 06:00 Ferritin 263.2 ng/mL (10.0-200.0) H 08/03/21 05:33 Total Bilirubin 0.20 mg/dL (0.1-1.2) 07/22/21 04:39 AST 38 units/L (5-40) 07/22/21 04:39 ALT 29 units/L (7-56) 07/22/21 04:39 Alkaline Phosphatase 83 units/L (35-129) 07/22/21 04:39 Ammonia 37.0 umol/L (25-60) 07/18/21 16:00 Lactate Dehydrogenase 427 units/L (91-180) H 08/03/21 05:33 Total Creatine Kinase 157 units/L (30-135) H 07/18/21 16:00 Troponin T 0.106 ng/mL (0.00-0.029) H* 07/18/21 16:00 C-Reactive Protein 0.20 mg/dL (0.00-1.30) 08/03/21 05:33 Total Protein 6.4 g/dL (6.3-8.2) 07/22/21 04:39 Albumin 2.9 g/dL (3.9-5) L 07/22/21 04:39 Albumin/Globulin Ratio 0.8 % 07/22/21 04:39 Triglycerides 156 mg/dL (2-149) H 07/18/21 16:00 Cholesterol 127 mg/dL (50-199) 07/18/21 16:00 LDL Cholesterol Direct 64 mg/dL (50-130) 07/18/21 16:00 HDL Cholesterol 33 mg/dL (40-59) L 07/18/21 16:00 Cholesterol/HDL Ratio 3.84 % 07/18/21 16:00 Procalcitonin < 0.05 ng/mL (<0.15) 07/26/21 13:53 TSH 0.469 mlU/mL (0.270-4.200) 07/21/21 04:52 Free T4 1.05 ng/dL (0.76-1.46) 07/21/21 04:52 Arterial Blood Glucose 173 mg/dL (65-95) H 08/01/21 04:00 Arterial Blood Ionized Calcium 4.7 mg/dL (4.6-5.3) 08/01/21 04:00 Urine Color Yellow (Yellow) 07/18/21 Unknown Urine Turbidity Slightly-cloudy (Clear) 07/18/21 Unknown Urine pH 5.0 (5.0-7.0) 07/18/21 Unknown Ur Specific [place] 1.020 (1.003-1.030) 07/18/21 Unknown Urine Protein >500 mg/dL (Negative) 07/18/21 Unknown Urine Glucose (UA) Neg mg/dL (Negative) 07/18/21 Unknown Urine Ketones 20 mg/dL (Negative) 07/18/21 Unknown Urine Blood Neg (Negative) 07/18/21 Unknown Urine Nitrite Neg (Negative) 07/18/21 Unknown Urine Bilirubin Neg (Negative) 07/18/21 Unknown Urine Urobilinogen < 2.0 mg/dL (<2.0) 07/18/21 Unknown Ur Leukocyte Esterase Neg (Negative) 07/18/21 Unknown Urine WBC (Auto) 9.0 /HPF (0.0-6.0) H 07/18/21 Unknown Urine RBC (Auto) 2.0 /HPF (0.0-6.0) 07/18/21 Unknown U Epithel Cells (Auto) 1.0 /HPF (0-13.0) 07/18/21 Unknown Urine Bacteria (Auto) 1+ /HPF (Negative) 07/18/21 Unknown Amorphous Crystals Few 07/18/21 Unknown Urine Mucus Few /HPF 07/18/21 Unknown Vancomycin Trough 22.9 ug/mL (5.0-20.0) H 07/25/21 04:28 Salicylates < 0.3 mg/dL (2.8-20.0) L 07/18/21 16:00 Urine Opiates Screen Negative 07/18/21 Unknown Urine Methadone Screen Negative 07/18/21 Unknown Acetaminophen 5.7 ug/mL (10.0-30.0) L 07/18/21 16:00 Ur Barbiturates Screen Negative 07/18/21 Unknown Ur Phencyclidine Scrn Negative 07/18/21 Unknown Ur Amphetamines Screen Negative 07/18/21 Unknown U Benzodiazepines Scrn Negative 07/18/21 Unknown Urine Cocaine Screen Negative 07/18/21 Unknown U Marijuana (THC) Screen Negative 07/18/21 Unknown Drugs of Abuse Note Disclamer 07/18/21 Unknown Plasma/Serum Alcohol < 0.01 % (0-0.07) 07/18/21 16:00 Coronavirus (PCR) Positive (Negative) A 07/19/21 Unknown Blood Type O POSITIVE 07/18/21 16:05 Antibody Screen Negative 07/18/21 16:05 Guzman/IV: Voiding Method Indwelling Catheter Active Medications - Current Medications Current Medications: Generic Name Dose Route Start Last Admin Trade Name Freq PRN Reason Stop Dose Admin Acetaminophen 650 mg 07/18/21 22:49 Acetaminophen 325 Mg Tab PO Q4H PRN Pain MILD(1-3)/Fever >100.5/URENA Lipase/Protease/Amylase 1 each 07/18/21 22:56 Lipase 10,500/Protease 25,000/Amylase 43,750 (Units) Dr Christiano ARTEAGATUBE PRN PRN For Clogged Feeding Tube Bisacodyl 10 mg 07/27/21 09:02 07/27/21 11:16 Bisacodyl 10 Mg Rect Supp MI 10 mg QDAY PRN Administration Constip unreliev by MOM/or NPO Enoxaparin Sodium 100 mg 07/19/21 10:00 08/03/21 22:15 Enoxaparin 100 Mg/1 Ml Inj SUB-Q 100 mg Q12HR [facility] Administration Protocol Famotidine 20 mg 07/18/21 22:00 08/03/21 22:16 Famotidine 20 Mg/2 Ml Inj IV 20 mg BID [facility] Administration Haloperidol Lactate 5 mg 08/01/21 10:29 Haloperidol Lactate 5 Mg/1 Ml Inj IV Q6H PRN Agitation Hydralazine HCl 20 mg 08/01/21 11:00 08/04/21 06:07 Hydralazine 20 Mg/1 Ml Inj IV Not Given Q4HR [facility] Hydrophilic Ointment 1 applic 07/18/21 14:41 Lip Therapy Vaseline TP Q2HR PRN Dry Lips Insulin Glargine 5 units 07/27/21 22:00 08/03/21 23:40 Insulin Glargine 100 Units/Ml SUB-Q Not Given QHS [facility] Insulin Human Lispro 0 unit 07/27/21 12:00 08/04/21 06:10 Insulin Lispro 100 Unit/Ml SUB-Q Not Given Q6HR [facility] Protocol Methylprednisolone Sodium Succinate 40 mg 07/27/21 14:00 08/04/21 06:10 Methylprednisolone Sod Succinate 40 Mg/1 Ml Inj IV 40 mg Q8HR [facility] Administration Multi-Ingred Cream/Lotion/Oil/Oint 1 applic 07/18/21 14:41 Mineral Oil/Petrolatum, White Ophth Oint 3.5 Gm OU Q4HR PRN Dry Eye(s) Ondansetron HCl 4 mg 07/18/21 22:49 Ondansetron 4 Mg/2 Ml Inj IV Q8H PRN Nausea And Vomiting Oxycodone/Acetaminophen 1 tab 08/01/21 15:00 Oxycodone /Acetaminophen 5-325mg Tab PO Q6H PRN Pain, Moderate (4-6) Nutrition/Malnutrition Assess - Dietary Evaluation Nutrition/Malnutrition Findings: Nutrition Notes Start: 07/19/21 09:15 Freq: Status: Active Protocol: Document 08/03/21 11:44 MK (Rec: 08/03/21 11:45 MK [id number]) Nutrition Notes Initial or Follow up Brief Note Current Diagnosis Acute Kidney Injury,Diabetes, Hypertension,Respiratory Failure Other Pertinent Diagnosis COVID Current Diet No diet Subjective/Other Information Pt was extubated on 08/01. Pt is waiting for [facility] eval for diet advancement. Nutrition Intervention Follow-Up By: 08/05/21 Additional Comments F/u: diet advancement and intakes
[2021-08-04 08:25] LABS: Alanine Aminotransferase 79 units/L (7-56); Albumin 3.7 g/dL (3.9-5); Blood Urea Nitrogen 29 mg/dL (7-17); Calcium 9.5 mg/dL (8.4-10.2); Hemolysis Index 68
[2021-08-04 08:29] LABS: BUN/Creatinine Ratio 48
[2021-08-04] MEDS: ENOXAPARIN 100 MG/1 ML INJ SUB-Q SCH ×2 (09:27→22:26)
[2021-08-04] MEDS: FAMOTIDINE 20 MG/2 ML INJ IV SCH ×2 (09:28→22:27)
--- NOTE | 2021-08-04 09:40 | Progress Note ---
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 Otherwise, conservative cardiac management. Subjective Date of service: 08/04/21 Principal diagnosis: COVID pneumonia Interval history: No distress noted. Currently, she is sinus rhythm, rate 64 on telemetry. Objective Vital Signs Temp Pulse Pulse Resp BP Pulse Ox 08/04/21 06:07 83 125/64 08/04/21 05:25 98.2 F 20 125/64 08/04/21 02:02 83 159/82 08/03/21 23:38 83 159/82 08/03/21 23:00 88 90 08/03/21 22:00 88 08/03/21 21:27 83 20 159/82 87 08/03/21 17:51 135/68 08/03/21 17:47 99.5 F 110 H 20 132/68 90 08/03/21 15:21 90 08/03/21 11:07 99.5 F 99 H 20 119/69 86 08/03/21 10:30 77 125/67 86 - Physical Examination Narrative exam: Deferred due to isolation protocol. General: No Apparent Distress Cardiac: Positive: Reg Rate and Rhythm - Labs and Meds Cardiac Enzymes 08/04/21 Range/Units 07:11 AST 41 H (5-40) units/L Comprehensive Metabolic Panel 08/04/21 Range/Units 07:11 Sodium 137 (137-145) mmol/L Potassium 4.4 (3.6-5.0) mmol/L Chloride 100.8 (98-107) mmol/L Carbon Dioxide 24 (22-30) mmol/L BUN 29 H (7-17) mg/dL Creatinine 0.6 (0.6-1.2) mg/dL Glucose 105 H (65-100) mg/dL Calcium 9.5 (8.4-10.2) mg/dL AST 41 H (5-40) units/L ALT 79 H (7-56) units/L Alkaline Phosphatase 38 (35-129) units/L Total Protein 6.4 (6.3-8.2) g/dL Albumin 3.7 L (3.9-5) g/dL
--- NOTE | 2021-08-04 13:00 | Progress Note ---
Assessment and Plan 55 y/o obese female with acute respiratory failure, pulmonary embolism, now with renal failure, most likely all secondary to COVID 19 08/04/21: Will drop steroids down to 20q8 which is the same as Pred 60 daily so when patient can eat, ok to switch to this. Continue supplemental Oxygen. PT/OT needed. All others per primary team. 08/03/21: Pulm status is stable to improving. Suggest continuing 2 liters until patient can ambulate or after PT/OT assessment before further weaning. Will start to wean steroids tomorrow. If able to swallow appropriately will switch to Prednisone 60 if not then solumedrol 20 IV q8 08/02/21: Successful extubation with weaning of oxygen. Still confused, most likely ICU delirium. Awaiting speech eval. If able to swallow suggest scheduled BID seroquel (50 BID). Spoke with cards. They only feel we need to treat the PE and DVT as this thrombus is likely from passing through the heart from the v enous system. If able to swallow will do Eliquis if she can afford it. Given stability and improvement, will transfer to COVID floor with telemetry. Needs PT/OT as she may need rehab. Guarded prognosis still but promising. 08/01/21: Will attempt extubation this am. Ordered bipap therapy for PRN. Likely will need bp control but will address once extubated. Called family to update and then will call back once off the vent. 07/31/21: Drop PEEP to 6 later this afternoon and attempt to wean sedation to off. patient will likely not tolerate this. If she does then will try PSV this afternoon. If not, will plan to extubate with bipap available PRN early tomorrow morning. Discussed this with daughters over the phone. Asked nursing to address transducer with art line. I suspect the positioning is incorrect. 07/30/21: Will wean PEEP to 10 this afternoon. If tolerates then around 6-8 PM may drop to 8. Would not go any further than that today. Keep FiO2 at 40%. Once PEEP around 6, can start to lighten sedation and try PSV trials. Prognosis is still guarded. Spoke with family over the phone to update them on progress but also explain to them their family member is still gravely ill. Keep steroids at current dose at leas through the weekend. 07/29/21: Wean FiO2 as tolerated. PaO2 is good. Continue current dose of steroids. Changed Hydralazine. Continue anticoagulation. May be able to start weaning PEEP tomorrow. 07/28/21: Repeat CXR today to check ET tube. Wean steroids when able. Continue to wean FiO2 as tolerated. Do not move PEEP until FiO2 is at 45-50%. Guarded prognosis remains. Will call family now. 07/27/21: Ok with advancing ET tube 2-3 cm. Continue to wean FiO2 as tolerated. Repeat CXR post advancement of ET tube. Dropped steroids too 40q8 07/26/21: Back down to 65% like on 07/22 but PEEP is at 12. Will monitor closely. COntinue current level of sedation and high dose steroids. Prognosis is very very guarded. 07/23/21: Dropped FiO2 to 70. Hopeful to wean back down. Keep peep elevated until FiO2 at 50-55%. Continue High dose steroids. Keep RASS at -4. Na is better. Will stop D5W. Updated Daughter (Linda) and GodDaughter over the phone. If someone could please call them at least one day over the weekend I will call them again on Monday. Prognosis remains very guarded. Explained to them the high mortality rate associated with COVID and mechanical ventilation. 07/22/21: Dropped Fio2 to 65. Continue to wean for sats >88%. keep elevated peep until FiO2 around 50-55% so hopefully in the next 24-36 hours we can get th ere. Continue sedation to keep rass at -4. Continue high dose steroids. Will continue D5W for now until Free water can control sodium. need CBC in the am along with BMP. Prognosis still remains guarded. Continue lovenox 07/21/21: Dropped FiO2 to 80%. Continue to wean for sats >88%. Keep peep elevated until FiO2 around 50-55%. Continue remdesivir and adequate levels of sedation. Continue high dose steroids. No proning for now. Continue therapeutic lovenox. Prognosis remains guarded. 07/20/21: COVID positive. Started Remdesivir. Renal function improved. COntinue high dose steroids at current dosing for now. Suggest repeat ABG later this afternoon if able, may need art line but BP stable for now. No proning. Agree with therapeutic Lovenox. Guarded prognosis. 1. Follow up COVID testing, continue isolation 2. Agree with high dose IV steroids, if positive, will change to solumedrol 125q8 3. If positive then would need remdesivir and Actemra, hopefully still a candidate given bump in renal function 4. Unable to prone patient at moment, but did increase PEEP to 20 and ordered repeat ABG at 1400 5 Very very guarded prognosis CCT 31 minutes. Subjective Date of service: 08/04/21 Principal diagnosis: COVID pneumonia Interval history: STable on 2-3 liters. Not sure that speech has evaluated yet. Patient has not been given any oral meds. Objective Vital Signs - 12hr 08/04/21 08/04/21 08/04/21 02:02 05:25 06:07 Temperature 98.2 F Pulse Rate 83 83 Respiratory 20 Rate Blood Pressure 159/82 125/64 125/64 Constitutional: no acute distress, comatose ENT: other (orally intubated and sedated) Ascultation: Bilateral: diminished breath sounds Cardiovascular: regular rate and rhythm Gastrointestinal: normoactive bowel sounds, soft, non-tender Integumentary: normal Extremities: no cyanosis Neurologic: other (Sedated) CBC and BMP: 08/03/21 05:33 08/04/21 07:11 ABG, PT/INR, D-dimer: ABG ABG pH 7.477 (7.320-7.450) H 08/01/21 04:00 POC ABG pCO2 41.3 mmHg (32.0-48.0) 08/01/21 04:00 ABG pCO2 35.2 mm Hg 07/19/21 Unknown POC ABG pO2 89.8 mmHg (83-108) 08/01/21 04:00 ABG pO2 64.2 mm Hg (80.0-90.0) L 07/19/21 Unknown POC ABG HCO3 29.9 08/01/21 04:00 ABG O2 Saturation 97.0 (0-100) 08/01/21 04:00 PT/INR, D-dimer PT 15.4 Sec. (12.2-14.9) H 08/03/21 05:33 INR 1.17 (0.87-1.13) H 08/03/21 05:33 D-Dimer 1383.44 ng/mlDDU (0-234) H 08/03/21 05:33 Abnormal lab findings: Abnormal Labs 07/18/21 07/18/21 07/18/21 16:00 16:00 16:00 WBC RBC Hgb Hct RDW 15.3 H Lymph % (Auto) 7.9 L Lymph # (Auto) 0.8 L Seg Neutrophils % 86.3 H Seg Neuts % (Manual) Lymphocytes % (Manual) Nucleated RBC % Seg Neutrophils # 9.0 H Seg Neutrophils # Man Lymphocytes # (Manual) Monocytes # (Manual) PT 15.1 H INR D-Dimer > 92274 H ABG pH POC ABG pCO2 POC ABG pO2 ABG pO2 ABG O2 Saturation ABG Base Excess ABG Hemoglobin ABG Oxyhemoglobin ABG Sodium ABG Chloride ABG Glucose Oxyhemoglobin Carboxyhemoglobin Sodium Potassium 3.5 L Chloride Carbon Dioxide 20 L BUN 19 H Creatinine Glucose 140 H POC Glucose Calcium Magnesium Ferritin AST 43 H ALT Lactate Dehydrogenase 705 H Total Creatine Kinase 157 H Troponin T 0.106 H* C-Reactive Protein 33.00 H Total Protein Albumin 3.2 L Triglycerides 156 H HDL Cholesterol 33 L Arterial Blood Glucose Arterial Blood Ionized Calcium Urine WBC (Auto) Vancomycin Trough Salicylates Acetaminophen Coronavirus (PCR) 07/18/21 07/18/21 07/18/21 16:00 16:00 16:00 WBC RBC Hgb Hct RDW Lymph % (Auto) Lymph # (Auto) Seg Neutrophils % Seg Neuts % (Manual) Lymphocytes % (Manual) Nucleated RBC % Seg Neutrophils # Seg Neutrophils # Man Lymphocytes # (Manual) Monocytes # (Manual) PT INR D-Dimer ABG pH POC ABG pCO2 POC ABG pO2 ABG pO2 ABG O2 Saturation ABG Base Excess ABG Hemoglobin ABG Oxyhemoglobin ABG Sodium ABG Chloride ABG Glucose Oxyhemoglobin Carboxyhemoglobin Sodium Potassium Chloride Carbon Dioxide BUN Creatinine Glucose POC Glucose Calcium Magnesium Ferritin 657.0 H AST ALT Lactate Dehydrogenase Total Creatine Kinase Troponin T C-Reactive Protein Total Protein Albumin Triglycerides HDL Cholesterol Arterial Blood Glucose Arterial Blood Ionized Calcium Urine WBC (Auto) Vancomycin Trough Salicylates < 0.3 L Acetaminophen 5.7 L Coronavirus (PCR) 07/18/21 07/18/21 07/19/21 Unknown Unknown 04:33 WBC RBC Hgb Hct RDW Lymph % (Auto) Lymph # (Auto) Seg Neutrophils % Seg Neuts % (Manual) Lymphocytes % (Manual) Nucleated RBC % Seg Neutrophils # Seg Neutrophils # Man Lymphocytes # (Manual) Monocytes # (Manual) PT INR D-Dimer ABG pH 7.275 L POC ABG pCO2 POC ABG pO2 68.7 L 53.1 L ABG pO2 ABG O2 Saturation ABG Base Excess ABG Hemoglobin ABG Oxyhemoglobin 88.3 L 85.3 L ABG Sodium ABG Chloride 109.0 H ABG Glucose 170 H 150 H Oxyhemoglobin Carboxyhemoglobin 0 L 0.3 L Sodium Potassium Chloride Carbon Dioxide BUN Creatinine Glucose POC Glucose Calcium Magnesium Ferritin AST ALT Lactate Dehydrogenase Total Creatine Kinase Troponin T C-Reactive Protein Total Protein Albumin Triglycerides HDL Cholesterol Arterial Blood Glucose 170 H 150 H Arterial Blood Ionized Calcium Urine WBC (Auto) 9.0 H Vancomycin Trough Salicylates Acetaminophen Coronavirus (PCR) 07/19/21 07/19/21 07/19/21 04:59 04:59 Unknown WBC RBC Hgb Hct RDW 16.0 H Lymph % (Auto) 10.7 L Lymph # (Auto) 1.1 L Seg Neutrophils % 84.3 H Seg Neuts % (Manual) Lymphocytes % (Manual) Nucleated RBC % Seg Neutrophils # 8.7 H Seg Neutrophils # Man Lymphocytes # (Manual) Monocytes # (Manual) PT INR D-Dimer ABG pH POC ABG pCO2 POC ABG pO2 ABG pO2 ABG O2 Saturation ABG Base Excess ABG Hemoglobin ABG Oxyhemoglobin ABG Sodium ABG Chloride ABG Glucose Oxyhemoglobin Carboxyhemoglobin Sodium Potassium Chloride 108.8 H Carbon Dioxide 21 L BUN 28 H Creatinine 1.8 H Glucose 145 H POC Glucose Calcium 7.8 L Magnesium Ferritin AST ALT Lactate Dehydrogenase Total Creatine Kinase Troponin T C-Reactive Protein Total Protein 6.2 L Albumin 3.2 L Triglycerides HDL Cholesterol Arterial Blood Glucose Arterial Blood Ionized Calcium Urine WBC (Auto) Vancomycin Trough Salicylates Acetaminophen Coronavirus (PCR) Positive A 07/19/21 07/20/21 07/20/21 Unknown 00:14 04:44 WBC RBC Hgb Hct RDW Lymph % (Auto) Lymph # (Auto) Seg Neutrophils % Seg Neuts % (Manual) Lymphocytes % (Manual) Nucleated RBC % Seg Neutrophils # Seg Neutrophils # Man Lymphocytes # (Manual) Monocytes # (Manual) PT INR D-Dimer ABG pH POC ABG pCO2 POC ABG pO2 ABG pO2 64.2 L ABG O2 Saturation 93.2 L ABG Base Excess -4.5 L ABG Hemoglobin 11.0 L ABG Oxyhemoglobin ABG Sodium ABG Chloride ABG Glucose Oxyhemoglobin 91.9 L Carboxyhemoglobin Sodium Potassium Chloride 112.2 H Carbon Dioxide BUN 38 H Creatinine 1.3 H Glucose 156 H POC Glucose 164 H Calcium 8.1 L Magnesium 3.10 H Ferritin AST ALT Lactate Dehydrogenase Total Creatine Kinase Troponin T C-Reactive Protein Total Protein Albumin 2.8 L Triglycerides HDL Cholesterol Arterial Blood Glucose Arterial Blood Ionized Calcium Urine WBC (Auto) Vancomycin Trough Salicylates Acetaminophen Coronavirus (PCR) 07/20/21 07/20/21 07/20/21 04:44 05:00 05:40 WBC RBC 3.42 L Hgb 9.7 L Hct 29.3 L RDW 16.1 H Lymph % (Auto) Lymph # (Auto) Seg Neutrophils % Seg Neuts % (Manual) Lymphocytes % (Manual) Nucleated RBC % Seg Neutrophils # Seg Neutrophils # Man Lymphocytes # (Manual) Monocytes # (Manual) PT INR D-Dimer ABG pH POC ABG pCO2 POC ABG pO2 139.0 H ABG pO2 ABG O2 Saturation ABG Base Excess ABG Hemoglobin 10.1 L ABG Oxyhemoglobin ABG Sodium ABG Chloride 113.0 H ABG Glucose 155 H Oxyhemoglobin Carboxyhemoglobin 0.3 L Sodium Potassium Chloride Carbon Dioxide BUN Creatinine Glucose POC Glucose 164 H Calcium Magnesium Ferritin AST ALT Lactate Dehydrogenase Total Creatine Kinase Troponin T C-Reactive Protein Total Protein Albumin Triglycerides HDL Cholesterol Arterial Blood Glucose 155 H Arterial Blood Ionized Calcium 4.4 L Urine WBC (Auto) Vancomycin Trough Salicylates Acetaminophen Coronavirus (PCR) 07/20/21 07/20/21 07/21/21 11:40 17:48 03:31 WBC RBC Hgb Hct RDW Lymph % (Auto) Lymph # (Auto) Seg Neutrophils % Seg Neuts % (Manual) Lymphocytes % (Manual) Nucleated RBC % Seg Neutrophils # Seg Neutrophils # Man Lymphocytes # (Manual) Monocytes # (Manual) PT INR D-Dimer ABG pH POC ABG pCO2 POC ABG pO2 ABG pO2 ABG O2 Saturation ABG Base Excess ABG Hemoglobin ABG Oxyhemoglobin ABG Sodium ABG Chloride ABG Glucose Oxyhemoglobin Carboxyhemoglobin Sodium Potassium Chloride Carbon Dioxide BUN Creatinine Glucose POC Glucose 137 H 143 H 157 H Calcium Magnesium Ferritin AST ALT Lactate Dehydrogenase Total Creatine Kinase Troponin T C-Reactive Protein Total Protein Albumin Triglycerides HDL Cholesterol Arterial Blood Glucose Arterial Blood Ionized Calcium Urine WBC (Auto) Vancomycin Trough Salicylates Acetaminophen Coronavirus (PCR) 07/21/21 07/21/21 07/21/21 04:30 04:52 05:21 WBC RBC Hgb Hct RDW Lymph % (Auto) Lymph # (Auto) Seg Neutrophils % Seg Neuts % (Manual) Lymphocytes % (Manual) Nucleated RBC % Seg Neutrophils # Seg Neutrophils # Man Lymphocytes # (Manual) Monocytes # (Manual) PT INR D-Dimer ABG pH POC ABG pCO2 31.7 L POC ABG pO2 77.6 L ABG pO2 ABG O2 Saturation ABG Base Excess ABG Hemoglobin 10.2 L ABG Oxyhemoglobin ABG Sodium 148.3 H ABG Chloride 120.0 H ABG Glucose 168 H Oxyhemoglobin Carboxyhemoglobin 0.2 L Sodium 150 H Potassium Chloride 115.7 H Carbon Dioxide BUN 49 H Creatinine 1.4 H Glucose 185 H POC Glucose 170 H Calcium 8.3 L Magnesium Ferritin AST ALT Lactate Dehydrogenase Total Creatine Kinase Troponin T C-Reactive Protein Total Protein Albumin 3.0 L Triglycerides HDL Cholesterol Arterial Blood Glucose 168 H Arterial Blood Ionized Calcium 4.4 L Urine WBC (Auto) Vancomycin Trough Salicylates Acetaminophen Coronavirus (PCR) 07/21/21 07/21/21 07/21/21 11:17 17:26 23:40 WBC RBC Hgb Hct RDW Lymph % (Auto) Lymph # (Auto) Seg Neutrophils % Seg Neuts % (Manual) Lymphocytes % (Manual) Nucleated RBC % Seg Neutrophils # Seg Neutrophils # Man Lymphocytes # (Manual) Monocytes # (Manual) PT INR D-Dimer ABG pH POC ABG pCO2 POC ABG pO2 ABG pO2 ABG O2 Saturation ABG Base Excess ABG Hemoglobin ABG Oxyhemoglobin ABG Sodium ABG Chloride ABG Glucose Oxyhemoglobin Carboxyhemoglobin Sodium Potassium Chloride Carbon Dioxide BUN Creatinine Glucose POC Glucose 176 H 184 H 161 H Calcium Magnesium Ferritin AST ALT Lactate Dehydrogenase Total Creatine Kinase Troponin T C-Reactive Protein Total Protein Albumin Triglycerides HDL Cholesterol Arterial Blood Glucose Arterial Blood Ionized Calcium Urine WBC (Auto) Vancomycin Trough Salicylates Acetaminophen Coronavirus (PCR) 07/22/21 07/22/21 07/22/21 03:30 04:39 05:29 WBC RBC Hgb Hct RDW Lymph % (Auto) Lymph # (Auto) Seg Neutrophils % Seg Neuts % (Manual) Lymphocytes % (Manual) Nucleated RBC % Seg Neutrophils # Seg Neutrophils # Man Lymphocytes # (Manual) Monocytes # (Manual) PT INR D-Dimer ABG pH POC ABG pCO2 POC ABG pO2 67.4 L ABG pO2 ABG O2 Saturation ABG Base Excess ABG Hemoglobin 10.4 L ABG Oxyhemoglobin 91.8 L ABG Sodium 118.4 L ABG Chloride 114.0 H ABG Glucose 189 H Oxyhemoglobin Carboxyhemoglobin 0.2 L Sodium 146 H Potassium Chloride 112.8 H Carbon Dioxide 21 L BUN 46 H Creatinine Glucose 191 H POC Glucose 191 H Calcium Magnesium Ferritin AST ALT Lactate Dehydrogenase Total Creatine Kinase Troponin T C-Reactive Protein Total Protein Albumin 2.9 L Triglycerides HDL Cholesterol Arterial Blood Glucose 189 H Arterial Blood Ionized Calcium 4.5 L Urine WBC (Auto) Vancomycin Trough Salicylates Acetaminophen Coronavirus (PCR) 07/22/21 07/22/21 07/22/21 12:17 17:54 23:34 WBC RBC Hgb Hct RDW Lymph % (Auto) Lymph # (Auto) Seg Neutrophils % Seg Neuts % (Manual) Lymphocytes % (Manual) Nucleated RBC % Seg Neutrophils # Seg Neutrophils # Man Lymphocytes # (Manual) Monocytes # (Manual) PT INR D-Dimer ABG pH POC ABG pCO2 POC ABG pO2 ABG pO2 ABG O2 Saturation ABG Base Excess ABG Hemoglobin ABG Oxyhemoglobin ABG Sodium ABG Chloride ABG Glucose Oxyhemoglobin Carboxyhemoglobin Sodium Potassium Chloride Carbon Dioxide BUN Creatinine Glucose POC Glucose 206 H 213 H 164 H Calcium Magnesium Ferritin AST ALT Lactate Dehydrogenase Total Creatine Kinase Troponin T C-Reactive Protein Total Protein Albumin Triglycerides HDL Cholesterol Arterial Blood Glucose Arterial Blood Ionized Calcium Urine WBC (Auto) Vancomycin Trough Salicylates Acetaminophen Coronavirus (PCR) 07/23/21 07/23/21 07/23/21 03:30 05:21 09:02 WBC RBC Hgb Hct RDW Lymph % (Auto) Lymph # (Auto) Seg Neutrophils % Seg Neuts % (Manual) Lymphocytes % (Manual) Nucleated RBC % Seg Neutrophils # Seg Neutrophils # Man Lymphocytes # (Manual) Monocytes # (Manual) PT INR D-Dimer ABG pH POC ABG pCO2 POC ABG pO2 70.9 L ABG pO2 ABG O2 Saturation ABG Base Excess ABG Hemoglobin 10.9 L ABG Oxyhemoglobin 92.9 L ABG Sodium 130.2 L ABG Chloride 109.0 H ABG Glucose 177 H Oxyhemoglobin Carboxyhemoglobin 0.1 L Sodium Potassium 5.1 H Chloride Carbon Dioxide BUN 32 H Creatinine Glucose 200 H POC Glucose 191 H Calcium Magnesium Ferritin AST ALT Lactate Dehydrogenase Total Creatine Kinase Troponin T C-Reactive Protein Total Protein Albumin Triglycerides HDL Cholesterol Arterial Blood Glucose 177 H Arterial Blood Ionized Calcium 4.3 L Urine WBC (Auto) Vancomycin Trough Salicylates Acetaminophen Coronavirus (PCR) 07/23/21 07/23/21 07/23/21 09:02 11:34 17:52 WBC 13.8 H RBC Hgb Hct RDW 15.7 H Lymph % (Auto) Lymph # (Auto) Seg Neutrophils % Seg Neuts % (Manual) Lymphocytes % (Manual) Nucleated RBC % Seg Neutrophils # Seg Neutrophils # Man Lymphocytes # (Manual) Monocytes # (Manual) PT INR D-Dimer ABG pH POC ABG pCO2 POC ABG pO2 ABG pO2 ABG O2 Saturation ABG Base Excess ABG Hemoglobin ABG Oxyhemoglobin ABG Sodium ABG Chloride ABG Glucose Oxyhemoglobin Carboxyhemoglobin Sodium Potassium Chloride Carbon Dioxide BUN Creatinine Glucose POC Glucose 208 H 158 H Calcium Magnesium Ferritin AST ALT Lactate Dehydrogenase Total Creatine Kinase Troponin T C-Reactive Protein Total Protein Albumin Triglycerides HDL Cholesterol Arterial Blood Glucose Arterial Blood Ionized Calcium Urine WBC (Auto) Vancomycin Trough Salicylates Acetaminophen Coronavirus (PCR) 07/23/21 07/24/21 07/24/21 23:28 03:06 05:01 WBC RBC Hgb Hct RDW Lymph % (Auto) Lymph # (Auto) Seg Neutrophils % Seg Neuts % (Manual) Lymphocytes % (Manual) Nucleated RBC % Seg Neutrophils # Seg Neutrophils # Man Lymphocytes # (Manual) Monocytes # (Manual) PT INR D-Dimer ABG pH POC ABG pCO2 POC ABG pO2 51.1 L ABG pO2 ABG O2 Saturation ABG Base Excess ABG Hemoglobin ABG Oxyhemoglobin 85.0 L ABG Sodium 135.5 L ABG Chloride ABG Glucose 131 H Oxyhemoglobin Carboxyhemoglobin 0.4 L Sodium Potassium Chloride Carbon Dioxide BUN 29 H Creatinine Glucose 132 H POC Glucose 142 H Calcium 7.8 L Magnesium Ferritin AST ALT Lactate Dehydrogenase Total Creatine Kinase Troponin T C-Reactive Protein Total Protein Albumin Triglycerides HDL Cholesterol Arterial Blood Glucose 131 H Arterial Blood Ionized Calcium 4.5 L Urine WBC (Auto) Vancomycin Trough Salicylates Acetaminophen Coronavirus (PCR) 07/24/21 07/24/21 07/24/21 05:06 11:38 17:26 WBC RBC Hgb Hct RDW Lymph % (Auto) Lymph # (Auto) Seg Neutrophils % Seg Neuts % (Manual) Lymphocytes % (Manual) Nucleated RBC % Seg Neutrophils # Seg Neutrophils # Man Lymphocytes # (Manual) Monocytes # (Manual) PT INR D-Dimer ABG pH POC ABG pCO2 POC ABG pO2 ABG pO2 ABG O2 Saturation ABG Base Excess ABG Hemoglobin ABG Oxyhemoglobin ABG Sodium ABG Chloride ABG Glucose Oxyhemoglobin Carboxyhemoglobin Sodium Potassium Chloride Carbon Dioxide BUN Creatinine Glucose POC Glucose 125 H 215 H 173 H Calcium Magnesium Ferritin AST ALT Lactate Dehydrogenase Total Creatine Kinase Troponin T C-Reactive Protein Total Protein Albumin Triglycerides HDL Cholesterol Arterial Blood Glucose Arterial Blood Ionized Calcium Urine WBC (Auto) Vancomycin Trough Salicylates Acetaminophen Coronavirus (PCR) 07/24/21 07/25/21 07/25/21 23:23 03:33 04:28 WBC RBC Hgb Hct RDW Lymph % (Auto) Lymph # (Auto) Seg Neutrophils % Seg Neuts % (Manual) Lymphocytes % (Manual) Nucleated RBC % Seg Neutrophils # Seg Neutrophils # Man Lymphocytes # (Manual) Monocytes # (Manual) PT INR D-Dimer ABG pH POC ABG pCO2 POC ABG pO2 ABG pO2 ABG O2 Saturation ABG Base Excess ABG Hemoglobin ABG Oxyhemoglobin ABG Sodium 135.6 L ABG Chloride ABG Glucose 174 H Oxyhemoglobin Carboxyhemoglobin 0.1 L Sodium Potassium 5.1 H Chloride 107.7 H Carbon Dioxide BUN 29 H Creatinine Glucose 164 H POC Glucose 133 H Calcium 7.3 L Magnesium Ferritin AST ALT Lactate Dehydrogenase Total Creatine Kinase Troponin T C-Reactive Protein Total Protein Albumin Triglycerides HDL Cholesterol Arterial Blood Glucose 174 H Arterial Blood Ionized Calcium Urine WBC (Auto) Vancomycin Trough Salicylates Acetaminophen Coronavirus (PCR) 07/25/21 07/25/21 07/25/21 04:28 04:28 05:17 WBC 14.9 H RBC Hgb Hct RDW 15.6 H Lymph % (Auto) Lymph # (Auto) Seg Neutrophils % Seg Neuts % (Manual) 92.0 H Lymphocytes % (Manual) 2.0 L Nucleated RBC % Seg Neutrophils # Seg Neutrophils # Man 13.7 H Lymphocytes # (Manual) 0.3 L Monocytes # (Manual) PT INR D-Dimer ABG pH POC ABG pCO2 POC ABG pO2 ABG pO2 ABG O2 Saturation ABG Base Excess ABG Hemoglobin ABG Oxyhemoglobin ABG Sodium ABG Chloride ABG Glucose Oxyhemoglobin Carboxyhemoglobin Sodium Potassium Chloride Carbon Dioxide BUN Creatinine Glucose POC Glucose 173 H Calcium Magnesium Ferritin AST ALT Lactate Dehydrogenase Total Creatine Kinase Troponin T C-Reactive Protein Total Protein Albumin Triglycerides HDL Cholesterol Arterial Blood Glucose Arterial Blood Ionized Calcium Urine WBC (Auto) Vancomycin Trough 22.9 H Salicylates Acetaminophen Coronavirus (PCR) 07/25/21 07/25/21 07/25/21 11:29 17:00 23:46 WBC RBC Hgb Hct RDW Lymph % (Auto) Lymph # (Auto) Seg Neutrophils % Seg Neuts % (Manual) Lymphocytes % (Manual) Nucleated RBC % Seg Neutrophils # Seg Neutrophils # Man Lymphocytes # (Manual) Monocytes # (Manual) PT INR D-Dimer ABG pH POC ABG pCO2 POC ABG pO2 ABG pO2 ABG O2 Saturation ABG Base Excess ABG Hemoglobin ABG Oxyhemoglobin ABG Sodium ABG Chloride ABG Glucose Oxyhemoglobin Carboxyhemoglobin Sodium Potassium Chloride Carbon Dioxide BUN Creatinine Glucose POC Glucose 191 H 184 H 192 H Calcium Magnesium Ferritin AST ALT Lactate Dehydrogenase Total Creatine Kinase Troponin T C-Reactive Protein Total Protein Albumin Triglycerides HDL Cholesterol Arterial Blood Glucose Arterial Blood Ionized Calcium Urine WBC (Auto) Vancomycin Trough Salicylates Acetaminophen Coronavirus (PCR) 07/26/21 07/26/21 07/26/21 03:17 05:33 06:07 WBC 18.0 H RBC Hgb Hct RDW 15.6 H Lymph % (Auto) Lymph # (Auto) Seg Neutrophils % Seg Neuts % (Manual) 87.0 H Lymphocytes % (Manual) 5.0 L Nucleated RBC % Seg Neutrophils # Seg Neutrophils # Man 15.7 H Lymphocytes # (Manual) 0.9 L Monocytes # (Manual) 1.1 H PT INR D-Dimer ABG pH POC ABG pCO2 POC ABG pO2 73.7 L ABG pO2 ABG O2 Saturation ABG Base Excess ABG Hemoglobin 11.8 L ABG Oxyhemoglobin 93.6 L ABG Sodium ABG Chloride ABG Glucose 183 H Oxyhemoglobin Carboxyhemoglobin 0.2 L Sodium Potassium Chloride Carbon Dioxide BUN Creatinine Glucose POC Glucose 172 H Calcium Magnesium Ferritin AST ALT Lactate Dehydrogenase Total Creatine Kinase Troponin T C-Reactive Protein Total Protein Albumin Triglycerides HDL Cholesterol Arterial Blood Glucose 183 H Arterial Blood Ionized Calcium Urine WBC (Auto) Vancomycin Trough Salicylates Acetaminophen Coronavirus (PCR) 07/26/21 07/26/21 07/26/21 06:07 11:46 13:53 WBC RBC Hgb Hct RDW Lymph % (Auto) Lymph # (Auto) Seg Neutrophils % Seg Neuts % (Manual) Lymphocytes % (Manual) Nucleated RBC % Seg Neutrophils # Seg Neutrophils # Man Lymphocytes # (Manual) Monocytes # (Manual) PT INR D-Dimer 6992.45 H ABG pH POC ABG pCO2 POC ABG pO2 ABG pO2 ABG O2 Saturation ABG Base Excess ABG Hemoglobin ABG Oxyhemoglobin ABG Sodium ABG Chloride ABG Glucose Oxyhemoglobin Carboxyhemoglobin Sodium Potassium 5.4 H Chloride Carbon Dioxide BUN 33 H Creatinine Glucose 155 H POC Glucose 142 H Calcium 8.3 L Magnesium Ferritin AST ALT Lactate Dehydrogenase Total Creatine Kinase Troponin T C-Reactive Protein Total Protein Albumin Triglycerides HDL Cholesterol Arterial Blood Glucose Arterial Blood Ionized Calcium Urine WBC (Auto) Vancomycin Trough Salicylates Acetaminophen Coronavirus (PCR) 07/26/21 07/26/21 07/26/21 13:53 14:16 17:29 WBC RBC Hgb Hct RDW Lymph % (Auto) Lymph # (Auto) Seg Neutrophils % Seg Neuts % (Manual) Lymphocytes % (Manual) Nucleated RBC % Seg Neutrophils # Seg Neutrophils # Man Lymphocytes # (Manual) Monocytes # (Manual) PT INR D-Dimer ABG pH POC ABG pCO2 POC ABG pO2 ABG pO2 ABG O2 Saturation ABG Base Excess ABG Hemoglobin ABG Oxyhemoglobin ABG Sodium ABG Chloride ABG Glucose Oxyhemoglobin Carboxyhemoglobin Sodium Potassium Chloride Carbon Dioxide BUN Creatinine Glucose 200 H POC Glucose 185 H Calcium Magnesium Ferritin 348.4 H AST ALT Lactate Dehydrogenase 515 H Total Creatine Kinase Troponin T C-Reactive Protein Total Protein Albumin Triglycerides HDL Cholesterol Arterial Blood Glucose Arterial Blood Ionized Calcium Urine WBC (Auto) Vancomycin Trough Salicylates Acetaminophen Coronavirus (PCR) 07/26/21 07/27/21 07/27/21 23:30 04:00 04:48 WBC 16.5 H RBC Hgb Hct RDW Lymph % (Auto) Lymph # (Auto) Seg Neutrophils % Seg Neuts % (Manual) 92.0 H Lymphocytes % (Manual) 3.0 L Nucleated RBC % 1.0 H Seg Neutrophils # Seg Neutrophils # Man 15.2 H Lymphocytes # (Manual) 0.5 L Monocytes # (Manual) PT INR D-Dimer ABG pH 7.481 H POC ABG pCO2 POC ABG pO2 70.4 L ABG pO2 ABG O2 Saturation ABG Base Excess ABG Hemoglobin 11.6 L ABG Oxyhemoglobin ABG Sodium 131.9 L ABG Chloride ABG Glucose 207 H Oxyhemoglobin Carboxyhemoglobin Sodium Potassium Chloride Carbon Dioxide BUN Creatinine Glucose POC Glucose 186 H Calcium Magnesium Ferritin AST ALT Lactate Dehydrogenase Total Creatine Kinase Troponin T C-Reactive Protein Total Protein Albumin Triglycerides HDL Cholesterol Arterial Blood Glucose 207 H Arterial Blood Ionized Calcium Urine WBC (Auto) Vancomycin Trough Salicylates Acetaminophen Coronavirus (PCR) 07/27/21 07/27/21 07/27/21 04:48 05:04 11:36 WBC RBC Hgb Hct RDW Lymph % (Auto) Lymph # (Auto) Seg Neutrophils % Seg Neuts % (Manual) Lymphocytes % (Manual) Nucleated RBC % Seg Neutrophils # Seg Neutrophils # Man Lymphocytes # (Manual) Monocytes # (Manual) PT INR D-Dimer ABG pH POC ABG pCO2 POC ABG pO2 ABG pO2 ABG O2 Saturation ABG Base Excess ABG Hemoglobin ABG Oxyhemoglobin ABG Sodium ABG Chloride ABG Glucose Oxyhemoglobin Carboxyhemoglobin Sodium Potassium Chloride Carbon Dioxide BUN 35 H Creatinine Glucose 216 H POC Glucose 201 H 142 H Calcium Magnesium Ferritin AST ALT Lactate Dehydrogenase Total Creatine Kinase Troponin T C-Reactive Protein Total Protein Albumin Triglycerides HDL Cholesterol Arterial Blood Glucose Arterial Blood Ionized Calcium Urine WBC (Auto) Vancomycin Trough Salicylates Acetaminophen Coronavirus (PCR) 07/27/21 07/27/21 07/28/21 18:14 22:03 04:00 WBC RBC Hgb Hct RDW Lymph % (Auto) Lymph # (Auto) Seg Neutrophils % Seg Neuts % (Manual) Lymphocytes % (Manual) Nucleated RBC % Seg Neutrophils # Seg Neutrophils # Man Lymphocytes # (Manual) Monocytes # (Manual) PT INR D-Dimer ABG pH 7.491 H POC ABG pCO2 POC ABG pO2 109.2 H ABG pO2 ABG O2 Saturation ABG Base Excess ABG Hemoglobin ABG Oxyhemoglobin ABG Sodium 133.9 L ABG Chloride ABG Glucose 163 H Oxyhemoglobin Carboxyhemoglobin Sodium Potassium Chloride Carbon Dioxide BUN Creatinine Glucose POC Glucose 166 H 149 H Calcium Magnesium Ferritin AST ALT Lactate Dehydrogenase Total Creatine Kinase Troponin T C-Reactive Protein Total Protein Albumin Triglycerides HDL Cholesterol Arterial Blood Glucose 163 H Arterial Blood Ionized Calcium Urine WBC (Auto) Vancomycin Trough Salicylates Acetaminophen Coronavirus (PCR) 07/28/21 07/28/21 07/28/21 04:10 04:10 04:10 WBC RBC Hgb Hct RDW Lymph % (Auto) Lymph # (Auto) Seg Neutrophils % Seg Neuts % (Manual) Lymphocytes % (Manual) Nucleated RBC % Seg Neutrophils # Seg Neutrophils # Man Lymphocytes # (Manual) Monocytes # (Manual) PT INR D-Dimer 5318.85 H ABG pH POC ABG pCO2 POC ABG pO2 ABG pO2 ABG O2 Saturation ABG Base Excess ABG Hemoglobin ABG Oxyhemoglobin ABG Sodium ABG Chloride ABG Glucose Oxyhemoglobin Carboxyhemoglobin Sodium Potassium Chloride Carbon Dioxide 31 H BUN 35 H Creatinine Glucose 187 H POC Glucose Calcium Magnesium Ferritin 324.6 H AST ALT Lactate Dehydrogenase 414 H Total Creatine Kinase Troponin T C-Reactive Protein Total Protein Albumin Triglycerides HDL Cholesterol Arterial Blood Glucose Arterial Blood Ionized Calcium Urine WBC (Auto) Vancomycin Trough Salicylates Acetaminophen Coronavirus (PCR) 07/28/21 07/28/21 07/28/21 04:10 05:25 12:10 WBC 13.7 H RBC Hgb Hct RDW Lymph % (Auto) Lymph # (Auto) Seg Neutrophils % Seg Neuts % (Manual) Lymphocytes % (Manual) Nucleated RBC % Seg Neutrophils # Seg Neutrophils # Man Lymphocytes # (Manual) Monocytes # (Manual) PT INR D-Dimer ABG pH POC ABG pCO2 POC ABG pO2 ABG pO2 ABG O2 Saturation ABG Base Excess ABG Hemoglobin ABG Oxyhemoglobin ABG Sodium ABG Chloride ABG Glucose Oxyhemoglobin Carboxyhemoglobin Sodium Potassium Chloride Carbon Dioxide BUN Creatinine Glucose POC Glucose 152 H 162 H Calcium Magnesium Ferritin AST ALT Lactate Dehydrogenase Total Creatine Kinase Troponin T C-Reactive Protein Total Protein Albumin Triglycerides HDL Cholesterol Arterial Blood Glucose Arterial Blood Ionized Calcium Urine WBC (Auto) Vancomycin Trough Salicylates Acetaminophen Coronavirus (PCR) 07/28/21 07/28/21 07/29/21 17:44 21:58 04:00 WBC RBC Hgb Hct RDW Lymph % (Auto) Lymph # (Auto) Seg Neutrophils % Seg Neuts % (Manual) Lymphocytes % (Manual) Nucleated RBC % Seg Neutrophils # Seg Neutrophils # Man Lymphocytes # (Manual) Monocytes # (Manual) PT INR D-Dimer ABG pH 7.510 H POC ABG pCO2 POC ABG pO2 113.0 H ABG pO2 ABG O2 Saturation ABG Base Excess ABG Hemoglobin 11.1 L ABG Oxyhemoglobin ABG Sodium 135.0 L ABG Chloride ABG Glucose 162 H Oxyhemoglobin Carboxyhemoglobin 0.3 L Sodium Potassium Chloride Carbon Dioxide BUN Creatinine Glucose POC Glucose 152 H 139 H Calcium Magnesium Ferritin AST ALT Lactate Dehydrogenase Total Creatine Kinase Troponin T C-Reactive Protein Total Protein Albumin Triglycerides HDL Cholesterol Arterial Blood Glucose 162 H Arterial Blood Ionized Calcium 4.4 L Urine WBC (Auto) Vancomycin Trough Salicylates Acetaminophen Coronavirus (PCR) 07/29/21 07/29/21 07/29/21 04:35 04:35 05:47 WBC 12.0 H RBC Hgb Hct RDW Lymph % (Auto) Lymph # (Auto) Seg Neutrophils % Seg Neuts % (Manual) Lymphocytes % (Manual) Nucleated RBC % Seg Neutrophils # Seg Neutrophils # Man Lymphocytes # (Manual) Monocytes # (Manual) PT INR D-Dimer ABG pH POC ABG pCO2 POC ABG pO2 ABG pO2 ABG O2 Saturation ABG Base Excess ABG Hemoglobin ABG Oxyhemoglobin ABG Sodium ABG Chloride ABG Glucose Oxyhemoglobin Carboxyhemoglobin Sodium Potassium Chloride Carbon Dioxide BUN 34 H Creatinine Glucose 170 H POC Glucose 153 H Calcium Magnesium Ferritin AST ALT Lactate Dehydrogenase Total Creatine Kinase Troponin T C-Reactive Protein Total Protein Albumin Triglycerides HDL Cholesterol Arterial Blood Glucose Arterial Blood Ionized Calcium Urine WBC (Auto) Vancomycin Trough Salicylates Acetaminophen Coronavirus (PCR) 07/29/21 07/29/21 07/29/21 11:25 16:29 23:39 WBC RBC Hgb Hct RDW Lymph % (Auto) Lymph # (Auto) Seg Neutrophils % Seg Neuts % (Manual) Lymphocytes % (Manual) Nucleated RBC % Seg Neutrophils # Seg Neutrophils # Man Lymphocytes # (Manual) Monocytes # (Manual) PT INR D-Dimer ABG pH POC ABG pCO2 POC ABG pO2 ABG pO2 ABG O2 Saturation ABG Base Excess ABG Hemoglobin ABG Oxyhemoglobin ABG Sodium ABG Chloride ABG Glucose Oxyhemoglobin Carboxyhemoglobin Sodium Potassium Chloride Carbon Dioxide BUN Creatinine Glucose POC Glucose 142 H 167 H 141 H Calcium Magnesium Ferritin AST ALT Lactate Dehydrogenase Total Creatine Kinase Troponin T C-Reactive Protein Total Protein Albumin Triglycerides HDL Cholesterol Arterial Blood Glucose Arterial Blood Ionized Calcium Urine WBC (Auto) Vancomycin Trough Salicylates Acetaminophen Coronavirus (PCR) 07/30/21 07/30/21 07/30/21 05:00 05:00 05:00 WBC RBC Hgb Hct RDW Lymph % (Auto) Lymph # (Auto) Seg Neutrophils % Seg Neuts % (Manual) Lymphocytes % (Manual) Nucleated RBC % Seg Neutrophils # Seg Neutrophils # Man Lymphocytes # (Manual) Monocytes # (Manual) PT INR D-Dimer 1818.72 H ABG pH POC ABG pCO2 POC ABG pO2 ABG pO2 ABG O2 Saturation ABG Base Excess ABG Hemoglobin ABG Oxyhemoglobin ABG Sodium ABG Chloride ABG Glucose Oxyhemoglobin Carboxyhemoglobin Sodium Potassium Chloride Carbon Dioxide BUN 34 H Creatinine Glucose 184 H POC Glucose Calcium Magnesium Ferritin 242.1 H AST ALT Lactate Dehydrogenase 304 H Total Creatine Kinase Troponin T C-Reactive Protein Total Protein Albumin Triglycerides HDL Cholesterol Arterial Blood Glucose Arterial Blood Ionized Calcium Urine WBC (Auto) Vancomycin Trough Salicylates Acetaminophen Coronavirus (PCR) 07/30/21 07/30/21 07/30/21 05:00 06:08 11:41 WBC RBC 3.45 L Hgb 10.0 L Hct 29.9 L RDW Lymph % (Auto) Lymph # (Auto) Seg Neutrophils % Seg Neuts % (Manual) Lymphocytes % (Manual) Nucleated RBC % Seg Neutrophils # Seg Neutrophils # Man Lymphocytes # (Manual) Monocytes # (Manual) PT INR D-Dimer ABG pH POC ABG pCO2 POC ABG pO2 ABG pO2 ABG O2 Saturation ABG Base Excess ABG Hemoglobin ABG Oxyhemoglobin ABG Sodium ABG Chloride ABG Glucose Oxyhemoglobin Carboxyhemoglobin Sodium Potassium Chloride Carbon Dioxide BUN Creatinine Glucose POC Glucose 171 H 182 H Calcium Magnesium Ferritin AST ALT Lactate Dehydrogenase Total Creatine Kinase Troponin T C-Reactive Protein Total Protein Albumin Triglycerides HDL Cholesterol Arterial Blood Glucose Arterial Blood Ionized Calcium Urine WBC (Auto) Vancomycin Trough Salicylates Acetaminophen Coronavirus (PCR) 07/30/21 07/30/21 07/30/21 17:28 22:22 23:43 WBC RBC Hgb Hct RDW Lymph % (Auto) Lymph # (Auto) Seg Neutrophils % Seg Neuts % (Manual) Lymphocytes % (Manual) Nucleated RBC % Seg Neutrophils # Seg Neutrophils # Man Lymphocytes # (Manual) Monocytes # (Manual) PT INR D-Dimer ABG pH POC ABG pCO2 POC ABG pO2 ABG pO2 ABG O2 Saturation ABG Base Excess ABG Hemoglobin ABG Oxyhemoglobin ABG Sodium ABG Chloride ABG Glucose Oxyhemoglobin Carboxyhemoglobin Sodium Potassium Chloride Carbon Dioxide BUN Creatinine Glucose POC Glucose 176 H 150 H 161 H Calcium Magnesium Ferritin AST ALT Lactate Dehydrogenase Total Creatine Kinase Troponin T C-Reactive Protein Total Protein Albumin Triglycerides HDL Cholesterol Arterial Blood Glucose Arterial Blood Ionized Calcium Urine WBC (Auto) Vancomycin Trough Salicylates Acetaminophen Coronavirus (PCR) 07/31/21 07/31/21 07/31/21 04:00 05:25 05:50 WBC 11.5 H RBC Hgb Hct RDW Lymph % (Auto) Lymph # (Auto) Seg Neutrophils % Seg Neuts % (Manual) Lymphocytes % (Manual) Nucleated RBC % Seg Neutrophils # Seg Neutrophils # Man Lymphocytes # (Manual) Monocytes # (Manual) PT INR D-Dimer ABG pH POC ABG pCO2 POC ABG pO2 ABG pO2 ABG O2 Saturation ABG Base Excess ABG Hemoglobin 11.5 L ABG Oxyhemoglobin ABG Sodium ABG Chloride ABG Glucose 143 H Oxyhemoglobin Carboxyhemoglobin Sodium Potassium Chloride Carbon Dioxide BUN Creatinine Glucose POC Glucose 150 H Calcium Magnesium Ferritin AST ALT Lactate Dehydrogenase Total Creatine Kinase Troponin T C-Reactive Protein Total Protein Albumin Triglycerides HDL Cholesterol Arterial Blood Glucose 143 H Arterial Blood Ionized Calcium Urine WBC (Auto) Vancomycin Trough Salicylates Acetaminophen Coronavirus (PCR) 07/31/21 07/31/21 07/31/21 05:50 11:36 17:30 WBC RBC Hgb Hct RDW Lymph % (Auto) Lymph # (Auto) Seg Neutrophils % Seg Neuts % (Manual) Lymphocytes % (Manual) Nucleated RBC % Seg Neutrophils # Seg Neutrophils # Man Lymphocytes # (Manual) Monocytes # (Manual) PT INR D-Dimer ABG pH POC ABG pCO2 POC ABG pO2 ABG pO2 ABG O2 Saturation ABG Base Excess ABG Hemoglobin ABG Oxyhemoglobin ABG Sodium ABG Chloride ABG Glucose Oxyhemoglobin Carboxyhemoglobin Sodium Potassium Chloride Carbon Dioxide BUN 32 H Creatinine Glucose 158 H POC Glucose 179 H 115 H Calcium Magnesium Ferritin AST ALT Lactate Dehydrogenase Total Creatine Kinase Troponin T C-Reactive Protein Total Protein Albumin Triglycerides HDL Cholesterol Arterial Blood Glucose Arterial Blood Ionized Calcium Urine WBC (Auto) Vancomycin Trough Salicylates Acetaminophen Coronavirus (PCR) 07/31/21 08/01/21 08/01/21 22:36 04:00 04:58 WBC RBC Hgb Hct RDW Lymph % (Auto) Lymph # (Auto) Seg Neutrophils % Seg Neuts % (Manual) Lymphocytes % (Manual) Nucleated RBC % Seg Neutrophils # Seg Neutrophils # Man Lymphocytes # (Manual) Monocytes # (Manual) PT INR D-Dimer ABG pH 7.477 H POC ABG pCO2 POC ABG pO2 ABG pO2 ABG O2 Saturation ABG Base Excess ABG Hemoglobin 11.4 L ABG Oxyhemoglobin ABG Sodium 134.4 L ABG Chloride ABG Glucose 173 H Oxyhemoglobin Carboxyhemoglobin 0.3 L Sodium Potassium Chloride Carbon Dioxide BUN Creatinine Glucose POC Glucose 150 H 153 H Calcium Magnesium Ferritin AST ALT Lactate Dehydrogenase Total Creatine Kinase Troponin T C-Reactive Protein Total Protein Albumin Triglycerides HDL Cholesterol Arterial Blood Glucose 173 H Arterial Blood Ionized Calcium Urine WBC (Auto) Vancomycin Trough Salicylates Acetaminophen Coronavirus (PCR) 08/01/21 08/01/21 08/01/21 06:00 06:00 06:00 WBC RBC Hgb Hct RDW Lymph % (Auto) Lymph # (Auto) Seg Neutrophils % Seg Neuts % (Manual) Lymphocytes % (Manual) Nucleated RBC % Seg Neutrophils # Seg Neutrophils # Man Lymphocytes # (Manual) Monocytes # (Manual) PT INR D-Dimer 1503.43 H ABG pH POC ABG pCO2 POC ABG pO2 ABG pO2 ABG O2 Saturation ABG Base Excess ABG Hemoglobin ABG Oxyhemoglobin ABG Sodium ABG Chloride ABG Glucose Oxyhemoglobin Carboxyhemoglobin Sodium 136 L Potassium Chloride Carbon Dioxide 31 H BUN 28 H Creatinine 0.5 L Glucose 154 H POC Glucose Calcium Magnesium Ferritin 244.0 H AST ALT Lactate Dehydrogenase 369 H Total Creatine Kinase Troponin T C-Reactive Protein Total Protein Albumin Triglycerides HDL Cholesterol Arterial Blood Glucose Arterial Blood Ionized Calcium Urine WBC (Auto) Vancomycin Trough Salicylates Acetaminophen Coronavirus (PCR) 08/01/21 08/01/21 08/01/21 12:32 18:30 23:23 WBC RBC Hgb Hct RDW Lymph % (Auto) Lymph # (Auto) Seg Neutrophils % Seg Neuts % (Manual) Lymphocytes % (Manual) Nucleated RBC % Seg Neutrophils # Seg Neutrophils # Man Lymphocytes # (Manual) Monocytes # (Manual) PT INR D-Dimer ABG pH POC ABG pCO2 POC ABG pO2 ABG pO2 ABG O2 Saturation ABG Base Excess ABG Hemoglobin ABG Oxyhemoglobin ABG Sodium ABG Chloride ABG Glucose Oxyhemoglobin Carboxyhemoglobin Sodium Potassium Chloride Carbon Dioxide BUN Creatinine Glucose POC Glucose 144 H 127 H 123 H Calcium Magnesium Ferritin AST ALT Lactate Dehydrogenase Total Creatine Kinase Troponin T C-Reactive Protein Total Protein Albumin Triglycerides HDL Cholesterol Arterial Blood Glucose Arterial Blood Ionized Calcium Urine WBC (Auto) Vancomycin Trough Salicylates Acetaminophen Coronavirus (PCR) 08/02/21 08/02/21 08/02/21 05:30 05:30 11:18 WBC 11.2 H RBC Hgb Hct RDW Lymph % (Auto) Lymph # (Auto) Seg Neutrophils % Seg Neuts % (Manual) Lymphocytes % (Manual) Nucleated RBC % Seg Neutrophils # Seg Neutrophils # Man Lymphocytes # (Manual) Monocytes # (Manual) PT INR D-Dimer ABG pH POC ABG pCO2 POC ABG pO2 ABG pO2 ABG O2 Saturation ABG Base Excess ABG Hemoglobin ABG Oxyhemoglobin ABG Sodium ABG Chloride ABG Glucose Oxyhemoglobin Carboxyhemoglobin Sodium Potassium Chloride Carbon Dioxide 33 H BUN 23 H Creatinine 0.5 L Glucose 108 H POC Glucose 131 H Calcium Magnesium Ferritin AST ALT Lactate Dehydrogenase Total Creatine Kinase Troponin T C-Reactive Protein Total Protein Albumin Triglycerides HDL Cholesterol Arterial Blood Glucose Arterial Blood Ionized Calcium Urine WBC (Auto) Vancomycin Trough Salicylates Acetaminophen Coronavirus (PCR) 08/02/21 08/03/21 08/03/21 17:22 05:33 05:33 WBC RBC Hgb Hct RDW Lymph % (Auto) Lymph # (Auto) Seg Neutrophils % Seg Neuts % (Manual) Lymphocytes % (Manual) Nucleated RBC % Seg Neutrophils # Seg Neutrophils # Man Lymphocytes # (Manual) Monocytes # (Manual) PT 15.4 H INR 1.17 H D-Dimer 1383.44 H ABG pH POC ABG pCO2 POC ABG pO2 ABG pO2 ABG O2 Saturation ABG Base Excess ABG Hemoglobin ABG Oxyhemoglobin ABG Sodium ABG Chloride ABG Glucose Oxyhemoglobin Carboxyhemoglobin Sodium Potassium Chloride Carbon Dioxide BUN Creatinine Glucose POC Glucose 127 H Calcium Magnesium Ferritin AST ALT Lactate Dehydrogenase 427 H Total Creatine Kinase Troponin T C-Reactive Protein Total Protein Albumin Triglycerides HDL Cholesterol Arterial Blood Glucose Arterial Blood Ionized Calcium Urine WBC (Auto) Vancomycin Trough Salicylates Acetaminophen Coronavirus (PCR) 08/03/21 08/03/21 08/03/21 05:33 05:33 05:33 WBC RBC Hgb Hct RDW 15.4 H Lymph % (Auto) Lymph # (Auto) Seg Neutrophils % Seg Neuts % (Manual) Lymphocytes % (Manual) Nucleated RBC % Seg Neutrophils # Seg Neutrophils # Man Lymphocytes # (Manual) Monocytes # (Manual) PT INR D-Dimer ABG pH POC ABG pCO2 POC ABG pO2 ABG pO2 ABG O2 Saturation ABG Base Excess ABG Hemoglobin ABG Oxyhemoglobin ABG Sodium ABG Chloride ABG Glucose Oxyhemoglobin Carboxyhemoglobin Sodium 136 L Potassium Chloride Carbon Dioxide BUN 28 H Creatinine Glucose 114 H POC Glucose Calcium Magnesium Ferritin 263.2 H AST ALT Lactate Dehydrogenase Total Creatine Kinase Troponin T C-Reactive Protein Total Protein Albumin Triglycerides HDL Cholesterol Arterial Blood Glucose Arterial Blood Ionized Calcium Urine WBC (Auto) Vancomycin Trough Salicylates Acetaminophen Coronavirus (PCR) 08/03/21 08/03/21 08/03/21 05:59 07:57 12:24 WBC RBC Hgb Hct RDW Lymph % (Auto) Lymph # (Auto) Seg Neutrophils % Seg Neuts % (Manual) Lymphocytes % (Manual) Nucleated RBC % Seg Neutrophils # Seg Neutrophils # Man Lymphocytes # (Manual) Monocytes # (Manual) PT INR D-Dimer ABG pH POC ABG pCO2 POC ABG pO2 ABG pO2 ABG O2 Saturation ABG Base Excess ABG Hemoglobin ABG Oxyhemoglobin ABG Sodium ABG Chloride ABG Glucose Oxyhemoglobin Carboxyhemoglobin Sodium Potassium Chloride Carbon Dioxide BUN Creatinine Glucose POC Glucose 110 H 124 H 125 H Calcium Magnesium Ferritin AST ALT Lactate Dehydrogenase Total Creatine Kinase Troponin T C-Reactive Protein Total Protein Albumin Triglycerides HDL Cholesterol Arterial Blood Glucose Arterial Blood Ionized Calcium Urine WBC (Auto) Vancomycin Trough Salicylates Acetaminophen Coronavirus (PCR) 08/03/21 08/03/21 08/04/21 16:00 23:22 07:11 WBC RBC Hgb Hct RDW Lymph % (Auto) Lymph # (Auto) Seg Neutrophils % Seg Neuts % (Manual) Lymphocytes % (Manual) Nucleated RBC % Seg Neutrophils # Seg Neutrophils # Man Lymphocytes # (Manual) Monocytes # (Manual) PT INR D-Dimer ABG pH POC ABG pCO2 POC ABG pO2 ABG pO2 ABG O2 Saturation ABG Base Excess ABG Hemoglobin ABG Oxyhemoglobin ABG Sodium ABG Chloride ABG Glucose Oxyhemoglobin Carboxyhemoglobin Sodium Potassium Chloride Carbon Dioxide BUN 29 H Creatinine Glucose 105 H POC Glucose 123 H 114 H Calcium Magnesium Ferritin AST 41 H ALT 79 H Lactate Dehydrogenase Total Creatine Kinase Troponin T C-Reactive Protein Total Protein Albumin 3.7 L Triglycerides HDL Cholesterol Arterial Blood Glucose Arterial Blood Ionized Calcium Urine WBC (Auto) Vancomycin Trough Salicylates Acetaminophen Coronavirus (PCR) 08/04/21 11:41 WBC RBC Hgb Hct RDW Lymph % (Auto) Lymph # (Auto) Seg Neutrophils % Seg Neuts % (Manual) Lymphocytes % (Manual) Nucleated RBC % Seg Neutrophils # Seg Neutrophils # Man Lymphocytes # (Manual) Monocytes # (Manual) PT INR D-Dimer ABG pH POC ABG pCO2 POC ABG pO2 ABG pO2 ABG O2 Saturation ABG Base Excess ABG Hemoglobin ABG Oxyhemoglobin ABG Sodium ABG Chloride ABG Glucose Oxyhemoglobin Carboxyhemoglobin Sodium Potassium Chloride Carbon Dioxide BUN Creatinine Glucose POC Glucose 106 H Calcium Magnesium Ferritin AST ALT Lactate Dehydrogenase Total Creatine Kinase Troponin T C-Reactive Protein Total Protein Albumin Triglycerides HDL Cholesterol Arterial Blood Glucose Arterial Blood Ionized Calcium Urine WBC (Auto) Vancomycin Trough Salicylates Acetaminophen Coronavirus (PCR)
[2021-08-04] MEDS: INSULIN GLARGINE 100 UNITS/ML SUB-Q SCH (22:27)
[2021-08-05] MEDS: INSULIN LISPRO 100 UNIT/ML SUB-Q SCH ×4 (02:00→18:00)
[2021-08-05] MEDS: hydrALAZINE 20 MG/1 ML INJ IV SCH ×4 (02:03→19:07)
[2021-08-05] MEDS: methylPREDNISolone Sod Succinate 40 MG/1 ML INJ IV SCH ×3 (05:02→23:20)
[2021-08-05 06:24] LABS: Hematocrit 31.3 % (30.3-42.9); Hemoglobin 10.4 gm/dl (10.1-14.3); Mean Corpuscular HGB Conc 33 % (30-34); Mean Corpuscular Volume 88 fl (79-97); Platelet Count 219 K/mm3 (140-440); Red Blood Count 3.55 M/mm3 (3.65-5.03); Red Cell Distribution Width 18.1 % (13.2-15.2)
[2021-08-05 07:14] LABS: Alanine Aminotransferase 97 units/L (7-56); Albumin 3.7 g/dL (3.9-5); Blood Urea Nitrogen 26 mg/dL (7-17); Calcium 9.3 mg/dL (8.4-10.2); Hemolysis Index 13
[2021-08-05 07:33] LABS: BUN/Creatinine Ratio 43
[2021-08-05] MEDS: ENOXAPARIN 100 MG/1 ML INJ SUB-Q SCH ×2 (10:27→23:21)
[2021-08-05] MEDS: FAMOTIDINE 20 MG/2 ML INJ IV SCH ×2 (11:28→23:21)
--- NOTE | 2021-08-05 11:46 | Progress Note ---
Assessment and Plan 55 y/o obese female with acute respiratory failure, pulmonary embolism, now with renal failure, most likely all secondary to COVID 19 08/05/21: Continue to wean for sats >88%. If swallowing is good would switch to prednisone 60 daily with prolonged taper. 08/04/21: Will drop steroids down to 20q8 which is the same as Pred 60 daily so when patient can eat, ok to switch to this. Continue supplemental Oxygen. PT/OT needed. All others per primary team. 08/03/21: Pulm status is stable to improving. Suggest continuing 2 liters until patient can ambulate or after PT/OT assessment before further weaning. Will start to wean steroids tomorrow. If able to swallow appropriately will switch to Prednisone 60 if not then solumedrol 20 IV q8 08/02/21: Successful extubation with weaning of oxygen. Still confused, most likely ICU delirium. Awaiting speech eval. If able to swallow suggest scheduled BID seroquel (50 BID). Spoke with cards. They only feel we need to treat the PE and DVT as this thrombus is likely from passing through the heart from the venous system. If able to swallow will do Eliquis if she can afford it. Given stability and improvement, will transfer to COVID floor with telemetry. Needs PT/OT as she may need rehab. Guarded prognosis still but promising. 08/01/21: Will attempt extubation this am. Ordered bipap therapy for PRN. Likely will need bp control but will address once extubated. Called family to update and then will call back once off the vent. 07/31/21: Drop PEEP to 6 later this afternoon and attempt to wean sedation to off. patient will likely not tolerate this. If she does then will try PSV this afternoon. If not, will plan to extubate with bipap available PRN early tomorrow morning. Discussed this with daughters over the phone. Asked nursing to address transducer with art line. I suspect the positioning is incorrect. 07/30/21: Will wean PEEP to 10 this afternoon. If tolerates then around 6-8 PM may drop to 8. Would not go any further than that today. Keep FiO2 at 40%. Once PEEP around 6, can start to lighten sedation and try PSV trials. Prognosis is still guarded. Spoke with family over the phone to update them on progress but also explain to them their family member is still gravely ill. Keep steroids at current dose at leas through the weekend. 07/29/21: Wean FiO2 as tolerated. PaO2 is good. Continue current dose of steroids. Changed Hydralazine. Continue anticoagulation. May be able to start weaning PEEP tomorrow. 07/28/21: Repeat CXR today to check ET tube. Wean steroids when able. Continue to wean FiO2 as tolerated. Do not move PEEP until FiO2 is at 45-50%. Guarded prognosis remains. Will call family now. 07/27/21: Ok with advancing ET tube 2-3 cm. Continue to wean FiO2 as tolerated. Repeat CXR post advancement of ET tube. Dropped steroids too 40q8 07/26/21: Back down to 65% like on 07/22 but PEEP is at 12. Will monitor closely. COntinue current level of sedation and high dose steroids. Prognosis is very very guarded. 07/23/21: Dropped FiO2 to 70. Hopeful to wean back down. Keep peep elevated until FiO2 at 50-55%. Continue High dose steroids. Keep RASS at -4. Na is better. Will stop D5W. Updated Daughter (Linda) and GodDaughter over the phone. If someone could please call them at least one day over the weekend I will call them again on Monday. Prognosis remains very guarded. Explained to them the high mortality rate associated with COVID and mechanical ventilation. 07/22/21: Dropped Fio2 to 65. Continue to wean for sats >88%. keep elevated peep until FiO2 around 50-55% so hopefully in the next 24-36 hours we can get there. Continue sedation to keep rass at -4. Continue high dose steroids. W ill continue D5W for now until Free water can control sodium. need CBC in the am along with BMP. Prognosis still remains guarded. Continue lovenox 07/21/21: Dropped FiO2 to 80%. Continue to wean for sats >88%. Keep peep elevated until FiO2 around 50-55%. Continue remdesivir and adequate levels of sedation. Continue high dose steroids. No proning for now. Continue therapeutic lovenox. Prognosis remains guarded. 07/20/21: COVID positive. Started Remdesivir. Renal function improved. CO ntinue high dose steroids at current dosing for now. Suggest repeat ABG later this afternoon if able, may need art line but BP stable for now. No proning. Agree with therapeutic Lovenox. Guarded prognosis. 1. Follow up COVID testing, continue isolation 2. Agree with high dose IV steroids, if positive, will change to solumedrol 125q8 3. If positive then would need remdesivir and Actemra, hopefully still a candidate given bump in renal function 4. Unable to prone patient at moment, but did increase PEEP to 20 and ordered repeat ABG at 1400 5 Very very guarded prognosis CCT 31 minutes. Subjective Date of service: 08/05/21 Principal diagnosis: COVID pneumonia Interval history: No acute events. Patient has been weaned to room air. Objective Vital Signs - 12hr 08/05/21 08/05/21 08/05/21 01:51 02:09 05:50 Temperature 98.2 F 98.8 F Pulse Rate 78 74 Pulse Rate [ 88 From Monitor] Respiratory 20 20 Rate Blood Pressure 122/62 Blood Pressure 149/74 [Left] O2 Sat by Pulse 93 94 92 Oximetry 08/05/21 07:26 Temperature Pulse Rate Pulse Rate [ From Monitor] Respiratory Rate Blood Pressure 120/68 Blood Pressure [Left] O2 Sat by Pulse Oximetry Constitutional: no acute distress, comatose ENT: other (orally intubated and sedated) Ascultation: Bilateral: diminished breath sounds Cardiovascular: regular rate and rhythm Gastrointestinal: normoactive bowel sounds, soft, non-tender Integumentary: normal Extremities: no cyanosis Neurologic: other (Sedated) CBC and BMP: 08/05/21 05:33 08/05/21 05:33 ABG, PT/INR, D-dimer: ABG ABG pH 7.477 (7.320-7.450) H 08/01/21 04:00 POC ABG pCO2 41.3 mmHg (32.0-48.0) 08/01/21 04:00 ABG pCO2 35.2 mm Hg 07/19/21 Unknown POC ABG pO2 89.8 mmHg (83-108) 08/01/21 04:00 ABG pO2 64.2 mm Hg (80.0-90.0) L 07/19/21 Unknown POC ABG HCO3 29.9 08/01/21 04:00 ABG O2 Saturation 97.0 (0-100) 08/01/21 04:00 PT/INR, D-dimer PT 15.4 Sec. (12.2-14.9) H 08/03/21 05:33 INR 1.17 (0.87-1.13) H 08/03/21 05:33 D-Dimer 1383.44 ng/mlDDU (0-234) H 08/03/21 05:33 Abnormal lab findings: Abnormal Labs 07/18/21 07/18/21 07/18/21 16:00 16:00 16:00 WBC RBC Hgb Hct RDW 15.3 H Lymph % (Auto) 7.9 L Lymph # (Auto) 0.8 L Seg Neutrophils % 86.3 H Seg Neuts % (Manual) Lymphocytes % (Manual) Nucleated RBC % Seg Neutrophils # 9.0 H Seg Neutrophils # Man Lymphocytes # (Manual) Monocytes # (Manual) PT 15.1 H INR D-Dimer > 48911 H ABG pH POC ABG pCO2 POC ABG pO2 ABG pO2 ABG O2 Saturation ABG Base Excess ABG Hemoglobin ABG Oxyhemoglobin ABG Sodium ABG Chloride ABG Glucose Oxyhemoglobin Carboxyhemoglobin Sodium Potassium 3.5 L Chloride Carbon Dioxide 20 L BUN 19 H Creatinine Glucose 140 H POC Glucose Calcium Magnesium Ferritin AST 43 H ALT Lactate Dehydrogenase 705 H Total Creatine Kinase 157 H Troponin T 0.106 H* C-Reactive Protein 33.00 H Total Protein Albumin 3.2 L Triglycerides 156 H HDL Cholesterol 33 L Arterial Blood Glucose Arterial Blood Ionized Calcium Urine WBC (Auto) Vancomycin Trough Salicylates Acetaminophen Coronavirus (PCR) 07/18/21 07/18/21 07/18/21 16:00 16:00 16:00 WBC RBC Hgb Hct RDW Lymph % (Auto) Lymph # (Auto) Seg Neutrophils % Seg Neuts % (Manual) Lymphocytes % (Manual) Nucleated RBC % Seg Neutrophils # Seg Neutrophils # Man Lymphocytes # (Manual) Monocytes # (Manual) PT INR D-Dimer ABG pH POC ABG pCO2 POC ABG pO2 ABG pO2 ABG O2 Saturation ABG Base Excess ABG Hemoglobin ABG Oxyhemoglobin ABG Sodium ABG Chloride ABG Glucose Oxyhemoglobin Carboxyhemoglobin Sodium Potassium Chloride Carbon Dioxide BUN Creatinine Glucose POC Glucose Calcium Magnesium Ferritin 657.0 H AST ALT Lactate Dehydrogenase Total Creatine Kinase Troponin T C-Reactive Protein Total Protein Albumin Triglycerides HDL Cholesterol Arterial Blood Glucose Arterial Blood Ionized Calcium Urine WBC (Auto) Vancomycin Trough Salicylates < 0.3 L Acetaminophen 5.7 L Coronavirus (PCR) 07/18/21 07/18/21 07/19/21 Unknown Unknown 04:33 WBC RBC Hgb Hct RDW Lymph % (Auto) Lymph # (Auto) Seg Neutrophils % Seg Neuts % (Manual) Lymphocytes % (Manual) Nucleated RBC % Seg Neutrophils # Seg Neutrophils # Man Lymphocytes # (Manual) Monocytes # (Manual) PT INR D-Dimer ABG pH 7.275 L POC ABG pCO2 POC ABG pO2 68.7 L 53.1 L ABG pO2 ABG O2 Saturation ABG Base Excess ABG Hemoglobin ABG Oxyhemoglobin 88.3 L 85.3 L ABG Sodium ABG Chloride 109.0 H ABG Glucose 170 H 150 H Oxyhemoglobin Carboxyhemoglobin 0 L 0.3 L Sodium Potassium Chloride Carbon Dioxide BUN Creatinine Glucose POC Glucose Calcium Magnesium Ferritin AST ALT Lactate Dehydrogenase Total Creatine Kinase Troponin T C-Reactive Protein Total Protein Albumin Triglycerides HDL Cholesterol Arterial Blood Glucose 170 H 150 H Arterial Blood Ionized Calcium Urine WBC (Auto) 9.0 H Vancomycin Trough Salicylates Acetaminophen Coronavirus (PCR) 07/19/21 07/19/21 07/19/21 04:59 04:59 Unknown WBC RBC Hgb Hct RDW 16.0 H Lymph % (Auto) 10.7 L Lymph # (Auto) 1.1 L Seg Neutrophils % 84.3 H Seg Neuts % (Manual) Lymphocytes % (Manual) Nucleated RBC % Seg Neutrophils # 8.7 H Seg Neutrophils # Man Lymphocytes # (Manual) Monocytes # (Manual) PT INR D-Dimer ABG pH POC ABG pCO2 POC ABG pO2 ABG pO2 ABG O2 Saturation ABG Base Excess ABG Hemoglobin ABG Oxyhemoglobin ABG Sodium ABG Chloride ABG Glucose Oxyhemoglobin Carboxyhemoglobin Sodium Potassium Chloride 108.8 H Carbon Dioxide 21 L BUN 28 H Creatinine 1.8 H Glucose 145 H POC Glucose Calcium 7.8 L Magnesium Ferritin AST ALT Lactate Dehydrogenase Total Creatine Kinase Troponin T C-Reactive Protein Total Protein 6.2 L Albumin 3.2 L Triglycerides HDL Cholesterol Arterial Blood Glucose Arterial Blood Ionized Calcium Urine WBC (Auto) Vancomycin Trough Salicylates Acetaminophen Coronavirus (PCR) Positive A 07/19/21 07/20/21 07/20/21 Unknown 00:14 04:44 WBC RBC Hgb Hct RDW Lymph % (Auto) Lymph # (Auto) Seg Neutrophils % Seg Neuts % (Manual) Lymphocytes % (Manual) Nucleated RBC % Seg Neutrophils # Seg Neutrophils # Man Lymphocytes # (Manual) Monocytes # (Manual) PT INR D-Dimer ABG pH POC ABG pCO2 POC ABG pO2 ABG pO2 64.2 L ABG O2 Saturation 93.2 L ABG Base Excess -4.5 L ABG Hemoglobin 11.0 L ABG Oxyhemoglobin ABG Sodium ABG Chloride ABG Glucose Oxyhemoglobin 91.9 L Carboxyhemoglobin Sodium Potassium Chloride 112.2 H Carbon Dioxide BUN 38 H Creatinine 1.3 H Glucose 156 H POC Glucose 164 H Calcium 8.1 L Magnesium 3.10 H Ferritin AST ALT Lactate Dehydrogenase Total Creatine Kinase Troponin T C-Reactive Protein Total Protein Albumin 2.8 L Triglycerides HDL Cholesterol Arterial Blood Glucose Arterial Blood Ionized Calcium Urine WBC (Auto) Vancomycin Trough Salicylates Acetaminophen Coronavirus (PCR) 07/20/21 07/20/21 07/20/21 04:44 05:00 05:40 WBC RBC 3.42 L Hgb 9.7 L Hct 29.3 L RDW 16.1 H Lymph % (Auto) Lymph # (Auto) Seg Neutrophils % Seg Neuts % (Manual) Lymphocytes % (Manual) Nucleated RBC % Seg Neutrophils # Seg Neutrophils # Man Lymphocytes # (Manual) Monocytes # (Manual) PT INR D-Dimer ABG pH POC ABG pCO2 POC ABG pO2 139.0 H ABG pO2 ABG O2 Saturation ABG Base Excess ABG Hemoglobin 10.1 L ABG Oxyhemoglobin ABG Sodium ABG Chloride 113.0 H ABG Glucose 155 H Oxyhemoglobin Carboxyhemoglobin 0.3 L Sodium Potassium Chloride Carbon Dioxide BUN Creatinine Glucose POC Glucose 164 H Calcium Magnesium Ferritin AST ALT Lactate Dehydrogenase Total Creatine Kinase Troponin T C-Reactive Protein Total Protein Albumin Triglycerides HDL Cholesterol Arterial Blood Glucose 155 H Arterial Blood Ionized Calcium 4.4 L Urine WBC (Auto) Vancomycin Trough Salicylates Acetaminophen Coronavirus (PCR) 07/20/21 07/20/21 07/21/21 11:40 17:48 03:31 WBC RBC Hgb Hct RDW Lymph % (Auto) Lymph # (Auto) Seg Neutrophils % Seg Neuts % (Manual) Lymphocytes % (Manual) Nucleated RBC % Seg Neutrophils # Seg Neutrophils # Man Lymphocytes # (Manual) Monocytes # (Manual) PT INR D-Dimer ABG pH POC ABG pCO2 POC ABG pO2 ABG pO2 ABG O2 Saturation ABG Base Excess ABG Hemoglobin ABG Oxyhemoglobin ABG Sodium ABG Chloride ABG Glucose Oxyhemoglobin Carboxyhemoglobin Sodium Potassium Chloride Carbon Dioxide BUN Creatinine Glucose POC Glucose 137 H 143 H 157 H Calcium Magnesium Ferritin AST ALT Lactate Dehydrogenase Total Creatine Kinase Troponin T C-Reactive Protein Total Protein Albumin Triglycerides HDL Cholesterol Arterial Blood Glucose Arterial Blood Ionized Calcium Urine WBC (Auto) Vancomycin Trough Salicylates Acetaminophen Coronavirus (PCR) 07/21/21 07/21/21 07/21/21 04:30 04:52 05:21 WBC RBC Hgb Hct RDW Lymph % (Auto) Lymph # (Auto) Seg Neutrophils % Seg Neuts % (Manual) Lymphocytes % (Manual) Nucleated RBC % Seg Neutrophils # Seg Neutrophils # Man Lymphocytes # (Manual) Monocytes # (Manual) PT INR D-Dimer ABG pH POC ABG pCO2 31.7 L POC ABG pO2 77.6 L ABG pO2 ABG O2 Saturation ABG Base Excess ABG Hemoglobin 10.2 L ABG Oxyhemoglobin ABG Sodium 148.3 H ABG Chloride 120.0 H ABG Glucose 168 H Oxyhemoglobin Carboxyhemoglobin 0.2 L Sodium 150 H Potassium Chloride 115.7 H Carbon Dioxide BUN 49 H Creatinine 1.4 H Glucose 185 H POC Glucose 170 H Calcium 8.3 L Magnesium Ferritin AST ALT Lactate Dehydrogenase Total Creatine Kinase Troponin T C-Reactive Protein Total Protein Albumin 3.0 L Triglycerides HDL Cholesterol Arterial Blood Glucose 168 H Arterial Blood Ionized Calcium 4.4 L Urine WBC (Auto) Vancomycin Trough Salicylates Acetaminophen Coronavirus (PCR) 07/21/21 07/21/21 07/21/21 11:17 17:26 23:40 WBC RBC Hgb Hct RDW Lymph % (Auto) Lymph # (Auto) Seg Neutrophils % Seg Neuts % (Manual) Lymphocytes % (Manual) Nucleated RBC % Seg Neutrophils # Seg Neutrophils # Man Lymphocytes # (Manual) Monocytes # (Manual) PT INR D-Dimer ABG pH POC ABG pCO2 POC ABG pO2 ABG pO2 ABG O2 Saturation ABG Base Excess ABG Hemoglobin ABG Oxyhemoglobin ABG Sodium ABG Chloride ABG Glucose Oxyhemoglobin Carboxyhemoglobin Sodium Potassium Chloride Carbon Dioxide BUN Creatinine Glucose POC Glucose 176 H 184 H 161 H Calcium Magnesium Ferritin AST ALT Lactate Dehydrogenase Total Creatine Kinase Troponin T C-Reactive Protein Total Protein Albumin Triglycerides HDL Cholesterol Arterial Blood Glucose Arterial Blood Ionized Calcium Urine WBC (Auto) Vancomycin Trough Salicylates Acetaminophen Coronavirus (PCR) 07/22/21 07/22/21 07/22/21 03:30 04:39 05:29 WBC RBC Hgb Hct RDW Lymph % (Auto) Lymph # (Auto) Seg Neutrophils % Seg Neuts % (Manual) Lymphocytes % (Manual) Nucleated RBC % Seg Neutrophils # Seg Neutrophils # Man Lymphocytes # (Manual) Monocytes # (Manual) PT INR D-Dimer ABG pH POC ABG pCO2 POC ABG pO2 67.4 L ABG pO2 ABG O2 Saturation ABG Base Excess ABG Hemoglobin 10.4 L ABG Oxyhemoglobin 91.8 L ABG Sodium 118.4 L ABG Chloride 114.0 H ABG Glucose 189 H Oxyhemoglobin Carboxyhemoglobin 0.2 L Sodium 146 H Potassium Chloride 112.8 H Carbon Dioxide 21 L BUN 46 H Creatinine Glucose 191 H POC Glucose 191 H Calcium Magnesium Ferritin AST ALT Lactate Dehydrogenase Total Creatine Kinase Troponin T C-Reactive Protein Total Protein Albumin 2.9 L Triglycerides HDL Cholesterol Arterial Blood Glucose 189 H Arterial Blood Ionized Calcium 4.5 L Urine WBC (Auto) Vancomycin Trough Salicylates Acetaminophen Coronavirus (PCR) 07/22/21 07/22/21 07/22/21 12:17 17:54 23:34 WBC RBC Hgb Hct RDW Lymph % (Auto) Lymph # (Auto) Seg Neutrophils % Seg Neuts % (Manual) Lymphocytes % (Manual) Nucleated RBC % Seg Neutrophils # Seg Neutrophils # Man Lymphocytes # (Manual) Monocytes # (Manual) PT INR D-Dimer ABG pH POC ABG pCO2 POC ABG pO2 ABG pO2 ABG O2 Saturation ABG Base Excess ABG Hemoglobin ABG Oxyhemoglobin ABG Sodium ABG Chloride ABG Glucose Oxyhemoglobin Carboxyhemoglobin Sodium Potassium Chloride Carbon Dioxide BUN Creatinine Glucose POC Glucose 206 H 213 H 164 H Calcium Magnesium Ferritin AST ALT Lactate Dehydrogenase Total Creatine Kinase Troponin T C-Reactive Protein Total Protein Albumin Triglycerides HDL Cholesterol Arterial Blood Glucose Arterial Blood Ionized Calcium Urine WBC (Auto) Vancomycin Trough Salicylates Acetaminophen Coronavirus (PCR) 07/23/21 07/23/21 07/23/21 03:30 05:21 09:02 WBC RBC Hgb Hct RDW Lymph % (Auto) Lymph # (Auto) Seg Neutrophils % Seg Neuts % (Manual) Lymphocytes % (Manual) Nucleated RBC % Seg Neutrophils # Seg Neutrophils # Man Lymphocytes # (Manual) Monocytes # (Manual) PT INR D-Dimer ABG pH POC ABG pCO2 POC ABG pO2 70.9 L ABG pO2 ABG O2 Saturation ABG Base Excess ABG Hemoglobin 10.9 L ABG Oxyhemoglobin 92.9 L ABG Sodium 130.2 L ABG Chloride 109.0 H ABG Glucose 177 H Oxyhemoglobin Carboxyhemoglobin 0.1 L Sodium Potassium 5.1 H Chloride Carbon Dioxide BUN 32 H Creatinine Glucose 200 H POC Glucose 191 H Calcium Magnesium Ferritin AST ALT Lactate Dehydrogenase Total Creatine Kinase Troponin T C-Reactive Protein Total Protein Albumin Triglycerides HDL Cholesterol Arterial Blood Glucose 177 H Arterial Blood Ionized Calcium 4.3 L Urine WBC (Auto) Vancomycin Trough Salicylates Acetaminophen Coronavirus (PCR) 07/23/21 07/23/21 07/23/21 09:02 11:34 17:52 WBC 13.8 H RBC Hgb Hct RDW 15.7 H Lymph % (Auto) Lymph # (Auto) Seg Neutrophils % Seg Neuts % (Manual) Lymphocytes % (Manual) Nucleated RBC % Seg Neutrophils # Seg Neutrophils # Man Lymphocytes # (Manual) Monocytes # (Manual) PT INR D-Dimer ABG pH POC ABG pCO2 POC ABG pO2 ABG pO2 ABG O2 Saturation ABG Base Excess ABG Hemoglobin ABG Oxyhemoglobin ABG Sodium ABG Chloride ABG Glucose Oxyhemoglobin Carboxyhemoglobin Sodium Potassium Chloride Carbon Dioxide BUN Creatinine Glucose POC Glucose 208 H 158 H Calcium Magnesium Ferritin AST ALT Lactate Dehydrogenase Total Creatine Kinase Troponin T C-Reactive Protein Total Protein Albumin Triglycerides HDL Cholesterol Arterial Blood Glucose Arterial Blood Ionized Calcium Urine WBC (Auto) Vancomycin Trough Salicylates Acetaminophen Coronavirus (PCR) 07/23/21 07/24/21 07/24/21 23:28 03:06 05:01 WBC RBC Hgb Hct RDW Lymph % (Auto) Lymph # (Auto) Seg Neutrophils % Seg Neuts % (Manual) Lymphocytes % (Manual) Nucleated RBC % Seg Neutrophils # Seg Neutrophils # Man Lymphocytes # (Manual) Monocytes # (Manual) PT INR D-Dimer ABG pH POC ABG pCO2 POC ABG pO2 51.1 L ABG pO2 ABG O2 Saturation ABG Base Excess ABG Hemoglobin ABG Oxyhemoglobin 85.0 L ABG Sodium 135.5 L ABG Chloride ABG Glucose 131 H Oxyhemoglobin Carboxyhemoglobin 0.4 L Sodium Potassium Chloride Carbon Dioxide BUN 29 H Creatinine Glucose 132 H POC Glucose 142 H Calcium 7.8 L Magnesium Ferritin AST ALT Lactate Dehydrogenase Total Creatine Kinase Troponin T C-Reactive Protein Total Protein Albumin Triglycerides HDL Cholesterol Arterial Blood Glucose 131 H Arterial Blood Ionized Calcium 4.5 L Urine WBC (Auto) Vancomycin Trough Salicylates Acetaminophen Coronavirus (PCR) 07/24/21 07/24/21 07/24/21 05:06 11:38 17:26 WBC RBC Hgb Hct RDW Lymph % (Auto) Lymph # (Auto) Seg Neutrophils % Seg Neuts % (Manual) Lymphocytes % (Manual) Nucleated RBC % Seg Neutrophils # Seg Neutrophils # Man Lymphocytes # (Manual) Monocytes # (Manual) PT INR D-Dimer ABG pH POC ABG pCO2 POC ABG pO2 ABG pO2 ABG O2 Saturation ABG Base Excess ABG Hemoglobin ABG Oxyhemoglobin ABG Sodium ABG Chloride ABG Glucose Oxyhemoglobin Carboxyhemoglobin Sodium Potassium Chloride Carbon Dioxide BUN Creatinine Glucose POC Glucose 125 H 215 H 173 H Calcium Magnesium Ferritin AST ALT Lactate Dehydrogenase Total Creatine Kinase Troponin T C-Reactive Protein Total Protein Albumin Triglycerides HDL Cholesterol Arterial Blood Glucose Arterial Blood Ionized Calcium Urine WBC (Auto) Vancomycin Trough Salicylates Acetaminophen Coronavirus (PCR) 07/24/21 07/25/21 07/25/21 23:23 03:33 04:28 WBC RBC Hgb Hct RDW Lymph % (Auto) Lymph # (Auto) Seg Neutrophils % Seg Neuts % (Manual) Lymphocytes % (Manual) Nucleated RBC % Seg Neutrophils # Seg Neutrophils # Man Lymphocytes # (Manual) Monocytes # (Manual) PT INR D-Dimer ABG pH POC ABG pCO2 POC ABG pO2 ABG pO2 ABG O2 Saturation ABG Base Excess ABG Hemoglobin ABG Oxyhemoglobin ABG Sodium 135.6 L ABG Chloride ABG Glucose 174 H Oxyhemoglobin Carboxyhemoglobin 0.1 L Sodium Potassium 5.1 H Chloride 107.7 H Carbon Dioxide BUN 29 H Creatinine Glucose 164 H POC Glucose 133 H Calcium 7.3 L Magnesium Ferritin AST ALT Lactate Dehydrogenase Total Creatine Kinase Troponin T C-Reactive Protein Total Protein Albumin Triglycerides HDL Cholesterol Arterial Blood Glucose 174 H Arterial Blood Ionized Calcium Urine WBC (Auto) Vancomycin Trough Salicylates Acetaminophen Coronavirus (PCR) 07/25/21 07/25/21 07/25/21 04:28 04:28 05:17 WBC 14.9 H RBC Hgb Hct RDW 15.6 H Lymph % (Auto) Lymph # (Auto) Seg Neutrophils % Seg Neuts % (Manual) 92.0 H Lymphocytes % (Manual) 2.0 L Nucleated RBC % Seg Neutrophils # Seg Neutrophils # Man 13.7 H Lymphocytes # (Manual) 0.3 L Monocytes # (Manual) PT INR D-Dimer ABG pH POC ABG pCO2 POC ABG pO2 ABG pO2 ABG O2 Saturation ABG Base Excess ABG Hemoglobin ABG Oxyhemoglobin ABG Sodium ABG Chloride ABG Glucose Oxyhemoglobin Carboxyhemoglobin Sodium Potassium Chloride Carbon Dioxide BUN Creatinine Glucose POC Glucose 173 H Calcium Magnesium Ferritin AST ALT Lactate Dehydrogenase Total Creatine Kinase Troponin T C-Reactive Protein Total Protein Albumin Triglycerides HDL Cholesterol Arterial Blood Glucose Arterial Blood Ionized Calcium Urine WBC (Auto) Vancomycin Trough 22.9 H Salicylates Acetaminophen Coronavirus (PCR) 07/25/21 07/25/21 07/25/21 11:29 17:00 23:46 WBC RBC Hgb Hct RDW Lymph % (Auto) Lymph # (Auto) Seg Neutrophils % Seg Neuts % (Manual) Lymphocytes % (Manual) Nucleated RBC % Seg Neutrophils # Seg Neutrophils # Man Lymphocytes # (Manual) Monocytes # (Manual) PT INR D-Dimer ABG pH POC ABG pCO2 POC ABG pO2 ABG pO2 ABG O2 Saturation ABG Base Excess ABG Hemoglobin ABG Oxyhemoglobin ABG Sodium ABG Chloride ABG Glucose Oxyhemoglobin Carboxyhemoglobin Sodium Potassium Chloride Carbon Dioxide BUN Creatinine Glucose POC Glucose 191 H 184 H 192 H Calcium Magnesium Ferritin AST ALT Lactate Dehydrogenase Total Creatine Kinase Troponin T C-Reactive Protein Total Protein Albumin Triglycerides HDL Cholesterol Arterial Blood Glucose Arterial Blood Ionized Calcium Urine WBC (Auto) Vancomycin Trough Salicylates Acetaminophen Coronavirus (PCR) 07/26/21 07/26/21 07/26/21 03:17 05:33 06:07 WBC 18.0 H RBC Hgb Hct RDW 15.6 H Lymph % (Auto) Lymph # (Auto) Seg Neutrophils % Seg Neuts % (Manual) 87.0 H Lymphocytes % (Manual) 5.0 L Nucleated RBC % Seg Neutrophils # Seg Neutrophils # Man 15.7 H Lymphocytes # (Manual) 0.9 L Monocytes # (Manual) 1.1 H PT INR D-Dimer ABG pH POC ABG pCO2 POC ABG pO2 73.7 L ABG pO2 ABG O2 Saturation ABG Base Excess ABG Hemoglobin 11.8 L ABG Oxyhemoglobin 93.6 L ABG Sodium ABG Chloride ABG Glucose 183 H Oxyhemoglobin Carboxyhemoglobin 0.2 L Sodium Potassium Chloride Carbon Dioxide BUN Creatinine Glucose POC Glucose 172 H Calcium Magnesium Ferritin AST ALT Lactate Dehydrogenase Total Creatine Kinase Troponin T C-Reactive Protein Total Protein Albumin Triglycerides HDL Cholesterol Arterial Blood Glucose 183 H Arterial Blood Ionized Calcium Urine WBC (Auto) Vancomycin Trough Salicylates Acetaminophen Coronavirus (PCR) 07/26/21 07/26/21 07/26/21 06:07 11:46 13:53 WBC RBC Hgb Hct RDW Lymph % (Auto) Lymph # (Auto) Seg Neutrophils % Seg Neuts % (Manual) Lymphocytes % (Manual) Nucleated RBC % Seg Neutrophils # Seg Neutrophils # Man Lymphocytes # (Manual) Monocytes # (Manual) PT INR D-Dimer 6992.45 H ABG pH POC ABG pCO2 POC ABG pO2 ABG pO2 ABG O2 Saturation ABG Base Excess ABG Hemoglobin ABG Oxyhemoglobin ABG Sodium ABG Chloride ABG Glucose Oxyhemoglobin Carboxyhemoglobin Sodium Potassium 5.4 H Chloride Carbon Dioxide BUN 33 H Creatinine Glucose 155 H POC Glucose 142 H Calcium 8.3 L Magnesium Ferritin AST ALT Lactate Dehydrogenase Total Creatine Kinase Troponin T C-Reactive Protein Total Protein Albumin Triglycerides HDL Cholesterol Arterial Blood Glucose Arterial Blood Ionized Calcium Urine WBC (Auto) Vancomycin Trough Salicylates Acetaminophen Coronavirus (PCR) 07/26/21 07/26/21 07/26/21 13:53 14:16 17:29 WBC RBC Hgb Hct RDW Lymph % (Auto) Lymph # (Auto) Seg Neutrophils % Seg Neuts % (Manual) Lymphocytes % (Manual) Nucleated RBC % Seg Neutrophils # Seg Neutrophils # Man Lymphocytes # (Manual) Monocytes # (Manual) PT INR D-Dimer ABG pH POC ABG pCO2 POC ABG pO2 ABG pO2 ABG O2 Saturation ABG Base Excess ABG Hemoglobin ABG Oxyhemoglobin ABG Sodium ABG Chloride ABG Glucose Oxyhemoglobin Carboxyhemoglobin Sodium Potassium Chloride Carbon Dioxide BUN Creatinine Glucose 200 H POC Glucose 185 H Calcium Magnesium Ferritin 348.4 H AST ALT Lactate Dehydrogenase 515 H Total Creatine Kinase Troponin T C-Reactive Protein Total Protein Albumin Triglycerides HDL Cholesterol Arterial Blood Glucose Arterial Blood Ionized Calcium Urine WBC (Auto) Vancomycin Trough Salicylates Acetaminophen Coronavirus (PCR) 07/26/21 07/27/21 07/27/21 23:30 04:00 04:48 WBC 16.5 H RBC Hgb Hct RDW Lymph % (Auto) Lymph # (Auto) Seg Neutrophils % Seg Neuts % (Manual) 92.0 H Lymphocytes % (Manual) 3.0 L Nucleated RBC % 1.0 H Seg Neutrophils # Seg Neutrophils # Man 15.2 H Lymphocytes # (Manual) 0.5 L Monocytes # (Manual) PT INR D-Dimer ABG pH 7.481 H POC ABG pCO2 POC ABG pO2 70.4 L ABG pO2 ABG O2 Saturation ABG Base Excess ABG Hemoglobin 11.6 L ABG Oxyhemoglobin ABG Sodium 131.9 L ABG Chloride ABG Glucose 207 H Oxyhemoglobin Carboxyhemoglobin Sodium Potassium Chloride Carbon Dioxide BUN Creatinine Glucose POC Glucose 186 H Calcium Magnesium Ferritin AST ALT Lactate Dehydrogenase Total Creatine Kinase Troponin T C-Reactive Protein Total Protein Albumin Triglycerides HDL Cholesterol Arterial Blood Glucose 207 H Arterial Blood Ionized Calcium Urine WBC (Auto) Vancomycin Trough Salicylates Acetaminophen Coronavirus (PCR) 07/27/21 07/27/21 07/27/21 04:48 05:04 11:36 WBC RBC Hgb Hct RDW Lymph % (Auto) Lymph # (Auto) Seg Neutrophils % Seg Neuts % (Manual) Lymphocytes % (Manual) Nucleated RBC % Seg Neutrophils # Seg Neutrophils # Man Lymphocytes # (Manual) Monocytes # (Manual) PT INR D-Dimer ABG pH POC ABG pCO2 POC ABG pO2 ABG pO2 ABG O2 Saturation ABG Base Excess ABG Hemoglobin ABG Oxyhemoglobin ABG Sodium ABG Chloride ABG Glucose Oxyhemoglobin Carboxyhemoglobin Sodium Potassium Chloride Carbon Dioxide BUN 35 H Creatinine Glucose 216 H POC Glucose 201 H 142 H Calcium Magnesium Ferritin AST ALT Lactate Dehydrogenase Total Creatine Kinase Troponin T C-Reactive Protein Total Protein Albumin Triglycerides HDL Cholesterol Arterial Blood Glucose Arterial Blood Ionized Calcium Urine WBC (Auto) Vancomycin Trough Salicylates Acetaminophen Coronavirus (PCR) 07/27/21 07/27/21 07/28/21 18:14 22:03 04:00 WBC RBC Hgb Hct RDW Lymph % (Auto) Lymph # (Auto) Seg Neutrophils % Seg Neuts % (Manual) Lymphocytes % (Manual) Nucleated RBC % Seg Neutrophils # Seg Neutrophils # Man Lymphocytes # (Manual) Monocytes # (Manual) PT INR D-Dimer ABG pH 7.491 H POC ABG pCO2 POC ABG pO2 109.2 H ABG pO2 ABG O2 Saturation ABG Base Excess ABG Hemoglobin ABG Oxyhemoglobin ABG Sodium 133.9 L ABG Chloride ABG Glucose 163 H Oxyhemoglobin Carboxyhemoglobin Sodium Potassium Chloride Carbon Dioxide BUN Creatinine Glucose POC Glucose 166 H 149 H Calcium Magnesium Ferritin AST ALT Lactate Dehydrogenase Total Creatine Kinase Troponin T C-Reactive Protein Total Protein Albumin Triglycerides HDL Cholesterol Arterial Blood Glucose 163 H Arterial Blood Ionized Calcium Urine WBC (Auto) Vancomycin Trough Salicylates Acetaminophen Coronavirus (PCR) 07/28/21 07/28/21 07/28/21 04:10 04:10 04:10 WBC RBC Hgb Hct RDW Lymph % (Auto) Lymph # (Auto) Seg Neutrophils % Seg Neuts % (Manual) Lymphocytes % (Manual) Nucleated RBC % Seg Neutrophils # Seg Neutrophils # Man Lymphocytes # (Manual) Monocytes # (Manual) PT INR D-Dimer 5318.85 H ABG pH POC ABG pCO2 POC ABG pO2 ABG pO2 ABG O2 Saturation ABG Base Excess ABG Hemoglobin ABG Oxyhemoglobin ABG Sodium ABG Chloride ABG Glucose Oxyhemoglobin Carboxyhemoglobin Sodium Potassium Chloride Carbon Dioxide 31 H BUN 35 H Creatinine Glucose 187 H POC Glucose Calcium Magnesium Ferritin 324.6 H AST ALT Lactate Dehydrogenase 414 H Total Creatine Kinase Troponin T C-Reactive Protein Total Protein Albumin Triglycerides HDL Cholesterol Arterial Blood Glucose Arterial Blood Ionized Calcium Urine WBC (Auto) Vancomycin Trough Salicylates Acetaminophen Coronavirus (PCR) 07/28/21 07/28/21 07/28/21 04:10 05:25 12:10 WBC 13.7 H RBC Hgb Hct RDW Lymph % (Auto) Lymph # (Auto) Seg Neutrophils % Seg Neuts % (Manual) Lymphocytes % (Manual) Nucleated RBC % Seg Neutrophils # Seg Neutrophils # Man Lymphocytes # (Manual) Monocytes # (Manual) PT INR D-Dimer ABG pH POC ABG pCO2 POC ABG pO2 ABG pO2 ABG O2 Saturation ABG Base Excess ABG Hemoglobin ABG Oxyhemoglobin ABG Sodium ABG Chloride ABG Glucose Oxyhemoglobin Carboxyhemoglobin Sodium Potassium Chloride Carbon Dioxide BUN Creatinine Glucose POC Glucose 152 H 162 H Calcium Magnesium Ferritin AST ALT Lactate Dehydrogenase Total Creatine Kinase Troponin T C-Reactive Protein Total Protein Albumin Triglycerides HDL Cholesterol Arterial Blood Glucose Arterial Blood Ionized Calcium Urine WBC (Auto) Vancomycin Trough Salicylates Acetaminophen Coronavirus (PCR) 07/28/21 07/28/21 07/29/21 17:44 21:58 04:00 WBC RBC Hgb Hct RDW Lymph % (Auto) Lymph # (Auto) Seg Neutrophils % Seg Neuts % (Manual) Lymphocytes % (Manual) Nucleated RBC % Seg Neutrophils # Seg Neutrophils # Man Lymphocytes # (Manual) Monocytes # (Manual) PT INR D-Dimer ABG pH 7.510 H POC ABG pCO2 POC ABG pO2 113.0 H ABG pO2 ABG O2 Saturation ABG Base Excess ABG Hemoglobin 11.1 L ABG Oxyhemoglobin ABG Sodium 135.0 L ABG Chloride ABG Glucose 162 H Oxyhemoglobin Carboxyhemoglobin 0.3 L Sodium Potassium Chloride Carbon Dioxide BUN Creatinine Glucose POC Glucose 152 H 139 H Calcium Magnesium Ferritin AST ALT Lactate Dehydrogenase Total Creatine Kinase Troponin T C-Reactive Protein Total Protein Albumin Triglycerides HDL Cholesterol Arterial Blood Glucose 162 H Arterial Blood Ionized Calcium 4.4 L Urine WBC (Auto) Vancomycin Trough Salicylates Acetaminophen Coronavirus (PCR) 07/29/21 07/29/21 07/29/21 04:35 04:35 05:47 WBC 12.0 H RBC Hgb Hct RDW Lymph % (Auto) Lymph # (Auto) Seg Neutrophils % Seg Neuts % (Manual) Lymphocytes % (Manual) Nucleated RBC % Seg Neutrophils # Seg Neutrophils # Man Lymphocytes # (Manual) Monocytes # (Manual) PT INR D-Dimer ABG pH POC ABG pCO2 POC ABG pO2 ABG pO2 ABG O2 Saturation ABG Base Excess ABG Hemoglobin ABG Oxyhemoglobin ABG Sodium ABG Chloride ABG Glucose Oxyhemoglobin Carboxyhemoglobin Sodium Potassium Chloride Carbon Dioxide BUN 34 H Creatinine Glucose 170 H POC Glucose 153 H Calcium Magnesium Ferritin AST ALT Lactate Dehydrogenase Total Creatine Kinase Troponin T C-Reactive Protein Total Protein Albumin Triglycerides HDL Cholesterol Arterial Blood Glucose Arterial Blood Ionized Calcium Urine WBC (Auto) Vancomycin Trough Salicylates Acetaminophen Coronavirus (PCR) 07/29/21 07/29/21 07/29/21 11:25 16:29 23:39 WBC RBC Hgb Hct RDW Lymph % (Auto) Lymph # (Auto) Seg Neutrophils % Seg Neuts % (Manual) Lymphocytes % (Manual) Nucleated RBC % Seg Neutrophils # Seg Neutrophils # Man Lymphocytes # (Manual) Monocytes # (Manual) PT INR D-Dimer ABG pH POC ABG pCO2 POC ABG pO2 ABG pO2 ABG O2 Saturation ABG Base Excess ABG Hemoglobin ABG Oxyhemoglobin ABG Sodium ABG Chloride ABG Glucose Oxyhemoglobin Carboxyhemoglobin Sodium Potassium Chloride Carbon Dioxide BUN Creatinine Glucose POC Glucose 142 H 167 H 141 H Calcium Magnesium Ferritin AST ALT Lactate Dehydrogenase Total Creatine Kinase Troponin T C-Reactive Protein Total Protein Albumin Triglycerides HDL Cholesterol Arterial Blood Glucose Arterial Blood Ionized Calcium Urine WBC (Auto) Vancomycin Trough Salicylates Acetaminophen Coronavirus (PCR) 07/30/21 07/30/21 07/30/21 05:00 05:00 05:00 WBC RBC Hgb Hct RDW Lymph % (Auto) Lymph # (Auto) Seg Neutrophils % Seg Neuts % (Manual) Lymphocytes % (Manual) Nucleated RBC % Seg Neutrophils # Seg Neutrophils # Man Lymphocytes # (Manual) Monocytes # (Manual) PT INR D-Dimer 1818.72 H ABG pH POC ABG pCO2 POC ABG pO2 ABG pO2 ABG O2 Saturation ABG Base Excess ABG Hemoglobin ABG Oxyhemoglobin ABG Sodium ABG Chloride ABG Glucose Oxyhemoglobin Carboxyhemoglobin Sodium Potassium Chloride Carbon Dioxide BUN 34 H Creatinine Glucose 184 H POC Glucose Calcium Magnesium Ferritin 242.1 H AST ALT Lactate Dehydrogenase 304 H Total Creatine Kinase Troponin T C-Reactive Protein Total Protein Albumin Triglycerides HDL Cholesterol Arterial Blood Glucose Arterial Blood Ionized Calcium Urine WBC (Auto) Vancomycin Trough Salicylates Acetaminophen Coronavirus (PCR) 07/30/21 07/30/21 07/30/21 05:00 06:08 11:41 WBC RBC 3.45 L Hgb 10.0 L Hct 29.9 L RDW Lymph % (Auto) Lymph # (Auto) Seg Neutrophils % Seg Neuts % (Manual) Lymphocytes % (Manual) Nucleated RBC % Seg Neutrophils # Seg Neutrophils # Man Lymphocytes # (Manual) Monocytes # (Manual) PT INR D-Dimer ABG pH POC ABG pCO2 POC ABG pO2 ABG pO2 ABG O2 Saturation ABG Base Excess ABG Hemoglobin ABG Oxyhemoglobin ABG Sodium ABG Chloride ABG Glucose Oxyhemoglobin Carboxyhemoglobin Sodium Potassium Chloride Carbon Dioxide BUN Creatinine Glucose POC Glucose 171 H 182 H Calcium Magnesium Ferritin AST ALT Lactate Dehydrogenase Total Creatine Kinase Troponin T C-Reactive Protein Total Protein Albumin Triglycerides HDL Cholesterol Arterial Blood Glucose Arterial Blood Ionized Calcium Urine WBC (Auto) Vancomycin Trough Salicylates Acetaminophen Coronavirus (PCR) 07/30/21 07/30/21 07/30/21 17:28 22:22 23:43 WBC RBC Hgb Hct RDW Lymph % (Auto) Lymph # (Auto) Seg Neutrophils % Seg Neuts % (Manual) Lymphocytes % (Manual) Nucleated RBC % Seg Neutrophils # Seg Neutrophils # Man Lymphocytes # (Manual) Monocytes # (Manual) PT INR D-Dimer ABG pH POC ABG pCO2 POC ABG pO2 ABG pO2 ABG O2 Saturation ABG Base Excess ABG Hemoglobin ABG Oxyhemoglobin ABG Sodium ABG Chloride ABG Glucose Oxyhemoglobin Carboxyhemoglobin Sodium Potassium Chloride Carbon Dioxide BUN Creatinine Glucose POC Glucose 176 H 150 H 161 H Calcium Magnesium Ferritin AST ALT Lactate Dehydrogenase Total Creatine Kinase Troponin T C-Reactive Protein Total Protein Albumin Triglycerides HDL Cholesterol Arterial Blood Glucose Arterial Blood Ionized Calcium Urine WBC (Auto) Vancomycin Trough Salicylates Acetaminophen Coronavirus (PCR) 07/31/21 07/31/21 07/31/21 04:00 05:25 05:50 WBC 11.5 H RBC Hgb Hct RDW Lymph % (Auto) Lymph # (Auto) Seg Neutrophils % Seg Neuts % (Manual) Lymphocytes % (Manual) Nucleated RBC % Seg Neutrophils # Seg Neutrophils # Man Lymphocytes # (Manual) Monocytes # (Manual) PT INR D-Dimer ABG pH POC ABG pCO2 POC ABG pO2 ABG pO2 ABG O2 Saturation ABG Base Excess ABG Hemoglobin 11.5 L ABG Oxyhemoglobin ABG Sodium ABG Chloride ABG Glucose 143 H Oxyhemoglobin Carboxyhemoglobin Sodium Potassium Chloride Carbon Dioxide BUN Creatinine Glucose POC Glucose 150 H Calcium Magnesium Ferritin AST ALT Lactate Dehydrogenase Total Creatine Kinase Troponin T C-Reactive Protein Total Protein Albumin Triglycerides HDL Cholesterol Arterial Blood Glucose 143 H Arterial Blood Ionized Calcium Urine WBC (Auto) Vancomycin Trough Salicylates Acetaminophen Coronavirus (PCR) 07/31/21 07/31/21 07/31/21 05:50 11:36 17:30 WBC RBC Hgb Hct RDW Lymph % (Auto) Lymph # (Auto) Seg Neutrophils % Seg Neuts % (Manual) Lymphocytes % (Manual) Nucleated RBC % Seg Neutrophils # Seg Neutrophils # Man Lymphocytes # (Manual) Monocytes # (Manual) PT INR D-Dimer ABG pH POC ABG pCO2 POC ABG pO2 ABG pO2 ABG O2 Saturation ABG Base Excess ABG Hemoglobin ABG Oxyhemoglobin ABG Sodium ABG Chloride ABG Glucose Oxyhemoglobin Carboxyhemoglobin Sodium Potassium Chloride Carbon Dioxide BUN 32 H Creatinine Glucose 158 H POC Glucose 179 H 115 H Calcium Magnesium Ferritin AST ALT Lactate Dehydrogenase Total Creatine Kinase Troponin T C-Reactive Protein Total Protein Albumin Triglycerides HDL Cholesterol Arterial Blood Glucose Arterial Blood Ionized Calcium Urine WBC (Auto) Vancomycin Trough Salicylates Acetaminophen Coronavirus (PCR) 07/31/21 08/01/21 08/01/21 22:36 04:00 04:58 WBC RBC Hgb Hct RDW Lymph % (Auto) Lymph # (Auto) Seg Neutrophils % Seg Neuts % (Manual) Lymphocytes % (Manual) Nucleated RBC % Seg Neutrophils # Seg Neutrophils # Man Lymphocytes # (Manual) Monocytes # (Manual) PT INR D-Dimer ABG pH 7.477 H POC ABG pCO2 POC ABG pO2 ABG pO2 ABG O2 Saturation ABG Base Excess ABG Hemoglobin 11.4 L ABG Oxyhemoglobin ABG Sodium 134.4 L ABG Chloride ABG Glucose 173 H Oxyhemoglobin Carboxyhemoglobin 0.3 L Sodium Potassium Chloride Carbon Dioxide BUN Creatinine Glucose POC Glucose 150 H 153 H Calcium Magnesium Ferritin AST ALT Lactate Dehydrogenase Total Creatine Kinase Troponin T C-Reactive Protein Total Protein Albumin Triglycerides HDL Cholesterol Arterial Blood Glucose 173 H Arterial Blood Ionized Calcium Urine WBC (Auto) Vancomycin Trough Salicylates Acetaminophen Coronavirus (PCR) 08/01/21 08/01/21 08/01/21 06:00 06:00 06:00 WBC RBC Hgb Hct RDW Lymph % (Auto) Lymph # (Auto) Seg Neutrophils % Seg Neuts % (Manual) Lymphocytes % (Manual) Nucleated RBC % Seg Neutrophils # Seg Neutrophils # Man Lymphocytes # (Manual) Monocytes # (Manual) PT INR D-Dimer 1503.43 H ABG pH POC ABG pCO2 POC ABG pO2 ABG pO2 ABG O2 Saturation ABG Base Excess ABG Hemoglobin ABG Oxyhemoglobin ABG Sodium ABG Chloride ABG Glucose Oxyhemoglobin Carboxyhemoglobin Sodium 136 L Potassium Chloride Carbon Dioxide 31 H BUN 28 H Creatinine 0.5 L Glucose 154 H POC Glucose Calcium Magnesium Ferritin 244.0 H AST ALT Lactate Dehydrogenase 369 H Total Creatine Kinase Troponin T C-Reactive Protein Total Protein Albumin Triglycerides HDL Cholesterol Arterial Blood Glucose Arterial Blood Ionized Calcium Urine WBC (Auto) Vancomycin Trough Salicylates Acetaminophen Coronavirus (PCR) 08/01/21 08/01/21 08/01/21 12:32 18:30 23:23 WBC RBC Hgb Hct RDW Lymph % (Auto) Lymph # (Auto) Seg Neutrophils % Seg Neuts % (Manual) Lymphocytes % (Manual) Nucleated RBC % Seg Neutrophils # Seg Neutrophils # Man Lymphocytes # (Manual) Monocytes # (Manual) PT INR D-Dimer ABG pH POC ABG pCO2 POC ABG pO2 ABG pO2 ABG O2 Saturation ABG Base Excess ABG Hemoglobin ABG Oxyhemoglobin ABG Sodium ABG Chloride ABG Glucose Oxyhemoglobin Carboxyhemoglobin Sodium Potassium Chloride Carbon Dioxide BUN Creatinine Glucose POC Glucose 144 H 127 H 123 H Calcium Magnesium Ferritin AST ALT Lactate Dehydrogenase Total Creatine Kinase Troponin T C-Reactive Protein Total Protein Albumin Triglycerides HDL Cholesterol Arterial Blood Glucose Arterial Blood Ionized Calcium Urine WBC (Auto) Vancomycin Trough Salicylates Acetaminophen Coronavirus (PCR) 08/02/21 08/02/21 08/02/21 05:30 05:30 11:18 WBC 11.2 H RBC Hgb Hct RDW Lymph % (Auto) Lymph # (Auto) Seg Neutrophils % Seg Neuts % (Manual) Lymphocytes % (Manual) Nucleated RBC % Seg Neutrophils # Seg Neutrophils # Man Lymphocytes # (Manual) Monocytes # (Manual) PT INR D-Dimer ABG pH POC ABG pCO2 POC ABG pO2 ABG pO2 ABG O2 Saturation ABG Base Excess ABG Hemoglobin ABG Oxyhemoglobin ABG Sodium ABG Chloride ABG Glucose Oxyhemoglobin Carboxyhemoglobin Sodium Potassium Chloride Carbon Dioxide 33 H BUN 23 H Creatinine 0.5 L Glucose 108 H POC Glucose 131 H Calcium Magnesium Ferritin AST ALT Lactate Dehydrogenase Total Creatine Kinase Troponin T C-Reactive Protein Total Protein Albumin Triglycerides HDL Cholesterol Arterial Blood Glucose Arterial Blood Ionized Calcium Urine WBC (Auto) Vancomycin Trough Salicylates Acetaminophen Coronavirus (PCR) 08/02/21 08/03/21 08/03/21 17:22 05:33 05:33 WBC RBC Hgb Hct RDW Lymph % (Auto) Lymph # (Auto) Seg Neutrophils % Seg Neuts % (Manual) Lymphocytes % (Manual) Nucleated RBC % Seg Neutrophils # Seg Neutrophils # Man Lymphocytes # (Manual) Monocytes # (Manual) PT 15.4 H INR 1.17 H D-Dimer 1383.44 H ABG pH POC ABG pCO2 POC ABG pO2 ABG pO2 ABG O2 Saturation ABG Base Excess ABG Hemoglobin ABG Oxyhemoglobin ABG Sodium ABG Chloride ABG Glucose Oxyhemoglobin Carboxyhemoglobin Sodium Potassium Chloride Carbon Dioxide BUN Creatinine Glucose POC Glucose 127 H Calcium Magnesium Ferritin AST ALT Lactate Dehydrogenase 427 H Total Creatine Kinase Troponin T C-Reactive Protein Total Protein Albumin Triglycerides HDL Cholesterol Arterial Blood Glucose Arterial Blood Ionized Calcium Urine WBC (Auto) Vancomycin Trough Salicylates Acetaminophen Coronavirus (PCR) 08/03/21 08/03/21 08/03/21 05:33 05:33 05:33 WBC RBC Hgb Hct RDW 15.4 H Lymph % (Auto) Lymph # (Auto) Seg Neutrophils % Seg Neuts % (Manual) Lymphocytes % (Manual) Nucleated RBC % Seg Neutrophils # Seg Neutrophils # Man Lymphocytes # (Manual) Monocytes # (Manual) PT INR D-Dimer ABG pH POC ABG pCO2 POC ABG pO2 ABG pO2 ABG O2 Saturation ABG Base Excess ABG Hemoglobin ABG Oxyhemoglobin ABG Sodium ABG Chloride ABG Glucose Oxyhemoglobin Carboxyhemoglobin Sodium 136 L Potassium Chloride Carbon Dioxide BUN 28 H Creatinine Glucose 114 H POC Glucose Calcium Magnesium Ferritin 263.2 H AST ALT Lactate Dehydrogenase Total Creatine Kinase Troponin T C-Reactive Protein Total Protein Albumin Triglycerides HDL Cholesterol Arterial Blood Glucose Arterial Blood Ionized Calcium Urine WBC (Auto) Vancomycin Trough Salicylates Acetaminophen Coronavirus (PCR) 08/03/21 08/03/21 08/03/21 05:59 07:57 12:24 WBC RBC Hgb Hct RDW Lymph % (Auto) Lymph # (Auto) Seg Neutrophils % Seg Neuts % (Manual) Lymphocytes % (Manual) Nucleated RBC % Seg Neutrophils # Seg Neutrophils # Man Lymphocytes # (Manual) Monocytes # (Manual) PT INR D-Dimer ABG pH POC ABG pCO2 POC ABG pO2 ABG pO2 ABG O2 Saturation ABG Base Excess ABG Hemoglobin ABG Oxyhemoglobin ABG Sodium ABG Chloride ABG Glucose Oxyhemoglobin Carboxyhemoglobin Sodium Potassium Chloride Carbon Dioxide BUN Creatinine Glucose POC Glucose 110 H 124 H 125 H Calcium Magnesium Ferritin AST ALT Lactate Dehydrogenase Total Creatine Kinase Troponin T C-Reactive Protein Total Protein Albumin Triglycerides HDL Cholesterol Arterial Blood Glucose Arterial Blood Ionized Calcium Urine WBC (Auto) Vancomycin Trough Salicylates Acetaminophen Coronavirus (PCR) 08/03/21 08/03/21 08/04/21 16:00 23:22 07:11 WBC RBC Hgb Hct RDW Lymph % (Auto) Lymph # (Auto) Seg Neutrophils % Seg Neuts % (Manual) Lymphocytes % (Manual) Nucleated RBC % Seg Neutrophils # Seg Neutrophils # Man Lymphocytes # (Manual) Monocytes # (Manual) PT INR D-Dimer ABG pH POC ABG pCO2 POC ABG pO2 ABG pO2 ABG O2 Saturation ABG Base Excess ABG Hemoglobin ABG Oxyhemoglobin ABG Sodium ABG Chloride ABG Glucose Oxyhemoglobin Carboxyhemoglobin Sodium Potassium Chloride Carbon Dioxide BUN 29 H Creatinine Glucose 105 H POC Glucose 123 H 114 H Calcium Magnesium Ferritin AST 41 H ALT 79 H Lactate Dehydrogenase Total Creatine Kinase Troponin T C-Reactive Protein Total Protein Albumin 3.7 L Triglycerides HDL Cholesterol Arterial Blood Glucose Arterial Blood Ionized Calcium Urine WBC (Auto) Vancomycin Trough Salicylates Acetaminophen Coronavirus (PCR) 08/04/21 08/05/21 08/05/21 11:41 05:33 05:33 WBC RBC 3.55 L Hgb Hct RDW 18.1 H Lymph % (Auto) Lymph # (Auto) Seg Neutrophils % Seg Neuts % (Manual) Lymphocytes % (Manual) Nucleated RBC % Seg Neutrophils # Seg Neutrophils # Man Lymphocytes # (Manual) Monocytes # (Manual) PT INR D-Dimer ABG pH POC ABG pCO2 POC ABG pO2 ABG pO2 ABG O2 Saturation ABG Base Excess ABG Hemoglobin ABG Oxyhemoglobin ABG Sodium ABG Chloride ABG Glucose Oxyhemoglobin Carboxyhemoglobin Sodium Potassium Chloride Carbon Dioxide 20 L BUN 26 H Creatinine Glucose 103 H POC Glucose 106 H Calcium Magnesium Ferritin AST ALT 97 H Lactate Dehydrogenase Total Creatine Kinase Troponin T C-Reactive Protein Total Protein 6.1 L Albumin 3.7 L Triglycerides HDL Cholesterol Arterial Blood Glucose Arterial Blood Ionized Calcium Urine WBC (Auto) Vancomycin Trough Salicylates Acetaminophen Coronavirus (PCR)
--- NOTE | 2021-08-05 12:05 | Progress Note ---
Assessment and Plan Assessment and plan: Patient is a 55-year-old female history of obesity diabetes, anxiety, hypertension who was admitted with severe COVID-19 pneumonia also found to have multiple subsegmental PEs, ION and sepsis. #Acute metabolic encephalopathy -Improved, patient now talking appropriately -Continue delirium protocol -ST consulted, patient refusing to cooperate will utilize family members to help patient participate #Severe COVID-19 pneumonia -Extubated 08/01 -Status post remdesivir & Acemtra -Methylprednisone weaning per [facility] (currently 20mg q8hr); will convert to prednisone when patient tolerates PO -will continue supplemental O2, will wean as tolerated #Tricuspid valve thrombus -Continue therapeutic Lovenox -Cardiology following -Repeat echo in 3 months #Multiple subsegmental pulmonary embolism, LLE DVT -Lovenox, SCDs to lower extremity -Continue to monitor SPO2 #History of type 2 diabetes -POC glucose within goal (140-180) -Continue as needed SSI Total Time Spent with Patient (Minutes): 30 minutes - Patient Problems (1) Acute encephalopathy Current Visit: Yes Status: Acute (2) Multiple pulmonary emboli Current Visit: Yes Status: Acute (3) Right ventricular thrombus Current Visit: Yes Status: Acute History Interval history: Patient not interactive today. Denies pain or discomfort. Resting comfortably with O2. Hospitalist Physical - Physical exam Narrative exam: GENERAL: Well-developed well-nourished. Lying in bed. CHEST/LUNGS: CTAB on 2L NC HEART/CARDIOVASCULAR: RRR. No murmur, rubs or gallops appreciated. ABDOMEN: +BS. NT/ND. NEURO: No focal motor deficit. Follows all commands. EXTREMITIES: No cyanosis, cubbing or edema. - Constitutional Vitals: Temp Pulse Resp BP Pulse Ox 98.8 F 74 20 120/68 98 08/05/21 05:50 08/05/21 05:50 08/05/21 05:50 08/05/21 07:26 08/05/21 11:47 General appearance: Present: no acute distress, other HEART Score - HEART Score Troponin: Troponin T 0.106 ng/mL (0.00-0.029) H* 07/18/21 16:00 Results - Labs CBC & Chem 7: 08/05/21 05:33 08/05/21 05:33 Labs: Laboratory Last Values WBC 6.1 K/mm3 (4.5-11.0) 08/05/21 05:33 RBC 3.55 M/mm3 (3.65-5.03) L 08/05/21 05:33 Hgb 10.4 gm/dl (10.1-14.3) 08/05/21 05:33 Hct 31.3 % (30.3-42.9) 08/05/21 05:33 MCV 88 fl (79-97) 08/05/21 05:33 MCH 29 pg (28-32) 08/05/21 05:33 MCHC 33 % (30-34) 08/05/21 05:33 RDW 18.1 % (13.2-15.2) H 08/05/21 05:33 Plt Count 219 K/mm3 (140-440) 08/05/21 05:33 Lymph % (Auto) 10.7 % (13.4-35.0) L 07/19/21 04:59 Person % (Auto) 4.8 % (0.0-7.3) 07/19/21 04:59 Eos % (Auto) 0.1 % (0.0-4.3) 07/19/21 04:59 Baso % (Auto) 0.1 % (0.0-1.8) 07/19/21 04:59 Lymph # (Auto) 1.1 K/mm3 (1.2-5.4) L 07/19/21 04:59 Person # (Auto) 0.5 K/mm3 (0.0-0.8) 07/19/21 04:59 Eos # (Auto) 0.0 K/mm3 (0.0-0.4) 07/19/21 04:59 Baso # (Auto) 0.0 K/mm3 (0.0-0.1) 07/19/21 04:59 Add Manual Diff Complete 07/27/21 04:48 Total Counted 100 07/27/21 04:48 Seg Neutrophils % Accounts Payable Administrator 07/27/21 04:48 Seg Neuts % (Manual) 92.0 % (40.0-70.0) H 07/27/21 04:48 Band Neutrophils % 1.0 % 07/26/21 06:07 Lymphocytes % (Manual) 3.0 % (13.4-35.0) L 07/27/21 04:48 Monocytes % (Manual) 5.0 % (0.0-7.3) 07/27/21 04:48 Metamyelocytes % 1.0 % 07/26/21 06:07 Myelocytes % 1.0 % 07/25/21 04:28 Nucleated RBC % 1.0 % (0.0-0.9) H 07/27/21 04:48 Seg Neutrophils # 8.7 K/mm3 (1.8-7.7) H 07/19/21 04:59 Seg Neutrophils # Man 15.2 K/mm3 (1.8-7.7) H 07/27/21 04:48 Band Neutrophils # 0.0 K/mm3 07/27/21 04:48 Lymphocytes # (Manual) 0.5 K/mm3 (1.2-5.4) L 07/27/21 04:48 Abs React Lymphs (Man) 0.0 K/mm3 07/27/21 04:48 Monocytes # (Manual) 0.8 K/mm3 (0.0-0.8) 07/27/21 04:48 Eosinophils # (Manual) 0.0 K/mm3 (0.0-0.4) 07/27/21 04:48 Basophils # (Manual) 0.0 K/mm3 (0.0-0.1) 07/27/21 04:48 Metamyelocytes # 0.0 K/mm3 07/27/21 04:48 Myelocytes # 0.0 K/mm3 07/27/21 04:48 Promyelocytes # 0.0 K/mm3 07/27/21 04:48 Blast Cells # 0.0 K/mm3 07/27/21 04:48 WBC Morphology Not Reportable 07/27/21 04:48 Hypersegmented Neuts Not Reportable 07/27/21 04:48 Hyposegmented Neuts Not Reportable 07/27/21 04:48 Hypogranular Neuts Not Reportable 07/27/21 04:48 Smudge Cells Not Reportable 07/27/21 04:48 Toxic Granulation Not Reportable 07/27/21 04:48 Toxic Vacuolation Not Reportable 07/27/21 04:48 Dohle Bodies Not Reportable 07/27/21 04:48 Pelger-Huet Anomaly Not Reportable 07/27/21 04:48 Alonzo Rods Not Reportable 07/27/21 04:48 Platelet Estimate Consistent w auto 07/27/21 04:48 Clumped Platelets Not Reportable 07/27/21 04:48 Plt Clumps, EDTA Not Reportable 07/27/21 04:48 Large Platelets Not Reportable 07/27/21 04:48 Giant Platelets Not Reportable 07/27/21 04:48 Platelet Satelliting Not Reportable 07/27/21 04:48 Plt Morphology Comment Not Reportable 07/27/21 04:48 RBC Morphology Normal 07/27/21 04:48 Dimorphic RBCs Not Reportable 07/27/21 04:48 Polychromasia Not Reportable 07/27/21 04:48 Hypochromasia Not Reportable 07/27/21 04:48 Poikilocytosis Not Reportable 07/27/21 04:48 Anisocytosis Not Reportable 07/27/21 04:48 Microcytosis Not Reportable 07/27/21 04:48 Macrocytosis Not Reportable 07/27/21 04:48 Spherocytes Not Reportable 07/27/21 04:48 Pappenheimer Bodies Not Reportable 07/27/21 04:48 Sickle Cells Not Reportable 07/27/21 04:48 Target Cells Not Reportable 07/27/21 04:48 Tear Drop Cells Not Reportable 07/27/21 04:48 Ovalocytes Not Reportable 07/27/21 04:48 Helmet Cells Not Reportable 07/27/21 04:48 Jacinto-Bruno Bodies Not Reportable 07/27/21 04:48 [place] Rings Not Reportable 07/27/21 04:48 Marshall Cells Not Reportable 07/27/21 04:48 Bite Cells Not Reportable 07/27/21 04:48 Crenated Cell Not Reportable 07/27/21 04:48 Elliptocytes Not Reportable 07/27/21 04:48 Acanthocytes (Spur) Not Reportable 07/27/21 04:48 Rouleaux Not Reportable 07/27/21 04:48 Hemoglobin C Crystals Not Reportable 07/27/21 04:48 Schistocytes Not Reportable 07/27/21 04:48 Malaria parasites Not Reportable 07/27/21 04:48 Jarvis Bodies Not Reportable 07/27/21 04:48 Hem Pathologist Commnt No 07/27/21 04:48 PT 15.4 Sec. (12.2-14.9) H 08/03/21 05:33 INR 1.17 (0.87-1.13) H 08/03/21 05:33 APTT 31.9 Sec. (24.2-36.6) 07/18/21 16:00 D-Dimer 1383.44 ng/mlDDU (0-234) H 08/03/21 05:33 ABG pH 7.477 (7.320-7.450) H 08/01/21 04:00 POC ABG pCO2 41.3 mmHg (32.0-48.0) 08/01/21 04:00 ABG pCO2 35.2 mm Hg 07/19/21 Unknown POC ABG pO2 89.8 mmHg (83-108) 08/01/21 04:00 ABG pO2 64.2 mm Hg (80.0-90.0) L 07/19/21 Unknown POC ABG HCO3 29.9 08/01/21 04:00 ABG HCO3 20.1 mmol/L (20.0-26.0) 07/19/21 Unknown ABG O2 Saturation 97.0 (0-100) 08/01/21 04:00 ABG O2 Content 14.3 (0.0-44) 07/19/21 Unknown POC ABG Base Excess 5.8 08/01/21 04:00 ABG Base Excess -4.5 mmol/L (-2.0-3.0) L 07/19/21 Unknown ABG Hemoglobin 11.4 (12.0-17.5) L 08/01/21 04:00 ABG Oxyhemoglobin 96.4 (94-98) 08/01/21 04:00 ABG Carboxyhemoglobin 0.8 % (0.0-5.0) 07/19/21 Unknown ABG Methemoglobin 0.3 (0.0-1.5) 08/01/21 04:00 ABG Sodium 134.4 mmol/L (136.0-145.0) L 08/01/21 04:00 ABG Potassium 4.3 mmol/L (3.40-4.50) 08/01/21 04:00 ABG Chloride 99.0 mmol/L (98-107) 08/01/21 04:00 ABG Glucose 173 mg/dL (65-95) H 08/01/21 04:00 Oxyhemoglobin 91.9 % (95.0-99.0) L 07/19/21 Unknown Carboxyhemoglobin 0.3 (0.5-1.5) L 08/01/21 04:00 FiO2 100 % 07/19/21 Unknown FiO2 % 40.0 08/01/21 04:00 Sodium 139 mmol/L (137-145) 08/05/21 05:33 Potassium 4.2 mmol/L (3.6-5.0) 08/05/21 05:33 Chloride 103.9 mmol/L (98-107) 08/05/21 05:33 Carbon Dioxide 20 mmol/L (22-30) L 08/05/21 05:33 Anion Gap 19 mmol/L 08/05/21 05:33 BUN 26 mg/dL (7-17) H 08/05/21 05:33 Creatinine 0.6 mg/dL (0.6-1.2) 08/05/21 05:33 Estimated GFR > 60 ml/min 08/05/21 05:33 BUN/Creatinine Ratio 43 % 08/05/21 05:33 Glucose 103 mg/dL (65-100) H 08/05/21 05:33 POC Glucose 95 mg/dL (70-105) 08/05/21 11:39 Lactic Acid 1.40 mmol/L (0.7-2.0) 07/18/21 16:00 Calcium 9.3 mg/dL (8.4-10.2) 08/05/21 05:33 Phosphorus 3.30 mg/dL (2.5-4.5) 08/01/21 06:00 Magnesium 2.10 mg/dL (1.7-2.3) 08/01/21 06:00 Ferritin 263.2 ng/mL (10.0-200.0) H 08/03/21 05:33 Total Bilirubin 1.10 mg/dL (0.1-1.2) 08/05/21 05:33 AST 39 units/L (5-40) 08/05/21 05:33 ALT 97 units/L (7-56) H 08/05/21 05:33 Alkaline Phosphatase 35 units/L (35-129) 08/05/21 05:33 Ammonia 37.0 umol/L (25-60) 07/18/21 16:00 Lactate Dehydrogenase 427 units/L (91-180) H 08/03/21 05:33 Total Creatine Kinase 157 units/L (30-135) H 07/18/21 16:00 Troponin T 0.106 ng/mL (0.00-0.029) H* 07/18/21 16:00 C-Reactive Protein 0.20 mg/dL (0.00-1.30) 08/03/21 05:33 Total Protein 6.1 g/dL (6.3-8.2) L 08/05/21 05:33 Albumin 3.7 g/dL (3.9-5) L 08/05/21 05:33 Albumin/Globulin Ratio 1.5 % 08/05/21 05:33 Triglycerides 156 mg/dL (2-149) H 07/18/21 16:00 Cholesterol 127 mg/dL (50-199) 07/18/21 16:00 LDL Cholesterol Direct 64 mg/dL (50-130) 07/18/21 16:00 HDL Cholesterol 33 mg/dL (40-59) L 07/18/21 16:00 Cholesterol/HDL Ratio 3.84 % 07/18/21 16:00 Procalcitonin < 0.05 ng/mL (<0.15) 07/26/21 13:53 TSH 0.469 mlU/mL (0.270-4.200) 07/21/21 04:52 Free T4 1.05 ng/dL (0.76-1.46) 07/21/21 04:52 Arterial Blood Glucose 173 mg/dL (65-95) H 08/01/21 04:00 Arterial Blood Ionized Calcium 4.7 mg/dL (4.6-5.3) 08/01/21 04:00 Urine Color Yellow (Yellow) 07/18/21 Unknown Urine Turbidity Slightly-cloudy (Clear) 07/18/21 Unknown Urine pH 5.0 (5.0-7.0) 07/18/21 Unknown Ur Specific [place] 1.020 (1.003-1.030) 07/18/21 Unknown Urine Protein >500 mg/dL (Negative) 07/18/21 Unknown Urine Glucose (UA) Neg mg/dL (Negative) 07/18/21 Unknown Urine Ketones 20 mg/dL (Negative) 07/18/21 Unknown Urine Blood Neg (Negative) 07/18/21 Unknown Urine Nitrite Neg (Negative) 07/18/21 Unknown Urine Bilirubin Neg (Negative) 07/18/21 Unknown Urine Urobilinogen < 2.0 mg/dL (<2.0) 07/18/21 Unknown Ur Leukocyte Esterase Neg (Negative) 07/18/21 Unknown Urine WBC (Auto) 9.0 /HPF (0.0-6.0) H 07/18/21 Unknown Urine RBC (Auto) 2.0 /HPF (0.0-6.0) 07/18/21 Unknown U Epithel Cells (Auto) 1.0 /HPF (0-13.0) 07/18/21 Unknown Urine Bacteria (Auto) 1+ /HPF (Negative) 07/18/21 Unknown Amorphous Crystals Few 07/18/21 Unknown Urine Mucus Few /HPF 07/18/21 Unknown Vancomycin Trough 22.9 ug/mL (5.0-20.0) H 07/25/21 04:28 Salicylates < 0.3 mg/dL (2.8-20.0) L 07/18/21 16:00 Urine Opiates Screen Negative 07/18/21 Unknown Urine Methadone Screen Negative 07/18/21 Unknown Acetaminophen 5.7 ug/mL (10.0-30.0) L 07/18/21 16:00 Ur Barbiturates Screen Negative 07/18/21 Unknown Ur Phencyclidine Scrn Negative 07/18/21 Unknown Ur Amphetamines Screen Negative 07/18/21 Unknown U Benzodiazepines Scrn Negative 07/18/21 Unknown Urine Cocaine Screen Negative 07/18/21 Unknown U Marijuana (THC) Screen Negative 07/18/21 Unknown Drugs of Abuse Note Disclamer 07/18/21 Unknown Plasma/Serum Alcohol < 0.01 % (0-0.07) 07/18/21 16:00 Coronavirus (PCR) Positive (Negative) A 07/19/21 Unknown Blood Type O POSITIVE 07/18/21 16:05 Antibody Screen Negative 07/18/21 16:05 Guzman/IV: Voiding Method Indwelling Catheter Active Medications - Current Medications Current Medications: Generic Name Dose Route Start Last Admin Trade Name Freq PRN Reason Stop Dose Admin Acetaminophen 650 mg 07/18/21 22:49 Acetaminophen 325 Mg Tab PO Q4H PRN Pain MILD(1-3)/Fever >100.5/URENA Lipase/Protease/Amylase 1 each 07/18/21 22:56 Lipase 10,500/Protease 25,000/Amylase 43,750 (Units) Dr Alvarado FEEDTUBE PRN PRN For Clogged Feeding Tube Bisacodyl 10 mg 07/27/21 09:02 07/27/21 11:16 Bisacodyl 10 Mg Rect Supp [place] 10 mg QDAY PRN Administration Constip unreliev by MOM/or NPO Enoxaparin Sodium 100 mg 07/19/21 10:00 08/05/21 10:27 Enoxaparin 100 Mg/1 Ml Inj SUB-Q 100 mg Q12HR NICOLE Administration Protocol Famotidine 20 mg 07/18/21 22:00 08/05/21 11:28 Famotidine 20 Mg/2 Ml Inj IV 20 mg BID NICOLE Administration Haloperidol Lactate 5 mg 08/01/21 10:29 Haloperidol Lactate 5 Mg/1 Ml Inj IV Q6H PRN Agitation Hydralazine HCl 20 mg 08/04/21 13:00 08/05/21 07:26 Hydralazine 20 Mg/1 Ml Inj IV Not Given Q6H [facility] Hydrophilic Ointment 1 applic 07/18/21 14:41 Lip Therapy Vaseline TP Q2HR PRN Dry Lips Lactated Ringer's 1,000 mls @ 25 mls/hr 08/04/21 20:00 Lactated Ringers IV DIRECT [facility] Insulin Glargine 5 units 07/27/21 22:00 08/04/21 22:27 Insulin Glargine 100 Units/Ml SUB-Q 5 units QHS NICOLE Administration Insulin Human Lispro 0 unit 07/27/21 12:00 08/05/21 07:25 Insulin Lispro 100 Unit/Ml SUB-Q Not Given Q6HR [facility] Protocol Methylprednisolone Sodium Succinate 20 mg 08/04/21 14:00 08/05/21 05:02 Methylprednisolone Sod Succinate 40 Mg/1 Ml Inj IV 20 mg Q8HR NICOLE Administration Multi-Ingred Cream/Lotion/Oil/Oint 1 applic 07/18/21 14:41 Mineral Oil/Petrolatum, White Ophth Oint 3.5 Gm OU Q4HR PRN Dry Eye(s) Ondansetron HCl 4 mg 07/18/21 22:49 Ondansetron 4 Mg/2 Ml Inj IV Q8H PRN Nausea And Vomiting Oxycodone/Acetaminophen 1 tab 08/01/21 15:00 Oxycodone /Acetaminophen 5-325mg Tab PO Q6H PRN Pain, Moderate (4-6) Nutrition/Malnutrition Assess - Dietary Evaluation Nutrition/Malnutrition Findings: Nutrition Notes Start: 07/19/21 09:15 Freq: Status: Active Protocol: Document 08/03/21 11:44 MK (Rec: 08/03/21 11:45 MK [id number]) Nutrition Notes Initial or Follow up Brief Note Current Diagnosis Acute Kidney Injury,Diabetes, Hypertension,Respiratory Failure Other Pertinent Diagnosis COVID Current Diet No diet Subjective/Other Information Pt was extubated on 08/01. Pt is waiting for [employer] TECHNICIAN eval for diet advancement. Nutrition Intervention Follow-Up By: 08/05/21 Additional Comments F/u: diet advancement and intakes
--- NOTE | 2021-08-05 12:47 | Progress Note ---
Assessment and Plan - Patient Problems (1) Acute respiratory failure due to COVID-19 Current Visit: Yes Status: Acute Plan to address problem: Continue management of Covid 19 infection as per protocol. (2) Multiple pulmonary emboli Current Visit: Yes Status: Acute Plan to address problem: Anticoagulation therapy ongoing with Eliquis. (3) Right ventricular thrombus Current Visit: Yes Status: Acute Plan to address problem: Anticoagulation therapy is ongoing with Eliquis. Subjective Date of service: 08/05/21 Principal diagnosis: COVID pneumonia Interval history: No cardiac complaints, patient is comfortably no acute distress. Objective Vital Signs Temp Pulse Pulse Resp BP BP Pulse Ox 08/05/21 11:47 98 08/05/21 11:37 99.5 F 69 18 145/65 96 08/05/21 07:26 120/68 08/05/21 05:50 98.8 F 74 20 122/62 92 08/05/21 02:09 88 94 08/05/21 01:51 98.2 F 78 20 149/74 93 08/04/21 21:02 92 08/04/21 16:44 92 08/04/21 16:19 98.4 F 74 18 157/76 93 08/04/21 15:08 92 08/04/21 13:07 145/69 - Physical Examination General: No Apparent Distress Neck: Positive: neck supple Cardiac: Positive: Reg Rate and Rhythm Lungs: Positive: Decreased Breath Sounds Abdomen: Positive: Soft Skin: Positive: Clear Extremities: Absent: edema - Labs and Meds Cardiac Enzymes 08/05/21 Range/Units 05:33 AST 39 (5-40) units/L CBC 08/05/21 Range/Units 05:33 WBC 6.1 (4.5-11.0) K/mm3 RBC 3.55 L (3.65-5.03) M/mm3 Hgb 10.4 (10.1-14.3) gm/dl Hct 31.3 (30.3-42.9) % Plt Count 219 (140-440) K/mm3 Comprehensive Metabolic Panel 08/05/21 Range/Units 05:33 Sodium 139 (137-145) mmol/L Potassium 4.2 (3.6-5.0) mmol/L Chloride 103.9 (98-107) mmol/L Carbon Dioxide 20 L (22-30) mmol/L BUN 26 H (7-17) mg/dL Creatinine 0.6 (0.6-1.2) mg/dL Glucose 103 H (65-100) mg/dL Calcium 9.3 (8.4-10.2) mg/dL AST 39 (5-40) units/L ALT 97 H (7-56) units/L Alkaline Phosphatase 35 (35-129) units/L Total Protein 6.1 L (6.3-8.2) g/dL Albumin 3.7 L (3.9-5) g/dL - Imaging and Cardiology EKG: report reviewed
[2021-08-05] MEDS: INSULIN GLARGINE 100 UNITS/ML SUB-Q SCH (23:21)
[2021-08-05] MEDS: LACTATED RINGERS 1,000 ML IV SCH ×2 (23:26→23:57)
[2021-08-05] MEDS: ACETAMINOPHEN 325 MG TAB PO PRN (23:56)
[2021-08-06] MEDS: hydrALAZINE 20 MG/1 ML INJ IV SCH ×2 (02:23→07:00)
[2021-08-06] MEDS: INSULIN LISPRO 100 UNIT/ML SUB-Q SCH ×4 (06:21→17:08)
[2021-08-06] MEDS: methylPREDNISolone Sod Succinate 40 MG/1 ML INJ IV SCH (06:23)
--- NOTE | 2021-08-06 07:27 | Progress Note ---
Assessment and Plan Assessment and plan: Patient is a 55-year-old female history of obesity diabetes, anxiety, hypertension who was admitted with severe COVID-19 pneumonia also found to have multiple subsegmental PEs, ION and sepsis. #Acute metabolic encephalopathy -resolved #Severe COVID-19 pneumonia -Extubated 08/01; weaned to room air -Status post remdesivir & Acemtra -Patient passed speech eval, converted methylprednisone to prednisone 60 daily -We will continue prednisone taper at discharge #Tricuspid valve thrombus -Continue therapeutic Lovenox -Cardiology following -Repeat echo in 3 months #Multiple subsegmental pulmonary embolism, LLE DVT -Lovenox, SCDs to lower extremity -Continue to monitor SPO2 #History of type 2 diabetes -POC glucose within goal (140-180) -Continue as needed SSI Total Time Spent with Patient (Minutes): 30 minutes - Patient Problems (1) Acute encephalopathy Current Visit: Yes Status: Acute (2) Multiple pulmonary emboli Current Visit: Yes Status: Acute (3) Right ventricular thrombus Current Visit: Yes Status: Acute History Interval history: Patient lucid and interactive today.expresses desire to be more mobile independently. Weaned to room air. Denies any complaints at this time. Hospitalist Physical - Physical exam Narrative exam: GENERAL: Well-developed well-nourished. Lying in bed. CHEST/LUNGS: CTAB on room air HEART/CARDIOVASCULAR: RRR. No murmur, rubs or gallops appreciated. ABDOMEN: +BS. NT/ND. NEURO: No focal motor deficit. Follows all commands. EXTREMITIES: No cyanosis, cubbing or edema. - Constitutional Vitals: Temp Pulse Resp BP Pulse Ox 99.2 F 69 20 149/83 95 08/06/21 05:19 08/06/21 05:19 08/06/21 05:19 08/06/21 05:19 08/06/21 05:19 General appearance: Present: no acute distress, other - Allied Health Allied health notes reviewed: nursing, ST, OT, social work, case management HEART Score - HEART Score Troponin: Troponin T 0.106 ng/mL (0.00-0.029) H* 07/18/21 16:00 Results - Labs CBC & Chem 7: 08/05/21 05:33 08/05/21 05:33 Labs: Laboratory Last Values WBC 6.1 K/mm3 (4.5-11.0) 08/05/21 05:33 RBC 3.55 M/mm3 (3.65-5.03) L 08/05/21 05:33 Hgb 10.4 gm/dl (10.1-14.3) 08/05/21 05:33 Hct 31.3 % (30.3-42.9) 08/05/21 05:33 MCV 88 fl (79-97) 08/05/21 05:33 MCH 29 pg (28-32) 08/05/21 05:33 MCHC 33 % (30-34) 08/05/21 05:33 RDW 18.1 % (13.2-15.2) H 08/05/21 05:33 Plt Count 219 K/mm3 (140-440) 08/05/21 05:33 Lymph % (Auto) 10.7 % (13.4-35.0) L 07/19/21 04:59 [place] % (Auto) 4.8 % (0.0-7.3) 07/19/21 04:59 Eos % (Auto) 0.1 % (0.0-4.3) 07/19/21 04:59 Baso % (Auto) 0.1 % (0.0-1.8) 07/19/21 04:59 Lymph # (Auto) 1.1 K/mm3 (1.2-5.4) L 07/19/21 04:59 [place] # (Auto) 0.5 K/mm3 (0.0-0.8) 07/19/21 04:59 Eos # (Auto) 0.0 K/mm3 (0.0-0.4) 07/19/21 04:59 Baso # (Auto) 0.0 K/mm3 (0.0-0.1) 07/19/21 04:59 Add Manual Diff Complete 07/27/21 04:48 Total Counted 100 07/27/21 04:48 Seg Neutrophils % Senior Qc Technician 07/27/21 04:48 Seg Neuts % (Manual) 92.0 % (40.0-70.0) H 07/27/21 04:48 Band Neutrophils % 1.0 % 07/26/21 06:07 Lymphocytes % (Manual) 3.0 % (13.4-35.0) L 07/27/21 04:48 Monocytes % (Manual) 5.0 % (0.0-7.3) 07/27/21 04:48 Metamyelocytes % 1.0 % 07/26/21 06:07 Myelocytes % 1.0 % 07/25/21 04:28 Nucleated RBC % 1.0 % (0.0-0.9) H 07/27/21 04:48 Seg Neutrophils # 8.7 K/mm3 (1.8-7.7) H 07/19/21 04:59 Seg Neutrophils # Man 15.2 K/mm3 (1.8-7.7) H 07/27/21 04:48 Band Neutrophils # 0.0 K/mm3 07/27/21 04:48 Lymphocytes # (Manual) 0.5 K/mm3 (1.2-5.4) L 07/27/21 04:48 Abs React Lymphs (Man) 0.0 K/mm3 07/27/21 04:48 Monocytes # (Manual) 0.8 K/mm3 (0.0-0.8) 07/27/21 04:48 Eosinophils # (Manual) 0.0 K/mm3 (0.0-0.4) 07/27/21 04:48 Basophils # (Manual) 0.0 K/mm3 (0.0-0.1) 07/27/21 04:48 Metamyelocytes # 0.0 K/mm3 07/27/21 04:48 Myelocytes # 0.0 K/mm3 07/27/21 04:48 Promyelocytes # 0.0 K/mm3 07/27/21 04:48 Blast Cells # 0.0 K/mm3 07/27/21 04:48 WBC Morphology Not Reportable 07/27/21 04:48 Hypersegmented Neuts Not Reportable 07/27/21 04:48 Hyposegmented Neuts Not Reportable 07/27/21 04:48 Hypogranular Neuts Not Reportable 07/27/21 04:48 Smudge Cells Not Reportable 07/27/21 04:48 Toxic Granulation Not Reportable 07/27/21 04:48 Toxic Vacuolation Not Reportable 07/27/21 04:48 Dohle Bodies Not Reportable 07/27/21 04:48 Pelger-Huet Anomaly Not Reportable 07/27/21 04:48 Alonzo Rods Not Reportable 07/27/21 04:48 Platelet Estimate Consistent w auto 07/27/21 04:48 Clumped Platelets Not Reportable 07/27/21 04:48 Plt Clumps, EDTA Not Reportable 07/27/21 04:48 Large Platelets Not Reportable 07/27/21 04:48 Giant Platelets Not Reportable 07/27/21 04:48 Platelet Satelliting Not Reportable 07/27/21 04:48 Plt Morphology Comment Not Reportable 07/27/21 04:48 RBC Morphology Normal 07/27/21 04:48 Dimorphic RBCs Not Reportable 07/27/21 04:48 Polychromasia Not Reportable 07/27/21 04:48 Hypochromasia Not Reportable 07/27/21 04:48 Poikilocytosis Not Reportable 07/27/21 04:48 Anisocytosis Not Reportable 07/27/21 04:48 Microcytosis Not Reportable 07/27/21 04:48 Macrocytosis Not Reportable 07/27/21 04:48 Spherocytes Not Reportable 07/27/21 04:48 Pappenheimer Bodies Not Reportable 07/27/21 04:48 Sickle Cells Not Reportable 07/27/21 04:48 Target Cells Not Reportable 07/27/21 04:48 Tear Drop Cells Not Reportable 07/27/21 04:48 Ovalocytes Not Reportable 07/27/21 04:48 Helmet Cells Not Reportable 07/27/21 04:48 [place] Bodies Not Reportable 07/27/21 04:48 [place] Rings Not Reportable 07/27/21 04:48 [place] Cells Not Reportable 07/27/21 04:48 Bite Cells Not Reportable 07/27/21 04:48 Crenated Cell Not Reportable 07/27/21 04:48 Elliptocytes Not Reportable 07/27/21 04:48 Acanthocytes (Spur) Not Reportable 07/27/21 04:48 Rouleaux Not Reportable 07/27/21 04:48 Hemoglobin C Crystals Not Reportable 07/27/21 04:48 Schistocytes Not Reportable 07/27/21 04:48 Malaria parasites Not Reportable 07/27/21 04:48 [place]vis Bodies Not Reportable 07/27/21 04:48 Hem Pathologist Commnt No 07/27/21 04:48 PT 15.4 Sec. (12.2-14.9) H 08/03/21 05:33 INR 1.17 (0.87-1.13) H 08/03/21 05:33 APTT 31.9 Sec. (24.2-36.6) 07/18/21 16:00 D-Dimer 1383.44 ng/mlDDU (0-234) H 08/03/21 05:33 ABG pH 7.477 (7.320-7.450) H 08/01/21 04:00 POC ABG pCO2 41.3 mmHg (32.0-48.0) 08/01/21 04:00 ABG pCO2 35.2 mm Hg 07/19/21 Unknown POC ABG pO2 89.8 mmHg (83-108) 08/01/21 04:00 ABG pO2 64.2 mm Hg (80.0-90.0) L 07/19/21 Unknown POC ABG HCO3 29.9 08/01/21 04:00 ABG HCO3 20.1 mmol/L (20.0-26.0) 07/19/21 Unknown ABG O2 Saturation 97.0 (0-100) 08/01/21 04:00 ABG O2 Content 14.3 (0.0-44) 07/19/21 Unknown POC ABG Base Excess 5.8 08/01/21 04:00 ABG Base Excess -4.5 mmol/L (-2.0-3.0) L 07/19/21 Unknown ABG Hemoglobin 11.4 (12.0-17.5) L 08/01/21 04:00 ABG Oxyhemoglobin 96.4 (94-98) 08/01/21 04:00 ABG Carboxyhemoglobin 0.8 % (0.0-5.0) 07/19/21 Unknown ABG Methemoglobin 0.3 (0.0-1.5) 08/01/21 04:00 ABG Sodium 134.4 mmol/L (136.0-145.0) L 08/01/21 04:00 ABG Potassium 4.3 mmol/L (3.40-4.50) 08/01/21 04:00 ABG Chloride 99.0 mmol/L (98-107) 08/01/21 04:00 ABG Glucose 173 mg/dL (65-95) H 08/01/21 04:00 Oxyhemoglobin 91.9 % (95.0-99.0) L 07/19/21 Unknown Carboxyhemoglobin 0.3 (0.5-1.5) L 08/01/21 04:00 FiO2 100 % 07/19/21 Unknown FiO2 % 40.0 08/01/21 04:00 Sodium 139 mmol/L (137-145) 08/05/21 05:33 Potassium 4.2 mmol/L (3.6-5.0) 08/05/21 05:33 Chloride 103.9 mmol/L (98-107) 08/05/21 05:33 Carbon Dioxide 20 mmol/L (22-30) L 08/05/21 05:33 Anion Gap 19 mmol/L 08/05/21 05:33 BUN 26 mg/dL (7-17) H 08/05/21 05:33 Creatinine 0.6 mg/dL (0.6-1.2) 08/05/21 05:33 Estimated GFR > 60 ml/min 08/05/21 05:33 BUN/Creatinine Ratio 43 % 08/05/21 05:33 Glucose 103 mg/dL (65-100) H 08/05/21 05:33 POC Glucose 94 mg/dL (70-105) 08/05/21 22:10 Lactic Acid 1.40 mmol/L (0.7-2.0) 07/18/21 16:00 Calcium 9.3 mg/dL (8.4-10.2) 08/05/21 05:33 Phosphorus 3.30 mg/dL (2.5-4.5) 08/01/21 06:00 Magnesium 2.10 mg/dL (1.7-2.3) 08/01/21 06:00 Ferritin 263.2 ng/mL (10.0-200.0) H 08/03/21 05:33 Total Bilirubin 1.10 mg/dL (0.1-1.2) 08/05/21 05:33 AST 39 units/L (5-40) 08/05/21 05:33 ALT 97 units/L (7-56) H 08/05/21 05:33 Alkaline Phosphatase 35 units/L (35-129) 08/05/21 05:33 Ammonia 37.0 umol/L (25-60) 07/18/21 16:00 Lactate Dehydrogenase 427 units/L (91-180) H 08/03/21 05:33 Total Creatine Kinase 157 units/L (30-135) H 07/18/21 16:00 Troponin T 0.106 ng/mL (0.00-0.029) H* 07/18/21 16:00 C-Reactive Protein 0.20 mg/dL (0.00-1.30) 08/03/21 05:33 Total Protein 6.1 g/dL (6.3-8.2) L 08/05/21 05:33 Albumin 3.7 g/dL (3.9-5) L 08/05/21 05:33 Albumin/Globulin Ratio 1.5 % 08/05/21 05:33 Triglycerides 156 mg/dL (2-149) H 07/18/21 16:00 Cholesterol 127 mg/dL (50-199) 07/18/21 16:00 LDL Cholesterol Direct 64 mg/dL (50-130) 07/18/21 16:00 HDL Cholesterol 33 mg/dL (40-59) L 07/18/21 16:00 Cholesterol/HDL Ratio 3.84 % 07/18/21 16:00 Procalcitonin < 0.05 ng/mL (<0.15) 07/26/21 13:53 TSH 0.469 mlU/mL (0.270-4.200) 07/21/21 04:52 Free T4 1.05 ng/dL (0.76-1.46) 07/21/21 04:52 Arterial Blood Glucose 173 mg/dL (65-95) H 08/01/21 04:00 Arterial Blood Ionized Calcium 4.7 mg/dL (4.6-5.3) 08/01/21 04:00 Urine Color Yellow (Yellow) 07/18/21 Unknown Urine Turbidity Slightly-cloudy (Clear) 07/18/21 Unknown Urine pH 5.0 (5.0-7.0) 07/18/21 Unknown Ur Specific [place] 1.020 (1.003-1.030) 07/18/21 Unknown Urine Protein >500 mg/dL (Negative) 07/18/21 Unknown Urine Glucose (UA) Neg mg/dL (Negative) 07/18/21 Unknown Urine Ketones 20 mg/dL (Negative) 07/18/21 Unknown Urine Blood Neg (Negative) 07/18/21 Unknown Urine Nitrite Neg (Negative) 07/18/21 Unknown Urine Bilirubin Neg (Negative) 07/18/21 Unknown Urine Urobilinogen < 2.0 mg/dL (<2.0) 07/18/21 Unknown Ur Leukocyte Esterase Neg (Negative) 07/18/21 Unknown Urine WBC (Auto) 9.0 /HPF (0.0-6.0) H 07/18/21 Unknown Urine RBC (Auto) 2.0 /HPF (0.0-6.0) 07/18/21 Unknown U Epithel Cells (Auto) 1.0 /HPF (0-13.0) 07/18/21 Unknown Urine Bacteria (Auto) 1+ /HPF (Negative) 07/18/21 Unknown Amorphous Crystals Few 07/18/21 Unknown Urine Mucus Few /HPF 07/18/21 Unknown Vancomycin Trough 22.9 ug/mL (5.0-20.0) H 07/25/21 04:28 Salicylates < 0.3 mg/dL (2.8-20.0) L 07/18/21 16:00 Urine Opiates Screen Negative 07/18/21 Unknown Urine Methadone Screen Negative 07/18/21 Unknown Acetaminophen 5.7 ug/mL (10.0-30.0) L 07/18/21 16:00 Ur Barbiturates Screen Negative 07/18/21 Unknown Ur Phencyclidine Scrn Negative 07/18/21 Unknown Ur Amphetamines Screen Negative 07/18/21 Unknown U Benzodiazepines Scrn Negative 07/18/21 Unknown Urine Cocaine Screen Negative 07/18/21 Unknown U Marijuana (THC) Screen Negative 07/18/21 Unknown Drugs of Abuse Note Disclamer 07/18/21 Unknown Plasma/Serum Alcohol < 0.01 % (0-0.07) 07/18/21 16:00 Coronavirus (PCR) Positive (Negative) A 07/19/21 Unknown Blood Type O POSITIVE 07/18/21 16:05 Antibody Screen Negative 07/18/21 16:05 Guzman/IV: Voiding Method Indwelling Catheter Active Medications - Current Medications Current Medications: Generic Name Dose Route Start Last Admin Trade Name Freq PRN Reason Stop Dose Admin Acetaminophen 650 mg 07/18/21 22:49 08/05/21 23:56 Acetaminophen 325 Mg Tab PO 650 mg Q4H PRN Administration Pain MILD(1-3)/Fever >100.5/URENA Lipase/Protease/Amylase 1 each 07/18/21 22:56 Lipase 10,500/Protease 25,000/Amylase 43,750 (Units) Dr Alvarado FEEDTUBE PRN PRN For Clogged Feeding Tube Bisacodyl 10 mg 07/27/21 09:02 07/27/21 11:16 Bisacodyl 10 Mg Rect Supp CO 10 mg QDAY PRN Administration Constip unreliev by MOM/or NPO Enoxaparin Sodium 100 mg 07/19/21 10:00 08/05/21 23:21 Enoxaparin 100 Mg/1 Ml Inj SUB-Q 100 mg Q12HR NICOLE Administration Protocol Famotidine 20 mg 07/18/21 22:00 08/05/21 23:21 Famotidine 20 Mg/2 Ml Inj IV 20 mg BID NICOLE Administration Haloperidol Lactate 5 mg 08/01/21 10:29 Haloperidol Lactate 5 Mg/1 Ml Inj IV Q6H PRN Agitation Hydrophilic Ointment 1 applic 07/18/21 14:41 Lip Therapy Vaseline TP Q2HR PRN Dry Lips Lactated Ringer's 1,000 mls @ 25 mls/hr 08/04/21 20:00 08/05/21 23:57 Lactated Ringers IV 25 mls/hr DIRECT NICOLE Administration Insulin Glargine 5 units 07/27/21 22:00 08/05/21 23:21 Insulin Glargine 100 Units/Ml SUB-Q 5 units QHS NICOLE Administration Insulin Human Lispro 0 unit 07/27/21 12:00 08/06/21 06:24 Insulin Lispro 100 Unit/Ml SUB-Q Not Given Q6HR [facility] Protocol Methylprednisolone Sodium Succinate 20 mg 08/04/21 14:00 08/06/21 06:23 Methylprednisolone Sod Succinate 40 Mg/1 Ml Inj IV 20 mg Q8HR NICOLE Administration Multi-Ingred Cream/Lotion/Oil/Oint 1 applic 07/18/21 14:41 Mineral Oil/Petrolatum, White Ophth Oint 3.5 Gm OU Q4HR PRN Dry Eye(s) Ondansetron HCl 4 mg 07/18/21 22:49 Ondansetron 4 Mg/2 Ml Inj IV Q8H PRN Nausea And Vomiting Oxycodone/Acetaminophen 1 tab 08/01/21 15:00 Oxycodone /Acetaminophen 5-325mg Tab PO Q6H PRN Pain, Moderate (4-6) Nutrition/Malnutrition Assess - Dietary Evaluation Nutrition/Malnutrition Findings: Nutrition Notes Start: 07/19/21 09:15 Freq: Status: Active Protocol: Document 08/05/21 13:03 (Rec: 08/05/21 13:04 [email or web address]) Nutrition Notes Initial or Follow up Brief Note Current Diagnosis Acute Kidney Injury,Diabetes, Hypertension,Respiratory Failure Other Pertinent Diagnosis COVID Current Diet No diet Subjective/Other Information Pt refusing RF TEST ENGINEER eval at this time. Unable to feed pt. Nutrition Intervention Follow-Up By: 08/09/21 Additional Comments F/u: diet advancement and intakes
[2021-08-06] MEDS: ENOXAPARIN 100 MG/1 ML INJ SUB-Q SCH ×2 (09:19→21:40)
[2021-08-06] MEDS: FAMOTIDINE 20 MG/2 ML INJ IV SCH ×2 (09:19→21:40)
--- NOTE | 2021-08-06 12:08 | Progress Note ---
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 Otherwise, conservative cardiac management. Subjective Date of service: 08/06/21 Principal diagnosis: COVID pneumonia Interval history: No distress noted. Objective Vital Signs Temp Pulse Resp BP Pulse Ox 08/06/21 10:00 95 08/06/21 09:37 93 08/06/21 05:19 99.2 F 69 20 149/83 95 08/06/21 02:00 98 08/05/21 22:12 100.8 F H 71 20 157/78 90 08/05/21 22:00 97 08/05/21 19:07 150/78 08/05/21 16:05 99.3 F 65 18 151/82 97 08/05/21 14:00 98 - Physical Examination Narrative exam: Deferred due to isolation protocol. General: No Apparent Distress Cardiac: Positive: Reg Rate and Rhythm
--- NOTE | 2021-08-06 12:21 | Progress Note ---
Assessment and Plan 55 y/o obese female with acute respiratory failure, pulmonary embolism, now with renal failure, most likely all secondary to COVID 19 08/06/21: Appears to be stable on room air. Suggest the following taper: (Prednisone 60 daily for 4 days, 40 daily for 4 days, 20 daily for 4 days then 10 daily for 4 days then stop). Can follow up in our office in 10-14 days post discharge. Will need indefinite anticoagulation for DVT/PE. Hopeful discharge soon. Will see as needed over the weekend. 08/04/21: Will drop steroids down to 20q8 which is the same as Pred 60 daily so when patient can eat, ok to switch to this. Continue supplemental Oxygen. PT/OT needed. All others per primary team. 08/03/21: Pulm status is stable to improving. Suggest continuing 2 liters until patient can ambulate or after PT/OT assessment before further weaning. Will start to wean steroids tomorrow. If able to swallow appropriately will switch to Prednisone 60 if not then solumedrol 20 IV q8 08/02/21: Successful extubation with weaning of oxygen. Still confused, most likely ICU delirium. Awaiting speech eval. If able to swallow suggest scheduled BID seroquel (50 BID). Spoke with cards. They only feel we need to treat the PE and DVT as this thrombus is likely from passing through the heart from the venous system. If able to swallow will do Eliquis if she can afford it. Given stability and improvement, will transfer to COVID floor with telemetry. Needs PT/OT as she may need rehab. Guarded prognosis still but promising. 08/01/21: Will attempt extubation this am. Ordered bipap therapy for PRN. Likely will need bp control but will address once extubated. Called family to update and then will call back once off the vent. 07/31/21: Drop PEEP to 6 later this afternoon and attempt to wean sedation to off. patient will likely not tolerate this. If she does then will try PSV this afternoon. If not, will plan to extubate with bipap available PRN early tomorrow morning. Discussed this with daughters over the phone. Asked nursing to address transducer with art line. I suspect the positioning is incorrect. 07/30/21: Will wean PEEP to 10 this afternoon. If tolerates then around 6-8 PM may drop to 8. Would not go any further than that today. Keep FiO2 at 40%. Once PEEP around 6, can start to lighten sedation and try PSV trials. Prognosis is still guarded. Spoke with family over the phone to update them on progress but also explain to them their family member is still gravely ill. Keep steroids at current dose at leas through the weekend. 07/29/21: Wean FiO2 as tolerated. PaO2 is good. Continue current dose of steroids. Changed Hydralazine. Continue anticoagulation. May be able to start weaning PEEP tomorrow. 07/28/21: Repeat CXR today to check ET tube. Wean steroids when able. Continue to wean FiO2 as tolerated. Do not move PEEP until FiO2 is at 45-50%. Guarded prognosis remains. Will call family now. 07/27/21: Ok with advancing ET tube 2-3 cm. Continue to wean FiO2 as tolerated. Repeat CXR post advancement of ET tube. Dropped steroids too 40q8 07/26/21: Back down to 65% like on 07/22 but PEEP is at 12. Will monitor closely. COntinue current level of sedation and high dose steroids. Prognosis is very very guarded. 07/23/21: Dropped FiO2 to 70. Hopeful to wean back down. Keep peep elevated until FiO2 at 50-55%. Continue High dose steroids. Keep RASS at -4. Na is better. Will stop D5W. Updated Daughter (Linda) and GodDaughter over the phone. If someone could please call them at least one day over the weekend I will call them again on Monday. Prognosis remains very guarded. Explained to them the high mortality rate associated with COVID and mechanical ventilation. 07/22/21: Dropped Fio2 to 65. Continue to wean for sats >88%. keep elevated peep until FiO2 around 50-55% so hopefully in the next 24-36 hours we can get there. Continue sedation to keep rass at -4. Continue high dose steroids. Will continue D5W for now until Free water can control sodium. need CBC in the am along with BMP. Prognosis still remains guarded. Continue lovenox 07/21/21: Dropped FiO2 to 80%. Continue to wean for sats >88%. Keep peep elevated until FiO2 around 50-55%. Continue remdesivir and adequate levels of sedation. Continue high dose steroids. No proning for now. Continue therapeutic lovenox. Prognosis remains guarded. 07/20/21: COVID positive. Started Remdesivir. Renal function improved. COntinue high dose steroids at current dosing for now. Suggest repeat ABG later this afternoon if able, may need art line but BP stable for now. No proning. Agree with therapeutic Lovenox. Guarded prognosis. 1. Follow up COVID testing, continue isolation 2. Agree with high dose IV steroids, if positive, will change to solumedrol 125q8 3. If positive then would need remdesivir and Actemra, hopefully still a candidate given bump in renal function 4. Unable to prone patient at moment, but did increase PEEP to 20 and ordered repeat ABG at 1400 5 Very very guarded prognosis CCT 31 minutes. Subjective Date of service: 08/06/21 Principal diagnosis: COVID pneumonia Interval history: Patient has been weaned to room air. Objective Vital Signs - 12hr 08/06/21 08/06/21 08/06/21 02:00 05:19 09:37 Temperature 99.2 F Pulse Rate 69 Respiratory 20 Rate Blood Pressure 149/83 O2 Sat by Pulse 98 95 93 Oximetry 08/06/21 10:00 Temperature Pulse Rate Respiratory Rate Blood Pressure O2 Sat by Pulse 95 Oximetry Constitutional: no acute distress, comatose ENT: other (orally intubated and sedated) Ascultation: Bilateral: diminished breath sounds Cardiovascular: regular rate and rhythm Gastrointestinal: normoactive bowel sounds, soft, non-tender Integumentary: normal Extremities: no cyanosis Neurologic: other (Sedated) CBC and BMP: 08/05/21 05:33 08/05/21 05:33 ABG, PT/INR, D-dimer: ABG ABG pH 7.477 (7.320-7.450) H 08/01/21 04:00 POC ABG pCO2 41.3 mmHg (32.0-48.0) 08/01/21 04:00 ABG pCO2 35.2 mm Hg 07/19/21 Unknown POC ABG pO2 89.8 mmHg (83-108) 08/01/21 04:00 ABG pO2 64.2 mm Hg (80.0-90.0) L 07/19/21 Unknown POC ABG HCO3 29.9 08/01/21 04:00 ABG O2 Saturation 97.0 (0-100) 08/01/21 04:00 PT/INR, D-dimer PT 15.4 Sec. (12.2-14.9) H 08/03/21 05:33 INR 1.17 (0.87-1.13) H 08/03/21 05:33 D-Dimer 1383.44 ng/mlDDU (0-234) H 08/03/21 05:33 Abnormal lab findings: Abnormal Labs 07/18/21 07/18/21 07/18/21 16:00 16:00 16:00 WBC RBC Hgb Hct RDW 15.3 H Lymph % (Auto) 7.9 L Lymph # (Auto) 0.8 L Seg Neutrophils % 86.3 H Seg Neuts % (Manual) Lymphocytes % (Manual) Nucleated RBC % Seg Neutrophils # 9.0 H Seg Neutrophils # Man Lymphocytes # (Manual) Monocytes # (Manual) PT 15.1 H INR D-Dimer > 75097 H ABG pH POC ABG pCO2 POC ABG pO2 ABG pO2 ABG O2 Saturation ABG Base Excess ABG Hemoglobin ABG Oxyhemoglobin ABG Sodium ABG Chloride ABG Glucose Oxyhemoglobin Carboxyhemoglobin Sodium Potassium 3.5 L Chloride Carbon Dioxide 20 L BUN 19 H Creatinine Glucose 140 H POC Glucose Calcium Magnesium Ferritin AST 43 H ALT Lactate Dehydrogenase 705 H Total Creatine Kinase 157 H Troponin T 0.106 H* C-Reactive Protein 33.00 H Total Protein Albumin 3.2 L Triglycerides 156 H HDL Cholesterol 33 L Arterial Blood Glucose Arterial Blood Ionized Calcium Urine WBC (Auto) Vancomycin Trough Salicylates Acetaminophen Coronavirus (PCR) 07/18/21 07/18/21 07/18/21 16:00 16:00 16:00 WBC RBC Hgb Hct RDW Lymph % (Auto) Lymph # (Auto) Seg Neutrophils % Seg Neuts % (Manual) Lymphocytes % (Manual) Nucleated RBC % Seg Neutrophils # Seg Neutrophils # Man Lymphocytes # (Manual) Monocytes # (Manual) PT INR D-Dimer ABG pH POC ABG pCO2 POC ABG pO2 ABG pO2 ABG O2 Saturation ABG Base Excess ABG Hemoglobin ABG Oxyhemoglobin ABG Sodium ABG Chloride ABG Glucose Oxyhemoglobin Carboxyhemoglobin Sodium Potassium Chloride Carbon Dioxide BUN Creatinine Glucose POC Glucose Calcium Magnesium Ferritin 657.0 H AST ALT Lactate Dehydrogenase Total Creatine Kinase Troponin T C-Reactive Protein Total Protein Albumin Triglycerides HDL Cholesterol Arterial Blood Glucose Arterial Blood Ionized Calcium Urine WBC (Auto) Vancomycin Trough Salicylates < 0.3 L Acetaminophen 5.7 L Coronavirus (PCR) 07/18/21 07/18/21 07/19/21 Unknown Unknown 04:33 WBC RBC Hgb Hct RDW Lymph % (Auto) Lymph # (Auto) Seg Neutrophils % Seg Neuts % (Manual) Lymphocytes % (Manual) Nucleated RBC % Seg Neutrophils # Seg Neutrophils # Man Lymphocytes # (Manual) Monocytes # (Manual) PT INR D-Dimer ABG pH 7.275 L POC ABG pCO2 POC ABG pO2 68.7 L 53.1 L ABG pO2 ABG O2 Saturation ABG Base Excess ABG Hemoglobin ABG Oxyhemoglobin 88.3 L 85.3 L ABG Sodium ABG Chloride 109.0 H ABG Glucose 170 H 150 H Oxyhemoglobin Carboxyhemoglobin 0 L 0.3 L Sodium Potassium Chloride Carbon Dioxide BUN Creatinine Glucose POC Glucose Calcium Magnesium Ferritin AST ALT Lactate Dehydrogenase Total Creatine Kinase Troponin T C-Reactive Protein Total Protein Albumin Triglycerides HDL Cholesterol Arterial Blood Glucose 170 H 150 H Arterial Blood Ionized Calcium Urine WBC (Auto) 9.0 H Vancomycin Trough Salicylates Acetaminophen Coronavirus (PCR) 07/19/21 07/19/21 07/19/21 04:59 04:59 Unknown WBC RBC Hgb Hct RDW 16.0 H Lymph % (Auto) 10.7 L Lymph # (Auto) 1.1 L Seg Neutrophils % 84.3 H Seg Neuts % (Manual) Lymphocytes % (Manual) Nucleated RBC % Seg Neutrophils # 8.7 H Seg Neutrophils # Man Lymphocytes # (Manual) Monocytes # (Manual) PT INR D-Dimer ABG pH POC ABG pCO2 POC ABG pO2 ABG pO2 ABG O2 Saturation ABG Base Excess ABG Hemoglobin ABG Oxyhemoglobin ABG Sodium ABG Chloride ABG Glucose Oxyhemoglobin Carboxyhemoglobin Sodium Potassium Chloride 108.8 H Carbon Dioxide 21 L BUN 28 H Creatinine 1.8 H Glucose 145 H POC Glucose Calcium 7.8 L Magnesium Ferritin AST ALT Lactate Dehydrogenase Total Creatine Kinase Troponin T C-Reactive Protein Total Protein 6.2 L Albumin 3.2 L Triglycerides HDL Cholesterol Arterial Blood Glucose Arterial Blood Ionized Calcium Urine WBC (Auto) Vancomycin Trough Salicylates Acetaminophen Coronavirus (PCR) Positive A 07/19/21 07/20/21 07/20/21 Unknown 00:14 04:44 WBC RBC Hgb Hct RDW Lymph % (Auto) Lymph # (Auto) Seg Neutrophils % Seg Neuts % (Manual) Lymphocytes % (Manual) Nucleated RBC % Seg Neutrophils # Seg Neutrophils # Man Lymphocytes # (Manual) Monocytes # (Manual) PT INR D-Dimer ABG pH POC ABG pCO2 POC ABG pO2 ABG pO2 64.2 L ABG O2 Saturation 93.2 L ABG Base Excess -4.5 L ABG Hemoglobin 11.0 L ABG Oxyhemoglobin ABG Sodium ABG Chloride ABG Glucose Oxyhemoglobin 91.9 L Carboxyhemoglobin Sodium Potassium Chloride 112.2 H Carbon Dioxide BUN 38 H Creatinine 1.3 H Glucose 156 H POC Glucose 164 H Calcium 8.1 L Magnesium 3.10 H Ferritin AST ALT Lactate Dehydrogenase Total Creatine Kinase Troponin T C-Reactive Protein Total Protein Albumin 2.8 L Triglycerides HDL Cholesterol Arterial Blood Glucose Arterial Blood Ionized Calcium Urine WBC (Auto) Vancomycin Trough Salicylates Acetaminophen Coronavirus (PCR) 07/20/21 07/20/21 07/20/21 04:44 05:00 05:40 WBC RBC 3.42 L Hgb 9.7 L Hct 29.3 L RDW 16.1 H Lymph % (Auto) Lymph # (Auto) Seg Neutrophils % Seg Neuts % (Manual) Lymphocytes % (Manual) Nucleated RBC % Seg Neutrophils # Seg Neutrophils # Man Lymphocytes # (Manual) Monocytes # (Manual) PT INR D-Dimer ABG pH POC ABG pCO2 POC ABG pO2 139.0 H ABG pO2 ABG O2 Saturation ABG Base Excess ABG Hemoglobin 10.1 L ABG Oxyhemoglobin ABG Sodium ABG Chloride 113.0 H ABG Glucose 155 H Oxyhemoglobin Carboxyhemoglobin 0.3 L Sodium Potassium Chloride Carbon Dioxide BUN Creatinine Glucose POC Glucose 164 H Calcium Magnesium Ferritin AST ALT Lactate Dehydrogenase Total Creatine Kinase Troponin T C-Reactive Protein Total Protein Albumin Triglycerides HDL Cholesterol Arterial Blood Glucose 155 H Arterial Blood Ionized Calcium 4.4 L Urine WBC (Auto) Vancomycin Trough Salicylates Acetaminophen Coronavirus (PCR) 07/20/21 07/20/21 07/21/21 11:40 17:48 03:31 WBC RBC Hgb Hct RDW Lymph % (Auto) Lymph # (Auto) Seg Neutrophils % Seg Neuts % (Manual) Lymphocytes % (Manual) Nucleated RBC % Seg Neutrophils # Seg Neutrophils # Man Lymphocytes # (Manual) Monocytes # (Manual) PT INR D-Dimer ABG pH POC ABG pCO2 POC ABG pO2 ABG pO2 ABG O2 Saturation ABG Base Excess ABG Hemoglobin ABG Oxyhemoglobin ABG Sodium ABG Chloride ABG Glucose Oxyhemoglobin Carboxyhemoglobin Sodium Potassium Chloride Carbon Dioxide BUN Creatinine Glucose POC Glucose 137 H 143 H 157 H Calcium Magnesium Ferritin AST ALT Lactate Dehydrogenase Total Creatine Kinase Troponin T C-Reactive Protein Total Protein Albumin Triglycerides HDL Cholesterol Arterial Blood Glucose Arterial Blood Ionized Calcium Urine WBC (Auto) Vancomycin Trough Salicylates Acetaminophen Coronavirus (PCR) 07/21/21 07/21/21 07/21/21 04:30 04:52 05:21 WBC RBC Hgb Hct RDW Lymph % (Auto) Lymph # (Auto) Seg Neutrophils % Seg Neuts % (Manual) Lymphocytes % (Manual) Nucleated RBC % Seg Neutrophils # Seg Neutrophils # Man Lymphocytes # (Manual) Monocytes # (Manual) PT INR D-Dimer ABG pH POC ABG pCO2 31.7 L POC ABG pO2 77.6 L ABG pO2 ABG O2 Saturation ABG Base Excess ABG Hemoglobin 10.2 L ABG Oxyhemoglobin ABG Sodium 148.3 H ABG Chloride 120.0 H ABG Glucose 168 H Oxyhemoglobin Carboxyhemoglobin 0.2 L Sodium 150 H Potassium Chloride 115.7 H Carbon Dioxide BUN 49 H Creatinine 1.4 H Glucose 185 H POC Glucose 170 H Calcium 8.3 L Magnesium Ferritin AST ALT Lactate Dehydrogenase Total Creatine Kinase Troponin T C-Reactive Protein Total Protein Albumin 3.0 L Triglycerides HDL Cholesterol Arterial Blood Glucose 168 H Arterial Blood Ionized Calcium 4.4 L Urine WBC (Auto) Vancomycin Trough Salicylates Acetaminophen Coronavirus (PCR) 07/21/21 07/21/21 07/21/21 11:17 17:26 23:40 WBC RBC Hgb Hct RDW Lymph % (Auto) Lymph # (Auto) Seg Neutrophils % Seg Neuts % (Manual) Lymphocytes % (Manual) Nucleated RBC % Seg Neutrophils # Seg Neutrophils # Man Lymphocytes # (Manual) Monocytes # (Manual) PT INR D-Dimer ABG pH POC ABG pCO2 POC ABG pO2 ABG pO2 ABG O2 Saturation ABG Base Excess ABG Hemoglobin ABG Oxyhemoglobin ABG Sodium ABG Chloride ABG Glucose Oxyhemoglobin Carboxyhemoglobin Sodium Potassium Chloride Carbon Dioxide BUN Creatinine Glucose POC Glucose 176 H 184 H 161 H Calcium Magnesium Ferritin AST ALT Lactate Dehydrogenase Total Creatine Kinase Troponin T C-Reactive Protein Total Protein Albumin Triglycerides HDL Cholesterol Arterial Blood Glucose Arterial Blood Ionized Calcium Urine WBC (Auto) Vancomycin Trough Salicylates Acetaminophen Coronavirus (PCR) 07/22/21 07/22/21 07/22/21 03:30 04:39 05:29 WBC RBC Hgb Hct RDW Lymph % (Auto) Lymph # (Auto) Seg Neutrophils % Seg Neuts % (Manual) Lymphocytes % (Manual) Nucleated RBC % Seg Neutrophils # Seg Neutrophils # Man Lymphocytes # (Manual) Monocytes # (Manual) PT INR D-Dimer ABG pH POC ABG pCO2 POC ABG pO2 67.4 L ABG pO2 ABG O2 Saturation ABG Base Excess ABG Hemoglobin 10.4 L ABG Oxyhemoglobin 91.8 L ABG Sodium 118.4 L ABG Chloride 114.0 H ABG Glucose 189 H Oxyhemoglobin Carboxyhemoglobin 0.2 L Sodium 146 H Potassium Chloride 112.8 H Carbon Dioxide 21 L BUN 46 H Creatinine Glucose 191 H POC Glucose 191 H Calcium Magnesium Ferritin AST ALT Lactate Dehydrogenase Total Creatine Kinase Troponin T C-Reactive Protein Total Protein Albumin 2.9 L Triglycerides HDL Cholesterol Arterial Blood Glucose 189 H Arterial Blood Ionized Calcium 4.5 L Urine WBC (Auto) Vancomycin Trough Salicylates Acetaminophen Coronavirus (PCR) 07/22/21 07/22/21 07/22/21 12:17 17:54 23:34 WBC RBC Hgb Hct RDW Lymph % (Auto) Lymph # (Auto) Seg Neutrophils % Seg Neuts % (Manual) Lymphocytes % (Manual) Nucleated RBC % Seg Neutrophils # Seg Neutrophils # Man Lymphocytes # (Manual) Monocytes # (Manual) PT INR D-Dimer ABG pH POC ABG pCO2 POC ABG pO2 ABG pO2 ABG O2 Saturation ABG Base Excess ABG Hemoglobin ABG Oxyhemoglobin ABG Sodium ABG Chloride ABG Glucose Oxyhemoglobin Carboxyhemoglobin Sodium Potassium Chloride Carbon Dioxide BUN Creatinine Glucose POC Glucose 206 H 213 H 164 H Calcium Magnesium Ferritin AST ALT Lactate Dehydrogenase Total Creatine Kinase Troponin T C-Reactive Protein Total Protein Albumin Triglycerides HDL Cholesterol Arterial Blood Glucose Arterial Blood Ionized Calcium Urine WBC (Auto) Vancomycin Trough Salicylates Acetaminophen Coronavirus (PCR) 07/23/21 07/23/21 07/23/21 03:30 05:21 09:02 WBC RBC Hgb Hct RDW Lymph % (Auto) Lymph # (Auto) Seg Neutrophils % Seg Neuts % (Manual) Lymphocytes % (Manual) Nucleated RBC % Seg Neutrophils # Seg Neutrophils # Man Lymphocytes # (Manual) Monocytes # (Manual) PT INR D-Dimer ABG pH POC ABG pCO2 POC ABG pO2 70.9 L ABG pO2 ABG O2 Saturation ABG Base Excess ABG Hemoglobin 10.9 L ABG Oxyhemoglobin 92.9 L ABG Sodium 130.2 L ABG Chloride 109.0 H ABG Glucose 177 H Oxyhemoglobin Carboxyhemoglobin 0.1 L Sodium Potassium 5.1 H Chloride Carbon Dioxide BUN 32 H Creatinine Glucose 200 H POC Glucose 191 H Calcium Magnesium Ferritin AST ALT Lactate Dehydrogenase Total Creatine Kinase Troponin T C-Reactive Protein Total Protein Albumin Triglycerides HDL Cholesterol Arterial Blood Glucose 177 H Arterial Blood Ionized Calcium 4.3 L Urine WBC (Auto) Vancomycin Trough Salicylates Acetaminophen Coronavirus (PCR) 07/23/21 07/23/21 07/23/21 09:02 11:34 17:52 WBC 13.8 H RBC Hgb Hct RDW 15.7 H Lymph % (Auto) Lymph # (Auto) Seg Neutrophils % Seg Neuts % (Manual) Lymphocytes % (Manual) Nucleated RBC % Seg Neutrophils # Seg Neutrophils # Man Lymphocytes # (Manual) Monocytes # (Manual) PT INR D-Dimer ABG pH POC ABG pCO2 POC ABG pO2 ABG pO2 ABG O2 Saturation ABG Base Excess ABG Hemoglobin ABG Oxyhemoglobin ABG Sodium ABG Chloride ABG Glucose Oxyhemoglobin Carboxyhemoglobin Sodium Potassium Chloride Carbon Dioxide BUN Creatinine Glucose POC Glucose 208 H 158 H Calcium Magnesium Ferritin AST ALT Lactate Dehydrogenase Total Creatine Kinase Troponin T C-Reactive Protein Total Protein Albumin Triglycerides HDL Cholesterol Arterial Blood Glucose Arterial Blood Ionized Calcium Urine WBC (Auto) Vancomycin Trough Salicylates Acetaminophen Coronavirus (PCR) 07/23/21 07/24/21 07/24/21 23:28 03:06 05:01 WBC RBC Hgb Hct RDW Lymph % (Auto) Lymph # (Auto) Seg Neutrophils % Seg Neuts % (Manual) Lymphocytes % (Manual) Nucleated RBC % Seg Neutrophils # Seg Neutrophils # Man Lymphocytes # (Manual) Monocytes # (Manual) PT INR D-Dimer ABG pH POC ABG pCO2 POC ABG pO2 51.1 L ABG pO2 ABG O2 Saturation ABG Base Excess ABG Hemoglobin ABG Oxyhemoglobin 85.0 L ABG Sodium 135.5 L ABG Chloride ABG Glucose 131 H Oxyhemoglobin Carboxyhemoglobin 0.4 L Sodium Potassium Chloride Carbon Dioxide BUN 29 H Creatinine Glucose 132 H POC Glucose 142 H Calcium 7.8 L Magnesium Ferritin AST ALT Lactate Dehydrogenase Total Creatine Kinase Troponin T C-Reactive Protein Total Protein Albumin Triglycerides HDL Cholesterol Arterial Blood Glucose 131 H Arterial Blood Ionized Calcium 4.5 L Urine WBC (Auto) Vancomycin Trough Salicylates Acetaminophen Coronavirus (PCR) 07/24/21 07/24/21 07/24/21 05:06 11:38 17:26 WBC RBC Hgb Hct RDW Lymph % (Auto) Lymph # (Auto) Seg Neutrophils % Seg Neuts % (Manual) Lymphocytes % (Manual) Nucleated RBC % Seg Neutrophils # Seg Neutrophils # Man Lymphocytes # (Manual) Monocytes # (Manual) PT INR D-Dimer ABG pH POC ABG pCO2 POC ABG pO2 ABG pO2 ABG O2 Saturation ABG Base Excess ABG Hemoglobin ABG Oxyhemoglobin ABG Sodium ABG Chloride ABG Glucose Oxyhemoglobin Carboxyhemoglobin Sodium Potassium Chloride Carbon Dioxide BUN Creatinine Glucose POC Glucose 125 H 215 H 173 H Calcium Magnesium Ferritin AST ALT Lactate Dehydrogenase Total Creatine Kinase Troponin T C-Reactive Protein Total Protein Albumin Triglycerides HDL Cholesterol Arterial Blood Glucose Arterial Blood Ionized Calcium Urine WBC (Auto) Vancomycin Trough Salicylates Acetaminophen Coronavirus (PCR) 07/24/21 07/25/21 07/25/21 23:23 03:33 04:28 WBC RBC Hgb Hct RDW Lymph % (Auto) Lymph # (Auto) Seg Neutrophils % Seg Neuts % (Manual) Lymphocytes % (Manual) Nucleated RBC % Seg Neutrophils # Seg Neutrophils # Man Lymphocytes # (Manual) Monocytes # (Manual) PT INR D-Dimer ABG pH POC ABG pCO2 POC ABG pO2 ABG pO2 ABG O2 Saturation ABG Base Excess ABG Hemoglobin ABG Oxyhemoglobin ABG Sodium 135.6 L ABG Chloride ABG Glucose 174 H Oxyhemoglobin Carboxyhemoglobin 0.1 L Sodium Potassium 5.1 H Chloride 107.7 H Carbon Dioxide BUN 29 H Creatinine Glucose 164 H POC Glucose 133 H Calcium 7.3 L Magnesium Ferritin AST ALT Lactate Dehydrogenase Total Creatine Kinase Troponin T C-Reactive Protein Total Protein Albumin Triglycerides HDL Cholesterol Arterial Blood Glucose 174 H Arterial Blood Ionized Calcium Urine WBC (Auto) Vancomycin Trough Salicylates Acetaminophen Coronavirus (PCR) 09/04/0907/25/21 07/25/21 04:28 04:28 05:17 WBC 14.9 H RBC Hgb Hct RDW 15.6 H Lymph % (Auto) Lymph # (Auto) Seg Neutrophils % Seg Neuts % (Manual) 92.0 H Lymphocytes % (Manual) 2.0 L Nucleated RBC % Seg Neutrophils # Seg Neutrophils # Man 13.7 H Lymphocytes # (Manual) 0.3 L Monocytes # (Manual) PT INR D-Dimer ABG pH POC ABG pCO2 POC ABG pO2 ABG pO2 ABG O2 Saturation ABG Base Excess ABG Hemoglobin ABG Oxyhemoglobin ABG Sodium ABG Chloride ABG Glucose Oxyhemoglobin Carboxyhemoglobin Sodium Potassium Chloride Carbon Dioxide BUN Creatinine Glucose POC Glucose 173 H Calcium Magnesium Ferritin AST ALT Lactate Dehydrogenase Total Creatine Kinase Troponin T C-Reactive Protein Total Protein Albumin Triglycerides HDL Cholesterol Arterial Blood Glucose Arterial Blood Ionized Calcium Urine WBC (Auto) Vancomycin Trough 22.9 H Salicylates Acetaminophen Coronavirus (PCR) 07/25/21 07/25/21 07/25/21 11:29 17:00 23:46 WBC RBC Hgb Hct RDW Lymph % (Auto) Lymph # (Auto) Seg Neutrophils % Seg Neuts % (Manual) Lymphocytes % (Manual) Nucleated RBC % Seg Neutrophils # Seg Neutrophils # Man Lymphocytes # (Manual) Monocytes # (Manual) PT INR D-Dimer ABG pH POC ABG pCO2 POC ABG pO2 ABG pO2 ABG O2 Saturation ABG Base Excess ABG Hemoglobin ABG Oxyhemoglobin ABG Sodium ABG Chloride ABG Glucose Oxyhemoglobin Carboxyhemoglobin Sodium Potassium Chloride Carbon Dioxide BUN Creatinine Glucose POC Glucose 191 H 184 H 192 H Calcium Magnesium Ferritin AST ALT Lactate Dehydrogenase Total Creatine Kinase Troponin T C-Reactive Protein Total Protein Albumin Triglycerides HDL Cholesterol Arterial Blood Glucose Arterial Blood Ionized Calcium Urine WBC (Auto) Vancomycin Trough Salicylates Acetaminophen Coronavirus (PCR) 07/26/21 07/26/21 07/26/21 03:17 05:33 06:07 WBC 18.0 H RBC Hgb Hct RDW 15.6 H Lymph % (Auto) Lymph # (Auto) Seg Neutrophils % Seg Neuts % (Manual) 87.0 H Lymphocytes % (Manual) 5.0 L Nucleated RBC % Seg Neutrophils # Seg Neutrophils # Man 15.7 H Lymphocytes # (Manual) 0.9 L Monocytes # (Manual) 1.1 H PT INR D-Dimer ABG pH POC ABG pCO2 POC ABG pO2 73.7 L ABG pO2 ABG O2 Saturation ABG Base Excess ABG Hemoglobin 11.8 L ABG Oxyhemoglobin 93.6 L ABG Sodium ABG Chloride ABG Glucose 183 H Oxyhemoglobin Carboxyhemoglobin 0.2 L Sodium Potassium Chloride Carbon Dioxide BUN Creatinine Glucose POC Glucose 172 H Calcium Magnesium Ferritin AST ALT Lactate Dehydrogenase Total Creatine Kinase Troponin T C-Reactive Protein Total Protein Albumin Triglycerides HDL Cholesterol Arterial Blood Glucose 183 H Arterial Blood Ionized Calcium Urine WBC (Auto) Vancomycin Trough Salicylates Acetaminophen Coronavirus (PCR) 07/26/21 07/26/21 07/26/21 06:07 11:46 13:53 WBC RBC Hgb Hct RDW Lymph % (Auto) Lymph # (Auto) Seg Neutrophils % Seg Neuts % (Manual) Lymphocytes % (Manual) Nucleated RBC % Seg Neutrophils # Seg Neutrophils # Man Lymphocytes # (Manual) Monocytes # (Manual) PT INR D-Dimer 6992.45 H ABG pH POC ABG pCO2 POC ABG pO2 ABG pO2 ABG O2 Saturation ABG Base Excess ABG Hemoglobin ABG Oxyhemoglobin ABG Sodium ABG Chloride ABG Glucose Oxyhemoglobin Carboxyhemoglobin Sodium Potassium 5.4 H Chloride Carbon Dioxide BUN 33 H Creatinine Glucose 155 H POC Glucose 142 H Calcium 8.3 L Magnesium Ferritin AST ALT Lactate Dehydrogenase Total Creatine Kinase Troponin T C-Reactive Protein Total Protein Albumin Triglycerides HDL Cholesterol Arterial Blood Glucose Arterial Blood Ionized Calcium Urine WBC (Auto) Vancomycin Trough Salicylates Acetaminophen Coronavirus (PCR) 07/26/21 07/26/21 07/26/21 13:53 14:16 17:29 WBC RBC Hgb Hct RDW Lymph % (Auto) Lymph # (Auto) Seg Neutrophils % Seg Neuts % (Manual) Lymphocytes % (Manual) Nucleated RBC % Seg Neutrophils # Seg Neutrophils # Man Lymphocytes # (Manual) Monocytes # (Manual) PT INR D-Dimer ABG pH POC ABG pCO2 POC ABG pO2 ABG pO2 ABG O2 Saturation ABG Base Excess ABG Hemoglobin ABG Oxyhemoglobin ABG Sodium ABG Chloride ABG Glucose Oxyhemoglobin Carboxyhemoglobin Sodium Potassium Chloride Carbon Dioxide BUN Creatinine Glucose 200 H POC Glucose 185 H Calcium Magnesium Ferritin 348.4 H AST ALT Lactate Dehydrogenase 515 H Total Creatine Kinase Troponin T C-Reactive Protein Total Protein Albumin Triglycerides HDL Cholesterol Arterial Blood Glucose Arterial Blood Ionized Calcium Urine WBC (Auto) Vancomycin Trough Salicylates Acetaminophen Coronavirus (PCR) 07/26/21 07/27/21 07/27/21 23:30 04:00 04:48 WBC 16.5 H RBC Hgb Hct RDW Lymph % (Auto) Lymph # (Auto) Seg Neutrophils % Seg Neuts % (Manual) 92.0 H Lymphocytes % (Manual) 3.0 L Nucleated RBC % 1.0 H Seg Neutrophils # Seg Neutrophils # Man 15.2 H Lymphocytes # (Manual) 0.5 L Monocytes # (Manual) PT INR D-Dimer ABG pH 7.481 H POC ABG pCO2 POC ABG pO2 70.4 L ABG pO2 ABG O2 Saturation ABG Base Excess ABG Hemoglobin 11.6 L ABG Oxyhemoglobin ABG Sodium 131.9 L ABG Chloride ABG Glucose 207 H Oxyhemoglobin Carboxyhemoglobin Sodium Potassium Chloride Carbon Dioxide BUN Creatinine Glucose POC Glucose 186 H Calcium Magnesium Ferritin AST ALT Lactate Dehydrogenase Total Creatine Kinase Troponin T C-Reactive Protein Total Protein Albumin Triglycerides HDL Cholesterol Arterial Blood Glucose 207 H Arterial Blood Ionized Calcium Urine WBC (Auto) Vancomycin Trough Salicylates Acetaminophen Coronavirus (PCR) 07/27/21 07/27/21 07/27/21 04:48 05:04 11:36 WBC RBC Hgb Hct RDW Lymph % (Auto) Lymph # (Auto) Seg Neutrophils % Seg Neuts % (Manual) Lymphocytes % (Manual) Nucleated RBC % Seg Neutrophils # Seg Neutrophils # Man Lymphocytes # (Manual) Monocytes # (Manual) PT INR D-Dimer ABG pH POC ABG pCO2 POC ABG pO2 ABG pO2 ABG O2 Saturation ABG Base Excess ABG Hemoglobin ABG Oxyhemoglobin ABG Sodium ABG Chloride ABG Glucose Oxyhemoglobin Carboxyhemoglobin Sodium Potassium Chloride Carbon Dioxide BUN 35 H Creatinine Glucose 216 H POC Glucose 201 H 142 H Calcium Magnesium Ferritin AST ALT Lactate Dehydrogenase Total Creatine Kinase Troponin T C-Reactive Protein Total Protein Albumin Triglycerides HDL Cholesterol Arterial Blood Glucose Arterial Blood Ionized Calcium Urine WBC (Auto) Vancomycin Trough Salicylates Acetaminophen Coronavirus (PCR) 07/27/21 07/27/21 07/28/21 18:14 22:03 04:00 WBC RBC Hgb Hct RDW Lymph % (Auto) Lymph # (Auto) Seg Neutrophils % Seg Neuts % (Manual) Lymphocytes % (Manual) Nucleated RBC % Seg Neutrophils # Seg Neutrophils # Man Lymphocytes # (Manual) Monocytes # (Manual) PT INR D-Dimer ABG pH 7.491 H POC ABG pCO2 POC ABG pO2 109.2 H ABG pO2 ABG O2 Saturation ABG Base Excess ABG Hemoglobin ABG Oxyhemoglobin ABG Sodium 133.9 L ABG Chloride ABG Glucose 163 H Oxyhemoglobin Carboxyhemoglobin Sodium Potassium Chloride Carbon Dioxide BUN Creatinine Glucose POC Glucose 166 H 149 H Calcium Magnesium Ferritin AST ALT Lactate Dehydrogenase Total Creatine Kinase Troponin T C-Reactive Protein Total Protein Albumin Triglycerides HDL Cholesterol Arterial Blood Glucose 163 H Arterial Blood Ionized Calcium Urine WBC (Auto) Vancomycin Trough Salicylates Acetaminophen Coronavirus (PCR) 07/28/21 07/28/21 07/28/21 04:10 04:10 04:10 WBC RBC Hgb Hct RDW Lymph % (Auto) Lymph # (Auto) Seg Neutrophils % Seg Neuts % (Manual) Lymphocytes % (Manual) Nucleated RBC % Seg Neutrophils # Seg Neutrophils # Man Lymphocytes # (Manual) Monocytes # (Manual) PT INR D-Dimer 5318.85 H ABG pH POC ABG pCO2 POC ABG pO2 ABG pO2 ABG O2 Saturation ABG Base Excess ABG Hemoglobin ABG Oxyhemoglobin ABG Sodium ABG Chloride ABG Glucose Oxyhemoglobin Carboxyhemoglobin Sodium Potassium Chloride Carbon Dioxide 31 H BUN 35 H Creatinine Glucose 187 H POC Glucose Calcium Magnesium Ferritin 324.6 H AST ALT Lactate Dehydrogenase 414 H Total Creatine Kinase Troponin T C-Reactive Protein Total Protein Albumin Triglycerides HDL Cholesterol Arterial Blood Glucose Arterial Blood Ionized Calcium Urine WBC (Auto) Vancomycin Trough Salicylates Acetaminophen Coronavirus (PCR) 07/28/21 07/28/21 07/28/21 04:10 05:25 12:10 WBC 13.7 H RBC Hgb Hct RDW Lymph % (Auto) Lymph # (Auto) Seg Neutrophils % Seg Neuts % (Manual) Lymphocytes % (Manual) Nucleated RBC % Seg Neutrophils # Seg Neutrophils # Man Lymphocytes # (Manual) Monocytes # (Manual) PT INR D-Dimer ABG pH POC ABG pCO2 POC ABG pO2 ABG pO2 ABG O2 Saturation ABG Base Excess ABG Hemoglobin ABG Oxyhemoglobin ABG Sodium ABG Chloride ABG Glucose Oxyhemoglobin Carboxyhemoglobin Sodium Potassium Chloride Carbon Dioxide BUN Creatinine Glucose POC Glucose 152 H 162 H Calcium Magnesium Ferritin AST ALT Lactate Dehydrogenase Total Creatine Kinase Troponin T C-Reactive Protein Total Protein Albumin Triglycerides HDL Cholesterol Arterial Blood Glucose Arterial Blood Ionized Calcium Urine WBC (Auto) Vancomycin Trough Salicylates Acetaminophen Coronavirus (PCR) 07/28/21 07/28/21 07/29/21 17:44 21:58 04:00 WBC RBC Hgb Hct RDW Lymph % (Auto) Lymph # (Auto) Seg Neutrophils % Seg Neuts % (Manual) Lymphocytes % (Manual) Nucleated RBC % Seg Neutrophils # Seg Neutrophils # Man Lymphocytes # (Manual) Monocytes # (Manual) PT INR D-Dimer ABG pH 7.510 H POC ABG pCO2 POC ABG pO2 113.0 H ABG pO2 ABG O2 Saturation ABG Base Excess ABG Hemoglobin 11.1 L ABG Oxyhemoglobin ABG Sodium 135.0 L ABG Chloride ABG Glucose 162 H Oxyhemoglobin Carboxyhemoglobin 0.3 L Sodium Potassium Chloride Carbon Dioxide BUN Creatinine Glucose POC Glucose 152 H 139 H Calcium Magnesium Ferritin AST ALT Lactate Dehydrogenase Total Creatine Kinase Troponin T C-Reactive Protein Total Protein Albumin Triglycerides HDL Cholesterol Arterial Blood Glucose 162 H Arterial Blood Ionized Calcium 4.4 L Urine WBC (Auto) Vancomycin Trough Salicylates Acetaminophen Coronavirus (PCR) 07/29/21 07/29/21 07/29/21 04:35 04:35 05:47 WBC 12.0 H RBC Hgb Hct RDW Lymph % (Auto) Lymph # (Auto) Seg Neutrophils % Seg Neuts % (Manual) Lymphocytes % (Manual) Nucleated RBC % Seg Neutrophils # Seg Neutrophils # Man Lymphocytes # (Manual) Monocytes # (Manual) PT INR D-Dimer ABG pH POC ABG pCO2 POC ABG pO2 ABG pO2 ABG O2 Saturation ABG Base Excess ABG Hemoglobin ABG Oxyhemoglobin ABG Sodium ABG Chloride ABG Glucose Oxyhemoglobin Carboxyhemoglobin Sodium Potassium Chloride Carbon Dioxide BUN 34 H Creatinine Glucose 170 H POC Glucose 153 H Calcium Magnesium Ferritin AST ALT Lactate Dehydrogenase Total Creatine Kinase Troponin T C-Reactive Protein Total Protein Albumin Triglycerides HDL Cholesterol Arterial Blood Glucose Arterial Blood Ionized Calcium Urine WBC (Auto) Vancomycin Trough Salicylates Acetaminophen Coronavirus (PCR) 07/29/21 07/29/21 07/29/21 11:25 16:29 23:39 WBC RBC Hgb Hct RDW Lymph % (Auto) Lymph # (Auto) Seg Neutrophils % Seg Neuts % (Manual) Lymphocytes % (Manual) Nucleated RBC % Seg Neutrophils # Seg Neutrophils # Man Lymphocytes # (Manual) Monocytes # (Manual) PT INR D-Dimer ABG pH POC ABG pCO2 POC ABG pO2 ABG pO2 ABG O2 Saturation ABG Base Excess ABG Hemoglobin ABG Oxyhemoglobin ABG Sodium ABG Chloride ABG Glucose Oxyhemoglobin Carboxyhemoglobin Sodium Potassium Chloride Carbon Dioxide BUN Creatinine Glucose POC Glucose 142 H 167 H 141 H Calcium Magnesium Ferritin AST ALT Lactate Dehydrogenase Total Creatine Kinase Troponin T C-Reactive Protein Total Protein Albumin Triglycerides HDL Cholesterol Arterial Blood Glucose Arterial Blood Ionized Calcium Urine WBC (Auto) Vancomycin Trough Salicylates Acetaminophen Coronavirus (PCR) 07/30/21 07/30/21 07/30/21 05:00 05:00 05:00 WBC RBC Hgb Hct RDW Lymph % (Auto) Lymph # (Auto) Seg Neutrophils % Seg Neuts % (Manual) Lymphocytes % (Manual) Nucleated RBC % Seg Neutrophils # Seg Neutrophils # Man Lymphocytes # (Manual) Monocytes # (Manual) PT INR D-Dimer 1818.72 H ABG pH POC ABG pCO2 POC ABG pO2 ABG pO2 ABG O2 Saturation ABG Base Excess ABG Hemoglobin ABG Oxyhemoglobin ABG Sodium ABG Chloride ABG Glucose Oxyhemoglobin Carboxyhemoglobin Sodium Potassium Chloride Carbon Dioxide BUN 34 H Creatinine Glucose 184 H POC Glucose Calcium Magnesium Ferritin 242.1 H AST ALT Lactate Dehydrogenase 304 H Total Creatine Kinase Troponin T C-Reactive Protein Total Protein Albumin Triglycerides HDL Cholesterol Arterial Blood Glucose Arterial Blood Ionized Calcium Urine WBC (Auto) Vancomycin Trough Salicylates Acetaminophen Coronavirus (PCR) 07/30/21 07/30/21 07/30/21 05:00 06:08 11:41 WBC RBC 3.45 L Hgb 10.0 L Hct 29.9 L RDW Lymph % (Auto) Lymph # (Auto) Seg Neutrophils % Seg Neuts % (Manual) Lymphocytes % (Manual) Nucleated RBC % Seg Neutrophils # Seg Neutrophils # Man Lymphocytes # (Manual) Monocytes # (Manual) PT INR D-Dimer ABG pH POC ABG pCO2 POC ABG pO2 ABG pO2 ABG O2 Saturation ABG Base Excess ABG Hemoglobin ABG Oxyhemoglobin ABG Sodium ABG Chloride ABG Glucose Oxyhemoglobin Carboxyhemoglobin Sodium Potassium Chloride Carbon Dioxide BUN Creatinine Glucose POC Glucose 171 H 182 H Calcium Magnesium Ferritin AST ALT Lactate Dehydrogenase Total Creatine Kinase Troponin T C-Reactive Protein Total Protein Albumin Triglycerides HDL Cholesterol Arterial Blood Glucose Arterial Blood Ionized Calcium Urine WBC (Auto) Vancomycin Trough Salicylates Acetaminophen Coronavirus (PCR) 07/30/21 07/30/21 07/30/21 17:28 22:22 23:43 WBC RBC Hgb Hct RDW Lymph % (Auto) Lymph # (Auto) Seg Neutrophils % Seg Neuts % (Manual) Lymphocytes % (Manual) Nucleated RBC % Seg Neutrophils # Seg Neutrophils # Man Lymphocytes # (Manual) Monocytes # (Manual) PT INR D-Dimer ABG pH POC ABG pCO2 POC ABG pO2 ABG pO2 ABG O2 Saturation ABG Base Excess ABG Hemoglobin ABG Oxyhemoglobin ABG Sodium ABG Chloride ABG Glucose Oxyhemoglobin Carboxyhemoglobin Sodium Potassium Chloride Carbon Dioxide BUN Creatinine Glucose POC Glucose 176 H 150 H 161 H Calcium Magnesium Ferritin AST ALT Lactate Dehydrogenase Total Creatine Kinase Troponin T C-Reactive Protein Total Protein Albumin Triglycerides HDL Cholesterol Arterial Blood Glucose Arterial Blood Ionized Calcium Urine WBC (Auto) Vancomycin Trough Salicylates Acetaminophen Coronavirus (PCR) 07/31/21 07/31/21 07/31/21 04:00 05:25 05:50 WBC 11.5 H RBC Hgb Hct RDW Lymph % (Auto) Lymph # (Auto) Seg Neutrophils % Seg Neuts % (Manual) Lymphocytes % (Manual) Nucleated RBC % Seg Neutrophils # Seg Neutrophils # Man Lymphocytes # (Manual) Monocytes # (Manual) PT INR D-Dimer ABG pH POC ABG pCO2 POC ABG pO2 ABG pO2 ABG O2 Saturation ABG Base Excess ABG Hemoglobin 11.5 L ABG Oxyhemoglobin ABG Sodium ABG Chloride ABG Glucose 143 H Oxyhemoglobin Carboxyhemoglobin Sodium Potassium Chloride Carbon Dioxide BUN Creatinine Glucose POC Glucose 150 H Calcium Magnesium Ferritin AST ALT Lactate Dehydrogenase Total Creatine Kinase Troponin T C-Reactive Protein Total Protein Albumin Triglycerides HDL Cholesterol Arterial Blood Glucose 143 H Arterial Blood Ionized Calcium Urine WBC (Auto) Vancomycin Trough Salicylates Acetaminophen Coronavirus (PCR) 07/31/21 07/31/21 07/31/21 05:50 11:36 17:30 WBC RBC Hgb Hct RDW Lymph % (Auto) Lymph # (Auto) Seg Neutrophils % Seg Neuts % (Manual) Lymphocytes % (Manual) Nucleated RBC % Seg Neutrophils # Seg Neutrophils # Man Lymphocytes # (Manual) Monocytes # (Manual) PT INR D-Dimer ABG pH POC ABG pCO2 POC ABG pO2 ABG pO2 ABG O2 Saturation ABG Base Excess ABG Hemoglobin ABG Oxyhemoglobin ABG Sodium ABG Chloride ABG Glucose Oxyhemoglobin Carboxyhemoglobin Sodium Potassium Chloride Carbon Dioxide BUN 32 H Creatinine Glucose 158 H POC Glucose 179 H 115 H Calcium Magnesium Ferritin AST ALT Lactate Dehydrogenase Total Creatine Kinase Troponin T C-Reactive Protein Total Protein Albumin Triglycerides HDL Cholesterol Arterial Blood Glucose Arterial Blood Ionized Calcium Urine WBC (Auto) Vancomycin Trough Salicylates Acetaminophen Coronavirus (PCR) 07/31/21 08/01/21 08/01/21 22:36 04:00 04:58 WBC RBC Hgb Hct RDW Lymph % (Auto) Lymph # (Auto) Seg Neutrophils % Seg Neuts % (Manual) Lymphocytes % (Manual) Nucleated RBC % Seg Neutrophils # Seg Neutrophils # Man Lymphocytes # (Manual) Monocytes # (Manual) PT INR D-Dimer ABG pH 7.477 H POC ABG pCO2 POC ABG pO2 ABG pO2 ABG O2 Saturation ABG Base Excess ABG Hemoglobin 11.4 L ABG Oxyhemoglobin ABG Sodium 134.4 L ABG Chloride ABG Glucose 173 H Oxyhemoglobin Carboxyhemoglobin 0.3 L Sodium Potassium Chloride Carbon Dioxide BUN Creatinine Glucose POC Glucose 150 H 153 H Calcium Magnesium Ferritin AST ALT Lactate Dehydrogenase Total Creatine Kinase Troponin T C-Reactive Protein Total Protein Albumin Triglycerides HDL Cholesterol Arterial Blood Glucose 173 H Arterial Blood Ionized Calcium Urine WBC (Auto) Vancomycin Trough Salicylates Acetaminophen Coronavirus (PCR) 08/01/21 08/01/21 08/01/21 06:00 06:00 06:00 WBC RBC Hgb Hct RDW Lymph % (Auto) Lymph # (Auto) Seg Neutrophils % Seg Neuts % (Manual) Lymphocytes % (Manual) Nucleated RBC % Seg Neutrophils # Seg Neutrophils # Man Lymphocytes # (Manual) Monocytes # (Manual) PT INR D-Dimer 1503.43 H ABG pH POC ABG pCO2 POC ABG pO2 ABG pO2 ABG O2 Saturation ABG Base Excess ABG Hemoglobin ABG Oxyhemoglobin ABG Sodium ABG Chloride ABG Glucose Oxyhemoglobin Carboxyhemoglobin Sodium 136 L Potassium Chloride Carbon Dioxide 31 H BUN 28 H Creatinine 0.5 L Glucose 154 H POC Glucose Calcium Magnesium Ferritin 244.0 H AST ALT Lactate Dehydrogenase 369 H Total Creatine Kinase Troponin T C-Reactive Protein Total Protein Albumin Triglycerides HDL Cholesterol Arterial Blood Glucose Arterial Blood Ionized Calcium Urine WBC (Auto) Vancomycin Trough Salicylates Acetaminophen Coronavirus (PCR) 08/01/21 08/01/21 08/01/21 12:32 18:30 23:23 WBC RBC Hgb Hct RDW Lymph % (Auto) Lymph # (Auto) Seg Neutrophils % Seg Neuts % (Manual) Lymphocytes % (Manual) Nucleated RBC % Seg Neutrophils # Seg Neutrophils # Man Lymphocytes # (Manual) Monocytes # (Manual) PT INR D-Dimer ABG pH POC ABG pCO2 POC ABG pO2 ABG pO2 ABG O2 Saturation ABG Base Excess ABG Hemoglobin ABG Oxyhemoglobin ABG Sodium ABG Chloride ABG Glucose Oxyhemoglobin Carboxyhemoglobin Sodium Potassium Chloride Carbon Dioxide BUN Creatinine Glucose POC Glucose 144 H 127 H 123 H Calcium Magnesium Ferritin AST ALT Lactate Dehydrogenase Total Creatine Kinase Troponin T C-Reactive Protein Total Protein Albumin Triglycerides HDL Cholesterol Arterial Blood Glucose Arterial Blood Ionized Calcium Urine WBC (Auto) Vancomycin Trough Salicylates Acetaminophen Coronavirus (PCR) 08/02/21 08/02/21 08/02/21 05:30 05:30 11:18 WBC 11.2 H RBC Hgb Hct RDW Lymph % (Auto) Lymph # (Auto) Seg Neutrophils % Seg Neuts % (Manual) Lymphocytes % (Manual) Nucleated RBC % Seg Neutrophils # Seg Neutrophils # Man Lymphocytes # (Manual) Monocytes # (Manual) PT INR D-Dimer ABG pH POC ABG pCO2 POC ABG pO2 ABG pO2 ABG O2 Saturation ABG Base Excess ABG Hemoglobin ABG Oxyhemoglobin ABG Sodium ABG Chloride ABG Glucose Oxyhemoglobin Carboxyhemoglobin Sodium Potassium Chloride Carbon Dioxide 33 H BUN 23 H Creatinine 0.5 L Glucose 108 H POC Glucose 131 H Calcium Magnesium Ferritin AST ALT Lactate Dehydrogenase Total Creatine Kinase Troponin T C-Reactive Protein Total Protein Albumin Triglycerides HDL Cholesterol Arterial Blood Glucose Arterial Blood Ionized Calcium Urine WBC (Auto) Vancomycin Trough Salicylates Acetaminophen Coronavirus (PCR) 08/02/21 08/03/21 08/03/21 17:22 05:33 05:33 WBC RBC Hgb Hct RDW Lymph % (Auto) Lymph # (Auto) Seg Neutrophils % Seg Neuts % (Manual) Lymphocytes % (Manual) Nucleated RBC % Seg Neutrophils # Seg Neutrophils # Man Lymphocytes # (Manual) Monocytes # (Manual) PT 15.4 H INR 1.17 H D-Dimer 1383.44 H ABG pH POC ABG pCO2 POC ABG pO2 ABG pO2 ABG O2 Saturation ABG Base Excess ABG Hemoglobin ABG Oxyhemoglobin ABG Sodium ABG Chloride ABG Glucose Oxyhemoglobin Carboxyhemoglobin Sodium Potassium Chloride Carbon Dioxide BUN Creatinine Glucose POC Glucose 127 H Calcium Magnesium Ferritin AST ALT Lactate Dehydrogenase 427 H Total Creatine Kinase Troponin T C-Reactive Protein Total Protein Albumin Triglycerides HDL Cholesterol Arterial Blood Glucose Arterial Blood Ionized Calcium Urine WBC (Auto) Vancomycin Trough Salicylates Acetaminophen Coronavirus (PCR) 08/03/21 08/03/21 08/03/21 05:33 05:33 05:33 WBC RBC Hgb Hct RDW 15.4 H Lymph % (Auto) Lymph # (Auto) Seg Neutrophils % Seg Neuts % (Manual) Lymphocytes % (Manual) Nucleated RBC % Seg Neutrophils # Seg Neutrophils # Man Lymphocytes # (Manual) Monocytes # (Manual) PT INR D-Dimer ABG pH POC ABG pCO2 POC ABG pO2 ABG pO2 ABG O2 Saturation ABG Base Excess ABG Hemoglobin ABG Oxyhemoglobin ABG Sodium ABG Chloride ABG Glucose Oxyhemoglobin Carboxyhemoglobin Sodium 136 L Potassium Chloride Carbon Dioxide BUN 28 H Creatinine Glucose 114 H POC Glucose Calcium Magnesium Ferritin 263.2 H AST ALT Lactate Dehydrogenase Total Creatine Kinase Troponin T C-Reactive Protein Total Protein Albumin Triglycerides HDL Cholesterol Arterial Blood Glucose Arterial Blood Ionized Calcium Urine WBC (Auto) Vancomycin Trough Salicylates Acetaminophen Coronavirus (PCR) 08/03/21 08/03/21 08/03/21 05:59 07:57 12:24 WBC RBC Hgb Hct RDW Lymph % (Auto) Lymph # (Auto) Seg Neutrophils % Seg Neuts % (Manual) Lymphocytes % (Manual) Nucleated RBC % Seg Neutrophils # Seg Neutrophils # Man Lymphocytes # (Manual) Monocytes # (Manual) PT INR D-Dimer ABG pH POC ABG pCO2 POC ABG pO2 ABG pO2 ABG O2 Saturation ABG Base Excess ABG Hemoglobin ABG Oxyhemoglobin ABG Sodium ABG Chloride ABG Glucose Oxyhemoglobin Carboxyhemoglobin Sodium Potassium Chloride Carbon Dioxide BUN Creatinine Glucose POC Glucose 110 H 124 H 125 H Calcium Magnesium Ferritin AST ALT Lactate Dehydrogenase Total Creatine Kinase Troponin T C-Reactive Protein Total Protein Albumin Triglycerides HDL Cholesterol Arterial Blood Glucose Arterial Blood Ionized Calcium Urine WBC (Auto) Vancomycin Trough Salicylates Acetaminophen Coronavirus (PCR) 08/03/21 08/03/21 08/04/21 16:00 23:22 07:11 WBC RBC Hgb Hct RDW Lymph % (Auto) Lymph # (Auto) Seg Neutrophils % Seg Neuts % (Manual) Lymphocytes % (Manual) Nucleated RBC % Seg Neutrophils # Seg Neutrophils # Man Lymphocytes # (Manual) Monocytes # (Manual) PT INR D-Dimer ABG pH POC ABG pCO2 POC ABG pO2 ABG pO2 ABG O2 Saturation ABG Base Excess ABG Hemoglobin ABG Oxyhemoglobin ABG Sodium ABG Chloride ABG Glucose Oxyhemoglobin Carboxyhemoglobin Sodium Potassium Chloride Carbon Dioxide BUN 29 H Creatinine Glucose 105 H POC Glucose 123 H 114 H Calcium Magnesium Ferritin AST 41 H ALT 79 H Lactate Dehydrogenase Total Creatine Kinase Troponin T C-Reactive Protein Total Protein Albumin 3.7 L Triglycerides HDL Cholesterol Arterial Blood Glucose Arterial Blood Ionized Calcium Urine WBC (Auto) Vancomycin Trough Salicylates Acetaminophen Coronavirus (PCR) 08/04/21 08/05/21 08/05/21 11:41 05:33 05:33 WBC RBC 3.55 L Hgb Hct RDW 18.1 H Lymph % (Auto) Lymph # (Auto) Seg Neutrophils % Seg Neuts % (Manual) Lymphocytes % (Manual) Nucleated RBC % Seg Neutrophils # Seg Neutrophils # Man Lymphocytes # (Manual) Monocytes # (Manual) PT INR D-Dimer ABG pH POC ABG pCO2 POC ABG pO2 ABG pO2 ABG O2 Saturation ABG Base Excess ABG Hemoglobin ABG Oxyhemoglobin ABG Sodium ABG Chloride ABG Glucose Oxyhemoglobin Carboxyhemoglobin Sodium Potassium Chloride Carbon Dioxide 20 L BUN 26 H Creatinine Glucose 103 H POC Glucose 106 H Calcium Magnesium Ferritin AST ALT 97 H Lactate Dehydrogenase Total Creatine Kinase Troponin T C-Reactive Protein Total Protein 6.1 L Albumin 3.7 L Triglycerides HDL Cholesterol Arterial Blood Glucose Arterial Blood Ionized Calcium Urine WBC (Auto) Vancomycin Trough Salicylates Acetaminophen Coronavirus (PCR) 08/06/21 11:55 WBC RBC Hgb Hct RDW Lymph % (Auto) Lymph # (Auto) Seg Neutrophils % Seg Neuts % (Manual) Lymphocytes % (Manual) Nucleated RBC % Seg Neutrophils # Seg Neutrophils # Man Lymphocytes # (Manual) Monocytes # (Manual) PT INR D-Dimer ABG pH POC ABG pCO2 POC ABG pO2 ABG pO2 ABG O2 Saturation ABG Base Excess ABG Hemoglobin ABG Oxyhemoglobin ABG Sodium ABG Chloride ABG Glucose Oxyhemoglobin Carboxyhemoglobin Sodium Potassium Chloride Carbon Dioxide BUN Creatinine Glucose POC Glucose 109 H Calcium Magnesium Ferritin AST ALT Lactate Dehydrogenase Total Creatine Kinase Troponin T C-Reactive Protein Total Protein Albumin Triglycerides HDL Cholesterol Arterial Blood Glucose Arterial Blood Ionized Calcium Urine WBC (Auto) Vancomycin Trough Salicylates Acetaminophen Coronavirus (PCR)
[2021-08-06] MEDS: ACETAMINOPHEN 325 MG TAB PO PRN (17:11)
[2021-08-06] MEDS: INSULIN GLARGINE 100 UNITS/ML SUB-Q SCH (21:41)
[2021-08-07] MEDS: INSULIN LISPRO 100 UNIT/ML SUB-Q SCH ×2 (01:05→05:29)
[2021-08-07 05:46] LABS: Hematocrit 32.8 % (30.3-42.9); Hemoglobin 11.1 gm/dl (10.1-14.3); Mean Corpuscular HGB Conc 34 % (30-34); Mean Corpuscular Volume 90 fl (79-97); Platelet Count 178 K/mm3 (140-440); Red Blood Count 3.64 M/mm3 (3.65-5.03); Red Cell Distribution Width 19.2 % (13.2-15.2)
[2021-08-07 06:05] LABS: Alanine Aminotransferase 116 units/L (7-56); Albumin 3.7 g/dL (3.9-5); Blood Urea Nitrogen 23 mg/dL (7-17); Calcium 8.9 mg/dL (8.4-10.2); Hemolysis Index 7
[2021-08-07 06:10] VITALS: BP 142/75
[2021-08-07 06:23] LABS: BUN/Creatinine Ratio 33
--- NOTE | 2021-08-07 08:58 | Progress Note ---
Assessment and Plan - Patient Problems (1) ION (acute kidney injury) Current Visit: Yes Status: Acute (2) Acute encephalopathy Current Visit: Yes Status: Acute (3) Acute respiratory failure due to COVID-19 Current Visit: Yes Status: Acute (4) Acute respiratory failure with hypoxia Current Visit: Yes Status: Acute (5) Multiple pulmonary emboli Current Visit: Yes Status: Acute Subjective Principal diagnosis: COVID pneumonia Interval history: on room air. doing well awake and responsive Objective Vital Signs - 12hr 08/06/21 08/06/21 08/06/21 21:21 21:35 22:00 Temperature 98.2 F Pulse Rate 77 Pulse Rate [ 77 From Monitor] Respiratory 18 Rate Blood Pressure 130/78 O2 Sat by Pulse 95 95 95 Oximetry 08/07/21 05:18 Temperature 98.2 F Pulse Rate 90 Pulse Rate [ From Monitor] Respiratory 18 Rate Blood Pressure 142/75 O2 Sat by Pulse 94 Oximetry Constitutional: no acute distress, comatose Eyes: non-icteric ENT: oropharynx moist Neck: supple Effort: normal Ascultation: Bilateral: diminished breath sounds Cardiovascular: regular rate and rhythm Gastrointestinal: normoactive bowel sounds, soft, non-tender Integumentary: normal Extremities: no cyanosis CBC and BMP: 08/07/21 04:53 08/07/21 04:53 ABG, PT/INR, D-dimer: ABG ABG pH 7.477 (7.320-7.450) H 08/01/21 04:00 POC ABG pCO2 41.3 mmHg (32.0-48.0) 08/01/21 04:00 ABG pCO2 35.2 mm Hg 07/19/21 Unknown POC ABG pO2 89.8 mmHg (83-108) 08/01/21 04:00 ABG pO2 64.2 mm Hg (80.0-90.0) L 07/19/21 Unknown POC ABG HCO3 29.9 08/01/21 04:00 ABG O2 Saturation 97.0 (0-100) 08/01/21 04:00 PT/INR, D-dimer PT 15.4 Sec. (12.2-14.9) H 08/03/21 05:33 INR 1.17 (0.87-1.13) H 08/03/21 05:33 D-Dimer 1383.44 ng/mlDDU (0-234) H 08/03/21 05:33 Abnormal lab findings: Abnormal Labs 07/18/21 07/18/21 07/18/21 16:00 16:00 16:00 WBC RBC Hgb Hct RDW 15.3 H Lymph % (Auto) 7.9 L Lymph # (Auto) 0.8 L Seg Neutrophils % 86.3 H Seg Neuts % (Manual) Lymphocytes % (Manual) Nucleated RBC % Seg Neutrophils # 9.0 H Seg Neutrophils # Man Lymphocytes # (Manual) Monocytes # (Manual) PT 15.1 H INR D-Dimer > 17564 H ABG pH POC ABG pCO2 POC ABG pO2 ABG pO2 ABG O2 Saturation ABG Base Excess ABG Hemoglobin ABG Oxyhemoglobin ABG Sodium ABG Chloride ABG Glucose Oxyhemoglobin Carboxyhemoglobin Sodium Potassium 3.5 L Chloride Carbon Dioxide 20 L BUN 19 H Creatinine Glucose 140 H POC Glucose Calcium Magnesium Ferritin AST 43 H ALT Alkaline Phosphatase Lactate Dehydrogenase 705 H Total Creatine Kinase 157 H Troponin T 0.106 H* C-Reactive Protein 33.00 H Total Protein Albumin 3.2 L Triglycerides 156 H HDL Cholesterol 33 L Arterial Blood Glucose Arterial Blood Ionized Calcium Urine WBC (Auto) Vancomycin Trough Salicylates Acetaminophen Coronavirus (PCR) 07/18/21 07/18/21 07/18/21 16:00 16:00 16:00 WBC RBC Hgb Hct RDW Lymph % (Auto) Lymph # (Auto) Seg Neutrophils % Seg Neuts % (Manual) Lymphocytes % (Manual) Nucleated RBC % Seg Neutrophils # Seg Neutrophils # Man Lymphocytes # (Manual) Monocytes # (Manual) PT INR D-Dimer ABG pH POC ABG pCO2 POC ABG pO2 ABG pO2 ABG O2 Saturation ABG Base Excess ABG Hemoglobin ABG Oxyhemoglobin ABG Sodium ABG Chloride ABG Glucose Oxyhemoglobin Carboxyhemoglobin Sodium Potassium Chloride Carbon Dioxide BUN Creatinine Glucose POC Glucose Calcium Magnesium Ferritin 657.0 H AST ALT Alkaline Phosphatase Lactate Dehydrogenase Total Creatine Kinase Troponin T C-Reactive Protein Total Protein Albumin Triglycerides HDL Cholesterol Arterial Blood Glucose Arterial Blood Ionized Calcium Urine WBC (Auto) Vancomycin Trough Salicylates < 0.3 L Acetaminophen 5.7 L Coronavirus (PCR) 07/18/21 07/18/21 07/19/21 Unknown Unknown 04:33 WBC RBC Hgb Hct RDW Lymph % (Auto) Lymph # (Auto) Seg Neutrophils % Seg Neuts % (Manual) Lymphocytes % (Manual) Nucleated RBC % Seg Neutrophils # Seg Neutrophils # Man Lymphocytes # (Manual) Monocytes # (Manual) PT INR D-Dimer ABG pH 7.275 L POC ABG pCO2 POC ABG pO2 68.7 L 53.1 L ABG pO2 ABG O2 Saturation ABG Base Excess ABG Hemoglobin ABG Oxyhemoglobin 88.3 L 85.3 L ABG Sodium ABG Chloride 109.0 H ABG Glucose 170 H 150 H Oxyhemoglobin Carboxyhemoglobin 0 L 0.3 L Sodium Potassium Chloride Carbon Dioxide BUN Creatinine Glucose POC Glucose Calcium Magnesium Ferritin AST ALT Alkaline Phosphatase Lactate Dehydrogenase Total Creatine Kinase Troponin T C-Reactive Protein Total Protein Albumin Triglycerides HDL Cholesterol Arterial Blood Glucose 170 H 150 H Arterial Blood Ionized Calcium Urine WBC (Auto) 9.0 H Vancomycin Trough Salicylates Acetaminophen Coronavirus (PCR) 07/19/21 07/19/21 07/19/21 04:59 04:59 Unknown WBC RBC Hgb Hct RDW 16.0 H Lymph % (Auto) 10.7 L Lymph # (Auto) 1.1 L Seg Neutrophils % 84.3 H Seg Neuts % (Manual) Lymphocytes % (Manual) Nucleated RBC % Seg Neutrophils # 8.7 H Seg Neutrophils # Man Lymphocytes # (Manual) Monocytes # (Manual) PT INR D-Dimer ABG pH POC ABG pCO2 POC ABG pO2 ABG pO2 ABG O2 Saturation ABG Base Excess ABG Hemoglobin ABG Oxyhemoglobin ABG Sodium ABG Chloride ABG Glucose Oxyhemoglobin Carboxyhemoglobin Sodium Potassium Chloride 108.8 H Carbon Dioxide 21 L BUN 28 H Creatinine 1.8 H Glucose 145 H POC Glucose Calcium 7.8 L Magnesium Ferritin AST ALT Alkaline Phosphatase Lactate Dehydrogenase Total Creatine Kinase Troponin T C-Reactive Protein Total Protein 6.2 L Albumin 3.2 L Triglycerides HDL Cholesterol Arterial Blood Glucose Arterial Blood Ionized Calcium Urine WBC (Auto) Vancomycin Trough Salicylates Acetaminophen Coronavirus (PCR) Positive A 07/19/21 07/20/21 07/20/21 Unknown 00:14 04:44 WBC RBC Hgb Hct RDW Lymph % (Auto) Lymph # (Auto) Seg Neutrophils % Seg Neuts % (Manual) Lymphocytes % (Manual) Nucleated RBC % Seg Neutrophils # Seg Neutrophils # Man Lymphocytes # (Manual) Monocytes # (Manual) PT INR D-Dimer ABG pH POC ABG pCO2 POC ABG pO2 ABG pO2 64.2 L ABG O2 Saturation 93.2 L ABG Base Excess -4.5 L ABG Hemoglobin 11.0 L ABG Oxyhemoglobin ABG Sodium ABG Chloride ABG Glucose Oxyhemoglobin 91.9 L Carboxyhemoglobin Sodium Potassium Chloride 112.2 H Carbon Dioxide BUN 38 H Creatinine 1.3 H Glucose 156 H POC Glucose 164 H Calcium 8.1 L Magnesium 3.10 H Ferritin AST ALT Alkaline Phosphatase Lactate Dehydrogenase Total Creatine Kinase Troponin T C-Reactive Protein Total Protein Albumin 2.8 L Triglycerides HDL Cholesterol Arterial Blood Glucose Arterial Blood Ionized Calcium Urine WBC (Auto) Vancomycin Trough Salicylates Acetaminophen Coronavirus (PCR) 07/20/21 07/20/21 07/20/21 04:44 05:00 05:40 WBC RBC 3.42 L Hgb 9.7 L Hct 29.3 L RDW 16.1 H Lymph % (Auto) Lymph # (Auto) Seg Neutrophils % Seg Neuts % (Manual) Lymphocytes % (Manual) Nucleated RBC % Seg Neutrophils # Seg Neutrophils # Man Lymphocytes # (Manual) Monocytes # (Manual) PT INR D-Dimer ABG pH POC ABG pCO2 POC ABG pO2 139.0 H ABG pO2 ABG O2 Saturation ABG Base Excess ABG Hemoglobin 10.1 L ABG Oxyhemoglobin ABG Sodium ABG Chloride 113.0 H ABG Glucose 155 H Oxyhemoglobin Carboxyhemoglobin 0.3 L Sodium Potassium Chloride Carbon Dioxide BUN Creatinine Glucose POC Glucose 164 H Calcium Magnesium Ferritin AST ALT Alkaline Phosphatase Lactate Dehydrogenase Total Creatine Kinase Troponin T C-Reactive Protein Total Protein Albumin Triglycerides HDL Cholesterol Arterial Blood Glucose 155 H Arterial Blood Ionized Calcium 4.4 L Urine WBC (Auto) Vancomycin Trough Salicylates Acetaminophen Coronavirus (PCR) 07/20/21 07/20/21 07/21/21 11:40 17:48 03:31 WBC RBC Hgb Hct RDW Lymph % (Auto) Lymph # (Auto) Seg Neutrophils % Seg Neuts % (Manual) Lymphocytes % (Manual) Nucleated RBC % Seg Neutrophils # Seg Neutrophils # Man Lymphocytes # (Manual) Monocytes # (Manual) PT INR D-Dimer ABG pH POC ABG pCO2 POC ABG pO2 ABG pO2 ABG O2 Saturation ABG Base Excess ABG Hemoglobin ABG Oxyhemoglobin ABG Sodium ABG Chloride ABG Glucose Oxyhemoglobin Carboxyhemoglobin Sodium Potassium Chloride Carbon Dioxide BUN Creatinine Glucose POC Glucose 137 H 143 H 157 H Calcium Magnesium Ferritin AST ALT Alkaline Phosphatase Lactate Dehydrogenase Total Creatine Kinase Troponin T C-Reactive Protein Total Protein Albumin Triglycerides HDL Cholesterol Arterial Blood Glucose Arterial Blood Ionized Calcium Urine WBC (Auto) Vancomycin Trough Salicylates Acetaminophen Coronavirus (PCR) 07/21/21 07/21/21 07/21/21 04:30 04:52 05:21 WBC RBC Hgb Hct RDW Lymph % (Auto) Lymph # (Auto) Seg Neutrophils % Seg Neuts % (Manual) Lymphocytes % (Manual) Nucleated RBC % Seg Neutrophils # Seg Neutrophils # Man Lymphocytes # (Manual) Monocytes # (Manual) PT INR D-Dimer ABG pH POC ABG pCO2 31.7 L POC ABG pO2 77.6 L ABG pO2 ABG O2 Saturation ABG Base Excess ABG Hemoglobin 10.2 L ABG Oxyhemoglobin ABG Sodium 148.3 H ABG Chloride 120.0 H ABG Glucose 168 H Oxyhemoglobin Carboxyhemoglobin 0.2 L Sodium 150 H Potassium Chloride 115.7 H Carbon Dioxide BUN 49 H Creatinine 1.4 H Glucose 185 H POC Glucose 170 H Calcium 8.3 L Magnesium Ferritin AST ALT Alkaline Phosphatase Lactate Dehydrogenase Total Creatine Kinase Troponin T C-Reactive Protein Total Protein Albumin 3.0 L Triglycerides HDL Cholesterol Arterial Blood Glucose 168 H Arterial Blood Ionized Calcium 4.4 L Urine WBC (Auto) Vancomycin Trough Salicylates Acetaminophen Coronavirus (PCR) 07/21/21 07/21/21 07/21/21 11:17 17:26 23:40 WBC RBC Hgb Hct RDW Lymph % (Auto) Lymph # (Auto) Seg Neutrophils % Seg Neuts % (Manual) Lymphocytes % (Manual) Nucleated RBC % Seg Neutrophils # Seg Neutrophils # Man Lymphocytes # (Manual) Monocytes # (Manual) PT INR D-Dimer ABG pH POC ABG pCO2 POC ABG pO2 ABG pO2 ABG O2 Saturation ABG Base Excess ABG Hemoglobin ABG Oxyhemoglobin ABG Sodium ABG Chloride ABG Glucose Oxyhemoglobin Carboxyhemoglobin Sodium Potassium Chloride Carbon Dioxide BUN Creatinine Glucose POC Glucose 176 H 184 H 161 H Calcium Magnesium Ferritin AST ALT Alkaline Phosphatase Lactate Dehydrogenase Total Creatine Kinase Troponin T C-Reactive Protein Total Protein Albumin Triglycerides HDL Cholesterol Arterial Blood Glucose Arterial Blood Ionized Calcium Urine WBC (Auto) Vancomycin Trough Salicylates Acetaminophen Coronavirus (PCR) 07/22/21 07/22/21 07/22/21 03:30 04:39 05:29 WBC RBC Hgb Hct RDW Lymph % (Auto) Lymph # (Auto) Seg Neutrophils % Seg Neuts % (Manual) Lymphocytes % (Manual) Nucleated RBC % Seg Neutrophils # Seg Neutrophils # Man Lymphocytes # (Manual) Monocytes # (Manual) PT INR D-Dimer ABG pH POC ABG pCO2 POC ABG pO2 67.4 L ABG pO2 ABG O2 Saturation ABG Base Excess ABG Hemoglobin 10.4 L ABG Oxyhemoglobin 91.8 L ABG Sodium 118.4 L ABG Chloride 114.0 H ABG Glucose 189 H Oxyhemoglobin Carboxyhemoglobin 0.2 L Sodium 146 H Potassium Chloride 112.8 H Carbon Dioxide 21 L BUN 46 H Creatinine Glucose 191 H POC Glucose 191 H Calcium Magnesium Ferritin AST ALT Alkaline Phosphatase Lactate Dehydrogenase Total Creatine Kinase Troponin T C-Reactive Protein Total Protein Albumin 2.9 L Triglycerides HDL Cholesterol Arterial Blood Glucose 189 H Arterial Blood Ionized Calcium 4.5 L Urine WBC (Auto) Vancomycin Trough Salicylates Acetaminophen Coronavirus (PCR) 07/22/21 07/22/21 07/22/21 12:17 17:54 23:34 WBC RBC Hgb Hct RDW Lymph % (Auto) Lymph # (Auto) Seg Neutrophils % Seg Neuts % (Manual) Lymphocytes % (Manual) Nucleated RBC % Seg Neutrophils # Seg Neutrophils # Man Lymphocytes # (Manual) Monocytes # (Manual) PT INR D-Dimer ABG pH POC ABG pCO2 POC ABG pO2 ABG pO2 ABG O2 Saturation ABG Base Excess ABG Hemoglobin ABG Oxyhemoglobin ABG Sodium ABG Chloride ABG Glucose Oxyhemoglobin Carboxyhemoglobin Sodium Potassium Chloride Carbon Dioxide BUN Creatinine Glucose POC Glucose 206 H 213 H 164 H Calcium Magnesium Ferritin AST ALT Alkaline Phosphatase Lactate Dehydrogenase Total Creatine Kinase Troponin T C-Reactive Protein Total Protein Albumin Triglycerides HDL Cholesterol Arterial Blood Glucose Arterial Blood Ionized Calcium Urine WBC (Auto) Vancomycin Trough Salicylates Acetaminophen Coronavirus (PCR) 07/23/21 07/23/21 07/23/21 03:30 05:21 09:02 WBC RBC Hgb Hct RDW Lymph % (Auto) Lymph # (Auto) Seg Neutrophils % Seg Neuts % (Manual) Lymphocytes % (Manual) Nucleated RBC % Seg Neutrophils # Seg Neutrophils # Man Lymphocytes # (Manual) Monocytes # (Manual) PT INR D-Dimer ABG pH POC ABG pCO2 POC ABG pO2 70.9 L ABG pO2 ABG O2 Saturation ABG Base Excess ABG Hemoglobin 10.9 L ABG Oxyhemoglobin 92.9 L ABG Sodium 130.2 L ABG Chloride 109.0 H ABG Glucose 177 H Oxyhemoglobin Carboxyhemoglobin 0.1 L Sodium Potassium 5.1 H Chloride Carbon Dioxide BUN 32 H Creatinine Glucose 200 H POC Glucose 191 H Calcium Magnesium Ferritin AST ALT Alkaline Phosphatase Lactate Dehydrogenase Total Creatine Kinase Troponin T C-Reactive Protein Total Protein Albumin Triglycerides HDL Cholesterol Arterial Blood Glucose 177 H Arterial Blood Ionized Calcium 4.3 L Urine WBC (Auto) Vancomycin Trough Salicylates Acetaminophen Coronavirus (PCR) 07/23/21 07/23/21 07/23/21 09:02 11:34 17:52 WBC 13.8 H RBC Hgb Hct RDW 15.7 H Lymph % (Auto) Lymph # (Auto) Seg Neutrophils % Seg Neuts % (Manual) Lymphocytes % (Manual) Nucleated RBC % Seg Neutrophils # Seg Neutrophils # Man Lymphocytes # (Manual) Monocytes # (Manual) PT INR D-Dimer ABG pH POC ABG pCO2 POC ABG pO2 ABG pO2 ABG O2 Saturation ABG Base Excess ABG Hemoglobin ABG Oxyhemoglobin ABG Sodium ABG Chloride ABG Glucose Oxyhemoglobin Carboxyhemoglobin Sodium Potassium Chloride Carbon Dioxide BUN Creatinine Glucose POC Glucose 208 H 158 H Calcium Magnesium Ferritin AST ALT Alkaline Phosphatase Lactate Dehydrogenase Total Creatine Kinase Troponin T C-Reactive Protein Total Protein Albumin Triglycerides HDL Cholesterol Arterial Blood Glucose Arterial Blood Ionized Calcium Urine WBC (Auto) Vancomycin Trough Salicylates Acetaminophen Coronavirus (PCR) 07/23/21 07/24/21 07/24/21 23:28 03:06 05:01 WBC RBC Hgb Hct RDW Lymph % (Auto) Lymph # (Auto) Seg Neutrophils % Seg Neuts % (Manual) Lymphocytes % (Manual) Nucleated RBC % Seg Neutrophils # Seg Neutrophils # Man Lymphocytes # (Manual) Monocytes # (Manual) PT INR D-Dimer ABG pH POC ABG pCO2 POC ABG pO2 51.1 L ABG pO2 ABG O2 Saturation ABG Base Excess ABG Hemoglobin ABG Oxyhemoglobin 85.0 L ABG Sodium 135.5 L ABG Chloride ABG Glucose 131 H Oxyhemoglobin Carboxyhemoglobin 0.4 L Sodium Potassium Chloride Carbon Dioxide BUN 29 H Creatinine Glucose 132 H POC Glucose 142 H Calcium 7.8 L Magnesium Ferritin AST ALT Alkaline Phosphatase Lactate Dehydrogenase Total Creatine Kinase Troponin T C-Reactive Protein Total Protein Albumin Triglycerides HDL Cholesterol Arterial Blood Glucose 131 H Arterial Blood Ionized Calcium 4.5 L Urine WBC (Auto) Vancomycin Trough Salicylates Acetaminophen Coronavirus (PCR) 07/24/21 07/24/21 07/24/21 05:06 11:38 17:26 WBC RBC Hgb Hct RDW Lymph % (Auto) Lymph # (Auto) Seg Neutrophils % Seg Neuts % (Manual) Lymphocytes % (Manual) Nucleated RBC % Seg Neutrophils # Seg Neutrophils # Man Lymphocytes # (Manual) Monocytes # (Manual) PT INR D-Dimer ABG pH POC ABG pCO2 POC ABG pO2 ABG pO2 ABG O2 Saturation ABG Base Excess ABG Hemoglobin ABG Oxyhemoglobin ABG Sodium ABG Chloride ABG Glucose Oxyhemoglobin Carboxyhemoglobin Sodium Potassium Chloride Carbon Dioxide BUN Creatinine Glucose POC Glucose 125 H 215 H 173 H Calcium Magnesium Ferritin AST ALT Alkaline Phosphatase Lactate Dehydrogenase Total Creatine Kinase Troponin T C-Reactive Protein Total Protein Albumin Triglycerides HDL Cholesterol Arterial Blood Glucose Arterial Blood Ionized Calcium Urine WBC (Auto) Vancomycin Trough Salicylates Acetaminophen Coronavirus (PCR) 07/24/21 07/25/21 07/25/21 23:23 03:33 04:28 WBC RBC Hgb Hct RDW Lymph % (Auto) Lymph # (Auto) Seg Neutrophils % Seg Neuts % (Manual) Lymphocytes % (Manual) Nucleated RBC % Seg Neutrophils # Seg Neutrophils # Man Lymphocytes # (Manual) Monocytes # (Manual) PT INR D-Dimer ABG pH POC ABG pCO2 POC ABG pO2 ABG pO2 ABG O2 Saturation ABG Base Excess ABG Hemoglobin ABG Oxyhemoglobin ABG Sodium 135.6 L ABG Chloride ABG Glucose 174 H Oxyhemoglobin Carboxyhemoglobin 0.1 L Sodium Potassium 5.1 H Chloride 107.7 H Carbon Dioxide BUN 29 H Creatinine Glucose 164 H POC Glucose 133 H Calcium 7.3 L Magnesium Ferritin AST ALT Alkaline Phosphatase Lactate Dehydrogenase Total Creatine Kinase Troponin T C-Reactive Protein Total Protein Albumin Triglycerides HDL Cholesterol Arterial Blood Glucose 174 H Arterial Blood Ionized Calcium Urine WBC (Auto) Vancomycin Trough Salicylates Acetaminophen Coronavirus (PCR) 07/25/21 07/25/21 07/25/21 04:28 04:28 05:17 WBC 14.9 H RBC Hgb Hct RDW 15.6 H Lymph % (Auto) Lymph # (Auto) Seg Neutrophils % Seg Neuts % (Manual) 92.0 H Lymphocytes % (Manual) 2.0 L Nucleated RBC % Seg Neutrophils # Seg Neutrophils # Man 13.7 H Lymphocytes # (Manual) 0.3 L Monocytes # (Manual) PT INR D-Dimer ABG pH POC ABG pCO2 POC ABG pO2 ABG pO2 ABG O2 Saturation ABG Base Excess ABG Hemoglobin ABG Oxyhemoglobin ABG Sodium ABG Chloride ABG Glucose Oxyhemoglobin Carboxyhemoglobin Sodium Potassium Chloride Carbon Dioxide BUN Creatinine Glucose POC Glucose 173 H Calcium Magnesium Ferritin AST ALT Alkaline Phosphatase Lactate Dehydrogenase Total Creatine Kinase Troponin T C-Reactive Protein Total Protein Albumin Triglycerides HDL Cholesterol Arterial Blood Glucose Arterial Blood Ionized Calcium Urine WBC (Auto) Vancomycin Trough 22.9 H Salicylates Acetaminophen Coronavirus (PCR) 07/25/21 07/25/21 07/25/21 11:29 17:00 23:46 WBC RBC Hgb Hct RDW Lymph % (Auto) Lymph # (Auto) Seg Neutrophils % Seg Neuts % (Manual) Lymphocytes % (Manual) Nucleated RBC % Seg Neutrophils # Seg Neutrophils # Man Lymphocytes # (Manual) Monocytes # (Manual) PT INR D-Dimer ABG pH POC ABG pCO2 POC ABG pO2 ABG pO2 ABG O2 Saturation ABG Base Excess ABG Hemoglobin ABG Oxyhemoglobin ABG Sodium ABG Chloride ABG Glucose Oxyhemoglobin Carboxyhemoglobin Sodium Potassium Chloride Carbon Dioxide BUN Creatinine Glucose POC Glucose 191 H 184 H 192 H Calcium Magnesium Ferritin AST ALT Alkaline Phosphatase Lactate Dehydrogenase Total Creatine Kinase Troponin T C-Reactive Protein Total Protein Albumin Triglycerides HDL Cholesterol Arterial Blood Glucose Arterial Blood Ionized Calcium Urine WBC (Auto) Vancomycin Trough Salicylates Acetaminophen Coronavirus (PCR) 07/26/21 07/26/21 07/26/21 03:17 05:33 06:07 WBC 18.0 H RBC Hgb Hct RDW 15.6 H Lymph % (Auto) Lymph # (Auto) Seg Neutrophils % Seg Neuts % (Manual) 87.0 H Lymphocytes % (Manual) 5.0 L Nucleated RBC % Seg Neutrophils # Seg Neutrophils # Man 15.7 H Lymphocytes # (Manual) 0.9 L Monocytes # (Manual) 1.1 H PT INR D-Dimer ABG pH POC ABG pCO2 POC ABG pO2 73.7 L ABG pO2 ABG O2 Saturation ABG Base Excess ABG Hemoglobin 11.8 L ABG Oxyhemoglobin 93.6 L ABG Sodium ABG Chloride ABG Glucose 183 H Oxyhemoglobin Carboxyhemoglobin 0.2 L Sodium Potassium Chloride Carbon Dioxide BUN Creatinine Glucose POC Glucose 172 H Calcium Magnesium Ferritin AST ALT Alkaline Phosphatase Lactate Dehydrogenase Total Creatine Kinase Troponin T C-Reactive Protein Total Protein Albumin Triglycerides HDL Cholesterol Arterial Blood Glucose 183 H Arterial Blood Ionized Calcium Urine WBC (Auto) Vancomycin Trough Salicylates Acetaminophen Coronavirus (PCR) 07/26/21 07/26/21 07/26/21 06:07 11:46 13:53 WBC RBC Hgb Hct RDW Lymph % (Auto) Lymph # (Auto) Seg Neutrophils % Seg Neuts % (Manual) Lymphocytes % (Manual) Nucleated RBC % Seg Neutrophils # Seg Neutrophils # Man Lymphocytes # (Manual) Monocytes # (Manual) PT INR D-Dimer 6992.45 H ABG pH POC ABG pCO2 POC ABG pO2 ABG pO2 ABG O2 Saturation ABG Base Excess ABG Hemoglobin ABG Oxyhemoglobin ABG Sodium ABG Chloride ABG Glucose Oxyhemoglobin Carboxyhemoglobin Sodium Potassium 5.4 H Chloride Carbon Dioxide BUN 33 H Creatinine Glucose 155 H POC Glucose 142 H Calcium 8.3 L Magnesium Ferritin AST ALT Alkaline Phosphatase Lactate Dehydrogenase Total Creatine Kinase Troponin T C-Reactive Protein Total Protein Albumin Triglycerides HDL Cholesterol Arterial Blood Glucose Arterial Blood Ionized Calcium Urine WBC (Auto) Vancomycin Trough Salicylates Acetaminophen Coronavirus (PCR) 07/26/21 07/26/21 07/26/21 13:53 14:16 17:29 WBC RBC Hgb Hct RDW Lymph % (Auto) Lymph # (Auto) Seg Neutrophils % Seg Neuts % (Manual) Lymphocytes % (Manual) Nucleated RBC % Seg Neutrophils # Seg Neutrophils # Man Lymphocytes # (Manual) Monocytes # (Manual) PT INR D-Dimer ABG pH POC ABG pCO2 POC ABG pO2 ABG pO2 ABG O2 Saturation ABG Base Excess ABG Hemoglobin ABG Oxyhemoglobin ABG Sodium ABG Chloride ABG Glucose Oxyhemoglobin Carboxyhemoglobin Sodium Potassium Chloride Carbon Dioxide BUN Creatinine Glucose 200 H POC Glucose 185 H Calcium Magnesium Ferritin 348.4 H AST ALT Alkaline Phosphatase Lactate Dehydrogenase 515 H Total Creatine Kinase Troponin T C-Reactive Protein Total Protein Albumin Triglycerides HDL Cholesterol Arterial Blood Glucose Arterial Blood Ionized Calcium Urine WBC (Auto) Vancomycin Trough Salicylates Acetaminophen Coronavirus (PCR) 07/26/21 07/27/21 07/27/21 23:30 04:00 04:48 WBC 16.5 H RBC Hgb Hct RDW Lymph % (Auto) Lymph # (Auto) Seg Neutrophils % Seg Neuts % (Manual) 92.0 H Lymphocytes % (Manual) 3.0 L Nucleated RBC % 1.0 H Seg Neutrophils # Seg Neutrophils # Man 15.2 H Lymphocytes # (Manual) 0.5 L Monocytes # (Manual) PT INR D-Dimer ABG pH 7.481 H POC ABG pCO2 POC ABG pO2 70.4 L ABG pO2 ABG O2 Saturation ABG Base Excess ABG Hemoglobin 11.6 L ABG Oxyhemoglobin ABG Sodium 131.9 L ABG Chloride ABG Glucose 207 H Oxyhemoglobin Carboxyhemoglobin Sodium Potassium Chloride Carbon Dioxide BUN Creatinine Glucose POC Glucose 186 H Calcium Magnesium Ferritin AST ALT Alkaline Phosphatase Lactate Dehydrogenase Total Creatine Kinase Troponin T C-Reactive Protein Total Protein Albumin Triglycerides HDL Cholesterol Arterial Blood Glucose 207 H Arterial Blood Ionized Calcium Urine WBC (Auto) Vancomycin Trough Salicylates Acetaminophen Coronavirus (PCR) 07/27/21 07/27/21 07/27/21 04:48 05:04 11:36 WBC RBC Hgb Hct RDW Lymph % (Auto) Lymph # (Auto) Seg Neutrophils % Seg Neuts % (Manual) Lymphocytes % (Manual) Nucleated RBC % Seg Neutrophils # Seg Neutrophils # Man Lymphocytes # (Manual) Monocytes # (Manual) PT INR D-Dimer ABG pH POC ABG pCO2 POC ABG pO2 ABG pO2 ABG O2 Saturation ABG Base Excess ABG Hemoglobin ABG Oxyhemoglobin ABG Sodium ABG Chloride ABG Glucose Oxyhemoglobin Carboxyhemoglobin Sodium Potassium Chloride Carbon Dioxide BUN 35 H Creatinine Glucose 216 H POC Glucose 201 H 142 H Calcium Magnesium Ferritin AST ALT Alkaline Phosphatase Lactate Dehydrogenase Total Creatine Kinase Troponin T C-Reactive Protein Total Protein Albumin Triglycerides HDL Cholesterol Arterial Blood Glucose Arterial Blood Ionized Calcium Urine WBC (Auto) Vancomycin Trough Salicylates Acetaminophen Coronavirus (PCR) 07/27/21 07/27/21 07/28/21 18:14 22:03 04:00 WBC RBC Hgb Hct RDW Lymph % (Auto) Lymph # (Auto) Seg Neutrophils % Seg Neuts % (Manual) Lymphocytes % (Manual) Nucleated RBC % Seg Neutrophils # Seg Neutrophils # Man Lymphocytes # (Manual) Monocytes # (Manual) PT INR D-Dimer ABG pH 7.491 H POC ABG pCO2 POC ABG pO2 109.2 H ABG pO2 ABG O2 Saturation ABG Base Excess ABG Hemoglobin ABG Oxyhemoglobin ABG Sodium 133.9 L ABG Chloride ABG Glucose 163 H Oxyhemoglobin Carboxyhemoglobin Sodium Potassium Chloride Carbon Dioxide BUN Creatinine Glucose POC Glucose 166 H 149 H Calcium Magnesium Ferritin AST ALT Alkaline Phosphatase Lactate Dehydrogenase Total Creatine Kinase Troponin T C-Reactive Protein Total Protein Albumin Triglycerides HDL Cholesterol Arterial Blood Glucose 163 H Arterial Blood Ionized Calcium Urine WBC (Auto) Vancomycin Trough Salicylates Acetaminophen Coronavirus (PCR) 07/28/21 07/28/21 07/28/21 04:10 04:10 04:10 WBC RBC Hgb Hct RDW Lymph % (Auto) Lymph # (Auto) Seg Neutrophils % Seg Neuts % (Manual) Lymphocytes % (Manual) Nucleated RBC % Seg Neutrophils # Seg Neutrophils # Man Lymphocytes # (Manual) Monocytes # (Manual) PT INR D-Dimer 5318.85 H ABG pH POC ABG pCO2 POC ABG pO2 ABG pO2 ABG O2 Saturation ABG Base Excess ABG Hemoglobin ABG Oxyhemoglobin ABG Sodium ABG Chloride ABG Glucose Oxyhemoglobin Carboxyhemoglobin Sodium Potassium Chloride Carbon Dioxide 31 H BUN 35 H Creatinine Glucose 187 H POC Glucose Calcium Magnesium Ferritin 324.6 H AST ALT Alkaline Phosphatase Lactate Dehydrogenase 414 H Total Creatine Kinase Troponin T C-Reactive Protein Total Protein Albumin Triglycerides HDL Cholesterol Arterial Blood Glucose Arterial Blood Ionized Calcium Urine WBC (Auto) Vancomycin Trough Salicylates Acetaminophen Coronavirus (PCR) 07/28/21 07/28/21 07/28/21 04:10 05:25 12:10 WBC 13.7 H RBC Hgb Hct RDW Lymph % (Auto) Lymph # (Auto) Seg Neutrophils % Seg Neuts % (Manual) Lymphocytes % (Manual) Nucleated RBC % Seg Neutrophils # Seg Neutrophils # Man Lymphocytes # (Manual) Monocytes # (Manual) PT INR D-Dimer ABG pH POC ABG pCO2 POC ABG pO2 ABG pO2 ABG O2 Saturation ABG Base Excess ABG Hemoglobin ABG Oxyhemoglobin ABG Sodium ABG Chloride ABG Glucose Oxyhemoglobin Carboxyhemoglobin Sodium Potassium Chloride Carbon Dioxide BUN Creatinine Glucose POC Glucose 152 H 162 H Calcium Magnesium Ferritin AST ALT Alkaline Phosphatase Lactate Dehydrogenase Total Creatine Kinase Troponin T C-Reactive Protein Total Protein Albumin Triglycerides HDL Cholesterol Arterial Blood Glucose Arterial Blood Ionized Calcium Urine WBC (Auto) Vancomycin Trough Salicylates Acetaminophen Coronavirus (PCR) 07/28/21 07/28/2121 17:44 21:58 04:00 WBC RBC Hgb Hct RDW Lymph % (Auto) Lymph # (Auto) Seg Neutrophils % Seg Neuts % (Manual) Lymphocytes % (Manual) Nucleated RBC % Seg Neutrophils # Seg Neutrophils # Man Lymphocytes # (Manual) Monocytes # (Manual) PT INR D-Dimer ABG pH 7.510 H POC ABG pCO2 POC ABG pO2 113.0 H ABG pO2 ABG O2 Saturation ABG Base Excess ABG Hemoglobin 11.1 L ABG Oxyhemoglobin ABG Sodium 135.0 L ABG Chloride ABG Glucose 162 H Oxyhemoglobin Carboxyhemoglobin 0.3 L Sodium Potassium Chloride Carbon Dioxide BUN Creatinine Glucose POC Glucose 152 H 139 H Calcium Magnesium Ferritin AST ALT Alkaline Phosphatase Lactate Dehydrogenase Total Creatine Kinase Troponin T C-Reactive Protein Total Protein Albumin Triglycerides HDL Cholesterol Arterial Blood Glucose 162 H Arterial Blood Ionized Calcium 4.4 L Urine WBC (Auto) Vancomycin Trough Salicylates Acetaminophen Coronavirus (PCR) 07/29/21 07/29/21 07/29/21 04:35 04:35 05:47 WBC 12.0 H RBC Hgb Hct RDW Lymph % (Auto) Lymph # (Auto) Seg Neutrophils % Seg Neuts % (Manual) Lymphocytes % (Manual) Nucleated RBC % Seg Neutrophils # Seg Neutrophils # Man Lymphocytes # (Manual) Monocytes # (Manual) PT INR D-Dimer ABG pH POC ABG pCO2 POC ABG pO2 ABG pO2 ABG O2 Saturation ABG Base Excess ABG Hemoglobin ABG Oxyhemoglobin ABG Sodium ABG Chloride ABG Glucose Oxyhemoglobin Carboxyhemoglobin Sodium Potassium Chloride Carbon Dioxide BUN 34 H Creatinine Glucose 170 H POC Glucose 153 H Calcium Magnesium Ferritin AST ALT Alkaline Phosphatase Lactate Dehydrogenase Total Creatine Kinase Troponin T C-Reactive Protein Total Protein Albumin Triglycerides HDL Cholesterol Arterial Blood Glucose Arterial Blood Ionized Calcium Urine WBC (Auto) Vancomycin Trough Salicylates Acetaminophen Coronavirus (PCR) 07/29/21 07/29/21 07/29/21 11:25 16:29 23:39 WBC RBC Hgb Hct RDW Lymph % (Auto) Lymph # (Auto) Seg Neutrophils % Seg Neuts % (Manual) Lymphocytes % (Manual) Nucleated RBC % Seg Neutrophils # Seg Neutrophils # Man Lymphocytes # (Manual) Monocytes # (Manual) PT INR D-Dimer ABG pH POC ABG pCO2 POC ABG pO2 ABG pO2 ABG O2 Saturation ABG Base Excess ABG Hemoglobin ABG Oxyhemoglobin ABG Sodium ABG Chloride ABG Glucose Oxyhemoglobin Carboxyhemoglobin Sodium Potassium Chloride Carbon Dioxide BUN Creatinine Glucose POC Glucose 142 H 167 H 141 H Calcium Magnesium Ferritin AST ALT Alkaline Phosphatase Lactate Dehydrogenase Total Creatine Kinase Troponin T C-Reactive Protein Total Protein Albumin Triglycerides HDL Cholesterol Arterial Blood Glucose Arterial Blood Ionized Calcium Urine WBC (Auto) Vancomycin Trough Salicylates Acetaminophen Coronavirus (PCR) 07/30/21 07/30/21 07/30/21 05:00 05:00 05:00 WBC RBC Hgb Hct RDW Lymph % (Auto) Lymph # (Auto) Seg Neutrophils % Seg Neuts % (Manual) Lymphocytes % (Manual) Nucleated RBC % Seg Neutrophils # Seg Neutrophils # Man Lymphocytes # (Manual) Monocytes # (Manual) PT INR D-Dimer 1818.72 H ABG pH POC ABG pCO2 POC ABG pO2 ABG pO2 ABG O2 Saturation ABG Base Excess ABG Hemoglobin ABG Oxyhemoglobin ABG Sodium ABG Chloride ABG Glucose Oxyhemoglobin Carboxyhemoglobin Sodium Potassium Chloride Carbon Dioxide BUN 34 H Creatinine Glucose 184 H POC Glucose Calcium Magnesium Ferritin 242.1 H AST ALT Alkaline Phosphatase Lactate Dehydrogenase 304 H Total Creatine Kinase Troponin T C-Reactive Protein Total Protein Albumin Triglycerides HDL Cholesterol Arterial Blood Glucose Arterial Blood Ionized Calcium Urine WBC (Auto) Vancomycin Trough Salicylates Acetaminophen Coronavirus (PCR) 07/30/21 07/30/21 07/30/21 05:00 06:08 11:41 WBC RBC 3.45 L Hgb 10.0 L Hct 29.9 L RDW Lymph % (Auto) Lymph # (Auto) Seg Neutrophils % Seg Neuts % (Manual) Lymphocytes % (Manual) Nucleated RBC % Seg Neutrophils # Seg Neutrophils # Man Lymphocytes # (Manual) Monocytes # (Manual) PT INR D-Dimer ABG pH POC ABG pCO2 POC ABG pO2 ABG pO2 ABG O2 Saturation ABG Base Excess ABG Hemoglobin ABG Oxyhemoglobin ABG Sodium ABG Chloride ABG Glucose Oxyhemoglobin Carboxyhemoglobin Sodium Potassium Chloride Carbon Dioxide BUN Creatinine Glucose POC Glucose 171 H 182 H Calcium Magnesium Ferritin AST ALT Alkaline Phosphatase Lactate Dehydrogenase Total Creatine Kinase Troponin T C-Reactive Protein Total Protein Albumin Triglycerides HDL Cholesterol Arterial Blood Glucose Arterial Blood Ionized Calcium Urine WBC (Auto) Vancomycin Trough Salicylates Acetaminophen Coronavirus (PCR) 07/30/21 07/30/21 07/30/21 17:28 22:22 23:43 WBC RBC Hgb Hct RDW Lymph % (Auto) Lymph # (Auto) Seg Neutrophils % Seg Neuts % (Manual) Lymphocytes % (Manual) Nucleated RBC % Seg Neutrophils # Seg Neutrophils # Man Lymphocytes # (Manual) Monocytes # (Manual) PT INR D-Dimer ABG pH POC ABG pCO2 POC ABG pO2 ABG pO2 ABG O2 Saturation ABG Base Excess ABG Hemoglobin ABG Oxyhemoglobin ABG Sodium ABG Chloride ABG Glucose Oxyhemoglobin Carboxyhemoglobin Sodium Potassium Chloride Carbon Dioxide BUN Creatinine Glucose POC Glucose 176 H 150 H 161 H Calcium Magnesium Ferritin AST ALT Alkaline Phosphatase Lactate Dehydrogenase Total Creatine Kinase Troponin T C-Reactive Protein Total Protein Albumin Triglycerides HDL Cholesterol Arterial Blood Glucose Arterial Blood Ionized Calcium Urine WBC (Auto) Vancomycin Trough Salicylates Acetaminophen Coronavirus (PCR) 07/31/21 07/31/21 07/31/21 04:00 05:25 05:50 WBC 11.5 H RBC Hgb Hct RDW Lymph % (Auto) Lymph # (Auto) Seg Neutrophils % Seg Neuts % (Manual) Lymphocytes % (Manual) Nucleated RBC % Seg Neutrophils # Seg Neutrophils # Man Lymphocytes # (Manual) Monocytes # (Manual) PT INR D-Dimer ABG pH POC ABG pCO2 POC ABG pO2 ABG pO2 ABG O2 Saturation ABG Base Excess ABG Hemoglobin 11.5 L ABG Oxyhemoglobin ABG Sodium ABG Chloride ABG Glucose 143 H Oxyhemoglobin Carboxyhemoglobin Sodium Potassium Chloride Carbon Dioxide BUN Creatinine Glucose POC Glucose 150 H Calcium Magnesium Ferritin AST ALT Alkaline Phosphatase Lactate Dehydrogenase Total Creatine Kinase Troponin T C-Reactive Protein Total Protein Albumin Triglycerides HDL Cholesterol Arterial Blood Glucose 143 H Arterial Blood Ionized Calcium Urine WBC (Auto) Vancomycin Trough Salicylates Acetaminophen Coronavirus (PCR) 07/31/21 07/31/21 07/31/21 05:50 11:36 17:30 WBC RBC Hgb Hct RDW Lymph % (Auto) Lymph # (Auto) Seg Neutrophils % Seg Neuts % (Manual) Lymphocytes % (Manual) Nucleated RBC % Seg Neutrophils # Seg Neutrophils # Man Lymphocytes # (Manual) Monocytes # (Manual) PT INR D-Dimer ABG pH POC ABG pCO2 POC ABG pO2 ABG pO2 ABG O2 Saturation ABG Base Excess ABG Hemoglobin ABG Oxyhemoglobin ABG Sodium ABG Chloride ABG Glucose Oxyhemoglobin Carboxyhemoglobin Sodium Potassium Chloride Carbon Dioxide BUN 32 H Creatinine Glucose 158 H POC Glucose 179 H 115 H Calcium Magnesium Ferritin AST ALT Alkaline Phosphatase Lactate Dehydrogenase Total Creatine Kinase Troponin T C-Reactive Protein Total Protein Albumin Triglycerides HDL Cholesterol Arterial Blood Glucose Arterial Blood Ionized Calcium Urine WBC (Auto) Vancomycin Trough Salicylates Acetaminophen Coronavirus (PCR) 07/31/21 08/01/21 08/01/21 22:36 04:00 04:58 WBC RBC Hgb Hct RDW Lymph % (Auto) Lymph # (Auto) Seg Neutrophils % Seg Neuts % (Manual) Lymphocytes % (Manual) Nucleated RBC % Seg Neutrophils # Seg Neutrophils # Man Lymphocytes # (Manual) Monocytes # (Manual) PT INR D-Dimer ABG pH 7.477 H POC ABG pCO2 POC ABG pO2 ABG pO2 ABG O2 Saturation ABG Base Excess ABG Hemoglobin 11.4 L ABG Oxyhemoglobin ABG Sodium 134.4 L ABG Chloride ABG Glucose 173 H Oxyhemoglobin Carboxyhemoglobin 0.3 L Sodium Potassium Chloride Carbon Dioxide BUN Creatinine Glucose POC Glucose 150 H 153 H Calcium Magnesium Ferritin AST ALT Alkaline Phosphatase Lactate Dehydrogenase Total Creatine Kinase Troponin T C-Reactive Protein Total Protein Albumin Triglycerides HDL Cholesterol Arterial Blood Glucose 173 H Arterial Blood Ionized Calcium Urine WBC (Auto) Vancomycin Trough Salicylates Acetaminophen Coronavirus (PCR) 08/01/21 08/01/21 08/01/21 06:00 06:00 06:00 WBC RBC Hgb Hct RDW Lymph % (Auto) Lymph # (Auto) Seg Neutrophils % Seg Neuts % (Manual) Lymphocytes % (Manual) Nucleated RBC % Seg Neutrophils # Seg Neutrophils # Man Lymphocytes # (Manual) Monocytes # (Manual) PT INR D-Dimer 1503.43 H ABG pH POC ABG pCO2 POC ABG pO2 ABG pO2 ABG O2 Saturation ABG Base Excess ABG Hemoglobin ABG Oxyhemoglobin ABG Sodium ABG Chloride ABG Glucose Oxyhemoglobin Carboxyhemoglobin Sodium 136 L Potassium Chloride Carbon Dioxide 31 H BUN 28 H Creatinine 0.5 L Glucose 154 H POC Glucose Calcium Magnesium Ferritin 244.0 H AST ALT Alkaline Phosphatase Lactate Dehydrogenase 369 H Total Creatine Kinase Troponin T C-Reactive Protein Total Protein Albumin Triglycerides HDL Cholesterol Arterial Blood Glucose Arterial Blood Ionized Calcium Urine WBC (Auto) Vancomycin Trough Salicylates Acetaminophen Coronavirus (PCR) 08/01/21 08/01/21 08/01/21 12:32 18:30 23:23 WBC RBC Hgb Hct RDW Lymph % (Auto) Lymph # (Auto) Seg Neutrophils % Seg Neuts % (Manual) Lymphocytes % (Manual) Nucleated RBC % Seg Neutrophils # Seg Neutrophils # Man Lymphocytes # (Manual) Monocytes # (Manual) PT INR D-Dimer ABG pH POC ABG pCO2 POC ABG pO2 ABG pO2 ABG O2 Saturation ABG Base Excess ABG Hemoglobin ABG Oxyhemoglobin ABG Sodium ABG Chloride ABG Glucose Oxyhemoglobin Carboxyhemoglobin Sodium Potassium Chloride Carbon Dioxide BUN Creatinine Glucose POC Glucose 144 H 127 H 123 H Calcium Magnesium Ferritin AST ALT Alkaline Phosphatase Lactate Dehydrogenase Total Creatine Kinase Troponin T C-Reactive Protein Total Protein Albumin Triglycerides HDL Cholesterol Arterial Blood Glucose Arterial Blood Ionized Calcium Urine WBC (Auto) Vancomycin Trough Salicylates Acetaminophen Coronavirus (PCR) 08/02/21 08/02/21 08/02/21 05:30 05:30 11:18 WBC 11.2 H RBC Hgb Hct RDW Lymph % (Auto) Lymph # (Auto) Seg Neutrophils % Seg Neuts % (Manual) Lymphocytes % (Manual) Nucleated RBC % Seg Neutrophils # Seg Neutrophils # Man Lymphocytes # (Manual) Monocytes # (Manual) PT INR D-Dimer ABG pH POC ABG pCO2 POC ABG pO2 ABG pO2 ABG O2 Saturation ABG Base Excess ABG Hemoglobin ABG Oxyhemoglobin ABG Sodium ABG Chloride ABG Glucose Oxyhemoglobin Carboxyhemoglobin Sodium Potassium Chloride Carbon Dioxide 33 H BUN 23 H Creatinine 0.5 L Glucose 108 H POC Glucose 131 H Calcium Magnesium Ferritin AST ALT Alkaline Phosphatase Lactate Dehydrogenase Total Creatine Kinase Troponin T C-Reactive Protein Total Protein Albumin Triglycerides HDL Cholesterol Arterial Blood Glucose Arterial Blood Ionized Calcium Urine WBC (Auto) Vancomycin Trough Salicylates Acetaminophen Coronavirus (PCR) 08/02/21 08/03/21 08/03/21 17:22 05:33 05:33 WBC RBC Hgb Hct RDW Lymph % (Auto) Lymph # (Auto) Seg Neutrophils % Seg Neuts % (Manual) Lymphocytes % (Manual) Nucleated RBC % Seg Neutrophils # Seg Neutrophils # Man Lymphocytes # (Manual) Monocytes # (Manual) PT 15.4 H INR 1.17 H D-Dimer 1383.44 H ABG pH POC ABG pCO2 POC ABG pO2 ABG pO2 ABG O2 Saturation ABG Base Excess ABG Hemoglobin ABG Oxyhemoglobin ABG Sodium ABG Chloride ABG Glucose Oxyhemoglobin Carboxyhemoglobin Sodium Potassium Chloride Carbon Dioxide BUN Creatinine Glucose POC Glucose 127 H Calcium Magnesium Ferritin AST ALT Alkaline Phosphatase Lactate Dehydrogenase 427 H Total Creatine Kinase Troponin T C-Reactive Protein Total Protein Albumin Triglycerides HDL Cholesterol Arterial Blood Glucose Arterial Blood Ionized Calcium Urine WBC (Auto) Vancomycin Trough Salicylates Acetaminophen Coronavirus (PCR) 08/03/21 08/03/21 08/03/21 05:33 05:33 05:33 WBC RBC Hgb Hct RDW 15.4 H Lymph % (Auto) Lymph # (Auto) Seg Neutrophils % Seg Neuts % (Manual) Lymphocytes % (Manual) Nucleated RBC % Seg Neutrophils # Seg Neutrophils # Man Lymphocytes # (Manual) Monocytes # (Manual) PT INR D-Dimer ABG pH POC ABG pCO2 POC ABG pO2 ABG pO2 ABG O2 Saturation ABG Base Excess ABG Hemoglobin ABG Oxyhemoglobin ABG Sodium ABG Chloride ABG Glucose Oxyhemoglobin Carboxyhemoglobin Sodium 136 L Potassium Chloride Carbon Dioxide BUN 28 H Creatinine Glucose 114 H POC Glucose Calcium Magnesium Ferritin 263.2 H AST ALT Alkaline Phosphatase Lactate Dehydrogenase Total Creatine Kinase Troponin T C-Reactive Protein Total Protein Albumin Triglycerides HDL Cholesterol Arterial Blood Glucose Arterial Blood Ionized Calcium Urine WBC (Auto) Vancomycin Trough Salicylates Acetaminophen Coronavirus (PCR) 08/03/21 08/03/21 08/03/21 05:59 07:57 12:24 WBC RBC Hgb Hct RDW Lymph % (Auto) Lymph # (Auto) Seg Neutrophils % Seg Neuts % (Manual) Lymphocytes % (Manual) Nucleated RBC % Seg Neutrophils # Seg Neutrophils # Man Lymphocytes # (Manual) Monocytes # (Manual) PT INR D-Dimer ABG pH POC ABG pCO2 POC ABG pO2 ABG pO2 ABG O2 Saturation ABG Base Excess ABG Hemoglobin ABG Oxyhemoglobin ABG Sodium ABG Chloride ABG Glucose Oxyhemoglobin Carboxyhemoglobin Sodium Potassium Chloride Carbon Dioxide BUN Creatinine Glucose POC Glucose 110 H 124 H 125 H Calcium Magnesium Ferritin AST ALT Alkaline Phosphatase Lactate Dehydrogenase Total Creatine Kinase Troponin T C-Reactive Protein Total Protein Albumin Triglycerides HDL Cholesterol Arterial Blood Glucose Arterial Blood Ionized Calcium Urine WBC (Auto) Vancomycin Trough Salicylates Acetaminophen Coronavirus (PCR) 08/03/21 08/03/21 08/04/21 16:00 23:22 07:11 WBC RBC Hgb Hct RDW Lymph % (Auto) Lymph # (Auto) Seg Neutrophils % Seg Neuts % (Manual) Lymphocytes % (Manual) Nucleated RBC % Seg Neutrophils # Seg Neutrophils # Man Lymphocytes # (Manual) Monocytes # (Manual) PT INR D-Dimer ABG pH POC ABG pCO2 POC ABG pO2 ABG pO2 ABG O2 Saturation ABG Base Excess ABG Hemoglobin ABG Oxyhemoglobin ABG Sodium ABG Chloride ABG Glucose Oxyhemoglobin Carboxyhemoglobin Sodium Potassium Chloride Carbon Dioxide BUN 29 H Creatinine Glucose 105 H POC Glucose 123 H 114 H Calcium Magnesium Ferritin AST 41 H ALT 79 H Alkaline Phosphatase Lactate Dehydrogenase Total Creatine Kinase Troponin T C-Reactive Protein Total Protein Albumin 3.7 L Triglycerides HDL Cholesterol Arterial Blood Glucose Arterial Blood Ionized Calcium Urine WBC (Auto) Vancomycin Trough Salicylates Acetaminophen Coronavirus (PCR) 08/04/21 08/05/21 08/05/21 11:41 05:33 05:33 WBC RBC 3.55 L Hgb Hct RDW 18.1 H Lymph % (Auto) Lymph # (Auto) Seg Neutrophils % Seg Neuts % (Manual) Lymphocytes % (Manual) Nucleated RBC % Seg Neutrophils # Seg Neutrophils # Man Lymphocytes # (Manual) Monocytes # (Manual) PT INR D-Dimer ABG pH POC ABG pCO2 POC ABG pO2 ABG pO2 ABG O2 Saturation ABG Base Excess ABG Hemoglobin ABG Oxyhemoglobin ABG Sodium ABG Chloride ABG Glucose Oxyhemoglobin Carboxyhemoglobin Sodium Potassium Chloride Carbon Dioxide 20 L BUN 26 H Creatinine Glucose 103 H POC Glucose 106 H Calcium Magnesium Ferritin AST ALT 97 H Alkaline Phosphatase Lactate Dehydrogenase Total Creatine Kinase Troponin T C-Reactive Protein Total Protein 6.1 L Albumin 3.7 L Triglycerides HDL Cholesterol Arterial Blood Glucose Arterial Blood Ionized Calcium Urine WBC (Auto) Vancomycin Trough Salicylates Acetaminophen Coronavirus (PCR) 08/06/21 08/07/21 08/07/21 11:55 04:53 04:53 WBC RBC 3.64 L Hgb Hct RDW 19.2 H Lymph % (Auto) Lymph # (Auto) Seg Neutrophils % Seg Neuts % (Manual) Lymphocytes % (Manual) Nucleated RBC % Seg Neutrophils # Seg Neutrophils # Man Lymphocytes # (Manual) Monocytes # (Manual) PT INR D-Dimer ABG pH POC ABG pCO2 POC ABG pO2 ABG pO2 ABG O2 Saturation ABG Base Excess ABG Hemoglobin ABG Oxyhemoglobin ABG Sodium ABG Chloride ABG Glucose Oxyhemoglobin Carboxyhemoglobin Sodium 136 L Potassium Chloride Carbon Dioxide BUN 23 H Creatinine Glucose POC Glucose 109 H Calcium Magnesium Ferritin AST ALT 116 H Alkaline Phosphatase 34 L Lactate Dehydrogenase Total Creatine Kinase Troponin T C-Reactive Protein Total Protein 6.1 L Albumin 3.7 L Triglycerides HDL Cholesterol Arterial Blood Glucose Arterial Blood Ionized Calcium Urine WBC (Auto) Vancomycin Trough Salicylates Acetaminophen Coronavirus (PCR) 08/07/21 05:17 WBC RBC Hgb Hct RDW Lymph % (Auto) Lymph # (Auto) Seg Neutrophils % Seg Neuts % (Manual) Lymphocytes % (Manual) Nucleated RBC % Seg Neutrophils # Seg Neutrophils # Man Lymphocytes # (Manual) Monocytes # (Manual) PT INR D-Dimer ABG pH POC ABG pCO2 POC ABG pO2 ABG pO2 ABG O2 Saturation ABG Base Excess ABG Hemoglobin ABG Oxyhemoglobin ABG Sodium ABG Chloride ABG Glucose Oxyhemoglobin Carboxyhemoglobin Sodium Potassium Chloride Carbon Dioxide BUN Creatinine Glucose POC Glucose 109 H Calcium Magnesium Ferritin AST ALT Alkaline Phosphatase Lactate Dehydrogenase Total Creatine Kinase Troponin T C-Reactive Protein Total Protein Albumin Triglycerides HDL Cholesterol Arterial Blood Glucose Arterial Blood Ionized Calcium Urine WBC (Auto) Vancomycin Trough Salicylates Acetaminophen Coronavirus (PCR)
[2021-08-07] MEDS ORDERED: predniSONE 20 MG TAB PO SCH (10:00)
[2021-08-07] MEDS: ENOXAPARIN 100 MG/1 ML INJ SUB-Q SCH (10:44)
[2021-08-07] MEDS: FAMOTIDINE 20 MG/2 ML INJ IV SCH (10:48)
[2021-08-07] MEDS ORDERED: APIXABAN 5 MG TAB PO SCH (11:00)
--- NOTE | 2021-08-07 11:13 | Discharge Summary ---
Providers - Providers Date of Admission: 07/18/21 22:49 Date of discharge: 08/07/21 Attending physician: QUINTIN RUBI MD 07/18/21 14:41 Consult to Dietitian/Nutrition [CONS] Routine Physician Instructions: Reason For Exam: Reason for Consult: Evaluate nutritional intake Consult to Physician [CONS] Stat Comment: Dr. Salas spoke with Dr. Rome @ 1448 Consulting Provider: FRANCINE ROME Physician Instructions: Reason For Exam: resp failure Consult to Physician [CONS] Urgent Comment: Consulting Provider: DAQUAN MONSALVE Physician Instructions: Reason For Exam: resp failure suspected covid 07/18/21 22:56 Consult to Dietitian/Nutrition [CONS] Routine Physician Instructions: Assess nutrtn needs, initiate, modify, manage TF Reason For Exam: Reason for Consult: Write/Manage Tube Feeding Reason for Consult: Write/Manage Tube Feeding 07/24/21 09:46 Consult to Physician [CONS] Routine Comment: Consulting Provider: ALOK PATTERSON Physician Instructions: Reason For Exam: Tricuspid vegetation 07/29/21 07:51 Midline [Consult to PICC Line RN] [CONS] Routine Reason For Exam: midline placement Type Line:: Midline 08/02/21 11:36 Speech Therapy Evaluation and Treat [CONS] Stat Reason For Exam: evaluate swallow sp extubation 08/03/21 09:39 Physical Therapy Evaluation and Treat [CONS] Stat Comment: Reason For Exam: eval and treat 08/03/21 09:42 Occupational Therapy Evaluate and Treat [CONS] Stat Comment: Reason For Exam: eval and treat 08/05/21 13:16 Speech Therapy Evaluation and Treat [CONS] Routine Reason For Exam: revalute today Primary care physician: CANTEEN MANAGER Hospitalization Reason for admission: Acute hypoxic respiratory failure Condition: Stable Pertinent studies: Echocardiogram CT angio of the chest Hospital course: 55-year-old female history of obesity, diabetes,, anxiety and hypertension who reported to the ED on 07/18 with low oxygen saturation. Found to have bilateral pneumonia, multiple segmental pulmonary emboli and Covid. She was subsequently intubated and transferred to ICU. She completed 5 days of remdesivir and continued IV steroids until discharge. She also received [employer] on 07/20. She was anticoagulated with Lovenox. Echocardiogram showed possible tricuspid valve vegetation. It was later characterized to be right ventricular thrombus. She was extubated on 08/01 and continued to have encephalopathy. She began to clinically improve and was weaned to room air. She was discharged to family with home health services. Disposition: HOME HEALTH CARE SERVICE Final Discharge Diagnosis (Prints w/discharge instructions): Acute hypoxic respiratory failure. Pulmonary emboli. Right ventricular thrombus. COVID-19 infection. ION - Discharge Diagnoses (1) Acute encephalopathy Status: Acute (2) Multiple pulmonary emboli Status: Acute (3) Right ventricular thrombus Status: Acute Core Measure Documentation - Palliative Care Palliative Care/ Comfort Measures: Not Applicable - Core Measures Any of the following diagnoses?: DVT/PE - VTE Discharge Requirements Deep Vein Thrombosis/Pulmonary Embolism Present on Admission: Yes Has pt received <5 days of overlap therapy or INR<2.0: Yes Anticoagulant overlap therapy prescribed at discharge: Yes Contraindication No Overlap Therapy order at DC: Not Indicated - Acute [place] Discharge Requirements Aspirin at discharge: No Reason for no aspirin on DC: Patient refusal (Not indicated) DESTIN/ARB for LVSD if EF <40%: Not Applicable Reason for no DESTIN/ARB: Patient refusal (Not indicated) Beta liliana at discharge: No Reason for no beta liliana on DC: Patient refusal (Not indicated) Statin for LDL = or >100 mg/dl on DC: No (No indicated) Reason for no statin on DC: Patient refusal (Not indicated) - Heart Failure Discharge Requirements DESTIN/ARB for LVSD if EF <40%: Not Applicable Beta liliana at discharge: No Reason for no beta liliana on DC: Patient refusal (Not indicated) - Stroke Discharge Requirements Statin for LDL = or >70 mg/dl on DC: Not Applicable Reason for no statin on DC: Not Indicated Anticoag for atrial fib/atrial flutter: Not Applicable Reason for no anticoag for AF/F on DC: Not Indicated Antithrombotic for ischemic stroke: No Reason for no antithrombotic on DC: Not Indicated Exam - Physical Exam Narrative exam: GENERAL: Well-developed well-nourished. Lying in bed. CHEST/LUNGS: CTAB on room air HEART/CARDIOVASCULAR: RRR. No murmur, rubs or gallops appreciated. ABDOMEN: +BS. NT/ND. NEURO: No focal motor deficit. Follows all commands. EXTREMITIES: No cyanosis, cubbing or edema. - Constitutional Vitals: Temp Pulse Resp BP Pulse Ox 98.2 F 90 18 142/75 94 08/07/21 05:18 08/07/21 05:18 08/07/21 05:18 08/07/21 05:18 08/07/21 09:18 Plan Care Plan Goals: Follow up with Cardiology in 3 months to check the status of the thrombus in your heart. Continue taking steroid taper until complete. Follow up with Pulmonology 3 weeks after discharge. Continue taking apixaban for PE and thrombus. Assessment: Clinically improved. Ambulatory and no longer requiring supplemental oxygen. Will be discharged to family care with home health ordered. Will continue apixaban and steroid taper. Will follow up with Pulmonary, Cardiology and PCP. Follow up with: FRANCINE ROME MD [Staff Physician] - 14 Days ALOK PATTERSON MD [Staff Physician] - 11/04/21 (R ventricular thrombus. Now on AC. ) PRIMARY CAREMD [Primary Care Provider] - 3-5 Days Prescriptions: Apixaban [Eliquis] 10 mg PO Q12HR 90 Days #190 tablet predniSONE 10 mg PO .TAPER #40 tab
[2021-08-07 14:13] LABS: Hematocrit 34.5 % (30.3-42.9); Hemoglobin 11.5 gm/dl (10.1-14.3); Mean Corpuscular HGB Conc 33 % (30-34); Mean Corpuscular Volume 90 fl (79-97); Platelet Count 174 K/mm3 (140-440); Red Blood Count 3.84 M/mm3 (3.65-5.03); Red Cell Distribution Width 18.6 % (13.2-15.2)
[2021-08-07 14:23] LABS: INR 1.03 (0.87-1.13)
[2021-08-07 14:24] LABS: Partial Thromboplastin Time 28.1 Sec. (24.2-36.6)
== END 2021-08-07 18:00 | disposition home health service (06) | DRG 870 ==
LOC: ED 14:26 → CC1 22:49 → 3A 08-02 18:47
PROVIDERS: ADMIT Internal Medicine; ATTEND Student in an Organized Health Care Education/Training Program
PROC: 4A033R1 Measurement of Arterial Saturation, Peripheral, Percutaneous Approach (ICD-10-PCS; 2021-07-18)
PROC: XW033E5 Introduction of Remdesivir Anti-infective into Peripheral Vein, Percutaneous Approach, New Technology Group 5 (ICD-10-PCS; 2021-07-19)
PROC: 5A1955Z Respiratory Ventilation, Greater than 96 Consecutive Hours (ICD-10-PCS; principal; 2021-07-20)
PROC: 0BH17EZ Insertion of Endotracheal Airway into Trachea, Via Natural or Artificial Opening (ICD-10-PCS; 2021-07-20)
PROC: XW033H5 Introduction of Tocilizumab into Peripheral Vein, Percutaneous Approach, New Technology Group 5 (ICD-10-PCS; 2021-07-20)
PROC: 03HY32Z Insertion of Monitoring Device into Upper Artery, Percutaneous Approach (ICD-10-PCS; 2021-07-20)
PROC: 05HY33Z Insertion of Infusion Device into Upper Vein, Percutaneous Approach (ICD-10-PCS; 2021-07-29)
DX: A41.9 Sepsis, unspecified organism (principal); R65.21 Severe sepsis with septic shock; U07.1 COVID-19; J96.01 Acute respiratory failure with hypoxia; J12.82 Pneumonia due to coronavirus disease 2019; N17.0 Acute kidney failure with tubular necrosis; I26.99 Other pulmonary embolism without acute cor pulmonale; G93.41 Metabolic encephalopathy; D68.9 Coagulation defect, unspecified; E44.0 Moderate protein-calorie malnutrition; I24.0 Acute coronary thrombosis not resulting in myocardial infarction; E87.70 Fluid overload, unspecified; E11.65 Type 2 diabetes mellitus with hyperglycemia; Z79.84 Long term (current) use of oral hypoglycemic drugs; Z68.37 Body mass index [BMI] 37.0-37.9, adult; E66.9 Obesity, unspecified; I10 Essential (primary) hypertension; R00.1 Bradycardia, unspecified
CPT/HCPCS: 31500; 36415; 36600; 70450; 71045; 71275; 74018; 80048; 80053; 80061; 80202; 80307; 80320; 81001; 82140; 82550; 82565; 82728; 82803; 82805; 82947; 82962; 83615; 83735; 84100; 84145; 84439; 84443; 84484; 85007; 85025; 85027; 85379; 85610; 85730; 86140; 86850; 86900; 86901; 87040; 87070; 87086; 87205; 93005; 93306; 93970; 94002; 94003; 94760; 99292; G0378; G0480; J0171; J0360; J0456; J0692; J0696; J1100; J1265; J1650; J1815; J2250; J2704; J2920; J2930; J3010; J3262; J3370; J7030; J7040; J7050; J7070; J7120; J7512; Q9967; U0003

== ENCOUNTER 2022-05-09 07:48 | Outpatient (CLI) | payer OTHER ==
--- NOTE | 2022-05-10 11:48 | Mammography Report ---
DIGITAL SCREENING MAMMOGRAM WITH CAD, 05/09/2022 CLINICAL INFORMATION / INDICATION: Routine screening mammography. TECHNIQUE: Digital bilateral 2D mammography was obtained in the craniocaudal and mediolateral obliqu e projections. This examination was interpreted with the benefit of Computer-Aided Detection analysis . COMPARISON: 05/04/2020, 12/31/2018 FINDINGS: Breast Density: There are scattered areas of fibroglandular density. No dominant mass, suspicious calcifications, or architectural distortion in either breast. There has been no significant interval change. IMPRESSION: No mammographic evidence of malignancy. Follow up recommendation: Routine yearly screening mammogram. BI-RADS Category 1: NEGATIVE A "normal" or negative report should not discourage follow up or biopsy of a clinically significant f inding. A written summary of these findings will be mailed to the patient. The patient will be entered into a mammography reporting system which will generate a reminder letter for the patient's next appointmen t at the appropriate interval. The [employer] recommends yearly mammograms starting at age 40 and continuing as l brittney as a woman is in good health. Breast MRI is recommended for women with an approximate 20-25% or greater lifetime risk of breast cancer, including women with a strong family history of breast or ova aliza cancer or who have been treated for Hodgkin's disease. Signer Name: Bindu Bob MD Signed: 05/10/2022 11:08 AM Workstation Name: [id number]
== END 2022-05-09 07:49 | disposition home or self-care (01) ==
LOC: MAMMO 07:48
PROVIDERS: ATTEND Internal Medicine
DX: Z12.31 Encounter for screening mammogram for malignant neoplasm of breast (principal)
CPT/HCPCS: 77067